=== PATIENT | male | born 1990 | race Two or more races ===

== ENCOUNTER 2022-08-02 17:35 | Inpatient (IN) | payer OTHER, SELFPAY ==
--- OUTSIDE RECORDS SUMMARY | 2022-08-02 17:41 | XMS_ITS | Continuity of Care Document ---
Author Name Unknown Organization [facility] Address [address] [place] [address]- Care Team Providers Care Commercial Lending Assistant Name Role Phone Delia ACOSTA, Lamine Covington Primary Care Physician Encounter [facility] Date(s): 06/21/21 - 07/21/21 [facility] [address] [place] [address]- Allergies, Adverse Reactions, Alerts Substance Reaction Severity Status lisinopril dry cough Active Dust Mild Active Milk Products Nausea and vomiting Persistent Moderate Active cloNIDine confusion Active Immunizations Given and Recorded Vaccine Date Status Refusal Reason influenza virus vaccine, inactivated 03/19/21 Give n influenza virus vaccine, inactivated 12/30/19 Give n influenza virus vaccine, inactivated 1 10/11/11 Gi annia influenza virus vaccine, inactivated 2 12/30/10 Gi annia SARS-CoV-2 (COVID-19) mRNA BNT-162b2 vac 09/10/20 Given SARS-CoV-2 (COVID-19) mRNA BNT-162b2 vac 08/20/20 Given tetanus-diphtheria toxoids (Td) 12/30/19 Given pneumococcal 23-valent vaccine 07/19/11 Given tetanus/diphtheria/pertussis, acel(Tdap) 08/11/09 Given 1Admin Note: VIS 08/31 2Admin Note: flulaval vis given vis date 09/14/2010 Medications amLODIPine 5 mg oral tablet 5 mg, 1, tablet, By Mouth, Daily, Hold if SBP<100mm Hg, # 30 tablet, Refills 1, Tot. Refills 1, Maintenance, 06/09/21 10:32:00 EDT, Route to Pharmacy Electronically, [facility] [place], [place] - [id number], Partial fill upon patient request if... Start Date: 06/09/21 Stop Date: 08/08/21 Status: Ordered benztropine 0.5 mg oral tablet 0.5 mg, 1, tablet, By Mouth, 2 times a day, # 60 tablet, Refills 1, Tot. Refills 1, Maintenance, 06/09/21 10:36:00 EDT, Route to Pharmacy Electronically, [facility] [id number], Partial fill upon patient request if the prescrip... Start Date: 06/09/21 Status: Ordered docusate-senna 50 mg-8.6 mg oral capsule 2 capsule, By Mouth, 2 times a day, # 120 capsule, 1 Refills, Maintenance, 06/09/21 10:36:00 EDT, Capsule, [facility] [id number], Partial fill upon patient request if the prescription is for a schedule II opioid drug., 2 capsu... Start Date: 06/09/21 Status: Ordered gabapentin 600 mg oral tablet 1 tablet = 600 mg, By Mouth, 3 times a day, # 90 tablet, 1 Refills, Maintenance, 06/09/21 10:33:00 EDT, Tablet, [facility] [id number], Partial fill upon patient request if the prescription is for a schedule II opioid drug., 17... Start Date: 06/09/21 Stop Date: 08/08/21 Status: Ordered hydrOXYzine pamoate 50 mg oral capsule = 50 mg, By Mouth, Every 6 hours, PRN Anxiety, # 60 capsule, 1 Refills, Maintenance, 06/09/21 10:36:00 EDT, Capsule, [facility] [id number], Partial fill upon patient request if the prescription is for a schedule II opioid drug... Start Date: 06/09/21 Status: Ordered lamotrigine 25 mg oral tablet 25 mg, 1, tablet, By Mouth, Daily, # 30 tablet, Refills 1, Tot. Refills 1, Maintenance, 06/09/21 10:36:00 EDT, Route to Pharmacy Electronically, [facility] [id number], Partial fill upon patient request if the prescription is f... Start Date: 06/09/21 Status: Ordered loratadine 10 mg oral tablet 10 mg, 1, tablet, By Mouth, Daily, # 30 tablet, Refills 1, Tot. Refills 1, Maintenance, 06/09/21 10:33:00 EDT, Route to Pharmacy Electronically, [facility] [id number], Partial fill upon patient request if the prescription is f... Start Date: 06/09/21 Stop Date: 08/08/21 Status: Ordered losartan 25 mg oral tablet 25 mg, 1, tablet, By Mouth, Daily, Hold if SBP<100mm Hg, # 30 tablet, Refills 1, Tot. Refills 1,Maintenance, 06/09/21 10:33:00 EDT, Route to Pharmacy Electronically, [facility] [id number], Partial fill upon patient request if... Start Date: 06/09/21 Stop Date: 08/08/21 Status: Ordered MetFORMIN (Eqv-Glucophage XR) 500 mg oral tablet, extended release 1 tablet, By Mouth, Daily, for 30 days, # 30 tablet, 1 Refills, Physician Stop 08/08/21 10:34:00 EDT, 06/09/21 10:34:00 EDT, [facility] [id number], 178, cm, 06/09/21 9:53:00 EDT, Height, 140, kg, 05/17/21 19:30:00 EDT, Dry Weight Start Date: 06/09/21 Stop Date: 08/08/21 Status: Ordered Nicotine 2 mg gum = 2 mg, Chew, Every 2 hours, PRN Other, cigarette craving, # 40 each, 0 Refills, Maintenance, 06/09/21 10:36:00 EDT, Gum, [facility], [place] - [id number], Partial fill upon patient request if the prescription is for a schedule II opioid... Start Date: 06/09/21 Status: Ordered OXcarbazepine 150 mg oral tablet 150 mg, 1, tablet, By Mouth, 2 times a day, # 60 tablet, Refills 1, Tot. Refills 1, Maintenance, 06/09/21 10:34:00 EDT, Route to Pharmacy Electronically, [facility] [id number], Partial fill upon patient request if the prescrip... Start Date: 06/09/21 Status: Ordered Protonix 40 mg oral delayed release tablet = 40 mg, By Mouth, Daily before breakfast, # 30 capsule, 1 Refills, Maintenance, 06/09/21 10:35:00 EDT, EC Tablet, 178, cm, 06/09/21 9:53:00 EDT, Height, 140, kg, 05/17/21 19:30:00 EDT, Dry Weight Start Date: 06/09/21 Status: Ordered risperiDONE 3 mg oral tablet 3 mg, 1, tablet, By Mouth, Daily at bedtime, # 30 tablet, Refills 1, Tot. Refills 1, Maintenance, 06/09/21 10:35:00 EDT, Route to Pharmacy Electronically, [facility] [id number], Partial fill upon patient request if the prescri... Start Date: 06/09/21 Stop Date: 08/08/21 Status: Ordered traZODone 50 mg oral tablet 50 mg, 1, tablet, By Mouth, Daily at bedtime, # 30 tablet, Refills 1, Tot. Refills 1, Maintenance, 06/09/21 10:36:00 EDT, Route to Pharmacy Electronically, [place], [place] - [id number], Partial fill upon patient request if the prescr... 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 Repeat EGD in 5 yrs. 2Impression: 1. Mildly enlarged and diffusely echogenic liver most likely represents hepatic steatosis with a small area of focal fatty sparing adjacent to the gallbladder. No definite focal hepatic mass. 2. No sonographic evidence of cholelithiasis or acute cholecystitis. 3. Suboptimal evaluation of the pancreas due to overlying bowel gas. By undersigning and finalizing the report, the attending radiologist has personally reviewed the images and the resident's interpretation and agrees with the description of the findings. Signature Line Dictated By: Catrachita Shah MD Dictated Date/Time: 02/25/11 11:07 a Social History Social History Type Response Smoking Status Never smoker entered on: 10/02/13 Sex
--- OUTSIDE RECORDS SUMMARY | 2022-08-02 17:41 | XMS_ITS | Continuity of Care Document ---
Author Name Unknown Organization [facility] Address [address] [place] [address]- Care Team Providers Care Building Materials Sales Attendant Name Role Phone Delia ACOSTA, Lamine Covington Primary Care Physician Encounter [facility] Date(s): 05/11/22 - 06/10/22 [facility] [address] [place] [address]- Allergies, Adverse Reactions, Alerts Substance Reaction Severity Status lisinopril dry cough Active Dust Mild Active Milk Products Nausea and vomiting Persistent Moderate Active cloNIDine confusion Active Immunizations Given and Recorded Vaccine Date Status Refusal Reason [id number] 12y+ bivalent booster vax 02/07/22 Given influenza virus vaccine, inactivated 02/07/22 Give n influenza virus vaccine, inactivated 03/19/21 Give n [...] flulaval vis given vis date 09/14/2010 Medications docusate sodium 100 mg oral capsule 1 capsule, By Mouth, Daily, # 30 each, 1 Refills, Maintenance, 06/06/22 16:49:00 EDT, [facility] [place], [place] - [id number], 178anu, 06/06/22 16:31:00 EDT, Height, 101.4, kg, 01/12/22 14:14:00 EST, Dry Weight Start Date: 06/06/22 Status: Ordered ferrous fumarate 324 mg oral tablet 1 tablet = 324 mg, By Mouth, Every 48 hours, # 15 tablet, 5 Refills, Maintenance, 06/06/22 16:37:00EDT, [facility] [id number], Partial fill upon patient request if the prescription is for a schedule II opioid drug., 178, cm,... Start Date: 06/06/22 Status: Ordered folic acid 1 mg oral tablet 1, tablet, By Mouth, Daily, # 30 tablet, Refills 5, Tot. Refills 5, Maintenance, 06/06/22 16:49:00 EDT, Route to Pharmacy Electronically, [facility] [id number], 178, cm, 06/06/22 16:31:00 EDT, Height, 101.4, kg, 01/12/22 14:14... Start Date: 06/06/22 Status: Ordered gabapentin 600 mg oral tablet 1 tablet = 600 mg, By Mouth, 3 times a day, # 90 tablet, 5 Refills, Maintenance, 06/06/22 16:41:00 EDT, Tablet, [facility] [id number], Partial fill upon patient request if the prescription is for a schedule II opioid drug., 17... Start Date: 06/06/22 Stop Date: 12/03/22 Status: Ordered loratadine 10 mg oral tablet 10 mg, 1, tablet, By Mouth, Daily, # 30 tablet, Refills 3, Tot. Refills 3, Maintenance, 06/06/22 16:41:00 EDT, Route to Pharmacy Electronically, [facility] [id number], Partial fill upon patient request if the prescription is f... Start Date: 06/06/22 Stop Date: 10/04/22 Status: Ordered MiraLax oral powder for reconstitution = 17 Gm, By Mouth, Daily, dissolve in water before taking, # 527 Gm, 1 Refills, Maintenance, 06/06/22 16:49:00 EDT, REC Powder, [facility] [id number], Partial fill upon patient request if the prescription is for a schedule II... Start Date: 06/06/22 Status: Ordered multivitamin Multiple Vitamins oral tablet 1 tablet, By Mouth, Daily, # 90 tablet, 3 Refills, Maintenance, 06/06/22 16:40:00 EDT, [place], [place] - [id number], Partial fill upon patient request if the prescription is for a schedule II opioid drug., 1 tablet By Mouth Daily, 17... Start Date: 06/06/22 Status: Ordered pantoprazole 40 mg oral delayed release tablet See Instructions, TAKE 1 TABLET BY MOUTH DAILY, # 30 tablet, 2 Refills, Maintenance, 04/26/22 9:32:00 EST, 178, cm, 02/07/22 9:55:00 EST, Height, 101.4, kg, 01/12/22 14:14:00 EST, Dry Weight Start Date: 04/26/22 Status: Ordered prazosin 1 mg oral capsule 1 mg, 1, capsule, By Mouth, Daily at bedtime, # 30 tablet, Refills 0, Maintenance, 06/06/22 16:32:00 EDT, Partial fill upon patient request if the prescription is for a schedule II opioid drug. Start Date: 06/06/22 Status: Ordered risperiDONE 2 mg oral tablet 2 mg, 1, tablet, Daily at bedtime Start Date: 02/07/22 Status: Ordered Sleep pillow for snoring Sleep pillow for snoring, See Instructions, # 1 each, Refills 0, Tot. Refills 0, Maintenance, Dx: Sleep apnea G47.33 duration: lifetime, 06/03/22 16:30:00 EDT, Supply Start Date: 06/03/22 Status: Ordered traZODone 100 mg oral tablet TAKE 1 TABLET BY MOUTH ONCE DAILY AT BEDTIME FOR 7 DAYS Start Date: 02/07/22 Status: Ordered venlafaxine 150 mg oral capsule, extended release 150 mg, 1, capsule, By Mouth, Daily, # 30 capsule, Refills 0, Maintenance, 06/06/22 16:31:00 EDT, Partial fill upon patient request if the prescription is for a schedule II opioid drug. Start Date: 06/06/22 Status: Ordered Problem List Condition Confirmation Course Effective Dates Status Health Status Informant Diabetes mellitus Confirmed Active Esophageal reflux (GERD) Confirmed Active Gastric polyp 1 Confirmed Active Gynecomastia Confirmed Active Hypercholesterolemia Confirmed Active Hypertension Confirmed Active Sleep related hypoxia Confirmed Active Wenckebach Confirmed 2013 Active Morbid obesity with BMI of 45.0-49.9, adult Confirmed Active NAFLD (nonalcoholic fatty liver disease) 2 Confirmed Active Obese class I Confirmed Active Obstructive sleep apnea, Complex sleep apnea Confirmed Active BHN/CCA/Fertilizer Mixer-Tia Jarrett [phone]/Health [facility], active care coordination Confirmed Active Treatment-emergent central sleep apnea Confirmed Active 1On EGD in 03/2020. Repeat EGD [...] Status Never smoker entered on: 10/02/13 Sex Patient Care team information Care Team Personnel Name: Ela Beltrán RN Position: [facility] Nurse Member Role: Primary Care Nurse Name: Alaina Gillette RN Position: [facility] RN Member Role: Primary Care Nurse Name: Kristyn Tapia RN Position: [facility] SN RN Member Role: Primary Care Nurse Name: Lorna Gentile NP Position: [facility] Associate Professional Member Role: Primary Care Nurse Address: Address: [address] [place] [address] Name: Venus Jaramillo RN Position: [facility] RN Member Role: Primary Care Nurse Name: Flor Donnelly RN Position: [facility] RN Member Role: Primary Care Nurse Name: Ruiz Matson RN Position: [facility] RN Member Role: Primary Care Nurse Name: Belle Ames RN Position: [facility] RN Member Role: Primary Care Nurse Name: Alex Rios RN Position: [facility] RN Member Role: Primary Care Nurse Name: Daniel Hernandez III, RN Position: [facility] RN Member Role: Primary Care Nurse Name: Jordi Carter MD Position: [facility] Renal MD Member Role: Lifetime Consulting Physician Address: Address: [address] [facility] [place] [address]- [place] Name: Loren Hamlin RN Position: [facility] RN Member Role: Primary Care Nurse Name: Kenzie Martínez RN, Malia Position: [facility] RN Member Role: Primary Care Nurse Name: Jessica Dia RN Position: [facility] RN Member Role: Primary Care Nurse Name: Lamine Lin MD Position: [facility] Primary Care Physician Member Role: PCP Address: Address: [address] [facility] [place] [address]- [place] Name: Rose Abraham RN Position: [facility] Hospital Signalling And Communications Engineer Member Role: Primary Care Nurse Name: Vinod Botello MD Position: [facility] Psychiatry MD Member Role: Lifetime Consulting Physician Address: Address: [address] [place] [address]- [place] Care Team Related Persons Name: MALIA HARRIS Name: KATHLEEN JACQUES Address: home [address] [place] [address] Name: VIRGIL PARKS Address: home [address] [place] [address] Name: MICHAELA MONTENEGRO Address: home UNKNOWN Name: MIGUEL PUENTES Address: home [address] [place] [address]
--- OUTSIDE RECORDS SUMMARY | 2022-08-02 17:41 | XMS_ITS | Continuity of Care Document ---
Author Name Unknown Organization [facility] ter Address [address] [place] [address]- Care Team Providers Care Driller Hand Name Role Phone Lamine Lin MD Primary Care Physician Encounter [facility] [place]s): 07/25/22 - 07/26/[address] [address]- Encounter Diagnosis Numbness(Final) - 07/26/22 Schizophrenia(Final) - 07/26/22 Abdominal pain(Final) - 07/26/22 Discharge Disposition: Transfer to [facility] Attending Physician: Laureano Aden DO Admitting Physician: Laureano Aden DO Referring Physician: Not on Staff, Referring MD Allergies, Adverse Reactions, Alerts Substance Reaction Severity Status lisinopril dry cough Active Dust Mild Active Milk Products Nausea and vomiting Persistent Moderate Active cloNIDine confusion Active Immunizations Given and Recorded Vaccine Date Status Refusal Reason [id number] 12y+ bivalent booster vax 02/07/22 Given influenza [...] flulaval vis given vis date 09/14/2010 Medications benztropine 1 mg oral tablet TAKE 1 TABLET BY MOUTH two (2) times a day Start Date: 07/26/22 Status: Ordered docusate sodium 100 mg oral capsule 1 capsule, By Mouth, Daily, # 30 each, 1 Refills, Maintenance, 06/06/22 16:49:00 EDT, [facility] [id number], 178, cm, 06/06/22 16:31:00 EDT, Height, 101.4, kg, 01/12/22 14:14:00 EST, Dry Weight Start Date: 06/06/22 Status: Ordered ferrous fumarate 324 mg oral tablet 1 tablet = 324 mg, By Mouth, Every 48 hours, # 15 tablet, 5 Refills, Maintenance, 06/06/22 16:37:00EDT, [facility] [id number], Partial fill upon patient request if the prescription is for a schedule II opioid drug., 178, cm,... Start Date: 06/06/22 Status: Ordered folic acid 1 mg oral tablet 1, tablet, By Mouth, Daily, # 30 tablet, Refills 5, Tot. Refills 5, Maintenance, 06/06/22 16:49:00 EDT, Route to Pharmacy Electronically, [facility], [place] - [id number], 178, cm, 06/06/22 16:31:00 EDT, Height, 101.4, kg, 01/12/22 14:14... Start Date: 06/06/22 Status: Ordered gabapentin 100 mg oral capsule TAKE 1 CAPSULE BY MOUTH 3 (THREE) TIMES A DAY Start Date: 07/26/22 Status: Ordered gabapentin 100 mg oral capsule 100 mg, Capsule, By Mouth, 07/26/22 9:00:00 EDT Start Date: 07/26/22 Stop Date: 07/26/22 Status: Completed gabapentin 600 mg oral tablet 1 tablet = 600 mg, By Mouth, 3 times a day, # 90 tablet, 5 Refills, Maintenance, 06/06/22 16:41:00 EDT, Tablet, [place], [place] - [id number], Partial fill upon patient request if the prescription is for a schedule II opioid drug., 17... Start Date: 06/06/22 Stop Date: 12/03/22 Status: Ordered hydrOXYzine pamoate 50 mg oral capsule TAKE 1 CAPSULE BY MOUTH EVERY 6 HOURS NEEDED FOR ANXIETY Start Date: 07/26/22 Status: Ordered loratadine 10 mg oral tablet 10 mg, 1, tablet, By Mouth, Daily, # 30 tablet, Refills 3, Tot. Refills 3, Maintenance, 06/06/22 16:41:00 EDT, Route to Pharmacy Electronically, [facility] [id number], Partial fill upon patient request if the prescription is f... Start Date: 06/06/22 Stop Date: 10/04/22 Status: Ordered MetFORMIN (Eqv-Glucophage XR) 500 mg oral tablet, extended release TAKE 1 TABLET BY MOUTH ONCE DAILY Start Date: 07/26/22 Status: Ordered MiraLax oral powder for reconstitution = 17 Gm, By Mouth, Daily, dissolve in water before taking, # 527 Gm, 1 Refills, Maintenance, 06/06/22 16:49:00 EDT, REC Powder, [facility] [id number], Partial fill upon patient request if the prescription is for a schedule II... Start Date: 06/06/22 Status: Ordered multivitamin Multiple Vitamins oral tablet 1 tablet, By Mouth, Daily, # 90 tablet, 3 Refills, Maintenance, 06/06/22 16:40:00 EDT, [facility] [id number], Partial fill upon patient request if the prescription is for a schedule II opioid drug., 1 tablet By Mouth Daily, 17... Start Date: 06/06/22 Status: Ordered pantoprazole 40 mg oral delayed release tablet TAKE 1 TABLET BY MOUTH ONCE DAILY Start Date: 07/26/22 Status: Ordered pantoprazole 40 mg oral delayed release tablet 1 tablet, By Mouth, Daily, # 30 tablet, 2 Refills, Maintenance, 07/24/22 21:32:00 EDT, 178, cm, 06/06/22 16:31:00 EDT, Height, 101.4, kg, 01/12/22 14:14:00 EST, Dry Weight Start Date: 07/24/22 Status: Ordered prazosin 1 mg oral capsule 1 mg, 1, capsule, By Mouth, Daily at bedtime, # 30 tablet, Refills 0, Maintenance, 06/06/22 16:32:00 EDT, Partial fill upon patient request if the prescription is for a schedule II opioid drug. Start Date: 06/06/22 Status: Ordered prazosin 2 mg oral capsule TAKE 1 CAPSULE BY MOUTH ONCE DAILY AT BEDTIME Start Date: 07/26/22 Status: Ordered risperiDONE 2 mg oral tablet TAKE 1 TABLET BY MOUTH ONCE DAILY Start Date: 07/26/22 Status: Ordered risperiDONE 2 mg oral tablet [...] 7 DAYS Start Date: 02/07/22 Status: Ordered traZODone 150 mg oral tablet TAKE 1 TABLET BY MOUTH ONCE DAILY AT BEDTIME Start Date: 07/26/22 Status: Ordered venlafaxine 150 mg oral capsule, extended release 150 mg, 1, capsule, By Mouth, Daily, # 30 capsule, Refills 0, Maintenance, 06/06/22 16:31:00 EDT, Partial fill upon patient request if the prescription is for a schedule II opioid drug. Start Date: 06/06/22 Status: Ordered venlafaxine 75 mg oral capsule, extended release TAKE 3 CAPSULES BY MOUTH ONCE DAILY Start Date: 07/26/22 Status: Ordered Problem List Condition Confirmation Course [...] sleep apnea, Complex sleep apnea Confirmed Active [facility]/CCA/Gas Leak Tester-Tia Jarrett [phone]/Health shelter, active care coordination Confirmed Active Treatment-emergent central [...] Shah MD Dictated Date/Time: 02/25/11 11:07 a Vital Signs Most recent to oldest [Reference Range]: 1 2 3 Height 179 cm (07/26/22 5:17 AM) 179 cm (07/26/22 1:10 AM) 179 cm (07/25/22 8:26 PM) Oxygen Saturation [94-100 %] 100 % (07/26/22 10:55 AM) 100 % (07/26/22 7:35 AM) 100 % (07/26/22 5:17 AM) Pulse Rate [55-90 bpm] 108 bpm *H* (07/26/22 10:55 AM) 77 bpm (07/26/22 7:35 AM) 78 bpm (07/26/22 5:17 AM) Blood Pressure [90-138/55-84 mm Hg] 147/92mm Hg *H* (07/26/22 10:55 AM) 126/99mm Hg (07/26/22 7:35 AM) 134/88mm Hg (07/26/22 5:17 AM) Respiratory Rate [16-30 br/min] 18 br/min (07/26/22 10:55 AM) 17 br/min (07/26/22 7:50 AM) 18 br/min (07/26/22 7:35 AM) Temperature [96.8-100.4 DegF] 98.1 DegF (07/26/22 7:35 AM) 98.3 DegF (07/26/22 1:10 AM) 98.4 DegF (07/25/22 8:26 PM) Mode of Delivery (Oxygen) Room air (07/26/22 10:55 AM) Room air (07/26/22 7:35 AM) Room air (07/26/22 5:17 AM) Blood pressure sites Arm, left (07/26/22 10:55 AM) Arm, left (07/26/22 7:35 AM) Arm, left (07/26/22 5:17 AM) Temperature Route Oral (07/26/22 7:35 AM) Oral (07/26/22 1:10 AM) Oral (07/25/22 8:26 PM) Dry Weight Obtained Via Bed scale (07/25/22 8:26 PM) Social History Social History Type Response Smoking Status Never smoker entered on: 10/02/13 Sex Patient Care team information Care Team Personnel Name: Ela Beltrán RN Position: [facility] AMB Nurse Member Role: Primary Care Nurse Name: Alaina Gillette RN Position: [facility] RN Member Role: Primary Care Nurse Name: Kristyn Tapia RN Position: [facility] SN RN Member Role: Primary Care Nurse Name: Lorna Gentile NP Position: [facility] Associate Professional Member Role: Primary Care Nurse Address: Address: [address] [place] [address]- [place] Name: Venus Jaramillo RN Position: [facility] RN Member Role: Primary Care Nurse Name: Flor Donnelly RN Position: [facility] RN Member Role: Primary Care Nurse Name: Ruiz Matson RN Position: [facility] RN Member Role: Primary Care Nurse Name: Belle Ames RN Position: [facility] RN Member Role: Primary Care Nurse Name: Alex Rios RN Position: [facility] RN Member Role: Primary Care Nurse Name: Daniel Hernandez III, RN Position: [facility] RN Member Role: Primary Care Nurse Name: Jordi Carter MD Position: [facility] Renal MD Member Role: Lifetime Consulting Physician Address: Address: [address] [place] [address] [address] [facility], [place] [address]- [place] Name: Loren Hamlin RN Position: [facility] RN Member Role: Primary Care Nurse Name: Malia Wise RN Position: [facility] RN Member Role: Primary Care Nurse Name: Jessica Dia RN Position: [facility] RN Member Role: Primary Care Nurse Name: Lamine Lin MD Position: [facility] Physician - Primary Care Member Role: PCP Address: Address: [address] [place] [address] [place] [address]- [place] Name: Rose Abraham RN Position: [facility] Hospital Floor Surfacer Member Role: Primary Care Nurse Name: Vinod Botello MD Position: [facility] Physician - Behavioral Health Member Role: Lifetime Consulting Physician Address: Address: [address] [place] [address]- Name: *[facility], ED Attending Position: [facility] ED Attendings Patient Name: Barry Lucero Position: [facility] ED TA [facility] Name: Olga Cade RN Position: [facility] ED RN W/OE and Tasks Member Role: Patient Care Provider Name: Ava Robbins DO Position: [facility] ED Medicine MD Member Role: ED Attending Physician Address: Address: [address] [place] [address] [place] [address]- Care Team Related Persons Name: MALIA HARRIS Name: KATHLEEN JACQUES Address: home [address] [place] [address] Name: VIRGIL PARKS Address: home [address] [place] [address] Name: MICHAELA MONTENEGRO Address: home UNKNOWN Name: MIGUEL PUENTES Address: home [address] [place] [address]
--- OUTSIDE RECORDS SUMMARY | 2022-08-02 17:41 | XMS_ITS | Continuity of Care Document ---
Author Name Unknown Organization [facility] Address [address] [place] [address]- Care Team Providers Care Frickertron Checker Name Role Phone Delia ACOSTA, Lamine Covington Primary Care Physician [phone] Encounter [facility] Date(s): 10/01/19 - 10/31/19 [facility] [address] [place] [address]- [facility] Allergies, Adverse Reactions, Alerts Substance Reaction Severity Status lisinopril dry cough Active cloNIDine confusion Active Immunizations Given and Recorded Vaccine Date Status Refusal Reason influenza virus vaccine, inactivated 1 10/11/11 Gi annia influenza virus vaccine, inactivated 2 12/30/10 Gi annia pneumococcal 23-valent vaccine 07/19/11 Given tetanus/diphtheria/pertussis, acel(Tdap) 08/11/09 Given 1Admin Note: VIS 08/31 2Admin Note: flulaval vis given vis date 09/14/2010 Medications acetaminophen 325 mg oral tablet 650 mg, By Mouth, Every 4 hours, PRN, Refills 0, Maintenance, Pain , Mild, 04/04/18 9:07:07 EST Start Date: 04/04/18 Status: Ordered albuterol CFC free 90 mcg/inh inhalation aerosol 2, puffs, Inhalation, Every 4 hours, PRN, # 1 each, Refills 0, Tot. Refills 0, Maintenance, 10/15/19 15:33:00 EDT, Aerosol, Route to Pharmacy Electronically, [id number], [facility] [place], [place] - [id number], 177, cm... Start Date: 10/15/19 Status: Ordered amLODIPine 5 mg oral tablet 5 mg, 1, tablet, By Mouth, Daily, # 30 tablet, Refills 11, Tot. Refills 11, Maintenance, 05/09/19 8:48:00 EDT, Route to Pharmacy Electronically, [place], [place] -, 177, cm, 04/02/2009:47:00 EST, Height, 135, kg, 03/30/18 19:13:00 ES... Start Date: 05/09/19 Status: Ordered Coricidin HBP Chest Congestion & Cough 10 mg-200 mg oral capsule 1 capsule, By Mouth, Every 4 hours, PRN for cough, not to exceed 6 doses/day. [place] label, # 60 capsule, 0 Refills, Maintenance, 10/15/19 15:34:00 EDT, Capsule, [place], [place] - [id number], 1 capsule By Mouth Every 4 hours,PRN:for... Start Date: 10/15/19 Status: Ordered Depakote 500 mg oral enteric coated tablet 2 tablet = 1,000 mg, By Mouth, 2 times a day, # 120 tablet, 3 Refills, Maintenance, 04/19/18 15:29:27 EST, EC Tablet Start Date: 04/19/18 Stop Date: 08/17/18 Status: Ordered Flonase 50 mcg/inh nasal spray 2 sprays, Nares, Both, Daily in AM, # 16 Gm, 3 Refills, Maintenance, 08/28/19 8:53:00 EDT, [place], [place], [place] -, 2 sprays Nares, Both Daily in AM, 177, cm, 07/29/19 13:56:00 EDT, Height, 135, kg, 03/30/18 19:13:00 EST, Dry Weight Start Date: 08/28/19 Status: Ordered Freestyle Lite Lancets See Instructions, # 100 each, Refills 1, Tot. Refills 1, Maintenance, use1 x dailiy to check glucose for Type 2 Diabetes Mellitus, E11.9, 10/02/19 17:50:00 EDT, Supply, 177, cm, 07/29/19 13:56:00 EDT, Height, 135, kg, 03/30/18 19:13:00 EST, Dry Weight Start Date: 10/02/19 Stop Date: 12/01/19 Status: Ordered Freestyle Lite Monitor See Instructions, # 1 each, Refills 0, Tot. Refills 0, Maintenance, use dailiy to check glucose forType 2 Diabetes Mellitus, E11.9, 10/02/19 17:50:00 EDT, Supply, 177, cm, 07/29/19 13:56:00 EDT, Height, 135, kg, 03/30/18 19:13:00 EST, Dry Weight Start Date: 10/02/19 Stop Date: 11/01/19 Status: Ordered Freestyle Lite Test Strips See Instructions, # 100 each, Refills 1, Tot. Refills 1, Maintenance, 1x per day to check glucose for Type 2 Diabetes Mellitus, E11.9, 10/02/19 17:50:00 EDT, Supply, 177, cm, 07/29/19 13:56:00 EDT, Height, 135, kg, 03/30/18 19:13:00 EST, Dry Weight Start Date: 10/02/19 Stop Date: 12/01/19 Status: Ordered metFORMIN 500 mg oral tablet, extended release See Instructions, TAKE ONE TABLET BY MOUTH DAILY, # 30 tablet, 5 Refills, Soft Stop, 05/09/19 8:49:00 EDT, [place], [place] -, 177, cm, 04/02/19 10:47:00 EST, Height, 135, kg, 03/30/18 19:13:00 EST, Dry Weight Start Date: 05/09/19 Status: Ordered Metoprolol Tartrate 25 mg oral tablet See Instructions, TAKE 1 & 1/2 TABLETS BY MOUTH 2 (two) times a day, # 90 tablet, 3 Refills, Soft Stop, 05/09/19 8:49:00 EDT, [place], [place] -, 177, cm, 04/02/19 10:47:00 EST, Height, 135, kg, 03/30/18 19:13:00 EST, Dry Weight Start Date: 05/09/19 Status: Ordered omeprazole 20 mg oral enteric coated capsule 1 capsule = 20 mg, By Mouth, 2 times a day, # 60 capsule, 3 Refills, Soft Stop, 07/09/19 10:02:00 EDT, [place], [place] -, Dose increased 05/09/19. Label in [place]., 177, cm, 04/02/19 10:47:00 EST, Height, 135, kg, 03/30/18 19:13:00... Start Date: 07/09/19 Status: Ordered simvastatin 10 mg oral tablet See Instructions, TAKE ONE TABLET BY MOUTH DAILY AT BEDTIME, # 30 tablet, Refills 11, Tot. Refills 11, Soft Stop, 05/09/19 8:49:00 EDT, Instructions Replace Required Details, Route to Pharmacy Electronically, [facility] - [place], [place] -, 177,... Start Date: 05/09/19 Status: Ordered Problem List Condition Effective Dates Status Health Status Inform ant Esophageal reflux (GERD)(Confirmed) Active Gynecomastia(Confirmed) Active Hypercholesterolemia(Confirmed) Active Hypertension(Confirmed) Active Impaired glucose tolerance(Confirmed) Active Morbid obesity with BMI of 4 5.0-49.9, adult(Confirmed) Active NAFLD (nonalcoholic fatty li evelia disease)(Confirmed) 1 Active Obstructive sleep apnea(Confirmed) Active 1Impression: 1. Mildly enlarged and diffusely echogenic liver [...]
--- OUTSIDE RECORDS SUMMARY | 2022-08-02 17:41 | XMS_ITS | Continuity of Care Document ---
Author Name Unknown Organization [facility] ter Address [address] [place] [address]- Care Team Providers Care Director Of Hotel Operations Name Role Phone Lamine Lin MD Primary Care Physician [phone] Encounter [facility] Date(s): 05/02/21 - 05/03/[address] [address]- Encounter Diagnosis Suicide attempt(Final) - 05/03/21 Discharge Disposition: Transferred to an intermediate care faci Attending Physician: Katerina Leblanc DO Admitting Physician: Katerina Leblanc DO Referring Physician: Not on Staff, Referring [...] if SBP<100mm Hg, # 30 tablet, Refills 0, Tot. Refills 0, Maintenance, 03/29/21 14:20:00 EST, Route to Pharmacy Electronically, [facility] [id number], Partial fill upon patient request if... Start Date: 03/29/21 Stop Date: 04/28/21 Status: Ordered amLODIPine 5 mg oral tablet 5 mg, Tablet, By Mouth, 05/03/21 9:00:00 EDT Start Date: 05/03/21 Stop Date: 05/03/21 Status: Completed chlorthalidone 25 mg oral tablet 12.5 mg, 0.5, tablet, By Mouth, Daily, # 15 tablet, Refills 0, Tot. Refills 0, Maintenance, 03/29/21 14:20:00 EST, Route to Pharmacy Electronically, [facility] [id number], Partial fill upon patient request if the prescription... Start Date: 03/29/21 Stop Date: 04/28/21 Status: Ordered diclofenac 1% topical gel 1 application, Topically, 4 times a day, # 100 Gm, 0 Refills, Maintenance, 03/29/21 14:20:00 EST, Gel, [facility] [id number], Partial fill upon patient request if the prescription is for a schedule II opioid drug., 178, cm, 02... Start Date: 03/29/21 Stop Date: 04/12/21 Status: Ordered docusate sodium 100 mg oral capsule 100 mg, 1, capsule, By Mouth, Daily, # 30 capsule, Refills 0, Tot. Refills 0, Maintenance, 03/29/2213:21:00 EST, Route to Pharmacy Electronically, [facility] [id number], Partial fill upon patient request if the prescription i... Start Date: 03/29/21 Stop Date: 04/28/21 Status: Ordered Flonase 50 mcg/inh nasal spray 2 sprays = 100 mcg, Nares, Both, Daily, # 16 Gm, 0 Refills, Maintenance, 03/29/21 14:21:00 EST, Nasal [place], [facility] [id number], Partial fill upon patient request if the prescription is for a schedule II opioid drug., 2 spr... Start Date: 03/29/21 Stop Date: 04/12/21 Status: Ordered folic acid 1 mg oral tablet 1 mg, 1, tablet, By Mouth, Daily, # 30 tablet, Refills 0, Tot. Refills 0, Maintenance, 03/29/21 14:21:00 EST, Route to Pharmacy Electronically, [facility] [id number], Partialfill upon patient request if the prescription is fo... Start Date: 03/29/21 Stop Date: 04/28/21 Status: Ordered gabapentin 300 mg oral capsule 600 mg, Capsule, By Mouth, 05/03/21 15:00:00 EDT Start Date: 05/03/21 Stop Date: 05/03/21 Status: Completed gabapentin 600 mg oral tablet 1 tablet = 600 mg, By Mouth, 3 times a day, # 90 tablet, 0 Refills, Maintenance, 03/29/21 14:25:00 EST, Tablet, [facility] [id number], Partial fill upon patient request if the prescription is for a schedule II opioid drug., 17... Start Date: 03/29/21 Stop Date: 04/28/21 Status: Ordered lidocaine 5% topical film 1 film, Topically, Daily, knee pain, # 30 film, 0 Refills, Maintenance, 03/29/21 14:22:00 EST, [place], [facility] [id number], Partial fill upon patient request if the prescription is for a schedule II opioid drug., 1 film Topic... Start Date: 03/29/21 Stop Date: 04/28/21 Status: Ordered loratadine 10 mg oral tablet 10 mg, 1, tablet, By Mouth, Daily, # 30 tablet, Refills 0, Tot. Refills 0, Maintenance, 03/29/21 14:21:00 EST, Route to Pharmacy Electronically, [facility] [id number], Partial fill upon patient request if the prescription is f... Start Date: 03/29/21 Stop Date: 04/28/21 Status: Ordered losartan 25 mg oral tablet 25 mg, 1, tablet, By Mouth, Daily, Hold if SBP<100mm Hg, # 30 tablet, Refills 0, Tot. Refills 0,Maintenance, 03/29/21 14:21:00 EST, Route to Pharmacy Electronically, [facility] [id number], Partial fill upon patient request if... Start Date: 03/29/21 Stop Date: 04/28/21 Status: Ordered MetFORMIN (Eqv-Glucophage XR) 500 mg oral tablet, extended release 1 tablet, By Mouth, Daily, for 30 days, # 30 tablet, 11 Refills, Physician Stop 03/24/22 14:21:00 EST, 03/29/21 14:21:00 EST, [facility] [id number], 178, cm, 03/29/21 9:32:00EST, Height, 152.6, kg, 03/18/21 22:03:00 EST, Dry... Start Date: 03/29/21 Stop Date: 03/24/22 Status: Ordered OXcarbazepine 300 mg oral tablet 300 mg, 1, tablet, By Mouth, 2 times a day, # 60 tablet, Refills 0, Tot. Refills 0, Maintenance, 03/29/21 14:21:00 EST, Route to Pharmacy Electronically, [facility] [id number], Partial fill upon patient request if the prescrip... Start Date: 03/29/21 Stop Date: 04/28/21 Status: Ordered pantoprazole 40 mg oral delayed release tablet See Instructions, TAKE ONE TABLET BY MOUTH EVERY DAY, # 30 tablet, 1 Refills, Maintenance, 03/29/2213:20:00 EST, 178, cm, 03/29/21 9:32:00 EST, Height, 152.6, kg, 03/18/21 22:03:00 EST, Dry Weight Start Date: 03/29/21 Status: Ordered risperiDONE 2 mg oral tablet 2 mg, 1, tablet, By Mouth, Daily, # 30 tablet, Refills 0, Tot. Refills 0, Maintenance, 03/29/21 14:25:00 EST, Route to Pharmacy Electronically, [facility] [id number], Partialfill upon patient request if the prescription is fo... Start Date: 03/29/21 Stop Date: 04/28/21 Status: Ordered risperiDONE 3 mg oral tablet 3 mg, 1, tablet, By Mouth, Daily at bedtime, # 30 tablet, Refills 0, Tot. Refills 0, Maintenance, 03/29/21 14:26:00 EST, Route to Pharmacy Electronically, [facility] [place], [place] - [id number], Partial fill upon patient request if the prescri... 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 Morbid obesity with BMI of 4 5.0-49.9, adult(Confirmed) Active NAFLD (nonalcoholic fatty li evelia disease)(Confirmed) 2 Active Obstructive sleep apnea, Com plex sleep apnea(Confirmed) Active BHN/CCA/Community Support Associate-Remedios MárquezEzojbmz-[phone]/Health jail, active care coordination(Confirmed) Active Severe obesity(Confirmed) Active [...] to oldest [Reference Range]: 1 2 3 Oxygen Saturation [94-100 %] 97 % (05/03/21 6:49 PM) 98 % (05/03/21 2:13 PM) 95 % (05/03/21 7:47 AM) Pulse Rate [55-90 bpm] 75 bpm (05/03/21 6:49 PM) 76 bpm (05/03/21 2:13 PM) 75 bpm (05/03/21 7:47 AM) Blood Pressure [90-138/55-84 mm Hg] 141/90mm Hg *H* (3/14/22 6:49 PM) 128/76mm Hg (05/03/21 2:13 PM) 127/79mm Hg (05/03/21 8:24 AM) Respiratory Rate [16-30 br/min] 16 br/min (05/03/21 6:49 PM) 16 br/min (05/03/21 4:10 PM) 16 br/min (05/03/21 3:10 PM) Temperature [96.8-100.4 DegF] 97.5 DegF (05/03/21 6:49 PM) 97.9 DegF (05/03/21 2:13 PM) 97.8 DegF (05/03/21 7:47 AM) Liters per Minute 1 L/min (05/02/21 12:46 PM) Mode of Delivery (Oxygen) Room air (05/03/21 6:49 PM) Room air (05/03/21 2:13 PM) Room air (05/03/21 7:47 AM) Temperature Route Oral (05/03/21 6:49 PM) Oral (05/03/21 2:13 PM) Oral (05/03/21 7:47 AM) Social History Social History Type Response Smoking Status Never smoker entered on: 10/02/13 Sex
--- OUTSIDE RECORDS SUMMARY | 2022-08-02 17:41 | XMS_ITS | Continuity of Care Document ---
Author Name Unknown Organization [facility] Address [address] [place] [address]- Care Team Providers Care Hemodialysis Charge Nurse Name Role Phone Delia ACOSTA, Lamine Covington Primary Care Physician [facility] Date[facility]s): 06/03/20 - 07/22/20 [facility] [address], [place] [address] Attending Physician: Lamine Lin MD Admitting Physician: Lamine Lin MD Allergies, Adverse Reactions, Alerts Substance Reaction Severity Status lisinopril dry cough Active cloNIDine confusion Active Immunizations Given and Recorded Vaccine Date Status Refusal Reason tetanus-diphtheria toxoids (Td) 12/30/19 Given influenza virus vaccine, inactivated 12/30/19 Give n [...] each, Refills 0, Tot. Refills 0, Maintenance, 01/02/20 18:13:00 EST, Aerosol, Route to Pharmacy Electronically, [id number], [place], [place] - [id number], 177, cm... Start Date: 01/02/20 Status: Ordered amLODIPine 5 mg oral tablet 5 mg, 1, tablet, By Mouth, Daily, # 30 tablet, Refills 11, Tot. Refills 11, Maintenance, 02/03/20 16:45:00 EST, Route to Pharmacy Electronically, [facility], [facility] [id number], 178, cm, 01/28/20 6:28:00 EST, Height, 158, kg, 01/07/20... Start Date: 02/03/20 Status: Ordered benztropine 1 mg oral tablet 1 mg, 1, tablet, Daily at bedtime, via psychiatry Dr Andres Ferro, Refills 0, Maintenance, 12/18/19 9:44:00 EDT Start Date: 12/18/19 Status: Ordered cetirizine 10 mg oral tablet 1 tablet = 10 mg, By Mouth, Daily, # 30 tablet, 5 Refills, Maintenance, 07/01/20 9:26:00 EDT, Tablet, [facility], [facility] [id number], Label in Burkinan., 177.9, cm, 04/16/20 13:38:00 EST, Height, 153.2, kg, 03/16/20 12:24:00 EST, Dry We... Start Date: 07/01/20 Status: Ordered chlorthalidone 25 mg oral tablet 12.5 mg, 0.5, tablet, By Mouth, Daily, # 15 tablet, Refills 5, Tot. Refills 5, Maintenance, 02/04/20 15:34:00 EST, Route to Pharmacy Electronically, [facility], [facility] [id number], Partial fill upon patient request if the prescription... Start Date: 02/04/20 Status: Ordered divalproex sodium 500 mg oral tablet, extended release 2 tablet = 1,000 mg, Daily at bedtime, via psychiatry Dr Andres Ferro, 0 Refills, Maintenance, 12/18/19 9:44:00 EDT Start Date: 12/18/19 Status: Ordered Flonase 50 mcg/inh nasal spray 1 sprays, Nares, Both, 2 times a day, # 9.9 mL, 0 Refills, Maintenance, 02/24/20 11:15:00 EST, [place], [facility], [place] - [id number], 1 sprays Nares, Both 2 times a day, 178, cm, 02/04/20 15:21:00 EST, Height, 158, kg, 01/07/20 14:48:0... Start Date: 02/24/20 Status: Ordered Flovent Diskus 100 mcg/inh inhalation powder 1 puffs, Inhalation, 2 times a day, # 60 each, 0 Refills, Maintenance, 03/03/20 10:49:00 EST, Powder, [facility], [place] - [id number], Partial fill upon patient request if the prescription is for a schedule II opioid drug., 1 puffs Inha... Start Date: 03/03/20 Status: Ordered gabapentin 600 mg oral tablet 1 tablet = 600 mg, By Mouth, 3 times a day, # 90 tablet, 0 Refills, Maintenance, 07/17/20 14:13:00 EDT, Tablet, [place], [place] - [id number], Partial fill upon patient request if the prescription is for a schedule II opioid drug., 17... Start Date: 07/17/20 Status: Ordered GuaiFENesin DM 20 mg-200 mg/10 mL oral liquid 10 mL, By Mouth, Every 4 hours, PRN as needed for cough, not to exceed 6 doses/day, # 120 mL, 0 Refills, Maintenance, 03/03/20 11:05:00 EST, Liquid, [facility], [place] - [id number], Partial fill upon patient request if the prescription... Start Date: 03/03/20 Status: Ordered metFORMIN 500 mg oral tablet, extended release 1 tablet = 500 mg, By Mouth, Daily, # 30 tablet, 11 Refills, Maintenance, 02/03/20 16:44:00 EST, ERTablet, [facility], [place] - [id number], Partial fill upon patient request if the prescription is for a schedule II opioid drug., 178, c... Start Date: 02/03/20 Status: Ordered olanzapine 15 mg oral tablet 1 tablet = 15 mg, By Mouth, Daily at bedtime, via psychiatry Dr Andres Ferro, 0 Refills, Maintenance, 12/18/19 9:44:00 EDT Start Date: 12/18/19 Status: Ordered olanzapine 5 mg oral tablet 5 mg, 1, tablet, By Mouth, Daily in AM, # 30 tablet, Refills 0, Tot. Refills 0, Maintenance, 01/28/20 9:40:00 EST, Route to Pharmacy Electronically, [facility], Partial fill upon patient request if the prescription is for a schedule II o... Start Date: 01/28/20 Status: Ordered omeprazole 20 mg oral enteric coated capsule 1 capsule = 20 mg, By Mouth, 2 times a day, # 60 capsule, 2 Refills, Soft Stop, 07/01/20 9:26:00 EDT, [facility] [place], [place] - [id number], Label in Burkinan, 177.9, cm, 04/16/20 13:38:00 EST, Height, 153.2, kg, 03/16/20 12:24:00 EST, Dry Weight Start Date: 07/01/20 Status: Ordered wedge pillows wedge pillows, See Instructions, # 2 each, Refills 0, Tot. Refills 0, Maintenance, use 1 pillow to elevate head and 1 pillow to elevate left leg duration: lifetime dx: ESHA, SOB, LEFT LEG PAIN LEFT LEG SWELLING G46.33,RO6.2.M79.605,R22.42, 06/0... 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 Mildly enlarged and diffusely [...]
--- OUTSIDE RECORDS SUMMARY | 2022-08-02 17:41 | XMS_ITS | Continuity of Care Document ---
Author Name Unknown Organization [facility] Address [address] [place] [address]- Care Team Providers Care Etl Programmer Name Role Phone Lamine Lin MD Primary Care Physician Encounter [facility] [place] Date(s): 04/28/21 - 06/02/21 [facility] [address] [place] [address]- Attending Physician: Not on Staff, Attending MD Referring Physician: Lamine Lin MD Allergies, Adverse Reactions, [...] tablet, Refills 0, Tot. Refills 0, Maintenance, 05/17/21 23:47:00 EDT, Route to Pharmacy Electronically, [facility] [place], [place] - [id number], Partial fill upon patient request if... Start Date: 05/17/21 Stop Date: 06/16/21 Status: Ordered chlorthalidone 25 mg oral tablet 12.5 mg, 0.5, tablet, By Mouth, Daily, # 15 tablet, Refills 0, Tot. Refills 0, Maintenance, 05/17/21 23:47:00 EDT, Route to Pharmacy Electronically, [facility] [id number], Partial fill upon patient request if the prescription... Start Date: 05/17/21 Stop Date: 06/16/21 Status: Ordered diclofenac 1% topical gel 1 application, Topically, 4 times a day, # 100 Gm, 0 Refills, Maintenance, 05/17/21 23:47:00 EDT, Gel, [facility] [id number], Partial fill upon patient request if the prescription is for a schedule II opioid drug., 179, cm, 03... Start Date: 05/17/21 Stop Date: 05/31/21 Status: Ordered docusate sodium 100 mg oral capsule 100 mg, 1, capsule, By Mouth, Daily, # 30 capsule, Refills 0, Tot. Refills 0, Maintenance, 05/17/2222:47:00 EDT, Route to Pharmacy Electronically, [facility] [id number], Partial fill upon patient request if the prescription i... Start Date: 05/17/21 Stop Date: 06/16/21 Status: Ordered Flonase 50 mcg/inh nasal spray 2 sprays = 100 mcg, Nares, Both, Daily, # 16 Gm, 0 Refills, Maintenance, 05/17/21 23:47:00 EDT, Nasal Soph[place], [facility] [id number], Partial fill upon patient request if the prescription is for a schedule II opioid drug., 2 spr... Start Date: 05/17/21 Stop Date: 05/31/21 Status: Ordered folic acid 1 mg oral tablet 1 mg, 1, tablet, By Mouth, Daily, # 30 tablet, Refills 0, Tot. Refills 0, Maintenance, 05/17/21 23:47:00 EDT, Route to Pharmacy Electronically, [facility] [id number], Partialfill upon patient request if the prescription is fo... Start Date: 05/17/21 Stop Date: 06/16/21 Status: Ordered gabapentin 600 mg oral tablet 1 tablet = 600 mg, By Mouth, 3 times a day, # 90 tablet, 0 Refills, Maintenance, 05/17/21 23:47:00 EDT, Tablet, [facility] [id number], Partial fill upon patient request if the prescription is for a schedule II opioid drug., 17... Start Date: 05/17/21 Stop Date: 06/16/21 Status: Ordered lidocaine 5% topical film 1 film, Topically, Daily, knee pain, # 30 film, 0 Refills, Maintenance, 05/17/21 23:46:00 EDT, [place], [facility] [id number], Partial fill upon patient request if the prescription is for a schedule II opioid drug., 1 film Topic... Start Date: 05/17/21 Stop Date: 06/16/21 Status: Ordered loratadine 10 mg oral tablet 10 mg, 1, tablet, By Mouth, Daily, # 30 tablet, Refills 0, Tot. Refills 0, Maintenance, 05/17/21 23:46:00 EDT, Route to Pharmacy Electronically, [facility] [id number], Partial fill upon patient request if the prescription is f... Start Date: 05/17/21 Stop Date: 06/16/21 Status: Ordered losartan 25 mg oral tablet 25 mg, 1, tablet, By Mouth, Daily, Hold if SBP<100mm Hg, # 30 tablet, Refills 0, Tot. Refills 0,Maintenance, 03/29/21 14:21:00 EST, Route to Pharmacy Electronically, [facility] [id number], Partial fill upon patient request if... Start Date: 03/29/21 Stop Date: 04/28/21 Status: Ordered MetFORMIN (Eqv-Glucophage XR) 500 mg oral tablet, extended release 1 tablet, By Mouth, Daily, for 30 days, # 30 tablet, 11 Refills, Physician Stop 05/12/22 23:46:00 EDT, 05/17/21 23:46:00 EDT, [facility] [id number], 179, cm, 05/17/21 19:30:00 EDT, Height, 140, kg, 05/17/21 19:30:00 EDT, Dry W... Start Date: 05/17/21 Stop Date: 05/12/22 Status: Ordered OXcarbazepine 300 mg oral tablet 300 mg, 1, tablet, By Mouth, 2 times a day, # 60 tablet, Refills 0, Tot. Refills 0, Maintenance, 05/17/21 23:45:00 EDT, Route to Pharmacy Electronically, [facility] [id number], Partial fill upon patient request if the prescrip... Start Date: 05/17/21 Stop Date: 06/16/21 Status: Ordered pantoprazole 40 mg oral delayed release tablet See Instructions, TAKE ONE TABLET BY MOUTH EVERY DAY, # 30 tablet, 1 Refills, Maintenance, 05/17/2222:45:00 EDT, 179, cm, 05/17/21 19:30:00 EDT, Height, 140, kg, 05/17/21 19:30:00 EDT, Dry Weight Start Date: 05/17/21 Status: Ordered risperiDONE 2 mg oral tablet 2 mg, 1, tablet, By Mouth, Daily, # 30 tablet, Refills 0, Tot. Refills 0, Maintenance, 05/17/21 23:46:00 EDT, Route to Pharmacy Electronically, [facility] [id number], Partialfill upon patient request if the prescription is fo... Start Date: 05/17/21 Stop Date: 06/16/21 Status: Ordered risperiDONE 3 mg oral tablet 3 mg, 1, tablet, By Mouth, Daily at bedtime, # 30 tablet, Refills 0, Tot. Refills 0, Maintenance, 05/17/21 23:46:00 EDT, Route to Pharmacy Electronically, [facility] [id number], Partial fill upon patient request if the prescri... 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
--- OUTSIDE RECORDS SUMMARY | 2022-08-02 17:41 | XMS_ITS | Continuity of Care Document ---
Author Name Unknown Organization [facility] Address [address] [place] [address]- Care Team Providers Care Flasher Adjuster Name Role Phone Delia ACOSTA, Lamine Covington Primary Care Physician [facility] Date[facility]s): 11/27/19 - 12/27/19 [facility] [address] [place], [place] [address] Allergies, Adverse Reactions, Alerts Substance Reaction Severity [...] 15:33:00 EDT, Aerosol, Route to Pharmacy Electronically, [id number], [facility] - [place], [place] - [id number], 177, cm... Start Date: 10/15/19 Status: Ordered amLODIPine 5 mg oral tablet 5 mg, 1, tablet, By Mouth, Daily, # 30 tablet, Refills 11, Tot. Refills 11, Maintenance, 05/09/19 8:48:00 EDT, Route to Pharmacy Electronically, [place], [place] -, 177, cm, 04/02/2009:47:00 EST, Height, 135, kg, 03/30/18 19:13:00 ES... Start Date: 05/09/19 Status: Ordered benztropine 1 mg oral tablet via psychiatry Dr Andres Ferro, Refills 0, Maintenance, 12/18/19 9:44:00 EDT Start Date: 12/18/19 Status: Ordered cetirizine 10 mg oral tablet 1 tablet = 10 mg, By Mouth, Daily, # 30 tablet, 1 Refills, Maintenance, 11/08/19 14:15:00 EDT, Tablet, [place], [place] - [id number], Label in [place]., 177, cm, 10/15/19 14:42:00 EDT, Height, 135, kg, 03/30/18 19:13:00 EST, Dry Weight Start Date: 11/08/19 Status: Ordered divalproex sodium 500 mg oral tablet, extended release via psychiatry Dr Andres Ferro, 0 Refills, Maintenance, 12/18/19 9:44:00 EDT Start Date: 12/18/19 Status: Ordered Flonase 50 mcg/inh nasal spray 2 sprays, Nares, Both, Daily in AM, # 16 Gm, 3 Refills, Maintenance, 08/28/19 8:53:00 EDT, [place], [place], [place] -, 2 sprays Nares, Both Daily in AM, 177, cm, 07/29/19 13:56:00 EDT, Height, 135, kg, 03/30/18 19:13:00 EST, Dry Weight Start Date: 08/28/19 Status: Ordered Flonase 50 mcg/inh nasal spray 1 sprays, Nares, Both, 2 times a day, # 9.9 mL, 0 Refills, Maintenance, 12/18/19 17:38:00 EDT, [place], [place], [place] - [id number], 1 sprays Nares, Both 2 times a day, 177, cm, 10/15/19 14:42:00 EDT, Height, 135, kg, 03/30/18 19:13:0... Start Date: 12/18/19 Status: Ordered metFORMIN 500 mg oral tablet, extended release See Instructions, TAKE ONE TABLET BY MOUTH DAILY, # 30 tablet, 5 Refills, Soft Stop, 05/09/19 8:49:00 EDT, [place], [place] -, 177, cm, 04/02/19 10:47:00 EST, Height, 135, kg, 03/30/18 19:13:00 EST, Dry Weight Start Date: 05/09/19 Status: Ordered Metoprolol Tartrate 25 mg oral tablet See Instructions, TAKE 1 & 1/2 TABLETS BY MOUTH 2 (two) times a day, # 90 tablet, 3 Refills, Soft Stop, 05/09/19 8:49:00 EDT, [place], [place] -, 177, cm, 04/02/19 10:47:00 EST, Height, 135, kg, 03/30/18 19:13:00 EST, Dry Weight Start Date: 05/09/19 Status: Ordered olanzapine 15 mg oral tablet via psychiatry Dr Andres Ferro, 0 Refills, Maintenance, 12/18/19 9:44:00 EDT Start Date: 12/18/19 Status: Ordered omeprazole 20 mg oral enteric coated capsule 1 capsule = 20 mg, By Mouth, 2 times a day, # 60 capsule, 3 Refills, Soft Stop, 07/09/19 10:02:00 EDT, [facility], Dose increased 05/09/19. Label in [place]., 177, cm, 04/02/19 10:47:00 EST, Height, 135, kg, 03/30/18 19:13:00... Start Date: 07/09/19 Status: Ordered simvastatin 10 mg oral tablet See Instructions, TAKE ONE TABLET BY MOUTH DAILY AT BEDTIME, # 30 tablet, Refills 11, Tot. Refills 11, Soft Stop, 05/09/19 8:49:00 EDT, Instructions Replace Required Details, Route to Pharmacy Electronically, [place], [place] -, 177,... 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 Mildly enlarged [...]
--- OUTSIDE RECORDS SUMMARY | 2022-08-02 17:41 | XMS_ITS | Continuity of Care Document ---
Author Name Unknown Organization [facility] Address [address] [place] [address]- Care Team Providers Care Line Cleaner Name Role Phone Lamine Lin MD Primary Care Physician [facility]): 07[facility]19 - 07/16/19 [facility] [address] [place] [address]- [place] Encounter Diagnosis Nausea(Discharge Diagnosis) - 07/09/19 Attending Physician: Lamine Lin MD Allergies, Adverse Reactions, [...] 9:07:07 EST Start Date: 04/04/18 Status: Ordered amLODIPine 5 mg oral tablet 5 mg, 1, tablet, By Mouth, Daily, # 30 tablet, Refills 11, Tot. Refills 11, Maintenance, 05/09/19 8:48:00 EDT, Route to Pharmacy Electronically, [facility] [place], [place] -, 177, cm, 04/02/2009:47:00 EST, Height, 135, kg, 03/30/18 19:13:00 ES... Start Date: 05/09/19 Status: Ordered Depakote 500 mg oral enteric coated tablet 2 tablet = 1,000 mg, By Mouth, 2 times a day, # 120 tablet, 3 Refills, Maintenance, 04/19/18 15:29:27 EST, EC Tablet Start Date: 04/19/18 Stop Date: 08/17/18 Status: Ordered Flonase 50 mcg/inh nasal spray 2 sprays, Nares, Both, Daily in AM, # 16 Gm, 3 Refills, Maintenance, 05/09/19 8:47:00 EDT, [place], [place], [place] -, 2 sprays Nares, Both Daily in AM, 177, cm, 04/02/19 10:47:00 EST, Height, 135, kg, 03/30/18 19:13:00 EST, Dry Weight Start Date: 05/09/19 Status: Ordered metFORMIN 500 mg oral tablet, extended release See Instructions, TAKE ONE TABLET BY MOUTH DAILY, # 30 tablet, 5 Refills, Soft Stop, 05/09/19 8:49:00 EDT, [place], [place] -, 177, cm, 04/02/19 10:47:00 EST, Height, 135, kg, 03/30/18 19:13:00 EST, Dry Weight Start Date: 05/09/19 Status: Ordered Metoprolol Tartrate 25 mg oral tablet See Instructions, TAKE 1 & 1/2 TABLETS BY MOUTH 2 (two) times a day, # 90 tablet, 3 Refills, Soft Stop, 05/09/19 8:49:00 EDT, [place], [place] -, 177, cm, 04/02/19 10:47:00 EST, Height, 135, kg, 03/30/18 19:13:00 EST, Dry Weight Start Date: 05/09/19 Status: Ordered omeprazole 20 mg oral enteric coated capsule 1 capsule = 20 mg, By Mouth, 2 times a day, # 60 capsule, 3 Refills, Soft Stop, 07/09/19 10:02:00 EDT, [place], [place] -, Dose increased 05/09/19. Label in [place]., 177, cm, 04/02/19 10:47:00 EST, Height, 135, kg, 03/30/18 19:13:00... Start Date: 07/09/19 Status: Ordered simvastatin 10 mg oral tablet See Instructions, TAKE ONE TABLET BY MOUTH DAILY AT BEDTIME, # 30 tablet, Refills 11, Tot. Refills 11, Soft Stop, 05/09/19 8:49:00 EDT, Instructions Replace Required Details, Route to Pharmacy Electronically, [facility] - [place], [place] -, 177,... Start Date: 05/09/19 Status: [...] Shah MD Dictated Date/Time: 02/25/11 11:07 a Diagnosis Diagnosis Type Effective Dates Health Status Clini sharita Service Informant Nausea Discharge Diagnosis 07/09/19 Social History Social History Type Response Smoking Status Never smoker entered on: 10/02/13 Sex
--- OUTSIDE RECORDS SUMMARY | 2022-08-02 17:41 | XMS_ITS | Continuity of Care Document ---
Author Name Unknown Organization [facility] Address [address] [place] [address]- Care Team Providers Care Antisqueak Chalker Name Role Phone Lamine Lin MD Primary Care Physician Encounter [facility] [facility] [id number] Date(s): 04/14/21 - 06/02/21 [facility] [address], [place] [address] Attending Physician: Lamine Lin MD Admitting [...] 05/17/21 23:47:00 EDT, Route to Pharmacy Electronically, [place], [place] - [id number], Partial fill upon patient request if... Start Date: 05/17/21 Stop Date: 06/16/21 Status: Ordered chlorthalidone 25 mg oral tablet 12.5 mg, 0.5, tablet, By Mouth, Daily, # 15 tablet, Refills 0, Tot. Refills 0, Maintenance, 05/17/21 23:47:00 EDT, Route to Pharmacy Electronically, [facility] [place] [id number], Partial fill upon patient request if the prescription... Start Date: 05/17/21 Stop Date: 06/16/21 Status: Ordered diclofenac 1% topical gel 1 application, Topically, 4 times a day, # 100 Gm, 0 Refills, Maintenance, 05/17/21 23:47:00 EDT, Gel, [facility] [place] [id number], Partial fill upon patient request if the prescription is for a schedule II opioid drug., 179, cm, 03... Start Date: 05/17/21 Stop Date: 05/31/21 Status: Ordered docusate sodium 100 mg oral capsule 100 mg, 1, capsule, By Mouth, Daily, # 30 capsule, Refills 0, Tot. Refills 0, Maintenance, 05/17/2222:47:00 EDT, Route to Pharmacy Electronically, [facility] [place] [id number], Partial fill upon patient request if the prescription i... Start Date: 05/17/21 Stop Date: 06/16/21 Status: Ordered Flonase 50 mcg/inh nasal spray 2 sprays = 100 mcg, Nares, Both, Daily, # 16 Gm, 0 Refills, Maintenance, 05/17/21 23:47:00 EDT, Nasal [place], [facility] [place] [id number], Partial fill upon patient request if the prescription is for a schedule II opioid drug., 2 spr... Start Date: 05/17/21 Stop Date: 05/31/21 Status: Ordered folic acid 1 mg oral tablet 1 mg, 1, tablet, By Mouth, Daily, # 30 tablet, Refills 0, Tot. Refills 0, Maintenance, 05/17/21 23:47:00 EDT, Route to Pharmacy Electronically, [facility] [place] [id number], Partialfill upon patient request if the prescription is fo... Start Date: 05/17/21 Stop Date: 06/16/21 Status: Ordered gabapentin 600 mg oral tablet 1 tablet = 600 mg, By Mouth, 3 times a day, # 90 tablet, 0 Refills, Maintenance, 05/17/21 23:47:00 EDT, Tablet, [facility] [id number], Partial fill upon patient request if the prescription is for a schedule II opioid drug., 17... Start Date: 05/17/21 Stop Date: 06/16/21 Status: Ordered lidocaine 5% topical film 1 film, Topically, Daily, knee pain, # 30 film, 0 Refills, Maintenance, 05/17/21 23:46:00 EDT, Patch, [facility] [id number], Partial fill upon patient request if the prescription is for a schedule II opioid drug., 1 film Topic... Start Date: 05/17/21 Stop Date: 06/16/21 Status: Ordered loratadine 10 mg oral tablet 10 mg, 1, tablet, By Mouth, Daily, # 30 tablet, Refills 0, Tot. Refills 0, Maintenance, 05/17/21 23:46:00 EDT, Route to Pharmacy Electronically, [facility] [id number], Partial fill upon patient request if the prescription is f... Start Date: 05/17/21 Stop Date: 06/16/21 Status: Ordered losartan 25 mg oral tablet 25 mg, 1, tablet, By Mouth, Daily, Hold if SBP<100mm Hg, # 30 tablet, Refills 0, Tot. Refills 0,Maintenance, 03/29/21 14:21:00 EST, Route to Pharmacy Electronically, [facility] [id number], Partial fill upon patient request if... Start Date: 03/29/21 Stop Date: 04/28/21 Status: Ordered MetFORMIN (Eqv-Glucophage XR) 500 mg oral tablet, extended release 1 tablet, By Mouth, Daily, for 30 days, # 30 tablet, 11 Refills, Physician Stop 05/12/22 23:46:00 EDT, 05/17/21 23:46:00 EDT, [facility] [id number], 179, cm, 05/17/21 19:30:00 EDT, Height, 140, kg, 05/17/21 19:30:00 EDT, Dry W... Start Date: 05/17/21 Stop Date: 05/12/22 Status: Ordered OXcarbazepine 300 mg oral tablet 300 mg, 1, tablet, By Mouth, 2 times a day, # 60 tablet, Refills 0, Tot. Refills 0, Maintenance, 05/17/21 23:45:00 EDT, Route to Pharmacy Electronically, [facility] [id number], Partial fill upon patient request if the [...] 05/17/21 23:46:00 EDT, Route to Pharmacy Electronically, [facility] [id number], Partialfill upon patient request if the prescription is fo... Start Date: 05/17/21 Stop Date: 06/16/21 Status: Ordered risperiDONE 3 mg oral tablet 3 mg, 1, tablet, By Mouth, Daily at bedtime, # 30 tablet, Refills 0, Tot. Refills 0, Maintenance, 05/17/21 23:46:00 EDT, Route to Pharmacy Electronically, [facility] [id number], Partial fill upon patient request if the [...] sleep apnea, Com plex sleep apnea(Confirmed) Active BHN/CCA/Certified Pedorthotist-Remedios MárquezYchhuhc-[phone]/Health usp, active care coordination(Confirmed) Active Severe obesity(Confirmed) Active [...]
--- OUTSIDE RECORDS SUMMARY | 2022-08-02 17:41 | XMS_ITS | Continuity of Care Document ---
Author Name Unknown Organization [facility] Address [address] [place] [address]- Care Team Providers Care Central Office Supervisor Name Role Phone Delia ACOSTA, Lamine Covington Primary Care Physician Encounter [facility] [place] Date(s): 12/14/20 - 01/13/21 [facility] [address], [place] [address] Allergies, Adverse Reactions, Alerts Substance Reaction Severity Status lisinopril dry cough Active cloNIDine confusion Active Immunizations Given and Recorded Vaccine Date Status Refusal Reason SARS-CoV-2 (COVID-19) mRNA BNT-162b2 vac 09/10/20 Given SARS-CoV-2 (COVID-19) mRNA BNT-162b2 vac 08/20/20 Given tetanus-diphtheria toxoids (Td) 12/30/19 Given influenza virus vaccine, inactivated 12/30/19 Give n influenza virus vaccine, inactivated 1 10/11/11 Gi annia influenza virus vaccine, inactivated 2 12/30/10 Gi annia pneumococcal 23-valent vaccine 07/19/11 Given tetanus/diphtheria/pertussis, acel(Tdap) 08/11/09 Given 1Admin Note: VIS 08/31 2Admin Note: flulaval vis given vis date 09/14/2010 Medications amLODIPine 5 mg oral tablet 10 mg, 2, tablet, By Mouth, Daily, # 60 tablet, Refills 1, Tot. Refills 1, Maintenance, 10/23/20 10:46:00 EDT, Route to Pharmacy Electronically, [facility]/pharmacy #[id number], Partial fill upon patient request if the prescription is for a schedule II opioid drug... Start Date: 10/23/20 Status: Ordered chlorthalidone 25 mg oral tablet 12.5 mg, 0.5, tablet, By Mouth, Daily, # 15 tablet, Refills 1, Tot. Refills 1, Maintenance, 10/23/20 10:48:00 EDT, Route to Pharmacy Electronically, [facility]/pharmacy #[id number], Partial fill upon patient request if the prescription is for a schedule II opioid... Start Date: 10/23/20 Status: Ordered Colace sodium 100 mg oral capsule 100 mg, 1, capsule, By Mouth, Daily in AM, # 30 capsule, Refills 1, Tot. Refills 1, Maintenance, 10/23/20 11:49:00 EDT, Route to Pharmacy Electronically, [facility]/pharmacy #[id number], Partial fill upon patientrequest if the prescription is for a schedule II op... Start Date: 10/23/20 Status: Ordered diclofenac 1% topical gel 1 application, Topically, 4 times a day, # 100 Gm, 0 Refills, Maintenance, 11/23/20 13:32:00 EDT, Gel, [facility] [place], [place] - [id number], Partial fill upon patient request if the prescription is for a schedule II opioid drug., 177, cm, 10... Start Date: 11/23/20 Status: Ordered diphenhydrAMINE 50 mg oral tablet = 50 mg, By Mouth, Every 6 hours, PRN Anxiety, # 60 tablet, 1 Refills, Maintenance, 10/23/20 10:48:00 EDT, Tablet, [facility]/pharmacy #[id number], Partial fill upon patient request if the prescription is for a schedule II opioid drug., 177, cm, 10/22/20 21:57:00... Start Date: 10/23/20 Status: Ordered folic acid 1 mg oral tablet 1, tablet, By Mouth, Daily, # 30 tablet, Refills 1, Route to Pharmacy Electronically, [facility], 177, cm, 12/17/20 10:34:00 EDT, Height, 148, kg, 10/16/20 15:12:00 EDT, Dry Weight Start Date: 01/01/21 Status: Ordered gabapentin 600 mg oral tablet 1 tablet, By Mouth, 3 times a day, # 90 tablet, 1 Refills, [facility], 177, cm, 12/17/20 10:34:00 EDT, Height, 148, kg, 10/16/20 15:12:00 EDT, Dry Weight Start Date: 01/01/21 Status: Ordered loratadine 10 mg oral tablet 1, tablet, By Mouth, Daily, # 30 tablet, Refills 1, Route to Pharmacy Electronically, [facility], 177, cm, 12/17/20 10:34:00 EDT, Height, 148, kg, 10/16/20 15:12:00 EDT, Dry Weight Start Date: 01/01/21 Status: Ordered losartan 25 mg oral tablet 25 mg, 1, tablet, By Mouth, Daily, # 30 tablet, Refills 1, Tot. Refills 1, Maintenance, 10/23/20 10:47:00 EDT, Route to Pharmacy Electronically, [facility]/pharmacy #[id number], Partial fill upon patient request if the prescription is for a schedule II opioid drug... Start Date: 10/23/20 Status: Ordered metFORMIN 500 mg oral tablet, extended release 1 tablet = 500 mg, By Mouth, Daily, # 30 tablet, 1 Refills, Maintenance, 10/23/20 10:47:00 EDT, ER Tablet, [facility]/pharmacy #[id number], Partial fill upon patient request if the prescription is for a schedule II opioid drug., 177, cm, 10/22/20 21:57:00 EDT, Hei... Start Date: 10/23/20 Status: Ordered MiraLax oral powder for reconstitution = 17 Gm, By Mouth, Daily, # 255 Gm, 1 Refills, Maintenance, 10/23/20 10:49:00 EDT, [facility]/pharmacy #[id number], Partial fill upon patient request if the prescription is for a schedule II opioid drug., 17 Gm By Mouth Daily, 177, cm, 10/22/20 21:57:00 EDT, Heigh... Start Date: 10/23/20 Status: Ordered OXcarbazepine 300 mg oral tablet 300 mg, 1, tablet, By Mouth, 2 times a day, # 60 tablet, Refills 1, Tot. Refills 1, Maintenance, 10/23/20 10:48:00 EDT, Route to Pharmacy Electronically, [facility]/pharmacy #[id number], Partial fill upon patientrequest if the prescription is for a schedule II op... Start Date: 10/23/20 Status: Ordered pantoprazole 40 mg oral delayed release tablet 1 tablet, By Mouth, Daily, # 30 tablet, 1 Refills, 177, cm, 12/17/20 10:34:00 EDT, Height, 148, kg,10/16/20 15:12:00 EDT, Dry Weight Start Date: 01/01/21 Status: Ordered RisperDAL 2 mg oral tablet 2 mg, 1, tablet, By Mouth, Daily, # 30 tablet, Refills 1, Tot. Refills 1, Maintenance, 10/23/20 10:51:00 EDT, Route to Pharmacy Electronically, [facility]/pharmacy #[id number], Partial fill upon patient request if the prescription is for a schedule II opioid drug.... Start Date: 10/23/20 Status: Ordered risperiDONE 3 mg oral tablet 3 mg, 1, tablet, By Mouth, Daily at bedtime, # 30 tablet, Refills 1, Tot. Refills 1, Maintenance, 10/23/20 10:52:00 EDT, Route to Pharmacy Electronically, [facility]/pharmacy #[id number], Partial fill upon patient request if the prescription is for a schedule II o... Start Date: 10/23/20 Status: Ordered Tylenol 8 HR Arthritis Pain 650 mg oral tablet, extended release 1 tablet = 650 mg, By Mouth, Every 8 hours, PRN as needed for pain, # 50 tablet, 0 Refills, Maintenance, 12/17/20 15:15:00 EDT, ER Tablet, [facility] [place], [place] - [id number], Partial fillupon patient request if the prescription is for a s... Start Date: 12/17/20 Status: Ordered Problem List Condition Effective Dates Status Health Status Inform ant Diabetes mellitus(Confirmed) Active Esophageal reflux (GERD)(Confirmed) Active Gastric polyp(Confirmed) 1 Active Gynecomastia(Confirmed) Active Hypercholesterolemia(Confirmed) Active Hypertension(Confirmed) Active Sleep related hypoxia(Confirmed) Active Weliukebach(Confirmed) 2012 Active Morbid obesity with BMI of 4 5.0-49.9, adult(Confirmed) Active NAFLD (nonalcoholic fatty li evelia disease)(Confirmed) 2 Active Obstructive sleep apnea, Com plex sleep apnea(Confirmed) Active BHN/CCA/Game Engineer-Remedios MárquezOuhvgnb-[phone]/Health snf, active care coordination(Confirmed) Active Treatment-emergent central s leep apnea(Confirmed) Active [...]
--- OUTSIDE RECORDS SUMMARY | 2022-08-02 17:41 | XMS_ITS | Continuity of Care Document ---
Author Name Unknown Organization [facility] Address [address] [place] [address]- Care Team Providers Care Mechanical Intern Name Role Phone Lamine Lin MD Primary Care Physician [phone] Encounter [facility] [place] Date(s[place] 09/01/21 - 10/21/21 [facility] [address] [place] [address]- Attending Physician: Lamine Lin MD Admitting Physician: [...] 09/14/2010 Medications benztropine 1 mg oral tablet 1 mg, 1, tablet, By Mouth, 2 times a day, # 60 tablet, Refills 1, Tot. Refills 1, Maintenance, 08/18/21 10:14:00 EDT, Route to Pharmacy Electronically, [facility] [place], [place] - [id number],Partial fill upon patient request if the prescripti... Start Date: 08/18/21 Status: Ordered buPROPion 150 mg/24 hours (XL) oral tablet, extended release 1 tablet, By Mouth, Daily, # 30 tablet, 0 Refills, [facility], 30, TAKE 1 TABLET BY MOUTH ONCEDAILY, 177.8, cm, 10/05/21 8:09:00 EDT, Height, 136.078, kg, 09/02/21 19:37:00 EDT, Dry Weight Start Date: 10/13/21 Status: Ordered chlorthalidone 25 mg oral tablet 12.5 mg, 0.5, tablet, By Mouth, Daily, # 15 tablet, Refills 1, Tot. Refills 1, Maintenance, 08/18/21 10:14:00 EDT, Route to Pharmacy Electronically, [facility] [place], [place] - [id number], Partial fill upon patient request if the prescription... Start Date: 08/18/21 Status: Ordered Freestyle Lite Lancets See Instructions, # 50 each, Refills 11, Tot. Refills 11, Maintenance, check daily fasting sugar for type 2 DM. E11.9, 10/20/21 9:50:00 EDT, Supply, 177.8, cm, 10/20/21 8:51:00 EDT, Height, 136.078, kg, 09/02/21 19:37:00 EDT, Dry Weight Start Date: 10/20/21 Status: Ordered Freestyle Lite Monitor See Instructions, # 1 each, Maintenance, check daily fasting sugar for type 2 DM. E11.9, 10/20/21 9:49:00 EDT, Supply, 177.8, cm, 10/20/21 8:51:00 EDT, Height, 136.078, kg, 09/02/21 19:37:00 EDT, DryWeight Start Date: 10/20/21 Status: Ordered Freestyle Lite Test Strips See Instructions, # 50 each, Refills 11, Tot. Refills 11, Maintenance, check daily fasting sugar for type 2 DM. E11.9, 10/20/21 9:50:00 EDT, Supply, 177.8, cm, 10/20/21 8:51:00 EDT, Height, 136.078, kg, 09/02/21 19:37:00 EDT, Dry Weight Start Date: 10/20/21 Status: Ordered gabapentin 600 mg oral tablet 1 tablet = 600 mg, By Mouth, 3 times a day, # 90 tablet, 1 Refills, Maintenance, 08/18/21 10:14:00 EDT, Tablet, [facility], [place] - [id number], Partial fill upon patient request if the prescription is for a schedule II opioid drug., 17... Start Date: 08/18/21 Stop Date: 10/17/21 Status: Ordered hydrOXYzine pamoate 50 mg oral capsule = 50 mg, By Mouth, Every 6 hours, PRN Anxiety, # 60 capsule, 1 Refills, Maintenance, 08/18/21 10:15:00 EDT, Capsule, [facility], [place] - [id number], Partial fill upon patient request if the prescription is for a schedule II opioid drug... Start Date: 08/18/21 Status: Ordered loratadine 10 mg oral tablet 10 mg, 1, tablet, By Mouth, Daily, # 30 tablet, Refills 1, Tot. Refills 1, Maintenance, 08/18/21 10:15:00 EDT, Route to Pharmacy Electronically, [facility] [id number], Partial fill upon patient request if the prescription is f... Start Date: 08/18/21 Stop Date: 10/17/21 Status: Ordered metFORMIN 500 mg oral tablet, extended release 1 tablet = 500 mg, By Mouth, Daily, with food Frisian label please., # 30 tablet, 5 Refills, Maintenance, 10/20/21 9:49:00 EDT, ER Tablet, [facility] [id number], Partial fillupon patient request if the prescription is for a... Start Date: 10/20/21 Status: Ordered mupirocin 2% topical cream See Instructions, apply thin layer to face twice a day., # 30 Gm, 0 Refills, Maintenance, 10/05/21 8:55:00 EDT, [facility] [id number], Partial fill upon patient request if the prescription is for a schedule II opioid drug., ap... Start Date: 10/05/21 Status: Ordered mupirocin 2% topical ointment See Instructions, Topically 2 times a day, # 22 Gm, 0 Refills, Maintenance, 10/05/21 17:24:00 EDT, [facility] [id number], Partial fill upon patient request if the prescription is for a schedule II opioid drug., Topically 2 kiya... Start Date: 10/05/21 Status: Ordered paliperidone 234 mg/1.5 mL intramuscular suspension, extended release = 234 mg, Intramuscular, Every 28 days, Due on 09/13/2021, # 1 each, 1 Refills, Maintenance, 08/18/21 10:16:00 EDT, [facility] [id number], Partial fill upon patient request ifthe prescription is for a schedule II opioid drug.... Start Date: 08/18/21 Status: Ordered pantoprazole 40 mg oral delayed release tablet = 40 mg, By Mouth, Daily, # 30 tablet, 1 Refills, Maintenance, 08/18/21 10:15:00 EDT, EC Tablet, 178, cm, 08/17/21 16:33:00 EDT, Height, 131, kg, 08/05/21 21:40:00 EDT, Dry Weight Start Date: 08/18/21 Status: Ordered traZODone 100 mg oral tablet 100 mg, 1, tablet, By Mouth, Daily at bedtime, # 30 tablet, Refills 1, Tot. Refills 1, Maintenance,08/18/21 10:19:00 EDT, Route to Pharmacy Electronically, [facility] [id number], Partial fill upon patient request if the presc... 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 Morbid obesity with BMI of 4 5.0-49.9, adult(Confirmed) Active NAFLD (nonalcoholic fatty li evelia disease)(Confirmed) 2 Active Obese class II(Confirmed) Active Obstructive sleep apnea, Com plex sleep apnea(Confirmed) Active BHN/CCA/Software Configuration Engineer-Remedios MárquezWxmuahd-[phone]/Health halfway, active care coordination(Confirmed) Active Treatment-emergent central s [...] Status Never smoker entered on: 10/02/13 Sex Care Team Personnel Name: Lamine Lin MD Address: [address] [place] [address]
--- OUTSIDE RECORDS SUMMARY | 2022-08-02 17:41 | XMS_ITS | Continuity of Care Document ---
Author Name Unknown Organization [facility] ter Address [address] [place] [address]- Care Team Providers Care Aviation Neuropsychologist Name Role Phone Delia ACOSTA, Lamine Covington Primary Care Physician Encounter [facility] Date(s): 04/01/20 - 05/09/[address] [address] Attending Physician: Lamine Lin MD Admitting Physician: Lamine Lin MD Referring Physician: Kalen Ribeiro MD Allergies, Adverse Reactions, Alerts Substance Reaction [...] 18:13:00 EST, Aerosol, Route to Pharmacy Electronically, [id number], [facility] [id number], 177, cm... Start Date: 01/02/20 Status: Ordered amLODIPine 5 mg oral tablet 5 mg, 1, tablet, By Mouth, Daily, # 30 tablet, Refills 11, Tot. Refills 11, Maintenance, 02/03/20 16:45:00 EST, Route to Pharmacy Electronically, [facility] [id number], 178, cm, 01/28/20 6:28:00 EST, Height, 158, kg, 01/07/20... Start Date: 02/03/20 Status: Ordered benztropine 1 mg oral tablet 1 mg, 1, tablet, Daily at bedtime, via psychiatry Dr Andres Ferro, Refills 0, Maintenance, 12/18/19 9:44:00 EDT Start Date: 12/18/19 Status: Ordered cetirizine 10 mg oral tablet 1 tablet = 10 mg, By Mouth, Daily, # 30 tablet, 3 Refills, Maintenance, 02/24/20 11:16:00 EST, Tablet, [facility] [id number], Label in Guamanian., 178, cm, 02/04/20 15:21:00 EST, Height, 158, kg, 01/07/20 14:48:00 EST, Dry Weight Start Date: 02/24/20 Status: Ordered chlorthalidone 25 mg oral tablet 12.5 mg, 0.5, tablet, By Mouth, Daily, # 15 tablet, Refills 5, Tot. Refills 5, Maintenance, 02/04/20 15:34:00 EST, Route to Pharmacy Electronically, [facility] [id number], Partial fill upon patient request if the [...] mL, 0 Refills, Maintenance, 02/24/20 11:15:00 EST, [place], [facility] [id number], 1 sprays Nares, Both 2 times a day, 178, cm, 02/04/20 15:21:00 EST, Height, 158, kg, 01/07/20 14:48:0... Start Date: 02/24/20 Status: Ordered Flovent Diskus 100 mcg/inh inhalation powder 1 puffs, Inhalation, 2 times a day, # 60 each, 0 Refills, Maintenance, 03/03/20 10:49:00 EST, Powder, [facility] [id number], Partial fill upon patient request if the prescription is for a schedule II opioid drug., 1 puffs Inha... Start Date: 03/03/20 Status: Ordered GuaiFENesin DM 20 mg-200 mg/10 mL oral liquid 10 mL, By Mouth, Every 4 hours, PRN as needed for cough, not to exceed 6 doses/day, # 120 mL, 0 Refills, Maintenance, 03/03/20 11:05:00 EST, Liquid, [facility] [id number], Partial fill upon patient request if the prescription... Start Date: 03/03/20 Status: Ordered metFORMIN 500 mg oral tablet, extended release 1 tablet = 500 mg, By Mouth, Daily, # 30 tablet, 11 Refills, Maintenance, 02/03/20 16:44:00 EST, ERTablet, [place], [place] - [id number], Partial fill upon patient request if the [...] 01/28/20 9:40:00 EST, Route to Pharmacy Electronically, [facility], Partial fill upon patient request if the prescription is for a schedule II o... Start Date: 01/28/20 Status: Ordered omeprazole 20 mg oral enteric coated capsule 1 capsule = 20 mg, By Mouth, 2 times a day, # 60 capsule, 2 Refills, Soft Stop, 04/01/20 14:52:00 EST, [facility] [place] - [id number], Dose increased 05/09/19. Label in Guamanian., 178, cm, 03/16/20 12:24:00 EST, Height, 153.2, kg, 03/16... Start Date: 04/01/20 Status: Ordered zolpidem 10 mg oral tablet 1 tablet = 10 mg, Daily at bedtime, via psychiatry Dr Andres Ferro, 0 Refills, Maintenance, 209:44:00 EDT Start Date: 12/18/19 Status: Ordered Problem List Condition Effective Dates Status Health Status Inform ant Diabetes mellitus(Confirmed) Active Esophageal reflux (GERD)(Confirmed) Active Gynecomastia(Confirmed) Active Hypercholesterolemia(Confirmed) Active Hypertension(Confirmed) Active Wenckebach(Confirmed) 2012 Active Morbid obesity with BMI of 4 5.0-49.9, adult(Confirmed) Active NAFLD (nonalcoholic fatty li evelia disease)(Confirmed) 1 Active Obstructive sleep apnea, Com plex sleep apnea(Confirmed) Active BHN/CCA/Printed Circuit Board Panels Plater-Remedios Ylyiaoe-[phone]/Health snf, active care coordination(Confirmed) Active 1Impression: 1. Mildly [...]
--- OUTSIDE RECORDS SUMMARY | 2022-08-02 17:41 | XMS_ITS | Continuity of Care Document ---
Author Name Unknown Organization [facility] Address [address] [place] [address]- Care Team Providers Care Laborer Pole Crew Name Role Phone Delia ACOSTA, Lamine Covington Primary Care Physician [facility] 07[facility]20 - 07/31/20 [facility] [address] [place] [address]- Allergies, Adverse Reactions, Alerts Substance Reaction Severity [...] 18:13:00 EST, Aerosol, Route to Pharmacy Electronically, [id number], [place], [place] - [id number], 177, cm... Start Date: 01/02/20 Status: Ordered amLODIPine 5 mg oral tablet 5 mg, 1, tablet, By Mouth, Daily, # 30 tablet, Refills 11, Tot. Refills 11, Maintenance, 02/03/20 16:45:00 EST, Route to Pharmacy Electronically, [facility], [place] - [id number], 178, cm, 01/28/20 6:28:00 EST, Height, 158, [...] 5 Refills, Maintenance, 07/01/20 9:26:00 EDT, Tablet, [facility], [place] - [id number], Label in Tongan., 177.9, cm, 04/16/20 13:38:00 EST, Height, 153.2, kg, 03/16/20 12:24:00 EST, Dry We... Start Date: 07/01/20 Status: Ordered chlorthalidone 25 mg oral tablet 12.5 mg, 0.5, tablet, By Mouth, Daily, # 15 tablet, Refills 5, Tot. Refills 5, Maintenance, 07/31/20 11:20:00 EDT, Route to Pharmacy Electronically, [facility], [place] - [id number], Partial fill upon patient request if the prescription... Start Date: 07/31/20 Status: Ordered divalproex sodium 500 mg oral tablet, extended release 2 tablet = 1,000 mg, Daily at bedtime, via psychiatry Dr Andres Ferro, 0 Refills, Maintenance, 12/18/19 9:44:00 EDT Start Date: 12/18/19 Status: Ordered Flonase 50 mcg/inh nasal spray 1 sprays, Nares, Both, 2 times a day, # 9.9 mL, 0 Refills, Maintenance, 02/24/20 11:15:00 EST, [place], [facility], [facility] [id number], 1 sprays Nares, Both 2 times a day, 178, cm, 02/04/20 15:21:00 EST, Height, 158, kg, 01/07/20 14:48:0... Start Date: 02/24/20 Status: Ordered Flovent Diskus 100 mcg/inh inhalation powder 1 puffs, Inhalation, 2 times a day, # 60 each, 0 Refills, Maintenance, 03/03/20 10:49:00 EST, Powder, [facility] [id number], Partial fill upon patient request if the prescription is for a schedule II opioid drug., 1 puffs Inha... Start Date: 03/03/20 Status: Ordered gabapentin 600 mg oral tablet 1 tablet = 600 mg, By Mouth, 3 times a day, # 90 tablet, 0 Refills, Maintenance, 07/17/20 14:13:00 EDT, Tablet, [facility] [id number], Partial fill upon patient request if the prescription is for a schedule II opioid drug., 17... Start Date: 07/17/20 Status: Ordered GuaiFENesin DM 20 mg-200 mg/10 mL oral liquid 10 mL, By Mouth, Every 4 hours, PRN as needed for cough, not to exceed 6 doses/day, # 120 mL, 0 Refills, Maintenance, 03/03/20 11:05:00 EST, Liquid, [facility] [id number], Partial fill upon patient request if the prescription... Start Date: 03/03/20 Status: Ordered metFORMIN 500 mg oral tablet, extended release 1 tablet = 500 mg, By Mouth, Daily, # 30 tablet, 11 Refills, Maintenance, 02/03/20 16:44:00 EST, ERTablet, [facility] [id number], Partial fill upon patient request if the prescription is for a schedule II opioid drug., 178, c... Start Date: 02/03/20 Status: Ordered non slip bath mat non slip bath mat, See Instructions, # 1 each, Refills 0, Tot. Refills 0, Maintenance, dx: ESHA, SOB, LEFT LEG PAIN LEFT LEG SWELLING RISK FOR SUAHEN58.81 G46.33,RO6.2.M79.605,R22.42, 07/23/20 13:54:00 EDT, Supply Start Date: 07/23/20 Status: Ordered olanzapine 15 mg oral tablet 1 tablet = 15 mg, By Mouth, Daily at bedtime, via psychiatry Dr Andres Ferro, 0 Refills, Maintenance, 12/18/19 9:44:00 EDT Start Date: 12/18/19 Status: Ordered olanzapine 5 mg oral tablet 5 mg, 1, tablet, By Mouth, Daily in AM, # 30 tablet, Refills 0, Tot. Refills 0, Maintenance, 01/28/20 9:40:00 EST, Route to Pharmacy Electronically, [facility], Partial fill upon patient request if the prescription is for a schedule II o... Start Date: 01/28/20 Status: Ordered omeprazole 20 mg oral enteric coated capsule 1 capsule = 20 mg, By Mouth, 2 times a day, # 60 capsule, 2 Refills, Soft Stop, 07/01/20 9:26:00 EDT, [facility] - [place], [place] - [id number], Label in Tongan, 177.9, cm, 04/16/20 13:38:00 EST, Height, 153.2, kg, 03/16/20 12:24:00 EST, Dry Weight Start Date: 07/01/20 Status: Ordered wedge pillows wedge pillows, See Instructions, # 2 each, Refills 0, Tot. Refills 0, Maintenance, use 1 pillow to elevate head and 1 pillow to elevate left leg duration: lifetime dx: ESHA, SOB, LEFT LEG PAIN LEFT LEG SWELLING G46.33,RO6.2.M79.605,R22.42, 0... Start Date: 07/22/20 Status: Ordered zolpidem 10 [...] sleep apnea, Com plex sleep apnea(Confirmed) Active [facility]/Recoater-Remedios MárquezToznbqh-[phone]/Health assisted, active care coordination(Confirmed) Active 1Impression: 1. Mildly [...]
--- OUTSIDE RECORDS SUMMARY | 2022-08-02 17:41 | XMS_ITS | Continuity of Care Document ---
Author Name Unknown Organization [facility] Address [address] [place] [address]- Care Team Providers Care Contract Graphic Designer Name Role Phone Delia ACOSTA, Lamine Covington Primary Care Physician [facility] 10/14/19 - 11/13/19 [facility] [address] [place] [address]- [facility] Allergies, Adverse Reactions, Alerts Substance Reaction Severity [...] 15:33:00 EDT, Aerosol, Route to Pharmacy Electronically, [id number], [facility] - [place], [place] - [id number], 177, cm... Start Date: 10/15/19 Status: Ordered amLODIPine 5 mg oral tablet 5 mg, 1, tablet, By Mouth, Daily, # 30 tablet, Refills 11, Tot. Refills 11, Maintenance, 05/09/19 8:48:00 EDT, Route to Pharmacy Electronically, [place], [place] -, 177, cm, 04/02/2009:47:00 EST, Height, 135, kg, 03/30/18 19:13:00 ES... Start Date: 05/09/19 Status: Ordered cetirizine 10 mg oral tablet 1 tablet = 10 mg, By Mouth, Daily, # 30 tablet, 1 Refills, Maintenance, 11/08/19 14:15:00 EDT, Tablet, [place], [place] - [id number], Label in [place]., 177, cm, 10/15/19 14:42:00 EDT, Height, 135, kg, 03/30/18 19:13:00 EST, Dry Weight Start Date: 11/08/19 Status: Ordered Coricidin HBP Chest Congestion & Cough 10 mg-200 mg oral capsule 1 capsule, By Mouth, Every 4 hours, PRN for cough, not to exceed 6 doses/day. [place] label, # 60 capsule, 0 Refills, Maintenance, 10/15/19 15:34:00 EDT, Capsule, [place], [place] - [id number], 1 capsule By Mouth Every 4 hours,PRN:for... [...] Gm, 3 Refills, Maintenance, 08/28/19 8:53:00 EDT, [place], [place], [place] -, 2 sprays Nares, Both Daily [...] 5 Refills, Soft Stop, 05/09/19 8:49:00 EDT, [place], [place] -, 177, cm, 04/02/19 10:47:00 EST, Height, 135, kg, 03/30/18 19:13:00 EST, Dry Weight Start Date: 05/09/19 Status: Ordered Metoprolol Tartrate 25 mg oral tablet See Instructions, TAKE 1 & 1/2 TABLETS BY MOUTH 2 (two) times a day, # 90 tablet, 3 Refills, Soft Stop, 05/09/19 8:49:00 EDT, [place], [place] -, 177, cm, 04/02/19 10:47:00 EST, Height, 135, kg, 03/30/18 19:13:00 EST, Dry Weight Start Date: 05/09/19 Status: Ordered omeprazole 20 mg oral enteric coated capsule 1 capsule = 20 mg, By Mouth, 2 times a day, # 60 capsule, 3 Refills, Soft Stop, 07/09/19 10:02:00 EDT, [place], [place] -, Dose increased 05/09/19. Label in [place]., 177, cm, 04/02/19 10:47:00 EST, Height, 135, kg, 03/30/18 19:13:00... Start Date: 07/09/19 Status: Ordered simvastatin 10 mg oral tablet See Instructions, TAKE ONE TABLET BY MOUTH DAILY AT BEDTIME, # 30 tablet, Refills 11, Tot. Refills 11, Soft Stop, 05/09/19 8:49:00 EDT, Instructions Replace Required Details, Route to Pharmacy Electronically, [place], [place] -, 177,... Start Date: 05/09/19 Status: [...]
--- OUTSIDE RECORDS SUMMARY | 2022-08-02 17:41 | XMS_ITS | Continuity of Care Document ---
Author Name Unknown Organization [facility] Address [address] [place] [address]- Care Team Providers Care Fashion Photographer Name Role Phone Delia ACOSTA, Lamine Covington Primary Care Physician Encounter [facility] Date(s): 03/07/21 - 04/06/21 [facility] [address] [place] [address]- Allergies, Adverse Reactions, Alerts Substance Reaction Severity [...] 03/29/21 14:20:00 EST, Route to Pharmacy Electronically, [facility] [place], [place] - [id number], Partial fill upon patient request if... Start Date: 03/29/21 Stop Date: 04/28/21 Status: Ordered chlorthalidone 25 mg oral tablet 12.5 mg, 0.5, tablet, By Mouth, Daily, # 15 tablet, Refills 0, Tot. Refills 0, Maintenance, 03/29/21 14:20:00 EST, Route to Pharmacy Electronically, [facility] [id number], Partial fill upon patient request if the prescription... Start Date: 03/29/21 Stop Date: 04/28/21 Status: Ordered diclofenac 1% topical gel 1 application, Topically, 4 times a day, # 100 Gm, 0 Refills, Maintenance, 03/29/21 14:20:00 EST, Gel, [facility] [id number], Partial fill upon patient request if the prescription is for a schedule II opioid drug., 178, cm, 02... Start Date: 03/29/21 Stop Date: 04/12/21 Status: Ordered diphenhydrAMINE 50 mg oral tablet 1 tablet = 50 mg, By Mouth, Daily at bedtime, PRN for insomnia, for 30 days, # 30 tablet, 0 Refills, Acute 04/28/21 14:24:00 EST, 03/29/21 14:24:00 EST, Tablet, [facility] [id number], Partial fill upon patient request if the p... Start Date: 03/29/21 Stop Date: 04/28/21 Status: Ordered docusate sodium 100 mg oral capsule 100 mg, 1, capsule, By Mouth, Daily, # 30 capsule, Refills 0, Tot. Refills 0, Maintenance, 03/29/2213:21:00 EST, Route to Pharmacy Electronically, [facility] [id number], Partial fill upon patient request if the prescription i... Start Date: 03/29/21 Stop Date: 04/28/21 Status: Ordered Flonase 50 mcg/inh nasal spray 2 sprays = 100 mcg, Nares, Both, Daily, # 16 Gm, 0 Refills, Maintenance, 03/29/21 14:21:00 EST, [place], [facility] [id number], Partial fill upon patient request if the prescription is for a schedule II opioid drug., 2 spr... Start Date: 03/29/21 Stop Date: 04/12/21 Status: Ordered folic acid 1 mg oral tablet 1 mg, 1, tablet, By Mouth, Daily, # 30 tablet, Refills 0, Tot. Refills 0, Maintenance, 03/29/21 14:21:00 EST, Route to Pharmacy Electronically, [facility] [id number], Partialfill upon patient request if the prescription is fo... Start Date: 03/29/21 Stop Date: 04/28/21 Status: Ordered gabapentin 600 mg oral tablet 1 tablet = 600 mg, By Mouth, 3 times a day, # 90 tablet, 0 Refills, Maintenance, 03/29/21 14:25:00 EST, Tablet, [facility] [id number], Partial fill upon patient request if the prescription is for a schedule II opioid drug., 17... Start Date: 03/29/21 Stop Date: 04/28/21 Status: Ordered lidocaine 5% topical film 1 film, Topically, Daily, knee pain, # 30 film, 0 Refills, Maintenance, 03/29/21 14:22:00 EST, [place], [facility] [id number], Partial fill upon patient request if the prescription is for a schedule II opioid drug., 1 film Topic... Start Date: 03/29/21 Stop Date: 04/28/21 Status: Ordered loratadine 10 mg oral tablet 10 mg, 1, tablet, By Mouth, Daily, # 30 tablet, Refills 0, Tot. Refills 0, Maintenance, 03/29/21 14:21:00 EST, Route to Pharmacy Electronically, [facility] [id number], Partial fill upon patient request if the prescription is f... Start Date: 03/29/21 Stop Date: 04/28/21 Status: Ordered losartan 25 mg oral tablet 25 mg, 1, tablet, By Mouth, Daily, Hold if SBP<100mm Hg, # 30 tablet, Refills 0, Tot. Refills 0,Maintenance, 03/29/21 14:21:00 EST, Route to Pharmacy Electronically, [facility] [id number], Partial fill upon patient request if... Start Date: 03/29/21 Stop Date: 04/28/21 Status: Ordered MetFORMIN (Eqv-Glucophage XR) 500 mg oral tablet, extended release 1 tablet, By Mouth, Daily, for 30 days, # 30 tablet, 11 Refills, Physician Stop 03/24/22 14:21:00 EST, 03/29/21 14:21:00 EST, [facility], [facility] [id number], 178, cm, 03/29/21 9:32:00EST, Height, 152.6, kg, 03/18/21 22:03:00 EST, Dry... Start Date: 03/29/21 Stop Date: 03/24/22 Status: Ordered OXcarbazepine 300 mg oral tablet 300 mg, 1, tablet, By Mouth, 2 times a day, # 60 tablet, Refills 0, Tot. Refills 0, Maintenance, 03/29/21 14:21:00 EST, Route to Pharmacy Electronically, [facility] [id number], Partial fill upon patient request if the [...] 03/29/21 14:25:00 EST, Route to Pharmacy Electronically, [facility] [id number], Partialfill upon patient request if the prescription is fo... Start Date: 03/29/21 Stop Date: 04/28/21 Status: Ordered risperiDONE 3 mg oral tablet 3 mg, 1, tablet, By Mouth, Daily at bedtime, # 30 tablet, Refills 0, Tot. Refills 0, Maintenance, 03/29/21 14:26:00 EST, Route to Pharmacy Electronically, [facility], [facility] [id number], Partial fill upon patient request if the [...] sleep apnea, Com plex sleep apnea(Confirmed) Active N/[facility]/Contact Lens Assistant-Remedios MárquezYtrzilt-[phone]/Health skilled nursing, active care coordination(Confirmed) Active Severe obesity(Confirmed) Active [...]
--- OUTSIDE RECORDS SUMMARY | 2022-08-02 17:41 | XMS_ITS | Continuity of Care Document ---
Author Name Unknown Organization [facility] Address [address] [place] [address]- Care Team Providers Care Medical Interpreter Name Role Phone Delia ACOSTA, Lamine Covington Primary Care Physician [phone] [facility]counter [facility] Date[facility]s): 03/05/20 - 04/04/20 [facility] [address] [place] [address]- Allergies, Adverse Reactions, Alerts No Known Medication Allergies Substance Reaction Severity Status lisinopril dry cough [...] 18:13:00 EST, Aerosol, Route to Pharmacy Electronically, [id number], [place], [place] - [id number], 177, cm... Start Date: 01/02/20 Status: Ordered amLODIPine 5 mg oral tablet 5 mg, 1, tablet, By Mouth, Daily, # 30 tablet, Refills 11, Tot. Refills 11, Maintenance, 02/03/20 16:45:00 EST, Route to Pharmacy Electronically, [facility] [place] - [id number], 178, cm, 01/28/20 6:28:00 EST, Height, 158, [...] 3 Refills, Maintenance, 02/24/20 11:16:00 EST, Tablet, [facility] [place] - [id number], Label in Stateless., 178, cm, 02/04/20 15:21:00 EST, Height, 158, kg, 01/07/20 14:48:00 EST, Dry Weight Start Date: 02/24/20 Status: Ordered chlorthalidone 25 mg oral tablet 12.5 mg, 0.5, tablet, By Mouth, Daily, # 15 tablet, Refills 5, Tot. Refills 5, Maintenance, 02/04/20 15:34:00 EST, Route to Pharmacy Electronically, [facility] [place] - [id number], Partial fill upon patient request if the [...] mL, 0 Refills, Maintenance, 02/24/20 11:15:00 EST, [place], [facility] [place] - [id number], 1 sprays Nares, Both 2 times a day, 178, cm, 02/04/20 15:21:00 EST, Height, 158, kg, 01/07/20 14:48:0... Start Date: 02/24/20 Status: Ordered Flovent Diskus 100 mcg/inh inhalation powder 1 puffs, Inhalation, 2 times a day, # 60 each, 0 Refills, Maintenance, 03/03/20 10:49:00 EST, Powder, [facility] [id number], Partial fill upon patient request if the prescription is for a schedule II opioid drug., 1 puffs Inha... Start Date: 03/03/20 Status: Ordered Gas-X with Maalox 250 mg-62.5 mg oral capsule 2 capsule, By Mouth, Every 2 hours, PRN for indigestion, # 48 capsule, 0 Refills, Acute 04/13/20 14:59:00 EST, 03/13/20 14:59:00 EST, Capsule, [facility] [id number], Partial fill upon patient request if the prescription is for... Start Date: 03/13/20 Stop Date: 04/13/20 Status: Ordered GuaiFENesin DM 20 mg-200 mg/10 mL oral liquid 10 mL, By Mouth, Every 4 hours, PRN as needed for cough, not to exceed 6 doses/day, # 120 mL, 0 Refills, Maintenance, 03/03/20 11:05:00 EST, Liquid, [place], [place] - [id number], Partial fill upon patient request if the prescription... Start Date: 03/03/20 Status: Ordered metFORMIN 500 mg oral tablet, extended release 1 tablet = 500 mg, By Mouth, Daily, # 30 tablet, 11 Refills, Maintenance, 02/03/20 16:44:00 EST, ERTablet, [place], [place] - [id number], Partial fill upon patient request if the [...] 01/28/20 9:40:00 EST, Route to Pharmacy Electronically, [facility], Partial fill upon patient request if the prescription is for a schedule II o... Start Date: 01/28/20 Status: Ordered omeprazole 20 mg oral enteric coated capsule 1 capsule = 20 mg, By Mouth, 2 times a day, # 60 capsule, 2 Refills, Soft Stop, 04/01/20 14:52:00 EST, [facility] - [place], [place] - [id number], Dose increased 05/09/19. Label in Stateless., 178, cm, 03/16/20 12:24:00 EST, Height, 153.2, [...] sleep apnea, Com plex sleep apnea(Confirmed) Active [facility]/Permanent Waver-Remedios Kiomjzd-[phone]/Health residential, active care coordination(Confirmed) Active 1Impression: 1. [...]
--- OUTSIDE RECORDS SUMMARY | 2022-08-02 17:41 | XMS_ITS | Continuity of Care Document ---
Author Name Unknown Organization [facility] Address [address] [place] [address]- Care Team Providers Care Acting Section Chief Name Role Phone Delia ACOSTA, Lamine Covington Primary Care Physician [facility]): [facility] - 03/13/20 [facility] [address] [place], [place] [address] Attending Physician: AdmMarsha bourne Admitting Physician: AdmtrMarsha Referring Physician: Admtr, Ar8 Allergies, Adverse Reactions, Alerts Substance Reaction Severity [...] 18:13:00 EST, Aerosol, Route to Pharmacy Electronically, [id number], [place], [place] - [id number], 177, cm... Start Date: 01/02/20 Status: Ordered amLODIPine 5 mg oral tablet 5 mg, 1, tablet, By Mouth, Daily, # 30 tablet, Refills 11, Tot. Refills 11, Maintenance, 02/03/20 16:45:00 EST, Route to Pharmacy Electronically, [facility], [facility] [id number], 178, cm, 01/28/20 6:28:00 EST, Height, 158, [...] 3 Refills, Maintenance, 02/24/20 11:16:00 EST, Tablet, [facility] [id number], Label in Malawian., 178, cm, 02/04/20 15:21:00 EST, Height, 158, kg, 01/07/20 14:48:00 EST, Dry Weight Start Date: 02/24/20 Status: Ordered chlorthalidone 25 mg oral tablet 12.5 mg, 0.5, tablet, By Mouth, Daily, # 15 tablet, Refills 5, Tot. Refills 5, Maintenance, 02/04/20 15:34:00 EST, Route to Pharmacy Electronically, [facility] [id number], Partial fill upon patient request if the [...] mL, 0 Refills, Maintenance, 02/24/20 11:15:00 EST, [place], [facility] [id number], 1 sprays Nares, Both 2 times a day, 178, cm, 02/04/20 15:21:00 EST, Height, 158, kg, 01/07/20 14:48:0... Start Date: 02/24/20 Status: Ordered Flovent Diskus 100 mcg/inh inhalation powder 1 puffs, Inhalation, 2 times a day, # 60 each, 0 Refills, Maintenance, 03/03/20 10:49:00 EST, Powder, [facility] [id number], Partial fill upon patient request if the prescription is for a schedule II opioid drug., 1 puffs Inha... Start Date: 03/03/20 Status: Ordered Gas-X with Maalox 250 mg-62.5 mg oral capsule 2 capsule, By Mouth, Every 2 hours, PRN for indigestion, # 48 capsule, 0 Refills, Acute 04/13/20 14:59:00 EST, 03/13/20 14:59:00 EST, Capsule, [facility] [id number], Partial fill upon patient request if the prescription is for... Start Date: 03/13/20 Stop Date: 04/13/20 Status: Ordered GuaiFENesin DM 20 mg-200 mg/10 mL oral liquid 10 mL, By Mouth, Every 4 hours, PRN as needed for cough, not to exceed 6 doses/day, # 120 mL, 0 Refills, Maintenance, 03/03/20 11:05:00 EST, Liquid, [facility] [id number], Partial fill upon patient request if the prescription... Start Date: 03/03/20 Status: Ordered metFORMIN 500 mg oral tablet, extended release 1 tablet = 500 mg, By Mouth, Daily, # 30 tablet, 11 Refills, Maintenance, 02/03/20 16:44:00 EST, ERTablet, [facility] [id number], Partial fill upon patient request if the [...] 01/28/20 9:40:00 EST, Route to Pharmacy Electronically, [facility], Partial fill upon patient request if the prescription is for a schedule II o... Start Date: 01/28/20 Status: Ordered omeprazole 20 mg oral enteric coated capsule 1 capsule = 20 mg, By Mouth, 2 times a day, # 60 capsule, 2 Refills, Soft Stop, 01/02/20 18:13:00 EST, [facility] [id number], Dose increased 05/09/19. Label in Malawian., 177, cm, 12/30/19 11:37:00 EST, Height, 135, kg, ... Start Date: 01/02/20 Status: Ordered Tessalon Perles 100 mg oral capsule 1 capsule = 100 mg, By Mouth, 3 times a day, for 10 days, # 30 capsule, 0 Refills, Acute 03/23/20 14:59:00 EST, 03/13/20 14:59:00 EST, Capsule, [place], [place] - [id number], Partialfill upon patient request if the prescription is fo... Start Date: 03/13/20 Stop Date: 03/23/20 Status: Ordered zolpidem 10 mg oral tablet [...] sleep apnea, Com plex sleep apnea(Confirmed) Active [facility]/Fastener Sewing Machine Operator-Remedios MárquezFvvgpaq-[phone]/Health detention, active care coordination(Confirmed) Active 1Impression: 1. Mildly [...]
--- OUTSIDE RECORDS SUMMARY | 2022-08-02 17:41 | XMS_ITS | Continuity of Care Document ---
Author Name Unknown Organization [facility] Address [address] [place] [address]- Care Team Providers Care Store Consultant Name Role Phone Delia ACOSTA, Lamine Covington Primary Care Physician [phone] Encounter [facility] Date(s): 01/07/20 - 01/28/[address] [address]- Encounter Diagnosis COVID-19(Final) - 01/06/20 Hypokalemia(Final) - 01/06/20 Hypoxia(Final) - 01/06/20 Nausea(Final) - 01/06/20 Vomiting(Final) - 01/06/20 Diarrhea(Final) - 01/06/20 Discharge Disposition: A-Transfer VNA/Home Health Attending Physician: Treasure ACOSTA, Crow Baker Admitting Physician: Lois ACOSTA, Farrah Gilbert Referring Physician: Not on Staff, Referring MD [...] 18:13:00 EST, Aerosol, Route to Pharmacy Electronically, [id number], [place], [place] - [id number], 177, cm... Start Date: 01/02/20 Status: Ordered amLODIPine 5 mg oral tablet 5 mg, 1, tablet, By Mouth, Daily, # 30 tablet, Refills 11, Tot. Refills 11, Maintenance, 05/09/19 8:48:00 EDT, Route to Pharmacy Electronically, [place], [place] -, 177, cm, 04/02/2009:47:00 EST, Height, [...] Daily, # 30 tablet, 1 Refills, Maintenance, 01/02/20 18:13:00 EST, Tablet, [place], [place] - [id number], Label in Thai., 177, cm, 12/30/19 11:37:00 EST, Height, 135, kg, 03/30/18 19:13:00 EST, Dry Weight Start Date: 01/02/20 Status: Ordered divalproex sodium 500 mg oral tablet, extended release 2 tablet = 1,000 mg, Daily at bedtime, via psychiatry Dr Andres Ferro, 0 Refills, Maintenance, 12/18/19 9:44:00 EDT Start Date: 12/18/19 Status: Ordered Flonase 50 mcg/inh nasal spray 2 sprays, Nares, Both, Daily in AM, # 16 Gm, 3 Refills, Maintenance, 08/28/19 8:53:00 EDT, [facility], [place], [place] -, 2 sprays Nares, Both Daily in AM, 177, cm, 07/29/19 13:56:00 EDT, Height, 135, kg, 03/30/18 19:13:00 EST, Dry Weight Start Date: 08/28/19 Status: Ordered Flonase 50 mcg/inh nasal spray 1 sprays, Nares, Both, 2 times a day, # 9.9 mL, 0 Refills, Maintenance, 12/18/19 17:38:00 EDT, [facility], [facility] [id number], 1 sprays Nares, Both 2 times a day, 177, cm, 10/15/19 14:42:00 EDT, Height, 135, kg, 03/30/18 19:13:0... Start Date: 12/18/19 Status: Ordered hydrocortisone 1% topical cream 1 application, Topically, 2 times a day, # 30 Gm, 0 Refills, Acute 01/30/20 11:37:00 EST, 12/30/19 11:36:00 EST, Cream, [facility] [id number], 1 application Topically 2 timesa day, 177, cm, 12/30/19 10:51:00 EST, Height, 135,... Start Date: 12/30/19 Stop Date: 01/30/20 Status: Ordered ketoconazole 2% topical cream 1 application, Topically, Daily, # 30 Gm, 0 Refills, Acute 01/29/20 11:37:00 EST, 12/30/19 11:36:00EST, Cream, [facility] [id number], 1 application Topically Daily, 177, cm,12/30/19 10:51:00 EST, Height, 135, kg, 03/30/18 19... Start Date: 12/30/19 Stop Date: 01/29/20 Status: Ordered metFORMIN 500 mg oral tablet, extended release See Instructions, TAKE ONE TABLET BY MOUTH DAILY, # 30 tablet, 5 Refills, Soft Stop, 05/09/19 8:49:00 EDT, [place], [place] -, 177, cm, 04/02/19 10:47:00 EST, [...] 01/28/20 9:40:00 EST, Route to Pharmacy Electronically, [facility], Partial fill upon patient request if the prescription is for a schedule II o... Start Date: 01/28/20 Status: Ordered omeprazole 20 mg oral enteric coated capsule 1 capsule = 20 mg, By Mouth, 2 times a day, # 60 capsule, 2 Refills, Soft Stop, 01/02/20 18:13:00 EST, [facility] [place], [place] - [id number], Dose increased 05/09/19. Label in Thai., 177, cm, 12/30/19 11:37:00 EST, Height, 135, kg, ... Start Date: 01/02/20 Status: Ordered zolpidem 10 mg oral tablet [...] sleep apnea, Com plex sleep apnea(Confirmed) Active BHN/CCA/Wet Mix Operator-Remedios MárquezDhcqkxs-[phone]/Health residential, active care coordination(Confirmed) Active 1Impression: 1. [...] Shah MD Dictated Date/Time: 02/25/11 11:07 a Results Radiology Reports * Exam Date Time Procedure Performing Provider Status 01/16/20 1:52 PM Chest Portable Dimitrios Cody (V erified) Notes: (Chest Portable) Reason For Exam: Shortness of Breath RESULT: Chest Portable Chest Portable Reason: Shortness of Breath COMPARISON: January 11, 2020 FINDINGS: LINES AND TUBES: None. LUNGS AND PLEURA: Lung volumes remain low. Diffuse interstitial and lower lobe airspace opacities have diminished somewhat. No pleural effusion. No pneumothorax. HEART, MEDIASTINUM AND ZAIRE: Heart size is mildly increased, but stable Normal mediastinal and hilar contour. BONES AND SOFT TISSUES: No acute abnormality. IMPRESSION: Slightly improved aeration. WSN: [id number] Ordering Physician: Rachael Brand Dictated By: Shmuel Caldera MD Dictated Date/Time: 01/16/20 1:59 pm Reviewed By: Shmuel Cadlera MD Signed By: Shmuel Caldera MD Signed Date/Time: 01/16/20 1:59 pm Transcribed By: TIP Transcribed Date/Time: 01/16/20 1:58 pm * Exam Date Time Procedure Performing Provider Status 01/11/20 1:43 PM Chest Portable Emelina Oglesby; Darrel (V erified) Notes: (Chest Portable) Reason For Exam: Fever RESULT: Chest Portable AP upright portable chest dated January 11, 2020 at 1329 hours. Comparison films are from 2019. HISTORY: Fever. FINDINGS: The cardiac silhouette is increased in size and has increased from the prior study. Thereare bilateral airspace and to a lesser extent interstitial infiltrates left greater than right. No pleural effusions are appreciated. Visualized osseous structures are unremarkable. IMPRESSION: Developing bilateral infiltrates certainly consistent with pneumonia. Examination 00475. Thank you for allowing me to participate in the care of this patient. WSN: [id number] Ordering Physician: Loki Oswald Dictated By: Cristian Wagoner MD Dictated Date/Time: 01/11/20 1:46 pm Reviewed By: Cristian Wagoner MD Signed By: Cristian Wagoner MD Signed Date/Time: 01/11/20 1:46 pm Transcribed By: TIP Transcribed Date/Time: 01/11/20 1:45 pm * Exam Date Time Procedure Performing Provider Status 01/06/20 7:35 PM Chest Portable Marcelina Myers; Auth (V erified) Notes: (Chest Portable) Reason For Exam: Cough RESULT: Chest Portable Chest Portable Hx of Present Illness: got flu shot on Monday, since Monday has been having non productive cough,abd pain, nausea and diarrhea; Reason: Cough; Clinical Question(s): Pneumonia; Special Instructions: This is a protocol film and radiologist should call any findings to the Charge Nurse or appropriate provider COMPARISON: 04/18/2019 FINDINGS: LINES AND TUBES: None. LUNGS AND PLEURA: There are patchy opacities at the periphery of both lungs. Overall lung volumes are low. No pleural effusion. No pneumothorax. HEART, MEDIASTINUM AND ZAIRE: Heart is normal in size. Normal mediastinal and hilar contour. BONES AND SOFT TISSUES: No acute abnormality. IMPRESSION: Findings suggest atypical pneumonia. This pattern would be compatible with COVID-19 infection in the appropriate clinical setting (fever, dry cough, lymphopenia), but other etiologies remain in the differential. WSN: [id number] Ordering Physician: Marilu Cummings Dictated By: Maisha Ramos MD Dictated Date/Time: 01/06/20 7:39 pm Reviewed By: Maisha Ramos MD Signed By: Maisha Ramos MD Signed Date/Time: 01/06/20 7:39 pm Transcribed By: TIP Transcribed Date/Time: 01/06/20 7:38 pm Vital Signs Most recent to oldest [Reference Range]: 1 2 3 Height 178 cm (01/28/20 5:30 AM) 178 cm (01/27/20 8:10 PM) 178 cm (01/27/20 4:13 PM) Weight 158 kg (01/07/20 2:48 PM) Oxygen Saturation [94-100 %] 98 % (01/28/20 5:30 AM) 95 % (01/28/20 12:01 AM) 95 % (01/27/20 8:10 PM) Pulse Rate [55-90 bpm] 90 bpm (01/28/20 9:23 AM) 87 bpm (01/28/20 5:30 AM) 85 bpm (01/27/20 8:10 PM) Body Mass Index [18.5-24.99] 49.87 *>HHI* (01/07/20 2:48 PM) Blood Pressure [90-138/55-84 mm Hg] 111/36mm Hg (01/28/20 9:23 AM) 140/84mm Hg *H* (01/28/20 5:30 AM) 131/66mm Hg (01/27/20 8:10 PM) Respiratory Rate [16-30 br/min] 18 br/min (01/28/20 5:30 AM) 18 br/min (01/27/20 8:10 PM) 20 br/min (01/27/20 4:13 PM) Temperature [96.8-100.4 DegF] 97.5 DegF (01/28/20 5:30 AM) 98.1 DegF (01/27/20 8:10 PM) 98.7 DegF (01/27/20 4:13 PM) Liters per Minute 2 L/min (01/23/20 9:14 PM) 2 L/min (01/23/20 2:00 PM) 2 L/min (01/23/20 10:54 AM) Mode of Delivery (Oxygen) Room air (01/28/20 5:30 AM) Room air (01/27/20 8:10 PM) Room air (01/27/20 4:13 PM) Blood pressure sites Arm, right (01/28/20 9:23 AM) Arm, right (01/28/20 5:30 AM) Arm, right (01/27/20 8:10 PM) Temperature Route Oral (01/28/20 5:30 AM) Oral (01/27/20 8:10 PM) Oral (01/27/20 4:13 PM) Dry Weight 158 kg (01/07/20 2:48 PM) Social History Social History Type Response Smoking Status Never smoker entered on: 10/02/13 Sex
--- OUTSIDE RECORDS SUMMARY | 2022-08-02 17:41 | XMS_ITS | Continuity of Care Document ---
Author Name Unknown Organization [facility] Address [address] [place] [address]- Care Team Providers Care Society Editor Name Role Phone Delia ACOSTA, Lamine Covington Primary Care Physician Encounter [facility] Date(s): 12/01/21 - 12/31/21 [facility] [address] [place] [address]- Allergies, Adverse Reactions, Alerts Substance Reaction Severity Status lisinopril dry cough Active Dust Mild Active Milk Products Nausea and vomiting Persistent Moderate Active cloNIDine confusion Active Immunizations Given and Recorded Vaccine Date Status Refusal Reason influenza virus vaccine, inactivated 03/19/21 Give n influenza virus vaccine, inactivated 12/30/19 Give n influenza virus vaccine, inactivated 1 10/11/11 Gi annai influenza virus vaccine, inactivated 2 12/30/10 Gi [...] tablet, Refills 0, Tot. Refills 0, Maintenance, 12/06/21 10:46:00 EDT, Route to Pharmacy Electronically, [facility] [place], [place] - [id number],Partial fill upon patient request if the prescripti... Start Date: 12/06/21 Status: Ordered buPROPion 150 mg/24 hours (XL) oral tablet, extended release 1 tablet, By Mouth, Daily, # 30 tablet, 0 Refills, Maintenance, 12/02/21 7:44:00 EDT, [facility] [id number], 30, 1 tablet By Mouth Daily, 177.8, cm, 10/20/21 8:51:00 EDT, Height, 136.078, kg, 09/02/21 19:37:00 EDT, Dry Weight Start Date: 12/02/21 Status: Ordered docusate sodium 100 mg oral capsule 1 capsule, By Mouth, Daily, # 30 each, 1 Refills, Maintenance, 12/06/21 10:45:00 EDT, [facility] [id number], 177.8, cm, 12/06/21 10:26:00 EDT, Height, 136.078, kg, 09/02/21 19:37:00 EDT, Dry Weight Start Date: 12/06/21 Status: Ordered gabapentin 600 mg oral tablet 1 tablet = 600 mg, By Mouth, 3 times a day, # 90 tablet, 5 Refills, Maintenance, 12/06/21 10:44:00 EDT, Tablet, [facility] [place] - [id number], Partial fill upon patient request if the prescription is for a schedule II opioid drug., 17... Start Date: 12/06/21 Stop Date: 06/04/22 Status: Ordered hydrOXYzine pamoate 50 mg oral capsule = 50 mg, By Mouth, Every 6 hours, PRN Anxiety, # 60 capsule, 0 Refills, Maintenance, 12/06/21 10:45:00 EDT, Capsule, [facility] [place] - [id number], Partial fill upon patient request if the prescription is for a schedule II opioid drug... Start Date: 12/06/21 Status: Ordered loratadine 10 mg oral tablet 10 mg, 1, tablet, By Mouth, Daily, # 30 tablet, Refills 3, Tot. Refills 3, Maintenance, 12/06/21 10:45:00 EDT, Route to Pharmacy Electronically, [facility] [place] [id number], Partial fill upon patient request if the prescription is f... Start Date: 12/06/21 Stop Date: 04/05/22 Status: Ordered paliperidone 234 mg/1.5 mL intramuscular suspension, extended release = 234 mg, Intramuscular, Every 28 days, Due on 09/13/2021, # 1 each, 1 Refills, Maintenance, 08/18/21 10:16:00 EDT, [place], [place] - [id number], Partial fill upon patient request ifthe prescription is for a schedule II opioid drug.... Start Date: 08/18/21 Status: Ordered pantoprazole 40 mg oral delayed release tablet = 40 mg, By Mouth, Daily, # 30 tablet, 1 Refills, Maintenance, 12/06/21 10:45:00 EDT, EC Tablet, 177.8, cm, 12/06/21 10:26:00 EDT, Height, 136.078, kg, 09/02/21 19:37:00 EDT, Dry Weight Start Date: 12/06/21 Status: Ordered traZODone 100 mg oral tablet 100 mg, 1, tablet, By Mouth, Daily at bedtime, # 30 tablet, Refills 0, Tot. Refills 0, Maintenance,12/06/21 10:45:00 EDT, Route to Pharmacy Electronically, [place], [place] - [id number], Partial fill upon patient request if the presc... Start Date: 12/06/21 Status: Ordered Problem List Condition Confirmation Course [...] sleep apnea, Complex sleep apnea Confirmed Active BHN/CCA/Assistant Superintendent-Tia Jarrett [phone]/Health longterm, active care coordination Confirmed Active Treatment-emergent central [...] Care team information Care Team Personnel Name: Suzy Yanes RN Position: [facility] RN Member Role: Primary Care Nurse Name: Ela Beltrán RN Position: [facility] AMB Nurse Member Role: Primary Care Nurse Name: Alaina Gillette RN Position: [facility] RN Member Role: Primary Care Nurse Name: Lorna Gentile NP Position: [facility] Associate Professional Member Role: Primary Care Nurse Address: Address: [address] [place] [address]- Name: Venus Jaramillo Position: [facility] RN Member Role: Primary Care Nurse Name: Flor Donnelly RN Position: [facility] RN Member Role: Primary Care Nurse Name: Ruiz Matson RN Position: [facility] RN Member Role: Primary Care Nurse Name: Belle Ames RN Position: [facility] RN Member Role: Primary Care Nurse Name: Alex Rios RN Position: [facility] RN Member Role: Primary Care Nurse Name: Daniel Hernandez III, RN Position: [facility] RN Member Role: Primary Care Nurse Name: Jordi Carter MD Position: [facility] Renal MD Member Role: Lifetime Consulting Physician Address: Address: [address] [facility], [place] [address]- [place] Name: Loren Hamlin RN Position: [facility] RN Member Role: Primary Care Nurse Name: Malia Wise RN Position: [facility] RN Member Role: Primary Care Nurse Name: Kristyn Salcido RN Position: [facility] RN Member Role: Primary Care Nurse Name: Amaya Ontiveros RN Position: [facility] RN Member Role: Primary Care Nurse Name: Lamine Lin MD Position: [facility] Primary Care Physician Member Role: PCP Address: Address: [address] [place] [address] [place] [address]- Name: Renzo Lyons RN Position: [facility] RN Member Role: Primary Care Nurse Name: Rose Abraham RN Position: [facility] Hospital Emanations Analysis Technician Member Role: Primary Care Nurse Name: Vinod Botello MD Position: [facility] Psychiatry MD Member Role: Lifetime Consulting Physician Address: Address: [address] [place] [address]- Care Team Related Persons Name: MALIA HARRIS Name: KATHLEEN JACQUES Address: home [address] [place] [address] Name: VIRGIL PARKS Address: home [address] [place] [address] Name: MICHAELA MONTENEGRO Address: home UNKNOWN Name: MIGUEL PUENTES Address: home [address] [place] [address]
--- OUTSIDE RECORDS SUMMARY | 2022-08-02 17:41 | XMS_ITS | Continuity of Care Document ---
Author Name Unknown Organization [facility] Address [address] [place] [address]- Care Team Providers Care Mexican Food Maker Hand Name Role Phone Delia ACOSTA, Lamine Covington Primary Care Physician [place] [facility] 02/11/21 - 03/13/21 [facility] [address] [address]- Attending Physician: Marsha Ron Admitting Physician: Admtr, Marsha Referring Physician: Admtr, Ar8 Allergies, Adverse Reactions, [...] 09/14/2010 Medications amLODIPine 5 mg oral tablet 1 tablet, By Mouth, Daily, # 30 tablet, 5 Refills, [facility], 177, cm, 02/04/21 10:29:00 EST,Height, 148, kg, 10/16/20 15:12:00 EDT, Dry Weight Start Date: 03/08/21 Status: Ordered chlorthalidone 25 mg oral tablet 12.5 mg, 0.5, tablet, By Mouth, Daily, # 15 tablet, Refills 1, Tot. Refills 1, Maintenance, 10/23/20 10:48:00 EDT, [id number] Partial fill upon patient request if the prescription is for a schedule II opioid... Start Date: 10/23/20 Status: Ordered Colace sodium 100 mg oral capsule 100 mg, 1, capsule, By Mouth, Daily in AM, # 30 capsule, Refills 1, Tot. Refills 1, Maintenance, 10/23/20 11:49:00 EDT, Route to Pharmacy Electronically, [facility][id number], Partial fill upon patientrequest if the prescription is for a schedule II op... Start Date: 10/23/20 Status: Ordered diclofenac 1% topical gel 1 application, Topically, 4 times a day, # 100 Gm, 0 Refills, Maintenance, 11/23/20 13:32:00 EDT, Gel, [place], [place] - [id number], Partial fill upon patient request if the prescription is for a schedule II opioid drug., 177, cm, 10... Start Date: 11/23/20 Status: Ordered diphenhydrAMINE 50 mg oral tablet = 50 mg, By Mouth, Every 6 hours, PRN Anxiety, # 60 tablet, 1 Refills, Maintenance, 10/23/20 10:48:00 EDT, [id number] Partial fill upon patient request if the prescription is for a schedule II opioid drug., 177, cm, 10/22/20 21:57:00... Start Date: 10/23/20 Status: Ordered folic acid 1 mg oral tablet See Instructions, TAKE ONE TABLET BY MOUTH EVERY DAY, # 30 tablet, Refills 5, Tot. Refills 5, Maintenance, 03/07/21 15:15:00 EST, Instructions Replace Required Details, Route to Pharmacy Electronically, [place], [place] - [id number],... Start Date: 03/07/21 Status: Ordered gabapentin 600 mg oral tablet 1 tablet, By Mouth, 3 times a day, # 90 tablet, 1 Refills, [facility], 177, cm, 02/04/21 10:29:00 EST, Height, 148, kg, 10/16/20 15:12:00 EDT, Dry Weight Start Date: 03/08/21 Status: Ordered loratadine 10 mg oral tablet 1, tablet, By Mouth, Daily, # 30 tablet, Refills 1, Route to Pharmacy Electronically, [facility], 177, cm, 12/17/20 10:34:00 EDT, Height, 148, kg, 10/16/20 15:12:00 EDT, Dry Weight Start Date: 01/01/21 Status: Ordered losartan 25 mg oral tablet 1 tablet, By Mouth, Daily, # 30 tablet, 5 Refills, [facility], 177, cm, 02/04/21 10:29:00 EST,Height, 148, kg, 10/16/20 15:12:00 EDT, Dry Weight Start Date: 03/08/21 Status: Ordered MetFORMIN (Eqv-Glucophage XR) 500 mg oral tablet, extended release 1 tablet, By Mouth, Daily, # 30 tablet, 11 Refills, [facility], 177, cm, 02/04/21 10:29:00 EST, Height, 148, kg, 10/16/20 15:12:00 EDT, Dry Weight Start Date: 02/10/21 Status: Ordered MiraLax oral powder for reconstitution = 17 Gm, By Mouth, Daily, # 255 Gm, 1 Refills, Maintenance, 10/23/20 10:49:00 EDT, [facility]/pharmacy #[id number], Partial fill upon patient request if the prescription is for a schedule II opioid drug., 17 Gm By Mouth Daily, 177, cm, 10/22/20 21:57:00 EDT, Lori... Start Date: 10/23/20 Status: Ordered OXcarbazepine 300 mg oral tablet 300 mg, 1, tablet, By Mouth, 2 times a day, # 60 tablet, Refills 1, Tot. Refills 1, Maintenance, 10/23/20 10:48:00 EDT, Route to Pharmacy Electronically, [facility]/pharmacy #[id number], Partial fill upon patientrequest if the prescription is for a schedule II op... Start Date: 10/23/20 Status: Ordered pantoprazole 40 mg oral delayed release tablet See Instructions, TAKE ONE TABLET BY MOUTH EVERY DAY, # 30 tablet, 2 Refills, Maintenance, 03/07/2214:17:00 EST, 177, cm, 02/04/21 10:29:00 EST, Height, 148, kg, 10/16/20 15:12:00 EDT, Dry Weight Start Date: 03/07/21 Status: Ordered RisperDAL 2 mg oral tablet 2 mg, 1, tablet, By Mouth, Daily, # 30 tablet, Refills 1, Tot. Refills 1, Maintenance, 10/23/20 10:51:00 EDT, Route to Pharmacy Electronically, [facility]/pharmacy #[id number], Partial fill upon patient request if the prescription is for a schedule II opioid drug.... Start Date: 10/23/20 Status: Ordered risperiDONE 3 mg oral tablet 3 mg, 1, tablet, By Mouth, Daily at bedtime, # 30 tablet, Refills 1, Tot. Refills 1, Maintenance, 10/23/20 10:52:00 EDT, Route to Pharmacy Electronically, [facility]/pharmacy #[id number], Partial fill upon patient request if the prescription is for a schedule II o... Start Date: 10/23/20 Status: Ordered Tylenol 8 HR Arthritis Pain 650 mg oral tablet, extended release 1 tablet = 650 mg, By Mouth, Every 8 hours, PRN as needed for pain, # 50 tablet, 0 Refills, Maintenance, 12/17/20 15:15:00 EDT, ER Tablet, [facility] [place], [place] - [id number], Partial fillupon patient request if the prescription is for a s... Start Date: 12/17/20 Status: Ordered Problem List Condition Effective Dates Status Health Status Inform ant Diabetes mellitus(Confirmed) Active Esophageal reflux (GERD)(Confirmed) Active Gastric polyp(Confirmed) 1 Active Gynecomastia(Confirmed) Active Hypercholesterolemia(Confirmed) Active Hypertension(Confirmed) Active Sleep related hypoxia(Confirmed) Active Eder(Confirmed) 2012 Active Morbid obesity with BMI of 4 5.0-49.9, adult(Confirmed) Active NAFLD (nonalcoholic fatty li evelia disease)(Confirmed) 2 Active Obstructive sleep apnea, Com plex sleep apnea(Confirmed) Active BHN/CCA/Cra Officer-Remedios Woaloaz-[phone]/Health halfway, active care coordination(Confirmed) Active Severe obesity(Confirmed) Active [...]
--- OUTSIDE RECORDS SUMMARY | 2022-08-02 17:42 | XMS_ITS | Continuity of Care Document ---
Author Name Unknown Organization [facility] Address [address] [place] [address]- Care Team Providers Care Bicycle Designer Name Role Phone Delia ACOSTA, Lamine Covington Primary Care Physician [facility]counter [facility] Date(s): 07/21/20 - 08/20/20 [facility] [address] [place] [address]- Allergies, Adverse Reactions, Alerts Substance Reaction Severity Status lisinopril dry cough Active cloNIDine confusion Active Immunizations Given and Recorded Vaccine Date Status Refusal Reason SARS-CoV-2 (COVID-19) mRNA BNT-162b2 vac 08/20/20 Given tetanus-diphtheria toxoids (Td) 12/30/19 Given influenza virus vaccine, inactivated 12/30/19 Give n influenza virus vaccine, inactivated 1 10/11/11 Gi annia influenza virus vaccine, inactivated 2 12/30/10 Gi annia pneumococcal 23-valent vaccine 07/19/11 Given tetanus/diphtheria/pertussis, acel(Tdap) 08/11/09 Given 1Admin Note: VIS 08/31 2Admin Note: flulaval vis given vis date 09/14/2010 Medications albuterol CFC free 90 mcg/inh inhalation aerosol 2, puffs, Inhalation, Every 4 hours, PRN, # 1 each, Refills 0, Tot. Refills 0, Maintenance, 01/02/20 18:13:00 EST, Aerosol, Route to Pharmacy Electronically, [id number], [facility] [place], [place] - [id number], 177, cm... Start Date: 01/02/20 Status: Ordered amLODIPine 5 mg oral tablet 5 mg, 1, tablet, By Mouth, Daily, # 30 tablet, Refills 11, Tot. Refills 11, Maintenance, 02/03/20 16:45:00 EST, Route to Pharmacy Electronically, [facility], [place] - [id number], 178, cm, 01/28/20 6:28:00 EST, Height, 158, kg, 01/07/20... Start Date: 02/03/20 Status: Ordered cetirizine 10 mg oral tablet 1 tablet = 10 mg, By Mouth, Daily, # 30 tablet, 5 Refills, Maintenance, 07/01/20 9:26:00 EDT, Tablet, [facility], [place] - [id number], Label in Danish., 177.9, cm, 04/16/20 13:38:00 EST, Height, 153.2, kg, 03/16/20 12:24:00 EST, Dry We... Start Date: 07/01/20 Status: Ordered chlorthalidone 25 mg oral tablet 12.5 mg, 0.5, tablet, By Mouth, Daily, # 15 tablet, Refills 5, Tot. Refills 5, Maintenance, 07/31/20 11:20:00 EDT, Route to Pharmacy Electronically, [facility], [place] - [id number], Partial fill upon patient request if the prescription... Start Date: 07/31/20 Status: Ordered Flonase 50 mcg/inh nasal spray 1 sprays, Nares, Both, 2 times a day, # 9.9 mL, 0 Refills, Maintenance, 02/24/20 11:15:00 EST, [place], [facility], [place] - [id number], 1 sprays Nares, Both 2 times a day, 178, cm, 02/04/20 15:21:00 EST, Height, 158, kg, 01/07/20 14:48:0... Start Date: 02/24/20 Status: Ordered gabapentin 600 mg oral tablet 1 tablet = 600 mg, By Mouth, 3 times a day, # 90 tablet, 0 Refills, Maintenance, 07/17/20 14:13:00 EDT, Tablet, [facility], [place] - [id number], Partial fill upon patient request if the prescription is for a schedule II opioid drug., 17... Start Date: 07/17/20 Status: Ordered hydrocortisone 1% topical cream 1 application, Topically, 2 times a day, to arms apply in a thin film to the affected skin and rub in gently and completely, # 15 Gm, 0 Refills, Acute 09/20/20 10:44:00 EDT, 08/20/20 10:44:00 EDT, Cream, [place], [place] - [id number]... Start Date: 08/20/20 Stop Date: 09/20/20 Status: Ordered metFORMIN 500 mg oral tablet, extended release 1 tablet = 500 mg, By Mouth, Daily, # 30 tablet, 11 Refills, Maintenance, 02/03/20 16:44:00 EST, ERTablet, [facility] [id number], Partial fill upon patient request if the prescription is for a schedule II opioid drug., 178, c... Start Date: 02/03/20 Status: Ordered non slip bath mat non slip bath mat, See Instructions, # 1 each, Refills 0, Tot. Refills 0, Maintenance, dx: ESHA, SOB, LEFT LEG PAIN LEFT LEG SWELLING RISK FOR CCGPLB55.81 G46.33,RO6.2.M79.605,R22.42, 07/23/20 13:54:00 EDT, Supply Start Date: 07/23/20 Status: Ordered olanzapine 5 mg oral tablet 5 mg, 1, tablet, By Mouth, Daily in AM, # 30 tablet, Refills 0, Tot. Refills 0, Maintenance, 01/28/20 9:40:00 EST, Route to Pharmacy Electronically, [facility], Partial fill upon patient request if the prescription is for a schedule II o... Start Date: 01/28/20 Status: Ordered omeprazole 20 mg oral enteric coated capsule 1 capsule = 20 mg, By Mouth, 2 times a day, # 60 capsule, 2 Refills, Soft Stop, 07/01/20 9:26:00 EDT, [facility] [id number], Label in Danish, 177.9, cm, 04/16/20 13:38:00 EST, Height, 153.2, kg, 03/16/20 12:24:00 EST, Dry Weight Start Date: 07/01/20 Status: Ordered OXcarbazepine 300 mg oral tablet TAKE ONE TABLET BY MOUTH IN THE MORNING AND TAKE ONE TABLET BY MOUTH AT BEDTIME Start Date: 08/20/20 Status: Ordered temazepam 15 mg oral capsule TAKE ONE CAPSULE BY MOUTH AT BEDTIME Start Date: 08/20/20 Status: Ordered Vraylar 1.5 mg oral capsule TAKE ONE CAPSULE BY MOUTH AT BEDTIME Start Date: 08/20/20 Status: Ordered wedge pillows wedge pillows, See Instructions, # 2 each, Refills 0, Tot. Refills 0, Maintenance, use 1 pillow to elevate head and 1 pillow to elevate left leg duration: lifetime dx: ESHA, SOB, LEFT LEG PAIN LEFT LEG SWELLING G46.33,RO6.2.M79.605,R22.42, 06/0... Start Date: 07/22/20 Status: Ordered Problem List Condition Effective Dates Status Health Status Inform ant Diabetes mellitus(Confirmed) Active Esophageal reflux (GERD)(Confirmed) Active Gastric polyp(Confirmed) 1 Active Gynecomastia(Confirmed) Active Hypercholesterolemia(Confirmed) Active Hypertension(Confirmed) Active Wenckebach(Confirmed) 2012 Active Morbid obesity with BMI of 4 5.0-49.9, adult(Confirmed) Active NAFLD (nonalcoholic fatty li evelia disease)(Confirmed) 2 Active Obstructive sleep apnea, Com plex sleep apnea(Confirmed) Active BHN/CCA/Medical Radiation Therapist-Remedios MárquezEaaoohr-[phone]/Health halfway, active care coordination(Confirmed) Active 1On EGD in 03/2020. Repeat EGD [...]
--- OUTSIDE RECORDS SUMMARY | 2022-08-02 17:42 | XMS_ITS | Continuity of Care Document ---
Author Name Unknown Organization [facility] ter Address [address] [place] [id number]- Care Team Providers Care News Commentator Name Role Phone Sylvia Escobar MD Primary Care Physician [place] [facility] [place] 06/25/[address] [address]- Discharge Disposition: Transfer to [facility] Facility Attending Physician: Leonel Flowers MD Admitting Physician: Leonel Flowers MD Referring Physician: Not on Staff, Referring MD [...] 06/09/21 10:32:00 EDT, Route to Pharmacy Electronically, [facility] [id number], Partial fill upon patient request if... Start Date: 06/09/21 Stop Date: 08/08/21 Status: Ordered benztropine 0.5 mg oral tablet 0.5 mg, 1, tablet, By Mouth, 2 times a day, # 60 tablet, Refills 1, Tot. Refills 1, Maintenance, 06/09/21 10:36:00 EDT, Route to Pharmacy Electronically, [facility] [id number], Partial fill upon patient request if the prescrip... Start Date: 06/09/21 Status: Ordered docusate-senna 50 mg-8.6 mg oral capsule 2 capsule, By Mouth, 2 times a day, # 120 capsule, 1 Refills, Maintenance, 06/09/21 10:36:00 EDT, Capsule, [facility] [id number], Partial fill upon patient request if the prescription is for a schedule II opioid drug., 2 capsu... Start Date: 06/09/21 Status: Ordered gabapentin 600 mg oral tablet 1 tablet = 600 mg, By Mouth, 3 times a day, # 90 tablet, 1 Refills, Maintenance, 06/09/21 10:33:00 EDT, Tablet, [facility] [id number], Partial fill upon patient request if the prescription is for a schedule II opioid drug., 17... Start Date: 06/09/21 Stop Date: 08/08/21 Status: Ordered hydrOXYzine pamoate 50 mg oral capsule = 50 mg, By Mouth, Every 6 hours, PRN Anxiety, # 60 capsule, 1 Refills, Maintenance, 06/09/21 10:36:00 EDT, Capsule, [facility] [id number], Partial fill upon patient request if the prescription is for a schedule II opioid drug... Start Date: 06/09/21 Status: Ordered lamotrigine 25 mg oral tablet 25 mg, 1, tablet, By Mouth, Daily, # 30 tablet, Refills 1, Tot. Refills 1, Maintenance, 06/09/21 10:36:00 EDT, Route to Pharmacy Electronically, [facility] [id number], Partial fill upon patient request if the prescription is f... Start Date: 06/09/21 Status: Ordered loratadine 10 mg oral tablet 10 mg, 1, tablet, By Mouth, Daily, # 30 tablet, Refills 1, Tot. Refills 1, Maintenance, 06/09/21 10:33:00 EDT, Route to Pharmacy Electronically, [facility] [id number], Partial fill upon patient request if the prescription is f... Start Date: 06/09/21 Stop Date: 08/08/21 Status: Ordered losartan 25 mg oral tablet 25 mg, 1, tablet, By Mouth, Daily, Hold if SBP<100mm Hg, # 30 tablet, Refills 1, Tot. Refills 1,Maintenance, 06/09/21 10:33:00 EDT, Route to Pharmacy Electronically, [facility] [id number], Partial fill upon patient request if... Start Date: 06/09/21 Stop Date: 08/08/21 Status: Ordered MetFORMIN (Eqv-Glucophage XR) 500 mg oral tablet, extended release 1 tablet, By Mouth, Daily, for 30 days, # 30 tablet, 1 Refills, Physician Stop 08/08/21 10:34:00 EDT, 06/09/21 10:34:00 EDT, [facility] [id number], 178, cm, 06/09/21 9:53:00 EDT, Height, 140, kg, 05/17/21 19:30:00 EDT, Dry Weight Start Date: 06/09/21 Stop Date: 08/08/21 Status: Ordered Nicotine 2 mg gum = 2 mg, Chew, Every 2 hours, PRN Other, cigarette craving, # 40 each, 0 Refills, Maintenance, 06/09/21 10:36:00 EDT, Gum, [facility] [id number], Partial fill upon patient request if the prescription is for a schedule II opioid... Start Date: 06/09/21 Status: Ordered OXcarbazepine 150 mg oral tablet 150 mg, 1, tablet, By Mouth, 2 times a day, # 60 tablet, Refills 1, Tot. Refills 1, Maintenance, 06/09/21 10:34:00 EDT, Route to Pharmacy Electronically, [facility] [id number], Partial fill upon patient request if the [...] 06/09/21 10:35:00 EDT, Route to Pharmacy Electronically, [facility] [id number], Partial fill upon patient request if the prescri... Start Date: 06/09/21 Stop Date: 08/08/21 Status: Ordered traZODone 50 mg oral tablet 50 mg, 1, tablet, By Mouth, Daily at bedtime, # 30 tablet, Refills 1, Tot. Refills 1, Maintenance, 06/09/21 10:36:00 EDT, Route to Pharmacy Electronically, [facility] [id number], Partial fill upon patient request if the [...] sleep apnea, Com plex sleep apnea(Confirmed) Active BHN/CCA/[employer] Marketing-Remedios Docrytx-[phone]/Health intermediate, active care coordination(Confirmed) Active Severe obesity(Confirmed) Active [...] Most recent to oldest [Reference Range]: 1 Oxygen Saturation [94-100 %] 97 % (06/25/21 8:38 PM) Pulse Rate [55-90 bpm] 97 bpm *H* (06/25/21 8:38 PM) Blood Pressure [90-138/55-84 mm Hg] 142/ 80mm Hg *H* (06/25/21 8:38 PM) Respiratory Rate [16-30 br/min] 18 br/mi n (06/25/21 8:38 PM) Temperature [96.8-100.4 DegF] 98.6 DegF (06/25/21 8:38 PM) Mode of Delivery (Oxygen) Room air (06/25/21 8:38 PM) Blood pressure sites Arm, right (06/25/21 8:38 PM) Temperature Route Oral (06/25/21 8:38 PM) Social History Social History Type Response Smoking Status Never smoker entered on: 10/02/13 Sex
--- OUTSIDE RECORDS SUMMARY | 2022-08-02 17:42 | XMS_ITS | Continuity of Care Document ---
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 Start Date: 08/18/21 Status: Ordered buPROPion 150 mg/24 hours (XL) oral tablet, extended release 1 tablet, By Mouth, Daily, # 30 tablet, 0 Refills, [facility], 30, TAKE 1 TABLET BY MOUTH ONCEDAILY, 177.8, cm, 10/05/21 8:09:00 EDT, Height, 136.078, kg, 09/02/21 19:37:00 EDT, Dry Weight Start Date: 10/13/21 Status: Ordered chlorthalidone 25 mg oral tablet 12.5 mg, 0.5, tablet, By Mouth, Daily, # 15 tablet, Refills 1, Tot. Refills 1, Maintenance, 08/18/21 10:14:00 EDT, Route to Pharmacy Electronically, [facility] [place], [place] - [id number], Partial fill upon patient request if the prescription... Start Date: 08/18/21 Status: Ordered Freestyle Lite Lancets See Instructions, # 50 each, Refills 11, Tot. Refills 11, Maintenance, check daily fasting sugar for type 2 DM. E11., 10/20/21 9:50:00 EDT, Supply, 177.8, cm, 10/20/21 [...] 1 Refills, Maintenance, 08/18/21 10:14:00 EDT, Tablet, [facility], [facility] [id number], Partial fill upon patient request if the prescription is for a schedule II opioid drug., 17... Start Date: 08/18/21 Stop Date: 10/17/21 Status: Ordered hydrOXYzine pamoate 50 mg oral capsule = 50 mg, By Mouth, Every 6 hours, PRN Anxiety, # 60 capsule, 1 Refills, Maintenance, 08/18/21 10:15:00 EDT, Capsule, [facility] [id number], Partial fill upon patient request if the prescription is for a schedule II opioid drug... Start Date: 08/18/21 Status: Ordered loratadine 10 mg oral tablet 10 mg, 1, tablet, By Mouth, Daily, # 30 tablet, Refills 1, Tot. Refills 1, Maintenance, 08/18/21 10:15:00 EDT, Route to Pharmacy Electronically, [facility] [id number], Partial fill upon patient request if the prescription is f... Start Date: 08/18/21 Stop Date: 10/17/21 Status: Ordered metFORMIN 500 mg oral tablet, extended release 1 tablet = 500 mg, By Mouth, Daily, with food Martiniquais label please., # 30 tablet, 5 Refills, Maintenance, 10/20/21 9:49:00 EDT, ER Tablet, [facility] [id number], Partial fillupon patient request if the prescription is for a... Start Date: 10/20/21 Status: Ordered mupirocin 2% topical cream See Instructions, apply thin layer to face twice a day., # 30 Gm, 0 Refills, Maintenance, 10/05/21 8:55:00 EDT, [facility] [id number], Partial fill upon patient request if the prescription is for a schedule II opioid drug., ap... Start Date: 10/05/21 Status: Ordered mupirocin 2% topical ointment See Instructions, Topically 2 times a day, # 22 Gm, 0 Refills, Maintenance, 10/05/21 17:24:00 EDT, [facility] [id number], Partial fill upon patient request if the prescription is for a schedule II opioid drug., Topically 2 kiya... Start Date: 10/05/21 Status: Ordered paliperidone 234 mg/1.5 mL intramuscular suspension, extended release = 234 mg, Intramuscular, Every 28 days, Due on 09/13/2021, # 1 each, 1 Refills, Maintenance, 08/18/21 10:16:00 EDT, [facility] [id number], Partial fill upon patient request ifthe prescription [...] Maintenance,08/18/21 10:19:00 EDT, Route to Pharmacy Electronically, [facility] [id number], Partial fill upon patient request if the [...] sleep apnea, Com plex sleep apnea(Confirmed) Active BHN/CCA/Director Industrial Relations-Remedios MárquezGrnwxlw-[phone]/Health fpc, active care coordination(Confirmed) Active Treatment-emergent central s [...] Team Personnel Name: Lamine Lin MD Address: [address] [place] [address]
--- OUTSIDE RECORDS SUMMARY | 2022-08-02 17:42 | XMS_ITS | Continuity of Care Document ---
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 Start Date: 12/06/21 Status: Ordered buPROPion 150 mg/24 hours (XL) oral tablet, extended release 1 tablet, By Mouth, Daily, # 30 tablet, 0 Refills, Maintenance, 01/08/22 8:10:00 EST, [facility], 30, TAKE 1 TABLET BY MOUTH ONCE DAILY, 177.8, cm, 12/06/21 13:10:00 EDT, Height, 136.078, kg, 09/02/21 19:37:00 EDT, Dry Weight Start Date: 01/08/22 Status: Ordered docusate sodium 100 mg oral capsule 1 capsule, By Mouth, Daily, # 30 each, 1 Refills, Maintenance, 12/06/21 10:45:00 EDT, [place], [place] - [phone], 177.8, cm, 12/06/21 10:26:00 EDT, Height, 136.078, kg, 09/02/21 19:37:00 EDT, Dry Weight Start Date: 12/06/21 Status: Ordered folic acid 1 mg oral tablet 1, tablet, By Mouth, Daily, # 30 tablet, Refills 5, Maintenance, 01/18/22 8:09:00 EST, Route to Pharmacy Electronically, [facility], 178, cm, 01/17/22 23:35:00 EST, Height, 101.4, kg, 01/12/22 14:14:00 EST, Dry Weight Start Date: 01/18/22 Status: Ordered gabapentin 600 mg oral tablet 1 tablet = 600 mg, By Mouth, 3 times a day, # 90 tablet, 5 Refills, Maintenance, 12/06/21 10:44:00 EDT, Tablet, [facility] [id number], Partial fill upon patient request if the prescription is for a schedule II opioid drug., 17... Start Date: 12/06/21 Stop Date: 06/04/22 Status: Ordered hydrOXYzine pamoate 50 mg oral capsule = 50 mg, By Mouth, Every 6 hours, PRN Anxiety, # 60 capsule, 0 Refills, Maintenance, 12/06/21 10:45:00 EDT, Capsule, [facility] [id number], Partial fill upon patient request if the prescription is for a schedule II opioid drug... Start Date: 12/06/21 Status: Ordered loratadine 10 mg oral tablet 10 mg, 1, tablet, By Mouth, Daily, # 30 tablet, Refills 3, Tot. Refills 3, Maintenance, 12/06/21 10:45:00 EDT, Route to Pharmacy Electronically, [facility] [id number], Partial fill upon patient request if the prescription is f... Start Date: 12/06/21 Stop Date: 04/05/22 Status: Ordered pantoprazole 40 mg oral delayed [...] Maintenance,12/06/21 10:45:00 EDT, Route to Pharmacy Electronically, [facility] [phone], Partial fill upon patient request if the [...] sleep apnea, Complex sleep apnea Confirmed Active [facility]N/[facility]/Internal Medicine Hospitalist-Tia Jarrett [phone]/Health halfway, active care coordination Confirmed Active Treatment-emergent central [...] Exam Date Time Procedure Performing Provider Status 01/18/22 8:[address] Abd/Pelvis W/ IV + Oral Contrast Puja Hairston; Darrel (Verified) Notes: (CT Abd/Pelvis W/ IV + Oral Contrast) Reason For Exam: Pain RESULT: CT Abd/Pelvis W/ IV + Oral Contrast CT Abd/Pelvis W/ IV + Oral Contrast Reason: Pain; Clinical Question(s): Other:; source of epigastric pain; Order Comment: TECHNIQUE: Spiral CT through the abdomen and pelvis with IV contrast formatted in 3 planes. 100 cc of Omnipaque 300 was administered intravenously. This study was performed without oral contrast. Weight-based protocol using automatic tube modulation was used to optimize exposure parameters. CTDIvol Body: 19.97 mGy, DLP Body: 1161 mGy*cm. COMPARISON: 05/07/2021 FINDINGS: Lime Boiler View Findings, Lines and Tubes: None. Visualized Chest: Lung bases are clear. No pleural effusion. The heart is normal in size. No pericardial effusion. Diaphragm: Normal. Liver: Normal. Gallbladder: No CT evidence of gallbladder pathology. Bile ducts: No biliary ductal dilation. Spleen: Normal. Pancreas: Normal. Adrenal glands: Normal. Kidneys and ureters: No hydronephrosis, stones, or suspicious masses. Bladder: Normal. Reproductive organs: Unremarkable. Stomach, small bowel, and large bowel: Large amount of stool seen within the colon. No evidence of obstruction. No wall thickening identified. No periintestinal inflammatory change. Appendix: Normal. Peritoneum and retroperitoneum: No ascites or pneumoperitoneum. No omental or mesenteric lesions. Lymph nodes: No enlarged lymph nodes. Blood vessels: Normal. No aneurysm. No evidence of venous thrombosis. Abdominal and pelvic wall: Unremarkable. Bones: No acute abnormality. IMPRESSION: Large amount of stool seen within the colon. Otherwise unremarkable CT scan of the abdomen and pelvis. WSN: [id number] Ordering Physician: Chela Mittal Dictated By: Eduardo Sam MD Dictated Date/Time: 01/18/22 9:02 pm Reviewed By: Eduardo Sam MD Signed By: Eduardo Sam MD Signed Date/Time: 01/18/22 9:02 pm Transcribed By: TIP Transcribed Date/Time: 01/18/22 8:57 pm * Exam Date Time Procedure Performing Provider Status 01/14/22 11:14 AM US Abdominal Doppler Comp Yokasta Pereyra; Auth (Verified) Notes: (US Abdominal Doppler Comp) Reason For Exam: Doppler ultrasound of the liver to assess vascular lesions;Other: RESULT: US Abdominal Doppler Comp US Abdominal Doppler Comp REASON: Doppler ultrasound of the liver to assess vascular lesions; Clinical Questions: assess portal vein and hepatic vein for thrombus lesions and the hepatic artery TECHNIQUE: Color flow and duplex Doppler analysis of abdominal vasculature. COMPARISON: Right upper quadrant ultrasound 01/11/[address] abdomen/pelvis 05/07/2021 FINDINGS: Vascular Findings: Arteries: Hepatic arteries: Arterial waveforms in the visualized hepatic arteries are normal. Hepatic artery angle-corrected velocity: 76.8 cm/sec. Hepatic artery resistive index: 0.7 (Normal range: 0.55-0.7). Veins: Portal veins: The main, right and left portal veins are patent with appropriate hepatopetal direction of flow. Portal vein angle-corrected velocity: 20.4 cm/sec (Normal range: 16-40 cm/sec). Hepatic veins: The right, middle and left hepatic veins are patent with appropriate hepatofugal flow and phasic form. Inferior vena cava: IVC is patent with appropriate direction of flow. Splenic vein: Not visualized at the pancreas. Splenic vein is visualized at the hilum is patent with appropriate hepatopetal direction of flow. Spleen length: 10.0 cm. IMPRESSION: 1. No evidence of portal venous thrombosis. I have personally reviewed the images and I agree with this report. WSN: [id number] Ordering Physician: Patrick Medina Dictated By: Eva Waldron DO Dictated Date/Time: 01/14/22 1:38 pm Reviewed By: Michael Stevenson MD Signed By: Michael Stevenson MD Signed Date/Time: 01/14/22 1:43 pm Transcribed By: TIP Transcribed Date/Time: 01/14/22 11:53 am * Exam Date Time Procedure Performing Provider Status 01/11/22 1:57 PM US RUQ Yokasta Pereyra; Auth (Verified) Notes: (US RUQ) Reason For Exam: Abdominal Pain;Other: RESULT: US RUQ US RUQ Hx of Present Illness: chest pain; Reason: Other:; Abdominal Pain; Clinical Question(s): Cholecystitis COMPARISON: CT abdomen and pelvis 04/29/2021, right upper quadrant ultrasound 02/25/2019 FINDINGS: Liver: Normal in size and echotexture. No focal lesion. Main portal vein patent with normal hepatopetal direction of flow. Gallbladder: Numerous scattered areas of comet tail reverberation artifact throughout the gallbladder wall consistent with diffuse adenomyomatosis. Few underlying small echogenic gallstones not excluded. Normal wall thickness. No pericholecystic fluid. Negative Frost sign. Biliary Tree: No intrahepatic or extrahepatic bile duct dilation is identified. Common duct measures: 0.2 cm. Pancreas: Partially obscured by overlying bowel gas. No abnormality in the visualized portions of the pancreas. Right kidney: Normal parenchymal echotexture and thickness. No hydronephrosis, stone or mass. IMPRESSION: No sonographic evidence of acute cholecystitis or biliary ductal dilatation. Diffuse adenomyomatosis involving gallbladder wall with few underlying small gallstones not excluded. WSN: [id number] Ordering Physician: Shmuel Klein MD Dictated By: Michael Dee MD Dictated Date/Time: 01/11/22 2:12 pm Reviewed By: Michael Dee MD Signed By: Michael Dee MD Signed Date/Time: 01/11/22 2:12 pm Transcribed By: TIP Transcribed Date/Time: 01/11/22 2:08 pm * Exam Date Time Procedure Performing Provider Status 01/11/22 3:51 AM US Doppler Ext Lower Venous Right Dee Dee Jasmine; Auth (Verified) Notes: (US Doppler Ext Lower Venous Right) Reason For Exam: Pain in limb;Other: RESULT: US Doppler Ext Lower Venous Right US Doppler Ext Lower Venous Right Hx of Present Illness: Right lower extremity pain. Reason: Pain in limb; Clinical Question(s): Thrombus COMPARISON: Right lower extremity venous Doppler ultrasound 12/13/2021 IMAGING TECHNIQUE: Ultrasound of the veins from the groin through the calf was performed using grayscale, color, and spectral Doppler ultrasound assessing for complete compressibility and normal flowcharacteristics. FINDINGS: Common femoral vein: Patent. No thrombosis. Femoral vein: Patent. No thrombosis. Popliteal vein: Patent. No thrombosis. Gastrocnemius veins: The visualized portions are patent without evidence of thrombosis. Peroneal veins: The visualized portions are patent without evidence of thrombosis. Posterior tibial veins: The visualized portions are patent without evidence of thrombosis. Contralateral common femoral vein: Patent. No thrombosis. IMPRESSION: No evidence of deep venous thrombosis. I have personally reviewed the images and I agree with this report. WSN: [id number] Ordering Physician: Cricket Bay Dictated By: Nikole Berg DO Dictated Date/Time: 01/11/22 7:10 am Reviewed By: Linsey Desai MD Signed By: Linsey Desai MD Signed Date/Time: 01/11/22 7:15 am Transcribed By: TIP Transcribed Date/Time: 01/11/22 4:06 am * Exam Date Time Procedure Performing Provider Status 01/11/22 3:[address] Angio Chest Stupak , Otilio; Auth (V erified) Notes: (CT Angio Chest) Reason For Exam: PE suspected, Intermediate prob, positive D-dimer,;Other: RESULT: CT Angio Chest EXAMINATION: CT Angio Chest INDICATION: Hx of Present Illness: Chest pain. Reason: PE suspected, Intermediate prob, positive D-dimer. Clinical Question(s): Pulmonary Embolism; TECHNIQUE: Spiral CTA of the chest was performed after rapid IV contrast administration without cardiac gating, triggered by an LIZZY on the main pulmonary artery. Images are formatted in multiple planes using 2-D multiplanar and 3-D maximum intensity projection. 100 cc of Omnipaque 300 was administered intravenously. Weight-based protocol using automatic tube modulation was used to optimize exposure parameters. CTDIvol Body: 11.77 mGy, DLP Body: 640 mGy*cm. COMPARISONS: Chest radiograph 01/10/2022 ANGIOGRAPHIC FINDINGS: No pulmonary embolism to the distal lobe to the proximal most segment level. Normal caliber pulmonary arteries. No acute aortic abnormality seen on this study performed without cardiac gating. NON-ANGIOGRAPHIC FINDINGS: Lime Boiler View Findings, Lines and Tubes: None. Trachea and Airways: Patent without evidence of tracheal or endobronchial lesion. Lungs and Pleura: Decreased inspiratory effort/low lung volumes. Clear lungs. No effusion or pneumothorax. Mediastinum and sugey: No mass or hematoma. No mediastinal or hilar lymphadenopathy. No esophageal abnormality. Heart: Heart is normal in size. No pericardial effusion. Chest Wall Soft Tissues: Moderate to marked bilateral gynecomastia. Diaphragm and upper abdomen: Hepatic steatosis. Bones: No acute abnormality. IMPRESSION: No evidence of pulmonary embolism. No acute cardiopulmonary abnormality. I have personally reviewed the images and I agree with this report. WSN: [id number] Ordering Physician: Cricket Bay Dictated By: Nikole Berg DO Dictated Date/Time: 01/11/22 7:17 am Reviewed By: Linsey Desai MD Signed By: Linsey Desai MD Signed Date/Time: 01/11/22 7:22 am Transcribed By: TIP Transcribed Date/Time: 01/11/22 3:49 am * Exam Date Time Procedure Performing Provider Status 01/10/22 8:46 PM Chest 2 Views Frontal and Lat Trevon Rios; Auth (Verified) Notes: (Chest 2 Views Frontal and Lat) Reason For Exam: Chest Pain;Other: RESULT: Chest 2 Views Frontal and Lat Chest 2 Views Frontal and Lat Hx of Present Illness: chest pain; Reason: Other:; Chest Pain; Clinical Question(s): Other: COMPARISON: None. FINDINGS: LINES AND TUBES: None. LUNGS AND PLEURA: Clear lungs. Normal pulmonary vascularity. No pleural effusion. No pneumothorax. HEART, MEDIASTINUM AND SUGEY: Heart is normal in size. Normal mediastinal and hilar contour. BONES AND SOFT TISSUES: No acute abnormality. IMPRESSION: No acute abnormality. WSN: [id number] Ordering Physician: Michael Staley Dictated By: Leonardo Galeana MD Dictated Date/Time: 01/10/22 8:50 pm Reviewed By: Leonardo Galeana MD Signed By: Leonardo Galeana MD Signed Date/Time: 01/10/22 8:50 pm Transcribed By: TIP Transcribed Date/Time: 01/10/22 8:49 pm Vital Signs Most recent to oldest [Reference Range]: 1 2 3 Height 178 cm (01/18/22 11:51 PM) 178 cm (01/18/22 7:34 PM) 178 cm (01/17/22 11:35 PM) Weight 101.4 kg (01/12/22 2:14 PM) Oxygen Saturation [94-100 %] 100 % (01/19/22 7:00 AM) 100 % (01/18/22 11:51 PM) 99 % (01/18/22:34 PM) Pulse Rate [55-90 bpm] 78 bpm (01/19/22 7:00 AM) 60 bpm (01/18/22 11:51 PM) 81 bpm (01/18/22 7:34 PM) Body Mass Index [18.5-24.99 kg/m2] 32 kg/m2 *>HHI* (01/12/22 2:14 PM) Blood Pressure [90-138/55-84 mm Hg] 108/71mm Hg (01/19/22 7:00 AM) 111/73mm Hg (01/18/22 11:51 PM) 114/68mm Hg (01/18/22 7:34 PM) Respiratory Rate [16-30 br/min] 19 br/min (01/19/22 7:00 AM) 19 br/min (01/18/22 11:51 PM) 19 br/min (01/18/22 7:34 PM) Temperature [96.8-100.4 DegF] 97.9 DegF (01/19/22 7:00 AM) 97.2 DegF (01/18/22 11:51 PM) 98.1 DegF (01/18/22 7:34 PM) Mode of Delivery (Oxygen) Room air (01/19/22 7:00 AM) Room air (01/18/22 11:51 PM) Room air (01/18/22 7:34 PM) Blood pressure sites Arm, right (01/19/22 7:00 AM) Arm, right (01/18/22 11:51 PM) Arm, left (01/18/22 7:34 PM) Temperature Route Oral (01/19/22 7:00 AM) Oral (01/18/22 11:51 PM) Oral (01/18/22 7:34 PM) Dry Weight 101.4 kg (01/12/22 2:14 PM) Weight Obtained Via Bed scale (01/12/22 2:14 PM) Social History Social History Type Response Smoking Status Never smoker entered on: 10/02/13 Sex History and physical note * Shila ACOSTA, Celestina: PERFORM Event Display: History and Physical Hospital Authored Date: [id number] Patient: ??HELLEN ORTIZ ? Age:??31 Years?Sex:??Male?:??1990?? Chief Complaint/Reason for Consultation Oax3 coming frrom home sudden onset cp/sob 08/29 sternal non reproducible. denies cardiac hx. History of Present Illness Date of exam: 01/11/2022 ?? 31-year-old woman with past medical history significant for hypertension, hyperlipidemia, GERD, hepatic steatosis, obstructive sleep apnea, schizoaffective disorder, history of medication noncompliance, multiple psychiatric hospitalizations, presented to ED with 1 day history of intermittent substernal chest pain, right upper quadrant pain, auditory hallucinations.?? No fevers or chills.?? Describes chest pain as substernal, lasting a few minutes, aching, nonradiating, not associated with shortness of breath, diaphoresis.?? Had nausea and 1 episode of vomiting.?? No dizziness, lightheadedness.?? No change in bowel habits ?? Upon arrival to ED, afebrile, slightly tachycardic with heart rate in the low 100s, blood pressure stable.?? Labs with no leukocytosis, electrolytes showing critical hypokalemia with potassium 2.9, BUN and creatinine normal.?? LFTs significantly elevated, AST and ALT 2376/3189, total bilirubin 1.5.?? Troponin negative.?? TSH normal.?? COVID-19 negative.?? Chest x-ray with no acute disease.?? CT angiogram of the chest with no evidence of PE.?? Doppler ultrasound of right leg with no evidence of DVT.?? Right upper quadrant ultrasound done and did not show any evidence of acute cholecystitis or biliary ductal dilation.?? EKG shows sinus tachycardia, inversions in anterolateral leads.?? Psychiatric consulted, recommended to stop Invega, and to resume benztropine, bupropion, hydroxyzine and trazodone.?? Admitted for further evaluation. ?? During my exam, feels dizzy.?? Chest pain-free.?? Rest of ROS negative. Review of Systems Constitutional: No fevers, chills HEENT: No headache, rhinorrhea, difficulty swallowing, blurry vision Cardiovascular: Chest pain Respiratory: No shortness of breath, no cough, no wheezing GI: Nausea, vomiting Neuro: No weakness, numbness, tingling in extremities Psych: Auditory hallucinations Muscular skeletal: No joint or muscle pain Endocrine: No recent weight loss or gain, no change in appetite : No dysuria or hematuria Objective Vital Signs?? Temperature: 98.4 DegF (01/11/22 23:10:00) Temperature Route: Oral (01/11/22:10:00) Pulse Rate:??94 bpm??High (01/11/22:10:) Respiratory Rate: 16 br/min (01/11/22 23:10:00) Vented: No (01/11/22 20:09:00) Systolic Blood Pressure: 114 mm Hg (01/11/22:10:00) Diastolic Blood Pressure: 74 mm Hg (01/11/22:10:00) Blood pressure sites: Arm, left (01/11/22 23:10:00) Mean Arterial Pressure: 87 mm Hg (01/11/22:10:00) Pulse Pressure: 40 mm Hg (01/11/22:10:00) Oxygen Saturation: 96 % (01/11/22:10:00) Mode of Delivery (Oxygen): Room air (01/11/22 23:10:00) Early Warning Score: 0 (01/11/22:11:) ? Physical Exam General: NAD HEENT: Atraumatic, normocephalic, EOMI, PERRLA, moist mucous membranes Neck: Supple Cardiac: S1, S2 heard, no murmurs Pulmonary: Clear to auscultation bilaterally, good bilateral air entry Abdomen: Soft, nontender, nondistended, bowel sounds heard Extremities: No cyanosis, clubbing or edema Skin: No rash Neuro: No focal deficits, awake and alert Psych: Mood and affect appropriate for encounter Assessment/Plan Assessment:??31-year-old woman with past medical history significant for hypertension, hyperlipidemia, GERD, hepatic steatosis, obstructive sleep apnea, schizoaffective disorder, history of medication noncompliance, multiple psychiatric hospitalizations, admitted for further evaluation and management of transaminitis??and??auditory hallucinations ?? Transaminitis (R74.01):??AST and ALT significantly elevated, above 2000.??Last levels from??a monthago normal. Has history of nonalcoholic??hepatic steatosis No history of recent alcohol use.??Ultrasound of the right upper quadrant does not show any??biliary dilatation??or cholecystitis. No h/o Tylenol use, no recent med changes Invega Sustenna 234 mg IM last received 12/14/21, has been tapering the dose. It is not known to cause tansaminitis Check Tylenol levels, check hepatitis panel GI consult placed, follow-up with medications Trend LFTs As needed Zofran for nausea vomiting ?? Hypokalemia (E87.6):??Potassium critically low at 2.9.??EKG with no??acute changes Received total of 70 mEq of potassium, subsequent levels still low at 3.1. I have ordered 40 mEq ofIV potassium as well as 40 mEq of p.o. potassium supplementation. Recheck levels in a.m. ?? Chest pain:??Atypical presentation.?? Troponins negative.?? EKG with no acute ischemic changes. ??Ruled out for ACS ?? Diabetes mellitus (E11.9):??SSI with POC glucose checks ?? Auditory hallucinations (R44.0):?? Schizoaffective Disorder, Unspecified (F25.9):??Seen by psychiatry??upon arrival.??Recommended to continue benztropine,??hydroxyzine, trazodone??and bupropion. ?? VTE Prophylaxis:??Lovenox ?VTE Prophylaxis Assessment:??VTE Prophylaxis Ordered ?? Code Status:??Full code ?? Histories Allergies Allergies ?(Active and Proposed Allergies Only) Dust? (Severity: Mild, Onset: Unknown) Milk Products? (Severity: Persistent Moderate, Onset: 10/01/2020) ?Reactions: Nausea and vomiting cloNIDine? (Severity: Unknown severity, Onset: Unknown) ?Reactions: confusion lisinopril? (Severity: Unknown severity, Onset: Unknown) ?Reactions: dry cough ? Past Medical History/Problem List Active Problems??(15) BHN/CCA/Internal Medicine Hospitalist-Tia Jarrett [phone]/Health halfway, active care coordination Diabetes mellitus Esophageal reflux (GERD) Gastric polyp Gynecomastia Hypercholesterolemia Hypertension Morbid obesity with BMI of 45.0-49.9, adult NAFLD (nonalcoholic fatty liver disease) Obese class I Obstructive sleep apnea, Complex sleep apnea Schizoaffective Disorder, Unspecified Sleep related hypoxia Treatment-emergent central sleep apnea Wenckebach ? Past Surgical History Esophagogastroduodenoscopy and polypectomy of stomach: 04/16/20 Extraction of wisdom tooth: 2013 ? Social History Alcohol Details:??Use: Never. Employment/School Details:??Status: Disabled. ??Other: mental health. ??Highest education level: High school or GED. Exercise Details:??Self assessment: Poor condition. ??Regular exercise: No. Home/Environment Details:??Living situation: Home/Independent. ??Lives with: Alone, Friend. ??Other: [facility] assists with transportation. He buys his own food and cooks it.. ??Feels unsafe at home: Yes. ??Safe place to go: Yes. ??Injuries/Abuse/Neglect in household: No. ??Alcohol in household: No. ??Firearms in household: No. ??Substance abuse in household: No. ??Smoker in household: No. ??Major illness in household:No. ??Financial concerns: No. Nutrition/Health Details:??Diet: Regular. Sexual Details:??Sexually involved in last 6 months: No. Substance Abuse Details:??Use: Never. Tobacco Details:??Use: Never smoker. Details:??Use: Never smoker. ? Family History Mother: CAD - Coronary artery disease; Hypertension; Myocardial infarction Father: Drug abuse Sister: Bipolar Sister: Obesity Sister: Arthritis; DVT; Hypercholesterolemia; Hypertension; Stroke ? Medications Home Medications Benztropine (benztropine 1 mg oral tablet)?1?Milligram?1?tablet?By Mouth?2 times a day BuPROpion (buPROPion 150 mg/24 hours (XL) oral tablet, extended release)?1?tab(s)?By Mouth?Daily Docusate (docusate sodium 100 mg oral capsule)?1?capsule?By Mouth?Daily Gabapentin (gabapentin 600 mg oral tablet)?1?tab(s)?600?Milligram?By Mouth?3 times a day?for 30?Days HydrOXYzine (hydrOXYzine pamoate 50 mg oral capsule)?50?Milligram?By Mouth?Every 6 hours?as needed?Anxiety Loratadine (loratadine 10 mg oral tablet)?10?Milligram?1?tablet?By Mouth?Daily?for 30?Days paliperidone (paliperidone 234 mg/1.5 mL intramuscular suspension, extended release)?234?Milligram?Intramuscular?Every 28 days?Due ??on 09/13/2021 Pantoprazole (pantoprazole 40 mg oral delayed release tablet)?40?Milligram?By Mouth?Daily Trazodone (traZODone 100 mg oral tablet)?100?Milligram?1?tablet?By Mouth?Daily atbedtime ? Results Recent Labs BLOOD COUNT & DIFF WBC 8.9 k/mm3 ()?? 01/10/2022 20:06 RBC 5.53 m/mm3 ()?? 01/10/2022 20:06 Hgb 14.0 Gm/dL ()?? 01/10/2022 20:06 Hct 44.8 % ()?? 01/10/2022 20:06 MCV 81.0 femtoliters ()?? 01/10/2022 20:06 MCH 25.3 pg (Low)?? 01/10/2022 20:06 MCHC 31.3 g/dL (Low)?? 01/10/2022 20:06 Platelet Count 282 k/mm3 ()?? 01/10/2022 20:06 RDW-SD 40.9 femtoliters ()?? 01/10/2022 20:06 MPV 10.6 femtoliters ()?? 01/10/2022 20:06 Nucleated RBC (Automated) 0.0 #/100 WBC'S ()?? 01/10/2022 20:06 Abs. NRBC 0.0 k/mm3 ()?? 01/10/2022 20:06 Abs. Neut 7.4 k/mm3 (High)?? 01/10/2022 20:06 Abs. Lymph 1.1 k/mm3 ()?? 01/10/2022 20:06 Abs. Norman 0.3 k/mm3 (Low)?? 01/10/2022 20:06 Abs. Eo 0.1 k/mm3 ()?? 01/10/2022 20:06 Abs. Baso 0.1 k/mm3 ()?? 01/10/2022 20:06 Neut % 82.7 % (High)?? 01/10/2022 20:06 Lymph % 11.9 % (Low)?? 01/10/2022 20:06 Norman % 3.1 % (Low)?? 01/10/2022 20:06 Eos % 1.0 % ()?? 01/10/2022 20:06 Baso % 0.6 % ()?? 01/10/2022 20:06 Imm Gran 0.7 % ()?? 01/10/2022 20:06 Abs. Imm Gran 0.1 k/mm3 ()?? 01/10/2022 20:06 ?? CARDIAC Nt-Probnp 48 pg/mL ()?? 01/10/2022 20:06 High Sensitivity Troponin (HSTnT) 13 ng/L ()?? 01/11/2022 16:13 ?? CHEM GENERAL Sodium 136 mmol/L ()?? 01/11/2022 11:37 Potassium 3.1 mmol/L (Low)?? 01/11/2022 11:37 Chloride 94 mmol/L (Low)?? 01/11/2022 11:37 Bicarbonate Level 32 mmol/L (High)?? 01/11/2022 11:37 Anion Gap 10 ()?? 01/11/2022 11:37 Glucose Level 87 mg/dL ()?? 01/11/2022 11:37 Glucose, POC 98 mg/dL ()?? 01/11/2022 21:13 BUN 9 mg/dL ()?? 01/11/2022 11:37 Creatinine-Blood 0.7 mg/dL ()?? 01/11/2022 11:37 Estimated GFR Creatinine 125 ML/MIN/1.73 M2 ()?? 01/11/2022 11:37 Calcium 9.3 mg/dL ()?? 01/11/2022 11:37 Magnesium 1.7 mg/dL ()?? 01/10/2022 20:06 Protein, Total 6.4 Gm/dL ()?? 01/11/2022 11:37 Albumin 4.2 Gm/dL ()?? 01/11/2022 11:37 Alkaline Phosphatase 67 units/L ()?? 01/11/2022 11:37 Lipase 38 units/L ()?? 01/11/2022 11:37 AST (SGOT) 2124 units/L (High)?? 01/11/2022 11:37 ALT (SGPT) 3128 units/L (High)?? 01/11/2022 11:37 Bilirubin, Total 1.5 mg/dL (High)?? 01/11/2022 11:37 Bilirubin, Direct 0.7 mg/dL (High)?? 01/11/2022 11:37 Bilirubin, Indirect 0.8 mg/dL (High)?? 01/11/2022 11:37 ?? COAG D-Dimer 1.01 mg/L FEU (High)?? 01/10/2022 20:06 ?? ENDOCRINE/TUMOR MARKER TSH 0.40 uIU/mL ()?? 01/11/2022 09:35 ?? HEME OTHER Hold Blue Top SPECIMEN DISCARDED AFTER 4 HOURS. ()?? 01/10/2022 20:06 ?? VIROLOGY COVID-19 POC Result NEGATIVE ()?? 01/10/2022 19:31 ? EKG study * Event Display: ECG 12-Lead Authored Date: Please click on pdf link to open report * Event Display: ECG 12-Lead Authored Date: Ventricular Rate: 101 BPM Atrial Rate: 101 BPM P-R Interval: 162 ms QRS Duration: 90 ms Q-T Interval: 366 ms QTC Calculation(Bazett): 474 ms P [place]: 59 degrees R [place]: 13 degrees T [place]: 225 degrees Sinus tachycardia Possible Inferior infarct , age undetermined T wave abnormality, consider anterolateral ischemia Abnormal ECG Confirmed by BAL ULRICH ([id number]) on 01/11/2022 11:59:09 AM [place]: BAL ULRICH Note * Event Display: Cardiac Rhythm Strips Authored Date: * Meghan Mora RN: PERFORM Event Display: Discharge/Transfer Note Hospital Authored Date: Nursing Discharge Note Entered On: 01/19/2022 15:30 EST Performed On: 01/19/2022 15:24 EST by Meghan Mora RN Nursing Discharge Note 2 Discharge Time : 01/19/2022 15:20 EST Discharge Level of Care at Discharge : Home/[facility] Patient Left Unit Via : Wheelchair Patient Accompanied Off Unit with : Responsible adult DC Instructions Provided & Signed by Pt : Yes Patient Understands D/C Instructions : Yes Patient Instructions Discharge Signed : Yes Did Pt have Specialty Bed or Wound Vac : No Meghan Mora RN - 01/19/2022 15:24 EST * Gaurav ACOSTA, Rox Gilbert: PERFORM, MODIFY Event Display: Discharge/Transfer Note Hospital Authored Date: Patient: ??HELLEN ORTIZ ? Age:??31 Years?Sex:??Male?:??1990?? Patient Information Discharge Location: W4 Primary Care Physician: Lamine Lin MD Admit Date/Time: 01/11/22 15:29 Discharge Disposition Discharge Disposition: ?? Discharge Diagnosis Diabetes mellitus (E11.9) Hypercholesterolemia (E78.00) Hypertension (I10) Schizoaffective Disorder, Unspecified (F25.9) Auditory hallucinations (R44.0) Hypokalemia (E87.6) Transaminitis (R74.01) ?? _ Discharge Medications Benztropine (benztropine 1 mg oral tablet)?1?Milligram?1?tablet?By Mouth?2 times a day BuPROpion (buPROPion 150 mg/24 hours (XL) oral tablet, extended release)?1?tab(s)?By Mouth?Daily Docusate (docusate sodium 100 mg oral capsule)?1?capsule?By Mouth?Daily Folic Acid (folic acid 1 mg oral tablet)?1?tablet?By Mouth?Daily Gabapentin (gabapentin 600 mg oral tablet)?1?tab(s)?600?Milligram?By Mouth?3 times a day?for 30?Days HydrOXYzine (hydrOXYzine pamoate 50 mg oral capsule)?50?Milligram?By Mouth?Every 6 hours?as needed?Anxiety Loratadine (loratadine 10 mg oral tablet)?10?Milligram?1?tablet?By Mouth?Daily?for 30?Days Pantoprazole (pantoprazole 40 mg oral delayed release tablet)?40?Milligram?By Mouth?Daily Trazodone (traZODone 100 mg oral tablet)?100?Milligram?1?tablet?By Mouth?Daily atbedtime ? Allergies Allergies ?(Active and Proposed Allergies Only) Dust? (Severity: Mild, Onset: Unknown) Milk Products? (Severity: Persistent Moderate, Onset: 10/01/2020) ?Reactions: Nausea and vomiting cloNIDine? (Severity: Unknown severity, Onset: Unknown) ?Reactions: confusion lisinopril? (Severity: Unknown severity, Onset: Unknown) ?Reactions: dry cough ? Future Appointments Monday 10:00 AM EST ?? With: Delia ACOSTA, Lamine Covington Where: [facility] [address] [place] [address]- Hospital Course ??31-year-old??male ??with??hypertension, hyperlipidemia, GERD, hepatic steatosis, obstructive sleep apnea, schizoaffective disorder, history of medication noncompliance, multiple psychiatric hospitalizations, admitted for further evaluation and management of transaminitis??and??auditory hallucinati ons. was admitted??to the medical floor for further management.??liver enzymes were trended down nicely??to about 200 range.?? Ultrasound of the right upper quadrant did not show evidence of??hepaticsteatosis??or biliary dilatation or cholecystitis.?? Hepatitis AB and C antibody were negative.?? Liver Doppler??was also obtained without evidence of portal vein thrombosis??that was discussed with??GI??without??any further??recommendations.?? Tylenol level and salicylic acid less than??were obtained and??were within normal limit.?? It was noted that last??Invega Sustenna??IM shot??was??on 12/14/2021??and this is??the assumed??trigger??for transaminitis??therefore,??this medication needs to be? ?stopped on outpatient basis??with his psychiatry??and will need an alternative treatment.?? His electrolytes were monitored??during the hospital stay and repleted as needed.?He was also seen??by psych crisis with??recommendation for respite housing placement. ??He remained hemodynamically stable throughout hospital stay. ??Therefore, the patient will be discharged??to ??[facility]. ??He was instructed to follow-up with his primary care physician??and psychiatrist for??alternative??maintenance??treatment for??schizophrenia??as Invega sustain a caused significant transaminitis. ?? Transaminitis (R74.01): likely??due to drug induced liver injury??- continues to improve anemia AST and ALT significantly elevated, above 2000.??Last levels from??a month ago normal. Has history of nonalcoholic??hepatic steatosis No history of recent alcohol use. Ultrasound of the right upper quadrant does not show any??biliary dilatation??or cholecystitis. admitted to Recent Tylenol use(he mentioned??he was using 2 tablets a day for last 7 days) Invega Sustenna 234 mg IM last received 12/14/21, has been tapering the dose, known to cause transaminitis, will need alternative treatment. Tylenol level, salicylic acid level normal INR 1.1 Hepatitis?? A, B, C antibody negative liver doppler - no portal vein thrombosis.??discussed with gi, no further recs. Appreciate GI evaluation ongoing epigastric tenderness, f/u CT abd/pelvis ?? 01/13 - Hb down to 11 from 14, no s/o bleeding. Hb stable in 11s. ? pt noted a fall prior to admission, bilateral knee pain. no swelling noted. ambulating w/o difficulties. ? Hypokalemia (E87.6):??resolved with supp Chest pain:??Atypical presentation.?? Troponins negative.?? EKG with no acute ischemic changes. ??Ruled out for ACS ?? Diabetes mellitus (E11.9):??SSI with POC glucose checks ?? Auditory hallucinations (R44.0):?? Schizoaffective Disorder, Unspecified (F25.9):??Seen by psychiatry??upon arrival.??Recommended to continue benztropine,??hydroxyzine, trazodone??and bupropion. per psych note, dispo deferred to crisis. 01/15 - have tried contacting crisis all day to evaluate pt per psych recs. unable to reach oncall. 01/16 - pt denies any hallucinations, no s/o responding to internal stimuli. 01/17 - crisis eval completed last night, recommend respite housing. awaiting placement. denies any hallucinations. ?? VTE Prophylaxis:??Lovenox ?VTE Prophylaxis Assessment:??VTE Prophylaxis Ordered ?? Code Status:??Full code Objective Assessment and Plan ? Measurements?? Height: 178 cm (01/18/22) Weight: 101.4 kg (01/12/22) Dry Weight: 101.4 kg (01/12/22) Body Mass Index:??32 kg/m2??Critical (01/12/22) ? Vital Signs?? Temperature: 97.9 DegF (01/19/22 07:00:00) Temperature Route: Oral (01/19/22 07:00:00) Pulse Rate: 78 bpm (01/19/22 07:00:00) Respiratory Rate: 19 br/min (01/19/22 07:00:00) Systolic Blood Pressure: 108 mm Hg (01/19/22 07:00:00) Diastolic Blood Pressure: 71 mm Hg (01/19/22 07:00:00) Blood pressure sites: Arm, right (01/19/22 07:00:00) Mean Arterial Pressure: 86 mm Hg (01/18/22 23:51:00) Pulse Pressure: 37 mm Hg (01/19/22 07:00:00) Oxygen Saturation: 100 % (01/19/22 07:00:00) Mode of Delivery (Oxygen): Room air (01/19/22 07:00:00) Early Warning Score: 2 (01/19/22 11:34:47) ? . Physical Exam General: awake alert answers appropriately, in no apparent distress HEENT:??EOMI, sclera anicteric, moist oral mucosa Neck: supple Pulmonary: CTAB, normal WOB Cardiovascular: s1s2 audible Gastrointestinal: soft, epigastric tenderness, no ruq tenderness Extremities: no peripheral edema Neurologic: moves all 4 extremities Psych: mood and affect normal Pending Results Add On Lab Order ordered on 01/10/2022 Add On Lab Order ordered on 01/10/2022 Add On Lab Order ordered on 01/11/2022 Add On Lab Order ordered on 01/15/2022 Add On Lab Order ordered on 01/18/2022 Post Discharge Care Discharge ?01/19/22 11:59:00 EST Home Health Face to Face ^HomeHealthFTF Results Discharge Labs BLOOD COUNT & DIFF WBC 6.3 k/mm3 ()?? 01/14/2022 04:45 RBC 4.27 m/mm3 (Low)?? 01/14/2022 04:45 Hgb 11.8 Gm/dL (Low)?? 01/17/2022 14:14 Hct 37.6 % (Low)?? 01/17/2022 14:14 MCV 82.0 femtoliters ()?? 01/14/2022 04:45 MCH 26.5 pg (Low)?? 01/14/2022 04:45 MCHC 32.3 g/dL (Low)?? 01/14/2022 04:45 Platelet Count 260 k/mm3 ()?? 01/14/2022 04:45 RDW-SD 43.9 femtoliters ()?? 01/14/2022 04:45 MPV 10.5 femtoliters ()?? 01/14/2022 04:45 Nucleated RBC (Automated) 0.0 #/100 WBC'S ()?? 01/14/2022 04:45 Abs. NRBC 0.0 k/mm3 ()?? 01/14/2022 04:45 Abs. Neut 7.4 k/mm3 (High)?? 01/10/2022 20:06 Abs. Lymph 1.1 k/mm3 ()?? 01/10/2022 20:06 Abs. Norman 0.3 k/mm3 (Low)?? 01/10/2022 20:06 Abs. Eo 0.1 k/mm3 ()?? 01/10/2022 20:06 Abs. Baso 0.1 k/mm3 ()?? 01/10/2022 20:06 Neut % 82.7 % (High)?? 01/10/2022 20:06 Lymph % 11.9 % (Low)?? 01/10/2022 20:06 Norman % 3.1 % (Low)?? 01/10/2022 20:06 Eos % 1.0 % ()?? 01/10/2022 20:06 Baso % 0.6 % ()?? 01/10/2022 20:06 Imm Gran 0.7 % ()?? 01/10/2022 20:06 Abs. Imm Gran 0.1 k/mm3 ()?? 01/10/2022 20:06 ?? CARDIAC Nt-Probnp 48 pg/mL ()?? 01/10/2022 20:06 High Sensitivity Troponin (HSTnT) 13 ng/L ()?? 01/11/2022 16:13 ?? CHEM GENERAL Sodium 138 mmol/L ()?? 01/15/2022 07:22 Potassium 4.0 mmol/L ()?? 01/15/2022 07:22 Chloride 98 mmol/L ()?? 01/15/2022 07:22 Bicarbonate Level 31 mmol/L (High)?? 01/15/2022 07:22 Anion Gap 9 ()?? 01/15/2022 07:22 Glucose Level 87 mg/dL ()?? 01/11/2022 11:37 Glucose, POC 76 mg/dL ()?? 01/19/2022 11:31 BUN 3 mg/dL (Low)?? 01/12/2022 06:14 Creatinine-Blood 0.6 mg/dL (Low)?? 01/12/2022 06:14 Estimated GFR Creatinine 128 ML/MIN/1.73 M2 ()?? 01/12/2022 06:14 Calcium 9.3 mg/dL ()?? 01/11/2022 11:37 Magnesium 1.7 mg/dL ()?? 01/10/2022 20:06 Protein, Total 6.2 Gm/dL ()?? 01/13/2022 06:01 Albumin 4.0 Gm/dL ()?? 01/13/2022 06:01 Alkaline Phosphatase 61 units/L ()?? 01/13/2022 06:01 Lipase 26 units/L ()?? 01/18/2022 01:05 AST (SGOT) 35 units/L ()?? 01/18/2022 01:05 ALT (SGPT) 274 units/L (High)?? 01/18/2022 01:05 Bilirubin, Total 1.0 mg/dL ()?? 01/13/2022 06:01 Bilirubin, Direct 0.5 mg/dL (High)?? 01/13/2022 06:01 Bilirubin, Indirect 0.5 mg/dL ()?? 01/13/2022 06:01 Iron Level 114 mcg/dL ()?? 01/15/2022 07:22 Iron Binding Capacity, Unsaturated 128 mcg/dL ()?? 01/15/2022 07:22 Iron Binding Capacity, Estimated Total 242 mcg/dL ()?? 01/15/2022 07:22 % Iron Saturation 47 % ()?? 01/15/2022 07:22 Ferritin Level 640 ng/mL (High)?? 01/15/2022 07:22 ?? COAG INR 1.0 ()?? 01/16/2022 02:17 Protime (PT) 10.9 seconds ()?? 01/16/2022 02:17 D-Dimer 1.01 mg/L FEU (High)?? 01/10/2022 20:06 ? ENDOCRINE/TUMOR MARKER TSH 0.40 uIU/mL ()?? 01/11/2022 09:35 ? HEME OTHER Hold Lavender Top SPECIMEN DISCARDED AFTER 24 HOURS. ()?? 01/15/2022 07:22 Hold Blue Top SPECIMEN DISCARDED AFTER 4 HOURS. ()?? 01/10/2022 20:06 ?? SEROLOGY INF DISEASE Anti Hepatitis A IgM NEGATIVE (N)?? 01/11/2022 23:37 Hepatitis B Surface Antigen NEGATIVE (N)?? 01/11/2022 11:37 Hepatitis B Core Ab, Total NEGATIVE (N)?? 01/11/2022 11:37 Hepatitis B Core Ab, IgM NEGATIVE ()?? 01/11/2022 23:37 Hepatitis C Ab NEGATIVE (N)?? 01/11/2022 23:37 Anti-HBS Quant 4.32 mIU/mL ()?? 01/11/2022 23:37 Anti-HAV IgG NEGATIVE ()?? 01/11/2022 11:37 ? TOXICOLOGY/TDM Salicylate Level <0.3 mg/dL (Low)?? 01/11/2022 23:37 Acetaminophen Level <5 mg/L (Low)?? 01/11/2022 23:37 ?? VIROLOGY COVID-19 PCR Specimen Source NASAL ()?? 01/17/2022 06:40 COVID-19 PCR Result NEGATIVE ()?? 01/17/2022 06:40 COVID-19 POC Result NEGATIVE ()?? 01/10/2022 19:31 ? 35??minutes spent on discharge * Emilee Crump RN: PERFORM Event Display: Patient Education/Instruction Authored Date: [id number] Inpatient Adult Discharge Instructions [address] [address] Name: HELLEN JARRETT : 1990 Visit: 01/11/2022 15:29:00 Current Date: 01/19/2022 12:10 Account: [id number] Inpatient Adult Discharge Instructions We would like to thank you for allowing us to assist you with your healthcare needs. The following includes patient education materials and information regarding your injury/illness. Our entire staffstrives to provide an excellent experience for our patients and their families. PLEASE ENSURE YOU FOLLOW-UP PER THE INSTRUCTIONS BELOW! ?? YOUR OPINION IS IMPORTANT TO US! Please complete the survey you may receive by mail or email. Your feedback will be used to make improvements to the healthcare experiences of our patients and their families. Surveys are administered by [employer] ?? If further treatment with your primary care physician or another doctor is recommended, it is important for you to keep the appointment. Call your primary care physician or return to the Emergency Department immediately if your condition worsens, fails to improve, or new symptoms develop. If you need to find a doctor, you can call [facility] [employer] for a referral at [phone] or toll free at [phone] ([phone]) or log in to [email or web address].. ?? You can view and manage your care through the patient portal or by using a health care blanche of your choosing. [employer] is a website that allows you to securely view your medical information including your hospital discharge summary, office visit summaries, medications and follow-up visits. You can also request appointments, renew medications, and request access to your medical information using a health care blanche of your choosing, or just ask a question. You can enroll at [email or web address] or register during your next office visit. You have been discharged from [facility], Patient Care Unit: W4. If you have any questions regarding these instructions after you leave, please call us and we will be happy to assist you. [facility] Your Care Team Attending Physician Rox Nolasco MD Discharging Providers Rox Nolasco MD Reason for Admission Oax3 coming frrom home sudden onset cp/sob 08/29 sternal non reproducible. denies cardiac hx. Your Diagnosis Transaminitis Diabetes mellitus Hypercholesterolemia Hypertension Schizoaffective Disorder, Unspecified Auditory hallucinations Hypokalemia Tests Performed Below is a partial list of the tests performed during your hospitalization. You may have had other tests and procedures not included in this list. Please discuss all test results with your provider. Acetaminophen Level Alk Phos ALT Anti-HAV IgG Anti-HBS Quant AST B Type Natriuretic Peptide Basic Metabolic Panel Bilirubin Total + Direct BUN CBC CBC w/ Differential COVID-19 (2019 Novel Coronavirus) PCR COVID-19 RNA POC Creatinine D-DIMER Electrolytes FERRITIN GLUCOSE POC H + H Hepatic Function Panel Hepatitis A Ab IgM Hepatitis B Core Ab Hepatitis B Core Ab IgM Hepatitis B Surface Antigen Hepatitis C Ab High??Sensitivity??Troponin T Hold Blue Top Tube HOLD LAVENDER TUBE INR IRON & TIBC LIPASE Liver Function Panel MAGNESIUM Potassium Level Salicylate Level Troponin T, High Sensitivity TSH with T4 Reflex (Adults Only) CT Abd/Pelvis W/ IV + Oral Contrast CT Angio Chest US Abdominal Doppler Comp US Doppler Ext Lower Venous Right US RUQ XR Chest 2 Views Frontal and Lat Primary Care Provider Lamine Lin MD Advance Directive Health Care Proxy on File No Patient refuses to discuss No qualifying data available. Discharge Vitals Temperature: 97.9 DegF Height: 178 cm Pulse Rate: 78 bpm Weight: 101.4 kg Respiratory Rate: 19 br/min Body Mass Index:??32 kg/m2??Critical Systolic Blood Pressure: 108 mm Hg Body surface area: 2.24 Diastolic Blood Pressure: 71 mm Hg ?? Oxygen Saturation: 100 % ?? Studies Pending All tests and labs ordered during this hospital stay have been completed unless listed below. Please discuss all pending results with your provider listed above in these instructions. ?? Add On Lab Order What to do next Instructions From Your Doctor Discharge Orders Scheduled Follow-Up Appointments Monday 10:00 AM EST ?? With: Delia ACOSTA, Lamine Covington Where: [place] [address] [place] [address]- Discharge Medications GAURANGCarlos HELLEN JARRETT :1990 Visit Date:01/11/2022 Medications: Please continue your medications until treatment is completed or stopped by your provider. Medications not listed below should be discontinued. Discuss any questions related to medications with your provider. What How Much When Instructions Next Dose Unchanged Benztropine (benztropine 1 mg oral tablet) 1 tab(s) Oral Twice a day 01/19 2100 Unchanged BuPROpion (buPROPion 150 mg/ 24 hours (XL) oral tablet, extended release) 1 tab(s) Oral Daily 01/21 800 Unchanged Docusate (docusate sodium 100 mg oral capsule) 1 capsule Oral Daily 01/21 800 Unchanged Folic Acid (folic acid 1 mg oral tablet) 1 tab(s) Oral Daily 01/21 800 Unchanged Gabapentin (gabapentin 600 mg oral tablet) 1 tab(s) Oral 3 times a day Duration: 30 Days continue as prescribed (not taken at [facility]) Unchanged HydrOXYzine (hydrOXYzine pamoate 50 mg oral capsule) 50 Milligram Oral Every 6 hours as needed for Anxiety continue as prescribed (not taken at [facility]) Unchanged Loratadine (loratadine 10 mg oral tablet) 1 tab(s) Oral Daily Duration: 30 Days 01/21 800 Unchanged Pantoprazole (pantoprazole 40 mg oral delayed release tablet) 40 Milligram Oral Daily 01/21 800 Unchanged Trazodone (traZODone 100 mg oral tablet) 1 tab(s) Oral Daily at Bedtime 01/19 bedtime ?? What How Much When Comments Stop Taking paliperidone (paliperidone 234 mg/ 1.5 mL intramuscular suspension, extended release) 234 Milligram Intramuscular Every 28 days Due ??on 2021 ?? Test Results Below is a partial list of the most recent Laboratory test results done prior to this discharge. You may have had other tests and procedures not included in this list. Please discuss all test resultswith your provider. Acetaminophen Level (01/11/2022) ? ?Acetaminophen Level - <5 mg/L Alk Phos (01/12/2022) ???Alkaline Phosphatase - 60 units/L ALT (01/18/2022) ???ALT (SGPT) - 274 units/L Anti-HAV IgG (01/11/2022) ???Anti-HAV IgG - NEGATIVE Anti-HBS Quant (01/11/2022) ???Anti-HBS Quant - 4.32 mIU/mL AST (01/18/2022) ???AST (SGOT) - 35 units/L B Type Natriuretic Peptide (01/10/2022) ???Nt-Probnp - 48 pg/mL Basic Metabolic Panel (01/11/2022) ???Sodium - 136 mmol/L???Potassium - 3.1 mmol/L???Chloride - 94 mmol/L???Bicarbonate Level - 32 mmol/L???Anion Gap - 10???Glucose Level - 87 mg/dL???BUN - 9 mg/dL???Creatinine-Blood - 0.7 mg/dL???Estimated GFR Creatinine - 125 ML/MIN/1.73 M2???Calcium - 9.3 mg/dL Bilirubin Total + Direct (01/12/2022) ???Bilirubin, Total - 1.2 mg/dL???Bilirubin, Direct - 0.7 mg/dL???Bilirubin, Indirect - 0.5 mg/dL BUN (01/12/2022) ???BUN - 3 mg/dL CBC (01/14/2022) ???WBC - 6.3 k/mm3???RBC - 4.27 m/mm3???Hgb - 11.3 Gm/dL???Hct - 35.0 %???MCV - 82.0 femtoliters???MCH - 26.5 pg???MCHC - 32.3 g/dL???Platelet Count - 260 k/mm3???RDW-SD - 43.9 femtoliters???MPV - 10.5 femtoliters???Nucleated RBC (Automated) - 0.0 #/100 WBC'S???Abs. NRBC - 0.0 k/mm3 CBC w/ Differential (01/10/2022) ???WBC - 8.9 k/mm3???RBC - 5.53 m/mm3???Hgb - 14.0 Gm/dL???Hct - 44.8 %???MCV - 81.0 femtoliters???MCH - 25.3 pg???MCHC - 31.3 g/dL???Platelet Count - 282 k/mm3???RDW-SD - 40.9 femtoliters???MPV - 10.6 femtoliters???Nucleated RBC (Automated) - 0.0 #/100 WBC'S???Abs. NRBC - 0.0 k/mm3???Abs. Neut - 7.4 k/mm3???Abs. Lymph - 1.1 k/mm3???Abs. Norman - 0.3 k/mm3???Abs. Eo - 0.1 k/mm3???Abs. Baso - 0.1 k/mm3???Neut % - 82.7 %???Lymph % - 11.9 %???Norman % - 3.1 %???Eos % - 1.0 %???Baso % - 0.6 %???Imm Gran - 0.7 %???Abs. Imm Gran - 0.1 k/mm3 COVID-19 (2019 Novel Coronavirus) PCR (01/17/2022) ???COVID-19 PCR Specimen Source - NASAL???COVID-19 PCR Result - NEGATIVE COVID-19 RNA POC (01/10/2022) ???COVID-19 POC Result - NEGATIVE Creatinine (01/12/2022) ???Creatinine-Blood - 0.6 mg/dL???Estimated GFR Creatinine - 128 ML/MIN/1.73 M2 D-DIMER (01/10/2022) ???D-Dimer - 1.01 mg/L FEU Electrolytes (01/15/2022) ???Sodium - 138 mmol/L???Potassium - 4.0 mmol/L???Chloride - 98 mmol/L???Bicarbonate Level - 31 mmol/L???Anion Gap - 9 FERRITIN (01/15/2022) ???Ferritin Level - 640 ng/mL GLUCOSE POC (01/19/2022) ???Glucose, POC - 76 mg/dL H + H (01/17/2022) ???Hgb - 11.8 Gm/dL???Hct - 37.6 % Hepatic Function Panel (01/11/2022) ???Protein, Total - 6.4 Gm/dL???Albumin - 4.2 Gm/dL???Alkaline Phosphatase - 67 units/L???AST (SGOT) - 2124 units/L???ALT (SGPT) - 3128 units/L???Bilirubin, Total - 1.5 mg/dL???Bilirubin, Direct - 0.7 mg/dL???Bilirubin, Indirect - 0.8 mg/dL Hepatitis A Ab IgM (01/11/2022) ???Anti Hepatitis A IgM - NEGATIVE Hepatitis B Core Ab (01/11/2022) ???Hepatitis B Core Ab, Total - NEGATIVE Hepatitis B Core Ab IgM (01/11/2022) ???Hepatitis B Core Ab, IgM - NEGATIVE Hepatitis B Surface Antigen (01/11/2022) ???Hepatitis B Surface Antigen - NEGATIVE Hepatitis C Ab (01/11/2022) ???Hepatitis C Ab - NEGATIVE High??Sensitivity??Troponin T (01/11/2022) ???High Sensitivity Troponin (HSTnT) - 13 ng/L Hold Blue Top Tube (01/10/2022) ???Hold Blue Top - SPECIMEN DISCARDED AFTER 4 HOURS. HOLD LAVENDER TUBE (01/15/2022) ???Hold Lavender Top - SPECIMEN DISCARDED AFTER 24 HOURS. INR (01/16/2022) ???INR - 1.0???Protime (PT) - 10.9 seconds IRON & TIBC (01/15/2022) ???Iron Level - 114 mcg/dL???Iron Binding Capacity, Unsaturated - 128 mcg/dL???Iron Binding Capacity, Estimated Total - 242 mcg/dL???% Iron Saturation - 47 % LIPASE (01/18/2022) ???Lipase - 26 units/L Liver Function Panel (01/13/2022) ???Protein, Total - 6.2 Gm/dL???Albumin - 4.0 Gm/dL???Alkaline Phosphatase - 61 units/L???AST (SGOT) - 429 units/L???ALT (SGPT) - 1475 units/L???Bilirubin, Total - 1.0 mg/dL???Bilirubin, Direct - 0.5mg/dL???Bilirubin, Indirect - 0.5 mg/dL MAGNESIUM (01/10/2022) ???Magnesium - 1.7 mg/dL Potassium Level (01/11/2022) ???Potassium - 3.3 mmol/L Salicylate Level (01/11/2022) ? ?Salicylate Level - <0.3 mg/dL Troponin T, High Sensitivity (01/10/2022) ???High Sensitivity Troponin (HSTnT) - 18 ng/L TSH with T4 Reflex (Adults Only) (01/11/2022) ???TSH - 0.40 uIU/mL Allergies (NKA means No Known Allergies) Dust Milk Products??(Nausea and vomiting) cloNIDine??(confusion) lisinopril??(dry cough) Problems Active Problems??(16) N/[facility]/Internal Medicine Hospitalist-Tia Jarrett [phone]/Health halfway, active care coordination?? Diabetes mellitus?? Esophageal reflux (GERD)?? Gastric polyp?? Gynecomastia?? Hypercholesterolemia?? Hypertension?? Morbid obesity with BMI of 45.0-49.9, adult?? NAFLD (nonalcoholic fatty liver disease)?? Obese class I?? Obstructive sleep apnea, Complex sleep apnea?? Schizoaffective Disorder, Unspecified?? Sleep related hypoxia?? Treatment-emergent central sleep apnea?? vomiting s/p meals?? Wenckebach?? Education Materials Below is the list of Educational Leaflet Providered with your Discharge Instructions. Valuables and Belongings I fully understand and agree that [facility] Hospital accepts no responsibility for all my personal property including clothing, toilet articles, radios, jewelry, dentures, hearing aids, rings, money, or any other property that is in my possession or is brought to me after admission. I understand certain valuables may be placed in a hospital safe for a short period of time. I understand that the hospital is not liable for loss or damage due to accident, fire, or other natural occurrence while said property is in the safe. I accept full responsibility for any personal property that I keep with me, and will not hold the hospital responsible in case of loss or disappearance. I acknowledge that i have been encouraged to send valuables and belongings home. ?? Safe envelope number: [id number] Date for Pt to Sign Valuables/Belongings: 01/12/22 14:28:00 ?? Other Discharge Information ? Pulmonary Rehab Status?? Pulmonary Rehab Discharge Status?? Respiratory Rate: 19 br/min ? Common Emergency Awareness Tips IS IT A STROKE? Act FAST and Check for these signs: FACE Does the face look uneven? ARM Does one arm drift down? SPEECH Does their speech sound strange? TIME Call at any sign of stroke ?? Heart Attack Signs Chest discomfort: Most heart attacks involve discomfort in the center of the chest and lasts more than a few minutes, or goes away and comes back. It can feel like uncomfortable pressure, squeezing, fullness or pain. Discomfort in upper body: Symptoms can include pain or discomfort in one or both arms, back, neck, jaw or stomach. Shortness of breath: With or without discomfort. Other signs: Breaking out in a cold sweat, nausea, or lightheaded. Remember, MINUTES DO MATTER. If you experience any of these heart attack warning signs, call to get immediate medical attention! ?? Smoking can increase your chances of developing chronic health problems and can cause harmful effects to other family members in your house. If you smoke, you are strongly encouraged to quit. Please call [facility] at [phone] or 9-099-985Appature ([phone]) or log in to [email or web address] for referrals to smoking cessation programs. ?? The National Suicide Prevention Hotline is available 12/09 if you or someone you know needs to find a reason to keep living. By calling 8-449-874-[place] (1264) you'll be connected to a skilled, trained counselor at a crisis center in your area. INPATIENT DISCHARGE INSTRUCTIONS SIGNATURE PAGE HELLEN ORTIZ Location:[facility] Registration Date and Time:01/11/2022 15:29 EST Primary Care Physician: Delia ACOSTA, Lamine Covington, I HELLEN ORTIZ, have received the above patient education materials/instructions and have verbalized understanding. If ambulance or transport services are being used I further acknowledge being given a choice of service. ?? If you need to contact me, please call me at this number: . Patient/Welt Treater Name: Patient/Welt Treater Signature: Relationship to Patient: Witness Name/Signature: Date: * BHSPowerscJOLANTA sequeira S: Michael Grimm MD: VERIFY Eva Waldron DO F: SIGN Event Display: Result: Authored Date: [id number] US Abdominal Doppler Comp REASON: Doppler ultrasound of the liver to assess vascular lesions; Clinical Questions: assess portal vein and hepatic vein for thrombus lesions and the hepatic artery TECHNIQUE: Color flow and duplex Doppler analysis of abdominal vasculature. COMPARISON: Right upper quadrant ultrasound 01/11/[address] abdomen/pelvis 05/07/2021 FINDINGS: Vascular Findings: Arteries: Hepatic arteries: Arterial waveforms in the visualized hepatic arteries are normal. Hepatic artery angle-corrected velocity: 76.8 cm/sec. Hepatic artery resistive index: 0.7 (Normal range: 0.55-0.7). Veins: Portal veins: The main, right and left portal veins are patent with appropriate hepatopetal direction of flow. Portal vein angle-corrected velocity: 20.4 cm/sec (Normal range: 16-40 cm/sec). Hepatic veins: The right, middle and left hepatic veins are patent with appropriate hepatofugal flow and phasic form. Inferior vena cava: IVC is patent with appropriate direction of flow. Splenic vein: Not visualized at the pancreas. Splenic vein is visualized at the hilum is patent with appropriate hepatopetal direction of flow. Spleen length: 10.0 cm. IMPRESSION: 1. No evidence of portal venous thrombosis. I have personally reviewed the images and I agree with this report. WSN: [id number] Ordering Physician: Patrick Medina Dictated By: Eva Waldron DO Dictated Date/Time: 01/14/22 1:38 pm Reviewed By: Michael Stevenson MD Signed By: Michael Stevenson MD Signed Date/Time: 01/14/22 1:43 pm Transcribed By: TIP Transcribed Date/Time: 01/14/22 11:53 am * BHSPowerscribe , CIS S: TRANSCRIBE Michael Dee MD J: VERIFY Event Display: Result: Authored Date: US RUQ Hx of Present Illness: chest pain; Reason: Other:; Abdominal Pain; Clinical Question(s): Cholecystitis COMPARISON: CT abdomen and pelvis 04/29/2021, right upper quadrant ultrasound 02/25/2019 FINDINGS: Liver: Normal in size and echotexture. No focal lesion. Main portal vein patent with normal hepatopetal direction of flow. Gallbladder: Numerous scattered areas of comet tail reverberation artifact throughout the gallbladder wall consistent with diffuse adenomyomatosis. Few underlying small echogenic gallstones not excluded. Normal wall thickness. No pericholecystic fluid. Negative Frost sign. Biliary Tree: No intrahepatic or extrahepatic bile duct dilation is identified. Common duct measures: 0.2 cm. Pancreas: Partially obscured by overlying bowel gas. No abnormality in the visualized portions of the pancreas. Right kidney: Normal parenchymal echotexture and thickness. No hydronephrosis, stone or mass. IMPRESSION: No sonographic evidence of acute cholecystitis or biliary ductal dilatation. Diffuse adenomyomatosis involving gallbladder wall with few underlying small gallstones not excluded. WSN: [id number] Ordering Physician: Shmuel Klein MD Dictated By: Michael Dee MD Dictated Date/Time: 01/11/22 2:12 pm Reviewed By: Michael Dee MD Signed By: Michael Dee MD Signed Date/Time: 01/11/22 2:12 pm Transcribed By: TIP Transcribed Date/Time: 01/11/22 2:08 pm * BHSPowerscribe , CIS S: TRANSCRIBE Nikole Berg DO: Linsey Rivera MD: VERIFY Event Display: Result: Authored Date: US Doppler Ext Lower Venous Right Hx of Present Illness: Right lower extremity pain. Reason: Pain in limb; Clinical Question(s): Thrombus COMPARISON: Right lower extremity venous Doppler ultrasound 12/13/2021 IMAGING TECHNIQUE: Ultrasound of the veins from the groin through the calf was performed using grayscale, color, and spectral Doppler ultrasound assessing for complete compressibility and normal flowcharacteristics. FINDINGS: Common femoral vein: Patent. No thrombosis. Femoral vein: Patent. No thrombosis. Popliteal vein: Patent. No thrombosis. Gastrocnemius veins: The visualized portions are patent without evidence of thrombosis. Peroneal veins: The visualized portions are patent without evidence of thrombosis. Posterior tibial veins: The visualized portions are patent without evidence of thrombosis. Contralateral common femoral vein: Patent. No thrombosis. IMPRESSION: No evidence of deep venous thrombosis. I have personally reviewed the images and I agree with this report. WSN: [id number] Ordering Physician: [place] Dictated By: Nikole Berg DO Dictated Date/Time: 01/11/22 7:10 am Reviewed By: Linsey Desai MD Signed By: Linsey Desai MD Signed Date/Time: 01/11/22 7:15 am Transcribed By: TIP Transcribed Date/Time: 01/11/22 4:06 am * DAPHNIESPowerschua , CIS S: TRANSCRIBE Leonardo Galeana MD: VERIFY Event Display: Result: Authored Date: Chest 2 Views Frontal and Lat Hx of Present Illness: chest pain; Reason: Other:; Chest Pain; Clinical Question(s): Other: COMPARISON: None. FINDINGS: LINES AND TUBES: None. LUNGS AND PLEURA: Clear lungs. Normal pulmonary vascularity. No pleural effusion. No pneumothorax. HEART, MEDIASTINUM AND SUGEY: Heart is normal in size. Normal mediastinal and hilar contour. BONES AND SOFT TISSUES: No acute abnormality. IMPRESSION: No acute abnormality. WSN: [id number] Ordering Physician: Michael Staley Dictated By: Leonardo Galeana MD Dictated Date/Time: 01/10/22 8:50 pm Reviewed By: Leonardo Galeana MD Signed By: Leonardo Galeana MD Signed Date/Time: 01/10/22 8:50 pm Transcribed By: TIP Transcribed Date/Time: 01/10/22 8:49 pm Hospital Progress note * Love Ribeiro RN: PERFORM, SIGN, VERIFY Event Display: Progress Note Hospital Authored Date: [id number] Patient: HELLEN ORTIZ Age: 31 years Sex: Male : 1990 Associated Diagnoses: None Author: Love Ribeiro RN Findings Problem Related to Alteration in Fluid Electrolyte : Alteration in Fluid Electrolyte Func/new 01/19/2022 4:00 EST Alteration Fluid Electrolytes Related to Electrolyte Imbalance Goals & Outcomes, Fluid/Electrolyte Blood glucose levels will stabilize during hospitalization,Vital signs, electrolytes & glucose levels will stabilize, Pt will resume/maintain adequate hemodynamic status Interventions, Fluid Electrolyte Monitor effects of dialysis/ultrafiltration, monitor cardiac status, monitor dietary intake, Monitor effects of diuretics, monitor effects of insulin, glucose values,monitor effects of intravenous fluid, monitor for onset of acute bleeding, monitor for s/s of anemia: weakness, fatigue,, monitor for s/s of hyper/hypokalemia, monitor for s/s of hypo or hyperglycemia, monitor GI/ status, monitor hydration status, monitor mucous membranes, monitor peripheral pulses, monitor skin turgor, temperature & capillary refill, Encourage & assist with increased activity as pt tolerates, Encourage oral intake of meals, snacks, supplements, Encourage oral intake/f luids as ordered, Maintain strict intake & output, Monitor & document daily weight Goals/Interventions,Fluid Electrolyte Yes Fluid Electrolyte, Problem Start 01/13/2022 2:41 Reviewed plan with, Fluid Electrolyte Patient Patient Progression, Fluid Electrolyte Pt progressing according to plan . Alteration in Gastrointestinal : Alteration in Gastrointestinal Func/new 01/19/2022 4:00 EST Alteration in GI status Related to Other: Transaminitis Goals & Outcomes, Gastrointestinal Establish a regular pattern of elimination for pt, Nutritional intake is adequate for metabolic needs, Pt will achieve normal/improved fluid balance, Pt will have a bowel movement prior to discharge, Pt will maintain adequate GI function appropriate for pt, Ptwill maintain normal elimination patterns, Pt will resume/maintain adequate hemodynamic status, Pt w ill tolerate age appropriate diet prior to discharge Interventions, Gastrointestinal Assess/monitor abdomen for distention, tenderness, Assess/monitor abdominal girth & bowel function, Assess/monitor bowel pattern, bowel sounds, flatus, Assess/monitor number of bowel movements, Assess/monitor color, quantity, quality, consistency of stoo, Assess/monitor pt for nausea, vomiting, Assess/monitor effects of re-hydration, Assess/monitor intake &output, Assess if pt tolerating diet, Collaborate/Consult with High Voltage Electrician; review recommendations, DVT prophylaxis as ordered, Elevate HOB to facilitate lung expansion, prevent aspiration, Establish toileting schedule for patient, Taking PO: Encourage/monitor intake & swallowing ability, Teach Pt /caregiver diet & give copy of dietary instructions, Teach Pt/caregiver on bowel elimination interventions, Teach Pt/caregiver re: importance of bowel regime Goals/Interventions, Gastrointestinal Yes Gastrointestinal, Problem Start 01/11/2022 20:00 Reviewed plan with, Gastrointestinal Patient Patient Progression, Gastrointestinal Pt progressing according to plan . Nursing Data Cardiac Data. : Cardiac Data. 01/18/2022 21:00 EST Nail Bed Color, Fingers [place] Nail Bed Color, Toes [place] Skin Temperature Upper Extremities Warm Skin Temperature Lower Extremities Warm Capillary Refill < 3 seconds Radial Pulse, Left Normal Radial Pulse, Right Normal Dorsalis Pedis Pulse, Left Normal Dorsalis Pedis Pulse, Right Normal monitoring manager No Cardiovascular WNL except . Gastrointestinal Data. : Gastrointestinal Data. 01/18/2022 21:00 EST Abdomen Soft, Non-tender, Round Bowel Sounds LUQ Present Bowel Sounds RUQ Present Bowel Sounds LLQ Present Bowel Sounds RLQ Present Last Bowel Movement 01/18/2022 GI WNL except Normal Bowel Pattern Every third day . Vital Signs : VITAL SIGNS SECTION 01/18/2022 19:34 EST Temperature 98.1 DegF Temperature Route Oral Pulse Rate 81 bpm Respiratory Rate 19 br/min Systolic Blood Pressure 114 mm Hg Diastolic Blood Pressure 68 mm Hg Blood pressure sites Arm, left Mean Arterial Pressure 83 mm Hg Pulse Pressure 46 mm Hg Oxygen Saturation 99 % Mode of Delivery (Oxygen) Room air . Evaluation Pt. is alert and orientated x 3. calm and cooperative with care. pt. denies any sob, chest pain, dizziness or nausea. Pt. c/o pain bilateral knees, applied topical analgesia with effect. Pt. had CT of abdo done. see full assessment in cis will continue to monitor and report any changes. . * Lorena Alvarez RN: PERFORM, SIGN, VERIFY Event Display: Progress Note Hospital Authored Date: Patient: HELLEN ORTIZ Age: 31 years Sex: Male : 1990 Associated Diagnoses: None Author: Lorena Alvarez RN Findings Problem Related to Alteration in Fluid Electrolyte : Alteration in Fluid Electrolyte Func/new 01/18/2022 3:00 EST Alteration Fluid Electrolytes Related to Electrolyte Imbalance Goals & Outcomes, Fluid/Electrolyte Blood glucose levels will stabilize during hospitalization,Vital signs, electrolytes & glucose levels will stabilize, Pt will resume/maintain adequate hemodynamic status Interventions, Fluid Electrolyte monitor dietary intake, monitor effects of insulin, glucose values, monitor for onset of acute bleeding, monitor for s/s of anemia: weakness, fatigue,, monitor for s/s of hyper/hypokalemia, monitor for s/s of hypo or hyperglycemia, monitor GI/ status, monitor hydration status, monitor peripheral pulses, monitor skin turgor, temperature & capillary refill, Encourage oral intake of meals, snacks, supplements, Encourage oral intake/fluids as ordered BH Goals/Interventions,Fluid Electrolyte Yes Fluid Electrolyte, Problem Start 01/13/2022 2:41 . Evaluation Patient alert and oriented X3, pleasant and cooperative. Lungs clear. Abdomen soft, non-tender, BS+. BM today. C/O pain to upper abdomen- given maalox with good effect. Voiding in the bathroom. Ambulates in the room independently with steady gait Patient c/o dizziness this afternoon- Vitals signs stabel, passed on its own- reported to Dr. Mittal. Patient educated to not get out of bed if feeling dizzy. Tolerating diet withotu difficulty. Rating pain to knees 08/29- lidocaine ointment applied as ordered. Will continue to montior. . * Daxa ACOSTA, Chela G: MODIFY, MODIFY, PERFORM Event Display: Progress Note Hospital Authored Date: Patient: ??HELLEN ORTIZ ? Age:??31 Years?Sex:??Male?:??1990?? Subjective Patient seen and examined at bedside. No fevers overnight, on room air. LFTs improved. Pt c/o ongoing epigastric pain. Ordered CT abd/pelvis. Patient was awaiting respite bed, escalated this as pt has been waiting for a few days now, per Missy PETER RN, pt no longer on bed search. Unclear if pt cleared for dc, cortexted psych, awaiting response. Review of Systems as above otherwise negative Objective Measurements?? Height: 178 cm (01/17/22) Weight: 101.4 kg (01/12/22) Dry Weight: 101.4 kg (01/12/22) Body Mass Index:??32 kg/m2??Critical (01/12/22) ? Vital Signs?? Temperature: 98.2 DegF (01/18/22 07:00:00) Temperature Route: Oral (01/18/22 07:00:00) Pulse Rate: 73 bpm (01/18/22 07:00:00) Respiratory Rate: 20 br/min (01/18/22 07:00:00) Systolic Blood Pressure: 109 mm Hg (01/18/22 07:00:00) Diastolic Blood Pressure: 63 mm Hg (01/18/22 07:00:00) Blood pressure sites: Arm, right (01/18/22 07:00:00) Mean Arterial Pressure: 85 mm Hg (01/17/22 23:35:00) Pulse Pressure: 46 mm Hg (01/18/22 07:00:00) Oxygen Saturation: 98 % (01/18/22 07:00:00) Mode of Delivery (Oxygen): Room air (01/18/22 07:00:00) Early Warning Score: 0 (01/18/22 11:41:16) ? Intake/Output? 01/11 15:29 01/18 07:00 01/17 07:00 01/16 07:00 01/15 07:00 ?? 01/18 13:31 01/18 13:31 01/18 06:59 01/17 06:59 01/16 06:59 Intake ? 4100 ?480 ?600 ?960 ?660 Output ?0 ?0 ?0 ?0 ?0 Net Total ? 4100 ?480 ?600 ?960 ?660 ? Physical Exam General: awake alert answers appropriately, in no apparent distress HEENT:??EOMI, sclera anicteric, moist oral mucosa Neck: supple Pulmonary: CTAB, normal WOB Cardiovascular: s1s2 audible Gastrointestinal: soft, epigastric tenderness, no ruq tenderness Extremities: no peripheral edema Neurologic: moves all 4 extremities Psych: mood and affect normal _ Inpatient Medications Medications (27) Active SCHEDULED: (10) Benztropine 1 mg Tablet (Cogentin Tablet) ??1 mg, By Mouth, 2 times a day BuPROPion XL 150 mg Tablet (Wellbutrin XL Tablet) ??150 mg, By Mouth, Daily Docusate Sodium 100 mg Capsule (docusate sodium 100 mg oral capsule) ??100 mg 1 capsule, By Mouth, Daily Enoxaparin 40 mg Inj (Enoxaparin Inj) ??40 mg 0.4 mL, Subcutaneous Injection, Daily Insulin Lispro 100 units/mL Inj (3mL) (Insulin LISPRO Sliding Scale) ??2-10 units, Subcutaneous Injection, 3 times a day before meals Lidocaine 5% Ointment (Lidocaine 5% Topical) ??1 application, Topically, 3 times a day Loratadine 10 mg Tablet (loratadine 10 mg oral tablet) ??10 mg, By Mouth, Daily NaCl 0.9% Flush 3ml (NaCL 0.9% Flush) ??3 mL, IV Push, Every 8 hours Pantoprazole 40 mg EC Tablet (pantoprazole 40 mg oral delayed release tablet) ??40 mg, By Mouth, Daily Trazodone 50 mg Tablet (traZODone 50 mg oral tablet) ??150 mg, By Mouth, Daily at bedtime CONTINUOUS: (0) PRN: (17) Al hydroxide/Mg hydroxide/simethicone 200 mg-200 mg-20 mg/5 mL Susp UD (Maalox Plus Liquid) ??30 mL, By Mouth, Every 8 hours Dextromethorphan-Guaifenesin 20 mg-200 mg/10 mL Liqu UD (Robitussin DM Liquid) ??10 mL, By Mouth, Every 4 hours Dextrose Inj Syringe (Dextrose 50% Inj Syringe (25Gm)) ??12.5 Gm, IV Push Slowly, Every 20 minutes Dextrose Inj Syringe (Dextrose 50% Inj Syringe (25Gm)) ??25 Gm, IV Push Slowly, Every 15 minutes diphenhydrAMINE 25 mg Tablet (Benadryl Tablet) ??50 mg, By Mouth, Every 6 hours Glucagon 1 mg Inj (Glucagon Inj) ??1 mg, Intramuscular, Once Glucose 40% Gel (15 Gm) (Glucose Gel) ??15 Gm, By Mouth, Every 20 minutes Glucose 40% Gel (15 Gm) (Glucose Gel) ??30 Gm, By Mouth, Every 20 minutes HydrOXYzine Pamoate 25mg Capsule (Vistaril Capsule) ??50 mg, By Mouth, Every 6 hours Ibuprofen 400 mg Tablet (Ibuprofen Tablet) ??400 mg, By Mouth, Every 8 hours Melatonin 3 mg Tablet (Melatonin Tablet) ??3 mg, By Mouth, Daily at bedtime NaCl 0.9% Flush 3ml (NaCL 0.9% Flush) ??3 mL, IV Push, Every 8 hours Olanzapine 5 mg Tablet (olanzapine 5 mg oral tablet) ??5 mg, By Mouth, Every 6 hours Ondansetron 2mg/mL Inj (2mL Vial) (Zofran Inj) ??4 mg, IV Push, Every 6 hours Polyethylene Glycol 17 Gm Powder (MiraLax Powder) ??17 Gm 1 pack/packet, By Mouth, Daily Senna 8.6 mg / Docusate 50 mg tablet (Docusate/Senna Tablet) ??1 tablet, By Mouth, 2 times a day Simethicone 80 mg Chewable Tablet (Simethicone Tablet) ??80 mg, Chew, 3 times a day ? Results Recent Labs BLOOD COUNT & DIFF Hgb 11.8 Gm/dL (Low)?? 01/17/2022 14:14 Hct 37.6 % (Low)?? 01/17/2022 14:14 ?? CHEM GENERAL Glucose, POC 85 mg/dL ()?? 01/18/2022 11:39 AST (SGOT) 35 units/L ()?? 01/18/2022 01:05 ALT (SGPT) 274 units/L (High)?? 01/18/2022 01:05 ?? VIROLOGY COVID-19 PCR Specimen Source NASAL ()?? 01/17/2022 06:40 COVID-19 PCR Result NEGATIVE ()?? 01/17/2022 06:40 ? Blood Glucose Trend Glucose, POC: 85 mg/dL (01/18/22 11:39:00) Glucose, POC: 84 mg/dL (01/18/22 07:56:00) Glucose, POC:??105 mg/dL??High (01/17/22 21:08:00) Glucose, POC: 92 mg/dL (01/17/22 16:40:00) ? Coagulation Profile?? No qualifying data available. ?? Microbiology ?? COVID-19 (2019 Novel Coronavirus) PCR?? Completed?? Source: Nasal Body Site: Nose Collected Dt/Tm: 01/13/2022 05:03 Last Updated Dt/Tm: 01/13/2022 14:14 COVID-19 (2019 Novel Coronavirus) PCR?? Completed?? Source: Nasal Body Site: Nose Collected Dt/Tm: 01/17/2022 06:11 Last Updated Dt/Tm: 01/17/2022 23:30 ? Assessment/Plan 31-year-old??male ??with??hypertension, hyperlipidemia, GERD, hepatic steatosis, obstructive sleep apnea, schizoaffective disorder, history of medication noncompliance, multiple psychiatric hospitalizations, admitted for further evaluation and management of transaminitis??and??auditory hallucinations ?? Transaminitis (R74.01): likely??due to drug induced liver injury??- continues to improve anemia AST and ALT significantly elevated, above 2000.??Last levels from??a month ago normal. Has history of nonalcoholic??hepatic steatosis No history of recent alcohol use. ??Ultrasound of the right upper quadrant does not show any??biliary dilatation??or cholecystitis. admitted to Recent Tylenol use(he mentioned??he was using 2 tablets a day for last 7 days) Invega Sustenna 234 mg IM last received 12/14/21, has been tapering the dose, known to cause transaminitis, will need alternative treatment. Tylenol level, salicylic acid level normal INR 1.1 Hepatitis?? A, B, C antibody negative liver doppler - no portal vein thrombosis.??discussed with gi, no further recs. Appreciate GI evaluation ongoing epigastric tenderness, f/u CT abd/pelvis ?? 01/13 - Hb down to 11 from 14, no s/o bleeding. Hb stable in 11s. ? pt noted a fall prior to admission, bilateral knee pain. no swelling noted. ambulating w/o difficulties. ? Hypokalemia (E87.6):??resolved with supp Chest pain:??Atypical presentation.?? Troponins negative.?? EKG with no acute ischemic changes. ??Ruled out for ACS ?? Diabetes mellitus (E11.9):??SSI with POC glucose checks ?? Auditory hallucinations (R44.0):?? Schizoaffective Disorder, Unspecified (F25.9):??Seen by psychiatry??upon arrival.??Recommended to continue benztropine,??hydroxyzine, trazodone??and bupropion. per psych note, dispo deferred to crisis. 01/15 - have tried contacting crisis all day to evaluate pt per psych recs. unable to reach oncall. 01/16 - pt denies any hallucinations, no s/o responding to internal stimuli. 01/17 - crisis eval completed last night, recommend respite housing. awaiting placement. denies any hallucinations. ?? VTE Prophylaxis:??Lovenox ?VTE Prophylaxis Assessment:??VTE Prophylaxis Ordered ?? Code Status:??Full code ?? Discharge planning: respite bed pending, f/u CT abd/pelvis ? CT Abdomen and Pelvis W contrast IV * BHSPowerscribe , CIS S: TRANSCRIBE Flaco ACOSTA, Eduardo S: VERIFY Event Display: Result: Authored Date: CT Abd/Pelvis W/ IV + Oral Contrast Reason: Pain; Clinical Question(s): Other:; source of epigastric pain; Order Comment: TECHNIQUE: Spiral CT through the abdomen and pelvis with IV contrast formatted in 3 planes. 100 cc of Omnipaque 300 was administered intravenously. This study was performed without oral contrast. Weight-based protocol using automatic tube modulation was used to optimize exposure parameters. CTDIvol Body: 19.97 mGy, DLP Body: 1161 mGy*cm. COMPARISON: 05/07/2021 FINDINGS: [place] Boiler View Findings, Lines and Tubes: None. Visualized Chest: Lung bases are clear. No pleural effusion. The heart is normal in size. No pericardial effusion. Diaphragm: Normal. Liver: Normal. Gallbladder: No CT evidence of gallbladder pathology. Bile ducts: No biliary ductal dilation. Spleen: Normal. Pancreas: Normal. Adrenal glands: Normal. Kidneys and ureters: No hydronephrosis, stones, or suspicious masses. Bladder: Normal. Reproductive organs: Unremarkable. Stomach, small bowel, and large bowel: Large amount of stool seen within the colon. No evidence of obstruction. No wall thickening identified. No periintestinal inflammatory change. Appendix: Normal. Peritoneum and retroperitoneum: No ascites or pneumoperitoneum. No omental or mesenteric lesions. Lymph nodes: No enlarged lymph nodes. Blood vessels: Normal. No aneurysm. No evidence of venous thrombosis. Abdominal and pelvic wall: Unremarkable. Bones: No acute abnormality. IMPRESSION: Large amount of stool seen within the colon. Otherwise unremarkable CT scan of the abdomen and pelvis. WSN: [id number] Ordering Physician: Chela Mittal Dictated By: Eduardo Sam MD Dictated Date/Time: 01/18/22 9:02 pm Reviewed By: Eduardo Sam MD Signed By: Eduardo Sam MD Signed Date/Time: 01/18/22 9:02 pm Transcribed By: TIP Transcribed Date/Time: 01/18/22 8:57 pm CTA Chest vessels W contrast IV * BHSPowerscribe , CIS S: TRANSCRIBE Nikole Berg DO: Linsey Rivera MD: VERIFY Event Display: Result: Authored Date: [id number] EXAMINATION: CT Angio Chest INDICATION: Hx of Present Illness: Chest pain. Reason: PE suspected, Intermediate prob, positive D-dimer. Clinical Question(s): Pulmonary Embolism; TECHNIQUE: Spiral CTA of the chest was performed after rapid IV contrast administration without cardiac gating, triggered by an LIZZY on the main pulmonary artery. Images are formatted in multiple planes using 2-D multiplanar and 3-D maximum intensity projection. 100 cc of Omnipaque 300 was administered intravenously. Weight-based protocol using automatic tube modulation was used to optimize exposure parameters. CTDIvol Body: 11.77 mGy, DLP Body: 640 mGy*cm. COMPARISONS: Chest radiograph 01/10/2022 ANGIOGRAPHIC FINDINGS: No pulmonary embolism to the distal lobe to the proximal most segment level. Normal caliber pulmonary arteries. No acute aortic abnormality seen on this study performed without cardiac gating. NON-ANGIOGRAPHIC FINDINGS: Lime Boiler View Findings, Lines and Tubes: None. Trachea and Airways: Patent without evidence of tracheal or endobronchial lesion. Lungs and Pleura: Decreased inspiratory effort/low lung volumes. Clear lungs. No effusion or pneumothorax. Mediastinum and sugey: No mass or hematoma. No mediastinal or hilar lymphadenopathy. No esophageal abnormality. Heart: Heart is normal in size. No pericardial effusion. Chest Wall Soft Tissues: Moderate to marked bilateral gynecomastia. Diaphragm and upper abdomen: Hepatic steatosis. Bones: No acute abnormality. IMPRESSION: No evidence of pulmonary embolism. No acute cardiopulmonary abnormality. I have personally reviewed the images and I agree with this report. WSN: [id number] Ordering Physician: [place] Dictated By: Nikole Berg DO Dictated Date/Time: 01/11/22 7:17 am Reviewed By: Linsey Desai MD Signed By: Linsey Desai MD Signed Date/Time: 01/11/22 7:22 am Transcribed By: TIP Transcribed Date/Time: 01/11/22 3:49 am Patient Care team information Care Team Personnel Name: Suzy Yanse RN Position: [facility] RN Member Role: Primary Care Nurse Name: Ela Beltrán RN Position: [facility] AMB Nurse Member Role: Primary Care Nurse Name: Alaina Gillette RN Position: [facility] RN Member Role: Primary Care Nurse Name: Lorna Gentile NP Position: [facility] Associate Professional Member Role: Primary Care Nurse Address: Address: [address] [place] [address]- Name: Venus Jaramillo Position: [facility] RN Member Role: Primary Care Nurse Name: Flor Donnelly RN Position: [facility] RN Member Role: Primary Care Nurse Name: Ruiz Matson RN Position: [facility] RN Member Role: Primary Care Nurse Name: Emilee Crump RN Position: [facility] RN Member Role: Primary Care Nurse Name: Belle Ames RN Position: [facility] RN Member Role: Primary Care Nurse Name: Alex Rios RN Position: [facility] RN Member Role: Primary Care Nurse Name: Daniel Hernandez III, RN Position: [facility] RN Member Role: Primary Care Nurse Name: Jordi Carter MD Position: [facility] Renal MD Member Role: Lifetime Consulting Physician Address: Address: [address] [facility] [place] [address]- [place] Name: Loren Hamlin RN Position: [facility] RN Member Role: Primary Care Nurse Name: Malia Wise RN Position: S RN Member Role: Primary Care Nurse Name: Jessica Dia RN Position: S RN Member Role: Primary Care Nurse Name: Kristyn Salcido RN Position: S RN Member Role: Primary Care Nurse Name: Amaya Ontiveros RN Position: [facility] RN Member Role: Primary Care Nurse Name: Lamine Lin MD Position: [facility] Primary Care Physician Member Role: PCP Address: Address: [address] [facility] [place] [address]- Name: Renzo Lyons RN Position: [facility] RN Member Role: Primary Care Nurse Name: Rose Abraham RN Position: [facility] Hospital Parimutuel Ticket Seller Member Role: Primary Care Nurse Name: Vinod Botello MD Position: [facility] Psychiatry MD Member Role: Lifetime Consulting Physician Address: Address: [address] [place] [address]- Name: *Stephie REYES Attending Position: [facility] ED Medicine MD Name: Mariya Anderson Position: [facility] ED OA Charge Member Role: ED Associate Name: Olga Cade RN Position: [facility] ED RN W/OE and Tasks Member Role: Patient Care Provider Name: Emelina Lemon Position: [facility] ED TA [facility] Member Role: Motel Maid Care Team Related Persons Name: MALIA HARRIS Name: KATHLEEN JACQUES Address: home [address] [place] [address] Name: VIRGIL PARKS Address: home [address] [place] [address] Name: MICHAELA MONTENEGRO Address: home UNKNOWN Name: MIGUEL PUENTES Address: home [address] [place] [address]
--- OUTSIDE RECORDS SUMMARY | 2022-08-02 17:42 | XMS_ITS | Continuity of Care Document ---
Author Name Unknown Organization [facility] Address [address] [place] [address]- Care Team Providers Care Mathematics Professor Name Role Phone Delia ACOSTA, Lamine Covintgon Primary Care Physician [phone] [facility]counter [facility] Date(s): 06/02/20 - 07/02/20 [facility] [address] [place], [place] [address] Allergies, Adverse Reactions, Alerts Substance Reaction [...] 18:13:00 EST, Aerosol, Route to Pharmacy Electronically, [id number], [facility] [place], [place] - [id number], 177, cm... Start Date: 01/02/20 Status: Ordered amLODIPine 5 mg oral tablet 5 mg, 1, tablet, By Mouth, Daily, # 30 tablet, Refills 11, Tot. Refills 11, Maintenance, 02/03/20 16:45:00 EST, Route to Pharmacy Electronically, [facility], [facility] [id number], 178, cm, 01/28/20 6:28:00 EST, Height, 158, [...] 5 Refills, Maintenance, 07/01/20 9:26:00 EDT, Tablet, [facility], [facility] [id number], Label in Belarusian., 177.9, cm, 04/16/20 13:38:00 EST, Height, 153.2, kg, 03/16/20 12:24:00 EST, Dry We... Start Date: 07/01/20 Status: Ordered chlorthalidone 25 mg oral tablet 12.5 mg, 0.5, tablet, By Mouth, Daily, # 15 tablet, Refills 5, Tot. Refills 5, Maintenance, 02/04/20 15:34:00 EST, Route to Pharmacy Electronically, [facility], [facility] [id number], Partial fill upon patient request if the [...] mL, 0 Refills, Maintenance, 02/24/20 11:15:00 EST, [place], [facility] [id number], 1 sprays Nares, Both 2 times a day, 178, cm, 02/04/20 15:21:00 EST, Height, 158, kg, 01/07/20 14:48:0... Start Date: 02/24/20 Status: Ordered Flovent Diskus 100 mcg/inh inhalation powder 1 puffs, Inhalation, 2 times a day, # 60 each, 0 Refills, Maintenance, 03/03/20 10:49:00 EST, Powder, [facility] [id number], Partial fill upon patient request if the prescription is for a schedule II opioid drug., 1 puffs Inha... Start Date: 03/03/20 Status: Ordered GuaiFENesin DM 20 mg-200 mg/10 mL oral liquid 10 mL, By Mouth, Every 4 hours, PRN as needed for cough, not to exceed 6 doses/day, # 120 mL, 0 Refills, Maintenance, 03/03/20 11:05:00 EST, Liquid, [facility] [id number], Partial fill upon patient request if the prescription... Start Date: 03/03/20 Status: Ordered metFORMIN 500 mg oral tablet, extended release 1 tablet = 500 mg, By Mouth, Daily, # 30 tablet, 11 Refills, Maintenance, 02/03/20 16:44:00 EST, ERTablet, [facility] [id number], Partial fill upon patient request if the [...] 01/28/20 9:40:00 EST, Route to Pharmacy Electronically, [facility] 3, Partial fill upon patient request if the prescription is for a schedule II o... Start Date: 01/28/20 Status: Ordered omeprazole 20 mg oral enteric coated capsule 1 capsule = 20 mg, By Mouth, 2 times a day, # 60 capsule, 2 Refills, Soft Stop, 07/01/20 9:26:00 EDT, [place], [place] - [id number], Label in Belarusian, 177.9, cm, 04/16/20 13:38:00 EST, Height, 153.2, kg, 03/16/20 12:24:00 EST, Dry Weight Start Date: 07/01/20 Status: Ordered zolpidem 10 mg oral tablet [...] sleep apnea, Com plex sleep apnea(Confirmed) Active BHN/CCA/Dog Walker-Remedios MárquezPqrciul-[phone]/Health custodial, active care coordination(Confirmed) Active 1Impression: 1. Mildly [...]
--- OUTSIDE RECORDS SUMMARY | 2022-08-02 17:42 | XMS_ITS | Continuity of Care Document ---
Author Name Unknown Organization [facility] Address [address] [place] [address]- Care Team Providers Care Order To Delivery Supervisor Name Role Phone Delia ACOSTA, Lamine Covington Primary Care Physician [phone] Encounter [facility] Date(s): 01/28/20 - 02/27/20 [facility] [address] [place] [address]- Allergies, Adverse Reactions, Alerts Substance Reaction Severity [...] 18:13:00 EST, Aerosol, Route to Pharmacy Electronically, [id number], [facility] [place], [place] - [id number], 177, cm... Start Date: 01/02/20 Status: Ordered amLODIPine 5 mg oral tablet 5 mg, 1, tablet, By Mouth, Daily, # 30 tablet, Refills 11, Tot. Refills 11, Maintenance, 02/03/20 16:45:00 EST, Route to Pharmacy Electronically, [facility], [place] - [id number], 178, cm, 01/28/20 6:28:00 EST, Height, 158, [...] 3 Refills, Maintenance, 02/24/20 11:16:00 EST, Tablet, [facility], [place] - [id number], Label in Somali., 178, cm, 02/04/20 15:21:00 EST, Height, 158, kg, 01/07/20 14:48:00 EST, Dry Weight Start Date: 02/24/20 Status: Ordered chlorthalidone 25 mg oral tablet 12.5 mg, 0.5, tablet, By Mouth, Daily, # 15 tablet, Refills 5, Tot. Refills 5, Maintenance, 02/04/20 15:34:00 EST, Route to Pharmacy Electronically, [facility], [place] - [id number], Partial fill upon patient request if the [...] mL, 0 Refills, Maintenance, 02/24/20 11:15:00 EST, [place], [facility], [place] - [id number], 1 sprays Nares, Both 2 times a day, 178, cm, 02/04/20 15:21:00 EST, Height, 158, kg, 01/07/20 14:48:0... Start Date: 02/24/20 Status: Ordered Flovent Diskus 100 mcg/inh inhalation powder 1 puffs, Inhalation, 2 times a day, # 60 each, 0 Refills, Maintenance, 02/24/20 11:16:00 EST, Powder, [facility] [id number], Partial fill upon patient request if the prescription is for a schedule II opioid drug., 1 puffs Inha... Start Date: 02/24/20 Status: Ordered GuaiFENesin DM 20 mg-200 mg/10 mL oral liquid 10 mL, By Mouth, Every 4 hours, PRN as needed for cough, not to exceed 6 doses/day, # 120 mL, 0 Refills, Maintenance, 02/24/20 11:17:00 EST, Liquid, [facility] [id number], Partial fill upon patient request if the prescription... Start Date: 02/24/20 Status: Ordered metFORMIN 500 mg oral tablet, extended release 1 tablet = 500 mg, By Mouth, Daily, # 30 tablet, 11 Refills, Maintenance, 02/03/20 16:44:00 EST, ERTablet, [facility] [id number], Partial fill upon patient request if the [...] 01/28/20 9:40:00 EST, Route to Pharmacy Electronically, [facility] 3, Partial fill upon patient request if the prescription is for a schedule II o... Start Date: 01/28/20 Status: Ordered omeprazole 20 mg oral enteric coated capsule 1 capsule = 20 mg, By Mouth, 2 times a day, # 60 capsule, 2 Refills, Soft Stop, 01/02/20 18:13:00 EST, [facility] [place], [place] - [id number], Dose increased 05/09/19. Label in Somali., 177, cm, 12/30/19 11:37:00 EST, Height, 135, [...] sleep apnea, Com plex sleep apnea(Confirmed) Active BHN/CCA/Rate Analyst-Remedios MárquezYuljcap-[phone]/Health mcfp, active care coordination(Confirmed) Active 1Impression: 1. Mildly [...]
--- OUTSIDE RECORDS SUMMARY | 2022-08-02 17:42 | XMS_ITS | Continuity of Care Document ---
Author Name Unknown Organization [facility] Address [address] [place] [address]- Care Team Providers Care Title I Instructional Assistant Name Role Phone Delia ACOSTA, Lamine Covington Primary Care Physician [phone] Encounter [facility] Date(s): 12/17/20 - 01/16/21 [facility] [address] [place], [place] [address] Allergies, Adverse Reactions, Alerts Substance Reaction [...] 10/23/20 10:46:00 EDT, Route to Pharmacy Electronically, [facility]/pharmacy #[id number], Partial fill upon patient request if the prescription is for a schedule II opioid drug... Start Date: 10/23/20 Status: Ordered chlorthalidone 25 mg oral tablet 12.5 mg, 0.5, tablet, By Mouth, Daily, # 15 tablet, Refills 1, Tot. Refills 1, Maintenance, 10/23/20 10:48:00 EDT, Route to Pharmacy Electronically, [facility]/pharmacy #[id number], Partial fill upon patient request if the prescription is for a schedule II opioid... Start Date: 10/23/20 Status: Ordered Colace sodium 100 mg oral capsule 100 mg, 1, capsule, By Mouth, Daily in AM, # 30 capsule, Refills 1, Tot. Refills 1, Maintenance, 10/23/20 11:49:00 EDT, Route to Pharmacy Electronically, [facility]/pharmacy #[id number], Partial fill upon patientrequest if the prescription is for a schedule II op... Start Date: 10/23/20 Status: Ordered diclofenac 1% topical gel 1 application, Topically, 4 times a day, # 100 Gm, 0 Refills, Maintenance, 11/23/20 13:32:00 EDT, Gel, [facility] [place], [place] - [id number], Partial fill upon patient request if the prescription is for a schedule II opioid drug., 177, cm, 10... Start Date: 11/23/20 Status: Ordered diphenhydrAMINE 50 mg oral tablet = 50 mg, By Mouth, Every 6 hours, PRN Anxiety, # 60 tablet, 1 Refills, Maintenance, 10/23/20 10:48:00 EDT, Tablet, [facility]/pharmacy #[id number], Partial fill upon patient request if the prescription is for a schedule II opioid drug., 177, cm, 10/22/20 21:57:00... Start Date: 10/23/20 Status: Ordered folic acid 1 mg oral tablet 1, tablet, By Mouth, Daily, # 30 tablet, Refills 1, Route to Pharmacy Electronically, [facility], 177, cm, 12/17/20 10:34:00 EDT, Height, 148, kg, 10/16/20 15:12:00 EDT, Dry Weight Start Date: 01/01/21 Status: Ordered gabapentin 600 mg oral tablet 1 tablet, By Mouth, 3 times a day, # 90 tablet, 1 Refills, [facility], 177, cm, 12/17/20 10:34:00 EDT, Height, 148, kg, 10/16/20 15:12:00 EDT, Dry Weight Start Date: 01/01/21 Status: Ordered loratadine 10 mg oral tablet 1, tablet, By Mouth, Daily, # 30 tablet, Refills 1, Route to Pharmacy Electronically, [facility], 177, cm, 12/17/20 10:34:00 EDT, Height, 148, kg, 10/16/20 15:12:00 EDT, Dry Weight Start Date: 01/01/21 Status: Ordered losartan 25 mg oral tablet 25 mg, 1, tablet, By Mouth, Daily, # 30 tablet, Refills 1, Tot. Refills 1, Maintenance, 10/23/20 10:47:00 EDT, Route to Pharmacy Electronically, [facility]/pharmacy #[id number], Partial fill upon patient request if the prescription is for a schedule II opioid drug... Start Date: 10/23/20 Status: Ordered metFORMIN 500 mg oral tablet, extended release 1 tablet = 500 mg, By Mouth, Daily, # 30 tablet, 1 Refills, Maintenance, 10/23/20 10:47:00 EDT, ER Tablet, [facility]/pharmacy #[id number], Partial fill upon patient request if the prescription is for a schedule II opioid drug., 177, cm, 10/22/20 21:57:00 EDT, Hei... Start Date: 10/23/20 Status: Ordered MiraLax oral powder for reconstitution = 17 Gm, By Mouth, Daily, # 255 Gm, 1 Refills, Maintenance, 10/23/20 10:49:00 EDT, [facility]/pharmacy #[id number], Partial fill upon patient request if the prescription is for a schedule II opioid drug., 17 Gm By Mouth Daily, 177, cm, 10/22/20 21:57:00 EDT, Heigh... Start Date: 10/23/20 Status: Ordered OXcarbazepine 300 mg oral tablet 300 mg, 1, tablet, By Mouth, 2 times a day, # 60 tablet, Refills 1, Tot. Refills 1, Maintenance, 10/23/20 10:48:00 EDT, Route to Pharmacy Electronically, [facility]/pharmacy #[id number], Partial fill upon patientrequest if the [...] 10/23/20 10:51:00 EDT, Route to Pharmacy Electronically, [facility]/pharmacy #[id number], Partial fill upon patient request if the prescription is for a schedule II opioid drug.... Start Date: 10/23/20 Status: Ordered risperiDONE 3 mg oral tablet 3 mg, 1, tablet, By Mouth, Daily at bedtime, # 30 tablet, Refills 1, Tot. Refills 1, Maintenance, 10/23/20 10:52:00 EDT, Route to Pharmacy Electronically, [facility]/pharmacy #[id number], Partial fill upon patient request if the prescription is for a schedule II o... Start Date: 10/23/20 Status: Ordered Tylenol 8 HR Arthritis Pain 650 mg oral tablet, extended release 1 tablet = 650 mg, By Mouth, Every 8 hours, PRN as needed for pain, # 50 tablet, 0 Refills, Maintenance, 12/17/20 15:15:00 EDT, ER Tablet, [facility] - [place], [place] - [id number], Partial fillupon patient request if the prescription [...] sleep apnea, Com plex sleep apnea(Confirmed) Active BHN/CCA/Air Sampling And Monitoring-Remedios MárquezMfxeizx-[phone]/Health long term, active care coordination(Confirmed) Active Treatment-emergent central s [...]
--- OUTSIDE RECORDS SUMMARY | 2022-08-02 17:42 | XMS_ITS | Continuity of Care Document ---
Author Name Unknown Organization [facility] Address [address] [place] [address]- Care Team Providers Care Emergency Medical Technician Name Role Phone Lamine Lin MD Primary Care Physician Encounter [facility] R [id number] Date(s): 04/07/22 - 07/06/22 [facility] [address] [place] [address]- Attending Physician: Lamine Lin MD Admitting Physician: Lamine Lin MD Referring Physician: Lamine Lin MD Allergies, Adverse Reactions, Alerts Substance Reaction Severity Status lisinopril dry cough Active Dust Mild Active Milk Products Nausea and vomiting Persistent Moderate Active cloNIDine confusion Active Immunizations Given and Recorded Vaccine Date Status Refusal Reason [id number] 12y+ bivalent booster vax 02/07/22 Given influenza virus vaccine, inactivated 02/07/22 Give n influenza virus vaccine, inactivated 03/19/21 Give n influenza virus vaccine, inactivated 12/30/19 Give n influenza virus vaccine, inactivated 1 10/11/11 Gi annia influenza virus vaccine, inactivated 2 12/30/10 Gi anina SARS-CoV-2 (COVID-19) mRNA BNT-162b2 vac 09/10/20 Given SARS-CoV-2 (COVID-19) mRNA BNT-162b2 vac 08/20/20 Given tetanus-diphtheria toxoids (Td) 12/30/19 Given pneumococcal 23-valent vaccine 07/19/11 Given tetanus/diphtheria/pertussis, acel(Tdap) 08/11/09 Given 1Admin Note: VIS 08/31 2Admin Note: flulaval vis given vis date 09/14/2010 Medications docusate sodium 100 mg oral capsule 1 capsule, By Mouth, Daily, # 30 each, 1 Refills, Maintenance, 06/06/22 16:49:00 EDT, [facility] [id number], 178, cm, 06/06/22 16:31:00 EDT, Height, 101.4, kg, 01/12/22 14:14:00 EST, Dry Weight Start Date: 06/06/22 Status: Ordered ferrous fumarate 324 mg oral tablet 1 tablet = 324 mg, By Mouth, Every 48 hours, # 15 tablet, 5 Refills, Maintenance, 06/06/22 16:37:00EDT, [facility] [id number], Partial fill upon patient request if the prescription is for a schedule II opioid drug., 178, cm,... Start Date: 06/06/22 Status: Ordered folic acid 1 mg oral tablet 1, tablet, By Mouth, Daily, # 30 tablet, Refills 5, Tot. Refills 5, Maintenance, 06/06/22 16:49:00 EDT, Route to Pharmacy Electronically, [facility] [id number], 178, cm, 06/06/22 16:31:00 EDT, Height, 101.4, kg, 01/12/22 14:14... Start Date: 06/06/22 Status: Ordered gabapentin 600 mg oral tablet 1 tablet = 600 mg, By Mouth, 3 times a day, # 90 tablet, 5 Refills, Maintenance, 06/06/22 16:41:00 EDT, Tablet, [facility] [id number], Partial fill upon patient request if the prescription is for a schedule II opioid drug., 17... Start Date: 06/06/22 Stop Date: 12/03/22 Status: Ordered loratadine 10 mg oral tablet 10 mg, 1, tablet, By Mouth, Daily, # 30 tablet, Refills 3, Tot. Refills 3, Maintenance, 06/06/22 16:41:00 EDT, Route to Pharmacy Electronically, [facility] [id number], Partial fill upon patient request if the prescription is f... Start Date: 06/06/22 Stop Date: 10/04/22 Status: Ordered MiraLax oral powder for reconstitution = 17 Gm, By Mouth, Daily, dissolve in water before taking, # 527 Gm, 1 Refills, Maintenance, 06/06/22 16:49:00 EDT, REC Powder, [place], [place] - [id number], Partial fill upon patient request if the prescription is for a schedule II... Start Date: 06/06/22 Status: Ordered multivitamin Multiple Vitamins oral tablet 1 tablet, By Mouth, Daily, # 90 tablet, 3 Refills, Maintenance, 06/06/22 16:40:00 EDT, [facility] [id number], Partial fill upon patient request if the [...] sleep apnea, Complex sleep apnea Confirmed Active BHN/CCA/Municipal Bond Trader-Tia Jarrett [phone]/Health correction, active care coordination Confirmed Active Treatment-emergent central [...] Team Personnel Name: Ela Beltrán RN [facility] AMB Nurse Member Role: Primary Care Nurse Name: Alaina Gillette RN [facility] RN Member Role: Primary Care Nurse Name: Kristyn Tapia RN Position: [facility] SN RN Member Role: Primary Care Nurse Name: Lorna Gentile NP Position: [facility] Associate Professional Member Role: Primary Care Nurse Address: Address: [address] [place] [address] Name: Venus Jaramillo RN [facility] RN Member Role: Primary Care Nurse Name: Flor Donnelly RN [facility] RN Member Role: Primary Care Nurse Name: Ruiz Matson RN Position[facility] RN Member Role: Primary Care Nurse Name: Belle Ames RN Position[facility] RN Member Role: Primary Care Nurse Name: Alex Rios RN Position[facility] RN Member Role: Primary Care Nurse Name: Mary TITUS RN, Daniel Position[facility] RN Member Role: Primary Care Nurse Name: Jordi Carter MD Position[facility] Renal MD Member Role: Lifetime Consulting Physician Address: Address: [address] [facility] [place] [address]- [place] Name: Loren Hamlin RN [facility] RN Member Role: Primary Care Nurse Name: Malia Wise RN Position[facility] RN Member Role: Primary Care Nurse Name: Jessica Dia RN Position[facility] RN Member Role: Primary Care Nurse Name: Lamine Lin MD Position[facility] Primary Care Physician Member Role: PCP Address: Address: [address] [facility] [place] [address]- [place] Name: Rose Abraham RN Position: [facility] Hospital Dental Hygienist Mobile Coordinator Member Role: Primary Care Nurse Name: Vinod Botello MD Position[facility] Psychiatry MD Member Role: Lifetime Consulting Physician Address: Address: [address] [place] [address]- [place] Care Team Related Persons Name: MALIA HARRIS Name: KATHLEEN JACQUES Address: home [address] [place] [address] Name: VIRGIL PARKS Address: home [address] [place] [address] Name: MICHAELA MONTENEGRO Address: home UNKNOWN Name: MIGUEL PUENTES Address: home [address] [place] [address]
--- OUTSIDE RECORDS SUMMARY | 2022-08-02 17:42 | XMS_ITS | Continuity of Care Document ---
Author Name Unknown Organization [facility] Address [address] [place] [address]- Care Team Providers Care Sales Representative Facility Services Name Role Phone Lamine Lin MD Primary Care Physician Encounter [facility] [place] Date(s): 02/08/22 - 05/11/22 [facility] [address] [place] [address]- Attending Physician: Lamine Lin MD Admitting Physician: Lamine Lin MD Allergies, Adverse Reactions, Alerts Substance Reaction Severity Status lisinopril dry cough Active Dust Mild Active Milk Products Nausea and vomiting Persistent Moderate Active cloNIDine confusion Active Immunizations Given and Recorded Vaccine Date Status Refusal Reason [id number] 12y+ bivalent booster vax 02/07/22 Given influenza [...] 09/14/2010 Medications benztropine 1 mg oral tablet Refills 0, Maintenance, 02/07/22 12:21:00 EST, Partial fill upon patient request if the prescription is for a schedule II opioid drug. Start Date: 02/07/22 Status: Ordered buPROPion 150 mg/24 hours (XL) oral tablet, extended release 0 Refills, Maintenance, 02/07/22 12:20:00 EST, Partial fill upon patient request if the prescription is for a schedule II opioid drug. Start Date: 02/07/22 Status: Ordered desvenlafaxine 25 mg oral tablet, extended release TAKE 2 TABLETS (50MG total ) BY MOUTH ONCE DAILY FOR 7 DAYS Start Date: 02/07/22 Status: Ordered docusate sodium 100 mg oral capsule 1 capsule, By Mouth, Daily, # 30 each, 1 Refills, Maintenance, 12/06/21 10:45:00 EDT, [facility] [id number], 177.8, cm, 12/06/21 10:26:00 EDT, Height, 136.078, kg, 09/02/21 19:37:00 EDT, Dry Weight Start Date: 12/06/21 Status: Ordered folic acid 1 mg oral tablet 1, tablet, By Mouth, Daily, # 30 tablet, Refills 5, Maintenance, 01/18/22 8:09:00 EST, Route to Pharmacy Electronically, [facility], 178, cm, 01/17/22 23:35:00 EST, Height, 101.4, kg, 01/12/22 14:14:00 EST, Dry Weight Start Date: 01/18/22 Status: Ordered gabapentin 600 mg oral tablet 1 tablet = 600 mg, By Mouth, 3 times a day, # 90 tablet, 5 Refills, Maintenance, 12/06/21 10:44:00 EDT, Tablet, [facility] [id number], Partial fill upon patient request if the prescription is for a schedule II opioid drug., 17... Start Date: 12/06/21 Stop Date: 06/04/22 Status: Ordered hydrOXYzine pamoate 50 mg oral capsule = 50 mg, By Mouth, Every 6 hours, PRN Anxiety, # 60 capsule, 0 Refills, Maintenance, 12/06/21 10:45:00 EDT, Capsule, [facility] [id number], Partial fill upon patient request if the prescription is for a schedule II opioid drug... Start Date: 12/06/21 Status: Ordered loratadine 10 mg oral tablet 10 mg, 1, tablet, By Mouth, Daily, # 30 tablet, Refills 3, Tot. Refills 3, Maintenance, 12/06/21 10:45:00 EDT, Route to Pharmacy Electronically, [facility] [id number], Partial fill upon patient request if the prescription is f... Start Date: 12/06/21 Stop Date: 04/05/22 Status: Ordered MiraLax oral powder for reconstitution = 17 Gm, By Mouth, Daily, dissolve in water before taking, # 527 Gm, 1 Refills, Maintenance, 02/07/22 10:30:00 EST, REC Powder, [place], [place] - [id number], Partial fill upon patient request if the prescription is for a schedule II... Start Date: 02/07/22 Status: Ordered paliperidone 6 mg oral tablet, extended release 1 tablet = 6 mg, By Mouth, Daily in AM, # 30 tablet, 0 Refills, Maintenance, 02/07/22 12:19:00 EST,ER Tablet, Partial fill upon patient request if the prescription is for a schedule II opioid drug. Start Date: 02/07/22 Status: Ordered pantoprazole 40 mg oral delayed release tablet See Instructions, TAKE 1 TABLET BY MOUTH DAILY, # 30 tablet, 2 Refills, Maintenance, 04/26/22 9:32:00 EST, 178, cm, 02/07/22 9:55:00 EST, Height, 101.4, kg, 01/12/22 14:14:00 EST, Dry Weight Start Date: 04/26/22 Status: Ordered risperiDONE 2 mg oral tablet TAKE 1 TABLET BY MOUTH two (2) times a day NEEDED FOR increased AGITATION / ANXIETY / paranoia Start Date: 02/07/22 Status: Ordered traZODone 100 mg oral tablet TAKE 1 TABLET BY MOUTH ONCE DAILY AT BEDTIME FOR 7 DAYS Start Date: 02/07/22 Status: Ordered Problem List Condition Confirmation Course [...] sleep apnea, Complex sleep apnea Confirmed Active BHN/CCA/Hat Finisher-Tia Jarrett [phone]/[facility], active care coordination Confirmed Active Treatment-emergent central [...] Team Personnel Name: Ela Beltrán RN Position: [facility] AMB Nurse Member Role: Primary Care Nurse Name: Alaina Gillette RN Position: [facility] RN Member Role: Primary Care Nurse Name: Lorna Gentile NP Position: [facility] Associate Professional Member Role: Primary Care Nurse Address: Address: [address] [place] [id number]- Name: Venus Jaramillo RN Position: [facility] RN Member Role: Primary Care Nurse Name: Flor Donnelly RN Position: [facility] RN Member Role: Primary Care Nurse Name: Ruiz Matson RN Position: [facility] RN Member Role: Primary Care Nurse Name: Belle Ames RN Position: [facility] RN Member Role: Primary Care Nurse Name: Alex Rios RN Position: [facility] RN Member Role: Primary Care Nurse Name: Daniel Hernandez III, RN Position: [facility] RN Member Role: Primary Care Nurse Name: Jordi Carter MD Position: [facility] Renal MD Member Role: Lifetime Consulting Physician Address: Address: [address] [facility] [place] [address]- [place] Name: Loren Hamlin RN Position: [facility] RN Member Role: Primary Care Nurse Name: Kenzie Martínez RN, Malia Position: [facility] RN Member Role: Primary Care Nurse Name: Jessica Dia RN Position: [facility] RN Member Role: Primary Care Nurse Name: Kristyn Salcido RN Position: [facility] RN Member Role: Primary Care Nurse Name: Delia ACOSTA, Lamine Covington Position: [facility] Primary Care Physician Member Role: PCP Address: Address: [address] [place] [address]- Name: Rose Abraham RN Position: [facility] Hospital Meat Carrier Member Role: Primary Care Nurse Name: Ayan ACOSTA, Vinod Position: [facility] Psychiatry MD Member Role: Lifetime Consulting Physician Address: Address: [address] [place] [address]- Care Team Related Persons Name: MALIA HARRIS Name: KATHLEEN JACQUES Address: [address] [place] [address] Name: VIRGIL PARKS Address: home [address] [place] [address] Name: MICHAELA MONTENEGRO Address: home UNKNOWN Name: MIGUEL PUENTES Address: home [address] [place] [address]
--- OUTSIDE RECORDS SUMMARY | 2022-08-02 17:42 | XMS_ITS | Continuity of Care Document ---
Author Name Unknown Organization [facility] Address [address] [place] [address]- Care Team Providers Care Grain Elevator Motor Starter Name Role Phone Delia ACOSTA, Lamine Covington Primary Care Physician [phone] Encounter [facility] Date(s): 10/17/19 - 12/05/19 [facility] [address] [place] [address]- [facility] Attending Physician: Lamine Lin MD Admitting Physician: [...] 15:33:00 EDT, Aerosol, Route to Pharmacy Electronically, [id number], [facility] [place], [place] - [id number], 177, cm... Start Date: 10/15/19 Status: Ordered amLODIPine 5 mg oral tablet 5 mg, 1, tablet, By Mouth, Daily, # 30 tablet, Refills 11, Tot. Refills 11, Maintenance, 05/09/19 8:48:00 EDT, Route to Pharmacy Electronically, [place], [place] -, 177, cm, 04/02/2009:47:00 EST, Height, 135, kg, 03/30/18 19:13:00 ES... Start Date: 05/09/19 Status: Ordered cetirizine 10 mg oral tablet 1 tablet = 10 mg, By Mouth, Daily, # 30 tablet, 1 Refills, Maintenance, 11/08/19 14:15:00 EDT, Tablet, [place], [place] - [id number], Label in Iranian., 177, cm, 10/15/19 14:42:00 EDT, Height, 135, kg, 03/30/18 19:13:00 EST, Dry Weight Start Date: 11/08/19 Status: Ordered Coricidin HBP Chest Congestion & Cough 10 mg-200 mg oral capsule 1 capsule, By Mouth, Every 4 hours, PRN for cough, not to exceed 6 doses/day. Iranian label, # 60 capsule, 0 Refills, Maintenance, 10/15/19 15:34:00 EDT, Capsule, [place], [place] - [id number], 1 capsule By Mouth Every 4 hours,PRN:for... [...] Gm, 3 Refills, Maintenance, 08/28/19 8:53:00 EDT, [place], [place], [place] -, 2 sprays Nares, Both Daily [...] 5 Refills, Soft Stop, 05/09/19 8:49:00 EDT, [place], [place] -, 177, cm, 04/02/19 10:47:00 EST, Height, 135, kg, 03/30/18 19:13:00 EST, Dry Weight Start Date: 05/09/19 Status: Ordered Metoprolol Tartrate 25 mg oral tablet See Instructions, TAKE 1 & 1/2 TABLETS BY MOUTH 2 (two) times a day, # 90 tablet, 3 Refills, Soft Stop, 05/09/19 8:49:00 EDT, [facility], 177, cm, 04/02/19 10:47:00 EST, Height, 135, kg, 03/30/18 19:13:00 EST, Dry Weight Start Date: 05/09/19 Status: Ordered omeprazole 20 mg oral enteric coated capsule 1 capsule = 20 mg, By Mouth, 2 times a day, # 60 capsule, 3 Refills, Soft Stop, 07/09/19 10:02:00 EDT, [place], [place] -, Dose increased 05/09/19. Label in Iranian., 177, cm, 04/02/19 10:47:00 EST, Height, 135, kg, 03/30/18 19:13:00... Start Date: 07/09/19 Status: Ordered simvastatin 10 mg oral tablet See Instructions, TAKE ONE TABLET BY MOUTH DAILY AT BEDTIME, # 30 tablet, Refills 11, Tot. Refills 11, Soft Stop, 05/09/19 8:49:00 EDT, Instructions Replace Required Details, Route to Pharmacy Electronically, [place], [place] -, 177,... Start Date: 05/09/19 Status: [...]
--- OUTSIDE RECORDS SUMMARY | 2022-08-02 17:42 | XMS_ITS | Continuity of Care Document ---
Author Name Unknown Organization [facility] Address [address] [place] [address]- Care Team Providers Care Professor Of Environmental Studies Name Role Phone Delia ACOSTA, Lamine Covington Primary Care Physician [place] [facility] [place] 07/08[place]21 - 08/07/21 [facility] [address] [place] [address]- Allergies, Adverse Reactions, Alerts Substance Reaction Severity [...] By Mouth, 2 times a day, # 180 tablet, Refills 5, Tot. Refills 5, Maintenance, 07/29/21 15:42:00 EDT, Route to Pharmacy Electronically, [facility] [place], [place] - [id number], Partial fill upon patient request if the prescript... Start Date: 07/29/21 Status: Ordered chlorthalidone 25 mg oral tablet 12.5 mg, 0.5, tablet, By Mouth, Daily, # 15 tablet, Refills 5, Tot. Refills 5, Maintenance, 07/29/21 15:48:00 EDT, Route to Pharmacy Electronically, [facility] [id number], Partial fill upon patient request if the prescription... Start Date: 07/29/21 Status: Ordered folic acid 1 mg oral tablet 1 mg, 1, tablet, By Mouth, Daily, # 30 tablet, Refills 5, Tot. Refills 5, Maintenance, 07/29/21 15:49:00 EDT, Route to Pharmacy Electronically, [facility] [id number], Partialfill upon patient request if the prescription is fo... Start Date: 07/29/21 Status: Ordered gabapentin 600 mg oral tablet 1 tablet = 600 mg, By Mouth, 3 times a day, # 90 tablet, 5 Refills, Maintenance, 07/29/21 15:45:00 EDT, Tablet, [facility] [id number], Partial fill upon patient request if the prescription is for a schedule II opioid drug., 17... Start Date: 07/29/21 Stop Date: 01/25/22 Status: Ordered haloperidol 5 mg oral tablet 5 mg, 1, tablet, By Mouth, Daily, # 90 tablet, Refills 3, Tot. Refills 3, Maintenance, 07/29/21 15:48:00 EDT, Route to Pharmacy Electronically, [facility] [id number], Partialfill upon patient request if the prescription is fo... Start Date: 07/29/21 Status: Ordered hydrOXYzine pamoate 50 mg oral capsule = 50 mg, By Mouth, Every 6 hours, PRN Anxiety, # 60 capsule, 5 Refills, Maintenance, 07/29/21 15:43:00 EDT, Capsule, [facility] [id number], Partial fill upon patient request if the prescription is for a schedule II opioid drug... Start Date: 07/29/21 Status: Ordered loratadine 10 mg oral tablet 10 mg, 1, tablet, By Mouth, Daily, # 30 tablet, Refills 1, Tot. Refills 1, Maintenance, 07/29/21 15:46:00 EDT, Route to Pharmacy Electronically, [facility] [id number], Partial fill upon patient request if the prescription is f... Start Date: 07/29/21 Stop Date: 09/27/21 Status: Ordered MetFORMIN (Eqv-Glucophage XR) 500 mg oral tablet, extended release 1 tablet, By Mouth, Daily, for 30 days, # 30 tablet, 5 Refills, Physician Stop 01/25/22 15:46:00 EST, 07/29/21 15:46:00 EDT, [facility] [id number], 178, cm, 07/29/21 8:49:00 EDT, Height, 140, kg, 05/17/21 19:30:00 EDT, Dry Weight Start Date: 07/29/21 Stop Date: 01/25/22 Status: Ordered Nicotine 2 mg gum = 2 mg, Chew, Every 2 hours, PRN Other, cigarette craving, # 40 each, 0 Refills, Maintenance, 07/29/21 15:44:00 EDT, Gum, [facility] [id number], Partial fill upon patient request if the prescription is for a schedule II opioid... Start Date: 07/29/21 Status: Ordered omeprazole 40 mg oral enteric coated capsule 1 capsule = 40 mg, By Mouth, Daily, # 90 capsule, 4 Refills, Maintenance, 07/29/21 15:47:00 EDT, ECCapsule, [facility] [id number], Partial fill upon patient request if the prescription is for a schedule II opioid drug., 178,... Start Date: 07/29/21 Status: Ordered OXcarbazepine 300 mg oral tablet 300 mg, 1, tablet, By Mouth, 2 times a day, # 60 tablet, Refills 5, Tot. Refills 5, Maintenance, 07/29/21 15:44:00 EDT, Route to Pharmacy Electronically, [facility] [id number], Partial fill upon patient request if the prescrip... Start Date: 07/29/21 Status: Ordered RisperDAL 2 mg oral tablet 2 mg, 1, tablet, By Mouth, Daily in AM, # 30 tablet, Refills 5, Tot. Refills 5, Maintenance, 07/29/21 15:50:00 EDT, Route to Pharmacy Electronically, [facility] [id number], Partial fill upon patient request if the prescription... Start Date: 07/29/21 Status: Ordered risperiDONE 3 mg oral tablet 3 mg, 1, tablet, By Mouth, Daily at bedtime, # 30 tablet, Refills 5, Tot. Refills 5, Maintenance, 07/29/21 15:45:00 EDT, Route to Pharmacy Electronically, [facility] [id number], Partial fill upon patient request if the prescri... Start Date: 07/29/21 Stop Date: 01/25/22 Status: Ordered traZODone 50 mg oral tablet 50 mg, 1, tablet, By Mouth, Daily at bedtime, # 30 tablet, Refills 5, Tot. Refills 5, Maintenance, 07/29/21 15:43:00 EDT, Route to Pharmacy Electronically, [facility] [id number], Partial fill upon patient request if the prescr... Start Date: 07/29/21 Status: Ordered Problem List Condition Effective Dates Status Health Status Inform ant Diabetes mellitus(Confirmed) Active Esophageal reflux (GERD)(Confirmed) Active Gastric polyp(Confirmed) 1 Active Gynecomastia(Confirmed) Active Hypercholesterolemia(Confirmed) Active Hypertension(Confirmed) Active Sleep related hypoxia(Confirmed) Active Eder(Confirmed) 2012 Active Morbid obesity with BMI of 4 5.0-49.9, adult(Confirmed) Active NAFLD (nonalcoholic fatty li evelia disease)(Confirmed) 2 Active Obstructive sleep apnea, Com plex sleep apnea(Confirmed) Active N/CCA/City Alderman-Remedios [phone]/Health intermediate, active care coordination(Confirmed) Active Severe obesity(Confirmed) [...]
--- OUTSIDE RECORDS SUMMARY | 2022-08-02 17:42 | XMS_ITS | Continuity of Care Document ---
Author Name Unknown Organization [facility] Address [address] [place] [address]- Care Team Providers Care Insurance Operations Rep Name Role Phone Delia ACOSTA, Lamine Covington Primary Care Physician Encounter [facility] Date(s): 10/21/20 - 01/08/21 [facility] [address] [place] [address]- Attending Physician: Holden Nunez MD Admitting Physician: Holden Nunez MD Allergies, Adverse Reactions, Alerts Substance Reaction [...] 10/23/20 10:46:00 EDT, Route to Pharmacy Electronically, [facility]/pharmacy #[id number], Partial fill upon patient request if the prescription is for a schedule II opioid drug... Start Date: 10/23/20 Status: Ordered chlorthalidone 25 mg oral tablet 12.5 mg, 0.5, tablet, By Mouth, Daily, # 15 tablet, Refills 1, Tot. Refills 1, Maintenance, 10/23/20 10:48:00 EDT, Route to Pharmacy Electronically, [facility]/pharmacy #[id number], Partial fill upon patient request if the prescription is for a schedule II opioid... Start Date: 10/23/20 Status: Ordered Colace sodium 100 mg oral capsule 100 mg, 1, capsule, By Mouth, Daily in AM, # 30 capsule, Refills 1, Tot. Refills 1, Maintenance, 10/23/20 11:49:00 EDT, Route to Pharmacy Electronically, [facility]/pharmacy #[id number], Partial fill upon patientrequest if the prescription is for a schedule II op... Start Date: 10/23/20 Status: Ordered diclofenac 1% topical gel 1 application, Topically, 4 times a day, # 100 Gm, 0 Refills, Maintenance, 11/23/20 13:32:00 EDT, Gel, [facility] [place], [place] - [id number], Partial fill upon patient request if the prescription is for a schedule II opioid drug., 177, cm, 10... Start Date: 11/23/20 Status: Ordered diphenhydrAMINE 50 mg oral tablet = 50 mg, By Mouth, Every 6 hours, PRN Anxiety, # 60 tablet, 1 Refills, Maintenance, 10/23/20 10:48:00 EDT, Tablet, [facility]/pharmacy #[id number], Partial fill upon patient request if the prescription is for a schedule II opioid drug., 177, cm, 10/22/20 21:57:00... Start Date: 10/23/20 Status: Ordered folic acid 1 mg oral tablet 1, tablet, By Mouth, Daily, # 30 tablet, Refills 1, Route to Pharmacy Electronically, [facility], 177, cm, 12/17/20 10:34:00 EDT, Height, 148, kg, 10/16/20 15:12:00 EDT, Dry Weight Start Date: 01/01/21 Status: Ordered gabapentin 600 mg oral tablet 1 tablet, By Mouth, 3 times a day, # 90 tablet, 1 Refills, [facility], 177, cm, 12/17/20 10:34:00 EDT, Height, 148, kg, 10/16/20 15:12:00 EDT, Dry Weight Start Date: 01/01/21 Status: Ordered loratadine 10 mg oral tablet 1, tablet, By Mouth, Daily, # 30 tablet, Refills 1, Route to Pharmacy Electronically, [facility], 177, cm, 12/17/20 10:34:00 EDT, Height, 148, kg, 10/16/20 15:12:00 EDT, Dry Weight Start Date: 01/01/21 Status: Ordered losartan 25 mg oral tablet 25 mg, 1, tablet, By Mouth, Daily, # 30 tablet, Refills 1, Tot. Refills 1, Maintenance, 10/23/20 10:47:00 EDT, Route to Pharmacy Electronically, [facility]/pharmacy #[id number], Partial fill upon patient request if the prescription is for a schedule II opioid drug... Start Date: 10/23/20 Status: Ordered metFORMIN 500 mg oral tablet, extended release 1 tablet = 500 mg, By Mouth, Daily, # 30 tablet, 1 Refills, Maintenance, 10/23/20 10:47:00 EDT, ER Tablet, [facility]/pharmacy #[id number], Partial fill upon patient request if the prescription is for a schedule II opioid drug., 177, cm, 10/22/20 21:57:00 EDT, Hei... Start Date: 10/23/20 Status: Ordered MiraLax oral powder for reconstitution = 17 Gm, By Mouth, Daily, # 255 Gm, 1 Refills, Maintenance, 10/23/20 10:49:00 EDT, [facility]/pharmacy #[id number], Partial fill upon patient request [...] 10/23/20 10:48:00 EDT, Route to Pharmacy Electronically, [facility]/pharmacy #[id number], Partial fill upon patientrequest if [...] 10/23/20 10:51:00 EDT, Route to Pharmacy Electronically, [facility]/pharmacy #[id number], Partial fill upon patient request if the prescription is for a schedule II opioid drug.... Start Date: 10/23/20 Status: Ordered risperiDONE 3 mg oral tablet 3 mg, 1, tablet, By Mouth, Daily at bedtime, # 30 tablet, Refills 1, Tot. Refills 1, Maintenance, 10/23/20 10:52:00 EDT, Route to Pharmacy Electronically, [facility]/pharmacy #[id number], Partial fill upon patient request if the prescription is for a schedule II o... Start Date: 10/23/20 Status: Ordered Tylenol 8 HR Arthritis Pain 650 mg oral tablet, extended release 1 tablet = 650 mg, By Mouth, Every 8 hours, PRN as needed for pain, # 50 tablet, 0 Refills, Maintenance, 12/17/20 15:15:00 EDT, ER Tablet, [place], [place] - [id number], Partial fillupon patient request if the prescription [...] sleep apnea, Com plex sleep apnea(Confirmed) Active BHN/CCA/Credit Card Control Clerk-Remedios [id number]-[phone]/Health shelter, active care coordination(Confirmed) Active Treatment-emergent central s [...]
--- OUTSIDE RECORDS SUMMARY | 2022-08-02 17:42 | XMS_ITS | Continuity of Care Document ---
Author Name Unknown Organization [facility] ter Address [address] [place] [address]- Care Team Providers Care Family Service Center Director Name Role Phone Delia ACOSTA, Lamine Covington Primary Care Physician [phone] Encounter [facility] Date(s): 04/13/20 - 05/23/[address] [address] Attending Physician: Lamine Lni MD Admitting Physician: Lamine Lin MD Referring [...] 18:13:00 EST, Aerosol, Route to Pharmacy Electronically, [id number], [place], [place] - [id number], 177, cm... Start Date: 01/02/20 Status: Ordered amLODIPine 5 mg oral tablet 5 mg, 1, tablet, By Mouth, Daily, # 30 tablet, Refills 11, Tot. Refills 11, Maintenance, 02/03/20 16:45:00 EST, Route to Pharmacy Electronically, [facility], [facility] [id number], 178, cm, 01/28/20 6:28:00 EST, Height, 158, [...] 3 Refills, Maintenance, 02/24/20 11:16:00 EST, Tablet, [facility], [facility] [id number], Label in Namibian., 178, cm, 02/04/20 15:21:00 EST, Height, 158, kg, 01/07/20 14:48:00 EST, Dry Weight Start Date: 02/24/20 Status: Ordered chlorthalidone 25 mg oral tablet 12.5 mg, 0.5, tablet, By Mouth, Daily, # 15 tablet, Refills 5, Tot. Refills 5, Maintenance, 02/04/20 15:34:00 EST, Route to Pharmacy Electronically, [facility], [facility] [id number], Partial fill upon patient request if the [...] mL, 0 Refills, Maintenance, 02/24/20 11:15:00 EST, [place], [facility], [facility] [id number], 1 sprays Nares, Both 2 times a day, 178, cm, 02/04/20 15:21:00 EST, Height, 158, kg, 01/07/20 14:48:0... Start Date: 02/24/20 Status: Ordered Flovent Diskus 100 mcg/inh inhalation powder 1 puffs, Inhalation, 2 times a day, # 60 each, 0 Refills, Maintenance, 03/03/20 10:49:00 EST, Powder, [facility], [facility] [id number], Partial fill upon patient request if the prescription is for a schedule II opioid drug., 1 puffs Inha... Start Date: 03/03/20 Status: Ordered GuaiFENesin DM 20 mg-200 mg/10 mL oral liquid 10 mL, By Mouth, Every 4 hours, PRN as needed for cough, not to exceed 6 doses/day, # 120 mL, 0 Refills, Maintenance, 03/03/20 11:05:00 EST, Liquid, [facility] [id number], Partial fill upon patient request if the prescription... Start Date: 03/03/20 Status: Ordered metFORMIN 500 mg oral tablet, extended release 1 tablet = 500 mg, By Mouth, Daily, # 30 tablet, 11 Refills, Maintenance, 02/03/20 16:44:00 EST, ERTablet, [place], [place] - [id number], Partial fill upon patient request if the [...] 01/28/20 9:40:00 EST, Route to Pharmacy Electronically, [facility], Partial fill upon patient request if the prescription is for a schedule II o... Start Date: 01/28/20 Status: Ordered omeprazole 20 mg oral enteric coated capsule 1 capsule = 20 mg, By Mouth, 2 times a day, # 60 capsule, 2 Refills, Soft Stop, 04/01/20 14:52:00 EST, [facility] [place] - [id number], Dose increased 05/09/19. Label in [place]ibian., 178, cm, 03/16/20 12:24:00 EST, Height, 153.2, [...] sleep apnea, Com plex sleep apnea(Confirmed) Active BHN/CCA/Litigation Legal Secretary-Remedios [phone]/Health half-way, active care coordination(Confirmed) Active 1Impression: 1. Mildly [...]
--- OUTSIDE RECORDS SUMMARY | 2022-08-02 17:42 | XMS_ITS | Continuity of Care Document ---
Author Name Unknown Organization [facility] Address [address] [place] [id number]- Care Team Providers Care Outdoor Pursuits Instructor Name Role Phone Delia ACOSTA, Lamine [place] Primary Care Physician Encounter [facility] [place] Date(s): 07/30/19 - 08/06/19 [facility] [address] [place] [address]- [facility] Attending Physician: Yogesh ACOSTA, Opal Maldonado Admitting Physician: Opal Zuñiga MD Allergies, Adverse Reactions, Alerts Substance Reaction [...] 05/09/19 8:48:00 EDT, Route to Pharmacy Electronically, [facility] - [place], [place] -, 177, cm, 04/02/2009:47:00 EST, Height, [...] Gm, 3 Refills, Maintenance, 05/09/19 8:47:00 EDT, [place], [place], [place] -, 2 sprays Nares, Both Daily in AM, 177, cm, 04/02/19 10:47:00 EST, Height, 135, kg, 03/30/18 19:13:00 EST, Dry Weight Start Date: 05/09/19 Status: Ordered metFORMIN 500 mg oral tablet, extended release See Instructions, TAKE ONE TABLET BY MOUTH DAILY, # 30 tablet, 5 Refills, Soft Stop, 05/09/19 8:49:00 EDT, [place], [place] -, 177, cm, 04/02/19 10:47:00 EST, Height, 135, kg, 03/30/18 19:13:00 EST, Dry Weight Start Date: 05/09/19 Status: Ordered Metoprolol Tartrate 25 mg oral tablet See Instructions, TAKE 1 & 1/2 TABLETS BY MOUTH 2 (two) times a day, # 90 tablet, 3 Refills, Soft Stop, 05/09/19 8:49:00 EDT, [place], [place] -, 177, cm, 04/02/19 10:47:00 EST, Height, 135, kg, 03/30/18 19:13:00 EST, Dry Weight Start Date: 05/09/19 Status: Ordered omeprazole 20 mg oral enteric coated capsule 1 capsule = 20 mg, By Mouth, 2 times a day, # 60 capsule, 3 Refills, Soft Stop, 07/09/19 10:02:00 EDT, [place], [place] -, Dose increased 05/09/19. Label in Azeri., 177, cm, 04/02/19 10:47:00 EST, Height, 135, kg, 03/30/18 19:13:00... Start Date: 07/09/19 Status: Ordered simvastatin 10 mg oral tablet See Instructions, TAKE ONE TABLET BY MOUTH DAILY AT BEDTIME, # 30 tablet, Refills 11, Tot. Refills 11, Soft Stop, 05/09/19 8:49:00 EDT, Instructions Replace Required Details, Route to Pharmacy Electronically, [facility] - [place], [place] -, 177,... Start Date: 05/09/19 Status: [...]
--- OUTSIDE RECORDS SUMMARY | 2022-08-02 17:42 | XMS_ITS | Continuity of Care Document ---
Author Name Unknown Organization [facility] Address [address] [place] [address]- Care Team Providers Care Radioisotope Technologist Name Role Phone Lamine Lin MD Primary Care Physician [place] [facility] [place]s): 04/19/21 - 05/28/21 [facility] [address], [place] [address] Attending Physician: Not on Staff, Attending MD [...] 05/17/21 23:47:00 EDT, Route to Pharmacy Electronically, [facility] - [place], [place] - [id number], Partial fill upon patient request if... Start Date: 05/17/21 Stop Date: 06/16/21 Status: Ordered chlorthalidone 25 mg oral tablet 12.5 mg, 0.5, tablet, By Mouth, Daily, # 15 tablet, Refills 0, Tot. Refills 0, Maintenance, 05/17/21 23:47:00 EDT, Route to Pharmacy Electronically, [facility] [place] [id number], Partial fill upon patient request if the prescription... Start Date: 05/17/21 Stop Date: 06/16/21 Status: Ordered diclofenac 1% topical gel 1 application, Topically, 4 times a day, # 100 Gm, 0 Refills, Maintenance, 05/17/21 23:47:00 EDT, Gel, [facility] [place] [id number], Partial fill upon patient request if the prescription is for a schedule II opioid drug., 179, cm, 03... Start Date: 05/17/21 Stop Date: 05/31/21 Status: Ordered docusate sodium 100 mg oral capsule 100 mg, 1, capsule, By Mouth, Daily, # 30 capsule, Refills 0, Tot. Refills 0, Maintenance, 05/17/2222:47:00 EDT, Route to Pharmacy Electronically, [facility] [place] [id number], Partial fill upon patient request if the prescription i... Start Date: 05/17/21 Stop Date: 06/16/21 Status: Ordered Flonase 50 mcg/inh nasal spray 2 sprays = 100 mcg, Nares, Both, Daily, # 16 Gm, 0 Refills, Maintenance, 05/17/21 23:47:00 EDT, Nasal [place], [facility] [place] [id number], Partial fill upon patient request if the prescription is for a schedule II opioid drug., 2 spr... Start Date: 05/17/21 Stop Date: 05/31/21 Status: Ordered folic acid 1 mg oral tablet 1 mg, 1, tablet, By Mouth, Daily, # 30 tablet, Refills 0, Tot. Refills 0, Maintenance, 05/17/21 23:47:00 EDT, Route to Pharmacy Electronically, [facility] [place] [id number], Partialfill upon patient request if the prescription is fo... Start Date: 05/17/21 Stop Date: 06/16/21 Status: Ordered gabapentin 600 mg oral tablet 1 tablet = 600 mg, By Mouth, 3 times a day, # 90 tablet, 0 Refills, Maintenance, 05/17/21 23:47:00 EDT, Tablet, [facility] - [id number], Partial fill upon patient request if the prescription is for a schedule II opioid drug., 17... Start Date: 05/17/21 Stop Date: 06/16/21 Status: Ordered lidocaine 5% topical film 1 film, Topically, Daily, knee pain, # 30 film, 0 Refills, Maintenance, 05/17/21 23:46:00 EDT, [place], [facility], [place] - [id number], Partial fill upon patient request if the prescription is for a schedule II opioid drug., 1 film Topic... Start Date: 05/17/21 Stop Date: 06/16/21 Status: Ordered loratadine 10 mg oral tablet 10 mg, 1, tablet, By Mouth, Daily, # 30 tablet, Refills 0, Tot. Refills 0, Maintenance, 05/17/21 23:46:00 EDT, Route to Pharmacy Electronically, [facility] [id number], Partial fill upon patient request if the prescription is f... Start Date: 05/17/21 Stop Date: 06/16/21 Status: Ordered losartan 25 mg oral tablet 25 mg, 1, tablet, By Mouth, Daily, Hold if SBP<100mm Hg, # 30 tablet, Refills 0, Tot. Refills 0,Maintenance, 03/29/21 14:21:00 EST, Route to Pharmacy Electronically, [facility], [facility] [id number], Partial fill upon patient request if... Start Date: 03/29/21 Stop Date: 04/28/21 Status: Ordered MetFORMIN (Eqv-Glucophage XR) 500 mg oral tablet, extended release 1 tablet, By Mouth, Daily, for 30 days, # 30 tablet, 11 Refills, Physician Stop 05/12/22 23:46:00 EDT, 05/17/21 23:46:00 EDT, [facility] [id number], 179, cm, 05/17/21 19:30:00 EDT, Height, 140, kg, 05/17/21 19:30:00 EDT, Dry W... Start Date: 05/17/21 Stop Date: 05/12/22 Status: Ordered OXcarbazepine 300 mg oral tablet 300 mg, 1, tablet, By Mouth, 2 times a day, # 60 tablet, Refills 0, Tot. Refills 0, Maintenance, 05/17/21 23:45:00 EDT, Route to Pharmacy Electronically, [facility] [id number], Partial fill upon patient request if the [...] 05/17/21 23:46:00 EDT, Route to Pharmacy Electronically, [facility] [id number], Partialfill upon patient request if the prescription is fo... Start Date: 05/17/21 Stop Date: 06/16/21 Status: Ordered risperiDONE 3 mg oral tablet 3 mg, 1, tablet, By Mouth, Daily at bedtime, # 30 tablet, Refills 0, Tot. Refills 0, Maintenance, 05/17/21 23:46:00 EDT, Route to Pharmacy Electronically, [facility] [id number], Partial fill upon patient request if the [...] sleep apnea, Com plex sleep apnea(Confirmed) Active BHN/CCA/Metallurgical Laboratory Assistant-Remedios MárquezVfyhjrt-[phone]/Health alf, active care coordination(Confirmed) Active Severe obesity(Confirmed) Active [...]
--- OUTSIDE RECORDS SUMMARY | 2022-08-02 17:42 | XMS_ITS | Continuity of Care Document ---
Author Name Unknown Organization [facility] Address [address] [place] [id number]- Care Team Providers Care Telephone Maintenance Mechanic Name Role Phone Delia ACOSTA, Lamine [place] Primary Care Physician [phone] [place] [facility] [place] 02/06/[address] [address]- Encounter Diagnosis Depressive state(Final) - 02/06/21 Discharge Disposition: A-D/C Home Attending Physician: Ava Robbins DO Admitting Physician: Ava Robbins DO Referring Physician: Not on Staff, Referring [...] oral tablet 5 mg, Tablet, By Mouth, 02/06/21 9:00:00 EST Start Date: 02/06/21 Stop Date: 02/06/21 Status: Completed amLODIPine 5 mg oral tablet 10 mg, 2, tablet, By Mouth, Daily, # 60 tablet, Refills 1, Tot. Refills 1, Maintenance, 10/23/20 10:46:00 EDT, Route to Pharmacy Electronically, [facility]/pharmacy #[id number], Partial fill upon patient request if the prescription is for a schedule II opioid drug... Start Date: 10/23/20 Status: Ordered chlorthalidone 25 mg oral tablet 12.5 mg, 0.5, tablet, By Mouth, Daily, # 15 tablet, Refills 1, Tot. Refills 1, Maintenance, 10/23/20 10:48:00 EDT, Route to Pharmacy Electronically, [facility]/pharmacy #[id number], Partial fill upon patient request if the prescription is for a schedule II opioid... Start Date: 10/23/20 Status: Ordered Colace sodium 100 mg oral capsule 100 mg, 1, capsule, By Mouth, Daily in AM, # 30 capsule, Refills 1, Tot. Refills 1, Maintenance, 10/23/20 11:49:00 EDT, Route to Pharmacy Electronically, [facility]/pharmacy #[id number], Partial fill upon patientrequest if the prescription is for a schedule II op... Start Date: 10/23/20 Status: Ordered diclofenac 1% topical gel 1 application, Topically, 4 times a day, # 100 Gm, 0 Refills, Maintenance, 11/23/20 13:32:00 EDT, Gel, [facility] - [place], [place] - [id number], Partial fill upon patient request if the prescription is for a schedule II opioid drug., 177, cm, 10... Start Date: 11/23/20 Status: Ordered diphenhydrAMINE 50 mg oral tablet = 50 mg, By Mouth, Every 6 hours, PRN Anxiety, # 60 tablet, 1 Refills, Maintenance, 10/23/20 10:48:00 EDT, Tablet, [facility]/pharmacy #[id number], Partial fill upon patient request if the prescription is for a schedule II opioid drug., 177, cm, 10/22/20 21:57:00... Start Date: 10/23/20 Status: Ordered folic acid 1 mg oral tablet 1, tablet, By Mouth, Daily, # 30 tablet, Refills 1, Route to Pharmacy Electronically, [facility], 177, cm, 12/17/20 10:34:00 EDT, Height, 148, kg, 10/16/20 15:12:00 EDT, Dry Weight Start Date: 01/01/21 Status: Ordered gabapentin 300 mg oral capsule 600 mg, Capsule, By Mouth, 02/06/21 9:00:00 EST Start Date: 02/06/21 Stop Date: 02/06/21 Status: Completed gabapentin 600 mg oral tablet 1 tablet, By Mouth, 3 times a day, # 90 tablet, 1 Refills, [facility], 177, cm, 12/17/20 10:34:00 EDT, Height, 148, kg, 10/16/20 15:12:00 EDT, Dry Weight Start Date: 01/01/21 Status: Ordered loratadine 10 mg oral tablet 1, tablet, By Mouth, Daily, # 30 tablet, Refills 1, Route to Pharmacy Electronically, [facility], 177, cm, 12/17/20 10:34:00 EDT, Height, 148, kg, 10/16/20 15:12:00 EDT, Dry Weight Start Date: 01/01/21 Status: Ordered losartan 25 mg oral tablet 25 mg, Tablet, By Mouth, 02/06/21 9:00:00 EST Start Date: 02/06/21 Stop Date: 02/06/21 Status: Completed losartan 25 mg oral tablet 25 mg, 1, tablet, By Mouth, Daily, # 30 tablet, Refills 1, Tot. Refills 1, Maintenance, 10/23/20 10:47:00 EDT, Route to Pharmacy Electronically, [facility]/pharmacy #[id number], Partial fill upon patient request if the prescription is for a schedule II opioid drug... Start Date: 10/23/20 Status: Ordered metFORMIN 500 mg oral tablet, extended release 1 tablet = 500 mg, By Mouth, Daily, # 30 tablet, 1 Refills, Maintenance, 10/23/20 10:47:00 EDT, ER Tablet, [facility]/pharmacy #[id number], Partial fill upon patient request if the prescription is for a schedule II opioid drug., 177, cm, 10/22/20 21:57:00 EDT, Hei... Start Date: 10/23/20 Status: Ordered MiraLax oral powder for reconstitution = 17 Gm, By Mouth, Daily, # 255 Gm, 1 Refills, Maintenance, 10/23/20 10:49:00 EDT, [facility]/pharmacy #[id number], Partial fill upon patient request if the prescription is for a schedule II opioid drug., 17 Gm By Mouth Daily, 177, cm, 10/22/20 21:57:00 EDT, Heigh... Start Date: 10/23/20 Status: Ordered OXcarbazepine 300 mg oral tablet 300 mg, 1, tablet, By Mouth, 2 times a day, # 60 tablet, Refills 1, Tot. Refills 1, Maintenance, 10/23/20 10:48:00 EDT, Route to Pharmacy Electronically, [facility]/pharmacy #[id number], Partial fill upon patientrequest if the [...] 10/23/20 10:51:00 EDT, Route to Pharmacy Electronically, [facility]/pharmacy #[id number], Partial fill upon patient request if the prescription is for a schedule II opioid drug.... Start Date: 10/23/20 Status: Ordered risperiDONE 3 mg oral tablet 3 mg, 1, tablet, By Mouth, Daily at bedtime, # 30 tablet, Refills 1, Tot. Refills 1, Maintenance, 10/23/20 10:52:00 EDT, Route to Pharmacy Electronically, [facility]/pharmacy #[id number], Partial fill upon patient request if the prescription is for a schedule II o... Start Date: 10/23/20 Status: Ordered Tylenol 8 HR Arthritis Pain 650 mg oral tablet, extended release 1 tablet = 650 mg, By Mouth, Every 8 hours, PRN as needed for pain, # 50 tablet, 0 Refills, Maintenance, 12/17/20 15:15:00 EDT, ER Tablet, [place], [place] - [id number], Partial fillupon patient request if the prescription [...] sleep apnea, Com plex sleep apnea(Confirmed) Active BHN/CCA/Algology Teacher-Remedios MárquezPmqzyzj-[phone]/Health m[facility]p, active care coordination(Confirmed) Active Severe obesity(Confirmed) Active [...] 1 2 3 Oxygen Saturation [94-100 %] 100 % (02/06/21 3:03 PM) 96 % (02/06/21 4:57 AM) 99 % (02/06/21 1:22 AM) Pulse Rate [55-90 bpm] 105 bpm *H* (02/06/21 3:03 PM) 87 bpm (02/06/21 7:50 AM) 96 bpm *H* (02/06/21 4:57 AM) Blood Pressure [90-138/55-84 mm Hg] 176/100mm Hg *H* (02/06/21 3:03 PM) 140/79mm Hg *H* (02/06/21 7:50 AM) 140/79mm Hg *H* (02/06/21 7:50 AM) Respiratory Rate [16-30 br/min] 20 br/min (02/06/21 3:03 PM) 18 br/min (02/06/21 8:50 AM) 18 br/min (02/06/21 7:50 AM) Temperature [96.8-100.4 DegF] 98.2 DegF (02/06/21 4:57 AM) 98.0 DegF (02/06/21 1:22 AM) Mode of Delivery (Oxygen) Room air (02/06/21 3:03 PM) Room air (02/06/21 4:57 AM) Room air (02/06/21 1:22 AM) Blood pressure sites Arm, right (02/06/21 3:03 PM) Arm, right (02/06/21 7:50 AM) Arm, right (02/06/21 4:57 AM) Temperature Route Oral (02/06/21 4:57 AM) Oral (02/06/21 1:22 AM) Social History Social History Type Response Smoking Status Never smoker entered on: 10/02/13 Sex
--- OUTSIDE RECORDS SUMMARY | 2022-08-02 17:42 | XMS_ITS | Continuity of Care Document ---
Author Name Unknown Organization [facility] Address [address] [place] [address]- Care Team Providers Care Certified Technician Specialist Name Role Phone Delia ACOSTA, Lamine [place] Primary Care Physician [phone] [facility] [place] [facility] [address] [place] [address]- Attending Physician: Not on Staff, Attending MD Allergies, Adverse Reactions, Alerts Substance Reaction [...] 08/18/21 10:14:00 EDT, Route to Pharmacy Electronically, [facility] - [place], [place] - [id number],Partial fill upon patient request if the prescripti... Start Date: 08/18/21 Status: Ordered buPROPion 150 mg/24 hours (XL) oral tablet, extended release 1 tablet, By Mouth, Daily, # 30 tablet, 0 Refills, [facility], 30, TAKE 1 TABLET BY MOUTH ONCEDAILY, 177.8, cm, 10/05/21 8:09:00 EDT, Height, 136.078, kg, 09/02/21 19:37:00 EDT, Dry Weight Start Date: 10/13/21 Status: Ordered chlorthalidone 25 mg oral tablet 12.5 mg, 0.5, tablet, By Mouth, Daily, # 15 tablet, Refills 1, Tot. Refills 1, Maintenance, 08/18/21 10:14:00 EDT, Route to Pharmacy Electronically, [facility] - [place], [place] - [id number], Partial fill upon patient request if the [...] sugar for type 2 DM. E11., 10/20/21 9:49:00 EDT, Supply, 177.8, cm, 10/20/21 [...] 1 Refills, Maintenance, 08/18/21 10:14:00 EDT, Tablet, [facility], [place] - [id number], Partial fill upon patient request if the prescription is for a schedule II opioid drug., 17... Start Date: 08/18/21 Stop Date: 10/17/21 Status: Ordered hydrOXYzine pamoate 50 mg oral capsule = 50 mg, By Mouth, Every 6 hours, PRN Anxiety, # 60 capsule, 1 Refills, Maintenance, 08/18/21 10:15:00 EDT, Capsule, [facility] [id number], Partial fill upon patient request if the prescription is for a schedule II opioid drug... Start Date: 08/18/21 Status: Ordered loratadine 10 mg oral tablet 10 mg, 1, tablet, By Mouth, Daily, # 30 tablet, Refills 1, Tot. Refills 1, Maintenance, 08/18/21 10:15:00 EDT, Route to Pharmacy Electronically, [facility], [facility] [id number], Partial fill upon patient request if the prescription is f... Start Date: 08/18/21 Stop Date: 10/17/21 Status: Ordered metFORMIN 500 mg oral tablet, extended release 1 tablet = 500 mg, By Mouth, Daily, with food Angolan label please., # 30 tablet, 5 Refills, Maintenance, 10/20/21 9:49:00 EDT, ER Tablet, [facility] [id number], Partial fillupon patient request if the prescription is for a... Start Date: 10/20/21 Status: Ordered mupirocin 2% topical cream See Instructions, apply thin layer to face twice a day., # 30 Gm, 0 Refills, Maintenance, 10/05/21 8:55:00 EDT, [facility] [id number], Partial fill upon patient request if the prescription is for a schedule II opioid drug., ap... Start Date: 10/05/21 Status: Ordered mupirocin 2% topical ointment See Instructions, Topically 2 times a day, # 22 Gm, 0 Refills, Maintenance, 10/05/21 17:24:00 EDT, [facility] [id number], Partial fill upon patient request if the prescription is for a schedule II opioid drug., Topically 2 kiya... Start Date: 10/05/21 Status: Ordered paliperidone 234 mg/1.5 mL intramuscular suspension, extended release = 234 mg, Intramuscular, Every 28 days, Due on 09/13/2021, # 1 each, 1 Refills, Maintenance, 08/18/21 10:16:00 EDT, [facility] [id number], Partial fill upon patient request ifthe prescription [...] Maintenance,08/18/21 10:19:00 EDT, Route to Pharmacy Electronically, [facility] [id number], Partial fill upon patient request if the [...] sleep apnea, Com plex sleep apnea(Confirmed) Active BHN/CCA/Infantry Indirect Fire Crewmember-Remdeios MárquezSgtplyn-[phone]/Health jail, active care coordination(Confirmed) Active Treatment-emergent central s [...] Personnel Name: Lamine Lin MD Address: [address] [place] [address]
--- OUTSIDE RECORDS SUMMARY | 2022-08-02 17:42 | XMS_ITS | Continuity of Care Document ---
Author Name Unknown Organization [facility] Address [address] [place] [address]- Care Team Providers Care Shellfish Weigher Name Role Phone Lamine Lin MD Primary Care Physician Encounter [facility] [place] [facility] [id number] Date(s): 04/07/22 - 06/29/22 [facility] [address] [place] [address]- Attending Physician: Lamine Lin MD Admitting Physician: Lamine Lin MD Referring Physician: Lamine Lin MD Allergies, Adverse Reactions, Alerts Substance Reaction Severity Status lisinopril dry cough Active Dust Mild Active Milk Products Nausea and vomiting Persistent Moderate Active cloNIDine confusion Active Immunizations Given and Recorded Vaccine Date Status Refusal Reason [id number] 12y+ bivalent booster vax 02/07/22 Given influenza [...] each, 1 Refills, Maintenance, 06/06/22 16:49:00 EDT, [facility] [id number], 178, cm, 06/06/22 16:31:00 EDT, Height, 101.4, kg, 01/12/22 14:14:00 EST, Dry Weight Start Date: 06/06/22 Status: Ordered ferrous fumarate 324 mg oral tablet 1 tablet = 324 mg, By Mouth, Every 48 hours, # 15 tablet, 5 Refills, Maintenance, 06/06/22 16:37:00EDT, [facility] [id number], Partial fill upon patient request if the prescription is for a schedule II opioid drug., 178, cm,... Start Date: 06/06/22 Status: Ordered folic acid 1 mg oral tablet 1, tablet, By Mouth, Daily, # 30 tablet, Refills 5, Tot. Refills 5, Maintenance, 06/06/22 16:49:00 EDT, Route to Pharmacy Electronically, [facility] [id number], 178, cm, 06/06/22 16:31:00 EDT, Height, 101.4, kg, 01/12/22 14:14... Start Date: 06/06/22 Status: Ordered gabapentin 600 mg oral tablet 1 tablet = 600 mg, By Mouth, 3 times a day, # 90 tablet, 5 Refills, Maintenance, 06/06/22 16:41:00 EDT, Tablet, [facility] [id number], Partial fill upon patient request if the prescription is for a schedule II opioid drug., 17... Start Date: 06/06/22 Stop Date: 12/03/22 Status: Ordered loratadine 10 mg oral tablet 10 mg, 1, tablet, By Mouth, Daily, # 30 tablet, Refills 3, Tot. Refills 3, Maintenance, 06/06/22 16:41:00 EDT, Route to Pharmacy Electronically, [facility] [id number], Partial fill upon patient request if the prescription is f... Start Date: 06/06/22 Stop Date: 10/04/22 Status: Ordered MiraLax oral powder for reconstitution = 17 Gm, By Mouth, Daily, dissolve in water before taking, # 527 Gm, 1 Refills, Maintenance, 06/06/22 16:49:00 EDT, [facility], [place], [place] - [id number], Partial fill upon patient request if the prescription is for a schedule II... Start Date: 06/06/22 Status: Ordered multivitamin Multiple Vitamins oral tablet 1 tablet, By Mouth, Daily, # 90 tablet, 3 Refills, Maintenance, 06/06/22 16:40:00 EDT, [facility] [id number], Partial fill upon patient request if the [...] sleep apnea, Complex sleep apnea Confirmed Active BHN/CCA/Judicial Assistant-Tia Jarrett [phone]/Health group home, active care coordination Confirmed Active Treatment-emergent central [...] Personnel Name: Ela Beltrán RN Position: [facility] AMB Nurse Member Role: Primary Care Nurse Name: Alaina Gillette RN Position: [facility] RN Member Role: Primary Care Nurse Name: Kristyn Tapia RN Position: [facility] SN RN Member Role: Primary Care Nurse Name: Lorna Gentile NP Position: [facility] Associate Professional Member Role: Primary Care Nurse Address: Address: [address] [place] [id number] Name: Venus Jaramillo RN Position: [facility] RN Member Role: Primary Care Nurse Name: Flor Donnelly RN Position: [facility] RN Member Role: Primary Care Nurse Name: Ruiz Matson RN Position: [facility] RN Member Role: Primary Care Nurse Name: Belle Ames RN Position: [facility] RN Member Role: Primary Care Nurse Name: Alex Rios RN Position: [facility] RN Member Role: Primary Care Nurse Name: Mary TITUS RN, Daniel Position: [facility] RN Member Role: Primary Care Nurse Name: Jordi Carter MD Position: [facility] Renal MD Member Role: Lifetime Consulting Physician Address: Address: [address] [facility], [place] [address]- [place] Name: Loren Hamlin RN Position: [facility] RN Member Role: Primary Care Nurse Name: Malia Wise RN Position: [facility] RN Member Role: Primary Care Nurse Name: Jessica Dia RN Position: [facility] RN Member Role: Primary Care Nurse Name: Lamine Lin MD Position: [facility] Primary Care Physician Member Role: PCP Address: Address: [address] [facility] [place] [place] [address]- [place] Name: Rose Abraham RN Position: [facility] Hospital Homicide Investigator Member Role: Primary Care Nurse Name: Vinod Botello MD Position: [facility] Psychiatry MD Member Role: Lifetime Consulting Physician Address: Address: [address] [place] [address]- [place] Care Team Related Persons Name: MALIA HARRIS Name: KATHLEEN JACQUES Address: home [address] [place] [address] Name: VIRGIL PARKS Address: home [address] [place] [address] Name: MICHAELA MONTENEGRO Address: home UNKNOWN Name: MIGUEL PUENTES Address: home [address] [place] [address]
--- OUTSIDE RECORDS SUMMARY | 2022-08-02 17:42 | XMS_ITS | Continuity of Care Document ---
Author Name Unknown Organization [facility] Address [address] [place] [address]- Care Team Providers Care Golf Player Assistant Name Role Phone Delia ACOSTA, Lamine Covington Primary Care Physician [phone] Encounter [facility] Date(s): 01/19/21 - 02/27/21 [facility] [address] [place] [address]- Attending Physician: Not on Staff, Attending MD [...] 10/23/20 10:46:00 EDT, Route to Pharmacy Electronically, [facility]/pharmacy #[id number], Partial fill upon patient request if the prescription is for a schedule II opioid drug... Start Date: 10/23/20 Status: Ordered chlorthalidone 25 mg oral tablet 12.5 mg, 0.5, tablet, By Mouth, Daily, # 15 tablet, Refills 1, Tot. Refills 1, Maintenance, 10/23/20 10:48:00 EDT, Route to Pharmacy Electronically, [facility]/pharmacy #[id number], Partial fill upon patient request if the prescription is for a schedule II opioid... Start Date: 10/23/20 Status: Ordered Colace sodium 100 mg oral capsule 100 mg, 1, capsule, By Mouth, Daily in AM, # 30 capsule, Refills 1, Tot. Refills 1, Maintenance, 10/23/20 11:49:00 EDT, Route to Pharmacy Electronically, [facility]/pharmacy #[id number], Partial fill upon patientrequest if the prescription is for a schedule II op... Start Date: 10/23/20 Status: Ordered diclofenac 1% topical gel 1 application, Topically, 4 times a day, # 100 Gm, 0 Refills, Maintenance, 11/23/20 13:32:00 EDT, Gel, [facility] [place], [place] - [id number], Partial fill upon patient request if the prescription is for a schedule II opioid drug., 177, cm, 10... Start Date: 11/23/20 Status: Ordered diphenhydrAMINE 50 mg oral tablet = 50 mg, By Mouth, Every 6 hours, PRN Anxiety, # 60 tablet, 1 Refills, Maintenance, 10/23/20 10:48:00 EDT, Tablet, [facility]/pharmacy #[id number], Partial fill upon patient request if the prescription is for a schedule II opioid drug., 177, cm, 10/22/20 21:57:00... Start Date: 10/23/20 Status: Ordered folic acid 1 mg oral tablet 1, tablet, By Mouth, Daily, # 30 tablet, Refills 1, Route to Pharmacy Electronically, [facility], 177, cm, 12/17/20 10:34:00 EDT, Height, 148, kg, 10/16/20 15:12:00 EDT, Dry Weight Start Date: 01/01/21 Status: Ordered gabapentin 600 mg oral tablet 1 tablet, By Mouth, 3 times a day, # 90 tablet, 1 Refills, [facility], 177, cm, 12/17/20 10:34:00 EDT, Height, 148, kg, 10/16/20 15:12:00 EDT, Dry Weight Start Date: 01/01/21 Status: Ordered loratadine 10 mg oral tablet 1, tablet, By Mouth, Daily, # 30 tablet, Refills 1, Route to Pharmacy Electronically, [facility], 177, cm, 12/17/20 10:34:00 EDT, Height, 148, kg, 10/16/20 15:12:00 EDT, Dry Weight Start Date: 01/01/21 Status: Ordered losartan 25 mg oral tablet 25 mg, 1, tablet, By Mouth, Daily, # 30 tablet, Refills 1, Tot. Refills 1, Maintenance, 10/23/20 10:47:00 EDT, Route to Pharmacy Electronically, [facility] #[id number], Partial fill upon patient request if the prescription is for a schedule II opioid drug... Start Date: 10/23/20 Status: Ordered MetFORMIN (Eqv-Glucophage XR) 500 mg oral tablet, extended release 1 tablet, By Mouth, Daily, # 30 tablet, 11 Refills, [facility], 177, cm, 02/04/21 10:29:00 EST, Height, 148, kg, 10/16/20 15:12:00 EDT, Dry Weight Start Date: 02/10/21 Status: Ordered MiraLax oral powder for reconstitution = 17 Gm, By Mouth, Daily, # 255 Gm, 1 Refills, Maintenance, 10/23/20 10:49:00 EDT, [facility]/pharmacy #[id number], Partial fill upon patient request if the prescription is for a schedule II opioid drug., 17 Gm By Mouth Daily, 177, cm, 10/22/20 21:57:00 EDT, Lori... Start Date: 10/23/20 Status: Ordered OXcarbazepine 300 mg oral tablet 300 mg, 1, tablet, By Mouth, 2 times a day, # 60 tablet, Refills 1, Tot. Refills 1, Maintenance, 10/23/20 10:48:00 EDT, Route to Pharmacy Electronically, [id number], Partial fill upon patientrequest if the [...] 10/23/20 10:51:00 EDT, Route to Pharmacy Electronically, [facility]/pharmacy #[id number], Partial fill upon patient request if the prescription is for a schedule II opioid drug.... Start Date: 10/23/20 Status: Ordered risperiDONE 3 mg oral tablet 3 mg, 1, tablet, By Mouth, Daily at bedtime, # 30 tablet, Refills 1, Tot. Refills 1, Maintenance, 10/23/20 10:52:00 EDT, Route to Pharmacy Electronically, [facility]/pharmacy #[id number], Partial fill upon patient request if the prescription is for a schedule II o... Start Date: 10/23/20 Status: Ordered Tylenol 8 HR Arthritis Pain 650 mg oral tablet, extended release 1 tablet = 650 mg, By Mouth, Every 8 hours, PRN as needed for pain, # 50 tablet, 0 Refills, Maintenance, 12/17/20 15:15:00 EDT, ER Tablet, [facility] [place], [place] - [id number], Partial fillupon patient request if the prescription [...] sleep apnea, Com plex sleep apnea(Confirmed) Active BHN/CCA/Youth Advocate-Remedios MárquezZcfbszg-[phone]/Health jail, active care coordination(Confirmed) Active Severe obesity(Confirmed) [...]
--- OUTSIDE RECORDS SUMMARY | 2022-08-02 17:42 | XMS_ITS | Continuity of Care Document ---
Author Name Unknown Organization [facility] Address [address] [place] [address]- Care Team Providers Care Assurance Senior Manager Name Role Phone Delia ACOSTA, Lamine Covington Primary Care Physician [phone] Encounter [facility] Date(s): 08/30/19 - 09/29/19 [facility] [address] [place] [address]- [facility] Allergies, Adverse Reactions, Alerts [...] 8:48:00 EDT, Route to Pharmacy Electronically, [facility] [place], [place] -, 177, cm, 04/02/2009:47:00 EST, Height, [...] Gm, 3 Refills, Maintenance, 08/28/19 8:53:00 EDT, [place], [place], [place] -, 2 sprays Nares, Both Daily in AM, 177, cm, 07/29/19 13:56:00 EDT, Height, 135, kg, 03/30/18 19:13:00 EST, Dry Weight Start Date: 08/28/19 Status: Ordered metFORMIN 500 mg oral tablet, extended release See Instructions, TAKE ONE TABLET BY MOUTH DAILY, # 30 tablet, 5 Refills, Soft Stop, 05/09/19 8:49:00 EDT, [place], [place] -, 177, cm, 04/02/19 10:47:00 EST, Height, 135, kg, 03/30/18 19:13:00 EST, Dry Weight Start Date: 05/09/19 Status: Ordered Metoprolol Tartrate 25 mg oral tablet See Instructions, TAKE 1 & 1/2 TABLETS BY MOUTH 2 (two) times a day, # 90 tablet, 3 Refills, Soft Stop, 05/09/19 8:49:00 EDT, [place], [place] -, 177, cm, 04/02/19 10:47:00 EST, Height, 135, kg, 03/30/18 19:13:00 EST, Dry Weight Start Date: 05/09/19 Status: Ordered omeprazole 20 mg oral enteric coated capsule 1 capsule = 20 mg, By Mouth, 2 times a day, # 60 capsule, 3 Refills, Soft Stop, 07/09/19 10:02:00 EDT, [place], [place] -, Dose increased 05/09/19. Label in [facility] 177, cm, 04/02/19 10:47:00 EST, Height, 135, kg, 03/30/18 19:13:00... Start Date: 07/09/19 Status: Ordered simvastatin 10 mg oral tablet See Instructions, TAKE ONE TABLET BY MOUTH DAILY AT BEDTIME, # 30 tablet, Refills 11, Tot. Refills 11, Soft Stop, 05/09/19 8:49:00 EDT, Instructions Replace Required Details, Route to Pharmacy Electronically, [facility] [place], [place] -, 177,... Start Date: 05/09/19 Status: [...]
--- OUTSIDE RECORDS SUMMARY | 2022-08-02 17:42 | XMS_ITS | Continuity of Care Document ---
Author Name Unknown Organization [facility] Address [address] [place] [address]- Care Team Providers Care Cigar Bander Name Role Phone Delia ACOSTA, Lamine Covington Primary Care Physician Encounter [facility] [place] [place] Date(s): 07/30/19 - 08/29/19 [facility] [address] [place] [address]- [facility] Attending Physician: Marsha Ron Admitting Physician: Marsha Ron Referring Physician: AdmtrMarsha Allergies, Adverse Reactions, Alerts Substance Reaction Severity [...] 05/09/19 8:48:00 EDT, Route to Pharmacy Electronically, [facility] [place], [place] -, 177, cm, 04/02/2009:47:00 EST, Height, 135, kg, 03/30/18 19:13:00 ES... Start Date: 05/09/19 Status: Ordered Delsym 12 Hour Cough Relief 30 mg/5 mL oral suspension, extended release 10 mL = 60 mg, By Mouth, Every 12 hours, for 5 days, with plenty of water. Sudanese label please., #120 mL, 0 Refills, Acute 09/01/19 13:59:00 EDT, 08/27/19 13:59:00 EDT, [place], [place] -, 177, cm, 07/29/19 13:56:00 EDT, Height, 135... Start Date: 08/27/19 Stop Date: 09/01/19 Status: Ordered Depakote 500 mg oral enteric coated tablet 2 tablet = 1,000 mg, By Mouth, 2 times a day, # 120 tablet, 3 Refills, Maintenance, 04/19/18 15:29:27 EST, EC Tablet Start Date: 04/19/18 Stop Date: 08/17/18 Status: Ordered Flonase 50 mcg/inh nasal spray 2 sprays, Nares, Both, Daily in AM, # 16 Gm, 3 Refills, Maintenance, 08/28/19 8:53:00 EDT, [place], [place], [place] -, 2 sprays Nares, Both Daily in AM, 177, cm, 07/29/19 13:56:00 EDT, Height, 135, kg, 03/30/18 19:13:00 EST, Dry Weight Start Date: 08/28/19 Status: Ordered metFORMIN 500 mg oral tablet, extended release See Instructions, TAKE ONE TABLET BY MOUTH DAILY, # 30 tablet, 5 Refills, Soft Stop, 05/09/19 8:49:00 EDT, [place], [place] -, 177, cm, 04/02/19 10:47:00 EST, Height, 135, kg, 03/30/18 19:13:00 EST, Dry Weight Start Date: 05/09/19 Status: Ordered Metoprolol Tartrate 25 mg oral tablet See Instructions, TAKE 1 & 1/2 TABLETS BY MOUTH 2 (two) times a day, # 90 tablet, 3 Refills, Soft Stop, 05/09/19 8:49:00 EDT, [place], [place] -, 177, cm, 04/02/19 10:47:00 EST, Height, 135, kg, 03/30/18 19:13:00 EST, Dry Weight Start Date: 05/09/19 Status: Ordered omeprazole 20 mg oral enteric coated capsule 1 capsule = 20 mg, By Mouth, 2 times a day, # 60 capsule, 3 Refills, Soft Stop, 07/09/19 10:02:00 EDT, [place], [place] -, Dose increased 05/09/19. Label in [place]ese., 177, cm, 04/02/19 10:47:00 EST, Height, 135, kg, 03/30/18 19:13:00... Start Date: 07/09/19 Status: Ordered simvastatin 10 mg oral tablet See Instructions, TAKE ONE TABLET BY MOUTH DAILY AT BEDTIME, # 30 tablet, Refills 11, Tot. Refills 11, Soft Stop, 05/09/19 8:49:00 EDT, Instructions Replace Required Details, Route to Pharmacy Electronically, [place], [place] -, 177,... Start Date: 05/09/19 Status: [...]
--- OUTSIDE RECORDS SUMMARY | 2022-08-02 17:42 | XMS_ITS | Continuity of Care Document ---
Author Name Unknown Organization [facility] Address [address] [place] [address]- Care Team Providers Care Floor Inspector Name Role Phone Delia ACOSTA, Lamine Covington Primary Care Physician Encounter [facility] [place] Date(s): 11/11/20 - 12/17/[address] [address]- Attending Physician: Jessica Trinh NP Admitting Physician: Ziggy ANGULO, Jessica Sheppard Referring Physician: Ziggy ANGULO, Jessica Sheppard Allergies, Adverse Reactions, Alerts Substance Reaction Severity [...] 10/23/20 10:46:00 EDT, Route to Pharmacy Electronically, [facility]/pharmacy #[id number], Partial fill upon patient request if the prescription is for a schedule II opioid drug... Start Date: 10/23/20 Status: Ordered chlorthalidone 25 mg oral tablet 12.5 mg, 0.5, tablet, By Mouth, Daily, # 15 tablet, Refills 1, Tot. Refills 1, Maintenance, 10/23/20 10:48:00 EDT, Route to Pharmacy Electronically, [facility]/pharmacy #[id number], Partial fill upon patient request if the prescription is for a schedule II opioid... Start Date: 10/23/20 Status: Ordered Colace sodium 100 mg oral capsule 100 mg, 1, capsule, By Mouth, Daily in AM, # 30 capsule, Refills 1, Tot. Refills 1, Maintenance, 10/23/20 11:49:00 EDT, Route to Pharmacy Electronically, [facility]/pharmacy #[id number], Partial fill upon patientrequest if the prescription is for a schedule II op... Start Date: 10/23/20 Status: Ordered diclofenac 1% topical gel 1 application, Topically, 4 times a day, # 100 Gm, 0 Refills, Maintenance, 11/23/20 13:32:00 EDT, Gel, [place], [place] - [id number], Partial fill upon patient request if the prescription is for a schedule II opioid drug., 177, cm, 10... Start Date: 11/23/20 Status: Ordered diphenhydrAMINE 50 mg oral tablet = 50 mg, By Mouth, Every 6 hours, PRN Anxiety, # 60 tablet, 1 Refills, Maintenance, 10/23/20 10:48:00 EDT, Tablet, [facility]/pharmacy #[id number], Partial fill upon patient request if the prescription is for a schedule II opioid drug., 177, cm, 10/22/20 21:57:00... Start Date: 10/23/20 Status: Ordered folic acid 1 mg oral tablet 1 mg, 1, tablet, By Mouth, Daily, # 30 tablet, Refills 1, Tot. Refills 1, Maintenance, 10/23/20 10:48:00 EDT, Route to Pharmacy Electronically, [facility]/pharmacy #[id number], Partial fill upon patient request if the prescription is for a schedule II opioid drug.... Start Date: 10/23/20 Status: Ordered gabapentin 600 mg oral tablet 1 tablet = 600 mg, By Mouth, 3 times a day, # 90 tablet, 1 Refills, Maintenance, 10/23/20 10:53:00 EDT, [facility]/pharmacy #[id number], Partial fill upon patient request if the prescription is for a schedule II opioid drug., 177, cm, 10/23/20 10:51:00 EDT, Height... Start Date: 10/23/20 Status: Ordered loratadine 10 mg oral tablet 10 mg, 1, tablet, By Mouth, Daily, # 30 tablet, Refills 1, Tot. Refills 1, Maintenance, 10/23/20 10:48:00 EDT, Route to Pharmacy Electronically, [facility]/pharmacy #[id number], Partial fill upon patient request if the prescription is for a schedule II opioid drug... Start Date: 10/23/20 Status: Ordered losartan 25 mg oral tablet 25 mg, 1, tablet, By Mouth, Daily, # 30 tablet, Refills 1, Tot. Refills 1, Maintenance, 10/23/20 10:47:00 EDT, Route to Pharmacy Electronically, [facility]/pharmacy #[id number], Partial fill upon patient request if the prescription is for a schedule II opioid drug... Start Date: 10/23/20 Status: Ordered metFORMIN 500 mg oral tablet, extended release 1 tablet = 500 mg, By Mouth, Daily, # 30 tablet, 1 Refills, Maintenance, 10/23/20 10:47:00 EDT, ER Tablet, [facility]/pharmacy #[id number], Partial fill upon patient request if the prescription is for a schedule II opioid drug., 177, cm, 10/22/20 21:57:00 EDT, [place]i... Start Date: 10/23/20 Status: Ordered MiraLax oral powder for reconstitution = 17 Gm, By Mouth, Daily, # 255 Gm, 1 Refills, Maintenance, 10/23/20 10:49:00 EDT, [facility]/pharmacy #[id number], Partial fill upon patient request [...] 10/23/20 10:48:00 EDT, [id number] fill upon patientrequest if the prescription is for a schedule II op... Start Date: 10/23/20 Status: Ordered Protonix 40 mg oral delayed release tablet = 40 mg, By Mouth, Daily, # 30 capsule, 1 Refills, Maintenance, 10/23/20 10:48:00 EDT, EC Tablet, 177, cm, 10/22/20 21:57:00 EDT, Height, 148, kg, 10/16/20 15:12:00 EDT, Dry Weight Start Date: 10/23/20 Status: Ordered RisperDAL 2 mg oral tablet 2 mg, 1, tablet, By Mouth, Daily, # 30 tablet, Refills 1, Tot. Refills 1, Maintenance, 10/23/20 10:51:00 EDT, [id number] Partial fill upon patient request if the prescription is for a schedule II opioid drug.... Start Date: 10/23/20 Status: Ordered risperiDONE 3 mg oral tablet 3 mg, 1, tablet, By Mouth, Daily at bedtime, # 30 tablet, Refills 1, Tot. Refills 1, Maintenance, 10/23/20 10:52:00 EDT, [id number] Partial fill upon patient request if the prescription is for a schedule II o... Start Date: 10/23/20 Status: Ordered Tylenol 8 HR Arthritis Pain 650 mg oral tablet, extended release 1 tablet = 650 mg, By Mouth, Every 8 hours, PRN as needed for pain, # 50 tablet, 0 Refills, Maintenance, 12/17/20 15:15:00 EDT, ER Tablet, [place], [place] - [id number], Partial fillupon patient request if the prescription [...] sleep apnea, Com plex sleep apnea(Confirmed) Active BHN/CCA/[employer] Furniture Saw Tender-Remedios MárquezSfiyzmb-[phone]/Health halfway, active care coordination(Confirmed) Active Treatment-emergent central [...]
--- OUTSIDE RECORDS SUMMARY | 2022-08-02 17:42 | XMS_ITS | Continuity of Care Document ---
Author Name Unknown Organization [facility] Address [address] [place] [address]- Care Team Providers Care International Marketing Executive Name Role Phone Delia ACOSTA, Lamine Covington Primary Care Physician [facility] Date[facility]): 03/13/20 - 04/12/20 [facility] [address] [place] [address]- Allergies, Adverse Reactions, Alerts No Known Medication [...] 18:13:00 EST, Aerosol, Route to Pharmacy Electronically, [id number], [facility] [place], [place] - [id number], 177, cm... Start Date: 01/02/20 Status: Ordered amLODIPine 5 mg oral tablet 5 mg, 1, tablet, By Mouth, Daily, # 30 tablet, Refills 11, Tot. Refills 11, Maintenance, 02/03/20 16:45:00 EST, Route to Pharmacy Electronically, [facility] [place] - [id number], 178, cm, 01/28/20 6:28:00 EST, Height, 158, [...] 3 Refills, Maintenance, 02/24/20 11:16:00 EST, Tablet, [facility], [place] - [id number], Label in Zambian., 178, cm, 02/04/20 15:21:00 EST, Height, 158, kg, 01/07/20 14:48:00 EST, Dry Weight Start Date: 02/24/20 Status: Ordered chlorthalidone 25 mg oral tablet 12.5 mg, 0.5, tablet, By Mouth, Daily, # 15 tablet, Refills 5, Tot. Refills 5, Maintenance, 02/04/20 15:34:00 EST, Route to Pharmacy Electronically, [facility], [place] - [id number], Partial fill upon patient request if the [...] mL, 0 Refills, Maintenance, 02/24/20 11:15:00 EST, [place], [facility], [place] - [id number], 1 sprays Nares, Both 2 times a day, 178, cm, 02/04/20 15:21:00 EST, Height, 158, kg, 01/07/20 14:48:0... Start Date: 02/24/20 Status: Ordered Flovent Diskus 100 mcg/inh inhalation powder 1 puffs, Inhalation, 2 times a day, # 60 each, 0 Refills, Maintenance, 03/03/20 10:49:00 EST, Powder, [facility] [id number], Partial fill upon patient request if the prescription is for a schedule II opioid drug., 1 puffs Inha... Start Date: 03/03/20 Status: Ordered Gas-X with Maalox 250 mg-62.5 mg oral capsule 2 capsule, By Mouth, Every 2 hours, PRN for indigestion, # 48 capsule, 0 Refills, Acute 04/13/20 14:59:00 EST, 03/13/20 14:59:00 EST, Capsule, [facility] [id number], Partial fill upon patient request if the prescription is for... Start Date: 03/13/20 Stop Date: 04/13/20 Status: Ordered GuaiFENesin DM 20 mg-200 mg/10 mL oral liquid 10 mL, By Mouth, Every 4 hours, PRN as needed for cough, not to exceed 6 doses/day, # 120 mL, 0 Refills, Maintenance, 03/03/20 11:05:00 EST, Liquid, [place], [place] - [id number], Partial fill upon patient request if the prescription... Start Date: 03/03/20 Status: Ordered metFORMIN 500 mg oral tablet, extended release 1 tablet = 500 mg, By Mouth, Daily, # 30 tablet, 11 Refills, Maintenance, 02/03/20 16:44:00 EST, [facility], [place], [place] - [id number], Partial fill upon patient request if the [...] 01/28/20 9:40:00 EST, Route to Pharmacy Electronically, [facility], Partial fill upon patient request if the prescription is for a schedule II o... Start Date: 01/28/20 Status: Ordered omeprazole 20 mg oral enteric coated capsule 1 capsule = 20 mg, By Mouth, 2 times a day, # 60 capsule, 2 Refills, Soft Stop, 04/01/20 14:52:00 EST, [facility] [place], [place] - [id number], Dose increased 05/09/19. Label in Zambian., 178, cm, 03/16/20 12:24:00 EST, Height, 153.2, [...] sleep apnea, Com plex sleep apnea(Confirmed) Active BHN/CCA/Forest Fire Specialist Supervisor-Remedios Oeulfal-[phone]/Health fdc, active care coordination(Confirmed) Active 1Impression: 1. Mildly [...]
--- OUTSIDE RECORDS SUMMARY | 2022-08-02 17:43 | XMS_ITS | Continuity of Care Document ---
Author Name Unknown Organization [facility] Address [address] [place] [address]- Care Team Providers Care Robotic Toy Inventor Name Role Phone Delia ACOSTA, Lamine Covington Primary Care Physician [facility] Date[facility]s): 08/27/19 - 09/26/19 [facility] [address] [place] [address]- [facility] Allergies, Adverse Reactions, Alerts Substance Reaction Severity [...] 05/09/19 8:48:00 EDT, Route to Pharmacy Electronically, [facility] [place], [place] -, 177, cm, 04/02/2009:47:00 EST, Height, [...] Gm, 3 Refills, Maintenance, 08/28/19 8:53:00 EDT, [facility], [place], [place] -, 2 sprays Nares, Both Daily in AM, 177, cm, 07/29/19 13:56:00 EDT, Height, 135, kg, 03/30/18 19:13:00 EST, Dry Weight Start Date: 08/28/19 Status: Ordered metFORMIN 500 mg oral tablet, extended release See Instructions, TAKE ONE TABLET BY MOUTH DAILY, # 30 tablet, 5 Refills, Soft Stop, 05/09/19 8:49:00 EDT, [place], [place] -, 177, cm, 04/02/19 10:47:00 EST, Height, 135, kg, 03/30/18 19:13:00 EST, Dry Weight Start Date: 05/09/19 Status: Ordered Metoprolol Tartrate 25 mg oral tablet See Instructions, TAKE 1 & 1/2 TABLETS BY MOUTH 2 (two) times a day, # 90 tablet, 3 Refills, Soft Stop, 05/09/19 8:49:00 EDT, [place], [place] -, 177, cm, 04/02/19 10:47:00 EST, Height, 135, kg, 03/30/18 19:13:00 EST, Dry Weight Start Date: 05/09/19 Status: Ordered omeprazole 20 mg oral enteric coated capsule 1 capsule = 20 mg, By Mouth, 2 times a day, # 60 capsule, 3 Refills, Soft Stop, 07/09/19 10:02:00 EDT, [place], [place] -, Dose increased 05/09/19. Label in Uzbek., 177, cm, 04/02/19 10:47:00 EST, Height, 135, kg, 03/30/18 19:13:00... Start Date: 07/09/19 Status: Ordered simvastatin 10 mg oral tablet See Instructions, TAKE ONE TABLET BY MOUTH DAILY AT BEDTIME, # 30 tablet, Refills 11, Tot. Refills 11, Soft Stop, 05/09/19 8:49:00 EDT, Instructions Replace Required Details, Route to Pharmacy Electronically, [facility] - [place], [place] -, 177,... Start Date: 05/09/19 Status: [...]
--- OUTSIDE RECORDS SUMMARY | 2022-08-02 17:43 | XMS_ITS | Continuity of Care Document ---
Author Name Unknown Organization [facility] Address [address] [place] [address]- Care Team Providers Care Steam Heating Installer Name Role Phone Delia ACOSTA, Lamine Covington Primary Care Physician [phone] Encounter [facility] Date(s): 09/08/21 - 10/08/21 [facility] [address] [place] [address]- Allergies, Adverse Reactions, Alerts Substance Reaction Severity [...] 08/18/21 10:14:00 EDT, Route to Pharmacy Electronically, [facility] - [place], [place] - [id number],Partial fill upon patient request if the prescripti... Start Date: 08/18/21 Status: Ordered buPROPion 150 mg/24 hours (XL) oral tablet, extended release 1 tablet = 150 mg, By Mouth, Daily, # 30 tablet, 0 Refills, Maintenance, 09/13/21 7:13:00 EDT, XL Tablet, [facility] [id number], Partial fill upon patient request if the prescription is for a schedule II opioid drug., 1 tablet... Start Date: 09/13/21 Status: Ordered chlorthalidone 25 mg oral tablet 12.5 mg, 0.5, tablet, By Mouth, Daily, # 15 tablet, Refills 1, Tot. Refills 1, Maintenance, 08/18/21 10:14:00 EDT, Route to Pharmacy Electronically, [facility] [id number], Partial fill upon patient request if the prescription... Start Date: 08/18/21 Status: Ordered gabapentin 600 mg oral tablet 1 tablet = 600 mg, By Mouth, 3 times a day, # 90 tablet, 1 Refills, Maintenance, 08/18/21 10:14:00 EDT, Tablet, [facility] [id number], Partial fill upon patient request if the prescription is for a schedule II opioid drug., 17... Start Date: 08/18/21 Stop Date: 10/17/21 Status: Ordered hydrOXYzine pamoate 50 mg oral capsule = 50 mg, By Mouth, Every 6 hours, PRN Anxiety, # 60 capsule, 1 Refills, Maintenance, 08/18/21 10:15:00 EDT, Capsule, [facility] [id number], Partial fill upon patient request if the prescription is for a schedule II opioid drug... Start Date: 08/18/21 Status: Ordered loratadine 10 mg oral tablet 10 mg, 1, tablet, By Mouth, Daily, # 30 tablet, Refills 1, Tot. Refills 1, Maintenance, 08/18/21 10:15:00 EDT, Route to Pharmacy Electronically, [facility] [id number], Partial fill upon patient request if the prescription is f... Start Date: 08/18/21 Stop Date: 10/17/21 Status: Ordered metFORMIN 500 mg oral tablet, extended release 1 tablet = 500 mg, By Mouth, Daily, # 30 tablet, 1 Refills, Maintenance, 08/18/21 10:15:00 EDT, ER Tablet, [facility] [id number], Partial fill upon patient request if the prescription is for a schedule II opioid drug., 178, cm... Start Date: 08/18/21 Status: Ordered mupirocin 2% topical cream See Instructions, apply thin layer to face twice a day., # 30 Gm, 0 Refills, Maintenance, 10/05/21 8:55:00 EDT, [facility] [id number], Partial fill upon patient request if the prescription is for a schedule II opioid drug., ap... Start Date: 10/05/21 Status: Ordered mupirocin 2% topical ointment See Instructions, Topically 2 times a day, # 22 Gm, 0 Refills, Maintenance, 10/05/21 17:24:00 EDT, [facility] [id number], Partial fill upon patient request if the prescription is for a schedule II opioid drug., Topically 2 kiya... Start Date: 10/05/21 Status: Ordered paliperidone 234 mg/1.5 mL intramuscular suspension, extended release = 234 mg, Intramuscular, Every 28 days, Due on 09/13/2021, # 1 each, 1 Refills, Maintenance, 08/18/21 10:16:00 EDT, [facility] [id number], Partial fill upon patient request ifthe prescription [...] Maintenance,08/18/21 10:19:00 EDT, Route to Pharmacy Electronically, [facility] [place], [place] - [id number], Partial fill upon patient request if the [facility]... Start Date: 08/18/21 Status: Ordered Problem List [...] sleep apnea, Com plex sleep apnea(Confirmed) Active BHN/CCA/Wastewater Plant Civil Engineer-Remedios MárquezHawgzne-[phone]/Health prison, active care coordination(Confirmed) Active Treatment-emergent central s [...]
--- OUTSIDE RECORDS SUMMARY | 2022-08-02 17:43 | XMS_ITS | Continuity of Care Document ---
Author Name Unknown Organization [facility] ter Address [address] [place] [address]- Care Team Providers Care Transport Rn Name Role Phone Lamine Lin MD Primary Care Physician [phone] Encounter [facility] Date(s): 03/20/22 - 03/21/[address] [address]- Encounter Diagnosis Visual hallucinations(Final) - 03/20/22 Discharge Disposition: Transfer to [facility] Facility Attending Physician: Minesh De Guzman MD Admitting Physician: Minesh De Guzman MD Referring Physician: Not on Staff, Referring MD Allergies, Adverse Reactions, Alerts Substance Reaction Severity Status lisinopril dry cough Active Dust Mild Active Milk Products Nausea and vomiting Persistent Moderate Active cloNIDine confusion Active Immunizations Given and Recorded Vaccine Date Status Refusal Reason [id number] 12y+ bivalent booster vax 02/07/22 Given influenza [...] each, 1 Refills, Maintenance, 12/06/21 10:45:00 EDT, [facility] [id number], 177.8, cm, 12/06/21 10:26:00 EDT, Height, 136.078, kg, 09/02/21 19:37:00 EDT, Dry Weight Start Date: 12/06/21 Status: Ordered folic acid 1 mg oral tablet 1, tablet, By Mouth, Daily, # 30 tablet, Refills 5, Maintenance, 01/18/22 8:09:00 EST, Route to Pharmacy Electronically, [facility], 178, cm, 01/17/22 23:35:00 EST, Height, 101.4, kg, 01/12/22 14:14:00 EST, Dry Weight Start Date: 01/18/22 Status: Ordered gabapentin 300 mg oral capsule 600 mg, Capsule, By Mouth, 03/21/22 9:00:00 EST Start Date: 03/21/22 Stop Date: 03/21/22 Status: Completed gabapentin 600 mg oral tablet 1 tablet = 600 mg, By Mouth, 3 times a day, # 90 tablet, 5 Refills, Maintenance, 12/06/21 10:44:00 EDT, Tablet, [facility] [id number], Partial fill upon patient request if the prescription is for a schedule II opioid drug., 17... Start Date: 12/06/21 Stop Date: 06/04/22 Status: Ordered hydrOXYzine pamoate 50 mg oral capsule = 50 mg, By Mouth, Every 6 hours, PRN Anxiety, # 60 capsule, 0 Refills, Maintenance, 12/06/21 10:45:00 EDT, Capsule, [facility] [id number], Partial fill upon patient request if the prescription is for a schedule II opioid drug... Start Date: 12/06/21 Status: Ordered loratadine 10 mg oral tablet 10 mg, 1, tablet, By Mouth, Daily, # 30 tablet, Refills 3, Tot. Refills 3, Maintenance, 12/06/21 10:45:00 EDT, Route to Pharmacy Electronically, [facility] [id number], Partial fill upon patient request if the prescription is f... Start Date: 12/06/21 Stop Date: 04/05/22 Status: Ordered MiraLax oral powder for reconstitution = 17 Gm, By Mouth, Daily, dissolve in water before taking, # 527 Gm, 1 Refills, Maintenance, 02/07/22 10:30:00 EST, REC Powder, [facility] [id number], Partial fill upon patient request if the [...] Dry Weight Start Date: 12/06/21 Status: Ordered risperiDONE 2 mg oral tablet [...] sleep apnea, Complex sleep apnea Confirmed Active BHN/CCA/Talcer-Tia Jarrett [phone]/Health [facility], active care coordination Confirmed Active Treatment-emergent central [...] of the findings. Signature Line Dictated By: Ctarachita Shah MD Dictated Date/Time: 02/25/11 11:07 a Vital Signs Most recent to oldest [Reference Range]: 1 2 3 Oxygen Saturation [94-100 %] 100 % (03/21/22 8:28 AM) 99 % (03/20/22 10:29 PM) 99 % (03/20/22 5:03 PM) Pulse Rate [55-90 bpm] 66 bpm (03/21/22 8:28 AM) 62 bpm (03/20/22 10:29 PM) 66 bpm (03/20/22 5:03 PM) Blood Pressure [90-138/55-84 mm Hg] 138/97mm Hg (03/21/22 8:28 AM) 134/75mm Hg (03/20/22 10:29 PM) 140/81mm Hg *H* (03/20/22 5:03 PM) Respiratory Rate [16-30 br/min] 16 br/min (03/21/22 8:31 AM) 16 br/min (03/21/22 8:28 AM) 16 br/min (03/20/22 10:29 PM) Temperature [96.8-100.4 DegF] 97.2 DegF (03/21/22 8:28 AM) 97.5 DegF (03/20/22 1:57 PM) Mode of Delivery (Oxygen) Room air (03/21/22 8:28 AM) Room air (03/20/22 10:29 PM) Room air (03/20/22 5:03 PM) Blood pressure sites Arm, right (03/21/22 8:28 AM) Temperature Route Oral (03/21/22 8:28 AM) Oral (03/20/22 1:57 PM) Social History Social History Type Response Smoking Status Never smoker entered on: 10/02/13 Sex Patient Care team information Care Team Personnel Name: Suzy Yanes RN Position: [facility] RN Member Role: Primary Care Nurse Name: Ela Beltrán RN Position: [facility] AMB Nurse Member Role: Primary Care Nurse Name: Alaina Gillette RN Position: [facility] RN Member Role: Primary Care Nurse Name: Lorna Gentile NP Position: [facility] Associate Professional Member Role: Primary Care Nurse Address: Address: [address] [place] [address]- [place] Name: Venus Jaramillo RN Position: [facility] RN Member Role: Primary Care Nurse Name: Flor Donnelly RN Position: [facility] RN Member Role: Primary Care Nurse Name: Ruiz Matson RN Position: [facility] RN Member Role: Primary Care Nurse Name: Emilee Crump RN Position: [facility] RN Member Role: Primary Care Nurse Name: Belle Ames RN Position: [facility] RN Member Role: Primary Care Nurse Name: Alex Rios RN Position: [facility] RN Member Role: Primary Care Nurse Name: Daniel Hernandez III, RN Position: [facility] RN Member Role: Primary Care Nurse Name: Jordi Carter MD Position: [facility] Renal MD Member Role: Lifetime Consulting Physician Address: Address: [address] [facility], [place] [address]- Name: Loren Hamlin RN Position: [facility] RN Member Role: Primary Care Nurse Name: Malia Wise RN Position: [facility] RN Member Role: Primary Care Nurse Name: Jessica Dia RN Position: [facility] RN Member Role: Primary Care Nurse Name: Kristyn Salcido RN Position: [facility] RN Member Role: Primary Care Nurse Name: Lamine Lin MD Position: [facility] Primary Care Physician Member Role: PCP Address: Address: [address] [facility] [place] [address]- [place] Name: Rose Abraham RN Position: [facility] Hospital Real Estate Office Manager Member Role: Primary Care Nurse Name: Vinod Botello MD Position: [facility] Psychiatry MD Member Role: Lifetime Consulting Physician Address: Address: [address] [place] [address]- [place] Name: *[facility], ED Attending Position: [facility] ED Attendings Patient Name: Jessica Chan RN Position: [facility] ED RN W/OE and Tasks Member Role: Patient Care Provider Name: Leonel Flowers MD Position: [facility] ED Medicine MD Member Role: ED Attending Physician Address: Address: [address] [place] [address]- [place] Name: Emelina Lemon Position: [facility] ED TA [facility] Care Team Related Persons Name: MALIA HARRIS Name: KATHLEEN JACQUES Address: home [address] [place] [address] Name: VIRGIL PARKS Address: home [address] [place] [address] Name: MICHAELA MONTENEGRO Address: home UNKNOWN Name: MIGUEL PUENTES Address: home [address] [place] [address]
--- OUTSIDE RECORDS SUMMARY | 2022-08-02 17:43 | XMS_ITS | Continuity of Care Document ---
Author Name Unknown Organization [facility] Address [address] [place] [address]- Care Team Providers Care Director Water And Waste Services Name Role Phone Lamine Lin MD Primary Care Physician [phone] [facility] Date[facility]s): 06/06/22 - 07/06/22 [facility] [address] [place] [address]- Attending Physician: Marsha Ron Admitting Physician: AdmMarsha bourne Referring Physician: AdmtrMarsha Allergies, Adverse Reactions, Alerts Substance Reaction Severity Status lisinopril dry cough Active Dust Mild Active Milk Products Nausea and vomiting Persistent Moderate Active cloNIDine confusion Active Immunizations Given and Recorded Vaccine Date Status Refusal Reason [id number] 12y+ bivalent booster vax 02/07/22 Given influenza [...] each, 1 Refills, Maintenance, 06/06/22 16:49:00 EDT, [facility] [id number], 178, cm, 06/06/22 16:31:00 EDT, Height, 101.4, kg, 01/12/22 14:14:00 EST, Dry Weight Start Date: 06/06/22 Status: Ordered ferrous fumarate 324 mg oral tablet 1 tablet = 324 mg, By Mouth, Every 48 hours, # 15 tablet, 5 Refills, Maintenance, 06/06/22 16:37:00EDT, [facility] [id number], Partial fill upon patient request if the prescription is for a schedule II opioid drug., 178, cm,... Start Date: 06/06/22 Status: Ordered folic acid 1 mg oral tablet 1, tablet, By Mouth, Daily, # 30 tablet, Refills 5, Tot. Refills 5, Maintenance, 06/06/22 16:49:00 EDT, Route to Pharmacy Electronically, [facility] [id number], 178, cm, 06/06/22 16:31:00 EDT, Height, 101.4, kg, 01/12/22 14:14... Start Date: 06/06/22 Status: Ordered gabapentin 600 mg oral tablet 1 tablet = 600 mg, By Mouth, 3 times a day, # 90 tablet, 5 Refills, Maintenance, 06/06/22 16:41:00 EDT, Tablet, [facility] [id number], Partial fill upon patient request if the prescription is for a schedule II opioid drug., 17... Start Date: 06/06/22 Stop Date: 12/03/22 Status: Ordered loratadine 10 mg oral tablet 10 mg, 1, tablet, By Mouth, Daily, # 30 tablet, Refills 3, Tot. Refills 3, Maintenance, 06/06/22 16:41:00 EDT, Route to Pharmacy Electronically, [facility] [id number], Partial fill upon patient request if the prescription is f... Start Date: 06/06/22 Stop Date: 10/04/22 Status: Ordered MiraLax oral powder for reconstitution = 17 Gm, By Mouth, Daily, dissolve in water before taking, # 527 Gm, 1 Refills, Maintenance, 06/06/22 16:49:00 EDT, REC Powder, [place], [place] - [id number], Partial fill upon patient request if the prescription is for a schedule II... Start Date: 06/06/22 Status: Ordered multivitamin Multiple Vitamins oral tablet 1 tablet, By Mouth, Daily, # 90 tablet, 3 Refills, Maintenance, 06/06/22 16:40:00 EDT, [facility] [id number], Partial fill upon patient request if the [...] sleep apnea, Complex sleep apnea Confirmed Active BHN/CCA/Automatic Machines Supervisor-Tia Jarrett [phone]/Health shelter, active care coordination Confirmed Active Treatment-emergent [...] Status Never smoker entered on: 10/02/13 Sex Radiology * Vivian Monaco: PERFORM Event Display: Radiology Results Scanned Authored Date: [id number] Note * Vivian Monaco: PERFORM Event Display: Nursing Discharge Status Report Authored Date: [id number] Patient Care team information Care Team Personnel Name: Ela Beltrán RN Position: [facility] AMB Nurse Member Role: Primary Care Nurse Name: Alaina Gillette RN Position: [facility] RN Member Role: Primary Care Nurse Name: Kristyn Tapia RN Position: [facility] RN Member Role: Primary Care Nurse Name: Lorna Gentile NP Position: [facility] Associate Professional Member Role: Primary Care Nurse Address: Address: [address] [place] [address] Name: Venus Jaramillo RN Position: [facility] RN Member Role: Primary Care Nurse Name: Flor Donnelly RN Position: [facility] RN Member Role: Primary Care Nurse Name: Ruiz Matson RN Position: [facility] RN Member Role: Primary Care Nurse Name: Belle Ames RN Position: [facility] RN Member Role: Primary Care Nurse Name: Alex Rios RN Position: [facility] RN Member Role: Primary Care Nurse Name: Daniel Hernandez III, RN Position: [facility] RN Member Role: Primary Care Nurse Name: Jordi Carter MD Position: [facility] Renal MD Member Role: Lifetime Consulting Physician Address: Address: [address] [facility], [place] [address]- [place] Name: Loren Hamlin RN Position: [facility] RN Member Role: Primary Care Nurse Name: Malia Wise RN Position: [facility] RN Member Role: Primary Care Nurse Name: Jessica Dia RN Position: [facility] RN Member Role: Primary Care Nurse Name: Lamine Lin MD Position: [facility] Primary Care Physician Member Role: PCP Address: Address: [address] [facility] [place] [address]- [place] Name: Rose Abraham RN Position: [facility] Hospital Equal Opportunity Director Member Role: Primary Care Nurse Name: Vinod Botello MD Position: [facility] Psychiatry MD Member Role: Lifetime Consulting Physician Address: Address: [address] [place] [address]- Care Team Related Persons Name: MALIA HARRIS Name: KATHLEEN JACQUES Address: home [address] [place] [address] Name: VIRGIL PARKS Address: home [address] [place] [address] Name: MICHAELA MONTENEGRO Address: home UNKNOWN Name: MIGUEL PUENTES Address: home [address] [place] [address]
--- OUTSIDE RECORDS SUMMARY | 2022-08-02 17:43 | XMS_ITS | Continuity of Care Document ---
Author Name Unknown Organization [facility] Address [address] [place] [address]- Care Team Providers Care Waterproof Material Folder Name Role Phone Delia ACOSTA, Lamine Covington Primary Care Physician [facility] Date[facility]): 01/17/22 - 02/16/22 [facility] [address] [place] [address]- Allergies, Adverse Reactions, Alerts Substance Reaction Severity Status lisinopril dry cough Active Dust Mild Active Milk Products Nausea and vomiting Persistent Moderate Active cloNIDine confusion Active Immunizations Given and Recorded Vaccine Date Status Refusal Reason [id number] 12y+ bivalent booster vax 02/07/22 Given influenza [...] each, 1 Refills, Maintenance, 12/06/21 10:45:00 EDT, [facility], [facility] [id number], 177.8, cm, 12/06/21 10:26:00 EDT, Height, 136.078, kg, 09/02/21 19:37:00 EDT, Dry Weight Start Date: 12/06/21 Status: Ordered folic acid 1 mg oral tablet 1, tablet, By Mouth, Daily, # 30 tablet, Refills 5, Maintenance, 01/18/22 8:09:00 EST, Route to Pharmacy Electronically, [facility], 178, cm, 01/17/22 23:35:00 EST, Height, 101.4, kg, 01/12/22 14:14:00 EST, Dry Weight Start Date: 01/18/22 Status: Ordered gabapentin 600 mg oral tablet 1 tablet = 600 mg, By Mouth, 3 times a day, # 90 tablet, 5 Refills, Maintenance, 12/06/21 10:44:00 EDT, Tablet, [facility] [id number], Partial fill upon patient request if the prescription is for a schedule II opioid drug., 17... Start Date: 12/06/21 Stop Date: 06/04/22 Status: Ordered hydrOXYzine pamoate 50 mg oral capsule = 50 mg, By Mouth, Every 6 hours, PRN Anxiety, # 60 capsule, 0 Refills, Maintenance, 12/06/21 10:45:00 EDT, Capsule, [facility], [place] - [id number], Partial fill upon patient request if the prescription is for a schedule II opioid drug... Start Date: 12/06/21 Status: Ordered loratadine 10 mg oral tablet 10 mg, 1, tablet, By Mouth, Daily, # 30 tablet, Refills 3, Tot. Refills 3, Maintenance, 12/06/21 10:45:00 EDT, Route to Pharmacy Electronically, [facility] [id number], Partial fill upon patient request if the prescription is f... Start Date: 12/06/21 Stop Date: 04/05/22 Status: Ordered MiraLax oral powder for reconstitution = 17 Gm, By Mouth, Daily, dissolve in water before taking, # 527 Gm, 1 Refills, Maintenance, 02/07/22 10:30:00 EST, [facility], [place], [place] - [id number], Partial fill upon patient request if the [...] sleep apnea, Complex sleep apnea Confirmed Active BHN/CCA/Maintenance Clerk-Tia Jarrett [phone]/Health fdc, active care coordination Confirmed Active Treatment-emergent central [...] Team Personnel Name: Suzy Yanes RN Position: [facility] RN Member Role: Primary Care Nurse Name: Ela Beltrán RN Position: [facility] AMB Nurse Member Role: Primary Care Nurse Name: Alaina Gillette RN Position: [facility] RN Member Role: Primary Care Nurse Name: Lorna Gentile NP Position: [facility] Associate Professional Member Role: Primary Care Nurse Address: Address: [address] [place] [id number] Name: Venus Jaramillo Position: [facility] RN Member Role: Primary Care Nurse Name: Flor Donnelly RN Position: [facility] RN Member Role: Primary Care Nurse Name: Ruiz Matson RN Position: [facility] RN Member Role: Primary Care Nurse Name: Emilee Crump RN Position: [facility] RN Member Role: Primary Care Nurse Name: Belle Ames RN Position: [facility] RN Member Role: Primary Care Nurse Name: Alex Rios RN Position: [facility] RN Member Role: Primary Care Nurse Name: Daniel Hernandez III, RN Position: [facility] RN Member Role: Primary Care Nurse Name: Jordi Carter MD Position: [facility] Renal MD Member Role: Lifetime Consulting Physician Address: Address: [address] [facility] [address] [facility] [place] [address]- [place] Name: Loren Hamlin RN Position: [facility] RN Member Role: Primary Care Nurse Name: Malia Wise RN Position: [facility] RN Member Role: Primary Care Nurse Name: Jessica Dia RN Position: S RN Member Role: Primary Care Nurse Name: Kristyn Salcido RN Position: [facility] RN Member Role: Primary Care Nurse Name: Amaya Ontiveros RN Position: [facility] RN Member Role: Primary Care Nurse Name: Lamine Lin MD Position: [facility] Primary Care Physician Member Role: PCP Address: Address: [address] [place] [address]- [place] Name: Renzo Lyons RN Position: [facility] RN Member Role: Primary Care Nurse Name: Rose Abraham RN Position: [facility] Hospital Centrifuge Separator Tender Member Role: Primary Care Nurse Name: Vinod Botello MD Position: [facility] Psychiatry MD Member Role: Lifetime Consulting Physician Address: Address: [address] [place] [address]- Care Team Related Persons Name: MALIA HARRIS Name: KATHLEEN JACQUES Address: home [address] [place] [address] Name: VIRGIL PARKS Address: home [address] [place] [address] Name: MICHAELA MONTENEGRO Address: home UNKNOWN Name: MIGUEL PUENTES Address: home [address] [place] [address]
--- OUTSIDE RECORDS SUMMARY | 2022-08-02 17:43 | XMS_ITS | Continuity of Care Document ---
Author Name Unknown Organization [facility] Address [address] [place] [address]- Care Team Providers Care Pbx Mechanic Name Role Phone Delia ACOSTA, Lamine Covington Primary Care Physician [phone] [facility]): 07[facility]/19 - 08/08/19 [facility] [address] [place] [address]- [facility] Attending Physician: AdmMarsha bourne Admitting Physician: AdmtrMarsha Referring Physician: Admtr, ArRadha Allergies, Adverse Reactions, Alerts Substance Reaction Severity [...] 05/09/19 8:48:00 EDT, Route to Pharmacy Electronically, [facility] - [place], [place] -, 177, cm, 04/02/2009:47:00 EST, Height, [...] Gm, 3 Refills, Maintenance, 05/09/19 8:47:00 EDT, [place], [place], [place] -, 2 sprays Nares, Both Daily in AM, 177, cm, 04/02/19 10:47:00 EST, Height, 135, kg, 03/30/18 19:13:00 EST, Dry Weight Start Date: 05/09/19 Status: Ordered metFORMIN 500 mg oral tablet, extended release See Instructions, TAKE ONE TABLET BY MOUTH DAILY, # 30 tablet, 5 Refills, Soft Stop, 05/09/19 8:49:00 EDT, [place], [place] -, 177, cm, 04/02/19 10:47:00 EST, Height, 135, kg, 03/30/18 19:13:00 EST, Dry Weight Start Date: 05/09/19 Status: Ordered Metoprolol Tartrate 25 mg oral tablet See Instructions, TAKE 1 & 1/2 TABLETS BY MOUTH 2 (two) times a day, # 90 tablet, 3 Refills, Soft Stop, 05/09/19 8:49:00 EDT, [place], [place] -, 177, cm, 04/02/19 10:47:00 EST, Height, 135, kg, 03/30/18 19:13:00 EST, Dry Weight Start Date: 05/09/19 Status: Ordered omeprazole 20 mg oral enteric coated capsule 1 capsule = 20 mg, By Mouth, 2 times a day, # 60 capsule, 3 Refills, Soft Stop, 07/09/19 10:02:00 EDT, [place], [place] -, Dose increased 05/09/19. Label in Iranian., 177, cm, 04/02/19 10:47:00 EST, Height, 135, kg, 03/30/18 19:13:00... Start Date: 07/09/19 Status: Ordered simvastatin 10 mg oral tablet See Instructions, TAKE ONE TABLET BY MOUTH DAILY AT BEDTIME, # 30 tablet, Refills 11, Tot. Refills 11, Soft Stop, 05/09/19 8:49:00 EDT, Instructions Replace Required Details, Route to Pharmacy Electronically, [facility] - [place], [place] -, 177,... Start Date: 05/09/19 Status: [...]
--- OUTSIDE RECORDS SUMMARY | 2022-08-02 17:43 | XMS_ITS | Continuity of Care Document ---
Author Name Unknown Organization [facility] Address [address] [place] [address]- Care Team Providers Care Winch Runner Name Role Phone Lamine Lin MD Primary Care Physician [phone] [place] [facility]): [place]16/21 - 01/23/21 [facility] [address] [place] [address]- Encounter Diagnosis Pain in the abdomen(Discharge Diagnosis) - 01/16/21 Attending Physician: Gabbie Cason MD Referring Physician: Lamine Lin MD Allergies, [...] 10/23/20 10:46:00 EDT, Route to Pharmacy Electronically, [facility]/pharmacy #[id number], Partial fill upon patient request if the prescription is for a schedule II opioid drug... Start Date: 10/23/20 Status: Ordered chlorthalidone 25 mg oral tablet 12.5 mg, 0.5, tablet, By Mouth, Daily, # 15 tablet, Refills 1, Tot. Refills 1, Maintenance, 10/23/20 10:48:00 EDT, [id number] Partial fill upon patient request if the prescription is for a schedule II opioid... Start Date: 10/23/20 Status: Ordered Colace sodium 100 mg oral capsule 100 mg, 1, capsule, By Mouth, Daily in AM, # 30 capsule, Refills 1, Tot. Refills 1, Maintenance, 10/23/20 11:49:00 EDT, Route to Pharmacy Electronically, [facility]/pharmacy #[id number], Partial fill upon patientrequest if the prescription is for a schedule II op... Start Date: 10/23/20 Status: Ordered diclofenac 1% topical gel 1 application, Topically, 4 times a day, # 100 Gm, 0 Refills, Maintenance, 11/23/20 13:32:00 EDT, Gel, [facility] [place], [place] - [id number], Partial fill upon patient request if the prescription is for a schedule II opioid drug., 177, cm, 10... Start Date: 11/23/20 Status: Ordered diphenhydrAMINE 50 mg oral tablet = 50 mg, By Mouth, Every 6 hours, PRN Anxiety, # 60 tablet, 1 Refills, Maintenance, 10/23/20 10:48:00 EDT, Tablet, [facility]/pharmacy #[id number], Partial fill upon patient [...] a day, # 90 tablet, 1 Refills, [facility], 177, cm, 12/17/20 10:34:00 EDT, Height, 148, kg, 10/16/20 15:12:00 EDT, Dry Weight Start Date: 01/01/21 Status: Ordered loratadine 10 mg oral tablet 1, tablet, By Mouth, Daily, # 30 tablet, Refills 1, Route to Pharmacy Electronically, [facility], 177, cm, 12/17/20 10:34:00 EDT, Height, 148, kg, 10/16/20 15:12:00 EDT, Dry Weight Start Date: 01/01/21 Status: Ordered losartan 25 mg oral tablet 25 mg, 1, tablet, By Mouth, Daily, # 30 tablet, Refills 1, Tot. Refills 1, Maintenance, 10/23/20 10:47:00 EDT, Route to Pharmacy Electronically, [facility]/pharmacy #[id number], Partial fill upon patient request if the prescription is for a schedule II opioid drug... Start Date: 10/23/20 Status: Ordered metFORMIN 500 mg oral tablet, extended release 1 tablet = 500 mg, By Mouth, Daily, # 30 tablet, 1 Refills, Maintenance, 10/23/20 10:47:00 EDT, ER Tablet, [facility]/pharmacy #[id number], Partial fill upon patient request if the prescription is for a schedule II opioid drug., 177, cm, 10/22/20 21:57:00 EDT, Hei... Start Date: 10/23/20 Status: Ordered MiraLax oral powder for reconstitution = 17 Gm, By Mouth, Daily, # 255 Gm, 1 Refills, Maintenance, 10/23/20 10:49:00 EDT, [facility]/pharmacy #[id number], Partial fill upon patient [...] 10/23/20 10:48:00 EDT, Route to Pharmacy Electronically, [facility]/pharmacy #[id number], Partial fill upon patientrequest if the prescription is for a schedule II op... Start Date: 10/23/20 Status: Ordered pantoprazole 40 mg oral delayed release tablet 1 tablet, By Mouth, Daily, # 30 tablet, 1 Refills, 177, cm, 12/17/20 10:34:00 EDT, Height, 148, kg,10/16/20 15:12:00 EDT, Dry Weight Start Date: 01/01/21 Status: Ordered Pyridium 100 mg oral tablet 1 tablet = 100 mg, By Mouth, 3 times a day, for 7 days, # 21 tablet, 0 Refills, Acute 01/25/21 13:45:00 EST, 01/18/21 13:45:00 EST, Tablet, [place], [place] - [id number], Partial fill upon patient request if the prescription is for a... Start Date: 01/18/21 Stop Date: 01/25/21 Status: Ordered RisperDAL 2 mg oral tablet 2 mg, 1, tablet, By Mouth, Daily, # 30 tablet, Refills 1, Tot. Refills 1, Maintenance, 10/23/20 10:51:00 EDT, [id number], Partial fill upon patient request if the prescription is for a schedule II opioid drug.... Start Date: 10/23/20 Status: Ordered risperiDONE 3 mg oral tablet 3 mg, 1, tablet, By Mouth, Daily at bedtime, # 30 tablet, Refills 1, Tot. Refills 1, Maintenance, 10/23/20 10:52:00 EDT, [id number], Partial fill upon patient request if the prescription is for a schedule II o... Start Date: 10/23/20 Status: Ordered Tylenol 8 HR Arthritis Pain 650 mg oral tablet, extended release 1 tablet = 650 mg, By Mouth, Every 8 hours, PRN as needed for pain, # 50 tablet, 0 Refills, Maintenance, 12/17/20 15:15:00 EDT, ER Tablet, [place], [place] - [id number], Partial fillupon patient request if the prescription [...] sleep apnea, Com plex sleep apnea(Confirmed) Active BHN/CCA/Music Promoter-Remedios MárquezGvlwrnz-[phone]/Health fdc, active care coordination(Confirmed) Active Severe obesity(Confirmed) Active [...] Diagnosis Diagnosis Type Effective Dates Health Status Cl inical Service Informant Pain in the abdomen Discharge Diagnosis 01/16/21 Vital Signs Most recent to oldest [Reference Range]: 1 Height 177 cm (01/16/21 12:24 PM) Oxygen Saturation [94-100 %] 96 % (01/16/21 12:24 PM) Pulse Rate [55-90 bpm] 91 bpm *H* (01/16/21 12:24 PM) Blood Pressure [90-138/55-84 mm Hg] 154/ 89mm Hg *H* (01/16/21 12:24 PM) Temperature [96.8-100.4 DegF] 99.1 DegF (01/16/21 12:24 PM) Mode of Delivery (Oxygen) Room air (01/16/21 12:24 PM) Blood pressure sites Arm, right (01/16/21 12:24 PM) Temperature Route Temporal (01/16/21 12:24 PM) Social History Social History Type Response Smoking Status Never smoker entered on: 10/02/13 Sex
--- OUTSIDE RECORDS SUMMARY | 2022-08-02 17:43 | XMS_ITS | Continuity of Care Document ---
Author Name Unknown Organization [facility] Address [address] [place] [address]- Care Team Providers Care Operations Technician Name Role Phone Delia ACOSTA, Lamine Covington Primary Care Physician [facility] Date[facility]s): 10/17/19 - 10/17/[address] [address]- [facility] Encounter Diagnosis Chest pain(Final) - 10/17/19 Discharge Disposition: A-D/C Home Attending Physician: Minesh De Guzman MD Admitting [...] 15:33:00 EDT, Aerosol, Route to Pharmacy Electronically, [id number], [facility] [place], [place] - [id number], 177, cm... Start Date: 10/15/19 Status: Ordered amLODIPine 5 mg oral tablet 5 mg, 1, tablet, By Mouth, Daily, # 30 tablet, Refills 11, Tot. Refills 11, Maintenance, 05/09/19 8:48:00 EDT, Route to Pharmacy Electronically, [place], [place] -, 177, cm, 04/02/2009:47:00 EST, Height, 135, kg, 03/30/18 19:13:00 ES... Start Date: 05/09/19 Status: Ordered benzonatate 100 mg oral capsule 1 capsule = 100 mg, By Mouth, 3 times a day, for 7 days, # 21 capsule, 0 Refills, Acute 10/24/19 20:09:00 EDT, 10/17/19 20:09:00 EDT, Capsule, [facility]/pharmacy #[id number], 177, cm, 10/15/19 14:42:00 EDT, Height, 135, kg, 03/30/18 19:13:00 EST, Dry Weight Start Date: 10/17/19 Stop Date: 10/24/19 Status: Ordered Coricidin HBP Chest Congestion & Cough 10 mg-200 mg oral capsule 1 capsule, By Mouth, Every 4 hours, PRN for cough, not to exceed 6 doses/day. Tajik label, # 60 capsule, 0 Refills, Maintenance, 10/15/19 15:34:00 EDT, Capsule, [place], [place] - [id number], 1 capsule By Mouth Every 4 hours,PRN:for... [...] Gm, 3 Refills, Maintenance, 08/28/19 8:53:00 EDT, [place], [place], [place] -, 2 sprays Nares, Both Daily [...] 5 Refills, Soft Stop, 05/09/19 8:49:00 EDT, [facility] [place], [place] -, 177, cm, 04/02/19 10:47:00 EST, Height, 135, kg, 03/30/18 19:13:00 EST, Dry Weight Start Date: 05/09/19 Status: Ordered Metoprolol Tartrate 25 mg oral tablet See Instructions, TAKE 1 & 1/2 TABLETS BY MOUTH 2 (two) times a day, # 90 tablet, 3 Refills, Soft Stop, 05/09/19 8:49:00 EDT, [place], [place] -, 177, cm, 04/02/19 10:47:00 EST, Height, 135, kg, 03/30/18 19:13:00 EST, Dry Weight Start Date: 05/09/19 Status: Ordered omeprazole 20 mg oral enteric coated capsule 1 capsule = 20 mg, By Mouth, 2 times a day, # 60 capsule, 3 Refills, Soft Stop, 07/09/19 10:02:00 EDT, [place], [place] -, Dose increased 05/09/19. Label in Tajik., 177, cm, 04/02/19 10:47:00 EST, Height, 135, kg, 03/30/18 19:13:00... Start Date: 07/09/19 Status: Ordered simvastatin 10 mg oral tablet See Instructions, TAKE ONE TABLET BY MOUTH DAILY AT BEDTIME, # 30 tablet, Refills 11, Tot. Refills 11, Soft Stop, 05/09/19 8:49:00 EDT, Instructions Replace Required Details, Route to Pharmacy Electronically, [place], [place] -, 177,... Start Date: 05/09/19 Status: [...] Exam Date Time Procedure Performing Provider Status 10/17/19 4:28 PM Chest 2 Views Frontal and Lat Erin Masters; Darrel (Verified) Notes: (Chest 2 Views Frontal and Lat) Reason For Exam: Fever;Cough RESULT: Chest 2 Views Frontal and Lat Chest 2 Views Frontal and Lat Hx of Present Illness: coughing, sob, Reason: Cough; Fever; COMPARISON: 08/08/2011, 12/09/2009 FINDINGS: LINES AND TUBES: None. LUNGS AND PLEURA: Clear lungs. Normal pulmonary vascularity. No pleural effusion. No pneumothorax. HEART, MEDIASTINUM AND ZAIRE: Heart is normal in size. Normal mediastinal and hilar contour. BONES AND SOFT TISSUES: No acute abnormality. IMPRESSION: No acute abnormality. I have personally reviewed the images and I agree with this report. WSN: [id number] Ordering Physician: Foster Carter Dictated By: Jason Aparicio DO Dictated Date/Time: 10/17/19 4:35 pm Reviewed By: Shmuel Caldera MD Signed By: Shmuel Caldera MD Signed Date/Time: 10/17/19 4:40 pm Transcribed By: TIP Transcribed Date/Time: 10/17/19 4:30 pm Vital Signs Most recent to oldest [Reference Range]: 1 2 Oxygen Saturation [94-100 %] 94 % (10/17/19 7:07 PM) 96 % (10/17/19 4:33 PM) Pulse Rate [55-90 bpm] 87 bpm (10/17/19 7:07 PM) 93 bpm *H* (10/17/19 4:33 PM) Blood Pressure [90-138/55-84 mm Hg] 133/ 66mm Hg (10/17/19 7:07 PM) 148/84mm Hg *H* (10/17/19 4:33 PM) Respiratory Rate [16-30 br/min] 19 br/mi n (10/17/19 7:07 PM) 20 br/min (10/17/19 4:33 PM) Temperature [96.8-100.4 DegF] 98.5 DegF (10/17/19 7:07 PM) 99.8 DegF (10/17/19 4:33 PM) Mode of Delivery (Oxygen) Room air (10/17/19 7:07 PM) Room air (10/17/19 4:33 PM) Blood pressure sites Arm, left (10/17/19 7:07 PM) Arm, left (10/17/19 4:33 PM) Temperature Route Oral (10/17/19 7:07 PM) Oral (10/17/19 4:33 PM) Social History Social History Type Response Smoking Status Never smoker entered on: 10/02/13 Sex
--- OUTSIDE RECORDS SUMMARY | 2022-08-02 17:43 | XMS_ITS | Continuity of Care Document ---
Author Name Unknown Organization [facility] Address [address] [place] [address]- Care Team Providers Care Edge Finisher Name Role Phone Lamine Lin MD Primary Care Physician [phone] Encounter [facility] Date(s): 12/17/20 - 12/17/[address] [address]- Discharge Disposition: A-D/C Walkout Attending Physician: Not on Staff, Attending MD Admitting Physician: Not on Staff, Admitting MD Referring Physician: Not on Staff, Referring [...] 10/23/20 10:46:00 EDT, Route to Pharmacy Electronically, [facility]/pharmacy #[id number], Partial fill upon patient request if the prescription is for a schedule II opioid drug... Start Date: 10/23/20 Status: Ordered chlorthalidone 25 mg oral tablet 12.5 mg, 0.5, tablet, By Mouth, Daily, # 15 tablet, Refills 1, Tot. Refills 1, Maintenance, 10/23/20 10:48:00 EDT, Route to Pharmacy Electronically, [facility]/pharmacy #[id number], Partial fill upon patient request if the prescription is for a schedule II opioid... Start Date: 10/23/20 Status: Ordered Colace sodium 100 mg oral capsule 100 mg, 1, capsule, By Mouth, Daily in AM, # 30 capsule, Refills 1, Tot. Refills 1, Maintenance, 10/23/20 11:49:00 EDT, Route to Pharmacy Electronically, [facility]/pharmacy #[id number], Partial fill upon patientrequest if the prescription is for a schedule II op... Start Date: 10/23/20 Status: Ordered diclofenac 1% topical gel 1 application, Topically, 4 times a day, # 100 Gm, 0 Refills, Maintenance, 11/23/20 13:32:00 EDT, Gel, [place], [place] - [id number], Partial fill upon patient request if the prescription is for a schedule II opioid drug., 177, cm, 10... Start Date: 11/23/20 Status: Ordered diphenhydrAMINE 50 mg oral tablet = 50 mg, By Mouth, Every 6 hours, PRN Anxiety, # 60 tablet, 1 Refills, Maintenance, 10/23/20 10:48:00 EDT, Tablet, [facility]/pharmacy #[id number], Partial fill upon patient request if the prescription is for a schedule II opioid drug., 177, cm, 10/22/20 21:57:00... Start Date: 10/23/20 Status: Ordered folic acid 1 mg oral tablet 1 mg, 1, tablet, By Mouth, Daily, # 30 tablet, Refills 1, Tot. Refills 1, Maintenance, 10/23/20 10:48:00 EDT, Route to Pharmacy Electronically, [facility]/pharmacy #[id number], Partial fill upon patient request if the prescription is for a schedule II opioid drug.... Start Date: 10/23/20 Status: Ordered gabapentin 600 mg oral tablet 1 tablet = 600 mg, By Mouth, 3 times a day, # 90 tablet, 1 Refills, Maintenance, 10/23/20 10:53:00 EDT, [facility]/pharmacy #[id number], Partial fill upon patient request [...] 10/23/20 10:47:00 EDT, Route to Pharmacy Electronically, [facility]/pharmacy #[id number], Partial fill upon patient request [...] Gm, 1 Refills, Maintenance, 10/23/20 10:49:00 EDT, [facility]/pharmacy #[id number], Partial fill upon patient request [...] 10/23/20 10:48:00 EDT, Route to Pharmacy Electronically, [facility]/pharmacy #[id number], Partial fill upon patientrequest if [...] 10/23/20 10:51:00 EDT, Route to Pharmacy Electronically, [facility]/pharmacy #[id number], Partial fill upon patient request if the prescription is for a schedule II opioid drug.... Start Date: 10/23/20 Status: Ordered risperiDONE 3 mg oral tablet 3 mg, 1, tablet, By Mouth, Daily at bedtime, # 30 tablet, Refills 1, Tot. Refills 1, Maintenance, 10/23/20 10:52:00 EDT, Route to Pharmacy Electronically, [facility]/pharmacy #[id number], Partial fill upon patient request if the prescription is for a schedule II o... Start Date: 10/23/20 Status: Ordered Tylenol 8 HR Arthritis Pain 650 mg oral tablet, extended release 1 tablet = 650 mg, By Mouth, Every 8 hours, PRN as needed for pain, # 50 tablet, 0 Refills, Maintenance, 12/17/20 15:15:00 EDT, ER Tablet, [place], [place] - [id number], Partial fillupon patient request if the prescription [...] sleep apnea, Com plex sleep apnea(Confirmed) Active BHN/CCA/Rn Cardiovascular-Remedios MárquezEvfsqkq-[phone]/Health longterm, active care coordination(Confirmed) Active Treatment-emergent central s [...] 1 Oxygen Saturation [94-100 %] 97 % (12/17/20 12:19 PM) Pulse Rate [55-90 bpm] 87 bpm (12/17/20 12:19 PM) Blood Pressure [90-138/55-84 mm Hg] 144/ 77mm Hg *H* (12/17/20 12:19 PM) Respiratory Rate [16-30 br/min] 20 br/mi n (12/17/20 12:19 PM) Temperature [96.8-100.4 DegF] 97.3 DegF (12/17/20 12:19 PM) Mode of Delivery (Oxygen) Room air (12/17/20 12:19 PM) Blood pressure sites Arm, right (12/17/20 12:19 PM) Temperature Route Oral (12/17/20 12:19 PM) Social History Social History Type Response Smoking Status Never smoker entered on: 10/02/13 Sex
--- OUTSIDE RECORDS SUMMARY | 2022-08-02 17:43 | XMS_ITS | Continuity of Care Document ---
Author Name Unknown Organization [facility] Address [address] [place] [address]- Care Team Providers Care Auricular Acupuncturist Name Role Phone Delia ACOSTA, Lamine Covington Primary Care Physician [phone] Encounter [facility] [place] Date(s): 05/01/19 - 08/29/19 [facility] [address] [place] [address]- [facility] Attending Physician: Yogesh ACOSTA, Opal Maldonado Admitting Physician: Yogesh ACOSTA, Opal Maldonado Allergies, Adverse Reactions, Alerts Substance Reaction Severity [...] Route to Pharmacy Electronically, [facility] [place], [place] -, 177, cm, 04/02/2009:47:00 EST, Height, 135, kg, 03/30/18 19:13:00 ES... Start Date: 05/09/19 Status: Ordered Delsym 12 Hour Cough Relief 30 mg/5 mL oral suspension, extended release 10 mL = 60 mg, By Mouth, Every 12 hours, for 5 days, with plenty of water. Moroccan label please., #120 mL, 0 Refills, Acute 09/01/19 13:59:00 EDT, 08/27/19 13:59:00 EDT, [place], [place] -, 177, cm, 07/29/19 13:56:00 EDT, [...] Gm, 3 Refills, Maintenance, 08/28/19 8:53:00 EDT, [place], [place], [place] -, 2 sprays Nares, Both Daily in AM, 177, cm, 07/29/19 13:56:00 EDT, Height, 135, kg, 03/30/18 19:13:00 EST, Dry Weight Start Date: 08/28/19 Status: Ordered metFORMIN 500 mg oral tablet, extended release See Instructions, TAKE ONE TABLET BY MOUTH DAILY, # 30 tablet, 5 Refills, Soft Stop, 05/09/19 8:49:00 EDT, [place], [place] -, 177, cm, 04/02/19 10:47:00 EST, Height, 135, kg, 03/30/18 19:13:00 EST, Dry Weight Start Date: 05/09/19 Status: Ordered Metoprolol Tartrate 25 mg oral tablet See Instructions, TAKE 1 & 1/2 TABLETS BY MOUTH 2 (two) times a day, # 90 tablet, 3 Refills, Soft Stop, 05/09/19 8:49:00 EDT, [place], [place] -, 177, cm, 04/02/19 10:47:00 EST, Height, 135, kg, 03/30/18 19:13:00 EST, Dry Weight Start Date: 05/09/19 Status: Ordered omeprazole 20 mg oral enteric coated capsule 1 capsule = 20 mg, By Mouth, 2 times a day, # 60 capsule, 3 Refills, Soft Stop, 07/09/19 10:02:00 EDT, [place], [place] -, Dose increased 05/09/19. Label in Moroccan., 177, cm, 04/02/19 10:47:00 EST, Height, 135, kg, 03/30/18 19:13:00... Start Date: 07/09/19 Status: Ordered simvastatin 10 mg oral tablet See Instructions, TAKE ONE TABLET BY MOUTH DAILY AT BEDTIME, # 30 tablet, Refills 11, Tot. Refills 11, Soft Stop, 05/09/19 8:49:00 EDT, Instructions Replace Required Details, Route to Pharmacy Electronically, [place], [place] -, 177,... Start Date: 05/09/19 Status: [...] oldest [Reference Range]: 1 Height 177 cm (07/29/19 1:56 PM) Weight 144 kg (07/29/19 1:56 PM) Body Mass Index [18.5-24.99] 45.96 *>HHI* (07/29/19 1:56 PM) Social History Social History Type Response Smoking Status Never smoker entered on: 10/02/13 Sex
--- OUTSIDE RECORDS SUMMARY | 2022-08-02 17:43 | XMS_ITS | Continuity of Care Document ---
Author Name Unknown Organization [facility] Address [address] [place] [address]- Care Team Providers Care Greens Keeper Name Role Phone Lamine Lin MD Primary Care Physician Encounter [facility] [place] Date(s): 01/16/21 - 01/17/[address] [address]- Encounter Diagnosis Dysuria(Final) - 01/17/21 Discharge Disposition: A-D/C Home Attending Physician: Hiram Saucedo DO Admitting Physician: Hiram Saucedo DO Referring Physician: Not on Staff, Referring [...] 10:46:00 EDT, Route to Pharmacy Electronically, [facility]/pharmacy #[id number], Partial fill upon patient request if the prescription is for a schedule II opioid drug... Start Date: 10/23/20 Status: Ordered chlorthalidone 25 mg oral tablet 12.5 mg, 0.5, tablet, By Mouth, Daily, # 15 tablet, Refills 1, Tot. Refills 1, Maintenance, 10/23/20 10:48:00 EDT, Route to Pharmacy Electronically, [facility]/pharmacy #[id number], Partial fill upon patient request if the prescription is for a schedule II opioid... Start Date: 10/23/20 Status: Ordered Colace sodium 100 mg oral capsule 100 mg, 1, capsule, By Mouth, Daily in AM, # 30 capsule, Refills 1, Tot. Refills 1, Maintenance, 10/23/20 11:49:00 EDT, Route to Pharmacy Electronically, [facility]/pharmacy #[id number], Partial fill upon patientrequest if the prescription is for a schedule II op... Start Date: 10/23/20 Status: Ordered diclofenac 1% topical gel 1 application, Topically, 4 times a day, # 100 Gm, 0 Refills, Maintenance, 11/23/20 13:32:00 EDT, Gel, [place], [place] - [phone], Partial fill upon patient request if the prescription is for a schedule II opioid drug., 177, cm, 10... Start Date: 11/23/20 Status: Ordered diphenhydrAMINE 50 mg oral tablet = 50 mg, By Mouth, Every 6 hours, PRN Anxiety, # 60 tablet, 1 Refills, Maintenance, 10/23/20 10:48:00 EDT, Tablet, [facility]/pharmacy #[id number], Partial fill upon patient request if the prescription is for a schedule II opioid drug., 177, cm, 10/22/20 21:57:00... Start Date: 10/23/20 Status: Ordered folic acid 1 mg oral tablet 1, tablet, By Mouth, Daily, # 30 tablet, Refills 1, Route to Pharmacy Electronically, [facility], 177, cm, 12/17/20 10:34:00 EDT, Height, 148, kg, 10/16/20 15:12:00 EDT, Dry Weight Start Date: 01/01/21 Status: Ordered gabapentin 600 mg oral tablet 1 tablet, By Mouth, 3 times a day, # 90 tablet, 1 Refills, [facility], 177, cm, 12/17/20 10:34:00 EDT, Height, 148, kg, 10/16/20 15:12:00 EDT, Dry Weight Start Date: 01/01/21 Status: Ordered loratadine 10 mg oral tablet 1, tablet, By Mouth, Daily, # 30 tablet, Refills 1, Route to Pharmacy Electronically, [facility], 177, cm, 12/17/20 10:34:00 EDT, Height, 148, kg, 10/16/20 15:12:00 EDT, Dry Weight Start Date: 01/01/21 Status: Ordered losartan 25 mg oral tablet 25 mg, 1, tablet, By Mouth, Daily, # 30 tablet, Refills 1, Tot. Refills 1, Maintenance, 10/23/20 10:47:00 EDT, Route to Pharmacy Electronically, [facility]/pharmacy #[id number], Partial fill upon patient request if [...] 10:51:00 EDT, Route to Pharmacy Electronically, [facility]/pharmacy #[id number], Partial fill upon patient request if the prescription is for a schedule II opioid drug.... Start Date: 10/23/20 Status: Ordered risperiDONE 3 mg oral tablet 3 mg, 1, tablet, By Mouth, Daily at bedtime, # 30 tablet, Refills 1, Tot. Refills 1, Maintenance, 10/23/20 10:52:00 EDT, Route to Pharmacy Electronically, [facility]/pharmacy #[id number], Partial fill upon patient request if the prescription is for a schedule II o... Start Date: 10/23/20 Status: Ordered Tylenol 8 HR Arthritis Pain 650 mg oral tablet, extended release 1 tablet = 650 mg, By Mouth, Every 8 hours, PRN as needed for pain, # 50 tablet, 0 Refills, Maintenance, 12/17/20 15:15:00 EDT, ER Tablet, [place], [place] - [id number], Partial fillupon patient request if the prescription [...] sleep apnea, Com plex sleep apnea(Confirmed) Active BHN/CCA/Pantograph Machine Operator-Remedios MárquezGuplstq-[phone]/Health [facility], active care coordination(Confirmed) Active Treatment-emergent central s [...] the findings. Signature Line Dictated By: Catrachita Sahh MD Dictated Date/Time: 02/25/11 11:07 a Vital Signs Most recent to oldest [Reference Range]: 1 2 3 Oxygen Saturation [94-100 %] 96 % (01/17/21 8:47 AM) 99 % (01/17/21 6:34 AM) 96 % (01/17/21 2:49 AM) Pulse Rate [55-90 bpm] 76 bpm (01/17/21 8:47 AM) 88 bpm (01/17/21 6:34 AM) 92 bpm *H* (01/17/21 2:49 AM) Blood Pressure [90-138/55-84 mm Hg] 129/82mm Hg (01/17/21 8:47 AM) 137/79mm Hg (01/17/21 6:34 AM) 131/82mm Hg (01/17/21 2:49 AM) Respiratory Rate [16-30 br/min] 16 br/min (01/17/21 8:47 AM) 16 br/min (01/17/21 6:34 AM) 16 br/min (01/17/21 2:49 AM) Temperature [96.8-100.4 DegF] 97.6 DegF (01/17/21 2:49 AM) 98.3 DegF (01/16/21 10:49 PM) Mode of Delivery (Oxygen) Room air (01/17/21 8:47 AM) Room air (01/17/21 6:34 AM) Room air (01/17/21 2:49 AM) Blood pressure sites Arm, left (01/17/21 8:47 AM) Arm, right (01/17/21 6:34 AM) Arm, right (01/17/21 2:49 AM) Temperature Route Oral (01/17/21 2:49 AM) Oral (01/16/21 10:49 PM) Social History Social History Type Response Smoking Status Never smoker entered on: 10/02/13 Sex
--- OUTSIDE RECORDS SUMMARY | 2022-08-02 17:43 | XMS_ITS | Continuity of Care Document ---
Author Name Unknown Organization [facility] Address [address] [place] [address]- Care Team Providers Care Ventilation Worker Name Role Phone Delia ACOSTA, Lamine Covington Primary Care Physician Encounter [facility] [place] Date(s): 01/15/21 - 02/14/21 [facility] [address], [place] [address] Allergies, Adverse Reactions, Alerts Substance Reaction [...] 10/23/20 10:46:00 EDT, Route to Pharmacy Electronically, [facility]/pharmacy #[id number], Partial fill upon patient request if the prescription is for a schedule II opioid drug... Start Date: 10/23/20 Status: Ordered chlorthalidone 25 mg oral tablet 12.5 mg, 0.5, tablet, By Mouth, Daily, # 15 tablet, Refills 1, Tot. Refills 1, Maintenance, 10/23/20 10:48:00 EDT, Route to Pharmacy Electronically, [facility]/pharmacy #[id number], Partial fill upon patient request if the prescription is for a schedule II opioid... Start Date: 10/23/20 Status: Ordered Colace sodium 100 mg oral capsule 100 mg, 1, capsule, By Mouth, Daily in AM, # 30 capsule, Refills 1, Tot. Refills 1, Maintenance, 10/23/20 11:49:00 EDT, Route to Pharmacy Electronically, [facility]/pharmacy #[id number], Partial fill upon patientrequest if the prescription is for a schedule II op... Start Date: 10/23/20 Status: Ordered diclofenac 1% topical gel 1 application, Topically, 4 times a day, # 100 Gm, 0 Refills, Maintenance, 11/23/20 13:32:00 EDT, Gel, [facility] [place], [place] - [phone], Partial fill upon patient request if the prescription is for a schedule II opioid drug., 177, cm, 10... Start Date: 11/23/20 Status: Ordered diphenhydrAMINE 50 mg oral tablet = 50 mg, By Mouth, Every 6 hours, PRN Anxiety, # 60 tablet, 1 Refills, Maintenance, 10/23/20 10:48:00 EDT, Tablet, [facility]/pharmacy #[id number], Partial fill upon patient request if the prescription is for a schedule II opioid drug., 177, cm, 10/22/20 21:57:00... Start Date: 10/23/20 Status: Ordered folic acid 1 mg oral tablet 1, tablet, By Mouth, Daily, # 30 tablet, Refills 1, Route to Pharmacy Electronically, [facility], 177, cm, 12/17/20 10:34:00 EDT, Height, 148, kg, 10/16/20 15:12:00 EDT, Dry Weight Start Date: 01/01/21 Status: Ordered gabapentin 600 mg oral tablet 1 tablet, By Mouth, 3 times a day, # 90 tablet, 1 Refills, [facility], 177, cm, 12/17/20 10:34:00 EDT, Height, 148, kg, 10/16/20 15:12:00 EDT, Dry Weight Start Date: 01/01/21 Status: Ordered loratadine 10 mg oral tablet 1, tablet, By Mouth, Daily, # 30 tablet, Refills 1, Route to Pharmacy Electronically, [facility], 177, cm, 12/17/20 10:34:00 EDT, Height, 148, kg, 10/16/20 15:12:00 EDT, Dry Weight Start Date: 01/01/21 Status: Ordered losartan 25 mg oral tablet 25 mg, 1, tablet, By Mouth, Daily, # 30 tablet, Refills 1, Tot. Refills 1, Maintenance, 10/23/20 10:47:00 EDT, Route to Pharmacy Electronically, [facility]/pharmacy #[id number], Partial fill upon patient request if the prescription is for a schedule II opioid drug... Start Date: 10/23/20 Status: Ordered MetFORMIN (Eqv-Glucophage XR) 500 mg oral tablet, extended release 1 tablet, By Mouth, Daily, # 30 tablet, 11 Refills, [facility], 177, cm, 02/04/21 10:29:00 EST, Height, 148, kg, 10/16/20 15:12:00 EDT, Dry Weight Start Date: 02/10/21 Status: Ordered MiraLax oral powder for reconstitution = 17 Gm, By Mouth, Daily, # 255 Gm, 1 Refills, Maintenance, 10/23/20 10:49:00 EDT, [facility]/pharmacy #[id number], Partial fill upon patient request [...] 10/23/20 10:51:00 EDT, Route to Pharmacy Electronically, [facility]/pharmacy #[id number], Partial fill upon patient request if the prescription is for a schedule II opioid drug.... Start Date: 10/23/20 Status: Ordered risperiDONE 3 mg oral tablet 3 mg, 1, tablet, By Mouth, Daily at bedtime, # 30 tablet, Refills 1, Tot. Refills 1, Maintenance, 10/23/20 10:52:00 EDT, Route to Pharmacy Electronically, [facility]/pharmacy #[id number], Partial fill upon patient request if the prescription is for a schedule II o... Start Date: 10/23/20 Status: Ordered Tylenol 8 HR Arthritis Pain 650 mg oral tablet, extended release 1 tablet = 650 mg, By Mouth, Every 8 hours, PRN as needed for pain, # 50 tablet, 0 Refills, Maintenance, 12/17/20 15:15:00 EDT, ER Tablet, [facility] [place], [place] - [phone], Partial fillupon patient request if the prescription [...] sleep apnea, Com plex sleep apnea(Confirmed) Active BHN/CCA/Fugitive Investigator-Remedios [id number]-[phone]/Health [facility], active care coordination(Confirmed) Active Severe obesity(Confirmed) Active [...]
--- OUTSIDE RECORDS SUMMARY | 2022-08-02 17:43 | XMS_ITS | Continuity of Care Document ---
Author Name Unknown Organization [facility] Address [address] [place] [id number]- Care Team Providers Care Ice Cream Dispenser Name Role Phone Delia ACOSTA, Lamine Covington Primary Care Physician Encounter [facility] R [id number] Date(s): 10/01/19 - 10/31/19 [facility] [address] [address]- [facility] Attending Physician: Admtr, [id number] Admitting Physician: Admtr, Ar8 Referring Physician: Admtr, Ar8 Allergies, Adverse Reactions, [...] 15:33:00 EDT, Aerosol, Route to Pharmacy Electronically, [id number], [place], [place] - [id number], 177, cm... Start Date: 10/15/19 Status: Ordered amLODIPine 5 mg oral tablet 5 mg, 1, tablet, By Mouth, Daily, # 30 tablet, Refills 11, Tot. Refills 11, Maintenance, 05/09/19 8:48:00 EDT, Route to Pharmacy Electronically, [place], [place] -, 177, cm, 04/02/2009:47:00 EST, Height, 135, kg, 03/30/18 19:13:00 ES... Start Date: 05/09/19 Status: Ordered Coricidin HBP Chest Congestion & Cough 10 mg-200 mg oral capsule 1 capsule, By Mouth, Every 4 hours, PRN for cough, not to exceed 6 doses/day. Palauan label, # 60 capsule, 0 Refills, Maintenance, 10/15/19 15:34:00 EDT, Capsule, [place], [place] - [id number], 1 capsule By Mouth Every 4 hours,PRN:for... [...] Gm, 3 Refills, Maintenance, 08/28/19 8:53:00 EDT, [place], [place], [place] -, 2 sprays Nares, Both Daily [...] 5 Refills, Soft Stop, 05/09/19 8:49:00 EDT, [place], [place] -, 177, cm, 04/02/19 10:47:00 EST, Height, 135, kg, 03/30/18 19:13:00 EST, Dry Weight Start Date: 05/09/19 Status: Ordered Metoprolol Tartrate 25 mg oral tablet See Instructions, TAKE 1 & 1/2 TABLETS BY MOUTH 2 (two) times a day, # 90 tablet, 3 Refills, Soft Stop, 05/09/19 8:49:00 EDT, [place], [place] -, 177, cm, 04/02/19 10:47:00 EST, Height, 135, kg, 03/30/18 19:13:00 EST, Dry Weight Start Date: 05/09/19 Status: Ordered omeprazole 20 mg oral enteric coated capsule 1 capsule = 20 mg, By Mouth, 2 times a day, # 60 capsule, 3 Refills, Soft Stop, 07/09/19 10:02:00 EDT, [place], [place] -, Dose increased 05/09/19. Label in Palauan., 177, cm, 04/02/19 10:47:00 EST, Height, 135, kg, 03/30/18 19:13:00... Start Date: 07/09/19 Status: Ordered simvastatin 10 mg oral tablet See Instructions, TAKE ONE TABLET BY MOUTH DAILY AT BEDTIME, # 30 tablet, Refills 11, Tot. Refills 11, Soft Stop, 05/09/19 8:49:00 EDT, Instructions Replace Required Details, Route to Pharmacy Electronically, [facility] [place], [place] -, 177,... Start Date: 05/09/19 Status: [...]
--- OUTSIDE RECORDS SUMMARY | 2022-08-02 17:43 | XMS_ITS | Continuity of Care Document ---
Author Name Unknown Organization [facility] Address [address] [place] [address]- Care Team Providers Care Manager Investment Name Role Phone Delia ACOSTA, Lamine Covington Primary Care Physician Encounter [facility] Date(s): 02/24/20 - 03/25/20 [facility] [address] [place] [address]- Allergies, Adverse Reactions, Alerts No Known Medication [...] 18:13:00 EST, Aerosol, Route to Pharmacy Electronically, [id number], [facility] [place], [place] - [id number], 177, cm... Start Date: 01/02/20 Status: Ordered amLODIPine 5 mg oral tablet 5 mg, 1, tablet, By Mouth, Daily, # 30 tablet, Refills 11, Tot. Refills 11, Maintenance, 02/03/20 16:45:00 EST, Route to Pharmacy Electronically, [facility] [place] - [id number], 178, cm, 01/28/20 6:28:00 EST, Height, 158, [...] 3 Refills, Maintenance, 02/24/20 11:16:00 EST, Tablet, [facility], [place] - [id number], Label in Italian., 178, cm, 02/04/20 15:21:00 EST, Height, 158, kg, 01/07/20 14:48:00 EST, Dry Weight Start Date: 02/24/20 Status: Ordered chlorthalidone 25 mg oral tablet 12.5 mg, 0.5, tablet, By Mouth, Daily, # 15 tablet, Refills 5, Tot. Refills 5, Maintenance, 02/04/20 15:34:00 EST, Route to Pharmacy Electronically, [facility], [place] - [id number], Partial fill upon patient request if the [...] mL, 0 Refills, Maintenance, 02/24/20 11:15:00 EST, [place], [facility], [place] - [id number], 1 sprays Nares, Both 2 times a day, 178, cm, 02/04/20 15:21:00 EST, Height, 158, kg, 01/07/20 14:48:0... Start Date: 02/24/20 Status: Ordered Flovent Diskus 100 mcg/inh inhalation powder 1 puffs, Inhalation, 2 times a day, # 60 each, 0 Refills, Maintenance, 03/03/20 10:49:00 EST, Powder, [facility] [id number], Partial fill upon patient request if the prescription is for a schedule II opioid drug., 1 puffs Inha... Start Date: 03/03/20 Status: Ordered Gas-X with Maalox 250 mg-62.5 mg oral capsule 2 capsule, By Mouth, Every 2 hours, PRN for indigestion, # 48 capsule, 0 Refills, Acute 04/13/20 14:59:00 EST, 03/13/20 14:59:00 EST, Capsule, [facility] [id number], Partial fill upon patient request if the prescription is for... Start Date: 03/13/20 Stop Date: 04/13/20 Status: Ordered GuaiFENesin DM 20 mg-200 mg/10 mL oral liquid 10 mL, By Mouth, Every 4 hours, PRN as needed for cough, not to exceed 6 doses/day, # 120 mL, 0 Refills, Maintenance, 03/03/20 11:05:00 EST, Liquid, [place], [place] - [id number], Partial fill upon patient request if the prescription... Start Date: 03/03/20 Status: Ordered metFORMIN 500 mg oral tablet, extended release 1 tablet = 500 mg, By Mouth, Daily, # 30 tablet, 11 Refills, Maintenance, 02/03/20 16:44:00 EST, ERTablet, [place], [place] - [id number], Partial fill upon patient request if the [...] 01/28/20 9:40:00 EST, Route to Pharmacy Electronically, [facility], Partial fill upon patient request if the prescription is for a schedule II o... Start Date: 01/28/20 Status: Ordered omeprazole 20 mg oral enteric coated capsule 1 capsule = 20 mg, By Mouth, 2 times a day, # 60 capsule, 2 Refills, Soft Stop, 01/02/20 18:13:00 EST, [facility] [place], [place] - [id number], Dose increased 05/09/19. Label in Italian., 177, cm, 12/30/19 11:37:00 EST, Height, 135, [...] sleep apnea, Com plex sleep apnea(Confirmed) Active BHN/CCA/Implementation Engineer-Remedios [id number]-[phone]/Health shelter, active care coordination(Confirmed) Active 1Impression: 1. Mildly [...]
--- OUTSIDE RECORDS SUMMARY | 2022-08-02 17:43 | XMS_ITS | Continuity of Care Document ---
Author Name Unknown Organization [facility] Address [address] [place] [address]- Care Team Providers Care Underwriter Name Role Phone Delia ACOSTA, Lamine Covington Primary Care Physician [place] [facility] [place] 12/21[place] 03/13/20 [facility] [address] [place], [place] [address] Attending Physician: Richardson Partida MD Admitting Physician: Richardson Partida MD Referring Physician: Rakan Albarado DO Allergies, Adverse Reactions, Alerts Substance Reaction Severity [...] 18:13:00 EST, Aerosol, Route to Pharmacy Electronically, [id number], [facility] [place], [place] - [id number], 177, cm... Start Date: 01/02/20 Status: Ordered amLODIPine 5 mg oral tablet 5 mg, 1, tablet, By Mouth, Daily, # 30 tablet, Refills 11, Tot. Refills 11, Maintenance, 02/03/20 16:45:00 EST, Route to Pharmacy Electronically, [facility] [id number], 178, cm, 01/28/20 6:28:00 EST, Height, 158, [...] 3 Refills, Maintenance, 02/24/20 11:16:00 EST, Tablet, [facility] [id number], Label in Peruvian., 178, cm, 02/04/20 15:21:00 EST, Height, 158, kg, 01/07/20 14:48:00 EST, Dry Weight Start Date: 02/24/20 Status: Ordered chlorthalidone 25 mg oral tablet 12.5 mg, 0.5, tablet, By Mouth, Daily, # 15 tablet, Refills 5, Tot. Refills 5, Maintenance, 02/04/20 15:34:00 EST, Route to Pharmacy Electronically, [facility] [id number], Partial fill upon patient request if the [...] mL, 0 Refills, Maintenance, 02/24/20 11:15:00 EST, [place], [place], [place] - [id number], 1 sprays Nares, Both 2 times a day, 178, cm, 02/04/20 15:21:00 EST, Height, 158, kg, 01/07/20 14:48:0... Start Date: 02/24/20 Status: Ordered Flovent Diskus 100 mcg/inh inhalation powder 1 puffs, Inhalation, 2 times a day, # 60 each, 0 Refills, Maintenance, 03/03/20 10:49:00 EST, Powder, [facility] [id number], Partial fill upon patient request if the prescription is for a schedule II opioid drug., 1 puffs Inha... Start Date: 03/03/20 Status: Ordered Gas-X with Maalox 250 mg-62.5 mg oral capsule 2 capsule, By Mouth, Every 2 hours, PRN for indigestion, # 48 capsule, 0 Refills, Acute 04/13/20 14:59:00 EST, 03/13/20 14:59:00 EST, Capsule, [facility] [id number], Partial fill upon patient request if the prescription is for... Start Date: 03/13/20 Stop Date: 04/13/20 Status: Ordered GuaiFENesin DM 20 mg-200 mg/10 mL oral liquid 10 mL, By Mouth, Every 4 hours, PRN as needed for cough, not to exceed 6 doses/day, # 120 mL, 0 Refills, Maintenance, 03/03/20 11:05:00 EST, Liquid, [facility] [id number], Partial fill upon patient request if the prescription... Start Date: 03/03/20 Status: Ordered metFORMIN 500 mg oral tablet, extended release 1 tablet = 500 mg, By Mouth, Daily, # 30 tablet, 11 Refills, Maintenance, 02/03/20 16:44:00 EST, ERTablet, [facility] [id number], Partial fill upon patient request if the [...] 01/28/20 9:40:00 EST, Route to Pharmacy Electronically, [facility], Partial fill upon patient request if the prescription is for a schedule II o... Start Date: 01/28/20 Status: Ordered omeprazole 20 mg oral enteric coated capsule 1 capsule = 20 mg, By Mouth, 2 times a day, # 60 capsule, 2 Refills, Soft Stop, 01/02/20 18:13:00 EST, [facility] [id number], Dose increased 05/09/19. Label in Peruvian., 177, cm, 12/30/19 11:37:00 EST, Height, 135, kg, ... Start Date: 01/02/20 Status: Ordered Tessalon Perles 100 mg oral capsule 1 capsule = 100 mg, By Mouth, 3 times a day, for 10 days, # 30 capsule, 0 Refills, Acute 03/23/20 14:59:00 EST, 03/13/20 14:59:00 EST, Capsule, [facility] [id number], Partialfill upon patient request if the prescription [...] Active Gynecomastia(Confirmed) Active Hypercholesterolemia(Confirmed) Active Hypertension(Confirmed) Active Jorgekebach(Confirmed) 2012 Active Morbid obesity with BMI of 4 5.0-49.9, adult(Confirmed) Active NAFLD (nonalcoholic fatty li evelia disease)(Confirmed) 1 Active Obstructive sleep apnea, Com plex sleep apnea(Confirmed) Active BHN/CCA/Apiculture Teacher-Remedios MárquezByqaziz-[phone]/Health [facility], active care coordination(Confirmed) Active 1Impression: 1. Mildly [...]
--- OUTSIDE RECORDS SUMMARY | 2022-08-02 17:43 | XMS_ITS | Continuity of Care Document ---
Author Name Unknown Organization [facility] Address [address] [place] [address]- Care Team Providers Care Labor Arbitrator Name Role Phone Lamine Lin MD Primary Care Physician Encounter [facility] Date(s): 11/26/20 - 01/20/[address] [address]- Attending Physician: Not on Staff, Attending MD [...] 10/23/20 10:46:00 EDT, Route to Pharmacy Electronically, [facility]/pharmacy #[id number], Partial fill upon patient request if the prescription is for a schedule II opioid drug... Start Date: 10/23/20 Status: Ordered chlorthalidone 25 mg oral tablet 12.5 mg, 0.5, tablet, By Mouth, Daily, # 15 tablet, Refills 1, Tot. Refills 1, Maintenance, 10/23/20 10:48:00 EDT, [id number] Partial fill upon patient request [...] 0 Refills, Maintenance, 11/23/20 13:32:00 EDT, Gel, [facility] [place], [place] - [id number], Partial fill upon patient request if the prescription is for a schedule II opioid drug., 177, cm, 10... Start Date: 11/23/20 Status: Ordered diphenhydrAMINE 50 mg oral tablet = 50 mg, By Mouth, Every 6 hours, PRN Anxiety, # 60 tablet, 1 Refills, Maintenance, 10/23/20 10:48:00 EDT, Tablet, [facility]/pharmacy #[id number], Partial fill upon patient request if the prescription is for a schedule II opioid drug., 177, cm, 10/22/20 21:57:00... Start Date: 10/23/20 Status: Ordered folic acid 1 mg oral tablet 1, tablet, By Mouth, Daily, # 30 tablet, Refills 1, Route to Pharmacy Electronically, [facility], 177, cm, 12/17/20 10:34:00 EDT, Height, 148, kg, 10/16/20 15:12:00 EDT, Dry Weight Start Date: 01/01/21 Status: Ordered gabapentin 600 mg oral tablet 1 tablet, By Mouth, 3 times a day, # 90 tablet, 1 Refills, [facility], 177, cm, 12/17/20 10:34:00 EDT, Height, 148, kg, 10/16/20 15:12:00 EDT, Dry Weight Start Date: 01/01/21 Status: Ordered loratadine 10 mg oral tablet 1, tablet, By Mouth, Daily, # 30 tablet, Refills 1, Route to Pharmacy Electronically, [facility], 177, cm, 12/17/20 10:34:00 EDT, Height, 148, kg, 10/16/20 15:12:00 EDT, Dry Weight Start Date: 01/01/21 Status: Ordered losartan 25 mg oral tablet 25 mg, 1, tablet, By Mouth, Daily, # 30 tablet, Refills 1, Tot. Refills 1, Maintenance, 10/23/20 10:47:00 EDT, Route to Pharmacy Electronically, [facility]/pharmacy #[id number], Partial fill upon patient request if the prescription is for a schedule II opioid drug... Start Date: 10/23/20 Status: Ordered metFORMIN 500 mg oral tablet, extended release 1 tablet = 500 mg, By Mouth, Daily, # 30 tablet, 1 Refills, Maintenance, 10/23/20 10:47:00 EDT, ER Tablet, [facility]/pharmacy #[id number], Partial fill upon [...] 01/25/21 13:45:00 EST, 01/18/21 13:45:00 EST, Tablet, [place], [place] - [id number], Partial fill upon patient request if the [...] Refills, Maintenance, 12/17/20 15:15:00 EDT, ER Tablet, [place], [place] - [id number], Partial fillupon patient request if the prescription [...] sleep apnea, Com plex sleep apnea(Confirmed) Active BHN/CCA/Supervisor Front-Remedios MárquezAtpmtsy-[phone]/Health nursing home, active care coordination(Confirmed) Active Severe obesity(Confirmed) Active [...]
--- OUTSIDE RECORDS SUMMARY | 2022-08-02 17:43 | XMS_ITS | Continuity of Care Document ---
Author Name Unknown Organization [facility] Address [address] [place] [id number]- Care Team Providers Care Business Reporting Developer Name Role Phone Delia ACOSTA, Lamine Covington Primary Care Physician Encounter [facility] Date(s): 10/15/20 - 10/16/[address] [address]- Encounter Diagnosis Auditory hallucination(Final) - 10/16/20 Discharge Disposition: Transferred to an intermediate care faci Attending Physician: Marbin Best MD Admitting Physician: Marbin Best MD Referring Physician: Not on Staff, Referring [...] 18:13:00 EST, Aerosol, Route to Pharmacy Electronically, [id number], [facility] [id number], 177, cm... Start Date: 01/02/20 Status: Ordered amLODIPine 5 mg oral tablet 5 mg, Tablet, By Mouth, 10/16/20 9:00:00 EDT Start Date: 10/16/20 Stop Date: 10/16/20 Status: Completed amLODIPine 5 mg oral tablet 5 mg, 1, tablet, By Mouth, Daily, # 30 tablet, Refills 11, Tot. Refills 11, Maintenance, 02/03/20 16:45:00 EST, Route to Pharmacy Electronically, [facility] [id number], 178, cm, 01/28/20 6:28:00 EST, Height, 158, kg, 01/07/20... Start Date: 02/03/20 Status: Ordered Flonase 50 mcg/inh nasal spray 1 sprays, Nares, Both, 2 times a day, # 9.9 mL, 0 Refills, Maintenance, 02/24/20 11:15:00 EST, [place], [facility] [id number], 1 sprays Nares, Both 2 times a day, 178, cm, 02/04/20 15:21:00 EST, Height, 158, kg, 01/07/20 14:48:0... Start Date: 02/24/20 Status: Ordered gabapentin 300 mg oral capsule 300 mg, Capsule, By Mouth, 10/16/20 9:00:00 EDT Start Date: 10/16/20 Stop Date: 10/16/20 Status: Completed gabapentin 300 mg oral capsule 300 mg, 1, capsule, By Mouth, 3 times a day, # 90 capsule, Refills 5, Tot. Refills 5, Maintenance, 08/21/20 11:48:00 EDT, Route to Pharmacy Electronically, [facility] [id number], Dose decreased 08/21/20, 177.9, cm, 08/20/20 10:0... Start Date: 08/21/20 Status: Ordered LORazepam 1 mg oral tablet 1 tablet = 1 mg, By Mouth, Daily at bedtime, 0 Refills, Maintenance, 10/11/20 22:55:00 EDT, Tablet,Partial fill upon patient request if the prescription is for a schedule II opioid drug. Start Date: 10/11/20 Status: Ordered losartan 25 mg oral tablet 25 mg, 1, tablet, By Mouth, Daily, # 90 tablet, Refills 3, Tot. Refills 3, Maintenance, 10/14/20 10:54:00 EDT, Route to Pharmacy Electronically, [facility] [id number], Partial fill upon patient request if the prescription is f... Start Date: 10/14/20 Status: Ordered metFORMIN 500 mg oral tablet, extended release 1 tablet = 500 mg, By Mouth, Daily, # 30 tablet, 11 Refills, Maintenance, 02/03/20 16:44:00 EST, ERTablet, [place], [place] - [id number], Partial fill upon patient request if the prescription is for a schedule II opioid drug., 178, c... Start Date: 02/03/20 Status: Ordered nicotine 21 mg/24 hr transdermal film, extended release Place 1 patch onto the skin daily. Start Date: 10/11/20 Status: Ordered non slip bath mat non slip bath mat, See Instructions, # 1 each, Refills 0, Tot. Refills 0, Maintenance, dx: ESHA, SOB, LEFT LEG PAIN LEFT LEG SWELLING RISK FOR CUWSQA22.81 G46.33,RO6.2.M79.605,R22.42, 07/23/20 13:54:00 EDT, Supply Start Date: 07/23/20 Status: Ordered OXcarbazepine 300 mg oral tablet TAKE ONE TABLET BY MOUTH IN THE MORNING AND TAKE ONE TABLET BY MOUTH AT BEDTIME Start Date: 08/20/20 Status: Ordered pantoprazole 40 mg oral delayed release tablet Take 1 tablet (40 mg total) by mouth every morning on an empty stomach. Start Date: 10/11/20 Status: Ordered traZODone 50 mg oral tablet Take 1 tablet (50 mg total) by mouth every night at bedtime. Start Date: 10/11/20 Status: Ordered Vitamin B1 100 mg oral tablet Take 1 tablet (100 mg total) by mouth daily. Start Date: 10/11/20 Status: Ordered Vraylar 4.5 mg oral capsule TAKE ONE CAPSULE BY MOUTH AT BEDTIME Start Date: 10/11/20 Status: Ordered wedge pillows wedge pillows, See Instructions, # 2 each, Refills 0, Tot. Refills 0, Maintenance, use 1 pillow to elevate head and 1 pillow to elevate left leg duration: lifetime dx: ESHA, SOB, LEFT LEG PAIN LEFT LEG SWELLING G46.33,RO6.2.M79.605,R22.42, 06/0... Start Date: 07/22/20 Status: Ordered ZyrTEC 10 mg oral tablet 1 tablet = 10 mg, By Mouth, Daily, # 30 tablet, 0 Refills, Maintenance, 09/07/20 17:58:00 EDT, Tablet, [facility] [place], [place] - [id number], Partial fill upon patient request if the prescription is for a schedule II opioid drug., 177.9, cm,... Start Date: 09/07/20 Status: Ordered Problem List Condition Effective Dates Status Health Status Inform ant Diabetes mellitus(Confirmed) Active Esophageal reflux (GERD)(Confirmed) Active Gastric polyp(Confirmed) 1 Active Gynecomastia(Confirmed) Active Hypercholesterolemia(Confirmed) Active Hypertension(Confirmed) Active Sleep related hypoxia(Confirmed) Active Wenckebach(Confirmed) 2012 Active Morbid obesity with BMI of 4 5.0-49.9, adult(Confirmed) Active NAFLD (nonalcoholic fatty li evelia disease)(Confirmed) 2 Active Obstructive sleep apnea, Com plex sleep apnea(Confirmed) Active BHN/CCA/Director Case-Remedios MárquezQeafxkn-[phone]/Health retirement, active care coordination(Confirmed) Active Treatment-emergent central s [...] 1 2 3 Oxygen Saturation [94-100 %] 98 % (10/16/20 10:57 AM) 98 % (10/16/20 6:39 AM) 99 % (10/16/20 6:00 AM) Pulse Rate [55-90 bpm] 88 bpm (10/16/20 10:57 AM) 63 bpm (10/16/20 6:39 AM) 83 bpm (10/16/20 4:31 AM) Blood Pressure [90-138/55-84 mm Hg] 141/81mm Hg *H* (10/16/20 10:57 AM) 141/81mm Hg *H* (10/16/20 10:55 AM) 156/102mm Hg *H* (10/16/20 4:31 AM) Respiratory Rate [16-30 br/min] 22 br/min (10/16/20 10:57 AM) 22 br/min (10/16/20 10:54 AM) 19 br/min (10/16/20 6:39 AM) Temperature [96.8-100.4 DegF] 98.9 DegF (10/15/20 8:31 PM) 99.5 DegF (10/15/20 5:26 PM) 99.6 DegF (10/15/20 3:23 PM) Mode of Delivery (Oxygen) Room air (10/16/20 10:57 AM) CPAP (10/16/20 6:39 AM) Room air (10/16/20 4:31 AM) Blood pressure sites Arm, right (10/16/20 4:31 AM) Arm, right (10/15/20 8:31 PM) Arm, right (10/15/20 3:23 PM) Temperature Route Oral (10/15/20 8:31 PM) Oral (10/15/20 5:26 PM) Oral (10/15/20 3:23 PM) Social History Social History Type Response Smoking Status Never smoker entered on: 10/02/13 Sex
--- OUTSIDE RECORDS SUMMARY | 2022-08-02 17:43 | XMS_ITS | Continuity of Care Document ---
Author Name Unknown Organization [facility] Address [address] [place] [address]- Care Team Providers Care Woodenware Assembler Name Role Phone Delia ACOSTA, Lamine Covington Primary Care Physician Encounter [facility] Date(s): 04/16/20 - 05/16/20 [facility] [address] [place], [place] [address] Allergies, Adverse Reactions, Alerts Substance Reaction [...] 18:13:00 EST, Aerosol, Route to Pharmacy Electronically, [id number], [facility] [place], [place] - [id number], 177, cm... Start Date: 01/02/20 Status: Ordered amLODIPine 5 mg oral tablet 5 mg, 1, tablet, By Mouth, Daily, # 30 tablet, Refills 11, Tot. Refills 11, Maintenance, 02/03/20 16:45:00 EST, Route to Pharmacy Electronically, [facility], [place] - [id number], 178, cm, 01/28/20 6:28:00 EST, Height, 158, [...] 3 Refills, Maintenance, 02/24/20 11:16:00 EST, Tablet, [facility], [place] - [id number], Label in [place]., 178, cm, 02/04/20 15:21:00 EST, Height, 158, kg, 01/07/20 14:48:00 EST, Dry Weight Start Date: 02/24/20 Status: Ordered chlorthalidone 25 mg oral tablet 12.5 mg, 0.5, tablet, By Mouth, Daily, # 15 tablet, Refills 5, Tot. Refills 5, Maintenance, 02/04/20 15:34:00 EST, Route to Pharmacy Electronically, [facility], [place] - [id number], Partial fill upon patient request if the [...] mL, 0 Refills, Maintenance, 02/24/20 11:15:00 EST, [place], [facility], [place] - [id number], 1 sprays Nares, Both 2 times a day, 178, cm, 02/04/20 15:21:00 EST, Height, 158, kg, 01/07/20 14:48:0... Start Date: 02/24/20 Status: Ordered Flovent Diskus 100 mcg/inh inhalation powder 1 puffs, Inhalation, 2 times a day, # 60 each, 0 Refills, Maintenance, 03/03/20 10:49:00 EST, Powder, [facility] [id number], Partial fill upon patient request if the prescription is for a schedule II opioid drug., 1 puffs Inha... Start Date: 03/03/20 Status: Ordered GuaiFENesin DM 20 mg-200 mg/10 mL oral liquid 10 mL, By Mouth, Every 4 hours, PRN as needed for cough, not to exceed 6 doses/day, # 120 mL, 0 Refills, Maintenance, 03/03/20 11:05:00 EST, Liquid, [facility] [id number], Partial fill upon patient request if the prescription... Start Date: 03/03/20 Status: Ordered metFORMIN 500 mg oral tablet, extended release 1 tablet = 500 mg, By Mouth, Daily, # 30 tablet, 11 Refills, Maintenance, 02/03/20 16:44:00 EST, ERTablet, [facility] [id number], Partial fill upon patient request if the [...] 01/28/20 9:40:00 EST, Route to Pharmacy Electronically, [facility] 3, Partial fill upon patient request if the prescription is for a schedule II o... Start Date: 01/28/20 Status: Ordered omeprazole 20 mg oral enteric coated capsule 1 capsule = 20 mg, By Mouth, 2 times a day, # 60 capsule, 2 Refills, Soft Stop, 04/01/20 14:52:00 EST, [facility] [place], [place] - [id number], Dose increased 05/09/19. Label in [place]., 178, cm, 03/16/20 12:24:00 EST, Height, 153.2, [...] apnea, Com plex sleep apnea(Confirmed) Active BHN/CCA/Supervisor Machine Workers-Remedios MárquezWegxzeq-[phone]/Health longterm, active care coordination(Confirmed) Active 1Impression: 1. Mildly [...]
--- OUTSIDE RECORDS SUMMARY | 2022-08-02 17:43 | XMS_ITS | Continuity of Care Document ---
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 Start Date: 10/15/19 Status: Ordered amLODIPine 5 mg oral tablet 5 mg, 1, tablet, By Mouth, Daily, # 30 tablet, Refills 11, Tot. Refills 11, Maintenance, 05/09/19 8:48:00 EDT, Route to Pharmacy Electronically, [place], [place] -, 177, cm, 04/02/2009:47:00 EST, Height, 135, kg, 03/30/18 19:13:00 ES... Start Date: 05/09/19 Status: Ordered cetirizine 10 mg oral tablet 1 tablet = 10 mg, By Mouth, Daily, # 30 tablet, 1 Refills, Maintenance, 11/08/19 14:15:00 EDT, Tablet, [place], [place] - [id number], Label in Indian., 177, cm, 10/15/19 14:42:00 EDT, Height, 135, kg, 03/30/18 19:13:00 EST, Dry Weight Start Date: 11/08/19 Status: Ordered Coricidin HBP Chest Congestion & Cough 10 mg-200 mg oral capsule 1 capsule, By Mouth, Every 4 hours, PRN for cough, not to exceed 6 doses/day. Indian label, # 60 capsule, 0 Refills, Maintenance, 10/15/19 15:34:00 EDT, Capsule, [place], [place] - [id number], 1 capsule By Mouth Every 4 hours,PRN:for... [...] Gm, 3 Refills, Maintenance, 08/28/19 8:53:00 EDT, [place], [place], [place] -, 2 sprays Nares, Both Daily [...] 5 Refills, Soft Stop, 05/09/19 8:49:00 EDT, [place], [place] -, 177, cm, 04/02/19 10:47:00 EST, Height, 135, kg, 03/30/18 19:13:00 EST, Dry Weight Start Date: 05/09/19 Status: Ordered Metoprolol Tartrate 25 mg oral tablet See Instructions, TAKE 1 & 1/2 TABLETS BY MOUTH 2 (two) times a day, # 90 tablet, 3 Refills, Soft Stop, 05/09/19 8:49:00 EDT, [facility] [place] -, 177, cm, 04/02/19 10:47:00 EST, Height, 135, kg, 03/30/18 19:13:00 EST, Dry Weight Start Date: 05/09/19 Status: Ordered omeprazole 20 mg oral enteric coated capsule 1 capsule = 20 mg, By Mouth, 2 times a day, # 60 capsule, 3 Refills, Soft Stop, 07/09/19 10:02:00 EDT, [place], [place] -, Dose increased 05/09/19. Label in Indian., 177, cm, 04/02/19 10:47:00 EST, Height, 135, kg, 03/30/18 19:13:00... Start Date: 07/09/19 Status: Ordered simvastatin 10 mg oral tablet See Instructions, TAKE ONE TABLET BY MOUTH DAILY AT BEDTIME, # 30 tablet, Refills 11, Tot. Refills 11, Soft Stop, 05/09/19 8:49:00 EDT, Instructions Replace Required Details, Route to Pharmacy Electronically, [place], [place] -, 177,... Start Date: 05/09/19 Status: [...]
--- OUTSIDE RECORDS SUMMARY | 2022-08-02 17:43 | XMS_ITS | Continuity of Care Document ---
Author Name Unknown Organization [facility] Address [address] [place] [address]- Care Team Providers Care Clinique Counter Manager Name Role Phone Lamine Lin MD Primary Care Physician Encounter [facility] [id number] Date(s): 03/30/21 - 05/09/21 [facility] [address] [place] [address]- Attending Physician: Not on Staff, Attending MD [...] 14:20:00 EST, Route to Pharmacy Electronically, [facility] [place], [place] - [id number], Partial fill upon patient request if... Start Date: 03/29/21 Stop Date: 04/28/21 Status: Ordered chlorthalidone 25 mg oral tablet 12.5 mg, 0.5, tablet, By Mouth, Daily, # 15 tablet, Refills 0, Tot. Refills 0, Maintenance, 03/29/21 14:20:00 EST, Route to Pharmacy Electronically, [facility] [id number], Partial fill upon patient request if the prescription... Start Date: 03/29/21 Stop Date: 04/28/21 Status: Ordered diclofenac 1% topical gel 1 application, Topically, 4 times a day, # 100 Gm, 0 Refills, Maintenance, 03/29/21 14:20:00 EST, Gel, [facility] [id number], Partial fill upon patient request if the prescription is for a schedule II opioid drug., 178, cm, 02... Start Date: 03/29/21 Stop Date: 04/12/21 Status: Ordered docusate sodium 100 mg oral capsule 100 mg, 1, capsule, By Mouth, Daily, # 30 capsule, Refills 0, Tot. Refills 0, Maintenance, 03/29/2213:21:00 EST, Route to Pharmacy Electronically, [facility] [id number], Partial fill upon patient request if the prescription i... Start Date: 03/29/21 Stop Date: 04/28/21 Status: Ordered Flonase 50 mcg/inh nasal spray 2 sprays = 100 mcg, Nares, Both, Daily, # 16 Gm, 0 Refills, Maintenance, 03/29/21 14:21:00 EST, Nasal [place], [facility] [id number], Partial fill upon patient request if the prescription is for a schedule II opioid drug., 2 spr... Start Date: 03/29/21 Stop Date: 04/12/21 Status: Ordered folic acid 1 mg oral tablet 1 mg, 1, tablet, By Mouth, Daily, # 30 tablet, Refills 0, Tot. Refills 0, Maintenance, 03/29/21 14:21:00 EST, Route to Pharmacy Electronically, [facility] [id number], Partialfill upon patient request if the prescription is fo... Start Date: 03/29/21 Stop Date: 04/28/21 Status: Ordered gabapentin 600 mg oral tablet 1 tablet = 600 mg, By Mouth, 3 times a day, # 90 tablet, 0 Refills, Maintenance, 03/29/21 14:25:00 EST, Tablet, [facility] [id number], Partial fill upon patient request if the prescription is for a schedule II opioid drug., 17... Start Date: 03/29/21 Stop Date: 04/28/21 Status: Ordered lidocaine 5% topical film 1 film, Topically, Daily, knee pain, # 30 film, 0 Refills, Maintenance, 03/29/21 14:22:00 EST, [place], [facility] [id number], Partial fill upon patient request if the prescription is for a schedule II opioid drug., 1 film Topic... Start Date: 03/29/21 Stop Date: 04/28/21 Status: Ordered loratadine 10 mg oral tablet 10 mg, 1, tablet, By Mouth, Daily, # 30 tablet, Refills 0, Tot. Refills 0, Maintenance, 03/29/21 14:21:00 EST, Route to Pharmacy Electronically, [facility] [id number], Partial fill upon patient request if the prescription is f... Start Date: 03/29/21 Stop Date: 04/28/21 Status: Ordered losartan 25 mg oral tablet 25 mg, 1, tablet, By Mouth, Daily, Hold if SBP<100mm Hg, # 30 tablet, Refills 0, Tot. Refills 0,Maintenance, 03/29/21 14:21:00 EST, Route to Pharmacy Electronically, [facility] [id number], Partial fill upon patient request if... Start Date: 03/29/21 Stop Date: 04/28/21 Status: Ordered MetFORMIN (Eqv-Glucophage XR) 500 mg oral tablet, extended release 1 tablet, By Mouth, Daily, for 30 days, # 30 tablet, 11 Refills, Physician Stop 03/24/22 14:21:00 EST, 03/29/21 14:21:00 EST, [facility] [id number], 178, cm, 03/29/21 9:32:00EST, Height, 152.6, kg, 03/18/21 22:03:00 EST, Dry... Start Date: 03/29/21 Stop Date: 03/24/22 Status: Ordered OXcarbazepine 300 mg oral tablet 300 mg, 1, tablet, By Mouth, 2 times a day, # 60 tablet, Refills 0, Tot. Refills 0, Maintenance, 03/29/21 14:21:00 EST, Route to Pharmacy Electronically, [facility] [id number], Partial fill upon patient request if the [...] 03/29/21 14:25:00 EST, Route to Pharmacy Electronically, [facility] [id number], Partialfill upon patient request if the prescription is fo... Start Date: 03/29/21 Stop Date: 04/28/21 Status: Ordered risperiDONE 3 mg oral tablet 3 mg, 1, tablet, By Mouth, Daily at bedtime, # 30 tablet, Refills 0, Tot. Refills 0, Maintenance, 03/29/21 14:26:00 EST, Route to Pharmacy Electronically, [facility] [id number], Partial fill upon patient request if the [...] sleep apnea, Com plex sleep apnea(Confirmed) Active BHN/CCA/Learning And Development Administrator-Remedios MárquezTguwkku-[phone]/Health fpc, active care coordination(Confirmed) Active Severe obesity(Confirmed) Active [...]
--- OUTSIDE RECORDS SUMMARY | 2022-08-02 17:43 | XMS_ITS | Continuity of Care Document ---
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 Start Date: 01/02/20 Status: Ordered amLODIPine 5 mg oral tablet 5 mg, 1, tablet, By Mouth, Daily, # 30 tablet, Refills 11, Tot. Refills 11, Maintenance, 02/03/20 16:45:00 EST, Route to Pharmacy Electronically, [facility], [place] - [id number], 178, cm, 01/28/20 6:28:00 EST, Height, 158, kg, 01/07/20... Start Date: 02/03/20 Status: Ordered cetirizine 10 mg oral tablet 1 tablet = 10 mg, By Mouth, Daily, # 30 tablet, 5 Refills, Maintenance, 07/01/20 9:26:00 EDT, Tablet, [facility], [facility] [id number], Label in Cymro., 177.9, cm, 04/16/20 13:38:00 EST, Height, 153.2, kg, 03/16/20 12:24:00 EST, Dry We... Start Date: 07/01/20 Status: Ordered chlorthalidone 25 mg oral tablet 12.5 mg, 0.5, tablet, By Mouth, Daily, # 15 tablet, Refills 5, Tot. Refills 5, Maintenance, 07/31/20 11:20:00 EDT, Route to Pharmacy Electronically, [facility], [facility] [id number], Partial fill upon patient request if the prescription... Start Date: 07/31/20 Status: Ordered Flonase 50 mcg/inh nasal spray 1 sprays, Nares, Both, 2 times a day, # 9.9 mL, 0 Refills, Maintenance, 02/24/20 11:15:00 EST, [place], [facility], [place] - [id number], 1 sprays Nares, Both 2 times a day, 178, cm, 02/04/20 15:21:00 EST, Height, 158, kg, 01/07/20 14:48:0... Start Date: 02/24/20 Status: Ordered gabapentin 300 mg oral capsule 300 mg, 1, capsule, By Mouth, 3 times a day, # 90 capsule, Refills 5, Tot. Refills 5, Maintenance, 08/21/20 11:48:00 EDT, Route to Pharmacy Electronically, [facility] [id number], Dose decreased 08/21/20, 177.9, cm, 08/20/20 10:0... Start Date: 08/21/20 Status: Ordered hydrocortisone 1% topical cream 1 application, Topically, 2 times a day, to arms apply in a thin film to the affected skin and rub in gently and completely, # 15 Gm, 0 Refills, Acute 09/20/20 10:44:00 EDT, 08/20/20 10:44:00 EDT, Cream, [facility] [id number]... Start Date: 08/20/20 Stop Date: 09/20/20 Status: Ordered metFORMIN 500 mg oral tablet, extended release 1 tablet = 500 mg, By Mouth, Daily, # 30 tablet, 11 Refills, Maintenance, 02/03/20 16:44:00 EST, ERTablet, [facility] [id number], Partial fill upon patient request if the prescription is for a schedule II opioid drug., 178, c... Start Date: 02/03/20 Status: Ordered non slip bath mat non slip bath mat, See Instructions, # 1 each, Refills 0, Tot. Refills 0, Maintenance, dx: ESHA, SOB, LEFT LEG PAIN LEFT LEG SWELLING RISK FOR TYWCKK67.81 G46.33,RO6.2.M79.605,R22.42, 07/23/20 13:54:00 EDT, Supply Start Date: 07/23/20 Status: Ordered olanzapine 5 mg oral tablet 5 mg, 1, tablet, By Mouth, Daily in AM, # 30 tablet, Refills 0, Tot. Refills 0, Maintenance, 01/28/20 9:40:00 EST, Route to Pharmacy Electronically, [facility] 3, Partial fill upon patient request if the prescription is for a schedule II o... Start Date: 01/28/20 Status: Ordered omeprazole 20 mg oral enteric coated capsule 1 capsule = 20 mg, By Mouth, 2 times a day, # 60 capsule, 2 Refills, Soft Stop, 07/01/20 9:26:00 EDT, [facility] [id number], Label in Cymro, 177.9, cm, 04/16/20 13:38:00 EST, Height, 153.2, kg, 01/25/21 12:24:00 EST, Dry Weight Start Date: 07/01/20 [...] sleep apnea, Com plex sleep apnea(Confirmed) Active N/[facility]/Commercial Loan Assistant-Remedios MárquezIwbolwg-[phone]/[facility], active care coordination(Confirmed) Active 1On EGD in [...] recent to oldest [Reference Range]: 1 Height 177.9 cm (08/28/20 2:51 PM) Oxygen Saturation [94-100 %] 98 % (08/28/20 2:51 PM) Pulse Rate [55-90 bpm] 91 bpm *H* (08/28/20 2:51 PM) Blood Pressure [90-138/55-84 mm Hg] 134/ 81mm Hg (08/28/20 2:51 PM) Respiratory Rate [16-30 br/min] 27 br/mi n (08/28/20 2:51 PM) Temperature [96.8-100.4 DegF] 97.9 DegF (08/28/20 2:51 PM) Mode of Delivery (Oxygen) Room air (08/28/20 2:51 PM) Blood pressure sites Arm, left (08/28/20 2:51 PM) Temperature Route Temporal (08/28/20 2:51 PM) Social History Social History Type Response Smoking Status Never smoker entered on: 10/02/13 Sex
--- OUTSIDE RECORDS SUMMARY | 2022-08-02 17:43 | XMS_ITS | Continuity of Care Document ---
Author Name Unknown Organization [facility] Address [address] [place] [address]- Care Team Providers Care Car Attendant Name Role Phone Delia ACOSTA, Lamine Covington Primary Care Physician [phone] Encounter [facility] Date(s): 05/09/19 - 05/19/19 [facility] [address] [place] [address]- [facility] Attending Physician: AdmMarsha bourne Admitting Physician: AdmtrMarsha [...] 05/09/19 8:48:00 EDT, Route to Pharmacy Electronically, [facility] - [place], [place] -, 177, cm, 04/02/2009:47:00 EST, Height, [...] Gm, 3 Refills, Maintenance, 05/09/19 8:47:00 EDT, [facility], [place], [place] -, 2 sprays Nares, Both Daily in AM, 177, cm, 04/02/19 10:47:00 EST, Height, 135, kg, 03/30/18 19:13:00 EST, Dry Weight Start Date: 05/09/19 Status: Ordered metFORMIN 500 mg oral tablet, extended release See Instructions, TAKE ONE TABLET BY MOUTH DAILY, # 30 tablet, 5 Refills, Soft Stop, 05/09/19 8:49:00 EDT, [place], [place] -, 177, cm, 04/02/19 10:47:00 EST, Height, 135, kg, 03/30/18 19:13:00 EST, Dry Weight Start Date: 05/09/19 Status: Ordered Metoprolol Tartrate 25 mg oral tablet See Instructions, TAKE 1 & 1/2 TABLETS BY MOUTH 2 (two) times a day, # 90 tablet, 3 Refills, Soft Stop, 05/09/19 8:49:00 EDT, [place], [place] -, 177, cm, 04/02/19 10:47:00 EST, Height, 135, kg, 03/30/18 19:13:00 EST, Dry Weight Start Date: 05/09/19 Status: Ordered omeprazole 20 mg oral enteric coated capsule 1 capsule = 20 mg, By Mouth, 2 times a day, # 60 capsule, 3 Refills, Soft Stop, 05/09/19 8:48:00 EDT, [place], [place] -, Dose increased 05/09/19. Label in Andorran., 177, cm, 04/02/2009:47:00 EST, Height, 135, kg, 03/30/18 19:13:00 E... Start Date: 05/09/19 Status: Ordered simvastatin 10 mg oral tablet See Instructions, TAKE ONE TABLET BY MOUTH DAILY AT BEDTIME, # 30 tablet, Refills 11, Tot. Refills 11, Soft Stop, 05/09/19 8:49:00 EDT, Instructions Replace Required Details, Route to Pharmacy Electronically, [facility] - [place], [place] -, 177,... Start Date: 05/09/19 Status: [...]
--- OUTSIDE RECORDS SUMMARY | 2022-08-02 17:43 | XMS_ITS | Continuity of Care Document ---
Author Name Unknown Organization [facility] Address [address] [place] [address]- Care Team Providers Care Industrial Court Magistrate Name Role Phone Delia ACOSTA, Lamine Covington Primary Care Physician Encounter [facility] Date(s): 07/07/22 - 07/08/[address] [address]- Discharge Disposition: A-D/C Home Attending Physician: Marilu Cummings MD Admitting Physician: Marilu Cummings MD Referring Physician: Not on Staff, Referring MD Allergies, Adverse Reactions, Alerts Substance Reaction Severity Status lisinopril dry cough Active Dust Mild Active Milk Products Nausea and vomiting Persistent Moderate Active cloNIDine confusion Active Immunizations Given and Recorded Vaccine Date Status Refusal Reason [id number] 12y+ bivalent booster vax 02/07/22 Given influenza [...] each, 1 Refills, Maintenance, 06/06/22 16:49:00 EDT, [facility] [id number], 178, cm, 06/06/22 16:31:00 EDT, Height, 101.4, kg, 01/12/22 14:14:00 EST, Dry Weight Start Date: 06/06/22 Status: Ordered ferrous fumarate 324 mg oral tablet 1 tablet = 324 mg, By Mouth, Every 48 hours, # 15 tablet, 5 Refills, Maintenance, 06/06/22 16:37:00EDT, [facility] [id number], Partial fill upon patient request if the prescription is for a schedule II opioid drug., 178, cm,... Start Date: 06/06/22 Status: Ordered folic acid 1 mg oral tablet 1, tablet, By Mouth, Daily, # 30 tablet, Refills 5, Tot. Refills 5, Maintenance, 06/06/22 16:49:00 EDT, Route to Pharmacy Electronically, [facility] [id number], 178, cm, 06/06/22 16:31:00 EDT, Height, 101.4, kg, 01/12/22 14:14... Start Date: 06/06/22 Status: Ordered gabapentin 300 mg oral capsule 600 mg, Capsule, By Mouth, 07/08/22 9:00:00 EDT Start Date: 07/08/22 Stop Date: 07/08/22 Status: Completed gabapentin 600 mg oral tablet 1 tablet = 600 mg, By Mouth, 3 times a day, # 90 tablet, 5 Refills, Maintenance, 06/06/22 16:41:00 EDT, Tablet, [facility] [id number], Partial fill upon patient request if the prescription is for a schedule II opioid drug., 17... Start Date: 06/06/22 Stop Date: 12/03/22 Status: Ordered loratadine 10 mg oral tablet 10 mg, 1, tablet, By Mouth, Daily, # 30 tablet, Refills 3, Tot. Refills 3, Maintenance, 06/06/22 16:41:00 EDT, Route to Pharmacy Electronically, [facility] [id number], Partial fill upon patient request if the prescription is f... Start Date: 06/06/22 Stop Date: 10/04/22 Status: Ordered MiraLax oral powder for reconstitution = 17 Gm, By Mouth, Daily, dissolve in water before taking, # 527 Gm, 1 Refills, Maintenance, 06/06/22 16:49:00 EDT, REC Powder, [facility] [id number], Partial fill upon patient request if the prescription is for a schedule II... Start Date: 06/06/22 Status: Ordered multivitamin Multiple Vitamins oral tablet 1 tablet, By Mouth, Daily, # 90 tablet, 3 Refills, Maintenance, 06/06/22 16:40:00 EDT, [facility] [id number], Partial fill upon patient request if the [...] Status: Ordered prazosin 1 mg oral capsule 2 mg, Capsule, By Mouth, Daily at bedtime, Routine, 07/07/22 23:37:00 EDT Start Date: 07/07/22 Stop Date: 07/08/22 Status: Discontinued prazosin 1 mg oral capsule 1 mg, [...] sleep apnea, Complex sleep apnea Confirmed Active [facility]/Primary Operator-Tia Kolby [phone]/Health half-way, active care coordination Confirmed Active Treatment-emergent central [...] 3 Oxygen Saturation [94-100 %] 100 % (07/08/22 11:25 AM) 100 % (07/08/22 6:23 AM) 100 % (07/07/22 8:30 PM) Pulse Rate [55-90 bpm] 62 bpm (07/08/22 11:25 AM) 67 bpm (07/08/22 6:23 AM) 91 bpm *H* (07/07/22 8:30 PM) Blood Pressure [90-138/55-84 mm Hg] 127/81mm Hg (07/08/22 11:25 AM) 125/45mm Hg (07/08/22 6:23 AM) 127/77mm Hg (07/08/22 3:16 AM) Respiratory Rate [16-30 br/min] 20 br/min (07/08/22 11:25 AM) 16 br/min (07/08/22 11:07 AM) 25 br/min (07/08/22 6:23 AM) Temperature [96.8-100.4 DegF] 98.7 DegF (07/08/22 11:25 AM) 97.9 DegF (07/08/22 6:23 AM) 98.3 DegF (07/07/22 8:30 PM) Mode of Delivery (Oxygen) Room air (07/08/22 11:25 AM) Room air (07/08/22 6:23 AM) Room air (07/07/22 8:30 PM) Blood pressure sites Arm, left (07/08/22 6:23 AM) Temperature Route Oral (07/08/22 11:25 AM) Oral (07/08/22 6:23 AM) Oral (07/07/22 8:30 PM) Social History Social History Type Response Smoking Status Never smoker entered on: 10/02/13 Sex Patient Care team information Care Team Personnel Name: Ela Beltrán RN Position: [facility] AMB Nurse Member Role: Primary Care Nurse Name: Alaina Gillette RN Position: [facility] RN Member Role: Primary Care Nurse Name: Kristyn Tapia RN Position: [facility] SN RN Member Role: Primary Care Nurse Name: Lorna Gentile NP Position: [facility] Associate Professional Member Role: Primary Care Nurse Address: Address: [address] [place] [address] Name: Venus Jaramillo RN Position: [facility] RN Member Role: Primary Care Nurse Name: Flor Donnelly RN Position: [facility] RN Member Role: Primary Care Nurse Name: Ruiz Matson RN Position: [facility] RN Member Role: Primary Care Nurse Name: Belle Ames RN Position: [facility] RN Member Role: Primary Care Nurse Name: Alex Rios RN Position: [facility] RN Member Role: Primary Care Nurse Name: Daniel Hernandez III, RN Position: [facility] RN Member Role: Primary Care Nurse Name: Jordi Carter MD Position: [facility] Renal MD Member Role: Lifetime Consulting Physician Address: Address: [address] [facility] [place] [address]- [place] Name: Loren Hamlin RN Position: [facility] RN Member Role: Primary Care Nurse Name: Malia Wise RN Position: [facility] RN Member Role: Primary Care Nurse Name: Jessica Dia RN Position: [facility] RN Member Role: Primary Care Nurse Name: Lamine Lin MD Position: [facility] Primary Care Physician Member Role: PCP Address: Address: [address] [facility] [place] [address]- Name: Rose Abraham RN Position: [facility] Hospital Loading Shovel Oiler Member Role: Primary Care Nurse Name: Vinod Botello MD Position: [facility] Psychiatry MD Member Role: Lifetime Consulting Physician Address: Address: [address] [place] [address]- [place] Name: *[facility], ED Attending Position: [facility] ED Attendings Patient Name: Sussy Campbell RN Position: [facility] ED RN W/OE and Tasks Member Role: Patient Care Provider Name: Marilu Cummings MD Position: [facility] Resident Member Role: Admitting Physician Address: Address: [address] [facility] [place] [address]- Care Team Related Persons Name: MALIA HARRIS Name: KATHLEEN JACQUES Address: home [address] [place] [address] Name: VIRGIL PARKS Address: home [address] [place] [address] Name: MICHAELA MONTENEGRO Address: home UNKNOWN Name: MIGUEL PUENTES Address: home [address] [place] [address]
--- OUTSIDE RECORDS SUMMARY | 2022-08-02 17:43 | XMS_ITS | Continuity of Care Document ---
Author Name Unknown Organization [facility] Address [address] [place] [address]- Care Team Providers Care Keg Washer Name Role Phone Delia ACOSTA, Lamine Covington Primary Care Physician Encounter [facility] Date(s): 04/13/21 - 05/21/21 [facility] [address] [place] [address]- Attending Physician: Not on Staff, Attending MD [...] 05/17/21 23:47:00 EDT, Route to Pharmacy Electronically, [facility] - [place], [place] - [id number], Partial fill upon patient request if... Start Date: 05/17/21 Stop Date: 06/16/21 Status: Ordered chlorthalidone 25 mg oral tablet 12.5 mg, 0.5, tablet, By Mouth, Daily, # 15 tablet, Refills 0, Tot. Refills 0, Maintenance, 05/17/21 23:47:00 EDT, Route to Pharmacy Electronically, [facility] [id number], Partial fill upon patient request if the prescription... Start Date: 05/17/21 Stop Date: 06/16/21 Status: Ordered diclofenac 1% topical gel 1 application, Topically, 4 times a day, # 100 Gm, 0 Refills, Maintenance, 05/17/21 23:47:00 EDT, Gel, [facility] [id number], Partial fill upon patient request if the prescription is for a schedule II opioid drug., 179, cm, 03... Start Date: 05/17/21 Stop Date: 05/31/21 Status: Ordered docusate sodium 100 mg oral capsule 100 mg, 1, capsule, By Mouth, Daily, # 30 capsule, Refills 0, Tot. Refills 0, Maintenance, 05/17/2222:47:00 EDT, Route to Pharmacy Electronically, [facility] [id number], Partial fill upon patient request if the prescription i... Start Date: 05/17/21 Stop Date: 06/16/21 Status: Ordered Flonase 50 mcg/inh nasal spray 2 sprays = 100 mcg, Nares, Both, Daily, # 16 Gm, 0 Refills, Maintenance, 05/17/21 23:47:00 EDT, Nasal [place], [facility] [id number], Partial fill upon patient request if the prescription is for a schedule II opioid drug., 2 spr... Start Date: 05/17/21 Stop Date: 05/31/21 Status: Ordered folic acid 1 mg oral tablet 1 mg, 1, tablet, By Mouth, Daily, # 30 tablet, Refills 0, Tot. Refills 0, Maintenance, 05/17/21 23:47:00 EDT, Route to Pharmacy Electronically, [facility] [id number], Partialfill upon patient request if the prescription is fo... Start Date: 05/17/21 Stop Date: 06/16/21 Status: Ordered gabapentin 600 mg oral tablet 1 tablet = 600 mg, By Mouth, 3 times a day, # 90 tablet, 0 Refills, Maintenance, 05/17/21 23:47:00 EDT, Tablet, [facility] [id number], Partial fill upon patient request if the prescription is for a schedule II opioid drug., 17... Start Date: 05/17/21 Stop Date: 06/16/21 Status: Ordered lidocaine 5% topical film 1 film, Topically, Daily, knee pain, # 30 film, 0 Refills, Maintenance, 05/17/21 23:46:00 EDT, Patch, [facility] [id number], Partial fill upon patient request if the prescription is for a schedule II opioid drug., 1 film Topic... Start Date: 05/17/21 Stop Date: 06/16/21 Status: Ordered loratadine 10 mg oral tablet 10 mg, 1, tablet, By Mouth, Daily, # 30 tablet, Refills 0, Tot. Refills 0, Maintenance, 05/17/21 23:46:00 EDT, Route to Pharmacy Electronically, [facility] [id number], Partial fill upon patient request if the prescription is f... Start Date: 05/17/21 Stop Date: 06/16/21 Status: Ordered losartan 25 mg oral tablet 25 mg, 1, tablet, By Mouth, Daily, Hold if SBP<100mm Hg, # 30 tablet, Refills 0, Tot. Refills 0,Maintenance, 03/29/21 14:21:00 EST, Route to Pharmacy Electronically, [facility] [id number], Partial fill upon patient request if... Start Date: 03/29/21 Stop Date: 04/28/21 Status: Ordered MetFORMIN (Eqv-Glucophage XR) 500 mg oral tablet, extended release 1 tablet, By Mouth, Daily, for 30 days, # 30 tablet, 11 Refills, Physician Stop 05/12/22 23:46:00 EDT, 05/17/21 23:46:00 EDT, [facility] [id number], 179, cm, 05/17/21 19:30:00 EDT, Height, 140, kg, 05/17/21 19:30:00 EDT, Dry W... Start Date: 05/17/21 Stop Date: 05/12/22 Status: Ordered OXcarbazepine 300 mg oral tablet 300 mg, 1, tablet, By Mouth, 2 times a day, # 60 tablet, Refills 0, Tot. Refills 0, Maintenance, 05/17/21 23:45:00 EDT, Route to Pharmacy Electronically, [facility] [id number], Partial fill upon patient request if the [...] 23:46:00 EDT, Route to Pharmacy Electronically, [facility] [id number], Partialfill upon patient request if the prescription is fo... Start Date: 05/17/21 Stop Date: 06/16/21 Status: Ordered risperiDONE 3 mg oral tablet 3 mg, 1, tablet, By Mouth, Daily at bedtime, # 30 tablet, Refills 0, Tot. Refills 0, Maintenance, 05/17/21 23:46:00 EDT, Route to Pharmacy Electronically, [facility] [id number], Partial fill upon patient request if the [...] sleep apnea, Com plex sleep apnea(Confirmed) Active [facility]/Woodwork Teacher-Remedios MárquezTmlpkza-[phone]/Health custodial, active care coordination(Confirmed) Active Severe obesity(Confirmed) Active [...]
--- OUTSIDE RECORDS SUMMARY | 2022-08-02 17:43 | XMS_ITS | Continuity of Care Document ---
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 [id number], 177, cm... Start Date: 01/02/20 Status: Ordered amLODIPine 5 mg oral tablet 5 mg, 1, tablet, By Mouth, Daily, # 30 tablet, Refills 11, Tot. Refills 11, Maintenance, 02/03/20 16:45:00 EST, Route to Pharmacy Electronically, [facility], [facility] [id number], 178, cm, 01/28/20 6:28:00 EST, Height, 158, [...] 3 Refills, Maintenance, 02/24/20 11:16:00 EST, Tablet, [facility] [id number], Label in Moroccan., 178, cm, 02/04/20 15:21:00 EST, Height, 158, kg, 01/07/20 14:48:00 EST, Dry Weight Start Date: 02/24/20 Status: Ordered chlorthalidone 25 mg oral tablet 12.5 mg, 0.5, tablet, By Mouth, Daily, # 15 tablet, Refills 5, Tot. Refills 5, Maintenance, 02/04/20 15:34:00 EST, Route to Pharmacy Electronically, [facility] [id number], Partial fill upon patient request if the [...] mL, 0 Refills, Maintenance, 02/24/20 11:15:00 EST, Home, [facility], [place] - [id number], 1 sprays Nares, Both 2 times a day, 178, cm, 02/04/20 15:21:00 EST, Height, 158, kg, 01/07/20 14:48:0... Start Date: 02/24/20 Status: Ordered Flovent Diskus 100 mcg/inh inhalation powder 1 puffs, Inhalation, 2 times a day, # 60 each, 0 Refills, Maintenance, 03/03/20 10:49:00 EST, Powder, [facility], [facility] [id number], Partial fill upon patient request if the prescription is for a schedule II opioid drug., 1 puffs Inha... Start Date: 03/03/20 Status: Ordered GuaiFENesin DM 20 mg-200 mg/10 mL oral liquid 10 mL, By Mouth, Every 4 hours, PRN as needed for cough, not to exceed 6 doses/day, # 120 mL, 0 Refills, Maintenance, 03/03/20 11:05:00 EST, Liquid, [facility] [id number], Partial fill upon patient request if the prescription... Start Date: 03/03/20 Status: Ordered metFORMIN 500 mg oral tablet, extended release 1 tablet = 500 mg, By Mouth, Daily, # 30 tablet, 11 Refills, Maintenance, 02/03/20 16:44:00 EST, ERTablet, [place], [place] - [id number], Partial fill upon patient request if the [...] 01/28/20 9:40:00 EST, Route to Pharmacy Electronically, [facility] 3, Partial fill upon patient request if the prescription is for a schedule II o... Start Date: 01/28/20 Status: Ordered omeprazole 20 mg oral enteric coated capsule 1 capsule = 20 mg, By Mouth, 2 times a day, # 60 capsule, 2 Refills, Soft Stop, 04/01/20 14:52:00 EST, [facility] [place], [place] - [id number], Dose increased 05/09/19. Label in Moroccan., 178, cm, 03/16/20 12:24:00 EST, Height, 153.2, [...] sleep apnea, Com plex sleep apnea(Confirmed) Active [facility]/School Library Media Specialist-Remedios MárquezIdlzfux-[phone]/[facility], active care coordination(Confirmed) Active 1Impression: 1. Mildly [...]
--- OUTSIDE RECORDS SUMMARY | 2022-08-02 17:43 | XMS_ITS | Continuity of Care Document ---
Author Name Unknown Organization [facility] Address [address] [place] [address]- Care Team Providers Care Assistant County Attorney Name Role Phone Delia ACOSTA, Lamine Covington Primary Care Physician [facility] Date[facility] 06[facility]/20 - 07/02/20 [facility] [address] [place], [place] [address] Allergies, Adverse Reactions, Alerts Substance [...] 18:13:00 EST, Aerosol, Route to Pharmacy Electronically, [id number], [facility] - [place], [place] - [id number], 177, cm... Start Date: 01/02/20 Status: Ordered amLODIPine 5 mg oral tablet 5 mg, 1, tablet, By Mouth, Daily, # 30 tablet, Refills 11, Tot. Refills 11, Maintenance, 02/03/20 16:45:00 EST, Route to Pharmacy Electronically, [facility] [id number], 178, cm, 01/28/20 6:28:00 EST, Height, 158, [...] 5 Refills, Maintenance, 07/01/20 9:26:00 EDT, Tablet, [facility], [facility] [id number], Label in Tajik., 177.9, cm, 04/16/20 13:38:00 EST, Height, 153.2, kg, 03/16/20 12:24:00 EST, Dry We... Start Date: 07/01/20 Status: Ordered chlorthalidone 25 mg oral tablet 12.5 mg, 0.5, tablet, By Mouth, Daily, # 15 tablet, Refills 5, Tot. Refills 5, Maintenance, 02/04/20 15:34:00 EST, Route to Pharmacy Electronically, [facility], [facility] [id number], Partial fill upon patient request if the [...] mL, 0 Refills, Maintenance, 02/24/20 11:15:00 EST, [place], [facility] [id number], 1 sprays Nares, Both 2 times a day, 178, cm, 02/04/20 15:21:00 EST, Height, 158, kg, 01/07/20 14:48:0... Start Date: 02/24/20 Status: Ordered Flovent Diskus 100 mcg/inh inhalation powder 1 puffs, Inhalation, 2 times a day, # 60 each, 0 Refills, Maintenance, 03/03/20 10:49:00 EST, Powder, [facility] [id number], Partial fill upon patient request if the prescription is for a schedule II opioid drug., 1 puffs Inha... Start Date: 03/03/20 Status: Ordered GuaiFENesin DM 20 mg-200 mg/10 mL oral liquid 10 mL, By Mouth, Every 4 hours, PRN as needed for cough, not to exceed 6 doses/day, # 120 mL, 0 Refills, Maintenance, 03/03/20 11:05:00 EST, Liquid, [facility] [id number], Partial fill upon patient request if the prescription... Start Date: 03/03/20 Status: Ordered metFORMIN 500 mg oral tablet, extended release 1 tablet = 500 mg, By Mouth, Daily, # 30 tablet, 11 Refills, Maintenance, 02/03/20 16:44:00 EST, ERTablet, [facility] [id number], Partial fill upon patient request if the [...] 01/28/20 9:40:00 EST, Route to Pharmacy Electronically, [facility], Partial fill upon patient request if the prescription is for a schedule II o... Start Date: 01/28/20 Status: Ordered omeprazole 20 mg oral enteric coated capsule 1 capsule = 20 mg, By Mouth, 2 times a day, # 60 capsule, 2 Refills, Soft Stop, 07/01/20 9:26:00 EDT, [place], [place] - [id number], Label in Tajik, 177.9, cm, 04/16/20 13:38:00 EST, Height, 153.2, [...] sleep apnea, Com plex sleep apnea(Confirmed) Active BHN/CCA/Tortilla Maker-Remedios MárquezNxvdiym-[phone]/Health halfway, active care coordination(Confirmed) Active 1Impression: 1. Mildly [...]
--- OUTSIDE RECORDS SUMMARY | 2022-08-02 17:43 | XMS_ITS | Continuity of Care Document ---
Author Name Unknown Organization [facility] Address [address] [place] [address]- Care Team Providers Care In School Suspension Aide Name Role Phone Lamine Lin MD Primary Care Physician [phone] [facility]counter [facility] Date[facility]s): 05/09/19 - 05/16/19 [facility] [address] [place] [address]- [facility] Attending Physician: Lamine Lin MD [...] 05/09/19 8:48:00 EDT, Route to Pharmacy Electronically, [facility] - [place], [place] -, 177, cm, 04/02/2009:47:00 EST, Height, [...] Gm, 3 Refills, Maintenance, 05/09/19 8:47:00 EDT, [facility], [place], [place] -, 2 sprays Nares, Both Daily in AM, 177, cm, 04/02/19 10:47:00 EST, Height, 135, kg, 03/30/18 19:13:00 EST, Dry Weight Start Date: 05/09/19 Status: Ordered metFORMIN 500 mg oral tablet, extended release See Instructions, TAKE ONE TABLET BY MOUTH DAILY, # 30 tablet, 5 Refills, Soft Stop, 05/09/19 8:49:00 EDT, [facility], 177, cm, 04/02/19 10:47:00 EST, Height, 135, kg, 03/30/18 19:13:00 EST, Dry Weight Start Date: 05/09/19 Status: Ordered Metoprolol Tartrate 25 mg oral tablet See Instructions, TAKE 1 & 1/2 TABLETS BY MOUTH 2 (two) times a day, # 90 tablet, 3 Refills, Soft Stop, 05/09/19 8:49:00 EDT, [facility], 177, cm, 04/02/19 10:47:00 EST, Height, 135, kg, 03/30/18 19:13:00 EST, Dry Weight Start Date: 05/09/19 Status: Ordered omeprazole 20 mg oral enteric coated capsule 1 capsule = 20 mg, By Mouth, 2 times a day, # 60 capsule, 3 Refills, Soft Stop, 05/09/19 8:48:00 EDT, [facility], Dose increased 05/09/19. Label in Cymro., 177, cm, 04/02/2009:47:00 EST, Height, 135, kg, 03/30/18 19:13:00 E... Start Date: 05/09/19 Status: Ordered simvastatin 10 mg oral tablet See Instructions, TAKE ONE TABLET BY MOUTH DAILY AT BEDTIME, # 30 tablet, Refills 11, Tot. Refills 11, Soft Stop, 05/09/19 8:49:00 EDT, Instructions Replace Required Details, Route to Pharmacy Electronically, [facility] - [place], [place] -, 177,... Start Date: 05/09/19 Status: [...]
--- OUTSIDE RECORDS SUMMARY | 2022-08-02 17:43 | XMS_ITS | Continuity of Care Document ---
Author Name Unknown Organization [facility] Address [address] [place] [address]- Care Team Providers Care Instrumentation Chemist Name Role Phone Delia ACOSTA, Lamine Covington Primary Care Physician [phone] Encounter [facility] Date(s): 09/07/20 - 10/07/20 [facility] [address], [place] [address] Attending Physician: Admtr, Ar8 Admitting Physician: Admtr, Ar8 Referring Physician: Admtr, [...] 18:13:00 EST, Aerosol, Route to Pharmacy Electronically, [id number], [facility], [facility] [id number], 177, cm... Start Date: 01/02/20 Status: Ordered amLODIPine 5 mg oral tablet 5 mg, 1, tablet, By Mouth, Daily, # 30 tablet, Refills 11, Tot. Refills 11, Maintenance, 02/03/20 16:45:00 EST, Route to Pharmacy Electronically, [facility], [facility] [id number], 178, cm, 01/28/20 6:28:00 EST, Height, 158, kg, 01/07/20... Start Date: 02/03/20 Status: Ordered cetirizine 10 mg oral tablet 1 tablet = 10 mg, By Mouth, Daily, # 30 tablet, 5 Refills, Maintenance, 07/01/20 9:26:00 EDT, Tablet, [facility], [facility] [id number], Label in Luxembourgish., 177.9, cm, 04/16/20 13:38:00 EST, Height, 153.2, kg, 03/16/20 12:24:00 EST, Dry We... Start Date: 07/01/20 Status: Ordered chlorthalidone 25 mg oral tablet 12.5 mg, 0.5, tablet, By Mouth, Daily, # 15 tablet, Refills 5, Tot. Refills 5, Maintenance, 07/31/20 11:20:00 EDT, Route to Pharmacy Electronically, [facility], [facility] [id number], Partial fill upon patient request if the prescription... Start Date: 07/31/20 Status: Ordered Flonase 50 mcg/inh nasal spray 1 sprays, Nares, Both, 2 times a day, # 9.9 mL, 0 Refills, Maintenance, 02/24/20 11:15:00 EST, [place], [facility], [place] - [id number], 1 sprays Nares, Both 2 times a day, 178, cm, 02/04/20 15:21:00 EST, Height, 158, kg, 01/07/20 14:48:0... Start Date: 02/24/20 Status: Ordered gabapentin 300 mg oral capsule 300 mg, 1, capsule, By Mouth, 3 times a day, # 90 capsule, Refills 5, Tot. Refills 5, Maintenance, 08/21/20 11:48:00 EDT, Route to Pharmacy Electronically, [facility] [place], [place] - [id number], Dose decreased 08/21/20, 177.9, cm, 08/20/20 10:0... Start Date: 08/21/20 Status: Ordered metFORMIN 500 mg oral tablet, extended release 1 tablet = 500 mg, By Mouth, Daily, # 30 tablet, 11 Refills, Maintenance, 02/03/20 16:44:00 EST, ERTablet, [facility], [place] - [id number], Partial fill upon patient request if the prescription is for a schedule II opioid drug., 178, c... Start Date: 02/03/20 Status: Ordered non slip bath mat non slip bath mat, See Instructions, # 1 each, Refills 0, Tot. Refills 0, Maintenance, dx: ESHA, SOB, LEFT LEG PAIN LEFT LEG SWELLING RISK FOR NTSAAW91.81 G46.33,RO6.2.M79.605,R22.42, 07/23/20 13:54:00 EDT, Supply Start Date: 07/23/20 Status: Ordered olanzapine 5 mg oral tablet 5 mg, 1, tablet, By Mouth, Daily in AM, # 30 tablet, Refills 0, Tot. Refills 0, Maintenance, 01/28/20 9:40:00 EST, Route to Pharmacy Electronically, [facility] 3, Partial fill upon patient request if the prescription is for a schedule II o... Start Date: 01/28/20 Status: Ordered omeprazole 20 mg oral enteric coated capsule 1 capsule, By Mouth, 2 times a day, # 60 capsule, 2 Refills, Maintenance, 09/30/20 8:09:00 EDT, [facility], 177.9, cm, 09/22/20 12:43:00 EDT, Height, 160.8, kg, 09/07/20 17:40:00 EDT, Dry Weight Start Date: 09/30/20 Status: Ordered OXcarbazepine 300 mg oral tablet [...] 0 Refills, Maintenance, 09/07/20 17:58:00 EDT, Tablet, [facility] [place], [place] - [id number], Partial fill upon patient request if the [...] sleep apnea, Com plex sleep apnea(Confirmed) Active N/CCA/Boardmarker-Remedios MárquezQgqztsf-[phone]/Health [facility], active care coordination(Confirmed) Active Treatment-emergent central s [...]
--- OUTSIDE RECORDS SUMMARY | 2022-08-02 17:44 | XMS_ITS | Continuity of Care Document ---
Author Name Unknown Organization [facility] Address [address] [place] [address]- Care Team Providers Care Cableman Name Role Phone Lamine Lin MD Primary Care Physician [phone] Encounter [facility] Date(s): 12/13/21 - 12/15/[address] [address]- Encounter Diagnosis Acute chest pain(Final) - 12/14/21 Discharge Disposition: A-D/C Home Attending Physician: Minesh [...] 12/06/21 10:46:00 EDT, Route to Pharmacy Electronically, [facility] [place] - [id number],Partial fill upon patient request if the prescripti... Start Date: 12/06/21 Status: Ordered buPROPion 150 mg/24 hours (XL) oral tablet, extended release 1 tablet, By Mouth, Daily, # 30 tablet, 0 Refills, Maintenance, 12/02/21 7:44:00 EDT, [facility], [facility] [id number], 30, 1 tablet By Mouth Daily, 177.8, cm, 10/20/21 8:51:00 EDT, Height, 136.078, kg, 09/02/21 19:37:00 EDT, Dry Weight Start Date: 12/02/21 Status: Ordered docusate sodium 100 mg oral capsule 1 capsule, By Mouth, Daily, # 30 each, 1 Refills, Maintenance, 12/06/21 10:45:00 EDT, [facility], [place] - [id number], 177.8, cm, 12/06/21 10:26:00 EDT, Height, 136.078, kg, 09/02/21 19:37:00 EDT, Dry Weight Start Date: 12/06/21 Status: Ordered gabapentin 300 mg oral capsule 600 mg, Capsule, By Mouth, 12/15/21 9:00:00 EDT Start Date: 12/15/21 Stop Date: 12/15/21 Status: Completed gabapentin 600 mg oral tablet 1 tablet = 600 mg, By Mouth, 3 times a day, # 90 tablet, 5 Refills, Maintenance, 12/06/21 10:44:00 EDT, Tablet, [facility], [place] - [id number], Partial fill upon patient request if the prescription is for a schedule II opioid drug., 17... Start Date: 12/06/21 Stop Date: 06/04/22 Status: Ordered hydrOXYzine pamoate 50 mg oral capsule = 50 mg, By Mouth, Every 6 hours, PRN Anxiety, # 60 capsule, 0 Refills, Maintenance, 12/06/21 10:45:00 EDT, Capsule, [facility] [place] - [id number], Partial fill upon patient request if the prescription is for a schedule II opioid drug... Start Date: 12/06/21 Status: Ordered loratadine 10 mg oral tablet 10 mg, 1, tablet, By Mouth, Daily, # 30 tablet, Refills 3, Tot. Refills 3, Maintenance, 12/06/21 10:45:00 EDT, Route to Pharmacy Electronically, [facility] [id number], Partial fill upon patient request if the prescription is f... Start Date: 12/06/21 Stop Date: 04/05/22 Status: Ordered paliperidone 234 mg/1.5 mL intramuscular suspension, extended release = 234 mg, Intramuscular, Every 28 days, Due on 09/13/2021, # 1 each, 1 Refills, Maintenance, 08/18/21 10:16:00 EDT, [facility] [id number], Partial fill upon patient request ifthe prescription [...] Maintenance,12/06/21 10:45:00 EDT, Route to Pharmacy Electronically, [facility] [id number], Partial fill upon patient request if the [...] sleep apnea, Complex sleep apnea Confirmed Active BHN/CCA/Court Assistant-Tia Jarrett [phone]/Health skilled nursing, active care coordination Confirmed Active Treatment-emergent central [...] Exam Date Time Procedure Performing Provider Status 12/15/21 11:17 AM Tibia/Fibula 2 Views Right Chelo Allen; Auth (Verified) Notes: (Tibia/Fibula 2 Views Right) Reason For Exam: with Pain;Trauma RESULT: Tibia/Fibula 2 Views Right Tibia/Fibula 2 Views Right Hx of Present Illness: Pt reports auditory hallucinations for 2 days, missed couple doses of his medications(pt ran out off) pcp will not refill it. Hx of schizophrenia. Denies SI HI. C o body aches since yesterday, vomited once. Denies fever, chills.; Reason: Trauma; with Pain; Clinical Question(s): Fracture COMPARISON: None. FINDINGS: No fractures or bone lesions. Visualized joints are normal. Normal soft tissues. IMPRESSION: No acute osseous abnormality is seen involving the right tibia and fibula. WSN: [id number] Ordering Physician: Minesh De Guzman Dictated By: Tariq Dos Santos MD, V Dictated Date/Time: 12/15/21 11:26 a Reviewed By: Tariq Dos Santos MD, V Signed By: Tariq Dos Santos MD, V Signed Date/Time: 12/15/21 11:26 am Transcribed By: TIP Transcribed Date/Time: 12/15/21 11:26 am * Exam Date Time Procedure Performing Provider Status 12/13/21 1:20 PM Chest Portable Mary Ann Shine; Auth ( Verified) Notes: (Chest Portable) Reason For Exam: Shortness of Breath RESULT: Chest Portable Chest Portable Hx of Present Illness: Pt reports auditory hallucinations for 2 days, missed couple doses of his medications(pt ran out off) pcp will not refill it. Hx of schizophrenia. Denies SI HI. C o body aches since yesterday, vomited once. Denies fever, chills.; Reason: Shortness of Breath; Clinical Question(s): CHF COMPARISON: Chest radiograph dated 05/17/2021. FINDINGS: LINES AND TUBES: None. LUNGS AND PLEURA: Clear lungs. Normal pulmonary vascularity. No pleural effusion. No pneumothorax. HEART, MEDIASTINUM AND ZAIRE: Heart is normal in size. Normal mediastinal and hilar contour. BONES AND SOFT TISSUES: No acute abnormality. IMPRESSION: No acute abnormality. I have personally reviewed the images and I agree with this report. WSN: [id number] Ordering Physician: Bibi Sidhu Dictated By: Chun Narvaez MD Dictated Date/Time: 12/13/21 1:28 pm Reviewed By: Tariq Dos Santos MD, V Signed By: Tariq Dos Santos MD, V Signed Date/Time: 12/13/21 1:33 pm Transcribed By: TIP Transcribed Date/Time: 12/13/21 1:23 pm Vital Signs Most recent to oldest [Reference Range]: 1 2 3 Oxygen Saturation [94-100 %] 98 % (12/15/21 11:39 AM) 96 % (12/15/21 5:53 AM) 98 % (12/14/21 7:48 PM) Pulse Rate [55-90 bpm] 86 bpm (12/15/21 11:39 AM) 78 bpm (12/15/21 5:53 AM) 70 bpm (12/14/21 7:48 PM) Blood Pressure [90-138/55-84 mm Hg] 123/81mm Hg (12/15/21 11:39 AM) 119/74mm Hg (12/15/21 5:53 AM) 121/70mm Hg (12/14/21 7:48 PM) Respiratory Rate [16-30 br/min] 18 br/min (12/15/21 11:39 AM) 16 br/min (12/15/21 11:25 AM) 18 br/min (12/15/21 10:19 AM) Temperature [96.8-100.4 DegF] 98.2 DegF (12/15/21 11:39 AM) 98.7 DegF (12/14/21 7:48 PM) 98.2 DegF (12/14/21 9:00 AM) Liters per Minute 0 L/min (12/14/21 9:00 AM) Mode of Delivery (Oxygen) Room air (12/15/21 11:39 AM) Room air (12/15/21 5:53 AM) Room air (12/14/21 7:48 PM) Blood pressure sites Arm, right (12/15/21 11:39 AM) Arm, right (12/14/21 9:00 AM) Arm, right (12/14/21 5:44 AM) Temperature Route Oral (12/15/21 11:39 AM) Oral (12/14/21 7:48 PM) Oral (12/14/21 9:00 AM) Social History Social History Type Response Smoking Status Never smoker entered on: 10/02/13 Sex Portable XR Chest Views * [facility] , CIS S: TRANSCRIBE Solange ACOSTA, Chun Gilbert: SIGN Levon ACOSTA, Tariq V: VERIFY Event Display: Result: Authored Date: [id number] Chest Portable Hx of Present Illness: Pt reports auditory hallucinations for 2 days, missed couple doses of his medications(pt ran out off) pcp will not refill it. Hx of schizophrenia. Denies SI HI. C o body aches since yesterday, vomited once. Denies fever, chills.; Reason: Shortness of Breath; Clinical Question(s): CHF COMPARISON: Chest radiograph dated 05/17/2021. FINDINGS: LINES AND TUBES: None. LUNGS AND PLEURA: Clear lungs. Normal pulmonary vascularity. No pleural effusion. No pneumothorax. HEART, MEDIASTINUM AND ZAIRE: Heart is normal in size. Normal mediastinal and hilar contour. BONES AND SOFT TISSUES: No acute abnormality. IMPRESSION: No acute abnormality. I have personally reviewed the images and I agree with this report. WSN: [id number] Ordering Physician: Bibi Sidhu Dictated By: KhubChun driscoll MD Dictated Date/Time: 12/13/21 1:28 pm Reviewed By: Tariq Dos Santos MD, V Signed By: Tariq Dos Santos MD, V Signed Date/Time: 12/13/21 1:33 pm Transcribed By: TIP Transcribed Date/Time: 12/13/21 1:23 pm XR Tibia and Fibula - right 2 Views * [facility] , CIS S: TRANSCRIBE Tariq Dos Santos MD, V: VERIFY Event Display: Result: Authored Date: [id number] Tibia/Fibula 2 Views Right Hx of Present Illness: Pt reports auditory hallucinations for 2 days, missed couple doses of his medications(pt ran out off) pcp will not refill it. Hx of schizophrenia. Denies SI HI. C o body aches since yesterday, vomited once. Denies fever, chills.; Reason: Trauma; with Pain; Clinical Question(s): Fracture COMPARISON: None. FINDINGS: No fractures or bone lesions. Visualized joints are normal. Normal soft tissues. IMPRESSION: No acute osseous abnormality is seen involving the right tibia and fibula. WSN: [id number] Ordering Physician: Minesh De Guzman Dictated By: Tariq Dos Santos MD, V Dictated Date/Time: 12/15/21 11:26 a Reviewed By: Tariq Dos Santos MD, V Signed By: Tariq Dos Santos MD, V Signed Date/Time: 12/15/21 11:26 am Transcribed By: TIP Transcribed Date/Time: 12/15/21 11:26 am Patient Care team information Personnel Name: Lamine Lin MD Address: Address: [address] [place] [address]
--- OUTSIDE RECORDS SUMMARY | 2022-08-02 17:44 | XMS_ITS | Continuity of Care Document ---
Author Name Unknown Organization [facility] Address [address] [place] [address]- Care Team Providers Care Aircraft Engine Mechanic Supervisor Name Role Phone Delia ACOSTA, Lamine Covington Primary Care Physician [facility] 08[facility]20 - 09/20/20 [facility] [address] [place] [address]- Allergies, Adverse Reactions, Alerts Substance Reaction Severity [...] 18:13:00 EST, Aerosol, Route to Pharmacy Electronically, [id number], [facility] [place], [place] - [id number], 177, cm... Start Date: 01/02/20 Status: Ordered amLODIPine 5 mg oral tablet 5 mg, 1, tablet, By Mouth, Daily, # 30 tablet, Refills 11, Tot. Refills 11, Maintenance, 02/03/20 16:45:00 EST, Route to Pharmacy Electronically, [facility], [place] - [id number], 178, cm, 01/28/20 6:28:00 EST, Height, 158, kg, 01/07/20... Start Date: 02/03/20 Status: Ordered cetirizine 10 mg oral tablet 1 tablet = 10 mg, By Mouth, Daily, # 30 tablet, 5 Refills, Maintenance, 07/01/20 9:26:00 EDT, Tablet, [facility], [place] - [id number], Label in Arabic., 177.9, cm, 04/16/20 13:38:00 EST, Height, 153.2, kg, 03/16/20 12:24:00 EST, Dry We... Start Date: 07/01/20 Status: Ordered chlorthalidone 25 mg oral tablet 12.5 mg, 0.5, tablet, By Mouth, Daily, # 15 tablet, Refills 5, Tot. Refills 5, Maintenance, 07/31/20 11:20:00 EDT, Route to Pharmacy Electronically, [facility], [place] - [id number], Partial fill upon patient request if the prescription... Start Date: 07/31/20 Status: Ordered Flonase 50 mcg/inh nasal spray 1 sprays, Nares, Both, 2 times a day, # 9.9 mL, 0 Refills, Maintenance, 02/24/20 11:15:00 EST, [place], [facility], [place] - [id number], 1 sprays Nares, Both 2 times a day, 178, cm, 02/04/20 15:21:00 EST, Height, 158, kg, 01/07/20 14:48:0... Start Date: 02/24/20 Status: Ordered gabapentin 300 mg oral capsule 300 mg, 1, capsule, By Mouth, 3 times a day, # 90 capsule, Refills 5, Tot. Refills 5, Maintenance, 08/21/20 11:48:00 EDT, Route to Pharmacy Electronically, [facility], [place] - [id number], Dose decreased 08/21/20, 177.9, cm, 08/20/20 10:0... Start Date: 08/21/20 Status: Ordered metFORMIN 500 mg oral tablet, extended release 1 tablet = 500 mg, By Mouth, Daily, # 30 tablet, 11 Refills, Maintenance, 02/03/20 16:44:00 EST, ERTablet, [facility], [place] - [id number], Partial fill upon patient request if the prescription is for a schedule II opioid drug., 178, c... Start Date: 02/03/20 Status: Ordered non slip bath mat non slip bath mat, See Instructions, # 1 each, Refills 0, Tot. Refills 0, Maintenance, dx: ESHA, SOB, LEFT LEG PAIN LEFT LEG SWELLING RISK FOR [id number] G46.33,RO6.2.M79.605,R22.42, 07/23/20 13:54:00 EDT, Supply Start Date: 07/23/20 Status: Ordered olanzapine 5 mg oral tablet 5 mg, 1, tablet, By Mouth, Daily in AM, # 30 tablet, Refills 0, Tot. Refills 0, Maintenance, 01/28/20 9:40:00 EST, Route to Pharmacy Electronically, [facility] 3, Partial fill upon patient request if the prescription is for a schedule II o... Start Date: 01/28/20 Status: Ordered omeprazole 20 mg oral enteric coated capsule 1 capsule = 20 mg, By Mouth, 2 times a day, # 60 capsule, 2 Refills, Soft Stop, 07/01/20 9:26:00 EDT, [facility], [place] - [id number], Label in Arabic, 177.9, cm, 04/16/20 13:38:00 EST, Height, 153.2, [...] to elevate left leg duration: lifetime dx: ESAH, SOB, LEFT LEG PAIN LEFT LEG SWELLING G46.33,RO6.2.M79.605,R22.42, 06/0... Start Date: 07/22/20 Status: Ordered ZyrTEC 10 mg oral tablet 1 tablet = 10 mg, By Mouth, Daily, # 30 tablet, 0 Refills, Maintenance, 09/07/20 17:58:00 EDT, Tablet, [facility] [place], [place] - [id number], Partial fill upon patient request if the [...] sleep apnea, Com plex sleep apnea(Confirmed) Active BHN/CCA/Welding Instructor-Remedios MárquezNxlyqyp-[phone]/Health [facility], active care coordination(Confirmed) Active 1On EGD in [...]
--- OUTSIDE RECORDS SUMMARY | 2022-08-02 17:44 | XMS_ITS | Continuity of Care Document ---
Author Name Unknown Organization [facility] Address [address] [place] [address]- Care Team Providers Care Advertising Teacher Name Role Phone Lamine Lin MD Primary Care Physician [phone] Encounter [facility] Date(s): 09/01/21 - 09/02/[address] [address]- Encounter Diagnosis Auditory hallucination(Final) - 09/01/21 Discharge Disposition: Transfer to [facility] Attending Physician: Juan Luis Zhao MD Admitting Physician: Juan Luis Zhao MD Referring Physician: Not on Staff, Referring [...] 08/18/21 10:14:00 EDT, Route to Pharmacy Electronically, [facility] [id number],Partial fill upon patient request if the prescripti... Start Date: 08/18/21 Status: Ordered chlorthalidone 25 mg oral tablet 12.5 mg, 0.5, tablet, By Mouth, Daily, # 15 tablet, Refills 1, Tot. Refills 1, Maintenance, 08/18/21 10:14:00 EDT, Route to Pharmacy Electronically, [facility] [id number], Partial fill upon patient request if the prescription... Start Date: 08/18/21 Status: Ordered gabapentin 300 mg oral capsule 600 mg, Capsule, By Mouth, 09/02/21 9:00:00 EDT Start Date: 09/02/21 Stop Date: 09/02/21 Status: Completed gabapentin 600 mg oral tablet 1 tablet = 600 mg, By Mouth, 3 times a day, # 90 tablet, 1 Refills, Maintenance, 08/18/21 10:14:00 EDT, Tablet, [facility] [id number], Partial fill upon patient request if the prescription is for a schedule II opioid drug., 17... Start Date: 08/18/21 Stop Date: 10/17/21 Status: Ordered hydrOXYzine pamoate 50 mg oral capsule = 50 mg, By Mouth, Every 6 hours, PRN Anxiety, # 60 capsule, 1 Refills, Maintenance, 08/18/21 10:15:00 EDT, Capsule, [place], [place] - [id number], Partial fill upon patient request if the prescription is for a schedule II opioid drug... Start Date: 08/18/21 Status: Ordered loratadine 10 mg oral tablet 10 mg, 1, tablet, By Mouth, Daily, # 30 tablet, Refills 1, Tot. Refills 1, Maintenance, 08/18/21 10:15:00 EDT, Route to Pharmacy Electronically, [facility] [id number], Partial fill upon patient request if the prescription is f... Start Date: 08/18/21 Stop Date: 10/17/21 Status: Ordered metFORMIN 500 mg oral tablet, extended release 1 tablet = 500 mg, By Mouth, Daily, # 30 tablet, 1 Refills, Maintenance, 08/18/21 10:15:00 EDT, ER Tablet, [facility] [id number], Partial fill upon patient request if the prescription is for a schedule II opioid drug., 178, cm... Start Date: 08/18/21 Status: Ordered paliperidone 234 mg/1.5 mL intramuscular suspension, extended release = 234 mg, Intramuscular, Every 28 days, Due on 09/13/2021, # 1 each, 1 Refills, Maintenance, 08/18/21 10:16:00 EDT, [facility] [id number], Partial fill upon patient request ifthe prescription [...] EDT, Route to Pharmacy Electronically, [facility] [id number], Partial fill upon patient request if the [...] sleep apnea, Com plex sleep apnea(Confirmed) Active BHN/CCA/Varnishing Unit Operator-Remedios MárquezAfclkjc-[phone]/Health alf, active care coordination(Confirmed) Active Severe obesity(Confirmed) [...] 3 Oxygen Saturation [94-100 %] 97 % (09/02/21 8:15 AM) 94 % (09/02/21 5:07 AM) 97 % (09/02/21 1:28 AM) Pulse Rate [55-90 bpm] 66 bpm (09/02/21 8:15 AM) 67 bpm (09/02/21 5:07 AM) 79 bpm (09/02/21 1:28 AM) Blood Pressure [90-138/55-84 mm Hg] 129/72mm Hg (09/02/21 8:15 AM) 134/72mm Hg (09/02/21 5:07 AM) 130/78mm Hg (09/02/21 1:28 AM) Respiratory Rate [16-30 br/min] 18 br/min (09/02/21 8:19 AM) 18 br/min (09/02/21 8:15 AM) 16 br/min (09/02/21 5:07 AM) Temperature [96.8-100.4 DegF] 98.1 DegF (09/02/21 8:15 AM) 98.2 DegF (09/02/21 5:07 AM) 98.0 DegF (09/01/21 5:58 PM) Mode of Delivery (Oxygen) Room air (09/02/21 8:15 AM) Room air (09/02/21 5:07 AM) Room air (09/02/21 1:28 AM) Blood pressure sites Arm, left (09/02/21 8:15 AM) Arm, left (09/02/21 5:07 AM) Arm, left (09/02/21 1:28 AM) Temperature Route Oral (09/02/21 8:15 AM) Oral (09/02/21 5:07 AM) Oral (09/01/21 5:58 PM) Social History Social History Type Response Smoking Status Never smoker entered on: 10/02/13 Sex
--- OUTSIDE RECORDS SUMMARY | 2022-08-02 17:44 | XMS_ITS | Continuity of Care Document ---
Author Name Unknown Organization [facility] Address [address] [place] [address]- Care Team Providers Care Wire Tester Name Role Phone Delia ACOSTA, Lamine Covington Primary Care Physician Encounter [facility] Date(s): 02/04/21 - 03/06/21 [facility] [address], [place] [address] Attending Physician: AdmMarsha bourne Admitting Physician: Admtr, Marsha Referring Physician: Admtr, [...] 10/23/20 10:46:00 EDT, Route to Pharmacy Electronically, [facility]/pharmacy #[id number], Partial fill upon patient request if the prescription is for a schedule II opioid drug... Start Date: 10/23/20 Status: Ordered chlorthalidone 25 mg oral tablet 12.5 mg, 0.5, tablet, By Mouth, Daily, # 15 tablet, Refills 1, Tot. Refills 1, Maintenance, 10/23/20 10:48:00 EDT, Route to Pharmacy Electronically, [facility]/pharmacy #[id number], Partial fill upon patient request if the prescription is for a schedule II opioid... Start Date: 10/23/20 Status: Ordered Colace sodium 100 mg oral capsule 100 mg, 1, capsule, By Mouth, Daily in AM, # 30 capsule, Refills 1, Tot. Refills 1, Maintenance, 10/23/20 11:49:00 EDT, Route to Pharmacy Electronically, [facility]/pharmacy #[id number], Partial fill upon patientrequest if the prescription is for a schedule II op... Start Date: 10/23/20 Status: Ordered diclofenac 1% topical gel 1 application, Topically, 4 times a day, # 100 Gm, 0 Refills, Maintenance, 11/23/20 13:32:00 EDT, Gel, [facility] [place], [place] - [id number], Partial fill upon patient request if the prescription is for a schedule II opioid drug., 177, cm, 10... Start Date: 11/23/20 Status: Ordered diphenhydrAMINE 50 mg oral tablet = 50 mg, By Mouth, Every 6 hours, PRN Anxiety, # 60 tablet, 1 Refills, Maintenance, 10/23/20 10:48:00 EDT, Tablet, [facility]/pharmacy #[id number], Partial fill upon patient request if the prescription is for a schedule II opioid drug., 177, cm, 10/22/20 21:57:00... Start Date: 10/23/20 Status: Ordered folic acid 1 mg oral tablet 1, tablet, By Mouth, Daily, # 30 tablet, Refills 1, Route to Pharmacy Electronically, [facility], 177, cm, 12/17/20 10:34:00 EDT, Height, 148, kg, 10/16/20 15:12:00 EDT, Dry Weight Start Date: 01/01/21 Status: Ordered gabapentin 600 mg oral tablet 1 tablet, By Mouth, 3 times a day, # 90 tablet, 1 Refills, [facility], 177, cm, 12/17/20 10:34:00 EDT, Height, 148, kg, 10/16/20 15:12:00 EDT, Dry Weight Start Date: 01/01/21 Status: Ordered loratadine 10 mg oral tablet 1, tablet, By Mouth, Daily, # 30 tablet, Refills 1, Route to Pharmacy Electronically, [facility], 177, cm, 12/17/20 10:34:00 EDT, [...] Mouth, Daily, # 30 tablet, 11 Refills, [facility], 177, cm, 02/04/21 10:29:00 EST, Height, 148, kg, 10/16/20 15:12:00 EDT, Dry Weight Start Date: 02/10/21 Status: Ordered MiraLax oral powder for reconstitution = 17 Gm, By Mouth, Daily, # 255 Gm, 1 Refills, Maintenance, 10/23/20 10:49:00 EDT, [facility]/pharmacy #[id number], Partial fill upon patient [...] # 30 tablet, 1 Refills, 177, cm, 10/28/21 10:34:00 EDT, Height, 148, kg,10/16/20 15:12:00 EDT, Dry Weight Start Date: 01/01/21 Status: Ordered RisperDAL 2 mg oral tablet 2 mg, 1, tablet, By Mouth, Daily, # 30 tablet, Refills 1, Tot. Refills 1, Maintenance, 10/23/20 10:51:00 EDT, Route to Pharmacy Electronically, [facility]/pharmacy #[id number], Partial fill upon patient request if the prescription is for a schedule II opioid drug.... Start Date: 10/23/20 Status: Ordered risperiDONE 3 mg oral tablet 3 mg, 1, tablet, By Mouth, Daily at bedtime, # 30 tablet, Refills 1, Tot. Refills 1, Maintenance, 10/23/20 10:52:00 EDT, Route to Pharmacy Electronically, [facility]/pharmacy #[id number], Partial fill upon patient request if the prescription is for a schedule II o... Start Date: 10/23/20 Status: Ordered Tylenol 8 HR Arthritis Pain 650 mg oral tablet, extended release 1 tablet = 650 mg, By Mouth, Every 8 hours, PRN as needed for pain, # 50 tablet, 0 Refills, Maintenance, 12/17/20 15:15:00 EDT, ER Tablet, [place], [place] - [id number], Partial fillupon patient request if the prescription [...] sleep apnea, Com plex sleep apnea(Confirmed) Active BHN/CCA/Cattle Brander-Remedios MárquezHhordzo-[phone]/Health [facility], active care coordination(Confirmed) Active Severe obesity(Confirmed) Active [...]
--- OUTSIDE RECORDS SUMMARY | 2022-08-02 17:44 | XMS_ITS | Continuity of Care Document ---
Author Name Unknown Organization [facility] Address [address] [place] [address]- Care Team Providers Care Nurse Tech Name Role Phone Delia ACOSTA, Lamine Covington Primary Care Physician [phone] Encounter [facility] Date(s): 08/27/20 - 09/26/20 [facility] [address] [place] [address]- Allergies, Adverse Reactions, Alerts Substance Reaction Severity [...] 18:13:00 EST, Aerosol, Route to Pharmacy Electronically, [id number], [facility] [place], [place] - [id number], 177, cm... Start Date: 01/02/20 Status: Ordered amLODIPine 5 mg oral tablet 5 mg, 1, tablet, By Mouth, Daily, # 30 tablet, Refills 11, Tot. Refills 11, Maintenance, 02/03/20 16:45:00 EST, Route to Pharmacy Electronically, [facility], [place] - [id number], 178, cm, 01/28/20 6:28:00 EST, Height, 158, kg, 01/07/20... Start Date: 02/03/20 Status: Ordered cetirizine 10 mg oral tablet 1 tablet = 10 mg, By Mouth, Daily, # 30 tablet, 5 Refills, Maintenance, 07/01/20 9:26:00 EDT, Tablet, [facility], [facility] [id number], Label in Slovenian., 177.9, cm, 04/16/20 13:38:00 EST, Height, 153.2, kg, 03/16/20 12:24:00 EST, Dry We... Start Date: 07/01/20 Status: Ordered chlorthalidone 25 mg oral tablet 12.5 mg, 0.5, tablet, By Mouth, Daily, # 15 tablet, Refills 5, Tot. Refills 5, Maintenance, 07/31/20 11:20:00 EDT, Route to Pharmacy Electronically, [facility], [place] - [id number], Partial fill upon patient request if the prescription... Start Date: 07/31/20 Status: Ordered Flonase 50 mcg/inh nasal spray 1 sprays, Nares, Both, 2 times a day, # 9.9 mL, 0 Refills, Maintenance, 02/24/20 11:15:00 EST, [place], [facility], [place] - [id number], 1 sprays Nares, Both 2 times a day, 178, cm, 02/04/20 15:21:00 EST, Height, 158, kg, 01/07/20 14:48:0... Start Date: 02/24/20 Status: Ordered gabapentin 300 mg oral capsule 300 mg, 1, capsule, By Mouth, 3 times a day, # 90 capsule, Refills 5, Tot. Refills 5, Maintenance, 08/21/20 11:48:00 EDT, Route to Pharmacy Electronically, [facility], [facility] [id number], Dose decreased 08/21/20, 177.9, cm, 08/20/20 10:0... Start Date: 08/21/20 Status: Ordered metFORMIN 500 mg oral tablet, extended release 1 tablet = 500 mg, By Mouth, Daily, # 30 tablet, 11 Refills, Maintenance, 02/03/20 16:44:00 EST, ERTablet, [facility], [place] - [id number], Partial fill upon patient request if the prescription is for a schedule II opioid drug., 178, c... Start Date: 02/03/20 Status: Ordered non slip bath mat non slip bath mat, See Instructions, # 1 each, Refills 0, Tot. Refills 0, Maintenance, dx: ESHA, SOB, LEFT LEG PAIN LEFT LEG SWELLING RISK FOR WTLIIF86.81 G46.33,RO6.2.M79.605,R22.42, 07/23/20 13:54:00 EDT, Supply Start Date: 07/23/20 Status: Ordered olanzapine 5 mg oral tablet 5 mg, 1, tablet, By Mouth, Daily in AM, # 30 tablet, Refills 0, Tot. Refills 0, Maintenance, 01/28/20 9:40:00 EST, Route to Pharmacy Electronically, [facility], Partial fill upon patient request if the prescription is for a schedule II o... Start Date: 01/28/20 Status: Ordered omeprazole 20 mg oral enteric coated capsule 1 capsule = 20 mg, By Mouth, 2 times a day, # 60 capsule, 2 Refills, Soft Stop, 07/01/20 9:26:00 EDT, [facility], [place] - [id number], Label in [place]ian, 177.9, cm, 04/16/20 13:38:00 EST, Height, 153.2, [...] 0 Refills, Maintenance, 09/07/20 17:58:00 EDT, Tablet, [place], [place] - [id number], Partial fill upon patient request if the [...] sleep apnea, Com plex sleep apnea(Confirmed) Active N/[facility]/Analytics Lead-Remedios MárquezPmrjlvq-[phone]/Health shelter, active care coordination(Confirmed) Active Treatment-emergent central [...]
--- OUTSIDE RECORDS SUMMARY | 2022-08-02 17:44 | XMS_ITS | Continuity of Care Document ---
Author Name Unknown Organization [facility] Address [address] [place] [address]- Care Team Providers Care Door Manager Name Role Phone Delia ACOSTA, Lamine Covington Primary Care Physician Encounter [facility] Date(s): 02/10/21 - 03/12/21 [facility] [address] [place] [address]- Allergies, Adverse Reactions, Alerts Substance Reaction Severity [...] Mouth, Daily, # 30 tablet, 5 Refills, [facility], 177, cm, 02/04/21 10:29:00 EST,Height, 148, kg, 10/16/20 15:12:00 EDT, Dry Weight Start Date: 03/08/21 Status: Ordered chlorthalidone 25 mg oral tablet 12.5 mg, 0.5, tablet, By Mouth, Daily, # 15 tablet, Refills 1, Tot. Refills 1, Maintenance, 10/23/20 10:48:00 EDT, [id number] Partial fill upon patient request if the prescription is for a schedule II opioid... Start Date: 10/23/20 Status: Ordered Colace sodium 100 mg oral capsule 100 mg, 1, capsule, By Mouth, Daily in AM, # 30 capsule, Refills 1, Tot. Refills 1, Maintenance, 10/23/20 11:49:00 EDT, [id number], Partial fill upon patientrequest if the prescription is for a schedule II op... Start Date: 10/23/20 Status: Ordered diclofenac 1% topical gel 1 application, Topically, 4 times a day, # 100 Gm, 0 Refills, Maintenance, 11/23/20 13:32:00 EDT, Gel, [place], [place] - [id number], Partial fill upon patient request if the prescription is for a schedule II opioid drug., 177, cm, 10... Start Date: 11/23/20 Status: Ordered diphenhydrAMINE 50 mg oral tablet = 50 mg, By Mouth, Every 6 hours, PRN Anxiety, # 60 tablet, 1 Refills, Maintenance, 10/23/20 10:48:00 EDT, [id number] Partial fill upon patient request if the prescription is for a schedule II opioid drug., 177, cm, 10/22/20 21:57:00... Start Date: 10/23/20 Status: Ordered folic acid 1 mg oral tablet See Instructions, TAKE ONE TABLET BY MOUTH EVERY DAY, # 30 tablet, Refills 5, Tot. Refills 5, Maintenance, 03/07/21 15:15:00 EST, Instructions Replace Required Details, Route to Pharmacy Electronically, [place], [place] - [id number],... Start Date: 03/07/21 Status: Ordered gabapentin 600 mg oral tablet 1 tablet, By Mouth, 3 times a day, # 90 tablet, 1 Refills, [facility], 177, cm, 02/04/21 10:29:00 EST, Height, 148, kg, 10/16/20 15:12:00 EDT, Dry Weight Start Date: 03/08/21 Status: Ordered loratadine 10 mg oral tablet 1, tablet, By Mouth, Daily, # 30 tablet, Refills 1, Route to Pharmacy Electronically, [facility], 177, cm, 12/17/20 10:34:00 EDT, Height, 148, kg, 10/16/20 15:12:00 EDT, Dry Weight Start Date: 01/01/21 Status: Ordered losartan 25 mg oral tablet 1 tablet, By Mouth, Daily, # 30 tablet, 5 Refills, [facility], 177, cm, 02/04/21 10:29:00 EST,Height, 148, kg, 10/16/20 15:12:00 EDT, Dry Weight Start Date: 03/08/21 Status: Ordered MetFORMIN (Eqv-Glucophage XR) 500 mg oral tablet, extended release 1 tablet, By Mouth, Daily, # 30 tablet, 11 Refills, [facility], 177, cm, 02/04/21 10:29:00 EST, Height, 148, kg, 10/16/20 15:12:00 EDT, Dry Weight Start Date: 02/10/21 Status: Ordered MiraLax oral powder for reconstitution = 17 Gm, By Mouth, Daily, # 255 Gm, 1 Refills, Maintenance, 10/23/20 10:49:00 EDT, [facility]/pharmacy #[id number], Partial fill upon patient request [...] 10/23/20 10:48:00 EDT, Route to Pharmacy Electronically, [facility]/pharmacy #[id number], Partial fill upon patientrequest if [...] 10/23/20 10:51:00 EDT, Route to Pharmacy Electronically, [facility]/pharmacy #[id number], Partial fill upon patient request if the prescription is for a schedule II opioid drug.... Start Date: 10/23/20 Status: Ordered risperiDONE 3 mg oral tablet 3 mg, 1, tablet, By Mouth, Daily at bedtime, # 30 tablet, Refills 1, Tot. Refills 1, Maintenance, 10/23/20 10:52:00 EDT, Route to Pharmacy Electronically, [facility]/pharmacy #[id number], Partial fill upon patient request if the prescription is for a schedule II o... Start Date: 10/23/20 Status: Ordered Tylenol 8 HR Arthritis Pain 650 mg oral tablet, extended release 1 tablet = 650 mg, By Mouth, Every 8 hours, PRN as needed for pain, # 50 tablet, 0 Refills, Maintenance, 12/17/20 15:15:00 EDT, ER Tablet, [facility] [place], [place] - [id number], Partial fillupon patient request if the prescription [...] sleep apnea, Com plex sleep apnea(Confirmed) Active N/CCA/[place] Cutting Machine Operator-Remedios MárquezMjukjlb-[phone]/Health retirement, active care coordination(Confirmed) Active Severe obesity(Confirmed) [...]
--- OUTSIDE RECORDS SUMMARY | 2022-08-02 17:44 | XMS_ITS | Continuity of Care Document ---
Author Name Unknown Organization [facility] Address [address] [place] [address]- Care Team Providers Care Outside Machinist Apprentice Name Role Phone Delia ACOSTA, Lamine Covington Primary Care Physician [phone] Encounter [facility] Date(s): 03/16/20 - 03/23/20 [facility] [address], [place] [address] Attending Physician: Salud Varner MD Referring Physician: Lamine Lin MD Allergies, Adverse Reactions, Alerts No Known [...] 18:13:00 EST, Aerosol, Route to Pharmacy Electronically, [id number], [place], [place] - [id number], 177, cm... Start Date: 01/02/20 Status: Ordered amLODIPine 5 mg oral tablet 5 mg, 1, tablet, By Mouth, Daily, # 30 tablet, Refills 11, Tot. Refills 11, Maintenance, 02/03/20 16:45:00 EST, Route to Pharmacy Electronically, [facility] [id number], 178, cm, 01/28/20 6:28:00 EST, Height, 158, [...] 3 Refills, Maintenance, 02/24/20 11:16:00 EST, Tablet, [facility] [id number], Label in Czech., 178, cm, 02/04/20 15:21:00 EST, Height, 158, kg, 01/07/20 14:48:00 EST, Dry Weight Start Date: 02/24/20 Status: Ordered chlorthalidone 25 mg oral tablet 12.5 mg, 0.5, tablet, By Mouth, Daily, # 15 tablet, Refills 5, Tot. Refills 5, Maintenance, 02/04/20 15:34:00 EST, Route to Pharmacy Electronically, [facility] [id number], Partial fill upon patient request if the [...] mL, 0 Refills, Maintenance, 02/24/20 11:15:00 EST, [place], [facility] [id number], 1 sprays Nares, Both 2 times a day, 178, cm, 02/04/20 15:21:00 EST, Height, 158, kg, 01/07/20 14:48:0... Start Date: 02/24/20 Status: Ordered Flovent Diskus 100 mcg/inh inhalation powder 1 puffs, Inhalation, 2 times a day, # 60 each, 0 Refills, Maintenance, 03/03/20 10:49:00 EST, Powder, [facility] [id number], Partial fill upon patient request if the prescription is for a schedule II opioid drug., 1 puffs Inha... Start Date: 03/03/20 Status: Ordered Gas-X with Maalox 250 mg-62.5 mg oral capsule 2 capsule, By Mouth, Every 2 hours, PRN for indigestion, # 48 capsule, 0 Refills, Acute 04/13/20 14:59:00 EST, 03/13/20 14:59:00 EST, Capsule, [facility] [id number], Partial fill upon patient request if the prescription is for... Start Date: 03/13/20 Stop Date: 04/13/20 Status: Ordered GuaiFENesin DM 20 mg-200 mg/10 mL oral liquid 10 mL, By Mouth, Every 4 hours, PRN as needed for cough, not to exceed 6 doses/day, # 120 mL, 0 Refills, Maintenance, 03/03/20 11:05:00 EST, Liquid, [facility] [id number], Partial fill upon patient request if the prescription... Start Date: 03/03/20 Status: Ordered metFORMIN 500 mg oral tablet, extended release 1 tablet = 500 mg, By Mouth, Daily, # 30 tablet, 11 Refills, Maintenance, 02/03/20 16:44:00 EST, ERTablet, [facility] [id number], Partial fill upon patient request if the [...] 01/28/20 9:40:00 EST, Route to Pharmacy Electronically, [facility], Partial fill upon patient request if the prescription is for a schedule II o... Start Date: 01/28/20 Status: Ordered omeprazole 20 mg oral enteric coated capsule 1 capsule = 20 mg, By Mouth, 2 times a day, # 60 capsule, 2 Refills, Soft Stop, 01/02/20 18:13:00 EST, [facility] [place], [place] - [id number], Dose increased 05/09/19. Label in Czech., 177, cm, 12/30/19 11:37:00 EST, Height, 135, [...] Active Gynecomastia(Confirmed) Active Hypercholesterolemia(Confirmed) Active Hypertension(Confirmed) Active Eder(Confirmed) 2012 Active Morbid obesity with BMI of 4 5.0-49.9, adult(Confirmed) Active NAFLD (nonalcoholic fatty li evelia disease)(Confirmed) 1 Active Obstructive sleep apnea, Com plex sleep apnea(Confirmed) Active BHN/CCA/Rehab Spec-Remedios MárquezLpnxcuu-[phone]/Health long-term, active care coordination(Confirmed) Active 1Impression: 1. Mildly [...] recent to oldest [Reference Range]: 1 Height 178 cm (03/16/20 12:23 PM) Weight 153.2 kg (03/16/20 12:23 PM) Oxygen Saturation [94-100 %] 98 % (03/16/20 12:23 PM) Pulse Rate [55-90 bpm] 100 bpm *H* (03/16/20 12:23 PM) Body Mass Index [18.5-24.99] 48.35 *>HHI* (03/16/20 12:23 PM) Blood Pressure [90-138/55-84 mm Hg] 148/ 95mm Hg *H* (03/16/20 12:23 PM) Respiratory Rate [16-30 br/min] 16 br/mi n (03/16/20 12:23 PM) Temperature [96.8-100.4 DegF] 97.5 DegF (03/16/20 12:23 PM) Mode of Delivery (Oxygen) Room air (03/16/20 12:23 PM) Blood pressure sites Arm, right (03/16/20 12:23 PM) Temperature Route Temporal (03/16/20 12:23 PM) Dry Weight 153.2 kg (03/16/20 12:23 PM) Weight Obtained Via Standing scale (03/16/20 12:23 PM) Dry Weight Obtained Via Standing scale (03/16/20 12:23 PM) Social History Social History Type Response Smoking Status Never smoker entered on: 10/02/13 Sex
--- OUTSIDE RECORDS SUMMARY | 2022-08-02 17:44 | XMS_ITS | Continuity of Care Document ---
Author Name Unknown Organization [facility] Address [address] [place] [address]- Care Team Providers Care Associate Civil Engineer Name Role Phone Delia ACOSTA, Lamine Covington Primary Care Physician [place] [facility] [place] - 02/06/21 [facility] [address] [place] [address]- Attending Physician: Lamine Lin MD Admitting Physician: [...] 10/23/20 10:46:00 EDT, Route to Pharmacy Electronically, [facility]/pharmacy #[id number], Partial fill upon patient request if the prescription is for a schedule II opioid drug... Start Date: 10/23/20 Status: Ordered chlorthalidone 25 mg oral tablet 12.5 mg, 0.5, tablet, By Mouth, Daily, # 15 tablet, Refills 1, Tot. Refills 1, Maintenance, 10/23/20 10:48:00 EDT, [id number] Partial fill upon patient request if the prescription is for a schedule II opioid... Start Date: 10/23/20 Status: Ordered Colace sodium 100 mg oral capsule 100 mg, 1, capsule, By Mouth, Daily in AM, # 30 capsule, Refills 1, Tot. Refills 1, Maintenance, 10/23/20 11:49:00 EDT, Route to Pharmacy Electronically, [facility]/pharmacy #[id number], Partial fill upon patientrequest if the prescription is for a schedule II op... Start Date: 10/23/20 Status: Ordered diclofenac 1% topical gel 1 application, Topically, 4 times a day, # 100 Gm, 0 Refills, Maintenance, 11/23/20 13:32:00 EDT, Gel, [facility] [place], [place] - [id number], Partial fill upon patient request if the prescription is for a schedule II opioid drug., 177, cm, 10... Start Date: 11/23/20 Status: Ordered diphenhydrAMINE 50 mg oral tablet = 50 mg, By Mouth, Every 6 hours, PRN Anxiety, # 60 tablet, 1 Refills, Maintenance, 10/23/20 10:48:00 EDT, Tablet, [facility]/pharmacy #[id number], Partial fill upon patient request if the prescription is for a schedule II opioid drug., 177, cm, 10/22/20 21:57:00... Start Date: 10/23/20 Status: Ordered folic acid 1 mg oral tablet 1, tablet, By Mouth, Daily, # 30 tablet, Refills 1, Route to Pharmacy Electronically, [facility], 177, cm, 12/17/20 10:34:00 EDT, Height, 148, kg, 10/16/20 15:12:00 EDT, Dry Weight Start Date: 01/01/21 Status: Ordered gabapentin 600 mg oral tablet 1 tablet, By Mouth, 3 times a day, # 90 tablet, 1 Refills, [facility], 177, cm, 12/17/20 10:34:00 EDT, Height, 148, kg, 10/16/20 15:12:00 EDT, Dry Weight Start Date: 01/01/21 Status: Ordered loratadine 10 mg oral tablet 1, tablet, By Mouth, Daily, # 30 tablet, Refills 1, Route to Pharmacy Electronically, [facility], 177, cm, 12/17/20 10:34:00 EDT, Height, 148, kg, 10/16/20 15:12:00 EDT, Dry Weight Start Date: 01/01/21 Status: Ordered losartan 25 mg oral tablet 25 mg, 1, tablet, By Mouth, Daily, # 30 tablet, Refills 1, Tot. Refills 1, Maintenance, 10/23/20 10:47:00 EDT, Route to Pharmacy Electronically, [facility]/pharmacy #[id number], Partial fill upon patient request if the prescription is for a schedule II opioid drug... Start Date: 10/23/20 Status: Ordered metFORMIN 500 mg oral tablet, extended release 1 tablet = 500 mg, By Mouth, Daily, # 30 tablet, 1 Refills, Maintenance, 10/23/20 10:47:00 EDT, ER Tablet, [facility]/pharmacy #[id number], Partial fill upon patient request if the prescription is for a schedule II opioid drug., 177, cm, 10/22/20 21:57:00 EDT, Hei... Start Date: 10/23/20 Status: Ordered MiraLax oral powder for reconstitution = 17 Gm, By Mouth, Daily, # 255 Gm, 1 Refills, Maintenance, 10/23/20 10:49:00 EDT, [facility]/pharmacy #[id number], Partial fill upon patient request [...] 10/23/20 10:48:00 EDT, Route to Pharmacy Electronically, [facility]/pharmacy #[id number], Partial fill upon patientrequest if [...] 10/23/20 10:51:00 EDT, Route to Pharmacy Electronically, [facility]/pharmacy #[id number], Partial fill upon patient request if the prescription is for a schedule II opioid drug.... Start Date: 10/23/20 Status: Ordered risperiDONE 3 mg oral tablet 3 mg, 1, tablet, By Mouth, Daily at bedtime, # 30 tablet, Refills 1, Tot. Refills 1, Maintenance, 10/23/20 10:52:00 EDT, Route to Pharmacy Electronically, [facility]/pharmacy #[id number], Partial fill upon patient request if the prescription is for a schedule II o... Start Date: 10/23/20 Status: Ordered Tylenol 8 HR Arthritis Pain 650 mg oral tablet, extended release 1 tablet = 650 mg, By Mouth, Every 8 hours, PRN as needed for pain, # 50 tablet, 0 Refills, Maintenance, 12/17/20 15:15:00 EDT, ER Tablet, [facility] [place], [place] - [id number], Partial fillupon patient request if the prescription [...] sleep apnea, Com plex sleep apnea(Confirmed) Active BHN/CCA/Billet Examiner-Remedios MárquezEtcfsob-[phone]/Health jail, active care coordination(Confirmed) Active Severe obesity(Confirmed) [...]
--- OUTSIDE RECORDS SUMMARY | 2022-08-02 17:44 | XMS_ITS | Continuity of Care Document ---
Author Name Unknown Organization [facility] Address [address] [place] [address]- Care Team Providers Care Mechanical Engineering Director Name Role Phone Delia ACOSTA, Lamine Covington Primary Care Physician Encounter [facility] Date(s): 05/04/20 - 06/03/20 [facility] [address] [place] [address]- Allergies, Adverse Reactions, Alerts Substance Reaction Severity [...] 18:13:00 EST, Aerosol, Route to Pharmacy Electronically, [id number], [facility] [place], [place] - [id number], 177, cm... Start Date: 01/02/20 Status: Ordered amLODIPine 5 mg oral tablet 5 mg, 1, tablet, By Mouth, Daily, # 30 tablet, Refills 11, Tot. Refills 11, Maintenance, 02/03/20 16:45:00 EST, Route to Pharmacy Electronically, [facility], [place] - [id number], 178, cm, 01/28/20 6:28:00 EST, Height, 158, [...] 3 Refills, Maintenance, 02/24/20 11:16:00 EST, Tablet, [facility], [place] - [id number], Label in [place]., 178, cm, 02/04/20 15:21:00 EST, Height, 158, kg, 01/07/20 14:48:00 EST, Dry Weight Start Date: 02/24/20 Status: Ordered chlorthalidone 25 mg oral tablet 12.5 mg, 0.5, tablet, By Mouth, Daily, # 15 tablet, Refills 5, Tot. Refills 5, Maintenance, 02/04/20 15:34:00 EST, Route to Pharmacy Electronically, [facility], [place] - [id number], Partial fill upon patient request if the [...] mL, 0 Refills, Maintenance, 02/24/20 11:15:00 EST, [place], [facility], [place] - [id number], 1 sprays Nares, Both 2 times a day, 178, cm, 12/15/20 15:21:00 EST, Height, 158, kg, 01/07/20 14:48:0... Start Date: 02/24/20 Status: Ordered Flovent Diskus 100 mcg/inh inhalation powder 1 puffs, Inhalation, 2 times a day, # 60 each, 0 Refills, Maintenance, 03/03/20 10:49:00 EST, Powder, [facility] [id number], Partial fill upon patient request if the prescription is for a schedule II opioid drug., 1 puffs Inha... Start Date: 03/03/20 Status: Ordered GuaiFENesin DM 20 mg-200 mg/10 mL oral liquid 10 mL, By Mouth, Every 4 hours, PRN as needed for cough, not to exceed 6 doses/day, # 120 mL, 0 Refills, Maintenance, 03/03/20 11:05:00 EST, Liquid, [facility] [id number], Partial fill upon patient request if the prescription... Start Date: 03/03/20 Status: Ordered metFORMIN 500 mg oral tablet, extended release 1 tablet = 500 mg, By Mouth, Daily, # 30 tablet, 11 Refills, Maintenance, 02/03/20 16:44:00 EST, ERTablet, [facility] [id number], Partial fill upon patient request if the [...] 01/28/20 9:40:00 EST, Route to Pharmacy Electronically, [facility] 3, Partial fill upon patient request if the prescription is for a schedule II o... Start Date: 01/28/20 Status: Ordered omeprazole 20 mg oral enteric coated capsule 1 capsule = 20 mg, By Mouth, 2 times a day, # 60 capsule, 2 Refills, Soft Stop, 04/01/20 14:52:00 EST, [facility] [place], [place] - [id number], Dose increased 05/09/19. Label in [place]., 178, cm, 03/16/20 12:24:00 EST, Height, 153.2, [...] sleep apnea, Com plex sleep apnea(Confirmed) Active BHN/CCA/Media Job Titles-Remedios MárquezVxuaelf-[phone]/Health fdc, active care coordination(Confirmed) Active 1Impression: 1. [...]
--- OUTSIDE RECORDS SUMMARY | 2022-08-02 17:44 | XMS_ITS | Continuity of Care Document ---
Author Name Unknown Organization [facility] ter Address [address] [place] [address]- Care Team Providers Care Locomotive Observer Name Role Phone Lamine Lin MD Primary Care Physician [phone] Encounter [facility] [place] Date(s): 11/14/21 - 11/14/[address] [address]- Discharge Disposition: A-D/C Walkout Attending Physician: Not [...] 08/18/21 10:14:00 EDT, Route to Pharmacy Electronically, [place], [place] - [id number],Partial fill upon patient request if the prescripti... Start Date: 08/18/21 Status: Ordered buPROPion 150 mg/24 hours (XL) oral tablet, extended release 1 tablet, By Mouth, Daily, # 30 tablet, 0 Refills, Maintenance, 11/08/21 8:24:00 EDT, [facility], 30, TAKE 1 TABLET BY MOUTH ONCE DAILY, 177.8, cm, 10/20/21 8:51:00 EDT, Height, 136.078, kg, 09/02/21 19:37:00 EDT, Dry Weight Start Date: 11/08/21 Status: Ordered chlorthalidone 25 mg oral tablet 12.5 mg, 0.5, tablet, By Mouth, Daily, # 15 tablet, Refills 1, Tot. Refills 1, Maintenance, 08/18/21 10:14:00 EDT, Route to Pharmacy Electronically, [place], [place] - [id number], Partial fill upon patient request if the prescription... Start Date: 08/18/21 Status: Ordered docusate sodium 100 mg oral capsule 1 capsule, By Mouth, Daily, # 30 each, 1 Refills, Maintenance, 11/08/21 8:25:00 EDT, [facility], 177.8, cm, 10/20/21 8:51:00 EDT, Height, 136.078, kg, 09/02/21 19:37:00 EDT, Dry Weight Start Date: 11/08/21 Status: Ordered Freestyle Lite Lancets See Instructions, [...] 1 Refills, Maintenance, 08/18/21 10:14:00 EDT, Tablet, [facility], [place] - [id number], Partial fill upon patient request if the prescription is for a schedule II opioid drug., 17... Start Date: 08/18/21 Stop Date: 10/17/21 Status: Ordered hydrOXYzine pamoate 50 mg oral capsule = 50 mg, By Mouth, Every 6 hours, PRN Anxiety, # 60 capsule, 1 Refills, Maintenance, 08/18/21 10:15:00 EDT, Capsule, [facility], [facility] [id number], Partial fill upon patient request if the prescription is for a schedule II opioid drug... Start Date: 08/18/21 Status: Ordered loratadine 10 mg oral tablet 10 mg, 1, tablet, By Mouth, Daily, # 30 tablet, Refills 1, Tot. Refills 1, Maintenance, 08/18/21 10:15:00 EDT, Route to Pharmacy Electronically, [place], [place] - [id number], Partial fill upon patient request if the prescription is f... Start Date: 08/18/21 Stop Date: 10/17/21 Status: Ordered metFORMIN 500 mg oral tablet, extended release 1 tablet = 500 mg, By Mouth, Daily, with food Nigerien label please., # 30 tablet, 5 Refills, Maintenance, 10/20/21 9:49:00 EDT, ER Tablet, [facility] [id number], Partial fillupon patient request if the prescription is for a... Start Date: 10/20/21 Status: Ordered mupirocin 2% topical cream See Instructions, apply thin layer to face twice a day., # 30 Gm, 0 Refills, Maintenance, 10/05/21 8:55:00 EDT, [facility] [id number], Partial fill upon patient request if the prescription is for a schedule II opioid drug., ap... Start Date: 10/05/21 Status: Ordered mupirocin 2% topical ointment See Instructions, Topically 2 times a day, # 22 Gm, 0 Refills, Maintenance, 10/05/21 17:24:00 EDT, [facility] [id number], Partial fill upon patient request if the prescription is for a schedule II opioid drug., Topically 2 kiya... Start Date: 10/05/21 Status: Ordered paliperidone 234 mg/1.5 mL intramuscular suspension, extended release = 234 mg, Intramuscular, Every 28 days, Due on 09/13/2021, # 1 each, 1 Refills, Maintenance, 08/18/21 10:16:00 EDT, [facility], [facility] [id number], Partial fill upon patient request ifthe prescription [...] Maintenance,08/18/21 10:19:00 EDT, Route to Pharmacy Electronically, [facility] [place] - [id number], Partial fill upon patient request if the [...] sleep apnea, Com plex sleep apnea(Confirmed) Active BHN/CCA/Slitter Operator-Remedios MárquezInzvumh-[phone]/Health shelter, active care coordination(Confirmed) Active Treatment-emergent central [...] [Reference Range]: 1 Oxygen Saturation [94-100 %] 98 % (11/14/21 4:27 PM) Pulse Rate [55-90 bpm] 100 bpm *H* (11/14/21 4:27 PM) Blood Pressure [90-138/55-84 mm Hg] 137/ 84mm Hg (11/14/21 4:27 PM) Respiratory Rate [16-30 br/min] 16 br/mi n (11/14/21 4:27 PM) Temperature [96.8-100.4 DegF] 97.9 DegF (11/14/21 4:27 PM) Mode of Delivery (Oxygen) Room air (11/14/21 4:27 PM) Temperature Route Oral (11/14/21 4:27 PM) Social History Social History Type Response Smoking Status Never smoker entered on: 10/02/13 Sex Care Team Personnel Name: Delia ACOSTA, Lamine Covington Address: [address] [place] [address] [facility] [place], [place] [address]
--- OUTSIDE RECORDS SUMMARY | 2022-08-02 17:44 | XMS_ITS | Continuity of Care Document ---
Author Name Unknown Organization [facility] Address [address] [place] [address]- Care Team Providers Care Actuarial Director Name Role Phone Delia ACOSTA, Lamine Covington Primary Care Physician Encounter [facility] Date(s): 04/27/22 - 05/27/22 [facility] [address] [place] [address]- Allergies, Adverse Reactions, Alerts Substance Reaction Severity Status lisinopril dry cough Active Dust Mild Active Milk Products Nausea and vomiting Persistent Moderate Active cloNIDine confusion Active Immunizations Given and Recorded Vaccine Date Status Refusal Reason [id number] 12y+ bivalent booster vax 02/07/22 Given influenza [...] each, 1 Refills, Maintenance, 12/06/21 10:45:00 EDT, [facility], [facility] [id number], 177.8, cm, 12/06/21 10:26:00 EDT, Height, 136.078, kg, 09/02/21 19:37:00 EDT, Dry Weight Start Date: 12/06/21 Status: Ordered folic acid 1 mg oral tablet 1, tablet, By Mouth, Daily, # 30 tablet, Refills 5, Maintenance, 01/18/22 8:09:00 EST, Route to Pharmacy Electronically, [facility], 178, cm, 01/17/22 23:35:00 EST, Height, 101.4, kg, 01/12/22 14:14:00 EST, Dry Weight Start Date: 01/18/22 Status: Ordered gabapentin 600 mg oral tablet 1 tablet = 600 mg, By Mouth, 3 times a day, # 90 tablet, 5 Refills, Maintenance, 12/06/21 10:44:00 EDT, Tablet, [facility] [id number], Partial fill upon patient request if the prescription is for a schedule II opioid drug., 17... Start Date: 12/06/21 Stop Date: 06/04/22 Status: Ordered hydrOXYzine pamoate 50 mg oral capsule = 50 mg, By Mouth, Every 6 hours, PRN Anxiety, # 60 capsule, 0 Refills, Maintenance, 12/06/21 10:45:00 EDT, Capsule, [facility], [place] - [id number], Partial fill upon patient request if the prescription is for a schedule II opioid drug... Start Date: 12/06/21 Status: Ordered loratadine 10 mg oral tablet 10 mg, 1, tablet, By Mouth, Daily, # 30 tablet, Refills 3, Tot. Refills 3, Maintenance, 12/06/21 10:45:00 EDT, Route to Pharmacy Electronically, [facility] [id number], Partial fill upon patient request if the prescription is f... Start Date: 12/06/21 Stop Date: 04/05/22 Status: Ordered MiraLax oral powder for reconstitution = 17 Gm, By Mouth, Daily, dissolve in water before taking, # 527 Gm, 1 Refills, Maintenance, 02/07/22 10:30:00 EST, REC Powder, [place], [place] - [id number], Partial fill upon patient request if the [...] sleep apnea, Complex sleep apnea Confirmed Active BHN/CCA/Pants Busheler-Tia Jarrett [phone]/Health custodial, active care coordination Confirmed Active Treatment-emergent central [...] Team Personnel Name: Ela Beltrán RN Position: [facility] AMB Nurse Member Role: Primary Care Nurse Name: Alaina Gillette RN Position: [facility] RN Member Role: Primary Care Nurse Name: Kristyn Tapia RN Position: [facility] SN RN Member Role: Primary Care Nurse Name: Lorna Gentile NP Position: [facility] Associate Professional Member Role: Primary Care Nurse Address: Address: [address] [place] [id number]- Name: Venus Jaramillo RN Position: [facility] RN Member Role: Primary Care Nurse Name: Flor Donnelly RN Position: [facility] RN Member Role: Primary Care Nurse Name: Ruiz Matson RN Position: [facility] RN Member Role: Primary Care Nurse Name: Belle Ames RN Position: [facility] RN Member Role: Primary Care Nurse Name: Alex Rios RN Position: [facility] RN Member Role: Primary Care Nurse Name: Daniel Hernandez III, RN Position: [facility] RN Member Role: Primary Care Nurse Name: Jordi Carter MD Position: [facility] Renal MD Member Role: Lifetime Consulting Physician Address: Address: [address] [facility] [place] [address]- [place] Name: Loren Hamlin RN Position: [facility] RN Member Role: Primary Care Nurse Name: Malia Wise RN Position: [facility] RN Member Role: Primary Care Nurse Name: Jessica Dia RN Position: [facility] RN Member Role: Primary Care Nurse Name: Lamine Lin MD Position: [facility] Primary Care Physician Member Role: PCP Address: Address: [address] [place] [address]- Name: Rose Abraham RN Position: [facility] Hospital Elastic Assembler Member Role: Primary Care Nurse Name: Vinod Botello MD Position: [facility] Psychiatry MD Member Role: Lifetime Consulting Physician Address: Address: [address] [place] [address]- Care Team Related Persons Name: MALIA HARRIS Name: KATHLEEN JACQUES Address: home [address] [place] [address] Name: VIRGIL PARKS Address: home [address] [place] [address] Name: MICHAELA MONTENEGRO Address: home UNKNOWN Name: MIGUEL PUENTES Address: home [address] [place] [address]
--- OUTSIDE RECORDS SUMMARY | 2022-08-02 17:44 | XMS_ITS | Continuity of Care Document ---
Author Name Unknown Organization [facility] ter Address [address] [place] [address]- Care Team Providers Care Pathology Transcriptionist Name Role Phone Delia ACOSTA, Lamine Covington Primary Care Physician [place] [facility] [place] Date(s): 10/11/20 - 10/13/[address] [address]- Discharge Disposition: A-D/C Home Attending Physician: Tom DUMONT, Rena Admitting Physician: Get Shaw MD Referring Physician: Not on Staff, Referring [...] 18:13:00 EST, Aerosol, Route to Pharmacy Electronically, [id number], [facility], [facility] [id number], 177, cm... Start Date: 01/02/20 Status: Ordered amLODIPine 5 mg oral tablet 5 mg, 1, tablet, By Mouth, Daily, # 30 tablet, Refills 11, Tot. Refills 11, Maintenance, 02/03/20 16:45:00 EST, Route to Pharmacy Electronically, [facility] [id number], 178, cm, 01/28/20 6:28:00 EST, Height, 158, kg, 01/07/20... Start Date: 02/03/20 Status: Ordered Flonase 50 mcg/inh nasal spray 1 sprays, Nares, Both, 2 times a day, # 9.9 mL, 0 Refills, Maintenance, 02/24/20 11:15:00 EST, [place], [facility], [place] - [id number], 1 sprays Nares, Both 2 times a day, 178, cm, 02/04/20 15:21:00 EST, Height, 158, kg, 01/07/20 14:48:0... Start Date: 02/24/20 Status: Ordered gabapentin 300 mg oral capsule 300 mg, Capsule, By Mouth, 10/13/20 15:00:00 EDT Start Date: 10/13/20 Stop Date: 10/13/20 Status: Completed gabapentin 300 mg oral capsule 300 mg, Capsule, By Mouth, 10/13/20 9:00:00 EDT Start Date: 10/13/20 Stop Date: 10/13/20 Status: Completed gabapentin 300 mg oral capsule 300 mg, 1, capsule, By Mouth, 3 times a day, # 90 capsule, Refills 5, Tot. Refills 5, Maintenance, 08/21/20 11:48:00 EDT, Route to Pharmacy Electronically, [facility] [id number], Dose decreased 08/21/20, 177.9, cm, 08/20/20 10:0... Start Date: 08/21/20 Status: Ordered LORazepam 1 mg oral tablet 1 tablet = 1 mg, By Mouth, Daily at bedtime, 0 Refills, Maintenance, 10/11/20 22:55:00 EDT, Tablet,Partial fill upon patient request if the prescription is for a schedule II opioid drug. Start Date: 10/11/20 Status: Ordered metFORMIN 500 mg oral tablet, extended release 1 tablet = 500 mg, By Mouth, Daily, # 30 tablet, 11 Refills, Maintenance, 02/03/20 16:44:[place] [id number] Partial fill upon patient request if the [...] LEG PAIN LEFT LEG SWELLING RISK FOR BADXMY63.81 G46.33,RO6.2.M79.605,R22.42, 07/23/20 13:54:00 EDT, Supply Start Date: [...] 0 Refills, Maintenance, 09/07/20 17:58:00 EDT, Tablet, [facility] [place], [place] - [id number], Partial fill upon patient request if the [...] sleep apnea, Com plex sleep apnea(Confirmed) Active N/[facility]/Counsellors-Remedios Drhsugp-[phone]/Health shelter, active care coordination(Confirmed) Active Treatment-emergent central [...] Exam Date Time Procedure Performing Provider Status 10/11/20 6:38 AM Chest Portable Rachel Og; Aut h (Verified) Notes: (Chest Portable) Reason For Exam: Cough RESULT: Chest Portable Chest Portable Hx of Present Illness: Calling police because he is hearing people knocking on his window but police state there is no window. PAtient also with nausea and diarrhea and [place]; Reason: Cough; Clinical Question(s): Pneumonia; Special Instructions: This is a protocol film and radiologist should call any findings to the Charge Nurse or appropriate provider COMPARISON: 01/16/2020. FINDINGS: LINES AND TUBES: None. LUNGS AND PLEURA: The lungs are hyperexpanded. There is no evidence of focal airspace disease. No pleural effusion. No pneumothorax. HEART, MEDIASTINUM AND ZAIRE: Again demonstrated is a prominent cardiomediastinal silhouette. BONES AND SOFT TISSUES: No acute abnormality. IMPRESSION: Prominence of the cardiomediastinal silhouette without evidence of pulmonary pathology. WSN: [id number] Ordering Physician: Katerina Leblanc Dictated By: Tanesha Barragan MD Dictated Date/Time: 10/11/20 6:54 am Reviewed By: Tanesha Barragan MD Signed By: Tanesha Barragan MD Signed Date/Time: 10/11/20 6:54 am Transcribed By: TIP Transcribed Date/Time: 10/11/20 6:40 am Vital Signs Most recent to oldest [Reference Range]: 1 2 3 Height 178 cm (10/13/20 10:51 AM) 178 cm (10/13/20 9:43 AM) 178 cm (10/13/20 5:48 AM) Weight 150.1 kg (10/11/20 8:12 PM) Oxygen Saturation [94-100 %] 94 % (10/13/20 10:51 AM) 99 % (10/13/20 9:43 AM) 100 % (10/13/20 5:48 AM) Pulse Rate [55-90 bpm] 98 bpm *H* (10/13/20 10:51 AM) 91 bpm *H* (10/13/20 9:43 AM) 90 bpm (10/13/20 5:48 AM) Body Mass Index [18.5-24.99] 47.37 *>HHI* (10/11/20 8:12 PM) Blood Pressure [90-138/55-84 mm Hg] 141/82mm Hg *H* (10/13/20 10:51 AM) 136/82mm Hg (10/13/20 9:43 AM) 133/80mm Hg (10/13/20 5:48 AM) Respiratory Rate [16-30 br/min] 17 br/min (10/13/20 2:55 PM) 18 br/min (10/13/20 10:51 AM) 17 br/min (10/13/20 10:51 AM) Temperature [96.8-100.4 DegF] 98.1 DegF (10/13/20 10:51 AM) 97.4 DegF (10/13/20 5:48 AM) 97.3 DegF (10/12/20 11:08 PM) Mode of Delivery (Oxygen) Room air (10/13/20 10:51 AM) Room air (10/13/20 9:43 AM) Room air (10/13/20 5:48 AM) Blood pressure sites Arm, right (10/13/20 10:51 AM) Arm, left (10/13/20 9:43 AM) Arm, right (10/13/20 5:48 AM) Temperature Route Oral (10/13/20 10:51 AM) Oral (10/13/20 5:48 AM) Oral (10/12/20 11:08 PM) Dry Weight 151.0 kg (10/13/20 5:48 AM) 150.1 kg (10/11/20 8:12 PM) Dry Weight Obtained Via Bed scale (10/13/20 5:48 AM) Social History Social History Type Response Smoking Status Never smoker entered on: 10/02/13 Sex
--- OUTSIDE RECORDS SUMMARY | 2022-08-02 17:44 | XMS_ITS | Continuity of Care Document ---
Author Name Unknown Organization [facility] Address [address] [place] [address]- Care Team Providers Care Creative Perfumer Name Role Phone Delia ACOSTA, Lamine Covington Primary Care Physician [phone] Encounter [facility] [place] Date(s): 09/24/20 - 03/13/21 [facility] [address] [address]- Attending Physician: Sole Ley MD Admitting Physician: Sole Ley MD Referring Physician: Lamine Lin MD Allergies, [...] Mouth, Daily, # 30 tablet, 5 Refills, [facility], 177, cm, 02/04/21 10:29:00 EST,Height, 148, kg, 10/16/20 15:12:00 EDT, Dry Weight Start Date: 03/08/21 Status: Ordered chlorthalidone 25 mg oral tablet 12.5 mg, 0.5, tablet, By Mouth, Daily, # 15 tablet, Refills 1, Tot. Refills 1, Maintenance, 10/23/20 10:48:00 EDT, [id number] Partial fill upon patient request if the prescription is for a schedule II opioid... Start Date: 10/23/20 Status: Ordered Colace sodium 100 mg oral capsule 100 mg, 1, capsule, By Mouth, Daily in AM, # 30 capsule, Refills 1, Tot. Refills 1, Maintenance, 10/23/20 11:49:00 EDT, Route to Pharmacy Electronically, [facility]/pharmacy #[id number], Partial fill upon patientrequest if the prescription is for a schedule II op... Start Date: 10/23/20 Status: Ordered diclofenac 1% topical gel 1 application, Topically, 4 times a day, # 100 Gm, 0 Refills, Maintenance, 11/23/20 13:32:00 EDT, Gel, [place], [place] - [id number], Partial fill upon patient request if the prescription is for a schedule II opioid drug., 177, cm, 10... Start Date: 11/23/20 Status: Ordered diphenhydrAMINE 50 mg oral tablet = 50 mg, By Mouth, Every 6 hours, PRN Anxiety, # 60 tablet, 1 Refills, Maintenance, 10/23/20 10:48:00 EDT, [facility]t, [id number], Partial fill upon patient request if the prescription is for a schedule II opioid drug., 177, cm, 10/22/20 21:57:00... Start Date: 10/23/20 Status: Ordered folic acid 1 mg oral tablet See Instructions, TAKE ONE TABLET BY MOUTH EVERY DAY, # 30 tablet, Refills 5, Tot. Refills 5, Maintenance, 03/07/21 15:15:00 EST, Instructions Replace Required Details, Route to Pharmacy Electronically, [place], [place] - [id number],... Start Date: 03/07/21 Status: Ordered gabapentin 600 mg oral tablet 1 tablet, By Mouth, 3 times a day, # 90 tablet, 1 Refills, [facility], 177, cm, 02/04/21 10:29:00 EST, Height, 148, kg, 10/16/20 15:12:00 EDT, Dry Weight Start Date: 03/08/21 Status: Ordered loratadine 10 mg oral tablet 1, tablet, By Mouth, Daily, # 30 tablet, Refills 1, Route to Pharmacy Electronically, [facility], 177, cm, 12/17/20 10:34:00 EDT, Height, 148, kg, 10/16/20 15:12:00 EDT, Dry Weight Start Date: 01/01/21 Status: Ordered losartan 25 mg oral tablet 1 tablet, By Mouth, Daily, # 30 tablet, 5 Refills, [facility], 177, cm, 02/04/21 10:29:00 EST,Height, 148, kg, 10/16/20 15:12:00 EDT, Dry Weight Start Date: 03/08/21 Status: Ordered MetFORMIN (Eqv-Glucophage XR) 500 mg oral tablet, extended release 1 tablet, By Mouth, Daily, # 30 tablet, 11 Refills, [facility], 177, cm, 02/04/21 10:29:00 EST, Height, 148, kg, 10/16/20 15:12:00 EDT, Dry Weight Start Date: 02/10/21 Status: Ordered MiraLax oral powder for reconstitution = 17 Gm, By Mouth, Daily, # 255 Gm, 1 Refills, Maintenance, 10/23/20 10:49:00 EDT, [facility]/pharmacy #[id number], Partial fill upon patient [...] 10/23/20 10:48:00 EDT, Route to Pharmacy Electronically, [facility]/pharmacy #[id number], Partial fill upon patientrequest [...] 10/23/20 10:51:00 EDT, Route to Pharmacy Electronically, [facility]/pharmacy #[id number], Partial fill upon patient request if the prescription is for a schedule II opioid drug.... Start Date: 10/23/20 Status: Ordered risperiDONE 3 mg oral tablet 3 mg, 1, tablet, By Mouth, Daily at bedtime, # 30 tablet, Refills 1, Tot. Refills 1, Maintenance, 10/23/20 10:52:00 EDT, Route to Pharmacy Electronically, [facility]/pharmacy #[id number], Partial fill upon patient request if the prescription is for a schedule II o... Start Date: 10/23/20 Status: Ordered Tylenol 8 HR Arthritis Pain 650 mg oral tablet, extended release 1 tablet = 650 mg, By Mouth, Every 8 hours, PRN as needed for pain, # 50 tablet, 0 Refills, Maintenance, 12/17/20 15:15:00 EDT, ER Tablet, [facility] [place], [place] - [id number], Partial fillupon patient request if the prescription [...] sleep apnea, Com plex sleep apnea(Confirmed) Active BHN/CCA/Wares Sorter-Remedios [phone]/Health usp, active care coordination(Confirmed) Active Severe obesity(Confirmed) [...]
--- OUTSIDE RECORDS SUMMARY | 2022-08-02 17:44 | XMS_ITS | Continuity of Care Document ---
Author Name Unknown Organization [facility] Address [address] [place] [address]- Care Team Providers Care Hops Farmworker Name Role Phone Delia ACOSTA, Lamine Covington Primary Care Physician Encounter [facility] [place] Date(s): 01/02/20 - 02/01/20 [facility] [address] [address] Attending Physician: AdmMarsha bourne Admitting Physician: Admtr, [id number] Referring Physician: Admtr, [...] 18:13:00 EST, Aerosol, Route to Pharmacy Electronically, [id number], [place], [place] - [id number], 177, cm... Start Date: 01/02/20 Status: Ordered amLODIPine 5 mg oral tablet 5 mg, 1, tablet, By Mouth, Daily, # 30 tablet, Refills 11, Tot. Refills 11, Maintenance, 05/09/19 8:48:00 EDT, Route to Pharmacy Electronically, [place], [place] -, 177, cm, 04/02/2009:47:00 EST, Height, [...] 1 Refills, Maintenance, 01/02/20 18:13:00 EST, Tablet, [place], [place] - [id number], Label in Thai., 177, cm, 12/30/19 11:37:00 [...] Gm, 3 Refills, Maintenance, 08/28/19 8:53:00 EDT, [place], [place], [place] -, 2 sprays Nares, Both Daily in AM, 177, cm, 07/29/19 13:56:00 EDT, Height, 135, kg, 03/30/18 19:13:00 EST, Dry Weight Start Date: 08/28/19 Status: Ordered Flonase 50 mcg/inh nasal spray 1 sprays, Nares, Both, 2 times a day, # 9.9 mL, 0 Refills, Maintenance, 12/18/19 17:38:00 EDT, [place], [place], [place] - [id number], 1 sprays Nares, Both 2 times a day, 177, cm, 10/15/19 14:42:00 EDT, Height, 135, kg, 03/30/18 19:13:0... Start Date: 12/18/19 Status: Ordered metFORMIN 500 mg oral tablet, extended release See Instructions, TAKE ONE TABLET BY MOUTH DAILY, # 30 tablet, 5 Refills, Soft Stop, 05/09/19 8:49:00 EDT, [place], [place] -, 177, cm, 04/02/19 10:47:00 EST, [...] 01/28/20 9:40:00 EST, Route to Pharmacy Electronically, [facility], Partial fill upon patient request if the prescription is for a schedule II o... Start Date: 01/28/20 Status: Ordered omeprazole 20 mg oral enteric coated capsule 1 capsule = 20 mg, By Mouth, 2 times a day, # 60 capsule, 2 Refills, Soft Stop, 01/02/20 18:13:00 EST, [place], [place] - [id number], Dose increased 05/09/19. Label in Thai., 177, [...] sleep apnea, Com plex sleep apnea(Confirmed) Active BHN/CCA/Tack Driller-Remedios [phone]/Health custodial, active care coordination(Confirmed) Active 1Impression: 1. [...]
--- OUTSIDE RECORDS SUMMARY | 2022-08-02 17:44 | XMS_ITS | Continuity of Care Document ---
Author Name Unknown Organization [facility] Address [address] [place] [address]- Care Team Providers Care Counter Stitcher Name Role Phone Delia ACOSTA, Lamine Covington Primary Care Physician [phone] Encounter [facility] Date(s): 03/02/20 - 04/01/20 [facility] [address] [place] [address]- Allergies, Adverse Reactions, Alerts No Known Medication [...] 18:13:00 EST, Aerosol, Route to Pharmacy Electronically, [id number], [facility] [place], [place] - [id number], 177, cm... Start Date: 01/02/20 Status: Ordered amLODIPine 5 mg oral tablet 5 mg, 1, tablet, By Mouth, Daily, # 30 tablet, Refills 11, Tot. Refills 11, Maintenance, 02/03/20 16:45:00 EST, Route to Pharmacy Electronically, [facility] [place] - [id number], 178, cm, 01/28/20 6:28:00 EST, Height, 158, [...] 3 Refills, Maintenance, 02/24/20 11:16:00 EST, Tablet, [facility], [place] - [id number], Label in Cape Verdean., 178, cm, 02/04/20 15:21:00 EST, Height, 158, kg, 01/07/20 14:48:00 EST, Dry Weight Start Date: 02/24/20 Status: Ordered chlorthalidone 25 mg oral tablet 12.5 mg, 0.5, tablet, By Mouth, Daily, # 15 tablet, Refills 5, Tot. Refills 5, Maintenance, 02/04/20 15:34:00 EST, Route to Pharmacy Electronically, [facility], [place] - [id number], Partial fill upon patient request if the [...] mL, 0 Refills, Maintenance, 02/24/20 11:15:00 EST, [place], [facility], [place] - [id number], 1 sprays Nares, Both 2 times a day, 178, cm, 02/04/20 15:21:00 EST, Height, 158, kg, 01/07/20 14:48:0... Start Date: 02/24/20 Status: Ordered Flovent Diskus 100 mcg/inh inhalation powder 1 puffs, Inhalation, 2 times a day, # 60 each, 0 Refills, Maintenance, 03/03/20 10:49:00 EST, Powder, [facility] [id number], Partial fill upon patient request if the prescription is for a schedule II opioid drug., 1 puffs Inha... Start Date: 03/03/20 Status: Ordered Gas-X with Maalox 250 mg-62.5 mg oral capsule 2 capsule, By Mouth, Every 2 hours, PRN for indigestion, # 48 capsule, 0 Refills, Acute 04/13/20 14:59:00 EST, 03/13/20 14:59:00 EST, Capsule, [facility] [id number], Partial fill upon patient request if the prescription is for... Start Date: 03/13/20 Stop Date: 04/13/20 Status: Ordered GuaiFENesin DM 20 mg-200 mg/10 mL oral liquid 10 mL, By Mouth, Every 4 hours, PRN as needed for cough, not to exceed 6 doses/day, # 120 mL, 0 Refills, Maintenance, 03/03/20 11:05:00 EST, Liquid, [place], [place] - [id number], Partial fill upon patient request if the prescription... Start Date: 03/03/20 Status: Ordered metFORMIN 500 mg oral tablet, extended release 1 tablet = 500 mg, By Mouth, Daily, # 30 tablet, 11 Refills, Maintenance, 02/03/20 16:44:00 EST, ERTablet, [place], [place] - [id number], Partial fill upon patient request if the [...] 2 Refills, Soft Stop, 04/01/20 14:52:00 EST, [facility] [place], [place] - [id number], Dose increased 05/09/19. Label in [place] Verdean., 178, cm, 03/16/20 12:24:00 EST, Height, 153.2, [...] apnea, Com plex sleep apnea(Confirmed) Active BHN/CCA/Supervisor Melt House-Remedios [phone]/Health half-way, active care coordination(Confirmed) Active 1Impression: 1. [...]
--- OUTSIDE RECORDS SUMMARY | 2022-08-02 17:44 | XMS_ITS | Continuity of Care Document ---
Author Name Unknown Organization [facility] Address [address] [place] [address]- Care Team Providers Care Plaque Maker Name Role Phone Delia ACOSTA, Lamine Covington Primary Care Physician [phone] Encounter [facility] Date(s): 07/17/20 - 08/16/20 [facility] [address] [place], [place] [address] Allergies, Adverse Reactions, Alerts Substance Reaction [...] 18:13:00 EST, Aerosol, Route to Pharmacy Electronically, [id number], [facility] [place], [place] - [id number], 177, cm... Start Date: 01/02/20 Status: Ordered amLODIPine 5 mg oral tablet 5 mg, 1, tablet, By Mouth, Daily, # 30 tablet, Refills 11, Tot. Refills 11, Maintenance, 02/03/20 16:45:00 EST, Route to Pharmacy Electronically, [facility], [facility] [id number], 178, cm, 01/28/20 6:28:00 EST, Height, 158, [...] Refills, Maintenance, 07/01/20 9:26:00 EDT, Tablet, [facility], [facility] [id number], Label in Turkmen., 177.9, cm, 04/16/20 13:38:00 EST, Height, 153.2, kg, 03/16/20 12:24:00 EST, Dry We... Start Date: 07/01/20 Status: Ordered chlorthalidone 25 mg oral tablet 12.5 mg, 0.5, tablet, By Mouth, Daily, # 15 tablet, Refills 5, Tot. Refills 5, Maintenance, 07/31/20 11:20:00 EDT, Route to Pharmacy Electronically, [facility], [facility] [id number], Partial fill upon patient request if the [...] mL, 0 Refills, Maintenance, 02/24/20 11:15:00 EST, [place], [facility] [id number], 1 sprays Nares, Both 2 times a day, 178, cm, 02/04/20 15:21:00 EST, Height, 158, kg, 01/07/20 14:48:0... Start Date: 02/24/20 Status: Ordered Flovent Diskus 100 mcg/inh inhalation powder 1 puffs, Inhalation, 2 times a day, # 60 each, 0 Refills, Maintenance, 03/03/20 10:49:00 EST, Powder, [facility] [id number], Partial fill upon patient request if the prescription is for a schedule II opioid drug., 1 puffs Inha... Start Date: 03/03/20 Status: Ordered gabapentin 600 mg oral tablet 1 tablet = 600 mg, By Mouth, 3 times a day, # 90 tablet, 0 Refills, Maintenance, 07/17/20 14:13:00 EDT, Tablet, [facility] [id number], Partial fill upon patient request if the prescription is for a schedule II opioid drug., 17... Start Date: 07/17/20 Status: Ordered GuaiFENesin DM 20 mg-200 mg/10 mL oral liquid 10 mL, By Mouth, Every 4 hours, PRN as needed for cough, not to exceed 6 doses/day, # 120 mL, 0 Refills, Maintenance, 03/03/20 11:05:00 EST, Liquid, [facility] [id number], Partial fill upon patient request if the prescription... Start Date: 03/03/20 Status: Ordered metFORMIN 500 mg oral tablet, extended release 1 tablet = 500 mg, By Mouth, Daily, # 30 tablet, 11 Refills, Maintenance, 02/03/20 16:44:00 EST, ERTablet, [facility] [id number], Partial fill upon patient request if the prescription is for a schedule II opioid drug., 178, c... Start Date: 02/03/20 Status: Ordered non slip bath mat non slip bath mat, See Instructions, # 1 each, Refills 0, Tot. Refills 0, Maintenance, dx: ESHA, SOB, LEFT LEG PAIN LEFT LEG SWELLING RISK FOR LWJZVY13.81 G46.33,RO6.2.M79.605,R22.42, 07/23/20 13:54:00 EDT, Supply Start Date: [...] 01/28/20 9:40:00 EST, Route to Pharmacy Electronically, [facility], Partial fill upon patient request if the prescription is for a schedule II o... Start Date: 01/28/20 Status: Ordered omeprazole 20 mg oral enteric coated capsule 1 capsule = 20 mg, By Mouth, 2 times a day, # 60 capsule, 2 Refills, Soft Stop, 07/01/20 9:26:00 EDT, [place], [place] - [id number], Label in Turkmen, 177.9, cm, 04/16/20 13:38:00 EST, Height, 153.2, [...] Gynecomastia(Confirmed) Active Hypercholesterolemia(Confirmed) Active Hypertension(Confirmed) Active Wenckebach(Confirmed) 2013 Active Morbid obesity with BMI of 4 5.0-49.9, adult(Confirmed) Active NAFLD (nonalcoholic fatty li evelia disease)(Confirmed) 2 Active Obstructive sleep apnea, Com plex sleep apnea(Confirmed) Active BHN/CCA/Intake Counselor-Remedios MárquezPkheefc-[phone]/Health group home, active care coordination(Confirmed) Active 1On EGD in [...] the findings. Signature Line Dictated By: Catrachita Shha MD Dictated Date/Time: 02/25/11 11:07 a Social History Social History Type Response Smoking Status Never smoker entered on: 10/02/13 Sex
--- OUTSIDE RECORDS SUMMARY | 2022-08-02 17:44 | XMS_ITS | Continuity of Care Document ---
Author Name Unknown Organization [facility] Address [address] [place] [address]- Care Team Providers Care Master Rigger Name Role Phone Delia ACOSTA, Lamine Covington Primary Care Physician Encounter [facility] Date(s): 09/07/20 - 10/07/20 [facility] [address] [place] [address]- Allergies, Adverse Reactions, Alerts Substance Reaction Severity [...] 18:13:00 EST, Aerosol, Route to Pharmacy Electronically, [id number], [facility] [place], [place] - [id number], 177, cm... Start Date: 01/02/20 Status: Ordered amLODIPine 5 mg oral tablet 5 mg, 1, tablet, By Mouth, Daily, # 30 tablet, Refills 11, Tot. Refills 11, Maintenance, 02/03/20 16:45:00 EST, Route to Pharmacy Electronically, [facility], [facility] [id number], 178, cm, 01/28/20 6:28:00 EST, Height, 158, kg, 01/07/20... Start Date: 02/03/20 Status: Ordered cetirizine 10 mg oral tablet 1 tablet = 10 mg, By Mouth, Daily, # 30 tablet, 5 Refills, Maintenance, 07/01/20 9:26:00 EDT, Tablet, [facility], [facility] [id number], Label in Turkmen., 177.9, cm, 04/16/20 13:38:00 EST, Height, 153.2, kg, 03/16/20 12:24:00 EST, Dry We... Start Date: 07/01/20 Status: Ordered chlorthalidone 25 mg oral tablet 12.5 mg, 0.5, tablet, By Mouth, Daily, # 15 tablet, Refills 5, Tot. Refills 5, Maintenance, 07/31/20 11:20:00 EDT, Route to Pharmacy Electronically, [facility], [facility] [id number], Partial fill upon patient request if the prescription... Start Date: 07/31/20 Status: Ordered Flonase 50 mcg/inh nasal spray 1 sprays, Nares, Both, 2 times a day, # 9.9 mL, 0 Refills, Maintenance, 02/24/20 11:15:00 EST, [place], [facility], [facility] [id number], 1 sprays Nares, Both 2 times a day, 178, cm, 02/04/20 15:21:00 EST, Height, 158, kg, 01/07/20 14:48:0... Start Date: 02/24/20 Status: Ordered gabapentin 300 mg oral capsule 300 mg, 1, capsule, By Mouth, 3 times a day, # 90 capsule, Refills 5, Tot. Refills 5, Maintenance, 08/21/20 11:48:00 EDT, Route to Pharmacy Electronically, [place], [place] - [id number], Dose decreased 08/21/20, 177.9, cm, 08/20/20 10:0... Start Date: 08/21/20 Status: Ordered metFORMIN 500 mg oral tablet, extended release 1 tablet = 500 mg, By Mouth, Daily, # 30 tablet, 11 Refills, Maintenance, 02/03/20 16:44:00 EST, ERTablet, [place], [place] - [id number], Partial fill upon patient request if the prescription is for a schedule II opioid drug., 178, c... Start Date: 02/03/20 Status: Ordered non slip bath mat non slip bath mat, See Instructions, # 1 each, Refills 0, Tot. Refills 0, Maintenance, dx: ESHA, SOB, LEFT LEG PAIN LEFT LEG SWELLING RISK FOR SEDSMZ13.81 G46.33,RO6.2.M79.605,R22.42, 07/23/20 13:54:00 EDT, Supply Start Date: 07/23/20 Status: Ordered olanzapine 5 mg oral tablet 5 mg, 1, tablet, By Mouth, Daily in AM, # 30 tablet, Refills 0, Tot. Refills 0, Maintenance, 01/28/20 9:40:00 EST, Route to Pharmacy Electronically, [facility], Partial fill upon patient request if the prescription is for a schedule II o... Start Date: 01/28/20 Status: Ordered omeprazole 20 mg oral enteric coated capsule 1 capsule, By Mouth, 2 times a day, # 60 capsule, 2 Refills, Maintenance, 09/30/20 8:09:00 EDT, [facility], 177.9, cm, 09/22/20 12:43:00 EDT, Height, 160.8, [...] 0 Refills, Maintenance, 09/07/20 17:58:00 EDT, Tablet, [place], [place] - [id number], Partial fill upon patient request if the [...] sleep apnea, Com plex sleep apnea(Confirmed) Active N/[facility]/Cable Worker Helper-Remedios [id number]-[phone]/Health custodial, active care coordination(Confirmed) Active Treatment-emergent central s [...]
--- OUTSIDE RECORDS SUMMARY | 2022-08-02 17:44 | XMS_ITS | Continuity of Care Document ---
Author Name Unknown Organization [facility] Address [address] [place] [address]- Care Team Providers Care Narrow Gauge Operator Name Role Phone Delia ACOSTA, Lamine Covington Primary Care Physician [place] [facility] [place] 12/05/21 [facility] [address] [place] [address]- Allergies, Adverse Reactions, Alerts Substance Reaction Severity Status lisinopril dry cough Active Dust Mild Active cloNIDine confusion Active Milk Products Nausea and vomiting Persistent Moderate Active Immunizations Given and Recorded Vaccine Date [...] 08/18/21 10:14:00 EDT, Route to Pharmacy Electronically, [facility] [place], [place] - [id number],Partial fill upon patient request if the prescripti... Start Date: 08/18/21 Status: Ordered buPROPion 150 mg/24 hours (XL) oral tablet, extended release 1 tablet, By Mouth, Daily, # 30 tablet, 0 Refills, Maintenance, 12/02/21 7:44:00 EDT, [facility] [id number], 30, 1 tablet By Mouth Daily, 177.8, cm, 10/20/21 8:51:00 EDT, Height, 136.078, kg, 09/02/21 19:37:00 EDT, Dry Weight Start Date: 12/02/21 Status: Ordered chlorthalidone 25 mg oral tablet 12.5 mg, 0.5, tablet, By Mouth, Daily, # 15 tablet, Refills 1, Tot. Refills 1, Maintenance, 08/18/21 10:14:00 EDT, Route to Pharmacy Electronically, [place], [place] - [id number], Partial fill upon patient request if the prescription... Start Date: 08/18/21 Status: Ordered docusate sodium 100 mg oral capsule 1 capsule, By Mouth, Daily, # 30 each, 1 Refills, Maintenance, 11/08/21 8:25:00 EDT, [facility], 177.8, cm, 10/20/21 8:51:00 EDT, Height, [...] 1 Refills, Maintenance, 08/18/21 10:14:00 EDT, Tablet, [facility] [id number], Partial fill upon patient request if the prescription is for a schedule II opioid drug., 17... Start Date: 08/18/21 Stop Date: 10/17/21 Status: Ordered hydrOXYzine pamoate 50 mg oral capsule = 50 mg, By Mouth, Every 6 hours, PRN Anxiety, # 60 capsule, 1 Refills, Maintenance, 08/18/21 10:15:00 EDT, Capsule, [place], [place] - [id number], Partial fill upon patient request if the prescription is for a schedule II opioid drug... Start Date: 08/18/21 Status: Ordered loratadine 10 mg oral tablet 10 mg, 1, tablet, By Mouth, Daily, # 30 tablet, Refills 1, Tot. Refills 1, Maintenance, 08/18/21 10:15:00 EDT, Route to Pharmacy Electronically, [place], [place] - [id number], Partial fill upon patient request if the prescription is f... Start Date: 08/18/21 Stop Date: 10/17/21 Status: Ordered metFORMIN 500 mg oral tablet, extended release 1 tablet = 500 mg, By Mouth, Daily, with food Moldovan label please., # 30 tablet, 5 Refills, Maintenance, 12/01/21 16:13:00 EDT, ER Tablet, [facility] [id number], Partial fill upon patient request if the prescription is for a... Start Date: 12/01/21 Status: Ordered mupirocin 2% topical cream See Instructions, apply thin layer to face twice a day., # 30 Gm, 0 Refills, Maintenance, 10/05/21 8:55:00 EDT, [facility] [id number], Partial fill upon patient request if the prescription is for a schedule II opioid drug., ap... Start Date: 10/05/21 Status: Ordered mupirocin 2% topical ointment See Instructions, Topically 2 times a day, # 22 Gm, 0 Refills, Maintenance, 10/05/21 17:24:00 EDT, [facility] [id number], Partial fill upon patient request if the prescription is for a schedule II opioid drug., Topically 2 kiya... Start Date: 10/05/21 Status: Ordered paliperidone 234 mg/1.5 mL intramuscular suspension, extended release = 234 mg, Intramuscular, Every 28 days, Due on 09/13/2021, # 1 each, 1 Refills, Maintenance, 08/18/21 10:16:00 EDT, [facility] [id number], Partial fill upon patient request ifthe prescription [...] Maintenance,08/18/21 10:19:00 EDT, Route to Pharmacy Electronically, [facility] [id number], Partial fill upon patient request if the presc... Start Date: 08/18/21 Status: Ordered Problem List Condition Confirmation Course [...] liver disease) 2 Confirmed Active Obese class II Confirmed Active Obstructive sleep apnea, Complex sleep apnea Confirmed Active BHN/CCA/Star[employer] Clerk-Remedios MárquezUxlniqi-[phone]/Heal th correction, active care coordination Confirmed Active Treatment-emergent [...] on: 10/02/13 Sex Patient Care team information Personnel Name: Lamine Lin MD Address: Address: [address] [place] [id number]
--- OUTSIDE RECORDS SUMMARY | 2022-08-02 17:44 | XMS_ITS | Continuity of Care Document ---
Author Name Unknown Organization [facility] Address [address] [place] [address]- Care Team Providers Care Lawn Service Worker Name Role Phone Delia ACOSTA, Lamine Covington Primary Care Physician [place] [facility] [place] 12[place]/21 [facility] [address] [place] [address]- Attending Physician: Not on Staff, Attending MD [...] 12/06/21 10:46:00 EDT, Route to Pharmacy Electronically, [facility] [place], [place] - [id number],Partial fill upon patient request if the prescripti... Start Date: 12/06/21 Status: Ordered buPROPion 150 mg/24 hours (XL) oral tablet, extended release 1 tablet, By Mouth, Daily, # 30 tablet, 0 Refills, Maintenance, 12/02/21 7:44:00 EDT, [facility] [id number], 30, 1 tablet By Mouth Daily, 177.8, cm, 10/20/21 8:51:00 EDT, Height, 136.078, kg, 09/02/21 19:37:00 EDT, Dry Weight Start Date: 12/02/21 Status: Ordered docusate sodium 100 mg oral capsule 1 capsule, By Mouth, Daily, # 30 each, 1 Refills, Maintenance, 12/06/21 10:45:00 EDT, [facility] [id number], 177.8, cm, 12/06/21 10:26:00 EDT, Height, 136.078, kg, 09/02/21 19:37:00 EDT, Dry Weight Start Date: 12/06/21 Status: Ordered gabapentin 600 mg oral tablet 1 tablet = 600 mg, By Mouth, 3 times a day, # 90 tablet, 5 Refills, Maintenance, 12/06/21 10:44:00 EDT, Tablet, [facility] [id number], Partial fill upon patient request if the prescription is for a schedule II opioid drug., 17... Start Date: 12/06/21 Stop Date: 06/04/22 Status: Ordered hydrOXYzine pamoate 50 mg oral capsule = 50 mg, By Mouth, Every 6 hours, PRN Anxiety, # 60 capsule, 0 Refills, Maintenance, 12/06/21 10:45:00 EDT, Capsule, [facility] [place] - [id number], Partial fill upon patient request if the prescription is for a schedule II opioid drug... Start Date: 12/06/21 Status: Ordered loratadine 10 mg oral tablet 10 mg, 1, tablet, By Mouth, Daily, # 30 tablet, Refills 3, Tot. Refills 3, Maintenance, 12/06/21 10:45:00 EDT, Route to Pharmacy Electronically, [facility] [place] Ilya [id number], Partial fill upon patient request if the prescription is f... Start Date: 12/06/21 Stop Date: 04/05/22 Status: Ordered paliperidone 234 mg/1.5 mL intramuscular suspension, extended release = 234 mg, Intramuscular, Every 28 days, Due on 09/13/2021, # 1 each, 1 Refills, Maintenance, 08/18/21 10:16:00 EDT, [place], [place] - [id number], Partial fill upon patient request ifthe prescription [...] Maintenance,12/06/21 10:45:00 EDT, Route to Pharmacy Electronically, [place], [place] - [id number], Partial fill upon patient request if the [...] sleep apnea, Complex sleep apnea Confirmed Active BHN/CCA/Spa Host-Tia Jarrett [phone]/[facility], active care coordination Confirmed Active Treatment-emergent [...] Team Personnel Name: Suzy Yanes RN Position: [facility] RN Member Role: Primary Care Nurse Name: Ela Beltrán RN Position: [facility] AMB Nurse Member Role: Primary Care Nurse Name: Alaina Gillette RN Position: [facility] RN Member Role: Primary Care Nurse Name: Lorna Gentile NP Position: [facility] Associate Professional Member Role: Primary Care Nurse Address: Address: [address] [place] [address]- Name: Venus Jaramillo Position: [facility] RN Member Role: Primary Care Nurse Name: Flor Donnelly RN Position: [facility] RN Member Role: Primary Care Nurse Name: Ruiz Matosn RN Position: [facility] RN Member Role: Primary Care Nurse Name: Belle Ames RN Position: [facility] RN Member Role: Primary Care Nurse Name: Alex Rios RN Position: [facility] RN Member Role: Primary Care Nurse Name: Daniel Hernandez III, RN Position: [facility] RN Member Role: Primary Care Nurse Name: Jordi Carter MD Position: [facility] Renal MD Member Role: Lifetime Consulting Physician Address: Address: [address] [place] [address] [address] [facility], [place] [address]- [place] Name: Loren Hamlin RN Position: [facility] RN Member Role: Primary Care Nurse Name: Malia Wise RN Position: [facility] RN Member Role: Primary Care Nurse Name: Kristyn Salcido RN Position: S RN Member Role: Primary Care Nurse Name: Amaya Ontiveros RN Position: S RN Member Role: Primary Care Nurse Name: Lamine Lin MD Position: [facility] Primary Care Physician Member Role: PCP Address: Address: [address] [facility] [place] [address]- Name: Renzo Lyons RN Position: [facility] RN Member Role: Primary Care Nurse Name: Rose Abraham RN Position: [facility] Hospital Pipeline Executive Member Role: Primary Care Nurse Name: Vinod Botello MD Position: [facility] Psychiatry MD Member Role: Lifetime Consulting Physician Address: Address: [address] [place] [address]- Care Team Related Persons Name: MALIA HARRIS Name: KATHLEEN JACQUES Address: home [address] [place] [address] Name: VIRGIL PARKS Address: home [address] [place] [address] Name: MICHAELA MONTENEGRO Address: home UNKNOWN Name: MIGUEL PUENTES Address: home [address] [place] [address]
--- OUTSIDE RECORDS SUMMARY | 2022-08-02 17:44 | XMS_ITS | Continuity of Care Document ---
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 Start Date: 10/23/20 Status: Ordered chlorthalidone 25 mg oral tablet 12.5 mg, 0.5, tablet, By Mouth, Daily, # 15 tablet, Refills 1, Tot. Refills 1, Maintenance, 10/23/20 10:48:00 EDT, [id number] Partial fill upon patient request if the prescription is for a schedule II opioid... Start Date: 10/23/20 Status: Ordered Colace sodium 100 mg oral capsule 100 mg, 1, capsule, By Mouth, Daily in AM, # 30 capsule, Refills 1, Tot. Refills 1, Maintenance, 10/23/20 11:49:00 EDT, Route to Pharmacy Electronically, [facility]/pharmacy #[id number], Partial fill upon patientrequest if the prescription is for a schedule II op... Start Date: 10/23/20 Status: Ordered diclofenac 1% topical gel 1 application, Topically, 4 times a day, # 100 Gm, 0 Refills, Maintenance, 11/23/20 13:32:00 EDT, Gel, [place], [place] - [id number], Partial fill upon patient request if the prescription is for a schedule II opioid drug., 177, cm, 10... Start Date: 11/23/20 Status: Ordered diphenhydrAMINE 50 mg oral tablet = 50 mg, By Mouth, Every 6 hours, PRN Anxiety, # 60 tablet, 1 Refills, Maintenance, 10/23/20 10:48:00 EDT, Tablet, [facility]/pharmacy #[id number], Partial fill upon patient request if the prescription is for a schedule II opioid drug., 177, cm, 10/22/20 21:57:00... Start Date: 10/23/20 Status: Ordered folic acid 1 mg oral tablet 1 mg, 1, tablet, By Mouth, Daily, # 30 tablet, Refills 1, Tot. Refills 1, Maintenance, 10/23/20 10:48:00 EDT, Route to Pharmacy Electronically, [facility]/pharmacy #[id number], Partial fill upon patient request if the prescription is for a schedule II opioid drug.... Start Date: 10/23/20 Status: Ordered gabapentin 600 mg oral tablet 1 tablet = 600 mg, By Mouth, 3 times a day, # 90 tablet, 1 Refills, Maintenance, 10/23/20 10:53:00 EDT, [facility]acy [id number], Partial fill upon patient [...] Gm, 1 Refills, Maintenance, 10/23/20 10:49:00 EDT, [facility]/pharmacy #[id number], Partial fill upon [...] 10/23/20 10:51:00 EDT, Route to Pharmacy Electronically, [facility]/pharmacy #[id number], Partial fill upon patient request if the prescription is for a schedule II opioid drug.... Start Date: 10/23/20 Status: Ordered risperiDONE 3 mg oral tablet 3 mg, 1, tablet, By Mouth, Daily at bedtime, # 30 tablet, Refills 1, Tot. Refills 1, Maintenance, 10/23/20 10:52:00 EDT, [id number] Partial fill upon patient request if the prescription is for a schedule II o... Start Date: 10/23/20 Status: Ordered Tylenol 8 HR Arthritis Pain 650 mg oral tablet, extended release 1 tablet = 650 mg, By Mouth, Every 8 hours, PRN as needed for pain, # 50 tablet, 0 Refills, Maintenance, 12/17/20 15:15:00 EDT, ER Tablet, [place], [place] - [id number], Partial fillupon patient request if the prescription [...] sleep apnea, Com plex sleep apnea(Confirmed) Active BHN/CCA/Cancer Program Consultant-Remedios MárquezXpscikh-[phone]/Health long-term, active care coordination(Confirmed) Active Treatment-emergent central s [...] oldest [Reference Range]: 1 Height 177 cm (12/17/20 10:34 AM) Oxygen Saturation [94-100 %] 97 % (12/17/20 10:34 AM) Pulse Rate [55-90 bpm] 97 bpm *H* (12/17/20 10:34 AM) Blood Pressure [90-138/55-84 mm Hg] 163/ 78mm Hg *H* (12/17/20 10:34 AM) Respiratory Rate [16-30 br/min] 24 br/mi n (12/17/20 10:34 AM) Temperature [96.8-100.4 DegF] 97.9 DegF (12/17/20 10:34 AM) Mode of Delivery (Oxygen) Room air (12/17/20 10:34 AM) Blood pressure sites Arm, left (12/17/20 10:34 AM) Temperature Route Temporal (12/17/20 10:34 AM) Social History Social History Type Response Smoking Status Never smoker entered on: 10/02/13 Sex
--- OUTSIDE RECORDS SUMMARY | 2022-08-02 17:44 | XMS_ITS | Continuity of Care Document ---
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 [place] Date(s): 12/17/20 - 01/16/21 [facility] [address] [place], [place] [address] Attending Physician: Not on Staff, Attending [...] 10/23/20 10:46:00 EDT, Route to Pharmacy Electronically, [facility]/pharmacy #[id number], Partial fill upon patient request if the prescription is for a schedule II opioid drug... Start Date: 10/23/20 Status: Ordered chlorthalidone 25 mg oral tablet 12.5 mg, 0.5, tablet, By Mouth, Daily, # 15 tablet, Refills 1, Tot. Refills 1, Maintenance, 10/23/20 10:48:00 EDT, Route to Pharmacy Electronically, [facility]/pharmacy #[id number], Partial fill upon patient request if the prescription is for a schedule II opioid... Start Date: 10/23/20 Status: Ordered Colace sodium 100 mg oral capsule 100 mg, 1, capsule, By Mouth, Daily in AM, # 30 capsule, Refills 1, Tot. Refills 1, Maintenance, 10/23/20 11:49:00 EDT, Route to Pharmacy Electronically, [facility]/pharmacy #[id number], Partial fill upon patientrequest if the prescription is for a schedule II op... Start Date: 10/23/20 Status: Ordered diclofenac 1% topical gel 1 application, Topically, 4 times a day, # 100 Gm, 0 Refills, Maintenance, 11/23/20 13:32:00 EDT, Gel, [facility] [place], [place] - [id number], Partial fill upon patient request if the prescription is for a schedule II opioid drug., 177, cm, 10... Start Date: 11/23/20 Status: Ordered diphenhydrAMINE 50 mg oral tablet = 50 mg, By Mouth, Every 6 hours, PRN Anxiety, # 60 tablet, 1 Refills, Maintenance, 10/23/20 10:48:00 EDT, Tablet, [facility]/pharmacy #[id number], Partial fill upon patient request if the prescription is for a schedule II opioid drug., 177, cm, 10/22/20 21:57:00... Start Date: 10/23/20 Status: Ordered folic acid 1 mg oral tablet 1, tablet, By Mouth, Daily, # 30 tablet, Refills 1, Route to Pharmacy Electronically, [facility], 177, cm, 12/17/20 10:34:00 EDT, Height, 148, kg, 10/16/20 15:12:00 EDT, Dry Weight Start Date: 01/01/21 Status: Ordered gabapentin 600 mg oral tablet 1 tablet, By Mouth, 3 times a day, # 90 tablet, 1 Refills, [facility], 177, cm, 12/17/20 10:34:00 EDT, Height, 148, kg, 10/16/20 15:12:00 EDT, Dry Weight Start Date: 01/01/21 Status: Ordered loratadine 10 mg oral tablet 1, tablet, By Mouth, Daily, # 30 tablet, Refills 1, Route to Pharmacy Electronically, [facility], 177, cm, 12/17/20 10:34:00 EDT, Height, 148, kg, 10/16/20 15:12:00 EDT, Dry Weight Start Date: 01/01/21 Status: Ordered losartan 25 mg oral tablet 25 mg, 1, tablet, By Mouth, Daily, # 30 tablet, Refills 1, Tot. Refills 1, Maintenance, 10/23/20 10:47:00 EDT, Route to Pharmacy Electronically, [facility]/pharmacy #[id number], Partial fill upon patient request if the prescription is for a schedule II opioid drug... Start Date: 10/23/20 Status: Ordered metFORMIN 500 mg oral tablet, extended release 1 tablet = 500 mg, By Mouth, Daily, # 30 tablet, 1 Refills, Maintenance, 10/23/20 10:47:00 EDT, ER Tablet, [facility]/pharmacy #[id number], Partial fill upon patient request if the prescription is for a schedule II opioid drug., 177, cm, 10/22/20 21:57:00 EDT, Hei... Start Date: 10/23/20 Status: Ordered MiraLax oral powder for reconstitution = 17 Gm, By Mouth, Daily, # 255 Gm, 1 Refills, Maintenance, 10/23/20 10:49:00 EDT, [facility]/pharmacy #[id number], Partial fill upon patient request if the prescription is for a schedule II opioid drug., 17 Gm By Mouth Daily, 177, cm, 10/22/20 21:57:00 EDT, Heigh... Start Date: 10/23/20 Status: Ordered OXcarbazepine 300 mg oral tablet 300 mg, 1, tablet, By Mouth, 2 times a day, # 60 tablet, Refills 1, Tot. Refills 1, Maintenance, 10/23/20 10:48:00 EDT, Route to Pharmacy Electronically, [facility]/pharmacy #[id number], Partial fill upon patientrequest if the [...] 10/23/20 10:51:00 EDT, Route to Pharmacy Electronically, [facility]/pharmacy #[id number], Partial fill upon patient request if the prescription is for a schedule II opioid drug.... Start Date: 10/23/20 Status: Ordered risperiDONE 3 mg oral tablet 3 mg, 1, tablet, By Mouth, Daily at bedtime, # 30 tablet, Refills 1, Tot. Refills 1, Maintenance, 10/23/20 10:52:00 EDT, Route to Pharmacy Electronically, [facility]/pharmacy #[id number], Partial fill upon patient request if the prescription is for a schedule II o... Start Date: 10/23/20 Status: Ordered Tylenol 8 HR Arthritis Pain 650 mg oral tablet, extended release 1 tablet = 650 mg, By Mouth, Every 8 hours, PRN as needed for pain, # 50 tablet, 0 Refills, Maintenance, 12/17/20 15:15:00 EDT, ER Tablet, [place], [place] - [id number], Partial fillupon patient request if the prescription [...] sleep apnea, Com plex sleep apnea(Confirmed) Active BHN/CCA/End Trimmer-Remedios MárquezKievvnt-[phone]/Health nursing home, active care coordination(Confirmed) Active Treatment-emergent central s [...]
--- OUTSIDE RECORDS SUMMARY | 2022-08-02 17:44 | XMS_ITS | Continuity of Care Document ---
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 Start Date: 06/09/21 Stop Date: 08/08/21 Status: Ordered benztropine 0.5 mg oral tablet 0.5 mg, 1, tablet, By Mouth, 2 times a day, # 60 tablet, Refills 1, Tot. Refills 1, Maintenance, 06/09/21 10:36:00 EDT, Route to Pharmacy Electronically, [facility] [id number], Partial fill upon patient request if the prescrip... Start Date: 06/09/21 Status: Ordered docusate-senna 50 mg-8.6 mg oral capsule 2 capsule, By Mouth, 2 times a day, # 120 capsule, 1 Refills, Maintenance, 06/09/21 10:36:00 EDT, Capsule, [facility] [id number], Partial fill upon patient request if the prescription is for a schedule II opioid drug., 2 capsu... Start Date: 06/09/21 Status: Ordered gabapentin 600 mg oral tablet 1 tablet = 600 mg, By Mouth, 3 times a day, # 90 tablet, 1 Refills, Maintenance, 06/09/21 10:33:00 EDT, Tablet, [place], [place] - [id number], Partial fill upon patient request if the prescription is for a schedule II opioid drug., 17... Start Date: 06/09/21 Stop Date: 08/08/21 Status: Ordered hydrOXYzine pamoate 50 mg oral capsule = 50 mg, By Mouth, Every 6 hours, PRN Anxiety, # 60 capsule, 1 Refills, Maintenance, 06/09/21 10:36:00 EDT, Capsule, [place], [place] - [id number], Partial fill upon patient request if the prescription is for a schedule II opioid drug... Start Date: 06/09/21 Status: Ordered lamotrigine 25 mg oral tablet 25 mg, 1, tablet, By Mouth, Daily, # 30 tablet, Refills 1, Tot. Refills 1, Maintenance, 06/09/21 10:36:00 EDT, Route to Pharmacy Electronically, [facility] [id number], Partial fill upon patient request if the prescription is f... Start Date: 06/09/21 Status: Ordered loratadine 10 mg oral tablet 10 mg, 1, tablet, By Mouth, Daily, # 30 tablet, Refills 1, Tot. Refills 1, Maintenance, 06/09/21 10:33:00 EDT[id number] Partial fill upon patient request if the prescription is f... Start Date: 06/09/21 Stop Date: 08/08/21 Status: Ordered losartan 25 mg oral tablet 25 mg, 1, tablet, By Mouth, Daily, Hold if SBP<100mm Hg, # 30 tablet, Refills 1, Tot. Refills 1,Maintenance, 06/09/21 10:33:00 EDT, [id number] Partial fill upon patient request if... Start Date: 06/09/21 Stop Date: 08/08/21 Status: Ordered losartan 25 mg oral tablet 25 mg, Tablet, By Mouth, 06/25/21 9:00:00 EDT Start Date: 06/25/21 Stop Date: 06/25/21 Status: Completed MetFORMIN (Eqv-Glucophage XR) 500 mg oral tablet, extended release 1 tablet, By Mouth, Daily, for 30 days, # 30 tablet, 1 Refills, Physician Stop 08/08/21 10:34:00 EDT, 06/09/21 10:34:00 EDT, [facility] [place] [id number], 178, cm, 06/09/21 9:53:00 EDT, Height, 140, kg, 05/17/21 19:30:00 EDT, Dry Weight Start Date: 06/09/21 Stop Date: 08/08/21 Status: Ordered Nicotine 2 mg gum = 2 mg, Chew, Every 2 hours, PRN Other, cigarette craving, # 40 each, 0 Refills, Maintenance, 06/09/21 10:36:00 EDT, Gum, [facility] [place] [id number], Partial fill upon patient request if the prescription is for a schedule II opioid... Start Date: 06/09/21 Status: Ordered OXcarbazepine 150 mg oral tablet 150 mg, 1, tablet, By Mouth, 2 times a day, # 60 tablet, Refills 1, Tot. Refills 1, Maintenance, 06/09/21 10:34:00 EDT, Route to Pharmacy Electronically, [facility] [id number], Partial fill upon patient request if the [...] 06/09/21 10:35:00 EDT, Route to Pharmacy Electronically, [facility] [id number], Partial fill upon patient request if the prescri... Start Date: 06/09/21 Stop Date: 08/08/21 Status: Ordered traZODone 50 mg oral tablet 50 mg, 1, tablet, By Mouth, Daily at bedtime, # 30 tablet, Refills 1, Tot. Refills 1, Maintenance, 06/09/21 10:36:00 EDT, Route to Pharmacy Electronically, [facility] [id number], Partial fill upon patient request if the [...] sleep apnea, Com plex sleep apnea(Confirmed) Active BHN/CCA/Electrical Linesworker-Remedios MárquezMozjxzf-[phone]/Health chcf, active care coordination(Confirmed) Active Severe obesity(Confirmed) [...] Exam Date Time Procedure Performing Provider Status 06/24/21 5:00 PM Shoulder Min 2 Views Left Bein , Marj; Auth (Verified) Notes: (Shoulder Min 2 Views Left) Reason For Exam: with Pain;Trauma RESULT: Shoulder Min 2 Views Left Humerus Min 2 Views Left, Shoulder Min 2 Views Left, views Reason: Trauma; with Pain; Clinical Question(s): Fracture COMPARISON: None. FINDINGS: No fractures or bone lesions. No arthritic change of the glenohumeral joint. Normal AC joint and portions of the clavicle included on the exam. The visualized portions of the elbow joint are normal. Normal soft tissues. IMPRESSION: No acute abnormality. WSN: [id number] Ordering Physician: Mark Jimenez Dictated By: Mark Mirza MD Dictated Date/Time: 06/24/21 5:18 pm Reviewed By: Mark Mirza MD Signed By: Mark Mirza MD Signed Date/Time: 06/24/21 5:18 pm Transcribed By: TIP Transcribed Date/Time: 06/24/21 5:16 pm * Exam Date Time Procedure Performing Provider Status 06/24/21 5:00 PM Humerus Min 2 Views Left Bein , Marj; A uth (Verified) Notes: (Humerus Min 2 Views Left) Reason For Exam: with Pain;Trauma RESULT: Humerus Min 2 Views Left Humerus Min 2 Views Left, Shoulder Min 2 Views Left, views Reason: Trauma; with Pain; Clinical Question(s): Fracture COMPARISON: None. FINDINGS: No fractures or bone lesions. No arthritic change of the glenohumeral joint. Normal AC joint and portions of the clavicle included on the exam. The visualized portions of the elbow joint are normal. Normal soft tissues. IMPRESSION: No acute abnormality. WSN: [id number] Ordering Physician: Mark Jimenez Dictated By: Mark Mirza MD Dictated Date/Time: 06/24/21 5:18 pm Reviewed By: Mark Mirza MD Signed By: Mark Mirza MD Signed Date/Time: 06/24/21 5:18 pm Transcribed By: TIP Transcribed Date/Time: 06/24/21 5:16 pm Vital Signs Most recent to oldest [Reference Range]: 1 2 3 Oxygen Saturation [94-100 %] 94 % (06/25/21 2:43 PM) 96 % (06/25/21 12:00 PM) 97 % (06/25/21 9:45 AM) Pulse Rate [55-90 bpm] 109 bpm *H* (06/25/21 2:43 PM) 96 bpm *H* (06/25/21 12:00 PM) 99 bpm *H* (06/25/21 9:45 AM) Blood Pressure [90-138/55-84 mm Hg] 135/79mm Hg (06/25/21 2:43 PM) 155/89mm Hg *H* (06/25/21 12:00 PM) 156/90mm Hg *H* (06/25/21 9:45 AM) Respiratory Rate [16-30 br/min] 18 br/min (06/25/21 2:43 PM) 17 br/min (06/25/21 12:00 PM) 18 br/min (06/25/21 9:45 AM) Temperature [96.8-100.4 DegF] 97.8 DegF (06/25/21 12:00 PM) 97.8 DegF (06/25/21 9:45 AM) 97.9 DegF (06/25/21 5:18 AM) Mode of Delivery (Oxygen) Room air (06/25/21 2:43 PM) Room air (06/25/21 12:00 PM) Room air (06/25/21 9:45 AM) Blood pressure sites Arm, left (06/25/21 2:43 PM) Arm, left (06/25/21 12:00 PM) Arm, left (06/25/21 9:45 AM) Temperature Route Oral (06/25/21 12:00 PM) Oral (06/25/21 9:45 AM) Oral (06/25/21 5:18 AM) Social History Social History Type Response Smoking Status Never smoker entered on: 10/02/13 Sex
--- OUTSIDE RECORDS SUMMARY | 2022-08-02 17:44 | XMS_ITS | Continuity of Care Document ---
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 Start Date: 01/02/20 Status: Ordered amLODIPine 5 mg oral tablet 5 mg, Tablet, By Mouth, 09/26/20 9:00:00 EDT Start Date: 09/26/20 Stop Date: 09/26/20 Status: Completed amLODIPine 5 mg oral tablet 5 mg, 1, tablet, By Mouth, Daily, # 30 tablet, Refills 11, Tot. Refills 11, Maintenance, 02/03/20 16:45:00 EST, Route to Pharmacy Electronically, [facility] [id number], 178, cm, 01/28/20 6:28:00 EST, Height, 158, kg, 01/07/20... Start Date: 02/03/20 Status: Ordered cetirizine 10 mg oral tablet 1 tablet = 10 mg, By Mouth, Daily, # 30 tablet, 5 Refills, Maintenance, 07/01/20 9:26:00 EDT, Tablet, [facility] [id number], Label in Romansh., 177.9, cm, 04/16/20 13:38:00 EST, Height, 153.2, kg, 03/16/20 12:24:00 EST, Dry We... Start Date: 07/01/20 Status: Ordered chlorthalidone 25 mg oral tablet 12.5 mg, 0.5, tablet, By Mouth, Daily, # 15 tablet, Refills 5, Tot. Refills 5, Maintenance, 07/31/20 11:20:00 EDT, Route to Pharmacy Electronically, [facility] [id number], Partial fill upon patient request if the prescription... Start Date: 07/31/20 Status: Ordered Flonase 50 mcg/inh nasal spray 1 sprays, Nares, Both, 2 times a day, # 9.9 mL, 0 Refills, Maintenance, 02/24/20 11:15:00 EST, [place], [facility] [id number], 1 sprays Nares, Both 2 times a day, 178, cm, 02/04/20 15:21:00 EST, Height, 158, kg, 01/07/20 14:48:0... Start Date: 02/24/20 Status: Ordered gabapentin 300 mg oral capsule 300 mg, Capsule, By Mouth, 09/26/20 9:00:00 EDT Start Date: 09/26/20 Stop Date: 09/26/20 Status: Completed gabapentin 300 mg oral capsule 300 mg, 1, capsule, By Mouth, 3 times a day, # 90 capsule, Refills 5, Tot. Refills 5, Maintenance, 08/21/20 11:48:00 EDT, Route to Pharmacy Electronically, [facility] [id number], Dose decreased 08/21/20, 177.9, cm, 08/20/20 10:0... Start Date: 08/21/20 Status: Ordered metFORMIN 500 mg oral tablet, extended release 1 tablet = 500 mg, By Mouth, Daily, # 30 tablet, 11 Refills, Maintenance, 02/03/20 16:44:00 EST, ERTablet, [facility] [id number], Partial fill upon patient request if the prescription is for a schedule II opioid drug., 178, c... Start Date: 02/03/20 Status: Ordered non slip bath mat non slip bath mat, See Instructions, # 1 each, Refills 0, Tot. Refills 0, Maintenance, dx: ESHA, SOB, LEFT LEG PAIN LEFT LEG SWELLING RISK FOR [id number] G46.33,RO6.2.M79.605,R22.42, 07/23/20 13:54:00 EDT, Supply Start Date: [...] 2 Refills, Soft Stop, 07/01/20 9:26:00 EDT, [place], [place] - [id number], Label in Romansh, 177.9, cm, 04/16/20 13:38:00 EST, Height, 153.2, [...] 0 Refills, Maintenance, 09/07/20 17:58:00 EDT, Tablet, [place], [place] - [id number], Partial fill upon patient request if the [...] sleep apnea, Com plex sleep apnea(Confirmed) Active BHN/CCA/Metal Framer-Remedios MárquezEkogayk-[phone]/Health correction, active care coordination(Confirmed) Active Treatment-emergent central s [...] 3 Oxygen Saturation [94-100 %] 97 % (09/26/20 10:06 AM) 96 % (09/26/20 5:25 AM) Pulse Rate [55-90 bpm] 93 bpm *H* (09/26/20 10:06 AM) 83 bpm (09/26/20 5:25 AM) Blood Pressure [90-138/55-84 mm Hg] 138/72mm Hg (09/26/20 10:06 AM) 155/80mm Hg *H* (09/26/20 9:28 AM) 172/85mm Hg *H* (09/26/20 5:25 AM) Respiratory Rate [16-30 br/min] 20 br/min (09/26/20 10:06 AM) 18 br/min (09/26/20 9:27 AM) 20 br/min (09/26/20 5:25 AM) Temperature [96.8-100.4 DegF] 98.7 DegF (09/26/20 10:06 AM) 99 DegF (09/26/20 5:25 AM) Mode of Delivery (Oxygen) Room air (09/26/20 10:06 AM) Room air (09/26/20 5:25 AM) Blood pressure sites Arm, right (09/26/20 10:06 AM) Arm, right (09/26/20 5:25 AM) Temperature Route Oral (09/26/20 10:06 AM) Oral (09/26/20 5:25 AM) Social History Social History Type Response Smoking Status Never smoker entered on: 10/02/13 Sex
--- OUTSIDE RECORDS SUMMARY | 2022-08-02 17:44 | XMS_ITS | Continuity of Care Document ---
Author Name Unknown Organization [facility] Address [address] [place] [address]- Care Team Providers Care Tube Rebuilder Name Role Phone Delia ACOSTA, Lamine Covington Primary Care Physician [phone] Encounter [facility] [place] Date(s): 09/15/21 - 09/16/[address] [address]- Encounter Diagnosis Suicidal ideation(Final) - 09/15/21 Auditory hallucination(Final) - 09/15/21 Discharge Disposition: A-D/C Home Attending Physician: Marbin Best MD Admitting Physician: [...] 08/18/21 10:14:00 EDT, Route to Pharmacy Electronically, [facility] [id number],Partial fill upon patient request if the prescripti... Start Date: 08/18/21 Status: Ordered buPROPion 150 mg/24 hours (XL) oral tablet, extended release 1 tablet = 150 mg, By Mouth, Daily, # 30 tablet, 0 Refills, Maintenance, 09/13/21 7:13:00 EDT, XL Tablet, [place], [place] - [id number], Partial fill upon patient request if the prescription is for a schedule II opioid drug., 1 tablet... Start Date: 09/13/21 Status: Ordered chlorthalidone 25 mg oral tablet 12.5 mg, 0.5, tablet, By Mouth, Daily, # 15 tablet, Refills 1, Tot. Refills 1, Maintenance, 08/18/21 10:14:00 EDT, Route to Pharmacy Electronically, [facility] [id number], Partial fill upon patient request if the prescription... Start Date: 08/18/21 Status: Ordered gabapentin 300 mg oral capsule 600 mg, Capsule, By Mouth, 09/16/21 9:00:00 EDT Start Date: 09/16/21 Stop Date: 09/16/21 Status: Completed gabapentin 600 mg oral tablet 1 tablet = 600 mg, By Mouth, 3 times a day, # 90 tablet, 1 Refills, Maintenance, 08/18/21 10:14:00 EDT, Tablet, [place], [place] - [id number], Partial fill upon patient request if the prescription is for a schedule II opioid drug., 17... Start Date: 08/18/21 Stop Date: 10/17/21 Status: Ordered hydrOXYzine pamoate 50 mg oral capsule = 50 mg, By Mouth, Every 6 hours, PRN Anxiety, # 60 capsule, 1 Refills, Maintenance, 08/18/21 10:15:00 EDT, Capsule, [place], [place] - [id number], Partial fill upon patient request if the prescription is for a schedule II opioid drug... Start Date: 08/18/21 Status: Ordered loratadine 10 mg oral tablet 10 mg, 1, tablet, By Mouth, Daily, # 30 tablet, Refills 1, Tot. Refills 1, Maintenance, 08/18/21 10:15:00 EDT, Route to Pharmacy Electronically, [facility] [id number], Partial fill upon patient request if the prescription is f... Start Date: 08/18/21 Stop Date: 10/17/21 Status: Ordered metFORMIN 500 mg oral tablet, extended release 1 tablet = 500 mg, By Mouth, Daily, # 30 tablet, 1 Refills, Maintenance, 08/18/21 10:15:00 EDT, ER Tablet, [facility] [id number], Partial fill upon patient request if the prescription is for a schedule II opioid drug., 178, cm... Start Date: 08/18/21 Status: Ordered paliperidone 234 mg/1.5 mL intramuscular suspension, extended release = 234 mg, Intramuscular, Every 28 days, Due on 09/13/2021, # 1 each, 1 Refills, Maintenance, 08/18/21 10:16:00 EDT, [facility] [id number], Partial fill upon patient request ifthe prescription [...] Maintenance,08/18/21 10:19:00 EDT, Route to Pharmacy Electronically, [facility] [id number], Partial fill upon patient request if the presc... 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 Morbid obesity with BMI of 4 5.0-49.9, adult(Confirmed) Active NAFLD (nonalcoholic fatty li eevlia disease)(Confirmed) 2 Active Obstructive sleep apnea, Com plex sleep apnea(Confirmed) Active BHN/CCA/Boilermaker Welder-Remedios MárquezAjepgfd-[phone]/Health long-term, active care coordination(Confirmed) Active Severe obesity(Confirmed) Active [...] 3 Oxygen Saturation [94-100 %] 96 % (09/16/21 3:26 PM) 100 % (09/16/21 6:24 AM) 100 % (09/15/21 10:19 PM) Pulse Rate [55-90 bpm] 82 bpm (09/16/21 3:26 PM) 74 bpm (09/16/21 6:24 AM) 86 bpm (09/15/21 10:19 PM) Blood Pressure [90-138/55-84 mm Hg] 113/79mm Hg (09/16/21 3:26 PM) 125/68mm Hg (09/16/21 6:24 AM) 115/75mm Hg (09/15/21 10:19 PM) Respiratory Rate [16-30 br/min] 18 br/min (09/16/21 3:26 PM) 18 br/min (09/16/21 9:25 AM) 16 br/min (09/16/21 6:24 AM) Temperature [96.8-100.4 DegF] 97.8 DegF (09/16/21 6:24 AM) 97.8 DegF (09/15/21 10:19 PM) 97.6 DegF (09/15/21 5:08 PM) Mode of Delivery (Oxygen) Room air (09/16/21 3:26 PM) Room air (09/16/21 6:24 AM) Room air (09/15/21 10:19 PM) Blood pressure sites Arm, right (09/16/21 3:26 PM) Arm, right (09/16/21 6:24 AM) Arm, right (09/15/21 10:19 PM) Temperature Route Oral (09/16/21 6:24 AM) Oral (09/15/21 10:19 PM) Oral (09/15/21 5:08 PM) Social History Social History Type Response Smoking Status Never smoker entered on: 10/02/13 Sex
--- OUTSIDE RECORDS SUMMARY | 2022-08-02 17:45 | XMS_ITS | Continuity of Care Document ---
Author Name Unknown Organization [facility] Address [address] [place] [address]- Care Team Providers Care Superintendent Greens Name Role Phone Lamine Lin MD Primary Care Physician [phone] [place] [facility] [place] [facility] [id number] Date(s): 11/16/21 - 12/16/[address] [address]- Attending Physician: Admtayla, Marsha Admitting Physician: Admtr, Marsha Referring Physician: Admtr, [...] 12/06/21 10:46:00 EDT, Route to Pharmacy Electronically, [facility] [id number],Partial fill upon patient request if the prescripti... Start Date: 12/06/21 Status: Ordered buPROPion 150 mg/24 hours (XL) oral tablet, extended release 1 tablet, By Mouth, Daily, # 30 tablet, 0 Refills, Maintenance, 12/02/21 7:44:00 EDT, [facility], [facility] [id number], 30, 1 tablet By Mouth Daily, 177.8, cm, 10/20/21 8:51:00 EDT, Height, 136.078, kg, 09/02/21 19:37:00 EDT, Dry Weight Start Date: 12/02/21 Status: Ordered docusate sodium 100 mg oral capsule 1 capsule, By Mouth, Daily, # 30 each, 1 Refills, Maintenance, 12/06/21 10:45:00 EDT, [facility] [id number], 177.8, cm, 12/06/21 10:26:00 EDT, Height, 136.078, kg, 09/02/21 19:37:00 EDT, Dry Weight Start Date: 12/06/21 Status: Ordered gabapentin 600 mg oral tablet 1 tablet = 600 mg, By Mouth, 3 times a day, # 90 tablet, 5 Refills, Maintenance, 12/06/21 10:44:00 EDT, Tablet, [facility], [place] - [id number], Partial fill upon patient request if the prescription is for a schedule II opioid drug., 17... Start Date: 12/06/21 Stop Date: 06/04/22 Status: Ordered hydrOXYzine pamoate 50 mg oral capsule = 50 mg, By Mouth, Every 6 hours, PRN Anxiety, # 60 capsule, 0 Refills, Maintenance, 12/06/21 10:45:00 EDT, Capsule, [place], [place] - [id number], Partial fill upon patient request if the prescription is for a schedule II opioid drug... Start Date: 12/06/21 Status: Ordered loratadine 10 mg oral tablet 10 mg, 1, tablet, By Mouth, Daily, # 30 tablet, Refills 3, Tot. Refills 3, Maintenance, 12/06/21 10:45:00 EDT, Route to Pharmacy Electronically, [facility] [id number], Partial fill upon patient request if the prescription is f... Start Date: 12/06/21 Stop Date: 04/05/22 Status: Ordered paliperidone 234 mg/1.5 mL intramuscular suspension, extended release = 234 mg, Intramuscular, Every 28 days, Due on 09/13/2021, # 1 each, 1 Refills, Maintenance, 08/18/21 10:16:00 EDT, [facility] [id number], Partial fill upon patient request ifthe prescription [...] Maintenance,12/06/21 10:45:00 EDT, Route to Pharmacy Electronically, [facility] [id number], Partial fill upon patient request if the [...] sleep apnea, Complex sleep apnea Confirmed Active BHN/CCA/Firepot Operator And Tender-Tia Jarrett [phone]/Health group home, active care coordination Confirmed Active [...] Personnel Name: Lamine Lin MD Address: Address: [address] [place] [id number]
--- OUTSIDE RECORDS SUMMARY | 2022-08-02 17:45 | XMS_ITS | Continuity of Care Document ---
Author Name Unknown Organization [facility] Address [address] [place] [address]- Care Team Providers Care Bank Note Designer Name Role Phone Delia ACOSTA, Lamine Covington Primary Care Physician En[place] [facility] [place] Date(s): 09/07/20 - 09/14/20 [facility] [address] [place], [place] [address] Attending Physician: Gabbie Cason MD Referring Physician: [...] 18:13:00 EST, Aerosol, Route to Pharmacy Electronically, [id number], [facility] [place], [place] - [id number], 177, cm... Start Date: 01/02/20 Status: Ordered amLODIPine 5 mg oral tablet 5 mg, 1, tablet, By Mouth, Daily, # 30 tablet, Refills 11, Tot. Refills 11, Maintenance, 02/03/20 16:45:00 EST, Route to Pharmacy Electronically, [facility], [facility] [id number], 178, cm, 01/28/20 6:28:00 EST, Height, 158, kg, 01/07/20... Start Date: 02/03/20 Status: Ordered cetirizine 10 mg oral tablet 1 tablet = 10 mg, By Mouth, Daily, # 30 tablet, 5 Refills, Maintenance, 07/01/20 9:26:00 EDT, Tablet, [facility], [facility] [id number], Label in Italian., 177.9, cm, 04/16/20 13:38:00 EST, Height, 153.2, kg, 03/16/20 12:24:00 EST, Dry We... Start Date: 07/01/20 Status: Ordered chlorthalidone 25 mg oral tablet 12.5 mg, 0.5, tablet, By Mouth, Daily, # 15 tablet, Refills 5, Tot. Refills 5, Maintenance, 07/31/20 11:20:00 EDT, Route to Pharmacy Electronically, [facility], [place] - [id number], Partial fill upon patient request if the prescription... Start Date: 07/31/20 Status: Ordered Flonase 50 mcg/inh nasal spray 1 sprays, Nares, Both, 2 times a day, # 9.9 mL, 0 Refills, Maintenance, 02/24/20 11:15:00 EST, [place], [facility], [place] - [id number], 1 sprays Nares, Both 2 times a day, 178, cm, 02/04/20 15:21:00 EST, Height, 158, kg, 01/07/20 14:48:0... Start Date: 02/24/20 Status: Ordered gabapentin 300 mg oral capsule 300 mg, 1, capsule, By Mouth, 3 times a day, # 90 capsule, Refills 5, Tot. Refills 5, Maintenance, 08/21/20 11:48:00 EDT, Route to Pharmacy Electronically, [facility] [id number], Dose decreased 08/21/20, 177.9, cm, 08/20/20 10:0... Start Date: 08/21/20 Status: Ordered hydrocortisone 1% topical cream 1 application, Topically, 2 times a day, to arms apply in a thin film to the affected skin and rub in gently and completely, # 15 Gm, 0 Refills, Acute 09/20/20 10:44:00 EDT, 08/20/20 10:44:00 EDT, Cream, [place], [place] - [id number]... Start Date: 08/20/20 Stop Date: 09/20/20 Status: Ordered metFORMIN 500 mg oral tablet, extended release 1 tablet = 500 mg, By Mouth, Daily, # 30 tablet, 11 Refills, Maintenance, 02/03/20 16:44:00 EST, ERTablet, [facility] [id number], Partial fill upon patient request if the prescription is for a schedule II opioid drug., 178, c... Start Date: 02/03/20 Status: Ordered non slip bath mat non slip bath mat, See Instructions, # 1 each, Refills 0, Tot. Refills 0, Maintenance, dx: ESHA, SOB, LEFT LEG PAIN LEFT LEG SWELLING RISK FOR [id number] G46.33,RO6.2.M79.605,R22.42, 07/23/20 13:54:00 EDT, Supply Start Date: 07/23/20 Status: Ordered olanzapine 5 mg oral tablet 5 mg, 1, tablet, By Mouth, Daily in AM, # 30 tablet, Refills 0, Tot. Refills 0, Maintenance, 01/28/20 9:40:00 EST, Route to Pharmacy Electronically, [facility] 3, Partial fill upon patient request if the prescription is for a schedule II o... Start Date: 01/28/20 Status: Ordered omeprazole 20 mg oral enteric coated capsule 1 capsule = 20 mg, By Mouth, 2 times a day, # 60 capsule, 2 Refills, Soft Stop, 07/01/20 9:26:00 EDT, [facility] [id number], Label in Italian, 177.9, cm, 04/16/20 13:38:00 EST, Height, 153.2, [...] 0 Refills, Maintenance, 09/07/20 17:58:00 EDT, Tablet, [facility], [place] - [id number], Partial fill upon patient request if the [...] sleep apnea, Com plex sleep apnea(Confirmed) Active BHN/CCA/Sponge Press Operator-Remedios Woqqjkq-[phone]/Health longterm, active care coordination(Confirmed) Active 1On EGD in [...] oldest [Reference Range]: 1 Height 177.9 cm (09/07/20 5:38 PM) Weight 160.8 kg (09/07/20 5:38 PM) Oxygen Saturation [94-100 %] 96 % (09/07/20 5:38 PM) Pulse Rate [55-90 bpm] 112 bpm *H* (09/07/20 5:38 PM) Body Mass Index [18.5-24.99] 50.81 *>HHI* (09/07/20 5:38 PM) Blood Pressure [90-138/55-84 mm Hg] 192/ 83mm Hg *H* (09/07/20 5:38 PM) Temperature [96.8-100.4 DegF] 98.8 DegF (09/07/20 5:38 PM) Mode of Delivery (Oxygen) Room air (09/07/20 5:38 PM) Blood pressure sites Arm, right (09/07/20 5:38 PM) Temperature Route Temporal (09/07/20 5:38 PM) Dry Weight 160.8 kg (09/07/20 5:38 PM) Weight Obtained Via Standing scale (09/07/20 5:38 PM) Dry Weight Obtained Via Standing scale (09/07/20 5:38 PM) Social History Social History Type Response Smoking Status Never smoker entered on: 10/02/13 Sex
--- OUTSIDE RECORDS SUMMARY | 2022-08-02 17:45 | XMS_ITS | Continuity of Care Document ---
Author Name Unknown Organization [facility] Address [address] [place] [address]- Care Team Providers Care Senior Accountant Analyst Name Role Phone Delia ACOSTA, Lamine Covington Primary Care Physician [phone] Encounter [facility] Date(s): 04/09/20 - 05/09/20 [facility] [address] [place], [place] [address] Attending Physician: AdmMarsha bourne Admitting Physician: Admtr, Marsha Referring Physician: Admtr, ArRadha Allergies, Adverse Reactions, [...] 18:13:00 EST, Aerosol, Route to Pharmacy Electronically, [id number], [place], [place] - [id number], 177, cm... Start Date: 01/02/20 Status: Ordered amLODIPine 5 mg oral tablet 5 mg, 1, tablet, By Mouth, Daily, # 30 tablet, Refills 11, Tot. Refills 11, Maintenance, 02/03/20 16:45:00 EST, Route to Pharmacy Electronically, [facility], [facility] [id number], 178, cm, 01/28/20 6:28:00 EST, Height, 158, [...] 3 Refills, Maintenance, 02/24/20 11:16:00 EST, Tablet, [facility], [facility] [id number], Label in Khmer., 178, cm, 02/04/20 15:21:00 EST, Height, 158, kg, 01/07/20 14:48:00 EST, Dry Weight Start Date: 02/24/20 Status: Ordered chlorthalidone 25 mg oral tablet 12.5 mg, 0.5, tablet, By Mouth, Daily, # 15 tablet, Refills 5, Tot. Refills 5, Maintenance, 02/04/20 15:34:00 EST, Route to Pharmacy Electronically, [facility], [facility] [id number], Partial fill upon patient request if the [...] mL, 0 Refills, Maintenance, 02/24/20 11:15:00 EST, [place], [facility] [id number], 1 sprays Nares, Both 2 times a day, 178, cm, 02/04/20 15:21:00 EST, Height, 158, kg, 01/07/20 14:48:0... Start Date: 02/24/20 Status: Ordered Flovent Diskus 100 mcg/inh inhalation powder 1 puffs, Inhalation, 2 times a day, # 60 each, 0 Refills, Maintenance, 03/03/20 10:49:00 EST, Powder, [facility] [id number], Partial fill upon patient request if the prescription is for a schedule II opioid drug., 1 puffs Inha... Start Date: 03/03/20 Status: Ordered GuaiFENesin DM 20 mg-200 mg/10 mL oral liquid 10 mL, By Mouth, Every 4 hours, PRN as needed for cough, not to exceed 6 doses/day, # 120 mL, 0 Refills, Maintenance, 03/03/20 11:05:00 EST, Liquid, [facility] [id number], Partial fill upon patient request if the prescription... Start Date: 03/03/20 Status: Ordered metFORMIN 500 mg oral tablet, extended release 1 tablet = 500 mg, By Mouth, Daily, # 30 tablet, 11 Refills, Maintenance, 02/03/20 16:44:00 EST, ERTablet, [facility] [id number], Partial fill upon patient request if the [...] 01/28/20 9:40:00 EST, Route to Pharmacy Electronically, [facility] 3, Partial fill upon patient request if the prescription is for a schedule II o... Start Date: 01/28/20 Status: Ordered omeprazole 20 mg oral enteric coated capsule 1 capsule = 20 mg, By Mouth, 2 times a day, # 60 capsule, 2 Refills, Soft Stop, 04/01/20 14:52:00 EST, [facility] [place] - [id number], Dose increased 05/09/19. Label in Khmer., 178, cm, 03/16/20 12:24:00 EST, Height, 153.2, [...] sleep apnea, Com plex sleep apnea(Confirmed) Active BHN/CCA/Silvering Applicator-Remedios Rppwnby-[phone]/Health long-term, active care coordination(Confirmed) Active 1Impression: 1. [...]
--- OUTSIDE RECORDS SUMMARY | 2022-08-02 17:45 | XMS_ITS | Continuity of Care Document ---
Author Name Unknown Organization [facility] Address [address] [place] [address]- Care Team Providers Care Anesthesiology Technologist Name Role Phone Delia ACOSTA, Lamine Covington Primary Care Physician [phone] [facility] Date(s): 08/18/21 - 10/07/21 [facility] [address] [place] [address]- Attending Physician: Not on Staff, Attending MD [...] 08/18/21 10:14:00 EDT, Route to Pharmacy Electronically, [facility] [place], [place] - [id number],Partial fill upon patient request if the prescripti... Start Date: 08/18/21 Status: Ordered buPROPion 150 mg/24 hours (XL) oral tablet, extended release 1 tablet = 150 mg, By Mouth, Daily, # 30 tablet, 0 Refills, Maintenance, 09/13/21 7:13:00 EDT, XL Tablet, [facility] [id number], Partial fill upon patient request if the prescription is for a schedule II opioid drug., 1 tablet... Start Date: 09/13/21 Status: Ordered chlorthalidone 25 mg oral tablet 12.5 mg, 0.5, tablet, By Mouth, Daily, # 15 tablet, Refills 1, Tot. Refills 1, Maintenance, 08/18/21 10:14:00 EDT, Route to Pharmacy Electronically, [facility] [id number], Partial fill upon patient request if the prescription... Start Date: 08/18/21 Status: Ordered gabapentin 600 mg oral tablet 1 tablet = 600 mg, By Mouth, 3 times a day, # 90 tablet, 1 Refills, Maintenance, 08/18/21 10:14:00 EDT, Tablet, [facility] [id number], Partial fill upon patient request if the prescription is for a schedule II opioid drug., 17... Start Date: 08/18/21 Stop Date: 10/17/21 Status: Ordered hydrOXYzine pamoate 50 mg oral capsule = 50 mg, By Mouth, Every 6 hours, PRN Anxiety, # 60 capsule, 1 Refills, Maintenance, 08/18/21 10:15:00 EDT, Capsule, [facility] [id number], Partial fill upon patient request if the prescription is for a schedule II opioid drug... Start Date: 08/18/21 Status: Ordered loratadine 10 mg oral tablet 10 mg, 1, tablet, By Mouth, Daily, # 30 tablet, Refills 1, Tot. Refills 1, Maintenance, 08/18/21 10:15:00 EDT, Route to Pharmacy Electronically, [facility] [id number], Partial fill upon patient request if the prescription is f... Start Date: 08/18/21 Stop Date: 10/17/21 Status: Ordered metFORMIN 500 mg oral tablet, extended release 1 tablet = 500 mg, By Mouth, Daily, # 30 tablet, 1 Refills, Maintenance, 08/18/21 10:15:00 EDT, ER Tablet, [facility] [id number], Partial fill upon patient request if the prescription is for a schedule II opioid drug., 178, cm... Start Date: 08/18/21 Status: Ordered mupirocin 2% topical cream See Instructions, apply thin layer to face twice a day., # 30 Gm, 0 Refills, Maintenance, 10/05/21 8:55:00 EDT, [facility] [id number], Partial fill upon patient request if the prescription is for a schedule II opioid drug., ap... Start Date: 10/05/21 Status: Ordered mupirocin 2% topical ointment See Instructions, Topically 2 times a day, # 22 Gm, 0 Refills, Maintenance, 10/05/21 17:24:00 EDT, [facility] [id number], Partial fill upon patient request if the prescription is for a schedule II opioid drug., Topically 2 kiya... Start Date: 10/05/21 Status: Ordered paliperidone 234 mg/1.5 mL intramuscular suspension, extended release = 234 mg, Intramuscular, Every 28 days, Due on 09/13/2021, # 1 each, 1 Refills, Maintenance, 08/18/21 10:16:00 EDT, [facility] [id number], Partial fill upon patient request ifthe prescription [...] Maintenance,08/18/21 10:19:00 EDT, Route to Pharmacy Electronically, [facility] [place], [place] - [id number], Partial fill upon patient request if the [...] sleep apnea, Com plex sleep apnea(Confirmed) Active BHN/CCA/Candy Packer-Remedios MárquezZvtbwej-[phone]/Health skilled nursing, active care coordination(Confirmed) Active Treatment-emergent central s [...]
--- OUTSIDE RECORDS SUMMARY | 2022-08-02 17:45 | XMS_ITS | Continuity of Care Document ---
Author Name Unknown Organization [facility] Address [address] [place] [address]- Care Team Providers Care Religious Activities Director Name Role Phone Lamine Lin MD Primary Care Physician Encounter [id number] Date(s): 12/21/20 - 01/20/[address] [address]- Attending Physician: AdmMarsha bourne Admitting Physician: AdmtrMarsha [...] 10/23/20 10:46:00 EDT, Route to Pharmacy Electronically, [facility]/pharmacy #[id number], Partial fill upon patient request if the prescription is for a schedule II opioid drug... Start Date: 10/23/20 Status: Ordered chlorthalidone 25 mg oral tablet 12.5 mg, 0.5, tablet, By Mouth, Daily, # 15 tablet, Refills 1, Tot. Refills 1, Maintenance, 10/23/20 10:48:00 EDT, Route to Pharmacy Electronically, [facility]/pharmacy #[id number], Partial fill upon patient request if the prescription is for a schedule II opioid... Start Date: 10/23/20 Status: Ordered Colace sodium 100 mg oral capsule 100 mg, 1, capsule, By Mouth, Daily in AM, # 30 capsule, Refills 1, Tot. Refills 1, Maintenance, 10/23/20 11:49:00 EDT, Route to Pharmacy Electronically, [facility]/pharmacy #[id number], Partial fill upon patientrequest if the prescription is for a schedule II op... Start Date: 10/23/20 Status: Ordered diclofenac 1% topical gel 1 application, Topically, 4 times a day, # 100 Gm, 0 Refills, Maintenance, 11/23/20 13:32:00 EDT, Gel, [place], [place] - [id number], Partial fill upon patient request if the prescription is for a schedule II opioid drug., 177, cm, 10... Start Date: 11/23/20 Status: Ordered diphenhydrAMINE 50 mg oral tablet = 50 mg, By Mouth, Every 6 hours, PRN Anxiety, # 60 tablet, 1 Refills, Maintenance, 10/23/20 10:48:00 EDT, Tablet, [facility]/pharmacy #[id number], Partial fill upon patient request if the prescription is for a schedule II opioid drug., 177, cm, 10/22/20 21:57:00... Start Date: 10/23/20 Status: Ordered folic acid 1 mg oral tablet 1, tablet, By Mouth, Daily, # 30 tablet, Refills 1, Route to Pharmacy Electronically, [facility], 177, cm, 12/17/20 10:34:00 EDT, Height, 148, kg, 10/16/20 15:12:00 EDT, Dry Weight Start Date: 01/01/21 Status: Ordered gabapentin 600 mg oral tablet 1 tablet, By Mouth, 3 times a day, # 90 tablet, 1 Refills, [facility], 177, cm, 12/17/20 10:34:00 EDT, Height, 148, kg, 10/16/20 15:12:00 EDT, Dry Weight Start Date: 01/01/21 Status: Ordered loratadine 10 mg oral tablet 1, tablet, By Mouth, Daily, # 30 tablet, Refills 1, Route to Pharmacy Electronically, [facility], 177, cm, 12/17/20 10:34:00 EDT, Height, 148, kg, 10/16/20 15:12:00 EDT, Dry Weight Start Date: 01/01/21 Status: Ordered losartan 25 mg oral tablet 25 mg, 1, tablet, By Mouth, Daily, # 30 tablet, Refills 1, Tot. Refills 1, Maintenance, 10/23/20 10:47:00 EDT, Route to Pharmacy Electronically, [facility]/pharmacy #[id number], Partial fill upon patient request if the prescription is for a schedule II opioid drug... Start Date: 10/23/20 Status: Ordered metFORMIN 500 mg oral tablet, extended release 1 tablet = 500 mg, By Mouth, Daily, # 30 tablet, 1 Refills, Maintenance, 10/23/20 10:47:00 EDT, ER Tablet, [facility]/pharmacy #[id number], Partial fill upon patient request if the prescription is for a schedule II opioid drug., 177, cm, 10/22/20 21:57:00 EDT, Hei... Start Date: 10/23/20 Status: Ordered MiraLax oral powder for reconstitution = 17 Gm, By Mouth, Daily, # 255 Gm, 1 Refills, Maintenance, 10/23/20 10:49:00 EDT, [facility]/pharmacy #[id number], Partial fill upon [...] 10/23/20 10:48:00 EDT, Route to Pharmacy Electronically, [facility]/pharmacy #[id number], Partial fill upon [...] 01/25/21 13:45:00 EST, 01/18/21 13:45:00 EST, Tablet, [place], [place] - [id number], Partial fill upon patient request if the prescription is for a... Start Date: 01/18/21 Stop Date: 01/25/21 Status: Ordered RisperDAL 2 mg oral tablet 2 mg, 1, tablet, By Mouth, Daily, # 30 tablet, Refills 1, Tot. Refills 1, Maintenance, 10/23/20 10:51:00 EDT, Route to Pharmacy Electronically, [facility]/pharmacy #[id number], Partial fill upon patient request if the prescription is for a schedule II opioid drug.... Start Date: 10/23/20 Status: Ordered risperiDONE 3 mg oral tablet 3 mg, 1, tablet, By Mouth, Daily at bedtime, # 30 tablet, Refills 1, Tot. Refills 1, Maintenance, 10/23/20 10:52:00 EDT, Route to Pharmacy Electronically, [facility]/pharmacy #[id number], Partial fill upon patient request if the prescription is for a schedule II o... Start Date: 10/23/20 Status: Ordered Tylenol 8 HR Arthritis Pain 650 mg oral tablet, extended release 1 tablet = 650 mg, By Mouth, Every 8 hours, PRN as needed for pain, # 50 tablet, 0 Refills, Maintenance, 12/17/20 15:15:00 EDT, ER Tablet, [place], [place] - [id number], Partial fillupon patient request if the prescription [...] sleep apnea, Com plex sleep apnea(Confirmed) Active BHN/CCA/Fine Arts Instructor-Remedios MárquezPrbreul-[phone]/Health half-way, active care coordination(Confirmed) Active Severe obesity(Confirmed) Active [...]
--- OUTSIDE RECORDS SUMMARY | 2022-08-02 17:45 | XMS_ITS | Continuity of Care Document ---
Author Name Unknown Organization [facility] ter Address [address] [place] [id number]- Care Team Providers Care Sculpture Conservator Name Role Phone Lamine Lin MD Primary Care Physician [phone] Encounter [facility] Date(s): 08/24/20 - 10/23/[address] [address]- Attending Physician: Lamine Lin MD Admitting Physician: [...] 10:46:00 EDT, Route to Pharmacy Electronically, [facility]/pharmacy #[id number], Partial fill upon patient request if the prescription is for a schedule II opioid drug... Start Date: 10/23/20 Status: Ordered chlorthalidone 25 mg oral tablet 12.5 mg, 0.5, tablet, By Mouth, Daily, # 15 tablet, Refills 1, Tot. Refills 1, Maintenance, 10/23/20 10:48:00 EDT, Route to Pharmacy Electronically, [facility]/pharmacy #[id number], Partial fill upon patient request if the prescription is for a schedule II opioid... Start Date: 10/23/20 Status: Ordered Colace sodium 100 mg oral capsule 100 mg, 1, capsule, By Mouth, Daily in AM, # 30 capsule, Refills 1, Tot. Refills 1, Maintenance, 10/23/20 11:49:00 EDT, Route to Pharmacy Electronically, [facility]/pharmacy #[id number], Partial fill upon patientrequest if the prescription is for a schedule II op... Start Date: 10/23/20 Status: Ordered diphenhydrAMINE 50 mg oral tablet = 50 mg, By Mouth, Every 6 hours, PRN Anxiety, # 60 tablet, 1 Refills, Maintenance, 10/23/20 10:48:00 EDT, Tablet, [facility]/pharmacy #[id number], Partial fill upon patient request if the prescription is for a schedule II opioid drug., 177, cm, 10/22/20 21:57:00... Start Date: 10/23/20 Status: Ordered folic acid 1 mg oral tablet 1 mg, 1, tablet, By Mouth, Daily, # 30 tablet, Refills 1, Tot. Refills 1, Maintenance, 10/23/20 10:48:00 EDT, Route to Pharmacy Electronically, [facility]/pharmacy #[id number], Partial fill upon patient [...] 1 Refills, Maintenance, 10/23/20 10:49:00 EDT, [facility]/pharmacy #[id number], Partial fill upon patient [...] 10:51:00 EDT, Route to Pharmacy Electronically, [facility]/pharmacy #[id number], Partial fill upon patient request if the prescription is for a schedule II opioid drug.... Start Date: 10/23/20 Status: Ordered risperiDONE 3 mg oral tablet 3 mg, 1, tablet, By Mouth, Daily at bedtime, # 30 tablet, Refills 1, Tot. Refills 1, Maintenance, 10/23/20 10:52:00 EDT, Route to Pharmacy Electronically, [facility]/pharmacy #[id number], Partial fill upon patient request if the prescription is for a schedule II o... 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
--- OUTSIDE RECORDS SUMMARY | 2022-08-02 17:45 | XMS_ITS | Continuity of Care Document ---
Author Name Unknown Organization [facility] ter Address [address] [place] [address]- Care Team Providers Care Rotor Assembler Name Role Phone Delia ACOSTA, Lamine Covington Primary Care Physician Encounter [facility] Date(s): 04/16/20 - 04/16/[address] [address] Discharge Disposition: A-D/C Home Attending Physician: Richardson Partida MD Admitting Physician: Richardson Partida MD Referring Physician: Richardson Partida MD Allergies, Adverse Reactions, Alerts Substance Reaction [...] 18:13:00 EST, Aerosol, Route to Pharmacy Electronically, [id number], [place], [place] - [id number], 177, cm... Start Date: 01/02/20 Status: Ordered amLODIPine 5 mg oral tablet 5 mg, 1, tablet, By Mouth, Daily, # 30 tablet, Refills 11, Tot. Refills 11, Maintenance, 02/03/20 16:45:00 EST, Route to Pharmacy Electronically, [facility], [facility] [id number], 178, cm, 01/28/20 6:28:00 EST, Height, 158, [...] 3 Refills, Maintenance, 02/24/20 11:16:00 EST, Tablet, [facility], [facility] [id number], Label in Colombian., 178, cm, 02/04/20 15:21:00 EST, Height, 158, kg, 01/07/20 14:48:00 EST, Dry Weight Start Date: 02/24/20 Status: Ordered chlorthalidone 25 mg oral tablet 12.5 mg, 0.5, tablet, By Mouth, Daily, # 15 tablet, Refills 5, Tot. Refills 5, Maintenance, 02/04/20 15:34:00 EST, Route to Pharmacy Electronically, [facility], [facility] [id number], Partial fill upon patient request if the [...] mL, 0 Refills, Maintenance, 02/24/20 11:15:00 EST, [place], [facility] [id number], 1 sprays Nares, Both 2 times a day, 178, cm, 02/04/20 15:21:00 EST, Height, 158, kg, 01/07/20 14:48:0... Start Date: 02/24/20 Status: Ordered Flovent Diskus 100 mcg/inh inhalation powder 1 puffs, Inhalation, 2 times a day, # 60 each, 0 Refills, Maintenance, 03/03/20 10:49:00 EST, Powder, [facility] [id number], Partial fill upon patient request if the prescription is for a schedule II opioid drug., 1 puffs Inha... Start Date: 03/03/20 Status: Ordered GuaiFENesin DM 20 mg-200 mg/10 mL oral liquid 10 mL, By Mouth, Every 4 hours, PRN as needed for cough, not to exceed 6 doses/day, # 120 mL, 0 Refills, Maintenance, 03/03/20 11:05:00 EST, Liquid, [facility] [id number], Partial fill upon patient request if the prescription... Start Date: 03/03/20 Status: Ordered metFORMIN 500 mg oral tablet, extended release 1 tablet = 500 mg, By Mouth, Daily, # 30 tablet, 11 Refills, Maintenance, 02/03/20 16:44:00 EST, ERTablet, [facility] [id number], Partial fill upon patient request if the [...] 01/28/20 9:40:00 EST, Route to Pharmacy Electronically, [facility], Partial fill upon patient request if the prescription is for a schedule II o... Start Date: 01/28/20 Status: Ordered omeprazole 20 mg oral enteric coated capsule 1 capsule = 20 mg, By Mouth, 2 times a day, # 60 capsule, 2 Refills, Soft Stop, 04/01/20 14:52:00 EST, [facility] [place], [place] - [id number], Dose increased 05/09/19. Label in Colombian., 178, cm, 03/16/20 12:24:00 EST, Height, 153.2, [...] sleep apnea, Com plex sleep apnea(Confirmed) Active N/CCA/Clark Driver-Remedios MárquezKbvnenw-[phone]/Health nursing home, active care coordination(Confirmed) Active 1Impression: 1. Mildly [...] Shah MD Dictated Date/Time: 02/25/11 11:07 a Procedures Procedure Date Related Diagnosis Body Site Status Esophagogastroduodenoscopy a nd polypectomy of stomach 04/16/20 Completed Vital Signs Most recent to oldest [Reference Range]: 1 2 3 Height 177.9 cm (04/16/20 1:38 PM) Weight 150 kg (04/16/20 1:38 PM) Oxygen Saturation [94-100 %] 99 % (04/16/20 3:18 PM) 96 % (04/16/20 3:05 PM) 96 % (04/16/20 1:38 PM) Pulse Rate [55-90 bpm] 102 bpm *H* (04/16/20 1:38 PM) Body Mass Index [18.5-24.99] 47.4 *>HHI* (04/16/20 1:38 PM) Blood Pressure [90-138/55-84 mm Hg] 134/88mm Hg (04/16/20 3:18 PM) 149/96mm Hg *H* (04/16/20 3:05 PM) 158/95mm Hg *H* (04/16/20 1:38 PM) Respiratory Rate [16-30 br/min] 18 br/min (04/16/20 3:18 PM) 20 br/min (04/16/20 3:05 PM) 20 br/min (04/16/20 1:38 PM) Temperature [96.8-100.4 DegF] 98 DegF (04/16/20 1:38 PM) Mode of Delivery (Oxygen) Room air (04/16/20 3:18 PM) Room air (04/16/20 3:05 PM) Room air (04/16/20 1:38 PM) Temperature Route Tympanic (04/16/20 1:38 PM) Social History Social History Type Response Smoking Status Never smoker entered on: 10/02/13 Sex
--- OUTSIDE RECORDS SUMMARY | 2022-08-02 17:45 | XMS_ITS | Continuity of Care Document ---
Author Name Unknown Organization [facility] Address [address] [place] [address]- Care Team Providers Care Microstrategy Bi Developer Name Role Phone Delia ACOSTA, Lamine Covington Primary Care Physician Encounter [facility] Date(s): 04/14/20 - 05/14/20 [facility] [address], [place] [address] Allergies, Adverse Reactions, Alerts Substance Reaction [...] 18:13:00 EST, Aerosol, Route to Pharmacy Electronically, [id number], [facility] [place], [place] - [id number], 177, cm... Start Date: 01/02/20 Status: Ordered amLODIPine 5 mg oral tablet 5 mg, 1, tablet, By Mouth, Daily, # 30 tablet, Refills 11, Tot. Refills 11, Maintenance, 02/03/20 16:45:00 EST, Route to Pharmacy Electronically, [facility], [place] - [id number], 178, cm, 01/28/20 6:28:00 EST, Height, 158, [...] 3 Refills, Maintenance, 02/24/20 11:16:00 EST, Tablet, [facility], [place] - [id number], Label in Sammarinese., 178, cm, 02/04/20 15:21:00 EST, Height, 158, kg, 01/07/20 14:48:00 EST, Dry Weight Start Date: 02/24/20 Status: Ordered chlorthalidone 25 mg oral tablet 12.5 mg, 0.5, tablet, By Mouth, Daily, # 15 tablet, Refills 5, Tot. Refills 5, Maintenance, 02/04/20 15:34:00 EST, Route to Pharmacy Electronically, [facility], [place] - [id number], Partial fill upon patient request if the [...] mL, 0 Refills, Maintenance, 02/24/20 11:15:00 EST, [place], [facility], [place] - [id number], 1 sprays Nares, Both 2 times a day, 178, cm, 02/04/20 15:21:00 EST, Height, 158, kg, 01/07/20 14:48:0... Start Date: 02/24/20 Status: Ordered Flovent Diskus 100 mcg/inh inhalation powder 1 puffs, Inhalation, 2 times a day, # 60 each, 0 Refills, Maintenance, 03/03/20 10:49:00 EST, Powder, [facility] [id number], Partial fill upon patient request if the prescription is for a schedule II opioid drug., 1 puffs Inha... Start Date: 03/03/20 Status: Ordered GuaiFENesin DM 20 mg-200 mg/10 mL oral liquid 10 mL, By Mouth, Every 4 hours, PRN as needed for cough, not to exceed 6 doses/day, # 120 mL, 0 Refills, Maintenance, 03/03/20 11:05:00 EST, Liquid, [facility] [id number], Partial fill upon patient request if the prescription... Start Date: 03/03/20 Status: Ordered metFORMIN 500 mg oral tablet, extended release 1 tablet = 500 mg, By Mouth, Daily, # 30 tablet, 11 Refills, Maintenance, 02/03/20 16:44:00 EST, ERTablet, [facility] [id number], Partial fill upon patient request if the [...] 01/28/20 9:40:00 EST, Route to Pharmacy Electronically, [facility] 3, Partial fill upon patient request if the prescription is for a schedule II o... Start Date: 01/28/20 Status: Ordered omeprazole 20 mg oral enteric coated capsule 1 capsule = 20 mg, By Mouth, 2 times a day, # 60 capsule, 2 Refills, Soft Stop, 04/01/20 14:52:00 EST, [facility] [place], [place] - [id number], Dose increased 05/09/19. Label in Sammarinese., 178, cm, 03/16/20 12:24:00 EST, Height, 153.2, [...] sleep apnea, Com plex sleep apnea(Confirmed) Active BHN/CCA/Measurement Supervisor-Remedios MárquezZncvudo-[phone]/Health intermediate, active care coordination(Confirmed) Active 1Impression: 1. Mildly [...]
--- OUTSIDE RECORDS SUMMARY | 2022-08-02 17:45 | XMS_ITS | Continuity of Care Document ---
Author Name Unknown Organization [facility] Address [address] [place] [address]- Care Team Providers Care Lab Associate Name Role Phone Delia ACOSTA, Lamine Covington Primary Care Physician [place] [facility] [place] 02/11/21 [facility] [address] [place] [address]- Attending Physician: Gabbie Cason MD Referring Physician: [...] 10/23/20 10:46:00 EDT, Route to Pharmacy Electronically, [facility]/pharmacy #[id number], Partial fill upon patient request if the prescription is for a schedule II opioid drug... Start Date: 10/23/20 Status: Ordered chlorthalidone 25 mg oral tablet 12.5 mg, 0.5, tablet, By Mouth, Daily, # 15 tablet, Refills 1, Tot. Refills 1, Maintenance, 10/23/20 10:48:00 EDT, Route to Pharmacy Electronically, [facility]/pharmacy #[id number], Partial fill upon patient request if the prescription is for a schedule II opioid... Start Date: 10/23/20 Status: Ordered Colace sodium 100 mg oral capsule 100 mg, 1, capsule, By Mouth, Daily in AM, # 30 capsule, Refills 1, Tot. Refills 1, Maintenance, 10/23/20 11:49:00 EDT, Route to Pharmacy Electronically, [facility]/pharmacy #[id number], Partial fill upon patientrequest if the prescription is for a schedule II op... Start Date: 10/23/20 Status: Ordered diclofenac 1% topical gel 1 application, Topically, 4 times a day, # 100 Gm, 0 Refills, Maintenance, 11/23/20 13:32:00 EDT, Gel, [facility] [place], [place] - [phone], Partial fill upon patient request if the prescription is for a schedule II opioid drug., 177, cm, 10... Start Date: 11/23/20 Status: Ordered diphenhydrAMINE 50 mg oral tablet = 50 mg, By Mouth, Every 6 hours, PRN Anxiety, # 60 tablet, 1 Refills, Maintenance, 10/23/20 10:48:00 EDT, Tablet, [facility]/pharmacy #[id number], Partial fill upon patient request if the prescription is for a schedule II opioid drug., 177, cm, 10/22/20 21:57:00... Start Date: 10/23/20 Status: Ordered folic acid 1 mg oral tablet 1, tablet, By Mouth, Daily, # 30 tablet, Refills 1, Route to Pharmacy Electronically, [facility], 177, cm, 12/17/20 10:34:00 EDT, Height, 148, kg, 10/16/20 15:12:00 EDT, Dry Weight Start Date: 01/01/21 Status: Ordered gabapentin 600 mg oral tablet 1 tablet, By Mouth, 3 times a day, # 90 tablet, 1 Refills, [facility], 177, cm, 12/17/20 10:34:00 EDT, Height, 148, kg, 10/16/20 15:12:00 EDT, Dry Weight Start Date: 01/01/21 Status: Ordered loratadine 10 mg oral tablet 1, tablet, By Mouth, Daily, # 30 tablet, Refills 1, Route to Pharmacy Electronically, [facility], 177, cm, 12/17/20 10:34:00 EDT, [...] Mouth, Daily, # 30 tablet, 11 Refills, [facility], 177, cm, 02/04/21 10:29:00 EST, Height, 148, kg, 10/16/20 15:12:00 EDT, Dry Weight Start Date: 02/10/21 Status: Ordered MiraLax oral powder for reconstitution = 17 Gm, By Mouth, Daily, # 255 Gm, 1 Refills, Maintenance, 10/23/20 10:49:00 EDT, [facility]/pharmacy #[id number], Partial fill upon patient [...] 10/23/20 10:51:00 EDT, Route to Pharmacy Electronically, [facility]/pharmacy #[id number], Partial fill upon patient request if the prescription is for a schedule II opioid drug.... Start Date: 10/23/20 Status: Ordered risperiDONE 3 mg oral tablet 3 mg, 1, tablet, By Mouth, Daily at bedtime, # 30 tablet, Refills 1, Tot. Refills 1, Maintenance, 10/23/20 10:52:00 EDT, Route to Pharmacy Electronically, [facility]/pharmacy #[id number], Partial fill upon patient request if the prescription is for a schedule II o... Start Date: 10/23/20 Status: Ordered Tylenol 8 HR Arthritis Pain 650 mg oral tablet, extended release 1 tablet = 650 mg, By Mouth, Every 8 hours, PRN as needed for pain, # 50 tablet, 0 Refills, Maintenance, 12/17/20 15:15:00 EDT, ER Tablet, [place], [place] - [id number], Partial fillupon patient request if the prescription [...] sleep apnea, Com plex sleep apnea(Confirmed) Active BHN/CCA/Manager Pediatric-Remedios MárquezEfnakme-[phone]/Health half-way, active care coordination(Confirmed) Active Severe obesity(Confirmed) [...] oldest [Reference Range]: 1 Height 177 cm (02/04/21 10:29 AM) Oxygen Saturation [94-100 %] 96 % (02/04/21 10:29 AM) Pulse Rate [55-90 bpm] 99 bpm *H* (02/04/21 10:29 AM) Blood Pressure [90-138/55-84 mm Hg] 135/ 81mm Hg (02/04/21 10:29 AM) Respiratory Rate [16-30 br/min] 24 br/mi n (02/04/21 10:29 AM) Temperature [96.8-100.4 DegF] 98.0 DegF (02/04/21 10:29 AM) Mode of Delivery (Oxygen) Room air (02/04/21 10:29 AM) Blood pressure sites Arm, left (02/04/21 10:29 AM) Temperature Route Temporal (02/04/21 10:29 AM) Social History Social History Type Response Smoking Status Never smoker entered on: 10/02/13 Sex
--- OUTSIDE RECORDS SUMMARY | 2022-08-02 17:45 | XMS_ITS | Continuity of Care Document ---
Author Name Unknown Organization [facility] Address [address] [place] [address]- Care Team Providers Care Typo Machine Operator Name Role Phone Delia ACOSTA, Lamine Covington Primary Care Physician [phone] Encounter [facility] Date(s): 11/08/19 - 12/08/19 [facility] [address] [place] [address]- [facility] Attending Physician: AdmMarsha bourne Admitting Physician: Admtr, [...] 15:33:00 EDT, Aerosol, Route to Pharmacy Electronically, [id number], [place], [place] - [id number], 177, cm... Start Date: 10/15/19 Status: Ordered amLODIPine 5 mg oral tablet 5 mg, 1, tablet, By Mouth, Daily, # 30 tablet, Refills 11, Tot. Refills 11, Maintenance, 05/09/19 8:48:00 EDT, Route to Pharmacy Electronically, [place], [place] -, 177, cm, 04/02/2009:47:00 EST, Height, 135, kg, 03/30/18 19:13:00 ES... Start Date: 05/09/19 Status: Ordered cetirizine 10 mg oral tablet 1 tablet = 10 mg, By Mouth, Daily, # 30 tablet, 1 Refills, Maintenance, 11/08/19 14:15:00 EDT, Tablet, [place], [place] - [id number], Label in French., 177, cm, 10/15/19 14:42:00 EDT, Height, 135, kg, 03/30/18 19:13:00 EST, Dry Weight Start Date: 11/08/19 Status: Ordered Coricidin HBP Chest Congestion & Cough 10 mg-200 mg oral capsule 1 capsule, By Mouth, Every 4 hours, PRN for cough, not to exceed 6 doses/day. French label, # 60 capsule, 0 Refills, Maintenance, 10/15/19 15:34:00 EDT, Capsule, [place], [place] - [id number], 1 capsule By Mouth Every 4 hours,PRN:for... [...] Gm, 3 Refills, Maintenance, 08/28/19 8:53:00 EDT, [place], [place], [place] -, 2 sprays Nares, Both Daily [...] 5 Refills, Soft Stop, 05/09/19 8:49:00 EDT, [place], [place] -, 177, cm, 04/02/19 10:47:00 EST, Height, 135, kg, 03/30/18 19:13:00 EST, Dry Weight Start Date: 05/09/19 Status: Ordered Metoprolol Tartrate 25 mg oral tablet See Instructions, TAKE 1 & 1/2 TABLETS BY MOUTH 2 (two) times a day, # 90 tablet, 3 Refills, Soft Stop, 05/09/19 8:49:00 EDT, [place], [place] -, 177, cm, 04/02/19 10:47:00 EST, Height, 135, kg, 03/30/18 19:13:00 EST, Dry Weight Start Date: 05/09/19 Status: Ordered omeprazole 20 mg oral enteric coated capsule 1 capsule = 20 mg, By Mouth, 2 times a day, # 60 capsule, 3 Refills, Soft Stop, 07/09/19 10:02:00 EDT, [place], [place] -, Dose increased 05/09/19. Label in French., 177, cm, 04/02/19 10:47:00 EST, Height, 135, kg, 03/30/18 19:13:00... Start Date: 07/09/19 Status: Ordered simvastatin 10 mg oral tablet See Instructions, TAKE ONE TABLET BY MOUTH DAILY AT BEDTIME, # 30 tablet, Refills 11, Tot. Refills 11, Soft Stop, 05/09/19 8:49:00 EDT, Instructions Replace Required Details, Route to Pharmacy Electronically, [place], [place] -, 177,... Start Date: 05/09/19 Status: [...]
--- OUTSIDE RECORDS SUMMARY | 2022-08-02 17:45 | XMS_ITS | Continuity of Care Document ---
Author Name Unknown Organization [facility] Address [address] [place] [address]- Care Team Providers Care Echocardiologist Name Role Phone Lamine Lin MD Primary Care Physician [phone] [place] [facility] [place] 09[place]/21 [facility] [address] [place] [address]- Attending Physician: Lamine Lin MD Admitting Physician: [...] 08/18/21 10:14:00 EDT, Route to Pharmacy Electronically, [place], [place] - [id number],Partial fill upon patient request if the prescripti... Start Date: 08/18/21 Status: Ordered buPROPion 150 mg/24 hours (XL) oral tablet, extended release 1 tablet = 150 mg, By Mouth, Daily, # 30 tablet, 0 Refills, Maintenance, 09/13/21 7:13:00 EDT, XL Tablet, [place], [place] - [id number], Partial fill upon patient request if the prescription is for a schedule II opioid drug., 1 tablet... Start Date: 09/13/21 Status: Ordered chlorthalidone 25 mg oral tablet 12.5 mg, 0.5, tablet, By Mouth, Daily, # 15 tablet, Refills 1, Tot. Refills 1, Maintenance, 08/18/21 10:14:00 EDT, Route to Pharmacy Electronically, [place], [place] - [id number], Partial fill upon patient request if the prescription... Start Date: 08/18/21 Status: Ordered gabapentin 600 mg oral tablet 1 tablet = 600 mg, By Mouth, 3 times a day, # 90 tablet, 1 Refills, Maintenance, 08/18/21 10:14:00 EDT, Tablet, [place], [place] - [id number], Partial fill upon patient request if the prescription is for a schedule II opioid drug., 17... Start Date: 08/18/21 Stop Date: 10/17/21 Status: Ordered hydrOXYzine pamoate 50 mg oral capsule = 50 mg, By Mouth, Every 6 hours, PRN Anxiety, # 60 capsule, 1 Refills, Maintenance, 08/18/21 10:15:00 EDT, Capsule, [place], [place] - [id number], Partial fill upon patient request if the prescription is for a schedule II opioid drug... Start Date: 08/18/21 Status: Ordered loratadine 10 mg oral tablet 10 mg, 1, tablet, By Mouth, Daily, # 30 tablet, Refills 1, Tot. Refills 1, Maintenance, 08/18/21 10:15:00 EDT, Route to Pharmacy Electronically, [facility] [id number], Partial fill upon patient request if the prescription is f... Start Date: 08/18/21 Stop Date: 10/17/21 Status: Ordered metFORMIN 500 mg oral tablet, extended release 1 tablet = 500 mg, By Mouth, Daily, # 30 tablet, 1 Refills, Maintenance, 08/18/21 10:15:00 EDT, ER Tablet, [facility] [id number], Partial fill upon patient request if the prescription is for a schedule II opioid drug., 178, cm... Start Date: 08/18/21 Status: Ordered paliperidone 234 mg/1.5 mL intramuscular suspension, extended release = 234 mg, Intramuscular, Every 28 days, Due on 09/13/2021, # 1 each, 1 Refills, Maintenance, 08/18/21 10:16:00 EDT, [facility] [id number], Partial fill upon patient request ifthe prescription [...] EDT, Route to Pharmacy Electronically, [facility] [id number], Partial fill upon patient request if the [...] sleep apnea, Com plex sleep apnea(Confirmed) Active BHN/CCA/Frozen Foods Manager-Remedios MárquezNhgahhg-[phone]/Health half-way, active care coordination(Confirmed) Active Severe obesity(Confirmed) [...]
--- OUTSIDE RECORDS SUMMARY | 2022-08-02 17:45 | XMS_ITS | Continuity of Care Document ---
Author Name Unknown Organization [facility] Address [address] [place] [address]- Care Team Providers Care Enforcement Officer Name Role Phone Delia ACOSTA, Lamine Covington Primary Care Physician [phone] Encounter [facility] [place] Date(s): 01/01/20 - 01/31/20 [facility] [address] [address] Attending Physician: Admtr, Ar8 Admitting Physician: Admtr, [...] 18:13:00 EST, Aerosol, Route to Pharmacy Electronically, [id number], [place], [place] - [id number], 177, cm... Start Date: 01/02/20 Status: Ordered amLODIPine 5 mg oral tablet 5 mg, 1, tablet, By Mouth, Daily, # 30 tablet, Refills 11, Tot. Refills 11, Maintenance, 05/09/19 8:48:00 EDT, Route to Pharmacy Electronically, [place], [place] -, 177, cm, 04/02/2009:47:00 EST, Height, [...] 1 Refills, Maintenance, 01/02/20 18:13:00 EST, Tablet, [place], [place] - [id number], Label in [place]., 177, cm, 12/30/19 11:37:00 EST, Height, 135, [...] Gm, 3 Refills, Maintenance, 08/28/19 8:53:00 EDT, [place], [place], [place] -, 2 sprays Nares, Both Daily in AM, 177, cm, 07/29/19 13:56:00 EDT, Height, 135, kg, 03/30/18 19:13:00 EST, Dry Weight Start Date: 08/28/19 Status: Ordered Flonase 50 mcg/inh nasal spray 1 sprays, Nares, Both, 2 times a day, # 9.9 mL, 0 Refills, Maintenance, 12/18/19 17:38:00 EDT, [place], [place], [place] - [id number], 1 sprays Nares, Both 2 times a day, 177, cm, 10/15/19 14:42:00 EDT, Height, 135, kg, 03/30/18 19:13:0... Start Date: 12/18/19 Status: Ordered metFORMIN 500 mg oral tablet, extended release See Instructions, TAKE ONE TABLET BY MOUTH DAILY, # 30 tablet, 5 Refills, Soft Stop, 05/09/19 8:49:00 EDT, [place], [place] -, 177, cm, 04/02/19 10:47:00 EST, [...] 9:40:00 EST, Route to Pharmacy Electronically, [facility], Partial fill upon patient request if the prescription is for a schedule II o... Start Date: 01/28/20 Status: Ordered omeprazole 20 mg oral enteric coated capsule 1 capsule = 20 mg, By Mouth, 2 times a day, # 60 capsule, 2 Refills, Soft Stop, 01/02/20 18:13:00 EST, [place], [place] - [id number], Dose increased 05/09/19. Label in [place]., 177, cm, 12/30/19 11:37:00 EST, Height, 135, kg, ... 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 Mildly [...]
--- OUTSIDE RECORDS SUMMARY | 2022-08-02 17:45 | XMS_ITS | Continuity of Care Document ---
Author Name Unknown Organization [facility] Address [address] [place] [address]- Care Team Providers Care Grain Combiner Name Role Phone Delia ACOSTA, Lamine Covington Primary Care Physician [phone] Encounter [facility] Date(s): 09/03/20 - 10/03/20 [facility] [address] [place] [address]- Allergies, Adverse Reactions, Alerts Substance Reaction Severity [...] 18:13:00 EST, Aerosol, Route to Pharmacy Electronically, [id number], [facility] [place], [place] - [id number], 177, cm... Start Date: 01/02/20 Status: Ordered amLODIPine 5 mg oral tablet 5 mg, 1, tablet, By Mouth, Daily, # 30 tablet, Refills 11, Tot. Refills 11, Maintenance, 02/03/20 16:45:00 EST, Route to Pharmacy Electronically, [facility], [facility] [id number], 178, cm, 01/28/20 6:28:00 EST, Height, 158, kg, 01/07/20... Start Date: 02/03/20 Status: Ordered cetirizine 10 mg oral tablet 1 tablet = 10 mg, By Mouth, Daily, # 30 tablet, 5 Refills, Maintenance, 07/01/20 9:26:00 EDT, Tablet, [facility], [facility] [id number], Label in Maori., 177.9, cm, 04/16/20 13:38:00 EST, Height, 153.2, kg, 03/16/20 12:24:00 EST, Dry We... Start Date: 07/01/20 Status: Ordered chlorthalidone 25 mg oral tablet 12.5 mg, 0.5, tablet, By Mouth, Daily, # 15 tablet, Refills 5, Tot. Refills 5, Maintenance, 07/31/20 11:20:00 EDT, Route to Pharmacy Electronically, [facility], [facility] [id number], Partial fill upon patient request if the prescription... Start Date: 07/31/20 Status: Ordered Flonase 50 mcg/inh nasal spray 1 sprays, Nares, Both, 2 times a day, # 9.9 mL, 0 Refills, Maintenance, 02/24/20 11:15:00 EST, [place], [facility], [facility] [id number], 1 sprays Nares, Both 2 times a day, 178, cm, 02/04/20 15:21:00 EST, Height, 158, kg, 01/07/20 14:48:0... Start Date: 02/24/20 Status: Ordered gabapentin 300 mg oral capsule 300 mg, 1, capsule, By Mouth, 3 times a day, # 90 capsule, Refills 5, Tot. Refills 5, Maintenance, 08/21/20 11:48:00 EDT, Route to Pharmacy Electronically, [place], [place] - [id number], Dose decreased 08/21/20, 177.9, cm, 08/20/20 10:0... Start Date: 08/21/20 Status: Ordered metFORMIN 500 mg oral tablet, extended release 1 tablet = 500 mg, By Mouth, Daily, # 30 tablet, 11 Refills, Maintenance, 02/03/20 16:44:00 EST, ERTablet, [place], [place] - [id number], Partial fill upon patient request if the prescription is for a schedule II opioid drug., 178, c... Start Date: 02/03/20 Status: Ordered non slip bath mat non slip bath mat, See Instructions, # 1 each, Refills 0, Tot. Refills 0, Maintenance, dx: ESHA, SOB, LEFT LEG PAIN LEFT LEG SWELLING RISK FOR TKOJXY16.81 G46.33,RO6.2.M79.605,R22.42, 07/23/20 13:54:00 EDT, Supply Start Date: 07/23/20 Status: Ordered olanzapine 5 mg oral tablet 5 mg, 1, tablet, By Mouth, Daily in AM, # 30 tablet, Refills 0, Tot. Refills 0, Maintenance, 01/28/20 9:40:00 EST, Route to Pharmacy Electronically, [facility], Partial fill upon patient request if the prescription is for a schedule II o... Start Date: 01/28/20 Status: Ordered omeprazole 20 mg oral enteric coated capsule 1 capsule, By Mouth, 2 times a day, # 60 capsule, 2 Refills, Maintenance, 09/30/20 8:09:00 EDT, [facility], 177.9, cm, 09/22/20 12:43:00 EDT, [...] 0 Refills, Maintenance, 09/07/20 17:58:00 EDT, Tablet, [place], [place] - [id number], Partial fill upon patient request if the [...] sleep apnea, Com plex sleep apnea(Confirmed) Active N/[facility]/Gatehouse Attendant-Remedios MárquezIkdhkyx-[phone]/Health chcf, active care coordination(Confirmed) Active Treatment-emergent central s [...]
--- OUTSIDE RECORDS SUMMARY | 2022-08-02 17:45 | XMS_ITS | Continuity of Care Document ---
Author Name Unknown Organization [facility] Address [address] [place] [address]- Care Team Providers Care Hydraulic Miner Name Role Phone Not on Staff, PCP Primary Care Physician Unavail able [facility] Date(s): 10/17/19 - 10/17/[address] [address]- [facility] Discharge Disposition: A-Error Chart/Home (ED Only) Attending Physician: Shmuel Klein MD Admitting Physician: Shmuel Klein MD Referring Physician: Not on Staff, Referring MD Allergies, Adverse Reactions, Alerts No Known Medication Allergies
--- OUTSIDE RECORDS SUMMARY | 2022-08-02 17:45 | XMS_ITS | Continuity of Care Document ---
Author Name Unknown Organization [facility] Address [address] [place] [address]- Care Team Providers Care Hvac Refrigeration Technician Name Role Phone Delia ACOSTA, Lamine Covington Primary Care Physician Encounter [facility] Date(s): 10/12/21 - 11/11/21 [facility] [address] [place] [address]- Allergies, Adverse Reactions, Alerts Substance Reaction Severity [...] 08/18/21 10:14:00 EDT, Route to Pharmacy Electronically, [facility] [place], [place] - [id number],Partial fill upon patient request if the prescripti... Start Date: 08/18/21 Status: Ordered buPROPion 150 mg/24 hours (XL) oral tablet, extended release 1 tablet, By Mouth, Daily, # 30 tablet, 0 Refills, Maintenance, 11/08/21 8:24:00 EDT, [facility], 30, TAKE 1 TABLET BY MOUTH ONCE DAILY, 177.8, cm, 10/20/21 8:51:00 EDT, Height, 136.078, kg, 09/02/21 19:37:00 EDT, Dry Weight Start Date: 11/08/21 Status: Ordered chlorthalidone 25 mg oral tablet 12.5 mg, 0.5, tablet, By Mouth, Daily, # 15 tablet, Refills 1, Tot. Refills 1, Maintenance, 08/18/21 10:14:00 EDT, Route to Pharmacy Electronically, [facility] [place], [place] - [id number], Partial fill upon patient request if the prescription... Start Date: 08/18/21 Status: Ordered docusate sodium 100 mg oral capsule 1 capsule, By Mouth, Daily, # 30 each, 1 Refills, Maintenance, 11/08/21 8:25:00 EDT, [facility], 177.8, cm, 10/20/21 8:51:00 EDT, Height, 136.078, [...] 1 Refills, Maintenance, 08/18/21 10:14:00 EDT, Tablet, [facility] [id number], Partial fill upon patient request if the prescription is for a schedule II opioid drug., 17... Start Date: 08/18/21 Stop Date: 10/17/21 Status: Ordered hydrOXYzine pamoate 50 mg oral capsule = 50 mg, By Mouth, Every 6 hours, PRN Anxiety, # 60 capsule, 1 Refills, Maintenance, 08/18/21 10:15:00 EDT, Capsule, [facility] [id number], Partial fill upon patient request if the prescription is for a schedule II opioid drug... Start Date: 08/18/21 Status: Ordered loratadine 10 mg oral tablet 10 mg, 1, tablet, By Mouth, Daily, # 30 tablet, Refills 1, Tot. Refills 1, Maintenance, 08/18/21 10:15:00 EDT, Route to Pharmacy Electronically, [facility] [id number], Partial fill upon patient request if the prescription is f... Start Date: 08/18/21 Stop Date: 10/17/21 Status: Ordered metFORMIN 500 mg oral tablet, extended release 1 tablet = 500 mg, By Mouth, Daily, with food German label please., # 30 tablet, 5 Refills, Maintenance, 10/20/21 9:49:00 EDT, ER Tablet, [facility] [id number], Partial fillupon patient request if the prescription is for a... Start Date: 10/20/21 Status: Ordered mupirocin 2% topical cream See Instructions, apply thin layer to face twice a day., # 30 Gm, 0 Refills, Maintenance, 10/05/21 8:55:00 EDT, [facility] [id number], Partial fill upon patient request if the prescription is for a schedule II opioid drug., ap... Start Date: 10/05/21 Status: Ordered mupirocin 2% topical ointment See Instructions, Topically 2 times a day, # 22 Gm, 0 Refills, Maintenance, 10/05/21 17:24:00 EDT, [facility] [id number], Partial fill upon patient request if the prescription is for a schedule II opioid drug., Topically 2 kiya... Start Date: 10/05/21 Status: Ordered paliperidone 234 mg/1.5 mL intramuscular suspension, extended release = 234 mg, Intramuscular, Every 28 days, Due on 09/13/2021, # 1 each, 1 Refills, Maintenance, 08/18/21 10:16:00 EDT, [facility] [id number], Partial fill upon patient request ifthe prescription [...] Maintenance,08/18/21 10:19:00 EDT, Route to Pharmacy Electronically, [facility] [id number], Partial fill upon patient request if the [...] sleep apnea, Com plex sleep apnea(Confirmed) Active BHN/CCA/Wealth Management Manager-Remedios MárquezOegerwr-[phone]/Health long-term, active care coordination(Confirmed) Active Treatment-emergent central [...] Team Personnel Name: Lamine Lin MD Address: [address] [place] [address]
--- OUTSIDE RECORDS SUMMARY | 2022-08-02 17:45 | XMS_ITS | Continuity of Care Document ---
Author Name Unknown Organization [facility] Address [address] [place] [address]- Care Team Providers Care Topographical Field Assistant Name Role Phone Delia ACOSTA, Lamine Covington Primary Care Physician [place] [facility] [place] 08/[place]/21 [facility] [address] [place] [address]- Allergies, Adverse Reactions, Alerts Substance Reaction Severity [...] 08/18/21 10:14:00 EDT, Route to Pharmacy Electronically, [facility] [place], [place] - [id number],Partial fill upon patient request if the prescripti... Start Date: 08/18/21 Status: Ordered chlorthalidone 25 mg oral tablet 12.5 mg, 0.5, tablet, By Mouth, Daily, # 15 tablet, Refills 1, Tot. Refills 1, Maintenance, 08/18/21 10:14:00 EDT, Route to Pharmacy Electronically, [facility] [phone], Partial fill upon patient request if the prescription... Start Date: 08/18/21 Status: Ordered gabapentin 600 mg oral tablet 1 tablet = 600 mg, By Mouth, 3 times a day, # 90 tablet, 1 Refills, Maintenance, 08/18/21 10:14:00 EDT, Tablet, [facility] [id number], Partial fill upon patient request if the prescription is for a schedule II opioid drug., 17... Start Date: 08/18/21 Stop Date: 10/17/21 Status: Ordered hydrOXYzine pamoate 50 mg oral capsule = 50 mg, By Mouth, Every 6 hours, PRN Anxiety, # 60 capsule, 1 Refills, Maintenance, 08/18/21 10:15:00 EDT, Capsule, [facility] [id number], Partial fill upon patient request if the prescription is for a schedule II opioid drug... Start Date: 08/18/21 Status: Ordered loratadine 10 mg oral tablet 10 mg, 1, tablet, By Mouth, Daily, # 30 tablet, Refills 1, Tot. Refills 1, Maintenance, 08/18/21 10:15:00 EDT, Route to Pharmacy Electronically, [facility] [id number], Partial fill upon patient request if the prescription is f... Start Date: 08/18/21 Stop Date: 10/17/21 Status: Ordered metFORMIN 500 mg oral tablet, extended release 1 tablet = 500 mg, By Mouth, Daily, # 30 tablet, 1 Refills, Maintenance, 08/18/21 10:15:00 EDT, ER Tablet, [facility] [id number], Partial fill upon patient request if the prescription is for a schedule II opioid drug., 178, cm... Start Date: 08/18/21 Status: Ordered paliperidone 234 mg/1.5 mL intramuscular suspension, extended release = 234 mg, Intramuscular, Every 28 days, Due on 09/13/2021, # 1 each, 1 Refills, Maintenance, 08/18/21 10:16:00 EDT, [place], [place] - [id number], Partial fill upon patient request ifthe prescription [...] Maintenance,08/18/21 10:19:00 EDT, Route to Pharmacy Electronically, [place], [place] - [id number], Partial fill upon patient request if the [...] sleep apnea, Com plex sleep apnea(Confirmed) Active BHN/CCA/Pacs Administrator-Remedios MárquezJzgxuya-[phone]/Health snf, active care coordination(Confirmed) Active Severe obesity(Confirmed) Active [...]
--- OUTSIDE RECORDS SUMMARY | 2022-08-02 17:45 | XMS_ITS | Continuity of Care Document ---
Author Name Unknown Organization [facility] Address [address] [place] [address]- Care Team Providers Care Supervisor Shuttle Veneering Name Role Phone Delia ACOSTA, Lamine Covington Primary Care Physician [phone] [facility]counter [facility] Date[facility]s): 01/02/20 - 02/01/20 [facility] [address] [place] [address]- Allergies, Adverse Reactions, Alerts Substance Reaction Severity [...] 18:13:00 EST, Aerosol, Route to Pharmacy Electronically, [id number], [facility] [place], [place] - [id number], 177, cm... Start Date: 01/02/20 Status: Ordered amLODIPine 5 mg oral tablet 5 mg, 1, tablet, By Mouth, Daily, # 30 tablet, Refills 11, Tot. Refills 11, Maintenance, 05/09/19 8:48:00 EDT, Route to Pharmacy Electronically, [place], [place] -, 177, cm, 04/02/2009:47:00 EST, Height, [...] 1 Refills, Maintenance, 01/02/20 18:13:00 EST, Tablet, [place], [place] - [id number], Label in Greenlandic., 177, cm, 12/30/19 11:37:00 EST, Height, 135, [...] Gm, 3 Refills, Maintenance, 08/28/19 8:53:00 EDT, [place], [place], [place] -, 2 sprays Nares, Both Daily in AM, 177, cm, 07/29/19 13:56:00 EDT, Height, 135, kg, 03/30/18 19:13:00 EST, Dry Weight Start Date: 08/28/19 Status: Ordered Flonase 50 mcg/inh nasal spray 1 sprays, Nares, Both, 2 times a day, # 9.9 mL, 0 Refills, Maintenance, 12/18/19 17:38:00 EDT, [place], [place], [place] - [id number], 1 sprays Nares, Both 2 times a day, 177, cm, 10/15/19 14:42:00 EDT, Height, 135, kg, 03/30/18 19:13:0... Start Date: 12/18/19 Status: Ordered metFORMIN 500 mg oral tablet, extended release See Instructions, TAKE ONE TABLET BY MOUTH DAILY, # 30 tablet, 5 Refills, Soft Stop, 05/09/19 8:49:00 EDT, [place], [place] -, 177, cm, 04/02/19 10:47:00 EST, [...] 01/28/20 9:40:00 EST, Route to Pharmacy Electronically, [facility] 3, Partial fill upon patient request if the prescription is for a schedule II o... Start Date: 01/28/20 Status: Ordered omeprazole 20 mg oral enteric coated capsule 1 capsule = 20 mg, By Mouth, 2 times a day, # 60 capsule, 2 Refills, Soft Stop, 01/02/20 18:13:00 EST, [place], [place] - [id number], Dose increased 05/09/19. Label in Green[place]ic., 177, cm, 12/30/19 11:37:00 EST, Height, 135, [...] apnea, Com plex sleep apnea(Confirmed) Active BHN/CCA/Supervisor [employer]-Remedios MárquezNkwbpps-[phone]/Health detention, active care coordination(Confirmed) Active 1Impression: 1. [...]
--- OUTSIDE RECORDS SUMMARY | 2022-08-02 17:45 | XMS_ITS | Continuity of Care Document ---
Author Name Unknown Organization [facility] Address [address] [place] [address]- Care Team Providers Care Print Developer Name Role Phone Delia ACOSTA, Lamine Covington Primary Care Physician [phone] Encounter [facility] Date(s): 04/13/20 - 05/13/20 [facility] [address] [place] [address]- Allergies, Adverse Reactions, Alerts Substance Reaction Severity [...] 18:13:00 EST, Aerosol, Route to Pharmacy Electronically, [id number], [facility] [place], [place] - [id number], 177, cm... Start Date: 01/02/20 Status: Ordered amLODIPine 5 mg oral tablet 5 mg, 1, tablet, By Mouth, Daily, # 30 tablet, Refills 11, Tot. Refills 11, Maintenance, 02/03/20 16:45:00 EST, Route to Pharmacy Electronically, [facility], [place] - [id number], 178, cm, 01/28/20 6:28:00 EST, Height, 158, [...] 3 Refills, Maintenance, 02/24/20 11:16:00 EST, Tablet, [facility], [place] - [id number], Label in Serbian., 178, cm, 02/04/20 15:21:00 EST, Height, 158, kg, 01/07/20 14:48:00 EST, Dry Weight Start Date: 02/24/20 Status: Ordered chlorthalidone 25 mg oral tablet 12.5 mg, 0.5, tablet, By Mouth, Daily, # 15 tablet, Refills 5, Tot. Refills 5, Maintenance, 02/04/20 15:34:00 EST, Route to Pharmacy Electronically, [facility], [place] - [id number], Partial fill upon patient request if the [...] mL, 0 Refills, Maintenance, 02/24/20 11:15:00 EST, [place], [facility], [place] - [id number], 1 sprays Nares, Both 2 times a day, 178, cm, 02/04/20 15:21:00 EST, Height, 158, kg, 01/07/20 14:48:0... Start Date: 02/24/20 Status: Ordered Flovent Diskus 100 mcg/inh inhalation powder 1 puffs, Inhalation, 2 times a day, # 60 each, 0 Refills, Maintenance, 03/03/20 10:49:00 EST, Powder, [facility] [id number], Partial fill upon patient request if the prescription is for a schedule II opioid drug., 1 puffs Inha... Start Date: 03/03/20 Status: Ordered GuaiFENesin DM 20 mg-200 mg/10 mL oral liquid 10 mL, By Mouth, Every 4 hours, PRN as needed for cough, not to exceed 6 doses/day, # 120 mL, 0 Refills, Maintenance, 03/03/20 11:05:00 EST, Liquid, [facility] [id number], Partial fill upon patient request if the prescription... Start Date: 03/03/20 Status: Ordered metFORMIN 500 mg oral tablet, extended release 1 tablet = 500 mg, By Mouth, Daily, # 30 tablet, 11 Refills, Maintenance, 02/03/20 16:44:00 EST, ERTablet, [facility] [id number], Partial fill upon patient request if the [...] 01/28/20 9:40:00 EST, Route to Pharmacy Electronically, [facility] 3, Partial fill upon patient request if the prescription is for a schedule II o... Start Date: 01/28/20 Status: Ordered omeprazole 20 mg oral enteric coated capsule 1 capsule = 20 mg, By Mouth, 2 times a day, # 60 capsule, 2 Refills, Soft Stop, 04/01/20 14:52:00 EST, [facility] [place], [place] - [id number], Dose increased 05/09/19. Label in Serbian., 178, cm, 03/16/20 12:24:00 EST, Height, 153.2, [...] sleep apnea, Com plex sleep apnea(Confirmed) Active BHN/CCA/Telegraph Mechanic-Remedios MárquezBklbhec-[phone]/Health fpc, active care coordination(Confirmed) Active 1Impression: 1. Mildly [...]
--- OUTSIDE RECORDS SUMMARY | 2022-08-02 17:45 | XMS_ITS | Continuity of Care Document ---
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 Refills 1, Maintenance, 10/23/20 10:48:00 EDT, [id number] Partial fill upon patient request if the prescription is for a schedule II opioid... Start Date: 10/23/20 Status: Ordered Colace sodium 100 mg oral capsule 100 mg, 1, capsule, By Mouth, Daily in AM, # 30 capsule, Refills 1, Tot. Refills 1, Maintenance, 10/23/20 11:49:00 EDT, Route to Pharmacy Electronically, [facility]/pharmacy #[id number], Partial fill upon patientrequest if the prescription is for a schedule II op... Start Date: 10/23/20 Status: Ordered diclofenac 1% topical gel 1 application, Topically, 4 times a day, # 100 Gm, 0 Refills, Maintenance, 11/23/20 13:32:00 EDT, Gel, [place], [place] - [id number], Partial fill upon patient request if the prescription is for a schedule II opioid drug., 177, cm, 10... Start Date: 11/23/20 Status: Ordered diphenhydrAMINE 50 mg oral tablet = 50 mg, By Mouth, Every 6 hours, PRN Anxiety, # 60 tablet, 1 Refills, Maintenance, 10/23/20 10:48:00 EDT, Tablet, [facility]/pharmacy #[id number], Partial fill upon patient request if the prescription is for a schedule II opioid drug., 177, cm, 10/22/20 21:57:00... Start Date: 10/23/20 Status: Ordered folic acid 1 mg oral tablet See Instructions, TAKE ONE TABLET BY MOUTH EVERY DAY, # 30 tablet, Refills 5, Tot. Refills 5, Maintenance, 03/07/21 15:15:00 EST, Instructions Replace Required Details, Route to Pharmacy Electronically, [place], [place] - [id number],... Start Date: 03/07/21 Status: Ordered gabapentin 600 mg oral tablet 1 tablet, By Mouth, 3 times a day, # 90 tablet, 1 Refills, [facility], anu Rich, 02/04/21 10:29:00 EST, Height, 148, kg, 10/16/20 15:12:00 EDT, Dry Weight Start Date: 03/08/21 Status: Ordered loratadine 10 mg oral tablet 1, tablet, By Mouth, Daily, # 30 tablet, Refills 1, Route to Pharmacy Electronically, [facility], 177, cm, 12/17/20 10:34:00 EDT, Height, 148, kg, 10/16/20 15:12:00 EDT, Dry Weight Start Date: 01/01/21 Status: Ordered losartan 25 mg oral tablet 1 tablet, By Mouth, Daily, # 30 tablet, 5 Refills, [facility], 177, cm, 02/04/21 10:29:00 EST,Height, 148, kg, 10/16/20 15:12:00 EDT, Dry Weight Start Date: 03/08/21 Status: Ordered MetFORMIN (Eqv-Glucophage XR) 500 mg oral tablet, extended release 1 tablet, By Mouth, Daily, # 30 tablet, 11 Refills, [facility], 177, cm, 02/04/21 10:29:00 EST, Height, 148, kg, 10/16/20 15:12:00 EDT, Dry Weight Start Date: 02/10/21 Status: Ordered MiraLax oral powder for reconstitution = 17 Gm, By Mouth, Daily, # 255 Gm, 1 Refills, Maintenance, 10/23/20 10:49:00 EDT, [facility]/pharmacy #[id number], Partial fill upon patient request if the prescription is for a schedule II opioid drug., 17 Gm By Mouth Daily, 177, cm, 10/22/20 21:57:00 EDT, oLri... Start Date: 10/23/20 Status: Ordered OXcarbazepine 300 mg oral tablet 300 mg, 1, tablet, By Mouth, 2 times a day, # 60 tablet, Refills 1, Tot. Refills 1, Maintenance, 10/23/20 10:48:00 EDT, Route to Pharmacy Electronically, [facility]/pharmacy #[id number], Partial fill upon patientrequest if [...] 10/23/20 10:51:00 EDT, Route to Pharmacy Electronically, [facility]/pharmacy #[id number], Partial fill upon patient request if the prescription is for a schedule II opioid drug.... Start Date: 10/23/20 Status: Ordered risperiDONE 3 mg oral tablet 3 mg, 1, tablet, By Mouth, Daily at bedtime, # 30 tablet, Refills 1, Tot. Refills 1, Maintenance, 10/23/20 10:52:00 EDT, Route to Pharmacy Electronically, [facility]/pharmacy #[id number], Partial fill upon patient request if the prescription is for a schedule II o... Start Date: 10/23/20 Status: Ordered Tylenol 8 HR Arthritis Pain 650 mg oral tablet, extended release 1 tablet = 650 mg, By Mouth, Every 8 hours, PRN as needed for pain, # 50 tablet, 0 Refills, Maintenance, 12/17/20 15:15:00 EDT, ER Tablet, [facility] - [place], [place] - [id number], Partial fillupon patient request if the prescription [...] sleep apnea, Com plex sleep apnea(Confirmed) Active BHN/CCA/Hourly Team Members-Remedios MárquezKhfpdqw-[phone]/Health shelter, active care coordination(Confirmed) Active Severe obesity(Confirmed) Active [...]
--- OUTSIDE RECORDS SUMMARY | 2022-08-02 17:45 | XMS_ITS | Continuity of Care Document ---
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 Role Phone Delia ACOSTA, Lamine Covington Primary Care Physician [facility] Date[facility]s): 06/03/22 - 07/03/22 [facility] [address] [place] [address]- Allergies, Adverse Reactions, Alerts Substance Reaction Severity Status lisinopril dry cough Active Dust Mild Active Milk Products Nausea and vomiting Persistent Moderate Active cloNIDine confusion Active Immunizations Given and Recorded Vaccine Date Status Refusal Reason [id number] 12y+ bivalent booster vax 02/07/22 Given influenza [...] each, 1 Refills, Maintenance, 06/06/22 16:49:00 EDT, [facility] [place], [place] - [id number], 178anu, 06/06/22 16:31:00 EDT, Height, 101.4, kg, 01/12/22 14:14:00 EST, Dry Weight Start Date: 06/06/22 Status: Ordered ferrous fumarate 324 mg oral tablet 1 tablet = 324 mg, By Mouth, Every 48 hours, # 15 tablet, 5 Refills, Maintenance, 06/06/22 16:37:00EDT, [facility] [id number], Partial fill upon patient request if the prescription is for a schedule II opioid drug., 178, cm,... Start Date: 06/06/22 Status: Ordered folic acid 1 mg oral tablet 1, tablet, By Mouth, Daily, # 30 tablet, Refills 5, Tot. Refills 5, Maintenance, 06/06/22 16:49:00 EDT, Route to Pharmacy Electronically, [facility] [id number], 178, cm, 06/06/22 16:31:00 EDT, Height, 101.4, kg, 01/12/22 14:14... Start Date: 06/06/22 Status: Ordered gabapentin 600 mg oral tablet 1 tablet = 600 mg, By Mouth, 3 times a day, # 90 tablet, 5 Refills, Maintenance, 06/06/22 16:41:00 EDT, Tablet, [facility] [id number], Partial fill upon patient request if the prescription is for a schedule II opioid drug., 17... Start Date: 06/06/22 Stop Date: 12/03/22 Status: Ordered loratadine 10 mg oral tablet 10 mg, 1, tablet, By Mouth, Daily, # 30 tablet, Refills 3, Tot. Refills 3, Maintenance, 06/06/22 16:41:00 EDT, Route to Pharmacy Electronically, [facility] [id number], Partial fill upon patient request if the prescription is f... Start Date: 06/06/22 Stop Date: 10/04/22 Status: Ordered MiraLax oral powder for reconstitution = 17 Gm, By Mouth, Daily, dissolve in water before taking, # 527 Gm, 1 Refills, Maintenance, 06/06/22 16:49:00 EDT, REC Powder, [facility] [id number], Partial fill upon patient request if the prescription is for a schedule II... Start Date: 06/06/22 Status: Ordered multivitamin Multiple Vitamins oral tablet 1 tablet, By Mouth, Daily, # 90 tablet, 3 Refills, Maintenance, 06/06/22 16:40:00 EDT, [place], [place] - [id number], Partial fill upon patient request if the [...] sleep apnea, Complex sleep apnea Confirmed Active BHN/CCA/Civil Engineering Intern-Tia Jarrett [phone]/Health alf, active care coordination Confirmed Active Treatment-emergent central [...] Team Personnel Name: Ela Beltrán RN Position: [facility] AMB Nurse Member Role: Primary Care Nurse Name: Alaina Gillette RN Position: [facility] RN Member Role: Primary Care Nurse Name: Kristyn Tapia RN Position: [facility] SN RN Member Role: Primary Care Nurse Name: Lorna Gentile NP Position: [facility] Associate Professional Member Role: Primary Care Nurse Address: Address: [address] [place] [address] Name: Venus Jaramillo RN Position: [facility] RN Member Role: Primary Care Nurse Name: Flor Donnelly RN Position: [facility] RN Member Role: Primary Care Nurse Name: Ruiz Matson RN Position: [facility] RN Member Role: Primary Care Nurse Name: Belle Ames RN Position: [facility] RN Member Role: Primary Care Nurse Name: Alex Rios RN Position: [facility] RN Member Role: Primary Care Nurse Name: Daniel Hernandez III, RN Position: [facility] RN Member Role: Primary Care Nurse Name: Jordi Carter MD Position: [facility] Renal MD Member Role: Lifetime Consulting Physician Address: Address: [address] [facility] [place] [address]- [place] Name: Loren Hamlin RN Position: [facility] RN Member Role: Primary Care Nurse Name: Kenzie Martínez RN, Malia Position: [facility] RN Member Role: Primary Care Nurse Name: Jessica Dia RN Position: [facility] RN Member Role: Primary Care Nurse Name: Lamine Lin MD Position: [facility] Primary Care Physician Member Role: PCP Address: Address: [address] [facility] [place] [address]- [place] Name: Rose Abraham RN Position: [facility] Hospital Sales Representatives Member Role: Primary Care Nurse Name: Vinod Botello MD Position: [facility] Psychiatry MD Member Role: Lifetime Consulting Physician Address: Address: [address] [place] [address]- [place] Care Team Related Persons Name: MALIA HARRIS Name: KATHLEEN JACQUES Address: home [address] [place] [address] Name: VIRGIL PARKS Address: home [address] [place] [address] Name: MICHAELA MONTENEGRO Address: home UNKNOWN Name: MIGUEL PUENTES Address: home [address] [place] [address]
--- OUTSIDE RECORDS SUMMARY | 2022-08-02 17:45 | XMS_ITS | Continuity of Care Document ---
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 Start Date: 08/18/21 Status: Ordered buPROPion 150 mg/24 hours (XL) oral tablet, extended release 1 tablet, By Mouth, Daily, # 30 tablet, 0 Refills, [facility], 30, TAKE 1 TABLET BY MOUTH ONCEDAILY, 177.8, cm, 10/05/21 8:09:00 EDT, Height, 136.078, kg, 09/02/21 19:37:00 EDT, Dry Weight Start Date: 10/13/21 Status: Ordered chlorthalidone 25 mg oral tablet 12.5 mg, 0.5, tablet, By Mouth, Daily, # 15 tablet, Refills 1, Tot. Refills 1, Maintenance, 08/18/21 10:14:00 EDT, Route to Pharmacy Electronically, [facility] [place], [place] - [id number], Partial fill upon patient request if the [...] 1 Refills, Maintenance, 08/18/21 10:14:00 EDT, Tablet, [facility] [id number], Partial fill upon patient request if the prescription is for a schedule II opioid drug., 17... Start Date: 08/18/21 Stop Date: 10/17/21 Status: Ordered hydrOXYzine pamoate 50 mg oral capsule = 50 mg, By Mouth, Every 6 hours, PRN Anxiety, # 60 capsule, 1 Refills, Maintenance, 08/18/21 10:15:00 EDT, Capsule, [facility] [id number], Partial fill upon patient request if the prescription is for a schedule II opioid drug... Start Date: 08/18/21 Status: Ordered loratadine 10 mg oral tablet 10 mg, 1, tablet, By Mouth, Daily, # 30 tablet, Refills 1, Tot. Refills 1, Maintenance, 08/18/21 10:15:00 EDT, Route to Pharmacy Electronically, [facility] [id number], Partial fill upon patient request if the prescription is f... Start Date: 08/18/21 Stop Date: 10/17/21 Status: Ordered metFORMIN 500 mg oral tablet, extended release 1 tablet = 500 mg, By Mouth, Daily, with food Yakut label please., # 30 tablet, 5 Refills, Maintenance, 10/20/21 9:49:00 EDT, ER Tablet, [facility] [id number], Partial fillupon patient request if the prescription is for a... Start Date: 10/20/21 Status: Ordered mupirocin 2% topical cream See Instructions, apply thin layer to face twice a day., # 30 Gm, 0 Refills, Maintenance, 10/05/21 8:55:00 EDT, [facility] [id number], Partial fill upon patient request if the prescription is for a schedule II opioid drug., ap... Start Date: 10/05/21 Status: Ordered mupirocin 2% topical ointment See Instructions, Topically 2 times a day, # 22 Gm, 0 Refills, Maintenance, 10/05/21 17:24:00 EDT, [facility] [id number], Partial fill upon patient request if the prescription is for a schedule II opioid drug., Topically 2 kiya... Start Date: 10/05/21 Status: Ordered paliperidone 234 mg/1.5 mL intramuscular suspension, extended release = 234 mg, Intramuscular, Every 28 days, Due on 09/13/2021, # 1 each, 1 Refills, Maintenance, 08/18/21 10:16:00 EDT, [facility] [id number], Partial fill upon patient request ifthe prescription [...] Maintenance,08/18/21 10:19:00 EDT, Route to Pharmacy Electronically, [facility] [id number], Partial fill upon patient request if the [...] sleep apnea, Com plex sleep apnea(Confirmed) Active BHN/CCA/Senior Landscape Architect-Remedios MárquezQpcyvns-[phone]/Health mcfp, active care coordination(Confirmed) Active Treatment-emergent central s [...] Team Personnel Name: Lamine Lin MD Address: [address] [place] [address]
--- OUTSIDE RECORDS SUMMARY | 2022-08-02 17:45 | XMS_ITS | Continuity of Care Document ---
Author Name Unknown Organization [facility] Address [address] [place] [address]- Care Team Providers Care Maintenance Director Name Role Phone Delia ACOSTA, Lamine Covington Primary Care Physician [phone] Encounter [facility] [place] Date(s): 03/16/20 - 04/15/20 [facility] [address] [place], [place] [address] Attending Physician: AdmMarsha bourne Admitting Physician: Admtr, [id number] Referring Physician: Admtr, [id number] Allergies, Adverse Reactions, Alerts No Known Medication [...] 18:13:00 EST, Aerosol, Route to Pharmacy Electronically, [id number], [facility], [facility] [id number], 177, cm... Start Date: 01/02/20 Status: Ordered amLODIPine 5 mg oral tablet 5 mg, 1, tablet, By Mouth, Daily, # 30 tablet, Refills 11, Tot. Refills 11, Maintenance, 02/03/20 16:45:00 EST, Route to Pharmacy Electronically, [facility], [facility] [id number], 178, cm, 01/28/20 6:28:00 EST, Height, 158, [...] 3 Refills, Maintenance, 02/24/20 11:16:00 EST, Tablet, [facility], [facility] [id number], Label in South Korean., 178, cm, 02/04/20 15:21:00 EST, Height, 158, kg, 01/07/20 14:48:00 EST, Dry Weight Start Date: 02/24/20 Status: Ordered chlorthalidone 25 mg oral tablet 12.5 mg, 0.5, tablet, By Mouth, Daily, # 15 tablet, Refills 5, Tot. Refills 5, Maintenance, 02/04/20 15:34:00 EST, Route to Pharmacy Electronically, [facility], [facility] [id number], Partial fill upon patient request if the [...] mL, 0 Refills, Maintenance, 02/24/20 11:15:00 EST, [place], [facility], [facility] [id number], 1 sprays Nares, Both 2 times a day, 178, cm, 02/04/20 15:21:00 EST, Height, 158, kg, 01/07/20 14:48:0... Start Date: 02/24/20 Status: Ordered Flovent Diskus 100 mcg/inh inhalation powder 1 puffs, Inhalation, 2 times a day, # 60 each, 0 Refills, Maintenance, 03/03/20 10:49:00 EST, Powder, [facility], [facility] [id number], Partial fill upon patient request if the prescription is for a schedule II opioid drug., 1 puffs Inha... Start Date: 03/03/20 Status: Ordered GuaiFENesin DM 20 mg-200 mg/10 mL oral liquid 10 mL, By Mouth, Every 4 hours, PRN as needed for cough, not to exceed 6 doses/day, # 120 mL, 0 Refills, Maintenance, 03/03/20 11:05:00 EST, Liquid, [facility] [id number], Partial fill upon patient request if the prescription... Start Date: 03/03/20 Status: Ordered metFORMIN 500 mg oral tablet, extended release 1 tablet = 500 mg, By Mouth, Daily, # 30 tablet, 11 Refills, Maintenance, 02/03/20 16:44:00 EST, [facility], [place], [place] - [id number], Partial fill upon patient request if the [...] 01/28/20 9:40:00 EST, Route to Pharmacy Electronically, [facility] 3, Partial fill upon patient request if the prescription is for a schedule II o... Start Date: 01/28/20 Status: Ordered omeprazole 20 mg oral enteric coated capsule 1 capsule = 20 mg, By Mouth, 2 times a day, # 60 capsule, 2 Refills, Soft Stop, 04/01/20 14:52:00 EST, [facility] [place] - [id number], Dose increased 05/09/19. Label in [place] Korean., [...] sleep apnea, Com plex sleep apnea(Confirmed) Active BHN/CCA/Recreation Clerk-Remedios Kufwbsu-[phone]/Health mcfp, active care coordination(Confirmed) Active 1Impression: 1. [...]
--- OUTSIDE RECORDS SUMMARY | 2022-08-02 17:45 | XMS_ITS | Continuity of Care Document ---
Author Name Unknown Organization [facility] Address [address] [place] [address]- Care Team Providers Care Test Puller Name Role Phone Delia ACOSTA, Lamine Covington Primary Care Physician Encounter [facility] [place] Date(s): 03/16/20 - 04/15/20 [facility] [address], [place] [address] Attending Physician: AdmMarsha bourne Admitting Physician: [...] 18:13:00 EST, Aerosol, Route to Pharmacy Electronically, [id number], [facility], [facility] [id number], 177, cm... Start Date: 01/02/20 Status: Ordered amLODIPine 5 mg oral tablet 5 mg, 1, tablet, By Mouth, Daily, # 30 tablet, Refills 11, Tot. Refills 11, Maintenance, 02/03/20 16:45:00 EST, Route to Pharmacy Electronically, [facility], [facility] [id number], 178, cm, 01/28/20 6:28:00 EST, Height, 158, [...] 3 Refills, Maintenance, 02/24/20 11:16:00 EST, Tablet, [facility], [facility] [id number], Label in Nigerien., 178, cm, 02/04/20 15:21:00 EST, Height, 158, kg, 01/07/20 14:48:00 EST, Dry Weight Start Date: 02/24/20 Status: Ordered chlorthalidone 25 mg oral tablet 12.5 mg, 0.5, tablet, By Mouth, Daily, # 15 tablet, Refills 5, Tot. Refills 5, Maintenance, 02/04/20 15:34:00 EST, Route to Pharmacy Electronically, [facility], [facility] [id number], Partial fill upon patient request if the [...] mL, 0 Refills, Maintenance, 02/24/20 11:15:00 EST, [place], [facility], [facility] [id number], 1 sprays Nares, Both 2 times a day, 178, cm, 02/04/20 15:21:00 EST, Height, 158, kg, 01/07/20 14:48:0... Start Date: 02/24/20 Status: Ordered Flovent Diskus 100 mcg/inh inhalation powder 1 puffs, Inhalation, 2 times a day, # 60 each, 0 Refills, Maintenance, 03/03/20 10:49:00 EST, Powder, [facility], [facility] [id number], Partial fill upon patient request if the prescription is for a schedule II opioid drug., 1 puffs Inha... Start Date: 03/03/20 Status: Ordered GuaiFENesin DM 20 mg-200 mg/10 mL oral liquid 10 mL, By Mouth, Every 4 hours, PRN as needed for cough, not to exceed 6 doses/day, # 120 mL, 0 Refills, Maintenance, 03/03/20 11:05:00 EST, Liquid, [facility] [id number], Partial fill upon patient request if the prescription... Start Date: 03/03/20 Status: Ordered metFORMIN 500 mg oral tablet, extended release 1 tablet = 500 mg, By Mouth, Daily, # 30 tablet, 11 Refills, Maintenance, 02/03/20 16:44:00 EST, [facility], [place], [place] - [id number], Partial fill upon patient request if the [...] 2 Refills, Soft Stop, 04/01/20 14:52:00 EST, [facility] [place] - [id number], Dose increased 05/09/19. Label in Nigerien., 178, cm, 03/16/20 12:24:00 EST, Height, 153.2, [...] sleep apnea, Com plex sleep apnea(Confirmed) Active BHN/CCA/Registered Nurse Maternity-Remedios [phone]/Health chcf, active care coordination(Confirmed) Active 1Impression: 1. [...]
--- OUTSIDE RECORDS SUMMARY | 2022-08-02 17:45 | XMS_ITS | Continuity of Care Document ---
Author Name Unknown Organization [facility] ter Address [address] [place] [address]- Care Team Providers Care Actuary Name Role Phone Delia ACOSTA, Lamine Covington Primary Care Physician [phone] Encounter [facility] [place] Date(s): 03/17/21 - 03/18/[address] [address]- Encounter Diagnosis Suicidal ideation(Final) - 03/17/21 Discharge Disposition: Transfer to [facility] Attending Physician: Fredi Meng MD Admitting Physician: Fredi Meng MD Referring Physician: Not on Staff, Referring MD Allergies, Adverse Reactions, Alerts Substance Reaction Severity Status lisinopril dry cough Active Milk Products Nausea and vomiting Persistent [...] Mouth, Daily, # 30 tablet, 5 Refills, [facility], 177, cm, 02/04/21 10:29:00 EST,Height, 148, kg, 10/16/20 15:12:00 EDT, Dry Weight Start Date: 03/08/21 Status: Ordered amLODIPine 5 mg oral tablet 5 mg, Tablet, By Mouth, 03/18/21 9:00:00 EST Start Date: 03/18/21 Stop Date: 03/18/21 Status: Completed chlorthalidone 25 mg oral tablet 12.5 mg, 0.5, tablet, By Mouth, Daily, # 15 tablet, Refills 1, Tot. Refills 1, Maintenance, 10/23/20 10:48:00 EDT, Route to Pharmacy Electronically, [facility]/pharmacy #[id number], Partial fill upon patient request if the prescription is for a schedule II opioid... Start Date: 10/23/20 Status: Ordered Colace sodium 100 mg oral capsule 100 mg, 1, capsule, By Mouth, Daily in AM, # 30 capsule, Refills 1, Tot. Refills 1, Maintenance, 10/23/20 11:49:00 EDT, Route to Pharmacy Electronically, [facility]/pharmacy #[id number], Partial fill upon patientrequest if the prescription is for a schedule II op... Start Date: 10/23/20 Status: Ordered diclofenac 1% topical gel 1 application, Topically, 4 times a day, # 100 Gm, 0 Refills, Maintenance, 11/23/20 13:32:00 EDT, Gel, [place], [place] - [id number], Partial fill upon patient request if the prescription is for a schedule II opioid drug., 177, cm, 10... Start Date: 11/23/20 Status: Ordered diphenhydrAMINE 50 mg oral tablet = 50 mg, By Mouth, Every 6 hours, PRN Anxiety, # 60 tablet, 1 Refills, Maintenance, 10/23/20 10:48:00 EDT, Tablet, [facility]/pharmacy #[id number], Partial fill upon patient request if the prescription is for a schedule II opioid drug., 177, cm, 10/22/20 21:57:00... Start Date: 10/23/20 Status: Ordered folic acid 1 mg oral tablet See Instructions, TAKE ONE TABLET BY MOUTH EVERY DAY, # 30 tablet, Refills 5, Tot. Refills 5, Maintenance, 03/07/21 15:15:00 EST, Instructions Replace Required Details, Route to Pharmacy Electronically, [facility] [id number],... Start Date: 03/07/21 Status: Ordered gabapentin 300 mg oral capsule 600 mg, Capsule, By Mouth, 03/18/21 9:00:00 EST Start Date: 03/18/21 Stop Date: 03/18/21 Status: Completed gabapentin 300 mg oral capsule 600 mg, Capsule, By Mouth, 03/18/21 15:00:00 EST Start Date: 03/18/21 Stop Date: 03/18/21 Status: Completed gabapentin 600 mg oral tablet 1 tablet, By Mouth, 3 times a day, # 90 tablet, 1 Refills, [facility], 177, cm, 02/04/21 10:29:00 EST, Height, 148, kg, 10/16/20 15:12:00 EDT, Dry Weight Start Date: 03/08/21 Status: Ordered loratadine 10 mg oral tablet 1, tablet, By Mouth, Daily, # 30 tablet, Refills 1, Route to Pharmacy Electronically, [facility], 177, cm, 12/17/20 10:34:00 EDT, Height, 148, kg, 10/16/20 15:12:00 EDT, Dry Weight Start Date: 01/01/21 Status: Ordered losartan 25 mg oral tablet 1 tablet, By Mouth, Daily, # 30 tablet, 5 Refills, [facility], 177, cm, 02/04/21 10:29:00 EST,Height, 148, kg, 10/16/20 15:12:00 EDT, Dry Weight Start Date: 03/08/21 Status: Ordered losartan 25 mg oral tablet 25 mg, Tablet, By Mouth, 03/18/21 9:00:00 EST Start Date: 03/18/21 Stop Date: 03/18/21 Status: Completed MetFORMIN (Eqv-Glucophage XR) 500 mg oral tablet, extended release 1 tablet, By Mouth, Daily, # 30 tablet, 11 Refills, [facility], 177, cm, 02/04/21 10:29:00 EST, Height, 148, kg, 10/16/20 15:12:00 EDT, Dry Weight Start Date: 02/10/21 Status: Ordered MiraLax oral powder for reconstitution = 17 Gm, By Mouth, Daily, # 255 Gm, 1 Refills, Maintenance, 10/23/20 10:49:00 EDT, [facility]/pharmacy #[id number], Partial fill upon patient request if the prescription is for a schedule II opioid drug., 17 Gm By Mouth Daily, 177, cm, 10/22/20 21:57:00 EDT, Heigh... Start Date: 10/23/20 Status: Ordered OXcarbazepine 300 mg oral tablet 300 mg, 1, tablet, By Mouth, 2 times a day, # 60 tablet, Refills 1, Tot. Refills 1, Maintenance, 10/23/20 10:48:00 EDT, Route to Pharmacy Electronically, [facility]/pharmacy #[id number], Partial fill upon patientrequest if [...] 10:51:00 EDT, Route to Pharmacy Electronically, [facility]/pharmacy #[id number], Partial fill upon patient request if the prescription is for a schedule II opioid drug.... Start Date: 10/23/20 Status: Ordered risperiDONE 3 mg oral tablet 3 mg, 1, tablet, By Mouth, Daily at bedtime, # 30 tablet, Refills 1, Tot. Refills 1, Maintenance, 10/23/20 10:52:00 EDT, Route to Pharmacy Electronically, [facility]/pharmacy #[id number], Partial fill upon patient request if the prescription is for a schedule II o... Start Date: 10/23/20 Status: Ordered Tylenol 8 HR Arthritis Pain 650 mg oral tablet, extended release 1 tablet = 650 mg, By Mouth, Every 8 hours, PRN as needed for pain, # 50 tablet, 0 Refills, Maintenance, 12/17/20 15:15:00 EDT, ER [facility], [place], [place] - [id number], Partial fillupon patient request if the prescription is for a s... Start Date: 12/17/20 Status: Ordered Problem List Condition Effective Dates Status Health Status Inform ant Diabetes mellitus(Confirmed) Active Esophageal reflux (GERD)(Confirmed) Active Gastric polyp(Confirmed) 1 Active Gynecomastia(Confirmed) Active Hypercholesterolemia(Confirmed) Active Hypertension(Confirmed) Active Sleep related hypoxia(Confirmed) Active [place](Confirmed) 2012 Active Morbid obesity with BMI of 4 5.0-49.9, adult(Confirmed) Active NAFLD (nonalcoholic fatty li evelia disease)(Confirmed) 2 Active Obstructive sleep apnea, Com plex sleep apnea(Confirmed) Active BHN/CCA/Human Services Supervisor-Remedios MárquezRxlrksi-[phone]/Health custodial, active care coordination(Confirmed) Active Severe obesity(Confirmed) [...] 3 Oxygen Saturation [94-100 %] 98 % (03/18/21 6:07 PM) 100 % (03/18/21 6:45 AM) 100 % (03/17/21 9:28 PM) Pulse Rate [55-90 bpm] 108 bpm *H* (03/18/21 6:07 PM) 60 bpm (03/18/21 6:45 AM) 63 bpm (03/17/21 9:28 PM) Blood Pressure [90-138/55-84 mm Hg] 150/87mm Hg *H* (03/18/21 6:07 PM) 115/54mm Hg (03/18/21 9:37 AM) 115/54mm Hg (03/18/21 9:37 AM) Respiratory Rate [16-30 br/min] 18 br/min (03/18/21 6:07 PM) 20 br/min (03/18/21 4:32 PM) 16 br/min (03/18/21 9:37 AM) Temperature [96.8-100.4 DegF] 98.3 DegF (03/18/21 6:07 PM) 98.7 DegF (03/18/21 6:45 AM) 98.9 DegF (03/17/21 9:28 PM) Mode of Delivery (Oxygen) Room air (03/18/21 6:07 PM) Room air (03/18/21 6:45 AM) Room air (03/17/21 9:28 PM) Blood pressure sites Arm, right (03/18/21 6:07 PM) Arm, right (03/18/21 6:45 AM) Arm, right (03/17/21 9:28 PM) Temperature Route Oral (03/18/21 6:07 PM) Oral (03/18/21 6:45 AM) Oral (03/17/21 9:28 PM) Social History Social History Type Response Smoking Status Never smoker entered on: 10/02/13 Sex
--- OUTSIDE RECORDS SUMMARY | 2022-08-02 17:45 | XMS_ITS | Continuity of Care Document ---
Author Name Unknown Organization [facility] Address [address] [place] [address]- Care Team Providers Care Check Writer Name Role Phone Delia ACOSTA, Lamine Covington Primary Care Physician [place] [facility] [place] Date(s): 12/25/19 - 01/31/20 [facility] [address] [address] Attending Physician: Yogesh ACOSTA, Opal Maldonado Admitting Physician: Yogesh ACOSTA, Opal Maldonado Referring Physician: Lamine Lin MD Allergies, Adverse [...] 18:13:00 EST, Aerosol, Route to Pharmacy Electronically, [id number], [place], [place] - [id number], 177, cm... Start Date: 01/02/20 Status: Ordered amLODIPine 5 mg oral tablet 5 mg, 1, tablet, By Mouth, Daily, # 30 tablet, Refills 11, Tot. Refills 11, Maintenance, 05/09/19 8:48:00 EDT, Route to Pharmacy Electronically, [place], [place] -, 177, cm, 04/02/2009:47:00 EST, Height, [...] 1 Refills, Maintenance, 01/02/20 18:13:00 EST, Tablet, [place], [place] - [id number], Label in [place]., 177, cm, 12/30/19 11:37:00 EST, Height, 135, [...] Gm, 3 Refills, Maintenance, 08/28/19 8:53:00 EDT, [facility], [place], [place] -, 2 sprays Nares, Both Daily in AM, 177, cm, 07/29/19 13:56:00 EDT, Height, 135, kg, 03/30/18 19:13:00 EST, Dry Weight Start Date: 08/28/19 Status: Ordered Flonase 50 mcg/inh nasal spray 1 sprays, Nares, Both, 2 times a day, # 9.9 mL, 0 Refills, Maintenance, 12/18/19 17:38:00 EDT, [facility], [place], [place] - [id number], 1 sprays Nares, Both 2 times a day, 177, cm, 10/15/19 14:42:00 EDT, Height, 135, kg, 03/30/18 19:13:0... Start Date: 12/18/19 Status: Ordered metFORMIN 500 mg oral tablet, extended release See Instructions, TAKE ONE TABLET BY MOUTH DAILY, # 30 tablet, 5 Refills, Soft Stop, 05/09/19 8:49:00 EDT, [place], [place] -, 177, cm, 04/02/19 10:47:00 EST, [...] Route to Pharmacy Electronically, [facility], Partial fill upon patient request if the prescription is for a schedule II o... Start Date: 01/28/20 Status: Ordered omeprazole 20 mg oral enteric coated capsule 1 capsule = 20 mg, By Mouth, 2 times a day, # 60 capsule, 2 Refills, Soft Stop, 01/02/20 18:13:00 EST, [place], [place] - [id number], Dose increased 05/09/19. Label in [place]., 177, cm, 12/30/19 11:37:00 EST, Height, 135, [...] sleep apnea, Com plex sleep apnea(Confirmed) Active BHN/CCA/Mechanical Development Engineer-Remedios MárquezCyfvjxd-[phone]/Health residential, active care coordination(Confirmed) Active 1Impression: 1. [...]
--- OUTSIDE RECORDS SUMMARY | 2022-08-02 17:45 | XMS_ITS | Continuity of Care Document ---
Author Name Unknown Organization [facility] ter Address [address] [place] [address]- Care Team Providers Care Kindergarten Instructional Assistant Name Role Phone Delia ACOSTA, Lamine Covington Primary Care Physician [phone] Encounter [facility] [place](s): 12/17/20 - 01/17/[address] [address]- Attending Physician: Riley Elder Admitting Physician: Riley Elder Referring Physician: Riley Elder Allergies, Adverse Reactions, Alerts Substance Reaction Severity [...] 10/23/20 10:46:00 EDT, Route to Pharmacy Electronically, [facility]/pharmacy #[id number], Partial fill upon patient request if the prescription is for a schedule II opioid drug... Start Date: 10/23/20 Status: Ordered chlorthalidone 25 mg oral tablet 12.5 mg, 0.5, tablet, By Mouth, Daily, # 15 tablet, Refills 1, Tot. Refills 1, Maintenance, 10/23/20 10:48:00 EDT, [id number], Partial fill upon patient request if the prescription is for a schedule II opioid... Start Date: 10/23/20 Status: Ordered Colace sodium 100 mg oral capsule 100 mg, 1, capsule, By Mouth, Daily in AM, # 30 capsule, Refills 1, Tot. Refills 1, Maintenance, 10/23/20 11:49:00 EDT, Route to Pharmacy Electronically, [facility]/pharmacy #[id number], Partial fill upon patientrequest if the prescription is for a schedule II op... Start Date: 10/23/20 Status: Ordered diclofenac 1% topical gel 1 application, Topically, 4 times a day, # 100 Gm, 0 Refills, Maintenance, 11/23/20 13:32:00 EDT, Gel, [facility] [place], [place] - [id number], Partial fill upon patient request if the prescription is for a schedule II opioid drug., 177, cm, 10... Start Date: 11/23/20 Status: Ordered diphenhydrAMINE 50 mg oral tablet = 50 mg, By Mouth, Every 6 hours, PRN Anxiety, # 60 tablet, 1 Refills, Maintenance, 10/23/20 10:48:00 EDT, Tablet, [facility]/pharmacy #[id number], Partial fill upon patient request if the prescription is for a schedule II opioid drug., 177, cm, 10/22/20 21:57:00... Start Date: 10/23/20 Status: Ordered folic acid 1 mg oral tablet 1, tablet, By Mouth, Daily, # 30 tablet, Refills 1, Route to Pharmacy Electronically, [facility], 177, cm, 12/17/20 10:34:00 EDT, Height, 148, kg, 10/16/20 15:12:00 EDT, Dry Weight Start Date: 01/01/21 Status: Ordered gabapentin 600 mg oral tablet 1 tablet, By Mouth, 3 times a day, # 90 tablet, 1 Refills, [facility], 177, cm, 12/17/20 10:34:00 EDT, Height, 148, kg, 10/16/20 15:12:00 EDT, Dry Weight Start Date: 01/01/21 Status: Ordered loratadine 10 mg oral tablet 1, tablet, By Mouth, Daily, # 30 tablet, Refills 1, Route to Pharmacy Electronically, [facility], 177, cm, 12/17/20 10:34:00 EDT, Height, 148, kg, 10/16/20 15:12:00 EDT, Dry Weight Start Date: 01/01/21 Status: Ordered losartan 25 mg oral tablet 25 mg, 1, tablet, By Mouth, Daily, # 30 tablet, Refills 1, Tot. Refills 1, Maintenance, 10/23/20 10:47:00 EDT, Route to Pharmacy Electronically, [facility]/pharmacy #[id number], Partial fill upon patient request if the prescription is for a schedule II opioid drug... Start Date: 10/23/20 Status: Ordered metFORMIN 500 mg oral tablet, extended release 1 tablet = 500 mg, By Mouth, Daily, # 30 tablet, 1 Refills, Maintenance, 10/23/20 10:47:00 EDT, ER Tablet, [facility]/pharmacy #[id number], Partial fill upon patient request if the prescription is for a schedule II opioid drug., 177, cm, 10/22/20 21:57:00 EDT, Hei... Start Date: 10/23/20 Status: Ordered MiraLax oral powder for reconstitution = 17 Gm, By Mouth, Daily, # 255 Gm, 1 Refills, Maintenance, 10/23/20 10:49:00 EDT, [facility]/pharmacy #[id number], Partial fill upon patient request if the prescription is for a schedule II opioid drug., 17 Gm By Mouth Daily, 177, cm, 10/22/20 21:57:00 EDT, Heigh... Start Date: 10/23/20 Status: Ordered OXcarbazepine 300 mg oral tablet 300 mg, 1, tablet, By Mouth, 2 times a day, # 60 tablet, Refills 1, Tot. Refills 1, Maintenance, 10/23/20 10:48:00 EDT, Route to Pharmacy Electronically, [facility]/pharmacy #[id number], Partial fill upon patientrequest if the [...] 10/23/20 10:51:00 EDT, Route to Pharmacy Electronically, [facility]/pharmacy #[id number], Partial fill upon patient request if the prescription is for a schedule II opioid drug.... Start Date: 10/23/20 Status: Ordered risperiDONE 3 mg oral tablet 3 mg, 1, tablet, By Mouth, Daily at bedtime, # 30 tablet, Refills 1, Tot. Refills 1, Maintenance, 10/23/20 10:52:00 EDT, Route to Pharmacy Electronically, [facility]/pharmacy #[id number], Partial fill upon patient request if the prescription is for a schedule II o... Start Date: 10/23/20 Status: Ordered Tylenol 8 HR Arthritis Pain 650 mg oral tablet, extended release 1 tablet = 650 mg, By Mouth, Every 8 hours, PRN as needed for pain, # 50 tablet, 0 Refills, Maintenance, 12/17/20 15:15:00 EDT, ER Tablet, [place], [place] - [id number], Partial fillupon patient request if the prescription [...] sleep apnea, Com plex sleep apnea(Confirmed) Active BHN/CCA/Business Analyst Ecommerce-Remedios MárquezEtfzcvu-[phone]/Health chcf, active care coordination(Confirmed) Active Treatment-emergent central [...]
--- OUTSIDE RECORDS SUMMARY | 2022-08-02 17:45 | XMS_ITS | Continuity of Care Document ---
Author Name Unknown Organization [facility] Adult Medicine Address [address] [place] [address]- Care Team Providers Care Blow Torch Burner Name Role Phone Delia ACOSTA, Lamine Covington Primary Care Physician [phone] [place] [facility] [place] 01[place]/21 [facility] [address] [place], [place] [address] Allergies, Adverse Reactions, Alerts Substance Reaction Severity [...] 10/23/20 10:46:00 EDT, Route to Pharmacy Electronically, [facility]/pharmacy #[id number], Partial fill upon patient request if the prescription is for a schedule II opioid drug... Start Date: 10/23/20 Status: Ordered chlorthalidone 25 mg oral tablet 12.5 mg, 0.5, tablet, By Mouth, Daily, # 15 tablet, Refills 1, Tot. Refills 1, Maintenance, 10/23/20 10:48:00 EDT, Route to Pharmacy Electronically, [facility]/pharmacy #[id number], Partial fill upon patient request if the prescription is for a schedule II opioid... Start Date: 10/23/20 Status: Ordered Colace sodium 100 mg oral capsule 100 mg, 1, capsule, By Mouth, Daily in AM, # 30 capsule, Refills 1, Tot. Refills 1, Maintenance, 10/23/20 11:49:00 EDT, Route to Pharmacy Electronically, [facility]/pharmacy #[id number], Partial fill upon patientrequest if the prescription is for a schedule II op... Start Date: 10/23/20 Status: Ordered diclofenac 1% topical gel 1 application, Topically, 4 times a day, # 100 Gm, 0 Refills, Maintenance, 11/23/20 13:32:00 EDT, Gel, [facility] [place], [place] - [phone], Partial fill upon patient request if the prescription is for a schedule II opioid drug., 177, cm, 10... Start Date: 11/23/20 Status: Ordered diphenhydrAMINE 50 mg oral tablet = 50 mg, By Mouth, Every 6 hours, PRN Anxiety, # 60 tablet, 1 Refills, Maintenance, 10/23/20 10:48:00 EDT, Tablet, [facility]/pharmacy #[id number], Partial fill upon patient request if the prescription is for a schedule II opioid drug., 177, cm, 10/22/20 21:57:00... Start Date: 10/23/20 Status: Ordered folic acid 1 mg oral tablet 1, tablet, By Mouth, Daily, # 30 tablet, Refills 1, Route to Pharmacy Electronically, [facility], 177, cm, 12/17/20 10:34:00 EDT, Height, 148, kg, 10/16/20 15:12:00 EDT, Dry Weight Start Date: 01/01/21 Status: Ordered gabapentin 600 mg oral tablet 1 tablet, By Mouth, 3 times a day, # 90 tablet, 1 Refills, [facility], 177, cm, 12/17/20 10:34:00 EDT, Height, 148, kg, 10/16/20 15:12:00 EDT, Dry Weight Start Date: 01/01/21 Status: Ordered loratadine 10 mg oral tablet 1, tablet, By Mouth, Daily, # 30 tablet, Refills 1, Route to Pharmacy Electronically, [facility], 177, cm, 12/17/20 10:34:00 EDT, Height, 148, kg, 10/16/20 15:12:00 EDT, Dry Weight Start Date: 01/01/21 Status: Ordered losartan 25 mg oral tablet 25 mg, 1, tablet, By Mouth, Daily, # 30 tablet, Refills 1, Tot. Refills 1, Maintenance, 10/23/20 10:47:00 EDT, Route to Pharmacy Electronically, [facility]/pharmacy #[id number], Partial fill upon patient request if the prescription is for a schedule II opioid drug... Start Date: 10/23/20 Status: Ordered metFORMIN 500 mg oral tablet, extended release 1 tablet = 500 mg, By Mouth, Daily, # 30 tablet, 1 Refills, Maintenance, 10/23/20 10:47:00 EDT, ER Tablet, [facility]/pharmacy #[id number], Partial fill upon patient request if the prescription is for a schedule II opioid drug., 177, cm, 10/22/20 21:57:00 EDT, Hei... Start Date: 10/23/20 Status: Ordered MiraLax oral powder for reconstitution = 17 Gm, By Mouth, Daily, # 255 Gm, 1 Refills, Maintenance, 10/23/20 10:49:00 EDT, [facility]/pharmacy #[id number], Partial fill upon patient request [...] 10/23/20 10:48:00 EDT, Route to Pharmacy Electronically, [facility]/pharmacy #[id number], Partial fill upon patientrequest if [...] 10/23/20 10:51:00 EDT, Route to Pharmacy Electronically, [facility]/pharmacy #[id number], Partial fill upon patient request if the prescription is for a schedule II opioid drug.... Start Date: 10/23/20 Status: Ordered risperiDONE 3 mg oral tablet 3 mg, 1, tablet, By Mouth, Daily at bedtime, # 30 tablet, Refills 1, Tot. Refills 1, Maintenance, 10/23/20 10:52:00 EDT, Route to Pharmacy Electronically, [facility]/pharmacy #[id number], Partial fill upon patient request if the prescription is for a schedule II o... Start Date: 10/23/20 Status: Ordered Tylenol 8 HR Arthritis Pain 650 mg oral tablet, extended release 1 tablet = 650 mg, By Mouth, Every 8 hours, PRN as needed for pain, # 50 tablet, 0 Refills, Maintenance, 12/17/20 15:15:00 EDT, ER Tablet, [facility] [place], [place] - [id number], Partial fillupon patient request if the prescription [...] sleep apnea, Com plex sleep apnea(Confirmed) Active [facility]/Thread Machine Operator-Remedios MárquezLxaztet-[phone]/Health alf, active care coordination(Confirmed) Active Treatment-emergent central s [...]
--- OUTSIDE RECORDS SUMMARY | 2022-08-02 17:46 | XMS_ITS | Continuity of Care Document ---
Author Name Unknown Organization [facility] Adult Medicine Address [address] [place] [address]- Care Team Providers Care Core Drier Name Role Phone Delia ACOSTA, Lamine Covington Primary Care Physician [phone] Encounter [facility] Date(s): 10/18/19 - 11/17/19 [facility] [address] [place] [address]- [facility] Allergies, Adverse Reactions, Alerts Substance Reaction Severity [...] 15:33:00 EDT, Aerosol, Route to Pharmacy Electronically, [id number], [facility] [place], [place] - [id number], 177, cm... Start Date: 10/15/19 Status: Ordered amLODIPine 5 mg oral tablet 5 mg, 1, tablet, By Mouth, Daily, # 30 tablet, Refills 11, Tot. Refills 11, Maintenance, 05/09/19 8:48:00 EDT, Route to Pharmacy Electronically, [place], [place] -, 177, cm, 04/02/2009:47:00 EST, Height, 135, kg, 03/30/18 19:13:00 ES... Start Date: 05/09/19 Status: Ordered cetirizine 10 mg oral tablet 1 tablet = 10 mg, By Mouth, Daily, # 30 tablet, 1 Refills, Maintenance, 11/08/19 14:15:00 EDT, Tablet, [place], [place] - [id number], Label in Prydeinig., 177, cm, 10/15/19 14:42:00 EDT, Height, 135, kg, 03/30/18 19:13:00 EST, Dry Weight Start Date: 11/08/19 Status: Ordered Coricidin HBP Chest Congestion & Cough 10 mg-200 mg oral capsule 1 capsule, By Mouth, Every 4 hours, PRN for cough, not to exceed 6 doses/day. Prydeinig label, # 60 capsule, 0 Refills, Maintenance, 10/15/19 15:34:00 EDT, Capsule, [place], [place] - [id number], 1 capsule By Mouth Every 4 hours,PRN:for... [...] Gm, 3 Refills, Maintenance, 08/28/19 8:53:00 EDT, [place], [place], [place] -, 2 sprays Nares, Both Daily [...] 5 Refills, Soft Stop, 05/09/19 8:49:00 EDT, [place], [place] -, 177, cm, 04/02/19 10:47:00 EST, Height, 135, kg, 03/30/18 19:13:00 EST, Dry Weight Start Date: 05/09/19 Status: Ordered Metoprolol Tartrate 25 mg oral tablet See Instructions, TAKE 1 & 1/2 TABLETS BY MOUTH 2 (two) times a day, # 90 tablet, 3 Refills, Soft Stop, 05/09/19 8:49:00 EDT, [facility] [place] -, 177, cm, 04/02/19 10:47:00 EST, Height, 135, kg, 03/30/18 19:13:00 EST, Dry Weight Start Date: 05/09/19 Status: Ordered omeprazole 20 mg oral enteric coated capsule 1 capsule = 20 mg, By Mouth, 2 times a day, # 60 capsule, 3 Refills, Soft Stop, 07/09/19 10:02:00 EDT, [place], [place] -, Dose increased 05/09/19. Label in Prydeinig., 177, cm, 04/02/19 10:47:00 EST, Height, 135, kg, 03/30/18 19:13:00... Start Date: 07/09/19 Status: Ordered simvastatin 10 mg oral tablet See Instructions, TAKE ONE TABLET BY MOUTH DAILY AT BEDTIME, # 30 tablet, Refills 11, Tot. Refills 11, Soft Stop, 05/09/19 8:49:00 EDT, Instructions Replace Required Details, Route to Pharmacy Electronically, [place], [place] -, 177,... Start Date: 05/09/19 Status: [...]
--- OUTSIDE RECORDS SUMMARY | 2022-08-02 17:46 | XMS_ITS | Continuity of Care Document ---
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 Start Date: 03/29/21 Stop Date: 04/28/21 Status: Ordered chlorthalidone 25 mg oral tablet 12.5 mg, 0.5, tablet, By Mouth, Daily, # 15 tablet, Refills 0, Tot. Refills 0, Maintenance, 03/29/21 14:20:00 EST, Route to Pharmacy Electronically, [facility] [id number], Partial fill upon patient request if the prescription... Start Date: 03/29/21 Stop Date: 04/28/21 Status: Ordered diclofenac 1% topical gel 1 application, Topically, 4 times a day, # 100 Gm, 0 Refills, Maintenance, 03/29/21 14:20:00 EST, Gel, [facility] [id number], Partial fill upon patient request if the prescription is for a schedule II opioid drug., 178, cm, 02... Start Date: 03/29/21 Stop Date: 04/12/21 Status: Ordered diphenhydrAMINE 50 mg oral tablet 1 tablet = 50 mg, By Mouth, Daily at bedtime, PRN for insomnia, for 30 days, # 30 tablet, 0 Refills, Acute 04/28/21 14:24:00 EST, 03/29/21 14:24:00 EST, Tablet, [facility] [id number], Partial fill upon patient request if the p... Start Date: 03/29/21 Stop Date: 04/28/21 Status: Ordered docusate sodium 100 mg oral capsule 100 mg, 1, capsule, By Mouth, Daily, # 30 capsule, Refills 0, Tot. Refills 0, Maintenance, 03/29/2213:21:00 EST, Route to Pharmacy Electronically, [facility] [id number], Partial fill upon patient request if the prescription i... Start Date: 03/29/21 Stop Date: 04/28/21 Status: Ordered Flonase 50 mcg/inh nasal spray 2 sprays = 100 mcg, Nares, Both, Daily, # 16 Gm, 0 Refills, Maintenance, 03/29/21 14:21:00 EST, Nasal [place], [facility] [id number], Partial fill upon patient request if the prescription is for a schedule II opioid drug., 2 spr... Start Date: 03/29/21 Stop Date: 04/12/21 Status: Ordered folic acid 1 mg oral tablet 1 mg, 1, tablet, By Mouth, Daily, # 30 tablet, Refills 0, Tot. Refills 0, Maintenance, 03/29/21 14:21:00 EST, Route to Pharmacy Electronically, [facility] [id number], Partialfill upon patient request if the prescription is fo... Start Date: 03/29/21 Stop Date: 04/28/21 Status: Ordered gabapentin 600 mg oral tablet 1 tablet = 600 mg, By Mouth, 3 times a day, # 90 tablet, 0 Refills, Maintenance, 03/29/21 14:25:00 EST, Tablet, [facility] [id number], Partial fill upon patient request if the prescription is for a schedule II opioid drug., 17... Start Date: 03/29/21 Stop Date: 04/28/21 Status: Ordered lidocaine 5% topical film 1 film, Topically, Daily, knee pain, # 30 film, 0 Refills, Maintenance, 03/29/21 14:22:00 EST, Patch, [facility] [id number], Partial fill upon patient request if the prescription is for a schedule II opioid drug., 1 film Topic... Start Date: 03/29/21 Stop Date: 04/28/21 Status: Ordered loratadine 10 mg oral tablet 10 mg, 1, tablet, By Mouth, Daily, # 30 tablet, Refills 0, Tot. Refills 0, Maintenance, 03/29/21 14:21:00 EST, Route to Pharmacy Electronically, [facility] [id number], Partial fill upon patient request if the prescription is f... Start Date: 03/29/21 Stop Date: 04/28/21 Status: Ordered losartan 25 mg oral tablet 25 mg, 1, tablet, By Mouth, Daily, Hold if SBP<100mm Hg, # 30 tablet, Refills 0, Tot. Refills 0,Maintenance, 03/29/21 14:21:00 EST, Route to Pharmacy Electronically, [facility] [id number], Partial fill upon patient request if... Start Date: 03/29/21 Stop Date: 04/28/21 Status: Ordered MetFORMIN (Eqv-Glucophage XR) 500 mg oral tablet, extended release 1 tablet, By Mouth, Daily, for 30 days, # 30 tablet, 11 Refills, Physician Stop 03/24/22 14:21:00 EST, 03/29/21 14:21:00 EST, [facility], [facility] [id number], 178, cm, 03/29/21 9:32:00EST, Height, 152.6, kg, 03/18/21 22:03:00 EST, Dry... Start Date: 03/29/21 Stop Date: 03/24/22 Status: Ordered OXcarbazepine 300 mg oral tablet 300 mg, 1, tablet, By Mouth, 2 times a day, # 60 tablet, Refills 0, Tot. Refills 0, Maintenance, 03/29/21 14:21:00 EST, Route to Pharmacy Electronically, [facility] [id number], Partial fill upon patient request if the [...] 03/29/21 14:25:00 EST, Route to Pharmacy Electronically, [facility] [id number], Partialfill upon patient request if the prescription is fo... Start Date: 03/29/21 Stop Date: 04/28/21 Status: Ordered risperiDONE 3 mg oral tablet 3 mg, 1, tablet, By Mouth, Daily at bedtime, # 30 tablet, Refills 0, Tot. Refills 0, Maintenance, 03/29/21 14:26:00 EST, Route to Pharmacy Electronically, [facility], [facility] [id number], Partial fill upon patient request if the [...] sleep apnea, Com plex sleep apnea(Confirmed) Active N/[facility]/Rail Car Repair Carman-Remedios MárquezNmisnev-[phone]/Health senior living, active care coordination(Confirmed) Active Severe obesity(Confirmed) Active [...]
--- OUTSIDE RECORDS SUMMARY | 2022-08-02 17:46 | XMS_ITS | Continuity of Care Document ---
Author Name Unknown Organization [facility] Adult Medicine Address [address] [place] [address]- Care Team Providers Care Category Analyst Name Role Phone Lamine Lin MD Primary Care Physician [phone] Encounter [facility] [place] [id number] Date(s): 05/12/21 - 07/28/21 [facility] [address] [place] [address]- Attending Physician: Lamine Lin MD Admitting Physician: [...] 06/09/21 10:32:00 EDT, Route to Pharmacy Electronically, [facility] [place], [place] - [id number], Partial fill upon patient request if... Start Date: 06/09/21 Stop Date: 08/08/21 Status: Ordered benztropine 0.5 mg oral tablet 0.5 mg, 1, tablet, By Mouth, 2 times a day, # 60 tablet, Refills 1, Tot. Refills 1, Maintenance, 06/09/21 10:36:00 EDT, Route to Pharmacy Electronically, [facility], [place] - [id number], Partial fill upon patient request if the prescrip... Start Date: 06/09/21 Status: Ordered docusate-senna 50 mg-8.6 mg oral capsule 2 capsule, By Mouth, 2 times a day, # 120 capsule, 1 Refills, Maintenance, 06/09/21 10:36:00 EDT, Capsule, [facility], [place] - [id number], Partial fill upon patient request if the prescription is for a schedule II opioid drug., 2 capsu... Start Date: 06/09/21 Status: Ordered gabapentin 600 mg oral tablet 1 tablet = 600 mg, By Mouth, 3 times a day, # 90 tablet, 1 Refills, Maintenance, 06/09/21 10:33:00 EDT, Tablet, [facility], [place] - [id number], Partial fill upon patient request if the prescription is for a schedule II opioid drug., 17... Start Date: 06/09/21 Stop Date: 08/08/21 Status: Ordered hydrOXYzine pamoate 50 mg oral capsule = 50 mg, By Mouth, Every 6 hours, PRN Anxiety, # 60 capsule, 1 Refills, Maintenance, 06/09/21 10:36:00 EDT, Capsule, [facility], [place] - [id number], Partial fill upon patient request if the prescription is for a schedule II opioid drug... Start Date: 06/09/21 Status: Ordered lamotrigine 25 mg oral tablet 25 mg, 1, tablet, By Mouth, Daily, # 30 tablet, Refills 1, Tot. Refills 1, Maintenance, 06/09/21 10:36:00 EDT, Route to Pharmacy Electronically, [facility] [place] - [id number], Partial fill upon patient request if the prescription is f... Start Date: 06/09/21 Status: Ordered loratadine 10 mg oral tablet 10 mg, 1, tablet, By Mouth, Daily, # 30 tablet, Refills 1, Tot. Refills 1, Maintenance, 06/09/21 10:33:00 EDT, Route to Pharmacy Electronically, [facility] [id number], Partial fill upon patient request if the prescription is f... Start Date: 06/09/21 Stop Date: 08/08/21 Status: Ordered losartan 25 mg oral tablet 25 mg, 1, tablet, By Mouth, Daily, Hold if SBP<100mm Hg, # 30 tablet, Refills 1, Tot. Refills 1,Maintenance, 06/09/21 10:33:00 EDT, Route to Pharmacy Electronically, [facility] [id number], Partial fill upon patient request if... Start Date: 06/09/21 Stop Date: 08/08/21 Status: Ordered MetFORMIN (Eqv-Glucophage XR) 500 mg oral tablet, extended release 1 tablet, By Mouth, Daily, for 30 days, # 30 tablet, 1 Refills, Physician Stop 08/08/21 10:34:00 EDT, 06/09/21 10:34:00 EDT, [facility] [id number], 178, cm, 06/09/21 9:53:00 EDT, Height, 140, kg, 05/17/21 19:30:00 EDT, Dry Weight Start Date: 06/09/21 Stop Date: 08/08/21 Status: Ordered Nicotine 2 mg gum = 2 mg, Chew, Every 2 hours, PRN Other, cigarette craving, # 40 each, 0 Refills, Maintenance, 06/09/21 10:36:00 EDT, Gum, [facility] [id number], Partial fill upon patient request if the prescription is for a schedule II opioid... Start Date: 06/09/21 Status: Ordered OXcarbazepine 150 mg oral tablet 150 mg, 1, tablet, By Mouth, 2 times a day, # 60 tablet, Refills 1, Tot. Refills 1, Maintenance, 06/09/21 10:34:00 EDT, Route to Pharmacy Electronically, [facility] [id number], Partial fill upon patient request if the [...] 06/09/21 10:35:00 EDT, Route to Pharmacy Electronically, [facility] [id number], Partial fill upon patient request if the prescri... Start Date: 06/09/21 Stop Date: 08/08/21 Status: Ordered traZODone 50 mg oral tablet 50 mg, 1, tablet, By Mouth, Daily at bedtime, # 30 tablet, Refills 1, Tot. Refills 1, Maintenance, 06/09/21 10:36:00 EDT, Route to Pharmacy Electronically, [facility] [id number], Partial fill upon patient request if the [...] sleep apnea, Com plex sleep apnea(Confirmed) Active [facility]/Cdl Program Coordinator-Remedios Anstlzl-[phone]/Health half-way, active care coordination(Confirmed) Active Severe obesity(Confirmed) [...]
[2022-08-02 18:00] VITALS: BP 157/80; PULSE 105; TEMP 36.4; O2SAT 100
--- NOTE | 2022-08-02 18:17 | PC.ADMIT ---
Stef is a 32-year-old male admitted from [facility] ED to M3 08/02/22 at 1747, CV signed. Pt aso signed a 3-day but he was informed it wouldn't go into effect until provider approves CV. Psych dx: schizoaffective disorder, unspecified schizophrenia and other psychotic disorder. Medical hx: HTN, Type 2 diabetes, and is on ABX for UTI. Pt presented to [facility] ED for increased depression and suicidal thoughts. Pt has been noncompliant with meds and refusing to attend to ADL's. Pt is pleasant but flat and guarded. RN performed skin check, pt has scabbed blisters on heels of his feet but denies discomfort. Pt denies SI/HI/AH/VH but will reach out to staff if thoughts occur. Pt requested to be discharged tonight but understood he will be staying at least until tomorrow.
[2022-08-02 19:55] VITALS: BP 143/78; PULSE 115; RESP 18; TEMP 36.7; O2SAT 96
[2022-08-02] MEDS: traZODone HCL 50 MG TABLET 150 MG PO (21:30)
[2022-08-02] MEDS: risperiDONE 2 MG TABLET PO (21:30)
[2022-08-02] MEDS: Prazosin HCL 1 MG CAPSULE 2 MG PO (21:31)
[2022-08-02] MEDS: Gabapentin 600 MG TABLET PO (21:31)
[2022-08-02] MEDS: Benztropine Mesylate 1 MG TABLET PO (21:31)
[2022-08-02] MEDS: Amoxicillin/Potassium Clav 875 MG TABLET PO (21:31)
[2022-08-03] MEDS: Omeprazole 20 MG CAPSULE.DR PO (06:54)
[2022-08-03 08:55] VITALS: BP 135/60; PULSE 113; RESP 20; TEMP 36.8; O2SAT 99
[2022-08-03] MEDS: Ferrous Sulfate 324 MG TABLET.DR PO (08:56)
[2022-08-03] MEDS: Venlafaxine HCl ER 75 MG CAP.ER.24H 225 MG PO (08:56)
[2022-08-03] MEDS: Folic Acid 1 MG TABLET PO (08:56)
[2022-08-03] MEDS: Multivitamin TABLET 1 TAB PO (08:56)
[2022-08-03] MEDS: Gabapentin 600 MG TABLET PO ×3 (08:57→22:42)
[2022-08-03] MEDS: Milk of Magnesia 30 ML ORAL.SUSP PO (08:57)
[2022-08-03] MEDS: Loratadine 10 MG TABLET PO (08:57)
[2022-08-03] MEDS: Benztropine Mesylate 1 MG TABLET PO ×2 (08:57→22:42)
[2022-08-03] MEDS: Docusate Sodium 100 MG CAPSULE PO (08:57)
[2022-08-03] MEDS: Amoxicillin/Potassium Clav 875 MG TABLET PO (08:57)
--- NOTE | 2022-08-03 09:30 | P.HPPS_ITS ---
HPI Date of Service: 08/04/22 Chief Complaint: Schizoeffective disorder Sources of Information: patient interviewed, chart reviewed and crisis/core team assessment reviewed HPI Subjective Notes: Pritchard Warning (given and shows understanding) and Conditional Voluntary Narrative: Mr. Jarrett is a 32 year-old male with hx of schizoaffective disorder. He self presented to [facility] ED reporting vague suicidal ideation. He had presented to [facility] ED days prior with similar presentation. In the ED, utox is negative. On the unit, pt presents as calm, pleasant. He reports he came to the hospital because my medications were not working. When asked about how he wants medications to help his mood, pt states I don't know. He denies suicidal or homicidal ideation. He denies visual or auditory hallucinations. He also reports he was not taking his medications. He reports sleeping and eating well. He appears internally preoccupied. No overt guarded or paranoid but some suspiciousness. Past Psychiatric History: Inpatient: several in the past OP: [facility]. He does have ACCS team Past medication trials: paliperidone, risperidone, effexor Hx of suicide attempts: pt denies. Medical Evaluation Reviewed: Yes Note A1C 4.7% PMF Social History: Pt lives alone in apartment in [place]. Not . No children. Not currently working. Substance History: None Trauma History: Denies Diagnostics Vital Signs (24Hr): Vital Signs - 24 hr 08/02/22 18:00 08/02/22 19:55 08/03/22 08:55 Temperature 97.6 F 98.0 F 98.3 F Pulse Rate 105 H 115 H 113 H Respiratory Rate 18 20 Blood Pressure 157/80 H 143/78 H 135/60 Pulse Oximetry 100 96 99 Oxygen Delivery Method Room Air Room Air Room Air Labs 08/03/22 09:10 Meds/Allergies Meds Home Medications Medication Instructions Recorded Confirmed Type amoxicillin-pot clavulanate 875 mg PO BID 08/02/22 08/02/22 History benztropine 1 mg tablet 1 mg PO BID 08/02/22 08/02/22 History docusate sodium 100 mg capsule 100 mg PO DAILY 08/02/22 08/02/22 History ferrous fumarate 324 mg (106 mg 324 mg PO Q OTHER DAY 08/02/22 08/02/22 History iron) tablet folic acid 1 mg tablet 1 mg PO DAILY 08/02/22 08/02/22 History gabapentin 100 mg capsule 100 mg PO TID 08/02/22 08/02/22 History gabapentin 600 mg tablet 600 mg PO TID 08/02/22 08/02/22 History loratadine 10 mg tablet 10 mg PO DAILY 08/02/22 08/02/22 History metformin 500 mg tablet,extended 500 mg PO DAILY 08/02/22 08/02/22 History release 24 hr multivitamin with folic acid 400 1 tab PO DAILY 08/02/22 08/02/22 History mcg tablet (Daily-Usha (with folic acid)) pantoprazole 40 mg tablet,delayed 40 mg PO DAILY 08/02/22 08/02/22 History release prazosin 2 mg capsule 2 mg PO BEDTIME 08/02/22 08/02/22 History risperidone 0.25 mg tablet 2 mg PO BEDTIME 08/02/22 08/02/22 History trazodone 150 mg tablet 150 mg PO BEDTIME 08/02/22 08/02/22 History venlafaxine 75 mg capsule,extended 225 mg PO DAILY 08/02/22 08/02/22 History release 24 hr Allergies Allergies Allergy/AdvReac Type Severity Reaction Status Date / Time lisinopril Allergy Unknown Cough Unverified 08/02/22 18:00 Mental Status Exam Mental Status Exam Narrative: Appearance: casually groomed, good hygiene, in NAD Behavior: cooperative PSychomotor: no agitation or retardation noted Speech: clear, slight delay in response rate, spontaneous TP: poverty of thought TC: help with meds but denies any symptoms. Mood: good Affect: constricted, but congruent SI: denies HI: denies VH/AH: denies, does appear internally preoccupied Delusions: no overt delusional content noted or reported Insight/judgment: poor x 2. Memory/cog: alert, oriented x 3. very concrete thinking Assessment & Plan Assessment & Plan (1) Schizoaffective disorder: Status: Acute Code(s): F25.9 - Schizoaffective disorder, unspecified Plan Mr. Jarrett is a 32 year-old male with hx of schizoaffective disorder. He self presented to [facility] ED reporting vague SI. On the unit,he denies SI/HI. He reports he wanted medication adjustment because medication were not working but also reports he was not taking them. Pt unable to explain in what way he wants medications to help him. He denies VH/AH but does appear internally preoccupied. We discussed risks, benefits and alternative treatment options. Pt was restarted on venlafaxine 225mg po daily- which he reports not taking, will lower this medication to avoid hypertensive crisis, also as it may worsen his psychosis. Otherwide he appears stable, pending collateral information from [facility] and [facility]. PLAN 1. Admit to M3, CV, 15 minutes checks for safety. 2. continue risperidone 2mg po qhs per pt request- he declined MENDOSA invega as he used to be 3. lowered effexor to 75mg po daily 4. Obtain collateral information 5. Aftercare planning. Patient educated on: diagnosis Reason for continued inpatient stay Substantial Risk for: inability to function Statement Statement: I have reviewed the history and physical and performed a pertinent examination on my patient. No changes have occurred unless specified. If the History and Physical was not performed prior to admission, the Hospitalist's service will be consulted for completing the admission physical. Time Spent With Patient Time: Total time managing care of this patient today ____ minutes.
[2022-08-03 09:39] LABS: Estimated Average Glucose 88 mg/dL; Hemoglobin A1c % 4.7 %
[2022-08-03 09:49] LABS: Alanine Aminotransferase 10 U/L (0-40); Albumin Level 4.2 g/dL (3.5-5.0); Alkaline Phosphatase 69 U/L (39-117); Anion Gap 13 (12-20); Aspartate Amino Transferase 17 U/L (5-37); Bilirubin Total 0.7 mg/dL (0.0-1.0); Blood Urea Nitrogen 8 mg/dL (9-16); Calcium 10.2 mg/dL (8.4-10.2); Carbon Dioxide 30 mmol/L (22-29); Chloride 104 mmol/L (96-108); Cholesterol 153 mg/dL; Estimated Glomerular Filt Rate > 60; Glucose Fasting 84 mg/dL (60-99); HDL Cholesterol 40 mg/dL; LDL Cholesterol Calculated 98 mg/dl; Potassium 3.6 mmol/L (3.3-5.1); Sodium 143 mmol/L (135-145); Total Protein 7.9 g/dL (6.5-8.0); Triglycerides 75 mg/dL
[2022-08-03 10:04] LABS: Thyroid Stimulating Hormone 0.72 uIU/mL (0.32-4.0)
--- NOTE | 2022-08-03 11:25 | HO.PM.IMCN ---
History of Present Illness Data of Consult Service Date: 08/03/22 Primary Care Provider: Unknown Physician HPI Reason for consult: Admission H&P Pt is a 32-year-old male with a PMH significant for?[id number]-olfblwdjl diabetes type 2 and schizophrenia who is admitted to psychiatry unit for worsening depression with SI without a specific plan. Medical consult for admission H&P. ?Patient has no acute medical complaints at this time. Denies headache, changes to vision. No fever, chills, nausea, vomiting, diarrhea, abdominal pain. No chest pain/pressure, palpitations. Denies shortness of breath. Labs reviewed, unremarkable. Review of Systems Review of Systems: Patient has no acute medical complaints at this time Yes all other systems are reviewed and are negative PMFSH Social History Household Members: None Housing: House Patient Tobacco Use Status: Never used Tobacco Use of substances other than those prescribed or required for medical reasons: No Currently Displaying Signs/Symptoms of Drug Intoxication Withdrawal: No Have you been hit, kicked, punched, or otherwise hurt by someone within the past year? If so, by whom?: No Do you feel safe in your current relationship?: No Current Relationship Is there a partner from a previous relationship who is making you feel unsafe now?: No Are you made to feel afraid or neglected: No Advance Directives: No Advance Directives Information Provided: No Do you have thoughts of harming others: None Do you have a plan to hurt others: No Plan Recently lost weight without trying: No Nutrition Risks: No Nutritional Risk Poor oral hygiene: No Meds Allergies Allergy/AdvReac Type Severity Reaction Status Date / Time lisinopril Allergy Unknown Cough Unverified 08/02/22 18:00 Active Medications: Current Medications Acetaminophen (Acetaminophen 325 Mg Tablet) 650 mg PO Q6H PRN PRN Reason: Headache/Pain Mild Scale (1-3) Al Hydroxide/Mg Hydroxide (Magnesium Hydrox/Alum Hydrox 30 Ml Oral.Susp) 30 ml PO Q6H PRN PRN Reason: Heartburn/Nausea Amoxicillin/Clavulanate Potassium (Amoxicillin/Potassium Clav 875 Mg Tablet) 875 mg PO BID [facility] Last Admin: 08/03/22 08:57 Dose: 875 mg Benztropine Mesylate (Benztropine Mesylate 1 Mg Tablet) 1 mg PO BID [facility] Last Admin: 06/14/23 08:57 Dose: 1 mg Docusate Sodium (Docusate Sodium 100 Mg Capsule) 100 mg PO DAILY [facility] Last Admin: 08/03/22 08:57 Dose: 100 mg Ferrous Sulfate (Ferrous Sulfate 324 Mg Tablet.) 324 mg PO Q2D@0900 [facility] Last Admin: 08/03/22 08:56 Dose: 324 mg Folic Acid (Folic Acid 1 Mg Tablet) 1 mg PO DAILY [facility] Last Admin: 08/03/22 08:56 Dose: 1 mg Gabapentin (Gabapentin 600 Mg Tablet) 600 mg PO TID [facility] Last Admin: 08/03/22 08:57 Dose: 600 mg Hydroxyzine HCl (Hydroxyzine Hcl 25 Mg Tablet) 25 mg PO Q6H PRN PRN Reason: Anxiety Loratadine (Loratadine 10 Mg Tablet) 10 mg PO DAILY [facility] Last Admin: 08/03/22 08:57 Dose: 10 mg Magnesium Hydroxide (Milk Of Magnesia 30 Ml Oral.Susp) 30 ml PO DAILY PRN PRN Reason: Constipation Last Admin: 08/03/22 08:57 Dose: 30 ml Multivitamins/Vitamin C (Multivitamin Tablet) 1 tab PO DAILY [facility] Last Admin: 08/03/22 08:56 Dose: 1 tab Omeprazole (Omeprazole 20 Mg Capsule.) 20 mg PO DAILY@0630 [facility] Last Admin: 08/03/22 06:54 Dose: 20 mg Prazosin HCl (Prazosin Hcl 1 Mg Capsule) 2 mg PO BEDTIME [facility]; Protocol Last Admin: 08/02/22 21:31 Dose: 2 mg Risperidone (Risperidone 2 Mg Tablet) 2 mg PO BEDTIME [facility] Last Admin: 08/02/22 21:30 Dose: 2 mg Trazodone HCl (Trazodone Hcl 50 Mg Tablet) 50 mg PO BEDTIME MRX1 PRN PRN Reason: Insomnia Trazodone HCl (Trazodone Hcl 50 Mg Tablet) 150 mg PO BEDTIME [facility] Last Admin: 08/02/22 21:30 Dose: 150 mg Venlafaxine HCl (Venlafaxine Hcl Er 75 Mg Cap.Er.24h) 225 mg PO DAILY [facility] Last Admin: 08/03/22 08:56 Dose: 225 mg Home Medications Medication Instructions Recorded Confirmed Last Taken Type amoxicillin-pot clavulanate 875 mg PO BID 08/02/22 08/02/22 08/02/22 07:01 History benztropine 1 mg tablet 1 mg PO BID 08/02/22 08/02/22 08/02/22 08:58 History docusate sodium 100 mg capsule 100 mg PO DAILY 08/02/22 08/02/22 08/02/22 08:58 History ferrous fumarate 324 mg (106 mg 324 mg PO Q OTHER DAY 08/02/22 08/02/22 07/31/22 18:08 History iron) tablet folic acid 1 mg tablet 1 mg PO DAILY 08/02/22 08/02/22 08/02/22 08:58 History gabapentin 100 mg capsule 100 mg PO TID 08/02/22 08/02/22 08/02/22 08:58 History gabapentin 600 mg tablet 600 mg PO TID 08/02/22 08/02/22 08/02/22 08:58 History loratadine 10 mg tablet 10 mg PO DAILY 08/02/22 08/02/22 08/02/22 08:58 History metformin 500 mg tablet,extended 500 mg PO DAILY 08/02/22 08/02/22 07/30/22 16:37 History release 24 hr multivitamin with folic acid 400 1 tab PO DAILY 08/02/22 08/02/22 08/02/22 08:58 History mcg tablet (Daily-Usha (with folic acid)) pantoprazole 40 mg tablet,delayed 40 mg PO DAILY 08/02/22 08/02/22 08/02/22 05:26 History release prazosin 2 mg capsule 2 mg PO BEDTIME 08/02/22 08/02/22 08/01/22 21:31 History risperidone 0.25 mg tablet 2 mg PO BEDTIME 08/02/22 08/02/22 08/02/22 08:58 History trazodone 150 mg tablet 150 mg PO BEDTIME 08/02/22 08/02/22 08/01/22 21:31 History venlafaxine 75 mg capsule,extended 225 mg PO DAILY 08/02/22 08/02/22 08/02/22 09:12 History release 24 hr Physical Exam Vital Signs and Narrative: Vital Signs: Last Vital Signs Temp 98.3 F 08/03/22 08:55 Pulse 113 H 08/03/22 08:55 Resp 20 08/03/22 08:55 BP 135/60 08/03/22 08:55 Pulse Ox 99 08/03/22 08:55 O2 Del Method Room Air 08/03/22 08:55 Constitutional: Alert, in no acute distress. Mental Status: Oriented to person, place and time. Eyes: Pupils are equal, round, and reactive to light. Ear, Nose, and Throat: Oropharynx clear, mucous membranes moist. Ears and nose without deformities. Trachea midline. Respiratory: Clear to auscultation bilaterally. No wheezing, rales, or rhonchi. Cardiovascular: S1, S2 regular. No murmurs, rubs, or gallops. Gastrointestinal: Abdomen soft, non-tender, non-distended. Normal bowel sounds. Neurologic: Cranial nerves II-XII are grossly intact bilaterally. No focal neurological deficits. Moves all extremities spontaneously. Skin: No rashes or lesions noted. Musculoskeletal: No cyanosis or clubbing. Extremities: No edema. Psychiatric: Normal mood and affect. Results Labs 08/03/22 09:10 Labs: Laboratory Results - last 24 hr 08/03/22 08/03/22 09:10 09:10 Anion Gap 13 Estim Creat Clear Calc TNP Estimated GFR > 60 Fasting Glucose 84 Estimat Average Glucose 88 Hemoglobin A1c % 4.7 Calcium 10.2 Total Bilirubin 0.7 AST 17 ALT 10 Alkaline Phosphatase 69 Total Protein 7.9 Albumin 4.2 Triglycerides 75 Cholesterol 153 LDL Cholesterol, Calc 98 HDL Cholesterol 40 TSH 0.72 Assessment and Plan (1) Routine history and physical examination of adult: Status: Acute Plan Pt is a 32-year-old male with a PMH significant for?dmm-ttirkfl-llsrwswit diabetes type 2 and schizophrenia who is admitted to M[facility] psychiatry unit for worsening depression with SI without a specific plan. Medical consult for admission H&P. ?Patient has no acute medical complaints at this time. Mood disorder Plan as per Psychiatry Htz-wnrvjww-zohcnvths diabetes Can continue metformin Diabetic diet, place on sliding scale insulin Thank you for allowing us to participate in the care of this patient. Signing off at this time. Please let us know if there are any acute complaints or questions. Time Spent With Patient Time: Total time managing care of this patient today ____ minutes.
[2022-08-03 13:16] LABS: Glucose, Whole Blood 69 mg/dL (60-115)
[2022-08-03 22:40] VITALS: BP 134/76; PULSE 80; RESP 18; TEMP 36.7; O2SAT 98
[2022-08-03] MEDS: traZODone HCL 50 MG TABLET 150 MG PO (22:41)
[2022-08-03] MEDS: risperiDONE 2 MG TABLET PO (22:41)
[2022-08-03] MEDS: Prazosin HCL 1 MG CAPSULE 2 MG PO (22:42)
[2022-08-04 03:53] LABS: Glucose, Whole Blood 100 mg/dL (60-115)
[2022-08-04] MEDS: Venlafaxine HCl ER 75 MG CAP.ER.24H PO (09:23)
[2022-08-04] MEDS: Docusate Sodium 100 MG CAPSULE PO (09:23)
[2022-08-04 09:24] LABS: Glucose, Whole Blood 85 mg/dL (60-115)
[2022-08-04] MEDS: Benztropine Mesylate 1 MG TABLET PO ×2 (09:24→22:28)
[2022-08-04] MEDS: Loratadine 10 MG TABLET PO (09:24)
[2022-08-04] MEDS: Omeprazole 20 MG CAPSULE.DR PO (09:24)
[2022-08-04] MEDS: Multivitamin TABLET 1 TAB PO (09:24)
[2022-08-04] MEDS: Gabapentin 600 MG TABLET PO ×3 (09:24→22:28)
[2022-08-04] MEDS: Folic Acid 1 MG TABLET PO (09:24)
[2022-08-04 09:25] VITALS: BP 134/82; PULSE 105; RESP 18; TEMP 36.6; O2SAT 98
--- NOTE | 2022-08-04 10:36 | HO.PSYCHPN ---
Subjective Subjective Date of Service: 08/04/22 Reason For Visit: Schizoeffective disorder Subjective Notes: Conditional Voluntary and 3 Day Interim History: Pt with slightly brighter, more talkative than yesterday. He reports he feels better physically. He reports feeling tired and with muscle aches which reports less today. He denies SI/HI. He denies VH/AH but does report in the past he has heard voices. He reports he was tossing and turning last night with excessive sweating which could have been related to high dose of venlafaxine 225mg which pt reports had not been taking for several weeks. Medication Compliance: Yes Side effects from medications: No Attending Groups: No Review of Systems Review of Systems Patient has no acute medical complaints at this time Yes all other systems are reviewed and are negative Mental Status Exam Mental Status Exam Narrative: Appearance: casually groomed, good hygiene, in NAD Behavior: cooperative PSychomotor: no agitation or retardation noted Speech: clear, slight delay in response rate, spontaneous TP: poverty of thought TC: help with meds but denies any symptoms. Mood: good Affect: constricted, but congruent SI: denies HI: denies VH/AH: denies, does appear internally preoccupied Delusions: no overt delusional content noted or reported Insight/judgment: poor x 2. Memory/cog: alert, oriented x 3. very concrete thinking Diagnostics Vital Signs (24Hr): Vital Signs - 24 hr 08/03/22 22:40 08/04/22 09:25 Temperature 98.0 F 97.8 F Pulse Rate 80 105 H Respiratory Rate 18 18 Blood Pressure 134/76 134/82 Pulse Oximetry 98 98 Oxygen Delivery Method Room Air Room Air Labs 08/03/22 09:10 Labs: Laboratory Results - last 48 hr 08/03/22 08/03/22 08/03/22 09:10 09:10 13:11 Sodium 143 Potassium 3.6 Chloride 104 Carbon Dioxide 30 H Anion Gap 13 BUN 8 L Creatinine 0.82 Estim Creat Clear Calc TNP Estimated GFR > 60 POC Glucose 69 Fasting Glucose 84 Estimat Average Glucose 88 Hemoglobin A1c % 4.7 Calcium 10.2 Total Bilirubin 0.7 AST 17 ALT 10 Alkaline Phosphatase 69 Total Protein 7.9 Albumin 4.2 Triglycerides 75 Cholesterol 153 LDL Cholesterol, Calc 98 HDL Cholesterol 40 TSH 0.72 08/04/22 08/04/22 03:49 09:04 Sodium Potassium Chloride Carbon Dioxide Anion Gap BUN Creatinine Estim Creat Clear Calc Estimated GFR POC Glucose 100 85 Fasting Glucose Estimat Average Glucose Hemoglobin A1c % Calcium Total Bilirubin AST ALT Alkaline Phosphatase Total Protein Albumin Triglycerides Cholesterol LDL Cholesterol, Calc HDL Cholesterol TSH Medications Medications Current Medications Acetaminophen (Acetaminophen 325 Mg Tablet) 650 mg PO Q6H PRN PRN Reason: Headache/Pain Mild Scale (1-3) Al Hydroxide/Mg Hydroxide (Magnesium Hydrox/Alum Hydrox 30 Ml Oral.Susp) 30 ml PO Q6H PRN PRN Reason: Heartburn/Nausea Benztropine Mesylate (Benztropine Mesylate 1 Mg Tablet) 1 mg PO BID [facility] Last Admin: 08/04/22 09:24 Dose: 1 mg Docusate Sodium (Docusate Sodium 100 Mg Capsule) 100 mg PO DAILY [facility] Last Admin: 08/04/22 09:23 Dose: 100 mg Ferrous Sulfate (Ferrous Sulfate 324 Mg Tablet.) 324 mg PO Q2D@0900 [facility] Last Admin: 08/03/22 08:56 Dose: 324 mg Folic Acid (Folic Acid 1 Mg Tablet) 1 mg PO DAILY [facility] Last Admin: 08/04/22 09:24 Dose: 1 mg Gabapentin (Gabapentin 600 Mg Tablet) 600 mg PO TID [facility] Last Admin: 08/04/22 09:24 Dose: 600 mg Hydroxyzine HCl (Hydroxyzine Hcl 25 Mg Tablet) 25 mg PO Q6H PRN PRN Reason: Anxiety Loratadine (Loratadine 10 Mg Tablet) 10 mg PO DAILY [facility] Last Admin: 08/04/22 09:24 Dose: 10 mg Magnesium Hydroxide (Milk Of Magnesia 30 Ml Oral.Susp) 30 ml PO DAILY PRN PRN Reason: Constipation Last Admin: 08/03/22 08:57 Dose: 30 ml Multivitamins/Vitamin C (Multivitamin Tablet) 1 tab PO DAILY [facility] Last Admin: 08/04/22 09:24 Dose: 1 tab Omeprazole (Omeprazole 20 Mg Capsule.) 20 mg PO DAILY@0630 [facility] Last Admin: 08/04/22 09:24 Dose: 20 mg Prazosin HCl (Prazosin Hcl 1 Mg Capsule) 2 mg PO BEDTIME [facility]; Protocol Last Admin: 08/03/22 22:42 Dose: 2 mg Risperidone (Risperidone 2 Mg Tablet) 2 mg PO BEDTIME [facility] Last Admin: 06/14/23 22:41 Dose: 2 mg Trazodone HCl (Trazodone Hcl 50 Mg Tablet) 50 mg PO BEDTIME PRN PRN Reason: Insomnia Trazodone HCl (Trazodone Hcl 100 Mg Tablet) 100 mg PO BEDTIME [facility] Venlafaxine HCl (Venlafaxine Hcl Er 75 Mg Cap.Er.24h) 75 mg PO DAILY [facility] Last Admin: 08/04/22 09:23 Dose: 75 mg Allergies Allergies Allergy/AdvReac Type Severity Reaction Status Date / Time lisinopril Allergy Unknown Cough Unverified 08/02/22 18:00 Assessment & Plan Assessment & Plan (1) Schizoaffective disorder: Status: Acute Code(s): F25.9 - Schizoaffective disorder, unspecified Plan Mr. Jarrett is a 32 year-old male with hx of schizoaffective disorder. He self presented to [facility] ED reporting vague SI. On the unit,he denies SI/HI. He reports he wanted medication adjustment because medication were not working but also reports he was not taking them. Pt unable to explain in what way he wants medications to help him. He denies VH/AH but does appear internally preoccupied. We discussed risks, benefits and alternative treatment options. Pt was restarted on venlafaxine 225mg po daily- which he reports not taking, will lower this medication to avoid hypertensive crisis, also as it may worsen his psychosis. Otherwise, he appears stable, pending collateral information from [facility] and [facility]. PLAN 1. Admit to M3, CV, 15 minutes checks for safety. 2. continue risperidone 2mg po qhs per pt request- he declined MENDOSA invega as he used to be 3. lowered effexor to 75mg po daily 4. Obtain collateral information 5. Aftercare planning. 08/04 continue current tx. Reason for continued inpatient stay Substantial Risk for: inability to function Time Spent With Patient Time: Total time managing care of this patient today ____ minutes.
[2022-08-04] MEDS: Acetaminophen 325 MG TABLET 650 MG PO (14:04)
[2022-08-04 22:25] VITALS: BP 144/91; PULSE 92; RESP 18; TEMP 36.6; O2SAT 97
[2022-08-04] MEDS: Prazosin HCL 1 MG CAPSULE 2 MG PO (22:28)
[2022-08-04] MEDS: risperiDONE 2 MG TABLET PO (22:29)
[2022-08-04] MEDS: traZODone HCL 100 MG TABLET PO (22:29)
[2022-08-05 08:45] VITALS: BP 126/74; PULSE 106; TEMP 36.6; O2SAT 97
[2022-08-05] MEDS: Docusate Sodium 100 MG CAPSULE PO (08:51)
[2022-08-05] MEDS: Gabapentin 600 MG TABLET PO ×3 (08:51→22:40)
[2022-08-05] MEDS: Multivitamin TABLET 1 TAB PO (08:51)
[2022-08-05] MEDS: Omeprazole 20 MG CAPSULE.DR PO (08:52)
[2022-08-05] MEDS: Folic Acid 1 MG TABLET PO (08:52)
[2022-08-05] MEDS: Venlafaxine HCl ER 75 MG CAP.ER.24H PO (08:52)
[2022-08-05] MEDS: Ferrous Sulfate 324 MG TABLET.DR PO (08:52)
[2022-08-05] MEDS: Benztropine Mesylate 1 MG TABLET PO ×2 (08:52→22:40)
[2022-08-05] MEDS: Loratadine 10 MG TABLET PO (08:53)
[2022-08-05 10:42] LABS: Appearance Urine Cloudy; Color Urine Dark Yellow; Glucose Urine UA Negative (Negative); Leukocyte Esterase Urine Moderate (2+) (Negative); Nitrite Urine Negative (Negative); PH 5.5 (5.0-9.0); Specific Gravity - Urine >= 1.030 (1.005-1.025); UMIC TRIGGER UACC YES; Urine Blood Negative (Negative); Urine Ketones 15 mg/dL (Negative); Urine Protein 100 (2+) mg/dL (Neg-Trace)
[2022-08-05 10:54] LABS: Bacteria Urine None Seen (None Seen); UACC Culture Trigger YES; WBC Urine >50 /HPF (0-5)
--- NOTE | 2022-08-05 12:42 | HO.PSYCHPN ---
Subjective Subjective Date of Service: 08/05/22 Reason For Visit: Schizoeffective disorder Interim History: calm, cooperative. meds reviewed, pt avers he is on his proper regimen. trazodone was decreased from 150 to 100 last night. denies any frequency, dysuria. denies there is anything else we can do for him at the moment. per staff, 3-day up monday. anxious, isolative, withdrawn. trazodone was decreased from 150 mg to 100 mg last night. attended one group yesterday. Mental Status Exam Mental Status Exam Narrative: Appearance: casually groomed, good hygiene, in NAD Behavior: cooperative Psychomotor: mild retardation noted Speech: clear, slight delay in response rate, spontaneous TP: poverty of thought TC: help with meds but denies any symptoms. Mood: so-so Affect: constricted, congruent SI: denies HI: denies VH/AH: denies, does appear internally preoccupied Delusions: no overt delusional content noted or reported Insight/judgment: poor x 2. Memory/cog: alert, oriented x 3. very concrete thinking Diagnostics Vital Signs (24Hr): Vital Signs - 24 hr 08/04/22 22:25 08/05/22 08:45 Temperature 97.9 F 97.8 F Pulse Rate 92 106 H Respiratory Rate 18 Blood Pressure 144/91 H 126/74 Pulse Oximetry 97 97 Oxygen Delivery Method Room Air Room Air Labs 08/03/22 09:10 Labs: Laboratory Results - last 48 hr 08/03/22 08/04/22 08/04/22 13:11 03:49 09:04 POC Glucose 69 100 85 Urine Color Urine Appearance Urine pH Ur Specific [place] Urine Protein Urine Glucose (UA) Urine Ketones Urine Blood Urine Nitrite Ur Leukocyte Esterase Urine RBC Urine WBC Ur Squamous Epith Cells Urine Bacteria Hyaline Casts 08/05/22 10:23 POC Glucose Urine Color Dark Yellow Urine Appearance Cloudy Urine pH 5.5 Ur Specific [place] >= 1.030 H Urine Protein 100 (2+) H Urine Glucose (UA) Negative Urine Ketones 15 Urine Blood Negative Urine Nitrite Negative Ur Leukocyte Esterase Moderate (2+) H Urine RBC 3-5 H Urine WBC >50 H Ur Squamous Epith Cells 6-10 Urine Bacteria None Seen Hyaline Casts 11-20 Medications Medications Current Medications Acetaminophen (Acetaminophen 325 Mg Tablet) 650 mg PO Q6H PRN PRN Reason: Headache/Pain Mild Scale (1-3) Last Admin: 08/04/22 14:04 Dose: 650 mg Al Hydroxide/Mg Hydroxide (Magnesium Hydrox/Alum Hydrox 30 Ml Oral.Susp) 30 ml PO Q6H PRN PRN Reason: Heartburn/Nausea Benztropine Mesylate (Benztropine Mesylate 1 Mg Tablet) 1 mg PO BID [facility] Last Admin: 08/05/22 08:52 Dose: 1 mg Docusate Sodium (Docusate Sodium 100 Mg Capsule) 100 mg PO DAILY [facility] Last Admin: 08/05/22 08:51 Dose: 100 mg Ferrous Sulfate (Ferrous Sulfate 324 Mg Tablet.) 324 mg PO Q2D@0900 [facility] Last Admin: 08/05/22 08:52 Dose: 324 mg Folic Acid (Folic Acid 1 Mg Tablet) 1 mg PO DAILY [facility] Last Admin: 08/05/22 08:52 Dose: 1 mg Gabapentin (Gabapentin 600 Mg Tablet) 600 mg PO TID [facility] Last Admin: 08/05/22 08:51 Dose: 600 mg Hydroxyzine HCl (Hydroxyzine Hcl 25 Mg Tablet) 25 mg PO Q6H PRN PRN Reason: Anxiety Loratadine (Loratadine 10 Mg Tablet) 10 mg PO DAILY [facility] Last Admin: 08/05/22 08:53 Dose: 10 mg Magnesium Hydroxide (Milk Of Magnesia 30 Ml Oral.Susp) 30 ml PO DAILY PRN PRN Reason: Constipation Last Admin: 08/03/22 08:57 Dose: 30 ml Multivitamins/Vitamin C (Multivitamin Tablet) 1 tab PO DAILY [facility] Last Admin: 08/05/22 08:51 Dose: 1 tab Omeprazole (Omeprazole 20 Mg Capsule.) 20 mg PO DAILY@0630 [facility] Last Admin: 08/05/22 08:52 Dose: 20 mg Prazosin HCl (Prazosin Hcl 1 Mg Capsule) 2 mg PO BEDTIME [facility]; Protocol Last Admin: 08/04/22 22:28 Dose: 2 mg Risperidone (Risperidone 2 Mg Tablet) 2 mg PO BEDTIME [facility] Last Admin: 08/04/22 22:29 Dose: 2 mg Trazodone HCl (Trazodone Hcl 50 Mg Tablet) 50 mg PO BEDTIME PRN PRN Reason: Insomnia Trazodone HCl (Trazodone Hcl 100 Mg Tablet) 100 mg PO BEDTIME [facility] Last Admin: 08/04/22 22:29 Dose: 100 mg Venlafaxine HCl (Venlafaxine Hcl Er 75 Mg Cap.Er.24h) 75 mg PO DAILY [facility] Last Admin: 08/05/22 08:52 Dose: 75 mg Allergies Allergies Allergy/AdvReac Type Severity Reaction Status Date / Time lisinopril Allergy Unknown Cough Unverified 08/02/22 18:00 Assessment & Plan Assessment & Plan (1) Schizoaffective disorder: Status: Acute Code(s): F25.9 - Schizoaffective disorder, unspecified Plan Mr. Jarrett is a 32 year-old male with hx of schizoaffective disorder. He self presented to [facility] ED reporting vague SI. On the unit,he denies SI/HI. He reports he wanted medication adjustment because medication were not working but also reports he was not taking them. Pt unable to explain in what way he wants medications to help him. He denies VH/AH but does appear internally preoccupied. We discussed risks, benefits and alternative treatment options. Pt was restarted on venlafaxine 225mg po daily- which he reports not taking, will lower this medication to avoid hypertensive crisis, also as it may worsen his psychosis. Otherwise, he appears stable, pending collateral information from Jarret and [facility]. PLAN 1. Admit to M3, CV, 15 minutes checks for safety. 2. continue risperidone 2mg po qhs per pt request- he declined MENDOSA invega as he used to be 3. lowered effexor to 75mg po daily 4. Obtain collateral information 5. Aftercare planning. 08/04 continue current tx. 08/05: repeat U/A contaminated. sending for another. slept well last night on reduced dose of trazodone. continue current mgmt otherwise. Reason for continued inpatient stay Substantial Risk for: inability to function and rapid decompensation Time Spent With Patient Time: Total time managing care of this patient today _25___ minutes.
[2022-08-05 22:35] VITALS: BP 134/72; PULSE 74; RESP 16; TEMP 36.6; O2SAT 98
[2022-08-05] MEDS: Prazosin HCL 1 MG CAPSULE 2 MG PO (22:40)
[2022-08-05] MEDS: risperiDONE 2 MG TABLET PO (22:40)
[2022-08-05] MEDS: traZODone HCL 100 MG TABLET PO (22:40)
[2022-08-06 08:27] LABS: Glucose, Whole Blood 77 mg/dL (60-115)
[2022-08-06 08:30] VITALS: BP 121/66; PULSE 78; RESP 18; TEMP 36.6; O2SAT 98
--- NOTE | 2022-08-06 08:49 | P.PNPSI_ITS ---
Subjective Subjective Date of Service: 08/06/22 Reason For Visit: Schizoeffective disorder Subjective Notes: Conditional Voluntary and 3 Day Healthcare Proxy: No Guardianship: No Medical Problems Affecting Mental Status: No Interim History: Patient was seen and discussed in rounds today. Records and plans were reviewed. He continues to be com, cooperative and mostly withdrawn. Eating and sleeping adequately. Very occasional group attendance. He is safe on the unit. No complaints or side effects. Continues to endorse anxiety and depression, 6 and 7 respectively. No complaints. No changes were made today Medication Compliance: Yes Side effects from medications: No Attending Groups: Intermittent Review of Systems Review of Systems Patient has no acute medical complaints at this time Yes all other systems are reviewed and are negative Mental Status Exam Mental Status Exam Narrative: In today's visit he is alert, oriented and pleasant. Soft-spoken speech. Moderate eye contact. Affect is appropriate and constricted. No acute signs of psychosis. No SI. Cognitively he has slow thought processes. Judgment is intact Diagnostics Vital Signs (24Hr): Vital Signs - 24 hr 08/05/22 22:35 Temperature 97.9 F Pulse Rate 74 Respiratory Rate 16 Blood Pressure 134/72 Pulse Oximetry 98 Oxygen Delivery Method Room Air Labs 08/03/22 09:10 Labs: Laboratory Results - last 48 hr 08/04/22 08/05/22 08/06/22 09:04 10:23 08:16 POC Glucose 85 77 Urine Color Dark Yellow Urine Appearance Cloudy Urine pH 5.5 Ur Specific [place] >= 1.030 H Urine Protein 100 (2+) H Urine Glucose (UA) Negative Urine Ketones 15 Urine Blood Negative Urine Nitrite Negative Ur Leukocyte Esterase Moderate (2+) H Urine RBC 3-5 H Urine WBC >50 H Ur Squamous Epith Cells 6-10 Urine Bacteria None Seen Hyaline Casts 11-20 Medications Medications Current Medications Acetaminophen (Acetaminophen 325 Mg Tablet) 650 mg PO Q6H PRN PRN Reason: Headache/Pain Mild Scale (1-3) Last Admin: 08/04/22 14:04 Dose: 650 mg Al Hydroxide/Mg Hydroxide (Magnesium Hydrox/Alum Hydrox 30 Ml Oral.Susp) 30 ml PO Q6H PRN PRN Reason: Heartburn/Nausea Benztropine Mesylate (Benztropine Mesylate 1 Mg Tablet) 1 mg PO BID [facility] Last Admin: 08/05/22 22:40 Dose: 1 mg Docusate Sodium (Docusate Sodium 100 Mg Capsule) 100 mg PO DAILY [facility] BEDS AT [facility] Last Admin: 08/05/22 08:51 Dose: 100 mg Ferrous Sulfate (Ferrous Sulfate 324 Mg Tablet.) 324 mg PO Q2D@0900 [facility]S [facility] 234 BEDS AT [facility] Last Admin: 08/05/22 08:52 Dose: 324 mg Folic Acid (Folic Acid 1 Mg Tablet) 1 mg PO DAILY [facility]CLUDE 234 BEDS AT [facility] Last Admin: 08/05/22 08:52 Dose: 1 mg Gabapentin (Gabapentin 600 Mg Tablet) 600 mg PO TID [facility]S [facility] 234 BEDS AT [facility] Last Admin: 08/05/22 22:40 Dose: 600 mg Hydroxyzine HCl (Hydroxyzine Hcl 25 Mg Tablet) 25 mg PO Q6H PRN PRN Reason: Anxiety Loratadine (Loratadine 10 Mg Tablet) 10 mg PO DAILY [facility] 234 BEDS AT [facility] Last Admin: 08/05/22 08:53 Dose: 10 mg Magnesium Hydroxide (Milk Of Magnesia 30 Ml Oral.Susp) 30 ml PO DAILY PRN PRN Reason: Constipation Last Admin: 08/03/22 08:57 Dose: 30 ml Multivitamins/Vitamin C (Multivitamin Tablet) 1 tab PO DAILY [facility] 234 BEDS AT [facility] Last Admin: 08/05/22 08:51 Dose: 1 tab Omeprazole (Omeprazole 20 Mg Capsule.) 20 mg PO DAILY@0630 [facility] 234 BEDS AT [facility] Last Admin: 08/05/22 08:52 Dose: 20 mg Prazosin HCl (Prazosin Hcl 1 Mg Capsule) 2 mg PO BEDTIME [facility]S [facility] 234 BEDS AT [facility]; Protocol Last Admin: 08/05/22 22:40 Dose: 2 mg Risperidone (Risperidone 2 Mg Tablet) 2 mg PO BEDTIME [facility]S [facility]CLUDE 234 BEDS AT [facility] Last Admin: 08/05/22 22:40 Dose: 2 mg Trazodone HCl (Trazodone Hcl 50 Mg Tablet) 50 mg PO BEDTIME PRN PRN Reason: Insomnia Trazodone HCl (Trazodone Hcl 100 Mg Tablet) 100 mg PO BEDTIME [facility]S [facility]CLUDE 234 BEDS AT [facility] Last Admin: 08/05/22 22:40 Dose: 100 mg Venlafaxine HCl (Venlafaxine Hcl Er 75 Mg Cap.Er.24h) 75 mg PO DAILY [facility] 234 BEDS AT [facility] Last Admin: 08/05/22 08:52 Dose: 75 mg Allergies Allergies Allergy/AdvReac Type Severity Reaction Status Date / Time lisinopril Allergy Unknown Cough Unverified 08/02/22 18:00 Assessment & Plan Assessment & Plan (1) Schizoaffective disorder: Status: Acute Code(s): F25.9 - Schizoaffective disorder, unspecified Plan Mr. Jarrett is a 32 year-old male with hx of schizoaffective disorder. He self pre sented to [facility] ED reporting vague SI. On the unit,he denies SI/HI. He reports he wanted medication adjustment because medication were not working but also reports he was not taking them. Pt unable to explain in what way he wants medications to help him. He denies VH/AH but does appear internally preoccupied. We discussed risks, benefits and alternative treatment options. Pt was restarted on venlafaxine 225mg po daily- which he reports not taking, will lower this medication to avoid hypertensive crisis, also as it may worsen his psychosis. Otherwise, he appears stable, pending collateral information from Jarret and [facility]. PLAN 1. Admit to M3, CV, 15 minutes checks for safety. 2. continue risperidone 2mg po qhs per pt request- he declined MENDOSA invega as he used to be 3. lowered effexor to 75mg po daily 4. Obtain collateral information 5. Aftercare planning. 08/04 continue current tx. 08/05: repeat U/A contaminated. sending for another. slept well last night on reduced dose of trazodone. continue current mgmt otherwise. 08/06: Continue current regimen and plans. Repeat U/A pending. Reason for continued inpatient stay Substantial Risk for: med/psych decompensation Time Spent With Patient Time: Total time managing care of this patient today ____ minutes.
[2022-08-06] MEDS: Docusate Sodium 100 MG CAPSULE PO (09:26)
[2022-08-06] MEDS: Multivitamin TABLET 1 TAB PO (09:26)
[2022-08-06] MEDS: Loratadine 10 MG TABLET PO (09:26)
[2022-08-06] MEDS: Omeprazole 20 MG CAPSULE.DR PO (09:27)
[2022-08-06] MEDS: Gabapentin 600 MG TABLET PO ×3 (09:27→21:37)
[2022-08-06] MEDS: Venlafaxine HCl ER 75 MG CAP.ER.24H PO (09:27)
[2022-08-06] MEDS: Folic Acid 1 MG TABLET PO (09:27)
[2022-08-06] MEDS: Benztropine Mesylate 1 MG TABLET PO ×2 (09:28→21:38)
[2022-08-06 12:00] LABS: Appearance Urine Clear; Color Urine Dark Yellow; Glucose Urine UA Negative (Negative); Leukocyte Esterase Urine Moderate (2+) (Negative); Nitrite Urine Negative (Negative); PH 8.5 (5.0-9.0); Specific Gravity - Urine >= 1.030 (1.005-1.025); UMIC TRIGGER UACC YES; Urine Blood Negative (Negative); Urine Ketones Trace mg/dL (Negative); Urine Protein 30 (1+) mg/dL (Neg-Trace)
[2022-08-06 12:06] LABS: Bacteria Urine None Seen (None Seen); Hyaline Casts Urine 0-2 /LPF (0-2); UACC Culture Trigger YES; WBC Urine >50 /HPF (0-5)
[2022-08-06 21:35] VITALS: BP 135/79; PULSE 75; TEMP 36.3; O2SAT 98
[2022-08-06] MEDS: traZODone HCL 100 MG TABLET PO (21:37)
[2022-08-06] MEDS: Prazosin HCL 1 MG CAPSULE 2 MG PO (21:37)
[2022-08-06] MEDS: risperiDONE 2 MG TABLET PO (21:37)
[2022-08-07 08:12] LABS: Glucose, Whole Blood 90 mg/dL (60-115)
[2022-08-07 08:50] VITALS: BP 136/78; PULSE 83; RESP 18; TEMP 36.7; O2SAT 98
[2022-08-07] MEDS: Loratadine 10 MG TABLET PO (08:50)
[2022-08-07] MEDS: Folic Acid 1 MG TABLET PO (08:51)
[2022-08-07] MEDS: Docusate Sodium 100 MG CAPSULE PO (08:51)
[2022-08-07] MEDS: Gabapentin 600 MG TABLET PO ×3 (08:51→22:04)
[2022-08-07] MEDS: Venlafaxine HCl ER 75 MG CAP.ER.24H PO (08:51)
[2022-08-07] MEDS: Benztropine Mesylate 1 MG TABLET PO ×2 (08:51→22:03)
[2022-08-07] MEDS: Ferrous Sulfate 324 MG TABLET.DR PO (08:51)
[2022-08-07] MEDS: Multivitamin TABLET 1 TAB PO (08:51)
[2022-08-07] MEDS: Omeprazole 20 MG CAPSULE.DR PO (08:51)
--- NOTE | 2022-08-07 09:09 | HO.PSYCHPN ---
Subjective Subjective Date of Service: 08/07/22 Reason For Visit: Schizoeffective disorder Subjective Notes: Conditional Voluntary and 3 Day Healthcare Proxy: No Guardianship: No Medical Problems Affecting Mental Status: No Interim History: Patient was seen and discussed in rounds today. Records and plans were reviewed. He continues to be mostly in his room. He denies any symptoms indicative of UTI and his UA from yesterday did not indicate that. He is as stated mostly isolative, safe and cooperative. Eating and sleeping adequately. No changes were made today Medication Compliance: Yes Side effects from medications: No Attending Groups: Intermittent Mental Status Exam Mental Status Exam Narrative: In today's visit he is alert, oriented and pleasant. Soft-spoken speech. Moderate eye contact. Affect is appropriate and constricted. No acute signs of psychosis. Denies any HI/ SI. Cognitively he has slow thought processes. Judgment is intact Diagnostics Vital Signs (24Hr): Vital Signs - 24 hr 08/06/22 21:35 08/07/22 08:50 Temperature 97.4 F 98.0 F Pulse Rate 75 83 Respiratory Rate 18 Blood Pressure 135/79 136/78 Pulse Oximetry 98 98 Oxygen Delivery Method Room Air Room Air Labs 08/03/22 09:10 Labs: Laboratory Results - last 48 hr 08/05/22 08/06/22 08/06/22 10:23 08:16 11:36 POC Glucose 77 Urine Color Dark Yellow Dark Yellow Urine Appearance Cloudy Clear Urine pH 5.5 8.5 Ur Specific [place] >= 1.030 H >= 1.030 H Urine Protein 100 (2+) H 30 (1+) H Urine Glucose (UA) Negative Negative Urine Ketones 15 Trace Urine Blood Negative Negative Urine Nitrite Negative Negative Ur Leukocyte Esterase Moderate (2+) H Moderate (2+) H Urine RBC 3-5 H 3-5 H Urine WBC >50 H >50 H Ur Squamous Epith Cells 6-10 11-20 Urine Bacteria None Seen None Seen Hyaline Casts 11-20 0-2 08/07/22 08:02 POC Glucose 90 Urine Color Urine Appearance Urine pH Ur Specific [place] Urine Protein Urine Glucose (UA) Urine Ketones Urine Blood Urine Nitrite Ur Leukocyte Esterase Urine RBC Urine WBC Ur Squamous Epith Cells Urine Bacteria Hyaline Casts Medications Medications Current Medications Acetaminophen (Acetaminophen 325 Mg Tablet) 650 mg PO Q6H PRN PRN Reason: Headache/Pain Mild Scale (1-3) Last Admin: 08/04/22 14:04 Dose: 650 mg Al Hydroxide/Mg Hydroxide (Magnesium Hydrox/Alum Hydrox 30 Ml Oral.Susp) 30 ml PO Q6H PRN PRN Reason: Heartburn/Nausea Benztropine Mesylate (Benztropine Mesylate 1 Mg Tablet) 1 mg PO BID [facility] Last Admin: 08/07/22 08:51 Dose: 1 mg Docusate Sodium (Docusate Sodium 100 Mg Capsule) 100 mg PO DAILY [facility] Last Admin: 08/07/22 08:51 Dose: 100 mg Ferrous Sulfate (Ferrous Sulfate 324 Mg Tablet.) 324 mg PO Q2D@0900 [facility] Last Admin: 08/07/22 08:51 Dose: 324 mg Folic Acid (Folic Acid 1 Mg Tablet) 1 mg PO DAILY [facility] Last Admin: 08/07/22 08:51 Dose: 1 mg Gabapentin (Gabapentin 600 Mg Tablet) 600 mg PO TID [facility] Last Admin: 08/07/22 08:51 Dose: 600 mg Hydroxyzine HCl (Hydroxyzine Hcl 25 Mg Tablet) 25 mg PO Q6H PRN PRN Reason: Anxiety Loratadine (Loratadine 10 Mg Tablet) 10 mg PO DAILY [facility] Last Admin: 08/07/22 08:50 Dose: 10 mg Magnesium Hydroxide (Milk Of Magnesia 30 Ml Oral.Susp) 30 ml PO DAILY PRN PRN Reason: Constipation Last Admin: 08/03/22 08:57 Dose: 30 ml Multivitamins/Vitamin C (Multivitamin Tablet) 1 tab PO DAILY [facility] Last Admin: 08/07/22 08:51 Dose: 1 tab Omeprazole (Omeprazole 20 Mg Capsule.) 20 mg PO DAILY@0630 [facility] Last Admin: 08/07/22 08:51 Dose: 20 mg Prazosin HCl (Prazosin Hcl 1 Mg Capsule) 2 mg PO BEDTIME [facility]; Protocol Last Admin: 08/06/22 21:37 Dose: 2 mg Risperidone (Risperidone 2 Mg Tablet) 2 mg PO BEDTIME [facility] Last Admin: 08/06/22 21:37 Dose: 2 mg Trazodone HCl (Trazodone Hcl 50 Mg Tablet) 50 mg PO BEDTIME PRN PRN Reason: Insomnia Trazodone HCl (Trazodone Hcl 100 Mg Tablet) 100 mg PO BEDTIME [facility] Last Admin: 08/06/22 21:37 Dose: 100 mg Venlafaxine HCl (Venlafaxine Hcl Er 75 Mg Cap.Er.24h) 75 mg PO DAILY [facility] Last Admin: 08/07/22 08:51 Dose: 75 mg Allergies Allergies Allergy/AdvReac Type Severity Reaction Status Date / Time lisinopril Allergy Unknown Cough Unverified 08/02/22 18:00 Assessment & Plan Assessment & Plan (1) Schizoaffective disorder: Status: Acute Code(s): F25.9 - Schizoaffective disorder, unspecified Plan Mr. Jarrett is a 32 year-old male with hx of schizoaffective disorder. He self presented to [facility] ED reporting vague SI. On the unit,he denies SI/HI. He reports he wanted medication adjustment because medication were not working but also reports he was not taking them. Pt unable to explain in what way he wants medications to help him. He denies VH/AH but does appear internally preoccupied. We discussed risks, benefits and alternative treatment options. Pt was restarted on venlafaxine 225mg po daily- which he reports not taking, will lower this medication to avoid hypertensive crisis, also as it may worsen his psychosis. Otherwise, he appears stable, pending collateral information from Jarret and [facility]. PLAN 1. Admit to M3, CV, 15 minutes checks for safety. 2. continue risperidone 2mg po qhs per pt request- he declined MENDOSA invega as he used to be 3. lowered effexor to 75mg po daily 4. Obtain collateral information 5. Aftercare planning. 08/04 continue current tx. 08/05: repeat U/A contaminated. sending for another. slept well last night on reduced dose of trazodone. continue current mgmt otherwise. 08/06: Continue current regimen and plans. Repeat U/A pending. 08/07: Continue current regimen and plans. He does have a [address] which expires 08/09 Reason for continued inpatient stay Substantial Risk for: med/psych decompensation Time Spent With Patient Time: Total time managing care of this patient today ____ minutes.
[2022-08-07] MEDS: Magnesium Hydrox/Alum Hydrox 30 ML ORAL.SUSP PO (18:24)
[2022-08-07 21:55] VITALS: BP 132/80; PULSE 75; RESP 16; TEMP 36.6; O2SAT 98
[2022-08-07] MEDS: Prazosin HCL 1 MG CAPSULE 2 MG PO (22:03)
[2022-08-07] MEDS: traZODone HCL 100 MG TABLET PO (22:04)
[2022-08-07] MEDS: risperiDONE 2 MG TABLET PO (22:04)
[2022-08-08 06:00] VITALS: BP 125/76; PULSE 74; RESP 18; TEMP 36.9; O2SAT 98
[2022-08-08] MEDS: Loratadine 10 MG TABLET PO (08:33)
[2022-08-08] MEDS: Multivitamin TABLET 1 TAB PO (08:33)
[2022-08-08] MEDS: Docusate Sodium 100 MG CAPSULE PO (08:33)
[2022-08-08] MEDS: Benztropine Mesylate 1 MG TABLET PO ×2 (08:33→21:31)
[2022-08-08] MEDS: Venlafaxine HCl ER 75 MG CAP.ER.24H PO (08:33)
[2022-08-08] MEDS: Gabapentin 600 MG TABLET PO ×3 (08:33→21:31)
[2022-08-08] MEDS: Omeprazole 20 MG CAPSULE.DR PO (08:33)
[2022-08-08] MEDS: Folic Acid 1 MG TABLET PO (08:33)
[2022-08-08] MEDS: Sulfamethox/Trimeth 800/160 TABLET 1 TAB PO ×2 (10:56→21:31)
--- NOTE | 2022-08-08 13:18 | HO.PSYCHPN ---
Subjective Subjective Date of Service: 08/08/22 Reason For Visit: Schizoeffective disorder Subjective Notes: Conditional Voluntary Healthcare Proxy: Yes Interim History: Pt reports feeling better, emotionally when asked to elaborate pt continues to report he feels better. He denies suicidal or homicidal ideation. He denies voices- he reports less than when he first went to the hospital. He denies buring when urination but does report increase urinary frequency. urine culture is positiv for ecoli. Pt started on bactrim DS 1 tab BID x 7 days. Per nursing, pt is sleeping well. No behavioral concerns. Mostly in his room, minimally interacting with peers. His [facility] team coming to pick him up tomorrow. Medication Compliance: Yes Side effects from medications: No Attending Groups: Intermittent Review of Systems Review of Systems Patient has no acute medical complaints at this time Yes all other systems are reviewed and are negative Diagnostics Vital Signs (24Hr): Vital Signs - 24 hr 08/07/22 21:55 08/08/22 06:00 Temperature 97.8 F 98.5 F Pulse Rate 75 74 Respiratory Rate 16 18 Blood Pressure 132/80 125/76 Pulse Oximetry 98 98 Oxygen Delivery Method Room Air Room Air Labs 08/03/22 09:10 Labs: Laboratory Results - last 48 hr 08/07/22 08:02 POC Glucose 90 Medications Medications Current Medications Acetaminophen (Acetaminophen 325 Mg Tablet) 650 mg PO Q6H PRN PRN Reason: Headache/Pain Mild Scale (1-3) Last Admin: 08/04/22 14:04 Dose: 650 mg Al Hydroxide/Mg Hydroxide (Magnesium Hydrox/Alum Hydrox 30 Ml Oral.Susp) 30 ml PO Q6H PRN PRN Reason: Heartburn/Nausea Last Admin: 08/07/22 18:24 Dose: 30 ml Benztropine Mesylate (Benztropine Mesylate 1 Mg Tablet) 1 mg PO BID [facility] Last Admin: 08/08/22 08:33 Dose: 1 mg Docusate Sodium (Docusate Sodium 100 Mg Capsule) 100 mg PO DAILY [facility] Last Admin: 08/08/22 08:33 Dose: 100 mg Ferrous Sulfate (Ferrous Sulfate 324 Mg Tablet.) 324 mg PO Q2D@0900 [facility] Last Admin: 08/07/22 08:51 Dose: 324 mg Folic Acid (Folic Acid 1 Mg Tablet) 1 mg PO DAILY [facility] Last Admin: 08/08/22 08:33 Dose: 1 mg Gabapentin (Gabapentin 600 Mg Tablet) 600 mg PO TID [facility] Last Admin: 08/08/22 08:33 Dose: 600 mg Hydroxyzine HCl (Hydroxyzine Hcl 25 Mg Tablet) 25 mg PO Q6H PRN PRN Reason: Anxiety Loratadine (Loratadine 10 Mg Tablet) 10 mg PO DAILY [facility] Last Admin: 08/08/22 08:33 Dose: 10 mg Magnesium Hydroxide (Milk Of Magnesia 30 Ml Oral.Susp) 30 ml PO DAILY PRN PRN Reason: Constipation Last Admin: 08/03/22 08:57 Dose: 30 ml Multivitamins/Vitamin C (Multivitamin Tablet) 1 tab PO DAILY [facility] Last Admin: 08/08/22 08:33 Dose: 1 tab Omeprazole (Omeprazole 20 Mg Capsule.Dr) 20 mg PO DAILY@0630 [facility] Last Admin: 08/08/22 08:33 Dose: 20 mg Prazosin HCl (Prazosin Hcl 1 Mg Capsule) 2 mg PO BEDTIME [facility]; Protocol Last Admin: 08/07/22 22:03 Dose: 2 mg Risperidone (Risperidone 2 Mg Tablet) 2 mg PO BEDTIME [facility] Last Admin: 08/07/22 22:04 Dose: 2 mg Trazodone HCl (Trazodone Hcl 50 Mg Tablet) 50 mg PO BEDTIME PRN PRN Reason: Insomnia Trazodone HCl (Trazodone Hcl 100 Mg Tablet) 100 mg PO BEDTIME [facility] Last Admin: 08/07/22 22:04 Dose: 100 mg Trimethoprim/Sulfamethoxazole (Sulfamethox/Trimeth 800/160 Tablet) 1 tab PO Q12H [facility] Stop: 08/14/22 23:01 Last Admin: 08/08/22 10:56 Dose: 1 tab Venlafaxine HCl (Venlafaxine Hcl Er 75 Mg Cap.Er.24h) 75 mg PO DAILY [facility] Last Admin: 08/08/22 08:33 Dose: 75 mg Allergies Allergies Allergy/AdvReac Type Severity Reaction Status Date / Time lisinopril Allergy Unknown Cough Unverified 08/02/22 18:00 Assessment & Plan Assessment & Plan (1) Schizoaffective disorder: Status: Acute Code(s): F25.9 - Schizoaffective disorder, unspecified Plan Mr. Jarrett is a 32 year-old male with hx of schizoaffective disorder. He self presented to [facility] ED reporting vague SI. On the unit,he denies SI/HI. He reports he wanted medication adjustment because medication were not working but also reports he was not taking them. Pt unable to explain in what way he wants medications to help him. He denies VH/AH but does appear internally preoccupied. We discussed risks, benefits and alternative treatment options. Pt was restarted on venlafaxine 225mg po daily- which he reports not taking, will lower this medication to avoid hypertensive crisis, also as it may worsen his psychosis. Otherwise, he appears stable, pending collateral information from Jarret and [facility]. PLAN 1. Admit to M3, CV, 15 minutes checks for safety. 2. continue risperidone 2mg po qhs per pt request- he declined MENDOSA invega as he used to be 3. lowered effexor to 75mg po daily 4. Obtain collateral information 5. Aftercare planning. 08/04 continue current tx. 08/05: repeat U/A contaminated. sending for another. slept well last night on reduced dose of trazodone. continue current mgmt otherwise. 08/06: Continue current regimen and plans. Repeat U/A pending. 08/07: Continue current regimen and plans. He does have a [address] which expires 08/09 08/08 continue tx. Started on bactrim DS 1 tab BID x 7days for ecoli UTI. Informed Consent: understands Reason for continued inpatient stay Substantial Risk for: stable for discharge Time Spent With Patient Time: Total time managing care of this patient today ____ minutes.
[2022-08-08 21:27] VITALS: BP 136/85; PULSE 77; TEMP 36.6; O2SAT 98
[2022-08-08] MEDS: traZODone HCL 100 MG TABLET PO (21:31)
[2022-08-08] MEDS: Prazosin HCL 1 MG CAPSULE 2 MG PO (21:31)
[2022-08-08] MEDS: risperiDONE 2 MG TABLET PO (21:31)
[2022-08-09 08:55] VITALS: BP 152/83; PULSE 82; TEMP 36.3; O2SAT 98
[2022-08-09] MEDS: Multivitamin TABLET 1 TAB PO (08:59)
[2022-08-09] MEDS: Benztropine Mesylate 1 MG TABLET PO (08:59)
[2022-08-09] MEDS: Docusate Sodium 100 MG CAPSULE PO (08:59)
[2022-08-09] MEDS: Venlafaxine HCl ER 75 MG CAP.ER.24H PO (08:59)
[2022-08-09] MEDS: Gabapentin 600 MG TABLET PO (08:59)
[2022-08-09] MEDS: Folic Acid 1 MG TABLET PO (08:59)
[2022-08-09] MEDS: Omeprazole 20 MG CAPSULE.DR PO (09:00)
[2022-08-09] MEDS: Loratadine 10 MG TABLET PO (09:00)
[2022-08-09] MEDS: Ferrous Sulfate 324 MG TABLET.DR PO (09:00)
[2022-08-09] MEDS: Acetaminophen 325 MG TABLET 650 MG PO (09:03)
--- NOTE | 2022-08-09 09:45 | P.DS_ITS ---
DS: Providers Provider Date of Service: 08/09/22 Date of admission: 08/02/22 17:35 Primary care physician: Unknown Physician Consults: 08/03/22 08:57 Consult to Hospitalist Routine Comment: Consulting Provider: Hospitalist Reason For Exam: adm physical diabetes DS: Diagnosis Discharge Diagnosis (1) Schizoaffective disorder: Status: Acute DS: Medications Discharge Medications Home Medications: Home Medications Medication Instructions Recorded Confirmed docusate sodium 100 mg capsule 100 mg PO DAILY 08/02/22 08/02/22 folic acid 1 mg tablet 1 mg PO DAILY 08/02/22 08/02/22 multivitamin with folic acid 400 1 tab PO DAILY 08/02/22 08/02/22 mcg tablet (Daily-Usha (with folic acid)) pantoprazole 40 mg tablet,delayed 40 mg PO DAILY 08/02/22 08/02/22 release Previous Rx's Medication Instructions Recorded benztropine 1 mg tablet 1 mg PO BEDTIME #30 tabs 08/09/22 ferrous sulfate 324 mg (65 mg 324 mg PO Q2D@0900 #30 tabs 08/09/22 iron) tablet,delayed release gabapentin 600 mg tablet 600 mg PO TID #90 tabs 08/09/22 loratadine 10 mg tablet 10 mg PO DAILY #30 tabs 08/09/22 prazosin 2 mg capsule 2 mg PO BEDTIME #30 caps 08/09/22 risperidone 2 mg tablet 2 mg PO BEDTIME #30 tabs 08/09/22 sulfamethoxazole 800 1 tab PO Q12H #11 tabs 08/09/22 mg-trimethoprim 160 mg tablet trazodone 100 mg tablet 100 mg PO BEDTIME #30 tabs 08/09/22 venlafaxine 75 mg capsule,extended 75 mg PO DAILY #30 caps 08/09/22 release 24 hr Mental Status Exam Mental Status Exam Narrative: Appearance: casually groomed, good hygiene, in NAD Behavior: cooperative PSychomotor: no agitation or retardation noted Speech: clear, slight delay in response rate, spontaneous TP: poverty of thought TC: help with meds but denies any symptoms. Mood: good Affect: constricted, but congruent SI: denies HI: denies VH/AH: denies Delusions: no overt delusional content noted or reported Insight/judgment: poor x 2. Memory/cog: alert, oriented x 3. very concrete thinking Data Data Completed and Pending Completed studies during hospitalization [Text1]: 08/03/22 08/03/22 08/03/22 09:10 09:10 13:11 Sodium 143 Potassium 3.6 Chloride 104 Carbon Dioxide 30 H Anion Gap 13 BUN 8 L Creatinine 0.82 Estim Creat Clear Calc TNP Estimated GFR > 60 POC Glucose 69 Fasting Glucose 84 Estimat Average Glucose 88 Hemoglobin A1c % 4.7 Calcium 10.2 Total Bilirubin 0.7 AST 17 ALT 10 Alkaline Phosphatase 69 Total Protein 7.9 Albumin 4.2 Triglycerides 75 Cholesterol 153 LDL Cholesterol, Calc 98 HDL Cholesterol 40 TSH 0.72 Urine Color Urine Appearance Urine pH Ur Specific [place] Urine Protein Urine Glucose (UA) Urine Ketones Urine Blood Urine Nitrite Ur Leukocyte Esterase Urine RBC Urine WBC Ur Squamous Epith Cells Urine Bacteria Hyaline Casts 08/04/22 08/04/22 08/05/22 03:49 09:04 10:23 Sodium Potassium Chloride Carbon Dioxide Anion Gap BUN Creatinine Estim Creat Clear Calc Estimated GFR POC Glucose 100 85 Fasting Glucose Estimat Average Glucose Hemoglobin A1c % Calcium Total Bilirubin AST ALT Alkaline Phosphatase Total Protein Albumin Triglycerides Cholesterol LDL Cholesterol, Calc HDL Cholesterol TSH Urine Color Dark Yellow Urine Appearance Cloudy Urine pH 5.5 Ur Specific [place] >= 1.030 H Urine Protein 100 (2+) H Urine Glucose (UA) Negative Urine Ketones 15 Urine Blood Negative Urine Nitrite Negative Ur Leukocyte Esterase Moderate (2+) H Urine RBC 3-5 H Urine WBC >50 H Ur Squamous Epith Cells 6-10 Urine Bacteria None Seen Hyaline Casts 11-20 08/06/22 08/06/22 08/07/22 08:16 11:36 08:02 Sodium Potassium Chloride Carbon Dioxide Anion Gap BUN Creatinine Estim Creat Clear Calc Estimated GFR POC Glucose 77 90 Fasting Glucose Estimat Average Glucose Hemoglobin A1c % Calcium Total Bilirubin AST ALT Alkaline Phosphatase Total Protein Albumin Triglycerides Cholesterol LDL Cholesterol, Calc HDL Cholesterol TSH Urine Color Dark Yellow Urine Appearance Clear Urine pH 8.5 Ur Specific [place] >= 1.030 H Urine Protein 30 (1+) H Urine Glucose (UA) Negative Urine Ketones Trace Urine Blood Negative Urine Nitrite Negative Ur Leukocyte Esterase Moderate (2+) H Urine RBC 3-5 H Urine WBC >50 H Ur Squamous Epith Cells 11-20 Urine Bacteria None Seen Hyaline Casts 0-2 08/05/22 14:37 Urine clean catch - Urine young top Urine Culture - Final Escherichia coli DS: Summary Hospital Course Hospital Course: HPI: Subjective Notes: Pritchard Warning (given and shows understanding) and Conditional Voluntary Narrative: Mr. Jarrett is a 32 year-old male with hx of schizoaffective disorder. He self presented to [facility] ED reporting vague suicidal ideation. He had presented to [facility] ED days prior with similar presentation. In the ED, utox is negative. On the unit, pt presents as calm, pleasant. He reports he came to the hospital because my medications were not working. When asked about how he wants medications to help his mood, pt states I don't know. He denies suicidal or homicidal ideation. He denies visual or auditory hallucinations. He also reports he was not taking his medications. He reports sleeping and eating well. He appears internally preoccupied. No overt guarded or paranoid but some suspiciousness. Past Psychiatric History: Inpatient: several in the past ? OP: Jarret. He does have ACCS team ? Past medication trials: paliperidone, risperidone, effexor Hx of suicide attempts: pt denies. Medical Evaluation Reviewed: Yes Note A1C 4.7% HOSPITAL COURSE On the unit, pt was admitted on a CV and placed on 15 minutes checks for safety. Pt denied suicidal or homicidal ideation throughout the hospital stay. He denies visual or auditory hallucinations. He did not report overt delusions. He was vague about concerns prior to going to ED twice. After discussing risks, benefits and alternative treatment options, he agreed to continue risperidone. He declined re-starting invega sustenna. Effexor, which was restarted on lower dose as pt reported he was not taking it. He was mostly in his room. He was social with select peers. He was sleeping and eating well. There were no incidences of disruptive behaviors nor need for restraints. A1c was 4.7%- metformin was discontinued and pt advised to follow up with PCP. On day of discharge, pt asked if he could stay longer, however, he did not identify any reason for it, more than stating he felt comfortable here. [facility] came to pick him up. He was advised to continue outpatient psychiatric treatment. His VNA services were resumed. Status at Discharge Cognitive/behavioral status at discharge: Pt with brighter, non labile affect. No SI/HI. No overt psychosis, suspect some underlying delusion. No aggression towards self or others. Pt sleeping and eating well. Functional status at discharge: independent ambulation Overall status at discharge: patient is progressing back to baseline Time Spent with Patient Time attestation: Total time managing care of this patient today ____ minutes. Time spent: Greater than 30 minutes Discharge Plan Discharge Anticipated Discharge Date/Time: 08/09/22 09:06 Patient Disposition: Home, Self-Care Discharge Diagnosis: Schizoaffective Disorder Referrals: Physician,Unknown J [Primary Care Provider] - 1 Week Discharge Medications: New sulfamethoxazole-trimethoprim 800-160 mg Tablet 1 tab PO Q12H Qty: 11 0RF loratadine 10 mg Tablet 10 mg PO DAILY Qty: 30 0RF ferrous sulfate 324 mg (65 mg iron) Tablet,Delayed Release (Dr/Ec) 324 mg PO Q2D@0900 Qty: 30 0RF prazosin 2 mg capsule 2 mg PO BEDTIME Qty: 30 0RF venlafaxine 75 mg Capsule,Extended Release 24hr 75 mg PO DAILY Qty: 30 0RF gabapentin 600 mg Tablet 600 mg PO TID Qty: 90 0RF risperidone 2 mg Tablet 2 mg PO BEDTIME Qty: 30 0RF trazodone 100 mg Tablet 100 mg PO BEDTIME Qty: 30 0RF benztropine 1 mg Tablet 1 mg PO BEDTIME Qty: 30 0RF Continued pantoprazole 40 mg tablet,delayed release (DR/EC) 40 mg PO DAILY docusate sodium 100 mg capsule 100 mg PO DAILY folic acid 1 mg tablet 1 mg PO DAILY multivitamin with folic acid [Daily-Usha (with folic acid)] 400 mcg tablet 1 tab PO DAILY Discontinued venlafaxine 75 mg capsule,extended release 24hr 225 mg PO DAILY gabapentin 600 mg tablet 600 mg PO TID risperidone 0.25 mg tablet 2 mg PO BEDTIME trazodone 150 mg tablet 150 mg PO BEDTIME benztropine 1 mg tablet 1 mg PO BID gabapentin 100 mg capsule 100 mg PO TID metformin 500 mg tablet extended release 24 hr 500 mg PO DAILY loratadine 10 mg tablet 10 mg PO DAILY prazosin 2 mg capsule 2 mg PO BEDTIME ferrous fumarate 324 mg (106 mg iron) tablet 324 mg PO Q OTHER DAY amoxicillin-pot clavulanate 875 mg PO BID Discharge Orders: Discharge Order (Routine); Ordered 08/09/22 Ordered By: Monica Ramos Diet: Regular diet Activity on Discharge: As tolerated Stand Alone Forms: Patient Portal Discharge page, Community Support Care Plan Goals: 1. Maintain mood 2. No SI/HI 3. No acute psychosis or delusions 4. No aggression towards self or others Health Concerns: Follow up with PCP- A1C 4% metformin was discontinued. Plan of Treatment: 1. Take medications as prescribed 2. Go to nearest ED or call 911 in event of emergency Assessment: Pt with calm, constricted but stable affect. No SI/HI. No overt psychosis or delusions. No signs of aggression towards self or others. Pt sleeping and eating. Pt to return to his own apartment with supports from [facility].
[2022-08-09] MEDS: Sulfamethox/Trimeth 800/160 TABLET 1 TAB PO (11:21)
--- NOTE | 2022-08-09 12:58 | PC.NURSE ---
Reviewed discharge information with pt. Pt received a copy of discharge instructions and verbalized understanding. Pt plans to take medications as prescribed. Pt denies SI/HI/AH/VH.
== END 2022-08-09 13:00 | disposition home or self-care (01) | DRG 885 ==
PROVIDERS: Psychiatry & Neurology Psychiatry; Admitting Provider Psychiatry & Neurology Psychiatry; Visit Provider Social Worker
DX: F25.9 Schizoaffective disorder, unspecified (principal); R45.851 Suicidal ideations; N39.0 Urinary tract infection, site not specified; E11.9 Type 2 diabetes mellitus without complications; B96.20 Unspecified Escherichia coli [E. coli] as the cause of diseases classified elsewhere; Z79.899 Other long term (current) drug therapy
CPT/HCPCS: 36415; 80053; 80061; 81001; 81003; 82947; 83036; 84443; 87086; 87088; 87186

== ENCOUNTER 2022-11-19 14:53 | Emergency (ER) | payer OTHER, SELFPAY ==
--- NOTE | ~2022-11-19 | CT_ITS ---
EXAMINATION: CT ABDOMEN AND PELVIS WITH CONTRAST CLINICAL INFORMATION: Left lower quadrant pain COMPARISON: None available. TECHNIQUE: Multidetector volumetric images were obtained from the superior aspect of the liver through the pubic symphysis following administration 85 mL of Omnipaque 350 intravenous contrast. Sagittal and coronal reformatted images were obtained on the technologist's workstation. Oral contrast: Yes This CT examination was performed using dose optimization techniques as appropriate, variously including the following: *Automated exposure control *Adjustment of mA and/or kV according to patient size (this includes techniques or standardized protocols for targeted exams where dose is matched to indication/reason for exam; i.e. extremities or head) *Use of iterative reconstruction technique DLP: 574 mGy-cm FINDINGS: LUNG BASES: The visualized lung bases are unremarkable. LIVER, GALLBLADDER, AND BILIARY TREE: The liver is normal in size, shape, and attenuation. No focal hepatic lesion or biliary ductal dilatation is present. The gallbladder is unremarkable with no evidence of radiopaque gallstones, gallbladder wall thickening, or obvious pericholecystic inflammatory changes. PANCREAS: Unremarkable. SPLEEN: Unremarkable. ADRENAL GLANDS: Unremarkable. KIDNEYS AND URETERS: The kidneys are normal in size, shape, and attenuation. No hydronephrosis, hydroureter, or calculi seen. No perinephric stranding. Small right renal cyst. No imaging follow-up recommended. BLADDER: Very full bladder. GASTROINTESTINAL TRACT: The small and large bowel are unremarkable. The appendix is unremarkable. ABDOMINAL WALL: No significant hernia is appreciated. LYMPH NODES: Normal. VASCULAR: Unremarkable. PELVIC VISCERA: Unremarkable. OSSEOUS STRUCTURES: Unremarkable. CT/CT abdomen pelvis w IV con IMPRESSION: Very full bladder. Otherwise unremarkable exam. Fleischner guidelines were followed.
[2022-11-19 15:14] VITALS: BP 129/93; BP 180/120; PULSE 102; PULSE 115; RESP 16; TEMP 36.8; O2SAT 97; O2SAT 98; BMI 27.9
--- NOTE | 2022-11-19 15:54 | ED.ABDPAIN ---
HPI - Abdominal Pain General Chief Complaint: Abdominal Pain Stated Complaint: ABD PAIN Time Seen by Provider: 11/19/22 15:53 Source: patient Mode of arrival: EMS Limitations: other (non verbal but points and seems to say yes or no quietly) History of Present Illness HPI narrative: 32 yo male with PMH of schizoaffective disorder, HTN, DM here with c/o LLQ pain x 2 days without BM x 4 to 5 days. He has no complaints or testicular pain. He has not had surgery. This has not happened before. He is at [facility] for recent decompensation and becoming non-verbal. Seen at [facility] for same without imaging. He has been at [facility] it sounds like for 10 days. MD elicited complaint: abdominal pain Pertinent past history: none Onset (ago): day(s) (2) Pain Consistency: constant Location: LLQ Severity: moderate Quality: aching and dull Radiation: none Migration to: no migration Exacerbating factors: movement Relieving factors: nothing Associated symptoms: nausea and constipation Related Data Home Medications Medication Instructions Recorded Confirmed docusate sodium 100 mg capsule 100 mg PO DAILY 08/02/22 08/02/22 folic acid 1 mg tablet 1 mg PO DAILY 08/02/22 08/02/22 multivitamin with folic acid 400 1 tab PO DAILY 08/02/22 08/02/22 mcg tablet (Daily-Usha (with folic acid)) pantoprazole 40 mg tablet,delayed 40 mg PO DAILY 08/02/22 08/02/22 release Previous Rx's Medication Instructions Recorded benztropine 1 mg tablet 1 mg PO BEDTIME #30 tabs 08/09/22 ferrous sulfate 324 mg (65 mg 324 mg PO Q2D@0900 #30 tabs 08/09/22 iron) tablet,delayed release gabapentin 600 mg tablet 600 mg PO TID #90 tabs 08/09/22 loratadine 10 mg tablet 10 mg PO DAILY #30 tabs 08/09/22 prazosin 2 mg capsule 2 mg PO BEDTIME #30 caps 08/09/22 risperidone 2 mg tablet 2 mg PO BEDTIME #30 tabs 08/09/22 sulfamethoxazole 800 1 tab PO Q12H #11 tabs 08/09/22 mg-trimethoprim 160 mg tablet trazodone 100 mg tablet 100 mg PO BEDTIME #30 tabs 08/09/22 venlafaxine 75 mg capsule,extended 75 mg PO DAILY #30 caps 08/09/22 release 24 hr Allergies Allergy/AdvReac Type Severity Reaction Status Date / Time lisinopril Allergy Unknown Cough Unverified 08/02/22 18:00 clonidine AdvReac Unknown Unknown Verified 11/19/22 16:28 Review of Systems Review of Systems Constitutional : No Weight loss, No Fever, No Chills ENT/Mouth : No sore throat, No Rhinorrhea Eyes: No Swelling, No Redness Cardiovascular : No Chest Pain, No SOB, NoEdema Respiratory : No Cough, No Sputum, No Wheezing Gastrointestinal : Positive Nausea, no Vomiting, no Diarrhea, positive abdominal Pain, No Hematochezia, No Melena, pos constipation Genitourinary : No Dysuria, No Urinary Frequency, No Hematuria, No Urgency Musculoskeletal : No joint pain, No Myalgias, No Joint Swelling Skin : No Skin Lesions, No rash Neuro : No Weakness, No Numbness, No Dizziness, No Headache Psych : No Anxiety/Panic, No Depression Heme/Lymph: No Bruising, No Lymphadenopathy Endocrine : No Polyuria, No Polydipsia All other systems reviewed and are negative. [facility] Past Medical History Attestation statement: The following information was validated with the patient. Medical History (Updated 11/19/22 @ 18:08 by Ofelia Grossman DO) Schizoaffective disorder Diabetes HTN (hypertension) Social History Social History Household Members: None Housing: House Unable to assess alcohol history related to: Refusing to respond Patient Tobacco Use Status: Never used Tobacco Smoked in Last 30 Days: No Use of substances other than those prescribed or required for medical reasons: No Advance Directives: No Advance Directives Information Provided: No service: No Sexual orientation: Decline to Answer Physical Exam ED Vital Signs: Vital Signs - 24 hr 11/19/22 15:14 11/19/22 17:07 Temperature 98.3 F 98.1 F Pulse Rate 102 H 89 Respiratory Rate 16 17 Blood Pressure 129/93 H 140/83 H Pulse Oximetry 98 98 Oxygen Delivery Method Room Air Room Air BMI result Body Mass Index 27.9 Appearance: Alert. Oriented X3. No acute distress. Eyes: Pupils equal, round and reactive to light. ENT: Pharynx normal. Neck: Normal inspection. Neck supple. CVS: Normal heart rate and rhythm. Pulses normal. Respiratory: No respiratory distress. Breath sounds normal. Abdomen: Soft and moderate LLQ ttp no rebound or guarding no mass Skin: Skin warm and dry. Normal skin color. Normal skin turgor. Extremities: No lower extremity edema. No calf ttp Neuro: Oriented X 3. No motor deficit. No sensory deficit. Course Course Course Narrative: refusing to urinate - at this time will straight cath. Reevaluation(s) Reevaluation #1: 700cc out of bladder pending UA will likely DC back with precautions to monitor in and out. Medical Decision Making Medical Decision Making [facility] Narrative: 32 yo male with PMH of schizoaffective disorder, HTN, DM here with c/o LLQ pain x 2 days without BM x 4 to 5 days here with c/o LLQ pain and constipation denies complaints at this time will need basic labs, IVF, IV morphine for pain, CT scan to evaluate for mass, constipation, diverticulitis, renal colic. His BS is 82 DKA seems unlikely. Differential Diagnosis Differential Diagnoses: The differential diagnosis associated with the presentation includes diverticulitis, constipation, UTI, renal colic Admission/Observation Consideration of admission/observation: Escalation of care including admission/observation considered negative work up going to facility can be monitored for I/O - Cr normal Lab Data [facility] Lab Attestation statement: I reviewed the patient's lab results. 11/19/22 15:52 11/19/22 15:52 Labs: Lab Results 11/19/22 11/19/22 11/19/22 Range/Units 15:52 16:11 17:57 WBC 7.8 (4.8-10.8) X10*3/uL RBC 5.75 (4.60-5.80) X10*6/uL Hgb 15.7 (14.0-18.0) g/dl Hct 47.9 (42.0-52.0) % MCV 83.3 (80.0-98.0) fL MCH 27.3 (27.0-33.0) pg MCHC 32.8 (31.0-36.0) g/dl RDW 11.8 (11.0-16.0) % Plt Count 271 (160-400) X10*3/uL MPV 10.3 (9.4-12.4) fL Immature Gran % (Auto) 0.3 (0.0-0.4) % Neut % (Auto) 62.3 (45-73) % Lymph % (Auto) 31.0 (20-40) % Cook % (Auto) 5.0 (2-11) % Eos % (Auto) 0.9 (0-4) % Baso % (Auto) 0.5 (0-2) % Lymph # (Auto) 2.4 (1.2-4.9) X10*3/uL Cook # (Auto) 0.4 (0.1-1.2) X10*3/uL Eos # (Auto) 0.1 (0.0-0.4) X10*3/uL Baso # (Auto) 0.0 (0.0-0.2) X10*3/uL Abs Immat Gran (auto) 0.02 (0.00-0.03) X10*3/uL Absolute Neuts (auto) 4.8 (2.0-8.3) x10*3/uL Absolute Nucleated RBC 0.000 (0.0-0.012) X10*3/uL Nucleated RBC % (auto) 0.0 (0.0-0.2) /100WBC Sodium 140 (135-145) mmol/L Potassium 4.3 (3.3-5.1) mmol/L Chloride 105 (96-108) mmol/L Carbon Dioxide 23 (22-29) mmol/L Anion Gap 16 (12-20) BUN 11 (9-16) mg/dL Creatinine 0.79 (0.5-1.4) mg/dL Estim Creat Clear Calc 151.8 Estimated GFR > 60 POC Glucose 82 (60-115) mg/dL Random Glucose 85 (60-115) mg/dL Calcium 9.6 (8.4-10.2) mg/dL Total Bilirubin 0.5 (0.0-1.0) mg/dL AST 26 (5-37) U/L ALT 15 (0-40) U/L Alkaline Phosphatase 49 (39-117) U/L Total Protein 7.6 (6.5-8.0) g/dL Albumin 4.3 (3.5-5.0) g/dL Lipase 14 (8-78) U/L Urine Color Dark Yellow Urine Appearance Clear Urine pH 7.5 (5.0-9.0) Ur Specific [place] 1.025 (1.005-1.025) Urine Protein Trace (Neg-Trace) mg/dL Urine Glucose (UA) Negative (Negative) mg/dL Urine Ketones 15 (Negative) mg/dL Urine Blood Negative (Negative) Urine Nitrite Negative (Negative) Ur Leukocyte Esterase Trace H (Negative) Urine RBC 0-2 (0-2) /HPF Urine WBC 0-5 (0-5) /HPF Ur Squamous Epith Cells 0-2 (0-2) /HPF Urine Bacteria None Seen (None Seen) Hyaline Casts 0-2 (0-2) /LPF Urine Opiates Screen Not Detected (Not Detect) Urine Fentanyl Screen Not Detected (Not Detect) Ur Barbiturates Screen Not Detected (Not Detect) Ur Phencyclidine Scrn Not Detected (Not Detect) Ur Amphetamines Screen Not Detected (Not Detect) U Benzodiazepines Scrn Not Detected (Not Detect) Urine Cocaine Screen Not Detected (Not Detect) U Marijuana (THC) Screen Not Detected (Not Detect) Independent Interpretation I performed an independent interpretation of an: CT Scan (normal other than retention) Radiology Impression Discussion of test interpretation with radiology: I have reviewed the radiologist's reading. Independent Historian Clinical information obtained from an independent historian. History obtained from or confirmed by: EMS External Record Review External record reviewed: Outpatient record Medications Administered Discontinued Medications Generic Name Dose Route Start Last Admin Trade Name Freq PRN Reason Stop Dose Admin Sodium Chloride 1,000 mls @ 999 mls/hr 11/19/22 16:15 11/19/22 16:25 Ns IV 11/19/22 17:15 999 mls/hr .Q1H1M [id number] Administration Iohexol 100 ml 11/19/22 16:37 11/19/22 16:38 Iohexol 350 Mg/Ml 100 Ml Infus..Btl IV 11/19/22 16:38 85 ml ONCE ONE Administration Morphine Sulfate 4 mg 11/19/22 16:04 11/19/22 16:45 Morphine Sulfate 4 Mg/Ml Cartridge IVPUSH 11/19/22 16:05 4 mg ONCE ONE Administration Protocol Ondansetron HCl 4 mg 11/19/22 16:04 11/19/22 16:45 Ondansetron Hcl 4 Mg/2 Ml Vial IVPUSH 11/19/22 16:05 4 mg ONCE ONE Administration Discharge Plan Discharge Clinical Impression: Acute urinary retention Abdominal pain Qualifiers: Abdominal location: left lower quadrant Qualified Code(s): R10.32 - Left lower quadrant pain Patient Disposition: Home, Self-Care Instructions: Urinary Retention in Men (ED), Abdominal Pain (ED) Additional Instructions: labs and urine normal CT scan showed retention he did not want to give urine so we had to straight cath him which was negative - he was retaining this could be an issue due to his medications please monitor for retention and bladder scan every 6 to 8 hours. his kidney function was normal. return for fevers, vomiting, worsening pain or any other concerns. Prescriptions: No Action pantoprazole 40 mg tablet,delayed release (DR/EC) 40 mg PO DAILY docusate sodium 100 mg capsule 100 mg PO DAILY folic acid 1 mg tablet 1 mg PO DAILY multivitamin with folic acid [Daily-Usha (with folic acid)] 400 mcg tablet 1 tab PO DAILY sulfamethoxazole-trimethoprim 800-160 mg Tablet 1 tab PO Q12H Qty: 11 0RF loratadine 10 mg Tablet 10 mg PO DAILY Qty: 30 0RF ferrous sulfate 324 mg (65 mg iron) Tablet,Delayed Release (Dr/Ec) 324 mg PO Q2D@0900 Qty: 30 0RF prazosin 2 mg capsule 2 mg PO BEDTIME Qty: 30 0RF venlafaxine 75 mg Capsule,Extended Release 24hr 75 mg PO DAILY Qty: 30 0RF gabapentin 600 mg Tablet 600 mg PO TID Qty: 90 0RF risperidone 2 mg Tablet 2 mg PO BEDTIME Qty: 30 0RF trazodone 100 mg Tablet 100 mg PO BEDTIME Qty: 30 0RF benztropine 1 mg Tablet 1 mg PO BEDTIME Qty: 30 0RF
[2022-11-19 15:57] LABS: MANUAL DIFF FLAG NO
[2022-11-19 15:58] LABS: Basophils Percent Auto 0.5 % (0-2); Eosinophils Absolute Auto 0.1 X10*3/uL (0.0-0.4); Eosinophils Percent Auto 0.9 % (0-4); Hematocrit 47.9 % (42.0-52.0); Hemoglobin 15.7 g/dl (14.0-18.0); Imm Gran Abs Auto 0.02 X10*3/uL (0.00-0.03); Imm Gran Pct Auto 0.3 % (0.0-0.4); Lymphocytes Absolute Auto 2.4 X10*3/uL (1.2-4.9); Mean Corpuscular HGB Conc 32.8 g/dl (31.0-36.0); Mean Corpuscular Hemoglobin 27.3 pg (27.0-33.0); Mean Corpuscular Volume 83.3 fL (80.0-98.0); Mean Platelet Volume 10.3 fL (9.4-12.4); Monocytes Absolute Auto 0.4 X10*3/uL (0.1-1.2); Neutrophils Absolute Auto 4.8 x10*3/uL (2.0-8.3); Neutrophils Percent Auto 62.3 % (45-73); Platelet Count 271 X10*3/uL (160-400); Red Blood Count 5.75 X10*6/uL (4.60-5.80); Red Cell Distribution Width 11.8 % (11.0-16.0); White Blood Count 7.8 X10*3/uL (4.8-10.8)
[2022-11-19 16:16] LABS: Glucose, Whole Blood 82 mg/dL (60-115)
[2022-11-19 16:17] LABS: Alanine Aminotransferase 15 U/L (0-40); Albumin Level 4.3 g/dL (3.5-5.0); Alkaline Phosphatase 49 U/L (39-117); Anion Gap 16 (12-20); Aspartate Amino Transferase 26 U/L (5-37); Bilirubin Total 0.5 mg/dL (0.0-1.0); Blood Urea Nitrogen 11 mg/dL (9-16); Calcium 9.6 mg/dL (8.4-10.2); Carbon Dioxide 23 mmol/L (22-29); Chloride 105 mmol/L (96-108); Creatinine Clr Calc Pharmacy 151.8; Estimated Glomerular Filt Rate > 60; Glucose Random 85 mg/dL (60-115); Lipase 14 U/L (8-78); Potassium 4.3 mmol/L (3.3-5.1); Sodium 140 mmol/L (135-145); Total Protein 7.6 g/dL (6.5-8.0)
[2022-11-19] MEDS: 0.9 % Sodium Chloride 1,000 ML 999 ML IV (16:25)
--- OUTSIDE RECORDS SUMMARY | 2022-11-19 16:31 | XMS_ITS | Continuity of Care Document ---
Author Name Unknown Organization [facility] Address [address] [place] [address]- Care Team Providers Care Artistic Associate Name Role Phone Delia ACOSTA, Lamine Covington Primary Care Physician [phone] Encounter [facility] Date(s): 07/28/22 - 08/27/22 [facility] [address] [place] [address]- Allergies, Adverse Reactions, Alerts Substance Reaction Severity Status lisinopril dry cough Active Dust Mild Active Milk Products Nausea and vomiting Persistent Moderate Active cloNIDine confusion Active Immunizations Given and Recorded Vaccine Date Status Refusal Reason [id number] 12y+ bivalent booster vax 02/07/22 Given influenza [...] each, 1 Refills, Maintenance, 06/06/22 16:49:00 EDT, [facility] [id number], 178, cm, 06/06/22 16:31:00 EDT, Height, 101.4, kg, 01/12/22 14:14:00 EST, Dry Weight Start Date: 06/06/22 Status: Ordered ferrous fumarate 324 mg oral tablet 1 tablet = 324 mg, By Mouth, Every 48 hours, # 15 tablet, 5 Refills, Maintenance, 06/06/22 16:37:00EDT, [facility] [id number], Partial fill upon patient request if the prescription is for a schedule II opioid drug., 178, cm,... Start Date: 06/06/22 Status: Ordered folic acid 1 mg oral tablet 1, tablet, By Mouth, Daily, # 30 tablet, Refills 5, Tot. Refills 5, Maintenance, 06/06/22 16:49:00 EDT, Route to Pharmacy Electronically, [facility] [id number], 178, cm, 06/06/22 16:31:00 EDT, Height, 101.4, kg, 01/12/22 14:14... Start Date: 06/06/22 Status: Ordered gabapentin 100 mg oral capsule TAKE 1 CAPSULE BY MOUTH 3 (THREE) TIMES A DAY Start Date: 07/26/22 Status: Ordered gabapentin 600 mg oral tablet 1 tablet = 600 mg, By Mouth, 3 times a day, # 90 tablet, 5 Refills, Maintenance, 06/06/22 16:41:00 EDT, Tablet, [facility] [id number], Partial fill upon patient request if the prescription is for a schedule II opioid drug., 17... Start Date: 06/06/22 Stop Date: 12/03/22 Status: Ordered loratadine 10 mg oral tablet 10 mg, 1, tablet, By Mouth, Daily, # 30 tablet, Refills 3, Tot. Refills 3, Maintenance, 06/06/22 16:41:00 EDT, Route to Pharmacy Electronically, [facility] [id number], Partial fill upon patient request if the [...] Refills, Maintenance, 06/06/22 16:49:00 EDT, REC Powder, [facility] [id number], Partial fill upon patient request if the prescription is for a schedule II... Start Date: 06/06/22 Status: Ordered multivitamin Multiple Vitamins oral tablet 1 tablet, By Mouth, Daily, # 90 tablet, 3 Refills, Maintenance, 06/06/22 16:40:00 EDT, [facility] [id number], Partial fill upon patient request if the [...] ONCE DAILY Start Date: 07/26/22 Status: Ordered Sleep pillow for snoring Sleep pillow for snoring, See Instructions, # 1 each, Refills 0, Tot. Refills 0, Maintenance, Dx: Sleep apnea G47.33 duration: lifetime, 06/03/22 16:30:00 EDT, Supply Start Date: 06/03/22 Status: Ordered traZODone 100 mg oral tablet TAKE 1 TABLET BY MOUTH ONCE DAILY AT BEDTIME FOR 7 DAYS Start Date: 02/07/22 Status: Ordered venlafaxine 75 mg oral capsule, extended release 1 capsule = 75 mg, By Mouth, TAKE 3 CAPSULES BY MOUTH ONCE DAILY [...] sleep apnea, Complex sleep apnea Confirmed Active BHN/CCA/Paraprofessional Education Assistant-Tia Kolby [phone]/Health longterm, active care coordination Confirmed Active Treatment-emergent [...] Team Personnel Name: Ela Beltrán RN Position: [facility] AMB Nurse Member Role: Primary Care Nurse Name: Alaina Gillette RN Position: [facility] RN Member Role: Primary Care Nurse Name: Kristyn Tapia RN Position: [facility] RN Member Role: Primary Care Nurse Name: Lorna Gentile NP Position: [facility] Associate Professional Member Role: Primary Care Nurse Address: Address: [address] [place] [address] Name: Venus Jaramillo RN Position: [facility] RN Member Role: Primary Care Nurse Name: Flor Donnelly RN Position: [facility] RN Member Role: Primary Care Nurse Name: Ruiz Matson RN Position: [facility] RN Member Role: Primary Care Nurse Name: Belle Ames RN Position: [facility] RN Member Role: Primary Care Nurse Name: Alex Rios RN Position: [facility] RN Member Role: Primary Care Nurse Name: Daniel Hernandez III, RN Position: [facility] RN Member Role: Primary Care Nurse Name: Jordi Carter MD Position: [facility] Renal MD Member Role: Lifetime Consulting Physician Address: Address: [address] [facility] [place] [address]- [place] Name: Loren Hamlin RN Position: [facility] RN Member Role: Primary Care Nurse Name: Malia Wise RN Position: [facility] RN Member Role: Primary Care Nurse Name: Jessica Dia RN Position: [facility] RN Member Role: Primary Care Nurse Name: Lamine Lin MD Position: [facility] Physician - Primary Care Member Role: PCP Address: Address: [address] [place] [address]- [place] Name: Rose Abraham RN Position: [facility] Hospital Inclusion Teacher Member Role: Primary Care Nurse Name: Vinod Botello MD Position: [facility] Physician - Behavioral Health Member Role: Lifetime Consulting Physician Address: Address: [address] [place] [address]- [place] Care Team Related Persons Name: MALIA HARRIS Name: KATHLEEN JACQUES Address: home [address] [place] [address] Name: VIRGIL PARKS Address: home [address] [place] [address] Name: MICHAELA MONTENEGRO Address: home UNKNOWN Name: MIGUEL PUENTES Address: home [address] [place] [address]
--- OUTSIDE RECORDS SUMMARY | 2022-11-19 16:31 | XMS_ITS | Continuity of Care Document ---
Author Name Unknown Organization [facility] Address [address] [place] [address]- Care Team Providers Care Custodial Services Manager Name Role Phone Delia ACOSTA, Lamine Covington Primary Care Physician [facility]): 09/15/22 - 10/15/22 [facility] [address] [place] [address]- Allergies, Adverse Reactions, Alerts Substance Reaction Severity Status lisinopril dry cough Active Dust Mild Active cloNIDine confusion Active Milk Products Nausea and vomiting Persistent Moderate Active Immunizations Given and Recorded Vaccine Date Status Refusal Reason [id number] 12y+ bivalent booster vax 02/07/22 Given influenza [...] each, 1 Refills, Maintenance, 06/06/22 16:49:00 EDT, [facility] [id number], 178, cm, 06/06/22 16:31:00 EDT, Height, 101.4, kg, 01/12/22 14:14:00 EST, Dry Weight Start Date: 06/06/22 Status: Ordered ferrous fumarate 324 mg oral tablet 1 tablet = 324 mg, By Mouth, Every 48 hours, # 15 tablet, 5 Refills, Maintenance, 06/06/22 16:37:00EDT, [facility] [id number], Partial fill upon patient request if the prescription is for a schedule II opioid drug., 178, cm,... Start Date: 06/06/22 Status: Ordered folic acid 1 mg oral tablet 1, tablet, By Mouth, Daily, # 30 tablet, Refills 5, Tot. Refills 5, Maintenance, 06/06/22 16:49:00 EDT, Route to Pharmacy Electronically, [facility] [id number], 178, cm, 06/06/22 16:31:00 EDT, Height, 101.4, kg, 01/12/22 14:14... Start Date: 06/06/22 Status: Ordered gabapentin 100 mg oral capsule TAKE 1 CAPSULE BY MOUTH 3 (THREE) TIMES A DAY Start Date: 07/26/22 Status: Ordered gabapentin 600 mg oral tablet 1 tablet = 600 mg, By Mouth, 3 times a day, # 90 tablet, 5 Refills, Maintenance, 06/06/22 16:41:00 EDT, Tablet, [facility] [id number], Partial fill upon patient request if the prescription is for a schedule II opioid drug., 17... Start Date: 06/06/22 Stop Date: 12/03/22 Status: Ordered loratadine 10 mg oral tablet See Instructions, TAKE 1 TABLET BY MOUTH ONCE DAILY, # 30 tablet, Refills 5, Tot. Refills 5, Maintenance, 09/06/22 22:51:00 EDT, Instructions Replace Required Details, Route to Pharmacy Electronically, [facility] [id number], 1... Start Date: 09/06/22 Status: Ordered MetFORMIN (Eqv-Glucophage XR) 500 mg oral tablet, extended release TAKE 1 TABLET BY MOUTH ONCE DAILY Start Date: 07/26/22 Status: Ordered MiraLax oral powder for reconstitution = 17 Gm, By Mouth, Daily, dissolve in water before taking, # 527 Gm, 1 Refills, Maintenance, 06/06/22 16:49:00 EDT, REC Powder, [facility] [id number], Partial fill upon patient request if the prescription is for a schedule II... Start Date: 06/06/22 Status: Ordered multivitamin Multiple Vitamins oral tablet 1 tablet, By Mouth, Daily, # 90 tablet, 3 Refills, Maintenance, 06/06/22 16:40:00 EDT, [facility] [id number], Partial fill upon patient request if the [...] sleep apnea, Complex sleep apnea Confirmed Active BHN/CCA/Furniture Crater-Tia Kolby [phone]/Health nursing home, active care coordination Confirmed Active Treatment-emergent [...] Team Personnel Name: Ela Beltrán RN Position: [facility] Nurse Member Role: Primary Care Nurse Name: Alaina Gillette RN Position: [facility] RN Member Role: Primary Care Nurse Name: Kristyn Tapia RN Position: [facility] RN Member Role: Primary Care Nurse Name: Lorna Gentile NP Position: [facility] Associate Professional Member Role: Primary Care Nurse Address: Address: [address] [place] [id number] Name: Venus Jaramillo RN Position: [facility] RN Member Role: Primary Care Nurse Name: Flor Donnelly RN Position: [facility] RN Member Role: Primary Care Nurse Name: Ruiz Matson RN Position: [facility] RN Member Role: Primary Care Nurse Name: Belle Ames RN Position: [facility] RN Member Role: Primary Care Nurse Name: Alex Rios RN Position: [facility] RN Member Role: Primary Care Nurse Name: Daniel Hernandez III, RN Position: [facility] RN Member Role: Primary Care Nurse Name: Jordi Carter MD Position: [facility] Renal MD Member Role: Lifetime Consulting Physician Address: Address: [address] [facility], [place] [address]- [place] Name: Loren Hamlin RN Position: [facility] RN Member Role: Primary Care Nurse Name: Malia Wise RN Position: [facility] RN Member Role: Primary Care Nurse Name: Lamine Lin MD Position: [facility] Physician - Primary Care Member Role: PCP Address: Address: [address] [place] [address]- [place] Name: Rose Abraham RN Position: [facility] Hospital Communications Manager Member Role: Primary Care Nurse Name: Vinod Botello MD Position: [facility] Physician - Behavioral Health Member Role: Lifetime Consulting Physician Address: Address: [address] [place] [address]- Care Team Related Persons Name: MALIA HARRIS Name: KATHLEEN JACQUES Address: home [address] [place] [address] Name: VIRGIL PARKS Address: home [address] [place] [address] Name: MICHAELA MONTENEGRO Address: home UNKNOWN Name: MIGUEL PUENTES Address: home [address] [place] [address]
--- OUTSIDE RECORDS SUMMARY | 2022-11-19 16:32 | XMS_ITS | Continuity of Care Document ---
Author Name Unknown Organization [facility] Address [address] [place] [address]- Care Team Providers Care Print Production Associate Name Role Phone Delia ACOSTA, Lamine Covington Primary Care Physician [facility]): 08/12/22 - 09/11/22 [facility] [address] [place] [address]- Allergies, Adverse Reactions, Alerts Substance Reaction Severity Status lisinopril dry cough Active Dust Mild Active Milk Products Nausea and vomiting Persistent Moderate Active cloNIDine confusion Active Immunizations Given and Recorded Vaccine Date Status Refusal Reason [id number] 12y+ bivalent booster vax 02/07/22 Given influenza [...] Refills, Maintenance, 06/06/22 16:49:00 EDT, [facility] [id number], 178, cm, 06/06/22 16:31:00 EDT, Height, 101.4, kg, 01/12/22 14:14:00 EST, Dry Weight Start Date: 06/06/22 Status: Ordered ferrous fumarate 324 mg oral tablet 1 tablet = 324 mg, By Mouth, Every 48 hours, # 15 tablet, 5 Refills, Maintenance, 06/06/22 16:37:00EDT, [facility] [id number], Partial fill upon patient request if the prescription is for a schedule II opioid drug., 178, cm,... Start Date: 06/06/22 Status: Ordered folic acid 1 mg oral tablet 1, tablet, By Mouth, Daily, # 30 tablet, Refills 5, Tot. Refills 5, Maintenance, 06/06/22 16:49:00 EDT, Route to Pharmacy Electronically, [facility] [id number], 178, cm, 06/06/22 16:31:00 EDT, Height, 101.4, kg, 01/12/22 14:14... Start Date: 06/06/22 Status: Ordered gabapentin 100 mg oral capsule TAKE 1 CAPSULE BY MOUTH 3 (THREE) TIMES A DAY Start Date: 07/26/22 Status: Ordered gabapentin 600 mg oral tablet 1 tablet = 600 mg, By Mouth, 3 times a day, # 90 tablet, 5 Refills, Maintenance, 06/06/22 16:41:00 EDT, Tablet, [facility] [id number], Partial fill upon patient request if the prescription is for a schedule II opioid drug., 17... Start Date: 06/06/22 Stop Date: 12/03/22 Status: Ordered loratadine 10 mg oral tablet See Instructions, TAKE 1 TABLET BY MOUTH ONCE DAILY, # 30 tablet, Refills 5, Tot. Refills 5, Maintenance, 09/06/22 22:51:00 EDT, Instructions Replace Required Details, Route to Pharmacy Electronically, [facility] [id number], 1... Start Date: 09/06/22 Status: Ordered MetFORMIN (Eqv-Glucophage XR) 500 mg oral tablet, extended release TAKE 1 TABLET BY MOUTH ONCE DAILY Start Date: 07/26/22 Status: Ordered MiraLax oral powder for reconstitution = 17 Gm, By Mouth, Daily, dissolve in water before taking, # 527 Gm, 1 Refills, Maintenance, 06/06/22 16:49:00 EDT, REC Powder, [facility] [id number], Partial fill upon patient request if the prescription is for a schedule II... Start Date: 06/06/22 Status: Ordered multivitamin Multiple Vitamins oral tablet 1 tablet, By Mouth, Daily, # 90 tablet, 3 Refills, Maintenance, 06/06/22 16:40:00 EDT, [facility] [id number], Partial fill upon patient request if the [...] sleep apnea, Complex sleep apnea Confirmed Active BHN/CCA/Powder Coater-Tia Kolby [phone]/Health group home, active care coordination Confirmed Active [...] Team Personnel Name: Ela Beltrán RN Position: [facility] AMB Nurse Member Role: Primary Care Nurse Name: Alaina Gillette RN Position: [facility] RN Member Role: Primary Care Nurse Name: Kristyn Tapia RN Position: [facility] RN Member Role: Primary Care Nurse Name: Lorna Gentile NP Position: [facility] Associate Professional Member Role: Primary Care Nurse Address: Address: [address] [place] [id number] Name: Venus Jaramillo RN Position: [facility] RN Member Role: Primary Care Nurse Name: Flor Donnelly RN Position: [facility] RN Member Role: Primary Care Nurse Name: Ruiz Matson RN Position: [facility] RN Member Role: Primary Care Nurse Name: Belle Ames RN Position: [facility] RN Member Role: Primary Care Nurse Name: Alex Rios RN Position: [facility] RN Member Role: Primary Care Nurse Name: Daniel Hernandez III, RN Position: [facility] RN Member Role: Primary Care Nurse Name: Jordi Carter MD Position: [facility] Renal MD Member Role: Lifetime Consulting Physician Address: Address: [address] [facility] [address] [facility] [place] [address]- [place] Name: Loren Hamlin RN Position: [facility] RN Member Role: Primary Care Nurse Name: Malia Wise RN Position: [facility] RN Member Role: Primary Care Nurse Name: Lamine Lin MD Position: [facility] Physician - Primary Care Member Role: PCP Address: Address: [address] [place] [address]- [place] Name: Rose Abraham RN Position: [facility] Hospital Security Guard Supervisor Member Role: Primary Care Nurse Name: Vinod Botello MD Position: [facility] Physician - Behavioral Health Member Role: Lifetime Consulting Physician Address: Address: [address] [place] [address]- Care Team Related Persons Name: MALIA HARRIS Name: KATHLEEN JACQUES Address: [address] [place] [address] Name: VIRGIL PARKS Address: home [address] [place] [address] Name: MICHAELA MONTENEGRO Address: home UNKNOWN Name: MIGUEL PUENTES Address: home [address] [place] [address]
--- OUTSIDE RECORDS SUMMARY | 2022-11-19 16:33 | XMS_ITS | Continuity of Care Document ---
Author Name Unknown Organization [facility] ter Address [address] [place] [address]- Care Team Providers Care Bookkeeping Clerk Name Role Phone Delia ACOSTA, Lamine Covington Primary Care Physician [phone] Encounter [facility] Date(s): 11/14/22 - 11/14/[address] [address]- Encounter Diagnosis Malingering(Final) - 11/14/22 Discharge Disposition: A-D/C Home Attending Physician: Shea Snowden MD Admitting Physician: Shea Snowden MD Referring Physician: Not on Staff, Referring MD Allergies, Adverse Reactions, Alerts Substance Reaction Severity Status lisinopril dry cough Active Dust Mild Active Milk Products Nausea and vomiting Persistent Moderate Active cloNIDine confusion Active Immunizations Given and Recorded Vaccine Date Status Refusal Reason [id number] 12y+ bivalent booster vax 02/07/22 Given influenza [...] each, 1 Refills, Maintenance, 06/06/22 16:49:00 EDT, [facility] [id number], 178, cm, 06/06/22 16:31:00 EDT, Height, 101.4, kg, 01/12/22 14:14:00 EST, Dry Weight Start Date: 06/06/22 Status: Ordered ferrous fumarate 324 mg oral tablet 1 tablet = 324 mg, By Mouth, Every 48 hours, # 15 tablet, 5 Refills, Maintenance, 06/06/22 16:37:00EDT, [facility] [id number], Partial fill upon patient request if the prescription is for a schedule II opioid drug., 178, cm,... Start Date: 06/06/22 Status: Ordered folic acid 1 mg oral tablet 1, tablet, By Mouth, Daily, # 30 tablet, Refills 5, Tot. Refills 5, Maintenance, 06/06/22 16:49:00 EDT, Route to Pharmacy Electronically, [facility] [id number], 178, cm, 06/06/22 16:31:00 EDT, Height, 101.4, kg, 01/12/22 14:14... Start Date: 06/06/22 Status: Ordered gabapentin 100 mg oral capsule TAKE 1 CAPSULE BY MOUTH 3 (THREE) TIMES A DAY Start Date: 07/26/22 Status: Ordered gabapentin 600 mg oral tablet 1 tablet = 600 mg, By Mouth, 3 times a day, # 90 tablet, 5 Refills, Maintenance, 06/06/22 16:41:00 EDT, Tablet, [facility] [id number], Partial fill upon patient request if the prescription is for a schedule II opioid drug., 17... Start Date: 06/06/22 Stop Date: 12/03/22 Status: Ordered loratadine 10 mg oral tablet See Instructions, TAKE 1 TABLET BY MOUTH ONCE DAILY, # 30 tablet, Refills 5, Tot. Refills 5, Maintenance, 09/06/22 22:51:00 EDT, Instructions Replace Required Details, Route to Pharmacy Electronically, [facility] [id number], 1... Start Date: 09/06/22 Status: Ordered MetFORMIN (Eqv-Glucophage XR) 500 mg oral tablet, extended release TAKE 1 TABLET BY MOUTH ONCE DAILY Start Date: 07/26/22 Status: Ordered MiraLax oral powder for reconstitution = 17 Gm, By Mouth, Daily, dissolve in water before taking, # 527 Gm, 1 Refills, Maintenance, 06/06/22 16:49:00 EDT, REC Powder, [facility] [id number], Partial fill upon patient request if the prescription is for a schedule II... Start Date: 06/06/22 Status: Ordered multivitamin Multiple Vitamins oral tablet 1 tablet, By Mouth, Daily, # 90 tablet, 3 Refills, Maintenance, 06/06/22 16:40:00 EDT, [facility] [id number], Partial fill upon patient request if the [...] sleep apnea, Complex sleep apnea Confirmed Active BHN/CCA/Glass Blower Helper-Tia Jarrett [phone]/Health fpc, active care coordination Confirmed Active Treatment-emergent central [...] 3 Oxygen Saturation [94-100 %] 98 % (11/14/22 9:00 PM) 100 % (11/14/22 7:36 PM) 98 % (11/14/22 1:27 PM) Pulse Rate [55-90 bpm] 78 bpm (11/14/22 9:00 PM) 80 bpm (11/14/22 7:36 PM) 73 bpm (11/14/22 1:27 PM) Blood Pressure [90-138/55-84 mm Hg] 121/75mm Hg (11/14/22 9:00 PM) 132/83mm Hg (11/14/22 7:36 PM) 152/109mm Hg *H* (11/14/22 1:27 PM) Respiratory Rate [16-30 br/min] 19 br/min (11/14/22 9:00 PM) 16 br/min (11/14/22 7:36 PM) 16 br/min (11/14/22 1:27 PM) Temperature [96.8-100.4 DegF] 97.5 DegF (11/14/22 9:00 PM) Mode of Delivery (Oxygen) Room air (11/14/22 9:00 PM) Room air (11/14/22 7:36 PM) Room air (11/14/22 1:27 PM) Blood pressure sites Arm, left (11/14/22 9:00 PM) Arm, right (11/14/22 1:27 PM) Temperature Route Oral (11/14/22 9:00 PM) Dry Weight 111.5 kg (11/14/22 9:00 PM) 111.5 kg (11/14/22 5:25 PM) 111.5 kg (11/14/22 1:54 PM) Dry Weight Obtained Via Patient/family s tated (11/14/22 1:27 PM) Social History Social History Type Response Smoking Status Never smoker entered on: 10/02/13 Sex Note * Obed ACOSTA, Anneliese: PERFORM Event Display: Patient Education Leaflets Authored Date: [id number] Schizophrenia, General ?? [id number] Esquizofrenia, tipo general La esquizofrenia es un trastorno mental cr??tu grave, generalmente incapacitante, que dificulta el desempe??o laboral y la bassam en sociedad. La distinci??n entre realidad y lo que usted piensa que es real se puede volver confusa en regan mente. La esquizofrenia no es blanc com??n stefania otros problemas de aden mental graves, seamus puede tener un efecto incapacitante grave sobre la persona. Generalmente, aparece por primera vez en la adolescencia y en las primeras etapas de la adultez. Antes de hacerun diagn??stico, se debe producir yareli o m??s brotes de s??ntomas axel al menos 6??meses. La causa de la esquizofrenia a??n se desconoce. Se christiana que es el resultado de factores gen??ticos y biol??gicos (qu??laron y estructura cerebral). La esquizofrenia es hereditaria y ocurre en aproximadamente 1??de cada 100??adultos. Es posible que determinados factores ambientales tambi??n influyan en la esquizofrenia. Entre estos factores, se pueden incluir el lugar en el que creci??, las toxinasa las que estuvo expuesto y las infecciones que tuvo. Entre los s??ntomas, se incluyen los siguientes: ??? Perder el contacto con la realidad (psicosis) ??? Rosa cosas u o??r voces que no est??n presentes (alucinaciones) ??? Creencias falsas (delirio) ??? Habla y pensamientos desorganizados ??? Ansiedad grave ??? Sensaci??n de irrealidad ??? Paranoia ??? Insomnio ??? Dificultades para pensar con claridad o concentrarse ??? Depresi??n o pensamientos suicidas ??? Alejamiento de las personas que lo rodean (aislamiento social) ??? Rango limitado de emociones (apat??a) ??? Dificultades para razonar y resolver problemas (d??ficit cognitivo) ??? Problemas en el trabajo debido a los s??ntomas anteriores Los medicamentos y la terapia pueden ayudar con muchos de los s??ntomas. Pueden permitir un mejor funcionamiento diario y caleb mejor calidad de bassam. Estos medicamentos pueden tardar 2??a 4??semanas en empezar a funcionar y 6??a 8??semanas en tener efecto completo. Debido a que la esquizofrenia es compleja y grave, el tratamiento tambi??n es complejo. Puede incluir psicoterapia continua, redes de recursos de la comunidad y programas de rehabilitaci??n tales stefania capacitaci??n ocupacional. Es com??n sentir que yareli no est?? enfermo y que no necesita tratamiento. Es importante aceptar el apoyo de amigos y familiares para seguir tomando geneva medicamentos, continuar con la psicoterapia y usar los recursos comunitarios sugeridos. Cuidados en el hogar ??? La atenci??n y el apoyo constantes ayudan a controlar esta enfermedad. Busque un proveedor de atenci??n m??dica y un terapeuta que atiendan geneva necesidades. Pida ayuda cuandosienta que los s??ntomas empeoran, o cuando los familiares y amigos le piden que busque ayuda. ??? Recuerde informarles a los proveedores de atenci??n m??dica todos los medicamentos recetados, de venta dom, y las vitaminas y los suplementos que ingiere. Existen determinados suplementos que interact??an con los medicamentos y pueden provocar efectos secundarios peligrosos. Consulte con el farmac??utico si tiene alguna ida acerca de las interacciones medicamentosas. En rosette de beber alcohol, informe a regan proveedor la frecuencia con la que dez y la cantidad. ??? Aseg??rese de ingerir todos los medicamentos seg??n las indicaciones del m??dico y de hacerse an??lisis de lior de manera cherelle??dica para controlar los niveles de medicamento y regan estado de aden general. Hartrandt geneva medicamentos y h??gase los an??lisis de laboratorio de control harrison stefania le indicaron, incluso si usted christiana que no los necesita. Nunca cambie la dosis de regan medicamento ni deje de eric los medicamentos sin antes hablar con regan proveedor. Nunca comparta los medicamentos ni use los medicamentos de otras personas. ??? Busque el apoyo de geneva familiares y amigos de confianza al hablarles sobre geneva sentimientos y geneva pensamientos. P??dales que lo ayuden a reconocer los cambios de comportamiento para que pueda solicitar ayuda cuanto antes. Si es necesario, regan proveedor de atenci??n m??dica puede realizar ajustes en la administraci??n de los medicamentos. ??? Si tiene dificultades para manejar las situaciones enel ??mbito de trabajo o para cuidarse debido a la esquizofrenia, comun??quese con la secretar??a local para Estadounidenses con Discapacidades (ADA, por regan sigla en ingl??s). El Departamento de Justicia de [place] tiene caleb l??wesley gratuita de informaci??n sobre la ADA: [phone] (voz) o [phone] (TTY). Tambi??n puede consultar el sitio web de la ADA: www.ada.gov. Los operadores pueden ayud karen a encontrar regan secretar??a local. ?? Atenci??n de seguimiento Madeline caleb consulta de seguimiento con el proveedor de atenci??n m??dica, o seg??n le hayan indicado. ?? Cu??ndo llamar al??988 Llame al?? 988 si sucede lo siguiente: ??? Tiene pensamientos suicidas, un plan suicida y los medios para llevar a cabo dicho plan ??? Tiene dificultad para respirar ??? Se siente muy confundido ??? Se siente adormecido o tiene dificultades para despertarse ??? Se desmaya o pierde el conocimiento ??? Presenta frecuencia card??ian acelerada, muy baja o irregular ??? Tiene convulsiones Cuando llame o env??e un mensaje de texto al?? 988, se lo pondr?? en contacto con consejeros de crisis capacitados. Tambi??n hay disponible caleb opci??n de chat en l??wesley. La l??wesley es gratuita y funciona las 24??horas, los 7??d??as de la semana. Los consejeros del?? 988 trabajan en conjunto con el?? 911 para que usted reciba la asistencia que necesita. ?? Cu??ndo debe buscar atenci??n m??dica Llame al proveedor de atenci??n m??dica de inmediato ante cualquiera de las siguientes situaciones:??? Los s??ntomas empeoran ??? Regan adrien o amigos manifiestan preocupaci??n por regan comportamiento y le solicitan que busque ayuda ??? Se siente fuera de control o que otros lo est??n controlando ???Sensaci??n de deseo de hacerse da??o o da??ar a otra persona ??? Incapacidad de cuidarse a usted mismo ??? Alucinaciones que empeoran ??? Delirios o paranoia que empeoran ??? Escucha voces que le indican que debe hacerse da??o o lastimar a otros ??? Ansiedad o depresi??n que empeora ??? S??ntomas nuevos ?? Last Reviewed Date: 2020 ?? [id number] [employer]. Todos los derechos reservados. Esta informaci??n no pretende sustituir la atenci??n m??dica profesional. S??lo regan m??dico puede diagnosticar y tratar un problema de aden. ?? Patient Care team information Care Team Personnel Name: Ela Beltrán RN Position: [facility] Nurse Member Role: Primary Care Nurse Name: Alaina Gillette RN Position: [facility] RN Member Role: Primary Care Nurse Name: Kristyn Tapia RN Position: [facility] SN RN Member Role: Primary Care Nurse Name: Lorna Gentile NP Position: [facility] Associate Professional Member Role: Primary Care Nurse Address: Address: [address] [place] [address]- Name: Flor Donnelly RN Position: [facility] RN Member Role: Primary Care Nurse Name: Ruiz Matson RN Position: [facility] RN Member Role: Primary Care Nurse Name: Belle Ames RN Position: [facility] RN Member Role: Primary Care Nurse Name: Alex Rios RN Position: [facility] RN Member Role: Primary Care Nurse Name: Daniel Hernandez III, RN Position: [facility] RN Member Role: Primary Care Nurse Name: Jordi Carter MD Position: [facility] Renal MD Member Role: Lifetime Consulting Physician Address: Address: [address] [place] [address] [address] [facility] [place] [place] [address]- [place] Name: Loren Hamlin RN Position: [facility] RN Member Role: Primary Care Nurse Name: Malia Wise RN Position: [facility] RN Member Role: Primary Care Nurse Name: Lamine Lin MD Position: [facility] Physician - Primary Care Member Role: PCP Address: Address: [address] [facility] [place] [address]- [place] Name: Rose Abraham RN Position: [facility] Hospital Head Animal Trainer Member Role: Primary Care Nurse Name: Vinod Botello MD Position: [facility] Physician - Behavioral Health Member Role: Lifetime Consulting Physician Address: Address: [address] [place] [address]- Name: Beto Stroud Position: [facility] ED TA [facility] Member Role: Therapy Administrative Assistant Name: Anneliese Clay MD Position: [facility] Resident Member Role: ED Resident Address: Address: [address] [place] [address]- Name: Papa Bojorquez RN Position: [facility] ED RN W/OE and Tasks Member Role: Patient Care Provider Name: Shea Snowden MD Position: [facility] ED Medicine MD Member Role: Admitting Physician Address: Address: [address] [place] [address]- Care Team Related Persons Name: MALIA HARRIS Name: KATHLEEN JACQUES Address: home [address] [place] [address] Name: VIRGIL PARKS Address: home [address] [place] [address] Name: MICHAELA MONTENEGRO Address: home UNKNOWN Name: MIGUEL PUENTES Address: home [address] [place] [address]
--- OUTSIDE RECORDS SUMMARY | 2022-11-19 16:33 | XMS_ITS | Continuity of Care Document ---
Author Name Unknown Organization [facility] Address [address] [place] [address]- Care Team Providers Care Materials Planning Analyst Name Role Phone Lamine Lin MD Primary Care Physician Encounter [facility] [place] Date(s): 09/19/22 - 11/02/22 [facility] [address] [place] [address]- Attending Physician: Not on Staff, Attending MD Allergies, Adverse Reactions, Alerts Substance Reaction Severity Status lisinopril dry cough Active Dust Mild Active Milk Products Nausea and vomiting Persistent Moderate Active cloNIDine confusion Active Immunizations Given and Recorded Vaccine Date Status Refusal Reason [id number] 12y+ bivalent booster vax 02/07/22 Given influenza [...] Refills, Maintenance, 06/06/22 16:49:00 EDT, [facility] [id number], 178, cm, 06/06/22 16:31:00 EDT, Height, 101.4, kg, 01/12/22 14:14:00 EST, Dry Weight Start Date: 06/06/22 Status: Ordered ferrous fumarate 324 mg oral tablet 1 tablet = 324 mg, By Mouth, Every 48 hours, # 15 tablet, 5 Refills, Maintenance, 06/06/22 16:37:00EDT, [facility] [id number], Partial fill upon patient request if the prescription is for a schedule II opioid drug., 178, cm,... Start Date: 06/06/22 Status: Ordered folic acid 1 mg oral tablet 1, tablet, By Mouth, Daily, # 30 tablet, Refills 5, Tot. Refills 5, Maintenance, 06/06/22 16:49:00 EDT, Route to Pharmacy Electronically, [facility] [id number], 178, cm, 06/06/22 16:31:00 EDT, Height, 101.4, kg, 01/12/22 14:14... Start Date: 06/06/22 Status: Ordered gabapentin 100 mg oral capsule TAKE 1 CAPSULE BY MOUTH 3 (THREE) TIMES A DAY Start Date: 07/26/22 Status: Ordered gabapentin 600 mg oral tablet 1 tablet = 600 mg, By Mouth, 3 times a day, # 90 tablet, 5 Refills, Maintenance, 06/06/22 16:41:00 EDT, Tablet, [facility] [id number], Partial fill upon patient request if the prescription is for a schedule II opioid drug., 17... Start Date: 06/06/22 Stop Date: 12/03/22 Status: Ordered loratadine 10 mg oral tablet See Instructions, TAKE 1 TABLET BY MOUTH ONCE DAILY, # 30 tablet, Refills 5, Tot. Refills 5, Maintenance, 09/06/22 22:51:00 EDT, Instructions Replace Required Details, Route to Pharmacy Electronically, [facility] [id number], 1... Start Date: 09/06/22 Status: Ordered MetFORMIN (Eqv-Glucophage XR) 500 mg oral tablet, extended release TAKE 1 TABLET BY MOUTH ONCE DAILY Start Date: 07/26/22 Status: Ordered MiraLax oral powder for reconstitution = 17 Gm, By Mouth, Daily, dissolve in water before taking, # 527 Gm, 1 Refills, Maintenance, 06/06/22 16:49:00 EDT, REC Powder, [facility] [id number], Partial fill upon patient request if the prescription is for a schedule II... Start Date: 06/06/22 Status: Ordered multivitamin Multiple Vitamins oral tablet 1 tablet, By Mouth, Daily, # 90 tablet, 3 Refills, Maintenance, 06/06/22 16:40:00 EDT, [facility] [id number], Partial fill upon patient request if the [...] sleep apnea, Complex sleep apnea Confirmed Active BHN/CCA/Supervisor Sawmill-Tia Kolby [phone]/Health fdc, active care coordination Confirmed Active Treatment-emergent [...] Team Personnel Name: Ela Beltrán RN Position: [facility] Nurse Member Role: Primary Care Nurse Name: Alaina Gillette RN Position: [facility] RN Member Role: Primary Care Nurse Name: Kristyn Tapia RN Position: [facility] RN Member Role: Primary Care Nurse Name: Lorna Gentile NP Position: [facility] Associate Professional Member Role: Primary Care Nurse Address: Address: [address] [place] [address] Name: Venus Jaramillo RN Position: [facility] RN Member Role: Primary Care Nurse Name: Flor Donnelly RN Position: [facility] RN Member Role: Primary Care Nurse Name: Ruiz Matson RN Position: [facility] RN Member Role: Primary Care Nurse Name: Belle Ames RN Position: [facility] RN Member Role: Primary Care Nurse Name: Alex Rios RN Position: [facility] ED RN W/OE and Tasks Member Role: Primary Care Nurse Name: Daniel Hernandez III, RN Position: [facility] RN Member Role: Primary Care Nurse Name: Jordi Carter MD Position: [facility] Renal MD Member Role: Lifetime Consulting Physician Address: Address: [address] [facility] [address] [facility] [place] [address]- [place] Name: Loren Hamlin RN Position: [facility] RN Member Role: Primary Care Nurse Name: Malia Wise RN Position: [facility] RN Member Role: Primary Care Nurse Name: Lamine Lin MD Position: [facility] Physician - Primary Care Member Role: PCP Address: Address: [address] [facility] [place] [address]- [place] Name: Rose Abraham RN Position: [facility] Hospital Energy Systems Laboratory Director Member Role: Primary Care Nurse Name: Vinod Botello MD Position: [facility] Physician - Behavioral Health Member Role: Lifetime Consulting Physician Address: Address: [address] [place] [address]- Care Team Related Persons Name: MALIA HARRIS Name: KATHLEEN JACQUES Address: home [address] [place] [address] Name: VIRGIL PARKS Address: home [address] [place] [address] Name: MICHAELA MONTENEGRO Address: home UNKNOWN Name: MIGUEL PUENTES Address: home [address] [place] [address]
--- OUTSIDE RECORDS SUMMARY | 2022-11-19 16:35 | XMS_ITS | Continuity of Care Document ---
Author Name Unknown Organization [facility] Address [address] [place] [address]- Care Team Providers Care Cafe Helper Name Role Phone Delia ACOSTA, Lamine Covington Primary Care Physician [place] [facility] [place] 09[place]14[place]22 [facility] [address] [place] [address]- Allergies, Adverse Reactions, Alerts Substance Reaction Severity Status lisinopril dry cough Active Dust Mild Active Milk Products Nausea and vomiting Persistent Moderate Active cloNIDine confusion Active Immunizations Given and Recorded Vaccine Date Status Refusal Reason [id number] 12y+ bivalent booster vax 02/07/22 Given influenza [...] each, 1 Refills, Maintenance, 06/06/22 16:49:00 EDT, [facility] [id number], 178, cm, 06/06/22 16:31:00 EDT, Height, 101.4, kg, 01/12/22 14:14:00 EST, Dry Weight Start Date: 06/06/22 Status: Ordered ferrous fumarate 324 mg oral tablet 1 tablet = 324 mg, By Mouth, Every 48 hours, # 15 tablet, 5 Refills, Maintenance, 06/06/22 16:37:00EDT, [facility] [id number], Partial fill upon patient request if the prescription is for a schedule II opioid drug., 178, cm,... Start Date: 06/06/22 Status: Ordered folic acid 1 mg oral tablet 1, tablet, By Mouth, Daily, # 30 tablet, Refills 5, Tot. Refills 5, Maintenance, 06/06/22 16:49:00 EDT, Route to Pharmacy Electronically, [facility] [id number], 178, cm, 06/06/22 16:31:00 EDT, Height, 101.4, kg, 01/12/22 14:14... Start Date: 06/06/22 Status: Ordered gabapentin 100 mg oral capsule TAKE 1 CAPSULE BY MOUTH 3 (THREE) TIMES A DAY Start Date: 07/26/22 Status: Ordered gabapentin 600 mg oral tablet 1 tablet = 600 mg, By Mouth, 3 times a day, # 90 tablet, 5 Refills, Maintenance, 06/06/22 16:41:00 EDT, Tablet, [facility] [id number], Partial fill upon patient request if the prescription is for a schedule II opioid drug., 17... Start Date: 06/06/22 Stop Date: 12/03/22 Status: Ordered loratadine 10 mg oral tablet See Instructions, TAKE 1 TABLET BY MOUTH ONCE DAILY, # 30 tablet, Refills 5, Tot. Refills 5, Maintenance, 09/06/22 22:51:00 EDT, Instructions Replace Required Details, Route to Pharmacy Electronically, [facility] [id number], 1... Start Date: 09/06/22 Status: Ordered MetFORMIN (Eqv-Glucophage XR) 500 mg oral tablet, extended release TAKE 1 TABLET BY MOUTH ONCE DAILY Start Date: 07/26/22 Status: Ordered MiraLax oral powder for reconstitution = 17 Gm, By Mouth, Daily, dissolve in water before taking, # 527 Gm, 1 Refills, Maintenance, 06/06/22 16:49:00 EDT, REC Powder, [facility] [id number], Partial fill upon patient request if the prescription is for a schedule II... Start Date: 06/06/22 Status: Ordered multivitamin Multiple Vitamins oral tablet 1 tablet, By Mouth, Daily, # 90 tablet, 3 Refills, Maintenance, 06/06/22 16:40:00 EDT, [facility] [id number], Partial fill upon patient request if the [...] sleep apnea, Complex sleep apnea Confirmed Active BHN/CCA/Gift Packer-Tia Kolby [phone]/Health skilled nursing, active care coordination Confirmed Active [...] Name: Ela Beltrán RN Position: [facility] Nurse Member Role: Primary Care Nurse Name: Alaina Gillette RN Position: [facility] RN Member Role: Primary Care Nurse Name: Kristyn Tapia RN Position: [facility] RN Member Role: Primary Care Nurse Name: Lorna Gentile NP Position: [facility] Associate Professional Member Role: Primary Care Nurse Address: Address: [address] [place] [id number] Name: Venus Jaramillo RN Position: [facility] RN Member Role: Primary Care Nurse Name: Flor Donenlly RN Position: [facility] RN Member Role: Primary Care Nurse Name: Ruiz Matson RN Position: [facility] RN Member Role: Primary Care Nurse Name: Belle Ames RN Position: [facility] RN Member Role: Primary Care Nurse Name: Alex Rios RN Position: [facility] RN Member Role: Primary Care Nurse Name: Daniel Hernandez III, RN Position: [facility] RN Member Role: Primary Care Nurse Name: Jordi Carter MD Position: [facility] Renal MD Member Role: Lifetime Consulting Physician Address: Address: [address] [facility] [address] [facility] [place] [address]- [place] Name: Loren Hamlin RN Position: [facility] RN Member Role: Primary Care Nurse Name: Malia Wise RN Position: [facility] RN Member Role: Primary Care Nurse Name: Lamine Lin MD Position: [facility] Physician - Primary Care Member Role: PCP Address: Address: [address] [place] [address]- [place] Name: Rose Abraham RN Position: [facility] Hospital Indoor Plant Technician Member Role: Primary Care Nurse Name: Vinod Botello MD Position: [facility] Physician - Behavioral Health Member Role: Lifetime Consulting Physician Address: Address: [address] [place] [address]- Care Team Related Persons Name: MALIA HARRIS Name: KATHLEEN JACQUES Address: home [address] [place] [address] Name: VIRGIL PARKS Address: home [address] [place] [address] Name: MICHAELA MONTENEGRO Address: home UNKNOWN Name: MIGUEL PUENTES Address: home [address] [place] [address]
--- OUTSIDE RECORDS SUMMARY | 2022-11-19 16:35 | XMS_ITS | Continuity of Care Document ---
Author Name Unknown Organization [facility] ter Address [address] [place] [address]- Care Team Providers Care Accounts Supervisor Name Role Phone Delia ACOSTA, Lamine Covington Primary Care Physician [place] [facility] [place] - 11/14/[address] [address]- Discharge Disposition: A-D/C Home Attending Physician: Debra Maldonado DO Admitting Physician: Debra Maldonado DO Referring Physician: Not on Staff, Referring MD Allergies, Adverse Reactions, Alerts Substance Reaction Severity Status lisinopril dry cough Active Dust Mild Active Milk Products Nausea and vomiting Persistent Moderate Active cloNIDine confusion Active Immunizations Given and Recorded Vaccine Date Status Refusal Reason [id number] 12y+ bivalent booster vax 02/07/22 Given influenza [...] each, 1 Refills, Maintenance, 06/06/22 16:49:00 EDT, [facility] [id number], 178, cm, 06/06/22 16:31:00 EDT, Height, 101.4, kg, 01/12/22 14:14:00 EST, Dry Weight Start Date: 06/06/22 Status: Ordered ferrous fumarate 324 mg oral tablet 1 tablet = 324 mg, By Mouth, Every 48 hours, # 15 tablet, 5 Refills, Maintenance, 06/06/22 16:37:00EDT, [facility] [id number], Partial fill upon patient request if the prescription is for a schedule II opioid drug., 178, cm,... Start Date: 06/06/22 Status: Ordered folic acid 1 mg oral tablet 1, tablet, By Mouth, Daily, # 30 tablet, Refills 5, Tot. Refills 5, Maintenance, 06/06/22 16:49:00 EDT, Route to Pharmacy Electronically, [facility] [id number], 178, cm, 06/06/22 16:31:00 EDT, Height, 101.4, kg, 01/12/22 14:14... Start Date: 06/06/22 Status: Ordered gabapentin 100 mg oral capsule TAKE 1 CAPSULE BY MOUTH 3 (THREE) TIMES A DAY Start Date: 07/26/22 Status: Ordered gabapentin 600 mg oral tablet 1 tablet = 600 mg, By Mouth, 3 times a day, # 90 tablet, 5 Refills, Maintenance, 06/06/22 16:41:00 EDT, Tablet, [facility] [id number], Partial fill upon patient request if the prescription is for a schedule II opioid drug., 17... Start Date: 06/06/22 Stop Date: 12/03/22 Status: Ordered loratadine 10 mg oral tablet See Instructions, TAKE 1 TABLET BY MOUTH ONCE DAILY, # 30 tablet, Refills 5, Tot. Refills 5, Maintenance, 09/06/22 22:51:00 EDT, Instructions Replace Required Details, Route to Pharmacy Electronically, [facility] [id number], 1... Start Date: 09/06/22 Status: Ordered MetFORMIN (Eqv-Glucophage XR) 500 mg oral tablet, extended release TAKE 1 TABLET BY MOUTH ONCE DAILY Start Date: 07/26/22 Status: Ordered MiraLax oral powder for reconstitution = 17 Gm, By Mouth, Daily, dissolve in water before taking, # 527 Gm, 1 Refills, Maintenance, 06/06/22 16:49:00 EDT, REC Powder, [facility] [id number], Partial fill upon patient request if the prescription is for a schedule II... Start Date: 06/06/22 Status: Ordered multivitamin Multiple Vitamins oral tablet 1 tablet, By Mouth, Daily, # 90 tablet, 3 Refills, Maintenance, 06/06/22 16:40:00 EDT, [facility] [id number], Partial fill upon patient request if the [...] sleep apnea, Complex sleep apnea Confirmed Active BHN/CCA/Knowledge Analyst-Tia Kolby [phone]/Health longterm, active care coordination Confirmed Active Treatment-emergent [...] Oxygen Saturation [94-100 %] 98 % (11/14/22 5:15 AM) 98 % (11/14/22 1:27 AM) 98 % (11/13/22 7:17 PM) Pulse Rate [55-90 bpm] 88 bpm (11/14/22 5:15 AM) 86 bpm (11/14/22 1:27 AM) 85 bpm (11/13/22 7:17 PM) Blood Pressure [90-138/55-84 mm Hg] 148/88mm Hg *H* (11/14/22 5:15 AM) 146/93mm Hg *H* (11/14/22 1:27 AM) 158/95mm Hg *H* (11/13/22 7:17 PM) Respiratory Rate [16-30 br/min] 18 br/min (11/14/22 5:15 AM) 18 br/min (11/14/22 1:27 AM) 16 br/min (11/13/22 7:17 PM) Temperature [96.8-100.4 DegF] 98.8 DegF (11/13/22 7:17 PM) 99.5 DegF (11/13/22 3:18 PM) Mode of Delivery (Oxygen) Room air (11/14/22 5:15 AM) Room air (11/14/22 1:27 AM) Room air (11/13/22 7:17 PM) Blood pressure sites Arm, left (11/14/22 5:15 AM) Arm, right (11/14/22 1:27 AM) Arm, right (11/13/22 7:17 PM) Temperature Route Oral (11/13/22 7:17 PM) Oral (11/13/22 3:18 PM) Social History Social History Type Response Smoking Status Never smoker entered on: 10/02/13 Sex Patient Care team information Care Team Personnel Name: Ela Beltrán RN Position: [facility] Nurse Member Role: Primary Care Nurse Name: Alaina Gillette RN Position: [facility] RN Member Role: Primary Care Nurse Name: Kristyn Tapia RN Position: [facility] SN RN Member Role: Primary Care Nurse Name: Lorna Gentile NP Position: [facility] Associate Professional Member Role: Primary Care Nurse Address: Address: [address] [place] [id number] Name: Flor Donnelly RN Position: S RN Member Role: Primary Care Nurse Name: Ruiz Matson RN Position: [facility] RN Member Role: Primary Care Nurse Name: Belle Ames RN Position: [facility] RN Member Role: Primary Care Nurse Name: Alex Rios RN Position: S RN Member Role: Primary Care Nurse Name: Daniel Hernandez III, RN Position: [facility] RN Member Role: Primary Care Nurse Name: Jordi Carter MD Position: [facility] Renal MD Member Role: Lifetime Consulting Physician Address: Address: [address] [facility] [place] [address]- [place] Name: Loren Hamlin RN Position: [facility] RN Member Role: Primary Care Nurse Name: Malia Wise RN Position: [facility] RN Member Role: Primary Care Nurse Name: Lamine Lin MD Position: [facility] Physician - Primary Care Member Role: PCP Address: Address: [address] [place] [address]- [place] Name: Rose Abraham RN Position: [facility] Hospital Paralegal Legal Secretary Member Role: Primary Care Nurse Name: Vinod Botello MD Position: [facility] Physician - Behavioral Health Member Role: Lifetime Consulting Physician Address: Address: [address] [place] [address]- [place] Name: Rena Saha RN Position: [facility] ED RN W/OE and Tasks Member Role: Patient Care Provider Name: Debra Maldonado DO Position: [facility] ED Medicine MD Member Role: ED Attending Physician Address: Address: [address] [place] [address]- [place] Name: Cricket Bay MD Position: [facility] Resident Member Role: ED Resident Address: Address: [address] [place] [address]- [place] Name: Lianne Hamm Position: [facility] ED TA [facility] Member Role: Patient Care Provider Care Team Related Persons Name: MALIA HARRIS Name: KATHLEEN JACQUES Address: home [address] [place] [address] Name: VIRGIL PARKS Address: home [address] [place] [address] Name: MICHAELA MONTENEGRO Address: home UNKNOWN Name: MIGUEL PUENTES Address: home [address] [place] [address]
--- OUTSIDE RECORDS SUMMARY | 2022-11-19 16:35 | XMS_ITS | Continuity of Care Document ---
Author Name Unknown Organization [facility] Address [address] [place] [address]- Care Team Providers Care Deodorizer Operator Name Role Phone Delia ACOSTA, Lamine Covington Primary Care Physician En[place] [facility] [place] Date(s): 10/03/22 - 11/02/22 [facility] [address] [place] [address]- Attending Physician: Marsha Ron Admitting Physician: AdmMarsha bourne Referring Physician: AdmtrMarsha Allergies, Adverse Reactions, Alerts Substance Reaction Severity Status lisinopril dry cough Active Dust Mild Active Milk Products Nausea and vomiting Persistent Moderate Active cloNIDine confusion Active Immunizations Given and Recorded Vaccine Date Status Refusal Reason [id number] 12y+ bivalent booster vax 02/07/22 Given influenza [...] Maintenance, 06/06/22 16:49:00 EDT, [facility] [id number], 178, cm, 06/06/22 16:31:00 EDT, Height, 101.4, kg, 01/12/22 14:14:00 EST, Dry Weight Start Date: 06/06/22 Status: Ordered ferrous fumarate 324 mg oral tablet 1 tablet = 324 mg, By Mouth, Every 48 hours, # 15 tablet, 5 Refills, Maintenance, 06/06/22 16:37:00EDT, [facility] [id number], Partial fill upon patient request if the prescription is for a schedule II opioid drug., 178, cm,... Start Date: 06/06/22 Status: Ordered folic acid 1 mg oral tablet 1, tablet, By Mouth, Daily, # 30 tablet, Refills 5, Tot. Refills 5, Maintenance, 06/06/22 16:49:00 EDT, Route to Pharmacy Electronically, [facility] [id number], 178, cm, 06/06/22 16:31:00 EDT, Height, 101.4, [...] 06/06/22 16:41:00 EDT, Tablet, [facility] [id number], Partial fill upon patient request if the prescription is for a schedule II opioid drug., 17... Start Date: 06/06/22 Stop Date: 12/03/22 Status: Ordered loratadine 10 mg oral tablet See Instructions, TAKE 1 TABLET BY MOUTH ONCE DAILY, # 30 tablet, Refills 5, Tot. Refills 5, Maintenance, 09/06/22 22:51:00 EDT, Instructions Replace Required Details, Route to Pharmacy Electronically, [facility] [id number], 1... Start Date: 09/06/22 Status: Ordered MetFORMIN (Eqv-Glucophage XR) 500 mg oral tablet, extended release TAKE 1 TABLET BY MOUTH ONCE DAILY Start Date: 07/26/22 Status: Ordered MiraLax oral powder for reconstitution = 17 Gm, By Mouth, Daily, dissolve in water before taking, # 527 Gm, 1 Refills, Maintenance, 06/06/22 16:49:00 EDT, REC Powder, [facility] [id number], Partial fill upon patient request if the prescription is for a schedule II... Start Date: 06/06/22 Status: Ordered multivitamin Multiple Vitamins oral tablet 1 tablet, By Mouth, Daily, # 90 tablet, 3 Refills, Maintenance, 06/06/22 16:40:00 EDT, [facility] [id number], Partial fill upon patient request if the [...] sleep apnea, Complex sleep apnea Confirmed Active BHN/CCA/Surgical Product Sales Consultant-Tia Kolby [phone]/Health group home, active care coordination Confirmed Active [...] Event Display: Radiology Results Scanned Authored Date: [id number] Note * Vivian Monaco: PERFORM Event Display: Nursing Discharge Status Report Authored Date: [id number] Patient Care team information Care Team Personnel Name: Ela Beltrán RN Position: [facility] AMB Nurse Member Role: Primary Care Nurse Name: Alaina Gillette RN Position: [facility] RN Member Role: Primary Care Nurse Name: Kristyn Tapia RN Position: [facility] SN RN Member Role: Primary Care Nurse Name: Lorna Gentile NP Position: [facility] Associate Professional Member Role: Primary Care Nurse Address: Address: [address] [place] [address]- [place] Name: Venus Jaramillo RN Position: [facility] RN Member Role: Primary Care Nurse Name: Flor Donnelly RN Position: [facility] RN Member Role: Primary Care Nurse Name: Ruiz Matson RN Position: [facility] RN Member Role: Primary Care Nurse Name: Belle Ames RN Position: [facility] RN Member Role: Primary Care Nurse Name: Blanca RNAlex Position: [facility] ED RN W/OE and Tasks Member Role: Primary Care Nurse Name: Daniel Hernandez III, RN Position: [facility] RN Member Role: Primary Care Nurse Name: Jordi Carter MD Position: [facility] Renal MD Member Role: Lifetime Consulting Physician Address: Address: [address] [facility] [facility] [address] [facility] [place] [address]- [place] Name: Loren Hamlin RN Position: [facility] RN Member Role: Primary Care Nurse Name: Malia Wise RN Position: [facility] RN Member Role: Primary Care Nurse Name: Lamine Lin MD Position: [facility] Physician - Primary Care Member Role: PCP Address: Address: [address] [place] [address]- [place] Name: Rose Abraham RN Position: [facility] Glove Wrapper Member Role: Primary Care Nurse Name: Vinod Botello MD Position: [facility] Physician - Behavioral Health Member Role: Lifetime Consulting Physician Address: Address: [address] [place] [address]- [place] Care Team Related Persons Name: MALIA HARRIS Name: KATHLEEN JACQUES Address: home [address] [place] [address] Name: VIRGIL PARKS Address: home [address] [place] [address] Name: MICHAELA MONTENEGRO Address: home UNKNOWN Name: MIGUEL PUENTES Address: home [address] [place] [address]
--- OUTSIDE RECORDS SUMMARY | 2022-11-19 16:36 | XMS_ITS | Continuity of Care Document ---
Author Name Unknown Organization [facility] Address [address] [place] [address]- Care Team Providers Care Planning Analyst Name Role Phone Lamine Lin MD Primary Care Physician [phone] Encounter [facility] [place] Date(s): 11/14/22 - 11/14/[address] [address]- Discharge Disposition: A-D/C Walkout Attending Physician: Not on Staff, Attending MD Admitting Physician: Not on Staff, Admitting MD Referring Physician: Not on Staff, Referring MD Allergies, Adverse Reactions, Alerts Substance Reaction Severity Status lisinopril dry cough Active Dust Mild Active Milk Products Nausea and vomiting Persistent Moderate Active cloNIDine confusion Active Immunizations Given and Recorded Vaccine Date Status Refusal Reason [id number] 12y+ bivalent booster vax 02/07/22 Given influenza [...] each, 1 Refills, Maintenance, 06/06/22 16:49:00 EDT, [facility] [place] [facility] [id number], 178, cm, 06/06/22 16:31:00 EDT, Height, 101.4, kg, 01/12/22 14:14:00 EST, Dry Weight Start Date: 06/06/22 Status: Ordered ferrous fumarate 324 mg oral tablet 1 tablet = 324 mg, By Mouth, Every 48 hours, # 15 tablet, 5 Refills, Maintenance, 06/06/22 16:37:00EDT, [facility] [place] [facility] [id number], Partial fill upon patient request if the prescription is for a schedule II opioid drug., 178, cm,... Start Date: 06/06/22 Status: Ordered folic acid 1 mg oral tablet 1, tablet, By Mouth, Daily, # 30 tablet, Refills 5, Tot. Refills 5, Maintenance, 06/06/22 16:49:00 EDT, Route to Pharmacy Electronically, [facility] [id number], 178, cm, 06/06/22 16:31:00 EDT, Height, 101.4, [...] EDT, Tablet, [facility] [place] [facility] [id number], Partial fill upon patient request if the prescription is for a schedule II opioid drug., 17... Start Date: 06/06/22 Stop Date: 12/03/22 Status: Ordered loratadine 10 mg oral tablet See Instructions, TAKE 1 TABLET BY MOUTH ONCE DAILY, # 30 tablet, Refills 5, Tot. Refills 5, Maintenance, 09/06/22 22:51:00 EDT, Instructions Replace Required Details, Route to Pharmacy Electronically, [facility] [id number], 1... Start Date: 09/06/22 Status: Ordered MetFORMIN (Eqv-Glucophage XR) 500 mg oral tablet, extended release TAKE 1 TABLET BY MOUTH ONCE DAILY Start Date: 07/26/22 Status: Ordered MiraLax oral powder for reconstitution = 17 Gm, By Mouth, Daily, dissolve in water before taking, # 527 Gm, 1 Refills, Maintenance, 06/06/22 16:49:00 EDT, REC Powder, [facility] [id number], Partial fill upon patient request if the prescription is for a schedule II... Start Date: 06/06/22 Status: Ordered multivitamin Multiple Vitamins oral tablet 1 tablet, By Mouth, Daily, # 90 tablet, 3 Refills, Maintenance, 06/06/22 16:40:00 EDT, [facility] [id number], Partial fill upon patient request if the [...] sleep apnea, Complex sleep apnea Confirmed Active BHN/CCA/City Maintenance Manager-Tia Kolby [phone]/Health retirement, active care coordination Confirmed Active Treatment-emergent central [...] [Reference Range]: 1 Oxygen Saturation [94-100 %] 100 % (11/14/22 6:01 AM) Pulse Rate [55-90 bpm] 89 bpm (11/14/22 6:01 AM) Blood Pressure [90-138/55-84 mm Hg] 145/ 85mm Hg *H* (11/14/22 6:01 AM) Respiratory Rate [16-30 br/min] 18 br/mi n (11/14/22 6:01 AM) Temperature [96.8-100.4 DegF] 99.3 DegF (11/14/22 6:01 AM) Mode of Delivery (Oxygen) Room air (11/14/22 6:01 AM) Blood pressure sites Arm, right (11/14/22 6:01 AM) Temperature Route Oral (11/14/22 6:01 AM) Social History Social History Type Response Smoking Status Never smoker entered on: 10/02/13 Sex Patient Care team information Care Team Personnel Name: Ela Beltrán RN Position: [facility] Nurse Member Role: Primary Care Nurse Name: Alaina Gillette RN Position: [facility] RN Member Role: Primary Care Nurse Name: Kristyn Tapia RN Position: [facility] SN RN Member Role: Primary Care Nurse Name: Seferino CUSTOMER ACCOUNT COORDINATORLorna Position: [facility] Associate Professional Member Role: Primary Care Nurse Address: Address: [address] [place] [address]- [place] Name: Flor Donnelly RN Position: [facility] RN Member Role: Primary Care Nurse Name: Ruiz Matson RN Position: [facility] RN Member Role: Primary Care Nurse Name: Belle Ames RN Position: [facility] RN Member Role: Primary Care Nurse Name: Alex Rios RN Position: [facility] RN Member Role: Primary Care Nurse Name: Daniel Hernandez III, RN Position: [facility] RN Member Role: Primary Care Nurse Name: Jordi Carter MD Position: [facility] Renal MD Member Role: Lifetime Consulting Physician Address: Address: [address] [facility] [address] [facility] [place] [address]- [place] Name: Loren Hamlin RN Position: [facility] RN Member Role: Primary Care Nurse Name: Malia Wise RN Position: [facility] RN Member Role: Primary Care Nurse Name: Lamine Lin MD Position: [facility] Physician - Primary Care Member Role: PCP Address: Address: [address] [facility] [place] [place] [address]- [place] Name: Rose Abraham RN Position: [facility] Battalion Fire Chief Member Role: Primary Care Nurse Name: Vinod Botello MD Position: [facility] Physician - Behavioral Health Member Role: Lifetime Consulting Physician Address: Address: [address] [place] [address]- [place] Care Team Related Persons Name: MALIA HARRIS Name: KATHLEEN JACQUES Address: home [address] [place] [address] Name: VIRGIL PARKS Address: home [address] [place] [address] Name: MICHAELA MONTENEGRO Address: home UNKNOWN Name: MIGUEL PUENTES Address: home [address] [place] [address]
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
--- OUTSIDE RECORDS SUMMARY | 2022-11-19 16:36 | XMS_ITS | Continuity of Care Document ---
Author Name Unknown Organization [facility] Address [address] [place] [address]- Care Team Providers Care Rug Cleaning Supervisor Name Role Phone Delia ACOSTA, Lamine Covington Primary Care Physician [phone] Encounter [facility] Date(s): 08/04/22 - 09/03/22 [facility] [address] [place] [address]- Allergies, Adverse Reactions, Alerts Substance Reaction Severity Status lisinopril dry cough Active Dust Mild Active Milk Products Nausea and vomiting Persistent Moderate Active cloNIDine confusion Active Immunizations Given and Recorded Vaccine Date Status Refusal Reason [id number] 12y+ bivalent booster vax 02/07/22 Given influenza [...] each, 1 Refills, Maintenance, 06/06/22 16:49:00 EDT, [facility] [id number], 178, cm, 06/06/22 16:31:00 EDT, Height, 101.4, kg, 01/12/22 14:14:00 EST, Dry Weight Start Date: 06/06/22 Status: Ordered ferrous fumarate 324 mg oral tablet 1 tablet = 324 mg, By Mouth, Every 48 hours, # 15 tablet, 5 Refills, Maintenance, 06/06/22 16:37:00EDT, [facility] [id number], Partial fill upon patient request if the prescription is for a schedule II opioid drug., 178, cm,... Start Date: 06/06/22 Status: Ordered folic acid 1 mg oral tablet 1, tablet, By Mouth, Daily, # 30 tablet, Refills 5, Tot. Refills 5, Maintenance, 06/06/22 16:49:00 EDT, Route to Pharmacy Electronically, [facility] [id number], 178, cm, 06/06/22 16:31:00 EDT, Height, 101.4, kg, 01/12/22 14:14... Start Date: 06/06/22 Status: Ordered gabapentin 100 mg oral capsule TAKE 1 CAPSULE BY MOUTH 3 (THREE) TIMES A DAY Start Date: 07/26/22 Status: Ordered gabapentin 600 mg oral tablet 1 tablet = 600 mg, By Mouth, 3 times a day, # 90 tablet, 5 Refills, Maintenance, 06/06/22 16:41:00 EDT, Tablet, [facility] [id number], Partial fill upon patient request if the prescription is for a schedule II opioid drug., 17... Start Date: 06/06/22 Stop Date: 12/03/22 Status: Ordered loratadine 10 mg oral tablet 10 mg, 1, tablet, By Mouth, Daily, # 30 tablet, Refills 3, Tot. Refills 3, Maintenance, 06/06/22 16:41:00 EDT, Route to Pharmacy Electronically, [facility] [id number], Partial fill upon patient request if the [...] Refills, Maintenance, 06/06/22 16:49:00 EDT, REC Powder, [facility] [id number], Partial fill upon patient request if the prescription is for a schedule II... Start Date: 06/06/22 Status: Ordered multivitamin Multiple Vitamins oral tablet 1 tablet, By Mouth, Daily, # 90 tablet, 3 Refills, Maintenance, 06/06/22 16:40:00 EDT, [facility] [id number], Partial fill upon patient request if the [...] sleep apnea, Complex sleep apnea Confirmed Active BHN/CCA/Nursery Laborer-Tia Kolby [phone]/[facility], active care coordination Confirmed Active Treatment-emergent central [...] Team Personnel Name: Ela Beltrán RN Position: [facility] AMB Nurse Member Role: Primary Care Nurse Name: Alaina Gillette RN Position: [facility] RN Member Role: Primary Care Nurse Name: Kristyn Tapia RN Position: [facility] RN Member Role: Primary Care Nurse Name: Lorna Gentile NP Position: [facility] Associate Professional Member Role: Primary Care Nurse Address: Address: [address] [place] [id number] Name: Venus Jaramillo RN Position: [facility] RN Member Role: Primary Care Nurse Name: Flor Donnelly RN Position: [facility] RN Member Role: Primary Care Nurse Name: Ruiz Matson RN Position: [facility] RN Member Role: Primary Care Nurse Name: Belle Ames RN Position: [facility] RN Member Role: Primary Care Nurse Name: Alex Rios RN Position: [facility] RN Member Role: Primary Care Nurse Name: Daniel Hernandez III, RN Position: [facility] RN Member Role: Primary Care Nurse Name: Jordi Carter MD Position: [facility] Renal MD Member Role: Lifetime Consulting Physician Address: Address: [address] [facility] [address] [facility] [place] [address]- [place] Name: Loren Hamlin RN Position: [facility] RN Member Role: Primary Care Nurse Name: Malia Wise RN Position: [facility] RN Member Role: Primary Care Nurse Name: Lamine Lin MD Position: [facility] Physician - Primary Care Member Role: PCP Address: Address: [address] [facility] [address]- [place] Name: Rose Abraham RN Position: [facility] Mental Health Worker Member Role: Primary Care Nurse Name: Vinod Botello MD Position: [facility] Physician - Behavioral Health Member Role: Lifetime Consulting Physician Address: Address: [address] [place] [address]- Care Team Related Persons Name: MALIA HARRIS Name: KATHLEEN JACQUES Address: home [address] [place] [address] Name: VIRGIL PARKS Address: home [address] [place] [address] Name: MICHAELA MONTENEGRO Address: home UNKNOWN Name: MIGUEL PUENTES Address: home [address] [place] [address]
[2022-11-19] MEDS: iohexoL 350 MG/ML 100 ML INFUS..BTL IV (16:38)
[2022-11-19] MEDS: ondansetron HCL 4 MG/2 ML VIAL IVPUSH (16:45)
[2022-11-19] MEDS: Morphine Sulfate 4 MG/ML CARTRIDGE IVPUSH (16:45)
[2022-11-19 17:07] VITALS: BP 140/83; PULSE 89; RESP 17; TEMP 36.7; O2SAT 98
--- NOTE | 2022-11-19 17:55 | PC.NURSE ---
pt unable/refusing to pee. states that he doesn't have to, I feel nothing . CT showed enlarged bladder. informed pt with MD that if he is unable to pee on his own, he will require a straight cath to empty his bladdder.
--- NOTE | 2022-11-19 18:07 | PC.NURSE ---
700 cc emptied out of bladder via straight cath - pt reports no relief to abdominal pain
[2022-11-19 18:12] LABS: Appearance Urine Clear; Color Urine Dark Yellow; Glucose Urine UA Negative (Negative); Leukocyte Esterase Urine Trace (Negative); Nitrite Urine Negative (Negative); PH 7.5 (5.0-9.0); Specific Gravity - Urine 1.025 (1.005-1.025); UMIC TRIGGER UACC YES; Urine Blood Negative (Negative); Urine Ketones 15 mg/dL (Negative); Urine Protein Trace mg/dL (Neg-Trace)
[2022-11-19 18:17] LABS: Bacteria Urine None Seen (None Seen); Hyaline Casts Urine 0-2 /LPF (0-2); RBC Urine 0-2 /HPF (0-2); Squamous Epithelial Cell Urine 0-2 /HPF (0-2); WBC Urine 0-5 /HPF (0-5)
[2022-11-19 18:18] LABS: Amphetamine Screen Urine Not Detected (Not Detect); Barbiturates, Urine Not Detected (Not Detect); Benzodiazepines Screen Urine Not Detected (Not Detect); Cannabinoid Screen Urine Not Detected (Not Detect); Cocaine Screen Urine Not Detected (Not Detect); Fentanyl, urine Not Detected (Not Detect); Opiate Screen Urine Not Detected (Not Detect); Phencyclidine Screen Urine Not Detected (Not Detect)
== END 2022-11-19 19:51 | disposition home or self-care (01) ==
PROVIDERS: Emergency Provider Emergency Medicine
DX: R10.32 Left lower quadrant pain (principal); R33.9 Retention of urine, unspecified; I10 Essential (primary) hypertension; E11.9 Type 2 diabetes mellitus without complications; Z79.899 Other long term (current) drug therapy
CPT/HCPCS: 36415; 51701; 74177; 80053; 80307; 81001; 82947; 83690; 85025; 96361; 96374; 96375; 99284; 99285; J2270; J2405; Q9967

== ENCOUNTER 2022-12-15 13:27 | Inpatient (IN) | payer OTHER, SELFPAY ==
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
--- OUTSIDE RECORDS SUMMARY | 2022-12-15 13:31 | XMS_ITS | Continuity of Care Document ---
Author Name Unknown Organization [facility] ter Address [address] [place] [address]- Care Team Providers Care Social Sciences Professor Name Role Phone Delia ACOSTA, Lamine Covington Primary Care Physician Encounter [facility] Date(s): 11/23/22 - 11/23/[address] [address]- Discharge Disposition: A-D/C Home Attending Physician: Praful Mae MD Admitting Physician: Praful Mae MD Referring Physician: Not on Staff, Referring MD Allergies, Adverse Reactions, Alerts Substance Reaction Severity Status lisinopril dry cough Active Dust Mild Active Milk Products Nausea and vomiting Persistent Moderate Active cloNIDine confusion Active Immunizations Given and Recorded Vaccine Date Status Refusal Reason [id number] 12y+ bivalent booster vax 02/07/22 Given influenza [...] 09/14/2010 Medications benztropine 1 mg oral tablet 0.5 mg, 0.5, tablet, By Mouth, 2 times a day Start Date: 07/26/22 Status: Ordered docusate sodium 100 mg oral capsule 1 capsule, By Mouth, Daily, # 30 each, 1 Refills, Maintenance, 06/06/22 16:49:00 EDT, [place], [place] - [id number], 178, cm, 06/06/22 16:31:00 EDT, Height, 101.4, kg, 01/12/22 14:14:00 EST, Dry Weight Start Date: 06/06/22 Status: Ordered ferrous fumarate 324 mg oral tablet 1 tablet = 324 mg, By Mouth, Every 48 hours, Maintenance, 11/20/22 10:54:00 EDT, Partial fill upon patient request if the prescription is for a schedule II opioid drug. Start Date: 11/20/22 Status: Ordered folic acid 1 mg oral tablet 1, tablet, By Mouth, Daily, # 30 tablet, Refills 5, Tot. Refills 5, Maintenance, 06/06/22 16:49:00 EDT, Route to Pharmacy Electronically, [place], [place] - [id number], 178, cm, 06/06/22 16:31:00 EDT, Height, 101.4, kg, 01/12/22 14:14... Start Date: 06/06/22 Status: Ordered FreeStyle Lite Strips FreeStyle Lite Strips, See Instructions, # 50 Unknown, 11 Refills, Maintenance, USE TO TEST FINGER STICK BLOOD SUGAR ONCE DAILY fasting, 11/16/22 17:06:00 EDT, 179, cm, 08/26/22 13:16:00 EDT, Height,111.5, kg, 11/14/22 21:00:00 EDT, Dry Weight Start Date: 11/16/22 Status: Ordered gabapentin 100 mg oral capsule 100 mg, 1, capsule, By Mouth, 3 times a day, TTD 700 MG Start Date: 07/26/22 Status: Ordered gabapentin 600 mg oral tablet 1 tablet = 600 mg, By Mouth, 3 times a day, TTD 700 MG, Maintenance, 11/20/22 10:52:00 EDT, Tablet,Partial fill upon patient request if the prescription is for a schedule II opioid drug. Start Date: 11/20/22 Status: Ordered Inject Ease Lancets 28 gauge Inject Ease Lancets 28 gauge, See Instructions, # 50 Unknown, 11 Refills, Maintenance, USE TO TEST FINGER STICK BLOOD SUGAR ONCE DAILY, 11/16/22 17:07:00 EDT, 179, cm, 08/26/22 13:16:00 EDT, Height, 111.5, kg, 11/14/22 21:00:00 EDT, Dry Weight Start Date: 11/16/22 Status: Ordered loratadine 10 mg oral tablet See Instructions, TAKE 1 TABLET BY MOUTH ONCE DAILY, # 30 tablet, Refills 5, Tot. Refills 5, Maintenance, 09/06/22 22:51:00 EDT, Instructions Replace Required Details, Route to Pharmacy Electronically, [place], [place] - [id number], 1... Start Date: 09/06/22 Status: Ordered MetFORMIN (Eqv-Glucophage XR) 500 mg oral tablet, extended release 1 tablet = 500 mg, By Mouth, Daily, LAST FILLED 10/11/22 FOR 14 TABS Start Date: 07/26/22 Status: Ordered multivitamin Multiple Vitamins oral tablet 1 tablet, By Mouth, Daily, # 90 tablet, 3 Refills, Maintenance, 06/06/22 16:40:00 EDT, [place], [place] - [id number], Partial fill upon patient request if the [...] Weight Start Date: 07/24/22 Status: Ordered prazosin 2 mg oral capsule 1 capsule = 2 mg, By Mouth, Daily at bedtime, Maintenance, 11/20/22 10:46:00 EDT, Partial fill uponpatient request if the prescription is for a schedule II opioid drug. Start Date: 11/20/22 Status: Ordered risperiDONE 2 mg oral tablet 2 mg, 1, tablet, By Mouth, Daily Start Date: 07/26/22 Status: Ordered sertraline 100 mg oral tablet 1 tablet = 100 mg, By Mouth, Daily, Maintenance, 11/20/22 10:49:00 EDT, Tablet, Partial fill upon patient request if the prescription is for a schedule II opioid drug. Start Date: 11/20/22 Status: Ordered Sleep pillow for snoring Sleep pillow for snoring, See Instructions, # 1 each, Refills 0, Tot. Refills 0, Maintenance, Dx: Sleep apnea G47.33 duration: lifetime, 06/03/22 16:30:00 EDT, Supply Start Date: 06/03/22 Status: Ordered traZODone 100 mg oral tablet 100 mg, 1, tablet, By Mouth, Daily at bedtime Start Date: 02/07/22 Status: Ordered venlafaxine 150 mg oral capsule, extended release 1 capsule = 150 mg, By Mouth, Daily in AM, Maintenance, 11/20/22 10:47:00 EDT, Partial fill upon patient request if the prescription is for a schedule II opioid drug. Start Date: 11/20/22 Status: Ordered Problem List Condition Confirmation Course [...] sleep apnea, Complex sleep apnea Confirmed Active BHN/CCA/Junior Sales Representative-Tia Kolby [phone]/[facility] senior care, active care coordination Confirmed Active Treatment-emergent central [...] Exam Date Time Procedure Performing Provider Status 11/23/22 11:[address] Abd/Pelvis W/ IV Contrast Only Rachel Og; Auth (Verified) Notes: (CT Abd/Pelvis W/ IV Contrast Only) Reason For Exam: diffuse abdominal pain;Other: RESULT: CT Abd/Pelvis W/ IV Contrast Only CT Abd/Pelvis W/ IV Contrast Only Hx of Present Illness: pt coming from [facility] o ABD pain and urinary retention, upon arrival reported it was genralized pain and since has not talked. hx xchizophrenia, no stated SI HI.; Reason: Other:; diffuse abdominal pain; Clinical Question(s): Diverticulitis; Order Comment: TECHNIQUE: Spiral CT through the abdomen and pelvis with IV contrast formatted in 3 planes. 100 cc of Omnipaque 300 was administered intravenously. This study was performed without oral contrast. Weight-based protocol using automatic tube modulation was used to optimize exposure parameters. COMPARISON: CT abdomen and pelvis from 01/18/2022 FINDINGS: Dredge Master View Findings, Lines and Tubes: None. Visualized Chest: Lung bases are clear. No pleural effusion. The heart is normal in size. No pericardial effusion. Diaphragm: Normal. Liver: Mild hepatic steatosis. No suspicious liver lesion. Gallbladder: No CT evidence of gallbladder pathology. Bile ducts: No biliary ductal dilation. Spleen: Normal. Pancreas: Normal. Adrenal glands: Normal. Kidneys and ureters: No hydronephrosis, stones, or suspicious masses. Subcentimeter hypodensity upper pole right kidney too small to characterize, probably a cyst. Bladder: Normal. Reproductive organs: Unremarkable. Stomach, small bowel, and large bowel: No abnormal bowel wall thickening or distention. Appendix: Normal. Peritoneum and retroperitoneum: No ascites or pneumoperitoneum. No omental or mesenteric lesions. Lymph nodes: No enlarged lymph nodes. Blood vessels: Normal. No aneurysm. No evidence of venous thrombosis. Abdominal and pelvic wall: Unremarkable. Bones: No acute abnormality. IMPRESSION: No acute abnormality within the abdomen or pelvis. Mild hepatic steatosis. WSN: [id number] Ordering Physician: Kim Lux Dictated By: Jose De Jesus Swann MD Dictated Date/Time: 11/23/22 11:42 a Reviewed By: Jose De Jesus Swann MD Signed By: Jose De Jesus Swann MD Signed Date/Time: 11/23/22 11:42 am Transcribed By: TIP Transcribed Date/Time: 11/23/22 11:35 am Vital Signs Most recent to oldest [Reference Range]: 1 2 3 Oxygen Saturation [94-100 %] 96 % (11/23/22 6:12 PM) 97 % (11/23/22 10:22 AM) 100 % (11/23/22 5:37 AM) Pulse Rate [55-90 bpm] 75 bpm (11/23/22 6:12 PM) 79 bpm (11/23/22 10:22 AM) 66 bpm (11/23/22 5:37 AM) Blood Pressure [90-138/55-84 mm Hg] 153/92mm Hg *H* (11/23/22 6:12 PM) 140/84mm Hg *H* (11/23/22 10:22 AM) 141/94mm Hg *H* (11/23/22 5:37 AM) Respiratory Rate [16-30 br/min] 17 br/min (11/23/22 6:12 PM) 17 br/min (11/23/22 10:22 AM) 18 br/min (11/23/22 5:37 AM) Temperature [96.8-100.4 DegF] 99.0 DegF (11/23/22 6:12 PM) 97.9 DegF (11/23/22 10:22 AM) 98.7 DegF (11/23/22 5:37 AM) Mode of Delivery (Oxygen) Room air (11/23/22 6:12 PM) Room air (11/23/22 10:22 AM) Room air (11/23/22 5:37 AM) Blood pressure sites Arm, left (11/23/22 6:12 PM) Arm, left (11/23/22 10:22 AM) Arm, right (11/23/22 5:37 AM) Temperature Route Oral (11/23/22 6:12 PM) Oral (11/23/22 10:22 AM) Oral (11/23/22 5:37 AM) Social History Social History Type Response Smoking Status Never smoker entered on: 10/02/13 Sex Patient Care team information Care Team Personnel Name: Ela Beltrán RN Position: S AMB Nurse Member Role: Primary Care Nurse Name: Alaina Gillette RN Position: [facility] RN Member Role: Primary Care Nurse Name: Kristyn Tapia RN Position: [facility] SN RN Member Role: Primary Care Nurse Name: Lorna Gentile NP Position: [facility] Associate Professional Member Role: Primary Care Nurse Address: Address: [address] [place] [address]- [place] Name: Flor Donnelly RN Position: [facility] RN Member Role: Primary Care Nurse Name: Ruiz Matson RN Position: [facility] RN Member Role: Primary Care Nurse Name: Belle Ames RN Position: [facility] RN Member Role: Primary Care Nurse Name: Alex Rios RN Position: [facility] RN Member Role: Primary Care Nurse Name: Daniel Hernandez III, RN Position: [facility] RN Member Role: Primary Care Nurse Name: Jordi Carter MD Position: [facility] Renal MD Member Role: Lifetime Consulting Physician Address: Address: [address] [facility] [address] [facility] [place] [address]- [place] Name: Loren Hamlin RN Position: [facility] RN Member Role: Primary Care Nurse Name: Malia Wise RN Position: [facility] RN Member Role: Primary Care Nurse Name: Lamine Lin MD Position: [facility] Physician - Primary Care Member Role: PCP Address: Address: [address] [facility] [place] [address]- [place] Name: Rose Abraham RN Position: [facility] Hospital Development Coordinator Member Role: Primary Care Nurse Name: Vinod Botello MD Position: [facility] Physician - Behavioral Health Member Role: Lifetime Consulting Physician Address: Address: [address] [place] [address]- [place] Name: Praful Mae MD Position: [facility] ED Medicine MD Member Role: Admitting Physician Address: Address: [address] [place] [address] Department [place] [address]- [place] Name: Lila Naqvi Position: [facility] ED [facility] Member Role: Patient Care Provider Name: Kelly Crane RN Position: [facility] ED RN W/OE and Tasks Member Role: Patient Care Provider Name: Alex Roberts Position: [facility] Resident Member Role: ED Resident Address: Address: [address] [place] [address] [place] [address]- [place] Name: Radha Strickland Position: S ED [facility] Member Role: Search Consultant Care Team Related Persons Name: KIMBERLY MALIA Name: KATHLEEN JACQUES Address: home [address] [place] [address] Name: VIRGIL PARKS Address: home [address] [place] [address] Name: MICHAELA MONTENEGRO Address: home UNKNOWN Name: MIGUEL PUENTES Address: home [address] [place] [address]
--- OUTSIDE RECORDS SUMMARY | 2022-12-15 13:32 | XMS_ITS | Continuity of Care Document ---
Author Name Unknown Organization [facility] Address [address] [place] [address]- Care Team Providers Care Generator Assembler Name Role Phone Not on Staff, PCP Primary Care Physician Unavail able [place] [facility] Date(s): 12/11/22 - 12/12/[address] [address]- Discharge Disposition: A-D/C Home Attending Physician: Mago Prater MD Admitting Physician: Mago Prater MD Referring Physician: Not on Staff, Referring MD Allergies, Adverse Reactions, Alerts No Known Medication Allergies Medications amLODIPine 5 mg oral tablet 5 mg, Tablet, By Mouth, 12/12/22 9:00:00 EDT Start Date: 12/12/22 Stop Date: 12/12/22 Status: Completed gabapentin 300 mg oral capsule 600 mg, Capsule, By Mouth, 12/12/22 9:00:00 EDT Start Date: 12/12/22 Stop Date: 12/12/22 Status: Completed Vital Signs Most recent to oldest [Reference Range]: 1 2 3 Oxygen Saturation [94-100 %] 97 % (12/12/22 9:56 AM) 97 % (12/12/22 8:37 AM) 95 % (12/12/22 5:19 AM) Pulse Rate [55-90 bpm] 99 bpm *H* (12/12/22 9:56 AM) 85 bpm (12/12/22 8:37 AM) 98 bpm *H* (12/12/22 5:19 AM) Blood Pressure [90-138/55-84 mm Hg] 163/80mm Hg *H* (12/12/22 9:56 AM) 149/89mm Hg *H* (12/12/22 8:37 AM) 149/89mm Hg *H* (12/12/22 8:32 AM) Respiratory Rate [16-30 br/min] 18 br/min (12/12/22 9:56 AM) 14 br/min *L* (12/12/22 8:37 AM) 14 br/min *L* (12/12/22 8:31 AM) Temperature [96.8-100.4 DegF] 98.3 DegF (12/12/22 8:37 AM) 98.3 DegF (12/12/22 2:15 AM) 98.6 DegF (12/11/22 8:39 PM) Mode of Delivery (Oxygen) Room air (12/12/22 9:56 AM) Room air (12/12/22 8:37 AM) Room air (12/12/22 5:19 AM) Blood pressure sites Arm, left (12/11/22 8:39 PM) Arm, right (12/11/22 2:51 PM) Temperature Route Oral (12/12/22 8:37 AM) Oral (12/12/22 2:15 AM) Oral (12/11/22 8:39 PM) Social History Social History Type Response Sex Male Note * Mago Prater MD: PERFORM, SIGN, VERIFY Event Display: Patient Education Handout Authored Date: [id number] Patient Care team information Care Team Personnel Name: Not on Staff, PCP Position: [facility] Physician (General Medicine) Member Role: PCP Name: *[facility], ED Attending Position: [facility] ED Attendings Patient Name: Mago Prater MD Position: [facility] ED Medicine MD Member Role: Admitting Physician Address: Address: [address] [place] [address] Name: Tara Mon RN Position: [facility] ED RN W/OE and Tasks Member Role: Patient Care Provider Name: Cheryl Linares RN Position: [facility] ED RN W/OE and Tasks Member Role: Patient Care Provider Name: Janey Roberts Position: [facility] ED [facility] Member Role: Yeast Cake Cutter Name: Brandy Rievr Position: [facility] ED [facility]
--- OUTSIDE RECORDS SUMMARY | 2022-12-15 13:33 | XMS_ITS | Continuity of Care Document ---
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 limit what you do. You may need more rest if you feel weak or tired. What problems could happen? Stomach ulcer or bleeding ??? Stomach cancer ?? When do I need to call the doctor? You start throwing up blood or pass a lot of blood in your stool. ??? Your belly pain becomes much worse all of a sudden or over a few?? hours. ??? Your belly becomes hard or tender. ??? You havechest pain or trouble breathing . ??? Your stools are bright red, black, or tar colored. ??? You are throwing up often. ??? Your belly pain does not get better even after taking medicine,?? changing your diet, and following treatment instructions. ??? You lose a lot of weight without trying. ?? Teach Back: Helping You Understand The Teach Back Method helps you understand the information we are giving you. After you talk with the staff, tell them in your own words what you learned. This helps to make sure the staff has described each thing clearly. It also helps to explain things that may have been confusing. Before going home, make sure you can do these: ? I can tell you about my condition. ??? I can tell you if I need to make changes with my diet ordrugs. ??? I can tell you what I will do if I throw up blood or have bloody or black?? tarry stools. ?? Where can I learn more? [facility] [place] https://www.nhs.uk/conditions/gastritis/ Last Reviewed Date 2020-07-28 Consumer Information Use and Disclaimer: This generalized information is a limited summary of diagnosis, treatment, and/or medication information. It is not meant to be comprehensive and should be used as a tool to help the user understand and/or assess potential diagnostic and treatment options. It does NOT include all information about conditions, treatments, medications, side effects, or risks that may apply to a specific patient. Itis not intended to be medical advice or a substitute for the medical advice, diagnosis, or treatment of a health care provider based on the health care provider's examination and assessment of a patient???s specific and unique circumstances. Patients must speak with a health care provider for complete information about their health, medical questions, and treatment options, including any risks orbenefits regarding use of medications. This information does not endorse any treatments or medications as safe, effective, or approved for treating a specific patient. [employer]. and its affiliates disclaim any warranty or liability relating to this information or the use thereof. The use of this information is governed by the Terms of Use, available at??https://www.EnglishUp.The FeedRoom/en/know/ceojyqng-ndryhinwyqtas-rchyl Last Updated 04/14/21 ?? * Ene Louis MD: PERFORM Event Display: Patient Education Leaflets Authored Date: [id number] Depression ?? [id number] Depresi??n La depresi??n es un problema muy com??n de aden mental. No es solo un estado de infelicidad o tristeza. Es caleb enfermedad verdadera. Al parecer, la causa est?? relacionada con cambios en las sustancias qu??micas que transmiten se??ales en el cerebro. Lo siguiente aumenta el riesgo de depresi??n en caleb persona: ??? Antecedentes familiares de depresi??n, alcoholismo o suicidio ??? Enfermedad cr??jeremy ??? Dolorcr??tu ??? Migra??a (cristobal de radha intensos) ??? Estr??s emocional alto Es probable que sea m??s f??cil detectar la depresi??n en otras personas. Si usted padece de depresi??n, quiz?? le cueste identificarla. Se puede manifestar de varias maneras f??sicas y emocionales. Entre ellos, se encuentran los siguientes: ??? P??rdida del apetito ??? [place] en exceso ??? No poder dormir ??? Dormir demasiado ??? Mucho cansancio no asociado con actividad f??bertha ??? Agitaci??n o irritabilidad ??? Lentitud en el movimiento o en el habla ??? Sentimientos de tristeza o desesperanza ??? P??rdida de inter??s por las cosas que antes disfrutaba ??? Problemas para concentrarse, recordar cosas o eric decisiones ??? Pensamientos de hacerse da??o o suicidarse, o pensar que no benoit la andrews vivir ??? [place]aja autoestima El tratamiento para la depresi??n puede incluir tanto medicamentos stefania psicoterapia. Los antidepresivos pueden aliviar los s??ntomas. Tambi??n pueden hacer que le resulte m??s f??cil hacer geneva tareas diarias. La terapia puede laura apoyo emocional. Adem??s, puede ayudarlo a entender aquello que le causa depresi??n. Cuidados en el hogar ??? La atenci??n y el apoyo constantes ayudan a las personas a controlar esta enfermedad. Busque un proveedor de atenci??n m??dica y un terapeuta que atiendan geneva necesidades. Busque ayuda cuando considere que puede estar enfermo. ??? Sea meri consigo mismo. Prop??ngase hacercosas que disfrute. Puede ser cuidar el jard??n, laura un paseo en un parque o ir al cine. Recompensesus vito??os logros. ??? Cuide regan cuerpo. Mantenga caleb alimentaci??n saludable. Elija alimentos con poca cantidad de grasas saturadas. Coma muchas frutas y verduras. Madeline krystal ejercicio axel 30??minutos al menos 3??veces por semana. Incluso el ejercicio leve a moderado, stefania las caminatas r??pidas, pueden hacer que se sienta mejor. ??? Nordic los medicamentos harrison stefania se lo hayan indicado. No deje de eric los medicamentos ni cambie la dosis, a menos que hable thor con el proveedor de atenci??n m??dica. ??? Cuando comience a eric los medicamentos, los s??ntomas mejorar??n de a poco. Conel tiempo, la depresi??n desaparecer??. No mejora de inmediato. Consulte con el proveedor de atenci??n m??dica cu??nto tardar??n los medicamentos en hacer efecto. ??? No comparta los medicamentos. Tampoco use los medicamentos de otra persona. ??? Informe a los proveedores de atenci??n m??dica todoslos medicamentos que edna. [place] incluye los medicamentos con receta y los de venta dom. Tambi??n incluye las vitaminas y los suplementos herbarios. Algunos suplementos pueden interactuar con los medicamentos. Si esto ocurre, podr??an tener efectos secundarios peligrosos. Consulte con el farmac??utico cuando tenga alguna ida acerca de las interacciones entre los medicamentos. ??? No tome decisiones importantes hasta que se sienta mejor. [place] incluye cuestiones stefania cambiar de trabajo, divorciarse o casarse. ??? No consuma alcohol. Podr??a hacer que empeore la depresi??n. ??? Hable con regan adrien y amigos de confianza sobre geneva sentimientos y geneva pensamientos.??P??dales que lo ayuden a reconocer los cambios de comportamiento a tiempo. Entonces podr?? buscar ayuda y cambiar los medicamentos, si es necesario. ??? Hable con el proveedor de atenci??n m??dica si no se siente mejor. Es posible que le cambie los medicamentos o le indique otro tratamiento. ?? Atenci??n de seguimiento Programe caleb joslyn de seguimiento con el proveedor de atenci??n m??dica stefania se le indique. ?? Cuidados en rosette de crisis Si tiene pensamientos de hacerse da??o a usted mismo o a otras personas, llame al?? 988. Cuando llame o env??e un mensaje de texto al?? 988, se lo pondr?? en contacto con consejeros de crisis capacitados. Tambi??n hay disponible caleb opci??n de chat en l??wesley. La l??wesley es gratuita y funciona las 24??horas, los 7??d??as de la semana. Los consejeros del?? 988 trabajan en conjunto con el?? 911 para que usted reciba la asistencia que necesita. Llame al?? 988 si sucede lo siguiente: ??? Tiene pensamientos suicidas, un plan suicida y conoce lamanera para llevar a cabo dicho plan ??? Tiene pensamientos serios acerca de atacar a otra persona ??? Tiene dificultad para respirar ??? Siente marline confusi??n ??? Se siente adormecido o tiene dificultades para despertarse ??? Se desmaya ??? Presenta un dolor de pecho nuevo que se vuelve intenso,dura m??s tiempo o comienza a extenderse hacia el hombro, el brazo, el lawrence, la krishna??bula o la espalda ?? Cu??ndo buscar atenci??n m??dica Llame al proveedor de atenci??n m??dica de inmediato ante cualquiera de las siguientes situaciones:??? Los s??ntomas empeoran ??? Siente depresi??n extrema, miedo, ansiedad o yadira contra usted mismo o contra otras personas ??? Se siente fuera de control ??? Siente que podr??a intentar hacerse da??oa usted mismo o a otra persona ??? Oye voces que otras personas no ??? Ve cosas que otras personas no ??? No duerme ni come axel mily d??as seguidos ??? Regan adrien o geneva amigos manifiestan preocupaci??n por regan comportamiento y le piden que busque ayuda ?? Last Reviewed Date: 2021 ?? 2620-6853 [employer]. Todos los derechos reservados. Esta informaci??n no pretende sustituir la atenci??n m??dica profesional. S??lo regan m??dico puede diagnosticar y tratar un problema de aden. ?? Patient Care team information Care Team Personnel Name: Ela Beltrán RN Position: [facility] Nurse Member Role: Primary Care Nurse Name: Alaina Gillette RN Position: [facility] RN Member Role: Primary Care Nurse Name: Kristyn Tapia RN Position: [facility] SN RN Member Role: Primary Care Nurse Name: Lorna Gentile NP Position: [facility] Associate Professional Member Role: Primary Care Nurse Address: Address: [address] [place] [address]- Name: Venus Jaramillo RN Position: [facility] RN Member Role: Primary Care Nurse Name: Flor Donnelly RN Position: [facility] RN Member Role: Primary Care Nurse Name: Ruiz Matson RN Position: [facility] RN Member Role: Primary Care Nurse Name: Belle Ames RN Position: [facility] RN Member Role: Primary Care Nurse Name: lAex Rios RN Position: [facility] RN Member Role: Primary Care Nurse Name: Daniel Hernandez III, RN Position: [facility] RN Member Role: Primary Care Nurse Name: Jordi Carter MD Position: [facility] Renal MD Member Role: Lifetime Consulting Physician Address: Address: [address] [place] [address] [address] [facility], [place] [address]- [place] Name: Loren Hamlin RN Position: [facility] RN Member Role: Primary Care Nurse Name: Kenzie Martínez RN, Malia Position: [facility] RN Member Role: Primary Care Nurse Name: Lamine Lin MD Position: [facility] Physician - Primary Care Member Role: PCP Address: Address: [address] [facility] [place] [address]- Name: Rose Abraham RN Position: [facility] Hospital Motion Picture Actor Member Role: Primary Care Nurse Name: Vinod Botello MD Position: [facility] Physician - Behavioral Health Member Role: Lifetime Consulting Physician Address: Address: [address] [place] [address]- Name: *[facility], ED Attending Position: [facility] ED Attendings Patient Name: Beto Stroud Position: [facility] ED TA [facility] Name: Ene Louis MD Position: [facility] ED Medicine MD Member Role: Admitting Physician Address: Address: [address] Emergency [place] [address]- [place] Name: Bruna Grover RN Position: [facility] ED RN W/OE and Tasks Member Role: Patient Care Provider Care Team Related Persons Name: MALIA HARRIS Name: KATHLEEN JACQUES Address: home [address] [place] [address] Name: VIRGIL PARKS Address: home [address] [place] [address] Name: MICHAELA MONTENEGRO Address: home UNKNOWN Name: MIGUEL PUENTES Address: home [address] [place] [address]
--- OUTSIDE RECORDS SUMMARY | 2022-12-15 13:36 | XMS_ITS | Continuity of Care Document ---
Author Name Unknown Organization [facility] ter Address [address] [place] [address]- Care Team Providers Care Hob Machine Operator Name Role Phone Delia ACOSTA, Lamine Covington Primary Care Physician Encounter [facility] [place] Date(s): 11/19/22 - 11/20/[address] [address]- Discharge Disposition: A-D/C Home Attending Physician: Praful Mae MD Admitting Physician: Praful Mae MD Referring Physician: Not on Staff, Referring MD Allergies, Adverse Reactions, Alerts Substance Reaction Severity Status lisinopril dry cough Active Dust Mild Active Milk Products Nausea and vomiting Persistent Moderate Active cloNIDine confusion Active Immunizations Given and Recorded Vaccine Date Status Refusal Reason [id number] 12y+ bivalent booster vax 02/07/22 Given influenza [...] 1, tablet, By Mouth, 2 times a day Start Date: 07/26/22 Status: Ordered docusate sodium 100 mg oral capsule 1 capsule, By Mouth, Daily, # 30 each, 1 Refills, Maintenance, 06/06/22 16:49:00 EDT, [place], [place] - [id number], 178, cm, 06/06/22 16:31:00 EDT, Height, 101.4, [...] 06/06/22 16:49:00 EDT, Route to Pharmacy Electronically, [place], [place] - [id number], 178, cm, 06/06/22 16:31:00 EDT, Height, 101.4, [...] MG Start Date: 07/26/22 Status: Ordered gabapentin 300 mg oral capsule 600 mg, Capsule, By Mouth, 11/20/22 9:00:00 EDT Start Date: 11/20/22 Stop Date: 11/20/22 Status: Completed gabapentin 600 mg oral tablet 1 tablet = 600 mg, By Mouth, 3 times a day, TTD 700 MG, Maintenance, 11/20/22 10:52:00 EDT, Tablet,Partial fill upon patient request if the prescription is for a schedule II opioid drug. Start Date: 11/20/22 Status: Ordered hydrOXYzine pamoate 50 mg oral capsule 1 capsule = 50 mg, By Mouth, Daily, PRN as needed, Maintenance, 11/20/22 10:53:00 EDT, Partial fillupon patient request if the prescription [...] Replace Required Details, Route to Pharmacy Electronically, [facility] [id number], 1... Start Date: 09/06/22 Status: Ordered melatonin 3 mg oral tablet 2 tablet = 6 mg, By Mouth, Daily at bedtime, Maintenance, 11/20/22 10:50:00 EDT, Partial fill upon patient request if the prescription is for a schedule II opioid drug. Start Date: 11/20/22 Status: Ordered MetFORMIN (Eqv-Glucophage XR) 500 mg oral tablet, extended release 1 tablet = 500 mg, By Mouth, Daily, LAST FILLED 10/11/22 FOR 14 TABS Start Date: 07/26/22 Status: Ordered multivitamin Multiple Vitamins oral tablet 1 tablet, By Mouth, Daily, # 90 tablet, 3 Refills, Maintenance, 06/06/22 16:40:00 EDT, [facility] [id number], Partial fill upon patient request if the [...] drug. Start Date: 11/20/22 Status: Ordered risperiDONE 0.5 mg oral tablet 0.5 mg, 1, tablet, By Mouth, 2 times a day, PRN, Maintenance, Bipolar, 11/20/22 10:46:00 EDT, Partial fill upon patient request if [...] sleep apnea, Complex sleep apnea Confirmed Active BHN/CCA/Electronics Assembler And Tester-Tia Jarrett [phone]/Health retirement, active care coordination Confirmed Active Treatment-emergent [...] 3 Oxygen Saturation [94-100 %] 98 % (11/20/22 1:06 PM) 94 % (11/20/22 10:48 AM) 96 % (11/20/22 7:30 AM) Pulse Rate [55-90 bpm] 92 bpm *H* (11/20/22 1:06 PM) 129 bpm *H* (11/20/22 10:48 AM) 88 bpm (11/20/22 7:30 AM) Blood Pressure [90-138/55-84 mm Hg] 116/95mm Hg (11/20/22 1:06 PM) 122/73mm Hg (11/20/22 10:48 AM) 137/84mm Hg (11/20/22 7:30 AM) Respiratory Rate [16-30 br/min] 16 br/min (11/20/22 1:06 PM) 18 br/min (11/20/22 10:48 AM) 18 br/min (11/20/22 8:48 AM) Temperature [96.8-100.4 DegF] 99.5 DegF (11/19/22 11:07 PM) Mode of Delivery (Oxygen) Room air (11/20/22 1:06 PM) Room air (11/20/22 10:48 AM) Room air (11/20/22 7:30 AM) Social History Social History Type Response Smoking Status Never smoker entered on: 10/02/13 Sex Note * Luis Velarde MD R: PERFORM, SIGN, VERIFY Event Display: Patient Education Handout Authored Date: [id number] Patient Care team information Care Team Personnel Name: Ela Beltrán RN Position: [facility] AMB Nurse Member Role: Primary Care Nurse Name: Alaina Gillette RN Position: [facility] RN Member Role: Primary Care Nurse Name: Kristyn Tapia RN Position: [facility] SN RN Member Role: Primary Care Nurse Name: Seferino MANAGER BEHAVIORALLorna Position: [facility] Associate Professional Member Role: Primary Care Nurse Address: Address: [address] [place] [address]- Name: Flor Donnelly RN Position: [facility] RN Member Role: Primary Care Nurse Name: Ruiz Matson RN Position: [facility] RN Member Role: Primary Care Nurse Name: Belle Ames RN Position: [facility] RN Member Role: Primary Care Nurse Name: Alex Rios RN Position: [facility] RN Member Role: Primary Care Nurse Name: Daniel Hernandez III, RN Position: [facility] RN Member Role: Primary Care Nurse Name: Jordi Carter MD Position: [facility] Renal MD Member Role: Lifetime Consulting Physician Address: Address: [address] [place] [address] [address] [facility], [place] [address]- [place] Name: Loren Hamlin RN Position: [facility] RN Member Role: Primary Care Nurse Name: Malia Wise RN Position: [facility] RN Member Role: Primary Care Nurse Name: Lamine Lin MD Position: [facility] Physician - Primary Care Member Role: PCP Address: Address: [address] [facility] [place] [address]- [place] Name: Rose Abraham RN Position: [facility] Fabrication Specialist Member Role: Primary Care Nurse Name: Vinod Botello MD Position: [facility] Physician - Behavioral Health Member Role: Lifetime Consulting Physician Address: Address: [address] [place] [address]- [place] Name: *[facility], ED Attending Position: [facility] ED Attendings Patient Name: Emelina Pleitez RN Position: [facility] ED RN W/OE and Tasks Member Role: Patient Care Provider Name: Beto Stroud Position: [facility] ED TA NEISHA Name: Praful Mae MD Position: [facility] ED Medicine MD Member Role: Admitting Physician Address: Address: [address] [place] [address] Department [place] [address]- Name: Sierra Anderson RN Position: [facility] ED RN W/OE and Tasks Member Role: Patient Care Provider Care Team Related Persons Name: MALIA HARRIS Name: KATHLEEN JACQUES Address: home [address] [place] [address] Name: VIRGIL PARKS Address: home [address] [place] [address] Name: MICHAELA MONTENEGRO Address: home UNKNOWN Name: MIGUEL PUENTES Address: home [address] [place] [address]
--- OUTSIDE RECORDS SUMMARY | 2022-12-15 13:37 | XMS_ITS | Continuity of Care Document ---
Author Name Unknown Organization [facility] Address [address] [place] [address]- Care Team Providers Care Harbor Boat Pilot Name Role Phone Delia ACOSTA, Lamine Covington Primary Care Physician [phone] Encounter [facility] Date(s): 11/14/22 - 12/14/22 [facility] [address] [place] [address]- Allergies, Adverse Reactions, Alerts No Known Medication Allergies Substance Reaction Severity Status lisinopril dry cough Active Dust Mild Active Milk Products Nausea and vomiting Persistent Moderate Active cloNIDine confusion Active Immunizations Given and Recorded Vaccine Date Status Refusal Reason [id number] 12y+ bivalent booster vax 02/07/22 Given influenza [...] each, 1 Refills, Maintenance, 06/06/22 16:49:00 EDT, [place], [place] - [id number], 178, cm, 06/06/22 16:31:00 EDT, Height, 101.4, [...] 06/06/22 16:49:00 EDT, Route to Pharmacy Electronically, [place], [place] - [id number], 178, cm, 06/06/22 16:31:00 EDT, Height, 101.4, [...] Replace Required Details, Route to Pharmacy Electronically, [place], [place] - [id number], 1... Start Date: 09/06/22 Status: Ordered MetFORMIN (Eqv-Glucophage XR) 500 mg oral tablet, extended release 1 tablet = 500 mg, By Mouth, Daily, LAST FILLED 10/11/22 FOR 14 TABS Start Date: 07/26/22 Status: Ordered multivitamin Multiple Vitamins oral tablet 1 tablet, By Mouth, Daily, # 90 tablet, 3 Refills, Maintenance, 06/06/22 16:40:00 EDT, [place], [place] - [id number], Partial fill upon patient request if the [...] sleep apnea, Complex sleep apnea Confirmed Active BHN/CCA/Steam Service Inspector-Tia Jarrett [phone]/Health nursing home, active care coordination Confirmed Active [...] Status Never smoker entered on: 10/02/13 Sex Male Patient Care team information Care Team Personnel Name: Ela Beltrán RN Position: [facility] AMB Nurse Member Role: Primary Care Nurse Name: Alaina Gillette RN Position: [facility] RN Member Role: Primary Care Nurse Name: Kristyn Tapia RN Position: [facility] SN RN Member Role: Primary Care Nurse Name: Lorna Gentile NP Position: [facility] Associate Professional Member Role: Primary Care Nurse Address: Address: [address] [place] [address]- [place] Name: Venus Jaramillo RN Position: [facility] RN Member Role: Primary Care Nurse Name: Flor Donnelly RN Position: [facility] RN Member Role: Primary Care Nurse Name: Ruiz Matson RN Position: [facility] RN Member Role: Primary Care Nurse Name: Belle Ames RN Position: [facility] RN Member Role: Primary Care Nurse Name: Alex Rios RN Position: [facility] RN Member Role: Primary Care Nurse Name: Daniel Hernandez III, RN Position: [facility] RN Member Role: Primary Care Nurse Name: Jordi Carter MD Position: [facility] Renal MD Member Role: Lifetime Consulting Physician Address: Address: [address] [facility] [place] [address]- [place] Name: Loren Hamlin RN Position: [facility] RN Member Role: Primary Care Nurse Name: Malia Wise RN Position: [facility] RN Member Role: Primary Care Nurse Name: Lamine Lin MD Position: [facility] Physician - Primary Care Member Role: PCP Address: Address: [address] [facility] [place] [address]- [place] Name: Rose Abraham RN Position: [facility] Fresh Foods Clerk Member Role: Primary Care Nurse Name: Vinod Botello MD Position: [facility] Physician - Behavioral Health Member Role: Lifetime Consulting Physician Address: Address: [address] [place] [address]- [place] Care Team Related Persons Name: MALIA HARRIS Name: KATHLEEN JACQUES Address: home [address] [place] [address] Name: VIRGIL PARKS Address: home [address] [place] [address] Name: MICHAELA MONTENEGRO Address: home UNKNOWN Name: MIGUEL PUENTES Address: home [address] [place] [address]
[2022-12-15 16:34] VITALS: BP 143/89; PULSE 78; TEMP 36.2; O2SAT 100
--- NOTE | 2022-12-15 17:04 | PC.ADMIT ---
Patient is 32 y/o bilingual speaking male admitted on a CV from [facility] with Unspecified Schizophrenia and increased SI. Pt recently discharged from [facility] on 12/06, pt hasn't taken medications as ordered since discharge. Pt was found by the [facility] health care coach slumped over a chair in his apartment and barely responsive. Pt was missing 3 days of medications which he took together in attempted suicide. Upon admission pt was guarded with poor eye contact. Pt was A&O X2, not place or situation. Mood was depressed with a blunted affect. Pt reports he always hears voices, denies VH. He appears to be preoccupied with thought blocking. He denies SI/HI currently and says he will seek staff if he feels unsafe. Tox screen was negative and pt denies hx of substance use. Stef reports poor sleep often awaken with voices . No acute concerns reported, has a hx of HTN and NIDDM. Medications verified with pharmacy and the [facility] RN. Pt refused the flu vaccine at this time.
--- NOTE | 2022-12-15 18:37 | HO.PM.IMCN ---
History of Present Illness Data of Consult Service Date: 12/15/22 Primary Care Provider: Unknown Physician HPI Reason for consult: Admission H&P Pt is a 32-year-old male with a PMH significant for HTN, GERD, gjy-[id number] diabetes type 2, and schizophrenia?who is admitted to [facility] psychiatry unit for increasing depression and SI with attempt at overdosing on his home medications. The patient's OFFICE MACHINES TEACHER apparently found him slumped over in a chair at his house, minimally responsive. Also noted that patient was missing at 3 days of medication from his pillbox. Patient lacks clear memory of the incident, but does endorse SI. Medical consult for admission H&P. Patient denies any acute medical complaints at this time. No chest pain/pressure, palpitations. Denies shortness of breath, dyspnea on exertion. No fever, chills, nausea, vomiting, abdominal pain. Denies headache, acute vision changes. ?Labs reviewed, grossly unremarkable. Review of Systems Review of Systems: Patient denies any acute medical complaints at this time [facility] Medical History Schizoaffective disorder Diabetes HTN (hypertension) Social History Household Members: None Housing: Apartment Do you presently have visiting nurse or other home services: Yes (Elizabeth [phone]) Unable to assess alcohol history related to: Refusing to respond Patient Tobacco Use Status: Never used Tobacco Use of substances other than those prescribed or required for medical reasons: No Have you been hit, kicked, punched, or otherwise hurt by someone within the past year? If so, by whom?: No Do you feel safe in your current relationship?: No Current Relationship Is there a partner from a previous relationship who is making you feel unsafe now?: No Are you made to feel afraid or neglected: No Advance Directives: No Advance Directives Information Provided: No (Declined) Do you have thoughts of harming others: None Do you have a plan to hurt others: No Plan Recently lost weight without trying: No How much weight loss: Not applicable Eating poorly because of decreased appetite: No Nutrition screen score: 0 Nutrition Risks: No Nutritional Risk Poor oral hygiene: No service: No Sexual orientation: Decline to Answer Meds Allergies Allergy/AdvReac Type Severity Reaction Status Date / Time lisinopril Allergy Unknown Cough Verified 12/15/22 18:44 clonidine AdvReac Unknown Unknown Verified 11/19/22 16:28 Active Medications: Current Medications Acetaminophen (Acetaminophen 325 Mg Tablet) 650 mg PO Q6H PRN PRN Reason: Headache/Pain Mild Scale (1-3) Al Hydroxide/Mg Hydroxide (Magnesium Hydrox/Alum Hydrox 30 Ml Oral.Susp) 30 ml PO Q6H PRN PRN Reason: Heartburn/Nausea Amlodipine Besylate (Amlodipine Besylate 5 Mg Tablet) 5 mg PO DAILY [facility] Benztropine Mesylate (Benztropine Mesylate 1 Mg Tablet) 1 mg PO BID [facility] Docusate Sodium (Docusate Sodium 100 Mg Capsule) 100 mg PO DAILY [facility] Ferrous Sulfate (Ferrous Sulfate 324 Mg Tablet.) 324 mg PO Q2D@0900 [facility] Folic Acid (Folic Acid 1 Mg Tablet) 1 mg PO DAILY [facility] Hydroxyzine HCl (Hydroxyzine Hcl 25 Mg Tablet) 25 mg PO Q6H PRN PRN Reason: Anxiety Loratadine (Loratadine 10 Mg Tablet) 10 mg PO DAILY [facility] Magnesium Hydroxide (Milk Of Magnesia 30 Ml Oral.Susp) 30 ml PO DAILY PRN PRN Reason: Constipation Multivitamins/Vitamin C (Multivitamin Tablet) 1 tab PO DAILY [facility] Nicotine Polacrilex (Nicotine Polacrilex 2 Mg Gum) 4 mg BUCCAL Q2H PRN PRN Reason: Nicotine Cravings Omeprazole (Omeprazole 20 Mg Capsule.) 20 mg PO DAILY@0630 [facility] Prazosin HCl (Prazosin Hcl 1 Mg Capsule) 2 mg PO BEDTIME [facility]; Protocol Risperidone (Risperidone 2 Mg Tablet) 4 mg PO BEDTIME [facility] Sertraline HCl (Sertraline Hcl 100 Mg Tablet) 100 mg PO DAILY [facility] Trazodone HCl (Trazodone Hcl 50 Mg Tablet) 50 mg PO BEDTIME MRX1 PRN PRN Reason: Insomnia Trazodone HCl (Trazodone Hcl 50 Mg Tablet) 150 mg PO BEDTIME [facility] Venlafaxine HCl (Venlafaxine Hcl Er 75 Mg Cap.Er.24h) 75 mg PO DAILY [facility] Home Medications Medication Instructions Recorded Confirmed Last Taken Type docusate sodium 100 mg capsule 100 mg PO DAILY 08/02/22 12/15/22 08/02/22 08:58 History folic acid 1 mg tablet 1 mg PO DAILY 08/02/22 12/15/22 08/02/22 08:58 History multivitamin with folic acid 400 1 tab PO DAILY 08/02/22 12/15/22 08/02/22 08:58 History mcg tablet (Daily-Usha (with folic acid)) pantoprazole 40 mg tablet,delayed 40 mg PO DAILY 08/02/22 12/15/22 08/02/22 05:26 History release Norvasc 5 mg PO DAILY 12/15/22 12/15/22 Unknown History benztropine 1 mg tablet 1 mg PO BID 12/15/22 12/15/22 Unknown History risperidone 2 mg tablet 4 mg PO BEDTIME 12/15/22 12/15/22 Unknown History sertraline 100 mg PO DAILY 12/15/22 12/15/22 Unknown History trazodone 100 mg tablet 150 mg PO BEDTIME 12/15/22 12/15/22 Unknown History Physical Exam Vital Signs and Narrative: Vital Signs: Last Vital Signs Temp 97.2 F 12/15/22 16:34 Pulse 78 12/15/22 16:34 BP 143/89 H 12/15/22 16:34 Pulse Ox 100 12/15/22 16:34 O2 Del Method Room Air 12/15/22 16:34 Constitutional: Alert, in no acute distress. Mental Status: Oriented to person, place and time. Eyes: Pupils are equal, round, and reactive to light. Ear, Nose, and Throat: Oropharynx clear, mucous membranes moist. Ears and nose without deformities. Trachea midline. Respiratory: Clear to auscultation bilaterally. No wheezing, rales, or rhonchi. Cardiovascular: S1, S2 regular. No murmurs, rubs, or gallops. Gastrointestinal: Abdomen soft, non-tender, non-distended. Normal bowel sounds. Neurologic: Cranial nerves II-XII are grossly intact bilaterally. No focal neurological deficits. Moves all extremities spontaneously. Skin: No rashes or lesions noted. Musculoskeletal: No cyanosis or clubbing. Extremities: No edema. Psychiatric: Subdued, flat affect. Assessment and Plan (1) Medical clearance for psychiatric admission: Status: Acute Plan Pt is a 32-year-old male with a PMH significant for HTN, GERD, fyo-ezlawga-chdtweeqy diabetes type 2, and schizophrenia?who is admitted to [facility] psychiat[facility] unit for increasing depression and SI with attempt at overdosing on his home medications. The patient's OFFICE MACHIN[employer] TEACHER apparently found him slumped over in a chair at his house, minimally responsive. Also noted that patient was missing at 3 days of medication from his pillbox. Patient lacks clear memory of the incident, but does endorse SI. Medical consult for admission H&P. Patient denies any acute medical complaints at this time. Mood disorder Plan as per Psychiatry HTN Continue amlodipine GERD Continue PPI Djy-cbdkupq-lazreqcfw diabetes type 2 Patient carries a diagnosis of DM 2 Patient currently not on any home meds, sugars well controlled last admission No need to place on sliding scale insulin at this time Thank you for allowing us to participate in the care of this patient. Signing off at this time. Please let us know if there are any acute complaints or questions. Time Spent With Patient Time: Total time managing care of this patient today ____ minutes.
[2022-12-15 21:30] VITALS: BP 126/73; RESP 18
[2022-12-16 08:00] VITALS: BP 124/79; PULSE 72; RESP 20; TEMP 36.4; O2SAT 98
[2022-12-16 09:00] LABS: MANUAL DIFF FLAG NO
[2022-12-16 09:06] LABS: Basophils Percent Auto 0.7 % (0-2); Eosinophils Absolute Auto 0.2 X10*3/uL (0.0-0.4); Eosinophils Percent Auto 3.4 % (0-4); Hematocrit 40.7 % (42.0-52.0); Hemoglobin 13.2 g/dl (14.0-18.0); Imm Gran Abs Auto 0.01 X10*3/uL (0.00-0.03); Imm Gran Pct Auto 0.2 % (0.0-0.4); Lymphocytes Absolute Auto 1.9 X10*3/uL (1.2-4.9); Lymphocytes Percent Auto 34.1 % (20-40); Mean Corpuscular HGB Conc 32.4 g/dl (31.0-36.0); Mean Corpuscular Hemoglobin 27.4 pg (27.0-33.0); Mean Corpuscular Volume 84.4 fL (80.0-98.0); Mean Platelet Volume 10.4 fL (9.4-12.4); Monocytes Absolute Auto 0.4 X10*3/uL (0.1-1.2); Monocytes Percent Auto 7.8 % (2-11); Neutrophils Percent Auto 53.8 % (45-73); Platelet Count 243 X10*3/uL (160-400); Red Blood Count 4.82 X10*6/uL (4.60-5.80); Red Cell Distribution Width 12.4 % (11.0-16.0); White Blood Count 5.5 X10*3/uL (4.8-10.8)
[2022-12-16 09:19] LABS: Estimated Average Glucose 100 mg/dL; Hemoglobin A1c % 5.1 % (<6.0)
[2022-12-16 09:33] LABS: Alanine Aminotransferase 10 U/L (0-40); Alkaline Phosphatase 41 U/L (39-117); Anion Gap 12 (12-20); Aspartate Amino Transferase 25 U/L (5-37); Bilirubin Direct 0.2 mg/dL (0.0-0.5); Bilirubin Total 0.5 mg/dL (0.0-1.0); Blood Urea Nitrogen 8 mg/dL (9-16); Calcium 9.2 mg/dL (8.4-10.2); Carbon Dioxide 27 mmol/L (22-29); Chloride 108 mmol/L (96-108); Cholesterol 176 mg/dL (<200); Estimated Glomerular Filt Rate > 60; Glucose Fasting 96 mg/dL (60-99); HDL Cholesterol 28 mg/dL (>40); LDL Cholesterol Calculated 137 mg/dL (<100); Potassium 3.3 mmol/L (3.3-5.1); Sodium 144 mmol/L (135-145); Total Protein 6.7 g/dL (6.5-8.0); Triglycerides 57 mg/dL (<150)
[2022-12-16 09:50] LABS: Free T4 (Free Thyroxine) 1.13 ng/dL (0.71-1.85); Thyroid Stimulating Hormone 0.27 uIU/mL (0.32-4.0)
[2022-12-16 10:04] LABS: Folate 15.3 ng/mL (> or = 4.0); Vitamin B12 586 pg/mL (200-900)
[2022-12-16] MEDS: HaloperidoL 5 MG TABLET PO ×3 (13:07→21:19)
[2022-12-16] MEDS: Benztropine Mesylate 1 MG TABLET PO ×2 (13:07→21:19)
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
[2022-12-16] MEDS: hydrOXYzine HCL 25 MG TABLET PO (15:18)
[2022-12-16 15:34] VITALS: BP 146/97; PULSE 78
[2022-12-16] MEDS: amLODIPine Besylate 5 MG TABLET PO (15:35)
[2022-12-16] MEDS: Omeprazole 20 MG CAPSULE.DR PO (15:36)
[2022-12-16 21:02] VITALS: BP 159/90; PULSE 72; RESP 20; TEMP 36.7; O2SAT 100
[2022-12-16] MEDS: Prazosin HCL 1 MG CAPSULE 2 MG PO (21:19)
[2022-12-17 03:25] LABS: Glucose, Whole Blood 92 mg/dL (60-115)
[2022-12-17 07:59] LABS: Glucose, Whole Blood 100 mg/dL (60-115)
[2022-12-17 08:15] VITALS: BP 136/88; PULSE 66; RESP 20; TEMP 36.1; O2SAT 98
[2022-12-17] MEDS: Ferrous Sulfate 324 MG TABLET.DR PO (08:38)
[2022-12-17] MEDS: Omeprazole 20 MG CAPSULE.DR PO (08:38)
[2022-12-17] MEDS: Benztropine Mesylate 1 MG TABLET PO ×2 (08:38→21:34)
[2022-12-17] MEDS: HaloperidoL 5 MG TABLET PO ×2 (08:39→21:34)
[2022-12-17] MEDS: amLODIPine Besylate 5 MG TABLET PO (08:39)
--- NOTE | 2022-12-17 09:39 | P.PNPSI_ITS ---
Subjective Subjective Date of Service: 12/17/22 Reason For Visit: Unspec Schizophrenia Spectrum Etc Subjective Notes: Conditional Voluntary Healthcare Proxy: Yes Interim History: Patient was seen and discussed in rounds today. Records and plans were reviewed. He has been more visible with minimal response when approached. He is disorganized and preoccupied. He states that he feels better. He slept only a few hours but does not 1 a take additional medications. He refused his a.m. medications but took the evening ones. No changes were made today Medication Compliance: Yes Side effects from medications: No Attending Groups: Intermittent Review of Systems Review of Systems Yes all other systems are reviewed and are negative Mental Status Exam Mental Status Exam Narrative: In today's visit he is alert, pleasant and minimally interactive. He appears disorganized and preoccupied. Normal speech. Little eye contact. Affect is constricted. No SI. Could not be assessed cognitively or for judgment. Diagnostics Vital Signs (24Hr): Vital Signs - 24 hr 12/16/22 15:34 12/16/22 21:02 Temperature 98.0 F Pulse Rate 78 72 Respiratory Rate 20 Blood Pressure 146/97 H 159/90 H Pulse Oximetry 100 Oxygen Delivery Method Room Air Labs 12/16/22 08:40 12/16/22 08:40 Labs: Laboratory Results - last 48 hr 12/16/22 12/17/22 12/17/22 08:40 03:21 07:46 WBC 5.5 RBC 4.82 Hgb 13.2 L Hct 40.7 L MCV 84.4 MCH 27.4 MCHC 32.4 RDW 12.4 Plt Count 243 MPV 10.4 Immature Gran % (Auto) 0.2 Neut % (Auto) 53.8 Lymph % (Auto) 34.1 [place] % (Auto) 7.8 Eos % (Auto) 3.4 Baso % (Auto) 0.7 Lymph # (Auto) 1.9 [place] # (Auto) 0.4 Eos # (Auto) 0.2 Baso # (Auto) 0.0 Abs Immat Gran (auto) 0.01 Absolute Neuts (auto) 3.0 Absolute Nucleated RBC 0.000 Nucleated RBC % (auto) 0.0 Sodium 144 Potassium 3.3 D Chloride 108 Carbon Dioxide 27 Anion Gap 12 BUN 8 L Creatinine 0.78 Estim Creat Clear Calc TNP Estimated GFR > 60 POC Glucose 92 100 Fasting Glucose 96 Estimat Average Glucose 100 Hemoglobin A1c % 5.1 Calcium 9.2 Total Bilirubin 0.5 Direct Bilirubin 0.2 AST 25 ALT 10 Alkaline Phosphatase 41 Total Protein 6.7 Albumin 4.0 Triglycerides 57 Cholesterol 176 LDL Cholesterol, Calc 137 H HDL Cholesterol 28 L Vitamin B12 586 Folate 15.3 TSH 0.27 L Free T4 1.13 Medications Medications Current Medications Acetaminophen (Acetaminophen 325 Mg Tablet) 650 mg PO Q6H PRN PRN Reason: Headache/Pain Mild Scale (1-3) Al Hydroxide/Mg Hydroxide (Magnesium Hydrox/Alum Hydrox 30 Ml Oral.Susp) 30 ml PO Q6H PRN PRN Reason: Heartburn/Nausea Amlodipine Besylate (Amlodipine Besylate 5 Mg Tablet) 5 mg PO DAILY [facility] Last Admin: 12/17/22 08:39 Dose: 5 mg Benztropine Mesylate (Benztropine Mesylate 1 Mg Tablet) 1 mg PO BID [facility] Last Admin: 12/17/22 08:38 Dose: 1 mg Docusate Sodium (Docusate Sodium 100 Mg Capsule) 100 mg PO DAILY [facility] Last Admin: 12/16/22 09:02 Dose: Not Given Ferrous Sulfate (Ferrous Sulfate 324 Mg Tablet.) 324 mg PO Q2D@0900 [facility] Last Admin: 12/17/22 08:38 Dose: 324 mg Folic Acid (Folic Acid 1 Mg Tablet) 1 mg PO DAILY [facility] Last Admin: 12/16/22 09:02 Dose: Not Given Haloperidol (Haloperidol 5 Mg Tablet) 5 mg PO Q4H PRN PRN Reason: agitation/anxiety Last Admin: 12/16/22 19:04 Dose: 5 mg Haloperidol (Haloperidol 5 Mg Tablet) 5 mg PO BID [facility] Last Admin: 12/17/22 08:39 Dose: 5 mg Hydroxyzine HCl (Hydroxyzine Hcl 25 Mg Tablet) 25 mg PO Q6H PRN PRN Reason: Anxiety Last Admin: 12/16/22 15:18 Dose: 25 mg Loratadine (Loratadine 10 Mg Tablet) 10 mg PO DAILY [facility] Last Admin: 12/16/22 09:02 Dose: Not Given Magnesium Hydroxide (Milk Of Magnesia 30 Ml Oral.Susp) 30 ml PO DAILY PRN PRN Reason: Constipation Multivitamins/Vitamin C (Multivitamin Tablet) 1 tab PO DAILY [facility] Last Admin: 12/16/22 09:02 Dose: Not Given Nicotine Polacrilex (Nicotine Polacrilex 2 Mg Gum) 4 mg BUCCAL Q2H PRN PRN Reason: Nicotine Cravings Omeprazole (Omeprazole 20 Mg Capsule.Dr) 20 mg PO DAILY@0630 [facility] Last Admin: 12/17/22 08:38 Dose: 20 mg Prazosin HCl (Prazosin Hcl 1 Mg Capsule) 2 mg PO BEDTIME [facility]; Protocol Last Admin: 12/16/22 21:19 Dose: 2 mg Risperidone (Risperidone 2 Mg Tablet) 4 mg PO BEDTIME [facility] Last Admin: 12/15/22 22:55 Dose: Not Given Sertraline HCl (Sertraline Hcl 100 Mg Tablet) 100 mg PO DAILY [facility] Last Admin: 12/16/22 09:03 Dose: Not Given Trazodone HCl (Trazodone Hcl 50 Mg Tablet) 50 mg PO BEDTIME MRX1 PRN PRN Reason: Insomnia Trazodone HCl (Trazodone Hcl 50 Mg Tablet) 150 mg PO BEDTIME [facility] Last Admin: 12/15/22 22:55 Dose: Not Given Venlafaxine HCl (Venlafaxine Hcl Er 75 Mg Cap.Er.24h) 75 mg PO DAILY [facility] Last Admin: 12/16/22 09:03 Dose: Not Given Allergies Allergies Allergy/AdvReac Type Severity Reaction Status Date / Time lisinopril Allergy Unknown Cough Verified 12/15/22 18:44 clonidine AdvReac Unknown Unknown Verified 11/19/22 16:28 Assessment & Plan Assessment & Plan (1) Schizoaffective disorder: Status: Acute Code(s): F25.9 - Schizoaffective disorder, unspecified Plan refusing home meds. trial of haldol 5 BID. hold other meds as pt appears to be suspicious of them. 12/17: Continue current regimen and plans Reason for continued inpatient stay Substantial Risk for: med/psych decompensation Time Spent With Patient Time: Total time managing care of this patient today ____ minutes.
--- NOTE | 2022-12-17 09:44 | P.PNPSI_ITS ---
Subjective Subjective Date of Service: 12/17/22 Reason For Visit: Unspec Schizophrenia Spectrum Etc Subjective Notes: Conditional Voluntary Healthcare Proxy: Yes Interim History: Patient was seen and discussed in rounds today. Records and plans were reviewed. He has been more visible with minimal response when approached. He is disorganized and preoccupied. He states that he feels better. He slept only a few hours but does not 1 a take additional medications. He refused his a.m. medications but took the evening ones. No changes were made today Medication Compliance: Yes Side effects from medications: No Attending Groups: Intermittent Review of Systems Review of Systems Yes all other systems are reviewed and are negative Mental Status Exam Mental Status Exam Narrative: In today's visit he is alert, pleasant and minimally interactive. He appears disorganized and preoccupied. Normal speech. Little eye contact. Affect is constricted. No SI. Could not be assessed cognitively or for judgment. Diagnostics Vital Signs (24Hr): Vital Signs - 24 hr 12/16/22 15:34 12/16/22 21:02 Temperature 98.0 F Pulse Rate 78 72 Respiratory Rate 20 Blood Pressure 146/97 H 159/90 H Pulse Oximetry 100 Oxygen Delivery Method Room Air Labs 12/16/22 08:40 12/16/22 08:40 Labs: Laboratory Results - last 48 hr 12/16/22 12/17/22 12/17/22 08:40 03:21 07:46 WBC 5.5 RBC 4.82 Hgb 13.2 L Hct 40.7 L MCV 84.4 MCH 27.4 MCHC 32.4 RDW 12.4 Plt Count 243 MPV 10.4 Immature Gran % (Auto) 0.2 Neut % (Auto) 53.8 Lymph % (Auto) 34.1 [place] % (Auto) 7.8 Eos % (Auto) 3.4 Baso % (Auto) 0.7 Lymph # (Auto) 1.9 [place] # (Auto) 0.4 Eos # (Auto) 0.2 Baso # (Auto) 0.0 Abs Immat Gran (auto) 0.01 Absolute Neuts (auto) 3.0 Absolute Nucleated RBC 0.000 Nucleated RBC % (auto) 0.0 Sodium 144 Potassium 3.3 D Chloride 108 Carbon Dioxide 27 Anion Gap 12 BUN 8 L Creatinine 0.78 Estim Creat Clear Calc TNP Estimated GFR > 60 POC Glucose 92 100 Fasting Glucose 96 Estimat Average Glucose 100 Hemoglobin A1c % 5.1 Calcium 9.2 Total Bilirubin 0.5 Direct Bilirubin 0.2 AST 25 ALT 10 Alkaline Phosphatase 41 Total Protein 6.7 Albumin 4.0 Triglycerides 57 Cholesterol 176 LDL Cholesterol, Calc 137 H HDL Cholesterol 28 L Vitamin B12 586 Folate 15.3 TSH 0.27 L Free T4 1.13 Medications Medications Current Medications Acetaminophen (Acetaminophen 325 Mg Tablet) 650 mg PO Q6H PRN PRN Reason: Headache/Pain Mild Scale (1-3) Al Hydroxide/Mg Hydroxide (Magnesium Hydrox/Alum Hydrox 30 Ml Oral.Susp) 30 ml PO Q6H PRN PRN Reason: Heartburn/Nausea Amlodipine Besylate (Amlodipine Besylate 5 Mg Tablet) 5 mg PO DAILY [facility] Last Admin: 12/17/22 08:39 Dose: 5 mg Benztropine Mesylate (Benztropine Mesylate 1 Mg Tablet) 1 mg PO BID [facility] Last Admin: 12/17/22 08:38 Dose: 1 mg Docusate Sodium (Docusate Sodium 100 Mg Capsule) 100 mg PO DAILY [facility] Last Admin: 12/16/22 09:02 Dose: Not Given Ferrous Sulfate (Ferrous Sulfate 324 Mg Tablet.) 324 mg PO Q2D@0900 [facility] Last Admin: 12/17/22 08:38 Dose: 324 mg Folic Acid (Folic Acid 1 Mg Tablet) 1 mg PO DAILY [facility] Last Admin: 12/16/22 09:02 Dose: Not Given Haloperidol (Haloperidol 5 Mg Tablet) 5 mg PO Q4H PRN PRN Reason: agitation/anxiety Last Admin: 12/16/22 19:04 Dose: 5 mg Haloperidol (Haloperidol 5 Mg Tablet) 5 mg PO BID [facility] Last Admin: 12/17/22 08:39 Dose: 5 mg Hydroxyzine HCl (Hydroxyzine Hcl 25 Mg Tablet) 25 mg PO Q6H PRN PRN Reason: Anxiety Last Admin: 12/16/22 15:18 Dose: 25 mg Loratadine (Loratadine 10 Mg Tablet) 10 mg PO DAILY [facility] Last Admin: 12/16/22 09:02 Dose: Not Given Magnesium Hydroxide (Milk Of Magnesia 30 Ml Oral.Susp) 30 ml PO DAILY PRN PRN Reason: Constipation Multivitamins/Vitamin C (Multivitamin Tablet) 1 tab PO DAILY [facility] Last Admin: 12/16/22 09:02 Dose: Not Given Nicotine Polacrilex (Nicotine Polacrilex 2 Mg Gum) 4 mg BUCCAL Q2H PRN PRN Reason: Nicotine Cravings Omeprazole (Omeprazole 20 Mg Capsule.Dr) 20 mg PO DAILY@0630 [facility] Last Admin: 12/17/22 08:38 Dose: 20 mg Prazosin HCl (Prazosin Hcl 1 Mg Capsule) 2 mg PO BEDTIME [facility]; Protocol Last Admin: 12/16/22 21:19 Dose: 2 mg Risperidone (Risperidone 2 Mg Tablet) 4 mg PO BEDTIME [facility] Last Admin: 12/15/22 22:55 Dose: Not Given Sertraline HCl (Sertraline Hcl 100 Mg Tablet) 100 mg PO DAILY [facility] Last Admin: 12/16/22 09:03 Dose: Not Given Trazodone HCl (Trazodone Hcl 50 Mg Tablet) 50 mg PO BEDTIME MRX1 PRN PRN Reason: Insomnia Trazodone HCl (Trazodone Hcl 50 Mg Tablet) 150 mg PO BEDTIME [facility] Last Admin: 12/15/22 22:55 Dose: Not Given Venlafaxine HCl (Venlafaxine Hcl Er 75 Mg Cap.Er.24h) 75 mg PO DAILY [facility] Last Admin: 12/16/22 09:03 Dose: Not Given Allergies Allergies Allergy/AdvReac Type Severity Reaction Status Date / Time lisinopril Allergy Unknown Cough Verified 12/15/22 18:44 clonidine AdvReac Unknown Unknown Verified 11/19/22 16:28 Assessment & Plan Assessment & Plan (1) Schizoaffective disorder: Status: Acute Code(s): F25.9 - Schizoaffective disorder, unspecified Plan refusing home meds. trial of haldol 5 BID. hold other meds as pt appears to be suspicious of them. 12/17: Continue current regimen and plans Reason for continued inpatient stay Substantial Risk for: med/psych decompensation Time Spent With Patient Time: Total time managing care of this patient today ____ minutes.
[2022-12-17] MEDS: Acetaminophen 325 MG TABLET 650 MG PO (19:52)
[2022-12-17 20:22] VITALS: BMI 32.9
[2022-12-17 21:20] VITALS: BP 161/88; PULSE 60; RESP 18; TEMP 36.3; O2SAT 99
[2022-12-17] MEDS: Prazosin HCL 1 MG CAPSULE 2 MG PO (21:34)
[2022-12-17] MEDS: hydrOXYzine HCL 25 MG TABLET PO (21:36)
[2022-12-17] MEDS: traZODone HCL 50 MG TABLET PO (21:37)
[2022-12-18] MEDS: Omeprazole 20 MG CAPSULE.DR PO (06:38)
--- NOTE | 2022-12-18 07:48 | P.PNPSI_ITS ---
Subjective Subjective Date of Service: 12/18/22 Reason For Visit: Unspec Schizophrenia Spectrum Etc Subjective Notes: Conditional Voluntary Healthcare Proxy: Yes Interim History: Patient was seen and discussed in rounds today. Records and plans were reviewed. He he continues to show some signs of improvement but still having some trouble with boundaries. He appears preoccupied and sometimes anxious around past events that brought him to the hospital. Sleeping adequately. Medication compliant. No complaints or side effects. No changes were made today Medication Compliance: Yes Side effects from medications: No Attending Groups: Intermittent Review of Systems Review of Systems Yes all other systems are reviewed and are negative Mental Status Exam Mental Status Exam Narrative: In today's visit he is alert, pleasant and minimally interactive. He appears disorganized and preoccupied. Normal speech. Better eye contact. Affect is constricted. No SI. Could not be assessed cognitively or for judgment. Diagnostics Vital Signs (24Hr): Vital Signs - 24 hr 12/17/22 08:15 12/17/22 21:20 Temperature 97.0 F 97.3 F Pulse Rate 66 60 Respiratory Rate 20 18 Blood Pressure 136/88 161/88 H Pulse Oximetry 98 99 Oxygen Delivery Method Room Air Room Air BMI result Body Mass Index 32.9 Labs 12/16/22 08:40 12/16/22 08:40 Labs: Laboratory Results - last 48 hr 12/16/22 12/17/22 12/17/22 08:40 03:21 07:46 WBC 5.5 RBC 4.82 Hgb 13.2 L Hct 40.7 L MCV 84.4 MCH 27.4 MCHC 32.4 RDW 12.4 Plt Count 243 MPV 10.4 Immature Gran % (Auto) 0.2 Neut % (Auto) 53.8 Lymph % (Auto) 34.1 [place] % (Auto) 7.8 Eos % (Auto) 3.4 Baso % (Auto) 0.7 Lymph # (Auto) 1.9 [place] # (Auto) 0.4 Eos # (Auto) 0.2 Baso # (Auto) 0.0 Abs Immat Gran (auto) 0.01 Absolute Neuts (auto) 3.0 Absolute Nucleated RBC 0.000 Nucleated RBC % (auto) 0.0 Sodium 144 Potassium 3.3 D Chloride 108 Carbon Dioxide 27 Anion Gap 12 BUN 8 L Creatinine 0.78 Estim Creat Clear Calc TNP Estimated GFR > 60 POC Glucose 92 100 Fasting Glucose 96 Estimat Average Glucose 100 Hemoglobin A1c % 5.1 Calcium 9.2 Total Bilirubin 0.5 Direct Bilirubin 0.2 AST 25 ALT 10 Alkaline Phosphatase 41 Total Protein 6.7 Albumin 4.0 Triglycerides 57 Cholesterol 176 LDL Cholesterol, Calc 137 H HDL Cholesterol 28 L Vitamin B12 586 Folate 15.3 TSH 0.27 L Free T4 1.13 Medications Medications Current Medications Acetaminophen (Acetaminophen 325 Mg Tablet) 650 mg PO Q6H PRN PRN Reason: Headache/Pain Mild Scale (1-3) Last Admin: 12/17/22 19:52 Dose: 650 mg Al Hydroxide/Mg Hydroxide (Magnesium Hydrox/Alum Hydrox 30 Ml Oral.Susp) 30 ml PO Q6H PRN PRN Reason: Heartburn/Nausea Amlodipine Besylate (Amlodipine Besylate 5 Mg Tablet) 5 mg PO DAILY [facility] Last Admin: 12/17/22 08:39 Dose: 5 mg Benztropine Mesylate (Benztropine Mesylate 1 Mg Tablet) 1 mg PO BID [facility] Last Admin: 12/17/22 21:34 Dose: 1 mg Docusate Sodium (Docusate Sodium 100 Mg Capsule) 100 mg PO DAILY [facility] Last Admin: 12/16/22 09:02 Dose: Not Given Ferrous Sulfate (Ferrous Sulfate 324 Mg Tablet.Dr) 324 mg PO Q2D@0900 [facility] Last Admin: 12/17/22 08:38 Dose: 324 mg Folic Acid (Folic Acid 1 Mg Tablet) 1 mg PO DAILY [facility] Last Admin: 12/16/22 09:02 Dose: Not Given Haloperidol (Haloperidol 5 Mg Tablet) 5 mg PO Q4H PRN PRN Reason: agitation/anxiety Last Admin: 12/16/22 19:04 Dose: 5 mg Haloperidol (Haloperidol 5 Mg Tablet) 5 mg PO BID [facility] Last Admin: 12/17/22 21:34 Dose: 5 mg Hydroxyzine HCl (Hydroxyzine Hcl 25 Mg Tablet) 25 mg PO Q6H PRN PRN Reason: Anxiety Last Admin: 12/17/22 21:36 Dose: 25 mg Loratadine (Loratadine 10 Mg Tablet) 10 mg PO DAILY [facility] Last Admin: 12/16/22 09:02 Dose: Not Given Magnesium Hydroxide (Milk Of Magnesia 30 Ml Oral.Susp) 30 ml PO DAILY PRN PRN Reason: Constipation Multivitamins/Vitamin C (Multivitamin Tablet) 1 tab PO DAILY [facility] Last Admin: 12/16/22 09:02 Dose: Not Given Nicotine Polacrilex (Nicotine Polacrilex 2 Mg Gum) 4 mg BUCCAL Q2H PRN PRN Reason: Nicotine Cravings Omeprazole (Omeprazole 20 Mg Capsule.Dr) 20 mg PO DAILY@0630 [facility] Last Admin: 12/18/22 06:38 Dose: 20 mg Prazosin HCl (Prazosin Hcl 1 Mg Capsule) 2 mg PO BEDTIME [facility]; Protocol Last Admin: 12/17/22 21:34 Dose: 2 mg Risperidone (Risperidone 2 Mg Tablet) 4 mg PO BEDTIME [facility] Last Admin: 12/15/22 22:55 Dose: Not Given Sertraline HCl (Sertraline Hcl 100 Mg Tablet) 100 mg PO DAILY [facility] Last Admin: 12/16/22 09:03 Dose: Not Given Trazodone HCl (Trazodone Hcl 50 Mg Tablet) 50 mg PO BEDTIME MRX1 PRN PRN Reason: Insomnia Last Admin: 12/17/22 21:37 Dose: 50 mg Trazodone HCl (Trazodone Hcl 50 Mg Tablet) 150 mg PO BEDTIME [facility] Last Admin: 12/15/22 22:55 Dose: Not Given Venlafaxine HCl (Venlafaxine Hcl Er 75 Mg Cap.Er.24h) 75 mg PO DAILY [facility] Last Admin: 12/16/22 09:03 Dose: Not Given Allergies Allergies Allergy/AdvReac Type Severity Reaction Status Date / Time lisinopril Allergy Unknown Cough Verified 12/15/22 18:44 clonidine AdvReac Unknown Unknown Verified 11/19/22 16:28 Assessment & Plan Assessment & Plan (1) Schizoaffective disorder: Status: Acute Code(s): F25.9 - Schizoaffective disorder, unspecified Plan refusing home meds. trial of haldol 5 BID. hold other meds as pt appears to be suspicious of them. 12/17: Continue current regimen and plans 12/18: Continue current regimen and plans Reason for continued inpatient stay Substantial Risk for: med/psych decompensation Time Spent With Patient Time: Total time managing care of this patient today ____ minutes.
[2022-12-18 08:10] LABS: Glucose, Whole Blood 95 mg/dL (60-115)
[2022-12-18] MEDS: HaloperidoL 5 MG TABLET PO ×3 (08:36→22:21)
[2022-12-18] MEDS: amLODIPine Besylate 5 MG TABLET PO (08:36)
[2022-12-18] MEDS: Benztropine Mesylate 1 MG TABLET PO ×2 (08:37→22:21)
[2022-12-18 08:58] VITALS: BP 147/91; PULSE 67; RESP 16; TEMP 36.1; O2SAT 99
[2022-12-18] MEDS: Gabapentin 600 MG TABLET PO (10:50)
[2022-12-18] MEDS: Magnesium Hydrox/Alum Hydrox 30 ML ORAL.SUSP PO (14:07)
[2022-12-18] MEDS: hydrOXYzine HCL 25 MG TABLET PO (19:16)
[2022-12-18] MEDS: Acetaminophen 325 MG TABLET 650 MG PO (21:21)
[2022-12-18 22:15] VITALS: BP 144/70; PULSE 64; RESP 18; TEMP 36.6; O2SAT 97
[2022-12-18] MEDS: Prazosin HCL 1 MG CAPSULE 2 MG PO (22:21)
[2022-12-19] MEDS: traZODone HCL 50 MG TABLET PO (00:02)
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
--- NOTE | 2022-12-19 03:50 | PC.NURSE ---
verbalizing wanting to leave and requested to speak with the nursing casework supervisor. casework supervisor spoke with the patient. reinforced to patient that he is unable to be discharged but will convey his request to the psychiatrist. patient has submitted a 3 day notice.
[2022-12-19 06:00] VITALS: BP 150/94; PULSE 75; RESP 18; TEMP 36.4; O2SAT 98
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
[2022-12-19 07:42] LABS: Glucose, Whole Blood 75 mg/dL (60-115)
[2022-12-19] MEDS: HaloperidoL 5 MG TABLET PO ×2 (08:18→22:17)
[2022-12-19] MEDS: Benztropine Mesylate 1 MG TABLET PO ×2 (08:18→22:16)
[2022-12-19] MEDS: amLODIPine Besylate 5 MG TABLET PO (08:18)
[2022-12-19] MEDS: Omeprazole 20 MG CAPSULE.DR PO (08:18)
[2022-12-19] MEDS: Gabapentin 600 MG TABLET PO (08:18)
[2022-12-19] MEDS: Acetaminophen 325 MG TABLET 650 MG PO ×2 (10:34→22:18)
--- NOTE | 2022-12-19 13:00 | HO.PSYCHPN ---
Subjective Subjective Date of Service: 12/19/22 Reason For Visit: Unspec Schizophrenia Spectrum Etc Interim History: pt essentially non-verbal again today, some gesturing and perhaps very soft vocalizations. indicates he is doing so-so. c/o somatic pain throughout his body. very somnolent, falling sleep on the edge of his bed and then again while standing. MD encouraged pt to take a nap, which he ultimately appeared to do. per staff, guarded, increased latency of response. appears preoccupied. slept after getting trazodone. wanted to leave monday. staring at others. c/o body aches and feeling cold. slept 12:15 to 0500. 3-day notice up 12/22. Mental Status Exam Mental Status Exam Narrative: In today's visit he is very somnolent, pleasant and very minimally interactive. He appears disorganized and preoccupied. mute. fair eye contact. Affect is constricted. No SI/HI/AVH expressed. Could not be assessed cognitively or for judgment. Diagnostics Vital Signs (24Hr): Vital Signs - 24 hr 12/18/22 22:15 12/19/22 06:00 Temperature 98 F 97.6 F Pulse Rate 64 75 Respiratory Rate 18 18 Blood Pressure 144/70 H 150/94 H Pulse Oximetry 97 98 Oxygen Delivery Method Room Air BMI result Body Mass Index 32.9 Labs 12/16/22 08:40 12/16/22 08:40 Labs: Laboratory Results - last 48 hr 12/18/22 12/19/22 07:52 07:36 POC Glucose 95 75 Medications Medications Current Medications Acetaminophen (Acetaminophen 325 Mg Tablet) 650 mg PO Q6H PRN PRN Reason: Headache/Pain Mild Scale (1-3) Last Admin: 12/19/22 10:34 Dose: 650 mg Al Hydroxide/Mg Hydroxide (Magnesium Hydrox/Alum Hydrox 30 Ml Oral.Susp) 30 ml PO Q6H PRN PRN Reason: Heartburn/Nausea Last Admin: 12/18/22 14:07 Dose: 30 ml Amlodipine Besylate (Amlodipine Besylate 5 Mg Tablet) 5 mg PO DAILY [facility] Last Admin: 12/19/22 08:18 Dose: 5 mg Benztropine Mesylate (Benztropine Mesylate 1 Mg Tablet) 1 mg PO BID [facility] Last Admin: 12/19/22 08:18 Dose: 1 mg Docusate Sodium (Docusate Sodium 100 Mg Capsule) 100 mg PO DAILY [facility] Last Admin: 12/16/22 09:02 Dose: Not Given Ferrous Sulfate (Ferrous Sulfate 324 Mg Tablet.) 324 mg PO Q2D@0900 [facility] Last Admin: 12/17/22 08:38 Dose: 324 mg Folic Acid (Folic Acid 1 Mg Tablet) 1 mg PO DAILY [facility] Last Admin: 12/16/22 09:02 Dose: Not Given Gabapentin (Gabapentin 600 Mg Tablet) 600 mg PO DAILY [facility] Last Admin: 12/19/22 08:18 Dose: 600 mg Haloperidol (Haloperidol 5 Mg Tablet) 5 mg PO Q4H PRN PRN Reason: agitation/anxiety Last Admin: 12/18/22 19:15 Dose: 5 mg Haloperidol (Haloperidol 5 Mg Tablet) 5 mg PO BID [facility] Last Admin: 12/19/22 08:18 Dose: 5 mg Hydroxyzine HCl (Hydroxyzine Hcl 25 Mg Tablet) 25 mg PO Q6H PRN PRN Reason: Anxiety Last Admin: 12/18/22 19:16 Dose: 25 mg Loratadine (Loratadine 10 Mg Tablet) 10 mg PO DAILY [facility] Last Admin: 12/16/22 09:02 Dose: Not Given Magnesium Hydroxide (Milk Of Magnesia 30 Ml Oral.Susp) 30 ml PO DAILY PRN PRN Reason: Constipation Multivitamins/Vitamin C (Multivitamin Tablet) 1 tab PO DAILY [facility] Last Admin: 12/16/22 09:02 Dose: Not Given Nicotine Polacrilex (Nicotine Polacrilex 2 Mg Gum) 4 mg BUCCAL Q2H PRN PRN Reason: Nicotine Cravings Omeprazole (Omeprazole 20 Mg Capsule.) 20 mg PO DAILY@0630 [facility] Last Admin: 12/19/22 08:18 Dose: 20 mg Prazosin HCl (Prazosin Hcl 1 Mg Capsule) 2 mg PO BEDTIME [facility]; Protocol Last Admin: 12/18/22 22:21 Dose: 2 mg Risperidone (Risperidone 2 Mg Tablet) 4 mg PO BEDTIME [facility] Last Admin: 12/15/22 22:55 Dose: Not Given Sertraline HCl (Sertraline Hcl 100 Mg Tablet) 100 mg PO DAILY [facility] Last Admin: 12/16/22 09:03 Dose: Not Given Trazodone HCl (Trazodone Hcl 50 Mg Tablet) 50 mg PO BEDTIME MRX1 PRN PRN Reason: Insomnia Last Admin: 12/19/22 00:02 Dose: 50 mg Trazodone HCl (Trazodone Hcl 50 Mg Tablet) 150 mg PO BEDTIME [facility] Last Admin: 12/15/22 22:55 Dose: Not Given Venlafaxine HCl (Venlafaxine Hcl Er 75 Mg Cap.Er.24h) 75 mg PO DAILY [facility] Last Admin: 12/16/22 09:03 Dose: Not Given Allergies Allergies Allergy/AdvReac Type Severity Reaction Status Date / Time lisinopril Allergy Unknown Cough Verified 12/15/22 18:44 clonidine AdvReac Unknown Unknown Verified 11/19/22 16:28 Assessment & Plan Assessment & Plan (1) Schizoaffective disorder: Status: Acute Code(s): F25.9 - Schizoaffective disorder, unspecified Plan 12/16: refusing home meds. trial of haldol 5 BID. hold other meds as pt appears to be suspicious of them. 12/17: Continue current regimen and plans 12/18: Continue current regimen and plans 12/19: gabapentin 600 mg daily was started this morning, may be connected to substantial sedation. change order to 200 mg TID for now. otherwise continue current mgmt and observe for level of consciousness. assess indication for gabapentin moving forward, as no known indication for it exists at present. Reason for continued inpatient stay Substantial Risk for: harm to self and inability to function Time Spent With Patient Time: Total time managing care of this patient today __35__ minutes.
[2022-12-19] MEDS: Gabapentin 100 MG CAPSULE 200 MG PO ×2 (15:15→22:17)
[2022-12-19 20:10] VITALS: BP 159/93; PULSE 83; RESP 16; TEMP 36.3; O2SAT 100
[2022-12-19 22:10] VITALS: BP 142/65; PULSE 103; RESP 18; O2SAT 96
[2022-12-19] MEDS: Prazosin HCL 1 MG CAPSULE 2 MG PO (22:18)
[2022-12-19] MEDS: Magnesium Hydrox/Alum Hydrox 30 ML ORAL.SUSP PO (23:02)
[2022-12-19] MEDS: hydrOXYzine HCL 25 MG TABLET PO (23:04)
[2022-12-20] MEDS: Omeprazole 20 MG CAPSULE.DR PO (05:45)
[2022-12-20] MEDS: Acetaminophen 325 MG TABLET 650 MG PO (05:45)
[2022-12-20 08:17] LABS: Glucose, Whole Blood 104 mg/dL (60-115)
[2022-12-20] MEDS: Multivitamin TABLET 1 TAB PO (08:28)
[2022-12-20] MEDS: Gabapentin 100 MG CAPSULE 200 MG PO ×3 (08:28→21:26)
[2022-12-20] MEDS: HaloperidoL 5 MG TABLET PO ×2 (08:28→21:27)
[2022-12-20] MEDS: Folic Acid 1 MG TABLET PO (08:28)
[2022-12-20] MEDS: Docusate Sodium 100 MG CAPSULE PO (08:28)
[2022-12-20] MEDS: Benztropine Mesylate 1 MG TABLET PO ×2 (08:29→21:27)
[2022-12-20] MEDS: amLODIPine Besylate 5 MG TABLET PO (08:29)
[2022-12-20 09:08] VITALS: BP 129/72; PULSE 82; TEMP 36.3; O2SAT 95
--- NOTE | 2022-12-20 09:20 | HO.PSYCHPN ---
Subjective Subjective Date of Service: 12/20/22 Reason For Visit: Unspec Schizophrenia Spectrum Etc Interim History: pt essentially non-verbal again today, some gesturing and perhaps very soft vocalizations. indicates he is doing so-so. c/o somatic pain throughout his body. very somnolent, falling sleep on the edge of his bed and then again while standing. MD encouraged pt to take a nap, which he ultimately appeared to do. per staff, guarded, increased latency of response. appears preoccupied. slept after getting trazodone. wanted to leave monday. staring at others. c/o body aches and feeling cold. slept 12:15 to 0500. 3-day notice up 12/22. Review of Systems Review of Systems Patient denies any acute medical complaints at this time Yes all other systems are reviewed and are negative Mental Status Exam Mental Status Exam Narrative: Appearance: casually groomed, fair hygiene, in NAD behavior: cooperative Psychomotor: no agitation or retardation noted Speech: clear, some mild delay in response, spontaneous TP: mostly linear TC: feeling better, hoping to go home soon Mood: good Affect: constricted but congruent SI: denies HI: denies VH/AH: appears internally preoccupied but less so than before Delusions: paranoid delusions, less than before Insight/judgment: poor x 2. memory/cog: alert, oriented x 3 attention mildly impaired due to psychosis. Diagnostics Vital Signs (24Hr): Vital Signs - 24 hr 12/19/22 20:10 12/19/22 22:10 12/20/22 09:08 Temperature 97.4 F 97.3 F Pulse Rate 83 103 H 82 Respiratory Rate 16 18 Blood Pressure 159/93 H 142/65 H 129/72 Pulse Oximetry 100 96 95 Oxygen Delivery Method Room Air Room Air Room Air BMI result Body Mass Index 32.9 Labs 12/16/22 08:40 12/16/22 08:40 Labs: Laboratory Results - last 48 hr 12/19/22 12/20/22 07:36 08:05 POC Glucose 75 104 Medications Medications Current Medications Acetaminophen (Acetaminophen 325 Mg Tablet) 650 mg PO Q6H PRN PRN Reason: Headache/Pain Mild Scale (1-3) Last Admin: 12/20/22 05:45 Dose: 650 mg Al Hydroxide/Mg Hydroxide (Magnesium Hydrox/Alum Hydrox 30 Ml Oral.Susp) 30 ml PO Q6H PRN PRN Reason: Heartburn/Nausea Last Admin: 12/19/22 23:02 Dose: 30 ml Amlodipine Besylate (Amlodipine Besylate 5 Mg Tablet) 5 mg PO DAILY [facility] Last Admin: 12/20/22 08:29 Dose: 5 mg Benztropine Mesylate (Benztropine Mesylate 1 Mg Tablet) 1 mg PO BID [facility] Last Admin: 12/20/22 08:29 Dose: 1 mg Docusate Sodium (Docusate Sodium 100 Mg Capsule) 100 mg PO DAILY [facility] Last Admin: 12/20/22 08:28 Dose: 100 mg Ferrous Sulfate (Ferrous Sulfate 324 Mg Tablet.) 324 mg PO Q2D@0900 [facility] Last Admin: 12/17/22 08:38 Dose: 324 mg Folic Acid (Folic Acid 1 Mg Tablet) 1 mg PO DAILY [facility] Last Admin: 12/20/22 08:28 Dose: 1 mg Gabapentin (Gabapentin 100 Mg Capsule) 200 mg PO TID [facility] Last Admin: 12/20/22 08:28 Dose: 200 mg Haloperidol (Haloperidol 5 Mg Tablet) 5 mg PO Q4H PRN PRN Reason: agitation/anxiety Last Admin: 12/18/22 19:15 Dose: 5 mg Haloperidol (Haloperidol 5 Mg Tablet) 5 mg PO BID [facility] Last Admin: 12/20/22 08:28 Dose: 5 mg Hydroxyzine HCl (Hydroxyzine Hcl 25 Mg Tablet) 25 mg PO Q6H PRN PRN Reason: Anxiety Last Admin: 12/19/22 23:04 Dose: 25 mg Loratadine (Loratadine 10 Mg Tablet) 10 mg PO DAILY [facility] Last Admin: 12/16/22 09:02 Dose: Not Given Magnesium Hydroxide (Milk Of Magnesia 30 Ml Oral.Susp) 30 ml PO DAILY PRN PRN Reason: Constipation Multivitamins/Vitamin C (Multivitamin Tablet) 1 tab PO DAILY [facility] Last Admin: 12/20/22 08:28 Dose: 1 tab Nicotine Polacrilex (Nicotine Polacrilex 2 Mg Gum) 4 mg BUCCAL Q2H PRN PRN Reason: Nicotine Cravings Omeprazole (Omeprazole 20 Mg Capsule.) 20 mg PO DAILY@0630 [facility] Last Admin: 12/20/22 05:45 Dose: 20 mg Prazosin HCl (Prazosin Hcl 1 Mg Capsule) 2 mg PO BEDTIME [facility]; Protocol Last Admin: 12/19/22 22:18 Dose: 2 mg Risperidone (Risperidone 2 Mg Tablet) 4 mg PO BEDTIME [facility] Last Admin: 12/15/22 22:55 Dose: Not Given Sertraline HCl (Sertraline Hcl 100 Mg Tablet) 100 mg PO DAILY [facility] Last Admin: 12/16/22 09:03 Dose: Not Given Trazodone HCl (Trazodone Hcl 50 Mg Tablet) 50 mg PO BEDTIME MRX1 PRN PRN Reason: Insomnia Last Admin: 12/19/22 00:02 Dose: 50 mg Trazodone HCl (Trazodone Hcl 50 Mg Tablet) 150 mg PO BEDTIME [facility] Last Admin: 12/15/22 22:55 Dose: Not Given Venlafaxine HCl (Venlafaxine Hcl Er 75 Mg Cap.Er.24h) 75 mg PO DAILY [facility] Last Admin: 12/16/22 09:03 Dose: Not Given Allergies Allergies Allergy/AdvReac Type Severity Reaction Status Date / Time lisinopril Allergy Unknown Cough Verified 12/15/22 18:44 clonidine AdvReac Unknown Unknown Verified 11/19/22 16:28 Assessment & Plan Assessment & Plan (1) Schizoaffective disorder: Status: Acute Code(s): F25.9 - Schizoaffective disorder, unspecified Plan 12/16: refusing home meds. trial of haldol 5 BID. hold other meds as pt appears to be suspicious of them. 12/17: Continue current regimen and plans 12/18: Continue current regimen and plans 12/19: gabapentin 600 mg daily was started this morning, may be connected to substantial sedation. change order to 200 mg TID for now. otherwise continue current mgmt and observe for level of consciousness. assess indication for gabapentin moving forward, as no known indication for it exists at present. 12/20 continue tx. Reason for continued inpatient stay Substantial Risk for: inability to function Time Spent With Patient Time: Total time managing care of this patient today ____ minutes.
[2022-12-20] MEDS: Prazosin HCL 1 MG CAPSULE 2 MG PO (21:27)
[2022-12-21 06:00] VITALS: BP 129/73; PULSE 85; TEMP 26; O2SAT 98
[2022-12-21] MEDS: Omeprazole 20 MG CAPSULE.DR PO (07:02)
[2022-12-21 08:35] LABS: Glucose, Whole Blood 104 mg/dL (60-115)
[2022-12-21] MEDS: Gabapentin 100 MG CAPSULE 200 MG PO ×2 (09:15→14:32)
[2022-12-21] MEDS: Docusate Sodium 100 MG CAPSULE PO (09:15)
[2022-12-21] MEDS: HaloperidoL 5 MG TABLET PO ×2 (09:16→16:55)
[2022-12-21] MEDS: Multivitamin TABLET 1 TAB PO (09:16)
[2022-12-21] MEDS: amLODIPine Besylate 5 MG TABLET PO (09:16)
[2022-12-21] MEDS: Folic Acid 1 MG TABLET PO (09:16)
[2022-12-21] MEDS: Benztropine Mesylate 1 MG TABLET PO (09:16)
[2022-12-21] MEDS: Ferrous Sulfate 324 MG TABLET.DR PO (09:16)
[2022-12-21] MEDS: hydrOXYzine HCL 25 MG TABLET PO (16:55)
[2022-12-21 19:15] VITALS: BP 170/81; PULSE 114; RESP 18; O2SAT 96
[2022-12-21] MEDS: diphenhydrAMINE HCL 50 MG/ML VIAL IM (19:17)
[2022-12-21] MEDS: Haloperidol Lactate 5 MG/ML VIAL 10 MG IM (19:17)
[2022-12-21] MEDS: LORazepam 2 MG/ML VIAL IM (19:17)
--- NOTE | 2022-12-21 19:23 | PM.EVENT ---
Event Note Date of Service: 12/21/22 Event Note: seen after restraint, patient appears alert, no acute distress, respiration wnl Time Spent With Patient Time: Total time managing care of this patient today ____ minutes.
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
[2022-12-21 19:30] VITALS: BP 141/71; PULSE 102; RESP 18; TEMP 36.9; O2SAT 98
[2022-12-21 19:45] VITALS: BP 133/79; PULSE 115; RESP 18; TEMP 36.8; O2SAT 98
[2022-12-21 20:00] VITALS: BP 133/73; PULSE 110; RESP 16; TEMP 36.5; O2SAT 98
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
[2022-12-22 00:45] VITALS: BP 127/72; PULSE 102; RESP 18; O2SAT 98
[2022-12-22] MEDS: Benztropine Mesylate 1 MG TABLET PO ×3 (00:53→20:13)
[2022-12-22] MEDS: Prazosin HCL 1 MG CAPSULE 2 MG PO ×2 (00:53→20:13)
[2022-12-22] MEDS: HaloperidoL 5 MG TABLET PO ×3 (00:54→16:36)
[2022-12-22] MEDS: Gabapentin 100 MG CAPSULE 200 MG PO ×4 (00:54→20:13)
[2022-12-22 07:00] VITALS: BMI 33.1
[2022-12-22 07:52] VITALS: BP 145/83; PULSE 87; RESP 16; TEMP 36.6; O2SAT 100
[2022-12-22 08:20] LABS: Glucose, Whole Blood 101 mg/dL (60-115)
[2022-12-22] MEDS: Omeprazole 20 MG CAPSULE.DR PO (08:48)
[2022-12-22] MEDS: amLODIPine Besylate 5 MG TABLET PO (08:48)
[2022-12-22] MEDS: Multivitamin TABLET 1 TAB PO (08:49)
[2022-12-22] MEDS: Folic Acid 1 MG TABLET PO (08:49)
[2022-12-22] MEDS: Docusate Sodium 100 MG CAPSULE PO (08:50)
[2022-12-22] MEDS: clonazePAM 0.5 MG TABLET PO ×2 (09:54→20:13)
[2022-12-22] MEDS: hydrOXYzine HCL 25 MG TABLET PO (16:36)
[2022-12-22] MEDS: diphenhydrAMINE HCL 25 MG CAPSULE 50 MG PO (18:26)
--- NOTE | 2022-12-22 18:29 | PC.NURSE ---
Approached staff at 1800 and stated he just ate fish and now had itchy nose and face. Stated he has never been allergic to fish. No sob, no difficulty with swallowing, redness or swelling noted. Requested allergy med. Monica Ramos, inpt prescriber, notified. Order for Benadryl 50mg po now obtained and given at 1826 with effects pending. Fish was Cod; fish not placed on allergy list at present time-reviewed with Monica Ramos. No prior allergy to fish, no outward signs of allergy. Possible c/o itch due to non food allergy or paranoia. Will continue to monitor.
--- NOTE | 2022-12-22 19:24 | PC.NURSE ---
Patient increasingly paranoid. Requesting to sleep in restraint room stating he does not like his roommate and does not want him in his room. Unable to further state what he did not like about the room mate. Offered PRN medication however patient declined. Agreed to watch tv in conference room at this time.
[2022-12-22 20:08] VITALS: BP 143/81; PULSE 92; RESP 18; TEMP 36.2; O2SAT 96
[2022-12-22] MEDS: HaloperidoL 5 MG TABLET 10 MG PO (20:13)
[2022-12-22] MEDS: traZODone HCL 50 MG TABLET PO (20:13)
[2022-12-22] MEDS: Magnesium Hydrox/Alum Hydrox 30 ML ORAL.SUSP PO (20:53)
[2022-12-23 06:00] VITALS: BP 115/67; PULSE 90; TEMP 36.2; O2SAT 98
[2022-12-23 07:40] LABS: Glucose, Whole Blood 106 mg/dL (60-115)
[2022-12-23] MEDS: Omeprazole 20 MG CAPSULE.DR PO (08:42)
[2022-12-23] MEDS: Docusate Sodium 100 MG CAPSULE PO (08:42)
[2022-12-23] MEDS: HaloperidoL 5 MG TABLET PO (08:42)
[2022-12-23] MEDS: Folic Acid 1 MG TABLET PO (08:42)
[2022-12-23] MEDS: Gabapentin 100 MG CAPSULE 200 MG PO ×3 (08:42→21:50)
[2022-12-23] MEDS: clonazePAM 0.5 MG TABLET PO ×2 (08:42→21:50)
[2022-12-23] MEDS: Ferrous Sulfate 324 MG TABLET.DR PO (08:42)
[2022-12-23] MEDS: Multivitamin TABLET 1 TAB PO (08:42)
[2022-12-23] MEDS: amLODIPine Besylate 5 MG TABLET PO (08:42)
[2022-12-23] MEDS: Benztropine Mesylate 1 MG TABLET PO ×2 (08:43→21:49)
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
[2022-12-23] MEDS: Magnesium Hydrox/Alum Hydrox 30 ML ORAL.SUSP PO (18:46)
[2022-12-23 20:15] VITALS: BP 156/86; PULSE 96; RESP 18; TEMP 36.8; O2SAT 97
[2022-12-23] MEDS: Prazosin HCL 1 MG CAPSULE 2 MG PO (21:49)
[2022-12-23] MEDS: HaloperidoL 5 MG TABLET 10 MG PO (21:50)
[2022-12-23] MEDS: traZODone HCL 50 MG TABLET PO ×2 (21:50→23:38)
[2022-12-23] MEDS: hydrOXYzine HCL 25 MG TABLET PO (23:38)
[2022-12-24] MEDS: Omeprazole 20 MG CAPSULE.DR PO (07:58)
[2022-12-24] MEDS: clonazePAM 0.5 MG TABLET PO ×2 (07:59→22:56)
[2022-12-24] MEDS: Gabapentin 100 MG CAPSULE 200 MG PO ×3 (07:59→22:55)
[2022-12-24] MEDS: Benztropine Mesylate 1 MG TABLET PO ×2 (07:59→22:55)
[2022-12-24] MEDS: Multivitamin TABLET 1 TAB PO (07:59)
[2022-12-24] MEDS: Docusate Sodium 100 MG CAPSULE PO (07:59)
[2022-12-24] MEDS: amLODIPine Besylate 5 MG TABLET PO (07:59)
[2022-12-24 08:00] VITALS: BP 136/75; PULSE 89; RESP 16; TEMP 36.2; O2SAT 93
[2022-12-24] MEDS: Folic Acid 1 MG TABLET PO (08:00)
[2022-12-24] MEDS: HaloperidoL 5 MG TABLET PO (08:00)
[2022-12-24 08:02] LABS: Glucose, Whole Blood 101 mg/dL (60-115)
[2022-12-24] MEDS: Acetaminophen 325 MG TABLET 650 MG PO (12:55)
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
[2022-12-24 22:50] VITALS: BP 153/86; PULSE 91; RESP 18; TEMP 36.7; O2SAT 97
[2022-12-24] MEDS: Prazosin HCL 1 MG CAPSULE 2 MG PO (22:55)
[2022-12-24] MEDS: HaloperidoL 5 MG TABLET 10 MG PO (22:56)
[2022-12-25 08:00] VITALS: BP 135/75; PULSE 89; RESP 16; TEMP 36.2; O2SAT 97
[2022-12-25 08:15] LABS: Glucose, Whole Blood 97 mg/dL (60-115)
[2022-12-25] MEDS: Folic Acid 1 MG TABLET PO (08:34)
[2022-12-25] MEDS: Gabapentin 100 MG CAPSULE 200 MG PO ×3 (08:34→21:16)
[2022-12-25] MEDS: Docusate Sodium 100 MG CAPSULE PO (08:35)
[2022-12-25] MEDS: Multivitamin TABLET 1 TAB PO (08:35)
[2022-12-25] MEDS: Ferrous Sulfate 324 MG TABLET.DR PO (08:35)
[2022-12-25] MEDS: clonazePAM 0.5 MG TABLET PO ×2 (08:35→21:17)
[2022-12-25] MEDS: HaloperidoL 5 MG TABLET PO (08:35)
[2022-12-25] MEDS: Benztropine Mesylate 1 MG TABLET PO ×2 (08:35→21:17)
[2022-12-25] MEDS: amLODIPine Besylate 5 MG TABLET PO (08:36)
[2022-12-25] MEDS: Omeprazole 20 MG CAPSULE.DR PO (08:36)
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
[2022-12-25 21:10] VITALS: BP 155/96; PULSE 95; RESP 18; TEMP 36.6; O2SAT 99
[2022-12-25] MEDS: Prazosin HCL 1 MG CAPSULE 2 MG PO (21:16)
[2022-12-25] MEDS: HaloperidoL 5 MG TABLET 10 MG PO (21:17)
[2022-12-25] MEDS: hydrOXYzine HCL 25 MG TABLET PO (21:17)
[2022-12-25] MEDS: traZODone HCL 50 MG TABLET PO (22:21)
[2022-12-26] MEDS: Acetaminophen 325 MG TABLET 650 MG PO ×3 (06:35→22:18)
[2022-12-26] MEDS: Omeprazole 20 MG CAPSULE.DR PO (06:35)
[2022-12-26 08:15] VITALS: BP 139/73; PULSE 94; RESP 16; TEMP 36.2; O2SAT 97
[2022-12-26] MEDS: HaloperidoL 5 MG TABLET PO ×2 (08:20→11:30)
[2022-12-26] MEDS: clonazePAM 0.5 MG TABLET PO (08:20)
[2022-12-26] MEDS: amLODIPine Besylate 5 MG TABLET PO (08:20)
[2022-12-26] MEDS: Folic Acid 1 MG TABLET PO (08:20)
[2022-12-26] MEDS: Docusate Sodium 100 MG CAPSULE PO (08:20)
[2022-12-26] MEDS: Multivitamin TABLET 1 TAB PO (08:21)
[2022-12-26] MEDS: Gabapentin 100 MG CAPSULE 200 MG PO ×3 (08:21→22:17)
[2022-12-26] MEDS: Benztropine Mesylate 1 MG TABLET PO ×2 (08:21→22:18)
[2022-12-26 08:46] LABS: Glucose, Whole Blood 118 mg/dL (60-115)
[2022-12-26] MEDS: Lithium Carbonate ER 300 MG TABLET.ER 600 MG PO ×2 (11:42→22:16)
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
[2022-12-26 19:47] VITALS: BP 140/75; PULSE 90; RESP 18; TEMP 36.3; O2SAT 95
[2022-12-26 22:10] VITALS: BP 173/95; PULSE 85
[2022-12-26] MEDS: Prazosin HCL 1 MG CAPSULE 2 MG PO (22:16)
[2022-12-26] MEDS: traZODone HCL 50 MG TABLET PO (22:17)
[2022-12-26] MEDS: hydrOXYzine HCL 25 MG TABLET PO (22:18)
[2022-12-26] MEDS: HaloperidoL 5 MG TABLET 10 MG PO (22:18)
[2022-12-27 06:00] VITALS: BP 143/73; PULSE 89; TEMP 36.1; O2SAT 98
[2022-12-27] MEDS: Omeprazole 20 MG CAPSULE.DR PO (06:08)
[2022-12-27 07:34] LABS: Glucose, Whole Blood 110 mg/dL (60-115)
[2022-12-27] MEDS: Acetaminophen 325 MG TABLET 650 MG PO ×3 (07:50→21:00)
[2022-12-27] MEDS: Gabapentin 100 MG CAPSULE 200 MG PO ×3 (08:24→21:51)
[2022-12-27] MEDS: Benztropine Mesylate 1 MG TABLET PO ×2 (08:24→21:50)
[2022-12-27] MEDS: amLODIPine Besylate 5 MG TABLET PO (08:24)
[2022-12-27] MEDS: Multivitamin TABLET 1 TAB PO (08:24)
[2022-12-27] MEDS: HaloperidoL 5 MG TABLET 10 MG PO ×2 (08:24→21:50)
[2022-12-27] MEDS: Lithium Carbonate ER 300 MG TABLET.ER 600 MG PO ×2 (08:24→21:50)
[2022-12-27] MEDS: Docusate Sodium 100 MG CAPSULE PO (08:25)
[2022-12-27] MEDS: Folic Acid 1 MG TABLET PO (08:25)
[2022-12-27] MEDS: Ferrous Sulfate 324 MG TABLET.DR PO (08:25)
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
[2022-12-27] MEDS: Capsaicin 0.025% Cream 60 GM TUBE 1 APPL TOPICAL ×2 (17:29→21:59)
[2022-12-27] MEDS: Prazosin HCL 1 MG CAPSULE 2 MG PO (21:52)
[2022-12-27 21:55] VITALS: BP 143/70; PULSE 90; RESP 16; TEMP 36.4; O2SAT 96
[2022-12-27] MEDS: traZODone HCL 50 MG TABLET PO (21:59)
[2022-12-28] MEDS: Omeprazole 20 MG CAPSULE.DR PO (06:23)
[2022-12-28] MEDS: Capsaicin 0.025% Cream 60 GM TUBE 1 APPL TOPICAL ×2 (06:24→14:44)
[2022-12-28 07:35] VITALS: BP 132/81; PULSE 106; RESP 18; TEMP 36.3; O2SAT 95
[2022-12-28 07:39] LABS: Glucose, Whole Blood 97 mg/dL (60-115)
[2022-12-28] MEDS: Docusate Sodium 100 MG CAPSULE PO (08:23)
[2022-12-28] MEDS: Lithium Carbonate ER 300 MG TABLET.ER 600 MG PO ×2 (08:23→20:05)
[2022-12-28] MEDS: Benztropine Mesylate 1 MG TABLET PO ×2 (08:23→20:06)
[2022-12-28] MEDS: Gabapentin 100 MG CAPSULE 200 MG PO ×3 (08:23→20:05)
[2022-12-28] MEDS: Multivitamin TABLET 1 TAB PO (08:23)
[2022-12-28] MEDS: Folic Acid 1 MG TABLET PO (08:23)
[2022-12-28] MEDS: HaloperidoL 5 MG TABLET 10 MG PO ×2 (08:24→20:06)
[2022-12-28] MEDS: amLODIPine Besylate 5 MG TABLET PO (08:24)
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
[2022-12-28] MEDS: Acetaminophen 325 MG TABLET 650 MG PO (15:19)
[2022-12-28 20:00] VITALS: BP 139/81; PULSE 108; TEMP 36.6; O2SAT 96
[2022-12-28] MEDS: traZODone HCL 50 MG TABLET PO ×2 (20:05→22:46)
[2022-12-28] MEDS: Prazosin HCL 1 MG CAPSULE 2 MG PO (20:06)
[2022-12-29] MEDS: hydrOXYzine HCL 25 MG TABLET PO ×2 (01:06→17:41)
[2022-12-29] MEDS: Capsaicin 0.025% Cream 60 GM TUBE 1 APPL TOPICAL ×2 (04:58→18:26)
[2022-12-29] MEDS: Acetaminophen 325 MG TABLET 650 MG PO ×2 (04:59→11:12)
[2022-12-29] MEDS: Omeprazole 20 MG CAPSULE.DR PO (04:59)
[2022-12-29 07:00] VITALS: BMI 35.9
[2022-12-29 08:33] LABS: Glucose, Whole Blood 100 mg/dL (60-115)
[2022-12-29] MEDS: HaloperidoL 5 MG TABLET 10 MG PO ×2 (08:45→20:19)
[2022-12-29] MEDS: Folic Acid 1 MG TABLET PO (08:45)
[2022-12-29] MEDS: Benztropine Mesylate 1 MG TABLET PO (08:45)
[2022-12-29] MEDS: Gabapentin 100 MG CAPSULE 200 MG PO ×3 (08:45→20:20)
[2022-12-29] MEDS: amLODIPine Besylate 5 MG TABLET PO (08:45)
[2022-12-29] MEDS: Lithium Carbonate ER 300 MG TABLET.ER 600 MG PO ×2 (08:45→20:20)
[2022-12-29] MEDS: Multivitamin TABLET 1 TAB PO (08:45)
[2022-12-29] MEDS: Ferrous Sulfate 324 MG TABLET.DR PO (08:45)
[2022-12-29] MEDS: Docusate Sodium 100 MG CAPSULE PO (08:46)
[2022-12-29 09:30] VITALS: BP 125/76; PULSE 97; RESP 18; TEMP 36.5; O2SAT 97
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
[2022-12-29 20:05] VITALS: BP 160/94; PULSE 100; TEMP 36.5; O2SAT 99
[2022-12-29] MEDS: Benztropine Mesylate 0.5 MG TABLET PO (20:20)
[2022-12-29] MEDS: Prazosin HCL 1 MG CAPSULE 2 MG PO (20:21)
[2022-12-29] MEDS: traZODone HCL 50 MG TABLET PO (21:50)
[2022-12-30 06:00] VITALS: BP 135/79; PULSE 96; RESP 18; TEMP 36.2; O2SAT 96
[2022-12-30] MEDS: Omeprazole 20 MG CAPSULE.DR PO (06:38)
[2022-12-30 08:06] LABS: Glucose, Whole Blood 100 mg/dL (60-115)
[2022-12-30] MEDS: Lithium Carbonate ER 300 MG TABLET.ER 600 MG PO (08:10)
[2022-12-30] MEDS: Gabapentin 100 MG CAPSULE 200 MG PO (08:10)
[2022-12-30] MEDS: amLODIPine Besylate 5 MG TABLET PO (08:10)
[2022-12-30] MEDS: Docusate Sodium 100 MG CAPSULE PO (08:10)
[2022-12-30] MEDS: Benztropine Mesylate 0.5 MG TABLET PO (08:11)
[2022-12-30] MEDS: HaloperidoL 5 MG TABLET 10 MG PO (08:11)
[2022-12-30] MEDS: Folic Acid 1 MG TABLET PO (08:11)
[2022-12-30] MEDS: Multivitamin TABLET 1 TAB PO (08:11)
[2022-12-30 09:12] LABS: Lithium 0.37 mmol/L (0.60-1.20)
[2022-12-30 09:24] LABS: Anion Gap 10 (12-20); Blood Urea Nitrogen 19 mg/dL (9-16); Calcium 9.7 mg/dL (8.4-10.2); Carbon Dioxide 30 mmol/L (22-29); Chloride 103 mmol/L (96-108); Creatinine Clr Calc Pharmacy 166.1; Estimated Glomerular Filt Rate > 60; Glucose Random 92 mg/dL (60-115); Potassium 4.1 mmol/L (3.3-5.1); Sodium 139 mmol/L (135-145)
== END 2022-12-30 10:48 | disposition home or self-care (01) | DRG 885 ==
PROVIDERS: Admitting Provider Psychiatry & Neurology Psychiatry; Visit Provider Psychiatry & Neurology Psychiatry
DX: F25.9 Schizoaffective disorder, unspecified (principal); I10 Essential (primary) hypertension; E11.9 Type 2 diabetes mellitus without complications; K21.9 Gastro-esophageal reflux disease without esophagitis; Z78.1 Physical restraint status; Z79.899 Other long term (current) drug therapy
CPT/HCPCS: 36415; 73030; 73090; 73110; 73130; 80048; 80053; 80061; 80076; 80178; 82607; 82746; 82947; 83036; 84439; 84443; 85025; J1200; J2060

== ENCOUNTER → 2022-12-15 13:27 | Outpatient (BNV) | payer OTHER, SELFPAY | PROVIDERS: Admitting Provider Psychiatry & Neurology Psychiatry; Visit Provider Student in an Organized Health Care Education/Training Program | DX: E11.9 Type 2 diabetes mellitus without complications (principal); K21.9 Gastro-esophageal reflux disease without esophagitis; I10 Essential (primary) hypertension | CPT/HCPCS: 99221; 99499 ==

== ENCOUNTER → 2022-12-15 13:27 | Outpatient (BNV) | payer OTHER, SELFPAY | PROVIDERS: Admitting Provider Psychiatry & Neurology Psychiatry; Visit Provider Psychiatry & Neurology Psychiatry | DX: F25.1 Schizoaffective disorder, depressive type (principal) | CPT/HCPCS: 90792; 99231; 99232; 99239 ==

== ENCOUNTER 2023-02-03 19:38 | Inpatient (IN) | payer OTHER, SELFPAY ==
--- OUTSIDE RECORDS SUMMARY | 2023-02-03 19:42 | XMS_ITS | Continuity of Care Document ---
Author Name Unknown Address [address] [place] [address] Phone [facility] Address [address] [place] [address] Phone Care Team Providers Care Radiology Technician Name Role Phone PCP, UNKNOWN Primary Care Provider MD Vitaly Smith Emergency Provider Chief Complaint and Reason for Visit Chief Complaint HYPOTENSION, BODY AC HES, BLLEDING WITH BM, VOMITIN Allergies, Adverse Reactions, Alerts Allergen Type Severity Reaction Last Updated Verified Status acetaminophen Adverse Reaction Diarrhea June 202021 10:29pm Yes Active lisinopril Adverse Reaction Cough June 10:29pm Yes Active oxycodone Adverse Reaction Diarrhea June 10:29pm Yes Active Social History Smoking Status Status Start Date End Date Date of Observa tion Smokes tobacco daily (finding) July 03, 2021 10:29pm Additional Data Assigned Sex Male Problems Active Problems Medical Problem Onset Date Status Gastroenteritis Active Hyponatremia Active Dehydration Active Hypochloremia Active Medications Medication Status Dose Units Route Directions Qty Days St art Date End Date Instructions Ondansetron Active 4 MG PO EVERY 6 HOURS 12 July 04, 2021 12:06am Procedures Procedure Date Performed Status Coronavirus COVID-19 ([facility]) July 03, 2021 activ e Relevant Diagnostic Tests and/or Laboratory Data Laboratory Results Test Date/Time Result Interpretation Reference Range Result Comment Performing Site White Blood Count July 03, 2021 11:10pm 7.8 X10 3/uL 4.5-11.[address] [address] Red Blood Count July 03, 2021 11:10pm 5.42 X10 6/uL 4.00-5.50 [facility] [address] [facility] [address] Hemoglobin July 03, 2021 11:10pm 14.4 g/dl 13.0-17.0 [facility] [address] [place] [address] Hematocrit July 03, 2021 11:10pm 43.3 % 37.5-50.0 [facility] [address] [place] [address] Mean Corpuscular Volume July 03, 2021 11:10pm 79.9 fl 80.0-100.0 [facility] [address] [place] [address] Mean Corpuscular Hemoglobin July 03, 2021 11:10pm 26.6 pg 27.0-34.0 [facility] [address] [facility] [address] Mean Corpuscular Hemoglobin Concent July 03, 2021 11:10pm 33.3 g/dl 31.0-36.0 [facility] [address] [place] [address] Red Cell Distribution Width July 03, 2021 11:10pm 12.4 % 11.5-15.0 [facility] [address] [facility] [address] Platelet Count July 03, 2021 11:10pm 268 X10 3/uL 150-400 [facility] [address] [place] [address] Immature Granulocyte % (Auto) July 03, 2021 11:10pm 0.3 % [facility] [address] [place] [address] Neutrophils (%) (Auto) July 03, 2021 11:10pm 49.1 % [facility] [address] [place] [address] Lymphocytes (%) (Auto) July 03, 2021 11:10pm 39.8 % [facility] [address] [place] [address] Monocytes (%) (Auto) July 03, 2021 11:10pm 7.7 % [facility] [address] [place] [address] Eosinophils (%) (Auto) July 03, 2021 11:10pm 2.7 % [facility] [address] [place] [address] Basophils (%) (Auto) July 03, 2021 11:10pm 0.4 % [facility] [address] [facility] [address] Immature Granulocyte # (Auto) July 03, 2021 11:10pm 0.02 X10 3/uL 0.00-0.09 [facility] [address] [facility] [address] Neutrophils # (Auto) July 03, 2021 11:10pm 3.8 X10 3/uL 1.5-7.8 [facility] [address] [facility] [address] Lymphocytes # (Auto) July 03, 2021 11:10pm 3.1 X10 3/uL 1.0-4.8 [facility] [address] [facility] [address] Monocytes # (Auto) July 03, 2021 11:10pm 0.6 X10 3/uL 0.0-0.8 [facility] [address] [facility] [address] Eosinophils # (Auto) July 03, 2021 11:10pm 0.2 X10 3/uL 0.0-0.5 [facility] [address] [facility] [address] Basophils # (Auto) July 03, 2021 11:10pm 0.0 X10 3/uL 0.0-0.2 [facility] [address] [facility] [address] Nucleated Red Blood Cells % July 03, 2021 11:10pm 0.0 /100 WBC 0.0-0.0 [facility] [address] [facility] [address] Sodium Level July 03, 2021 11:10pm 135 mmol/L 137-146 [facility] [address] [facility] [address] Potassium Level July 03, 2021 11:10pm 3.6 mmol/L 3.5-5.3 Specimen hemolyzed, results affected [facility] [address] [facility] [address] Chloride Level July 03, 2021 11:10pm 95 mmol/L 98-107 [facility] [address] [facility] [address] Carbon Dioxide Level July 03, 2021 11:10pm 32 mmol/L 23-32 [facility] [address] [facility] [address] Anion Gap July 03, 2021 11:10pm 8 mmol/L 5-15 [facility] [address] [facility] [address] Blood Urea Nitrogen July 03, 2021 11:10pm 15 mg/dl 5-25 [facility] [address] [facility] [address] Creatinine July 03, 2021 11:10pm 0.9 mg/dL 0.6-1.[address] [address] Estimated Creatinine Clearance July 03, 2021 11:10pm 161.6 ml/min This value is calculated by Cockcroft Gault Equation using ideal body weight. This result is dependent on an accurate patient height and weight which is obtained from patients medical record. Victorinaofgrisel, D.W. and M.H. Gamima. Prediction of creatinine clearance from serum creatinine. Nephron. 1976. 16(1):31-41 . [facility] [address] [facility] [address] Estimated GFR () July 03, 2021 11:10pm 130 >[address] [address] Estimated GFR (Non- July 03, 2021 11:10pm 112 >[address] [address] BUN/Creatinine Ratio July 03, 2021 11:10pm 16.7 10.0-20.[address] [address] Glucose Level July 03, 2021 11:10pm 108 mg/dL 70-[address] [address] Calcium Level July 03, 2021 11:10pm 9.6 mg/dl 8.6-10.[address] [address] Total Bilirubin July 03, 2021 11:10pm 0.3 mg/dl <1.[address] [address] Aspartate Amino Transf (AST/SGOT) July 03, 2021 11:10pm 26 U/L 15-41 Specimen hemolyzed, results affected, evaluate with caution. [address] [address] Alanine Aminotransferase (ALT/SGPT) July 03, 2021 11:10pm 25 U/L 14-[address] [address] Total Protein July 03, 2021 11:10pm 7.6 g/dL 6.4-8.[address] [place] [address] Albumin July 03, 2021 11:10pm 4.7 g/dl 4.0-5.0 [facility] [address] [facility] [address] Albumin/Globulin Ratio July 03, 2021 11:10pm 1.6 1.0-2.6 [facility] [address] [facility] [address] Alkaline Phosphatase July 03, 2021 11:10pm 72 U/L 40-129 [facility] [address] [facility] [address] Lipase July 03, 2021 11:10pm 37 U/L 13-60 [facility] [address] [facility] [address] Vital Signs Vital Reading Result Reference Range Collection Date/Time Height 177.8 cm July 03, 2021 10:29pm Weight 135.17 kg July 03, 2021 10:29pm Body Temperature 98.7 [degF] 97.6-99.6 July 03, 2 022 10:29pm Heart Rate 80 /min 60-90 July 04, 2021 12:43am Respiratory rate 16 /min 12-24 July 04, 2 022 12:43am Oxygen saturation by Pulse oximetry 96 % 95-100 July 04, 2021 12:43 am BP Systolic 134 mm[Hg] 90-140 July 04, 2021 12:43am BP Diastolic 70 mm[Hg] 60-90 July 04, 2021 12:43am BMI (Body Mass Index) 42.8 kg/m2 July 032021 10:29pm Advance Directives Advance Directive Response Recorded Date/ Time Advance Directives No July 03 10:40pm Health Care Proxy No July 03, 2021 10:40pm Insurance Providers Guarantor HELLEN NAYAK Address [address] [address] Contact Info. Home Phone: Payer Policy Id Coverage Id Subscriber's Name Subscriber Id Effective Date Expiration Date [facility] [id number] HELLEN NAYAK [id number] Self Pay Self N/A Encounters Encounter Location(s) Arrival/Admit Date Discharge/Depart Date Provider(s) Departed Emergency [facility]-Emergency Department July 03, 2021 10:25pm July 04, 2021 12:46am null Plan of Treatment Future Tests Future scheduled test information is unavailable Pending Tests Test Name Date ordered Coronavirus COVID-19 [facility] ([facility]) July 03, 2021 11:10pm Future Visits Future appointment information is unavailable Referrals to Other Providers Reason for Referral Referral Start Date Provider Provider Contact Information Provider Address UNKNOWN PCP Future Procedures Future procedure information is unavailable Future Medications Future medication information is unavailable Patient Instructions ED Dehydration (Adult) ED Gastroenteritis, Viral (Adult) Goals Acute Goals Please give Zofran as needed if he has any nausea or vomiting.
--- OUTSIDE RECORDS SUMMARY | 2023-02-03 19:46 | XMS_ITS | Continuity of Care Document ---
Author Name Unknown Organization [facility] Address [address] [place] [address]- Care Team Providers Care Telecommunications Administrator Name Role Phone Delia ACOSTA, Lamine Covington Primary Care Physician Encounter [facility] Date(s): 11/17/22 - 12/17/22 [facility] [address] [place] [address]- Allergies, Adverse Reactions, Alerts No Known Medication Allergies Substance Reaction Severity Status lisinopril dry cough Active Dust Mild Active Milk Products Nausea and vomiting Persistent Moderate Active cloNIDine confusion Active Immunizations Given and Recorded Vaccine Date Status Refusal Reason [id number] 12y+ bivalent booster vax 02/07/22 Given influenza [...] each, 1 Refills, Maintenance, 06/06/22 16:49:00 EDT, [place], [place] - [id number], 178, cm, 06/06/22 16:31:00 EDT, Height, 101.4, [...] 06/06/22 16:49:00 EDT, Route to Pharmacy Electronically, [place], [place] - [id number], 178, cm, 06/06/22 16:31:00 EDT, Height, 101.4, [...] Replace Required Details, Route to Pharmacy Electronically, [place], [place] - [id number], 1... Start Date: 09/06/22 Status: Ordered MetFORMIN (Eqv-Glucophage XR) 500 mg oral tablet, extended release 1 tablet = 500 mg, By Mouth, Daily, LAST FILLED 10/11/22 FOR 14 TABS Start Date: 07/26/22 Status: Ordered multivitamin Multiple Vitamins oral tablet 1 tablet, By Mouth, Daily, # 90 tablet, 3 Refills, Maintenance, 06/06/22 16:40:00 EDT, [place], [place] - [phone], Partial fill upon patient request if the [...] sleep apnea, Complex sleep apnea Confirmed Active BHN/CCA/Dimmer Board Operator-Tia Jarrett [phone]/Health retirement, active care coordination Confirmed Active Treatment-emergent [...] Team Personnel Name: Ela Beltrán RN Position: [facility] AMB Nurse Member Role: Primary Care Nurse Name: Alaina Gillette RN Position: [facility] RN Member Role: Primary Care Nurse Name: Kristyn Tapia RN Position: [facility] SN RN Member Role: Primary Care Nurse Name: Lorna Gentile NP Position: [facility] Associate Professional Member Role: Primary Care Nurse Address: Address: [address] [place] [address]- [place] Name: Venus Jaramillo RN Position: [facility] RN Member Role: Primary Care Nurse Name: Flor Donnelly RN Position: [facility] RN Member Role: Primary Care Nurse Name: Ruiz Matson RN Position: [facility] RN Member Role: Primary Care Nurse Name: Belle Ames RN Position: [facility] RN Member Role: Primary Care Nurse Name: Alex Rios RN Position: [facility] RN Member Role: Primary Care Nurse Name: Daniel Hernandez III, RN Position: [facility] RN Member Role: Primary Care Nurse Name: Jordi Carter MD Position: [facility] Renal MD Member Role: Lifetime Consulting Physician Address: Address: [address] [facility] [address] [facility] [place] [address]- [place] Name: Loren Hamlin RN Position: [facility] RN Member Role: Primary Care Nurse Name: Malia Wise RN Position: [facility] RN Member Role: Primary Care Nurse Name: Lamine Lin MD Position: [facility] Physician - Primary Care Member Role: PCP Address: Address: [address] [facility] [place] [address]- [place] Name: Rose Abraham RN Position: [facility] Informatica Member Role: Primary Care Nurse Name: Vinod Botello MD Position: [facility] Physician - Behavioral Health Member Role: Lifetime Consulting Physician Address: Address: [address] [place] [address]- [place] Care Team Related Persons Name: MALIA HARRIS Name: KATHLEEN JACQUES Address: home [address] [place] [address] Name: VIRGIL PARKS Address: home [address] [place] [address] Name: MICHAELA MONTENEGRO Address: home UNKNOWN Name: MIGUEL PUENTES Address: home [address] [place] [address]
--- OUTSIDE RECORDS SUMMARY | 2023-02-03 19:47 | XMS_ITS | Continuity of Care Document ---
Author Name Unknown Organization [facility] ter Address [address] [place] [address]- Care Team Providers Care Jackhammer Splitter Operator Name Role Phone Lamine Lin MD Primary Care Physician [phone] Encounter [facility] Date(s): 01/05/23 - 01/05/[address] [address]- Discharge Disposition: A-D/C Walkout Attending Physician: Not on Staff, Attending MD Admitting Physician: Not on Staff, Admitting MD Referring Physician: Not on Staff, Referring MD Allergies, Adverse Reactions, Alerts Substance Reaction Severity Status lisinopril dry cough Active Dust Mild Active cloNIDine confusion Active Milk Products Nausea and vomiting Persistent Moderate Active Immunizations Given and Recorded Vaccine Date Status Refusal Reason [id number] 12y+ bivalent booster vax 02/07/22 Given influenza [...] each, 1 Refills, Maintenance, 06/06/22 16:49:00 EDT, [place], [place] - [id number], 178, cm, 06/06/22 16:31:00 EDT, Height, 101.4, [...] 06/06/22 16:49:00 EDT, Route to Pharmacy Electronically, [place], [place] - [id number], 178, cm, 06/06/22 16:31:00 EDT, Height, 101.4, [...] Replace Required Details, Route to Pharmacy Electronically, [place], [place] - [id number], 1... Start Date: 09/06/22 Status: Ordered MetFORMIN (Eqv-Glucophage XR) 500 mg oral tablet, extended release 1 tablet = 500 mg, By Mouth, Daily, LAST FILLED 10/11/22 FOR 14 TABS Start Date: 07/26/22 Status: Ordered multivitamin Multiple Vitamins oral tablet 1 tablet, By Mouth, Daily, # 90 tablet, 3 Refills, Maintenance, 06/06/22 16:40:00 EDT, [place], [place] - [id number], Partial fill upon patient request if the [...] sleep apnea, Complex sleep apnea Confirmed Active BHN/CCA/Urban Anthropologist-Tia Kolby [phone]/Health half-way, active care coordination Confirmed Active Treatment-emergent [...] 1 Oxygen Saturation [94-100 %] 98 % (01/05/23 7:07 PM) Pulse Rate [55-90 bpm] 95 bpm *H* (01/05/23 7:07 PM) Blood Pressure [90-138/55-84 mm Hg] 165/ 89mm Hg *H* (01/05/23 7:07 PM) Respiratory Rate [16-30 br/min] 20 br/mi n (01/05/23 7:07 PM) Temperature [96.8-100.4 DegF] 98.8 DegF (01/05/23 7:07 PM) Mode of Delivery (Oxygen) Room air (01/05/23 7:07 PM) Blood pressure sites Arm, right (01/05/23 7:07 PM) Temperature Route Oral (01/05/23 7:07 PM) Social History Social History Type Response Smoking Status Never smoker entered on: 10/02/13 Sex Male Patient Care team information Care Team Personnel Name: Ela Beltrán RN Position: [facility] AMB Nurse Member Role: Primary Care Nurse Name: Alaina Gillette RN Position: [facility] RN Member Role: Primary Care Nurse Name: Kristyn Tapia RN Position: [facility] SN RN Member Role: Primary Care Nurse Name: Lorna Gentile NP Position: [facility] Associate Professional Member Role: Primary Care Nurse Address: Address: [address] [place] [address]- Name: Venus Jaramillo RN Position: [facility] RN Member Role: Primary Care Nurse Name: Flor Donnelly RN Position: [facility] RN Member Role: Primary Care Nurse Name: Ruiz Matson RN Position: [facility] RN Member Role: Primary Care Nurse Name: Belle Ames RN Position: [facility] RN Member Role: Primary Care Nurse Name: Alex Rios RN Position: [facility] RN Member Role: Primary Care Nurse Name: Daniel Hernandez III, RN Position: [facility] RN Member Role: Primary Care Nurse Name: Jordi Carter MD Position: [facility] Renal MD Member Role: Lifetime Consulting Physician Address: Address: [address] [place] [address] [address] [facility] [place] [address]- [place] Name: Loren Hamlin RN Position: [facility] RN Member Role: Primary Care Nurse Name: Malia Wise RN Position: [facility] RN Member Role: Primary Care Nurse Name: Lamine Lin MD Position: [facility] Physician - Primary Care Member Role: PCP Address: Address: [address] [place] [address]- Name: Rose Abraham RN Position: [facility] Drawer In Stitch Bonding Machine Member Role: Primary Care Nurse Name: Vinod Botello MD Position: [facility] Physician - Behavioral Health Member Role: Lifetime Consulting Physician Address: Address: [address] [place] [address]- Care Team Related Persons Name: MALIA HARRIS Name: KATHLEEN JACQUES Address: home [address] [place] [address] Name: VIRGIL PARKS Address: home [address] [place] [address] Name: MICHAELA MONTENEGRO Address: home UNKNOWN Name: MIGUEL PUENTES Address: home [address] [place] [address]
--- OUTSIDE RECORDS SUMMARY | 2023-02-03 19:47 | XMS_ITS | Continuity of Care Document ---
Author Name Unknown Organization [facility] ter Address [address] [place] [id number]- Care Team Providers Care Housekeeping Aid Name Role Phone Delia ACOSTA, Lamine Covington Primary Care Physician [phone] Encounter [facility] Date(s): 01/08/23 - 01/09/[address] [address]- Encounter Diagnosis Suicidal ideation(Final) - 01/08/23 GERD (gastroesophageal reflux disease)(Final) - 01/08/23 Discharge Disposition: Transfer to [facility] Facility Attending Physician: Leonel Flowers MD Admitting Physician: Leonel Flowers MD Referring Physician: Not on Staff, Referring MD Allergies, Adverse Reactions, Alerts Substance Reaction Severity Status lisinopril dry cough Active Dust Mild Active Milk Products Nausea and vomiting Persistent Moderate Active cloNIDine confusion Active Immunizations Given and Recorded Vaccine Date Status Refusal Reason [id number] 12y+ bivalent booster vax 02/07/22 Given influenza [...] oral tablet 5 mg, Tablet, By Mouth, 01/09/23 9:00:00 EST Start Date: 01/09/23 Stop Date: 01/09/23 Status: Completed benztropine 1 mg oral tablet 0.5 mg, 0.5, tablet, By Mouth, 2 times a day Start Date: 07/26/22 Status: Ordered docusate sodium 100 mg oral capsule 1 capsule, By Mouth, Daily, # 30 each, 1 Refills, Maintenance, 06/06/22 16:49:00 EDT, [place], [place] - [phone], 178, cm, 06/06/22 16:31:00 EDT, Height, 101.4, [...] 06/06/22 16:49:00 EDT, Route to Pharmacy Electronically, [place], [place] - [id number], 178, cm, 06/06/22 16:31:00 EDT, Height, 101.4, [...] MG Start Date: 07/26/22 Status: Ordered gabapentin 100 mg oral capsule 100 mg, Capsule, By Mouth, 01/09/23 9:00:00 EST Start Date: 01/09/23 Stop Date: 01/09/23 Status: Completed gabapentin 300 mg oral capsule 600 mg, Capsule, By Mouth, 01/09/23 9:00:00 EST Start Date: 01/09/23 Stop Date: 01/09/23 Status: Completed gabapentin 600 mg oral tablet [...] Replace Required Details, Route to Pharmacy Electronically, [place], [place] - [id number], 1... Start Date: 09/06/22 Status: Ordered MetFORMIN (Eqv-Glucophage XR) 500 mg oral tablet, extended release 1 tablet = 500 mg, By Mouth, Daily, LAST FILLED 10/11/22 FOR 14 TABS Start Date: 07/26/22 Status: Ordered multivitamin Multiple Vitamins oral tablet 1 tablet, By Mouth, Daily, # 90 tablet, 3 Refills, Maintenance, 06/06/22 16:40:00 EDT, [place], [place] - [id number], Partial fill upon patient request if the [...] (nonalcoholic fatty liver disease) 2 Confirmed Active Obstructive sleep apnea, Complex sleep apnea Confirmed Active BHN/CCA/Medical Records Receptionist-Tia Jarrett [phone]/[facility], active care coordination Confirmed Active Severe obesity (BMI 35.0-39.9) with comorbidity Confirmed Active Treatment-emergent central sleep apnea Confirmed [...] Range]: 1 2 3 Height 178 cm (01/08/23 11:07 PM) 178 cm (01/08/23 8:16 PM) Weight 114 kg (01/08/23 11:07 PM) 114 kg (01/08/23 8:16 PM) Oxygen Saturation [94-100 %] 98 % (01/09/23 10:38 AM) 100 % (01/09/23 8:36 AM) 100 % (01/09/23 5:05 AM) Pulse Rate [55-90 bpm] 75 bpm (01/09/23 10:38 AM) 69 bpm (01/09/23 8:36 AM) 77 bpm (01/09/23 5:05 AM) Body Mass Index [18.5-24.99 kg/m2] 35.98 kg/m2 *>HHI* (01/08/23 11:07 PM) Blood Pressure [90-138/55-84 mm Hg] 139/72mm Hg *H* (01/09/23 10:38 AM) 136/76mm Hg (01/09/23 8:36 AM) 133/79mm Hg (01/09/23 5:05 AM) Respiratory Rate [16-30 br/min] 18 br/min (01/09/23 10:38 AM) 18 br/min (01/09/23 10:37 AM) 18 br/min (01/09/23 10:37 AM) Temperature [96.8-100.4 DegF] 97.5 DegF (01/09/23 8:36 AM) 97.5 DegF (01/08/23 11:07 PM) 98.2 DegF (01/08/23 8:16 PM) Mode of Delivery (Oxygen) Room air (01/09/23 10:38 AM) Room air (01/09/23 8:36 AM) Room air (01/09/23 5:05 AM) Blood pressure sites Arm, right (01/09/23 8:36 AM) Arm, left (01/09/23 5:05 AM) Arm, left (01/08/23 11:07 PM) Temperature Route Oral (01/08/23 11:07 PM) Oral (01/08/23 8:16 PM) Dry Weight 114 kg (01/08/23 11:07 PM) 114 kg (01/08/23 8:16 PM) Weight Obtained Via Patient/family state d (01/08/23 8:16 PM) Dry Weight Obtained Via Patient/family s tated (01/08/23 8:16 PM) Social History Social History Type Response Smoking Status Never smoker entered on: 10/02/13 Sex Male EKG study * Event Display: EKG Authored Date: [id number] Patient Care team information Care Team Personnel Name: Ela Beltrán RN Position: [facility] AMB Nurse Member Role: Primary Care Nurse Name: Alaina Gillette RN Position: [facility] RN Member Role: Primary Care Nurse Name: Kristyn Tapia RN Position: [facility] RN Member Role: Primary Care Nurse Name: Lorna Gentile NP Position: [facility] Associate Professional Member Role: Primary Care Nurse Address: Address: [address] [place] [id number] Name: Venus Jaramillo RN Position: [facility] RN Member Role: Primary Care Nurse Name: Flor Donnelly RN Position: [facility] RN Member Role: Primary Care Nurse Name: Ruiz Matson RN Position: [facility] RN Member Role: Primary Care Nurse Name: Belle Ames RN Position: [facility] RN Member Role: Primary Care Nurse Name: Alex Rios RN Position: [facility] RN Member Role: Primary Care Nurse Name: Daniel Hernandez III, RN Position: [facility] RN Member Role: Primary Care Nurse Name: Jordi Carter MD Position: [facility] Renal MD Member Role: Lifetime Consulting Physician Address: Address: [address] [facility] [place] [address]- [place] Name: Loren Hamlin RN Position: [facility] RN Member Role: Primary Care Nurse Name: Malia Wise RN Position: [facility] RN Member Role: Primary Care Nurse Name: Lamine Lin MD Position: [facility] Physician - Primary Care Member Role: PCP Address: Address: [address] [facility] [place] [address]- [place] Name: Rose Abraham RN Position: [facility] Hospital Job Recruiter Member Role: Primary Care Nurse Name: Vinod Botello MD Position: [facility] Physician - Behavioral Health Member Role: Lifetime Consulting Physician Address: Address: [address] [place] [address]- Name: *[facility], ED Attending Position: [facility] ED Attendings Patient Name: Brooklyn Beatty RN Position: [facility] ED RN W/OE and Tasks Member Role: Patient Care Provider Name: Corrine Feldman Position: [facility] ED TA [facility] Member Role: Staff Development Coordinator Name: Leonel Flowers MD Position: [facility] ED Medicine MD Member Role: Admitting Physician Address: Address: [address] [place] [address]- [place] Care Team Related Persons Name: MALIA HARRIS Name: KATHLEEN JACQUES Address: home [address] [place] [address] Name: VIRGIL PARKS Address: home [address] [place] [address] Name: MICHAELA MONTENEGRO Address: home UNKNOWN Name: MIGUEL PUENTES Address: home [address] [place] [address]
[2023-02-03 20:15] VITALS: BP 160/88; PULSE 71; RESP 18; TEMP 36.8; O2SAT 97
[2023-02-03] MEDS: traZODone HCL 50 MG TABLET PO ×2 (22:04→23:29)
[2023-02-03] MEDS: OLANZapine 5 MG TABLET PO (22:04)
[2023-02-03] MEDS: hydrOXYzine HCL 25 MG TABLET PO (22:05)
--- NOTE | 2023-02-04 03:50 | PC.ADMIT ---
Stef is a 32yo Wallisian speaking male, admitted to the unit from [facility] on [facility] for treatment of Unspecified Schizophrenia and SI. Pt reports that recent changes in his meds cause his suicidal thoughts and sadness to increase. He does not feel safe going back home due to his increase SI and history of cutting himself. Pt was calm and pleasant, Mood is flat and affect is depressed, needed the services of an circuit breaker assembler during the admission process. He endorses AH/VH, states I have been hearing voices and seeing images since I was a child and it is a positive thing to me . He denies HI and reported that he has no SI thought presently. He have medical conditions of HTN, Asthma and DM-2, presently taking Medication. Hospitalist contacted, promised to come and see Pt tomorrow. Skin assessment done, treatment plans and safety tools initiated but yet to be signed. Meds compliant and reports being safe on the unit.
[2023-02-04] MEDS: hydrOXYzine HCL 25 MG TABLET PO (05:29)
[2023-02-04] MEDS: OLANZapine 5 MG TABLET PO (05:29)
[2023-02-04] MEDS: Acetaminophen 325 MG TABLET 650 MG PO (06:12)
[2023-02-04 06:45] VITALS: BMI 39.2
[2023-02-04 09:12] VITALS: BP 160/88; PULSE 77; RESP 20; TEMP 36.7; O2SAT 97
[2023-02-04 10:11] LABS: Glucose, Whole Blood 176 mg/dL (60-115)
[2023-02-04 11:00] LABS: Estimated Average Glucose 94 mg/dL; Hemoglobin A1c % 4.9 % (<6.0)
[2023-02-04 11:08] LABS: Cholesterol 173 mg/dL (<200); HDL Cholesterol 60 mg/dL (>40); LDL Cholesterol Calculated 94 mg/dL (<100); Triglycerides 96 mg/dL (<150)
[2023-02-04] MEDS: Benztropine Mesylate 0.5 MG TABLET PO ×2 (11:27→22:22)
[2023-02-04] MEDS: Gabapentin 400 MG CAPSULE PO ×3 (11:27→22:23)
[2023-02-04] MEDS: HaloperidoL 5 MG TABLET 10 MG PO ×2 (11:27→22:22)
[2023-02-04] MEDS: Lithium Carbonate ER 300 MG TABLET.ER 600 MG PO (11:27)
[2023-02-04] MEDS: amLODIPine Besylate 2.5 MG TABLET 7.5 MG PO (11:32)
[2023-02-04] MEDS: Venlafaxine HCl ER 150 MG CAP.ER.24H PO (11:33)
[2023-02-04] MEDS: metFORMIN HCl ER 500 MG TAB.ER.24H PO (12:06)
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
[2023-02-04 19:55] VITALS: BP 168/90; PULSE 90; RESP 20; TEMP 36.4; O2SAT 97
[2023-02-04 22:10] LABS: Glucose, Whole Blood 94 mg/dL (60-115)
[2023-02-04] MEDS: Loratadine 10 MG TABLET PO (22:21)
[2023-02-04] MEDS: traZODone HCL 50 MG TABLET 150 MG PO (22:21)
[2023-02-04 22:22] VITALS: BP 151/87; PULSE 78; RESP 18; TEMP 36.3; O2SAT 97
[2023-02-04] MEDS: Prazosin HCL 1 MG CAPSULE 2 MG PO (22:22)
[2023-02-04] MEDS: Docusate Sodium 100 MG CAPSULE PO (22:23)
[2023-02-05 07:40] VITALS: BP 155/87; PULSE 71; RESP 16; TEMP 36.2; O2SAT 99
[2023-02-05 07:59] LABS: Glucose, Whole Blood 83 mg/dL (60-115)
[2023-02-05] MEDS: Benztropine Mesylate 0.5 MG TABLET PO ×2 (08:25→21:06)
[2023-02-05] MEDS: Gabapentin 400 MG CAPSULE PO ×3 (08:25→21:06)
[2023-02-05] MEDS: HaloperidoL 5 MG TABLET 10 MG PO ×2 (08:25→21:06)
[2023-02-05] MEDS: Venlafaxine HCl ER 150 MG CAP.ER.24H PO (08:25)
[2023-02-05] MEDS: Ferrous Sulfate 324 MG TABLET.DR PO (08:25)
[2023-02-05] MEDS: metFORMIN HCl ER 500 MG TAB.ER.24H PO (08:26)
[2023-02-05] MEDS: amLODIPine Besylate 2.5 MG TABLET 7.5 MG PO (08:26)
[2023-02-05] MEDS: Lithium Carbonate ER 300 MG TABLET.ER 600 MG PO (08:26)
[2023-02-05 08:56] LABS: Creatinine Clr Calc Pharmacy 171.8; Estimated Glomerular Filt Rate > 60
[2023-02-05] MEDS: Acetaminophen 325 MG TABLET 650 MG PO (10:29)
[2023-02-05] MEDS: Multivitamin TABLET 1 TAB PO (13:38)
--- NOTE | 2023-02-05 19:33 | P.PNPSI_ITS ---
Subjective Subjective Date of Service: 02/05/23 Reason For Visit: depressed/ si Interim History: Patient seen. Reports he is feeling better since coming in. He denies any tremors. Says his hallucinations have subsided and he has no SI. He says he just feels tired. Wants vitamins. Review of Systems Review of Systems Foul-smelling feet Vague, nonspecific complaints of mouth and voice Mental Status Exam Mental Status Exam Narrative: General appearance: hospital gown. Fair hygiene.? Eye contact: WNL. Musculoskeletal: Normal muscle strength/tone, Normal gait and station, No abnormal involuntary movements like tremors, EPS or dyskinesia. No psychomotor agitation or retardation. Normal posture.??? Manner/behavior: cooperative and guarded, irritable and dysphoric Speech:? Fluent, with normal rate, tone and volume. Language: No receptive or expressive language impairment? Mood: deoressed. Affect: Dysphoric and irritable ? Thought process/associations: Linear with no flight of ideas or loose associations.?? Thought content:?Paranoia Hallucinations: AH? Suicidality/self-destructive behavior: none today. Yes on admission Homicidally/violence: none.? Reliability: fair.? ? Judgment: fair.? ? Insight: partial Cognition: Alert and oriented to time, place and person. Attention, concentration and fund of knowledge are normal. Diagnostics Vital Signs (24Hr): Vital Signs - 24 hr 02/04/23 19:55 02/04/23 22:22 02/05/23 07:40 Temperature 97.6 F 97.4 F 97.2 F Pulse Rate 90 78 71 Respiratory Rate 20 18 16 Blood Pressure 168/90 H 151/87 H 155/87 H Pulse Oximetry 97 97 99 Oxygen Delivery Method Room Air Room Air Room Air BMI result Body Mass Index 39.2 Labs 02/05/23 08:05 Labs: Laboratory Results - last 48 hr 02/04/23 02/04/23 02/04/23 10:05 10:40 22:05 Creatinine Estim Creat Clear Calc Estimated GFR POC Glucose 176 H 94 Estimat Average Glucose 94 Hemoglobin A1c % 4.9 Triglycerides 96 Cholesterol 173 LDL Cholesterol, Calc 94 HDL Cholesterol 60 02/05/23 02/05/23 07:37 08:05 Creatinine 0.80 Estim Creat Clear Calc 171.8 Estimated GFR > 60 POC Glucose 83 Estimat Average Glucose Hemoglobin A1c % Triglycerides Cholesterol LDL Cholesterol, Calc HDL Cholesterol Medications Medications Current Medications Acetaminophen (Acetaminophen 325 Mg Tablet) 650 mg PO Q6H PRN PRN Reason: Headache/Pain Mild Scale (1-3) Last Admin: 02/05/23 10:29 Dose: 650 mg Al Hydroxide/Mg Hydroxide (Magnesium Hydrox/Alum Hydrox 30 Ml Oral.Susp) 30 ml PO Q6H PRN PRN Reason: Heartburn/Nausea Amlodipine Besylate (Amlodipine Besylate 2.5 Mg Tablet) 7.5 mg PO DAILY [facility]; Protocol Last Admin: 02/05/23 08:26 Dose: 7.5 mg Benztropine Mesylate (Benztropine Mesylate 0.5 Mg Tablet) 0.5 mg PO BID [facility] Last Admin: 02/05/23 08:25 Dose: 0.5 mg Docusate Sodium (Docusate Sodium 100 Mg Capsule) 100 mg PO BEDTIME [facility] Last Admin: 02/04/23 22:23 Dose: 100 mg Ferrous Sulfate (Ferrous Sulfate 324 Mg Tablet.Dr) 324 mg PO Q48H [facility] Last Admin: 02/05/23 08:25 Dose: 324 mg Gabapentin (Gabapentin 400 Mg Capsule) 400 mg PO TID [facility] Last Admin: 02/05/23 14:10 Dose: 400 mg Haloperidol (Haloperidol 5 Mg Tablet) 10 mg PO BID [facility] Last Admin: 02/05/23 08:25 Dose: 10 mg Hydroxyzine HCl (Hydroxyzine Hcl 25 Mg Tablet) 25 mg PO Q6H PRN PRN Reason: Anxiety Last Admin: 02/04/23 05:29 Dose: 25 mg [place] Carbonate ([place] Carbonate Er 300 Mg Tablet.Er) 600 mg PO DAILY [facility] Last Admin: 02/05/23 08:26 Dose: 600 mg Loratadine (Loratadine 10 Mg Tablet) 10 mg PO BEDTIME [facility] Last Admin: 02/04/23 22:21 Dose: 10 mg Magnesium Hydroxide (Milk Of Magnesia 30 Ml Oral.Susp) 30 ml PO DAILY PRN PRN Reason: Constipation Metformin HCl (Metformin Hcl Er 500 Mg Tab.Er.24h) 500 mg PO DAILY [facility] Last Admin: 02/05/23 08:26 Dose: 500 mg Multivitamins/Vitamin C (Multivitamin Tablet) 1 tab PO DAILY [facility] Last Admin: 02/05/23 13:38 Dose: 1 tab Nicotine (Nicotine 21 Mg Patch.Td24) 21 mg TRANSDERMA DAILY PRN PRN Reason: smoking cessation Nicotine Polacrilex (Nicotine Polacrilex 2 Mg Gum) 4 mg BUCCAL Q2H PRN PRN Reason: Nicotine Cravings Olanzapine (Olanzapine 5 Mg Tablet) 5 mg PO TID PRN PRN Reason: agitation Last Admin: 02/04/23 05:29 Dose: 5 mg Prazosin HCl (Prazosin Hcl 1 Mg Capsule) 2 mg PO BEDTIME [facility]; Protocol Last Admin: 02/04/23 22:22 Dose: 2 mg Trazodone HCl (Trazodone Hcl 50 Mg Tablet) 50 mg PO BEDTIME MRX1 PRN PRN Reason: Insomnia Last Admin: 02/03/23 23:29 Dose: 50 mg Trazodone HCl (Trazodone Hcl 50 Mg Tablet) 150 mg PO BEDTIME [facility] Last Admin: 02/04/23 22:21 Dose: 150 mg Venlafaxine HCl (Venlafaxine Hcl Er 150 Mg Cap.Er.24h) 150 mg PO DAILY [facility] Last Admin: 02/05/23 08:25 Dose: 150 mg Allergies Allergies Allergy/AdvReac Type Severity Reaction Status Date / Time lisinopril Allergy Unknown Cough Verified 12/15/22 18:44 clonidine AdvReac Unknown Unknown Verified 11/19/22 16:28 Assessment & Plan Assessment & Plan (1) Schizophrenia, chronic condition: Status: Acute Code(s): F20.9 - Schizophrenia, unspecified Plan 32 yo male with history of schizophrenia. He was transferred from [facility]. Patient presented to the hospital due to having tremors and having SI. He reported he had a change in his medications at [facility] where he gets treatment. He had thoughts of cutting himself. He reported he has been having increase AH. Plan: Admit to M3 Restart medications Collateral information Group and milieu therapy Disposition planning. 02/05: Continue current management and treatment plan. Reason for continued inpatient stay Substantial Risk for: inability to function and rapid decompensation Time Spent With Patient Time: Total time managing care of this patient today ____ minutes.
[2023-02-05 19:45] VITALS: BP 146/76; PULSE 100; RESP 18; TEMP 36.3; O2SAT 97
[2023-02-05] MEDS: Prazosin HCL 1 MG CAPSULE 2 MG PO (21:05)
[2023-02-05] MEDS: traZODone HCL 50 MG TABLET 150 MG PO (21:06)
[2023-02-05] MEDS: Docusate Sodium 100 MG CAPSULE PO (21:06)
[2023-02-05] MEDS: Loratadine 10 MG TABLET PO (21:06)
[2023-02-05 21:17] LABS: Glucose, Whole Blood 113 mg/dL (60-115)
[2023-02-05] MEDS: OLANZapine 5 MG TABLET PO (23:34)
[2023-02-05] MEDS: traZODone HCL 50 MG TABLET PO (23:34)
[2023-02-05] MEDS: hydrOXYzine HCL 25 MG TABLET PO (23:34)
[2023-02-06] MEDS: Acetaminophen 325 MG TABLET 650 MG PO ×2 (06:29→12:24)
[2023-02-06 08:09] LABS: Glucose, Whole Blood 95 mg/dL (60-115)
[2023-02-06] MEDS: Lithium Carbonate ER 300 MG TABLET.ER 600 MG PO (08:28)
[2023-02-06] MEDS: amLODIPine Besylate 2.5 MG TABLET 7.5 MG PO (08:28)
[2023-02-06] MEDS: Gabapentin 400 MG CAPSULE PO ×3 (08:28→22:16)
[2023-02-06] MEDS: Multivitamin TABLET 1 TAB PO (08:29)
[2023-02-06] MEDS: Venlafaxine HCl ER 150 MG CAP.ER.24H PO (08:29)
[2023-02-06] MEDS: metFORMIN HCl ER 500 MG TAB.ER.24H PO (08:29)
[2023-02-06] MEDS: Benztropine Mesylate 0.5 MG TABLET PO ×2 (08:29→22:17)
[2023-02-06] MEDS: HaloperidoL 5 MG TABLET 10 MG PO ×2 (08:29→22:17)
[2023-02-06 08:49] VITALS: BP 128/67; PULSE 86; RESP 18; TEMP 36.2; O2SAT 96
[2023-02-06] MEDS: hydrOXYzine HCL 25 MG TABLET PO (11:17)
[2023-02-06 11:19] LABS: Glucose, Whole Blood 116 mg/dL (60-115)
--- NOTE | 2023-02-06 15:04 | HO.PSYCHPN ---
Subjective Subjective Date of Service: 02/06/23 Reason For Visit: depressed/ si Interim History: calm, cooperative. concerned about ESHA, B/L knee pain, glucose and BP. interested in sleep study, PT sanaz, medical historian consult for DM diet food choices. c/o fatigue, informed this may be related to DM, although sugars appear to be in good control recently. slept about 7 hours overnight. concerned about a recent medication change that exacerbated SI? Mental Status Exam Mental Status Exam Narrative: Appearance: wearing casual clothing, fair hygiene, in NAD Psychomotor: no PMA/PMR Speech: clear, nml rate. nml loudness, amount. TP: linear, logical TC: no paranoid delusions expressed Mood: not assessed Affect: flexible, normo-intense, non-labile SI: none expressed HI: none expressed VH/AH: none expressed Insight/judgment: impaired x 2 Diagnostics Vital Signs (24Hr): Vital Signs - 24 hr 02/05/23 19:45 02/06/23 08:49 Temperature 97.3 F 97.1 F Pulse Rate 100 86 Respiratory Rate 18 18 Blood Pressure 146/76 H 128/67 Pulse Oximetry 97 96 Oxygen Delivery Method Room Air Room Air BMI result Body Mass Index 39.2 Labs 02/05/23 08:05 Labs: Laboratory Results - last 48 hr 02/04/23 02/05/23 02/05/23 22:05 07:37 08:05 Creatinine 0.80 Estim Creat Clear Calc 171.8 Estimated GFR > 60 POC Glucose 94 83 02/05/23 02/06/23 02/06/23 21:10 08:04 11:15 Creatinine Estim Creat Clear Calc Estimated GFR POC Glucose 113 95 116 H Medications Medications Current Medications Acetaminophen (Acetaminophen 325 Mg Tablet) 650 mg PO Q6H PRN PRN Reason: Headache/Pain Mild Scale (1-3) Last Admin: 02/06/23 12:24 Dose: 650 mg Al Hydroxide/Mg Hydroxide (Magnesium Hydrox/Alum Hydrox 30 Ml Oral.Susp) 30 ml PO Q6H PRN PRN Reason: Heartburn/Nausea Amlodipine Besylate (Amlodipine Besylate 2.5 Mg Tablet) 7.5 mg PO DAILY [facility]; Protocol Last Admin: 02/06/23 08:28 Dose: 7.5 mg Benztropine Mesylate (Benztropine Mesylate 0.5 Mg Tablet) 0.5 mg PO BID [facility] Last Admin: 02/06/23 08:29 Dose: 0.5 mg Docusate Sodium (Docusate Sodium 100 Mg Capsule) 100 mg PO BEDTIME [facility] Last Admin: 02/05/23 21:06 Dose: 100 mg Ferrous Sulfate (Ferrous Sulfate 324 Mg Tablet.Dr) 324 mg PO Q48H [facility] Last Admin: 02/05/23 08:25 Dose: 324 mg Gabapentin (Gabapentin 400 Mg Capsule) 400 mg PO TID [facility] Last Admin: 02/06/23 14:22 Dose: 400 mg Haloperidol (Haloperidol 5 Mg Tablet) 10 mg PO BID [facility] Last Admin: 02/06/23 08:29 Dose: 10 mg Hydroxyzine HCl (Hydroxyzine Hcl 25 Mg Tablet) 25 mg PO Q6H PRN PRN Reason: Anxiety Last Admin: 02/06/23 11:17 Dose: 25 mg [place] Carbonate ([place] Carbonate Er 300 Mg Tablet.Er) 600 mg PO DAILY [facility] Last Admin: 02/06/23 08:28 Dose: 600 mg Loratadine (Loratadine 10 Mg Tablet) 10 mg PO BEDTIME [facility] Last Admin: 02/05/23 21:06 Dose: 10 mg Magnesium Hydroxide (Milk Of Magnesia 30 Ml Oral.Susp) 30 ml PO DAILY PRN PRN Reason: Constipation Metformin HCl (Metformin Hcl Er 500 Mg Tab.Er.24h) 500 mg PO DAILY [facility] Last Admin: 02/06/23 08:29 Dose: 500 mg Multivitamins/Vitamin C (Multivitamin Tablet) 1 tab PO DAILY [facility] Last Admin: 02/06/23 08:29 Dose: 1 tab Nicotine (Nicotine 21 Mg Patch.Td24) 21 mg TRANSDERMA DAILY PRN PRN Reason: smoking cessation Nicotine Polacrilex (Nicotine Polacrilex 2 Mg Gum) 4 mg BUCCAL Q2H PRN PRN Reason: Nicotine Cravings Olanzapine (Olanzapine 5 Mg Tablet) 5 mg PO TID PRN PRN Reason: agitation Last Admin: 02/05/23 23:34 Dose: 5 mg Prazosin HCl (Prazosin Hcl 1 Mg Capsule) 2 mg PO BEDTIME [facility]; Protocol Last Admin: 02/05/23 21:05 Dose: 2 mg Trazodone HCl (Trazodone Hcl 50 Mg Tablet) 50 mg PO BEDTIME MRX1 PRN PRN Reason: Insomnia Last Admin: 12/17/23 23:34 Dose: 50 mg Trazodone HCl (Trazodone Hcl 50 Mg Tablet) 150 mg PO BEDTIME [facility] Last Admin: 02/05/23 21:06 Dose: 150 mg Venlafaxine HCl (Venlafaxine Hcl Er 150 Mg Cap.Er.24h) 150 mg PO DAILY [facility] Last Admin: 02/06/23 08:29 Dose: 150 mg Allergies Allergies Allergy/AdvReac Type Severity Reaction Status Date / Time lisinopril Allergy Unknown Cough Verified 12/15/22 18:44 clonidine AdvReac Unknown Unknown Verified 11/19/22 16:28 Assessment & Plan Assessment & Plan (1) Schizophrenia, chronic condition: Status: Acute Code(s): F20.9 - Schizophrenia, unspecified Plan 32 yo male with history of schizophrenia. He was transferred from [facility]. Patient presented to the hospital due to having tremors and having SI. He reported he had a change in his medications at [facility] where he gets treatment. He had thoughts of cutting himself. He reported he has been having increase AH. Plan: Admit to M3 Restart medications Collateral information Group and milieu therapy Disposition planning. 02/05: Continue current management and treatment plan. 02/06: order sleep study (morbid obesity, daytime tiredness, morning METCALF), PT for B/L knee pain, dietary consult for food choice education for DM. Reason for continued inpatient stay Substantial Risk for: harm to self, inability to function and rapid decompensation Time Spent With Patient Time: Total time managing care of this patient today __35__ minutes.
--- NOTE | 2023-02-06 15:14 | MHC.CLN ---
RE: CONSULT FOR DIABETIC EDUCATION HT 70 WT 273# IBW 166#+/-10% BMI 39.2 OBESE PT IS 164% IBW INDICATES OBESE FOR HT LABS 02/04/23 A1C 4.9% INDICATES EXCELLENT BLOOD SUGAR CONTROL DIET RX: REGULAR-APPROPRIATE PT ADMITTED FOR SI AND DX SCHIZOPHRENIA THOUGHT CONTENT PER MD:PARANOID PA NOTED BLOOD SUGARS IN THE PAST HAVE BEEN WELL CONTROLLED WITH DIET DM DIET EDUCATION NOT APPROPRIATE AT THIS TIME CAN GIVE REFERRAL TO OUT PATIENT RD UPON DISCHARGE CONTINUE CURRENT CARE PLAN
[2023-02-06 20:15] VITALS: BP 154/84; PULSE 96; RESP 18; TEMP 36.1; O2SAT 97
[2023-02-06 20:19] LABS: Glucose, Whole Blood 121 mg/dL (60-115)
[2023-02-06] MEDS: Prazosin HCL 1 MG CAPSULE 2 MG PO (22:16)
[2023-02-06] MEDS: Docusate Sodium 100 MG CAPSULE PO (22:16)
[2023-02-06] MEDS: traZODone HCL 50 MG TABLET 150 MG PO (22:16)
[2023-02-06] MEDS: Loratadine 10 MG TABLET PO (22:17)
--- NOTE | 2023-02-06 23:23 | PC.RT ---
Pt started on Overnight sleep study on RA with sitter at bedside
--- NOTE | 2023-02-07 05:17 | PC.RT ---
RN called RT to remove overnight sleep study from pt. upon arrival pt still asleep, pt woken and overnight removed from pt.
[2023-02-07] MEDS: Magnesium Hydrox/Alum Hydrox 30 ML ORAL.SUSP PO (05:41)
[2023-02-07 07:25] VITALS: BP 148/66; PULSE 97; RESP 16; TEMP 36.3; O2SAT 96
[2023-02-07 08:34] LABS: Glucose, Whole Blood 94 mg/dL (60-115)
[2023-02-07] MEDS: metFORMIN HCl ER 500 MG TAB.ER.24H PO (08:56)
[2023-02-07] MEDS: Gabapentin 400 MG CAPSULE PO ×3 (08:56→20:16)
[2023-02-07] MEDS: Multivitamin TABLET 1 TAB PO (08:56)
[2023-02-07] MEDS: HaloperidoL 5 MG TABLET 10 MG PO ×2 (08:56→20:18)
[2023-02-07] MEDS: Lithium Carbonate ER 300 MG TABLET.ER 600 MG PO (08:56)
[2023-02-07] MEDS: Venlafaxine HCl ER 150 MG CAP.ER.24H PO (08:56)
[2023-02-07] MEDS: amLODIPine Besylate 2.5 MG TABLET 7.5 MG PO (08:56)
[2023-02-07] MEDS: Ferrous Sulfate 324 MG TABLET.DR PO (08:56)
[2023-02-07] MEDS: Benztropine Mesylate 0.5 MG TABLET PO ×2 (08:56→20:17)
[2023-02-07] MEDS: Acetaminophen 325 MG TABLET 650 MG PO ×2 (09:18→18:58)
--- NOTE | 2023-02-07 14:45 | HO.PSYCHPN ---
Subjective Subjective Date of Service: 02/07/23 Reason For Visit: depressed/ si Interim History: calm, cooperative. asking for intranasal medication for allergies. c/o feeling sedated, agreeable to move haldol dosing largely to bedtime, from 10 BID to 5/15. will also switch lithium dosing to HS. had sleep study last night, which he reports went fine. per staff, RIS but denies AVH. +ADLs. heavy PRN use. no loud self-dialoguing. had sleep study, slept 6 hours. Mental Status Exam Mental Status Exam Narrative: Appearance: wearing casual clothing, fair hygiene, in NAD Psychomotor: no PMA/PMR Speech: clear, nml rate. nml loudness, amount. TP: linear, logical TC: no paranoid delusions expressed Mood: not assessed Affect: flexible, normo-intense, non-labile SI: none expressed HI: none expressed VH/AH: none expressed Insight/judgment: impaired x 2 Diagnostics Vital Signs (24Hr): Vital Signs - 24 hr 02/06/23 20:15 02/07/23 07:25 Temperature 97.0 F 97.4 F Pulse Rate 96 97 Respiratory Rate 18 16 Blood Pressure 154/84 H 148/66 H Pulse Oximetry 97 96 Oxygen Delivery Method Room Air Room Air BMI result Body Mass Index 39.2 Labs 02/05/23 08:05 Labs: Laboratory Results - last 48 hr 02/05/23 02/06/23 02/06/23 21:10 08:04 11:15 POC Glucose 113 95 116 H 02/06/23 02/07/23 20:13 08:28 POC Glucose 121 H 94 Medications Medications Current Medications Acetaminophen (Acetaminophen 325 Mg Tablet) 650 mg PO Q6H PRN PRN Reason: Headache/Pain Mild Scale (1-3) Last Admin: 02/07/23 09:18 Dose: 650 mg Al Hydroxide/Mg Hydroxide (Magnesium Hydrox/Alum Hydrox 30 Ml Oral.Susp) 30 ml PO Q6H PRN PRN Reason: Heartburn/Nausea Last Admin: 02/07/23 05:41 Dose: 30 ml Amlodipine Besylate (Amlodipine Besylate 2.5 Mg Tablet) 7.5 mg PO DAILY [facility]; Protocol Last Admin: 02/07/23 08:56 Dose: 7.5 mg Benztropine Mesylate (Benztropine Mesylate 0.5 Mg Tablet) 0.5 mg PO BID [facility] Last Admin: 02/07/23 08:56 Dose: 0.5 mg Docusate Sodium (Docusate Sodium 100 Mg Capsule) 100 mg PO BEDTIME [facility] Last Admin: 02/06/23 22:16 Dose: 100 mg Ferrous Sulfate (Ferrous Sulfate 324 Mg Tablet.Dr) 324 mg PO Q48H [facility] Last Admin: 02/07/23 08:56 Dose: 324 mg Fluticasone Propionate (Fluticasone Propionate Nasal 16 [address] [place]) 1 spray NOSTRIL-B DAILY [facility] Gabapentin (Gabapentin 400 Mg Capsule) 400 mg PO TID [facility] Last Admin: 02/07/23 08:56 Dose: 400 mg Haloperidol (Haloperidol 5 Mg Tablet) 15 mg PO BEDTIME [facility] Haloperidol (Haloperidol 5 Mg Tablet) 10 mg PO ONCE ONE Stop: 02/07/23 21:01 Haloperidol (Haloperidol 5 Mg Tablet) 5 mg PO DAILY [facility] Hydroxyzine HCl (Hydroxyzine Hcl 25 Mg Tablet) 25 mg PO Q6H PRN PRN Reason: Anxiety Last Admin: 02/06/23 11:17 Dose: 25 mg [place] Carbonate ([place] Carbonate Er 300 Mg Tablet.Er) 600 mg PO BEDTIME [facility] Loratadine (Loratadine 10 Mg Tablet) 10 mg PO BEDTIME [facility] Last Admin: 02/06/23 22:17 Dose: 10 mg Magnesium Hydroxide (Milk Of Magnesia 30 Ml Oral.Susp) 30 ml PO DAILY PRN PRN Reason: Constipation Metformin HCl (Metformin Hcl Er 500 Mg Tab.Er.24h) 500 mg PO DAILY [facility] Last Admin: 02/07/23 08:56 Dose: 500 mg Multivitamins/Vitamin C (Multivitamin Tablet) 1 tab PO DAILY [facility] Last Admin: 02/07/23 08:56 Dose: 1 tab Nicotine (Nicotine 21 Mg Patch.Td24) 21 mg TRANSDERMA DAILY PRN PRN Reason: smoking cessation Nicotine Polacrilex (Nicotine Polacrilex 2 Mg Gum) 4 mg BUCCAL Q2H PRN PRN Reason: Nicotine Cravings Olanzapine (Olanzapine 5 Mg Tablet) 5 mg PO TID PRN PRN Reason: agitation Last Admin: 02/05/23 23:34 Dose: 5 mg Prazosin HCl (Prazosin Hcl 1 Mg Capsule) 2 mg PO BEDTIME [facility]; Protocol Last Admin: 02/06/23 22:16 Dose: 2 mg Trazodone HCl (Trazodone Hcl 50 Mg Tablet) 50 mg PO BEDTIME MRX1 PRN PRN Reason: Insomnia Last Admin: 02/05/23 23:34 Dose: 50 mg Trazodone HCl (Trazodone Hcl 50 Mg Tablet) 150 mg PO BEDTIME [facility] Last Admin: 02/06/23 22:16 Dose: 150 mg Venlafaxine HCl (Venlafaxine Hcl Er 150 Mg Cap.Er.24h) 150 mg PO DAILY [facility] Last Admin: 02/07/23 08:56 Dose: 150 mg Allergies Allergies Allergy/AdvReac Type Severity Reaction Status Date / Time lisinopril Allergy Unknown Cough Verified 12/15/22 18:44 clonidine AdvReac Unknown Unknown Verified 11/19/22 16:28 Assessment & Plan Assessment & Plan (1) Schizophrenia, chronic condition: Status: Acute Code(s): F20.9 - Schizophrenia, unspecified Plan 32 yo male with history of schizophrenia. He was transferred from [facility]. Patient presented to the hospital due to having tremors and having SI. He reported he had a change in his medications at [facility] where he gets treatment. He had thoughts of cutting himself. He reported he has been having increase AH. Plan: Admit to Restart medications Collateral information Group and milieu therapy Disposition planning. 02/05: Continue current management and treatment plan. 02/06: order sleep study (morbid obesity, daytime tiredness, morning METCALF), PT for B/L knee pain, dietary consult for food choice education for DM. 02/07: sleep study completed. remains c/o sedation. lithium moved to . haldol redistributed from 10 BID to 07/04. travel counselor [employer] did not see pt. new consult for DM educator placed for same purpose. awaiting PT consult. Reason for continued inpatient stay Substantial Risk for: inability to function and rapid decompensation Time Spent With Patient Time: Total time managing care of this patient today _35___ minutes.
[2023-02-07] MEDS: Fluticasone Propionate Nasal 16 GM SPRAY 1 SPRAY NOSTRIL-B (15:54)
[2023-02-07 20:00] VITALS: BP 140/72; PULSE 96; RESP 16; TEMP 36.4; O2SAT 96
[2023-02-07] MEDS: traZODone HCL 50 MG TABLET 150 MG PO (20:13)
[2023-02-07] MEDS: HaloperidoL 5 MG TABLET 15 MG PO (20:14)
[2023-02-07] MEDS: Prazosin HCL 1 MG CAPSULE 2 MG PO (20:15)
[2023-02-07] MEDS: Loratadine 10 MG TABLET PO (20:17)
[2023-02-07 20:18] LABS: COVID-19 Test Negative (Negative); IDNOW Serial# 08D9AD1C
[2023-02-07] MEDS: Docusate Sodium 100 MG CAPSULE PO (20:19)
--- NOTE | 2023-02-07 23:45 | PC.RT ---
RT unable to start overnight sleep study due to equipment issues. RN made aware. Pt sleeping at this time
[2023-02-08 07:53] LABS: Glucose, Whole Blood 91 mg/dL (60-115)
[2023-02-08 08:14] VITALS: BP 131/72; PULSE 84; RESP 16; TEMP 36.6; O2SAT 99
[2023-02-08] MEDS: Benztropine Mesylate 0.5 MG TABLET PO ×2 (08:41→23:01)
[2023-02-08] MEDS: Multivitamin TABLET 1 TAB PO (08:41)
[2023-02-08] MEDS: amLODIPine Besylate 2.5 MG TABLET 7.5 MG PO (08:41)
[2023-02-08] MEDS: Venlafaxine HCl ER 150 MG CAP.ER.24H PO (08:42)
[2023-02-08] MEDS: metFORMIN HCl ER 500 MG TAB.ER.24H PO (08:42)
[2023-02-08] MEDS: HaloperidoL 5 MG TABLET PO (08:42)
[2023-02-08] MEDS: Gabapentin 400 MG CAPSULE PO ×3 (08:42→23:02)
[2023-02-08 08:59] LABS: Lithium 0.16 mmol/L (0.60-1.20)
[2023-02-08] MEDS: Acetaminophen 325 MG TABLET 650 MG PO (09:54)
[2023-02-08] MEDS: Sertraline HCL 50 MG TABLET PO (10:36)
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
[2023-02-08] MEDS: traZODone HCL 50 MG TABLET 150 MG PO (23:00)
[2023-02-08] MEDS: HaloperidoL 5 MG TABLET 15 MG PO (23:01)
[2023-02-08] MEDS: Loratadine 10 MG TABLET PO (23:01)
[2023-02-08] MEDS: Docusate Sodium 100 MG CAPSULE PO (23:01)
[2023-02-08] MEDS: Lithium Carbonate ER 300 MG TABLET.ER 600 MG PO (23:02)
[2023-02-08] MEDS: Prazosin HCL 1 MG CAPSULE 2 MG PO (23:02)
[2023-02-08 23:07] VITALS: BP 147/83; PULSE 87; RESP 16; TEMP 36.4; O2SAT 97
[2023-02-08 23:33] LABS: Glucose, Whole Blood 97 mg/dL (60-115)
[2023-02-09] MEDS: Acetaminophen 325 MG TABLET 650 MG PO (06:19)
[2023-02-09 07:00] VITALS: BMI 39.0
[2023-02-09 07:45] LABS: Glucose, Whole Blood 87 mg/dL (60-115)
[2023-02-09 07:54] VITALS: BP 113/60; PULSE 82; RESP 16; TEMP 36.4; O2SAT 98
[2023-02-09] MEDS: Ferrous Sulfate 324 MG TABLET.DR PO (08:07)
[2023-02-09] MEDS: metFORMIN HCl ER 500 MG TAB.ER.24H PO (08:07)
[2023-02-09] MEDS: HaloperidoL 5 MG TABLET PO (08:07)
[2023-02-09] MEDS: Benztropine Mesylate 0.5 MG TABLET PO (08:08)
[2023-02-09] MEDS: Multivitamin TABLET 1 TAB PO (08:08)
[2023-02-09] MEDS: Venlafaxine HCl ER 150 MG CAP.ER.24H PO (08:08)
[2023-02-09] MEDS: Gabapentin 400 MG CAPSULE PO (08:08)
[2023-02-09] MEDS: Sertraline HCL 50 MG TABLET PO (08:08)
[2023-02-09] MEDS: amLODIPine Besylate 2.5 MG TABLET 7.5 MG PO (08:09)
== END 2023-02-09 11:21 | disposition home or self-care (01) | DRG 885 ==
PROVIDERS: Internal Medicine; Psychiatry & Neurology Psychiatry; Social Worker; Student in an Organized Health Care Education/Training Program; Admitting Provider Psychiatry & Neurology Psychiatry; Visit Provider Psychiatry & Neurology Psychiatry
DX: F20.0 Paranoid schizophrenia (principal); E11.9 Type 2 diabetes mellitus without complications; Z20.822 Contact with and (suspected) exposure to COVID-19; Z79.51 Long term (current) use of inhaled steroids; Z79.84 Long term (current) use of oral hypoglycemic drugs; Z79.899 Other long term (current) drug therapy
CPT/HCPCS: 36415; 80061; 80178; 82565; 82947; 83036; 87635; 97161

== ENCOUNTER → 2023-02-03 19:38 | Outpatient (BNV) | payer OTHER, SELFPAY | PROVIDERS: Admitting Provider Psychiatry & Neurology Psychiatry; Visit Provider Psychiatry & Neurology Psychiatry | DX: F20.89 Other schizophrenia (principal) | CPT/HCPCS: 90792; 99231; 99232; 99239 ==

== ENCOUNTER → 2023-02-03 19:38 | Outpatient (BNV) | payer OTHER, SELFPAY | PROVIDERS: Admitting Provider Psychiatry & Neurology Psychiatry; Visit Provider Student in an Organized Health Care Education/Training Program | DX: Z02.2 Encounter for examination for admission to residential institution (principal) | CPT/HCPCS: 99429 ==

== ENCOUNTER 2023-02-27 19:05 | Inpatient (IN) | payer OTHER, SELFPAY ==
--- OUTSIDE RECORDS SUMMARY | 2023-02-27 19:12 | XMS_ITS | Continuity of Care Document ---
Author Name Unknown Organization [facility] ter Address [address] [place] [address]- Care Team Providers Care Supervisor [employer] Name Role Phone Delia ACOSTA, Lamine [place] Primary Care Physician [facility] Date[facility] 02/24/23 - 02/25/[address] [address]- Encounter Diagnosis Suicidal ideation(Final) - 02/24/23 Discharge Disposition: A-D/C Home Attending Physician: Juan Luis Zhao MD Admitting Physician: Juan Luis hZao MD Referring Physician: Not on Staff, Referring MD Allergies, Adverse Reactions, Alerts Substance Reaction Severity Status lisinopril dry cough Active Dust Mild Active Milk Products Nausea and vomiting Persistent Moderate Active cloNIDine confusion Active Immunizations Given and Recorded Vaccine Date Status Refusal Reason pneumococcal 20-valent conjugate vaccine 02/23/23 Given influenza virus vaccine, inactivated 02/23/23 Give n influenza virus vaccine, inactivated 02/07/22 Give n influenza virus vaccine, inactivated 03/19/21 Give n influenza virus vaccine, inactivated 12/30/19 Give n influenza virus vaccine, inactivated 1 10/11/11 Gi annia influenza virus vaccine, inactivated 2 12/30/10 Gi annia [id number] 12y+ bivalent booster vax 02/07/22 Given SARS-CoV-2 (COVID-19) mRNA BNT-162b2 vac 09/10/20 Given SARS-CoV-2 (COVID-19) mRNA BNT-162b2 vac 08/20/20 Given tetanus-diphtheria toxoids (Td) 12/30/19 Given pneumococcal 23-valent vaccine 07/19/11 Given tetanus/diphtheria/pertussis, acel(Tdap) 08/11/09 Given 1Admin Note: VIS 08/31 2Admin Note: flulaval vis given vis date 09/14/2010 Medications amLODIPine 5 mg oral tablet 5 mg, Tablet, By Mouth, 02/25/23 9:00:00 EST Start Date: 02/25/23 Stop Date: 02/25/23 Status: Completed amlodipine-olmesartan 5 mg-20 mg oral tablet 1 tablet, By Mouth, Daily, # 30 tablet, 4 Refills, Maintenance, 02/23/23 13:37:00 EST, Tablet, [facility] [id number], discontinue amlodipine 2.5 mg daily. replace with this combo tab, 1 tablet By Mouth Daily, 178, cm, 02/23/23... Start Date: 02/23/23 Status: Ordered benztropine 1 mg oral tablet 0.5 mg, 0.5, tablet, By Mouth, 2 times a day Start Date: 07/26/22 Status: Ordered BP machine BP machine, See Instructions, # 1 each, Refills 0, Tot. Refills 0, Maintenance, Dx: HTN I10 duration: lifetime, 01/31/23 14:37:00 EST, Supply Start Date: 01/31/23 Status: Ordered diclofenac 1% topical gel 1 application, Topically, 4 times a day, 2g per application on elbow, wrist or hand; 4g per application on knee ankle or foot., # 100 Gm, 4 Refills, Maintenance, 02/23/23 13:53:00 EST, Gel, [facility] [id number], Partial fill... Start Date: 02/23/23 Status: Ordered docusate sodium 100 mg oral capsule 1 capsule, By Mouth, Daily, # 30 each, 1 Refills, Maintenance, 06/06/22 16:49:00 EDT, [facility] [id number], 178, cm, 06/06/22 16:31:00 EDT, Height, 101.4, kg, 01/12/22 14:14:00 EST, Dry Weight Start Date: 06/06/22 Status: Ordered Flonase 50 mcg/inh nasal spray 2 sprays = 100 mcg, Nares, Both, Daily in AM, # 3 each, 3 Refills, Maintenance, 02/23/23 13:39:00 EST, [place], [facility] [id number], Partial fill upon patient request if the prescription is for a schedule II opioid drug., 2 sp... Start Date: 02/23/23 Status: Ordered folic acid 1 mg oral tablet 1, tablet, By Mouth, Daily, # 30 tablet, Refills 5, Tot. Refills 5, Maintenance, 06/06/22 16:49:00 EDT, Route to Pharmacy Electronically, [facility], [place] - [id number], 178, cm, 06/06/22 16:31:00 EDT, Height, 101.4, kg, 01/12/22 14:14... Start Date: 06/06/22 Status: Ordered Freestyle Lite Lancets See Instructions, # 200 each, Refills 11, Tot. Refills 11, Maintenance, TID AC and qHS, E11.65, 02/23/23 13:52:00 EST, Compound, 178, cm, 02/23/23 13:19:00 EST, Height, 114, kg, 01/08/23 23:07:00 EST, Dry Weight Start Date: 02/23/23 Status: Ordered Freestyle Lite Monitor See Instructions, # 1 each, Refills 0, Tot. Refills 0, Maintenance, use as directed to check glucose daily for Type 2 Diabetes Mellitus, E11.9, 01/31/23 13:43:00 EST, Supply, 178, cm, 01/08/23 23:07:00 EST, Height, 114, kg, 01/08/23 23:07:00 EST, Dry... Start Date: 01/31/23 Stop Date: 03/02/23 Status: Ordered FreeStyle Lite Strips FreeStyle Lite Strips, See Instructions, # 50 Unknown, 11 Refills, Maintenance, USE TO TEST FINGER STICK BLOOD SUGAR ONCE DAILY fasting, 11/16/22 17:06:00 EDT, 179, cm, 08/26/22 13:16:00 EDT, Height,111.5, kg, 11/14/22 21:00:00 EDT, Dry Weight Start Date: 11/16/22 Status: Ordered Freestyle Lite Test Strips See Instructions, # 200 each, Refills 11, Tot. Refills 11, Maintenance, Check POC daily and if symptoms of sweats, dizziness, confusion, DX E11.9, 02/23/23 13:52:00 EST, Compound, 178, cm, 02/23/23 13:19:00 EST, Height, 114, kg, 01/08/23 23:07:00 EST,... Start Date: 02/23/23 Status: Ordered gabapentin 100 mg oral capsule [...] Dry Weight Start Date: 11/16/22 Status: Ordered LARGE Blood pressure monitor LARGE Blood pressure monitor, See Instructions, # 1 each, Refills 0, Tot. Refills 0, Maintenance, Use as directed to check blood pressure 2x/wk about 2 hours after taking BP meds. Dx: HTN I10; Duration: Lifetime, 02/24/23 11:10:00 EST, Supply Start Date: 02/24/23 Status: Ordered loratadine 10 mg oral tablet 10 mg, 1, tablet, By Mouth, Daily, # 90 tablet, Refills 3, Tot. Refills 3, Maintenance, 02/23/23 13:39:00 EST, Route to Pharmacy Electronically, [facility] [place], [place] - [id number], 178, cm, 02/23/23 13:19:00 EST, Height, 114, kg, 01/08/23... Start Date: 02/23/23 Status: Ordered metFORMIN 500 mg oral tablet, extended release 2 tablet = 1,000 mg, By Mouth, 2 times a day, 1 tab daily x 1 week then 1 tab BID x 1 week then 2 tabs BID, # 120 tablet, 4 Refills, Maintenance, 02/23/23 13:34:00 EST, ER Tablet, [place], [place] - [id number], Partial fill upon patie... Start Date: 02/23/23 Status: Ordered pantoprazole 40 mg oral delayed release tablet 1 tablet, By Mouth, Daily, # 90 tablet, 3 Refills, Maintenance, 02/23/23 13:40:00 EST, 178, cm, 02/23/23 13:19:00 EST, Height, 114, kg, 01/08/23 23:07:00 EST, Dry Weight Start Date: 02/23/23 Status: Ordered prazosin 2 mg oral capsule [...] sleep apnea, Complex sleep apnea Confirmed Active Knee pain, bilateral Confirmed Active BHN/CCA/Keypuncher-Tia Jarrett [phone]/[facility], active care coordination Confirmed Active Severe obesity Confirmed Active Treatment-emergent central sleep apnea Confirmed [...] Exam Date Time Procedure Performing Provider Status 02/24/23 9:38 PM Chest 2 Views Frontal and Lat James Velasquez; Auth (Verified) Notes: (Chest 2 Views Frontal and Lat) Reason For Exam: Shortness of Breath, Fever;Other: RESULT: Chest 2 Views Frontal and Lat Chest 2 Views Frontal and Lat Hx of Present Illness: SI; Reason: Other:; Shortness of Breath, Fever; Clinical Question(s): Pneumonia COMPARISON: 01/10/2022 FINDINGS: LINES AND TUBES: None. LUNGS AND PLEURA: Clear lungs. Normal pulmonary vascularity. No pleural effusion. No pneumothorax. HEART, MEDIASTINUM AND ZAIRE: Heart is normal in size. Normal mediastinal and hilar contour. BONES AND SOFT TISSUES: No acute abnormality. IMPRESSION: No acute abnormality. WSN: [id number] Ordering Physician: Carolina Manuel Dictated By: Eduardo Sam MD Dictated Date/Time: 02/24/23 9:57 pm Reviewed By: Eduardo Sam MD Signed By: Eduardo Sam MD Signed Date/Time: 02/24/23 9:57 pm Transcribed By: TIP Transcribed Date/Time: 02/24/23 9:57 pm Vital Signs Most recent to oldest [Reference Range]: 1 2 3 Oxygen Saturation [94-100 %] 97 % (02/25/23 11:00 AM) 96 % (02/25/23 9:06 AM) 99 % (02/25/23 1:48 AM) Pulse Rate [55-90 bpm] 66 bpm (02/25/23 11:00 AM) 65 bpm (02/25/23 9:06 AM) 73 bpm (02/25/23 1:48 AM) Blood Pressure [90-138/55-84 mm Hg] 127/77mm Hg (02/25/23 11:00 AM) 126/75mm Hg (02/25/23 9:48 AM) 126/75mm Hg (02/25/23 9:06 AM) Respiratory Rate [16-30 br/min] 18 br/min (02/25/23 11:00 AM) 18 br/min (02/25/23 9:06 AM) 18 br/min (02/25/23 1:48 AM) Temperature [96.8-100.4 DegF] 98 DegF (02/25/23 9:06 AM) 98.1 DegF (02/25/23 1:48 AM) 98.7 DegF (02/24/23 8:55 PM) Mode of Delivery (Oxygen) Room air (02/25/23 11:00 AM) Room air (02/25/23 9:06 AM) Room air (02/25/23 1:48 AM) Blood pressure sites Arm, right (02/25/23 11:00 AM) Arm, right (02/25/23 9:06 AM) Arm, right (02/25/23 1:48 AM) Temperature Route Oral (02/25/23 9:06 AM) Oral (02/25/23 1:48 AM) Oral (02/24/23 8:55 PM) Social History Social History Type Response Smoking Status Never smoker entered on: 10/02/13 Sex Male EKG study * Event Display: ECG 12-Lead Authored Date: Please click on pdf link to open report * Event Display: ECG 12-Lead Authored Date: Ventricular Rate: 58 BPM Atrial Rate: 58 BPM P-R Interval: 180 ms QRS Duration: 86 ms Q-T Interval: 408 ms QTC Calculation(Bazett): 400 ms P [place]: 55 degrees R [place]: 25 degrees T [place]: 22 degrees Sinus bradycardia with sinus arrhythmia Otherwise normal ECG Confirmed by BAL ULRICH ([id number]) on 02/25/2023 11:56:00 PM [place]: BAL ULRICH * Event Display: ECG 12-Lead Authored Date: [id number] Please click on pdf link to open report * Event Display: ECG 12-Lead Authored Date: [id number] Ventricular Rate: 77 BPM Atrial Rate: 77 BPM P-R Interval: 180 ms QRS Duration: 88 ms Q-T Interval: 374 ms QTC Calculation(Bazett): 423 ms P [place]: 42 degrees R [place]: 12 degrees T [place]: 20 degrees Normal sinus rhythm Normal ECG When compared with ECG of 10-JAN-2022 19:24, Non-specific change in ST segment in Anterolateral leads T wave inversion no longer evident in Inferior leads T wave inversion no longer evident in Anterolateral leads Confirmed by BAL ULRICH ([id number]) on 02/25/2023 11:55:44 PM [place]: BAL ULRICH Note * Juan Luis Zhao MD: PERFORM Event Display: Patient Education Leaflets Authored Date: [id number] Suicidal, 72-Hour Hold ?? [id number] Pensamientos de suicidio (retenci??n por 72??horas) El m??dico determin?? que sarai pensamientos o acciones son suicidas. Tambi??n determin?? que existe el peligro de que intente hacerse da??o a s?? mismo si abandona el lugar. [place] suele ser un signo dedepresi??n o enojo intenso consigo mismo o con otra persona. A fin de protegerlo y asegurar flores bienestar, lo declararon en condici??n legal de retenci??n por 72??horas . [place] es para que pueda evaluarlo un psiquiatra. ??Qu?? es caleb retenci??n por 72??horas ? La annalise establece que debe quedar retenido por hasta 72??horas para que le elidia caleb evaluaci??n psiqui??trica si caleb persona certificada (p.??ej., un proveedor de atenci??n m??dica, un oficial de polic??a o un ayudante de alguacil) determina que usted se encuentra en alguna de estas circunstancias: ??? Es un peligro para s?? mismo o para otras personas ??? Es incapaz de cuidar de s?? mismo ??? Est?? gravemente incapacitado La retenci??n se aplica incluso si usted no est?? de acuerdo. ?? Atenci??n de seguimiento Cuando le permitan irse, jose caleb consulta de seguimiento con el m??dico o el proveedor de aden mental. [place] es muy importante para flores bienestar continuo. ?? Cu??ndo llamar o enviar un mensaje de texto al?? 988 [place] o env??e un mensaje de texto al?? 988 si tiene pensamientos suicidas, un plan suicida y los medios para llevar a cabo dicho plan o si tiene pensamientos graves acerca de atacar a otra persona. Cuando llame o env??e un mensaje de texto al?? 988, se lo pondr?? en contacto con un consejero de crisis capacitado de la L??wesley de Prevenci??n del Suicidio. Tambi??n hay disponible caleb opci??n de chat en l??wesley. La l??wesley es gratuita y funciona las 24??horas, los 7??d??as de la semana. ?? Cu??ndo debe buscar atenci??n m??dica Llame al proveedor de atenci??n m??dica o a los servicios de emergencia de inmediato si sucede algode lo siguiente: ??? Los s??ntomas vuelven a aparecer de manera gradual o repentina ??? Experimentaefectos secundarios de los medicamentos ??? Se siente muy deprimido, ansioso o enojado consigo mismo o con los dem??s ??? Siente que perdi?? el control ??? Siente que puede da??ar a otra persona o da??arse a usted mismo ??? Oye voces que los dem??s no escuchan ??? Ve cosas que los dem??s no annia ???Experimenta cambios intensos de humor ??? No puede dormir ni de comer axel 3??d??as seguidos ???Sarai familiares o amigos manifiestan preocupaci??n por flores bienestar y comportamiento, y le piden que busque ayuda ?? M??s informaci??n ??? L??w[place] Nacional de Prevenci??n del Suicidio, en www.suicidepreventionlifeline.org o al??326-487-MYNO (181-315-2855). Si tiene caleb crisis, llame o env??e un mensaje de texto al?? 988 ??? [place] Nacional sobre Enfermedades Mentales (National [place] on Mental Illness), en www.mart.org o al??327.701.1165 ??? Mental Health [place], en www.nmha.org o al??862.174.6500 ??? Instit[facility] Nacional de laSalud Mental (National [place] of Mental Health), en www.nimh.nih.gov o al??831.693.6043 ?? Last Reviewed Date: 2021 ?? 1057-9275 [employer]. Todos los derechos reservados. Esta informaci??n no pretende sustituir la atenci??n m??dica profesional. S??lo flores m??dico puede diagnosticar y tratar un problema de aden. ?? Patient Care team information Care Team Personnel Name: Ela Beltrán RN Position: [facility] AMB Nurse Member Role: Primary Care Nurse Name: Alaina Gillette RN Position: [facility] RN Member Role: Primary Care Nurse Name: Kristyn Tapia RN Position: [facility] SN RN Member Role: Primary Care Nurse Name: Lorna Gentile NP Position: [facility] Associate Professional Member Role: Primary Care Nurse Address: Address: [address] [place] [address]- [place] Name: Venus Jaramillo RN Position: [facility] RN Member Role: Primary Care Nurse Name: Flor Donnelly RN Position: [facility] RN Member Role: Primary Care Nurse Name: Ruiz Matson RN Position: [facility] RN Member Role: Primary Care Nurse Name: Belle Ames RN Position: [facility] RN Member Role: Primary Care Nurse Name: Alex Rios RN Position: [facility] RN Member Role: Primary Care Nurse Name: Daniel Hernandez III, RN Position: [facility] RN Member Role: Primary Care Nurse Name: Jordi Carter MD Position: [facility] Renal MD Member Role: Lifetime Consulting Physician Address: Address: [address] [facility], [place] [address]- [place] Name: Loren Hamlin RN Position: [facility] RN Member Role: Primary Care Nurse Name: Malia Wise RN Position: [facility] RN Member Role: Primary Care Nurse Name: Lamine Lin MD Position: [facility] Physician - Primary Care Member Role: PCP Address: Address: [address] [place] [address]- [place] Name: Rose Abraham RN Position: [facility] Hospital Keypunch Operator Member Role: Primary Care Nurse Name: Vinod Botello MD Position: [facility] Physician - Behavioral Health Member Role: Lifetime Consulting Physician Address: Address: [address] [place] [address]- [place] [facility] Attending Position: [facility] ED Attendings Patient Name: Juan Luis Zhao MD Position: [facility] ED Medicine MD Member Role: Admitting Physician Address: Address: [address] [place] [address] [place] Name: Maria E Srivastava RN Position: [facility] ED RN W/OE and Tasks Member Role: Patient Care Provider Care Team Related Persons Name: GELACIOTAMMYMALIA Name: KATHLEEN JACQUES Address: home [address] [place] [address] Name: VIRGIL PARKS Address: home [address] [place] [address] Name: MICHAELA MONTENEGRO Address: home UNKNOWN Name: MIGUEL PUENTES Address: home [address] [place] [address]
--- OUTSIDE RECORDS SUMMARY | 2023-02-27 19:15 | XMS_ITS | Continuity of Care Document ---
Author Name Unknown Organization [facility] Address [address] [place] [address]- Care Team Providers Care Armed Security Guard Name Role Phone Delia ACOSTA, Lamine [place] Primary Care Physician [facility] - 02/25/23 [facility] [address] [place] [address]- Allergies, Adverse Reactions, Alerts Substance Reaction Severity [...] virus vaccine, inactivated 2 12/30/10 Gi annia [id number] 12y+ bivalent booster vax 02/07/22 Given SARS-CoV-2 (COVID-19) mRNA BNT-162b2 vac 09/10/20 Given SARS-CoV-2 (COVID-19) mRNA BNT-162b2 vac 08/20/20 Given tetanus-diphtheria toxoids (Td) 12/30/19 Given pneumococcal 23-valent vaccine 07/19/11 Given tetanus/diphtheria/pertussis, acel(Tdap) 08/11/09 Given 1Admin Note: VIS 08/31 2Admin Note: flulaval vis given vis date 09/14/2010 Medications amlodipine-olmesartan 5 mg-20 mg oral tablet 1 tablet, By Mouth, Daily, # 30 tablet, 4 Refills, Maintenance, 02/23/23 13:37:00 EST, Tablet, [facility] [id number], discontinue amlodipine 2.5 mg daily. replace with [...] 4 Refills, Maintenance, 02/23/23 13:53:00 EST, Gel, [facility] [id number], Partial fill... Start Date: 02/23/23 Status: Ordered docusate sodium 100 mg oral capsule 1 capsule, By Mouth, Daily, # 30 each, 1 Refills, Maintenance, 06/06/22 16:49:00 EDT, [facility] [id number], 178, cm, 06/06/22 16:31:00 EDT, Height, 101.4, kg, 01/12/22 14:14:00 EST, Dry Weight Start Date: 06/06/22 Status: Ordered Flonase 50 mcg/inh nasal spray 2 sprays = 100 mcg, Nares, Both, Daily in AM, # 3 each, 3 Refills, Maintenance, 02/23/23 13:39:00 EST, [place], [facility] [id number], Partial fill upon patient request if the prescription is for a schedule II opioid drug., 2 sp... Start Date: 02/23/23 Status: Ordered folic acid 1 mg oral tablet 1, tablet, By Mouth, Daily, # 30 tablet, Refills 5, Tot. Refills 5, Maintenance, 06/06/22 16:49:00 EDT, Route to Pharmacy Electronically, [place], [place] - [id number], 178, cm, 06/06/22 16:31:00 EDT, Height, 101.4, [...] 02/23/23 13:39:00 EST, Route to Pharmacy Electronically, [facility], [place] - [id number], 178, cm, 02/23/23 13:19:00 EST, Height, 114, kg, 01/08/23... Start Date: 02/23/23 Status: Ordered metFORMIN 500 mg oral tablet, extended release 2 tablet = 1,000 mg, By Mouth, 2 times a day, 1 tab daily x 1 week then 1 tab BID x 1 week then 2 tabs BID, # 120 tablet, 4 Refills, Maintenance, 02/23/23 13:34:00 EST, ER Tablet, [facility], [place] - [id number], Partial fill upon patie... Start Date: 02/23/23 [...] Confirmed Active Knee pain, bilateral Confirmed Active BHN/CCA/Record Pressman-Tia Jarrett [phone]/Health halfway, active care coordination Confirmed Active Severe obesity [...] Member Role: Primary Care Nurse Address: Address: [address] [place] [address]- [place] Name: Venus Jaramillo RN Position: [facility] [...] Member Role: Lifetime Consulting Physician Address: Address: [address] [place] [address] [address] [facility], [place] [address]- [place] Name: Loren Hamlin RN Position: S RN Member Role: Primary Care Nurse Name: Malia Wise RN Position: [facility] RN Member Role: Primary Care Nurse Name: Lamine Lin MD Position: [facility] Physician - Primary Care Member Role: PCP Address: Address: [address] [facility] [place] [address]- Name: Rose Abraham RN Position: [facility] Hospital Hydrochloric Area Supervisor Member Role: Primary Care Nurse Name: Vinod Botello MD Position: [facility] Physician - Behavioral Health Member Role: Lifetime Consulting Physician Address: Address: [address] [place] [address]- Care Team Related Persons Name: MALIA HARRIS Name: KATHLEEN JACQUES Address: home [address] [place] [address] Name: VIRGIL PARKS Address: home [address] [place] [address] Name: MICHAELA MONTENEGRO Address: home UNKNOWN Name: MIGUEL PUENTES Address: home [address] [place] [address]
--- OUTSIDE RECORDS SUMMARY | 2023-02-27 19:16 | XMS_ITS | Patient Health Record ---
Author Name Unknown Organization [facility] Address [address] [place] [address] Care Team Providers Care Branch Sales Manager Name Role Phone Lamine Lin Primary Care Provider Unavailabl e Clinical, Operations Unavailable Unavailable ALLERGIES Allergen (clinical drug ingredient) Drug/Non Drug Allergy documented on EMR Reaction Allergy Type Onset Date Status lisinopril Lisinopril Unknown Drug Allergy Activ e clonidine Clonidine Unknown Drug Allergy Active Milk-related Compounds Unknown Drug Allergy Active REASON FOR REFERRAL Reason Referral for Chores Services (Heavy Chores approved for 3 hours one time only) Authorization [id number] valid: 08/29/22 - 11/19/22 Diagnosis 1 Schizoaffective diso rder, bipolar type (F25.0) Diagnosis 2 Anxiety (F41.1) Diagnosis 3 Alteration in self-c are ability (R53.81) Diagnosis 4 Assistance needed at home (Z74.2) Referring Provider First Name Operations Referring Provider Last Name Clinical Referring Provider Speciality Unknown Referred Provider [place]. Referred Provider Specialty Certified [facility] Agency Procedure 1 (Use Modifier UB) Ch ore Services: Heavy per 15 min (S5121) General Notes Tia Jarrett 023 12:13:49 PM >This is a referral for Heavy chore services for 3 hours one time only. Referral with recent office note, demographic information, and approval letter are all attached to this referral. Approval Authorization #[id number] valid 08/29/22 - 11/19/22. If you anticipate that you are not able to accept the referral and accommodate our member, please contact Training Developer-Tia Jarrett at [phone] or via email: [email or web address]., Tia Jarrett 08/25/2022 12:22:41 PM >Stef [place] Roman lives alone, he needs this one time Heavy Chores for 3 hours. He needs all floors sweeped and mopped, kitchen cleaning, bathroom cleaned and bed room dirty clothes washed. Laundry room in building. He lives at [address] [place] [address]. [id number], he will buzz you in to his building. Stef can be reached at [phone], or you can reach his ACCS worker Rosangela Rogers at [phone]. Referral Priority Routine Reason Referral for PC/ s ervices - Authorization [id number] valid 09/04/22 - 03/22/23 (Greenlandic speaking member) Diagnosis 1 Schizoaffective diso rder, bipolar type (F25.0) Diagnosis 2 Diabetes mellitus (E 11.9) Diagnosis 3 Hypertension (I10) Diagnosis 4 Anxiety (F41.1) Diagnosis 5 Chronic malaise (R53 .81) Referring Provider First Name Operations Referring Provider Last Name Clinical Referring Provider Speciality Unknown Referred Provider Homewatch Caregivers Referred Provider Specialty Personal Car e Management Procedure 1 Personal Care (Agenc y, not HYDRAULIC ELEVATOR CONSTRUCTOR) (S5131) Procedure 2 Homemaker Service pe r 15m (S5130) General Notes Tia Jarrett 023 01:57:28 PM >This Referral is being sent to supply the member's demographic information for Authorization #[id number] Valid: 09/04/22 - 03/22/23 for Personal Care and Homemaking services. This is in addition to the Approval Letter that was sent from [facility] which is attached to this referral. Member is a maltese speaking, please accommodate with a maltese speaking personal lines account executive. If you anticipate that you are not able to accept the referral and accommodate our member, please contact Training Developer-Tia Jarrett at [phone] or via email: [email or web address]. Thank you for your continued support. Referral Priority Routine MEDICATIONS Medication SIG (Take, Route, Frequency, Duration) Notes Start Date End Date Status Haloperidol 5 MG 1 tablet Orally Once a day Active traZODone HCl 150 MG 1 tablet at bedtime Orally Once a day Active Benztropine Mesylate 0.5 MG 1 tablet Orally BID Active Fluticasone Propionate 50 MCG/ACT 1 spray in each nostril Nasally Once a day Active Pantoprazole Sodium 40 MG 1 tablet Orall y Once a day Active Haloperidol 5 MG 3 tablets Orally at bedtime Active metFORMIN HCl ER 500 MG 1 tablet with ev ening meal Orally Once a day Active Gabapentin 400 MG 1 tablet Orally Thre e times a day Active hydrOXYzine HCl 25 MG 1 tablet Orally tw ice a day as needed for anxiety Active Prazosin HCl 2 MG 1 capsule at bedtime Orally Once a day Active Venlafaxine HCl ER 150 MG 1 capsule with food Orally Once a day Active amLODIPine Besylate 5 MG 1.5 tablet Oral ly Once a day Active Multivitamin - 1 tablet Orally Once a day Active [place] Carbonate 300 MG 2 capsules at b edtime Orally Once a day Active Colace 100 MG 1 capsule Orally Onc e a day Active Chlorthalidone 25 MG 0.5 tablet in the morning with food Orally Once a day Active Loratadine 10 MG 1 tablet Orally Once a day as needed Active Zoloft 100 MG 1 tablet Orally Once a day Active Ferrous Sulfate 325 (65 Fe) MG 1 tablet Orally every 48 hours Active IMMUNIZATIONS Vaccine Route Administration Date Status Comme nts COVID-19, mRNA, LNP-S, bival ent booster, PF, 30 mcg/0.3 mL Unknown 02/07/2022 Administered Flu Vac (Fluzone /Alfuria) QIV PFS Unknown 03/19/2021 A dministered Flu Vac NOC (vac given elsewhere/pt. refuse/ CI) Unknown 02/07/2022 Administered Pf[employer] COVID-19 Vaccine IM Unknown 08/20/2020 Administered Pfizer-BioNTech COVID-19 Vaccine IM Unknown 09/10/2020 Administered SOCIAL HISTORY Sex Assigned At : Social History Observation Description Sex Assigned At Unknown PROBLEMS Problem Type ICD Code Onset Dates Problem Status W/U Status Risk SNOMED Code Notes Problem Hypertension (I10) Active confirmed Hyp ertension (31031465) Problem Anxiety (F41.1) Active confirmed Anxiet y (08837892) Problem GERD (gastroesophageal reflux disease) (K21.9) Active confirmed Gastroesophagea l reflux disease (721461637) Problem Schizoaffective disorder, bipolar type (F25.0) Active confirmed Schizoaffective disorder, bipolar type (74340330) Problem Diabetes mellitus (E11.9) Active confirmed Diabetes mellit us (86139426) Problem Hypercholesteremia (E78.00) Active confirmed Pure hypercholesterolemia (977816654) Encounters Encounter Location Date Provider Diagnosis [facility]) [address] [place] [phone] 03/30/2022 Operations Clinical [facility] ([facility]) [address] [place] [phone] 08/11/2022 [facility] Clinical [facility] ([facility]) [address] [place] [phone] 09/28/2022 Operations Clinical [facility] ([facility]) [address] [place] [phone] 01/27/2023 Operations Clinical [facility] ([facility]) [address] [place] [phone] 02/10/2023 Operations Clinical [facility] ([facility]) [address] [place] [phone] 02/22/2023 Operations Clinical Schizoaffective disorder, bipolar type F25.0 ; Diabetes mellitus E11.9 ; Hypertension I10 ; GERD (gastroesophageal reflux disease) K21.9 ; Hypercholesteremia E78.00 and Anxiety F41.1 ASSESSMENTS Encounter Date Diagnosis Assessment Notes Treatment Notes Treatment Clinical Notes 02/22/2023 Schizoaffective disorder, bipolar type (ICD-10 - F25.0) 02/22/2023 Diabetes mellitus (ICD-10 - E11.9) 02/22/2023 Hypertension (ICD-10 - I10) 02/22/2023 GERD (gastroesophage al reflux disease) (ICD-10 - K21.9) 02/22/2023 Hypercholesteremia (ICD-10 - E78.00) 02/22/2023 Anxiety (ICD-10 - F41.1) PLAN OF TREATMENT No Information Insurance Providers Payer Name Payer Address Payer Phone Subscriber Number Group Number Insured Name Patient Relationship to Insured Coverage Start Date Coverage End Date [facility] [address] [facility] [facility] [address] [place] [address] [id number] STEF ORTIZ Self - patient is the insured 9 [phone]
[2023-02-27 19:30] VITALS: BP 153/74; PULSE 84; RESP 20; TEMP 2.7; TEMP 36.8; O2SAT 97
--- NOTE | 2023-02-27 19:31 | PC.NURSE ---
Patient arrived to unit approx 1914. Signed conditional voluntary for admission. Skin check completed with RN YANDEL. Nursing admission to be completed.
[2023-02-27] MEDS: traZODone HCL 50 MG TABLET PO (20:45)
[2023-02-27] MEDS: hydrOXYzine HCL 25 MG TABLET PO (20:45)
[2023-02-27] MEDS: traZODone HCL 50 MG TABLET 150 MG PO (23:05)
[2023-02-27] MEDS: Gabapentin 400 MG CAPSULE PO (23:06)
[2023-02-27] MEDS: Benztropine Mesylate 0.5 MG TABLET PO (23:06)
[2023-02-27] MEDS: Prazosin HCL 1 MG CAPSULE 2 MG PO (23:06)
[2023-02-27] MEDS: HaloperidoL 5 MG TABLET 15 MG PO (23:06)
[2023-02-27] MEDS: Ferrous Sulfate 324 MG TABLET.DR PO (23:06)
[2023-02-27] MEDS: Lithium Carbonate ER 300 MG TABLET.ER 600 MG PO (23:06)
[2023-02-27] MEDS: metFORMIN HCl ER 500 MG TAB.ER.24H PO (23:07)
--- NOTE | 2023-02-28 01:07 | PC.ADMIT ---
patient arrived on unit at 1915 on 02/27/23. was a referral from the crisis team at [facility]. nurse to nurse and collateral information obtained prior to admission. this one of several M3 admissions for this 32 year old male. legal:CV. dx: unspecified schizophrenia. on arrival was cooperative to skin assessment. was aware of environment. presented as euphoric, exhibiting grand humor and had rapid speech. stated ''I haven't been taking my medications, I do not like my visiting nurse and I'm tired of my providers'' refused to sign release of information for his out patient providers. did report ''I haven't been taking my medications, I've been partying a lot and smoking a lot'' denies smoking cigarettes and when labs evaluated HARTMAN was negative for cannabis. ''I got suicidal and decided I needed help'' ''I want to start taking my medications'' volume loud, some paranoid thinking. reports after discharge from M3 he was at respite, at home and maybe another hospital'' home medication reconciliation reviewed with MD. has hx of HTN, diabetes. oriented to unit. safety tool completed. tx initiated.
[2023-02-28 01:28] VITALS: BMI 40.2
[2023-02-28] MEDS: Omeprazole 20 MG CAPSULE.DR PO (05:58)
--- NOTE | 2023-02-28 05:58 | PC.NURSE ---
prilosec given at this time per patient request
[2023-02-28 06:00] VITALS: BP 140/72; PULSE 80; RESP 16; TEMP 36.2; O2SAT 98
[2023-02-28 07:49] LABS: Glucose, Whole Blood 112 mg/dL (60-115)
[2023-02-28 08:23] VITALS: BP 138/78; PULSE 95; RESP 18; TEMP 36.3; O2SAT 98
[2023-02-28] MEDS: Fluticasone Propionate Nasal 16 GM SPRAY 1 SPRAY NOSTRIL-B (08:48)
[2023-02-28] MEDS: Sertraline HCL 100 MG TABLET PO (08:49)
[2023-02-28] MEDS: Venlafaxine HCl ER 150 MG CAP.ER.24H PO (08:49)
[2023-02-28] MEDS: amLODIPine Besylate 2.5 MG TABLET 7.5 MG PO (08:49)
[2023-02-28] MEDS: HaloperidoL 5 MG TABLET PO (08:49)
[2023-02-28] MEDS: Loratadine 10 MG TABLET PO (08:49)
[2023-02-28] MEDS: Gabapentin 400 MG CAPSULE PO ×3 (08:50→22:39)
[2023-02-28] MEDS: Multivitamin TABLET 1 TAB PO (08:50)
[2023-02-28] MEDS: Benztropine Mesylate 0.5 MG TABLET PO ×2 (08:51→22:39)
[2023-02-28] MEDS: Docusate Sodium 100 MG CAPSULE PO (08:51)
[2023-02-28 09:07] LABS: Alanine Aminotransferase 22 U/L (0-40); Albumin Level 4.3 g/dL (3.5-5.0); Alkaline Phosphatase 50 U/L (39-117); Anion Gap 9 (12-20); Aspartate Amino Transferase 36 U/L (5-37); Bilirubin Total 0.3 mg/dL (0.0-1.0); Blood Urea Nitrogen 20 mg/dL (9-16); Calcium 9.7 mg/dL (8.4-10.2); Carbon Dioxide 30 mmol/L (22-29); Chloride 104 mmol/L (96-108); Cholesterol 155 mg/dL (<200); Creatinine Clr Calc Pharmacy 128.5; Estimated Glomerular Filt Rate > 60; Glucose Fasting 99 mg/dL (60-99); HDL Cholesterol 43 mg/dL (>40); LDL Cholesterol Calculated 89 mg/dL (<100); Potassium 4.3 mmol/L (3.3-5.1); Sodium 139 mmol/L (135-145); Total Protein 7.3 g/dL (6.5-8.0); Triglycerides 118 mg/dL (<150)
[2023-02-28] MEDS: Acetaminophen 325 MG TABLET 650 MG PO (09:18)
[2023-02-28] MEDS: Capsaicin 0.025% Cream 60 GM TUBE 1 APPL TOPICAL (09:19)
[2023-02-28] MEDS: hydrOXYzine HCL 25 MG TABLET PO ×2 (09:20→13:24)
--- NOTE | 2023-02-28 10:58 | P.CONHOSP_ITS ---
History of Present Illness Data of Consult Service Date: 02/28/23 Primary Care Provider: Unknown Physician HPI Pt is a 32-year-old male with a PMH significant for HTN, GERD, jrr-rujswdu-hyydeqhku diabetes type 2, and schizophrenia?who is admitted to M3 psychiatry unit from [facility] for decompendsated Schizophrenia, SI d/t reportedly not been taking his meds. He has no acute medical complaints Denies shortness of breath, dyspnea on exertion. No fever, chills, nausea, vomiting, abdominal pain. Denies headache, acute vision changes. ?Labs reviewed, grossly unremarkable. No chest pain/pressure, palpitations. Review of Systems 2 Review of Systems: Gen: no fever Resp: no sob, no cough CV: no chest, no HOYT, no leg edema GI: No n/v, no abd pain Neuro: No confusion Psych: depressed/SI [facility] Medical History (Updated 02/28/23 @ 10:58 by Roberto Peña MD) Medical clearance for psychiatric admission Schizoaffective disorder Diabetes HTN (hypertension) Social History Household Members: Other Housing: Apartment Do you presently have visiting nurse or other home services: Yes Unable to assess alcohol history related to: Refusing to respond Patient Tobacco Use Status: Never used Tobacco e-Cigarette/Vaping Use: Never Used Second Hand Smoke Exposure: No Use of substances other than those prescribed or required for medical reasons: No Currently Displaying Signs/Symptoms of Drug Intoxication Withdrawal: No Have you been hit, kicked, punched, or otherwise hurt by someone within the past year? If so, by whom?: No Do you feel safe in your current relationship?: No Current Relationship Is there a partner from a previous relationship who is making you feel unsafe now?: No Are you made to feel afraid or neglected: No Spiritual Healthcare Practices: none identified Rastafarian Healthcare Practices: none identified Cultural Healthcare Practices: none identified Advance Directives: No Advance Directives Information Provided: No Do you have thoughts of harming others: None Do you have a plan to hurt others: No Plan Recently lost weight without trying: No How much weight loss: Not applicable Eating poorly because of decreased appetite: No Nutrition screen score: 0 Nutrition Risks: No Nutritional Risk Poor oral hygiene: No service: No Sexual orientation: Straight/Heterosexual Meds Allergies Allergy/AdvReac Type Severity Reaction Status Date / Time lisinopril Allergy Unknown Cough Verified 12/15/22 18:44 clonidine AdvReac Unknown Unknown Verified 11/19/22 16:28 Active Medications: Current Medications Acetaminophen (Acetaminophen 325 Mg Tablet) 650 mg PO Q6H PRN PRN Reason: Headache/Pain Mild Scale (1-3) Last Admin: 02/28/23 09:18 Dose: 650 mg Al Hydroxide/Mg Hydroxide (Magnesium Hydrox/Alum Hydrox 30 Ml Oral.Susp) 30 ml PO Q6H PRN PRN Reason: Heartburn/Nausea Amlodipine Besylate (Amlodipine Besylate 2.5 Mg Tablet) 7.5 mg PO DAILY [facility]; Protocol Last Admin: 02/28/23 08:49 Dose: 7.5 mg Benztropine Mesylate (Benztropine Mesylate 0.5 Mg Tablet) 0.5 mg PO BID [facility] Last Admin: 02/28/23 08:51 Dose: 0.5 mg Capsaicin (Capsaicin 0.025% Cream 60 Gm Tube) 1 appl TOPICAL TID PRN; Protocol PRN Reason: Pain, Moderate(Pain Scale 4-6) Last Admin: 02/28/23 09:19 Dose: 1 appl Docusate Sodium (Docusate Sodium 100 Mg Capsule) 100 mg PO DAILY [facility] Last Admin: 02/28/23 08:51 Dose: 100 mg Ferrous Sulfate (Ferrous Sulfate 324 Mg Tablet.Dr) 324 mg PO Q48H [facility] Last Admin: 02/27/23 23:06 Dose: 324 mg Fluticasone Propionate (Fluticasone Propionate Nasal 16 Gm [place]) 1 spray NOSTRIL-B DAILY [facility] Last Admin: 02/28/23 08:48 Dose: 1 spray Gabapentin (Gabapentin 400 Mg Capsule) 400 mg PO TID [facility] Last Admin: 02/28/23 08:50 Dose: 400 mg Haloperidol (Haloperidol 5 Mg Tablet) 5 mg PO DAILY [facility] Last Admin: 02/28/23 08:49 Dose: 5 mg Haloperidol (Haloperidol 5 Mg Tablet) 15 mg PO BEDTIME [facility] Last Admin: 02/27/23 23:06 Dose: 15 mg Hydroxyzine HCl (Hydroxyzine Hcl 25 Mg Tablet) 25 mg PO Q6H PRN PRN Reason: Anxiety Last Admin: 02/27/23 20:45 Dose: 25 mg Hydroxyzine HCl (Hydroxyzine Hcl 25 Mg Tablet) 25 mg PO BID PRN PRN Reason: Anxiety Last Admin: 02/28/23 09:20 Dose: 25 mg [place] Carbonate ([place] Carbonate Er 300 Mg Tablet.Er) 600 mg PO BID [facility] Loratadine (Loratadine 10 Mg Tablet) 10 mg PO DAILY [facility] Last Admin: 02/28/23 08:49 Dose: 10 mg Magnesium Hydroxide (Milk Of Magnesia 30 Ml Oral.Susp) 30 ml PO DAILY PRN PRN Reason: Constipation Metformin HCl (Metformin Hcl Er 500 Mg Tab.Er.24h) 500 mg PO BEDTIME [facility] Last Admin: 02/27/23 23:07 Dose: 500 mg Multivitamins/Vitamin C (Multivitamin Tablet) 1 tab PO DAILY [facility] Last Admin: 02/28/23 08:50 Dose: 1 tab Omeprazole (Omeprazole 20 Mg Capsule.Dr) 20 mg PO DAILY [facility] Last Admin: 02/28/23 05:58 Dose: 20 mg Prazosin HCl (Prazosin Hcl 1 Mg Capsule) 2 mg PO BEDTIME [facility]; Protocol Last Admin: 02/27/23 23:06 Dose: 2 mg Sertraline HCl (Sertraline Hcl 100 Mg Tablet) 100 mg PO DAILY [facility] Last Admin: 02/28/23 08:49 Dose: 100 mg Trazodone HCl (Trazodone Hcl 50 Mg Tablet) 50 mg PO BEDTIME MRX1 PRN PRN Reason: Insomnia Last Admin: 02/27/23 20:45 Dose: 50 mg Trazodone HCl (Trazodone Hcl 50 Mg Tablet) 150 mg PO BEDTIME [facility] Last Admin: 02/27/23 23:05 Dose: 150 mg Venlafaxine HCl (Venlafaxine Hcl Er 150 Mg Cap.Er.24h) 150 mg PO DAILY [facility] Last Admin: 02/28/23 08:49 Dose: 150 mg Home Medications Medication Instructions Recorded Confirmed Last Taken Type docusate sodium 100 mg capsule 100 mg PO DAILY 08/02/22 02/27/23 08/02/22 08:58 History pantoprazole 40 mg tablet,delayed 40 mg PO DAILY 08/02/22 02/27/23 08/02/22 05:26 History release amlodipine 2.5 mg tablet 7.5 mg PO DAILY 02/04/23 02/27/23 Unknown History benztropine 0.5 mg tablet 0.5 mg PO BID Reaction 02/04/23 02/27/23 Unknown History gabapentin 100 mg capsule 400 mg PO TID 02/04/23 02/27/23 Unknown History (Neurontin) metformin 500 mg tablet,extended 500 mg PO QPM 02/04/23 02/27/23 Unknown History release 24 hr sertraline 100 mg tablet (Zoloft) 100 mg PO DAILY 02/04/23 02/27/23 Unknown History trazodone 50 mg tablet 150 mg PO BEDTIME Insomnia 02/04/23 02/27/23 Unknown History venlafaxine 150 mg 150 mg PO DAILY 02/04/23 02/27/23 Unknown History capsule,extended release 24 hr (Effexor XR) Physical Exam 2 Vital Signs and Narrative: Vital Signs: Last Vital Signs Temp 97.3 F 02/28/23 08:23 Pulse 95 02/28/23 08:23 Resp 18 02/28/23 08:23 BP 138/78 02/28/23 08:23 Pulse Ox 98 02/28/23 08:23 O2 Del Method Room Air 02/28/23 08:23 BMI result Body Mass Index 40.2 Const: Other: General: AO X 3, no acute distress Heent: WNL Resp: CTA bilateral CVS: S1,S2,RRR GI: +BS, NT, no distention Skin: No rash Neuro: motor grossly intact Psych: appropriate affect, but desorganized through Results Labs 02/28/23 08:44 Labs: Laboratory Results - last 24 hr 02/28/23 02/28/23 07:39 08:44 Anion Gap 9 L Estim Creat Clear Calc 128.5 Estimated GFR > 60 POC Glucose 112 Fasting Glucose 99 Calcium 9.7 Total Bilirubin 0.3 AST 36 ALT 22 Alkaline Phosphatase 50 Total Protein 7.3 Albumin 4.3 Triglycerides 118 Cholesterol 155 LDL Cholesterol, Calc 89 HDL Cholesterol 43 Assessment and Plan (1) Schizophrenia, chronic condition: Status: Acute (2) HTN (hypertension): Status: Acute (3) Diabetes: Status: Acute Plan 32-year-old male with a PMH significant for HTN, GERD, odn-skxcjxv-tdrtgxhzh diabetes type 2, and schizophrenia?who is admitted to inpatient psych for decompensated schizophrenia DM--continue Metformin, SSI, diabetic diet HTN-continue Amlodipine GERD PPI Schizophrenia/mood desorder, managment per Psych Neuropathy, gabapentin Thanks for the consult, will follow PRN
[2023-02-28] MEDS: Lithium Carbonate ER 300 MG TABLET.ER 600 MG PO ×2 (11:07→22:39)
[2023-02-28 13:00] LABS: Glucose, Whole Blood 87 mg/dL (60-115)
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
[2023-02-28 17:23] LABS: Glucose, Whole Blood 105 mg/dL (60-115)
[2023-02-28] MEDS: Magnesium Hydrox/Alum Hydrox 30 ML ORAL.SUSP PO (20:35)
[2023-02-28 20:41] LABS: Glucose, Whole Blood 118 mg/dL (60-115)
[2023-02-28 22:00] VITALS: BP 149/77; PULSE 100; RESP 16; TEMP 36.4; O2SAT 97
[2023-02-28] MEDS: traZODone HCL 50 MG TABLET 150 MG PO (22:39)
[2023-02-28] MEDS: Prazosin HCL 1 MG CAPSULE 2 MG PO (22:39)
[2023-02-28] MEDS: metFORMIN HCl ER 500 MG TAB.ER.24H PO (22:39)
[2023-02-28] MEDS: HaloperidoL 5 MG TABLET 15 MG PO (22:40)
[2023-03-01 07:25] VITALS: BP 128/80; PULSE 96; RESP 16; TEMP 36.2; O2SAT 99
[2023-03-01 07:52] LABS: Glucose, Whole Blood 113 mg/dL (60-115)
[2023-03-01] MEDS: Venlafaxine HCl ER 150 MG CAP.ER.24H PO (08:18)
[2023-03-01] MEDS: Multivitamin TABLET 1 TAB PO (08:18)
[2023-03-01] MEDS: Sertraline HCL 100 MG TABLET PO (08:19)
[2023-03-01] MEDS: amLODIPine Besylate 2.5 MG TABLET 7.5 MG PO (08:19)
[2023-03-01] MEDS: Fluticasone Propionate Nasal 16 GM SPRAY 1 SPRAY NOSTRIL-B (08:19)
[2023-03-01] MEDS: Loratadine 10 MG TABLET PO (08:19)
[2023-03-01] MEDS: Lithium Carbonate ER 300 MG TABLET.ER 600 MG PO ×2 (08:19→23:02)
[2023-03-01] MEDS: Gabapentin 400 MG CAPSULE PO ×3 (08:19→23:02)
[2023-03-01] MEDS: Omeprazole 20 MG CAPSULE.DR PO (08:19)
[2023-03-01] MEDS: Docusate Sodium 100 MG CAPSULE PO (08:19)
[2023-03-01] MEDS: HaloperidoL 5 MG TABLET PO (08:19)
[2023-03-01] MEDS: Benztropine Mesylate 0.5 MG TABLET PO ×2 (08:19→23:02)
[2023-03-01 12:09] LABS: Glucose, Whole Blood 104 mg/dL (60-115)
--- NOTE | 2023-03-01 13:30 | P.PNPSI_ITS ---
Subjective Subjective Date of Service: 03/01/23 Reason For Visit: Psych Interim History: calm, cooperative. 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 no complaints or requests. per staff, visible, eating. attending groups. POC QID, 112, 87, 105, 118. very bright, social, hyperverbal. Mental Status Exam Mental Status Exam Narrative: Appearance: wearing casual clothing, good hygiene, in NAD Psychomotor: no PMA/PMR Speech: clear, nml rate. nml loudness, incr amount. TP: linear, logical TC: delusional about having been in , [employer], engaged Mood: not assessed Affect: flexible, normo-intense, non-labile SI: none expressed HI: none expressed VH/AH: none expressed Insight/judgment: impaired x 2 Diagnostics Vital Signs (24Hr): Vital Signs - 24 hr 02/28/23 22:00 03/01/23 07:25 Temperature 97.5 F 97.2 F Pulse Rate 100 96 Respiratory Rate 16 16 Blood Pressure 149/77 H 128/80 Pulse Oximetry 97 99 Oxygen Delivery Method Room Air Room Air BMI result Body Mass Index 40.2 Labs 02/28/23 08:44 Labs: Laboratory Results - last 48 hr 02/28/23 02/28/23 02/28/23 07:39 08:44 12:54 Sodium 139 Potassium 4.3 Chloride 104 Carbon Dioxide 30 H Anion Gap 9 L BUN 20 H Creatinine 1.02 Estim Creat Clear Calc 128.5 Estimated GFR > 60 POC Glucose 112 87 Fasting Glucose 99 Calcium 9.7 Total Bilirubin 0.3 AST 36 ALT 22 Alkaline Phosphatase 50 Total Protein 7.3 Albumin 4.3 Triglycerides 118 Cholesterol 155 LDL Cholesterol, Calc 89 HDL Cholesterol 43 02/28/23 02/28/23 03/01/23 17:19 20:36 07:41 Sodium Potassium Chloride Carbon Dioxide Anion Gap BUN Creatinine Estim Creat Clear Calc Estimated GFR POC Glucose 105 118 H 113 Fasting Glucose Calcium Total Bilirubin AST ALT Alkaline Phosphatase Total Protein Albumin Triglycerides Cholesterol LDL Cholesterol, Calc HDL Cholesterol 03/01/23 12:04 Sodium Potassium Chloride Carbon Dioxide Anion Gap BUN Creatinine Estim Creat Clear Calc Estimated GFR POC Glucose 104 Fasting Glucose Calcium Total Bilirubin AST ALT Alkaline Phosphatase Total Protein Albumin Triglycerides Cholesterol LDL Cholesterol, Calc HDL Cholesterol Medications Medications Current Medications Acetaminophen (Acetaminophen 325 Mg Tablet) 650 mg PO Q6H PRN PRN Reason: Headache/Pain Mild Scale (1-3) Last Admin: 02/28/23 09:18 Dose: 650 mg Al Hydroxide/Mg Hydroxide (Magnesium Hydrox/Alum Hydrox 30 Ml Oral.Susp) 30 ml PO Q6H PRN PRN Reason: Heartburn/Nausea Last Admin: 02/28/23 20:35 Dose: 30 ml Amlodipine Besylate (Amlodipine Besylate 2.5 Mg Tablet) 7.5 mg PO DAILY [facility]; Protocol Last Admin: 03/01/23 08:19 Dose: 7.5 mg Benztropine Mesylate (Benztropine Mesylate 0.5 Mg Tablet) 0.5 mg PO BID [facility] Last Admin: 03/01/23 08:19 Dose: 0.5 mg Capsaicin (Capsaicin 0.025% Cream 60 Gm Tube) 1 appl TOPICAL TID PRN; Protocol PRN Reason: Pain, Moderate(Pain Scale 4-6) Last Admin: 02/28/23 09:19 Dose: 1 appl Dextrose (Dextrose 50 % 25 Gm/50 Ml Syringe) 25 gm IVPUSH Q15M PRN; Protocol PRN Reason: per Hypoglycemia Standing Ord. Docusate Sodium (Docusate Sodium 100 Mg Capsule) 100 mg PO DAILY [facility] Last Admin: 03/01/23 08:19 Dose: 100 mg Ferrous Sulfate (Ferrous Sulfate 324 Mg Tablet.Dr) 324 mg PO Q48H [facility] Last Admin: 02/27/23 23:06 Dose: 324 mg Fluticasone Propionate (Fluticasone Propionate Nasal 16 Gm [place]) 1 spray NOSTRIL-B DAILY [facility] Last Admin: 03/01/23 08:19 Dose: 1 spray Gabapentin (Gabapentin 400 Mg Capsule) 400 mg PO TID [facility] Last Admin: 03/01/23 08:19 Dose: 400 mg Glucose (Glucose Gel 15 Gm Gel..Gram.) 15 gm PO Q15M PRN; Protocol PRN Reason: per Hypoglycemia Standing Ord. Haloperidol (Haloperidol 5 Mg Tablet) 5 mg PO DAILY [facility] Last Admin: 03/01/23 08:19 Dose: 5 mg Haloperidol (Haloperidol 5 Mg Tablet) 15 mg PO BEDTIME [facility] Last Admin: 02/28/23 22:40 Dose: 15 mg Hydroxyzine HCl (Hydroxyzine Hcl 25 Mg Tablet) 25 mg PO Q6H PRN PRN Reason: Anxiety Last Admin: 02/28/23 13:24 Dose: 25 mg Hydroxyzine HCl (Hydroxyzine Hcl 25 Mg Tablet) 25 mg PO BID PRN PRN Reason: Anxiety Last Admin: 02/28/23 09:20 Dose: 25 mg Insulin Human Lispro (Insulin Lispro 100 Unit/Ml 3 Ml Vial) 0 unit SUBCUT QIDACHS [facility]; Protocol Last Admin: 03/01/23 12:06 Dose: Not Given [place] Carbonate ([place] Carbonate Er 300 Mg Tablet.Er) 600 mg PO BID [facility] Last Admin: 03/01/23 08:19 Dose: 600 mg Loratadine (Loratadine 10 Mg Tablet) 10 mg PO DAILY [facility] Last Admin: 03/01/23 08:19 Dose: 10 mg Magnesium Hydroxide (Milk Of Magnesia 30 Ml Oral.Susp) 30 ml PO DAILY PRN PRN Reason: Constipation Metformin HCl (Metformin Hcl Er 500 Mg Tab.Er.24h) 500 mg PO BEDTIME [facility] Last Admin: 02/28/23 22:39 Dose: 500 mg Multivitamins/Vitamin C (Multivitamin Tablet) 1 tab PO DAILY [facility] Last Admin: 03/01/23 08:18 Dose: 1 tab Omeprazole (Omeprazole 20 Mg Capsule.Dr) 20 mg PO DAILY [facility] Last Admin: 03/01/23 08:19 Dose: 20 mg Prazosin HCl (Prazosin Hcl 1 Mg Capsule) 2 mg PO BEDTIME [facility]; Protocol Last Admin: 02/28/23 22:39 Dose: 2 mg Sertraline HCl (Sertraline Hcl 100 Mg Tablet) 100 mg PO DAILY [facility] Last Admin: 03/01/23 08:19 Dose: 100 mg Trazodone HCl (Trazodone Hcl 50 Mg Tablet) 50 mg PO BEDTIME MRX1 PRN PRN Reason: Insomnia Last Admin: 02/27/23 20:45 Dose: 50 mg Trazodone HCl (Trazodone Hcl 50 Mg Tablet) 150 mg PO BEDTIME [facility] Last Admin: 02/28/23 22:39 Dose: 150 mg Venlafaxine HCl (Venlafaxine Hcl Er 150 Mg Cap.Er.24h) 150 mg PO DAILY [facility] Last Admin: 03/01/23 08:18 Dose: 150 mg Allergies Allergies Allergy/AdvReac Type Severity Reaction Status Date / Time lisinopril Allergy Unknown Cough Verified 12/15/22 18:44 clonidine AdvReac Unknown Unknown Verified 11/19/22 16:28 Assessment & Plan Assessment & Plan (1) Schizoaffective disorder: Status: Acute Code(s): F25.9 - Schizoaffective disorder, unspecified Plan 02/28: restart home medications regimen. 03/01: appears manic. check lithium level in 5 days. continue current mgmt. Reason for continued inpatient stay Substantial Risk for: inability to function and rapid decompensation Time Spent With Patient Time: Total time managing care of this patient today __25__ minutes.
[2023-03-01] MEDS: Acetaminophen 325 MG TABLET 650 MG PO (14:38)
[2023-03-01 16:52] LABS: Glucose, Whole Blood 145 mg/dL (60-115)
[2023-03-01] MEDS: Ondansetron ODT 4 MG TAB.RAPDIS TRANSLINGU (17:31)
--- NOTE | 2023-03-01 18:32 | PC.NURSE ---
Addendum entered by Kandi Mcnulty RN 03/01/23 18:33: Pt retracted 3-day notice. Pt a CV. Original Note: Pt signed 3-day. Up on 03/07.
[2023-03-01 20:48] LABS: Glucose, Whole Blood 96 mg/dL (60-115)
[2023-03-01 20:55] VITALS: BP 156/72; PULSE 100; RESP 20; TEMP 36.6; O2SAT 97
[2023-03-01 22:59] LABS: Influenza A PCR NEGATIVE (Negative); Influenza B PCR NEGATIVE (Negative); Resp Syncy Virus RNA Qual PCR NEGATIVE (Negative); SARS COV2 PCR INHOUSE NEGATIVE (Negative)
[2023-03-01] MEDS: metFORMIN HCl ER 500 MG TAB.ER.24H PO (23:02)
[2023-03-01] MEDS: Prazosin HCL 1 MG CAPSULE 2 MG PO (23:02)
[2023-03-01] MEDS: Ferrous Sulfate 324 MG TABLET.DR PO (23:02)
[2023-03-01] MEDS: HaloperidoL 5 MG TABLET 15 MG PO (23:02)
[2023-03-01] MEDS: traZODone HCL 50 MG TABLET 150 MG PO (23:03)
[2023-03-02] MEDS: Throat Lozenge, Medicated LOZENGE 1 LOZENGE MUCOUS MEM ×2 (05:14→20:40)
[2023-03-02 06:00] VITALS: BP 158/65; PULSE 94; RESP 16; TEMP 36.8; O2SAT 93
[2023-03-02 07:00] VITALS: BMI 43.4
[2023-03-02 08:56] LABS: Glucose, Whole Blood 95 mg/dL (60-115)
[2023-03-02] MEDS: Lithium Carbonate ER 300 MG TABLET.ER 600 MG PO ×2 (11:08→20:40)
[2023-03-02] MEDS: Docusate Sodium 100 MG CAPSULE PO (11:08)
[2023-03-02] MEDS: Gabapentin 400 MG CAPSULE PO ×3 (11:08→20:40)
[2023-03-02] MEDS: HaloperidoL 5 MG TABLET PO (11:09)
[2023-03-02] MEDS: Multivitamin TABLET 1 TAB PO (11:09)
[2023-03-02] MEDS: Sertraline HCL 100 MG TABLET PO (11:09)
[2023-03-02] MEDS: Omeprazole 20 MG CAPSULE.DR PO (11:09)
[2023-03-02] MEDS: Benztropine Mesylate 0.5 MG TABLET PO ×2 (11:09→20:40)
[2023-03-02] MEDS: amLODIPine Besylate 2.5 MG TABLET 7.5 MG PO (11:09)
[2023-03-02] MEDS: Loratadine 10 MG TABLET PO (11:09)
[2023-03-02] MEDS: Venlafaxine HCl ER 150 MG CAP.ER.24H PO (11:09)
[2023-03-02] MEDS: Fluticasone Propionate Nasal 16 GM SPRAY 1 SPRAY NOSTRIL-B (11:18)
[2023-03-02 12:38] LABS: Glucose, Whole Blood 102 mg/dL (60-115)
--- NOTE | 2023-03-02 14:15 | HO.PSYCHPN ---
Subjective Subjective Date of Service: 03/02/23 Reason For Visit: Psych Interim History: delusional, exuberant. c/o diarrhea and vomiting for past 5 days, now blood in sputum, feeling unwell. c/o bad dreams, agrees to increase prazosin to 4 mg QHS. per staff, euphoric, talkative, social. unwitnessed vomiting x 2. c/o feling sick, appears well. URI viral testing NEG. Mental Status Exam Mental Status Exam Narrative: Appearance: wearing casual clothing, good hygiene, in NAD Psychomotor: no PMA/PMR Speech: clear, nml rate. nml loudness, incr amount. TP: linear TC: delusional about having been in . paranoia re physical health. Mood: not assessed Affect: flexible, normo-intense, non-labile SI: none expressed HI: none expressed VH/AH: none expressed Insight/judgment: impaired x 2 Diagnostics Vital Signs (24Hr): Vital Signs - 24 hr 03/01/23 20:55 03/02/23 06:00 Temperature 97.9 F 98.2 F Pulse Rate 100 94 Respiratory Rate 20 16 Blood Pressure 156/72 H 158/65 H Pulse Oximetry 97 93 Oxygen Delivery Method Room Air Room Air BMI result Body Mass Index 40.2 Labs 02/28/23 08:44 Labs: Laboratory Results - last 48 hr 02/28/23 02/28/23 03/01/23 17:19 20:36 07:41 POC Glucose 105 118 H 113 Influenza Type A (PCR) Influenza Type B (PCR) RSV RNA Qual (PCR) SARS-CoV-2 RNA (RT-PCR) 03/01/23 03/01/23 03/01/23 12:04 16:47 20:43 POC Glucose 104 145 H 96 Influenza Type A (PCR) Influenza Type B (PCR) RSV RNA Qual (PCR) SARS-CoV-2 RNA (RT-PCR) 03/01/23 03/02/23 03/02/23 22:14 08:12 12:33 POC Glucose 95 102 Influenza Type A (PCR) NEGATIVE Influenza Type B (PCR) NEGATIVE RSV RNA Qual (PCR) NEGATIVE SARS-CoV-2 RNA (RT-PCR) NEGATIVE Medications Medications Current Medications Acetaminophen (Acetaminophen 325 Mg Tablet) 650 mg PO Q6H PRN PRN Reason: Headache/Pain Mild Scale (1-3) Last Admin: 03/01/23 14:38 Dose: 650 mg Al Hydroxide/Mg Hydroxide (Magnesium Hydrox/Alum Hydrox 30 Ml Oral.Susp) 30 ml PO Q6H PRN PRN Reason: Heartburn/Nausea Last Admin: 02/28/23 20:35 Dose: 30 ml Amlodipine Besylate (Amlodipine Besylate 2.5 Mg Tablet) 7.5 mg PO DAILY [facility]; Protocol Last Admin: 03/02/23 11:09 Dose: 7.5 mg Benzocaine (Throat Lozenge, Medicated Lozenge) 1 lozenge MUCOUS MEM Q2H PRN PRN Reason: Sore Throat Last Admin: 03/02/23 05:14 Dose: 1 lozenge Benztropine Mesylate (Benztropine Mesylate 0.5 Mg Tablet) 0.5 mg PO BID [facility] Last Admin: 03/02/23 11:09 Dose: 0.5 mg Capsaicin (Capsaicin 0.025% Cream 60 Gm Tube) 1 appl TOPICAL TID PRN; Protocol PRN Reason: Pain, Moderate(Pain Scale 4-6) Last Admin: 02/28/23 09:19 Dose: 1 appl Dextrose (Dextrose 50 % 25 Gm/50 Ml Syringe) 25 gm IVPUSH Q15M PRN; Protocol PRN Reason: per Hypoglycemia Standing Ord. Docusate Sodium (Docusate Sodium 100 Mg Capsule) 100 mg PO DAILY [facility] Last Admin: 03/02/23 11:08 Dose: 100 mg Ferrous Sulfate (Ferrous Sulfate 324 Mg Tablet.Dr) 324 mg PO Q48H [facility] Last Admin: 03/01/23 23:02 Dose: 324 mg Fluticasone Propionate (Fluticasone Propionate Nasal 16 Gm [place]) 1 spray NOSTRIL-B DAILY [facility] Last Admin: 03/02/23 11:18 Dose: 1 spray Gabapentin (Gabapentin 400 Mg Capsule) 400 mg PO TID [facility] Last Admin: 03/02/23 14:11 Dose: 400 mg Glucose (Glucose Gel 15 Gm Gel..Gram.) 15 gm PO Q15M PRN; Protocol PRN Reason: per Hypoglycemia Standing Ord. Haloperidol (Haloperidol 5 Mg Tablet) 5 mg PO DAILY [facility] Last Admin: 03/02/23 11:09 Dose: 5 mg Haloperidol (Haloperidol 5 Mg Tablet) 15 mg PO BEDTIME [facility] Last Admin: 03/01/23 23:02 Dose: 15 mg Hydroxyzine HCl (Hydroxyzine Hcl 50 Mg Tablet) 50 mg PO Q6H PRN PRN Reason: Anxiety Insulin Human Lispro (Insulin Lispro 100 Unit/Ml 3 Ml Vial) 0 unit SUBCUT QIDACHS [facility]; Protocol Last Admin: 03/02/23 12:39 Dose: Not Given [place] Carbonate (Iron Post Carbonate Er 300 Mg Tablet.Er) 600 mg PO BID [facility] Last Admin: 03/02/23 11:08 Dose: 600 mg Loratadine (Loratadine 10 Mg Tablet) 10 mg PO DAILY [facility] Last Admin: 03/02/23 11:09 Dose: 10 mg Magnesium Hydroxide (Milk Of Magnesia 30 Ml Oral.Susp) 30 ml PO DAILY PRN PRN Reason: Constipation Metformin HCl (Metformin Hcl Er 500 Mg Tab.Er.24h) 500 mg PO BEDTIME [facility] Last Admin: 03/01/23 23:02 Dose: 500 mg Multivitamins/Vitamin C (Multivitamin Tablet) 1 tab PO DAILY [facility] Last Admin: 03/02/23 11:09 Dose: 1 tab Omeprazole (Omeprazole 20 Mg Capsule.Dr) 20 mg PO DAILY [facility] Last Admin: 03/02/23 11:09 Dose: 20 mg Ondansetron HCl (Ondansetron Odt 4 Mg Tab.Rapdis) 4 mg TRANSLINGU Q6H PRN PRN Reason: Nausea Last Admin: 03/01/23 17:31 Dose: 4 mg Ondansetron HCl (Ondansetron Odt 4 Mg Tab.Rapdis) 4 mg TRANSLINGU Q8H PRN PRN Reason: Nausea and Vomiting Prazosin HCl (Prazosin Hcl 1 Mg Capsule) 4 mg PO BEDTIME [facility]; Protocol Sertraline HCl (Sertraline Hcl 100 Mg Tablet) 100 mg PO DAILY [facility] Last Admin: 03/02/23 11:09 Dose: 100 mg Trazodone HCl (Trazodone Hcl 50 Mg Tablet) 50 mg PO BEDTIME MRX1 PRN PRN Reason: Insomnia Last Admin: 02/27/23 20:45 Dose: 50 mg Trazodone HCl (Trazodone Hcl 50 Mg Tablet) 150 mg PO BEDTIME [facility] Last Admin: 03/01/23 23:03 Dose: 150 mg Venlafaxine HCl (Venlafaxine Hcl Er 150 Mg Cap.Er.24h) 150 mg PO DAILY [facility] Last Admin: 03/02/23 11:09 Dose: 150 mg Allergies Allergies Allergy/AdvReac Type Severity Reaction Status Date / Time lisinopril Allergy Unknown Cough Verified 12/15/22 18:44 clonidine AdvReac Unknown Unknown Verified 11/19/22 16:28 Assessment & Plan Assessment & Plan (1) Schizoaffective disorder: Status: Acute Code(s): F25.9 - Schizoaffective disorder, unspecified Plan 02/28: restart home medications regimen. 03/01: appears manic. check lithium level in 5 days. continue current mgmt. 03/02: c/o URI Sx, also vomiting and diarrhea for 5 days. now says blood in vomit for past 2 days. c/o nightmares, prazosin increased to 4 mg QHS. checking labs tonight. Reason for continued inpatient stay Substantial Risk for: inability to function and rapid decompensation Time Spent With Patient Time: Total time managing care of this patient today _35___ minutes.
[2023-03-02] MEDS: Pseudoephedrine HCL 30 MG TABLET PO (15:45)
[2023-03-02 17:18] LABS: Glucose, Whole Blood 97 mg/dL (60-115)
[2023-03-02 19:59] LABS: Hematocrit 43.1 % (42.0-52.0); Hemoglobin 13.7 g/dl (14.0-18.0); Mean Corpuscular HGB Conc 31.8 g/dl (31.0-36.0); Mean Corpuscular Hemoglobin 27.8 pg (27.0-33.0); Mean Corpuscular Volume 87.4 fL (80.0-98.0); Mean Platelet Volume 10.2 fL (9.4-12.4); Platelet Count 267 X10*3/uL (160-400); Red Blood Count 4.93 X10*6/uL (4.60-5.80); Red Cell Distribution Width 12.8 % (11.0-16.0); White Blood Count 8.7 X10*3/uL (4.8-10.8)
[2023-03-02 20:05] LABS: Lithium 0.37 mmol/L (0.60-1.20)
[2023-03-02 20:10] LABS: Anion Gap 12 (12-20); Blood Urea Nitrogen 17 mg/dL (9-16); Calcium 9.8 mg/dL (8.4-10.2); Carbon Dioxide 27 mmol/L (22-29); Chloride 104 mmol/L (96-108); Creatinine Clr Calc Pharmacy 161.8; Estimated Glomerular Filt Rate > 60; Glucose Random 84 mg/dL (60-115); Potassium 4.3 mmol/L (3.3-5.1); Sodium 139 mmol/L (135-145)
[2023-03-02 20:24] LABS: SLIDE REVIEW MANUAL DIFF
[2023-03-02 20:31] LABS: Glucose, Whole Blood 120 mg/dL (60-115)
[2023-03-02] MEDS: traZODone HCL 50 MG TABLET PO (20:31)
[2023-03-02] MEDS: Acetaminophen 325 MG TABLET 650 MG PO (20:31)
[2023-03-02] MEDS: traZODone HCL 50 MG TABLET 150 MG PO (20:31)
[2023-03-02] MEDS: HaloperidoL 5 MG TABLET 15 MG PO (20:31)
[2023-03-02] MEDS: Prazosin HCL 1 MG CAPSULE 4 MG PO (20:39)
[2023-03-02] MEDS: Ondansetron ODT 4 MG TAB.RAPDIS TRANSLINGU (20:40)
[2023-03-02] MEDS: metFORMIN HCl ER 500 MG TAB.ER.24H PO (20:40)
[2023-03-02 20:47] VITALS: BP 155/91; PULSE 89; RESP 18; TEMP 36.7; O2SAT 96
[2023-03-02 20:47] LABS: Atypical Lymph Absolute Manual 0.4 x10*3/uL; Atypical Lymphs Percent Manual 5 % (0-6); Band Neutrophils Percent 1 % (3-5); Basophils Abs Manual 0.1 X10*3/uL (0.0-0.2); Basophils Percent Manual 1 % (0-2); Eosinophils Absolute Manual 0.3 X10*3/uL (0.0-0.4); Eosinophils Percent Manual 3 % (0-4); Lymphocytes Absolute Manual 1.8 X10*3/uL (1.2-4.9); Lymphocytes Percent Manual 21 % (20-40); Monocytes Absolute Manual 0.8 X10*3/uL (0.1-1.2); Monocytes Percent Manual 9 % (2-11); Neutrophils Absolute Manual 5.3 X10*3/uL (2.0-8.3); Neutrophils Percent Manual 60 % (45-73)
[2023-03-02 20:49] LABS: Platelet Estimate NORMAL (NORMAL); Platelet Morphology Comment NORMAL; RBC Morphology NORMAL
[2023-03-02] MEDS: Milk of Magnesia 30 ML ORAL.SUSP PO (21:04)
[2023-03-03] MEDS: Throat Lozenge, Medicated LOZENGE 1 LOZENGE MUCOUS MEM ×2 (03:43→07:28)
[2023-03-03] MEDS: Ondansetron ODT 4 MG TAB.RAPDIS TRANSLINGU (03:43)
[2023-03-03] MEDS: Acetaminophen 325 MG TABLET 650 MG PO ×2 (03:57→14:14)
[2023-03-03] MEDS: Omeprazole 20 MG CAPSULE.DR PO (07:28)
[2023-03-03 07:30] VITALS: BP 141/84; PULSE 86; RESP 18; TEMP 36.3; O2SAT 97
[2023-03-03 08:17] LABS: Glucose, Whole Blood 91 mg/dL (60-115)
--- NOTE | 2023-03-03 09:06 | HO.PM.IMCN ---
History of Present Illness Data of Consult Service Date: 03/03/23 Primary Care Provider: Unknown Physician HPI 32-year-old male with a PMH significant for HTN, GERD, [id number] diabetes type 2, and schizophrenia?who is admitted to M3 psychiatry unit from [facility] for decompendsated Schizophrenia, SI . Today, 03/03/2023 pt is reporting nausea, vomiting, loose stools x24 hours. States he has been unable to keep most solids down however can keep cookies and soup down. Last emesis 0300 this morning, states he was given medication which did alleviate his nausea/vomiting. On exam patient is denying active nausea, reports it comes in waves. Patient smokes THC daily, last use apprixmately 3 days ago. Denies fever, chills, diaphoresis, abdominal pain, hematemesis, hematochezia, melena, recnet new medications . Review of Systems Review of Systems: Yes all other systems are reviewed and are negative [facility] Medical History (Updated 02/28/23 @ 10:58 by Roberto Peña MD) Medical clearance for psychiatric admission Schizoaffective disorder Diabetes HTN (hypertension) Social History Household Members: Other Housing: Apartment Do you presently have visiting nurse or other home services: Yes Unable to assess alcohol history related to: Refusing to respond Patient Tobacco Use Status: Never used Tobacco e-Cigarette/Vaping Use: Never Used Second Hand Smoke Exposure: No Use of substances other than those prescribed or required for medical reasons: No Currently Displaying Signs/Symptoms of Drug Intoxication Withdrawal: No Have you been hit, kicked, punched, or otherwise hurt by someone within the past year? If so, by whom?: No Do you feel safe in your current relationship?: No Current Relationship Is there a partner from a previous relationship who is making you feel unsafe now?: No Are you made to feel afraid or neglected: No Spiritual Healthcare Practices: none identified Amish Healthcare Practices: none identified Cultural Healthcare Practices: none identified Advance Directives: No Advance Directives Information Provided: No Do you have thoughts of harming others: None Do you have a plan to hurt others: No Plan Recently lost weight without trying: No How much weight loss: Not applicable Eating poorly because of decreased appetite: No Nutrition screen score: 0 Nutrition Risks: No Nutritional Risk Poor oral hygiene: No service: No Sexual orientation: Straight/Heterosexual Meds Allergies Allergy/AdvReac Type Severity Reaction Status Date / Time lisinopril Allergy Unknown Cough Verified 12/15/22 18:44 clonidine AdvReac Unknown Unknown Verified 11/19/22 16:28 Active Medications: Current Medications Acetaminophen (Acetaminophen 325 Mg Tablet) 650 mg PO Q6H PRN PRN Reason: Headache/Pain Mild Scale (1-3) Last Admin: 03/03/23 03:57 Dose: 650 mg Al Hydroxide/Mg Hydroxide (Magnesium Hydrox/Alum Hydrox 30 Ml Oral.Susp) 30 ml PO Q6H PRN PRN Reason: Heartburn/Nausea Last Admin: 02/28/23 20:35 Dose: 30 ml Amlodipine Besylate (Amlodipine Besylate 2.5 Mg Tablet) 7.5 mg PO DAILY [facility]; Protocol Last Admin: 03/02/23 11:09 Dose: 7.5 mg Benzocaine (Throat Lozenge, Medicated Lozenge) 1 lozenge MUCOUS MEM Q2H PRN PRN Reason: Sore Throat Last Admin: 03/03/23 07:28 Dose: 1 lozenge Benztropine Mesylate (Benztropine Mesylate 0.5 Mg Tablet) 0.5 mg PO BID [facility] Last Admin: 03/02/23 20:40 Dose: 0.5 mg Capsaicin (Capsaicin 0.025% Cream 60 Gm Tube) 1 appl TOPICAL TID PRN; Protocol PRN Reason: Pain, Moderate(Pain Scale 4-6) Last Admin: 02/28/23 09:19 Dose: 1 appl Dextrose (Dextrose 50 % 25 Gm/50 Ml Syringe) 25 gm IVPUSH Q15M PRN; Protocol PRN Reason: per Hypoglycemia Standing Ord. Docusate Sodium (Docusate Sodium 100 Mg Capsule) 100 mg PO DAILY [facility] Last Admin: 03/02/23 11:08 Dose: 100 mg Ferrous Sulfate (Ferrous Sulfate 324 Mg Tablet.Dr) 324 mg PO Q48H [facility] Last Admin: 03/01/23 23:02 Dose: 324 mg Fluticasone Propionate (Fluticasone Propionate Nasal 16 Gm [place]) 1 spray NOSTRIL-B DAILY [facility] Last Admin: 03/02/23 11:18 Dose: 1 spray Gabapentin (Gabapentin 400 Mg Capsule) 400 mg PO TID [facility] Last Admin: 03/02/23 20:40 Dose: 400 mg Glucose (Glucose Gel 15 Gm Gel..Gram.) 15 gm PO Q15M PRN; Protocol PRN Reason: per Hypoglycemia Standing Ord. Haloperidol (Haloperidol 5 Mg Tablet) 5 mg PO DAILY [facility] Last Admin: 03/02/23 11:09 Dose: 5 mg Haloperidol (Haloperidol 5 Mg Tablet) 15 mg PO BEDTIME [facility] Last Admin: 03/02/23 20:31 Dose: 15 mg Hydroxyzine HCl (Hydroxyzine Hcl 50 Mg Tablet) 50 mg PO Q6H PRN PRN Reason: Anxiety Insulin Human Lispro (Insulin Lispro 100 Unit/Ml 3 Ml Vial) 0 unit SUBCUT QIDACHS [facility]; Protocol Last Admin: 03/02/23 20:40 Dose: Not Given [place] Carbonate ([place] Carbonate Er 300 Mg Tablet.Er) 600 mg PO BID [facility] Last Admin: 03/02/23 20:40 Dose: 600 mg Loratadine (Loratadine 10 Mg Tablet) 10 mg PO DAILY [facility] Last Admin: 03/02/23 11:09 Dose: 10 mg Magnesium Hydroxide (Milk Of Magnesia 30 Ml Oral.Susp) 30 ml PO DAILY PRN PRN Reason: Constipation Last Admin: 03/02/23 21:04 Dose: 30 ml Metformin HCl (Metformin Hcl Er 500 Mg Tab.Er.24h) 500 mg PO BEDTIME [facility] Last Admin: 03/02/23 20:40 Dose: 500 mg Multivitamins/Vitamin C (Multivitamin Tablet) 1 tab PO DAILY [facility] Last Admin: 03/02/23 11:09 Dose: 1 tab Omeprazole (Omeprazole 20 Mg Capsule.Dr) 20 mg PO DAILY@0630 [facility] Last Admin: 03/03/23 07:28 Dose: 20 mg Ondansetron HCl (Ondansetron Odt 4 Mg Tab.Rapdis) 4 mg TRANSLINGU Q6H PRN PRN Reason: Nausea Last Admin: 03/03/23 03:43 Dose: 4 mg Ondansetron HCl (Ondansetron Odt 4 Mg Tab.Rapdis) 4 mg TRANSLINGU Q8H PRN PRN Reason: Nausea and Vomiting Prazosin HCl (Prazosin Hcl 1 Mg Capsule) 4 mg PO BEDTIME [facility]; Protocol Last Admin: 03/02/23 20:39 Dose: 4 mg Pseudoephedrine HCl (Pseudoephedrine Hcl 30 Mg Tablet) 30 mg PO Q6H PRN PRN Reason: nasal congestion Last Admin: 03/02/23 15:45 Dose: 30 mg Sertraline HCl (Sertraline Hcl 100 Mg Tablet) 100 mg PO DAILY [facility] Last Admin: 03/02/23 11:09 Dose: 100 mg Trazodone HCl (Trazodone Hcl 50 Mg Tablet) 50 mg PO BEDTIME MRX1 PRN PRN Reason: Insomnia Last Admin: 03/02/23 20:31 Dose: 50 mg Trazodone HCl (Trazodone Hcl 50 Mg Tablet) 150 mg PO BEDTIME [facility] Last Admin: 03/02/23 20:31 Dose: 150 mg Venlafaxine HCl (Venlafaxine Hcl Er 150 Mg Cap.Er.24h) 150 mg PO DAILY [facility] Last Admin: 03/02/23 11:09 Dose: 150 mg Home Medications Medication Instructions Recorded Confirmed Last Taken Type docusate sodium 100 mg capsule 100 mg PO DAILY 08/02/22 02/27/23 08/02/22 08:58 History pantoprazole 40 mg tablet,delayed 40 mg PO DAILY 08/02/22 02/27/23 08/02/22 05:26 History release amlodipine 2.5 mg tablet 7.5 mg PO DAILY 02/04/23 02/27/23 Unknown History benztropine 0.5 mg tablet 0.5 mg PO BID Reaction 02/04/23 02/27/23 Unknown History gabapentin 100 mg capsule 400 mg PO TID 02/04/23 02/27/23 Unknown History (Neurontin) metformin 500 mg tablet,extended 500 mg PO QPM 02/04/23 02/27/23 Unknown History release 24 hr sertraline 100 mg tablet (Zoloft) 100 mg PO DAILY 02/04/23 02/27/23 Unknown History trazodone 50 mg tablet 150 mg PO BEDTIME Insomnia 02/04/23 02/27/23 Unknown History venlafaxine 150 mg 150 mg PO DAILY 02/04/23 02/27/23 Unknown History capsule,extended release 24 hr (Effexor XR) Physical Exam Vital Signs and Narrative: Vital Signs: Last Vital Signs Temp 97.4 F 03/03/23 07:30 Pulse 86 03/03/23 07:30 Resp 18 03/03/23 07:30 BP 141/84 H 03/03/23 07:30 Pulse Ox 97 03/03/23 07:30 O2 Del Method Room Air 03/03/23 07:30 BMI result Body Mass Index 43.4 Const: Other: Constitutional: Well appearing, 32 year old male, NAD HEENT: No lymphadenopathy, no scleral icterae, no JVD Cardiovascular: S1/S2 heard, No MRG Respiratory: Lung sounds CTA bilaterally Gastrointestinal: Normal BS throughout, neg murphys. : Deferred Neuro: No FND, moving all 4 extremities spontaneously Psych: Calm/cooperative Results Labs 03/02/23 19:51 03/02/23 19:51 Labs: Laboratory Results - last 24 hr 03/02/23 03/02/23 03/02/23 12:33 17:14 19:51 MCV 87.4 MCH 27.8 MCHC 31.8 RDW 12.8 Plt Count 267 MPV 10.2 Immature Gran % (Auto) Cancelled Neut % (Auto) Cancelled Lymph % (Auto) Cancelled [place] % (Auto) Cancelled Eos % (Auto) Cancelled Baso % (Auto) Cancelled Lymph # (Auto) Cancelled [place] # (Auto) Cancelled Eos # (Auto) Cancelled Baso # (Auto) Cancelled Abs Immat Gran (auto) Cancelled Absolute Neuts (auto) Cancelled Absolute Nucleated RBC 0.000 Nucleated RBC % (auto) 0.0 Neutrophils % (Manual) 60 Band Neutrophils % 1 L Lymphocytes % (Manual) 21 Atypical Lymphs % (Man) 5 Monocytes % (Manual) 9 Eosinophils % (Manual) 3 Basophils % (Manual) 1 Abs Neuts (Manual) 5.3 Lymphocytes # (Manual) 1.8 Atyp Lymphs # (Manual) 0.4 Monocytes # (Manual) 0.8 Eosinophils # (Manual) 0.3 Basophils # (Manual) 0.1 Platelet Estimate NORMAL Plt Morphology Comment NORMAL RBC Morphology NORMAL Smear Tech's Comments MANUAL DIFF Anion Gap 12 Estim Creat Clear Calc 161.8 Estimated GFR > 60 POC Glucose 102 97 Random Glucose 84 Calcium 9.8 [place] 0.37 L 03/02/23 03/03/23 20:27 08:06 MCV MCH MCHC RDW Plt Count MPV Immature Gran % (Auto) Neut % (Auto) Lymph % (Auto) [place] % (Auto) Eos % (Auto) Baso % (Auto) Lymph # (Auto) [place] # (Auto) Eos # (Auto) Baso # (Auto) Abs Immat Gran (auto) Absolute Neuts (auto) Absolute Nucleated RBC Nucleated RBC % (auto) Neutrophils % (Manual) Band Neutrophils % Lymphocytes % (Manual) Atypical Lymphs % (Man) Monocytes % (Manual) Eosinophils % (Manual) Basophils % (Manual) Abs Neuts (Manual) Lymphocytes # (Manual) Atyp Lymphs # (Manual) Monocytes # (Manual) Eosinophils # (Manual) Basophils # (Manual) Platelet Estimate Plt Morphology Comment RBC Morphology Smear Tech's Comments Anion Gap Estim Creat Clear Calc Estimated GFR POC Glucose 120 H 91 Random Glucose Calcium [place] Assessment and Plan Plan Nausea/Vomiting: N/V, NBNB emesis x 24 hours w/ intermittent loose stools, no hx of fever, chills, hematemesis, melena, hematochezia. VS wnl on exam, tolerating liquids and some solids this morning. No recent new medications since admission or as outpatient. DDx: Acute gastroenteritis/CHES/Gastroparesis Plan: -will change diet to liquids- may resume reg diet if symptom improves over the next 24-48 hours -encourage PO hydration if tolerating -prn zofran, will consider transition to reglan -cbc/bmp in am 01/03/2024 -GI panel ordered DM--continue home Metformin, SSI, HTN-well controlled, continue home Amlodipine GERD- continue PPI Schizophrenia/mood desorder, managment per Psych Neuropathy: continue home gabapentin
[2023-03-03] MEDS: Docusate Sodium 100 MG CAPSULE PO (09:24)
[2023-03-03] MEDS: Multivitamin TABLET 1 TAB PO (09:25)
[2023-03-03] MEDS: amLODIPine Besylate 2.5 MG TABLET 7.5 MG PO (09:25)
[2023-03-03] MEDS: Sertraline HCL 100 MG TABLET PO (09:26)
[2023-03-03] MEDS: Lithium Carbonate ER 300 MG TABLET.ER 600 MG PO ×2 (09:26→21:39)
[2023-03-03] MEDS: Venlafaxine HCl ER 150 MG CAP.ER.24H PO (09:26)
[2023-03-03] MEDS: Loratadine 10 MG TABLET PO (09:26)
[2023-03-03] MEDS: Gabapentin 400 MG CAPSULE PO ×3 (09:26→21:40)
[2023-03-03] MEDS: Benztropine Mesylate 0.5 MG TABLET PO ×2 (09:26→21:39)
[2023-03-03] MEDS: HaloperidoL 5 MG TABLET PO (09:26)
--- NOTE | 2023-03-03 11:42 | P.EN_ITS ---
Event Note Date of Service: 03/03/23 Event Note: Patient is a 32 year old male with a PMH significant for ?HTN, [id number] diabetes type 2, GERD, bipolar disorder, and schizoaffective disorder who was seen for evaluation of nausea, vomiting, diarrhea x5 days with reported bright red blood in vomitus for the past 2 days. Patient states that he currently no longer has nausea, with last episode of vomiting last night. Patient also experiencing central and right-sided abdominal pain. Patient would not allow physical examination or palpation of area because he said it was ?way too painful?. Spoke to nursing who has yet to verify any blood in either vomitus or diarrhea. Patient says he was unable to produce any samples because the toilet would automatically flash. Patient has now been provided supplies to collect samples of both vomitus and diarrhea, but patient states that since then he has not had any repeat episodes. CBC collected with stable H&H of 13.7/43.1. Patient has been placed on a clear liquid diet and would recommend continuing until nausea/vomiting/diarrhea subs jessi. Advance diet as tolerated. Continue ondansetron p.r.n. for nausea. Will defer any imaging pending laboratory results. Of note, patient has a history being somatically oriented. Patient also complains of painful calluses on his feet, worse with walking. Also complains of painful toenails that are in need of clipping. Upon physical examination patient has mild callusing on heels bilaterally than no evidence of bunions. No evidence of lesions or diabetic foot ulcers. No cracking or maceration between toes. Toenails look well trimmed with no evidence of ingrown toenails, paronychia, or fungal infection. Patient can apply lotion to feet b.i.d. p.r.n. and recommend outpatient podiatry follow-up for any continued symptoms. Time Spent With Patient Time: Total time managing care of this patient today ____ minutes.
[2023-03-03 12:51] LABS: Glucose, Whole Blood 96 mg/dL (60-115)
[2023-03-03] MEDS: Milk of Magnesia 30 ML ORAL.SUSP PO (13:05)
--- NOTE | 2023-03-03 14:47 | P.PNPSI_ITS ---
Subjective Subjective Date of Service: 03/03/23 Reason For Visit: Psych Interim History: calm, cooperative. no n/v since yesterday. some coughing. reporting blood in stool. c/o poor sleep 2/2 nightmares, agrees to increase prazosin to 5 mg. also add colace for constipation. per staff, somatic, pleasant. will be on liquid diet until n/v resolve, per hospitalist consult. Mental Status Exam Mental Status Exam Narrative: Appearance: wearing casual clothing, good hygiene, in NAD Psychomotor: no PMA/PMR Speech: clear, nml rate. nml loudness, incr amount. TP: linear TC: paranoia re physical health. Mood: not assessed Affect: flexible, normo-intense, non-labile SI: none expressed HI: none expressed VH/AH: none expressed Insight/judgment: impaired x 2 Diagnostics Vital Signs (24Hr): Vital Signs - 24 hr 03/02/23 20:47 03/03/23 07:30 Temperature 98.1 F 97.4 F Pulse Rate 89 86 Respiratory Rate 18 18 Blood Pressure 155/91 H 141/84 H Pulse Oximetry 96 97 Oxygen Delivery Method Room Air Room Air BMI result Body Mass Index 43.4 Labs 03/02/23 19:51 03/02/23 19:51 Labs: Laboratory Results - last 48 hr 03/01/23 03/01/23 03/01/23 16:47 20:43 22:14 WBC RBC Hgb Hct MCV MCH MCHC RDW Plt Count MPV Immature Gran % (Auto) Neut % (Auto) Lymph % (Auto) [place] % (Auto) Eos % (Auto) Baso % (Auto) Lymph # (Auto) [place] # (Auto) Eos # (Auto) Baso # (Auto) Abs Immat Gran (auto) Absolute Neuts (auto) Absolute Nucleated RBC Nucleated RBC % (auto) Neutrophils % (Manual) Band Neutrophils % Lymphocytes % (Manual) Atypical Lymphs % (Man) Monocytes % (Manual) Eosinophils % (Manual) Basophils % (Manual) Abs Neuts (Manual) Lymphocytes # (Manual) Atyp Lymphs # (Manual) Monocytes # (Manual) Eosinophils # (Manual) Basophils # (Manual) Platelet Estimate Plt Morphology Comment RBC Morphology Smear Tech's Comments Sodium Potassium Chloride Carbon Dioxide Anion Gap BUN Creatinine Estim Creat Clear Calc Estimated GFR POC Glucose 145 H 96 Random Glucose Calcium [place] Influenza Type A (PCR) NEGATIVE Influenza Type B (PCR) NEGATIVE RSV RNA Qual (PCR) NEGATIVE SARS-CoV-2 RNA (RT-PCR) NEGATIVE 03/02/23 03/02/23 03/02/23 08:12 12:33 17:14 WBC RBC Hgb Hct MCV MCH MCHC RDW Plt Count MPV Immature Gran % (Auto) Neut % (Auto) Lymph % (Auto) [place] % (Auto) Eos % (Auto) Baso % (Auto) Lymph # (Auto) [place] # (Auto) Eos # (Auto) Baso # (Auto) Abs Immat Gran (auto) Absolute Neuts (auto) Absolute Nucleated RBC Nucleated RBC % (auto) Neutrophils % (Manual) Band Neutrophils % Lymphocytes % (Manual) Atypical Lymphs % (Man) Monocytes % (Manual) Eosinophils % (Manual) Basophils % (Manual) Abs Neuts (Manual) Lymphocytes # (Manual) Atyp Lymphs # (Manual) Monocytes # (Manual) Eosinophils # (Manual) Basophils # (Manual) Platelet Estimate Plt Morphology Comment RBC Morphology Smear Tech's Comments Sodium Potassium Chloride Carbon Dioxide Anion Gap BUN Creatinine Estim Creat Clear Calc Estimated GFR POC Glucose 95 102 97 Random Glucose Calcium [place] Influenza Type A (PCR) Influenza Type B (PCR) RSV RNA Qual (PCR) SARS-CoV-2 RNA (RT-PCR) 03/02/23 03/02/23 03/03/23 19:51 20:27 08:06 WBC 8.7 RBC 4.93 Hgb 13.7 L Hct 43.1 MCV 87.4 MCH 27.8 MCHC 31.8 RDW 12.8 Plt Count 267 MPV 10.2 Immature Gran % (Auto) Cancelled Neut % (Auto) Cancelled Lymph % (Auto) Cancelled [place] % (Auto) Cancelled Eos % (Auto) Cancelled Baso % (Auto) Cancelled Lymph # (Auto) Cancelled [place] # (Auto) Cancelled Eos # (Auto) Cancelled Baso # (Auto) Cancelled Abs Immat Gran (auto) Cancelled Absolute Neuts (auto) Cancelled Absolute Nucleated RBC 0.000 Nucleated RBC % (auto) 0.0 Neutrophils % (Manual) 60 Band Neutrophils % 1 L Lymphocytes % (Manual) 21 Atypical Lymphs % (Man) 5 Monocytes % (Manual) 9 Eosinophils % (Manual) 3 Basophils % (Manual) 1 Abs Neuts (Manual) 5.3 Lymphocytes # (Manual) 1.8 Atyp Lymphs # (Manual) 0.4 Monocytes # (Manual) 0.8 Eosinophils # (Manual) 0.3 Basophils # (Manual) 0.1 Platelet Estimate NORMAL Plt Morphology Comment NORMAL RBC Morphology NORMAL Smear Tech's Comments MANUAL DIFF Sodium 139 Potassium 4.3 Chloride 104 Carbon Dioxide 27 Anion Gap 12 BUN 17 H Creatinine 0.81 Estim Creat Clear Calc 161.8 Estimated GFR > 60 POC Glucose 120 H 91 Random Glucose 84 Calcium 9.8 [place] 0.37 L Influenza Type A (PCR) Influenza Type B (PCR) RSV RNA Qual (PCR) SARS-CoV-2 RNA (RT-PCR) 03/03/23 12:47 WBC RBC Hgb Hct MCV MCH MCHC RDW Plt Count MPV Immature Gran % (Auto) Neut % (Auto) Lymph % (Auto) [place] % (Auto) Eos % (Auto) Baso % (Auto) Lymph # (Auto) [place] # (Auto) Eos # (Auto) Baso # (Auto) Abs Immat Gran (auto) Absolute Neuts (auto) Absolute Nucleated RBC Nucleated RBC % (auto) Neutrophils % (Manual) Band Neutrophils % Lymphocytes % (Manual) Atypical Lymphs % (Man) Monocytes % (Manual) Eosinophils % (Manual) Basophils % (Manual) Abs Neuts (Manual) Lymphocytes # (Manual) Atyp Lymphs # (Manual) Monocytes # (Manual) Eosinophils # (Manual) Basophils # (Manual) Platelet Estimate Plt Morphology Comment RBC Morphology Smear Tech's Comments Sodium Potassium Chloride Carbon Dioxide Anion Gap BUN Creatinine Estim Creat Clear Calc Estimated GFR POC Glucose 96 Random Glucose Calcium [place] Influenza Type A (PCR) Influenza Type B (PCR) RSV RNA Qual (PCR) SARS-CoV-2 RNA (RT-PCR) Medications Medications Current Medications Acetaminophen (Acetaminophen 325 Mg Tablet) 650 mg PO Q6H PRN PRN Reason: Headache/Pain Mild Scale (1-3) Last Admin: 03/03/23 14:14 Dose: 650 mg Al Hydroxide/Mg Hydroxide (Magnesium Hydrox/Alum Hydrox 30 Ml Oral.Susp) 30 ml PO Q6H PRN PRN Reason: Heartburn/Nausea Last Admin: 02/28/23 20:35 Dose: 30 ml Amlodipine Besylate (Amlodipine Besylate 2.5 Mg Tablet) 7.5 mg PO DAILY EDWIGE; Protocol Last Admin: 03/03/23 09:25 Dose: 7.5 mg Benzocaine (Throat Lozenge, Medicated Lozenge) 1 lozenge MUCOUS MEM Q2H PRN PRN Reason: Sore Throat Last Admin: 03/03/23 07:28 Dose: 1 lozenge Benztropine Mesylate (Benztropine Mesylate 0.5 Mg Tablet) 0.5 mg PO BID [facility] Last Admin: 03/03/23 09:26 Dose: 0.5 mg Capsaicin (Capsaicin 0.025% Cream 60 Gm Tube) 1 appl TOPICAL TID PRN; Protocol PRN Reason: Pain, Moderate(Pain Scale 4-6) Last Admin: 02/28/23 09:19 Dose: 1 appl Dextrose (Dextrose 50 % 25 Gm/50 Ml Syringe) 25 gm IVPUSH Q15M PRN; Protocol PRN Reason: per Hypoglycemia Standing Ord. Docusate Sodium (Docusate Sodium 100 Mg Capsule) 200 mg PO BID [facility] Ferrous Sulfate (Ferrous Sulfate 324 Mg Tablet.Dr) 324 mg PO Q48H [facility] Last Admin: 03/01/23 23:02 Dose: 324 mg Fluticasone Propionate (Fluticasone Propionate Nasal 16 Gm [place]) 1 spray NOSTRIL-B DAILY [facility] Last Admin: 03/03/23 09:27 Dose: Not Given Gabapentin (Gabapentin 400 Mg Capsule) 400 mg PO TID [facility] Last Admin: 03/03/23 14:14 Dose: 400 mg Glucose (Glucose Gel 15 Gm Gel..Gram.) 15 gm PO Q15M PRN; Protocol PRN Reason: per Hypoglycemia Standing Ord. Haloperidol (Haloperidol 5 Mg Tablet) 5 mg PO DAILY [facility] Last Admin: 03/03/23 09:26 Dose: 5 mg Haloperidol (Haloperidol 5 Mg Tablet) 15 mg PO BEDTIME [facility] Last Admin: 03/02/23 20:31 Dose: 15 mg Hydroxyzine HCl (Hydroxyzine Hcl 50 Mg Tablet) 50 mg PO Q6H PRN PRN Reason: Anxiety Insulin Human Lispro (Insulin Lispro 100 Unit/Ml 3 Ml Vial) 0 unit SUBCUT QIDACHS [facility]; Protocol Last Admin: 03/03/23 14:26 Dose: Not Given [place] Carbonate ([place] Carbonate Er 300 Mg Tablet.Er) 600 mg PO BID [facility] Last Admin: 03/03/23 09:26 Dose: 600 mg Loratadine (Loratadine 10 Mg Tablet) 10 mg PO DAILY [facility] Last Admin: 03/03/23 09:26 Dose: 10 mg Magnesium Hydroxide (Milk Of Magnesia 30 Ml Oral.Susp) 30 ml PO DAILY PRN PRN Reason: Constipation Last Admin: 03/03/23 13:05 Dose: 30 ml Metformin HCl (Metformin Hcl Er 500 Mg Tab.Er.24h) 500 mg PO BEDTIME [facility] Last Admin: 03/02/23 20:40 Dose: 500 mg Multi-Ingred Cream/Lotion/Oil/Oint (Mineral Oil/Petrolatum,White 106 Gm Tube) 1 appl TOPICAL BID PRN; Protocol PRN Reason: Dry skin Multivitamins/Vitamin C (Multivitamin Tablet) 1 tab PO DAILY [facility] Last Admin: 03/03/23 09:25 Dose: 1 tab Omeprazole (Omeprazole 20 Mg Capsule.Dr) 20 mg PO DAILY@0630 [facility] Last Admin: 03/03/23 07:28 Dose: 20 mg Ondansetron HCl (Ondansetron Odt 4 Mg Tab.Rapdis) 4 mg TRANSLINGU Q6H PRN PRN Reason: Nausea Last Admin: 03/03/23 03:43 Dose: 4 mg Ondansetron HCl (Ondansetron Odt 4 Mg Tab.Rapdis) 4 mg TRANSLINGU Q8H PRN PRN Reason: Nausea and Vomiting Prazosin HCl (Prazosin Hcl 5 Mg Capsule) 5 mg PO BEDTIME [facility]; Protocol Pseudoephedrine HCl (Pseudoephedrine Hcl 30 Mg Tablet) 30 mg PO Q6H PRN PRN Reason: nasal congestion Last Admin: 03/02/23 15:45 Dose: 30 mg Sertraline HCl (Sertraline Hcl 100 Mg Tablet) 100 mg PO DAILY [facility] Last Admin: 03/03/23 09:26 Dose: 100 mg Trazodone HCl (Trazodone Hcl 50 Mg Tablet) 50 mg PO BEDTIME MRX1 PRN PRN Reason: Insomnia Last Admin: 03/02/23 20:31 Dose: 50 mg Trazodone HCl (Trazodone Hcl 50 Mg Tablet) 150 mg PO BEDTIME [facility] Last Admin: 03/02/23 20:31 Dose: 150 mg Venlafaxine HCl (Venlafaxine Hcl Er 150 Mg Cap.Er.24h) 150 mg PO DAILY [facility] Last Admin: 03/03/23 09:26 Dose: 150 mg Allergies Allergies Allergy/AdvReac Type Severity Reaction Status Date / Time lisinopril Allergy Unknown Cough Verified 12/15/22 18:44 clonidine AdvReac Unknown Unknown Verified 11/19/22 16:28 Assessment & Plan Assessment & Plan (1) Schizoaffective disorder: Status: Acute Code(s): F25.9 - Schizoaffective disorder, unspecified (2) Gastrointestinal complaint: Status: Acute Code(s): R19.8 - Other specified symptoms and signs involving the digestive system and abdomen Assessment and Plan: Nausea/Vomiting: N/V, NBNB emesis x 24 hours w/ intermittent loose stools, no hx of fever, chills, hematemesis, melena, hematochezia. VS wnl on exam, tolerating liquids and some solids this morning. No recent new medications since admission or as outpatient. DDx: Acute gastroenteritis/CHES/Gastroparesis Plan: -will change diet to liquids- may resume reg diet if symptom improves over the next 24-48 hours -encourage PO hydration if tolerating -prn zofran, will consider transition to reglan -cbc/bmp in am 01/03/2024 -GI panel ordered DM--continue home Metformin, SSI, HTN-well controlled, continue home Amlodipine GERD- continue PPI Schizophrenia/mood desorder, managment per Psych Neuropathy: continue home gabapentin Plan 02/28: restart home medications regimen. 03/01: appears manic. check lithium level in 5 days. continue current mgmt. 03/02: c/o URI Sx, also vomiting and diarrhea for 5 days. now says blood in vomit for past 2 days. c/o nightmares, prazosin increased to 4 mg QHS. checking labs tonight. 03/03: liquid diet for recent n/v, advance as tolerated. increase prazosin to 5 mg QHS for nightmares and insomnia. recheck lithium monday morning and adjust accordingly. Reason for continued inpatient stay Substantial Risk for: inability to function and rapid decompensation Time Spent With Patient Time: Total time managing care of this patient today __25__ minutes.
[2023-03-03 17:30] LABS: Glucose, Whole Blood 90 mg/dL (60-115)
[2023-03-03 20:10] VITALS: BP 139/90; PULSE 90; RESP 16; TEMP 36.6; O2SAT 97
[2023-03-03] MEDS: HaloperidoL 5 MG TABLET 15 MG PO (21:38)
[2023-03-03] MEDS: traZODone HCL 50 MG TABLET 150 MG PO (21:39)
[2023-03-03] MEDS: Ferrous Sulfate 324 MG TABLET.DR PO (21:40)
[2023-03-03] MEDS: Prazosin HCL 5 MG CAPSULE PO (21:41)
[2023-03-03] MEDS: Docusate Sodium 100 MG CAPSULE 200 MG PO (21:42)
[2023-03-03] MEDS: Pseudoephedrine HCL 30 MG TABLET PO (21:46)
[2023-03-03 21:47] LABS: Glucose, Whole Blood 96 mg/dL (60-115)
[2023-03-04] MEDS: Omeprazole 20 MG CAPSULE.DR PO (06:36)
[2023-03-04 07:16] VITALS: BP 124/64; PULSE 74; RESP 14; TEMP 36.3; O2SAT 97
[2023-03-04 07:47] LABS: MANUAL DIFF FLAG NO
[2023-03-04 07:51] LABS: Basophils Absolute Auto 0.1 X10*3/uL (0.0-0.2); Basophils Percent Auto 0.8 % (0-2); Eosinophils Absolute Auto 0.3 X10*3/uL (0.0-0.4); Eosinophils Percent Auto 3.7 % (0-4); Hematocrit 41.4 % (42.0-52.0); Hemoglobin 13.5 g/dl (14.0-18.0); Imm Gran Abs Auto 0.02 X10*3/uL (0.00-0.03); Imm Gran Pct Auto 0.3 % (0.0-0.4); Lymphocytes Percent Auto 26.7 % (20-40); Mean Corpuscular HGB Conc 32.6 g/dl (31.0-36.0); Mean Corpuscular Hemoglobin 28.2 pg (27.0-33.0); Mean Corpuscular Volume 86.6 fL (80.0-98.0); Mean Platelet Volume 10.1 fL (9.4-12.4); Monocytes Absolute Auto 1.1 X10*3/uL (0.1-1.2); Monocytes Percent Auto 14.8 % (2-11); Neutrophils Absolute Auto 4.1 x10*3/uL (2.0-8.3); Neutrophils Percent Auto 53.7 % (45-73); Platelet Count 256 X10*3/uL (160-400); Red Blood Count 4.78 X10*6/uL (4.60-5.80); Red Cell Distribution Width 12.6 % (11.0-16.0); White Blood Count 7.7 X10*3/uL (4.8-10.8)
[2023-03-04 08:05] LABS: Glucose, Whole Blood 101 mg/dL (60-115)
[2023-03-04 08:11] LABS: Anion Gap 10 (12-20); Blood Urea Nitrogen 15 mg/dL (9-16); Calcium 9.8 mg/dL (8.4-10.2); Carbon Dioxide 31 mmol/L (22-29); Chloride 102 mmol/L (96-108); Creatinine Clr Calc Pharmacy 164.6; Estimated Glomerular Filt Rate > 60; Glucose Random 87 mg/dL (60-115); Potassium 4.4 mmol/L (3.3-5.1); Sodium 139 mmol/L (135-145)
[2023-03-04 08:30] LABS: Adenovirus F 40/41 Not Detected (Not Detect.); Astrovirus Not Detected (Not Detect.); Campylobacter Not Detected (Not Detect.); Cryptosporidium Not Detected (Not Detect.); Cyclospora cayetanensis Not Detected (Not Detect.); E. coli EAEC Not Detected (Not Detect.); E. coli EPEC Not Detected (Not Detect.); E. coli ETEC Not Detected (Not Detect.); E. coli STEC Not Detected (Not Detect.); Entamoeba histolytica Not Detected (Not Detect.); Giardia lamblia Not Detected (Not Detect.); Plesiomonas shigelloides Not Detected (Not Detect.); Rotavirus A Not Detected (Not Detect.); Salmonella Not Detected (Not Detect.); Sapovirus Not Detected (Not Detect.); Shigella sp./EIEC Not Detected (Not Detect.); Vibrio Not Detected (Not Detect.); Vibrio Cholerae Not Detected (Not Detect.); Yersinia enterocolitica Not Detected (Not Detect.)
[2023-03-04 08:31] LABS: Norovirus GI/GII Detected (Not Detect.)
[2023-03-04] MEDS: Benztropine Mesylate 0.5 MG TABLET PO ×2 (09:22→21:30)
[2023-03-04] MEDS: Gabapentin 400 MG CAPSULE PO ×3 (09:22→21:29)
[2023-03-04] MEDS: Loratadine 10 MG TABLET PO (09:22)
[2023-03-04] MEDS: Venlafaxine HCl ER 150 MG CAP.ER.24H PO (09:22)
[2023-03-04] MEDS: Sertraline HCL 100 MG TABLET PO (09:22)
[2023-03-04] MEDS: amLODIPine Besylate 2.5 MG TABLET 7.5 MG PO (09:22)
[2023-03-04] MEDS: HaloperidoL 5 MG TABLET PO (09:22)
[2023-03-04] MEDS: Multivitamin TABLET 1 TAB PO (09:22)
[2023-03-04] MEDS: Docusate Sodium 100 MG CAPSULE 200 MG PO ×2 (09:22→21:30)
[2023-03-04] MEDS: Lithium Carbonate ER 300 MG TABLET.ER 600 MG PO ×2 (09:22→21:29)
[2023-03-04] MEDS: Fluticasone Propionate Nasal 16 GM SPRAY 1 SPRAY NOSTRIL-B (10:01)
[2023-03-04 12:48] LABS: Glucose, Whole Blood 96 mg/dL (60-115)
--- NOTE | 2023-03-04 12:49 | HO.PSYCHPN ---
Subjective Subjective Date of Service: 03/04/23 Reason For Visit: Psych Subjective Notes: Conditional Voluntary Interim History: Patient was seen and discussed in rounds today. Records and plans were reviewed. He continues to be in isolation because of norovirus. He is requesting use of his I pad which is ordered. He denies any depression or anxiety. Affect is brighter. He is on a liquid diet. No SI. No changes were made today Review of Systems Review of Systems Yes all other systems are reviewed and are negative Mental Status Exam Mental Status Exam Narrative: In today's visit he is alert, oriented and pleasant. Normal speech. Moderate eye contact. Affect is appropriate and stable. No signs of psychosis. Cognitively is intact. Judgment is intact Diagnostics Vital Signs (24Hr): Vital Signs - 24 hr 03/03/23 20:10 03/04/23 07:16 Temperature 98 F 97.4 F Pulse Rate 90 74 Respiratory Rate 16 14 Blood Pressure 139/90 H 124/64 Pulse Oximetry 97 97 Oxygen Delivery Method Room Air Room Air BMI result Body Mass Index 43.4 Labs 03/04/23 07:39 03/04/23 07:39 Labs: Laboratory Results - last 48 hr 03/02/23 03/02/23 03/02/23 17:14 19:51 20:27 WBC 8.7 RBC 4.93 Hgb 13.7 L Hct 43.1 MCV 87.4 MCH 27.8 MCHC 31.8 RDW 12.8 Plt Count 267 MPV 10.2 Immature Gran % (Auto) Cancelled Neut % (Auto) Cancelled Lymph % (Auto) Cancelled Cameron % (Auto) Cancelled Eos % (Auto) Cancelled Baso % (Auto) Cancelled Lymph # (Auto) Cancelled Cameron # (Auto) Cancelled Eos # (Auto) Cancelled Baso # (Auto) Cancelled Abs Immat Gran (auto) Cancelled Absolute Neuts (auto) Cancelled Absolute Nucleated RBC 0.000 Nucleated RBC % (auto) 0.0 Neutrophils % (Manual) 60 Band Neutrophils % 1 L Lymphocytes % (Manual) 21 Atypical Lymphs % (Man) 5 Monocytes % (Manual) 9 Eosinophils % (Manual) 3 Basophils % (Manual) 1 Abs Neuts (Manual) 5.3 Lymphocytes # (Manual) 1.8 Atyp Lymphs # (Manual) 0.4 Monocytes # (Manual) 0.8 Eosinophils # (Manual) 0.3 Basophils # (Manual) 0.1 Platelet Estimate NORMAL Plt Morphology Comment NORMAL RBC Morphology NORMAL Smear Tech's Comments MANUAL DIFF Sodium 139 Potassium 4.3 Chloride 104 Carbon Dioxide 27 Anion Gap 12 BUN 17 H Creatinine 0.81 Estim Creat Clear Calc 161.8 Estimated GFR > 60 POC Glucose 97 120 H Random Glucose 84 Calcium 9.8 Stl C. cayetanensis PCR Stool Rotavirus A PCR Stl Adenov F 40/41 PCR Stool Astrovirus (PCR) Stool Campylobacter PCR Stool Cryptosporidium PCR Stl Sh Tox Pr E STEC PCR Stool E coli O157 PCR Stl Enterotoxigenic E PCR Stool EPEC (PCR) Stool EAEC (PCR) Stl E. histolytica PCR Stool Giardia Lamblia PCR Stl P. shigelloides PCR Stool Salmonella PCR Stool Sapovirus (PCR) Stl Shigella/EIEC PCR St Y.enterocolitica PCR Stool Vibrio (PCR) Stl Vibrio cholerae PCR Stl Norovirus GI/GII PCR [place] 0.37 L 03/03/23 03/03/23 03/03/23 08:06 12:47 13:40 WBC RBC Hgb Hct MCV MCH MCHC RDW Plt Count MPV Immature Gran % (Auto) Neut % (Auto) Lymph % (Auto) Cameron % (Auto) Eos % (Auto) Baso % (Auto) Lymph # (Auto) Cameron # (Auto) Eos # (Auto) Baso # (Auto) Abs Immat Gran (auto) Absolute Neuts (auto) Absolute Nucleated RBC Nucleated RBC % (auto) Neutrophils % (Manual) Band Neutrophils % Lymphocytes % (Manual) Atypical Lymphs % (Man) Monocytes % (Manual) Eosinophils % (Manual) Basophils % (Manual) Abs Neuts (Manual) Lymphocytes # (Manual) Atyp Lymphs # (Manual) Monocytes # (Manual) Eosinophils # (Manual) Basophils # (Manual) Platelet Estimate Plt Morphology Comment RBC Morphology Smear Tech's Comments Sodium Potassium Chloride Carbon Dioxide Anion Gap BUN Creatinine Estim Creat Clear Calc Estimated GFR POC Glucose 91 96 Random Glucose Calcium Stl C. cayetanensis PCR Not Detected Stool Rotavirus A PCR Not Detected Stl Adenov F 40/41 PCR Not Detected Stool Astrovirus (PCR) Not Detected Stool Campylobacter PCR Not Detected Stool Cryptosporidium PCR Not Detected Stl Sh Tox Pr E STEC PCR Not Detected Stool E coli O157 PCR Not applicable Stl Enterotoxigenic E PCR Not Detected Stool EPEC (PCR) Not Detected Stool EAEC (PCR) Not Detected Stl E. histolytica PCR Not Detected Stool Giardia Lamblia PCR Not Detected Stl P. shigelloides PCR Not Detected Stool Salmonella PCR Not Detected Stool Sapovirus (PCR) Not Detected Stl Shigella/EIEC PCR Not Detected St Y.enterocolitica PCR Not Detected Stool Vibrio (PCR) Not Detected Stl Vibrio cholerae PCR Not Detected Stl Norovirus GI/GII PCR Detected A [place] 03/03/23 03/03/23 03/04/23 17:25 21:33 07:39 WBC 7.7 RBC 4.78 Hgb 13.5 L Hct 41.4 L MCV 86.6 MCH 28.2 MCHC 32.6 RDW 12.6 Plt Count 256 MPV 10.1 Immature Gran % (Auto) 0.3 Neut % (Auto) 53.7 Lymph % (Auto) 26.7 Cameron % (Auto) 14.8 H Eos % (Auto) 3.7 Baso % (Auto) 0.8 Lymph # (Auto) 2.0 Cameron # (Auto) 1.1 Eos # (Auto) 0.3 Baso # (Auto) 0.1 Abs Immat Gran (auto) 0.02 Absolute Neuts (auto) 4.1 Absolute Nucleated RBC 0.000 Nucleated RBC % (auto) 0.0 Neutrophils % (Manual) Band Neutrophils % Lymphocytes % (Manual) Atypical Lymphs % (Man) Monocytes % (Manual) Eosinophils % (Manual) Basophils % (Manual) Abs Neuts (Manual) Lymphocytes # (Manual) Atyp Lymphs # (Manual) Monocytes # (Manual) Eosinophils # (Manual) Basophils # (Manual) Platelet Estimate Plt Morphology Comment RBC Morphology Smear Tech's Comments Sodium 139 Potassium 4.4 Chloride 102 Carbon Dioxide 31 H Anion Gap 10 L BUN 15 Creatinine 0.83 Estim Creat Clear Calc 164.6 Estimated GFR > 60 POC Glucose 90 96 Random Glucose 87 Calcium 9.8 Stl C. cayetanensis PCR Stool Rotavirus A PCR Stl Adenov F 40/41 PCR Stool Astrovirus (PCR) Stool Campylobacter PCR Stool Cryptosporidium PCR Stl Sh Tox Pr E STEC PCR Stool E coli O157 PCR Stl Enterotoxigenic E PCR Stool EPEC (PCR) Stool EAEC (PCR) Stl E. histolytica PCR Stool Giardia Lamblia PCR Stl P. shigelloides PCR Stool Salmonella PCR Stool Sapovirus (PCR) Stl Shigella/EIEC PCR St Y.enterocolitica PCR Stool Vibrio (PCR) Stl Vibrio cholerae PCR Stl Norovirus GI/GII PCR [place] 03/04/23 03/04/23 08:00 12:38 WBC RBC Hgb Hct MCV MCH MCHC RDW Plt Count MPV Immature Gran % (Auto) Neut % (Auto) Lymph % (Auto) [place] % (Auto) Eos % (Auto) Baso % (Auto) Lymph # (Auto) [place] # (Auto) Eos # (Auto) Baso # (Auto) Abs Immat Gran (auto) Absolute Neuts (auto) Absolute Nucleated RBC Nucleated RBC % (auto) Neutrophils % (Manual) Band Neutrophils % Lymphocytes % (Manual) Atypical Lymphs % (Man) Monocytes % (Manual) Eosinophils % (Manual) Basophils % (Manual) Abs Neuts (Manual) Lymphocytes # (Manual) Atyp Lymphs # (Manual) Monocytes # (Manual) Eosinophils # (Manual) Basophils # (Manual) Platelet Estimate Plt Morphology Comment RBC Morphology Smear Tech's Comments Sodium Potassium Chloride Carbon Dioxide Anion Gap BUN Creatinine Estim Creat Clear Calc Estimated GFR POC Glucose 101 96 Random Glucose Calcium Stl C. cayetanensis PCR Stool Rotavirus A PCR Stl Adenov F 40/41 PCR Stool Astrovirus (PCR) Stool Campylobacter PCR Stool Cryptosporidium PCR Stl Sh Tox Pr E STEC PCR Stool E coli O157 PCR Stl Enterotoxigenic E PCR Stool EPEC (PCR) Stool EAEC (PCR) Stl E. histolytica PCR Stool Giardia Lamblia PCR Stl P. shigelloides PCR Stool Salmonella PCR Stool Sapovirus (PCR) Stl Shigella/EIEC PCR St Y.enterocolitica PCR Stool Vibrio (PCR) Stl Vibrio cholerae PCR Stl Norovirus GI/GII PCR [place] Medications Medications Current Medications Acetaminophen (Acetaminophen 325 Mg Tablet) 650 mg PO Q6H PRN PRN Reason: Headache/Pain Mild Scale (1-3) Last Admin: 03/03/23 14:14 Dose: 650 mg Al Hydroxide/Mg Hydroxide (Magnesium Hydrox/Alum Hydrox 30 Ml Oral.Susp) 30 ml PO Q6H PRN PRN Reason: Heartburn/Nausea Last Admin: 02/28/23 20:35 Dose: 30 ml Amlodipine Besylate (Amlodipine Besylate 2.5 Mg Tablet) 7.5 mg PO DAILY EDWIGE; Protocol Last Admin: 03/04/23 09:22 Dose: 7.5 mg Benzocaine (Throat Lozenge, Medicated Lozenge) 1 lozenge MUCOUS MEM Q2H PRN PRN Reason: Sore Throat Last Admin: 03/03/23 07:28 Dose: 1 lozenge Benztropine Mesylate (Benztropine Mesylate 0.5 Mg Tablet) 0.5 mg PO BID [facility] Last Admin: 03/04/23 09:22 Dose: 0.5 mg Capsaicin (Capsaicin 0.025% Cream 60 Gm Tube) 1 appl TOPICAL TID PRN; Protocol PRN Reason: Pain, Moderate(Pain Scale 4-6) Last Admin: 02/28/23 09:19 Dose: 1 appl Dextrose (Dextrose 50 % 25 Gm/50 Ml Syringe) 25 gm IVPUSH Q15M PRN; Protocol PRN Reason: per Hypoglycemia Standing Ord. Docusate Sodium (Docusate Sodium 100 Mg Capsule) 200 mg PO BID [facility] Last Admin: 03/04/23 09:22 Dose: 200 mg Ferrous Sulfate (Ferrous Sulfate 324 Mg Tablet.Dr) 324 mg PO Q48H [facility] Last Admin: 03/03/23 21:40 Dose: 324 mg Fluticasone Propionate (Fluticasone Propionate Nasal 16 Gm [place]) 1 spray NOSTRIL-B DAILY [facility] Last Admin: 03/04/23 10:01 Dose: 1 spray Gabapentin (Gabapentin 400 Mg Capsule) 400 mg PO TID [facility] Last Admin: 03/04/23 09:22 Dose: 400 mg Glucose (Glucose Gel 15 Gm Gel..Gram.) 15 gm PO Q15M PRN; Protocol PRN Reason: per Hypoglycemia Standing Ord. Haloperidol (Haloperidol 5 Mg Tablet) 5 mg PO DAILY [facility] Last Admin: 03/04/23 09:22 Dose: 5 mg Haloperidol (Haloperidol 5 Mg Tablet) 15 mg PO BEDTIME [facility] Last Admin: 03/03/23 21:38 Dose: 15 mg Hydroxyzine HCl (Hydroxyzine Hcl 50 Mg Tablet) 50 mg PO Q6H PRN PRN Reason: Anxiety Insulin Human Lispro (Insulin Lispro 100 Unit/Ml 3 Ml Vial) 0 unit SUBCUT QIDACHS [facility]; Protocol Last Admin: 03/04/23 12:46 Dose: Not Given [place] Carbonate ([place] Carbonate Er 300 Mg Tablet.Er) 600 mg PO BID [facility] Last Admin: 03/04/23 09:22 Dose: 600 mg Loratadine (Loratadine 10 Mg Tablet) 10 mg PO DAILY [facility] Last Admin: 03/04/23 09:22 Dose: 10 mg Magnesium Hydroxide (Milk Of Magnesia 30 Ml Oral.Susp) 30 ml PO DAILY PRN PRN Reason: Constipation Last Admin: 03/03/23 13:05 Dose: 30 ml Metformin HCl (Metformin Hcl Er 500 Mg Tab.Er.24h) 500 mg PO BEDTIME [facility] Last Admin: 03/03/23 23:32 Dose: Not Given Multi-Ingred Cream/Lotion/Oil/Oint (Mineral Oil/Petrolatum,White 106 Gm Tube) 1 appl TOPICAL BID PRN; Protocol PRN Reason: Dry skin Multivitamins/Vitamin C (Multivitamin Tablet) 1 tab PO DAILY [facility] Last Admin: 03/04/23 09:22 Dose: 1 tab Omeprazole (Omeprazole 20 Mg Capsule.Dr) 20 mg PO DAILY@0630 [facility] Last Admin: 03/04/23 06:36 Dose: 20 mg Ondansetron HCl (Ondansetron Odt 4 Mg Tab.Rapdis) 4 mg TRANSLINGU Q6H PRN PRN Reason: Nausea Last Admin: 03/03/23 03:43 Dose: 4 mg Ondansetron HCl (Ondansetron Odt 4 Mg Tab.Rapdis) 4 mg TRANSLINGU Q8H PRN PRN Reason: Nausea and Vomiting Prazosin HCl (Prazosin Hcl 5 Mg Capsule) 5 mg PO BEDTIME [facility]; Protocol Last Admin: 03/03/23 21:41 Dose: 5 mg Pseudoephedrine HCl (Pseudoephedrine Hcl 30 Mg Tablet) 30 mg PO Q6H PRN PRN Reason: nasal congestion Last Admin: 03/03/23 21:46 Dose: 30 mg Sertraline HCl (Sertraline Hcl 100 Mg Tablet) 100 mg PO DAILY [facility] Last Admin: 03/04/23 09:22 Dose: 100 mg Trazodone HCl (Trazodone Hcl 50 Mg Tablet) 50 mg PO BEDTIME MRX1 PRN PRN Reason: Insomnia Last Admin: 03/02/23 20:31 Dose: 50 mg Trazodone HCl (Trazodone Hcl 50 Mg Tablet) 150 mg PO BEDTIME [facility] Last Admin: 03/03/23 21:39 Dose: 150 mg Venlafaxine HCl (Venlafaxine Hcl Er 150 Mg Cap.Er.24h) 150 mg PO DAILY EDWIGE Last Admin: 03/04/23 09:22 Dose: 150 mg Allergies Allergies Allergy/AdvReac Type Severity Reaction Status Date / Time lisinopril Allergy Unknown Cough Verified 12/15/22 18:44 clonidine AdvReac Unknown Unknown Verified 11/19/22 16:28 Assessment & Plan Assessment & Plan (1) Schizoaffective disorder: Status: Acute Code(s): F25.9 - Schizoaffective disorder, unspecified (2) Gastrointestinal complaint: Status: Acute Code(s): R19.8 - Other specified symptoms and signs involving the digestive system and abdomen Assessment and Plan: Nausea/Vomiting: N/V, NBNB emesis x 24 hours w/ intermittent loose stools, no hx of fever, chills, hematemesis, melena, hematochezia. VS wnl on exam, tolerating liquids and some solids this morning. No recent new medications since admission or as outpatient. DDx: Acute gastroenteritis/CHES/Gastroparesis Plan: -will change diet to liquids- may resume reg diet if symptom improves over the next 24-48 hours -encourage PO hydration if tolerating -prn zofran, will consider transition to reglan -cbc/bmp in am 01/03/2024 -GI panel ordered DM--continue home Metformin, SSI, HTN-well controlled, continue home Amlodipine GERD- continue PPI Schizophrenia/mood desorder, managment per Psych Neuropathy: continue home gabapentin Plan 02/28: restart home medications regimen. 03/01: appears manic. check lithium level in 5 days. continue current mgmt. 03/02: c/o URI Sx, also vomiting and diarrhea for 5 days. now says blood in vomit for past 2 days. c/o nightmares, prazosin increased to 4 mg QHS. checking labs tonight. 03/03: liquid diet for recent n/v, advance as tolerated. increase prazosin to 5 mg QHS for nightmares and insomnia. recheck lithium monday morning and adjust accordingly. 03/04/23: Continue current regimen and plans Reason for continued inpatient stay Substantial Risk for: med/psych decompensation Time Spent With Patient Time: Total time managing care of this patient today ____ minutes.
[2023-03-04] MEDS: Acetaminophen 325 MG TABLET 650 MG PO ×2 (14:58→23:49)
[2023-03-04 17:43] LABS: Glucose, Whole Blood 95 mg/dL (60-115)
[2023-03-04 18:00] VITALS: BP 136/82; PULSE 94; RESP 16; TEMP 36.4; O2SAT 97
[2023-03-04] MEDS: traZODone HCL 50 MG TABLET 150 MG PO (21:27)
[2023-03-04] MEDS: HaloperidoL 5 MG TABLET 15 MG PO (21:28)
[2023-03-04] MEDS: Prazosin HCL 5 MG CAPSULE PO (21:30)
[2023-03-04] MEDS: metFORMIN HCl ER 500 MG TAB.ER.24H PO (21:30)
[2023-03-04 21:45] LABS: Glucose, Whole Blood 91 mg/dL (60-115)
[2023-03-04] MEDS: traZODone HCL 50 MG TABLET PO (23:50)
[2023-03-05] MEDS: Throat Lozenge, Medicated LOZENGE 1 LOZENGE MUCOUS MEM (06:30)
[2023-03-05] MEDS: Omeprazole 20 MG CAPSULE.DR PO (06:30)
[2023-03-05 07:47] LABS: Glucose, Whole Blood 90 mg/dL (60-115)
[2023-03-05 08:14] VITALS: BP 133/72; PULSE 95; RESP 20; TEMP 36.7; O2SAT 96
[2023-03-05] MEDS: Loratadine 10 MG TABLET PO (08:22)
[2023-03-05] MEDS: Lithium Carbonate ER 300 MG TABLET.ER 600 MG PO ×2 (08:22→21:27)
[2023-03-05] MEDS: amLODIPine Besylate 2.5 MG TABLET 7.5 MG PO (08:22)
[2023-03-05] MEDS: Venlafaxine HCl ER 150 MG CAP.ER.24H PO (08:22)
[2023-03-05] MEDS: HaloperidoL 5 MG TABLET PO (08:22)
[2023-03-05] MEDS: Sertraline HCL 100 MG TABLET PO (08:22)
[2023-03-05] MEDS: Gabapentin 400 MG CAPSULE PO ×3 (08:22→21:29)
[2023-03-05] MEDS: Benztropine Mesylate 0.5 MG TABLET PO ×2 (08:22→21:30)
[2023-03-05] MEDS: Multivitamin TABLET 1 TAB PO (08:22)
[2023-03-05] MEDS: Docusate Sodium 100 MG CAPSULE 200 MG PO ×2 (08:23→21:31)
[2023-03-05 08:29] LABS: Lithium 0.53 mmol/L (0.60-1.20)
[2023-03-05 08:34] LABS: Anion Gap 13 (12-20); Blood Urea Nitrogen 11 mg/dL (9-16); Calcium 9.4 mg/dL (8.4-10.2); Carbon Dioxide 27 mmol/L (22-29); Chloride 103 mmol/L (96-108); Creatinine Clr Calc Pharmacy 130.1; Estimated Glomerular Filt Rate > 60; Glucose Random 93 mg/dL (60-115); Potassium 3.9 mmol/L (3.3-5.1); Sodium 139 mmol/L (135-145)
[2023-03-05] MEDS: Fluticasone Propionate Nasal 16 GM SPRAY 1 SPRAY NOSTRIL-B (08:45)
[2023-03-05] MEDS: hydrOXYzine HCL 50 MG TABLET PO (10:47)
--- NOTE | 2023-03-05 11:27 | HO.PSYCHPN ---
Subjective Subjective Date of Service: 03/05/23 Reason For Visit: Psych Subjective Notes: Conditional Voluntary Interim History: Patient was seen and discussed in rounds today. Records and plans were reviewed. He is still asymptomatic but in isolation. He had questions about how long and I am not quite sure but probably till tomorrow Monday. He is tolerating it specially with being able to use his iPad. No symptoms. No complaints or side effects. His blood sugars are within normal range. No changes were made today Review of Systems Review of Systems Yes all other systems are reviewed and are negative Mental Status Exam Mental Status Exam Narrative: In today's visit he is alert, oriented and pleasant. Normal speech. Moderate eye contact. Affect is appropriate and stable. No signs of psychosis. Cognitively is intact. Judgment is intact Diagnostics Vital Signs (24Hr): Vital Signs - 24 hr 03/04/23 18:00 03/05/23 08:14 Temperature 97.6 F 98.0 F Pulse Rate 94 95 Respiratory Rate 16 20 Blood Pressure 136/82 133/72 Pulse Oximetry 97 96 Oxygen Delivery Method Room Air Room Air BMI result Body Mass Index 43.4 Labs 03/04/23 07:39 03/05/23 08:04 Labs: Laboratory Results - last 48 hr 03/03/23 03/03/23 03/03/23 12:47 13:40 17:25 WBC RBC Hgb Hct MCV MCH MCHC RDW Plt Count MPV Immature Gran % (Auto) Neut % (Auto) Lymph % (Auto) [place] % (Auto) Eos % (Auto) Baso % (Auto) Lymph # (Auto) [place] # (Auto) Eos # (Auto) Baso # (Auto) Abs Immat Gran (auto) Absolute Neuts (auto) Absolute Nucleated RBC Nucleated RBC % (auto) Sodium Potassium Chloride Carbon Dioxide Anion Gap BUN Creatinine Estim Creat Clear Calc Estimated GFR POC Glucose 96 90 Random Glucose Calcium Stl C. cayetanensis PCR Not Detected Stool Rotavirus A PCR Not Detected Stl Adenov F 40/41 PCR Not Detected Stool Astrovirus (PCR) Not Detected Stool Campylobacter PCR Not Detected Stool Cryptosporidium PCR Not Detected Stl Sh Tox Pr E STEC PCR Not Detected Stool E coli O157 PCR Not applicable Stl Enterotoxigenic E PCR Not Detected Stool EPEC (PCR) Not Detected Stool EAEC (PCR) Not Detected Stl E. histolytica PCR Not Detected Stool Giardia Lamblia PCR Not Detected Stl P. shigelloides PCR Not Detected Stool Salmonella PCR Not Detected Stool Sapovirus (PCR) Not Detected Stl Shigella/EIEC PCR Not Detected St Y.enterocolitica PCR Not Detected Stool Vibrio (PCR) Not Detected Stl Vibrio cholerae PCR Not Detected Stl Norovirus GI/GII PCR Detected A [place] 03/03/23 03/04/23 03/04/23 21:33 07:39 08:00 WBC 7.7 RBC 4.78 Hgb 13.5 L Hct 41.4 L MCV 86.6 MCH 28.2 MCHC 32.6 RDW 12.6 Plt Count 256 MPV 10.1 Immature Gran % (Auto) 0.3 Neut % (Auto) 53.7 Lymph % (Auto) 26.7 [place] % (Auto) 14.8 H Eos % (Auto) 3.7 Baso % (Auto) 0.8 Lymph # (Auto) 2.0 [place] # (Auto) 1.1 Eos # (Auto) 0.3 Baso # (Auto) 0.1 Abs Immat Gran (auto) 0.02 Absolute Neuts (auto) 4.1 Absolute Nucleated RBC 0.000 Nucleated RBC % (auto) 0.0 Sodium 139 Potassium 4.4 Chloride 102 Carbon Dioxide 31 H Anion Gap 10 L BUN 15 Creatinine 0.83 Estim Creat Clear Calc 164.6 Estimated GFR > 60 POC Glucose 96 101 Random Glucose 87 Calcium 9.8 Stl C. cayetanensis PCR Stool Rotavirus A PCR Stl Adenov F 40/41 PCR Stool Astrovirus (PCR) Stool Campylobacter PCR Stool Cryptosporidium PCR Stl Sh Tox Pr E STEC PCR Stool E coli O157 PCR Stl Enterotoxigenic E PCR Stool EPEC (PCR) Stool EAEC (PCR) Stl E. histolytica PCR Stool Giardia Lamblia PCR Stl P. shigelloides PCR Stool Salmonella PCR Stool Sapovirus (PCR) Stl Shigella/EIEC PCR St Y.enterocolitica PCR Stool Vibrio (PCR) Stl Vibrio cholerae PCR Stl Norovirus GI/GII PCR [place] 03/04/23 03/04/23 03/04/23 12:38 17:37 21:25 WBC RBC Hgb Hct MCV MCH MCHC RDW Plt Count MPV Immature Gran % (Auto) Neut % (Auto) Lymph % (Auto) [place] % (Auto) Eos % (Auto) Baso % (Auto) Lymph # (Auto) [place] # (Auto) Eos # (Auto) Baso # (Auto) Abs Immat Gran (auto) Absolute Neuts (auto) Absolute Nucleated RBC Nucleated RBC % (auto) Sodium Potassium Chloride Carbon Dioxide Anion Gap BUN Creatinine Estim Creat Clear Calc Estimated GFR POC Glucose 96 95 91 Random Glucose Calcium Stl C. cayetanensis PCR Stool Rotavirus A PCR Stl Adenov F 40/41 PCR Stool Astrovirus (PCR) Stool Campylobacter PCR Stool Cryptosporidium PCR Stl Sh Tox Pr E STEC PCR Stool E coli O157 PCR Stl Enterotoxigenic E PCR Stool EPEC (PCR) Stool EAEC (PCR) Stl E. histolytica PCR Stool Giardia Lamblia PCR Stl P. shigelloides PCR Stool Salmonella PCR Stool Sapovirus (PCR) Stl Shigella/EIEC PCR St Y.enterocolitica PCR Stool Vibrio (PCR) Stl Vibrio cholerae PCR Stl Norovirus GI/GII PCR [place] 03/05/23 03/05/23 07:38 08:04 WBC RBC Hgb Hct MCV MCH MCHC RDW Plt Count MPV Immature Gran % (Auto) Neut % (Auto) Lymph % (Auto) [place] % (Auto) Eos % (Auto) Baso % (Auto) Lymph # (Auto) [place] # (Auto) Eos # (Auto) Baso # (Auto) Abs Immat Gran (auto) Absolute Neuts (auto) Absolute Nucleated RBC Nucleated RBC % (auto) Sodium 139 Potassium 3.9 Chloride 103 Carbon Dioxide 27 Anion Gap 13 BUN 11 Creatinine 1.05 Estim Creat Clear Calc 130.1 Estimated GFR > 60 POC Glucose 90 Random Glucose 93 Calcium 9.4 Stl C. cayetanensis PCR Stool Rotavirus A PCR Stl Adenov F 40/41 PCR Stool Astrovirus (PCR) Stool Campylobacter PCR Stool Cryptosporidium PCR Stl Sh Tox Pr E STEC PCR Stool E coli O157 PCR Stl Enterotoxigenic E PCR Stool EPEC (PCR) Stool EAEC (PCR) Stl E. histolytica PCR Stool Giardia Lamblia PCR Stl P. shigelloides PCR Stool Salmonella PCR Stool Sapovirus (PCR) Stl Shigella/EIEC PCR St Y.enterocolitica PCR Stool Vibrio (PCR) Stl Vibrio cholerae PCR Stl Norovirus GI/GII PCR [place] 0.53 L Medications Medications Current Medications Acetaminophen (Acetaminophen 325 Mg Tablet) 650 mg PO Q6H PRN PRN Reason: Headache/Pain Mild Scale (1-3) Last Admin: 03/04/23 23:49 Dose: 650 mg Al Hydroxide/Mg Hydroxide (Magnesium Hydrox/Alum Hydrox 30 Ml Oral.Susp) 30 ml PO Q6H PRN PRN Reason: Heartburn/Nausea Last Admin: 02/28/23 20:35 Dose: 30 ml Amlodipine Besylate (Amlodipine Besylate 2.5 Mg Tablet) 7.5 mg PO DAILY [facility]; Protocol Last Admin: 03/05/23 08:22 Dose: 7.5 mg Benzocaine (Throat Lozenge, Medicated Lozenge) 1 lozenge MUCOUS MEM Q2H PRN PRN Reason: Sore Throat Last Admin: 03/05/23 06:30 Dose: 1 lozenge Benztropine Mesylate (Benztropine Mesylate 0.5 Mg Tablet) 0.5 mg PO BID [facility] Last Admin: 03/05/23 08:22 Dose: 0.5 mg Capsaicin (Capsaicin 0.025% Cream 60 Gm Tube) 1 appl TOPICAL TID PRN; Protocol PRN Reason: Pain, Moderate(Pain Scale 4-6) Last Admin: 02/28/23 09:19 Dose: 1 appl Dextrose (Dextrose 50 % 25 Gm/50 Ml Syringe) 25 gm IVPUSH Q15M PRN; Protocol PRN Reason: per Hypoglycemia Standing Ord. Docusate Sodium (Docusate Sodium 100 Mg Capsule) 200 mg PO BID [facility] Last Admin: 03/05/23 08:23 Dose: 200 mg Ferrous Sulfate (Ferrous Sulfate 324 Mg Tablet.Dr) 324 mg PO Q48H [facility] Last Admin: 03/03/23 21:40 Dose: 324 mg Fluticasone Propionate (Fluticasone Propionate Nasal 16 Gm [place]) 1 spray NOSTRIL-B DAILY [facility] Last Admin: 03/05/23 08:45 Dose: 1 spray Gabapentin (Gabapentin 400 Mg Capsule) 400 mg PO TID [facility] Last Admin: 03/05/23 08:22 Dose: 400 mg Glucose (Glucose Gel 15 Gm Gel..Gram.) 15 gm PO Q15M PRN; Protocol PRN Reason: per Hypoglycemia Standing Ord. Haloperidol (Haloperidol 5 Mg Tablet) 5 mg PO DAILY [facility] Last Admin: 03/05/23 08:22 Dose: 5 mg Haloperidol (Haloperidol 5 Mg Tablet) 15 mg PO BEDTIME [facility] Last Admin: 03/04/23 21:28 Dose: 15 mg Hydroxyzine HCl (Hydroxyzine Hcl 50 Mg Tablet) 50 mg PO Q6H PRN PRN Reason: Anxiety Last Admin: 03/05/23 10:47 Dose: 50 mg Insulin Human Lispro (Insulin Lispro 100 Unit/Ml 3 Ml Vial) 0 unit SUBCUT QIDACHS [facility]; Protocol Last Admin: 03/05/23 08:25 Dose: Not Given [place] Carbonate ([place] Carbonate Er 300 Mg Tablet.Er) 600 mg PO BID [facility] Last Admin: 03/05/23 08:22 Dose: 600 mg Loratadine (Loratadine 10 Mg Tablet) 10 mg PO DAILY [facility] Last Admin: 03/05/23 08:22 Dose: 10 mg Magnesium Hydroxide (Milk Of Magnesia 30 Ml Oral.Susp) 30 ml PO DAILY PRN PRN Reason: Constipation Last Admin: 03/03/23 13:05 Dose: 30 ml Metformin HCl (Metformin Hcl Er 500 Mg Tab.Er.24h) 500 mg PO BEDTIME [facility] Last Admin: 03/04/23 21:30 Dose: 500 mg Multi-Ingred Cream/Lotion/Oil/Oint (Mineral Oil/Petrolatum,White 106 Gm Tube) 1 appl TOPICAL BID PRN; Protocol PRN Reason: Dry skin Multivitamins/Vitamin C (Multivitamin Tablet) 1 tab PO DAILY [facility] Last Admin: 03/05/23 08:22 Dose: 1 tab Omeprazole (Omeprazole 20 Mg Capsule.Dr) 20 mg PO DAILY@0630 [facility] Last Admin: 03/05/23 06:30 Dose: 20 mg Ondansetron HCl (Ondansetron Odt 4 Mg Tab.Rapdis) 4 mg TRANSLINGU Q6H PRN PRN Reason: Nausea Last Admin: 03/03/23 03:43 Dose: 4 mg Ondansetron HCl (Ondansetron Odt 4 Mg Tab.Rapdis) 4 mg TRANSLINGU Q8H PRN PRN Reason: Nausea and Vomiting Prazosin HCl (Prazosin Hcl 5 Mg Capsule) 5 mg PO BEDTIME [facility]; Protocol Last Admin: 03/04/23 21:30 Dose: 5 mg Pseudoephedrine HCl (Pseudoephedrine Hcl 30 Mg Tablet) 30 mg PO Q6H PRN PRN Reason: nasal congestion Last Admin: 03/03/23 21:46 Dose: 30 mg Sertraline HCl (Sertraline Hcl 100 Mg Tablet) 100 mg PO DAILY [facility] Last Admin: 03/05/23 08:22 Dose: 100 mg Trazodone HCl (Trazodone Hcl 50 Mg Tablet) 50 mg PO BEDTIME MRX1 PRN PRN Reason: Insomnia Last Admin: 03/04/23 23:50 Dose: 50 mg Trazodone HCl (Trazodone Hcl 50 Mg Tablet) 150 mg PO BEDTIME [facility]WIGE Last Admin: 03/04/23 21:27 Dose: 150 mg Venlafaxine HCl (Venlafaxine Hcl Er 150 Mg Cap.Er.24h) 150 mg PO DAILY [facility] Last Admin: 03/05/23 08:22 Dose: 150 mg Allergies Allergies Allergy/AdvReac Type Severity Reaction Status Date / Time lisinopril Allergy Unknown Cough Verified 12/15/22 18:44 clonidine AdvReac Unknown Unknown Verified 11/19/22 16:28 Assessment & Plan Assessment & Plan (1) Schizoaffective disorder: Status: Acute Code(s): F25.9 - Schizoaffective disorder, unspecified (2) Gastrointestinal complaint: Status: Acute Code(s): R19.8 - Other specified symptoms and signs involving the digestive system and abdomen Assessment and Plan: Nausea/Vomiting: N/V, NBNB emesis x 24 hours w/ intermittent loose stools, no hx of fever, chills, hematemesis, melena, hematochezia. VS wnl on exam, tolerating liquids and some solids this morning. No recent new medications since admission or as outpatient. DDx: Acute gastroenteritis/CHES/Gastroparesis Plan: -will change diet to liquids- may resume reg diet if symptom improves over the next 24-48 hours -encourage PO hydration if tolerating -prn zofran, will consider transition to reglan -cbc/bmp in am 01/03/2024 -GI panel ordered DM--continue home Metformin, SSI, HTN-well controlled, continue home Amlodipine GERD- continue PPI Schizophrenia/mood desorder, managment per Psych Neuropathy: continue home gabapentin Plan 02/28: restart home medications regimen. 03/01: appears manic. check lithium level in 5 days. continue current mgmt. 03/02: c/o URI Sx, also vomiting and diarrhea for 5 days. now says blood in vomit for past 2 days. c/o nightmares, prazosin increased to 4 mg QHS. checking labs tonight. 03/03: liquid diet for recent n/v, advance as tolerated. increase prazosin to 5 mg QHS for nightmares and insomnia. recheck lithium monday morning and adjust accordingly. 03/04/23: Continue current regimen and plans 03/05/2023: Continue current regimen and plans Reason for continued inpatient stay Substantial Risk for: med/psych decompensation Time Spent With Patient Time: Total time managing care of this patient today ____ minutes.
[2023-03-05 12:25] LABS: Glucose, Whole Blood 80 mg/dL (60-115)
--- NOTE | 2023-03-05 14:50 | PC.NURSE ---
Pt remains on contact precautions for Norovirus. Pts last loose stool, nausea, or vomiting was 03/02/23. Pt reports feeling better, VSS. Infection control notified. Pt to remain on precautions and be seen by IC Monday 03/06. Pt using Ipad and portable phone. Pts mood is bright with a congruent affect. Pt able to shower, eating 100% of liquid diet.
[2023-03-05] MEDS: Acetaminophen 325 MG TABLET 650 MG PO (16:19)
[2023-03-05 17:26] LABS: Glucose, Whole Blood 104 mg/dL (60-115)
[2023-03-05 20:50] VITALS: BP 137/81; PULSE 84; RESP 16; TEMP 36.6; O2SAT 99
[2023-03-05] MEDS: HaloperidoL 5 MG TABLET 15 MG PO (21:28)
[2023-03-05] MEDS: traZODone HCL 50 MG TABLET 150 MG PO (21:29)
[2023-03-05] MEDS: Ferrous Sulfate 324 MG TABLET.DR PO (21:30)
[2023-03-05] MEDS: metFORMIN HCl ER 500 MG TAB.ER.24H PO (21:30)
[2023-03-05] MEDS: Prazosin HCL 5 MG CAPSULE PO (21:30)
[2023-03-05 21:40] LABS: Glucose, Whole Blood 102 mg/dL (60-115)
[2023-03-06] MEDS: Omeprazole 20 MG CAPSULE.DR PO (06:41)
[2023-03-06 08:12] LABS: Glucose, Whole Blood 84 mg/dL (60-115)
[2023-03-06 08:20] VITALS: BP 156/90; PULSE 70; RESP 16; TEMP 36.3; O2SAT 99
[2023-03-06] MEDS: Lithium Carbonate ER 300 MG TABLET.ER 600 MG PO ×2 (08:31→21:16)
[2023-03-06] MEDS: Loratadine 10 MG TABLET PO (08:31)
[2023-03-06] MEDS: amLODIPine Besylate 2.5 MG TABLET 7.5 MG PO (08:31)
[2023-03-06] MEDS: Sertraline HCL 100 MG TABLET PO (08:32)
[2023-03-06] MEDS: Gabapentin 400 MG CAPSULE PO ×3 (08:32→21:17)
[2023-03-06] MEDS: HaloperidoL 5 MG TABLET PO (08:32)
[2023-03-06] MEDS: Benztropine Mesylate 0.5 MG TABLET PO ×2 (08:32→21:17)
[2023-03-06] MEDS: Venlafaxine HCl ER 150 MG CAP.ER.24H PO (08:32)
[2023-03-06] MEDS: Multivitamin TABLET 1 TAB PO (08:33)
[2023-03-06] MEDS: Docusate Sodium 100 MG CAPSULE 200 MG PO ×2 (08:33→21:16)
[2023-03-06] MEDS: Fluticasone Propionate Nasal 16 GM SPRAY 1 SPRAY NOSTRIL-B (08:38)
[2023-03-06] MEDS: Throat Lozenge, Medicated LOZENGE 1 LOZENGE MUCOUS MEM (08:40)
[2023-03-06 12:32] LABS: Glucose, Whole Blood 104 mg/dL (60-115)
[2023-03-06] MEDS: Acetaminophen 325 MG TABLET 650 MG PO (14:48)
--- NOTE | 2023-03-06 17:02 | P.PNPSI_ITS ---
Subjective Subjective Date of Service: 03/06/23 Reason For Visit: Psych Subjective Notes: Conditional Voluntary Interim History: Patient was seen and discussed in rounds today. The patient has been in isolation generally cooperative. Mood somewhat expansive when seen not psychotic or agitated no GI symptoms x3 days No c/o side effects Medication Compliance: Yes Mental Status Exam Mental Status Exam Narrative: Appearance: wearing casual clothing, good hygiene, in NAD Psychomotor: no PMA/PMR Speech: clear, nml rate. nml loudness, incr amount. TP: linear TC: concerns re health . Mood: not assessed Affect: flexible, normo-intense, non-labile SI: none expressed HI: none expressed VH/AH: none expressed Insight/judgment: impaired x 2 Diagnostics Vital Signs (24Hr): Vital Signs - 24 hr 03/05/23 20:50 03/06/23 08:20 Temperature 98 F 97.3 F Pulse Rate 84 70 Respiratory Rate 16 16 Blood Pressure 137/81 156/90 H Pulse Oximetry 99 99 Oxygen Delivery Method Room Air Room Air BMI result Body Mass Index 43.4 Labs 03/04/23 07:39 03/05/23 08:04 Labs: Laboratory Results - last 48 hr 03/04/23 03/04/23 03/05/23 17:37 21:25 07:38 Sodium Potassium Chloride Carbon Dioxide Anion Gap BUN Creatinine Estim Creat Clear Calc Estimated GFR POC Glucose 95 91 90 Random Glucose Calcium [place] 03/05/23 03/05/23 03/05/23 08:04 12:20 17:21 Sodium 139 Potassium 3.9 Chloride 103 Carbon Dioxide 27 Anion Gap 13 BUN 11 Creatinine 1.05 Estim Creat Clear Calc 130.1 Estimated GFR > 60 POC Glucose 80 104 Random Glucose 93 Calcium 9.4 [place] 0.53 L 03/05/23 03/06/23 03/06/23 21:26 08:05 12:27 Sodium Potassium Chloride Carbon Dioxide Anion Gap BUN Creatinine Estim Creat Clear Calc Estimated GFR POC Glucose 102 84 104 Random Glucose Calcium [place] Medications Medications Current Medications Acetaminophen (Acetaminophen 325 Mg Tablet) 650 mg PO Q6H PRN PRN Reason: Headache/Pain Mild Scale (1-3) Last Admin: 03/06/23 14:48 Dose: 650 mg Al Hydroxide/Mg Hydroxide (Magnesium Hydrox/Alum Hydrox 30 Ml Oral.Susp) 30 ml PO Q6H PRN PRN Reason: Heartburn/Nausea Last Admin: 02/28/23 20:35 Dose: 30 ml Amlodipine Besylate (Amlodipine Besylate 2.5 Mg Tablet) 7.5 mg PO DAILY [facility]; Protocol Last Admin: 03/06/23 08:31 Dose: 7.5 mg Benzocaine (Throat Lozenge, Medicated Lozenge) 1 lozenge MUCOUS MEM Q2H PRN PRN Reason: Sore Throat Last Admin: 03/06/23 08:40 Dose: 1 lozenge Benztropine Mesylate (Benztropine Mesylate 0.5 Mg Tablet) 0.5 mg PO BID [facility] Last Admin: 03/06/23 08:32 Dose: 0.5 mg Capsaicin (Capsaicin 0.025% Cream 60 Gm Tube) 1 appl TOPICAL TID PRN; Protocol PRN Reason: Pain, Moderate(Pain Scale 4-6) Last Admin: 02/28/23 09:19 Dose: 1 appl Dextrose (Dextrose 50 % 25 Gm/50 Ml Syringe) 25 gm IVPUSH Q15M PRN; Protocol PRN Reason: per Hypoglycemia Standing Ord. Docusate Sodium (Docusate Sodium 100 Mg Capsule) 200 mg PO BID [facility] Last Admin: 03/06/23 08:33 Dose: 200 mg Ferrous Sulfate (Ferrous Sulfate 324 Mg Tablet.Dr) 324 mg PO Q48H [facility] Last Admin: 03/05/23 21:30 Dose: 324 mg Fluticasone Propionate (Fluticasone Propionate Nasal 16 Gm [place]) 1 spray NOSTRIL-B DAILY [facility] Last Admin: 03/06/23 08:38 Dose: 1 spray Gabapentin (Gabapentin 400 Mg Capsule) 400 mg PO TID [facility] Last Admin: 03/06/23 14:42 Dose: 400 mg Glucose (Glucose Gel 15 Gm Gel..Gram.) 15 gm PO Q15M PRN; Protocol PRN Reason: per Hypoglycemia Standing Ord. Haloperidol (Haloperidol 5 Mg Tablet) 5 mg PO DAILY [facility] Last Admin: 03/06/23 08:32 Dose: 5 mg Haloperidol (Haloperidol 5 Mg Tablet) 15 mg PO BEDTIME [facility] Last Admin: 03/05/23 21:28 Dose: 15 mg Hydroxyzine HCl (Hydroxyzine Hcl 50 Mg Tablet) 50 mg PO Q6H PRN PRN Reason: Anxiety Last Admin: 03/05/23 10:47 Dose: 50 mg Insulin Human Lispro (Insulin Lispro 100 Unit/Ml 3 Ml Vial) 0 unit SUBCUT QIDACHS [facility]; Protocol Last Admin: 03/06/23 12:31 Dose: Not Given [place] Carbonate ([place] Carbonate Er 300 Mg Tablet.Er) 600 mg PO BID [facility] Last Admin: 03/06/23 08:31 Dose: 600 mg Loratadine (Loratadine 10 Mg Tablet) 10 mg PO DAILY [facility] Last Admin: 03/06/23 08:31 Dose: 10 mg Magnesium Hydroxide (Milk Of Magnesia 30 Ml Oral.Susp) 30 ml PO DAILY PRN PRN Reason: Constipation Last Admin: 03/03/23 13:05 Dose: 30 ml Metformin HCl (Metformin Hcl Er 500 Mg Tab.Er.24h) 500 mg PO BEDTIME [facility] Last Admin: 03/05/23 21:30 Dose: 500 mg Multi-Ingred Cream/Lotion/Oil/Oint (Mineral Oil/Petrolatum,White 106 Gm Tube) 1 appl TOPICAL BID PRN; Protocol PRN Reason: Dry skin Multivitamins/Vitamin C (Multivitamin Tablet) 1 tab PO DAILY [facility] Last Admin: 03/06/23 08:33 Dose: 1 tab Omeprazole (Omeprazole 20 Mg Capsule.Dr) 20 mg PO DAILY@0630 [facility] Last Admin: 03/06/23 06:41 Dose: 20 mg Ondansetron HCl (Ondansetron Odt 4 Mg Tab.Rapdis) 4 mg TRANSLINGU Q6H PRN PRN Reason: Nausea Last Admin: 03/03/23 03:43 Dose: 4 mg Ondansetron HCl (Ondansetron Odt 4 Mg Tab.Rapdis) 4 mg TRANSLINGU Q8H PRN PRN Reason: Nausea and Vomiting Prazosin HCl (Prazosin Hcl 5 Mg Capsule) 5 mg PO BEDTIME [facility]; Protocol Last Admin: 03/05/23 21:30 Dose: 5 mg Pseudoephedrine HCl (Pseudoephedrine Hcl 30 Mg Tablet) 30 mg PO Q6H PRN PRN Reason: nasal congestion Last Admin: 03/03/23 21:46 Dose: 30 mg Sertraline HCl (Sertraline Hcl 100 Mg Tablet) 100 mg PO DAILY [facility] Last Admin: 03/06/23 08:32 Dose: 100 mg Trazodone HCl (Trazodone Hcl 50 Mg Tablet) 50 mg PO BEDTIME MRX1 PRN PRN Reason: Insomnia Last Admin: 03/04/23 23:50 Dose: 50 mg Trazodone HCl (Trazodone Hcl 50 Mg Tablet) 150 mg PO BEDTIME [facility] Last Admin: 03/05/23 21:29 Dose: 150 mg Venlafaxine HCl (Venlafaxine Hcl Er 150 Mg Cap.Er.24h) 150 mg PO DAILY [facility] Last Admin: 03/06/23 08:32 Dose: 150 mg Allergies Allergies Allergy/AdvReac Type Severity Reaction Status Date / Time lisinopril Allergy Unknown Cough Verified 12/15/22 18:44 clonidine AdvReac Unknown Unknown Verified 11/19/22 16:28 Assessment & Plan Assessment & Plan (1) Schizoaffective disorder: Status: Acute Code(s): F25.9 - Schizoaffective disorder, unspecified Assessment and Plan: pt stabilizing cont haldol lithium ? d/c stability LL.56 no GI sx x 3 days (2) Gastrointestinal complaint: Status: Acute Code(s): R19.8 - Other specified symptoms and signs involving the digestive system and abdomen Assessment and Plan: Nausea/Vomiting: N/V, NBNB emesis x 24 hours w/ intermittent loose stools, no hx of fever, chills, hematemesis, melena, hematochezia. VS wnl on exam, tolerating liquids and some solids this morning. No recent new medications since admission or as outpatient. DDx: Acute gastroenteritis/CHES/Gastroparesis Plan: -will change diet to liquids- may resume reg diet if symptom improves over the next 24-48 hours -encourage PO hydration if tolerating -prn zofran, will consider transition to reglan -cbc/bmp in am 01/03/2024 -GI panel ordered DM--continue home Metformin, SSI, HTN-well controlled, continue home Amlodipine GERD- continue PPI Schizophrenia/mood desorder, managment per Psych Neuropathy: continue home gabapentin Plan 02/28: restart home medications regimen. 03/01: appears manic. check lithium level in 5 days. continue current mgmt. 03/02: c/o URI Sx, also vomiting and diarrhea for 5 days. now says blood in vomit for past 2 days. c/o nightmares, prazosin increased to 4 mg QHS. checking labs tonight. 03/03: liquid diet for recent n/v, advance as tolerated. increase prazosin to 5 mg QHS for nightmares and insomnia. recheck lithium monday morning and adjust accordingly. 03/04/23: Continue current regimen and plans 03/05/2023: Continue current regimen and plans Reason for continued inpatient stay Substantial Risk for: inability to function and rapid decompensation Time Spent With Patient Time: Total time managing care of this patient today ____ minutes.
[2023-03-06 17:58] LABS: Glucose, Whole Blood 110 mg/dL (60-115)
[2023-03-06 21:00] VITALS: BP 136/75; PULSE 90; RESP 16; TEMP 36.6; O2SAT 97
[2023-03-06 21:12] LABS: Glucose, Whole Blood 116 mg/dL (60-115)
[2023-03-06] MEDS: HaloperidoL 5 MG TABLET 15 MG PO (21:17)
[2023-03-06] MEDS: traZODone HCL 50 MG TABLET 150 MG PO (21:17)
[2023-03-06] MEDS: Prazosin HCL 5 MG CAPSULE PO (21:17)
[2023-03-06] MEDS: metFORMIN HCl ER 500 MG TAB.ER.24H PO (21:17)
[2023-03-07 07:55] VITALS: BP 143/86; PULSE 74; RESP 16; TEMP 36.2; O2SAT 98
[2023-03-07] MEDS: Lithium Carbonate ER 300 MG TABLET.ER 600 MG PO (08:31)
[2023-03-07] MEDS: Loratadine 10 MG TABLET PO (08:31)
[2023-03-07] MEDS: Sertraline HCL 100 MG TABLET PO (08:31)
[2023-03-07] MEDS: Docusate Sodium 100 MG CAPSULE 200 MG PO (08:31)
[2023-03-07] MEDS: Venlafaxine HCl ER 150 MG CAP.ER.24H PO (08:31)
[2023-03-07] MEDS: Benztropine Mesylate 0.5 MG TABLET PO (08:32)
[2023-03-07] MEDS: Gabapentin 400 MG CAPSULE PO (08:32)
[2023-03-07] MEDS: HaloperidoL 5 MG TABLET PO (08:32)
[2023-03-07] MEDS: Omeprazole 20 MG CAPSULE.DR PO (08:32)
[2023-03-07] MEDS: Multivitamin TABLET 1 TAB PO (08:33)
[2023-03-07] MEDS: amLODIPine Besylate 2.5 MG TABLET 7.5 MG PO (08:33)
[2023-03-07] MEDS: Fluticasone Propionate Nasal 16 GM SPRAY 1 SPRAY NOSTRIL-B (08:34)
[2023-03-07] MEDS: Throat Lozenge, Medicated LOZENGE 1 LOZENGE MUCOUS MEM (08:39)
[2023-03-07 08:42] LABS: Glucose, Whole Blood 97 mg/dL (60-115)
--- NOTE | 2023-03-07 22:17 | PM.PSYDC ---
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 Discharge Date/Time: 03/07/23 11:55
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
== END 2023-03-07 11:55 | disposition home or self-care (01) | DRG 885 ==
PROVIDERS: Physician Assistant Medical; Psychiatry & Neurology Psychiatry; Admitting Provider Psychiatry & Neurology Psychiatry; Visit Provider Psychiatry & Neurology Psychiatry
DX: F25.9 Schizoaffective disorder, unspecified (principal); R45.851 Suicidal ideations; I10 Essential (primary) hypertension; R11.2 Nausea with vomiting, unspecified; E11.40 Type 2 diabetes mellitus with diabetic neuropathy, unspecified; K21.9 Gastro-esophageal reflux disease without esophagitis; L84 Corns and callosities; Z20.822 Contact with and (suspected) exposure to COVID-19; Z91.148 Patient's other noncompliance with medication regimen for other reason; Z79.51 Long term (current) use of inhaled steroids; Z79.84 Long term (current) use of oral hypoglycemic drugs; Z79.899 Other long term (current) drug therapy
CPT/HCPCS: 0241U; 36415; 80048; 80053; 80061; 80178; 82947; 85007; 85025; 85027; 87507

== ENCOUNTER → 2023-02-27 19:05 | Outpatient (BNV) | payer OTHER, SELFPAY | PROVIDERS: Admitting Provider Psychiatry & Neurology Psychiatry; Visit Provider Psychiatry & Neurology Psychiatry | DX: F25.1 Schizoaffective disorder, depressive type (principal); R19.8 Other specified symptoms and signs involving the digestive system and abdomen | CPT/HCPCS: 90792; 99231; 99232; 99238 ==

== ENCOUNTER → 2023-02-27 19:05 | Outpatient (BNV) | payer OTHER, SELFPAY | PROVIDERS: Admitting Provider Psychiatry & Neurology Psychiatry; Visit Provider Psychiatry & Neurology Psychiatry | DX: F25.1 Schizoaffective disorder, depressive type (principal); R19.8 Other specified symptoms and signs involving the digestive system and abdomen | CPT/HCPCS: 99231; 99238 ==

== ENCOUNTER → 2023-02-27 19:05 | Outpatient (BNV) | payer OTHER, SELFPAY | PROVIDERS: Admitting Provider Psychiatry & Neurology Psychiatry; Visit Provider Internal Medicine | DX: I10 Essential (primary) hypertension (principal); E11.9 Type 2 diabetes mellitus without complications | CPT/HCPCS: 99222; 99499 ==

== ENCOUNTER 2023-03-22 17:13 | Inpatient (IN) | payer OTHER, SELFPAY ==
--- OUTSIDE RECORDS SUMMARY | 2023-03-22 17:18 | XMS_ITS | Continuity of Care Document ---
Author Name Unknown Organization [facility] ter Address [address] [place] [id number]- Care Team Providers Care Three Knife Trimmer Name Role Phone Lamine Lin MD Primary Care Physician [phone] Encounter [facility] Date(s): 03/09/23 - 03/11/[address] [address]- Encounter Diagnosis Suicide ideation(Final) - 03/10/23 Hypertension(Final) - 03/10/23 Depression(Final) - 03/10/23 Obesity(Final) - 03/10/23 Discharge Disposition: Transfer to Psych Facility Attending Physician: Sharon Ro MD Admitting Physician: Sharon Ro MD Referring Physician: Not on Staff, Referring [...] virus vaccine, inactivated 2 12/30/10 Gi annia [id number] 12y+ bivalent booster vax 02/07/22 Given SARS-CoV-2 [...] 4 Refills, Maintenance, 02/23/23 13:37:00 EST, Tablet, [facility], [facility] [id number], discontinue amlodipine 2.5 mg daily. replace with [...] 4 Refills, Maintenance, 02/23/23 13:53:00 EST, Gel, [facility] [id number], Partial fill... Start Date: 02/23/23 Status: Ordered docusate sodium 100 mg oral capsule 1 capsule, By Mouth, Daily, # 30 each, 1 Refills, Maintenance, 06/06/22 16:49:00 EDT, [facility] [id number], 178, cm, 06/06/22 16:31:00 EDT, Height, 101.4, kg, 01/12/22 14:14:00 EST, Dry Weight Start Date: 06/06/22 Status: Ordered Flonase 50 mcg/inh nasal spray 2 sprays = 100 mcg, Nares, Both, Daily in AM, # 3 each, 3 Refills, Maintenance, 02/23/23 13:39:00 EST, [place], [facility] [id number], Partial fill upon patient request if the prescription is for a schedule II opioid drug., 2 sp... Start Date: 02/23/23 Status: Ordered folic acid 1 mg oral tablet 1, tablet, By Mouth, Daily, # 30 tablet, Refills 5, Tot. Refills 5, Maintenance, 06/06/22 16:49:00 EDT, Route to Pharmacy Electronically, [place], [place] - [id number], 178, cm, 06/06/22 16:31:00 EDT, Height, 101.4, [...] 02/23/23 13:39:00 EST, Route to Pharmacy Electronically, [place], [place] - [id number], 178, cm, 02/23/23 13:19:00 EST, Height, 114, kg, 01/08/23... Start Date: 02/23/23 Status: Ordered metFORMIN 500 mg oral tablet, extended release 2 tablet = 1,000 mg, By Mouth, 2 times a day, 1 tab daily x 1 week then 1 tab BID x 1 week then 2 tabs BID, # 120 tablet, 4 Refills, Maintenance, 02/23/23 13:34:00 EST, ER Tablet, [place], [place] - [id number], Partial fill upon patie... Start Date: 02/23/23 [...] opioid drug. Start Date: 11/20/22 Status: Ordered prazosin 5 mg oral capsule 5 mg, Capsule, By Mouth, 03/10/23 21:00:00 EST Start Date: 03/10/23 Stop Date: 03/10/23 Status: Completed risperiDONE 2 mg oral tablet 2 mg, [...] Confirmed Active Knee pain, bilateral Confirmed Active [facility]/CCA/Proof Machine Operator-Tia [facility] [phone]/Health alf, active care coordination Confirmed Active Severe obesity [...] 3 Oxygen Saturation [94-100 %] 100 % (03/10/23 9:31 PM) 100 % (03/10/23 3:57 PM) 100 % (03/10/23 8:24 AM) Pulse Rate [55-90 bpm] 108 bpm *H* (03/10/23 9:31 PM) 68 bpm (03/10/23 3:57 PM) 91 bpm *H* (03/10/23 8:24 AM) Blood Pressure [90-138/55-84 mm Hg] 147/92mm Hg *H* (03/10/23 9:31 PM) 152/98mm Hg *H* (03/10/23 8:20 PM) 148/98mm Hg *H* (03/10/23 3:57 PM) Respiratory Rate [16-30 br/min] 16 br/min (03/10/23 3:57 PM) 16 br/min (03/10/23 8:24 AM) 18 br/min (03/09/23 10:54 PM) Temperature [96.8-100.4 DegF] 99.1 DegF (03/10/23 9:31 PM) 97.9 DegF (03/10/23 3:57 PM) 98.4 DegF (03/10/23 8:24 AM) Mode of Delivery (Oxygen) Room air (03/10/23 3:57 PM) Room air (03/10/23 8:24 AM) Room air (03/09/23 10:54 PM) Blood pressure sites Arm, left (03/10/23 9:31 PM) Arm, right (03/10/23 3:57 PM) Arm, right (03/10/23 8:24 AM) Temperature Route Oral (03/10/23 3:57 PM) Oral (03/10/23 8:24 AM) Oral (03/09/23 10:54 PM) Social History Social History Type Response Smoking Status Never smoker entered on: 10/02/13 Sex Male [facility], MODIFY, MODIFY Event Display: Laboratory Results Scanned Authored Date: [id number] Patient: ??FIDELPEDRO PABLOCarlos JARRETTSTEF ? Age:??32 Years?Sex:??Male?:??1990?? Date/Time when patient??is able to participate in evaluation: 03/10/2023 2:15am Date/Time of Start of Evaluation: 03/10/2023 10:00am Date/Time of End of Evaluation: 03/10/2023 1:00pm ? Demographics: ?? Preferred Name: Stef ?? Gender:?Male?? Preferred Pronouns (he/him, she/her, they/them, etc): He/ Him ?? Preferred Language(s): Sri Lankan ?Needs an asl interpreter?:No?? Communication barriers???None ? Name and contact information for Legal Guardian, Rep Payee or Conservatorship (if applicable):?N/A ?? Rushing Order start/expiration date (if applicable):???N/A ? [address] [address] [place] [address] [place] [id number] ? Primary Insurance: CCA ?Policy #: [id number] Secondary??Insurance: ?Policy #: ? Presenting Concerns (in Person's/Family's Own Words): ?? Referral source(s) (Emergency Department, self, friends/family, police, court, alf/facility,outpatient provider, outside agency/program,??DCF, etc.):??Self ?? Patient's Legal Status:??Voluntary ? Reason for referral:??SI with plan ? What occurred to cause the person to seek services now (Note precipitating events, symptoms, behavioral and functioning needs): Stef presented to??[facility] Emergency Department via EMS secondary to suicidal ideation with plan to commit suicide with a knife. He called EMS as he did not feel safe and continued to present with SI throughout today's assessment. Stef??is very familiar to [facility] and was last seen on February 25 for a similar presentation but he did not have active SI with a plan so he was discharged back to the community??to continue with his outpatient services. He states that he has had increaseddepression over the past few days??and??decided to seek help as he felt it was continuing to get worse.??After being cleared by medical, Stef was referred to??crisis for further evaluation. ? Living Situation: ?? What is the person's living situation:??Rent ?? Residential Care/Treatment Facility:??_??N/A ?? At risk of losing current housing???No ?? Satisfied with current living situation? ??Yes ?? Primary caregiver(s) (self, family, friends, supportive staff)? Self ?? Comments (include environmental surroundings and neighborhood description):? Stef reports that he lives in an apartment by himself. He identifies??housing as safe, stable and??states that he will return home upon discharge.? Individual/Family History: ?? Individual/Family history and relationship, parental/familial bank manager obligations:? Per prior evaluation, Stef stated he was raised with his parents in [place] and they both diedwhen he was young. He stated he was raised by his aunt??with his cousin who was supportive. Stef stated he has a half sister.??Stef stated he is single and has no children. He stated he graduated high school in [place], [place]??and has no current family support.? Pertinent??medical/developmental history and status (include medical needs, mobility/vision/hearingimpairments,??etc.): Per [facility] Records, Stef has a history of??Asthma, type 2 - diabetes (NIDDM),?? hypertension (HTN), sleep apnea. Stef often times disengages and mutes himself' when engaging with providers. ?? Does the individual utilize DME (CPAP,??O2, walker, wheelchair, cane, etc): Denies ?? Pertinent family medical,??mental health??and??substance use??history:? Stef reported that he has a??history of schizophrenia and mental health issues on both sides of his family.? Social Support: ?? Identified [place]/Social/Peer Support Relationships, Pets, other: Stef reports that his main supports are his outpatient providers through [facility].? Latter-Day/Spirituality and Cultural/Ethnic information:??Unknown? Collateral Contacts: (name, relationship, number, and collateral info if contacted): ?? Guardian: N/A ?? Family: No family was contacted during today's assessment as Stef reports that he does not have anyone we can contact. He has an emergency contact listed but requests we do not contact her unless it is a medical emergency. ?? Social Supports/Outpatient Providers (therapist, psychiatrist, case management, DCF, DMH, DDS, Community Supports/Self Help Groups, refinery operator light ends recovery, MAT, NA, SMART, MEGHNA, Peer Support, etc.): [facility] relationship advisor Lainey Parks -??[phone] Espinal - [phone] glueline worker Michaela Montaño -??work # [phone] Outreach supervisor wood crew Andreas??Khoa -??[phone] [facility] - [phone] ?? [facility] Provider: Dr. Shmuel Klein ?? Other:?[facility] ? Legal History: ?? Does the person have a history of, or current involvement with the legal system (i.e., legal charges)???None Reported ? if yes, explain (include if recent vs remote hx): Denies any current or historical legal issues. ? Education: ?? Highest level of education achieved:??High School Graduate ? Comments:?Received high school diploma. ? Employment and Meaningful Activities: ?? Employment Status:??Unemployed ?Comments/Interests:? Income/Financial Support: ?? How does the person describe current financial situation:??Occasional struggle with finances ?Comments:? Do you receive any source of financial assistance?[X] SSI?[_] SSDI?[X] Food Lejunior?[_] Child Support?[_] Contributions from family/friends ?[_] Disability?[_] Veterans Benefits?[_] TAFDC?[_] EAEDC?Other: _ ?? If yes, type and amount:? Service:?None Reported?(if none reported, skip to the substance use/addictive behavior history section) ?? Status:??_??N/A ? Date/Circumstances of Discharge (Honorable, general, bad conduct, dishonorable, other): N/A ? Is the person connected with [facility] (include details if applicable)???_??N/A ? Addictive Behavior and Substance Abuse History: ?? Does person report a history of or current substance use or other addictive behavior concerns (i.e.alcohol, tobacco, gambling, food)???Yes?If yes, list??recent/historical use, frequency of use, method of administration, amount, age of first use,??and date of last use:?Stef??reports that he smokes Cannabis more often recently and denies any other current or historical substance use. UTOX was positive for??Cannabis.? In what scenarios is the individual typically using substances (socially, symptom management, focus, sleep, forget problems, dependence, etc.)? Stef reports that he uses Cannabis to relax. ?? Does the person have a history??of or are they currently misusing prescribed medications (if yes, explain)???None Reported ? Does the??person see their substance use as a problem (include pertinent??details)???No ? Substance use readiness to change???Pre-contemplative Stef states that he is not looking to cease his Cannabis use. ? Mental Health and Addiction Treatment History: ?? Name of facility/program, type of service/level of care, date of service, reason,??and if??the service was completed (IPLOC, PHP, CCS, ATS, etc.): Stef has a long history of inpatient psychiatric admissions with his most recent being in [facility] in November of 2022. ?? If the individual does not have outpatient services, are they interested in connecting with services???Other, explain Stef has wrap around services through [facility]. ?? Efficacy of past and current treatment (patient perspective, patterns, follow up with aftercare):? Stef has a history of being treatment compliant but often utilizing the emergency department as a first resort instead of outpatient resources.? Psychiatric History (including past diagnoses, history of suicide attempts/ideations, hx of head banging, disordered eating, sexualized behaviors, etc):? Records indicate??Stef has a diagnosis of schizoaffective disorder and major depressive disorder ?? Does the individual have a history of??suicide attempt(s) in the past year???Yes ? If yes, include details: Stef stated I have had a lot since the last time I saw you . Of note, this was February??. Stef would not disclose what means he took to end his life and states that he??did not receive any medical attention. ? Prescriptions/Home Medications Amlodipine-Olmesartan (amlodipine-olmesartan 5 mg-20 mg oral tablet) ?1 tablet , By Mouth , Daily ?? Benztropine (benztropine 1 mg oral tablet) ?0.5 tablet , By Mouth , 2 times a day ?? Diclofenac Topical (diclofenac 1% topical gel) ?1 application , Topically , 4 times a day , 2g per application on elbow, wrist or hand; 4g per application on knee ankle or foot. ?? Docusate (docusate sodium 100 mg oral capsule) ?1 capsule , By Mouth , Daily ?? Durable Medical Equipment (BP machine) ?See Instructions , Dx: HTN [id number]: lifetime ?? Durable Medical Equipment (Freestyle Lite Lancets) ?See Instructions , TID AC and qHS, E11.65 ?? Durable Medical Equipment (Freestyle Lite Monitor) ?See Instructions for 30 days , use as directed to check glucose daily for Type 2 DiabetesMellitus, E11.9 ?? Durable Medical Equipment (Freestyle Lite Test Strips) ?See Instructions , Check POC daily and if symptoms of sweats, dizziness, confusion, DX E11.9 ?? Durable Medical Equipment (LARGE Blood pressure monitor) ?See Instructions , Use as directed to check blood pressure 2x/wk about 2 hours after taking BP meds. Dx: HTN I10; Duration: Lifetime ?? Durable Medical Equipment (Sleep pillow for snoring) ?See Instructions , Dx: Sleep apnea G47.33duration: lifetime ?? Fluticasone Nasal (Flonase 50 mcg/inh nasal spray) ?2 sprays , Nares, Both , Daily in AM ?? Folic Acid (folic acid 1 mg oral tablet) ?1 tablet , By Mouth , Daily ?? Gabapentin (gabapentin 100 mg oral capsule) ?1 capsule , By Mouth , 3 times a day , TTD 700 MG ?? Gabapentin (gabapentin 600 mg oral tablet) ?1 tablet , By Mouth , 3 times a day , TTD 700 MG ?? Loratadine (loratadine 10 mg oral tablet) ?1 tablet , By Mouth , Daily ?? Metformin (metFORMIN 500 mg oral tablet, extended release) ?2 tablet , By Mouth , 2 times a day , 1 tab daily x 1 week then 1 tab BID x 1 week then 2tabs BID ?? Miscellaneous Rx (FreeStyle Lite Strips) ?See Instructions , USE TO TEST FINGER STICK BLOOD SUGAR ONCE DAILY fasting ?? Miscellaneous Rx (Inject Ease Lancets 28 gauge) ?See Instructions , USE TO TEST FINGER STICK BLOOD SUGAR ONCE DAILY ?? Pantoprazole (pantoprazole 40 mg oral delayed release tablet) ?1 tablet , By Mouth , Daily ?? Prazosin (prazosin 2 mg oral capsule) ?1 capsule , By Mouth , Daily at bedtime ?? Risperidone (risperiDONE 2 mg oral tablet) ?1 tablet , By Mouth , Daily ?? Sertraline (sertraline 100 mg oral tablet) ?1 tablet , By Mouth , Daily ?? Trazodone (traZODone 100 mg oral tablet) ?1 tablet , By Mouth , Daily at bedtime ?? Venlafaxine (venlafaxine 150 mg oral capsule, extended release) ?1 capsule , By Mouth , Daily in AM ? Trauma History: ?? Does person report a history of trauma?Yes? if yes, explain: Stef states that his sister's passing has been traumatic for him. ? Patient Safety and Abuse: ?? Concerns for??environmental violence, abuse,??neglect, or exploitation (physical, emotional, sexual, financial, etc) ???None reported ? if yes, explain: ?? Has the person expressed fear to return to their home environment and/or fear of partner, family, caregivers, other individuals?None reported? if yes, explain: ?? Is there a need to report to Adult Protective Services, Child Protective Services, Law Enforcement???Not currently indicated ?if yes, explain: ?? Does the person have access to means of harming self or others (substances, firearms, medications, etc)???None reported ? if yes, explain: ?? Was a safety plan discussed???Yes ? if yes, explain: Stef will remain in the emergency department pending inpatient placement. ?? Was the patient provided numbers for crisis call centers???No??[facility] ? Mental Status Exam:? Level of Consciousness/Orientation: Alert and Oriented x4 Appearance:??Appropriate Sleep: Good Appetite: Good Psychomotor Behavior: WNL Mood:??Euthymic Affect (range, quality, congruence):??Congruent Speech (rate, rhythm, volume, amount, articulation):??WNL Eye Contact:??Fair Thought Process: Mostly clear and organized?? Thought Content:??Help-Seeking, Future Oriented Concentration: Good Memory: Fair Insight:??Fair Judgment:??Fair Impulsivity:??No current concerns Suicidal Ideation: ??endorses ? Intent:??endorses ? Plan:??endorses?? Self-Harm Thoughts/Behaviors:??denies ? Intent:??denies ? Plan:??denies Homicidal Ideation:?denies ? Intent:??denies ?Plan:??denies Assault Ideations:??denies ? Intent:??denies ? Plan:??denies Visual Hallucinations:?denies Auditory Hallucinations:?denies Internal Stimuli:??None reported or observed during assessment. Delusions/Paranoia: None reported or observed during assessment. ?? Other comments: ? Risk Factors (select all that apply): ?? Suicidal behavior:?_?History of prior suicide attempts or self-injurious behaviors ??_?? Homicidal ideations/plan/intent ??X?? Suicidal ideations/plan/intent ? Precipitating Events/Stressors:?_?Recent losses??or other significant events ??_?Prolonged stress (harassment, bullying, relationship struggles, financial stress, difficultyaccessing means for basic needs, etc.) ??_?? Pending incarceration ??_?? Pending/possible loss of housing ??X?? Current or pending isolation or feeling alone ?? Treatment??History ??X?History of??psychiatric diagnosis and treatments ??_?? Hopeless or dissatisfied with treatment ??_?? Non-compliant with treatment (including difficulties with aftercare follow up??and/or medication compliance) ??_?Not receiving/unable to access treatment ?? Clinical Status/History?_?Hopelessness ?_?? Increased/decreased appetite ?_?? Increased/decreased sleep ?_?Major depressive episode ?X?? Mixed affect episode (ex. bipolar) ?_?? Command hallucinations to hurt self/others ?_?? Chronic pain and/or other??serious illnesses ?_?? Impulsive behavior ?X?? Substance abuse or dependence ?_?? Agitation or severe anxiety ?_?? Perceived burden on family or others ?_?? Aggressive behavior toward others ?_?? Refuses or feels unable to agree to safety plan ?_?? Current or prior history of adverse childhood experiences ?_?? Family history of suicide ?_?? Current and/or history of violence victimization and/or perpetration ?? _??Access to lethal means ?? Other ??_?_? Protective Factors (select all that apply): ?? Internal _??Fear of or dying due to pain and suffering X??Identifies reasons for living?? _??Ability to cope with stress/frustration tolerance X??Future oriented _??Feeling connected to others ? External _??Belief that suicide is immoral; high spirituality/catholic/cultural beliefs _??Responsibility to family/pets/others _??Lives with others X??Supportive social network of services/family/friends _??Engaged in work or school X??Connected with outpatient services X??Willing to engage with treatment _??Reduced access to lethal means of suicide or means to harm self/others ?? Other _?? _? Clinical Formulation - Interpretive Summary What in your clinical judgement are the need areas, thefactors that led to the needs, and your plan to address them?(Include history, current presentation, pertinent collateral information, risk/protective factors, low/moderate/high risk, if they meet criteria for inpatient level of care, if voluntary or involuntary treatment, and??justification for recommended level of care): ?? Stef is a 32 year old male presented to??[facility] Emergency Department via EMS secondary to suicidal ideation with plan to commit suicide with a knife. He called EMS as he did not feel safe and continued to present with SI throughout today's assessment. Stef??is very familiar to [facility] and was last seen on February 25 for a similar presentation but he did not have active SI with a planso he was discharged back to the community??to continue with his outpatient services. He states that he has had increased depression over the past few days??and??decided to seek help as he felt it was continuing to get worse.??After being cleared by medical, Stef was referred to??crisis for further evaluation.??Stef has wrap around services through [facility] and states that he attends all of his appointments and finds them very helpful in the community. He has a long history of inpatientpsychiatric admissions with his last being in November of 2022 at [facility]. He has a history of??using Cannabis and states that he has been using more regularly lately but continues to deny any othercurrent or historical substance use ; UTOX was positive for Cannabis. Stef was a poor historian regarding recent self-harming / suicide??attempts stating I have had a lot since the last time I sawyou . Of note, this was February??. Stef would not disclose what means he took to end his life and states that he??did not receive any medical attention. Stef??is able to advocate his needs well and has showed an understanding of how to seek services if he is in immediate need. Stef has risk factors that include a history of diagnoses and treatment as well as his substance use but has protective??factors that include significant outpatient providers, being future??oriented as well as beingwilling to engage in treatment. He currently present as moderate risk for unintentional??harm to himself or others and is requesting requesting an inpatient admission as he states he does not feel safe in the community. He will be an inpatient bedsearch for IPLOC for a medication evaluation and stab ilization as well as group and milieu therapy. ? This individuals??care plan and diagnosis(es) were discussed with Crisis Clinical Informatica Mdm Developer/Independently Licensed Designee??Loren Jay [facility] ??and [facility] provider Dr. Shmuel Klein??who are in agreement with this evaluation and disposition recommendations. ? Diagnoses:? Check Primary/Billing Diagnosis DSM Code?? Schizoaffective Disorder ??F25.0? Person's Service Preferences, Level of Care/Indicated Services Recommendation:? Stef is requesting an inpatient admission as he states he does not feel safe in the community. He will be an inpatient bedsearch for IPLOC.? Person Served/Guardian/Family response to recommendations:? Stef is agreeable to this disposition. ? Patient Care team information Care Team Personnel Name: Ela Beltrán RN Position: [facility] Nurse Member Role: Primary Care Nurse Name: Alaina Gillette RN Position: [facility] RN Member Role: Primary Care Nurse Name: Kristyn Tapia RN Position: [facility] RN Member Role: Primary Care Nurse Name: Lorna Gentile NP Position: [facility] Associate Professional Member Role: Primary Care Nurse Address: Address: [address] [place] [address]- Name: Venus Jaramillo RN Position: [facility] RN Member Role: Primary Care Nurse Name: Flor Donnelly RN Position: [facility] RN Member Role: Primary Care Nurse Name: Ruiz Matson RN Position: [facility] RN Member Role: Primary Care Nurse Name: Belle Ames RN Position: [facility] RN Member Role: Primary Care Nurse Name: Alex Rios RN Position: [facility] RN Member Role: Primary Care Nurse Name: Mray TITUS RN, Daniel Position: [facility] RN Member Role: Primary Care Nurse Name: Jordi Carter MD Position: [facility] Renal MD Member Role: Lifetime Consulting Physician Address: Address: [address] [facility] [place] [address]- [place] Name: Loren Hamlin RN Position: [facility] RN Member Role: Primary Care Nurse Name: Malia Wise RN Position: [facility] RN Member Role: Primary Care Nurse Name: Lamine Lin MD Position: [facility] Physician - Primary Care Member Role: PCP Address: Address: [address] [facility] [place] [address]- Name: Rose Abraham RN Position: [facility] Executive Manager Member Role: Primary Care Nurse Name: Vinod Botello MD Position: [facility] Physician - Behavioral Health Member Role: Lifetime Consulting Physician Address: Address: [address] [place] [address]- Care Team Related Persons Name: MALIA HARRIS Name: KATHLEEN JACQUES Address: home [address] [place] [address] Name: VIRGIL PARKS Address: home [address] [place] [address] Name: MICHAELA MONTENEGRO Address: home UNKNOWN Name: MIGUEL PUENTES Address: home [address] [place] [address]
--- OUTSIDE RECORDS SUMMARY | 2023-03-22 17:19 | XMS_ITS | Continuity of Care Document ---
Author Name Unknown Organization [facility] Address [address] [place] [address]- Care Team Providers Care Production Control Planner Name Role Phone Lamine Lin MD Primary Care Physician [place] [facility] [place] - 03/10/23 [facility] [address] [place] [address]- Attending Physician: Not on Staff, Attending MD [...] virus vaccine, inactivated 2 12/30/10 Gi annia [id number] 12y+ bivalent booster vax 02/07/22 Given SARS-CoV-2 [...] 4 Refills, Maintenance, 02/23/23 13:37:00 EST, Tablet, [facility] [id number], discontinue amlodipine 2.5 mg daily. replace with [...] 4 Refills, Maintenance, 02/23/23 13:53:00 EST, Gel, [facility] [id number], Partial fill... Start Date: 02/23/23 Status: Ordered docusate sodium 100 mg oral capsule 1 capsule, By Mouth, Daily, # 30 each, 1 Refills, Maintenance, 06/06/22 16:49:00 EDT, [facility] [id number], 178, cm, 06/06/22 16:31:00 EDT, Height, 101.4, kg, 01/12/22 14:14:00 EST, Dry Weight Start Date: 06/06/22 Status: Ordered Flonase 50 mcg/inh nasal spray 2 sprays = 100 mcg, Nares, Both, Daily in AM, # 3 each, 3 Refills, Maintenance, 02/23/23 13:39:00 EST, [place], [facility] [id number], Partial fill upon patient request if the prescription is for a schedule II opioid drug., 2 sp... Start Date: 02/23/23 Status: Ordered folic acid 1 mg oral tablet 1, tablet, By Mouth, Daily, # 30 tablet, Refills 5, Tot. Refills 5, Maintenance, 06/06/22 16:49:00 EDT, Route to Pharmacy Electronically, [place], [place] - [id number], 178, cm, 06/06/22 16:31:00 EDT, Height, 101.4, [...] 02/23/23 13:39:00 EST, Route to Pharmacy Electronically, [facility] [id number], 178, cm, 02/23/23 13:19:00 EST, Height, 114, kg, 01/08/23... Start Date: 02/23/23 Status: Ordered metFORMIN 500 mg oral tablet, extended release 2 tablet = 1,000 mg, By Mouth, 2 times a day, 1 tab daily x 1 week then 1 tab BID x 1 week then 2 tabs BID, # 120 tablet, 4 Refills, Maintenance, 02/23/23 13:34:00 EST, ER Tablet, [place], [place] - [id number], Partial fill upon patie... Start Date: 02/23/23 [...] Confirmed Active Knee pain, bilateral Confirmed Active BHN/CCA/Construction Supervisor/Carpenter-Tia Jarrett [phone]/Health fci, active care coordination Confirmed Active Severe obesity [...] Team Personnel Name: Ela Beltrán RN Position: [facility] AMB Nurse Member Role: Primary Care Nurse Name: Alaina Gillette RN Position: [facility] RN Member Role: Primary Care Nurse Name: Kristyn Tapia RN Position: [facility] SN RN Member Role: Primary Care Nurse Name: Lorna Gentile NP Position: [facility] Associate Professional Member Role: Primary Care Nurse Address: Address: [address] [place] [address]- [place] Name: Venus Jaramillo RN Position: [facility] RN Member Role: Primary Care Nurse Name: Flor Donnelly RN Position: [facility] RN Member Role: Primary Care Nurse Name: Ruiz Matson RN Position: [facility] RN Member Role: Primary Care Nurse Name: Belle Ames RN Position: [facility] RN Member Role: Primary Care Nurse Name: Alex Rios RN Position: [facility] RN Member Role: Primary Care Nurse Name: Daniel Hernandez III, RN Position: [facility] RN Member Role: Primary Care Nurse Name: Jordi Carter MD Position: [facility] Renal MD Member Role: Lifetime Consulting Physician Address: Address: [address] [place] [address] [address] [facility], [place] [address]- [place] Name: Loren Hamlin RN Position: [facility] RN Member Role: Primary Care Nurse Name: Malia Wise RN Position: [facility] RN Member Role: Primary Care Nurse Name: Delia ACOSTA, Lamine Covington Position: [facility] Physician - Primary Care Member Role: PCP Address: Address: [address] [facility] [place] [address]- Name: Rose Abraham RN Position: [facility] Hospital Vice President For Instruction Member Role: Primary Care Nurse Name: Vinod Botello MD Position: [facility] Physician - Behavioral Health Member Role: Lifetime Consulting Physician Address: Address: [address] [place] [address]- Care Team Related Persons Name: MALIA HARRIS Name: KATHLEEN JACQUES Address: home [address] [place] [address] Name: VIRGIL PARKS Address: home [address] [place] [address] Name: MICHAELA MONTENEGRO Address: home UNKNOWN Name: MIGUEL PUENTES Address: home [address] [place] [address]
[2023-03-22 17:20] VITALS: BP 151/86; PULSE 77; TEMP 36.6; O2SAT 97
--- OUTSIDE RECORDS SUMMARY | 2023-03-22 17:21 | XMS_ITS | Continuity of Care Document ---
Author Name Unknown Organization [facility] Address [address] [place] [address]- Care Team Providers Care Fabrication Engineer Name Role Phone Delia ACOSTA, Lamine Covington Primary Care Physician Encounter [facility] Date(s): 01/30/23 - 03/01/23 [facility] [address] [place] [address]- Allergies, Adverse Reactions, Alerts Substance Reaction Severity [...] virus vaccine, inactivated 2 12/30/10 Gi annia [id number] 12y+ bivalent booster vax 02/07/22 Given SARS-CoV-2 [...] 4 Refills, Maintenance, 02/23/23 13:37:00 EST, Tablet, [facility] [id number], discontinue amlodipine 2.5 mg daily. replace with [...] 4 Refills, Maintenance, 02/23/23 13:53:00 EST, Gel, [facility] [id number], Partial fill... Start Date: 02/23/23 Status: Ordered docusate sodium 100 mg oral capsule 1 capsule, By Mouth, Daily, # 30 each, 1 Refills, Maintenance, 06/06/22 16:49:00 EDT, [facility] [id number], 178, cm, 06/06/22 16:31:00 EDT, Height, 101.4, kg, 01/12/22 14:14:00 EST, Dry Weight Start Date: 06/06/22 Status: Ordered Flonase 50 mcg/inh nasal spray 2 sprays = 100 mcg, Nares, Both, Daily in AM, # 3 each, 3 Refills, Maintenance, 02/23/23 13:39:00 EST, [place], [facility] [id number], Partial fill upon patient request if the prescription is for a schedule II opioid drug., 2 sp... Start Date: 02/23/23 Status: Ordered folic acid 1 mg oral tablet 1, tablet, By Mouth, Daily, # 30 tablet, Refills 5, Tot. Refills 5, Maintenance, 06/06/22 16:49:00 EDT, Route to Pharmacy Electronically, [place], [place] - [id number], 178, cm, 06/06/22 16:31:00 EDT, Height, 101.4, [...] 02/23/23 13:39:00 EST, Route to Pharmacy Electronically, [facility], [place] - [id number], 178, cm, 02/23/23 13:19:00 EST, Height, 114, kg, 01/08/23... Start Date: 02/23/23 Status: Ordered metFORMIN 500 mg oral tablet, extended release 2 tablet = 1,000 mg, By Mouth, 2 times a day, 1 tab daily x 1 week then 1 tab BID x 1 week then 2 tabs BID, # 120 tablet, 4 Refills, Maintenance, 02/23/23 13:34:00 EST, ER Tablet, [facility], [place] - [id number], Partial fill upon patie... Start Date: 02/23/23 [...] Confirmed Active Knee pain, bilateral Confirmed Active BHN/CCA/Brush Cleaner-Tia Jarrett [phone]/Health long-term, active care coordination Confirmed Active Severe obesity [...] Team Personnel Name: Ela Beltrán RN Position: [facility] AMB Nurse Member Role: Primary Care Nurse Name: Alaina Gillette RN Position: [facility] RN Member Role: Primary Care Nurse Name: Kristyn Tapia RN Position: [facility] SN RN Member Role: Primary Care Nurse Name: Lorna Gentile NP Position: [facility] Associate Professional Member Role: Primary Care Nurse Address: Address: [address] [place] [address]- [place] Name: Venus Jaramillo RN Position: [facility] RN Member Role: Primary Care Nurse Name: Flor Donnelly RN Position: [facility] RN Member Role: Primary Care Nurse Name: Ruiz Matson RN Position: [facility] RN Member Role: Primary Care Nurse Name: Belle Ames RN Position: [facility] RN Member Role: Primary Care Nurse Name: Alex Rios RN Position: [facility] RN Member Role: Primary Care Nurse Name: Daniel Hernandez III, RN Position: [facility] RN Member Role: Primary Care Nurse Name: Jordi Carter MD Position: [facility] Renal MD Member Role: Lifetime Consulting Physician Address: Address: [address] [place] [address] [address] [facility] [place] [address]- [place] Name: Loren Hamlin RN Position: S RN Member Role: Primary Care Nurse Name: Malia Wise RN Position: [facility] RN Member Role: Primary Care Nurse Name: Lamine Lin MD Position: [facility] Physician - Primary Care Member Role: PCP Address: Address: [address] [facility] [place] [address]- Name: Rose Abraham RN Position: [facility] Hospital Enrollment Processor Member Role: Primary Care Nurse Name: Vinod Botello MD Position: [facility] Physician - Behavioral Health Member Role: Lifetime Consulting Physician Address: Address: [address] [place] [address]- Care Team Related Persons Name: MALIA HARRIS Name: KATHLEEN JACQUES Address: home [address] [place] [address] Name: VIRGIL PAKRS Address: home [address] [place] [address] Name: MICHAELA MONTENEGRO Address: home UNKNOWN Name: MIGUEL PUENTES Address: home [address] [place] [address]
--- OUTSIDE RECORDS SUMMARY | 2023-03-22 17:23 | XMS_ITS | Continuity of Care Document ---
Author Name Unknown Organization [facility] Adult Medicine Address [address] [place] [address]- Care Team Providers Care Hospice Art Therapist Name Role Phone Delia ACOSTA, Lamine Covington Primary Care Physician [phone] Encounter [facility] Date(s): 02/10/23 - 03/12/23 [facility] Adult Medicine [address] [place] [address]- Allergies, Adverse Reactions, Alerts Substance Reaction Severity [...] virus vaccine, inactivated 2 12/30/10 Gi annia [id number] 12y+ bivalent booster vax 02/07/22 Given SARS-CoV-2 [...] 4 Refills, Maintenance, 02/23/23 13:37:00 EST, Tablet, [facility] [id number], discontinue amlodipine 2.5 mg daily. replace with [...] 4 Refills, Maintenance, 02/23/23 13:53:00 EST, Gel, [facility] [id number], Partial fill... Start Date: 02/23/23 Status: Ordered docusate sodium 100 mg oral capsule 1 capsule, By Mouth, Daily, # 30 each, 1 Refills, Maintenance, 06/06/22 16:49:00 EDT, [facility] [id number], 178, cm, 06/06/22 16:31:00 EDT, Height, 101.4, kg, 01/12/22 14:14:00 EST, Dry Weight Start Date: 06/06/22 Status: Ordered Flonase 50 mcg/inh nasal spray 2 sprays = 100 mcg, Nares, Both, Daily in AM, # 3 each, 3 Refills, Maintenance, 02/23/23 13:39:00 EST, [place], [facility] [id number], Partial fill upon patient request if the prescription is for a schedule II opioid drug., 2 sp... Start Date: 02/23/23 Status: Ordered folic acid 1 mg oral tablet 1, tablet, By Mouth, Daily, # 30 tablet, Refills 5, Tot. Refills 5, Maintenance, 06/06/22 16:49:00 EDT, Route to Pharmacy Electronically, [place], [place] - [id number], 178, cm, 06/06/22 16:31:00 EDT, Height, 101.4, [...] 02/23/23 13:39:00 EST, Route to Pharmacy Electronically, [facility], [place] - [id number], 178, cm, 02/23/23 13:19:00 EST, Height, 114, kg, 01/08/23... Start Date: 02/23/23 Status: Ordered metFORMIN 500 mg oral tablet, extended release 2 tablet = 1,000 mg, By Mouth, 2 times a day, 1 tab daily x 1 week then 1 tab BID x 1 week then 2 tabs BID, # 120 tablet, 4 Refills, Maintenance, 02/23/23 13:34:00 EST, ER Tablet, [facility], [facility] [id number], Partial fill upon patie... Start Date: 02/23/23 [...] Confirmed Active Knee pain, bilateral Confirmed Active BHN/CCA/Sound Recordist-Tia Jarrett [phone]/Health shelter, active care coordination Confirmed Active Severe obesity [...] Personnel Name: Ela Beltrán RN Position: [facility] AMB Nurse Member Role: Primary Care Nurse Name: Alaina Gillette RN Position: [facility] RN Member Role: Primary Care Nurse Name: Kristyn Tapia RN Position: [facility] SN RN Member Role: Primary Care Nurse Name: Lorna Gentile NP Position: [facility] Associate Professional Member Role: Primary Care Nurse Address: Address: [address] [place] [address]- [place] Name: Venus Jaramillo RN Position: [facility] RN Member Role: Primary Care Nurse Name: Flor Donnelly RN Position: [facility] RN Member Role: Primary Care Nurse Name: Ruiz Matson RN Position: [facility] RN Member Role: Primary Care Nurse Name: Belle Ames RN Position: [facility] RN Member Role: Primary Care Nurse Name: Alex Rios RN Position: [facility] RN Member Role: Primary Care Nurse Name: Daniel Hernandez III, RN Position: [facility] RN Member Role: Primary Care Nurse Name: Jordi Carter MD Position: [facility] Renal MD Member Role: Lifetime Consulting Physician Address: Address: [address] [place] [address] [address] [facility], [place] [address]- [place] Name: Loren Hamlin RN Position: S RN Member Role: Primary Care Nurse Name: Malia Wise RN Position: [facility] RN Member Role: Primary Care Nurse Name: Lamine Lin MD Position: [facility] Physician - Primary Care Member Role: PCP Address: Address: [address] [facility]3] [place] [address]- Name: Rose Abraham RN Position: [facility] Hospital Pluck Trimmer Member Role: Primary Care Nurse Name: Vinod Botello MD Position: [facility] Physician - Behavioral Health Member Role: Lifetime Consulting Physician Address: Address: [address] [place] [address]- Care Team Related Persons Name: MALIA HARRIS Name: KATHLEEN JACQUES Address: home [address] [place] [address] Name: VIRGIL PARKS Address: home [address] [place] [address] Name: MICHAELA MONTENEGRO Address: home UNKNOWN Name: MIGUEL PUENTES Address: [address] [place] [address]
--- OUTSIDE RECORDS SUMMARY | 2023-03-22 17:24 | XMS_ITS | Patient Health Record ---
Author Name Unknown Organization [facility] Address [address] [place] [address] Care Team Providers Care Arabic Professor Name Role Phone Lamine Lin Primary Care [...] for 3 hours one time only) Authorization [id number] valid: 08/29/22 - 11/19/22 Diagnosis 1 Schizoaffective diso rder, bipolar type (F25.0) Diagnosis 2 Anxiety (F41.1) Diagnosis 3 Alteration in self-c are ability (R53.81) Diagnosis 4 Assistance needed at home (Z74.2) Referring Provider First Name Operations Referring Provider Last Name Clinical Referring Provider Speciality Unknown Referred Provider [email or web address]. Referred Provider Specialty Certified [facility] Procedure 1 (Use Modifier UB) Ch ore Services: Heavy per 15 min (S5121) General Notes Tia Jarrett 023 12:13:49 PM >This is a referral for Heavy chore services for 3 hours one time only. Referral with recent office note, demographic information, and approval letter are all attached to this referral. Approval Authorization #[id number] valid 08/29/22 - 11/19/22. If you anticipate that you are not able to accept the referral and accommodate our member, please contact Marine Equipment Preservation Inspector-Tia Jarrett at [phone] or via email: [email or web address]., Tia Jarrett 08/25/2022 12:22:41 PM >Stef Jericho Roman lives alone, he needs this one time Heavy Chores for 3 hours. He needs all floors sweeped and mopped, kitchen cleaning, bathroom cleaned and bed room dirty clothes washed. Laundry room in building. He lives at [address] [place] [address]. [address], he will buzz you in to his building. Stef can be reached at [phone], or you can reach his ACCS worker Rosangela Rogers at [phone]. Referral Priority Routine Reason Referral for PC/HM s ervices - Authorization [id number] valid 09/04/22 - 03/22/23 (Guamanian speaking member) Diagnosis 1 Schizoaffective diso rder, bipolar type (F25.0) Diagnosis 2 Diabetes mellitus (E 11.9) Diagnosis 3 Hypertension (I10) Diagnosis 4 Anxiety (F41.1) Diagnosis 5 Chronic malaise (R53 .81) Referring Provider First Name Operations Referring Provider Last Name Clinical Referring Provider Speciality Unknown Referred Provider [employer] Caregivers Referred Provider Specialty Personal Car e Management Procedure 1 Personal Care (Agenc y, not TRAINING SPECIALIST) (S5131) Procedure 2 Homemaker Service pe r 15m (S5130) General Notes Tia Jarrett 023 01:57:28 PM >This Referral is being sent to supply the member's demographic information for Authorization #[id number] Valid: 09/04/22 - 03/22/23 for Personal Care and Homemaking services. This is in addition to the Approval Letter that was sent from [facility] which is attached to this referral. Member is a palauan speaking, please accommodate with a palauan speaking personal caregiver. If you anticipate that you are not able to accept the referral and accommodate our member, please contact Marine Equipment Preservation Inspector-Tia Jarrett at [phone] or via email: [email or web address]. Thank you for your continued support. Referral Priority Routine Reason Large Blood Pressure Monitor Referral Organization [facility] Referring Provider First Name Operations Referring Provider Last Name Clinical Referring Provider Speciality Unknown Referred Provider Shon albert Supply General Notes Анна Stevens 02/28/2023 10:40:34 AM >, Demographics-, Address: [address] [place] [address] [address], [place], [address], Contact # [phone], Language: Guamanian Clinical Notes Анна Stevens 02/28/2023 10:40:20 AM >, Service/item requested: Blood Pressure Monitor , Frequency: 1, Quantity: 1, Size: Large, Height: 178cm, Weight: 132.25kg, Doctors Name: Ava Lira, NPI # [id number], Office number: [phone], Fax number: [phone] Referral Priority Routine MEDICATIONS Medication SIG (Take, Route, Frequency, Duration) Notes Start Date End Date Status Loratadine 10 MG 1 tablet Orally Once a day as needed Active Chlorthalidone 25 MG 0.5 tablet in the morning with food Orally Once a day Unknown Gabapentin 400 MG 1 tablet Orally Thre e times a day Active Venlafaxine HCl ER 150 MG 1 capsule with food Orally Once a day Active Prazosin HCl 5 MG 1 capsule at bedtime Orally Once a day Active Colace 100 MG 2 capsules Orally Tw ice a day Active amLODIPine Besylate 5 MG 1.5 tablet Oral ly Once a day Active Multivitamin - 1 tablet Orally Once a day Active Zoloft 100 MG 1 tablet Orally Once a day Active Ferrous Sulfate 325 (65 Fe) MG 1 tablet Orally every 48 hours Active Ballard Carbonate 300 MG 2 capsules at b edtime Orally Once a day Active hydrOXYzine HCl 25 MG 1 tablet Orally tw ice a day as needed for anxiety Active Benztropine Mesylate 0.5 MG 1 tablet Orally BID Active Haloperidol 5 MG 1 tablet Orally Once a day Active traZODone HCl 150 MG 1 tablet at bedtime Orally Once a day Active Haloperidol 5 MG 3 tablets Orally at bedtime Active metFORMIN HCl ER 500 MG 1 tablet with ev ening meal Orally Once a day Active Fluticasone Propionate 50 MCG/ACT 1 spray in each nostril Nasally Once a day Active Pantoprazole Sodium 40 MG 1 tablet Orall y Once a day Active IMMUNIZATIONS Vaccine Route Administration Date Status Comme nts COVID-19, mRNA, LNP-S, bival ent booster, PF, 30 mcg/0.3 mL Unknown 02/07/2022 Administered Flu Vac (Fluzone /Alfuria) QIV PFS Unknown 03/19/2021 A dministered Flu Vac NOC (vac given elsewhere/pt. refuse/ CI) Unknown 02/07/2022 Administered Serious Energy COVID-19 Vaccine IM Unknown 08/20/2020 Administered Serious Energy COVID-19 Vaccine IM Unknown 09/10/2020 Administered SOCIAL HISTORY Sex Assigned At : Social History Observation Description Sex Assigned At Unknown PROBLEMS Problem Type ICD Code Onset Dates Problem Status W/U Status Risk SNOMED Code Notes Problem Hypertension (I10) Active confirmed Hyp ertension (08806157) Problem Anxiety (F41.1) Active confirmed Anxiet y (85514186) Problem GERD (gastroesophageal reflux disease) (K21.9) Active confirmed Gastroesophagea l reflux disease (898000339) Problem Schizoaffective disorder, bipolar type (F25.0) Active confirmed Schizoaffective disorder, bipolar type (92599473) Problem Diabetes mellitus (E11.9) Active confirmed Diabetes mellit (60640491) Problem Hypercholesteremia (E78.00) Active confirmed Pure hypercholesterolemia (102258847) Encounters Encounter Location Date Provider Diagnosis [facility] [address] [place] [phone] 03/30/2022 Operations Clinical [facility] [address] [place] [phone] 08/11/2022 Operations Clinical [facility] ([facility] [address] [place] [phone] 09/28/2022 Operations Clinical [facility] [address] [place] [phone] 01/27/2023 Operations Clinical [facility] [address] [place] [phone] 02/10/2023 Operations Clinical [facility] [address] [place] [phone] 03/09/2023 Operations Clinical [facility] ([facility] [address] [place] [phone] 02/22/2023 Operations Clinical Schizoaffective disorder, bipolar type [...] Coverage Start Date Coverage End Date [facility] [address] [facility] [address] [place] [address] [id number] STEF ORTIZ Self - patient is the insured 9 9
--- OUTSIDE RECORDS SUMMARY | 2023-03-22 17:24 | XMS_ITS | Continuity of Care Document ---
Author Name Unknown Organization [facility] Address [address] [place] [address]- Care Team Providers Care Conveyor Maintenance Mechanic Name Role Phone Delia ACOSTA, Lamine Covington Primary Care Physician Encounter [facility] Date(s): 02/16/23 - 03/18/23 [facility] [address] [place] [id number]- Allergies, Adverse Reactions, Alerts Substance Reaction Severity [...] virus vaccine, inactivated 2 12/30/10 Gi annia [id number] 12y+ bivalent booster vax 02/07/22 Given SARS-CoV-2 [...] Maintenance, 02/23/23 13:37:00 EST, Tablet, [facility] [id number], discontinue amlodipine 2.5 mg daily. replace with [...] Maintenance, 02/23/23 13:53:00 EST, Gel, [facility] [id number], Partial fill... Start Date: 02/23/23 Status: Ordered docusate sodium 100 mg oral capsule 1 capsule, By Mouth, Daily, # 30 each, 1 Refills, Maintenance, 06/06/22 16:49:00 EDT, [facility] [id number], 178, cm, 06/06/22 16:31:00 EDT, Height, 101.4, kg, 01/12/22 14:14:00 EST, Dry Weight Start Date: 06/06/22 Status: Ordered Flonase 50 mcg/inh nasal spray 2 sprays = 100 mcg, Nares, Both, Daily in AM, # 3 each, 3 Refills, Maintenance, 02/23/23 13:39:00 EST, [place], [facility] [phone], Partial fill upon patient request if the prescription is for a schedule II opioid drug., 2 sp... Start Date: 02/23/23 Status: Ordered folic acid 1 mg oral tablet 1, tablet, By Mouth, Daily, # 30 tablet, Refills 5, Tot. Refills 5, Maintenance, 06/06/22 16:49:00 EDT, Route to Pharmacy Electronically, [place], [place] - [id number], 178, cm, 06/06/22 16:31:00 EDT, Height, 101.4, [...] 02/23/23 13:39:00 EST, Route to Pharmacy Electronically, [facility], [place] - [id number], 178, cm, 02/23/23 13:19:00 EST, Height, 114, kg, 01/08/23... Start Date: 02/23/23 Status: Ordered metFORMIN 500 mg oral tablet, extended release 2 tablet = 1,000 mg, By Mouth, 2 times a day, 1 tab daily x 1 week then 1 tab BID x 1 week then 2 tabs BID, # 120 tablet, 4 Refills, Maintenance, 02/23/23 13:34:00 EST, ER Tablet, [facility], [place] - [id number], Partial fill upon patie... Start Date: 02/23/23 [...] Confirmed Active Knee pain, bilateral Confirmed Active BHN/CCA/Education Specialist-Tia Jarrett [phone]/Health prison, active care coordination Confirmed Active Severe obesity [...] Kristyn Tapia RN Position: [facility] SN RN Member Role: Primary Care Nurse Name: Lorna Gentile NP Position: [facility] Associate Professional Member Role: Primary Care Nurse Address: Address: [address] [place] [address]- [place] Name: Venus Jaramillo RN [facility] Alex Rios RN Position: [facility] ED RN W/OE and Tasks Member Role: Primary Care Nurse Name: Daniel Hernandez III, RN Position: [facility] RN Member Role: Primary Care Nurse Name: Jordi Carter MD Position: [facility] Renal MD Member Role: Lifetime Consulting Physician Address: Address: [address] [place] [address] [address] [facility] [place], [place] [address]- [place] Name: Loren Hamlin RN Position: [facility] RN Member Role: Primary Care Nurse Name: Malia Wise RN Position: [facility] RN Member Role: Primary Care Nurse Name: Delia ACOSTA, Lamine Covington Position: [facility] Physician - Primary Care Member Role: PCP Address: Address: [address] [place] [address]- Name: Rose Abraham RN Position: [facility] Hospital Store Sales Leader Member Role: Primary Care Nurse Name: Vinod Botello MD Position: [facility] Physician - Behavioral Health Member Role: Lifetime Consulting Physician Address: Address: [address] [place] [address]- Care Team Related Persons Name: MALIA HARRIS Name: KATHLEEN JACQUES Address: home [address] [place] [address] Name: VIRGIL PARKS Address: home [address] [place] [address] Name: MICHAELA MONTENEGRO Address: home UNKNOWN Name: MIGUEL PUENTES Address: home [address] [place] [address]
[2023-03-22 17:50] VITALS: BMI 44.7
--- NOTE | 2023-03-22 18:24 | PC.ADMIT ---
Stef is a 32-year-old male admitted from [facility] ED to M3 on a CV for treatment of unspecified schizophrenia and other psychotic disorder. Tox screen positive for THC. Medical hx HTN and diabetes. Per crisis eval, pt presented to [facility] for increased suicidal thoughts and depression. Pt reported struggling due to the time of year due to anniversaries of family members' deaths. Pt expressed feeling hopeless, loneliness and continues to endorse SI. Upon arrival to the unit, pt was alert, oriented, pleasant, cooperative, and cheerful. Thought process is linear and organized. Pt denies HI/AH/VH.
--- NOTE | 2023-03-22 18:40 | HO.PM.IMCN ---
History of Present Illness Data of Consult Service Date: 03/22/23 Requesting physician: Shmuel Ro Primary Care Provider: Unknown Physician HPI Reason for consult: medical H&P 32-year-old male with history of hypertension, [id number] type 2 diabetes, GERD, bipolar disorder, schizoaffective disorder admitted to Psychiatry from [facility] ED with consult placed to hospitalist service for medical H and P. The patient was recently discharged from our facility and had had norovirus. He states that he has had full resolution of nausea, vomiting, bloody diarrhea. Denies any fevers or chills. Has had a productive cough with green sputum for the last 2 days but no other upper respiratory symptoms. No known sick contacts. While in the ED, vitals stable. Hematology studies and chemistries unremarkable. Urine tox screen positive for THC but otherwise negative. Negative for COVID-19. He reports his blood pressure has been elevated at home but has not been compliant with his antihypertensives. He is concerned about calluses on his feet which have been present for some time. He states he sweats a lot on his feet and he does occasionally get an itch. No rash. Review of Systems Review of Systems: General: No fevers, malaise, unintentional weight loss HEENT: No blurred vision, diplopia. No sore throat, nasal congestion, rhinorrhea, sinus pain, ear pain Cardiovascular: No chest pain, palpitations, or leg edema Respiratory: No shortness of breath, wheezing, cough GI: No abdominal pain, nausea, vomiting, diarrhea, constipation, melena, hematochezia : No dysuria, hematuria, increased urinary frequency, decreased urinary output MSK: No myalgia, back pain Neuro: No headaches, weakness, paresthesias Skin: No rashes or lesions. +foot callous [facility] Medical History (Updated 03/22/23 @ 19:02 by PATY Quintero) Morbid obesity Medical clearance for psychiatric admission Schizoaffective disorder Diabetes HTN (hypertension) Social History Household Members: Other Housing: Apartment Do you presently have visiting nurse or other home services: Yes Unable to assess alcohol history related to: Refusing to respond Patient Tobacco Use Status: Never used Tobacco e-Cigarette/Vaping Use: Never Used Second Hand Smoke Exposure: No Advance Directives: No Advance Directives Information Provided: No service: No Sexual orientation: Straight/Heterosexual Meds Allergies Allergy/AdvReac Type Severity Reaction Status Date / Time lisinopril Allergy Unknown Cough Verified 12/15/22 18:44 clonidine AdvReac Unknown Unknown Verified 11/19/22 16:28 Home Medications Medication Instructions Recorded Confirmed Last Taken Type pantoprazole 40 mg tablet,delayed 40 mg PO DAILY 08/02/22 02/27/23 08/02/22 05:26 History release trazodone 50 mg tablet 150 mg PO BEDTIME Insomnia 02/04/23 02/27/23 Unknown History venlafaxine 150 mg 150 mg PO DAILY 02/04/23 02/27/23 Unknown History capsule,extended release 24 hr (Effexor XR) Physical Exam Vital Signs and Narrative: Vital Signs: BMI result Body Mass Index 44.7 Constitutional - Awake and Alert, No apparent distress Eyes - PERRLA, EOMI Cardiovascular - S1S2, RRR, No edema Respiratory - Normal lung expansion, Normal respiratory effort, No respiratory distress, CTA bilaterally Gastrointestinal - NT / ND; +BS; No rebound or guarding - No CVA tenderness Extremities - no calf tenderness bilaterally, no swelling Musculoskeletal - Normal inspection, normal ROM Skin - Warm/Dry . skin hypertrophy bilateral heels Neurological - Alert & oriented x3, CN II-XII in tact, 5/5 strength BUE and BLE Psychological - Appropriate affect Assessment and Plan (1) Medical clearance for psychiatric admission: Status: Acute Plan 32-year-old male with history of hypertension, [id number] type 2 diabetes, GERD, bipolar disorder, schizoaffective disorder admitted to Psychiatry from [facility] ED with consult placed to hospitalist service for medical H and P. #Schizoaffective disorder/bipolar -plan per psychiatry #HTN -continue amlodipine 7.5mg daily -add losartan 25mg nightly # gjp-nyfqjxl-jiicazady type 2 diabetes -poc glucose, diabetic diet -continue metformin 500mg XR -last hgb a1c 4.9%? 01/2023 Consider dc metformin outpt #GERD -ppi #Bilateral foot callous -outpt follow up Thank you for allowing me to participate in this consult. Signing off at this time. Please do not hesitate to call for further questions.
--- NOTE | 2023-03-22 19:17 | PC.NURSE ---
Pt refused flu vaccine, pt reports already being immunized this season.
[2023-03-22 20:28] LABS: Glucose, Whole Blood 109 mg/dL (60-115)
[2023-03-22] MEDS: hydrOXYzine HCL 25 MG TABLET PO (21:17)
[2023-03-22] MEDS: Losartan Potassium 25 MG TABLET PO (21:17)
[2023-03-22] MEDS: traZODone HCL 50 MG TABLET PO ×2 (21:18→23:17)
[2023-03-22] MEDS: OLANZapine 5 MG TABLET PO (21:18)
[2023-03-22] MEDS: Acetaminophen 325 MG TABLET 650 MG PO (21:18)
[2023-03-22] MEDS: Gabapentin 400 MG CAPSULE PO (23:17)
[2023-03-22] MEDS: Lithium Carbonate ER 300 MG TABLET.ER 600 MG PO (23:19)
[2023-03-23 08:06] LABS: Glucose, Whole Blood 113 mg/dL (60-115)
[2023-03-23 09:01] LABS: Alanine Aminotransferase 22 U/L (0-40); Albumin Level 4.1 g/dL (3.5-5.0); Alkaline Phosphatase 44 U/L (39-117); Anion Gap 10 (12-20); Aspartate Amino Transferase 30 U/L (5-37); Bilirubin Total 0.2 mg/dL (0.0-1.0); Blood Urea Nitrogen 18 mg/dL (9-16); Calcium 9.6 mg/dL (8.4-10.2); Carbon Dioxide 31 mmol/L (22-29); Chloride 104 mmol/L (96-108); Creatinine Clr Calc Pharmacy 169.5; Estimated Glomerular Filt Rate > 60; Glucose Fasting 94 mg/dL (60-99); Potassium 4.4 mmol/L (3.3-5.1); Sodium 141 mmol/L (135-145); Total Protein 7.3 g/dL (6.5-8.0)
[2023-03-23] MEDS: Sertraline HCL 100 MG TABLET PO (09:08)
[2023-03-23] MEDS: Docusate Sodium 100 MG CAPSULE 200 MG PO (09:09)
[2023-03-23] MEDS: Omeprazole 20 MG CAPSULE.DR PO (09:09)
[2023-03-23] MEDS: Lithium Carbonate ER 300 MG TABLET.ER 600 MG PO ×2 (09:09→22:32)
[2023-03-23] MEDS: HaloperidoL 5 MG TABLET PO (09:10)
[2023-03-23] MEDS: Ferrous Sulfate 324 MG TABLET.DR PO (09:10)
[2023-03-23] MEDS: Benztropine Mesylate 0.5 MG TABLET PO ×2 (09:10→22:33)
[2023-03-23] MEDS: amLODIPine Besylate 2.5 MG TABLET 7.5 MG PO (09:11)
[2023-03-23] MEDS: Gabapentin 400 MG CAPSULE PO ×3 (09:11→22:31)
[2023-03-23] MEDS: Multivitamin TABLET 1 TAB PO (09:11)
[2023-03-23] MEDS: Loratadine 10 MG TABLET PO (09:12)
[2023-03-23 09:14] VITALS: BP 138/69; PULSE 89; RESP 18; TEMP 36.3; O2SAT 98
[2023-03-23] MEDS: Fluticasone Propionate Nasal 16 GM SPRAY 1 SPRAY NOSTRIL-B (09:39)
[2023-03-23] MEDS: Acetaminophen 325 MG TABLET 650 MG PO (09:40)
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
[2023-03-23] MEDS: Magnesium Hydrox/Alum Hydrox 30 ML ORAL.SUSP PO (11:37)
[2023-03-23 11:44] LABS: Glucose, Whole Blood 106 mg/dL (60-115)
[2023-03-23 17:20] VITALS: BMI 45.7
[2023-03-23 17:35] LABS: Glucose, Whole Blood 106 mg/dL (60-115)
[2023-03-23] MEDS: metFORMIN HCl ER 500 MG TAB.ER.24H PO (17:51)
[2023-03-23 20:35] VITALS: BP 114/80; PULSE 90; RESP 16; TEMP 36.5; O2SAT 95
[2023-03-23 22:18] LABS: Glucose, Whole Blood 111 mg/dL (60-115)
[2023-03-23] MEDS: HaloperidoL 5 MG TABLET 15 MG PO (22:31)
[2023-03-23] MEDS: Prazosin HCL 5 MG CAPSULE PO (22:31)
[2023-03-23] MEDS: Losartan Potassium 25 MG TABLET PO (22:32)
[2023-03-23] MEDS: OLANZapine 5 MG TABLET PO (22:33)
[2023-03-23] MEDS: traZODone HCL 50 MG TABLET PO (22:33)
[2023-03-24] MEDS: traZODone HCL 50 MG TABLET PO ×3 (00:01→23:30)
[2023-03-24 07:50] VITALS: BP 127/82; PULSE 91; RESP 14; TEMP 36.3; O2SAT 96
[2023-03-24 07:59] LABS: Glucose, Whole Blood 91 mg/dL (60-115)
--- NOTE | 2023-03-24 08:58 | HO.PSYCHPN ---
Subjective Subjective Date of Service: 03/24/23 Reason For Visit: Unspecified schizophrenia spectrum Subjective Notes: Conditional Voluntary Interim History: Reviewed with . Social with peers and staff. Pt reports feeling depressed ; pt stated, yesterday I found out that my sisters boyfriend threw her ashes away .Pt reports suicidal ideation with plan to cut myself . denies HI/VH/AH. Pt reports he refused his lithium this morning d/t not feeling well. [facility] decreased to 450mg PO BID. labs to be drawn today to determine lithium level. Medication Compliance: Yes Attending Groups: Intermittent Review of Systems Constitutional: Reports as per HPI Eyes: Reports as per HPI Reports as per HPI Cardiovascular: Reports as per HPI Respiratory: Reports as per HPI Gastrointestinal: Reports as per HPI Genitourinary: Reports as per HPI Musculoskeletal: Reports as per HPI Skin/Breast: Reports as per HPI Reports as per HPI Psychiatric: Reports as per HPI Endocrine: Reports as per HPI Hematologic/Lymphatic: Reports as per HPI Allergic/Immunologic: Reports as per HPI Mental Status Exam Mental Status Exam Narrative: Pt is alert and oriented; behavior is cooperative, friendly and calm; dressed in casual attire; mood is described as depressed ; eye contact appropriate; Speech is normal rate, volume and prosody and not pressured; thought process is organized; Thought content is on tx; otherwise pertinent to relevant topics and without any delusional content, paranoid ideations or grandiosity; denies HI/VH/AH. Pt reports suicidal ideation with plan to cut myself . Diagnostics Vital Signs (24Hr): Vital Signs - 24 hr 03/23/23 09:14 03/23/23 20:35 03/24/23 07:50 Temperature 97.3 F 97.7 F 97.3 F Pulse Rate 89 90 91 Respiratory Rate 18 16 14 Blood Pressure 138/69 114/80 127/82 Pulse Oximetry 98 95 96 Oxygen Delivery Method Room Air Room Air Room Air BMI result Body Mass Index 45.7 Labs 03/23/23 08:33 Labs: Laboratory Results - last 48 hr 03/22/23 03/23/23 03/23/23 20:24 07:56 08:33 Sodium 141 Potassium 4.4 Chloride 104 Carbon Dioxide 31 H Anion Gap 10 L BUN 18 H Creatinine 0.82 Estim Creat Clear Calc 169.5 Estimated GFR > 60 POC Glucose 109 113 Fasting Glucose 94 Calcium 9.6 Total Bilirubin 0.2 AST 30 ALT 22 Alkaline Phosphatase 44 Total Protein 7.3 Albumin 4.1 03/23/23 03/23/23 03/23/23 11:41 17:27 22:13 Sodium Potassium Chloride Carbon Dioxide Anion Gap BUN Creatinine Estim Creat Clear Calc Estimated GFR POC Glucose 106 106 111 Fasting Glucose Calcium Total Bilirubin AST ALT Alkaline Phosphatase Total Protein Albumin 03/24/23 07:50 Sodium Potassium Chloride Carbon Dioxide Anion Gap BUN Creatinine Estim Creat Clear Calc Estimated GFR POC Glucose 91 Fasting Glucose Calcium Total Bilirubin AST ALT Alkaline Phosphatase Total Protein Albumin Medications Medications Current Medications Acetaminophen (Acetaminophen 325 Mg Tablet) 650 mg PO Q6H PRN PRN Reason: Headache/Pain Mild Scale (1-3) Last Admin: 03/23/23 09:40 Dose: 650 mg Al Hydroxide/Mg Hydroxide (Magnesium Hydrox/Alum Hydrox 30 Ml Oral.Susp) 30 ml PO Q6H PRN PRN Reason: Heartburn/Nausea Last Admin: 03/23/23 11:37 Dose: 30 ml Amlodipine Besylate (Amlodipine Besylate 2.5 Mg Tablet) 7.5 mg PO DAILY [facility]; Protocol Last Admin: 03/23/23 09:11 Dose: 7.5 mg Benzocaine (Throat Lozenge, Medicated Lozenge) 1 lozenge MUCOUS MEM Q2H PRN PRN Reason: Sore Throat Benztropine Mesylate (Benztropine Mesylate 0.5 Mg Tablet) 0.5 mg PO BID [facility] Last Admin: 03/23/23 22:33 Dose: 0.5 mg Capsaicin (Capsaicin 0.025% Cream 60 Gm Tube) 1 appl TOPICAL TID PRN; Protocol PRN Reason: Pain, Moderate(Pain Scale 4-6) Dextrose (Dextrose 50 % 25 Gm/50 Ml Syringe) 25 gm IVPUSH Q15M PRN; Protocol PRN Reason: per Hypoglycemia Standing Ord. Docusate Sodium (Docusate Sodium 100 Mg Capsule) 200 mg PO BID [facility] Last Admin: 03/23/23 22:41 Dose: Not Given Ferrous Sulfate (Ferrous Sulfate 324 Mg Tablet.Dr) 324 mg PO Q48H [facility] Last Admin: 03/23/23 09:10 Dose: 324 mg Fluticasone Propionate (Fluticasone Propionate Nasal 16 Gm [place]) 1 spray NOSTRIL-B DAILY [facility] Last Admin: 03/23/23 09:39 Dose: 1 spray Gabapentin (Gabapentin 400 Mg Capsule) 400 mg PO TID [facility] Last Admin: 03/23/23 22:31 Dose: 400 mg Glucose (Glucose Gel 15 Gm Gel..Gram.) 15 gm PO Q15M PRN; Protocol PRN Reason: per Hypoglycemia Standing Ord. Haloperidol (Haloperidol 5 Mg Tablet) 5 mg PO DAILY [facility] Last Admin: 03/23/23 09:10 Dose: 5 mg Haloperidol (Haloperidol 5 Mg Tablet) 15 mg PO BEDTIME [facility] Last Admin: 03/23/23 22:31 Dose: 15 mg Hydroxyzine HCl (Hydroxyzine Hcl 25 Mg Tablet) 25 mg PO Q6H PRN PRN Reason: Anxiety Last Admin: 03/22/23 21:17 Dose: 25 mg Insulin Human Lispro (Insulin Lispro 100 Unit/Ml 3 Ml Vial) 0 unit SUBCUT QIDACHS [facility]; Protocol Last Admin: 03/23/23 22:44 Dose: Not Given [facility] Carbonate ([facility] Carbonate Er 300 Mg Tablet.Er) 600 mg PO BID [facility] Last Admin: 03/23/23 22:32 Dose: 600 mg Loratadine (Loratadine 10 Mg Tablet) 10 mg PO DAILY [facility] Last Admin: 03/23/23 09:12 Dose: 10 mg Losartan Potassium (Losartan Potassium 25 Mg Tablet) 25 mg PO BEDTIME [facility]; Protocol Last Admin: 03/23/23 22:32 Dose: 25 mg Magnesium Hydroxide (Milk Of Magnesia 30 Ml Oral.Susp) 30 ml PO DAILY PRN PRN Reason: Constipation Metformin HCl (Metformin Hcl Er 500 Mg Tab.Er.24h) 500 mg PO DAILY@1800 [facility] Last Admin: 03/23/23 17:51 Dose: 500 mg Multivitamins/Vitamin C (Multivitamin Tablet) 1 tab PO DAILY [facility] Last Admin: 03/23/23 09:11 Dose: 1 tab Nicotine Polacrilex (Nicotine Polacrilex 2 Mg Gum) 4 mg BUCCAL Q2H PRN PRN Reason: Nicotine Cravings Olanzapine (Olanzapine 5 Mg Tablet) 5 mg PO TID PRN PRN Reason: agitation Last Admin: 03/23/23 22:33 Dose: 5 mg Omeprazole (Omeprazole 20 Mg Capsule.Dr) 20 mg PO DAILY [facility] Last Admin: 03/23/23 09:09 Dose: 20 mg Prazosin HCl (Prazosin Hcl 5 Mg Capsule) 5 mg PO BEDTIME [facility]; Protocol Last Admin: 03/23/23 22:31 Dose: 5 mg Sertraline HCl (Sertraline Hcl 100 Mg Tablet) 100 mg PO DAILY [facility] Last Admin: 03/23/23 09:08 Dose: 100 mg Trazodone HCl (Trazodone Hcl 50 Mg Tablet) 50 mg PO BEDTIME MRX1 PRN PRN Reason: Insomnia Last Admin: 03/24/23 00:01 Dose: 50 mg Allergies Allergies Allergy/AdvReac Type Severity Reaction Status Date / Time lisinopril Allergy Unknown Cough Verified 12/15/22 18:44 clonidine AdvReac Unknown Unknown Verified 11/19/22 16:28 Assessment & Plan Assessment & Plan (1) Schizoaffective disorder: Status: Acute Code(s): F25.9 - Schizoaffective disorder, unspecified Plan Patient is a 32 year old male with hx of Schizoaffective who was recently on M3 (02/2023)who was assessed by crisis d/t reporting suicidal ideation secondary to increased depressive symptoms. Plan: CV 15 minute safety checks continues home meds possible referral to php? discharge planning 03/24: Social with peers and staff. Pt reports feeling depressed ; pt stated, yesterday I found out that my sisters boyfriend threw her ashes away .Pt reports suicidal ideation with plan to cut myself . denies HI/VH/AH. Pt reports he refused his lithium this morning d/t not feeling well. [facility] decreased to 450mg PO BID. labs to be drawn today to determine lithium level. Patient educated on: diagnosis and medication risk/benefits Informed Consent: understands Reason for continued inpatient stay Substantial Risk for: harm to self and med/psych decompensation Time Spent With Patient Time: Total time managing care of this patient today _20___ minutes.
[2023-03-24] MEDS: Multivitamin TABLET 1 TAB PO (10:44)
[2023-03-24] MEDS: Omeprazole 20 MG CAPSULE.DR PO (10:44)
[2023-03-24] MEDS: Benztropine Mesylate 0.5 MG TABLET PO ×2 (10:44→22:25)
[2023-03-24] MEDS: Gabapentin 400 MG CAPSULE PO ×3 (10:44→21:16)
[2023-03-24] MEDS: amLODIPine Besylate 2.5 MG TABLET 7.5 MG PO (10:45)
[2023-03-24] MEDS: Loratadine 10 MG TABLET PO (10:45)
[2023-03-24] MEDS: HaloperidoL 5 MG TABLET PO (10:45)
[2023-03-24] MEDS: Sertraline HCL 100 MG TABLET PO (10:46)
[2023-03-24] MEDS: Fluticasone Propionate Nasal 16 GM SPRAY 1 SPRAY NOSTRIL-B (10:49)
[2023-03-24] MEDS: Acetaminophen 325 MG TABLET 650 MG PO ×2 (10:55→17:06)
[2023-03-24] MEDS: Lithium Carbonate ER 450 MG TABLET.ER PO ×2 (11:39→22:25)
[2023-03-24 12:33] LABS: Glucose, Whole Blood 105 mg/dL (60-115)
[2023-03-24] MEDS: Throat Lozenge, Medicated LOZENGE 1 LOZENGE MUCOUS MEM (12:42)
[2023-03-24 15:14] LABS: Lithium 0.35 mmol/L (0.60-1.20)
[2023-03-24 15:20] LABS: Anion Gap 13 (12-20); Blood Urea Nitrogen 20 mg/dL (9-16); Carbon Dioxide 25 mmol/L (22-29); Chloride 106 mmol/L (96-108); Creatinine Clr Calc Pharmacy 165.5; Estimated Glomerular Filt Rate > 60; Potassium 4.3 mmol/L (3.3-5.1); Sodium 140 mmol/L (135-145)
[2023-03-24 17:40] LABS: Glucose, Whole Blood 126 mg/dL (60-115)
[2023-03-24] MEDS: metFORMIN HCl ER 500 MG TAB.ER.24H PO (17:40)
[2023-03-24 21:22] VITALS: BP 146/80; PULSE 104; RESP 18; TEMP 36.8; O2SAT 97
[2023-03-24] MEDS: HaloperidoL 5 MG TABLET 15 MG PO (22:24)
[2023-03-24] MEDS: Losartan Potassium 25 MG TABLET PO (22:25)
[2023-03-24] MEDS: Prazosin HCL 5 MG CAPSULE PO (22:25)
[2023-03-24] MEDS: OLANZapine 5 MG TABLET PO (22:26)
[2023-03-24 22:38] LABS: Glucose, Whole Blood 123 mg/dL (60-115)
[2023-03-25] MEDS: Magnesium Hydrox/Alum Hydrox 30 ML ORAL.SUSP PO (00:42)
[2023-03-25 08:05] VITALS: BP 125/73; PULSE 99; RESP 18; TEMP 36.7; O2SAT 96
[2023-03-25] MEDS: Ferrous Sulfate 324 MG TABLET.DR PO (08:38)
[2023-03-25] MEDS: Sertraline HCL 100 MG TABLET PO (08:38)
[2023-03-25] MEDS: Loratadine 10 MG TABLET PO (08:38)
[2023-03-25] MEDS: HaloperidoL 5 MG TABLET PO (08:38)
[2023-03-25] MEDS: Omeprazole 20 MG CAPSULE.DR PO (08:38)
[2023-03-25] MEDS: Gabapentin 400 MG CAPSULE PO ×3 (08:38→22:41)
[2023-03-25] MEDS: Benztropine Mesylate 0.5 MG TABLET PO ×2 (08:38→22:36)
[2023-03-25] MEDS: Lithium Carbonate ER 450 MG TABLET.ER PO ×2 (08:38→22:41)
[2023-03-25] MEDS: Multivitamin TABLET 1 TAB PO (08:39)
[2023-03-25] MEDS: amLODIPine Besylate 2.5 MG TABLET 7.5 MG PO (08:39)
[2023-03-25] MEDS: Fluticasone Propionate Nasal 16 GM SPRAY 1 SPRAY NOSTRIL-B (08:41)
[2023-03-25 08:50] LABS: Glucose, Whole Blood 105 mg/dL (60-115)
[2023-03-25] MEDS: Acetaminophen 325 MG TABLET 650 MG PO ×2 (10:01→18:41)
[2023-03-25] MEDS: Capsaicin 0.025% Cream 60 GM TUBE 1 APPL TOPICAL (11:49)
[2023-03-25 13:02] LABS: Glucose, Whole Blood 143 mg/dL (60-115)
[2023-03-25] MEDS: OLANZapine 5 MG TABLET PO ×2 (13:34→22:36)
--- NOTE | 2023-03-25 16:35 | P.PNPSI_ITS ---
Subjective Subjective Date of Service: 03/25/23 Reason For Visit: Unspecified schizophrenia spectrum Interim History: pt reports he's feeling good, but real tired. appears well, smiling and active on the unit. agrees to try reduced dose of a.m. haldol, down to 2.5 mg from 5, to see how it affects how he is feeling. per staff, laughing, joking. c/o depressed mood. lithium 0.35. eating very well. Mental Status Exam Mental Status Exam Narrative: Pt is alert and oriented; behavior is cooperative, friendly and calm; dressed in casual attire; mood is described as feeling good ; eye contact appropriate; Speech is normal rate, volume and prosody and not pressured; thought process is organized; Thought content is on tx; otherwise pertinent to relevant topics and without any delusional content, paranoid ideations or grandiosity; no SI/HI/AVH expressed. Diagnostics Vital Signs (24Hr): Vital Signs - 24 hr 03/24/23 21:22 03/25/23 08:05 Temperature 98.2 F 98.0 F Pulse Rate 104 H 99 Respiratory Rate 18 18 Blood Pressure 146/80 H 125/73 Pulse Oximetry 97 96 Oxygen Delivery Method Room Air Room Air BMI result Body Mass Index 45.7 Labs 03/24/23 14:55 Labs: Laboratory Results - last 48 hr 03/23/23 03/23/23 03/24/23 17:27 22:13 07:50 Sodium Potassium Chloride Carbon Dioxide Anion Gap BUN Creatinine Estim Creat Clear Calc Estimated GFR POC Glucose 106 111 91 [place] 03/24/23 03/24/23 03/24/23 12:28 14:55 17:37 Sodium 140 Potassium 4.3 Chloride 106 Carbon Dioxide 25 Anion Gap 13 BUN 20 H Creatinine 0.85 Estim Creat Clear Calc 165.5 Estimated GFR > 60 POC Glucose 105 126 H [place] 0.35 L 03/24/23 03/25/23 03/25/23 22:32 08:36 12:58 Sodium Potassium Chloride Carbon Dioxide Anion Gap BUN Creatinine Estim Creat Clear Calc Estimated GFR POC Glucose 123 H 105 143 H [place] Medications Medications Current Medications Acetaminophen (Acetaminophen 325 Mg Tablet) 650 mg PO Q6H PRN PRN Reason: Headache/Pain Mild Scale (1-3) Last Admin: 03/25/23 10:01 Dose: 650 mg Al Hydroxide/Mg Hydroxide (Magnesium Hydrox/Alum Hydrox 30 Ml Oral.Susp) 30 ml PO Q6H PRN PRN Reason: Heartburn/Nausea Last Admin: 03/25/23 00:42 Dose: 30 ml Amlodipine Besylate (Amlodipine Besylate 2.5 Mg Tablet) 7.5 mg PO DAILY [facility]; Protocol Last Admin: 03/25/23 08:39 Dose: 7.5 mg Benzocaine (Throat Lozenge, Medicated Lozenge) 1 lozenge MUCOUS MEM Q2H PRN PRN Reason: Sore Throat Last Admin: 03/24/23 12:42 Dose: 1 lozenge Benztropine Mesylate (Benztropine Mesylate 0.5 Mg Tablet) 0.5 mg PO BID [facility] Last Admin: 03/25/23 08:38 Dose: 0.5 mg Capsaicin (Capsaicin 0.025% Cream 60 Gm Tube) 1 appl TOPICAL TID PRN; Protocol PRN Reason: Pain, Moderate(Pain Scale 4-6) Last Admin: 03/25/23 11:49 Dose: 1 appl Dextrose (Dextrose 50 % 25 Gm/50 Ml Syringe) 25 gm IVPUSH Q15M PRN; Protocol PRN Reason: per Hypoglycemia Standing Ord. Docusate Sodium (Docusate Sodium 100 Mg Capsule) 200 mg PO BID [facility] Last Admin: 03/25/23 08:41 Dose: Not Given Ferrous Sulfate (Ferrous Sulfate 324 Mg Tablet.Dr) 324 mg PO Q48H [facility] Last Admin: 03/25/23 08:38 Dose: 324 mg Fluticasone Propionate (Fluticasone Propionate Nasal 16 Gm [place]) 1 spray NOSTRIL-B DAILY [facility] Last Admin: 03/25/23 08:41 Dose: 1 spray Gabapentin (Gabapentin 400 Mg Capsule) 400 mg PO TID [facility] Last Admin: 03/25/23 15:03 Dose: 400 mg Glucose (Glucose Gel 15 Gm Gel..Gram.) 15 gm PO Q15M PRN; Protocol PRN Reason: per Hypoglycemia Standing Ord. Haloperidol (Haloperidol 5 Mg Tablet) 15 mg PO BEDTIME [facility] Last Admin: 03/24/23 22:24 Dose: 15 mg Haloperidol (Haloperidol 0.5 Mg Tablet) 2.5 mg PO DAILY [facility] Hydroxyzine HCl (Hydroxyzine Hcl 25 Mg Tablet) 25 mg PO Q6H PRN PRN Reason: Anxiety Last Admin: 03/22/23 21:17 Dose: 25 mg Insulin Human Lispro (Insulin Lispro 100 Unit/Ml 3 Ml Vial) 0 unit SUBCUT QIDACHS [facility]; Protocol Last Admin: 03/25/23 15:56 Dose: Not Given [place] Carbonate ([place] Carbonate Er 450 Mg Tablet.Er) 450 mg PO BID [facility] Last Admin: 03/25/23 08:38 Dose: 450 mg Loratadine (Loratadine 10 Mg Tablet) 10 mg PO DAILY [facility] Last Admin: 03/25/23 08:38 Dose: 10 mg Losartan Potassium (Losartan Potassium 25 Mg Tablet) 25 mg PO BEDTIME [facility]; Protocol Last Admin: 03/24/23 22:25 Dose: 25 mg Magnesium Hydroxide (Milk Of Magnesia 30 Ml Oral.Susp) 30 ml PO DAILY PRN PRN Reason: Constipation Metformin HCl (Metformin Hcl Er 500 Mg Tab.Er.24h) 500 mg PO DAILY@1800 [facility] Last Admin: 03/24/23 17:40 Dose: 500 mg Multivitamins/Vitamin C (Multivitamin Tablet) 1 tab PO DAILY [facility] Last Admin: 03/25/23 08:39 Dose: 1 tab Nicotine Polacrilex (Nicotine Polacrilex 2 Mg Gum) 4 mg BUCCAL Q2H PRN PRN Reason: Nicotine Cravings Olanzapine (Olanzapine 5 Mg Tablet) 5 mg PO TID PRN PRN Reason: agitation Last Admin: 03/25/23 13:34 Dose: 5 mg Omeprazole (Omeprazole 20 Mg Capsule.Dr) 20 mg PO DAILY [facility] Last Admin: 03/25/23 08:38 Dose: 20 mg Prazosin HCl (Prazosin Hcl 5 Mg Capsule) 5 mg PO BEDTIME [facility]; Protocol Last Admin: 03/24/23 22:25 Dose: 5 mg Sertraline HCl (Sertraline Hcl 100 Mg Tablet) 100 mg PO DAILY [facility] Last Admin: 03/25/23 08:38 Dose: 100 mg Trazodone HCl (Trazodone Hcl 50 Mg Tablet) 50 mg PO BEDTIME MRX1 PRN PRN Reason: Insomnia Last Admin: 03/24/23 23:30 Dose: 50 mg Allergies Allergies Allergy/AdvReac Type Severity Reaction Status Date / Time lisinopril Allergy Unknown Cough Verified 12/15/22 18:44 clonidine AdvReac Unknown Unknown Verified 11/19/22 16:28 Assessment & Plan Assessment & Plan (1) Schizoaffective disorder: Status: Acute Code(s): F25.9 - Schizoaffective disorder, unspecified Plan Patient is a 32 year old male with hx of Schizoaffective who was recently on M3 (02/2023)who was assessed by crisis d/t reporting suicidal ideation secondary to increased depressive symptoms. Plan: CV 15 minute safety checks continues home meds possible referral to php? discharge planning 03/24: Social with peers and staff. Pt reports feeling depressed ; pt stated, yesterday I found out that my sisters boyfriend threw her ashes away .Pt reports suicidal ideation with plan to cut myself . denies HI/VH/AH. Pt reports he refused his lithium this morning d/t not feeling well. [place] decreased to 450mg PO BID. labs to be drawn today to determine lithium level. 2/3: feeling good. decrease morning haldol from 5 mg to 2.5 mg due to c/o feeling tired. otherwise continue current mgmt. Reason for continued inpatient stay Substantial Risk for: inability to function and rapid decompensation Time Spent With Patient Time: Total time managing care of this patient today ____ minutes.
[2023-03-25] MEDS: metFORMIN HCl ER 500 MG TAB.ER.24H PO (17:33)
[2023-03-25] MEDS: Losartan Potassium 25 MG TABLET PO (22:36)
[2023-03-25 22:37] LABS: Glucose, Whole Blood 119 mg/dL (60-115)
[2023-03-25] MEDS: Prazosin HCL 5 MG CAPSULE PO (22:39)
[2023-03-25 22:40] VITALS: BP 140/84; PULSE 106; RESP 18; TEMP 36.6; O2SAT 96
[2023-03-25] MEDS: traZODone HCL 50 MG TABLET PO (22:41)
[2023-03-25] MEDS: HaloperidoL 5 MG TABLET 15 MG PO (22:41)
[2023-03-25] MEDS: Docusate Sodium 100 MG CAPSULE 200 MG PO (22:42)
[2023-03-26] MEDS: traZODone HCL 50 MG TABLET PO ×2 (00:49→22:40)
[2023-03-26 06:00] VITALS: BP 143/74; PULSE 107; RESP 16; TEMP 36.6; O2SAT 98
[2023-03-26] MEDS: Omeprazole 20 MG CAPSULE.DR PO (06:26)
[2023-03-26 08:30] LABS: Glucose, Whole Blood 130 mg/dL (60-115)
[2023-03-26 08:31] LABS: Lithium 0.23 mmol/L (0.60-1.20)
[2023-03-26] MEDS: Loratadine 10 MG TABLET PO (08:32)
[2023-03-26] MEDS: Docusate Sodium 100 MG CAPSULE 200 MG PO (08:32)
[2023-03-26] MEDS: amLODIPine Besylate 2.5 MG TABLET 7.5 MG PO (08:32)
[2023-03-26] MEDS: Sertraline HCL 100 MG TABLET PO (08:33)
[2023-03-26] MEDS: Lithium Carbonate ER 450 MG TABLET.ER PO ×2 (08:33→21:42)
[2023-03-26] MEDS: Benztropine Mesylate 0.5 MG TABLET PO ×2 (08:34→21:40)
[2023-03-26] MEDS: HaloperidoL 0.5 MG TABLET 2.5 MG PO (08:34)
[2023-03-26] MEDS: Gabapentin 400 MG CAPSULE PO ×3 (08:35→21:41)
[2023-03-26] MEDS: Multivitamin TABLET 1 TAB PO (08:35)
[2023-03-26] MEDS: Fluticasone Propionate Nasal 16 GM SPRAY 1 SPRAY NOSTRIL-B (08:35)
[2023-03-26] MEDS: Artificial Tears 15 ML DROPS 1 DROP EYE-BOTH ×4 (08:40→21:39)
--- NOTE | 2023-03-26 16:50 | PC.NURSE ---
Paulo Ro MD made aware of low [place] level
[2023-03-26] MEDS: Acetaminophen 325 MG TABLET 650 MG PO (16:58)
[2023-03-26] MEDS: metFORMIN HCl ER 500 MG TAB.ER.24H PO (16:58)
--- NOTE | 2023-03-26 18:46 | P.PNPSI_ITS ---
Subjective Subjective Date of Service: 03/26/23 Reason For Visit: Unspecified schizophrenia spectrum Interim History: asking to discharge due to peer yelling in his face and making him uncomfortable. concerned peer is trying to start a fight, pt is concerned he will have to hurt peer to defend himself. informed he will need to wait until tomorrow to begin discharge arrangements, as that is when SW will return. per staff, c/o dry eyes, helped with artificial tears. not attending groups that particular peer is attending. Mental Status Exam Mental Status Exam Narrative: Pt is alert and oriented; behavior is cooperative, friendly and calm; dressed in casual attire; mood is described as good ; eye contact appropriate; Speech is normal rate, volume and prosody and not pressured; thought process is organized; Thought content is on tx; otherwise pertinent to relevant topics and without any delusional content, paranoid ideations or grandiosity; no SI/HI/AVH expressed. Diagnostics Vital Signs (24Hr): Vital Signs - 24 hr 03/25/23 22:40 03/26/23 06:00 Temperature 97.8 F 97.8 F Pulse Rate 106 H 107 H Respiratory Rate 18 16 Blood Pressure 140/84 H 143/74 H Pulse Oximetry 96 98 Oxygen Delivery Method Room Air Room Air BMI result Body Mass Index 45.7 Labs 03/24/23 14:55 Labs: Laboratory Results - last 48 hr 03/24/23 03/25/23 03/25/23 22:32 08:36 12:58 POC Glucose 123 H 105 143 H [place] 03/25/23 03/26/23 03/26/23 22:32 07:48 08:24 POC Glucose 119 H 130 H [place] 0.23 L Medications Medications Current Medications Acetaminophen (Acetaminophen 325 Mg Tablet) 650 mg PO Q6H PRN PRN Reason: Headache/Pain Mild Scale (1-3) Last Admin: 03/26/23 16:58 Dose: 650 mg Al Hydroxide/Mg Hydroxide (Magnesium Hydrox/Alum Hydrox 30 Ml Oral.Susp) 30 ml PO Q6H PRN PRN Reason: Heartburn/Nausea Last Admin: 03/25/23 00:42 Dose: 30 ml Amlodipine Besylate (Amlodipine Besylate 2.5 Mg Tablet) 7.5 mg PO DAILY [facility]; Protocol Last Admin: 03/26/23 08:32 Dose: 7.5 mg Artificial Tears (Artificial Tears 15 Ml Drops) 1 drop EYE-BOTH Q1H PRN PRN Reason: Dry Eyes Last Admin: 03/26/23 16:05 Dose: 1 drop Benzocaine (Throat Lozenge, Medicated Lozenge) 1 lozenge MUCOUS MEM Q2H PRN PRN Reason: Sore Throat Last Admin: 03/24/23 12:42 Dose: 1 lozenge Benztropine Mesylate (Benztropine Mesylate 0.5 Mg Tablet) 0.5 mg PO BID [facility] Last Admin: 03/26/23 08:34 Dose: 0.5 mg Capsaicin (Capsaicin 0.025% Cream 60 Gm Tube) 1 appl TOPICAL TID PRN; Protocol PRN Reason: Pain, Moderate(Pain Scale 4-6) Last Admin: 03/25/23 11:49 Dose: 1 appl Dextrose (Dextrose 50 % 25 Gm/50 Ml Syringe) 25 gm IVPUSH Q15M PRN; Protocol PRN Reason: per Hypoglycemia Standing Ord. Docusate Sodium (Docusate Sodium 100 Mg Capsule) 200 mg PO BID [facility] Last Admin: 03/26/23 08:32 Dose: 200 mg Ferrous Sulfate (Ferrous Sulfate 324 Mg Tablet.Dr) 324 mg PO Q48H [facility] Last Admin: 03/25/23 08:38 Dose: 324 mg Fluticasone Propionate (Fluticasone Propionate Nasal 16 Gm [place]) 1 spray NOSTRIL-B DAILY [facility] Last Admin: 03/26/23 08:35 Dose: 1 spray Gabapentin (Gabapentin 400 Mg Capsule) 400 mg PO TID [facility] Last Admin: 03/26/23 15:35 Dose: 400 mg Glucose (Glucose Gel 15 Gm Gel..Gram.) 15 gm PO Q15M PRN; Protocol PRN Reason: per Hypoglycemia Standing Ord. Haloperidol (Haloperidol 5 Mg Tablet) 15 mg PO BEDTIME [facility] Last Admin: 03/25/23 22:41 Dose: 15 mg Haloperidol (Haloperidol 0.5 Mg Tablet) 2.5 mg PO DAILY [facility] Last Admin: 03/26/23 08:34 Dose: 2.5 mg Hydroxyzine HCl (Hydroxyzine Hcl 25 Mg Tablet) 25 mg PO Q6H PRN PRN Reason: Anxiety Last Admin: 03/22/23 21:17 Dose: 25 mg Insulin Human Lispro (Insulin Lispro 100 Unit/Ml 3 Ml Vial) 0 unit SUBCUT QIDACHS [facility]; Protocol Last Admin: 03/26/23 16:43 Dose: Not Given [place] Carbonate ([place] Carbonate Er 450 Mg Tablet.Er) 450 mg PO BID [facility] Last Admin: 03/26/23 08:33 Dose: 450 mg Loratadine (Loratadine 10 Mg Tablet) 10 mg PO DAILY [facility] Last Admin: 03/26/23 08:32 Dose: 10 mg Losartan Potassium (Losartan Potassium 25 Mg Tablet) 25 mg PO BEDTIME [facility]; Protocol Last Admin: 03/25/23 22:36 Dose: 25 mg Magnesium Hydroxide (Milk Of Magnesia 30 Ml Oral.Susp) 30 ml PO DAILY PRN PRN Reason: Constipation Metformin HCl (Metformin Hcl Er 500 Mg Tab.Er.24h) 500 mg PO DAILY@1800 [facility] Last Admin: 03/26/23 16:58 Dose: 500 mg Multivitamins/Vitamin C (Multivitamin Tablet) 1 tab PO DAILY [facility] Last Admin: 03/26/23 08:35 Dose: 1 tab Nicotine Polacrilex (Nicotine Polacrilex 2 Mg Gum) 4 mg BUCCAL Q2H PRN PRN Reason: Nicotine Cravings Olanzapine (Olanzapine 5 Mg Tablet) 5 mg PO TID PRN PRN Reason: agitation Last Admin: 03/25/23 22:36 Dose: 5 mg Omeprazole (Omeprazole 20 Mg Capsule.Dr) 20 mg PO DAILY [facility] Last Admin: 03/26/23 06:26 Dose: 20 mg Prazosin HCl (Prazosin Hcl 5 Mg Capsule) 5 mg PO BEDTIME [facility]; Protocol Last Admin: 03/25/23 22:39 Dose: 5 mg Sertraline HCl (Sertraline Hcl 100 Mg Tablet) 100 mg PO DAILY [facility] Last Admin: 03/26/23 08:33 Dose: 100 mg Trazodone HCl (Trazodone Hcl 50 Mg Tablet) 50 mg PO BEDTIME MRX1 PRN PRN Reason: Insomnia Last Admin: 03/26/23 00:49 Dose: 50 mg Allergies Allergies Allergy/AdvReac Type Severity Reaction Status Date / Time lisinopril Allergy Unknown Cough Verified 12/15/22 18:44 clonidine AdvReac Unknown Unknown Verified 11/19/22 16:28 Assessment & Plan Assessment & Plan (1) Schizoaffective disorder: Status: Acute Code(s): F25.9 - Schizoaffective disorder, unspecified Plan Patient is a 32 year old male with hx of Schizoaffective who was recently on M3 (02/2023)who was assessed by crisis d/t reporting suicidal ideation secondary to increased depressive symptoms. Plan: CV 15 minute safety checks continues home meds possible referral to php? discharge planning 03/24: Social with peers and staff. Pt reports feeling depressed ; pt stated, yesterday I found out that my sisters boyfriend threw her ashes away .Pt reports suicidal ideation with plan to cut myself . denies HI/VH/AH. Pt reports he refused his lithium this morning d/t not feeling well. [place] decreased to 450mg PO BID. labs to be drawn today to determine lithium level. 2/3: feeling good. decrease morning haldol from 5 mg to 2.5 mg due to c/o feeling tired. otherwise continue current mgmt. 2/4: asking to discharge due to aggressive and volatile peer. will begin discharge planning tomorrow. continue current mgmt. Reason for continued inpatient stay Substantial Risk for: stable for discharge Time Spent With Patient Time: Total time managing care of this patient today ____ minutes.
[2023-03-26 19:35] VITALS: BP 155/86; PULSE 107; RESP 18; TEMP 37.1; O2SAT 96
[2023-03-26 21:37] LABS: Glucose, Whole Blood 147 mg/dL (60-115)
[2023-03-26] MEDS: HaloperidoL 5 MG TABLET 15 MG PO (21:40)
[2023-03-26] MEDS: Losartan Potassium 25 MG TABLET PO (21:41)
[2023-03-26] MEDS: Prazosin HCL 5 MG CAPSULE PO (21:42)
[2023-03-26] MEDS: OLANZapine 5 MG TABLET PO (23:16)
[2023-03-26] MEDS: hydrOXYzine HCL 25 MG TABLET PO (23:16)
[2023-03-27 07:45] VITALS: BP 148/94; PULSE 93; RESP 16; TEMP 36.1; O2SAT 99
[2023-03-27 08:01] LABS: Glucose, Whole Blood 99 mg/dL (60-115)
[2023-03-27] MEDS: Loratadine 10 MG TABLET PO (08:21)
[2023-03-27] MEDS: Benztropine Mesylate 0.5 MG TABLET PO ×2 (08:21→22:03)
[2023-03-27] MEDS: Sertraline HCL 100 MG TABLET PO (08:21)
[2023-03-27] MEDS: Ferrous Sulfate 324 MG TABLET.DR PO (08:21)
[2023-03-27] MEDS: Omeprazole 20 MG CAPSULE.DR PO (08:21)
[2023-03-27] MEDS: Lithium Carbonate ER 450 MG TABLET.ER PO ×2 (08:21→22:03)
[2023-03-27] MEDS: amLODIPine Besylate 2.5 MG TABLET 7.5 MG PO (08:21)
[2023-03-27] MEDS: Multivitamin TABLET 1 TAB PO (08:22)
[2023-03-27] MEDS: HaloperidoL 0.5 MG TABLET 2.5 MG PO (08:22)
[2023-03-27] MEDS: Docusate Sodium 100 MG CAPSULE 200 MG PO ×2 (08:22→22:04)
[2023-03-27] MEDS: Gabapentin 400 MG CAPSULE PO ×3 (08:22→22:05)
[2023-03-27] MEDS: Fluticasone Propionate Nasal 16 GM SPRAY 1 SPRAY NOSTRIL-B (08:29)
[2023-03-27] MEDS: Artificial Tears 15 ML DROPS 1 DROP EYE-BOTH (08:29)
[2023-03-27] MEDS: Throat Lozenge, Medicated LOZENGE 1 LOZENGE MUCOUS MEM ×2 (12:07→14:19)
[2023-03-27] MEDS: Acetaminophen 325 MG TABLET 650 MG PO ×2 (12:07→19:35)
--- NOTE | 2023-03-27 15:24 | P.PNPSI_ITS ---
Subjective Subjective Date of Service: 03/27/23 Reason For Visit: Unspecified schizophrenia spectrum Interim History: upset not to be getting discharged today. informed that there will be a treaters' mtg tomorrow and he may be discharged after. states he will not attend meeting and he will be calling his work and family life consultant. exits interview room to do so. later finds MD and apologizes for his rudeness. per staff, 3-day up weds. c/o 11/29 anx/dep but laughing and joking. + grps. difficult to redirect. slept well. Mental Status Exam Mental Status Exam Narrative: Pt is alert and oriented; behavior is variable; dressed in casual attire; mood is described as good ; eye contact appropriate; Speech is normal rate, volume and prosody and not pressured; thought process is organized; Thought content is on D/C; otherwise pertinent to relevant topics and without any delusional content, paranoid ideations or grandiosity; no SI/HI/AVH expressed. Diagnostics Vital Signs (24Hr): Vital Signs - 24 hr 03/26/23 19:35 03/27/23 07:45 Temperature 98.8 F 97.0 F Pulse Rate 107 H 93 Respiratory Rate 18 16 Blood Pressure 155/86 H 148/94 H Pulse Oximetry 96 99 Oxygen Delivery Method Room Air Room Air BMI result Body Mass Index 45.7 Labs 03/24/23 14:55 Labs: Laboratory Results - last 48 hr 03/25/23 03/26/23 03/26/23 22:32 07:48 08:24 POC Glucose 119 H 130 H [place] 0.23 L 03/26/23 03/27/23 21:32 07:50 POC Glucose 147 H 99 [place] Medications Medications Current Medications Acetaminophen (Acetaminophen 325 Mg Tablet) 650 mg PO Q6H PRN PRN Reason: Headache/Pain Mild Scale (1-3) Last Admin: 03/27/23 12:07 Dose: 650 mg Al Hydroxide/Mg Hydroxide (Magnesium Hydrox/Alum Hydrox 30 Ml Oral.Susp) 30 ml PO Q6H PRN PRN Reason: Heartburn/Nausea Last Admin: 03/25/23 00:42 Dose: 30 ml Amlodipine Besylate (Amlodipine Besylate 2.5 Mg Tablet) 7.5 mg PO DAILY [facility]; Protocol Last Admin: 03/27/23 08:21 Dose: 7.5 mg Artificial Tears (Artificial Tears 15 Ml Drops) 1 drop EYE-BOTH Q1H PRN PRN Reason: Dry Eyes Last Admin: 03/27/23 08:29 Dose: 1 drop Benzocaine (Throat Lozenge, Medicated Lozenge) 1 lozenge MUCOUS MEM Q2H PRN PRN Reason: Sore Throat Last Admin: 03/27/23 14:19 Dose: 1 lozenge Benztropine Mesylate (Benztropine Mesylate 0.5 Mg Tablet) 0.5 mg PO BID [facility] Last Admin: 03/27/23 08:21 Dose: 0.5 mg Capsaicin (Capsaicin 0.025% Cream 60 Gm Tube) 1 appl TOPICAL TID PRN; Protocol PRN Reason: Pain, Moderate(Pain Scale 4-6) Last Admin: 03/25/23 11:49 Dose: 1 appl Dextrose (Dextrose 50 % 25 Gm/50 Ml Syringe) 25 gm IVPUSH Q15M PRN; Protocol PRN Reason: per Hypoglycemia Standing Ord. Docusate Sodium (Docusate Sodium 100 Mg Capsule) 200 mg PO BID [facility] Last Admin: 03/27/23 08:22 Dose: 200 mg Ferrous Sulfate (Ferrous Sulfate 324 Mg Tablet.Dr) 324 mg PO Q48H [facility] Last Admin: 03/27/23 08:21 Dose: 324 mg Fluticasone Propionate (Fluticasone Propionate Nasal 16 Gm [place]) 1 spray NOSTRIL-B DAILY [facility] Last Admin: 03/27/23 08:29 Dose: 1 spray Gabapentin (Gabapentin 400 Mg Capsule) 400 mg PO TID [facility] Last Admin: 03/27/23 14:19 Dose: 400 mg Glucose (Glucose Gel 15 Gm Gel..Gram.) 15 gm PO Q15M PRN; Protocol PRN Reason: per Hypoglycemia Standing Ord. Haloperidol (Haloperidol 5 Mg Tablet) 15 mg PO BEDTIME [facility] Last Admin: 03/26/23 21:40 Dose: 15 mg Haloperidol (Haloperidol 0.5 Mg Tablet) 2.5 mg PO DAILY [facility] Last Admin: 03/27/23 08:22 Dose: 2.5 mg Hydroxyzine HCl (Hydroxyzine Hcl 25 Mg Tablet) 25 mg PO Q6H PRN PRN Reason: Anxiety Last Admin: 03/26/23 23:16 Dose: 25 mg [place] Carbonate ([place] Carbonate Er 450 Mg Tablet.Er) 450 mg PO BID [facility] Last Admin: 03/27/23 08:21 Dose: 450 mg Loratadine (Loratadine 10 Mg Tablet) 10 mg PO DAILY [facility] Last Admin: 03/27/23 08:21 Dose: 10 mg Losartan Potassium (Losartan Potassium 25 Mg Tablet) 25 mg PO BEDTIME [facility]; Protocol Last Admin: 03/26/23 21:41 Dose: 25 mg Magnesium Hydroxide (Milk Of Magnesia 30 Ml Oral.Susp) 30 ml PO DAILY PRN PRN Reason: Constipation Metformin HCl (Metformin Hcl Er 500 Mg Tab.Er.24h) 500 mg PO DAILY@1800 [facility] Last Admin: 03/26/23 16:58 Dose: 500 mg Multivitamins/Vitamin C (Multivitamin Tablet) 1 tab PO DAILY [facility] Last Admin: 03/27/23 08:22 Dose: 1 tab Nicotine Polacrilex (Nicotine Polacrilex 2 Mg Gum) 4 mg BUCCAL Q2H PRN PRN Reason: Nicotine Cravings Olanzapine (Olanzapine 5 Mg Tablet) 5 mg PO TID PRN PRN Reason: agitation Last Admin: 03/26/23 23:16 Dose: 5 mg Omeprazole (Omeprazole 20 Mg Capsule.Dr) 20 mg PO DAILY [facility] Last Admin: 03/27/23 08:21 Dose: 20 mg Prazosin HCl (Prazosin Hcl 5 Mg Capsule) 5 mg PO BEDTIME [facility]; Protocol Last Admin: 03/26/23 21:42 Dose: 5 mg Sertraline HCl (Sertraline Hcl 100 Mg Tablet) 100 mg PO DAILY [facility] Last Admin: 03/27/23 08:21 Dose: 100 mg Trazodone HCl (Trazodone Hcl 50 Mg Tablet) 50 mg PO BEDTIME MRX1 PRN PRN Reason: Insomnia Last Admin: 03/26/23 22:40 Dose: 50 mg Allergies Allergies Allergy/AdvReac Type Severity Reaction Status Date / Time lisinopril Allergy Unknown Cough Verified 12/15/22 18:44 clonidine AdvReac Unknown Unknown Verified 11/19/22 16:28 Assessment & Plan Assessment & Plan (1) Schizoaffective disorder: Status: Acute Code(s): F25.9 - Schizoaffective disorder, unspecified Plan Patient is a 32 year old male with hx of Schizoaffective who was recently on M3 (02/2023)who was assessed by crisis d/t reporting suicidal ideation secondary to increased depressive symptoms. Plan: CV 15 minute safety checks continues home meds possible referral to php? discharge planning 03/24: Social with peers and staff. Pt reports feeling depressed ; pt stated, yesterday I found out that my sisters boyfriend threw her ashes away .Pt reports suicidal ideation with plan to cut myself . denies HI/VH/AH. Pt reports he refused his lithium this morning d/t not feeling well. [place] decreased to 450mg PO BID. labs to be drawn today to determine lithium level. 2: feeling good. decrease morning haldol from 5 mg to 2.5 mg due to c/o feeling tired. otherwise continue current mgmt. 03/26: asking to discharge due to aggressive and volatile peer. will begin discharge planning tomorrow. continue current mgmt. 03/27: per [facility] treatmarg[facility]' mtg tomorrow, pt may discharge after. check labs in a.m. pt appears at baseline. Reason for continued inpatient stay Substantial Risk for: inability to function and rapid decompensation Time Spent With Patient Time: Total time managing care of this patient today _35___ minutes.
[2023-03-27] MEDS: metFORMIN HCl ER 500 MG TAB.ER.24H PO (17:52)
[2023-03-27 21:30] LABS: Glucose, Whole Blood 111 mg/dL (60-115)
[2023-03-27 21:55] VITALS: BP 143/82; PULSE 97; RESP 18; TEMP 36.9; O2SAT 97
[2023-03-27] MEDS: Losartan Potassium 25 MG TABLET PO (22:03)
[2023-03-27] MEDS: HaloperidoL 5 MG TABLET 15 MG PO (22:03)
[2023-03-27] MEDS: Prazosin HCL 5 MG CAPSULE PO (22:03)
[2023-03-27] MEDS: traZODone HCL 50 MG TABLET PO (22:55)
[2023-03-28] MEDS: hydrOXYzine HCL 25 MG TABLET PO (01:42)
[2023-03-28] MEDS: Acetaminophen 325 MG TABLET 650 MG PO (01:42)
[2023-03-28] MEDS: OLANZapine 5 MG TABLET PO (01:42)
[2023-03-28] MEDS: Throat Lozenge, Medicated LOZENGE 1 LOZENGE MUCOUS MEM (02:52)
[2023-03-28 07:15] VITALS: BP 138/63; PULSE 85; RESP 20; TEMP 36.3; O2SAT 95
[2023-03-28 08:26] LABS: Glucose, Whole Blood 88 mg/dL (60-115)
[2023-03-28] MEDS: Gabapentin 400 MG CAPSULE PO (08:32)
[2023-03-28] MEDS: Docusate Sodium 100 MG CAPSULE 200 MG PO (08:32)
[2023-03-28] MEDS: HaloperidoL 0.5 MG TABLET 2.5 MG PO (08:33)
[2023-03-28] MEDS: Multivitamin TABLET 1 TAB PO (08:33)
[2023-03-28] MEDS: Benztropine Mesylate 0.5 MG TABLET PO (08:34)
[2023-03-28] MEDS: amLODIPine Besylate 2.5 MG TABLET 7.5 MG PO (08:34)
[2023-03-28] MEDS: Lithium Carbonate ER 450 MG TABLET.ER PO (08:34)
[2023-03-28] MEDS: Omeprazole 20 MG CAPSULE.DR PO (08:34)
[2023-03-28] MEDS: Sertraline HCL 100 MG TABLET PO (08:34)
[2023-03-28] MEDS: Loratadine 10 MG TABLET PO (08:35)
[2023-03-28] MEDS: Fluticasone Propionate Nasal 16 GM SPRAY 1 SPRAY NOSTRIL-B (08:35)
[2023-03-28 08:37] LABS: Lithium 0.23 mmol/L (0.60-1.20)
[2023-03-28 08:44] LABS: Anion Gap 12 (12-20); Blood Urea Nitrogen 14 mg/dL (9-16); Calcium 9.5 mg/dL (8.4-10.2); Carbon Dioxide 31 mmol/L (22-29); Chloride 102 mmol/L (96-108); Estimated Glomerular Filt Rate > 60; Glucose Random 91 mg/dL (60-115); Potassium 4.2 mmol/L (3.3-5.1); Sodium 141 mmol/L (135-145)
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
== END 2023-03-28 11:59 | disposition home or self-care (01) | DRG 885 ==
PROVIDERS: Psychiatry & Neurology Psychiatry; Registered Nurse; Admitting Provider Psychiatry & Neurology Psychiatry; Visit Provider Psychiatry & Neurology Psychiatry
DX: F25.0 Schizoaffective disorder, bipolar type (principal); R45.851 Suicidal ideations; Z68.42 Body mass index [BMI] 45.0-49.9, adult; E11.9 Type 2 diabetes mellitus without complications; K21.9 Gastro-esophageal reflux disease without esophagitis; I10 Essential (primary) hypertension; L84 Corns and callosities; E66.01 Morbid (severe) obesity due to excess calories; Z79.51 Long term (current) use of inhaled steroids; Z79.84 Long term (current) use of oral hypoglycemic drugs; Z79.899 Other long term (current) drug therapy
CPT/HCPCS: 36415; 80048; 80051; 80053; 80178; 82565; 82947; 84520

== ENCOUNTER → 2023-03-22 17:13 | Outpatient (BNV) | payer OTHER, SELFPAY | PROVIDERS: Admitting Provider Psychiatry & Neurology Psychiatry; Visit Provider Physician Assistant | DX: I10 Essential (primary) hypertension (principal); E11.8 Type 2 diabetes mellitus with unspecified complications; Z79.84 Long term (current) use of oral hypoglycemic drugs; K21.9 Gastro-esophageal reflux disease without esophagitis | CPT/HCPCS: 99222 ==

== ENCOUNTER → 2023-03-22 17:13 | Outpatient (BNV) | payer OTHER, SELFPAY | PROVIDERS: Admitting Provider Psychiatry & Neurology Psychiatry; Responsible Provider Registered Nurse; Visit Provider Registered Nurse | DX: F25.0 Schizoaffective disorder, bipolar type (principal) | CPT/HCPCS: 90792; 99231; 99232; 99239 ==

== ENCOUNTER 2023-09-06 22:39 | Emergency (ER) | payer OTHER, SELFPAY ==
--- NOTE | 2023-09-06 | ECG_ITS ---
Test Reason : CHEST PAIN Blood Pressure : / mmHG Vent. Rate : 084 BPM Atrial Rate : 084 BPM P-R Int : 176 ms QRS Dur : 084 ms QT Int : 346 ms P-R-T Axes : 042 018 029 degrees QTc Int : 408 ms Normal sinus rhythm Inferior infarct , age undetermined Abnormal ECG No previous ECGs available Referred By: Generic ED Physician Electronically Signed By:LEDY WEINBERG MD
--- NOTE | ~2023-09-06 | XR_ITS ---
EXAMINATION: XR CHEST CLINICAL INFORMATION: Chest pain. COMPARISON: None available. TECHNIQUE: Frontal view of the chest was obtained. FINDINGS: No significant abnormality is noted involving the heart, lungs, mediastinum, bony thorax or soft tissues. XR/XR chest 1V IMPRESSION: Unremarkable examination.
[2023-09-06 22:42] VITALS: BP 114/75; PULSE 91; O2SAT 95
[2023-09-06 22:53] VITALS: BMI 50.2
[2023-09-06 22:59] VITALS: BP 143/74; PULSE 86; RESP 16; TEMP 36.7; O2SAT 94
[2023-09-06 23:12] LABS: Basophils Absolute Auto 0.1 X10*3/uL (0.0-0.2); Basophils Percent Auto 0.5 % (0-2); Eosinophils Absolute Auto 0.3 X10*3/uL (0.0-0.4); Eosinophils Percent Auto 3.2 % (0-4); Hematocrit 42.1 % (42.0-52.0); Hemoglobin 13.8 g/dl (14.0-18.0); Imm Gran Abs Auto 0.05 X10*3/uL (0.00-0.03); Imm Gran Pct Auto 0.5 % (0.0-0.4); Lymphocytes Absolute Auto 2.6 X10*3/uL (1.2-4.9); Lymphocytes Percent Auto 24.7 % (20-40); MANUAL DIFF FLAG NO; Mean Corpuscular HGB Conc 32.8 g/dl (31.0-36.0); Mean Corpuscular Hemoglobin 27.8 pg (27.0-33.0); Mean Corpuscular Volume 84.9 fL (80.0-98.0); Mean Platelet Volume 9.8 fL (9.4-12.4); Monocytes Absolute Auto 0.9 X10*3/uL (0.1-1.2); Monocytes Percent Auto 8.8 % (2-11); Neutrophils Absolute Auto 6.6 x10*3/uL (2.0-8.3); Neutrophils Percent Auto 62.3 % (45-73); Platelet Count 256 X10*3/uL (160-400); Red Blood Count 4.96 X10*6/uL (4.60-5.80); Red Cell Distribution Width 12.6 % (11.0-16.0); White Blood Count 10.5 X10*3/uL (4.8-10.8)
[2023-09-06 23:28] LABS: Alanine Aminotransferase 17 U/L (0-40); Albumin Level 4.1 g/dL (3.5-5.0); Alkaline Phosphatase 57 U/L (39-117); Anion Gap 14 (12-20); Aspartate Amino Transferase 19 U/L (5-37); Bilirubin Total 0.2 mg/dL (0.0-1.0); Blood Urea Nitrogen 13 mg/dL (9-16); Calcium 9.5 mg/dL (8.4-10.2); Carbon Dioxide 29 mmol/L (22-29); Chloride 102 mmol/L (96-108); Creatinine Clr Calc Pharmacy 164.7; Estimated Glomerular Filt Rate > 60; Glucose Random 95 mg/dL (60-115); Potassium 4.4 mmol/L (3.3-5.1); Sodium 141 mmol/L (135-145); Total Protein 6.8 g/dL (6.5-8.0)
[2023-09-06 23:33] LABS: Troponin-I High Sensitivity 4.9 ng/L (<3.5-35.0)
--- OUTSIDE RECORDS SUMMARY | 2023-09-06 23:39 | XMS_ITS | Continuity of Care Document ---
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 COUNT & DIFF WBC 8.6 k/mm3 ()?? 04/08/2023 00:58 RBC 4.90 m/mm3 ()?? 04/08/2023 00:58 Hgb 13.2 Gm/dL (Low)?? 04/08/2023 00:58 Hct 41.1 % ()?? 04/08/2023 00:58 MCV 83.9 femtoliters ()?? 04/08/2023 00:58 MCH 26.9 pg (Low)?? 04/08/2023 00:58 MCHC 32.1 g/dL (Low)?? 04/08/2023 00:58 Platelet Count 294 k/mm3 ()?? 04/08/2023 00:58 RDW-SD 38.1 femtoliters ()?? 04/08/2023 00:58 MPV 10.0 femtoliters ()?? 04/08/2023 00:58 Nucleated RBC (Automated) 0.0 #/100 WBC'S ()?? 04/08/2023 00:58 Abs. NRBC 0.0 k/mm3 ()?? 04/08/2023 00:58 Abs. Neut 4.6 k/mm3 ()?? 04/08/2023 00:58 Abs. Lymph 2.8 k/mm3 ()?? 04/08/2023 00:58 Abs. Yolo 0.9 k/mm3 ()?? 04/08/2023 00:58 Abs. Eo 0.3 k/mm3 ()?? 04/08/2023 00:58 Abs. Baso 0.1 k/mm3 ()?? 04/08/2023 00:58 Neut % 53.1 % ()?? 04/08/2023 00:58 Lymph % 32.0 % ()?? 04/08/2023 00:58 Yolo % 10.7 % (High)?? 04/08/2023 00:58 Eos % 2.9 % ()?? 04/08/2023 00:58 Baso % 0.7 % ()?? 04/08/2023 00:58 Imm Gran 0.6 % ()?? 04/08/2023 00:58 Abs. Imm Gran 0.1 k/mm3 ()?? 04/08/2023 00:58 ?? BLOOD GAS CO % (Carboxyhemoglobin) 2 % ()?? 04/08/2023 00:58 ?? CHEM GENERAL Sodium 137 mmol/L ()?? 04/08/2023 00:58 Potassium 4.1 mmol/L ()?? 04/08/2023 00:58 Chloride 103 mmol/L ()?? 04/08/2023 00:58 Bicarbonate Level 23 mmol/L ()?? 04/08/2023 00:58 Anion Gap 11 ()?? 04/08/2023 00:58 Glucose Level 104 mg/dL (High)?? 04/08/2023 00:58 Glucose, POC 97 mg/dL ()?? 04/08/2023 00:56 BUN 13 mg/dL ()?? 04/08/2023 00:58 Creatinine-Blood 0.9 mg/dL ()?? 04/08/2023 00:58 Estimated GFR Creatinine 115 ML/MIN/1.73 M2 ()?? 04/08/2023 00:58 Calcium 8.7 mg/dL ()?? 04/08/2023 00:58 Magnesium 2.0 mg/dL ()?? 04/08/2023 00:58 Protein, Total 6.7 Gm/dL ()?? 04/08/2023 00:58 Albumin 4.5 Gm/dL ()?? 04/08/2023 00:58 AG Ratio 2.0 ()?? 04/08/2023 00:58 Alkaline Phosphatase 52 units/L ()?? 04/08/2023 00:58 AST (SGOT) 49 units/L (High)?? 04/08/2023 00:58 ALT (SGPT) 29 units/L ()?? 04/08/2023 00:58 Bilirubin, Total 0.2 mg/dL ()?? 04/08/2023 00:58 ?? ENDOCRINE/TUMOR MARKER TSH 1.16 uIU/mL ()?? 04/08/2023 00:58 ?? TOXICOLOGY/TDM Ethanol, Serum or Plasma NONE DETECTED mg/dL ()?? 04/08/2023 00:58 Ak Chin Level 0.1 mmol/L (Low)?? 04/08/2023 00:58 ?? VIROLOGY Influenza A PCR NEGATIVE ()?? 04/08/2023 03:50 Influenza B PCR NEGATIVE ()?? 04/08/2023 03:50 RSV PCR NEGATIVE ()?? 04/08/2023 03:50 COVID-19 PCR Specimen Source NASAL ()?? 04/08/2023 03:50 COVID-19 PCR Result NEGATIVE ()?? 04/08/2023 03:50 ? Abnormal Labs ?? BLOOD COUNT & DIFF ??Abs. Imm Gran ??0.1 k/mm3 () ??04/08/2023 00:58 ??Abs. NRBC ??0.0 k/mm3 () ??04/08/2023 00:58 ??Hgb ??13.2 Gm/dL (Low) ??04/08/2023 00:58 ??Imm Gran ??0.6 % () ??04/08/2023 00:58 ??MCH ??26.9 pg (Low) ??04/08/2023 00:58 ??MCHC ??32.1 g/dL (Low) ??04/08/2023 00:58 ??Yolo % ??10.7 % (High) ??04/08/2023 00:58 ??Nucleated RBC (Automated) ??0.0 #/100 WBC'S () ??04/08/2023 00:58 ??RDW-SD ??38.1 femtoliters () ??04/08/2023 00:58 ? CHEM GENERAL ??AG Ratio ??2.0 () ??04/08/2023 00:58 ??AST (SGOT) ??49 units/L (High) ??04/08/2023 00:58 ??Estimated GFR Creatinine ??115 ML/MIN/1.73 M2 () ??04/08/2023 00:58 ??Glucose Level ??104 mg/dL (High) ??04/08/2023 00:58 ? TOXICOLOGY/TDM ??Ethanol, Serum or Plasma ??NONE DETECTED mg/dL () ??04/08/2023 00:58 ??Ak Chin Level ??0.1 mmol/L (Low) ??04/08/2023 00:58 ? VIROLOGY ??COVID-19 PCR Result ??NEGATIVE () ??04/08/2023 03:50 ??COVID-19 PCR Specimen Source ??NASAL () ??04/08/2023 03:50 ??Influenza A PCR ??NEGATIVE () ??04/08/2023 03:50 ??Influenza B PCR ??NEGATIVE () ??04/08/2023 03:50 ??RSV PCR ??NEGATIVE () ??04/08/2023 03:50 ? Note: Critical results are displayed in red. ? Blood Glucose Trend Glucose Level:??104 mg/dL??High (04/08/23 00:58:00) Glucose, POC: 97 mg/dL (04/08/23 00:56:00) ? CBC, CBC w/Diff?? CBC?? Differential?? WBC: 8.6 k/mm3 (00:58) Abs. Neut: 4.6 k/mm3 (00:58) RBC: 4.9 m/mm3 (00:58) Abs. Lymph: 2.8 k/mm3 (00:58) Hct: 41.1 % (00:58) Abs. Yolo: 0.9 k/mm3 (00:58) RDW-SD: 38.1 femtoliters (00:58) Abs. Eo: 0.3 k/mm3 (00:58) Nucleated RBC (Automated): 0 #/100 WBC'S (00:58) Abs. Baso: 0.1 k/mm3 (00:58) Abs. NRBC: 0 k/mm3 (00:58) Neut %: 53.1 % (00:58) ?? Lymph %: 32 % (00:58) ?? Yolo %:??10.7 %??High (00:58) ?? Eos %: 2.9 % (00:58) ?? Baso %: 0.7 % (00:58) ?? Imm Gran: 0.6 % (00:58) ?? Abs. Imm Gran: 0.1 k/mm3 (00:58) ? BMP, Mg, and Phos Anion Gap: 11 (00:58) Bicarbonate Level: 23 mmol/L (00:58) BUN: 13 mg/dL (00:58) Calcium: 8.7 mg/dL (00:58) Chloride: 103 mmol/L (00:58) Creatinine-Blood: 0.9 mg/dL (00:58) Estimated GFR Creatinine: 115 ML/MIN/1.73 M2 (00:58) Glucose Level:??104 mg/dL??High (00:58) Magnesium: 2 mg/dL (00:58) Potassium: 4.1 mmol/L (00:58) Sodium: 137 mmol/L (00:58) ?? LFT Albumin: 4.5 Gm/dL (00:58) Alkaline Phosphatase: 52 units/L (00:58) ALT (SGPT): 29 units/L (00:58) AST (SGOT):??49 units/L??High (00:58) Bilirubin, Total: 0.2 mg/dL (00:58) ?? Urinalysis?? No qualifying data available. ? Patient Care team information Care Team Personnel Name: Ela Beltrán RN Position: [facility] AMB Nurse Member Role: Primary Care Nurse Name: Alaina Gillette RN Position: [facility] RN Member Role: Primary Care Nurse Name: Kristyn Tapia RN Position: [facility] SN RN Member Role: Primary Care Nurse Name: Lorna Gentile NP Position: [facility] Associate Professional Member Role: Primary Care Nurse Address: Address: [address] [place] [id number]- Name: Venus Jaramillo RN Position: [facility] RN Member Role: Primary Care Nurse Name: Flor Donnelly RN Position: [facility] RN Member Role: Primary Care Nurse Name: Ruiz Matson RN Position: [facility] RN Member Role: Primary Care Nurse Name: Belle Ames RN Position: [facility] RN Member Role: Primary Care Nurse Name: Alex Rios RN Position: [facility] RN Member Role: Primary Care Nurse Name: Daniel Hernandez III, RN Position: [facility] RN Member Role: Primary Care Nurse Name: Jordi Carter MD Position: [facility] Renal MD Member Role: Lifetime Consulting Physician Address: Address: [address] [place] [address] [address] [facility], [place] [address]- [place] Name: Loren Hamlin RN Position: [facility] RN Member Role: Primary Care Nurse Name: Malia Wise RN Position: [facility] RN Member Role: Primary Care Nurse Name: Delia ACOSTA, Lamine Covington Position: [facility] Physician - Primary Care Member Role: PCP Address: Address: [address] [facility] [place] [address]- Name: Rose Abraham RN Position: [facility] Hospital Blanket Inspector Member Role: Primary Care Nurse Name: Vinod Botello MD Position: [facility] Physician - Behavioral Health Member Role: Lifetime Consulting Physician Address: Address: [address] [place] [address]- Care Team Related Persons Name: MALIA HARRIS Name: KATHLEEN JACQUES Address: home [address] [place] [address] Name: VIRGIL PARKS Address: home [address] [place] [address] Name: MICHAELA MONTENEGRO Address: home UNKNOWN Name: MIGUEL PUENTES Address: home [address] [place] [address]
--- OUTSIDE RECORDS SUMMARY | 2023-09-06 23:40 | XMS_ITS | Continuity of Care Document ---
Author Organization [facility] Address [address] [place] [address]- Care Team Providers Care Near Eastern Archaeology Lecturer Name Role Phone Delia ACOSTA, Lamine Covington Primary Care Physician [facility] 02[facility]23 - 03/25/23 [facility] [address] [place] [address]- Allergies, Adverse Reactions, Alerts Substance Reaction Severity [...] virus vaccine, inactivated 2 12/30/10 Gi annia [id number] 12y+ bivalent booster vax 02/07/22 Given SARS-CoV-2 [...] 4 Refills, Maintenance, 02/23/23 13:37:00 EST, Tablet, [facility] [id number], discontinue amlodipine 2.5 mg daily. replace with [...] 4 Refills, Maintenance, 02/23/23 13:53:00 EST, Gel, [facility] [id number], Partial fill... Start Date: 02/23/23 Status: Ordered docusate sodium 100 mg oral capsule 1 capsule, By Mouth, Daily, # 30 each, 1 Refills, Maintenance, 06/06/22 16:49:00 EDT, [facility] [id number], 178, cm, 06/06/22 16:31:00 EDT, Height, 101.4, kg, 01/12/22 14:14:00 EST, Dry Weight Start Date: 06/06/22 Status: Ordered Flonase 50 mcg/inh nasal spray 2 sprays = 100 mcg, Nares, Both, Daily in AM, # 3 each, 3 Refills, Maintenance, 02/23/23 13:39:00 EST, [place], [facility] [id number], Partial fill upon patient request if the prescription is for a schedule II opioid drug., 2 sp... Start Date: 02/23/23 Status: Ordered folic acid 1 mg oral tablet 1, tablet, By Mouth, Daily, # 30 tablet, Refills 5, Tot. Refills 5, Maintenance, 06/06/22 16:49:00 EDT, Route to Pharmacy Electronically, [facility] [id number], 178, cm, 06/06/22 16:31:00 EDT, Height, 101.4, [...] 02/23/23 13:39:00 EST, Route to Pharmacy Electronically, [place], [place] - [id number], 178, cm, 02/23/23 13:19:00 EST, Height, 114, kg, 01/08/23... Start Date: 02/23/23 Status: Ordered metFORMIN 500 mg oral tablet, extended release 2 tablet = 1,000 mg, By Mouth, 2 times a day, 1 tab daily x 1 week then 1 tab BID x 1 week then 2 tabs BID, # 120 tablet, 4 Refills, Maintenance, 02/23/23 13:34:00 EST, ER Tablet, [facility] [id number], Partial fill upon patie... Start Date: 02/23/23 [...] Confirmed Active Knee pain, bilateral Confirmed Active BHN/CCA/Director Manufacturing Engineering-Tia Jarrett [phone]/Health senior living, active care coordination Confirmed Active Severe obesity [...] Team Personnel Name: Ela Beltrán RN Position: [facility] AMB Nurse Member Role: Primary Care Nurse Name: Alaina Gillette RN Position: [facility] RN Member Role: Primary Care Nurse Name: Kristyn Tapia RN Position: [facility] SN RN Member Role: Primary Care Nurse Name: Lorna Gentile NP Position: [facility] Associate Professional Member Role: Primary Care Nurse Address: Address: [address] [place] [address]- [place] Name: Venus Jaramillo RN Position: [facility] RN Member Role: Primary Care Nurse Name: Flor Donnelly RN Position: [facility] RN Member Role: Primary Care Nurse Name: Ruiz Matson RN Position: [facility] RN Member Role: Primary Care Nurse Name: Belle Ames RN Position: [facility] RN Member Role: Primary Care Nurse Name: Alex Rios RN Position: [facility] RN Member Role: Primary Care Nurse Name: Daniel Hernandez III, RN Position: [facility] RN Member Role: Primary Care Nurse Name: Jordi Carter MD Position: [facility] Renal MD Member Role: Lifetime Consulting Physician Address: Address: [address] [facility] [place] [address]- [place] Name: Loren Hamlin RN Position: S RN Member Role: Primary Care Nurse Name: Malia Wise RN Position: [facility] RN Member Role: Primary Care Nurse Name: Lamine Lin MD Position: [facility] Physician - Primary Care Member Role: PCP Address: Address: [address] [facility] [place] [address]- Name: Rose Abraham RN Position: [facility] Hospital Sales Development Executive Member Role: Primary Care Nurse Name: Vinod Botello MD Position: [facility] Physician - Behavioral Health Member Role: Lifetime Consulting Physician Address: Address: [address] [place] [address]- Care Team Related Persons Name: MALAI HARRIS Name: KATHLEEN JACQUES Address: home [address] [place] [address] Name: VIRGIL PARKS Address: home [address] [place] [address] Name: MICHAELA MONTENEGRO Address: home UNKNOWN Name: MIGUEL PUENTES Address: home [address] [place] [address]
--- OUTSIDE RECORDS SUMMARY | 2023-09-06 23:40 | XMS_ITS | Continuity of Care Document ---
Author Organization [facility] Address [address] [place] [address]- Care Team Providers Care Casing Crew Name Role Phone Delia ACOSTA, Lamine Covington Primary Care Physician [facility] 06[facility]27/23 - 07/27/23 [facility] [address] [place], [place] [phone] Allergies, Adverse Reactions, Alerts Substance Reaction Severity [...] virus vaccine, inactivated 2 12/30/10 Gi annia [id number] 12y+ bivalent booster vax 02/07/22 Given SARS-CoV-2 (COVID-19) mRNA BNT-162b2 vac 09/10/20 Given SARS-CoV-2 (COVID-19) mRNA BNT-162b2 vac 08/20/20 Given tetanus-diphtheria toxoids (Td) 12/30/19 Given pneumococcal 23-valent vaccine 07/19/11 Given tetanus/diphtheria/pertussis, acel(Tdap) 08/11/09 Given 1Admin Note: VIS 08/31 2Admin Note: flulaval vis given vis date 09/14/2010 Medications Alcohol Pads Alcohol Pads, See Instructions, # 1 each, Refills 11, Tot. Refills 11, Maintenance, Please dispense1 box of alcohol pads, 05/26/23 16:12:00 EDT, Supply, 178, cm, 03/29/23 14:45:00 EST, Height, 114, kg, 01/08/23 23:07:00 EST, Dry Weight Start Date: 05/26/23 Status: Ordered amLODIPine 10 mg oral tablet 10 mg, 1, tablet, By Mouth, Daily, # 90 tablet, Refills 0, Tot. Refills 0, Maintenance, 07/14/23 8:21:00 EDT, Route to Pharmacy Electronically, [facility] [place] - [id number], 178, cm, 07/14/23 8:09:00 EDT, Height, 150, kg, 06/05/23 0:... Start Date: 07/14/23 Stop Date: 10/12/23 Status: Ordered benztropine 1 mg oral tablet TAKE 1 TABLET BY MOUTH two (2) times a day Start Date: 04/21/23 Status: Ordered diclofenac 1% topical gel 1 application, Topically, 4 times a day, 2g per application on elbow, wrist or hand; 4g per application on knee ankle or foot., # 100 Gm, 4 Refills, Maintenance, 02/23/23 13:53:00 EST, Gel, [facility] [place] - [id number], Partial fill... Start Date: 02/23/23 Status: Ordered docusate sodium 100 mg oral capsule 1 capsule, By Mouth, Daily, # 30 each, 1 Refills, Maintenance, 06/06/22 16:49:00 EDT, [facility] [place] - [id number], 178, cm, 06/06/22 16:31:00 EDT, Height, 101.4, kg, 01/12/22 14:14:00 EST, Dry Weight Start Date: 06/06/22 Status: Ordered ferrous gluconate 324 mg oral tablet 1 tablet = 324 mg, By Mouth, Daily, # 100 tablet, 0 Refills, Maintenance, 05/06/23 10:33:00 EDT, Tablet, [facility] [place] - [id number], Partial fill upon patient request if the prescription is for a schedule II opioid drug., 178, cm,... Start Date: 05/06/23 Status: Ordered Flonase 50 mcg/inh nasal spray 2 sprays = 100 mcg, Nares, Both, Daily in AM, # 3 each, 3 Refills, Maintenance, 02/23/23 13:39:00 EST, [place], [facility] [place] - [id number], Partial fill upon patient request if the prescription is for a schedule II opioid drug., 2 sp... Start Date: 02/23/23 Status: Ordered folic acid 1 mg oral tablet 1, tablet, By Mouth, Daily, # 30 tablet, Refills 5, Tot. Refills 5, Maintenance, 06/06/22 16:49:00 EDT, Route to Pharmacy Electronically, [facility], [place] - [id number], 178, cm, 06/06/22 16:31:00 EDT, Height, 101.4, kg, 01/12/22 14:14... Start Date: 06/06/22 Status: Ordered Freestyle Lite Lancets See Instructions, # 200 each, Refills 11, Tot. Refills 11, Maintenance, TID AC and qHS, E11.65, 02/23/23 13:52:00 EST, Compound, 178, cm, 02/23/23 13:19:00 EST, Height, 114, kg, 01/08/23 23:07:00 EST, Dry Weight Start Date: 02/23/23 Status: Ordered FreeStyle Lite Strips FreeStyle Lite [...] DAY Start Date: 03/31/23 Status: Ordered haloperidol 5 mg oral tablet TAKE 3 TABLETS BY MOUTH AT BEDTIME AND MAY TAKE 1/2 TAB ONCE DAILY NEEDED FOR AGITATION Start Date: 04/21/23 Status: Ordered Inject Ease Lancets 28 gauge Inject Ease Lancets 28 gauge, See Instructions, # 50 Unknown, 11 Refills, Maintenance, USE TO TEST FINGER STICK BLOOD SUGAR ONCE DAILY, 11/16/22 17:07:00 EDT, 179, cm, 08/26/22 13:16:00 EDT, Height, 111.5, kg, 11/14/22 21:00:00 EDT, Dry Weight Start Date: 11/16/22 Status: Ordered lithium 600 mg oral capsule TAKE 1 CAPSULE BY MOUTH two (2) times a day Start Date: 04/21/23 Status: Ordered loratadine 10 mg oral tablet 10 mg, 1, tablet, By Mouth, Daily, # 90 tablet, Refills 3, Tot. Refills 3, Maintenance, 02/23/23 13:39:00 EST, Route to Pharmacy Electronically, [facility] [id number], 178, cm, 02/23/23 13:19:00 EST, Height, 114, kg, 01/08/23... Start Date: 02/23/23 Status: Ordered metFORMIN 500 mg oral tablet, extended release 2 tablet = 1,000 mg, By Mouth, 2 times a day, 1 tab daily x 1 week then 1 tab BID x 1 week then 2 tabs BID, # 120 tablet, 4 Refills, Maintenance, 02/23/23 13:34:00 EST, ER Tablet, [place], [place] - [id number], Partial fill upon patie... Start Date: 02/23/23 Status: Ordered multivitamin Multiple Vitamins oral tablet 1 tablet, By Mouth, Daily, # 90 tablet, 3 Refills, Maintenance, 05/06/23 10:33:00 EDT, Tablet, [facility] [id number], Partial fill upon patient request if the prescription isfor a schedule II opioid drug., 1 tablet By Mouth D... Start Date: 05/06/23 Status: Ordered pantoprazole 40 mg oral delayed release tablet 1 tablet, By Mouth, Daily, take 30 mintues before foro or dirink, first thing in the morning if unable, the jsut take at any time, # 90 tablet, 0 Refills, Maintenance, 07/14/23 8:59:00 EDT, 178, cm, 07/14/23 8:09:00 EDT, Height, 150, kg, 06/05/23 0:... Start Date: 07/14/23 Stop Date: 10/12/23 Status: Ordered prazosin 5 mg oral capsule TAKE 1 CAPSULE BY MOUTH ONCE DAILY AT BEDTIME Start Date: 03/31/23 Status: Ordered sertraline 100 mg oral tablet TAKE 1 TABLET BY MOUTH ONCE DAILY Start Date: 03/31/23 Status: Ordered traZODone 150 mg oral tablet TAKE 1 TABLET BY MOUTH ONCE DAILY AT BEDTIME Start Date: 03/31/23 Status: Ordered Problem List Condition Confirmation Course Effective Dates Status Health Status Informant Diabetes mellitus Confirmed Active Esophageal reflux (GERD) Confirmed Active Gastric polypremoved 2020, EGD next due 2025 1 Confirmed Active Gynecomastia Confirmed Active Hypercholesterolemia Confirmed Active Hypertension Confirmed Active Sleep related hypoxia Confirmed Active 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 Repeat EGD in 5 yrs. [id number] [facility] eye note 3Impression: 1. Mildly enlarged and diffusely echogenic liver [...] a Social History Social History Type Response Tobacco Use: 4 or less cigar ettes(less than 1/4 pack)/day in last 30 days. Sex Male Patient Care team information Care Team Personnel Name: Ela Beltrán RN Position: [facility] AMB Nurse Member Role: Primary Care Nurse Name: Michelle Hernandez RN Position: [facility] RN Member Role: Primary Care Nurse Name: Alaina Gillette RN Position: [facility] RN Member Role: Primary Care Nurse Name: Kristyn Tapia RN Position: [facility] SN RN Member Role: Primary Care Nurse Name: Seferino DROP WIRE BUILDERLorna Position: [facility] Associate Professional Member Role: Primary Care Nurse Name: Venus Jaramillo RN Position: [facility] RN Member Role: Primary Care Nurse Name: Flor Donnelly RN Position: [facility] RN Member Role: Primary Care Nurse Name: Ruiz Matson RN Position: [facility] RN Member Role: Primary Care Nurse Name: Belle Ames RN Position: [facility] RN Member Role: Primary Care Nurse Name: Alex Rios RN Position: [facility] RN Member Role: Primary Care Nurse Name: Daniel Hernandez III, RN Position: [facility] RN Member Role: Primary Care Nurse Name: Crow Lee RN Position: [facility] RN Member Role: Primary Care Nurse Name: Jordi Carter MD Position: [facility] Renal MD Member Role: Lifetime Consulting Physician Address: Address: [address] [facility] [address] [facility] [place] [address]- Name: Loren Hamlin RN Position: [facility] RN Member Role: Primary Care Nurse Name: Enid Wise RN Position: [facility] RN Member Role: Primary Care Nurse Name: Lamine Lin MD Position: [facility] Physician - Primary Care Member Role: PCP Address: Address: [address] [facility] [place] [address]- [place] Name: Rose Abraham RN Position: [facility] Hospital Australian Rules Footballer Member Role: Primary Care Nurse Name: Vinod Botello MD Position: [facility] Physician - Behavioral Health Member Role: Lifetime Consulting Physician Address: Address: [address] [place] [address]- Care Team Related Persons Name: DONAVON ALCALA Name: GAURANGCarlosKATHLEEN Address: home [address] [place] [address] Name: VIRGIL PARKS Address: home [address] [place] [address] Name: MICHAELA MONTENEGRO Address: home UNKNOWN Name: MIGUEL PUENTES Address: [address] [place] [address] Name: CRISTINA TABARES Address: home UNKNOWN
--- OUTSIDE RECORDS SUMMARY | 2023-09-06 23:41 | XMS_ITS | Continuity of Care Document ---
Author Organization [facility] Address [address] [place] [address]- Care Team Providers Care Chemical Preparer Name Role Phone Delia ACOSTA, Lamine Covington Primary Care Physician Encounter [facility] [place](s): 06/29/23 - 06/30/[address] [address]- Discharge Disposition: Transfer to Psych Facility Attending Physician: Lily Trejo MD Admitting Physician: Lily Trejo MD Referring Physician: Not on Staff, Referring [...] virus vaccine, inactivated 2 12/30/10 Gi annia [id number] 12y+ bivalent booster vax 02/07/22 Given SARS-CoV-2 [...] amLODIPine 10 mg oral tablet 10 mg, Tablet, By Mouth, 06/30/23 9:00:00 EDT Start Date: 06/30/23 Stop Date: 06/30/23 Status: Completed amLODIPine 10 mg oral tablet 10 mg, 1, tablet, By Mouth, Daily, # 30 tablet, Refills 1, Tot. Refills 1, Maintenance, 05/05/23 16:43:00 EDT, Route to Pharmacy Electronically, [facility] [id number], Partial fill upon patient request if the prescription is f... Start Date: 05/05/23 Status: Ordered benztropine 1 mg oral tablet TAKE 1 TABLET BY MOUTH two (2) times a day Start Date: 04/21/23 Status: Ordered BP machine BP machine, See Instructions, # 1 each, Refills 0, Tot. Refills 0, Maintenance, Dx: HTN I10 duration: lifetime, 01/31/23 14:37:00 EST, Supply Start Date: 01/31/23 Status: Ordered Cane Cane, See Instructions, # 1 each, Refills 0, Tot. Refills 0, Maintenance, Dx: Impaired mobility Z74.09 duration: lifetime, 05/25/23 8:47:00 EDT, Supply Start Date: 05/25/23 Status: Ordered diclofenac 1% topical gel 1 application, Topically, 4 times a day, 2g per application on elbow, wrist or hand; 4g per application on knee ankle or foot., # 100 Gm, 4 Refills, Maintenance, 02/23/23 13:53:00 EST, Gel, [facility] [id number], Partial fill... Start Date: 02/23/23 Status: Ordered docusate sodium 100 mg oral capsule 1 capsule, By Mouth, Daily, # 30 each, 1 Refills, Maintenance, 06/06/22 16:49:00 EDT, [facility] [id number], 178, cm, 06/06/22 16:31:00 EDT, Height, 101.4, kg, 01/12/22 14:14:00 EST, Dry Weight Start Date: 06/06/22 Status: Ordered ferrous gluconate 324 mg oral tablet 1 tablet = 324 mg, By Mouth, Daily, # 100 tablet, 0 Refills, Maintenance, 05/06/23 10:33:00 EDT, Tablet, [facility] [id number], Partial fill upon patient request if the prescription is for a schedule II opioid drug., 178, cm,... Start Date: 05/06/23 Status: Ordered Flonase 50 mcg/inh nasal spray 2 sprays = 100 mcg, Nares, Both, Daily in AM, # 3 each, 3 Refills, Maintenance, 02/23/23 13:39:00 EST, [place], [facility] [id number], Partial fill upon patient request if the prescription is for a schedule II opioid drug., 2 sp... Start Date: 02/23/23 Status: Ordered folic acid 1 mg oral tablet 1, tablet, By Mouth, Daily, # 30 tablet, Refills 5, Tot. Refills 5, Maintenance, 06/06/22 16:49:00 EDT, Route to Pharmacy Electronically, [facility], [facility] [id number], 178, cm, 06/06/22 16:31:00 EDT, Height, 101.4, [...] Status: Ordered gabapentin 400 mg oral capsule 400 mg, Capsule, By Mouth, 06/29/23 22:28:00 EDT Start Date: 06/29/23 Stop Date: 06/29/23 Status: Completed gabapentin 400 mg oral capsule 400 mg, Capsule, By Mouth, 06/30/23 9:00:00 EDT Start Date: 06/30/23 Stop Date: 06/30/23 Status: Completed gabapentin 400 mg oral capsule TAKE 1 CAPSULE BY MOUTH 3 (THREE) TIMES A DAY Start Date: 03/31/23 Status: Ordered haloperidol 5 mg oral tablet TAKE 3 TABLETS BY MOUTH AT BEDTIME AND MAY TAKE 1/2 TAB ONCE DAILY NEEDED FOR AGITATION Start Date: 04/21/23 Status: Ordered haloperidol 5 mg oral tablet TAKE 1 TABLET BY MOUTH ONCE DAILY Start Date: 04/21/23 Status: Ordered Inject Ease [...] Supply Start Date: 02/24/23 Status: Ordered lithium 600 mg oral capsule TAKE 1 CAPSULE BY MOUTH two (2) times a day Start Date: 04/21/23 Status: Ordered loratadine 10 mg oral tablet 10 mg, 1, tablet, By Mouth, Daily, # 90 tablet, Refills 3, Tot. Refills 3, Maintenance, 02/23/23 13:39:00 EST, Route to Pharmacy Electronically, [facility] [id number], 178, cm, 02/23/23 13:19:00 EST, Height, 114, kg, 01/08/23... Start Date: 02/23/23 Status: Ordered metFORMIN 500 mg oral tablet, extended release 2 tablet = 1,000 mg, By Mouth, 2 times a day, 1 tab daily x 1 week then 1 tab BID x 1 week then 2 tabs BID, # 120 tablet, 4 Refills, Maintenance, 02/23/23 13:34:00 EST, ER Tablet, [facility] [id number], Partial fill upon patie... Start Date: 02/23/23 Status: Ordered multivitamin Multiple Vitamins oral tablet 1 tablet, By Mouth, Daily, # 90 tablet, 3 Refills, Maintenance, 05/06/23 10:33:00 EDT, Tablet, [facility] [id number], Partial fill upon patient request if the [...] oral capsule 5 mg, Capsule, By Mouth, 06/29/23 22:52:00 EDT Start Date: 06/29/23 Stop Date: 06/29/23 Status: Completed prazosin 5 mg oral capsule TAKE 1 [...] Active Knee pain, bilateral Confirmed Active BHN/CCA/[facility]/Fishing Tool Supervisor-Tia Jarrett [phone]/Health prison, active care coordination Confirmed Active Severe [...] 3 Oxygen Saturation [94-100 %] 100 % (06/29/23 9:56 PM) 100 % (06/29/23 6:18 PM) Pulse Rate [55-90 bpm] 70 bpm (06/29/23 9:56 PM) 64 bpm (06/29/23 6:18 PM) Blood Pressure [90-138/55-84 mm Hg] 117/86mm Hg (06/30/23 8:04 AM) 158/67mm Hg *H* (06/29/23 10:36 PM) 148/86mm Hg *H* (06/29/23 9:56 PM) Respiratory Rate [16-30 br/min] 18 br/min (06/30/23 8:05 AM) 20 br/min (06/29/23 10:36 PM) 22 br/min (06/29/23 9:56 PM) Temperature [96.8-100.4 DegF] 97.9 DegF (06/29/23 9:56 PM) 97 DegF (06/29/23 6:18 PM) Mode of Delivery (Oxygen) Room air (06/29/23 9:56 PM) Temperature Route Oral (06/29/23 9:56 PM) Oral (06/29/23 6:18 PM) Social History Social History Type Response Smoking Status Never smoker entered on: 10/02/13 Sex Male Patient Care team information Care Team Personnel Name: Ela Beltrán RN Position: [facility] AMB Nurse Member Role: Primary Care Nurse Name: Alaina Gillette RN Position: [facility] RN Member Role: Primary Care Nurse Name: Kristyn Tapia RN Position: [facility] SN RN Member Role: Primary Care Nurse Name: Lorna Gentile NP Position: [facility] Associate Professional Member Role: Primary Care Nurse Name: Venus Jaramillo RN Position: [facility] RN Member Role: Primary Care Nurse Name: Flor Donnelly RN Position: [facility] RN Member Role: Primary Care Nurse Name: Ruiz Matson RN Position: [facility] RN Member Role: Primary Care Nurse Name: Belle Ames RN Position: [facility] RN Member Role: Primary Care Nurse Name: Blanca HOOKER, Alex Gonzalez Position: [facility] RN Member Role: Primary Care Nurse Name: Mary TITUS RN, Daniel Position: [facility] RN Member Role: Primary Care Nurse Name: Jordi Carter MD Position: [facility] Renal MD Member Role: Lifetime Consulting Physician Address: Address: [address] [facility] [place] [address]- [place] Name: Loren Hamlin RN Position: [facility] RN Member Role: Primary Care Nurse Name: Kenzie Martínez RN, [place] Position: [facility] RN Member Role: Primary Care Nurse Name: Delia ACOSTA, Lamine Covington Position: [facility] Physician - Primary Care Member Role: PCP Address: Address: [address] [facility] [place] [address]- [place] Name: Rose Abraham RN Position: [facility] Home Theater Installer Member Role: Primary Care Nurse Name: Vinod Botello MD Position: [facility] Physician - Behavioral Health Member Role: Lifetime Consulting Physician Address: Address: [address] [place] [address]- Care Team Related Persons Name: DONAVON ALCALA Name: KATHLEEN JACQUES Address: home [address] [place] [address] Name: VIRGIL PARKS Address: home [address] [place] [address] Name: MICHAELA MONTENEGRO Address: home UNKNOWN Name: MIGUEL PUENTES Address: home [address] [place] [address]
--- OUTSIDE RECORDS SUMMARY | 2023-09-06 23:41 | XMS_ITS | Continuity of Care Document ---
Author Organization [facility] Address [address] [place] [address]- Care Team Providers Care Etl Informatica Developer Name Role Phone Delia ACOSTA, Lamine Covington Primary Care Physician Encounter [facility] Date(s): 07/06/23 - 08/05/23 [facility] [address] [place], [place] [phone] Allergies, Adverse Reactions, Alerts Substance Reaction Severity [...] virus vaccine, inactivated 2 12/30/10 Gi annia [id number] 12y+ bivalent booster vax 02/07/22 Given SARS-CoV-2 [...] 07/14/23 8:21:00 EDT, Route to Pharmacy Electronically, [facility] [place] - [id number], 178, cm, 07/14/23 8:09:00 EDT, Height, 150, [...] 4 Refills, Maintenance, 02/23/23 13:53:00 EST, Gel, [facility] [place] - [id number], Partial fill... Start Date: 02/23/23 Status: Ordered docusate sodium 100 mg oral capsule 1 capsule, By Mouth, Daily, # 30 each, 1 Refills, Maintenance, 06/06/22 16:49:00 EDT, [facility] [place] - [id number], 178, cm, 06/06/22 16:31:00 EDT, Height, 101.4, kg, 01/12/22 14:14:00 EST, Dry Weight Start Date: 06/06/22 Status: Ordered ferrous gluconate 324 mg oral tablet 1 tablet = 324 mg, By Mouth, Daily, # 100 tablet, 0 Refills, Maintenance, 05/06/23 10:33:00 EDT, Tablet, [facility] [place] - [id number], Partial fill upon patient request if the prescription is for a schedule II opioid drug., 178, cm,... Start Date: 05/06/23 Status: Ordered Flonase 50 mcg/inh nasal spray 2 sprays = 100 mcg, Nares, Both, Daily in AM, # 3 each, 3 Refills, Maintenance, 02/23/23 13:39:00 EST, [place], [facility] [place] - [id number], Partial fill upon patient request if the prescription is for a schedule II opioid drug., 2 sp... Start Date: 02/23/23 Status: Ordered folic acid 1 mg oral tablet 1, tablet, By Mouth, Daily, # 30 tablet, Refills 5, Tot. Refills 5, Maintenance, 06/06/22 16:49:00 EDT, Route to Pharmacy Electronically, [facility], [place] - [id number], 178, cm, 06/06/22 16:31:00 EDT, Height, 101.4, [...] 02/23/23 13:39:00 EST, Route to Pharmacy Electronically, [facility] [id number], 178, cm, 02/23/23 13:19:00 EST, Height, 114, kg, 01/08/23... Start Date: 02/23/23 Status: Ordered metFORMIN 500 mg oral tablet, extended release 2 tablet = 1,000 mg, By Mouth, 2 times a day, 1 tab daily x 1 week then 1 tab BID x 1 week then 2 tabs BID, # 120 tablet, 4 Refills, Maintenance, 02/23/23 13:34:00 EST, ER Tablet, [place], [place] - [id number], Partial fill upon patie... Start Date: 02/23/23 Status: Ordered multivitamin Multiple Vitamins oral tablet 1 tablet, By Mouth, Daily, # 90 tablet, 3 Refills, Maintenance, 05/06/23 10:33:00 EDT, Tablet, [facility] [id number], Partial fill upon patient request if the [...] Active Knee pain, bilateral Confirmed Active BHN/CCA/[facility]/Labor Contractor-Tia Jarrett [phone]/Health nursing home, active care coordination Confirmed Active Prediabetes (vs normal: had labs showing Both ) Confirmed Active Severe obesity Confirmed Active Treatment-emergent central sleep apnea Confirmed Active 1On EGD in 03/2020. Repeat EGD in 5 yrs. [address] [facility] eye note 3Impression: 1. Mildly enlarged and [...] Team Personnel Name: Ela Beltrán RN Position: [facility] AMB Nurse Member Role: Primary Care Nurse Name: Michelle Hernandez RN Position: [facility] RN Member Role: Primary Care Nurse Name: Alaina Gillette RN Position: [facility] RN Member Role: Primary Care Nurse Name: Kristyn Tapia RN Position: [facility] SN RN Member Role: Primary Care Nurse Name: Seferino COMBAT SYSTEMS ENGINEERLorna Position: [facility] Associate Professional Member Role: Primary Care Nurse Name: Venus Jaramillo RN Position: [facility] RN Member Role: Primary Care Nurse Name: Flor Donnelly RN Position: [facility] RN Member Role: Primary Care Nurse Name: Ruiz Matson RN Position: [facility] RN Member Role: Primary Care Nurse Name: Belle Ames RN Position: [facility] RN Member Role: Primary Care Nurse Name: Alex Rios RN Position: [facility] RN Member Role: Primary Care Nurse Name: Daniel Hernandez III, RN Position: [facility] RN Member Role: Primary Care Nurse Name: Crow Lee RN Position: [facility] RN Member Role: Primary Care Nurse Name: Jordi Carter MD Position: [facility] Renal MD Member Role: Lifetime Consulting Physician Address: Address: [address] [facility] [address] [facility] [place] [address]- Name: Loren Hamlin RN Position: [facility] RN Member Role: Primary Care Nurse Name: Enid Wise RN Position: [facility] RN Member Role: Primary Care Nurse Name: Lamine Lin MD Position: [facility] Physician - Primary Care Member Role: PCP Address: Address: [address] [facility] [place] [address]- [place] Name: Rose Abraham RN Position: [facility] Hospital Motor Vehicle Escort Driver Member Role: Primary Care Nurse Name: Vinod Botello MD Position: [facility] Physician - Behavioral Health Member Role: Lifetime Consulting Physician Address: Address: [address] [place] [address]- Care Team Related Persons Name: DONAVON ALCALA Name: GAURANGCarlosKATHLEEN Address: home [address] [place] [address] Name: VIRGIL PARKS Address: home [address] [place] [address] Name: MICHAELA MONTENEGRO Address: home UNKNOWN Name: MIGUEL PUENTES Address: home [address] [place] [address] Name: CRISTINA TABARES Address: home UNKNOWN
--- OUTSIDE RECORDS SUMMARY | 2023-09-06 23:41 | XMS_ITS | Continuity of Care Document ---
Author Organization [facility] Address [address] [place] [address]- Care Team Providers Care Laborer Pie Bakery Name Role Phone Delia ACOSTA, Lamine Covington Primary Care Physician [phone] Encounter [facility] Date(s): 03/13/23 - 04/12/23 [facility] [address] [place] [address]- Allergies, Adverse Reactions, Alerts Substance Reaction Severity [...] virus vaccine, inactivated 2 12/30/10 Gi annia [id number] 12y+ bivalent booster vax 02/07/22 Given SARS-CoV-2 [...] 4 Refills, Maintenance, 03/29/23 15:12:00 EST, Tablet, [facility] [place], [place] - [id number], discontinue amlodipine 2.5 mg daily. replace with [...] Maintenance, 02/23/23 13:53:00 EST, Gel, [facility], [place] - [id number], Partial fill... Start Date: 02/23/23 Status: Ordered docusate sodium 100 mg oral capsule 1 capsule, By Mouth, Daily, # 30 each, 1 Refills, Maintenance, 06/06/22 16:49:00 EDT, [facility] [place] - [id number], 178, cm, 06/06/22 16:31:00 EDT, Height, 101.4, kg, 01/12/22 14:14:00 EST, Dry Weight Start Date: 06/06/22 Status: Ordered Flonase 50 mcg/inh nasal spray 2 sprays = 100 mcg, Nares, Both, Daily in AM, # 3 each, 3 Refills, Maintenance, 02/23/23 13:39:00 EST, [place], [facility], [place] - [id number], Partial fill upon patient request if the prescription is for a schedule II opioid drug., 2 sp... Start Date: 02/23/23 Status: Ordered folic acid 1 mg oral tablet 1, tablet, By Mouth, Daily, # 30 tablet, Refills 5, Tot. Refills 5, Maintenance, 06/06/22 16:49:00 EDT, Route to Pharmacy Electronically, [facility] [place] Ilya [id number], 178, cm, 06/06/22 16:31:00 EDT, Height, 101.4, [...] 02/23/23 13:39:00 EST, Route to Pharmacy Electronically, [place], [place] - [id number], 178, cm, 02/23/23 13:19:00 EST, Height, 114, kg, 01/08/23... Start Date: 02/23/23 Status: Ordered metFORMIN 500 mg oral tablet, extended release 2 tablet = 1,000 mg, By Mouth, 2 times a day, 1 tab daily x 1 week then 1 tab BID x 1 week then 2 tabs BID, # 120 tablet, 4 Refills, Maintenance, 02/23/23 13:34:00 EST, ER Tablet, [place], [place] - [id number], Partial fill upon patie... Start Date: 02/23/23 [...] Active Knee pain, bilateral Confirmed Active BHN/CCA/Director Immunology-Tia Kolby [phone]/Health [facility], active care coordination Confirmed Active Severe [...] Team Personnel Name: Ela Beltrán RN Position: [facility] AMB Nurse Member Role: Primary Care Nurse Name: Alaina Gillette RN Position: [facility] RN Member Role: Primary Care Nurse Name: Kristyn Tapia RN Position: [facility] SN RN Member Role: Primary Care Nurse Name: Lorna Gentile NP Position: [facility] Associate Professional Member Role: Primary Care Nurse Address: Address: [address] [facility] [place] [address]- [place] Name: Venus Jaramillo RN Position: [facility] RN Member Role: Primary Care Nurse Name: Flor Donnelly RN Position: [facility] RN Member Role: Primary Care Nurse Name: Ruiz Matson RN Position: [facility] RN Member Role: Primary Care Nurse Name: Belle Ames RN Position: [facility] RN Member Role: Primary Care Nurse Name: Alex Rios RN Position: [facility] RN Member Role: Primary Care Nurse Name: Daniel Hernandez III, RN Position: [facility] RN Member Role: Primary Care Nurse Name: Jordi Carter MD Position: [facility] Renal MD Member Role: Lifetime Consulting Physician Address: Address: [address] [facility] [address] [facility] [place] [address]- [place] Name: Loren Hamlin RN Position: [facility] RN Member Role: Primary Care Nurse Name: Malia Wise RN Position: [facility] RN Member Role: Primary Care Nurse Name: Lamine Lin MD Position: [facility] Physician - Primary Care Member Role: PCP Address: Address: [address] [facility] [place] [address]- [place] Name: Rose Abraham RN Position: [facility] Journeyman Level Acoustic Analyst Member Role: Primary Care Nurse Name: Vinod Botello MD Position: [facility] Physician - Behavioral Health Member Role: Lifetime Consulting Physician Address: Address: [address] [place] [address]- [place] Care Team Related Persons Name: MALIA HARRIS Name: KATHLEEN JACQUES Address: home [address] [place] [address] Name: VIRGIL PARKS Address: home [address] [place] [address] Name: MICHAELA MONTENEGRO Address: home UNKNOWN Name: MIGUEL PUENTES Address: home [address] [place] [address]
--- OUTSIDE RECORDS SUMMARY | 2023-09-06 23:42 | XMS_ITS | Continuity of Care Document ---
Author Organization [facility] Address [address] [place] [address]- Care Team Providers Care Eligibility Supervisor Name Role Phone Delia ACOSTA, Lamine Covington Primary Care Physician [phone] Encounter [facility] Date(s): 05/05/23 - 06/04/23 [facility] [address] [place] [address]- Allergies, Adverse Reactions, Alerts Substance Reaction Severity [...] virus vaccine, inactivated 2 12/30/10 Gi annia [id number] 12y+ bivalent booster vax 02/07/22 Given SARS-CoV-2 [...] 05/05/23 16:43:00 EDT, Route to Pharmacy Electronically, [facility] [id number], Partial fill upon patient request if the [...] 4 Refills, Maintenance, 02/23/23 13:53:00 EST, Gel, [place], [place] - [id number], Partial fill... Start Date: 02/23/23 Status: Ordered docusate sodium 100 mg oral capsule 1 capsule, By Mouth, Daily, # 30 each, 1 Refills, Maintenance, 06/06/22 16:49:00 EDT, [facility] [id number], 178, cm, 06/06/22 16:31:00 EDT, Height, 101.4, kg, 01/12/22 14:14:00 EST, Dry Weight Start Date: 06/06/22 Status: Ordered ferrous gluconate 324 mg oral tablet 1 tablet = 324 mg, By Mouth, Daily, # 100 tablet, 0 Refills, Maintenance, 05/06/23 10:33:00 EDT, Tablet, [place], [place] - [id number], Partial fill upon patient request if the prescription is for a schedule II opioid drug., 178, cm,... Start Date: 05/06/23 Status: Ordered Flonase 50 mcg/inh nasal spray 2 sprays = 100 mcg, Nares, Both, Daily in AM, # 3 each, 3 Refills, Maintenance, 02/23/23 13:39:00 EST, [place], [place], [place] - [id number], Partial fill upon patient request if the prescription is for a schedule II opioid drug., 2 sp... Start Date: 02/23/23 Status: Ordered folic acid 1 mg oral tablet 1, tablet, By Mouth, Daily, # 30 tablet, Refills 5, Tot. Refills 5, Maintenance, 06/06/22 16:49:00 EDT, Route to Pharmacy Electronically, [place], [place] - [id number], 178, cm, 06/06/22 16:31:00 EDT, Height, 101.4, [...] 02/23/23 13:39:00 EST, Route to Pharmacy Electronically, [facility], [place] - [id number], 178, cm, 02/23/23 13:19:00 EST, Height, 114, kg, 01/08/23... Start Date: 02/23/23 Status: Ordered metFORMIN 500 mg oral tablet, extended release 2 tablet = 1,000 mg, By Mouth, 2 times a day, 1 tab daily x 1 week then 1 tab BID x 1 week then 2 tabs BID, # 120 tablet, 4 Refills, Maintenance, 02/23/23 13:34:00 EST, ER Tablet, [facility], [place] - [id number], Partial fill upon patie... Start Date: 02/23/23 Status: Ordered multivitamin Multiple Vitamins oral tablet 1 tablet, By Mouth, Daily, # 90 tablet, 3 Refills, Maintenance, 05/06/23 10:33:00 EDT, Tablet, [facility], [place] - [id number], Partial fill upon patient request if the [...] Active Knee pain, bilateral Confirmed Active BHN/CCA/One Care/End Lathe Operator-Tia Jarrett [phone]/Health longterm, active care coordination Confirmed Active Severe obesity [...] Team Personnel Name: Ela Beltrán RN Position: [facility] [place] Nurse Member Role: Primary Care Nurse Name: Alaina Gillette RN Position: [facility] RN Member Role: Primary Care Nurse Name: Kristyn Tapia RN Position: [facility] RN Member Role: Primary Care Nurse Name: Lorna Gentile NP Position: [facility] Associate Professional Member Role: Primary Care Nurse Address: Address: [address] [place] [id number] Name: Venus Jaramillo RN Position: [facility] RN Member Role: Primary Care Nurse Name: Flor Donnelly RN Position: [facility] RN Member Role: Primary Care Nurse Name: Ruiz Matson RN Position: [facility] RN Member Role: Primary Care Nurse Name: Belle Ames RN Position: [facility] RN Member Role: Primary Care Nurse Name: Alex Rios RN Position: [facility] RN Member Role: Primary Care Nurse Name: Daniel Hernandez III, RN Position: [facility] RN Member Role: Primary Care Nurse Name: Jordi Carter MD Position: [facility] Renal MD Member Role: Lifetime Consulting Physician Address: Address: [address] [facility] [place] [address]- [place] Name: Loren Hamlin RN Position: [facility] RN Member Role: Primary Care Nurse Name: Malia Wise RN Position: [facility] RN Member Role: Primary Care Nurse Name: Lamine Lin MD Position: [facility] Physician - Primary Care Member Role: PCP Address: Address: [address] [facility] [place] [place] [address]- [place] Name: Rose Abraham RN Position: [facility] Hospital Filling Operator Member Role: Primary Care Nurse Name: Vinod Botello MD Position: [facility] Physician - Behavioral Health Member Role: Lifetime Consulting Physician Address: Address: [address] [place] [address]- [place] Care Team Related Persons Name: MALIA HARRIS Name: KATHLEEN JACQUES Address: [address] [place] [address] Name: VIRGIL PARKS Address: home [address] [place] [address] Name: MICHAELA MONTENEGRO Address: home UNKNOWN Name: MIGUEL PUENTES Address: home [address] [place] [address]
--- OUTSIDE RECORDS SUMMARY | 2023-09-06 23:42 | XMS_ITS | Continuity of Care Document ---
Author Organization [facility] Address [address] [place] [address]- Care Team Providers Care Instructional Technology Coordinator Name Role Phone Delia ACOSTA, Lamine Covington Primary Care Physician [facility]counter [facility] Date(s): 04/10/23 - 05/10/23 [facility] [address] [place] [address]- Allergies, Adverse Reactions, Alerts Substance Reaction Severity [...] virus vaccine, inactivated 2 12/30/10 Gi annia [id number] 12y+ bivalent booster vax 02/07/22 Given SARS-CoV-2 (COVID-19) mRNA BNT-162b2 vac 09/10/20 Given SARS-CoV-2 (COVID-19) mRNA BNT-162b2 vac 08/20/20 Given tetanus-diphtheria toxoids (Td) 12/30/19 Given pneumococcal 23-valent vaccine 07/19/11 Given tetanus/diphtheria/pertussis, acel(Tdap) 08/11/09 Given 1Admin Note: VIS 08/31 2Admin Note: flulaval vis given vis date 09/14/2010 Medications amLODIPine 10 mg oral tablet 10 mg, 1, tablet, By Mouth, Daily, # 30 tablet, Refills 1, Tot. Refills 1, Maintenance, 05/05/23 16:43:00 EDT, Route to Pharmacy Electronically, [facility], [facility] [id number], Partial fill upon patient request if the [...] 4 Refills, Maintenance, 02/23/23 13:53:00 EST, Gel, [facility], [place] - [id number], Partial fill... Start Date: 02/23/23 Status: Ordered docusate sodium 100 mg oral capsule 1 capsule, By Mouth, Daily, # 30 each, 1 Refills, Maintenance, 06/06/22 16:49:00 EDT, [facility], [facility] [id number], 178, cm, 06/06/22 16:31:00 EDT, Height, 101.4, kg, 01/12/22 14:14:00 EST, Dry Weight Start Date: 06/06/22 Status: Ordered ferrous gluconate 324 mg oral tablet 1 tablet = 324 mg, By Mouth, Daily, # 100 tablet, 0 Refills, Maintenance, 05/06/23 10:33:00 EDT, Tablet, [facility], [facility] [id number], Partial fill upon patient request if the prescription is for a schedule II opioid drug., 178, cm,... Start Date: 05/06/23 Status: Ordered Flonase 50 mcg/inh nasal spray 2 sprays = 100 mcg, Nares, Both, Daily in AM, # 3 each, 3 Refills, Maintenance, 02/23/23 13:39:00 EST, [place], [facility], [place] - [id number], Partial fill upon patient request if the prescription is for a schedule II opioid drug., 2 sp... Start Date: 02/23/23 Status: Ordered folic acid 1 mg oral tablet 1, tablet, By Mouth, Daily, # 30 tablet, Refills 5, Tot. Refills 5, Maintenance, 06/06/22 16:49:00 EDT, Route to Pharmacy Electronically, [place], [place] - [id number], 178, cm, 06/06/22 16:31:00 EDT, Height, 101.4, [...] 02/23/23 13:39:00 EST, Route to Pharmacy Electronically, [facility] [place], [place] - [id number], 178, cm, 02/23/23 13:19:00 EST, Height, 114, kg, 01/08/23... Start Date: 02/23/23 Status: Ordered metFORMIN 500 mg oral tablet, extended release 2 tablet = 1,000 mg, By Mouth, 2 times a day, 1 tab daily x 1 week then 1 tab BID x 1 week then 2 tabs BID, # 120 tablet, 4 Refills, Maintenance, 02/23/23 13:34:00 EST, ER Tablet, [place], [place] - [id number], Partial fill upon patie... Start Date: 02/23/23 Status: Ordered multivitamin Multiple Vitamins oral tablet 1 tablet, By Mouth, Daily, # 90 tablet, 3 Refills, Maintenance, 05/06/23 10:33:00 EDT, Tablet, [place], [place] - [id number], Partial fill upon patient request if the [...] Active Knee pain, bilateral Confirmed Active BHN/CCA/One Care/Quality Tester-Tia Jarrett [phone]/Health snf, active care coordination Confirmed Active Severe obesity [...] Team Personnel Name: Ela Beltrán RN Position: [facility] Nurse Member Role: Primary Care Nurse Name: Alaina Gillette RN Position: [facility] RN Member Role: Primary Care Nurse Name: Kristyn Tapia RN Position: [facility] SN RN Member Role: Primary Care Nurse Name: Lorna Gentile NP Position: [facility] Associate Professional Member Role: Primary Care Nurse Address: Address: [address] [place] [address]- Name: Venus Jaramillo RN Position: [facility] RN Member Role: Primary Care Nurse Name: Flor Donnelly RN Position: [facility] RN Member Role: Primary Care Nurse Name: Ruiz Matson RN Position: [facility] RN Member Role: Primary Care Nurse Name: Belle Ames RN Position: [facility] RN Member Role: Primary Care Nurse Name: Alex Rios RN Position: [facility] RN Member Role: Primary Care Nurse Name: Daniel Hernandez III, RN Position: [facility] RN Member Role: Primary Care Nurse Name: Jordi Carter MD Position: [facility] Renal MD Member Role: Lifetime Consulting Physician Address: Address: [address] [place] [address] [address] [facility] [place] [address]- [place] Name: Loren Hamlin RN Position: [facility] RN Member Role: Primary Care Nurse Name: Malia Wise RN Position: [facility] RN Member Role: Primary Care Nurse Name: Lamine Lin MD Position: [facility] Physician - Primary Care Member Role: PCP Address: Address: [address] [facility] [place] [address]- Name: Rose Abraham RN Position: [facility] Hospital Electrical Development Engineer Member Role: Primary Care Nurse Name: Vinod Botello MD Position: [facility] Physician - Behavioral Health Member Role: Lifetime Consulting Physician Address: Address: [address] [place] [address]- Care Team Related Persons Name: MALIA HARRIS Name: KATHLEEN JACQUES Address: home [address] [place] [address] Name: VIRGIL PARKS Address: home [address] [place] [address] Name: MICHAELA MONTENEGRO Address: home UNKNOWN Name: MIGUEL PUENTES Address: [address] [place] [address]
--- OUTSIDE RECORDS SUMMARY | 2023-09-06 23:42 | XMS_ITS | Continuity of Care Document ---
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 Tapia RN Position: [facility] SN RN Member Role: Primary Care Nurse Name: Lorna Gentile NP Position: [facility] Associate Professional Member Role: Primary Care Nurse Name: Venus Jaramillo RN [facility] Care Nurse Name: Crow Lee RN Position: [facility] RN Member Role: Primary Care Nurse Name: Jordi Carter MD Position: [facility] Renal MD Member Role: Lifetime Consulting Physician Address: Address: [address] [facility] [address] [facility] [place] [address]- Name: Loren Hamlin RN Position: [facility] RN Member Role: Primary Care Nurse Name: Enid Wise RN Position: [facility] RN Member Role: Primary Care Nurse Name: Lamine Lin MD Position: [facility] Physician - Primary Care Member Role: PCP Address: Address: [address] [place] [address] [place] [address]- [place] Name: Jarad HOOKER, Rose Position: [facility] Hospital Senior Talent Management Consultant Member Role: Primary Care Nurse Name: Vinod Botello MD Position: [facility] Physician - Behavioral Health Member Role: Lifetime Consulting Physician Address: Address: [address] [place] [address]- Care Team Related Persons Name: DONAVON ALCALA Name: KATHLEEN JACQUES Address: home [address] [place] [address] Name: VIRGIL PARKS Address: home [address] [place] [address] Name: MICHAELA MONTENEGRO Address: home UNKNOWN Name: MIGUEL PUENTES Address: home [address] [place] [address] Name: CRISTINA TABARES Address: home UNKNOWN
--- OUTSIDE RECORDS SUMMARY | 2023-09-06 23:42 | XMS_ITS | Continuity of Care Document ---
Author Organization [facility] Address [address] [place] [address]- Care Team Providers Care Kinder Teacher Name Role Phone Delia ACOSTA, Lamine Covington Primary Care Physician [phone] [facility]counter [facility] Date(s): 04/10/23 - 05/10/23 [facility] [address] [place] [address]- Allergies, Adverse Reactions, Alerts Substance Reaction Severity [...] virus vaccine, inactivated 2 12/30/10 Gi annia [id number] 12y+ bivalent booster vax 02/07/22 Given SARS-CoV-2 [...] 05/05/23 16:43:00 EDT, Route to Pharmacy Electronically, [facility] [id number], Partial fill upon patient request if the [...] 4 Refills, Maintenance, 02/23/23 13:53:00 EST, Gel, [facility], [facility] [id number], Partial fill... Start Date: 02/23/23 Status: Ordered docusate sodium 100 mg oral capsule 1 capsule, By Mouth, Daily, # 30 each, 1 Refills, Maintenance, 06/06/22 16:49:00 EDT, [facility], [facility] [id number], 178, cm, 06/06/22 16:31:00 EDT, Height, 101.4, kg, 01/12/22 14:14:00 EST, Dry Weight Start Date: 06/06/22 Status: Ordered ferrous gluconate 324 mg oral tablet 1 tablet = 324 mg, By Mouth, Daily, # 100 tablet, 0 Refills, Maintenance, 05/06/23 10:33:00 EDT, Tablet, [facility], [facility] [id number], Partial fill upon patient request if the prescription is for a schedule II opioid drug., 178, cm,... Start Date: 05/06/23 Status: Ordered Flonase 50 mcg/inh nasal spray 2 sprays = 100 mcg, Nares, Both, Daily in AM, # 3 each, 3 Refills, Maintenance, 02/23/23 13:39:00 EST, [place], [facility], [place] - [id number], Partial fill upon patient request if the prescription is for a schedule II opioid drug., 2 sp... Start Date: 02/23/23 Status: Ordered folic acid 1 mg oral tablet 1, tablet, By Mouth, Daily, # 30 tablet, Refills 5, Tot. Refills 5, Maintenance, 06/06/22 16:49:00 EDT, Route to Pharmacy Electronically, [place], [place] - [id number], 178, cm, 06/06/22 16:31:00 EDT, Height, 101.4, [...] 02/23/23 13:39:00 EST, Route to Pharmacy Electronically, [facility] [place], [place] - [id number], 178, cm, 02/23/23 13:19:00 EST, Height, 114, kg, 01/08/23... Start Date: 02/23/23 Status: Ordered metFORMIN 500 mg oral tablet, extended release 2 tablet = 1,000 mg, By Mouth, 2 times a day, 1 tab daily x 1 week then 1 tab BID x 1 week then 2 tabs BID, # 120 tablet, 4 Refills, Maintenance, 02/23/23 13:34:00 EST, ER Tablet, [place], [place] - [id number], Partial fill upon patie... Start Date: 02/23/23 Status: Ordered multivitamin Multiple Vitamins oral tablet 1 tablet, By Mouth, Daily, # 90 tablet, 3 Refills, Maintenance, 05/06/23 10:33:00 EDT, Tablet, [place], [place] - [id number], Partial fill upon patient request if the [...] Active Knee pain, bilateral Confirmed Active BHN/CCA/One Care/Crozer-Tia Jarrett [phone]/Health assisted, active care coordination Confirmed Active Severe obesity [...] Team Personnel Name: Ela Beltrán RN Position: [facility] AMB Nurse Member Role: Primary Care Nurse Name: Alaina Gillette RN Position: [facility] RN Member Role: Primary Care Nurse Name: Kristyn Tapia RN Position: [facility] SN RN Member Role: Primary Care Nurse Name: Lorna Gentile NP Position: [facility] Associate Professional Member Role: Primary Care Nurse Address: Address: [address] [place] [address]- Name: Venus Jaramillo RN Position: [facility] RN Member Role: Primary Care Nurse Name: Flor Donnelly RN Position: [facility] RN Member Role: Primary Care Nurse Name: Ruiz Matson RN Position: [facility] RN Member Role: Primary Care Nurse Name: Belle Ames RN Position: [facility] RN Member Role: Primary Care Nurse Name: Alex Rios RN Position: [facility] RN Member Role: Primary Care Nurse Name: Daniel Hernandez III, RN Position: [facility] RN Member Role: Primary Care Nurse Name: Jordi Carter MD Position: [facility] Renal MD Member Role: Lifetime Consulting Physician Address: Address: [address] [place] [address] [address] [facility] [place] [place] [address]- [place] Name: Loren Hamlin RN Position: [facility] RN Member Role: Primary Care Nurse Name: Malia Wise RN Position: [facility] RN Member Role: Primary Care Nurse Name: Delia ACOSTA, Lamine Covington Position: [facility] Physician - Primary Care Member Role: PCP Address: Address: [address] [facility] [place] [address]- Name: Rose Abraham RN Position: [facility] Hospital Director Of Cardiology Member Role: Primary Care Nurse Name: Vinod Botello MD Position: [facility] Physician - Behavioral Health Member Role: Lifetime Consulting Physician Address: Address: [address] [place] [address]- Care Team Related Persons Name: MALIA HARRIS Name: KATHLEEN JACQUES Address: home [address] [place] [address] Name: VIRGIL PARKS Address: home [address] [place] [address] Name: MICHAELA MONTENEGRO Address: home UNKNOWN Name: MIGUEL PUENTES Address: home [address] [place] [address]
--- OUTSIDE RECORDS SUMMARY | 2023-09-06 23:42 | XMS_ITS | Continuity of Care Document ---
Author Organization [facility] Address [address] [place] [address]- Care Team Providers Care Collections Assistant Name Role Phone Delia ACOSTA, Lamine Covington Primary Care Physician [facility] Date[facility]s): 05/05/23 - 06/04/23 [facility] [address] [place] [address]- Allergies, Adverse Reactions, Alerts Substance Reaction Severity [...] virus vaccine, inactivated 2 12/30/10 Gi annia [id number] 12y+ bivalent booster vax 02/07/22 Given SARS-CoV-2 [...] 05/05/23 16:43:00 EDT, Route to Pharmacy Electronically, [facility] [id number], Partial fill upon patient request if the [...] 4 Refills, Maintenance, 02/23/23 13:53:00 EST, Gel, [facility] [id number], Partial fill... Start Date: 02/23/23 Status: Ordered docusate sodium 100 mg oral capsule 1 capsule, By Mouth, Daily, # 30 each, 1 Refills, Maintenance, 06/06/22 16:49:00 EDT, [facility] [id number], 178, cm, 06/06/22 16:31:00 EDT, Height, 101.4, kg, 01/12/22 14:14:00 EST, Dry Weight Start Date: 06/06/22 Status: Ordered ferrous gluconate 324 mg oral tablet 1 tablet = 324 mg, By Mouth, Daily, # 100 tablet, 0 Refills, Maintenance, 05/06/23 10:33:00 EDT, Tablet, [place], [place] - [id number], Partial fill upon patient request if the prescription is for a schedule II opioid drug., 178, cm,... Start Date: 05/06/23 Status: Ordered Flonase 50 mcg/inh nasal spray 2 sprays = 100 mcg, Nares, Both, Daily in AM, # 3 each, 3 Refills, Maintenance, 02/23/23 13:39:00 EST, [place], [place], [place] - [id number], Partial fill upon patient request if the prescription is for a schedule II opioid drug., 2 sp... Start Date: 02/23/23 Status: Ordered folic acid 1 mg oral tablet 1, tablet, By Mouth, Daily, # 30 tablet, Refills 5, Tot. Refills 5, Maintenance, 06/06/22 16:49:00 EDT, Route to Pharmacy Electronically, [place], [place] - [id number], 178, cm, 06/06/22 16:31:00 EDT, Height, 101.4, [...] 02/23/23 13:39:00 EST, Route to Pharmacy Electronically, [facility], [place] - [id number], 178, cm, 02/23/23 13:19:00 EST, Height, 114, kg, 01/08/23... Start Date: 02/23/23 Status: Ordered metFORMIN 500 mg oral tablet, extended release 2 tablet = 1,000 mg, By Mouth, 2 times a day, 1 tab daily x 1 week then 1 tab BID x 1 week then 2 tabs BID, # 120 tablet, 4 Refills, Maintenance, 02/23/23 13:34:00 EST, ER Tablet, [facility], [place] - [id number], Partial fill upon patie... Start Date: 02/23/23 Status: Ordered multivitamin Multiple Vitamins oral tablet 1 tablet, By Mouth, Daily, # 90 tablet, 3 Refills, Maintenance, 05/06/23 10:33:00 EDT, Tablet, [facility], [place] - [id number], Partial fill upon patient request if the [...] Active Knee pain, bilateral Confirmed Active BHN/CCA/One Care/Fermenter Wine-Tia Jarrett [phone]/Health group home, active care coordination Confirmed Active Severe obesity [...] Role: Primary Care Nurse Address: Address: [address] [place] [id number] Name: Venus Jaramillo RN [facility] Physician Address: Address: [address] [facility] [address] [facility] [place] [address]- [place] Name: Loren Hamlin RN Position: [facility] RN Member Role: Primary Care Nurse Name: Malia Wise RN Position: [facility] RN Member Role: Primary Care Nurse Name: Lamine Lin MD Position: [facility] Physician - Primary Care Member Role: PCP Address: Address: [address] [place] [address]- [place] Name: Rose Abraham RN Position: [facility] Hospital Library Media Assistant Member Role: Primary Care Nurse Name: Vinod Botello MD Position: [facility] Physician - Behavioral Health Member Role: Lifetime Consulting Physician Address: Address: [address] [place] [address]- [place] Care Team Related Persons Name: MALIA HARRIS Name: KATHLEEN JACQUES Address: home [address] [place] [address] Name: VIRGIL PARKS Address: home [address] [place] [address] Name: MICHAELA MONTENEGRO Address: home UNKNOWN Name: MIGUEL PUENTES Address: home [address] [place] [address]
--- OUTSIDE RECORDS SUMMARY | 2023-09-06 23:43 | XMS_ITS | Continuity of Care Document ---
Author Organization [facility] Address [address] [place] [address]- Care Team Providers Care Call Center Rn Name Role Phone Delia ACOSTA, Lamine Covington Primary Care Physician Encounter [facility] [place] [place] Date(s): 04/20/23 - 04/21/[address] [address]- Encounter Diagnosis Agitation(Final) - 04/20/23 Schizoaffective disorder(Final) - 04/20/23 Discharge Disposition: A-D/C Home Attending Physician: Fredi Meng MD Admitting Physician: [...] virus vaccine, inactivated 2 12/30/10 Gi annia [id number] 12y+ bivalent booster vax 02/07/22 Given SARS-CoV-2 (COVID-19) mRNA BNT-162b2 vac 09/10/20 Given SARS-CoV-2 (COVID-19) mRNA BNT-162b2 vac 08/20/20 Given tetanus-diphtheria toxoids (Td) 12/30/19 Given pneumococcal 23-valent vaccine 07/19/11 Given tetanus/diphtheria/pertussis, acel(Tdap) 08/11/09 Given 1Admin Note: VIS 7/12 2Admin Note: flulaval vis given vis date 09/14/2010 Medications amlodipine-olmesartan 5 mg-20 mg oral tablet 1 tablet, By Mouth, Daily, # 30 tablet, 4 Refills, Maintenance, 03/29/23 15:12:00 EST, Tablet, [facility] [id number], discontinue amlodipine 2.5 mg daily. replace with this combo tab; cancel losartan order as well, 1 tablet By... Start Date: 03/29/23 Status: Ordered benztropine 1 mg oral tablet [...] Maintenance, 02/23/23 13:53:00 EST, Gel, [facility] [id number], Partial fill... Start Date: 02/23/23 Status: Ordered docusate sodium 100 mg oral capsule 1 capsule, By Mouth, Daily, # 30 each, 1 Refills, Maintenance, 06/06/22 16:49:00 EDT, [facility] [id number], 178, cm, 06/06/22 16:31:00 EDT, Height, 101.4, kg, 01/12/22 14:14:00 EST, Dry Weight Start Date: 06/06/22 Status: Ordered Flonase 50 mcg/inh nasal spray 2 sprays = 100 mcg, Nares, Both, Daily in AM, # 3 each, 3 Refills, Maintenance, 02/23/23 13:39:00 EST, [place], [facility] [id number], Partial fill upon patient request if the prescription is for a schedule II opioid drug., 2 sp... Start Date: 02/23/23 Status: Ordered folic acid 1 mg oral tablet 1, tablet, By Mouth, Daily, # 30 tablet, Refills 5, Tot. Refills 5, Maintenance, 06/06/22 16:49:00 EDT, Route to Pharmacy Electronically, [facility] [place], [place] - [id number], 178, cm, 06/06/22 16:31:00 EDT, Height, 101.4, [...] 02/23/23 13:39:00 EST, Route to Pharmacy Electronically, [place], [place] - [id number], 178, cm, 02/23/23 13:19:00 EST, Height, 114, kg, 01/08/23... Start Date: 02/23/23 Status: Ordered metFORMIN 500 mg oral tablet, extended release 2 tablet = 1,000 mg, By Mouth, 2 times a day, 1 tab daily x 1 week then 1 tab BID x 1 week then 2 tabs BID, # 120 tablet, 4 Refills, Maintenance, 02/23/23 13:34:00 EST, ER Tablet, [place], [place] - [id number], Partial fill upon patie... Start Date: 02/23/23 [...] Active Knee pain, bilateral Confirmed Active BHN/CCA/One Care/Ammunition Supervisor-Tia Jarrett [phone]/Health halfway, active care coordination Confirmed Active Severe [...] Team Personnel Name: Ela Beltrán RN Position: [facility] AMB Nurse Member Role: Primary Care Nurse Name: Alaina Gillette RN Position: [facility] RN Member Role: Primary Care Nurse Name: Kristyn Tapia RN Position: [facility] SN RN Member Role: Primary Care Nurse Name: Seferino IMAGING SPECIALISTLorna Position: [facility] Associate Professional Member Role: Primary Care Nurse Address: Address: [address] [place] [address]- Name: Venus Jaramillo RN Position: [facility] RN Member Role: Primary Care Nurse Name: Flor Donnelly RN Position: [facility] RN Member Role: Primary Care Nurse Name: Ruiz Matson RN Position: [facility] RN Member Role: Primary Care Nurse Name: Belle Ames RN Position: [facility] RN Member Role: Primary Care Nurse Name: Alex Rios RN Position: [facility] RN Member Role: Primary Care Nurse Name: Daniel Hernandez III, RN Position: [facility] RN Member Role: Primary Care Nurse Name: Jordi Carter MD Position: [facility] Renal MD Member Role: Lifetime Consulting Physician Address: Address: [address] [place] [address] [address] [facility], [place] [address]- [place] Name: Loren Hamlin RN Position: [facility] RN Member Role: Primary Care Nurse Name: Malia Wise RN Position: [facility] RN Member Role: Primary Care Nurse Name: Lamine Lin MD Position: [facility] Physician - Primary Care Member Role: PCP Address: Address: [address] [place] [address]- [place] Name: Rose Abraham RN Position: [facility] Hospital Cloth Bleaching Supervisor Member Role: Primary Care Nurse Name: Vinod Botello MD Position: [facility] Physician - Behavioral Health Member Role: Lifetime Consulting Physician Address: Address: [address] [place] [address]- [place] Care Team Related Persons Name: GELACIOMALIA MUNOZ Name: KATHLEEN JACQUES Address: home [address] [place] [address] Name: VIRGIL PARKS Address: home [address] [place] [address] Name: MICHAELA MONTENEGRO Address: home UNKNOWN Name: MIGUEL PUENTES Address: [address] [place] [address]
--- OUTSIDE RECORDS SUMMARY | 2023-09-06 23:43 | XMS_ITS | Continuity of Care Document ---
Author Organization [facility] Address [address] [place] [address]- Care Team Providers Care Workforce Specialist Name Role Phone Delia ACOSTA, Lamine Covington Primary Care Physician [phone] [facility]counter [facility]): 07/24/23 - 09/03/23 [facility] [address] [place], [place] [phone] Attending Physician: Not on Staff, Attending MD [...] virus vaccine, inactivated 2 12/30/10 Gi annia [id number] 12y+ bivalent booster vax 02/07/22 Given SARS-CoV-2 [...] 07/14/23 8:21:00 EDT, Route to Pharmacy Electronically, [facility] [place] - [id number], 178, cm, 07/14/23 8:09:00 EDT, Height, 150, [...] 4 Refills, Maintenance, 02/23/23 13:53:00 EST, [place], [facility] [place] - [id number], Partial fill... Start Date: 02/23/23 Status: Ordered docusate sodium 100 mg oral capsule 1 capsule, By Mouth, Daily, # 30 each, 1 Refills, Maintenance, 06/06/22 16:49:00 EDT, [facility] [place] - [id number], 178, cm, 06/06/22 16:31:00 EDT, Height, 101.4, kg, 01/12/22 14:14:00 EST, Dry Weight Start Date: 06/06/22 Status: Ordered ferrous gluconate 324 mg oral tablet 1 tablet = 324 mg, By Mouth, Daily, # 100 tablet, 0 Refills, Maintenance, 05/06/23 10:33:00 EDT, Tablet, [facility] [place] - [id number], Partial fill upon patient request if the prescription is for a schedule II opioid drug., 178, cm,... Start Date: 05/06/23 Status: Ordered Flonase 50 mcg/inh nasal spray 2 sprays = 100 mcg, Nares, Both, Daily in AM, # 3 each, 3 Refills, Maintenance, 02/23/23 13:39:00 EST, [place], [place], [place] - [id number], Partial fill upon patient request if the prescription is for a schedule II opioid drug., 2 sp... Start Date: 02/23/23 Status: Ordered folic acid 1 mg oral tablet 1, tablet, By Mouth, Daily, # 30 tablet, Refills 5, Tot. Refills 5, Maintenance, 06/06/22 16:49:00 EDT, Route to Pharmacy Electronically, [place], [place] - [id number], 178, cm, 06/06/22 16:31:00 EDT, Height, 101.4, [...] 02/23/23 13:39:00 EST, Route to Pharmacy Electronically, [facility] [id number], 178, cm, 02/23/23 13:19:00 EST, Height, 114, kg, 01/08/23... Start Date: 02/23/23 Status: Ordered metFORMIN 500 mg oral tablet, extended release 2 tablet = 1,000 mg, By Mouth, 2 times a day, 1 tab daily x 1 week then 1 tab BID x 1 week then 2 tabs BID, # 120 tablet, 4 Refills, Maintenance, 02/23/23 13:34:00 EST, ER Tablet, [facility] [id number], Partial fill upon patie... Start Date: 02/23/23 Status: Ordered multivitamin Multiple Vitamins oral tablet 1 tablet, By Mouth, Daily, # 90 tablet, 3 Refills, Maintenance, 05/06/23 10:33:00 EDT, Tablet, [facility] [id number], Partial fill upon patient request if the [...] Active [place]at[place]us 2 Confirmed Active Wenckebach Confirmed 2012 Active Morbid obesity with BMI of 45.0-49.9, adult Confirmed Active NAFLD (nonalcoholic fatty liver disease) 3 Confirmed Active Obstructive sleep apnea, Complex sleep apnea Confirmed Active Knee pain, bilateral Confirmed Active BHN/CCA/One Care/Hand Quilter-Tia Jarrett [phone]/Health longterm, active care coordination Confirmed Active Prediabetes (vs normal: had labs showing Both ) Confirmed Active Severe obesity Confirmed Active Treatment-emergent central sleep apnea Confirmed Active 1On EGD in 03/2020. Repeat EGD in 5 yrs. [address] [facility] eye note 3Impression: 1. Mildly enlarged [...] Team Personnel Name: Ela Beltrán RN Position: [facility] AMB Nurse Member Role: Primary Care Nurse Name: Michelle Hernandez RN Position: [facility] RN Member Role: Primary Care Nurse Name: Alaina Gillette RN Position: [facility] RN Member Role: Primary Care Nurse Name: Kristyn Tapia RN Position: [facility] SN RN Member Role: Primary Care Nurse Name: Lorna Gentile NP Position: [facility] Associate Professional Member Role: Primary Care Nurse Name: Venus Jaramillo RN Position: [facility] RN Member Role: Primary Care Nurse Name: Flor Donnelly RN Position: [facility] RN Member Role: Primary Care Nurse Name: Ruiz Matson RN Position: [facility] RN Member Role: Primary Care Nurse Name: Belle Ames RN Position: [facility] RN Member Role: Primary Care Nurse Name: Alex Rios RN Position: [facility] RN Member Role: Primary Care Nurse Name: Daniel Hernandez III, RN Position: [facility] RN Member Role: Primary Care Nurse Name: Crow Lee RN Position: [facility] RN Member Role: Primary Care Nurse Name: Jordi Carter MD Position: [facility] Renal MD Member Role: Lifetime Consulting Physician Address: Address: [address] [facility] [place] [address]- [place] Name: Loren Hamlin RN Position: [facility] RN Member Role: Primary Care Nurse Name: Enid Wise RN Position: [facility] RN Member Role: Primary Care Nurse Name: Lamine Lin MD Position: [facility] Physician - Primary Care Member Role: PCP Address: Address: [address] [facility] [place] [address]- [place] Name: Rose Abraham RN Position: [facility] Hospital Three Dimensional Map Modeler Member Role: Primary Care Nurse Name: Vinod Botello MD Position: [facility] Physician - Behavioral Health Member Role: Lifetime Consulting Physician Address: Address: [address] [place] [address]- [place] Care Team Related Persons Name: DONAVON ALCALA Name: KATHLEEN JACQUES Address: home [address] [place] [address] Name: VIRGIL PARKS Address: home [address] [place] [address] Name: MICHAELA MONTENEGRO Address: home UNKNOWN Name: MIGUEL PUENTES Address: home [address] [place] [address] Name: CRISTINA TABARES Address: [place] [address] Name: VIRGIL TABARES
--- OUTSIDE RECORDS SUMMARY | 2023-09-06 23:43 | XMS_ITS | Continuity of Care Document ---
Author Organization [facility] ter Address [address] [place] [address]- Care Team Providers Care Artistic Director Name Role Phone Delia ACOSTA, Lamine Covington Primary Care Physician [facility] 06/[facility]/23 - 06/02/[address] [address]- Encounter Diagnosis Medication management(Final) - 06/02/23 Discharge Disposition: A-D/C Home Attending Physician: Jay ACOSTA, Bruna Joseph Admitting Physician: Bruna Thompson MD Referring Physician: Not on Staff, Referring [...] virus vaccine, inactivated 2 12/30/10 Gi annia [id number] 12y+ bivalent booster vax 02/07/22 Given SARS-CoV-2 [...] 05/05/23 16:43:00 EDT, Route to Pharmacy Electronically, [place], [place] - [id number], Partial fill upon patient request if the [...] 4 Refills, Maintenance, 02/23/23 13:53:00 EST, Gel, [place], [place] - [id number], Partial fill... Start Date: 02/23/23 Status: Ordered docusate sodium 100 mg oral capsule 1 capsule, By Mouth, Daily, # 30 each, 1 Refills, Maintenance, 06/06/22 16:49:00 EDT, [facility] [id number], 178, cm, 06/06/22 16:31:00 EDT, Height, 101.4, kg, 01/12/22 14:14:00 EST, Dry Weight Start Date: 06/06/22 Status: Ordered ferrous gluconate 324 mg oral tablet 1 tablet = 324 mg, By Mouth, Daily, # 100 tablet, 0 Refills, Maintenance, 05/06/23 10:33:00 EDT, Tablet, [facility], [place] - [id number], Partial fill upon patient request if the prescription is for a schedule II opioid drug., 178, cm,... Start Date: 05/06/23 Status: Ordered Flonase 50 mcg/inh nasal spray 2 sprays = 100 mcg, Nares, Both, Daily in AM, # 3 each, 3 Refills, Maintenance, 02/23/23 13:39:00 EST, [place], [facility], [place] - [id number], Partial fill upon patient request if the prescription is for a schedule II opioid drug., 2 sp... Start Date: 02/23/23 Status: Ordered folic acid 1 mg oral tablet 1, tablet, By Mouth, Daily, # 30 tablet, Refills 5, Tot. Refills 5, Maintenance, 06/06/22 16:49:00 EDT, Route to Pharmacy Electronically, [facility], [place] - [id number], 178, cm, 06/06/22 16:31:00 EDT, Height, 101.4, [...] 02/23/23 13:39:00 EST, Route to Pharmacy Electronically, [facility], [facility] [id number], 178, cm, 02/23/23 13:19:00 EST, Height, 114, kg, 01/08/23... Start Date: 02/23/23 Status: Ordered metFORMIN 500 mg oral tablet, extended release 2 tablet = 1,000 mg, By Mouth, 2 times a day, 1 tab daily x 1 week then 1 tab BID x 1 week then 2 tabs BID, # 120 tablet, 4 Refills, Maintenance, 02/23/23 13:34:00 EST, ER Tablet, [facility], [place] - [id number], Partial fill upon patie... Start Date: 02/23/23 Status: Ordered multivitamin Multiple Vitamins oral tablet 1 tablet, By Mouth, Daily, # 90 tablet, 3 Refills, Maintenance, 05/06/23 10:33:00 EDT, Tablet, [facility], [place] - [id number], Partial fill upon patient request if the [...] Active Knee pain, bilateral Confirmed Active BHN/CCA/One Care/Carbon Sequestration Plant Operator-Tia Jarrett [phone]/Health chcf, active care coordination Confirmed Active Severe obesity [...] 1 Oxygen Saturation [94-100 %] 98 % (06/02/23 1:25 AM) Pulse Rate [55-90 bpm] 89 bpm (06/02/23 1:25 AM) Blood Pressure [90-138/55-84 mm Hg] 145/ 96mm Hg *H* (06/02/23 1:25 AM) Respiratory Rate [16-30 br/min] 16 br/mi n (06/02/23 1:25 AM) Temperature [96.8-100.4 DegF] 98.6 DegF (06/02/23 1:25 AM) Mode of Delivery (Oxygen) Room air (06/02/23 1:25 AM) Blood pressure sites Arm, left (06/02/23 1:25 AM) Temperature Route Oral (06/02/23 1:25 AM) Social History Social History Type Response Smoking Status Never smoker entered on: 10/02/13 Sex Male Patient Care team information Care Team Personnel Name: Ela Beltrán RN Position: [facility] AMB Nurse Member Role: Primary Care Nurse Name: Alaina Gillette RN Position: [facility] RN Member Role: Primary Care Nurse Name: Kristyn Tapia RN Position: [facility] SN RN Member Role: Primary Care Nurse Name: Lorna Gentile NP Position: [facility] Associate Professional Member Role: Primary Care Nurse Address: Address: [address] [place] [address]- [place] Name: Venus Jaramillo RN Position: [facility] RN Member Role: Primary Care Nurse Name: Flor Donnelly RN Position: [facility] RN Member Role: Primary Care Nurse Name: Ruiz Matson RN Position: [facility] RN Member Role: Primary Care Nurse Name: Belle Ames RN Position: [facility] RN Member Role: Primary Care Nurse Name: Alex Rios RN Position: [facility] RN Member Role: Primary Care Nurse Name: Daniel Hernandez III, RN Position: [facility] RN Member Role: Primary Care Nurse Name: Jordi Carter MD Position: [facility] Renal MD Member Role: Lifetime Consulting Physician Address: Address: [address] [facility] [place] [address]- [place] Name: Loren Hamlin RN Position: [facility] RN Member Role: Primary Care Nurse Name: Malia Wise RN Position: [facility] RN Member Role: Primary Care Nurse Name: Lamine Lin MD Position: [facility] Physician - Primary Care Member Role: PCP Address: Address: [address] [facility] [place] [address]- [place] Name: Rose Abraham RN Position[facility] Tender Member Role: Primary Care Nurse Name: Vinod Botello MD Position: [facility] Physician - Behavioral Health Member Role: Lifetime Consulting Physician Address: Address: [address] [place] [address]- [place] Care Team Related Persons Name: CHELYLESTERMALIA MUNOZ Name: KATHLEEN JACQUES Address: home [address] [place] [address] Name: VIRGIL PARKS Address: home [address] [place] [address] Name: MICHAELA MONTENEGRO Address: home UNKNOWN Name: MIGUEL PUENTES Address: home [address] [place] [address]
--- OUTSIDE RECORDS SUMMARY | 2023-09-06 23:43 | XMS_ITS | Continuity of Care Document ---
Author Organization [facility] Address [address] [place] [address]- Care Team Providers Care Radiation / Chemistry Technician Name Role Phone Delia ACOSTA, Lamine Covington Primary Care Physician [phone] [facility] 05[facility]24[facility]23 - 06/23/23 [facility] [address] [place], [place] [phone] Allergies, Adverse Reactions, Alerts Substance Reaction Severity [...] virus vaccine, inactivated 2 12/30/10 Gi annia [id number] 12y+ bivalent booster vax 02/07/22 Given SARS-CoV-2 [...] 05/05/23 16:43:00 EDT, Route to Pharmacy Electronically, [facility] [id number], Partial fill upon patient request if the [...] 4 Refills, Maintenance, 02/23/23 13:53:00 EST, Gel, [place], [place] - [id number], Partial fill... Start Date: 02/23/23 Status: Ordered docusate sodium 100 mg oral capsule 1 capsule, By Mouth, Daily, # 30 each, 1 Refills, Maintenance, 06/06/22 16:49:00 EDT, [facility] [id number], 178, cm, 06/06/22 16:31:00 EDT, Height, 101.4, kg, 01/12/22 14:14:00 EST, Dry Weight Start Date: 06/06/22 Status: Ordered ferrous gluconate 324 mg oral tablet 1 tablet = 324 mg, By Mouth, Daily, # 100 tablet, 0 Refills, Maintenance, 05/06/23 10:33:00 EDT, Tablet, [place], [place] - [id number], Partial fill upon patient request if the prescription is for a schedule II opioid drug., 178, cm,... Start Date: 05/06/23 Status: Ordered Flonase 50 mcg/inh nasal spray 2 sprays = 100 mcg, Nares, Both, Daily in AM, # 3 each, 3 Refills, Maintenance, 02/23/23 13:39:00 EST, [place], [place], [place] - [id number], Partial fill upon patient request if the prescription is for a schedule II opioid drug., 2 sp... Start Date: 02/23/23 Status: Ordered folic acid 1 mg oral tablet 1, tablet, By Mouth, Daily, # 30 tablet, Refills 5, Tot. Refills 5, Maintenance, 06/06/22 16:49:00 EDT, Route to Pharmacy Electronically, [facility], [place] - [id number], 178, cm, 06/06/22 16:31:00 EDT, Height, 101.4, [...] 02/23/23 13:39:00 EST, Route to Pharmacy Electronically, [facility], [place] - [id number], 178, cm, 02/23/23 13:19:00 EST, Height, 114, kg, 01/08/23... Start Date: 02/23/23 Status: Ordered metFORMIN 500 mg oral tablet, extended release 2 tablet = 1,000 mg, By Mouth, 2 times a day, 1 tab daily x 1 week then 1 tab BID x 1 week then 2 tabs BID, # 120 tablet, 4 Refills, Maintenance, 02/23/23 13:34:00 EST, ER Tablet, [place], [place] - [id number], Partial fill upon patie... Start Date: 02/23/23 Status: Ordered multivitamin Multiple Vitamins oral tablet 1 tablet, By Mouth, Daily, # 90 tablet, 3 Refills, Maintenance, 05/06/23 10:33:00 EDT, Tablet, [facility], [place] - [id number], Partial fill upon patient request if the [...] Active Knee pain, bilateral Confirmed Active BHN/CCA/One Care/Radial Arm Saw Operator-Tia Jarrett [phone]/Health skilled nursing, active care coordination Confirmed Active Severe obesity [...] Team Personnel Name: Ela Beltrán RN Position: [facility] AMB Nurse Member Role: Primary Care Nurse Name: Alaina Gillette RN Position: [facility] RN Member Role: Primary Care Nurse Name: Kristyn Tapia RN Position: [facility] RN Member Role: Primary Care Nurse Name: Lorna Gentile NP Position: [facility] Associate Professional Member Role: Primary Care Nurse Address: Address: [address] [place] [address] Name: Venus Jaramillo RN Position: [facility] RN Member Role: Primary Care Nurse Name: Flor Donnelly RN Position: [facility] RN Member Role: Primary Care Nurse Name: Ruiz Matson RN Position: [facility] RN Member Role: Primary Care Nurse Name: Belle Ames RN Position: [facility] RN Member Role: Primary Care Nurse Name: Alex Rios RN Position: [facility] RN Member Role: Primary Care Nurse Name: Daniel Hernandez III, RN Position: [facility] RN Member Role: Primary Care Nurse Name: Jordi Carter MD Position: [facility] Renal MD Member Role: Lifetime Consulting Physician Address: Address: [address] [facility] [address] [facility] [place] [address]- [place] Name: Loren Hamlin RN Position: [facility] RN Member Role: Primary Care Nurse Name: Malia Wise RN Position: [facility] RN Member Role: Primary Care Nurse Name: Lamine Lin MD Position: [facility] Physician - Primary Care Member Role: PCP Address: Address: [address] [place] [address]- [place] Name: Rose Abraham RN Position: [facility] Hospital Balling Machine Operator Member Role: Primary Care Nurse Name: Vinod Botello MD Position: [facility] Physician - Behavioral Health Member Role: Lifetime Consulting Physician Address: Address: [address] [place] [address]- [place] Care Team Related Persons Name: MALIA HARRIS Name: KATHLEEN JACQUES Address: home [address] [place] [address] Name: VIRGIL PARKS Address: home [address] [place] [address] Name: MICHAELA MONTENEGRO Address: home UNKNOWN Name: MIGUEL PUENTES Address: home [address] [place] [address]
--- OUTSIDE RECORDS SUMMARY | 2023-09-06 23:43 | XMS_ITS | Continuity of Care Document ---
Author Organization [facility] Address [address] [place] [address]- Care Team Providers Care Clinical Editor Name Role Phone Delia ACOSTA, Lamine Covington Primary Care Physician [phone] [facility] 03[facility]23[facility]23 - 04/22/23 [facility] [address] [place] [address]- Allergies, Adverse Reactions, Alerts Substance Reaction Severity [...] virus vaccine, inactivated 2 12/30/10 Gi annia [id number] 12y+ bivalent booster vax 02/07/22 Given SARS-CoV-2 [...] 03/29/23 15:12:00 EST, Tablet, [facility] [place], [place] - [id number], discontinue amlodipine 2.5 mg daily. replace with [...] 4 Refills, Maintenance, 02/23/23 13:53:00 EST, Gel, [facility], [place] - [id number], Partial fill... Start Date: 02/23/23 Status: Ordered docusate sodium 100 mg oral capsule 1 capsule, By Mouth, Daily, # 30 each, 1 Refills, Maintenance, 06/06/22 16:49:00 EDT, [facility] [place] - [id number], 178, cm, 06/06/22 16:31:00 EDT, Height, 101.4, kg, 01/12/22 14:14:00 EST, Dry Weight Start Date: 06/06/22 Status: Ordered Flonase 50 mcg/inh nasal spray 2 sprays = 100 mcg, Nares, Both, Daily in AM, # 3 each, 3 Refills, Maintenance, 02/23/23 13:39:00 EST, [place], [facility], [place] - [id number], Partial fill upon patient request if the prescription is for a schedule II opioid drug., 2 sp... Start Date: 02/23/23 Status: Ordered folic acid 1 mg oral tablet 1, tablet, By Mouth, Daily, # 30 tablet, Refills 5, Tot. Refills 5, Maintenance, 06/06/22 16:49:00 EDT, Route to Pharmacy Electronically, [facility] [place] [id number], 178, cm, 06/06/22 16:31:00 EDT, Height, 101.4, [...] 02/23/23 13:39:00 EST, Route to Pharmacy Electronically, [facility], [place] - [id number], 178, cm, 02/23/23 13:19:00 EST, Height, 114, kg, 01/08/23... Start Date: 02/23/23 Status: Ordered metFORMIN 500 mg oral tablet, extended release 2 tablet = 1,000 mg, By Mouth, 2 times a day, 1 tab daily x 1 week then 1 tab BID x 1 week then 2 tabs BID, # 120 tablet, 4 Refills, Maintenance, 02/23/23 13:34:00 EST, ER Tablet, [facility], [facility] [id number], Partial fill upon patie... Start Date: 02/23/23 [...] Active Knee pain, bilateral Confirmed Active BHN/CCA/One Care/Recycling Manager-Tia Jarrett [phone]/Health senior living, active care coordination Confirmed Active [...] Role: Primary Care Nurse Address: Address: [address] [place] [address]- [place] Name: Venus Jaramillo RN Position: [facility] [...] Role: Lifetime Consulting Physician Address: Address: [address] [facility] [address] [facility] [place] [address]- [place] Name: Loren Hamlin RN Position: [facility] RN Member Role: Primary Care Nurse Name: Malia Wise RN Position: [facility] RN Member Role: Primary Care Nurse Name: Lamine Lin MD Position: [facility] Physician - Primary Care Member Role: PCP Address: Address: [address] [facility] [place] [address]- [place] Name: Rose Abraham RN Position: [facility] Button Sawyer Member Role: Primary Care Nurse Name: Vinod Botello MD Position: [facility] Physician - Behavioral Health Member Role: Lifetime Consulting Physician Address: Address: [address] [place] [address]- [place] Care Team Related Persons Name: MALIA HARRIS Name: KATHLEEN JACQUES Address: home [address] [place] [address] Name: VIRGIL PARKS Address: home [address] [place] [address] Name: MICHAELA MONTENEGRO Address: home UNKNOWN Name: MIGUEL PUENTES Address: home [address] [address]
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
--- OUTSIDE RECORDS SUMMARY | 2023-09-06 23:44 | XMS_ITS | Continuity of Care Document ---
Author Organization [facility] Address [address] [place] [address]- Care Team Providers Care Family Preservation Officer Name Role Phone Delia ACOSTA, Lamine Covington Primary Care Physician [facility] 03[facility]10/23 - 04/09/23 [facility] [address] [place] [address]- Allergies, Adverse Reactions, Alerts Substance Reaction Severity [...] virus vaccine, inactivated 2 12/30/10 Gi annia [id number] 12y+ bivalent booster vax 02/07/22 Given SARS-CoV-2 [...] 03/29/23 15:12:00 EST, Tablet, [facility] [place], [place] - [id number], discontinue amlodipine 2.5 mg daily. replace with [...] 4 Refills, Maintenance, 02/23/23 13:53:00 EST, Gel, [facility], [place] - [id number], Partial fill... Start Date: 02/23/23 Status: Ordered docusate sodium 100 mg oral capsule 1 capsule, By Mouth, Daily, # 30 each, 1 Refills, Maintenance, 06/06/22 16:49:00 EDT, [facility] [place] - [id number], 178, cm, 06/06/22 16:31:00 EDT, Height, 101.4, kg, 01/12/22 14:14:00 EST, Dry Weight Start Date: 06/06/22 Status: Ordered Flonase 50 mcg/inh nasal spray 2 sprays = 100 mcg, Nares, Both, Daily in AM, # 3 each, 3 Refills, Maintenance, 02/23/23 13:39:00 EST, [place], [facility], [place] - [id number], Partial fill upon patient request if the prescription is for a schedule II opioid drug., 2 sp... Start Date: 02/23/23 Status: Ordered folic acid 1 mg oral tablet 1, tablet, By Mouth, Daily, # 30 tablet, Refills 5, Tot. Refills 5, Maintenance, 06/06/22 16:49:00 EDT, Route to Pharmacy Electronically, [facility] [place] [id number], 178, cm, 06/06/22 16:31:00 EDT, Height, 101.4, [...] 02/23/23 13:39:00 EST, Route to Pharmacy Electronically, [place], [place] - [id number], 178, cm, 02/23/23 13:19:00 EST, Height, 114, kg, 01/08/23... Start Date: 02/23/23 Status: Ordered metFORMIN 500 mg oral tablet, extended release 2 tablet = 1,000 mg, By Mouth, 2 times a day, 1 tab daily x 1 week then 1 tab BID x 1 week then 2 tabs BID, # 120 tablet, 4 Refills, Maintenance, 02/23/23 13:34:00 EST, ER Tablet, [place], [place] - [id number], Partial fill upon patie... Start Date: 02/23/23 [...] Confirmed Active Knee pain, bilateral Confirmed Active BHN/CCA/Roof Tiler-Tia Kolby [phone]/Health custodial, active care coordination Confirmed Active Severe obesity [...] Role: Primary Care Nurse Address: Address: [address] [facility] [address]- [place] Name: Venus Jaramillo RN [facility] Care Nurse Name: Alex Rios RN Position: [facility] RN Member Role: Primary Care Nurse Name: Daniel Hernandez III, RN Position: [facility] RN Member Role: Primary Care Nurse Name: Jordi Carter MD Position: [facility] Renal MD Member Role: Lifetime Consulting Physician Address: Address: [address] [facility] [facility] [address] [facility] [place] [address]- [place] Name: Loren Hamlin RN Position: [facility] RN Member Role: Primary Care Nurse Name: Malia Wise RN Position: [facility] RN Member Role: Primary Care Nurse Name: Lamine Lin MD Position: [facility] Physician - Primary Care Member Role: PCP Address: Address: [address] [facility] [place] [address]- [place] Name: Rose Abraham RN Position: [facility] Abattoir Manager Member Role: Primary Care Nurse Name: Vinod Botello MD Position: [facility] Physician - Behavioral Health Member Role: Lifetime Consulting Physician Address: Address: [address] [place] [address]- [place] Care Team Related Persons Name: MALIA HARRIS Name: KATHLEEN JACQUES Address: home [address] [place] [address] Name: VIRGIL PARKS Address: home [address] [place] [address] Name: MICHAELA MONTENEGRO Address: home UNKNOWN Name: MIGUEL PUENTES Address: home [address] [place] [address]
--- OUTSIDE RECORDS SUMMARY | 2023-09-06 23:44 | XMS_ITS | Continuity of Care Document ---
Author Organization [facility] Address [address] [place] [address]- Care Team Providers Care Fruit Bar Maker Name Role Phone Delia ACOSTA, Lamine Covington Primary Care Physician [facility]23 - 06/24/23 [facility] [address] [place], [place] [phone] Allergies, Adverse Reactions, Alerts Substance Reaction Severity [...] virus vaccine, inactivated 2 12/30/10 Gi annia [id number] 12y+ bivalent booster vax 02/07/22 Given SARS-CoV-2 [...] 05/05/23 16:43:00 EDT, Route to Pharmacy Electronically, [facility] [id number], Partial fill upon patient request if the [...] 4 Refills, Maintenance, 02/23/23 13:53:00 EST, Gel, [place], [place] - [id number], Partial fill... Start Date: 02/23/23 Status: Ordered docusate sodium 100 mg oral capsule 1 capsule, By Mouth, Daily, # 30 each, 1 Refills, Maintenance, 06/06/22 16:49:00 EDT, [facility] [id number], 178, cm, 06/06/22 16:31:00 EDT, Height, 101.4, kg, 01/12/22 14:14:00 EST, Dry Weight Start Date: 06/06/22 Status: Ordered ferrous gluconate 324 mg oral tablet 1 tablet = 324 mg, By Mouth, Daily, # 100 tablet, 0 Refills, Maintenance, 05/06/23 10:33:00 EDT, Tablet, [place], [place] - [id number], Partial fill upon patient request if the prescription is for a schedule II opioid drug., 178, cm,... Start Date: 05/06/23 Status: Ordered Flonase 50 mcg/inh nasal spray 2 sprays = 100 mcg, Nares, Both, Daily in AM, # 3 each, 3 Refills, Maintenance, 02/23/23 13:39:00 EST, [place], [place], [place] - [id number], Partial fill upon patient request if the prescription is for a schedule II opioid drug., 2 sp... Start Date: 02/23/23 Status: Ordered folic acid 1 mg oral tablet 1, tablet, By Mouth, Daily, # 30 tablet, Refills 5, Tot. Refills 5, Maintenance, 06/06/22 16:49:00 EDT, Route to Pharmacy Electronically, [facility], [place] - [id number], 178, cm, 06/06/22 16:31:00 EDT, Height, 101.4, [...] 02/23/23 13:39:00 EST, Route to Pharmacy Electronically, [facility], [place] - [id number], 178, cm, 02/23/23 13:19:00 EST, Height, 114, kg, 01/08/23... Start Date: 02/23/23 Status: Ordered metFORMIN 500 mg oral tablet, extended release 2 tablet = 1,000 mg, By Mouth, 2 times a day, 1 tab daily x 1 week then 1 tab BID x 1 week then 2 tabs BID, # 120 tablet, 4 Refills, Maintenance, 02/23/23 13:34:00 EST, ER Tablet, [place], [place] - [id number], Partial fill upon patie... Start Date: 02/23/23 Status: Ordered multivitamin Multiple Vitamins oral tablet 1 tablet, By Mouth, Daily, # 90 tablet, 3 Refills, Maintenance, 05/06/23 10:33:00 EDT, Tablet, [facility], [place] - [id number], Partial fill upon patient request if the [...] Active Knee pain, bilateral Confirmed Active BHN/CCA/One Care/Loss Mitigation Specialist-Tia Jarrett [phone]/Health residential, active care coordination Confirmed Active Severe obesity [...] Team Personnel Name: Ela Beltrán RN Position: [facility] Nurse Member Role: Primary Care Nurse Name: Alaina Gillette RN Position: [facility] RN Member Role: Primary Care Nurse Name: Kristyn Tapia RN Position: [facility] RN Member Role: Primary Care Nurse Name: Lorna Gentile NP Position: [facility] Associate Professional Member Role: Primary Care Nurse Address: Address: [address] [place] [address] Name: Venus Jaramillo RN Position: [facility] RN Member Role: Primary Care Nurse Name: Flor Donnelly RN Position: [facility] RN Member Role: Primary Care Nurse Name: Ruiz Matson RN Position: [facility] RN Member Role: Primary Care Nurse Name: Belle Ames RN Position: [facility] RN Member Role: Primary Care Nurse Name: Alex Rios RN Position: [facility] RN Member Role: Primary Care Nurse Name: Daniel Hernandez III, RN Position: [facility] RN Member Role: Primary Care Nurse Name: Jordi Carter MD Position: [facility] Renal MD Member Role: Lifetime Consulting Physician Address: Address: [address] [facility] [address] [facility] [place] [address]- [place] Name: Loren Hamlin RN Position: [facility] RN Member Role: Primary Care Nurse Name: Malia Wise RN Position: [facility] RN Member Role: Primary Care Nurse Name: Lamine Lin MD Position: [facility] Physician - Primary Care Member Role: PCP Address: Address: [address] [place] [address]- [place] Name: Rose Abraham RN Position: [facility] Hospital Starch Treating Assistant Member Role: Primary Care Nurse Name: Vinod Botello MD Position: [facility] Physician - Behavioral Health Member Role: Lifetime Consulting Physician Address: Address: [address] [place] [address]- [place] Care Team Related Persons Name: MALIA HARRIS Name: KATHLEEN JACQUES Address: home [address] [place] [address] Name: VIRGIL PARKS Address: home [address] [place] [address] Name: MICHAELA MONTENEGRO Address: home UNKNOWN Name: MIGUEL PUENTES Address: home [address] [place] [address]
--- OUTSIDE RECORDS SUMMARY | 2023-09-06 23:45 | XMS_ITS | Continuity of Care Document ---
Author Organization [facility] Address [address] [place] [address]- Care Team Providers Care Organizational Research Consultant Name Role Phone Delia ACOSTA, Lamine Covington Primary Care Physician [facility]23 - 05/31/23 [facility] [address] [place] [address]- Attending Physician: Not on Staff, Attending MD [...] virus vaccine, inactivated 2 12/30/10 Gi annia [id number] 12y+ bivalent booster vax 02/07/22 Given SARS-CoV-2 [...] 16:43:00 EDT, Route to Pharmacy Electronically, [facility] [id number], Partial fill upon patient request if the [...] 4 Refills, Maintenance, 02/23/23 13:53:00 EST, Gel, [place], [place] - [id number], Partial fill... Start Date: 02/23/23 Status: Ordered docusate sodium 100 mg oral capsule 1 capsule, By Mouth, Daily, # 30 each, 1 Refills, Maintenance, 06/06/22 16:49:00 EDT, [facility] [id number], 178, cm, 06/06/22 16:31:00 EDT, Height, 101.4, kg, 01/12/22 14:14:00 EST, Dry Weight Start Date: 06/06/22 Status: Ordered ferrous gluconate 324 mg oral tablet 1 tablet = 324 mg, By Mouth, Daily, # 100 tablet, 0 Refills, Maintenance, 05/06/23 10:33:00 EDT, Tablet, [place], [place] - [id number], Partial fill upon patient request if the prescription is for a schedule II opioid drug., 178, cm,... Start Date: 05/06/23 Status: Ordered Flonase 50 mcg/inh nasal spray 2 sprays = 100 mcg, Nares, Both, Daily in AM, # 3 each, 3 Refills, Maintenance, 02/23/23 13:39:00 EST, [place], [place], [place] - [id number], Partial fill upon patient request if the prescription is for a schedule II opioid drug., 2 sp... Start Date: 02/23/23 Status: Ordered folic acid 1 mg oral tablet 1, tablet, By Mouth, Daily, # 30 tablet, Refills 5, Tot. Refills 5, Maintenance, 06/06/22 16:49:00 EDT, Route to Pharmacy Electronically, [facility], [place] - [id number], 178, cm, 06/06/22 16:31:00 EDT, Height, 101.4, [...] 02/23/23 13:39:00 EST, Route to Pharmacy Electronically, [facility], [place] - [id number], 178, cm, 02/23/23 13:19:00 EST, Height, 114, kg, 01/08/23... Start Date: 02/23/23 Status: Ordered metFORMIN 500 mg oral tablet, extended release 2 tablet = 1,000 mg, By Mouth, 2 times a day, 1 tab daily x 1 week then 1 tab BID x 1 week then 2 tabs BID, # 120 tablet, 4 Refills, Maintenance, 02/23/23 13:34:00 EST, ER Tablet, [facility], [place] - [id number], Partial fill upon patie... Start Date: 02/23/23 Status: Ordered multivitamin Multiple Vitamins oral tablet 1 tablet, By Mouth, Daily, # 90 tablet, 3 Refills, Maintenance, 05/06/23 10:33:00 EDT, Tablet, [facility], [place] - [id number], Partial fill upon patient request if the [...] Active Knee pain, bilateral Confirmed Active BHN/CCA/One Care/Applied Biology Professor-Tia Jarrett [phone]/Health chcf, active care coordination Confirmed Active Severe [...] Personnel Name: Ela Beltrán RN Position: [facility] AMB Nurse Member Role: Primary Care Nurse Name: Alaina Gillette RN Position: [facility] RN Member Role: Primary Care Nurse Name: Kristyn Tapia RN Position: [facility] RN Member Role: Primary Care Nurse Name: Lorna Gentile NP Position: [facility] Associate Professional Member Role: Primary Care Nurse Address: Address: [address] [place] [address] Name: Venus Jaramillo RN Position: [facility] RN Member Role: Primary Care Nurse Name: Flor Donnelly RN Position: [facility] RN Member Role: Primary Care Nurse Name: Ruiz Matson RN Position: [facility] RN Member Role: Primary Care Nurse Name: Belle Ames RN Position: [facility] RN Member Role: Primary Care Nurse Name: Alex Rios RN Position: [facility] RN Member Role: Primary Care Nurse Name: Daniel Hernandez III, RN Position: [facility] RN Member Role: Primary Care Nurse Name: Jordi Carter MD Position: [facility] Renal MD Member Role: Lifetime Consulting Physician Address: Address: [address] [facility] [place] [address]- [place] Name: Loren Hamlin RN Position: [facility] RN Member Role: Primary Care Nurse Name: Malia Wise RN Position: [facility] RN Member Role: Primary Care Nurse Name: Lamine Lin MD Position: [facility] Physician - Primary Care Member Role: PCP Address: Address: [address] [place] [address]- [place] Name: Rose Abraham RN Position: [facility] Hospital Molecular Biologist Member Role: Primary Care Nurse Name: Vinod Botello MD Position: [facility] Physician - Behavioral Health Member Role: Lifetime Consulting Physician Address: Address: [address] [place] [address]- [place] Care Team Related Persons Name: MALIA HARRIS Name: KATHLEEN JACQUES Address: home [address] [place] [address] Name: VIRGIL PARKS Address: home [address] [place] [address] Name: MICHAELA MONTENEGRO Address: home UNKNOWN Name: MIGUEL PUENTES Address: home [address] [place] [address]
--- OUTSIDE RECORDS SUMMARY | 2023-09-06 23:45 | XMS_ITS | Continuity of Care Document ---
Author Organization [facility] Address [address] [place] [id number]- Care Team Providers Care Diabetes Territory Manager Name Role Phone Delia ACOSTA, Lamine Covington Primary Care Physician [place] [facility] [place]): [place]23 - 05/29/[address] [address]- Encounter Diagnosis Schizoaffective disorder(Final) - 05/29/23 Suicidal ideations(Final) - 05/29/23 Discharge Disposition: Transfer to [facility] Facility Attending Physician: Renan Powell MD Admitting Physician: Renan Powell MD Referring Physician: Not on Staff, Referring [...] influenza virus vaccine, inactivated 2 12/30/10 Gi nania [id number] 12y+ bivalent booster vax 02/07/22 Given SARS-CoV-2 [...] 05/05/23 16:43:00 EDT, Route to Pharmacy Electronically, [facility] [id number], Partial fill upon patient request if the prescription is f... Start Date: 05/05/23 Status: Ordered amLODIPine 10 mg oral tablet 10 mg, Tablet, By Mouth, 05/29/23 9:00:00 EDT Start Date: 05/29/23 Stop Date: 05/29/23 Status: Completed benztropine 1 mg oral tablet [...] 4 Refills, Maintenance, 02/23/23 13:53:00 EST, Gel, [place], [place] - [id number], Partial fill... Start Date: 02/23/23 Status: Ordered docusate sodium 100 mg oral capsule 1 capsule, By Mouth, Daily, # 30 each, 1 Refills, Maintenance, 06/06/22 16:49:00 EDT, [facility], [facility] [id number], 178, cm, 06/06/22 16:31:00 EDT, Height, 101.4, kg, 01/12/22 14:14:00 EST, Dry Weight Start Date: 06/06/22 Status: Ordered ferrous gluconate 324 mg oral tablet 1 tablet = 324 mg, By Mouth, Daily, # 100 tablet, 0 Refills, Maintenance, 05/06/23 10:33:00 EDT, Tablet, [facility] [id number], Partial fill upon patient request if the prescription is for a schedule II opioid drug., 178, cm,... Start Date: 05/06/23 Status: Ordered Flonase 50 mcg/inh nasal spray 2 sprays = 100 mcg, Nares, Both, Daily in AM, # 3 each, 3 Refills, Maintenance, 02/23/23 13:39:00 EST, [place], [facility] [id number], Partial fill upon patient request if the prescription is for a schedule II opioid drug., 2 sp... Start Date: 02/23/23 Status: Ordered folic acid 1 mg oral tablet 1, tablet, By Mouth, Daily, # 30 tablet, Refills 5, Tot. Refills 5, Maintenance, 06/06/22 16:49:00 EDT, Route to Pharmacy Electronically, [facility], [place] - [id number], 178, cm, 06/06/22 16:31:00 EDT, Height, 101.4, [...] A DAY Start Date: 03/31/23 Status: Ordered gabapentin 400 mg oral capsule 400 mg, Capsule, By Mouth, 05/29/23 9:00:00 EDT Start Date: 05/29/23 Stop Date: 05/29/23 Status: Completed haloperidol 5 mg oral tablet TAKE 3 [...] 02/23/23 13:39:00 EST, Route to Pharmacy Electronically, [facility], [place] - [id number], 178, cm, 02/23/23 13:19:00 EST, Height, 114, kg, 01/08/23... Start Date: 02/23/23 Status: Ordered metFORMIN 500 mg oral tablet, extended release 2 tablet = 1,000 mg, By Mouth, 2 times a day, 1 tab daily x 1 week then 1 tab BID x 1 week then 2 tabs BID, # 120 tablet, 4 Refills, Maintenance, 02/23/23 13:34:00 EST, ER Tablet, [place], [place] - [id number], Partial fill upon patie... 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 Kolby [phone]/[facility], active care coordination [...] 3 Oxygen Saturation [94-100 %] 99 % (05/29/23 8:23 AM) 99 % (05/29/23 3:01 AM) Pulse Rate [55-90 bpm] 78 bpm (05/29/23 2:44 PM) 90 bpm (05/29/23 8:23 AM) 95 bpm *H* (05/29/23 3:01 AM) Blood Pressure [90-138/55-84 mm Hg] 132/74mm Hg (05/29/23 2:44 PM) 133/88mm Hg (05/29/23 8:23 AM) 141/74mm Hg *H* (05/29/23 3:01 AM) Respiratory Rate [16-30 br/min] 18 br/min (05/29/23 2:44 PM) 16 br/min (05/29/23 9:24 AM) 16 br/min (05/29/23 8:23 AM) Temperature [96.8-100.4 DegF] 97.7 DegF (05/29/23 2:44 PM) 98.9 DegF (05/29/23 3:01 AM) Mode of Delivery (Oxygen) Room air (05/29/23 8:23 AM) Room air (05/29/23 3:01 AM) Blood pressure sites Arm, right (05/29/23 8:23 AM) Arm, right (05/29/23 3:01 AM) Temperature Route Oral (05/29/23 2:44 PM) Oral (05/29/23 3:01 AM) Social History Social History Type Response Smoking Status Never smoker entered on: 10/02/13 Sex Male Note * Renan Powell MD: PERFORM Event Display: Patient Education Leaflets Authored Date: [id number] Schizoaffective Disorder ?? [id number] Trastorno esquizoafectivo El trastorno esquizoafectivo es caleb afecci??n de aden mental cr??jeremy grave que tiene s??ntomas deesquizofrenia (alucinaciones o delirios) y s??ntomas de trastorno del estado de ??azar (man??a y depresi??n). El trastorno esquizoafectivo es caleb afecci??n poco frecuente. Frecuentemente se lo diagnostica de manera incorrecta stefania trastorno bipolar. Puede demorar determinar la diferencia entre el trastorno esquizoafectivo y la esquizofrenia y los trastornos del estado de ??azar. La esquizofrenia es de larga duraci??n (cr??jeremy). Dificulta el trabajo y la bassam en sociedad. Es un tipo de psicosis por el que se percibe la realidad de manera diferente con respecto a las personasque lo rodean. La distinci??n entre realidad y lo que usted piensa se puede volver confusa en regan mente.??La causa de la esquizofrenia a??n se desconoce. Se christiana que es el resultado de factores gen??ticos y biol??gicos, stefania qu??laron y estructura cerebral. Los s??ntomas de esquizofrenia??son los siguientes: ??? Rosa cosas u o??r voces que no est??n presentes (alucinaciones) ??? Creencias falsas (delirio) ??? Habla y pensamientos desorganizados ??? Ansiedad grave ??? Sensaci??n de irrealidad ??? Paranoia ??? Insomnio ??? Dificultades para pensar con claridad o concentrarse ??? Depresi??n, pensamientos suicidas ??? Alejamiento de las personas que lo rodean (aislamiento social) La depresi??n es un tipo de trastorno del estado de ??azar relacionado con la qu??laron cerebral. Noes solo un estado de infelicidad o tristeza sino caleb verdadera enfermedad. Puede ser que sienta unafalta de inter??s en geneva actividades normales. A veces puede sentir tristeza o sentimientos de culpa bilidad sin motivo aparente. Regan pensamiento puede volverse m??s lento y puede tener caleb falta de energ??a o sentimientos de desesperanza. Algunas personas tienen pensamientos de lastimarse axel esta etapa. Los pensamientos hasta pueden incluir el suicidio. El trastorno bipolar es el otro trastorno principal del estado de ??azar. Es caleb enfermedad que causa cambios darian en el estado de ??azar entre depresi??n y man??a. En la fase man??ian puede pensar r??pidamente y hacer las cosas r??pidamente. Puede parecer stefania que est?? logrando hacer mucho. Alprincipio, esto puede sentirse muy merchant; jp en el extremo esto puede conducir a un estilo de bassam desorganizado, ca??carlos y que incluye comportamiento arriesgado (gastar demasiado dinero, comportamiento sexual inapropiado o consumo de drogas). En etapas posteriores, puede afectar la alimentaci??n (anabell??n inter??s en la comida) y el dormir (no poder dormir por d??as a la vez). El habla puede acelerarse y volverse dif??cil de entender. Puede que otras personas piensen que est?? en regan propio franklyn. Se desconoce la causa exacta del trastorno esquizoafectivo. Pj existe un factor gen??carlos que aumenta las probabilidades de contraer esta enfermedad si un miembro de la adrien la padece. El consumo de drogas tales stefania anfetaminas ( speed ) y coca??na aumenta el riesgo de contraer krystal trastorno. Las personas que tienen esta enfermedad por lo general necesitar??n tratamiento a jhonny plazo. La medicina y la psicoterapia pueden ayudar. Cuidados en el hogar ??? La atenci??n y el apoyo constantes ayudan a controlar la enfermedad. Busque un proveedor de atenci??n m??dica y un terapeuta que atiendan geneva necesidades. No se sienta desanimado si debe consultar con muchos terapeutas antes de encontrar al que trabaje dillan con usted. ??? Aseg??rese de eric regan medicamento seg??n lo que le hayan indicado, a??n si piensa que no lo necesita. No cambie la dosis ni deje de administrarse los medicamentos, a menos que hable con regan proveedor. No comparta geneva medicamentos ni tome los medicamentos de otra persona. ??? Hable con el proveedor sitiene problemas para pagar por geneva medicamentos. P??maycol que lo ayuden a encontrar recursos para ayu darlo con esto. ??? H??gase las pruebas de laboratorio solicitadas de manera oportuna para controlar regan estado de aden general y asegurarse de que recibe la cantidad adecuada de medicamento. ??? Busque apoyo de geneva amigos y familiares hablando de geneva sentimientos y pensamientos. P??dales que lo ayuden a reconocer los cambios de comportamiento para que pueda solicitar ayuda cuanto antes. Si es necesario, regan proveedor de atenci??n m??dica puede realizar ajustes en la administraci??n de los medicamentos y prevenir que se desarrollen problemas graves. ??? Recuerde informarles a los proveedores de atenci??n m??dica todos los medicamentos recetados, de venta dom y suplementos que ingiere. Entre ellos, se incluye regna dentista.??Existen determinados suplementos que interact??an con los medicamentos y pueden provocar efectos secundarios peligrosos.?? Consulte con el farmac??utico si tiene alguna ida acerca de las interacciones medicamentosas. ??? Si tiene dificultades para manejar las situac iones en el ??mbito de trabajo o para cuidarse debido a la enfermedad, comun??quese con la secretar??a local para Estadounidenses con Discapacidades (ADA, por regan sigla en ingl??s). ??El Departamento de Justicia de [place] tiene caleb l??wesley gratuita de informaci??n sobre la ADA: [phone] (voz) o [phone] (TTY). ??Los operadores pueden ayudarlo a encontrar regan secretar??a local. ??? Evite elconsumo de alcohol, anfetaminas, coca??na o drogas relacionadas para tratar geneva s??ntomas. Estos interactuar??n con geneva medicamentos y empeorar??n regan afecci??n. Si los s??ntomas no se controlan, vuelv a con regan proveedor. Es posible que necesite modificar la dosis de regan medicamento actual o un medicamento diferente. ?? Atenci??n de seguimiento Asista a las citas de seguimiento con el proveedor de atenci??n m??dica, o seg??n le hayan indicado. ?? Cu??ndo llamar al?? [address] o env??e un mensaje de texto al?? 988 si tiene algo de lo siguiente: ??? Pensamientos de hacerse da??o a usted mismo o a otros. Se lo pondr?? en contacto con consejerosde crisis capacitados. ??? Tiene dificultad para respirar ??? Se siente muy confundido ??? Se siente adormecido o tiene dificultades para despertarse ??? Se desmaya o pierde el conocimiento ??? Presenta frecuencia card??ian acelerada, muy baja o irregular ??? Tiene convulsiones Los consejeros del?? 988 trabajan en conjunto con el?? 911 para que usted reciba la asistencia que necesita. ?? Cu??ndo debe buscar atenci??n m??dica Llame al proveedor de atenci??n m??dica de inmediato ante cualquiera de las siguientes situaciones:??? Considera que los s??ntomas empeoran ??? Regan adrien o amigos manifiestan preocupaci??n por regan comportamiento y le solicitan que busque ayuda ??? Se siente fuera de control o que otros lo est??n controlando ??? Efectos secundarios imposibles de controlar causados por los medicamentos recetados. No deje de eric los medicamentos debido a los efectos secundarios a menos que hable con regan proveedor. ??? Sensaci??n de deseo de hacerse da??o o da??ar a otra persona ??? Incapacidad de cuidarse a usted mismo ??? Alucinaciones que empeoran ??? Delirio o paranoia que empeora ??? Depresi??n o ansiedad que empeora ?? Last Reviewed Date: 2020 ?? [id number] [employer] Todos los derechos reservados. Esta informaci??n no [...] Tapia RN Position: [facility] SN RN Member Role: Primary Care Nurse Name: Seferino FOIL SPINNERLorna Position: [facility] Associate Professional Member Role: Primary Care Nurse Address: Address: [address] [place] [address]- [place] Name: Venus Jaramillo RN [facility] Member Role: Lifetime Consulting Physician Address: Address: [address] [place] [address] [address] [facility] [place], [place] [address]- [place] Name: Loren Hamlin RN Position: [facility] RN Member Role: Primary Care Nurse Name: Malia Wise RN Position: [facility] RN Member Role: Primary Care Nurse Name: Lamine Lin MD Position: [facility] Physician - Primary Care Member Role: PCP Address: Address: [address] [place] [address]- [place] Name: Rose Abraham RN Position: [facility] Mosquito Sprayer Member Role: Primary Care Nurse Name: Vinod Botello MD Position: [facility] Physician - Behavioral Health Member Role: Lifetime Consulting Physician Address: Address: [address] [place] [address]- [place] Care Team Related Persons Name: GELACIOMALIA MUNOZ Name: KATHLEEN JACQUES Address: home [address] [place] [address] Name: VIRGIL PARKS Address: home [address] [place] [address] Name: MICHAELA MONTENEGRO Address: home UNKNOWN Name: MIGUEL PUENTES Address: home [address] [place] [address]
--- OUTSIDE RECORDS SUMMARY | 2023-09-06 23:45 | XMS_ITS | Continuity of Care Document ---
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 [facility] helpful but the main stressor was still present when he returned home. ? Per chart review, patient has history of multiple inpatient psychiatric hospitalizations with multiple medication trials. He has history of suicidal gestures but unclear if he has history of suicide attempts. Patient notes smoking marijuana daily which he utilizes to help calm self and buys from dispensary. He also smokes cigarettes a lot . Denies other substance use. Review of Systems Pertinent positives as listed above in HPI. ??Otherwise, remainder of review of systems negative. Mental Status Vitals & Measurements T:??98.2?F?? TMIN:??98.2?F?? TMAX:??98.8?F?? HR:??74??(Peripheral)?? RR:??19?? BP:??146/82?? SpO2:??98%?? Mental Status Exam ?Appearance: This is a male dressed in hospital gown. Eye contact is??appropriate ?Attitude: fairly cooperative with pleasant demeanor?Motor activity: calm; devoid of tics, tremors, psychomotor agitation, psychomotor slowing ?Mood: euthymic?Affect:??full range ?Speech: normal rate, low tone and normal prosody?Perception: no impairment and does not appear preoccupied or responding to internal stimuli?Orientation: intact ?Memory: intact. ?Thought process: Linear, logical, and coherent ?Thought content: Regarding events?Compliance: fair?Reliability: uncertain. ?Suicidality/self-destructive behavior: Currently denies having SI ?Homicidality/violence: none. ?Insight:??fair ?Judgment: fair MSK Exam:??Patient is not seen ambulating, but able to move all four extremities spontaneously. No rigidity noted.?? [place] Suicide Score [place] Suicide Assessment Ca (07/27/23) [place] Suicide Score Last Asked Ca (06/30/23) Suicidal Intent No Plan Past Month-CSSRS: No (07/27/23) Suicidal Thoughts Method Past Mon-CSSRS: No (07/27/23) Suicidal Thoughts Past Month - CSSRS: Yes (07/27/23) Suicidal Thoughts Since Last Asked-CSSRS: No (06/30/23) Suicide Behavior Lifetime - CSSRS: No (07/27/23) Suicide Behavior Past 3 Months - CSSRS: No (07/26/23) Suicide Behavior Since Last Asked-CSSRS: No (06/30/23) Suicide Intent w/Plan Past Month - CSSRS: No (07/27/23) Wish to be Past Month - CSSRS: Yes (07/27/23) Assessment/Plan This is a 33yo male with medical history of HTN, HLD, ESHA and psychiatric history of schizoaffective disorder with prior inpatient psychiatric hospitalizations (most recently to [facility] in June 2023) who initially presented reporting SI/HI but later medically admitted for further evaluation due to concern for GI bleeding. Psychiatry consulted for safety assessment due to patient's initial statements in the ED. ?? Patient??denying SI/HI at the time of evaluation. He is future-oriented and showed??help-seeking behavior by self-presenting for help. He??remains at chronically elevated risk due to history however currently there are no acute safety concerns to indicate higher level of psychiatric care. Patient was able to participate in safety planning and discussed presenting to ED or calling crisis if needed. ?? DSM-5 Diagnoses Hx of schizoaffective d/o ?? Recommendations - No indication for involuntary??inpatient psychiatric hospitalization at this time. Patient offered voluntary placement however he deferred at the time of timer - Ok to d/c suicide precautions - No new med changes ?? 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 Kolby [phone]/Health detention, active care coordination Diabetes mellitus Esophageal reflux (GERD) Gastric polypremoved 2020, EGD next due 2025 Gynecomastia Hypercholesterolemia Hypertension Keratoconus Knee pain, bilateral Morbid obesity with BMI of 45.0-49.9, adult NAFLD (nonalcoholic fatty liver disease) Obstructive sleep apnea, Complex sleep apnea Prediabetes (vs normal: had labs showing Both -2023) Schizoaffective Disorder, Unspecified Severe obesity Sleep related hypoxia Treatment-emergent central sleep apnea [place] Procedure/Surgical History ???EGD: Esophagogastroduodenoscopy and polypectomy of stomach (04/16/2020)???Extraction of wisdom tooth (2013) Medications Inpatient amLODIPine 10 mg oral tablet, 10 mg, By Mouth, Daily Ativan Tablet, 1 mg, By Mouth, Every 2 hours, PRN Ativan Tablet, 2 mg, By Mouth, Every 2 hours, PRN Folic Acid Tablet, 1 mg, By Mouth, Daily gabapentin 400 mg oral capsule, 400 mg, By Mouth, 3 times a day LITHium Tablet, 600 mg, By Mouth, 2 times a day LORazepam Tablet, 2 mg, By Mouth, Every hour, PRN metFORMIN 500 mg oral tablet, extended release, 1000 mg, By Mouth, 2 times a day Multivit Therapeutic/Minerals Tablet, 1 tablet, By Mouth, Daily Nicotine Gum, 2 mg, Chew, Every 2 hours, PRN pantoprazole 40 mg oral delayed release tablet, 40 mg, By Mouth, Daily Pyridoxine Tablet, 50 mg, By Mouth, Daily Thiamine Tablet, 100 mg, By Mouth, 2 times a day Tylenol 325 mg oral tablet, 650 mg, By Mouth, Every 4 hours, PRN Home Alcohol Pads, See Instructions, 11 refills amLODIPine 10 mg oral tablet, 10 mg= 1 tablet, By Mouth, Daily benztropine 1 mg oral tablet diclofenac 1% topical gel, 1 application, Topically, 4 times a day, 4 refills docusate sodium 100 mg oral capsule, 1 capsule, By Mouth, Daily, 1 refills ferrous gluconate 324 mg oral tablet, 324 mg= 1 tablet, By Mouth, Daily Flonase 50 mcg/inh nasal spray, 100 mcg= 2 sprays, Nares, Both, Daily in AM, 3 refills folic acid 1 mg oral tablet, 1 tablet, By Mouth, Daily, 5 refills Freestyle Lite Lancets, See Instructions, 11 refills FreeStyle Lite Strips, See Instructions Freestyle Lite Test Strips, See Instructions, 11 refills gabapentin 400 mg oral capsule haloperidol 5 mg oral tablet Inject Ease Lancets 28 gauge, See Instructions lithium 600 mg oral capsule loratadine 10 mg oral tablet, 10 mg= 1 tablet, By Mouth, Daily, 3 refills metFORMIN 500 mg oral tablet, extended release, 1000 mg= 2 tablet, By Mouth, 2 times a day, 4 refills multivitamin Multiple Vitamins oral tablet, 1 tablet, By Mouth, Daily, 3 refills pantoprazole 40 mg oral delayed release tablet, 1 tablet, By Mouth, Daily prazosin 5 mg oral capsule sertraline 100 mg oral tablet traZODone 150 mg oral tablet Allergies Dust Milk Products??(Nausea and vomiting) cloNIDine??(confusion) lisinopril??(dry cough) Social History Alcohol Use: Never. Employment/School Status: Disabled. Other: mental health. Highest education level: High school or GED. Exercise Self assessment: Poor condition. Regular exercise: No. Home/Environment Living situation: Home/Independent. Lives with: Alone, Friend. Other: [facility] assists with transportation. He buys his [...] No. Substance Abuse Use: Never. Tobacco Use: 4 or less cigarettes(less than 1/4 pack)/day in last 30 days. Family History Arthritis: Sister. Bipolar: Sister. CAD - Coronary artery disease: Mother. DVT: Sister. Hypercholesterolemia: Sister. Hypertension: Mother and Sister. Myocardial infarction: Mother. Obesity: Sister. Stroke: Sister. Immunizations Vaccine Date Status pneumococcal 20-valent conjugate vaccine 02/23/2023 Given influenza virus vaccine, inactivated 02/23/2023 Given [id number] 12y+ bivalent booster vax 02/07/2022 Given influenza [...] vis date 09/14/2010 tetanus/diphtheria/pertussis, acel(Tdap) 08/11/2009 Given Lab Results Event Name?? Event Result?? Normal Range?? Date/Time?? Hgb 14.6 Gm/dL 13.7 Gm/dL - 17.1 Gm/dL 07/27/23 06:48:00 Hct 47.2 % 40.5 % - 50 % 07/27/23 06:48:00 Protein, Total 7.2 Gm/dL 6.2 Gm/dL - 8.2 Gm/dL 07/27/23 14:26:00 Albumin 4.5 Gm/dL 3.4 Gm/dL - 4.8 Gm/dL 07/27/23 14:26:00 Alkaline Phosphatase 59 units/L 40 units/L - 129 units/L 07/27/23 14:26:00 AST (SGOT) 26 units/L 0 units/L - 40 units/L 07/27/23 14:26:00 ALT (SGPT) 20 units/L 0 units/L - 41 units/L 07/27/23 14:26:00 Bilirubin, Total 0.3 mg/dL 0 mg/dL - 1.2 mg/dL 07/27/23 14:26:00 Bilirubin, Direct <0.2 0 mg/dL - 0.3 mg/dL 07/27/23 14:26:00 Bilirubin, Indirect Direct bilirubin is less than the measureable limit. Therefore, indirect 0 mg/dL - 0.7 mg/dL 07/27/23 14:26:00 Appear/Color, Urine LIGHT YELLOW ?? 07/27/23 13:00:00 Clarity CLEAR ?? 07/27/23 13:00:00 Specific Campbell, Urine 1.017 1.002 ??- 1.03 07/27/23 13:00:00 pH, Urine 6.5 5 ??- 8 07/27/23 13:00:00 Albumin, Urine NEGATIVE ?? 07/27/23 13:00:00 Glucose, Urine NEGATIVE ?? 07/27/23 13:00:00 Ketones, Urine NEGATIVE ?? 07/27/23 13:00:00 Bilirubin, Urine NEGATIVE ?? 07/27/23 13:00:00 Hemoglobin, Urine NEGATIVE ?? 07/27/23 13:00:00 Nitrite, Urine NEGATIVE ?? 07/27/23 13:00:00 Leukocyte, Urine NEGATIVE ?? 07/27/23 13:00:00 Urobilinogen NORMAL ?? 07/27/23 13:00:00 WBC's, Urine 1 /HPF 0 /HPF - 5 /HPF 07/27/23 13:00:00 RBC's, Urine NONE SEEN 0 /HPF - 3 /HPF 07/27/23 13:00:00 Squamous Epith <1 0 /HPF - 8 /HPF 07/27/23 13:00:00 Mucus SLIGHT ?? 07/27/23 13:00:00 Culture Indication CULTURE NOT INDICATED ?? 07/27/23 13:00:00 Malb/Creat Ratio 14.6 mg/Gm 0 mg/Gm - 20 mg/Gm 07/27/23 13:00:00 Urine Creat For Micro Alb 116.8 mg/dL ?? 07/27/23 13:00:00 Micro-Albumin 17 mg/L ?? 07/27/23 13:00:00 ? Note * Magy Knox LPN: PERFORM Event Display: Discharge/Transfer Note Hospital Authored Date: Nursing Discharge Note Entered On: 07/28/2023 15:16 EDT Performed On: 07/28/2023 15:16 EDT by Magy Knox LPN Nursing Discharge Note 2 Discharge Time : 07/28/2023 14:45 EDT Discharge Level of Care at Discharge : Home/Prison/Foster Care Patient Left Unit Via : Wheelchair Patient Accompanied Off Unit with : Responsible adult DC Instructions Provided & Signed by Pt : Yes Patient Understands D/C Instructions : Yes Patient Instructions Discharge Signed : Yes Did Pt have Specialty Bed or Wound Vac : No Magy Knox LPN - 07/28/2023 15:16 EDT * Janel Elam MD, Brian Gilbert: PERFORM Event Display: Discharge/Transfer Note Hospital Authored Date: [id number] Patient: ??STEF ORTIZ ? Age:??33 Years?Sex:??Male?:??1990?? Patient Information Discharge Location: S1 Primary Care Physician: Lamine Lin MD Admit Date/Time: 07/26/23 10:01 Discharge Disposition Discharge Disposition: ?? Discharge Diagnosis ?? Homicidal ideation Hematemesis : resolved upper abdominal pain etoh use smoker _ Discharge Medications Amlodipine (amLODIPine 10 mg oral tablet)?10?Milligram?1?tablet?By Mouth?Daily?for 90?Days Benztropine (benztropine 1 mg oral tablet)?TAKE 1 TABLET BY MOUTH two (2) times a day Diclofenac Topical (diclofenac 1% topical gel)?1?blanche?Topically?4 times a day?2g per application on elbow, wrist or hand; 4g per application on knee ankle or foot. Docusate (docusate sodium 100 mg oral capsule)?1?capsule?By Mouth?Daily Durable Medical Equipment (Freestyle Lite Test Strips)?See Instructions?Check POC daily and if symptoms of sweats, dizziness, confusion, DX E11.9 Durable Medical Equipment (Freestyle Lite Lancets)?See Instructions?TID AC and qHS, E11.65 Durable Medical Equipment (Alcohol Pads)?See Instructions?Please dispense 1 box of alcohol pads Ferrous Gluconate (ferrous gluconate 324 mg oral tablet)?1?tab(s)?324?Milligram?By Mouth?Daily Fluticasone Nasal (Flonase 50 mcg/inh nasal spray)?2?spray(s)?100?Microgram?Nares, Both?Daily in AM Folic Acid (folic acid 1 mg oral tablet)?1?tablet?By Mouth?Daily Gabapentin (gabapentin 400 mg oral capsule)?TAKE 1 CAPSULE BY MOUTH 3 (THREE) TIMES A DAY Haloperidol (haloperidol 5 mg oral tablet)?TAKE 3 TABLETS BY MOUTH AT BEDTIME AND MAY TAKE 1/2 TAB ONCE DAILY NEEDED FOR AGITATION [place]usk (lithium 600 mg oral capsule)?TAKE 1 CAPSULE BY MOUTH two (2) times [...] TEST FINGER STICK BLOOD SUGAR ONCE DAILY Multivitamin (multivitamin Multiple Vitamins oral tablet)?1?tab(s)?By Mouth?Daily Pantoprazole (pantoprazole 40 mg oral delayed release tablet)?1?tab(s)?By Mouth?Daily?for 90?Days?take 30 mintues before foro or dirink, first thing in the morning if unable, the jsut take at any time Prazosin (prazosin 5 mg oral capsule)?TAKE 1 CAPSULE BY MOUTH ONCE DAILY AT BEDTIME Sertraline (sertraline 100 mg oral tablet)?TAKE 1 TABLET BY MOUTH ONCE DAILY Trazodone (traZODone 150 mg oral tablet)?TAKE 1 TABLET BY MOUTH ONCE DAILY AT BEDTIME ? Quality Measures Tobacco Use Treatment:? Allergies Allergies ?(Active and Proposed Allergies Only) Dust? (Severity: Mild, Onset: Unknown) Milk Products? (Severity: Persistent Moderate, Onset: 10/01/2020) ?Reactions: Nausea and vomiting cloNIDine? (Severity: Unknown severity, Onset: Unknown) ?Reactions: confusion lisinopril? (Severity: Unknown severity, Onset: Unknown) ?Reactions: dry cough ? Future Appointments Monday 8:15 AM EDT ?? With: Delia ACOSTA, Lamine Covington Where: [facility] [address] [place] [address]- Status: Pending Objective 33-year-old male with schizoaffective disorder, multiple inpatient psychiatric admissions most recently to [facility] in June, hypertension, hyperlipidemia, GERD,Gastric polyp on EGD in 2020, presenting with homicidal ideation. admitted under medicine for concern of GIB which has been ruled out w/ stable H/H and no further bleed. likely from retching since pt reported vomiting at home w/ heavy etohuse. ?? Homicidal ideation Has a history of HI, no current SI. States he has not been taking meds for at least the last week. - f/u lithium level > low cont lithium , gabapentin holding sertraline, trazodone??; follow official psych note for recs psych saw and recs appreciated, ok to dc constant tuck pointer helper, voluntary admission which pt is undecided, but he has resources if he wants to get admit. ?? Hematemesis : resolved Reports two quarter-sized blood tinged sputum. Had gastric polypectomy in 2020. Had no melena on rectal exam in the ED. Reports heavy alcohol, but no signs of portal hypertension, normal INR, normal platelets. Normal HGB. - cont po Pantoprazole - concern of GIB which has been ruled out w/ stable H/H on repeat and no further bleed. likely fromretching since pt reported vomiting at home w/ heavy etoh use. ?? upper abdominal pain ?alcoholic gastris vs biliary colic initial plan was to dc after psych clearance. however he developed acute RUQ pain which is episodic and tender to palpation and worsen w/ deep breath.?? LFTs WNLs RUQ US---No sonographic evidence of cholelithiasis or acute cholecystitis.?? cont PPI ? etoh use mostly beer 3-5 per day but it varies mtx, b1, FA ciwa monitor for withdrawal counselled to quit ?? smoker 1 ppd requested nicotine gum which has been ordered ?? # Diabetes - cont metformin ?? # HTN - resume amlodipine ?? # Pain - cont Gabapentin (gabapentin 400 mg oral capsule)?TAKE 1 CAPSULE BY MOUTH 3 (THREE) TIMES A DAY ? Vital Signs?? Temperature: 97.7 DegF (07/28/23 12:00:00) Temperature Route: Oral (07/28/23 12:00:00) Pulse Rate: 89 bpm (07/28/23 12:00:00) Respiratory Rate: 19 br/min (07/28/23 12:00:00) Systolic Blood Pressure:??155 mm Hg??High (07/28/23 12:00:00) Diastolic Blood Pressure:??96 mm Hg??High (07/28/23 12:00:00) Blood pressure sites: Arm, right (07/28/23 12:00:00) Mean Arterial Pressure: 109 mm Hg (07/28/23 00:33:00) Pulse Pressure: 59 mm Hg (07/28/23 12:00:00) Oxygen Saturation: 99 % (07/28/23 12:00:00) Mode of Delivery (Oxygen): Room air (07/28/23 12:00:00) Early Warning Score: 2 (07/28/23 12:53:03) ? Intake/Output? 07/25 10:01 07 07:00 0606 07:00 0605 07:00 06/04 07:00 ?? 07/27 13:56 07/27 13:56 07 06:59 0606 06:59 06 06:59 Intake ? 2180 ?0 ? 2180 ?0 ?0 Output ?0 ?0 ?0 ?0 ?0 Net Total ? 2180 ?0 ? 2180 ?0 ?0 ? Urine Count ?6 ?0 ?6 ?0 ?0 ? . Physical Exam General: Awake, not in??distress Head and neck: Atraumatic, no neck swelling Eye: no injection or jaundice, EOMI. Cardiac: RRR, no murmurs, gallops or rubs, no S3 or S4. Pulmonary: Normal breathing sounds bilaterally with good air entry with??no wheezing or??rhonchi Abdominal: No tenderness or rebound tenderness, normal BS, no HSM Skin: No rashes, jaundice or schritching johnson Extremities: No edema, no swelling or varicose veins Neuro: awake, alert oriented X3, no focal weakness. Psych: ??anxious, no active??SI?? Pending Results No Pending Results Follow-Up Appointments Added Follow Up ?Time Frame ?Comments Delia ACOSTA, Lamine Covington?1 week Post Discharge Care Discharge ?07/28/23 13:56:00 EDT Home Health Face to Face ^HomeHealthFTF Results Discharge Labs BLOOD BANK Blood Type A Positive ()?? 07/26/2023 10:36 Antibody Screen Negative ()?? 07/26/2023 10:36 ?? BLOOD COUNT & DIFF WBC 8.4 k/mm3 ()?? 07/26/2023 10:50 RBC 5.19 m/mm3 ()?? 07/26/2023 10:50 Hgb 14.6 Gm/dL ()?? 07/27/2023 06:48 Hct 47.2 % ()?? 07/27/2023 06:48 MCV 85.5 femtoliters ()?? 07/26/2023 10:50 MCH 27.6 pg ()?? 07/26/2023 10:50 MCHC 32.2 g/dL (Low)?? 07/26/2023 10:50 Platelet Count 265 k/mm3 ()?? 07/26/2023 10:50 RDW-SD 40.6 femtoliters ()?? 07/26/2023 10:50 MPV 10.0 femtoliters ()?? 07/26/2023 10:50 Nucleated RBC (Automated) 0.0 #/100 WBC'S ()?? 07/26/2023 10:50 Abs. NRBC 0.0 k/mm3 ()?? 07/26/2023 10:50 Abs. Neut 6.2 k/mm3 ()?? 07/26/2023 10:50 Abs. Lymph 1.4 k/mm3 ()?? 07/26/2023 10:50 Abs. [place] 0.6 k/mm3 ()?? 07/26/2023 10:50 Abs. Eo 0.1 k/mm3 ()?? 07/26/2023 10:50 Abs. Baso 0.0 k/mm3 ()?? 07/26/2023 10:50 Neut % 72.8 % ()?? 07/26/2023 10:50 Lymph % 16.9 % ()?? 07/26/2023 10:50 [place] % 7.6 % ()?? 07/26/2023 10:50 Eos % 1.7 % ()?? 07/26/2023 10:50 Baso % 0.5 % ()?? 07/26/2023 10:50 Imm Gran 0.5 % ()?? 07/26/2023 10:50 Abs. Imm Gran 0.0 k/mm3 ()?? 07/26/2023 10:50 ?? CHEM GENERAL Sodium 144 mmol/L ()?? 07/26/2023 10:50 Potassium 4.2 mmol/L ()?? 07/26/2023 10:50 Chloride 106 mmol/L ()?? 07/26/2023 10:50 Bicarbonate Level 26 mmol/L ()?? 07/26/2023 10:50 Anion Gap 12 ()?? 07/26/2023 10:50 Glucose Level 106 mg/dL (High)?? 07/26/2023 10:50 Glucose, POC 165 mg/dL (High)?? 07/26/2023 16:00 BUN 14 mg/dL ()?? 07/26/2023 10:50 Creatinine-Blood 0.98 mg/dL ()?? 07/26/2023 10:50 Estimated GFR Creatinine 103 ML/MIN/1.73 M2 ()?? 07/26/2023 10:50 Protein, Total 7.2 Gm/dL ()?? 07/27/2023 14:26 Albumin 4.5 Gm/dL ()?? 07/27/2023 14:26 Alkaline Phosphatase 59 units/L ()?? 07/27/2023 14:26 AST (SGOT) 26 units/L ()?? 07/27/2023 14:26 ALT (SGPT) 20 units/L ()?? 07/27/2023 14:26 Bilirubin, Total 0.3 mg/dL ()?? 07/27/2023 14:26 Bilirubin, Direct <0.2 mg/dL ()?? 07/27/2023 14:26 Bilirubin, Indirect Direct bilirubin is less than the measureable limit. Therefore, indirect mg/dL ()?? 07/27/2023 14:26 ?? COAG INR 1.0 ()?? 07/26/2023 10:50 Protime (PT) 10.6 seconds ()?? 07/26/2023 10:50 ?? TOXICOLOGY/TDM Ethanol, Serum or Plasma NONE DETECTED mg/dL ()?? 07/26/2023 10:50 Lusk Level 0.5 mmol/L (Low)?? 07/26/2023 17:15 Barbiturate Screen, Urine NONE DETECTED ()?? 07/26/2023 10:48 Cannabinoid Screen, Urine POSITIVE (Abnormal)?? 07/26/2023 10:48 Cocaine Metabolite Screen, Urine NONE DETECTED ()?? 07/26/2023 10:48 Benzodiazepine Screen, Urine NONE DETECTED ()?? 07/26/2023 10:48 Amphetamine Screen, Urine NONE DETECTED ()?? 07/26/2023 10:48 Opiate Screen, Urine NONE DETECTED ()?? 07/26/2023 10:48 ?? UA/URINALYSIS Appear/Color, Urine LIGHT YELLOW ()?? 07/27/2023 13:00 Clarity CLEAR ()?? 07/27/2023 13:00 Specific Campbell, Urine 1.017 ()?? 07/27/2023 13:00 pH, Urine 6.5 ()?? 07/27/2023 13:00 Albumin, Urine NEGATIVE ()?? 07/27/2023 13:00 Glucose, Urine NEGATIVE ()?? 07/27/2023 13:00 Ketones, Urine NEGATIVE ()?? 07/27/2023 13:00 Bilirubin, Urine NEGATIVE ()?? 07/27/2023 13:00 Hemoglobin, Urine NEGATIVE ()?? 07/27/2023 13:00 Nitrite, Urine NEGATIVE ()?? 07/27/2023 13:00 Leukocyte, Urine NEGATIVE ()?? 07/27/2023 13:00 Urobilinogen NORMAL mg/dL ()?? 07/27/2023 13:00 WBC's, Urine 1 /HPF ()?? 07/27/2023 13:00 RBC's, Urine NONE SEEN /HPF ()?? 07/27/2023 13:00 Squamous Epith <1 /HPF ()?? 07/27/2023 13:00 Mucus SLIGHT /LPF ()?? 07/27/2023 13:00 Culture Indication CULTURE NOT INDICATED ()?? 07/27/2023 13:00 ? URINE OTHER Malb/Creat Ratio 14.6 mg/Gm ()?? 07/27/2023 13:00 Urine Creat For Micro Alb 116.8 mg/dL ()?? 07/27/2023 13:00 Micro-Albumin 17.0 mg/L ()?? 07/27/2023 13:00 ? >40_ minutes spent on discharge * Magy Knox LPN: PERFORM Event Display: Patient Education/Instruction Authored Date: Inpatient Adult Discharge Instructions. [address] [address] Name: STEF JARRETT : 1990?? Visit: 07/26/2023 10:01?? Current Date: 07/28/2023 14:16 ?? Account: [id number]?? Inpatient Adult Discharge Instructions We would like [...] and their families. Surveys are administered by [email or web address] ?? If further treatment with your primary care physician or another doctor is recommended, it is important for you to keep the appointment. Call your primary care physician or return to the Emergency Department immediately if your condition worsens, fails to improve, or new symptoms develop. If you need to find a doctor, you can call [facility] [id number] Link for a referral at [phone] or toll free at [phone] or log in to [email or web address].. ?? [facility], in keeping with [facility] guidance, no longer requires face masks for staff, patientsor visitors in most situations. Similiar to time spent indoors at other locations, there is the chance that you were exposed to repiratory viruses during your time with us (such as flu or COVID-19). If you develop symptoms concerning for a viral respiratory infection, please seek testing (and treatment if indicated) from your medical provider or home test kit. ?? You can view and manage your care through the patient portal or by using a health care blanche of your choosing. [employer] is a website that allows you to securely view your medical information including your hospital discharge summary, office visit summaries, medications and follow-up visits. You can also request appointments, renew medications, and request access to your medical information using a health care blanche of your choosing, or just ask a question. You can enroll at [email or web address] or register during your next office visit. You have been discharged from [facility], Patient Care Unit: S1??. If you have any questions regarding these instructions, including results of studies pending, afteryou leave, please call us and we will be happy to assist you 12/09. [facility] Your Care Team Attending Physician Brian Islas Sr, MD?? Consulting Providers Brian Islas Sr, MD?? Discharging Providers Brian Islas Sr, MD Reason for Your Visit pt LENCHO from home Hx schizoeffective. Pt claimed neighbord angered him, pt endorsing desire to stabthem then himself?? Your Diagnosis General medical Tests Performed Below is a partial list of the tests performed during your hospitalization. You may have had other tests and procedures not included in this list. Please discuss all test results with your provider. Alcohol Level Amphetamine Urine Screen Barbiturate Urine Screen Benzodiazepine Urine Screen BUN Cannabinoid Urine Screen CBC w/ Differential Cocaine Urine Screen Creatinine Electrolytes Glucose Level GLUCOSE POC Hgb + Hct INR LFT's Lusk Level Opiate Screen Urine Type and Screen UA W/Reflex Culture & Renal URINARY MICROALBUMIN RUQ (US) No tests performed during this visit.?? Primary Care Provider Lamine Lin MD? Advance Directive Health Care Proxy on File No Patient refuses to discuss Discharge Vitals Temperature: 97.7 DegF Pulse Rate: 89 bpm Respiratory Rate: 19 br/min Systolic Blood Pressure:??155 mm Hg??High Diastolic Blood Pressure:??96 mm Hg??High Oxygen Saturation: 99 % Studies Pending All studies ordered during this hospital stay have been completed unless listed below. Please discuss all pending results with your provider listed above in these instructions. ?? No incomplete studies found?? What to do next Instructions From Your Doctor ?? Orders? 07/28/23 13:56:00 EDT?? Scheduled Follow-Up Appointments Monday 8:15 AM EDT ?? With: Lamine Lin MD Where: [facility] [address] [place] [address]- Status: Pending You Need to Schedule the Following Appointments Follow Up with??Lamine Lin MD When:??Within 1 week Where: ?? Discharge Medications LLUVERAS KOLBY, STEF :1990 Visit Date:07/26/2023 Medications: Please continue your medications until treatment is completed or stopped by your provider. Medications not listed below should be discontinued. Discuss any questions related to medications with your provider. What How Much When Instructions Next Dose Unchanged Amlodipine (amLODIPine 10 mg oral tablet) 1 tab(s) Oral Daily Duration: 90 Days 07/28 9AM Unchanged Benztropine (benztropine 1 mg oral tablet) TAKE 1 TABLET BY MOUTH two (2) times a day ?? 07/27 9PM Unchanged Diclofenac Topical (diclofenac 1% topical gel) 1 blanche Topically 4 times a day 2g per application on elbow, wrist or hand; 4g per application on knee ankle or foot. ?? 07/27 3PM Unchanged Docusate (docusate sodium 100 mg oral capsule) 1 capsule Oral Daily 07/28 9AM Unchanged Durable Medical Equipment (Alcohol Pads) See instructions Please dispense 1 box of alcohol pads ?? Unchanged Durable Medical Equipment (Freestyle Lite Lancets) See instructions TID AC and qHS, E11.65 ?? Unchanged Durable Medical Equipment (Freestyle Lite Test Strips) See instructions Check POC daily and if symptoms of sweats, dizziness, confusion, DX E11.9 ?? Unchanged Ferrous Gluconate (ferrous gluconate 324 mg oral tablet) 1 tab(s) Oral Daily 07/28 9AM Unchanged Fluticasone Nasal (Flonase 50 mcg/ inh nasal spray) 2 spray(s) Nares, Both Daily in the morning 07/28 9AM Unchanged Folic Acid (folic acid 1 mg oral tablet) 1 tab(s) Oral Daily 07/28 9AM Unchanged Gabapentin (gabapentin 400 mg oral capsule) TAKE 1 CAPSULE BY MOUTH 3 (THREE) TIMES A DAY ?? 07/27 9PM Unchanged Haloperidol (haloperidol 5 mg oral tablet) TAKE 3 TABLETS BY MOUTH AT BEDTIME AND MAY TAKE 1/ 2 TAB ONCE DAILY NEEDED FOR AGITATION ?? 07/27 9PM Unchanged Lusk (lithium 600 mg oral capsule) TAKE 1 CAPSULE BY MOUTH two (2) times a day ?? 07/27 9PM Unchanged Loratadine (loratadine 10 mg oral tablet) 1 tab(s) Oral Daily 07/28 9AM Unchanged Metformin (metFORMIN 500 mg oral tablet, extended release) 2 tab(s) Oral Twice a day 1 tab daily x 1 week then 1 tab BID x 1 week then 2 tabs BID ?? 07/27 9PM Unchanged Miscellaneous Rx (FreeStyle Lite Strips) See instructions USE TO TEST FINGER STICK BLOOD SUGAR ONCE DAILY fasting ?? Unchanged Miscellaneous Rx (Inject Ease Lancets 28 gauge) See instructions USE TO TEST FINGER STICK BLOOD SUGAR ONCE DAILY ?? Unchanged Multivitamin (multivitamin Multiple Vitamins oral tablet) 1 tab(s) Oral Daily 07/28 9AM Unchanged Pantoprazole (pantoprazole 40 mg oral delayed release tablet) 1 tab(s) Oral Daily Duration: 90 Days take 30 mintues before foro or dirink, first thing in the morning if unable, the jsut take at anytime ?? 07/27 7AM Unchanged Prazosin (prazosin 5 mg oral capsule) TAKE 1 CAPSULE BY MOUTH ONCE DAILY AT BEDTIME ?? 07/27 9PM Unchanged Sertraline (sertraline 100 mg oral tablet) TAKE 1 TABLET BY MOUTH ONCE DAILY ?? 07/28 9AM Unchanged Trazodone (traZODone 150 mg oral tablet) TAKE 1 TABLET BY MOUTH ONCE DAILY AT BEDTIME ?? 07/27 9PM Prescription Given During Visit No new medications prescribed at time of discharge.?? Laboratory Results Below is a partial list of the most recent Laboratory test results done prior to this discharge. You may have had other tests and procedures not included in this list. Please discuss all test resultswith your provider. Alcohol Level (07/26/2023) ???Ethanol, Serum or Plasma - NONE DETECTED Amphetamine Urine Screen (07/26/2023) ???Amphetamine Screen, Urine - NONE DETECTED Barbiturate Urine Screen (07/26/2023) ???Barbiturate Screen, Urine - NONE DETECTED Benzodiazepine Urine Screen (07/26/2023) ???Benzodiazepine Screen, Urine - NONE DETECTED BUN (07/26/2023) ???BUN - 14 mg/dL Cannabinoid Urine Screen (07/26/2023) ???Cannabinoid Screen, Urine - POSITIVE CBC w/ Differential (07/26/2023) ???WBC - 8.4 k/mm3???RBC - 5.19 m/mm3???Hgb - 14.3 Gm/dL???Hct - 44.4 %???MCV - 85.5 femtoliters???MCH - 27.6 pg???MCHC - 32.2 g/dL???Platelet Count - 265 k/mm3???RDW-SD - 40.6 femtoliters???MPV - 10.0 femtoliters???Nucleated RBC (Automated) - 0.0 #/100 WBC'S???Abs. NRBC - 0.0 k/mm3???Abs. Neut - 6.2 k/mm3???Abs. Lymph - 1.4 k/mm3???Abs. [place] - 0.6 k/mm3???Abs. Eo - 0.1 k/mm3???Abs. Baso - 0.0 k/mm3???Neut % - 72.8 %???Lymph % - 16.9 %???[place] % - 7.6 %???Eos % - 1.7 %???Baso % - 0.5 %???Imm Gran - 0.5 %???Abs. Imm Gran - 0.0 k/mm3 Cocaine Urine Screen (07/26/2023) ???Cocaine Metabolite Screen, Urine - NONE DETECTED Creatinine (07/26/2023) ???Creatinine-Blood - 0.98 mg/dL???Estimated GFR Creatinine - 103 ML/MIN/1.73 M2 Electrolytes (07/26/2023) ???Sodium - 144 mmol/L???Potassium - 4.2 mmol/L???Chloride - 106 mmol/L???Bicarbonate Level - 26 mmol/L???Anion Gap - 12 Glucose Level (07/26/2023) ???Glucose Level - 106 mg/dL GLUCOSE POC (07/26/2023) ???Glucose, POC - 165 mg/dL Hgb + Hct (07/27/2023) ???Hgb - 14.6 Gm/dL???Hct - 47.2 % INR (07/26/2023) ???INR - 1.0???Protime (PT) - 10.6 seconds LFT's (07/27/2023) ???Protein, Total - 7.2 Gm/dL???Albumin - 4.5 Gm/dL???Alkaline Phosphatase - 59 units/L???AST (SGOT) - 26 units/L? ?ALT (SGPT) - 20 units/L? ?Bilirubin, Total - 0.3 mg/dL? ?Bilirubin, Direct - <0.2 mg/dL???Bilirubin, Indirect - Direct bilirubin is less than the measureable limit. Therefore, indirect Lusk Level (07/26/2023) ???Lusk Level - 0.5 mmol/L Opiate Screen Urine (07/26/2023) ???Opiate Screen, Urine - NONE DETECTED Type and Screen (07/26/2023) ???Blood Type - A Positive???Antibody Screen - Negative UA W/Reflex Culture & Renal (07/27/2023) ???Appear/Color, Urine - LIGHT YELLOW???Clarity - CLEAR???Specific Campbell, Urine - 1.017???pH, Urine - 6.5???Albumin, Urine - NEGATIVE???Glucose, Urine - NEGATIVE???Ketones, Urine - NEGATIVE???Bilirubin, Urine - NEGATIVE???Hemoglobin, Urine - NEGATIVE???Nitrite, Urine - NEGATIVE???Leukocyte, Urine- NEGATIVE???Urobilinogen - NORMAL???WBC's, Urine - 1 /HPF???RBC's, Urine - NONE SEEN???Squamous Epith - <1 /HPF? ?Mucus - SLIGHT? ?Culture Indication - CULTURE NOT INDICATED URINARY MICROALBUMIN (07/27/2023) ???Malb/Creat Ratio - 14.6 mg/Gm???Urine Creat For Micro Alb - 116.8 mg/dL???Micro-Albumin - 17.0 mg/L Allergies (NKA means No Known Allergies) Dust Milk Products??(Nausea and vomiting) cloNIDine??(confusion) lisinopril??(dry cough) Problems Active Problems??(19) BHN/CCA/One Care/Director Software Development-Tia Jarrett [phone]/Health detention, active care coordination?? Diabetes mellitus?? Esophageal reflux (GERD)?? Gastric polypremoved 2020, EGD next due 2025?? Gynecomastia?? Hypercholesterolemia?? Hypertension?? Keratoconus?? Knee pain, bilateral?? Morbid obesity with BMI of 45.0-49.9, adult?? NAFLD (nonalcoholic fatty liver disease)?? Obstructive sleep apnea, Complex sleep apnea?? Prediabetes (vs normal: had labs showing Both -2023)?? Schizoaffective Disorder, Unspecified?? Severe obesity?? Sleep related hypoxia?? Treatment-emergent central sleep apnea?? vomiting s/p meals?? Wenckebach?? Education Materials Below is the list of Educational Leaflet Providered with your Discharge Instructions. Valuables and Belongings I fully understand and agree that [facility] accepts no responsibility for all my personal [...] and belongings home. ?? Safe envelope number: [id number] Review of Valuable and Belonging List: With patient Disposition of Belongings: Valuables Locked Possessions released to: Belongings in locker #6 Date for Pt to Sign Valuables/Belongings: 07/27/23 16:24:00 ?? Other Discharge Information ? Case Management Discharge Plan?? Discharge Plan?? Discharge Rx Program: Discharge Prescription Program ?? Pulmonary Rehab Status?? Pulmonary Rehab Discharge Status?? [...] are strongly encouraged to quit. Please call [facility] N3TWORK Link at [phone] or [phone] ([phone]) or log in to [email or web address] for referrals to smoking cessation programs. ?? 460 Suicide & Crisis Lifeline is available 12/09 if you or someone you know needs to find a reason to keep living. By calling 354 you'll be connected to a skilled, trained counselor at a crisis center in your area. INPATIENT DISCHARGE INSTRUCTIONS SIGNATURE PAGE STEF ORTIZ Location:[facility] Registration Date and Time:07/26/2023 10:01 EDT Primary Care Physician: Delia ACOSTA, Lamine Covington, Attending Physician: Janel Elam MD, Brian Gilbert, I STEF ORTIZ, have received the above patient education materials/instructions and have verbalized understanding. If ambulance or transport services are being used I further acknowledge being given a choice of service. ?? If you need to contact me, please call me at this number: . Patient/Head Of Digital Advertising & Integration Name: Patient/Head Of Digital Advertising & Integration Signature: Relationship to Patient: Witness Name/Signature: Date: * Brian Islas Sr, MD A: PERFORM, SIGN, VERIFY Event Display: Patient Education Handout Authored Date: Patient Care team information Care Team Personnel Name: Ela Beltrán RN Position: [facility] AMB Nurse Member Role: Primary Care Nurse Name: Michelle Hernandez RN Position: [facility] RN Member Role: Primary Care Nurse Name: Alaina Gillette RN Position: [facility] RN Member Role: Primary Care Nurse Name: Kristyn Tapia RN Position: [facility] SN RN Member Role: Primary Care Nurse Name: Seferino STOCK TRADERLorna Position: [facility] Associate Professional Member Role: Primary Care Nurse Name: Venus Jaramillo RN Position: [facility] RN Member Role: Primary Care Nurse Name: Flor Donnelly RN Position: [facility] RN Member Role: Primary Care Nurse Name: Ruiz Matson RN Position: [facility] RN Member Role: Primary Care Nurse Name: Belle Ames RN Position: [facility] RN Member Role: Primary Care Nurse Name: Alex Rios RN Position: [facility] RN Member Role: Primary Care Nurse Name: Daniel Hernandez III, RN Position: [facility] RN Member Role: Primary Care Nurse Name: Crow Lee RN Position: [facility] RN Member Role: Primary Care Nurse Name: Jordi Carter MD Position: [facility] Renal MD Member Role: Lifetime Consulting Physician Address: Address: [address] [place] [address] [address] [facility], [place] [address]- Name: Loren Hamlin RN Position: [facility] RN Member Role: Primary Care Nurse Name: Kenzie Martínez RN, [place] Position: [facility] RN Member Role: Primary Care Nurse Name: Lamine Lin MD Position: [facility] Physician - Primary Care Member Role: PCP Address: Address: [address] [facility] [place] [address]- Name: Rose Abraham RN Position: [facility] Hospital It Application Administrator Member Role: Primary Care Nurse Name: Vinod Botello MD Position: [facility] Physician - Behavioral Health Member Role: Lifetime Consulting Physician Address: Address: [address] [place] [address]- Care Team Related Persons Name: DONAVON ALCALA Name: KATHLEEN JACQUES Address: home [address] [place] [address] Name: VIRGIL PARKS Address: home [address] [place] [address] Name: MICHAELA MONTENEGRO Address: home UNKNOWN Name: MIGUEL PUENTES Address: home [address] [place] [address] Name: CRISTINA TABARES Address: home UNKNOWN
--- OUTSIDE RECORDS SUMMARY | 2023-09-06 23:45 | XMS_ITS | Continuity of Care Document ---
Author Organization [facility] Address [address] [place] [address]- Care Team Providers Care Cellophane Worker Name Role Phone Delia ACOSTA, Lamine Covington Primary Care Physician Encounter [facility] Date(s): 05/01/23 - 06/10/23 [facility] [address] [place], [place] [phone] Attending Physician: Not on Staff, Attending MD [...] virus vaccine, inactivated 2 12/30/10 Gi annia [id number] 12y+ bivalent booster vax 02/07/22 Given SARS-CoV-2 [...] 05/05/23 16:43:00 EDT, Route to Pharmacy Electronically, [place], [place] - [id number], Partial fill upon patient request if the [...] 4 Refills, Maintenance, 02/23/23 13:53:00 EST, Gel, [place], [place] - [id number], Partial fill... Start Date: 02/23/23 Status: Ordered docusate sodium 100 mg oral capsule 1 capsule, By Mouth, Daily, # 30 each, 1 Refills, Maintenance, 06/06/22 16:49:00 EDT, [facility] [id number], 178, cm, 06/06/22 16:31:00 EDT, Height, 101.4, kg, 01/12/22 14:14:00 EST, Dry Weight Start Date: 06/06/22 Status: Ordered ferrous gluconate 324 mg oral tablet 1 tablet = 324 mg, By Mouth, Daily, # 100 tablet, 0 Refills, Maintenance, 05/06/23 10:33:00 EDT, Tablet, [place], [place] - [id number], Partial fill upon patient request if the prescription is for a schedule II opioid drug., 178, cm,... Start Date: 05/06/23 Status: Ordered Flonase 50 mcg/inh nasal spray 2 sprays = 100 mcg, Nares, Both, Daily in AM, # 3 each, 3 Refills, Maintenance, 02/23/23 13:39:00 EST, [place], [place], [place] - [id number], Partial fill upon patient request if the prescription is for a schedule II opioid drug., 2 sp... Start Date: 02/23/23 Status: Ordered folic acid 1 mg oral tablet 1, tablet, By Mouth, Daily, # 30 tablet, Refills 5, Tot. Refills 5, Maintenance, 06/06/22 16:49:00 EDT, Route to Pharmacy Electronically, [place], [place] - [id number], 178, cm, 06/06/22 16:31:00 EDT, Height, 101.4, [...] 02/23/23 13:39:00 EST, Route to Pharmacy Electronically, [facility], [place] - [id number], 178, cm, 02/23/23 13:19:00 EST, Height, 114, kg, 01/08/23... Start Date: 02/23/23 Status: Ordered metFORMIN 500 mg oral tablet, extended release 2 tablet = 1,000 mg, By Mouth, 2 times a day, 1 tab daily x 1 week then 1 tab BID x 1 week then 2 tabs BID, # 120 tablet, 4 Refills, Maintenance, 02/23/23 13:34:00 EST, ER Tablet, [facility], [place] - [id number], Partial fill upon patie... Start Date: 02/23/23 Status: Ordered multivitamin Multiple Vitamins oral tablet 1 tablet, By Mouth, Daily, # 90 tablet, 3 Refills, Maintenance, 05/06/23 10:33:00 EDT, Tablet, [facility], [place] - [id number], Partial fill upon patient request if the [...] Active Knee pain, bilateral Confirmed Active BHN/CCA/One Care/Rag Washer-Tia Jarrett [phone]/Health nursing home, active care coordination Confirmed Active Severe [...] Team Personnel Name: Ela Beltrán RN Position: [facility] Nurse Member Role: Primary Care Nurse Name: Alaina Gillette RN Position: [facility] RN Member Role: Primary Care Nurse Name: Kristyn Tapia RN Position: [facility] RN Member Role: Primary Care Nurse Name: Lorna Gentile NP Position: [facility] Associate Professional Member Role: Primary Care Nurse Address: Address: [address] [place] [address] Name: Venus Jaramillo RN Position: [facility] RN Member Role: Primary Care Nurse Name: Flor Donnelly RN Position: [facility] RN Member Role: Primary Care Nurse Name: Ruiz Matson RN Position: [facility] RN Member Role: Primary Care Nurse Name: Belle Ames RN Position: [facility] RN Member Role: Primary Care Nurse Name: Alex Rios RN Position: [facility] RN Member Role: Primary Care Nurse Name: Daniel Hernandez III, RN Position: [facility] RN Member Role: Primary Care Nurse Name: Jordi Carter MD Position: [facility] Renal MD Member Role: Lifetime Consulting Physician Address: Address: [address] [facility] [address] [facility] [place] [address]- [place] Name: Loren Hamlin RN Position: [facility] RN Member Role: Primary Care Nurse Name: Malia Wise RN Position: [facility] RN Member Role: Primary Care Nurse Name: Lamine Lin MD Position: [facility] Physician - Primary Care Member Role: PCP Address: Address: [address] [facility] [place] [address]- [place] Name: Rose Abraham RN Position: [facility] Hospital Coupon And Bond Collection Clerk Member Role: Primary Care Nurse Name: Vinod Botello MD Position: [facility] Physician - Behavioral Health Member Role: Lifetime Consulting Physician Address: Address: [address] [place] [address]- [place] Care Team Related Persons Name: MALIA HARRIS Name: KATHLEEN JACQUES Address: home [address] [place] [address] Name: VIRGIL PARKS Address: home [address] [place] [address] Name: MICHAELA MONTENEGRO Address: home UNKNOWN Name: MIGUEL PUENTES Address: home [address] [place] [address]
--- OUTSIDE RECORDS SUMMARY | 2023-09-06 23:45 | XMS_ITS | Continuity of Care Document ---
Author Organization [facility] Address [address] [place] [address]- Care Team Providers Care Potato Chip Processing Supervisor Name Role Phone Delia ACOSTA, Lamine Covington Primary Care Physician Encounter [facility] Date(s): 02/25/23 - 03/27/23 [facility] [address] [place] [address]- Allergies, Adverse Reactions, Alerts Substance Reaction Severity [...] virus vaccine, inactivated 2 12/30/10 Gi annia [id number] 12y+ bivalent booster vax 02/07/22 Given SARS-CoV-2 [...] 4 Refills, Maintenance, 02/23/23 13:37:00 EST, Tablet, [facility] [id number], discontinue amlodipine 2.5 mg daily. replace with [...] 4 Refills, Maintenance, 02/23/23 13:53:00 EST, Gel, [facility] [id number], Partial fill... Start Date: 02/23/23 Status: Ordered docusate sodium 100 mg oral capsule 1 capsule, By Mouth, Daily, # 30 each, 1 Refills, Maintenance, 06/06/22 16:49:00 EDT, [facility] [id number], 178, cm, 06/06/22 16:31:00 EDT, Height, 101.4, kg, 01/12/22 14:14:00 EST, Dry Weight Start Date: 06/06/22 Status: Ordered Flonase 50 mcg/inh nasal spray 2 sprays = 100 mcg, Nares, Both, Daily in AM, # 3 each, 3 Refills, Maintenance, 02/23/23 13:39:00 EST, [place], [facility] [id number], Partial fill upon patient request if the prescription is for a schedule II opioid drug., 2 sp... Start Date: 02/23/23 Status: Ordered folic acid 1 mg oral tablet 1, tablet, By Mouth, Daily, # 30 tablet, Refills 5, Tot. Refills 5, Maintenance, 06/06/22 16:49:00 EDT, Route to Pharmacy Electronically, [facility] [place] - [id number], 178, cm, 06/06/22 16:31:00 EDT, Height, 101.4, [...] 02/23/23 13:39:00 EST, Route to Pharmacy Electronically, [facility], [place] - [id number], 178, cm, 02/23/23 13:19:00 EST, Height, 114, kg, 01/08/23... Start Date: 02/23/23 Status: Ordered metFORMIN 500 mg oral tablet, extended release 2 tablet = 1,000 mg, By Mouth, 2 times a day, 1 tab daily x 1 week then 1 tab BID x 1 week then 2 tabs BID, # 120 tablet, 4 Refills, Maintenance, 02/23/23 13:34:00 EST, ER Tablet, [facility], [facility] [id number], Partial fill upon patie... Start Date: 02/23/23 [...] Confirmed Active Knee pain, bilateral Confirmed Active BHN/CCA/Precipitator Operator-Tia Jarrett [phone]/Health prison, active care coordination Confirmed Active Severe [...] Team Personnel Name: Ela Beltrán RN Position: [facility] AMB Nurse Member Role: Primary Care Nurse Name: Alaina Gillette RN Position: [facility] RN Member Role: Primary Care Nurse Name: Kristyn Tapia RN Position: [facility] SN RN Member Role: Primary Care Nurse Name: Lorna Gentile NP Position: [facility] Associate Professional Member Role: Primary Care Nurse Address: Address: [address] [place] [address]- Name: Venus Jaramillo RN Position: [facility] RN Member Role: Primary Care Nurse Name: Flor Donnelly RN Position: [facility] RN Member Role: Primary Care Nurse Name: Ruiz Matson RN Position: [facility] RN Member Role: Primary Care Nurse Name: Belle Ames RN Position: [facility] RN Member Role: Primary Care Nurse Name: Alex Rios RN Position: S RN Member Role: Primary Care Nurse Name: Daniel Hernandez III, RN Position: [facility] RN Member Role: Primary Care Nurse Name: Jordi Carter MD Position: [facility] Renal MD Member Role: Lifetime Consulting Physician Address: Address: [address] [place] [address] [address] [facility] [place] [address]- [place] Name: Loren Hamlin RN Position: S RN Member Role: Primary Care Nurse Name: Malia Wise RN Position: [facility] RN Member Role: Primary Care Nurse Name: Lamine Lin MD Position: [facility] Physician - Primary Care Member Role: PCP Address: Address: [address] [facility] [place] [address]- Name: Rose Abraham RN Position: [facility] Hospital Hydrometer Tester Member Role: Primary Care Nurse Name: Vinod Botello MD Position: [facility] Physician - Behavioral Health Member Role: Lifetime Consulting Physician Address: Address: [address] [place] [address]- Care Team Related Persons Name: MALIA HARRIS Name: KATHLEEN JACQUES Address: home [address] [place] [address] Name: VIRGIL PARKS Address: home [address] [place] [address] Name: MICHAELA MONTENEGRO Address: home UNKNOWN Name: MIGUEL PUENTES Address: home [address] [place] [address]
--- OUTSIDE RECORDS SUMMARY | 2023-09-06 23:46 | XMS_ITS | Continuity of Care Document ---
Author Organization [facility] Address [address] [place] [address]- Care Team Providers Care Motorized Squad Captain Name Role Phone Delia ACOSTA, Lamine Covington Primary Care Physician [phone] Encounter [facility] Date(s): 07/10/23 - 08/09/23 [facility] [address] [place], [place] [phone] Allergies, Adverse Reactions, Alerts Substance Reaction Severity [...] virus vaccine, inactivated 2 12/30/10 Gi annia [id number] 12y+ bivalent booster vax 02/07/22 Given SARS-CoV-2 [...] 07/14/23 8:21:00 EDT, Route to Pharmacy Electronically, [facility] [place] - [id number], 178, cm, 07/14/23 8:09:00 EDT, Height, 150, [...] 4 Refills, Maintenance, 02/23/23 13:53:00 EST, Gel, [facility] [place] - [id number], Partial fill... Start Date: 02/23/23 Status: Ordered docusate sodium 100 mg oral capsule 1 capsule, By Mouth, Daily, # 30 each, 1 Refills, Maintenance, 06/06/22 16:49:00 EDT, [facility] [place] - [id number], 178, cm, 06/06/22 16:31:00 EDT, Height, 101.4, kg, 01/12/22 14:14:00 EST, Dry Weight Start Date: 06/06/22 Status: Ordered ferrous gluconate 324 mg oral tablet 1 tablet = 324 mg, By Mouth, Daily, # 100 tablet, 0 Refills, Maintenance, 05/06/23 10:33:00 EDT, Tablet, [facility] [place] - [id number], Partial fill upon patient request if the prescription is for a schedule II opioid drug., 178, cm,... Start Date: 05/06/23 Status: Ordered Flonase 50 mcg/inh nasal spray 2 sprays = 100 mcg, Nares, Both, Daily in AM, # 3 each, 3 Refills, Maintenance, 02/23/23 13:39:00 EST, [place], [facility] [place] - [id number], Partial fill upon patient request if the prescription is for a schedule II opioid drug., 2 sp... Start Date: 02/23/23 Status: Ordered folic acid 1 mg oral tablet 1, tablet, By Mouth, Daily, # 30 tablet, Refills 5, Tot. Refills 5, Maintenance, 06/06/22 16:49:00 EDT, Route to Pharmacy Electronically, [facility], [place] - [id number], 178, cm, 06/06/22 16:31:00 EDT, Height, 101.4, [...] 02/23/23 13:39:00 EST, Route to Pharmacy Electronically, [facility] [id number], 178, cm, 02/23/23 13:19:00 EST, Height, 114, kg, 01/08/23... Start Date: 02/23/23 Status: Ordered metFORMIN 500 mg oral tablet, extended release 2 tablet = 1,000 mg, By Mouth, 2 times a day, 1 tab daily x 1 week then 1 tab BID x 1 week then 2 tabs BID, # 120 tablet, 4 Refills, Maintenance, 02/23/23 13:34:00 EST, ER Tablet, [place], [place] - [id number], Partial fill upon patie... Start Date: 02/23/23 Status: Ordered multivitamin Multiple Vitamins oral tablet 1 tablet, By Mouth, Daily, # 90 tablet, 3 Refills, Maintenance, 05/06/23 10:33:00 EDT, Tablet, [facility] [id number], Partial fill upon patient request if the [...] Active Knee pain, bilateral Confirmed Active BHN/CCA/One Care/Integrated Logistics Operations Manager-Tia Jarrett [phone]/[facility], active care coordination Confirmed Active Prediabetes (vs normal: had labs showing Both ) Confirmed Active Severe obesity Confirmed Active Treatment-emergent central sleep apnea Confirmed Active 1On EGD in 03/2020. Repeat EGD in 5 yrs. [address] [facility] eye note 3Impression: 1. Mildly enlarged [...] Care Nurse Name: Michelle Hernandez RN Position: [facility] RN Member Role: Primary Care Nurse Name: Alaina Gillette RN Position: [facility] RN Member Role: Primary Care Nurse Name: Kristyn Tapia RN Position: [facility] SN RN Member Role: Primary Care Nurse Name: Seferino CHANGE MANAGEMENT MANAGERLorna Position: [facility] Associate Professional Member Role: [...] Care Nurse Name: Alex Rios RN Position: [facility] RN Member Role: Primary Care Nurse Name: Daniel Hernandez III, RN Position: [facility] RN Member Role: Primary Care Nurse Name: Crow Lee RN Position: [facility] RN Member Role: Primary Care Nurse Name: Jordi Carter MD Position: [facility] Renal MD Member Role: Lifetime Consulting Physician Address: Address: [address] [facility] [place] [address]- Name: Loren Hamlin RN Position: [facility] RN Member Role: Primary Care Nurse Name: Enid Wise RN Position: [facility] RN Member Role: Primary Care Nurse Name: Lamine Lin MD Position: [facility] Physician - Primary Care Member Role: PCP Address: Address: [address] [place] [address]- [place] Name: Rose Abraham RN Position: [facility] Hospital Top Frame Fitter Member Role: Primary Care Nurse Name: Vinod Botello MD Position: [facility] Physician - Behavioral Health Member Role: Lifetime Consulting Physician Address: Address: [address] [place] [address]- Care Team Related Persons Name: DONAVON ALCALA Name: GAURANGCarlosKATHLEEN Address: home [address] [place] [address] Name: VIRGIL PARKS Address: home [address] [place] [address] Name: MICHAELA MONTENEGRO Address: home UNKNOWN Name: MIGUEL PUENTES Address: home [address] [place] [address] Name: CRISTINA TABARES Address: home UNKNOWN
--- OUTSIDE RECORDS SUMMARY | 2023-09-06 23:46 | XMS_ITS | Continuity of Care Document ---
Author Organization [facility] Address [address] [place] [address]- Care Team Providers Care Master Black Belt Name Role Phone Delia ACOSTA, Lamine Covington Primary Care Physician Encounter [facility] Date(s): 04/08/23 - 07/05/23 [facility] [address] [place], [place] [phone] Attending Physician: Lamine Lin MD Admitting Physician: [...] virus vaccine, inactivated 2 12/30/10 Gi annia [id number] 12y+ bivalent booster vax 02/07/22 Given SARS-CoV-2 [...] 05/05/23 16:43:00 EDT, Route to Pharmacy Electronically, [facility] [id number], Partial fill upon patient request if the [...] 4 Refills, Maintenance, 02/23/23 13:53:00 EST, Gel, [place], [place] - [id number], Partial fill... Start Date: 02/23/23 Status: Ordered docusate sodium 100 mg oral capsule 1 capsule, By Mouth, Daily, # 30 each, 1 Refills, Maintenance, 06/06/22 16:49:00 EDT, [facility] [id number], 178, cm, 06/06/22 16:31:00 EDT, Height, 101.4, kg, 01/12/22 14:14:00 EST, Dry Weight Start Date: 06/06/22 Status: Ordered ferrous gluconate 324 mg oral tablet 1 tablet = 324 mg, By Mouth, Daily, # 100 tablet, 0 Refills, Maintenance, 05/06/23 10:33:00 EDT, Tablet, [place], [place] - [id number], Partial fill upon patient request if the prescription is for a schedule II opioid drug., 178, cm,... Start Date: 05/06/23 Status: Ordered Flonase 50 mcg/inh nasal spray 2 sprays = 100 mcg, Nares, Both, Daily in AM, # 3 each, 3 Refills, Maintenance, 02/23/23 13:39:00 EST, [place], [place], [place] - [id number], Partial fill upon patient request if the prescription is for a schedule II opioid drug., 2 sp... Start Date: 02/23/23 Status: Ordered folic acid 1 mg oral tablet 1, tablet, By Mouth, Daily, # 30 tablet, Refills 5, Tot. Refills 5, Maintenance, 06/06/22 16:49:00 EDT, Route to Pharmacy Electronically, [place], [place] - [id number], 178, cm, 06/06/22 16:31:00 EDT, Height, 101.4, [...] 02/23/23 13:39:00 EST, Route to Pharmacy Electronically, [facility], [place] - [id number], 178, cm, 02/23/23 13:19:00 EST, Height, 114, kg, 01/08/23... Start Date: 02/23/23 Status: Ordered metFORMIN 500 mg oral tablet, extended release 2 tablet = 1,000 mg, By Mouth, 2 times a day, 1 tab daily x 1 week then 1 tab BID x 1 week then 2 tabs BID, # 120 tablet, 4 Refills, Maintenance, 02/23/23 13:34:00 EST, ER Tablet, [facility], [place] - [id number], Partial fill upon patie... Start Date: 02/23/23 Status: Ordered multivitamin Multiple Vitamins oral tablet 1 tablet, By Mouth, Daily, # 90 tablet, 3 Refills, Maintenance, 05/06/23 10:33:00 EDT, Tablet, [facility], [place] - [id number], Partial fill upon patient request if the [...] Maintenance, Dx: Sleep apnea G47.33 duration: lifetime, 04/14/23 16:30:00 EDT, Supply Start Date: 06/03/22 Status: [...] Active Knee pain, bilateral Confirmed Active BHN/CCA/One Care/Cashier Checker-Tia Kolby [phone]/Health long-term, active care coordination Confirmed Active Severe [...] Tapia RN Position: [facility] RN Member Role: Primary Care Nurse Name: Lorna Gentile NP Position: [facility] Associate Professional Member Role: Primary Care Nurse Name: Venus Jaramillo RN [facility] [place] [address]- [place] Name: Loren Hamlin RN Position: [facility] RN Member Role: Primary Care Nurse Name: Kenzie Martínez RN, [place] Position: [facility] RN Member Role: Primary Care Nurse Name: Lamine Lin MD Position: [facility] Physician - Primary Care Member Role: PCP Address: Address: [address] [place] [address]- [place] Name: Rose Abraham RN Position: [facility] Hospital Senior It Architect Member Role: Primary Care Nurse Name: Vinod Botello MD Position: [facility] Physician - Behavioral Health Member Role: Lifetime Consulting Physician Address: Address: [address] [place] [address]- [place] Care Team Related Persons Name: DONAVON ALCALA Name: KATHLEEN JACQUES Address: home [address] [place] [address] Name: VIRGIL PARKS Address: home [address] [place] [address] Name: MICHAELA MONTENEGRO Address: home UNKNOWN Name: MIGUEL PUENTES Address: home [address] [place] [address]
--- OUTSIDE RECORDS SUMMARY | 2023-09-06 23:47 | XMS_ITS ---
Author Organization [facility] Address [address] [place] [address] Care Team Providers Care Deputy Sheriff Generalist/Bailiff Name Role Phone Lamine Lin Primary Care Provider Unavailabl e Clinical, Operations Unavailable Unavailable ALLERGIES Allergen (clinical drug ingredient) Drug/Non Drug Allergy documented on EMR Reaction Allergy Type Onset Date Status lisinopril Lisinopril Unknown Drug Allergy Activ e clonidine Clonidine Unknown Drug Allergy Active Milk-related Compounds Unknown Drug Allergy Active REASON FOR VISIT Hospital discharge Med Rec MEDICATIONS Medication SIG (Take, Route, Frequency, Duration) Notes Start Date End Date Status Multivitamin - 1 tablet Orally Once a day Active Colace 100 MG 2 capsules Orally Tw ice a day Unknown Pantoprazole Sodium 40 MG 1 tablet Orall y Once a day Active metFORMIN HCl ER 500 MG 1 tablet with ev ening meal Orally Once a day Active Loratadine 10 MG 1 tablet Orally Once a day as needed Active Benztropine Mesylate 1 MG 1 tablet Orall y twice a day Active traZODone HCl 50 MG 1 tablet at bedtime as needed Orally Once a day Unknown Prazosin HCl 2 MG 1 capsule at bedtime Orally Once a day Active Gabapentin 400 MG 1 tablet Orally Thre e times a day Active amLODIPine Besylate 5 MG 2 tablets Orall y Once a day Active Fluticasone Propionate 50 MCG/ACT 1 spray in each nostril Nasally Once a day Active Zoloft 100 MG 1 tablet Orally Once a day Active Haloperidol 5 MG 3 tablets Orally at bedtime Unknown Haloperidol 0.5 MG take 2.5mg Orally On ce a day Unknown Losartan Potassium 25 MG 1 tablet Orally Once a day Unknown Capsaicin 0.025 % as directed Externally Unknown [place] Carbonate 300 MG as directed Ora lly as directed Active hydrOXYzine HCl 25 MG 1 tablet Orally tw ice a day as needed for anxiety Unknow n Artificial Tear Solution - as directed Ophthalmic Unknown Ferrous Gluconate 324 (38 Fe) MG 1 tablet Orally daily Active Haldol Decanoate 100 MG/ML 1 mL Intramuscular Active Chlorthalidone 25 MG 0.5 tablet in the m orning with food Orally Once a day Unknown Encounters Encounter Location Date Provider Diagnosis [facility] ([facility]) [address] [place] [id number] 05/05/2023 Operations Clinical PLAN OF TREATMENT No Information
--- OUTSIDE RECORDS SUMMARY | 2023-09-06 23:47 | XMS_ITS | Continuity of Care Document ---
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 Address: [address] [facility] [place] [address]- [place] Name: Rose Abraham RN Position: [facility] Hospital Airframe And Power Plant Mechanic Member Role: Primary Care Nurse Name: Vinod Botello MD Position: [facility] Physician - Behavioral Health Member Role: Lifetime Consulting Physician Address: Address: [address] [place] [address]- [place] Care Team Related Persons Name: MALIA HARRIS Name: KATHLEEN JACQUES Address: home [address] [place] [address] Name: VIRGIL PARKS Address: home [address] [place] [address] Name: MICHAELA MONTENEGRO Address: home UNKNOWN Name: MIGUEL PUENTES Address: home [address] [place] [address]
--- OUTSIDE RECORDS SUMMARY | 2023-09-06 23:47 | XMS_ITS | Continuity of Care Document ---
Author Organization [facility] Address [address] [place] [address]- Care Team Providers Care Bulk Picker Name Role Phone Delia ACOSTA, Lamine Covington Primary Care Physician [phone] Encounter [facility] Date(s): 06/03/23 - 06/04/[address] [address]- Discharge Disposition: A-D/C Home Attending Physician: Kaycee Mondragon MD Admitting Physician: Kaycee Mondragon MD Referring Physician: Not on Staff, Referring [...] virus vaccine, inactivated 2 12/30/10 Gi annia [id number] 12y+ bivalent booster vax 02/07/22 Given SARS-CoV-2 [...] 05/05/23 16:43:00 EDT, Route to Pharmacy Electronically, [facility] [id number], Partial fill upon patient request if the [...] 4 Refills, Maintenance, 02/23/23 13:53:00 EST, [place], [place], [place] - [id number], Partial fill... Start Date: 02/23/23 Status: Ordered docusate sodium 100 mg oral capsule 1 capsule, By Mouth, Daily, # 30 each, 1 Refills, Maintenance, 06/06/22 16:49:00 EDT, [facility] [id number], 178, cm, 06/06/22 16:31:00 EDT, Height, 101.4, kg, 01/12/22 14:14:00 EST, Dry Weight Start Date: 06/06/22 Status: Ordered ferrous gluconate 324 mg oral tablet 1 tablet = 324 mg, By Mouth, Daily, # 100 tablet, 0 Refills, Maintenance, 05/06/23 10:33:00 EDT, Tablet, [place], [place] - [id number], Partial fill upon patient request if the prescription is for a schedule II opioid drug., 178, cm,... Start Date: 05/06/23 Status: Ordered Flonase 50 mcg/inh nasal spray 2 sprays = 100 mcg, Nares, Both, Daily in AM, # 3 each, 3 Refills, Maintenance, 02/23/23 13:39:00 EST, [facility], [place], [place] - [id number], Partial fill upon patient request if the prescription is for a schedule II opioid drug., 2 sp... Start Date: 02/23/23 Status: Ordered folic acid 1 mg oral tablet 1, tablet, By Mouth, Daily, # 30 tablet, Refills 5, Tot. Refills 5, Maintenance, 06/06/22 16:49:00 EDT, Route to Pharmacy Electronically, [place], [place] - [id number], 178, cm, 06/06/22 16:31:00 EDT, Height, 101.4, [...] 02/23/23 13:39:00 EST, Route to Pharmacy Electronically, [facility], [place] - [id number], 178, cm, 02/23/23 13:19:00 EST, Height, 114, kg, 01/08/23... Start Date: 02/23/23 Status: Ordered metFORMIN 500 mg oral tablet, extended release 2 tablet = 1,000 mg, By Mouth, 2 times a day, 1 tab daily x 1 week then 1 tab BID x 1 week then 2 tabs BID, # 120 tablet, 4 Refills, Maintenance, 02/23/23 13:34:00 EST, ER Tablet, [facility], [place] - [id number], Partial fill upon patie... Start Date: 02/23/23 Status: Ordered multivitamin Multiple Vitamins oral tablet 1 tablet, By Mouth, Daily, # 90 tablet, 3 Refills, Maintenance, 05/06/23 10:33:00 EDT, Tablet, [facility], [place] - [id number], Partial fill upon patient request if the [...] Active Knee pain, bilateral Confirmed Active BHN/CCA/One Care/Planning Rn-Tia Kolby [phone]/Health [facility], active care coordination Confirmed Active Severe obesity [...] 3 Oxygen Saturation [94-100 %] 100 % (06/04/23 2:41 AM) 96 % (06/04/23 12:17 AM) 98 % (06/03/23 10:26 PM) Pulse Rate [55-90 bpm] 81 bpm (06/04/23 2:41 AM) 93 bpm *H* (06/04/23 12:17 AM) 97 bpm *H* (06/03/23 10:26 PM) Blood Pressure [90-138/55-84 mm Hg] 133/49mm Hg (06/04/23 2:41 AM) 156/83mm Hg *H* (06/04/23 12:17 AM) 177/108mm Hg *H* (06/03/23 10:26 PM) Respiratory Rate [16-30 br/min] 18 br/min (06/04/23 12:17 AM) 18 br/min (06/03/23 10:26 PM) Temperature [96.8-100.4 DegF] 97.5 DegF (06/04/23 2:41 AM) 97.9 DegF (06/04/23 12:17 AM) 98.2 DegF (06/03/23 10:26 PM) Mode of Delivery (Oxygen) Room air (06/04/23 2:41 AM) Room air (06/04/23 12:17 AM) Room air (06/03/23 10:26 PM) Blood pressure sites Arm, left (06/04/23 12:17 AM) Arm, left (06/03/23 10:26 PM) Temperature Route Oral (06/04/23 2:41 AM) Oral (06/04/23 12:17 AM) Oral (06/03/23 10:26 PM) Social History Social History Type Response Smoking Status Never smoker entered on: 10/02/13 Sex Male Patient Care team information Care Team Personnel Name: Ela Beltrán RN Position: [facility] AMB Nurse Member Role: Primary Care Nurse Name: Alaina Gillette RN Position: [facility] RN Member Role: Primary Care Nurse Name: Kristyn Tapia RN Position: [facility] SN RN Member Role: Primary Care Nurse Name: Lorna Gentile NP Position: [facility] Associate Professional Member Role: Primary Care Nurse Address: Address: [address] [place] [id number] Name: Venus Jaramillo RN Position: [facility] RN Member Role: Primary Care Nurse Name: Flor Donnelly RN Position: [facility] RN Member Role: Primary Care Nurse Name: Ruiz Matson RN Position: [facility] RN Member Role: Primary Care Nurse Name: Belle Ames RN Position: [facility] RN Member Role: Primary Care Nurse Name: Alex Rios RN Position: [facility] RN Member Role: Primary Care Nurse Name: Daniel Hernandez III, RN Position: [facility] RN Member Role: Primary Care Nurse Name: Jordi Carter MD Position: [facility] Renal MD Member Role: Lifetime Consulting Physician Address: Address: [address] [facility] [place] [address]- [place] Name: Loren Hamlin RN Position: [facility] RN Member Role: Primary Care Nurse Name: Malia Wise RN Position: [facility] RN Member Role: Primary Care Nurse Name: Lamine Lin MD Position: [facility] Physician - Primary Care Member Role: PCP Address: Address: [address] [facility] [place] [address]- Name: Rose Abraham RN Position: [facility] Hospital Title Agent Member Role: Primary Care Nurse Name: Vinod Botello MD Position: [facility] Physician - Behavioral Health Member Role: Lifetime Consulting Physician Address: Address: [address] [place] [address]- Care Team Related Persons Name: MALIA HARRIS Name: KATHLEEN JACQUES Address: home [address] [place] [address] Name: VIRGIL PARKS Address: home [address] [place] [address] Name: MICHAELA MONTENEGRO Address: home UNKNOWN Name: MIGUEL PUENTES Address: home [address] [place] [address]
--- OUTSIDE RECORDS SUMMARY | 2023-09-06 23:47 | XMS_ITS | Patient Health Record ---
Author Organization [facility] Address [address] [place] [address] Care Team Providers Care Clearing Inspector Name Role Phone Lamine Lin Primary Care Provider Unavailabl e Clinical, Operations Unavailable Unavailable ALLERGIES Allergen (clinical drug ingredient) Drug/Non Drug Allergy documented on EMR Reaction Allergy Type Onset Date Status lisinopril Lisinopril Unknown Drug Allergy Activ e clonidine Clonidine Unknown Drug Allergy Active Milk-related Compounds Unknown Drug Allergy Active REASON FOR REFERRAL Reason Referral for PC/HM s ervices - Authorization [id number] valid 09/04/22 - 03/22/23 (Bulgarian speaking member) Diagnosis 1 Schizoaffective diso rder, bipolar type (F25.0) Diagnosis 2 Diabetes mellitus (E 11.9) Diagnosis 3 Hypertension (I10) Diagnosis 4 Anxiety (F41.1) Diagnosis 5 Chronic malaise (R53 .81) Referring Provider First Name Operations Referring Provider Last Name Clinical Referring Provider Speciality Unknown Referred Provider Homewatch Caregivers Referred Provider Specialty Personal Car e Management Procedure 1 Personal Care (Agenc y, not LIQUOR TESTER) (S5131) Procedure 2 Homemaker Service pe r 15m (S5130) General Notes Tia Jarrett 023 01:57:28 PM >This Referral is being sent to supply the member's demographic information for Authorization #[id number] Valid: 09/04/22 - 03/22/23 for Personal Care and Homemaking services. This is in addition to the Approval Letter that was sent from [facility] which is attached to this referral. Member is a egyptian speaking, please accommodate with a egyptian speaking program director/air personality. If you anticipate that you are not able to accept the referral and accommodate our member, please contact Bacteriologist Soil-Tia Jarrett at [phone] or via email: [email or web address]. Thank you for your continued support. Referral Priority Routine Reason Large Blood Pressure Monitor Referral Organization [facility] (N) Referring Provider First Name Operations Referring Provider Last Name Clinical Referring Provider Speciality Unknown Referred Provider Shon Mabry General Notes Анна Stevens 02/28/2023 10:40:34 AM >, Demographics-, Address: [address] [place] [address], [place], [address], Contact # [phone], Language: Bulgarian Clinical Notes Анна Stevens 02/28/2023 10:40:20 AM >, Service/item requested: Blood Pressure Monitor , Frequency: 1, Quantity: 1, Size: Large, Height: 178cm, Weight: 132.25kg, Doctors Name: Ava Lira, KEVI # [id number], Office number: [phone], Fax number: [phone] Referral Priority Routine MEDICATIONS Medication SIG (Take, Route, Frequency, Duration) Notes Start Date End Date Status Metoprolol Succinate 25 MG 1 capsule Ora lly Once a day Active traZODone HCl 50 MG 1 tablet at bedtime as needed Orally Once a day Active Ferrous Sulfate 325 (65 Fe) MG 1 tablet Orally Three times a Week Active Colace 100 MG 2 capsules Orally Tw ice a day Unknown Folic Acid 1 MG 1 tablet Orally Once a day Active Haldol Decanoate 100 MG/ML 1 mL Intramuscular Unknown Artificial Tear Solution - as directed Ophthalmic Unknown hydrOXYzine HCl 25 MG 1 tablet Orally th ree times a day as needed for anxiety Active Haloperidol 0.5 MG take 2.5mg Orally On ce a day Unknown Albuterol Sulfate 108 (90 Base) MCG/ACT 1 puff as needed Inhalation every 4 hrs Active Haloperidol 5 MG 3 tablets Orally at bedtime Active Pantoprazole Sodium 40 MG 1 tablet Orall y Once a day Unknown Multivitamin - 1 tablet Orally Once a day Unknown Capsaicin 0.025 % as directed Externally Unknown Losartan Potassium 25 MG 1 tablet Orally Once a day Active Prazosin HCl 5 MG 1 capsule at bedtime Orally Once a day Active Benztropine Mesylate 1 MG 1 tablet Orall y twice a day Active metFORMIN HCl ER 500 MG 1 tablet Orally twice a day Active amLODIPine Besylate 10 MG 1 tablet Orall y Once a day Active Zoloft 100 MG 1 tablet Orally Once a day Active Loratadine 10 MG 1 tablet Orally Once a day as needed Unknown Gabapentin 400 MG 1 tablet Orally Thre e times a day Unknown Ferrous Gluconate 324 (38 Fe) MG 1 tablet Orally daily Unknow n [place] Carbonate 300 MG as directed Ora lly as directed Active Fluticasone Propionate 50 MCG/ACT 1 spray in each nostril Nasally Once a day Active Chlorthalidone 25 MG 0.5 tablet in the m orning with food Orally Once a day Unknown IMMUNIZATIONS Vaccine Route Administration Date Status Comme nts COVID-19, mRNA, LNP-S, bival ent booster, PF, 30 mcg/0.3 mL Unknown 02/07/2022 Administered Flu Vac (Fluzone /Alfuria) QIV PFS Unknown 03/19/2021 A dministered Flu Vac NOC (vac given elsewhere/pt. refuse/ CI) Unknown 02/07/2022 Administered Flu Vac NOC (vac given elsewhere/pt. refuse/ CI) Unknown 02/23/2023 Administered Pfizer-BioDermApproved COVID-19 Vaccine IM Unknown 08/20/2020 Administered Pfizer-BioNTFireLayers COVID-19 Vaccine IM Unknown 09/10/2020 Administered PROBLEMS Problem Type ICD Code Onset Dates Problem Status W/U Status Risk SNOMED Code Notes Problem Hypertension (I10) Active confirmed Hyp ertension (03374051) Problem Anxiety (F41.1) Active confirmed Anxiet y (21926060) Problem GERD (gastroesophageal reflux disease) (K21.9) Active confirmed Gastroesophagea l reflux disease (433036857) Problem Schizoaffective disorder, bipolar type (F25.0) Active confirmed Schizoaffective disorder, bipolar type (58741777) Problem Diabetes mellitus (E11.9) Active confirmed Diabetes mellit (97149740) Problem Hypercholesteremia (E78.00) Active confirmed Pure hypercholesterolemia (511108225) Encounters Encounter Location Date Provider Diagnosis [facility] ([facility]) [address] [place] [phone] 02/22/2023 Operations Clinical Schizoaffective disorder, bipolar type F25.0 ; Diabetes mellitus E11.9 ; Hypertension I10 ; GERD (gastroesophageal reflux disease) K21.9 ; Hypercholesteremia E78.00 and Anxiety F41.1 [facility] ([facility]) [address] [place] [phone] 09/28/2022 Operations [facility] ([facility]) [address] [address] 01/27/2023 Operations Clinical [facility] ([facility]) [address] [place] [phone] 02/10/2023 Operations Clinical [facility] ([facility]) [address] [place] [phone] 03/09/2023 Operations Clinical [facility] ([facility]) [address] [place] [phone] 03/30/2023 Operations Clinical [facility] ([facility]) [address] [place] [phone] 05/05/2023 Operations Clinical [facility] ([facility]) [address] [place] [phone] 07/12/2023 Operations Clinical ASSESSMENTS Encounter Date Diagnosis Assessment Notes Treatment [...] Insured Coverage Start Date Coverage End Date [address] [phone] [id number] HELLEN ORTIZ Self - patient is the insured 9 9
--- OUTSIDE RECORDS SUMMARY | 2023-09-06 23:47 | XMS_ITS ---
Author Organization [facility] Address [address] [place] [address] Care Team Providers Care Strategy Lead Name Role Phone Lamine Lin Primary Care Provider Unavailabl e Clinical, Operations Unavailable Unavailable ALLERGIES Allergen (clinical drug ingredient) Drug/Non Drug Allergy documented on EMR Reaction Allergy Type Onset Date Status lisinopril Lisinopril Unknown Drug Allergy Activ e clonidine Clonidine Unknown Drug Allergy Active Milk-related Compounds Unknown Drug Allergy Active REASON FOR VISIT Psych hospital discharge med rec MEDICATIONS Medication SIG (Take, Route, Frequency, Duration) Notes Start Date End Date Status Haloperidol 0.5 MG take 2.5mg Orally On ce a day Unknown Haloperidol 5 MG 3 tablets Orally at bedtime Active Chlorthalidone 25 MG 0.5 tablet in the m orning with food Orally Once a day Unknown traZODone HCl 50 MG 1 tablet at bedtime as needed Orally Once a day Active Colace 100 MG 2 capsules Orally Tw ice a day Unknown Artificial Tear Solution - as directed Ophthalmic Unknown hydrOXYzine HCl 25 MG 1 tablet Orally th ree times a day as needed for anxiety Active Multivitamin - 1 tablet Orally Once a day Unknown Capsaicin 0.025 % as directed Externally Unknown Losartan Potassium 25 MG 1 tablet Orally Once a day Active Gabapentin 400 MG 1 tablet Orally Thre e times a day Unknown Pantoprazole Sodium 40 MG 1 tablet Orall y Once a day Unknown Prazosin HCl 5 MG 1 capsule at [...] Orally Once a day as needed Unknown [place] Carbonate 300 MG as directed Ora lly as directed Active Fluticasone Propionate 50 MCG/ACT 1 spray in each nostril Nasally Once a day Active Ferrous Gluconate 324 (38 Fe) MG 1 tablet Orally daily Unknow n Metoprolol Succinate 25 MG 1 capsule Ora lly Once a day Active Ferrous Sulfate 325 (65 Fe) MG 1 tablet Orally Three times a Week Active Folic Acid 1 MG 1 tablet Orally Once a day Active Haldol Decanoate 100 MG/ML 1 mL Intramuscular Unknown Albuterol Sulfate 108 (90 Base) MCG/ACT 1 puff as needed Inhalation every 4 hrs Active Encounters Encounter Location Date Provider Diagnosis [facility] ([facility]) [address] [place] [phone] 07/12/2023 Operations Clinical PLAN OF TREATMENT No Information
--- OUTSIDE RECORDS SUMMARY | 2023-09-06 23:47 | XMS_ITS ---
Author Organization [facility] Address [address] [place] [address] Care Team Providers Care Applied Computer Science Professor Name Role Phone Lamine Lin Primary Care Provider Unavailabl e Clinical, Operations Unavailable Unavailable ALLERGIES Allergen (clinical drug ingredient) Drug/Non Drug Allergy documented on EMR Reaction Allergy Type Onset Date Status lisinopril Lisinopril Unknown Drug Allergy Activ e clonidine Clonidine Unknown Drug Allergy Active Milk-related Compounds Unknown Drug Allergy Active REASON FOR VISIT hospital discharge med rec MEDICATIONS Medication SIG (Take, Route, Frequency, Duration) Notes Start Date End Date Status Fluticasone Propionate 50 MCG/ACT 1 spray in each nostril Nasally Once a day Active Zoloft 100 MG 1 tablet Orally Once a day Active Loratadine 10 MG 1 tablet Orally Once a day as needed Active amLODIPine Besylate 5 MG 1.5 tablet Oral ly Once a day Active Haloperidol 0.5 MG take 2.5mg Orally On ce a day Active Haloperidol 5 MG 3 tablets Orally at bedtime Active Artificial Tear Solution - as directed Ophthalmic Active hydrOXYzine HCl 25 MG 1 tablet Orally tw ice a day as needed for anxiety Active [place] Carbonate 150 MG take 450mg Oral ly Twice a day Active Losartan Potassium 25 MG 1 tablet Orally Once a day Active Ferrous Sulfate 325 (65 Fe) MG 1 tablet Orally every 48 hours Active Capsaicin 0.025 % as directed Externally Active Chlorthalidone 25 MG 0.5 tablet in the morning with food Orally Once a day Unknown Multivitamin - 1 tablet Orally Once a day Active Pantoprazole Sodium 40 MG 1 tablet Orall y Once a day Active Colace 100 MG 2 capsules Orally Tw ice a day Active traZODone HCl 150 MG 1 tablet at bedtime Orally Once a day Active metFORMIN HCl ER 500 MG 1 tablet with ev ening meal Orally Once a day Active Benztropine Mesylate 0.5 MG 1 tablet Orally BID Active Prazosin HCl 5 MG 1 capsule at bedtime Orally Once a day Active Gabapentin 400 MG 1 tablet Orally Thre e times a day Active Encounters Encounter Location Date Provider Diagnosis [facility] ([facility]) [address] [place] [phone] 03/30/2023 Operations Clinical PLAN OF TREATMENT No Information
--- NOTE | 2023-09-07 00:20 | ED.SOB ---
HPI - SOB/Dyspnea General Chief Complaint: Dyspnea Stated Complaint: SLEEP APNEA,NAUSEA,DIZZY Time Seen by Provider: 09/07/23 00:18 Source: patient Mode of arrival: EMS Limitations: no limitations History of Present Illness ED Provider: jossy WOOTEN Narrative: Patient is 33 years old came here from [facility] with history of sleep apnea, schizoaffective disorder, anxiety been using CPAP machine for a while today patient after using CPAP machine felt very anxious in showed a breath with chest pain no SI HI after arrival in the ER patient feeling much better Related Data Home Medications ?Medication ?Instructions ?Recorded ?Confirmed pantoprazole 40 mg tablet,delayed 40 mg PO DAILY 08/02/22 03/22/23 release trazodone 50 mg tablet 150 mg PO BEDTIME Insomnia 02/04/23 03/22/23 Previous Rx's ?Medication ?Instructions ?Recorded capsaicin 0.025 % topical cream 1 appl topical TID PRN Pain, 12/29/22 Moderate(Pain Scale 4-6) 15 days #25 grams fluticasone propionate 50 1 spray intranasal DAILY 30 days 02/08/23 mcg/actuation nasal #1 inhaler spray,suspension amlodipine 2.5 mg tablet 7.5 mg (3 x 2.5 mg) PO DAILY 30 03/07/23 days #90 tabs benztropine 0.5 mg tablet 0.5 mg PO BID Reaction 30 days #60 03/07/23 tabs docusate sodium 100 mg capsule 200 mg (2 x 100 mg) PO BID 30 days 03/07/23 #120 caps ferrous sulfate 324 mg (65 mg 324 mg PO Q OTHER DAY 30 days #15 03/07/23 iron) tablet,delayed release tabs gabapentin 100 mg capsule 400 mg (4 x 100 mg) PO TID #90 caps 03/07/23 (Neurontin) haloperidol 5 mg tablet 15 mg (3 x 5 mg) PO BEDTIME 30 03/07/23 days #90 tabs hydroxyzine HCl 25 mg tablet 25 mg PO BID PRN Anxiety 30 days 03/07/23 #60 tabs loratadine 10 mg tablet 10 mg PO DAILY 30 days #30 tabs 03/07/23 metformin 500 mg tablet,extended 500 mg PO QPM #30 tabs 03/07/23 release 24 hr multivitamin (Daily-Usha tablet) 1 tab PO DAILY 30 days #30 tabs 03/07/23 prazosin 5 mg capsule 5 mg PO BEDTIME 30 days #30 caps 03/07/23 sertraline 100 mg tablet (Zoloft) 100 mg PO DAILY #30 tabs 03/07/23 haloperidol 0.5 mg tablet 2.5 mg (5 x 0.5 mg) PO DAILY 30 03/28/23 days #150 tabs lithium carbonate 450 mg 450 mg PO BID 30 days #60 tabs 03/28/23 tablet,extended release losartan 25 mg tablet 25 mg PO BEDTIME 30 days #30 tabs 03/28/23 peg [id number] 1 1 drp ophthalmic (eye) Q1H PRN Dry 03/28/23 %-0.2 %-0.2 % eye drops Eyes 30 days #15 mL (Artificial Tears ([id number])) Allergies Allergy/AdvReac Type Severity Reaction Status Date / Time lisinopril Allergy Unknown Cough Verified 09/06/23 22:58 clonidine AdvReac Unknown Unknown Verified 09/06/23 22:58 Review of Systems Review of Systems: Yes all other systems are reviewed and are negative [facility] Past Medical History Medical History Morbid obesity Medical clearance for psychiatric admission Schizoaffective disorder Diabetes HTN (hypertension) Social History Social History Household Members: Family Housing: Apartment Do you presently have visiting nurse or other home services: Yes Unable to assess alcohol history related to: Refusing to respond Patient Tobacco Use Status: Never used Tobacco e-Cigarette/Vaping Use: Never Used Second Hand Smoke Exposure: No Substance Use Type: Marijuana Advance Directives: No Advance Directives Information Provided: Yes Do you have a plan to hurt others: No Plan service: No Sexual orientation: Straight/Heterosexual Physical Exam Vital Signs: Vital Signs: Last Vital Signs Temp 98.1 F 09/06/23 22:59 Pulse 101 H 09/07/23 01:15 Resp 18 09/07/23 01:15 BP 143/74 H 09/06/23 22:59 Pulse Ox 94 09/06/23 22:59 O2 Del Method Room Air 09/06/23 22:59 BMI result Body Mass Index 50.2 Appearance: Alert. Oriented X3. No acute distress. Eyes: PERRLA, No Nystagmus ENT: Pharynx normal. Oral Mucosa moist Neck: Normal inspection. Neck supple. CVS: Normal heart rate and rhythm. Pulses normal. Respiratory: No respiratory distress. Equal air entry bilateral, occasional wheezing Abdomen: Soft and nontender. Bowel sounds are present, no mass palpable, no CVA tenderness Skin: Skin warm and dry. Normal skin color. Normal skin turgor. Extremities: No lower extremity edema. No calf tenderness Neuro: Oriented X 3. Medications Administered Discontinued Medications Generic Name Dose Route Start Last Admin Trade Name Freq PRN Reason Stop Dose Admin Albuterol Sulfate 2.5 mg/ 0 mg 09/07/23 00:42 09/07/23 01:12 Albuterol/Ipratropium 3 ml INHALE 09/07/23 00:43 5 dose ONCE ONE Administration Medical Decision Making Medical Decision Making [facility] Narrative: Patient has schizoaffective disorder/anxiety with history of ESHA felt very anxious with shortness of breath after using CPAP machine tonight with left-sided chest pain feeling much better after arrival in the ER patient has been sleeping since seen DuoNeb treatment was given patient felt much better Differential Diagnosis Differential Diagnoses: The differential diagnosis associated with the presentation includes Anxiety/ACS/pleuritic pain Admission/Observation Consideration of admission/observation: Escalation of care including admission/observation considered Lab Data [facility] Lab Attestation statement: I reviewed the patient's lab results. 09/06/23 23:08 09/06/23 23:08 Labs: Lab Results 09/06/23 Range/Units 23:08 WBC 10.5 (4.8-10.8) X10*3/uL RBC 4.96 (4.60-5.80) X10*6/uL Hgb 13.8 L (14.0-18.0) g/dl Hct 42.1 (42.0-52.0) % MCV 84.9 (80.0-98.0) fL MCH 27.8 (27.0-33.0) pg MCHC 32.8 (31.0-36.0) g/dl RDW 12.6 (11.0-16.0) % Plt Count 256 (160-400) X10*3/uL MPV 9.8 (9.4-12.4) fL Immature Gran % (Auto) 0.5 H (0.0-0.4) % Neut % (Auto) 62.3 (45-73) % Lymph % (Auto) 24.7 (20-40) % [place] % (Auto) 8.8 (2-11) % Eos % (Auto) 3.2 (0-4) % Baso % (Auto) 0.5 (0-2) % Lymph # (Auto) 2.6 (1.2-4.9) X10*3/uL [place] # (Auto) 0.9 (0.1-1.2) X10*3/uL Eos # (Auto) 0.3 (0.0-0.4) X10*3/uL Baso # (Auto) 0.1 (0.0-0.2) X10*3/uL Abs Immat Gran (auto) 0.05 H (0.00-0.03) X10*3/uL Absolute Neuts (auto) 6.6 (2.0-8.3) x10*3/uL Absolute Nucleated RBC 0.000 (0.0-0.012) X10*3/uL Nucleated RBC % (auto) 0.0 (0.0-0.2) /100WBC Sodium 141 (135-145) mmol/L Potassium 4.4 (3.3-5.1) mmol/L Chloride 102 (96-108) mmol/L Carbon Dioxide 29 (22-29) mmol/L Anion Gap 14 (12-20) BUN 13 (9-16) mg/dL Creatinine 0.95 (0.5-1.4) mg/dL Estim Creat Clear Calc 164.7 Estimated GFR > 60 Random Glucose 95 (60-115) mg/dL Calcium 9.5 (8.4-10.2) mg/dL Total Bilirubin 0.2 (0.0-1.0) mg/dL AST 19 (5-37) U/L ALT 17 (0-40) U/L Alkaline Phosphatase 57 (39-117) U/L Troponin I High Sens 4.9 (<3.5-35.0) ng/L Total Protein 6.8 (6.5-8.0) g/dL Albumin 4.1 (3.5-5.0) g/dL Independent Interpretation I performed an independent interpretation of an: EKG Interpretation: Normal sinus rhythm heart rate 84 beats per minute normal interval normal axis no acute ST-T changes no acute ischemia Discharge Plan Discharge Clinical Impression: Obstructive sleep apnea Patient Disposition: er Psychiatric Hosp Transfer Details: Patient has asthma along with sleep apnea with anxiety use inhaler 2 puffs every 4-6 hours as needed chest x-ray is normal Instructions: Sleep Apnea (DC) Additional Instructions: Continue medications and inhaler as advised Follow up with your PCP Prescriptions: No Action pantoprazole 40 mg tablet,delayed release (DR/EC) 40 mg PO DAILY capsaicin 0.025 % Cream 1 appl topical TID PRN (Reason: Pain, Moderate(Pain Scale 4-6)) 15 Days Qty: 25 0RF Protocol: Apply to: Apply to: right elbow trazodone 50 mg tablet 150 mg PO BEDTIME fluticasone propionate 50 mcg/actuation [place],Suspension 1 spray intranasal DAILY 30 Days Qty: 1 0RF prazosin 5 mg Capsule 5 mg PO BEDTIME 30 Days Qty: 30 0RF Protocol: Hold for SBP< HOLD for SBP < : 90 docusate sodium 100 mg Capsule 200 mg PO BID 30 Days Qty: 120 0RF multivitamin [Daily-Usha] Tablet 1 tab PO DAILY 30 Days Qty: 30 0RF benztropine 0.5 mg tablet 0.5 mg PO BID MDD 1mg 30 Days Qty: 60 0RF haloperidol 5 mg Tablet 15 mg PO BEDTIME 30 Days Qty: 90 0RF sertraline [Zoloft] 100 mg tablet 100 mg PO DAILY Qty: 30 0RF amlodipine 2.5 mg tablet 7.5 mg PO DAILY 30 Days Qty: 90 0RF hydroxyzine HCl 25 mg Tablet 25 mg PO BID PRN (Reason: Anxiety) 30 Days Qty: 60 0RF gabapentin [Neurontin] 100 mg capsule 400 mg PO TID Qty: 90 0RF metformin 500 mg tablet extended release 24 hr 500 mg PO QPM Qty: 30 0RF loratadine 10 mg tablet 10 mg PO DAILY 30 Days Qty: 30 0RF ferrous sulfate 324 mg (65 mg iron) tablet,delayed release (DR/EC) 324 mg PO Q OTHER DAY 30 Days Qty: 15 0RF haloperidol 0.5 mg Tablet 2.5 mg PO DAILY 30 Days Qty: 150 0RF losartan 25 mg Tablet 25 mg PO BEDTIME 30 Days Qty: 30 0RF Protocol: Hold for SBP< HOLD for SBP < : 90 lithium carbonate 450 mg Tablet Extended Release 450 mg PO BID 30 Days Qty: 60 0RF Artificial Tears([id number]) 1-0.2-0.2 % Drops 1 drp ophthalmic (eye) Q1H PRN (Reason: Dry Eyes) 30 Days Qty: 15 0RF Print Language: Prydeinig
[2023-09-07] MEDS: Albuterol Sulfate 2.5 MG, Albuterol/Iprat 2.5/0.5MG 3 ML 3 ML INHALE (01:12)
[2023-09-07 01:15] VITALS: PULSE 101; RESP 18; O2SAT 97
--- NOTE | 2023-09-07 02:52 | PC.NURSE ---
Nursing report given to the nursing supervisor modern languages at [facility]. Pt is returning via ambulance and aware of plan of care.
[2023-09-07 02:54] VITALS: BP 143/74; PULSE 101; RESP 18; TEMP 36.7; O2SAT 94
== END 2023-09-07 02:55 ==
PROVIDERS: Emergency Provider Internal Medicine
DX: G47.33 Obstructive sleep apnea (adult) (pediatric) (principal); F41.9 Anxiety disorder, unspecified; R06.02 Shortness of breath; R07.9 Chest pain, unspecified; F25.9 Schizoaffective disorder, unspecified; E11.9 Type 2 diabetes mellitus without complications; I10 Essential (primary) hypertension; E66.01 Morbid (severe) obesity due to excess calories; Z68.43 Body mass index [BMI] 50.0-59.9, adult; Z99.89 Dependence on other enabling machines and devices; Z79.84 Long term (current) use of oral hypoglycemic drugs; Z79.899 Other long term (current) drug therapy
CPT/HCPCS: 36415; 71045; 80053; 84484; 85025; 93005; 94640; 99284

== ENCOUNTER → 2023-09-06 22:50 | Outpatient (BNV) | payer OTHER, SELFPAY | PROVIDERS: Emergency Provider Internal Medicine; Visit Provider Internal Medicine Cardiovascular Disease | DX: R07.9 Chest pain, unspecified (principal) | CPT/HCPCS: 93010 ==

== ENCOUNTER 2024-09-12 19:34 | Inpatient (IN) | payer OTHER, SELFPAY ==
--- NOTE | ~2024-09-12 | XR_ITS ---
Examination: 5 view x-ray lumbar spine. INDICATION: Back pain Prior: None TECHNIQUE: AP, lateral, lateral spot, bilateral oblique x-rays of the lumbar spine FINDINGS: Soft tissues are unremarkable. There are 5 non-rib bearing lumbar segments. Vertebral body height and alignment is preserved. Disc spaces are preserved. There are no pars interarticularis defects. XR/XR lumbar spine 4V min IMPRESSION: Unremarkable lumbar spine. Electronically signed by: Bryan Pepe MD 09/17/2024 04:03 PM EDT
[2024-09-12 22:32] VITALS: BMI 53.5
--- NOTE | 2024-09-13 06:34 | PC.ADMIT ---
Patient is a 34 year old bilingual male admitted as a CV admission to , 09/12/24 at 1955 as a transfer from [facility]. Patient apparently called 911 to report he was having SI to overdose on his home medications. Although he has never been on before, he has a history of schizophrenia and depression. Patient also has sleep apnea, copd, HTN, depression, anxiety, DM2. He has providers: Therapist at [facility], Psychiatrist: Jarret, PCP at [facility]. Chelo at [facility] has only been working with patient for a short time. Patient cooperative but tired on admission. He denied any SI, HI, AVH, did not report any current depression or anxiety. He needs to do safety tool, LIZZY, treatment plan. His skin check is unremarkable. Patient took a shower, took Trazadone and went to bed. Home medications being verified. Provider human relations manager aware.
--- NOTE | 2024-09-13 07:57 | PHA.MEDREC ---
Pharmacy Consult ? Medication Reconciliation Pharmacy has reviewed/completed the medication reconciliation. RN had attempted med rec. RN called pharmacy this morning to request help with patients med list. [facility] was faxed several pages of medication orders/ administrations. Source is unknown as no establishment name is on any of the pages however encounter date shoes 09/09/2024. There are several conflicting doses and administration directions seen. [facility] reviewed what was done by RN and included/ edited the med list to match patient claims and what was administered to the patient/ sent a discharge. It is noted that the patient is not taking haloperidol decanonate, however on another page it shows patient was given 200 mg IM on 09/11/24. Left unconfirmed.
[2024-09-13 08:00] VITALS: BP 113/60; PULSE 85; RESP 18; TEMP 35.8; O2SAT 92
[2024-09-13 08:20] LABS: Glucose, Whole Blood 96 mg/dL (60-115)
[2024-09-13 08:29] LABS: Hemoglobin A1C 140.4651 umol/L; Total Hemoglobin (HGBA1C) 3553.2334 umol/L
[2024-09-13 08:40] LABS: Alanine Aminotransferase 36 U/L (0-40); Albumin Level 4.5 g/dL (3.5-5.0); Alkaline Phosphatase 74 U/L (39-117); Anion Gap 10 (12-20); Aspartate Amino Transferase 28 U/L (5-37); Blood Urea Nitrogen 11 mg/dL (9-16); Calcium 9.0 mg/dL (8.4-10.2); Carbon Dioxide 29 mmol/L (22-29); Chloride 107 mmol/L (96-108); Cholesterol 159 mg/dL (<200); Creatinine Clr Calc Pharmacy 165.8; Estimated Glomerular Filt Rate > 60; HDL Cholesterol 30 mg/dL (>40); Potassium 4.4 mmol/L (3.3-5.1); Sodium 142 mmol/L (135-145); Total Protein 7.2 g/dL (6.5-8.0); Triglycerides 123 mg/dL (<150)
[2024-09-13 08:58] LABS: Free T4 (Free Thyroxine) 1.11 ng/dL (0.71-1.85); Thyroid Stimulating Hormone 0.98 uIU/mL (0.32-4.0)
[2024-09-13] MEDS: Nicotine 21 MG PATCH.TD24 TRANSDERMA (09:09)
--- NOTE | 2024-09-13 09:12 | HO.PM.IMCN ---
History of Present Illness Data of Consult Service Date: 09/13/24 Primary Care Provider: Unknown Physician HPI Reason for consult: Medical Management 34 old male with a past medical history [id number] diabetes, depression, anxiety, hypertension, schizoaffective disorder, bipolar disorder, obesity, ESHA, and GERD presented to [facility] ED with depression/suicidal ideation with plans to overdose. Notably patient was discharged from [facility] earlier in the day, and then subsequently presented to [facility] for evaluation of SI. Patient was hospitalized earlier in the month at [facility], diagnosed with COVID 19 on 08/26. Patient had two chest x-rays done 09/05/24 at [facility] and 09/09/24 at [facility] both demonstrated no active disease. On exam patient is reporting epigastric and right upper quadrant abdominal pain, appears this is chronic in nature, patient had a negative CT done 09/10/19 for similar complaints at [facility], he has no elevation in his liver functions, no fever, no tachycardia no temperature. Reports that he has a history of GERD. Patient has history of ESHA, Patient reports that he does not wear his CPAP. Also history of vaping and smoking, and a documented chart history of COPD. He is not in acute exacerbation at this time. His diabetes is well controlled with a A1c of 5.8. Rest of his labs reviewed are unremarkable, TSH within normal limits. On exam he denies any shortness of breath, dizziness, lightheadedness, or any other concerning symptoms. Review of Systems Review of Systems: Denies any shortness of breath, chest pain, dizziness, lightheadedness, abdominal pain or discomfort, nausea vomiting or diarrhea PMFSH Medical History Morbid obesity Medical clearance for psychiatric admission Schizoaffective disorder Diabetes HTN (hypertension) Social History Household Members: None Housing: Apartment Do you presently have visiting nurse or other home services: No Unable to assess alcohol history related to: Refusing to respond Patient Tobacco Use Status: Current everyday Tobacco user Tobacco use type: Cigarette Cigarette Packs Per Day: 1 Cigarettes Per Day: 20.0 Years Smoked: 15 Smoked in Last 30 Days: Yes e-Cigarette/Vaping Use: Never Used Patient Interested in Nicotine Replacement: Yes Patient Given Instructions on How to Stop Smoking: Yes Date Education Initiated: 09/12/24 Second Hand Smoke Exposure: No Substance Use Type: Marijuana Have you been hit, kicked, punched, or otherwise hurt by someone within the past year? If so, by whom?: No Do you feel safe in your current relationship?: No Current Relationship Is there a partner from a previous relationship who is making you feel unsafe now?: No Are you made to feel afraid or neglected: No Spiritual Healthcare Practices: unknown Jewish Healthcare Practices: unknown Cultural Healthcare Practices: unknown Advance Directives: No Advance Directives Information Provided: No Do you have a plan to hurt others: No Plan Recently lost weight without trying: No Nutrition Risks: No Nutritional Risk Poor oral hygiene: No service: No Sexual orientation: Straight/Heterosexual Meds Allergies Allergy/AdvReac Type Severity Reaction Status Date / Time lisinopril Allergy Unknown Cough Verified 09/06/23 22:58 clonidine AdvReac Unknown Unknown Verified 09/06/23 22:58 Active Medications: Current Medications Acetaminophen (Acetaminophen 325 Mg Tablet) 650 mg PO Q6H PRN PRN Reason: Headache/Pain, Scale 1-10 Al Hydroxide/Mg Hydroxide (Magnesium Hydrox/Alum Hydrox 30 Ml Oral.Susp) 30 ml PO Q6H PRN PRN Reason: Heartburn/Nausea Amlodipine Besylate (Amlodipine Besylate 10 Mg Tablet) 10 mg PO DAILY [facility]; Protocol Last Admin: 09/13/24 09:06 Dose: 10 mg Benztropine Mesylate (Benztropine Mesylate 1 Mg Tablet) 1 mg PO BID [facility] Last Admin: 09/13/24 09:07 Dose: 1 mg Dextrose (Dextrose 50 % 25 Gm/50 Ml Syringe) 25 gm IVPUSH Q15M PRN; Protocol PRN Reason: per Hypoglycemia Standing Ord. Duloxetine HCl (Duloxetine Hcl 60 Mg Capsule.Dr) 60 mg PO DAILY [facility] Last Admin: 09/13/24 09:07 Dose: 60 mg Gabapentin (Gabapentin 300 Mg Capsule) 600 mg PO TID [facility] Last Admin: 09/13/24 09:07 Dose: 600 mg Glucose (Glucose Gel 15 Gm Gel..Gram.) 15 gm PO Q15M PRN; Protocol PRN Reason: per Hypoglycemia Standing Ord. Haloperidol (Haloperidol 5 Mg Tablet) 5 mg PO Q4H PRN PRN Reason: Agitation Haloperidol Decanoate (Haloperidol Decanoate 50 Mg/Ml Vial) 200 mg IM Q28D EDWIGE Hydroxyzine HCl (Hydroxyzine Hcl 25 Mg Tablet) 25 mg PO Q6H PRN PRN Reason: mild anxiety Insulin Human Lispro (Insulin Lispro 100 Unit/Ml 3 Ml Vial) 0 unit SUBCUT QIDACHS [facility]; Protocol Last Admin: 09/13/24 09:06 Dose: Not Given Magnesium Hydroxide (Milk Of Magnesia 30 Ml Oral.Susp) 30 ml PO DAILY PRN PRN Reason: Constipation Metformin HCl (Metformin Hcl Er 500 Mg Tab.Er.24h) 500 mg PO BIDWM [facility] Last Admin: 09/13/24 09:07 Dose: 500 mg Multivitamins/Vitamin C (Multivitamin Tablet) 1 tab PO DAILY [facility] Last Admin: 09/13/24 09:06 Dose: 1 tab Naltrexone HCl (Naltrexone Hcl 50 Mg Tablet) 50 mg PO DAILY [facility] Last Admin: 09/13/24 09:06 Dose: 50 mg Nicotine (Nicotine 21 Mg Patch.Td24) 21 mg TRANSDERMA DAILY [facility] Last Admin: 09/13/24 09:09 Dose: 21 mg Nicotine Polacrilex (Nicotine Polacrilex 2 Mg Gum) 2 mg BUCCAL Q2H PRN PRN Reason: Nicotine Cravings Non-Formulary Medication (Revefenacin) 175 mcg INHALE DAILY [facility] Ondansetron HCl (Ondansetron Odt 4 Mg Tab.Rapdis) 4 mg TRANSLINGU Q8H PRN PRN Reason: Nausea and Vomiting Prazosin HCl (Prazosin Hcl 1 Mg Capsule) 2 mg PO BEDTIME [facility]; Protocol Trazodone HCl (Trazodone Hcl 50 Mg Tablet) 50 mg PO BEDTIME MRX1 PRN PRN Reason: Insomnia Last Admin: 09/13/24 02:03 Dose: 50 mg Home Medications ?Medication ?Instructions ?Recorded ?Confirmed ?Last Taken ?Type benztropine 0.5 mg tablet 1 mg PO BID 09/12/24 09/12/24 Unknown History duloxetine 60 mg capsule,delayed 60 mg PO DAILY 09/12/24 09/12/24 Unknown History release sprinkle gabapentin 100 mg capsule 600 mg PO TID 09/12/24 09/12/24 Unknown History (Neurontin) hydroxyzine HCl 25 mg tablet 50 mg PO QID PRN anxiety 09/12/24 09/13/24 Unknown History nicotine (polacrilex) 2 mg gum 2 mg buccal Q2H PRN Nicotine 09/12/24 09/12/24 Unknown History Cravings nicotine 21 mg/24 hr daily 1 patch transdermal DAILY 09/12/24 09/12/24 Unknown History transdermal patch ondansetron 4 mg disintegrating 4 mg PO Q8H PRN Nausea And Vomiting 09/12/24 09/12/24 Unknown History tablet prazosin 2 mg capsule 2 mg PO BEDTIME 09/12/24 09/12/24 Unknown History revefenacin 175 mcg/3 mL solution 175 mcg inhalation DAILY 09/12/24 09/12/24 Unknown History for nebulization albuterol sulfate 90 mcg/actuation 1 inh inhalation QID PRN Wheezing 09/13/24 09/13/24 Unknown History aerosol inhaler amlodipine 10 mg tablet 10 mg PO DAILY 09/13/24 09/13/24 Unknown History ammonium lactate 12 % lotion 1 appl topical DAILY 09/13/24 09/13/24 Unknown History fluticasone furoate 100 1 inh inhalation DAILY 09/13/24 09/13/24 Unknown History mcg-vilanterol 25 mcg/dose inhalation powder (Breo Ellipta) haloperidol 20 mg tablet 20 mg PO BEDTIME 09/13/24 09/13/24 Unknown History haloperidol decanoate 100 mg/mL 200 mg IM Q4W 09/13/24 09/11/24 History intramuscular solution lamotrigine 25 mg tablet 25 mg PO DAILY 09/13/24 09/13/24 Unknown History loratadine 10 mg tablet 10 mg PO DAILY 09/13/24 09/13/24 Unknown History losartan 25 mg tablet 50 mg PO DAILY 09/13/24 09/13/24 Unknown History melatonin 3 mg tablet 3 mg PO BEDTIME PRN Sleep 09/13/24 09/13/24 Unknown History metformin 500 mg tablet,extended 500 mg PO BID 09/13/24 09/13/24 Unknown History release 24 hr multivitamin 1 tab PO DAILY 09/13/24 09/13/24 Unknown History omeprazole 40 mg capsule,delayed 40 mg PO DAILY 09/13/24 09/13/24 Unknown History release prazosin 5 mg capsule 10 mg PO BEDTIME 09/13/24 09/13/24 Unknown History trazodone 100 mg tablet 100 mg PO BEDTIME 09/13/24 09/13/24 Unknown History umeclidinium 62.5 mcg/actuation 1 inh inhalation DAILY 09/13/24 09/13/24 Unknown History blister powder for inhalation (Incruse Ellipta) vit C,W-Fe-itymag-lutein-zeaxan 60 1 cap PO DAILY 09/13/24 09/13/24 Unknown History mg-13.5 mg-15 mg-2 mg-6 mg capsule (Healthy Eyes Lutein-Zeaxanthin) Physical Exam Vital Signs and Narrative: Vital Signs: Last Vital Signs Temp 96.5 F L 09/13/24 08:00 Pulse 85 09/13/24 08:00 Resp 18 09/13/24 08:00 BP 113/60 09/13/24 08:00 Pulse Ox 92 09/13/24 08:00 O2 Del Method Room Air 09/13/24 08:00 BMI result Body Mass Index 53.5 CONST: Alert and oriented, in NAD. Well nourished HEENT: Normocephalic, atraumatic, MMM, Eyes clear, Neck supple RESP: Lungs clear, RRR even and regular HEART:,RRR, S1, S2. No murmur, no edema GI:Abdomen Soft NT, ND. + BS times four :Deferred SKIN: Warm dry and intact, no visible lesions or rashes NEURO:CN II-XII Intact bilaterally, Sensation intact. 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 Thank you for allowing me to participate in the care of this patient. Signing off at this time. Please reconsult of any acute concerns or issues arise
[2024-09-13 11:54] LABS: Glucose, Whole Blood 124 mg/dL (60-115)
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
[2024-09-13 17:19] LABS: Glucose, Whole Blood 123 mg/dL (60-115)
[2024-09-13 17:22] LABS: Folate 12.7 ng/mL (> or = 4.0); Vitamin B12 672 pg/mL (200-900)
[2024-09-13 19:56] LABS: Glucose, Whole Blood 111 mg/dL (60-115)
[2024-09-13 20:00] VITALS: BP 146/89; PULSE 92; RESP 18; TEMP 37; O2SAT 96
[2024-09-13 21:47] VITALS: PULSE 88; RESP 29; O2SAT 97
[2024-09-14 08:00] VITALS: BP 164/81; PULSE 88; TEMP 36.5; O2SAT 97
[2024-09-14 08:06] LABS: Glucose, Whole Blood 98 mg/dL (60-115)
[2024-09-14] MEDS: Nicotine 21 MG PATCH.TD24 TRANSDERMA (09:04)
[2024-09-14 12:19] LABS: Glucose, Whole Blood 119 mg/dL (60-115)
[2024-09-14] MEDS: Throat Lozenge, Medicated LOZENGE 1 LOZENGE MUCOUS MEM ×2 (16:32→19:38)
[2024-09-14 17:04] LABS: Glucose, Whole Blood 120 mg/dL (60-115)
--- NOTE | 2024-09-14 19:16 | HO.PSYCHPN ---
Subjective Subjective Date of Service: 09/14/24 Reason For Visit: SI Subjective Notes: Conditional Voluntary Interim History: Active on unit. showered. pt reports high anxiety but does not know the cause. he reports sleeping well. denies SI/HI/VH/AH. Continue current tx plan. Medication Compliance: Yes Side effects from medications: No Mental Status Exam Mental Status Exam Patient Appearance: Well Grooomed Patient Orientation: Person, Place, Time and Situation Level of Consciousness: Awake and Alert Patient Behavior: Appropriate and Cooperative Mood Description: Anxious Affect Description: Anxious Ability to Follow Directions: Good Speech Pattern: Clear Memory Description: Intact Hallucinations: None Delusions: Not Present Thought Process: Intact Thought Content: positive for Intact Diagnostics Vital Signs (24Hr): Vital Signs - 24 hr 09/13/24 20:00 09/13/24 21:47 09/14/24 08:00 Temperature 98.6 F 97.7 F Pulse Rate 92 88 Respiratory Rate 18 29 H Blood Pressure 146/89 H 164/81 H Pulse Oximetry 96 97 Oxygen Delivery Method Room Air Room Air BMI result Body Mass Index 53.5 Labs 09/13/24 08:11 Labs: Laboratory Results - last 48 hr 09/13/24 09/13/24 09/13/24 08:11 08:14 11:50 Sodium 142 Potassium 4.4 Chloride 107 Carbon Dioxide 29 Anion Gap 10 L BUN 11 Creatinine 0.97 Estim Creat Clear Calc 165.8 Estimated GFR > 60 POC Glucose 96 124 H Random Glucose 92 Estimat Average Glucose 120 Hemoglobin A1c % 5.8 Calcium 9.0 Total Bilirubin 0.4 AST 28 ALT 36 Alkaline Phosphatase 74 Total Protein 7.2 Albumin 4.5 Triglycerides 123 Cholesterol 159 LDL Cholesterol, Calc 105 H HDL Cholesterol 30 L Vitamin B12 Folate TSH 0.98 Free T4 1.11 09/13/24 09/13/24 09/13/24 16:29 17:11 19:47 Sodium Potassium Chloride Carbon Dioxide Anion Gap BUN Creatinine Estim Creat Clear Calc Estimated GFR POC Glucose 123 H 111 Random Glucose Estimat Average Glucose Hemoglobin A1c % Calcium Total Bilirubin AST ALT Alkaline Phosphatase Total Protein Albumin Triglycerides Cholesterol LDL Cholesterol, Calc HDL Cholesterol Vitamin B12 672 Folate 12.7 TSH Free T4 09/14/24 09/14/24 09/14/24 08:01 12:15 16:58 Sodium Potassium Chloride Carbon Dioxide Anion Gap BUN Creatinine Estim Creat Clear Calc Estimated GFR POC Glucose 98 119 H 120 H Random Glucose Estimat Average Glucose Hemoglobin A1c % Calcium Total Bilirubin AST ALT Alkaline Phosphatase Total Protein Albumin Triglycerides Cholesterol LDL Cholesterol, Calc HDL Cholesterol Vitamin B12 Folate TSH Free T4 Medications Medications Current Medications Acetaminophen (Acetaminophen 325 Mg Tablet) 650 mg PO Q6H PRN PRN Reason: Headache/Pain, Scale 1-10 Al Hydroxide/Mg Hydroxide (Magnesium Hydrox/Alum Hydrox 30 Ml Oral.Susp) 30 ml PO Q6H PRN PRN Reason: Heartburn/Nausea Amlodipine Besylate (Amlodipine Besylate 10 Mg Tablet) 10 mg PO DAILY [facility]; Protocol Last Admin: 09/14/24 09:06 Dose: 10 mg Benzocaine (Throat Lozenge, Medicated Lozenge) 1 lozenge MUCOUS MEM Q2H PRN PRN Reason: Sore Throat Last Admin: 09/14/24 16:32 Dose: 1 lozenge Benztropine Mesylate (Benztropine Mesylate 1 Mg Tablet) 2 mg PO BID [facility] Last Admin: 09/14/24 09:05 Dose: 2 mg Dextrose (Dextrose 50 % 25 Gm/50 Ml Syringe) 25 gm IVPUSH Q15M PRN; Protocol PRN Reason: per Hypoglycemia Standing Ord. Duloxetine HCl (Duloxetine Hcl 60 Mg Capsule.Dr) 60 mg PO DAILY [facility] Last Admin: 09/14/24 09:06 Dose: 60 mg Gabapentin (Gabapentin 300 Mg Capsule) 600 mg PO TID [facility] Last Admin: 09/14/24 14:49 Dose: 600 mg Glucose (Glucose Gel 15 Gm Gel..Gram.) 15 gm PO Q15M PRN; Protocol PRN Reason: per Hypoglycemia Standing Ord. Haloperidol (Haloperidol 5 Mg Tablet) 5 mg PO Q4H PRN PRN Reason: Agitation Last Admin: 09/14/24 13:07 Dose: 5 mg Haloperidol Decanoate (Haloperidol Decanoate 50 Mg/Ml Vial) 200 mg IM Q28D [facility] Hydroxyzine HCl (Hydroxyzine Hcl 25 Mg Tablet) 25 mg PO Q6H PRN PRN Reason: mild anxiety Last Admin: 09/14/24 13:07 Dose: 25 mg Insulin Human Lispro (Insulin Lispro 100 Unit/Ml 3 Ml Vial) 0 unit SUBCUT QIDACHS [facility]; Protocol Last Admin: 09/14/24 17:50 Dose: Not Given Magnesium Hydroxide (Milk Of Magnesia 30 Ml Oral.Susp) 30 ml PO DAILY PRN PRN Reason: Constipation Metformin HCl (Metformin Hcl Er 500 Mg Tab.Er.24h) 500 mg PO BIDWM [facility] Last Admin: 09/14/24 17:26 Dose: 500 mg Multivitamins/Vitamin C (Multivitamin Tablet) 1 tab PO DAILY [facility] Last Admin: 09/14/24 09:05 Dose: 1 tab Naltrexone HCl (Naltrexone Hcl 50 Mg Tablet) 50 mg PO DAILY [facility] Last Admin: 09/14/24 09:05 Dose: 50 mg Nicotine (Nicotine 21 Mg Patch.Td24) 21 mg TRANSDERMA DAILY [facility] Last Admin: 09/14/24 09:04 Dose: 21 mg Nicotine Polacrilex (Nicotine Polacrilex 2 Mg Gum) 2 mg BUCCAL Q2H PRN PRN Reason: Nicotine Cravings Last Admin: 09/13/24 16:58 Dose: 2 mg Non-Formulary Medication (Revefenacin) 175 mcg INHALE DAILY [facility] Omeprazole (Omeprazole 20 Mg Capsule.Dr) 20 mg PO DAILY@0630 [facility] Last Admin: 09/14/24 06:39 Dose: 20 mg Ondansetron HCl (Ondansetron Odt 4 Mg Tab.Rapdis) 4 mg TRANSLINGU Q8H PRN PRN Reason: Nausea and Vomiting Prazosin HCl (Prazosin Hcl 1 Mg Capsule) 2 mg PO BEDTIME [facility]; Protocol Last Admin: 09/13/24 21:18 Dose: 2 mg Thiamine HCl (Thiamine Hcl 100 Mg Tablet) 100 mg PO DAILY [facility] Last Admin: 09/14/24 09:06 Dose: 100 mg Trazodone HCl (Trazodone Hcl 50 Mg Tablet) 50 mg PO BEDTIME MRX1 PRN PRN Reason: Insomnia Last Admin: 09/13/24 23:34 Dose: 50 mg Allergies Allergies Allergy/AdvReac Type Severity Reaction Status Date / Time lisinopril Allergy Unknown Cough Verified 09/06/23 22:58 clonidine AdvReac Unknown Unknown Verified 09/06/23 22:58 Assessment & Plan Assessment & Plan (1) Schizoaffective disorder: Status: Acute Code(s): F25.9 - Schizoaffective disorder, unspecified Plan Admit, CV, 15 minute checks Encourage full milieu Diagnostics as needed Collateral contact Continue current regime, however, increase Benztropine to 2 mg bid as pt is reporting EPS-like sx. Discharge planning. 09/14:Active on unit. showered. pt reports high anxiety but does not know the cause. he reports sleeping well. denies SI/HI/VH/AH. Continue current tx plan. Patient educated on: diagnosis, medication risk/benefits and therapeutic strategies Reason for continued inpatient stay Substantial Risk for: med/psych decompensation Time Spent With Patient Time: Total time managing care of this patient today _20___ minutes.
[2024-09-14 20:00] VITALS: BP 152/84; PULSE 91; RESP 16; TEMP 36.7; O2SAT 99
[2024-09-14 20:10] LABS: Glucose, Whole Blood 120 mg/dL (60-115)
[2024-09-15 08:00] VITALS: BP 164/90; PULSE 88; TEMP 36.6; O2SAT 94
[2024-09-15 08:02] LABS: Glucose, Whole Blood 95 mg/dL (60-115)
[2024-09-15] MEDS: Nicotine 21 MG PATCH.TD24 TRANSDERMA (08:42)
[2024-09-15 10:06] LABS: Folate 12.3 ng/mL (> or = 4.0); Vitamin B12 664 pg/mL (200-900)
[2024-09-15 12:03] LABS: Glucose, Whole Blood 100 mg/dL (60-115)
[2024-09-15] MEDS: Lidocaine 4 % Patch ADH..PATCH 2 PATCH TRANSDERMA (14:10)
[2024-09-15 17:05] LABS: Glucose, Whole Blood 111 mg/dL (60-115)
[2024-09-15 19:52] VITALS: BP 126/79; PULSE 95; TEMP 36.6; O2SAT 97
--- NOTE | 2024-09-15 20:29 | P.PNPSI_ITS ---
Subjective Subjective Date of Service: 09/15/24 Reason For Visit: SI Interim History: Active on unit. Patient reports feeling better today; pt stated, I woke up feeling a little better but I'm still a little anxious . denies SI/HI/VH/AH. Continue current tx plan. Medication Compliance: Yes Side effects from medications: No Attending Groups: No Mental Status Exam Mental Status Exam Patient Appearance: Well Grooomed Patient Orientation: Person, Place, Time and Situation Level of Consciousness: Awake and Alert Patient Behavior: Appropriate and Cooperative Mood Description: Anxious Affect Description: Anxious Patient Cognition Impaired: No Ability to Follow Directions: Good Speech Pattern: Clear Memory Description: Intact Hallucinations: None Delusions: Not Present Thought Process: Intact Thought Content: positive for Intact Diagnostics Vital Signs (24Hr): Vital Signs - 24 hr 09/15/24 08:00 09/15/24 19:52 Temperature 97.8 F 97.8 F Pulse Rate 88 95 Blood Pressure 164/90 H 126/79 Pulse Oximetry 94 97 Oxygen Delivery Method Room Air Room Air BMI result Body Mass Index 53.5 Labs 09/13/24 08:11 Labs: Laboratory Results - last 48 hr 09/14/24 09/14/24 09/14/24 08:01 12:15 16:58 POC Glucose 98 119 H 120 H Vitamin B12 Folate 09/14/24 09/15/24 09/15/24 19:56 07:56 08:28 POC Glucose 120 H 95 Vitamin B12 664 Folate 12.3 09/15/24 09/15/24 11:59 17:01 POC Glucose 100 111 Vitamin B12 Folate Medications Medications Current Medications Acetaminophen (Acetaminophen 325 Mg Tablet) 650 mg PO Q6H PRN PRN Reason: Headache/Pain, Scale 1-10 Last Admin: 09/15/24 08:55 Dose: 650 mg Al Hydroxide/Mg Hydroxide (Magnesium Hydrox/Alum Hydrox 30 Ml Oral.Susp) 30 ml PO Q6H PRN PRN Reason: Heartburn/Nausea Amlodipine Besylate (Amlodipine Besylate 10 Mg Tablet) 10 mg PO DAILY [facility]; Protocol Last Admin: 09/15/24 08:43 Dose: 10 mg Benzocaine (Throat Lozenge, Medicated Lozenge) 1 lozenge MUCOUS MEM Q2H PRN PRN Reason: Sore Throat Last Admin: 09/14/24 19:38 Dose: 1 lozenge Benztropine Mesylate (Benztropine Mesylate 1 Mg Tablet) 2 mg PO BID [facility] Last Admin: 09/15/24 08:43 Dose: 2 mg Dextrose (Dextrose 50 % 25 Gm/50 Ml Syringe) 25 gm IVPUSH Q15M PRN; Protocol PRN Reason: per Hypoglycemia Standing Ord. Duloxetine HCl (Duloxetine Hcl 60 Mg Capsule.Dr) 60 mg PO DAILY [facility] Last Admin: 09/15/24 08:44 Dose: 60 mg Gabapentin (Gabapentin 300 Mg Capsule) 600 mg PO TID [facility] Last Admin: 09/15/24 14:11 Dose: 600 mg Glucose (Glucose Gel 15 Gm Gel..Gram.) 15 gm PO Q15M PRN; Protocol PRN Reason: per Hypoglycemia Standing Ord. Haloperidol (Haloperidol 5 Mg Tablet) 5 mg PO Q4H PRN PRN Reason: Agitation Last Admin: 09/15/24 16:02 Dose: 5 mg Haloperidol Decanoate (Haloperidol Decanoate 50 Mg/Ml Vial) 200 mg IM Q28D [facility] Hydroxyzine HCl (Hydroxyzine Hcl 25 Mg Tablet) 25 mg PO Q6H PRN PRN Reason: mild anxiety Last Admin: 09/14/24 13:07 Dose: 25 mg Insulin Human Lispro (Insulin Lispro 100 Unit/Ml 3 Ml Vial) 0 unit SUBCUT QIDACHS [facility]; Protocol Last Admin: 09/15/24 17:07 Dose: Not Given Lidocaine (Lidocaine 4 % Patch Adh..Patch) 2 patch TRANSDERMA DAILY [facility]; Protocol Last Admin: 09/15/24 14:10 Dose: 2 patch Magnesium Hydroxide (Milk Of Magnesia 30 Ml Oral.Susp) 30 ml PO DAILY PRN PRN Reason: Constipation Metformin HCl (Metformin Hcl Er 500 Mg Tab.Er.24h) 500 mg PO BIDWM [facility] Last Admin: 09/15/24 17:17 Dose: 500 mg Multivitamins/Vitamin C (Multivitamin Tablet) 1 tab PO DAILY [facility] Last Admin: 09/15/24 08:44 Dose: 1 tab Naltrexone HCl (Naltrexone Hcl 50 Mg Tablet) 50 mg PO DAILY [facility] Last Admin: 09/15/24 08:43 Dose: 50 mg Nicotine (Nicotine 21 Mg Patch.Td24) 21 mg TRANSDERMA DAILY [facility] Last Admin: 09/15/24 08:42 Dose: 21 mg Nicotine Polacrilex (Nicotine Polacrilex 2 Mg Gum) 2 mg BUCCAL Q2H PRN PRN Reason: Nicotine Cravings Last Admin: 09/15/24 12:42 Dose: 2 mg Non-Formulary Medication (Revefenacin) 175 mcg INHALE DAILY [facility] Omeprazole (Omeprazole 20 Mg Capsule.Dr) 20 mg PO DAILY@0630 [facility] Last Admin: 09/15/24 06:53 Dose: 20 mg Ondansetron HCl (Ondansetron Odt 4 Mg Tab.Rapdis) 4 mg TRANSLINGU Q8H PRN PRN Reason: Nausea and Vomiting Prazosin HCl (Prazosin Hcl 1 Mg Capsule) 2 mg PO BEDTIME [facility]; Protocol Last Admin: 09/14/24 20:17 Dose: 2 mg Thiamine HCl (Thiamine Hcl 100 Mg Tablet) 100 mg PO DAILY [facility] Last Admin: 09/15/24 08:43 Dose: 100 mg Trazodone HCl (Trazodone Hcl 50 Mg Tablet) 50 mg PO BEDTIME MRX1 PRN PRN Reason: Insomnia Last Admin: 09/14/24 20:16 Dose: 50 mg Allergies Allergies Allergy/AdvReac Type Severity Reaction Status Date / Time lisinopril Allergy Unknown Cough Verified 09/06/23 22:58 clonidine AdvReac Unknown Unknown Verified 09/06/23 22:58 Assessment & Plan Assessment & Plan (1) Schizoaffective disorder: Status: Acute Code(s): F25.9 - Schizoaffective disorder, unspecified Plan Admit, CV, 15 minute checks Encourage full milieu Diagnostics as needed Collateral contact Continue current regime, however, increase Benztropine to 2 mg bid as pt is reporting EPS-like sx. Discharge planning. 09/14:Active on unit. showered. pt reports high anxiety but does not know the cause. he reports sleeping well. denies SI/HI/VH/AH. Continue current tx plan. 09/15: Patient reports feeling better today; pt stated, I woke up feeling a little better but I'm still a little anxious . denies SI/HI/VH/AH. Continue current tx plan. Patient educated on: diagnosis, medication risk/benefits and therapeutic strategies Reason for continued inpatient stay Substantial Risk for: med/psych decompensation Time Spent With Patient Time: Total time managing care of this patient today _20___ minutes.
[2024-09-15 20:34] LABS: Glucose, Whole Blood 108 mg/dL (60-115)
[2024-09-16 07:58] LABS: Glucose, Whole Blood 99 mg/dL (60-115)
[2024-09-16 08:00] VITALS: BP 141/87; PULSE 103; RESP 16; TEMP 36.6; O2SAT 99
[2024-09-16] MEDS: Nicotine 21 MG PATCH.TD24 TRANSDERMA (08:55)
--- NOTE | 2024-09-16 10:13 | HO.PSYCHPN ---
Subjective Subjective Date of Service: 09/16/24 Reason For Visit: SI Subjective Notes: Conditional Voluntary Healthcare Proxy: No Guardianship: No Medical Problems Affecting Mental Status: No Interim History: Reports some improvement. Haldol helps, voices are low. Depression- a little Pt discussed interest in a senior living as he likes being able to be with and interact with others. Reports flank pain- will get urine culture and trial Ibuprofen for pain. Medication Compliance: Yes Side effects from medications: No Attending Groups: Intermittent Review of Systems Acute medical concerns: No Review of Systems Review of Systems Flank pain Mental Status Exam Mental Status Exam Patient Appearance: Fatigued Patient Orientation: Person, Place, Time and Situation Level of Consciousness: Alert Patient Behavior: Talkative and Good Eye Contact Mood Description: Constricted Affect Description: Constricted Patient Cognition Impaired: No Ability to Follow Directions: Good Speech Pattern: Spontaneous Speech Memory Description: Episodic Impaired Hallucinations: Auditory Delusions: Not Present Thought Process: Distracted Thought Content: positive for Circumstantial and positive for Perseveration Depressive Symptoms: Increased Fatigue Judgement: Fair Diagnostics Vital Signs (24Hr): Vital Signs - 24 hr 09/15/24 19:52 09/16/24 08:00 Temperature 97.8 F 97.9 F Pulse Rate 95 103 H Respiratory Rate 16 Blood Pressure 126/79 141/87 H Pulse Oximetry 97 99 Oxygen Delivery Method Room Air BMI result Body Mass Index 53.5 Labs 09/13/24 08:11 Labs: Laboratory Results - last 48 hr 09/14/24 09/14/24 09/14/24 12:15 16:58 19:56 POC Glucose 119 H 120 H 120 H Vitamin B12 Folate 09/15/24 09/15/24 09/15/24 07:56 08:28 11:59 POC Glucose 95 100 Vitamin B12 664 Folate 12.3 09/15/24 09/15/24 09/16/24 17:01 20:24 07:50 POC Glucose 111 108 99 Vitamin B12 Folate Medications Medications Current Medications Acetaminophen (Acetaminophen 325 Mg Tablet) 650 mg PO Q6H PRN PRN Reason: Headache/Pain, Scale 1-10 Last Admin: 09/16/24 08:54 Dose: 650 mg Al Hydroxide/Mg Hydroxide (Magnesium Hydrox/Alum Hydrox 30 Ml Oral.Susp) 30 ml PO Q6H PRN PRN Reason: Heartburn/Nausea Amlodipine Besylate (Amlodipine Besylate 10 Mg Tablet) 10 mg PO DAILY [facility]; Protocol Last Admin: 09/16/24 08:55 Dose: 10 mg Benzocaine (Throat Lozenge, Medicated Lozenge) 1 lozenge MUCOUS MEM Q2H PRN PRN Reason: Sore Throat Last Admin: 09/14/24 19:38 Dose: 1 lozenge Benztropine Mesylate (Benztropine Mesylate 1 Mg Tablet) 2 mg PO BID [facility] Last Admin: 09/16/24 08:55 Dose: 2 mg Duloxetine HCl (Duloxetine Hcl 60 Mg Capsule.Dr) 60 mg PO DAILY [facility] Last Admin: 09/16/24 08:55 Dose: 60 mg Gabapentin (Gabapentin 300 Mg Capsule) 600 mg PO TID [facility] Last Admin: 09/16/24 08:54 Dose: 600 mg Haloperidol (Haloperidol 5 Mg Tablet) 5 mg PO Q4H PRN PRN Reason: Agitation Last Admin: 09/16/24 08:55 Dose: 5 mg Haloperidol Decanoate (Haloperidol Decanoate 50 Mg/Ml Vial) 200 mg IM Q28D [facility] Hydroxyzine HCl (Hydroxyzine Hcl 25 Mg Tablet) 25 mg PO Q6H PRN PRN Reason: mild anxiety Last Admin: 09/14/24 13:07 Dose: 25 mg Lidocaine (Lidocaine 4 % Patch Adh..Patch) 2 patch TRANSDERMA DAILY [facility]; Protocol Last Admin: 09/15/24 14:10 Dose: 2 patch Magnesium Hydroxide (Milk Of Magnesia 30 Ml Oral.Susp) 30 ml PO DAILY PRN PRN Reason: Constipation Metformin HCl (Metformin Hcl Er 500 Mg Tab.Er.24h) 500 mg PO BIDWM [facility] Last Admin: 09/16/24 08:54 Dose: 500 mg Multivitamins/Vitamin C (Multivitamin Tablet) 1 tab PO DAILY [facility] Last Admin: 09/16/24 08:54 Dose: 1 tab Naltrexone HCl (Naltrexone Hcl 50 Mg Tablet) 50 mg PO DAILY [facility] Last Admin: 09/16/24 08:54 Dose: 50 mg Nicotine (Nicotine 21 Mg Patch.Td24) 21 mg TRANSDERMA DAILY [facility] Last Admin: 09/16/24 08:55 Dose: 21 mg Nicotine Polacrilex (Nicotine Polacrilex 2 Mg Gum) 2 mg BUCCAL Q2H PRN PRN Reason: Nicotine Cravings Last Admin: 09/15/24 12:42 Dose: 2 mg Non-Formulary Medication (Revefenacin) 175 mcg INHALE DAILY [facility] Omeprazole (Omeprazole 20 Mg Capsule.Dr) 20 mg PO DAILY@0630 [facility] Last Admin: 09/16/24 06:56 Dose: 20 mg Ondansetron HCl (Ondansetron Odt 4 Mg Tab.Rapdis) 4 mg TRANSLINGU Q8H PRN PRN Reason: Nausea and Vomiting Prazosin HCl (Prazosin Hcl 1 Mg Capsule) 2 mg PO BEDTIME [facility]; Protocol Last Admin: 09/15/24 20:45 Dose: 2 mg Thiamine HCl (Thiamine Hcl 100 Mg Tablet) 100 mg PO DAILY [facility] Last Admin: 09/16/24 08:55 Dose: 100 mg Trazodone HCl (Trazodone Hcl 50 Mg Tablet) 50 mg PO BEDTIME MRX1 PRN PRN Reason: Insomnia Last Admin: 09/15/24 20:47 Dose: 50 mg Allergies Allergies Allergy/AdvReac Type Severity Reaction Status Date / Time lisinopril Allergy Unknown Cough Verified 09/06/23 22:58 clonidine AdvReac Unknown Unknown Verified 09/06/23 22:58 Assessment & Plan Assessment & Plan (1) Schizoaffective disorder: Status: Acute Code(s): F25.9 - Schizoaffective disorder, unspecified Plan Admit, CV, 15 minute checks Encourage full milieu Diagnostics as needed Collateral contact Continue current regime, however, increase Benztropine to 2 mg bid as pt is reporting EPS-like sx. Discharge planning. 09/14:Active on unit. showered. pt reports high anxiety but does not know the cause. he reports sleeping well. denies SI/HI/VH/AH. Continue current tx plan. 09/15: Patient reports feeling better today; pt stated, I woke up feeling a little better but I'm still a little anxious . denies SI/HI/VH/AH. Continue current tx plan. 09/16: Improving. Continue tx Reason for continued inpatient stay Substantial Risk for: rapid decompensation Time Spent With Patient Time: Total time managing care of this patient today ____ minutes.
[2024-09-16] MEDS: Lidocaine 4 % Patch ADH..PATCH 2 PATCH TRANSDERMA (10:37)
[2024-09-16] MEDS: Magnesium Hydrox/Alum Hydrox 30 ML ORAL.SUSP PO (14:31)
[2024-09-16 20:00] VITALS: BP 132/75; PULSE 95; TEMP 37; O2SAT 93
[2024-09-16 20:41] LABS: Glucose, Whole Blood 99 mg/dL (60-115)
[2024-09-17 08:00] VITALS: BP 128/76; PULSE 106; RESP 18; TEMP 36.6; O2SAT 92
[2024-09-17 08:42] LABS: Glucose, Whole Blood 113 mg/dL (60-115)
[2024-09-17 09:09] VITALS: BP 128/77
[2024-09-17] MEDS: Lidocaine 4 % Patch ADH..PATCH 2 PATCH TRANSDERMA (09:15)
[2024-09-17] MEDS: Nicotine 21 MG PATCH.TD24 TRANSDERMA (09:15)
[2024-09-17] MEDS: Throat Lozenge, Medicated LOZENGE 1 LOZENGE MUCOUS MEM (09:57)
--- NOTE | 2024-09-17 17:34 | P.PNPSI_ITS ---
Subjective Subjective Date of Service: 09/17/24 Reason For Visit: SI Subjective Notes: Conditional Voluntary Healthcare Proxy: No Guardianship: No Medical Problems Affecting Mental Status: No Interim History: Pt reporting flank pain. Thus far, urine culture is negative. Lumbar spine xray is negative. Pt reports psychiatric sx are well managed. We reviewed medicine and adjusted gabapentin to 800 mg tid to address back discomfort. Discussed discharge planning. Denies SI,HI, AH, VH. No sx of acute parul, psychosis Pt is visable in milieu and with his peers. I am slowly trying groups . Medication Compliance: Yes Side effects from medications: No (EPS addressed with Benztropine effectively he reports.) Attending Groups: Intermittent Review of Systems as noted in HPI Review of Systems Review of Systems flank, abdominal pain Mental Status Exam Mental Status Exam Patient Appearance: Appropriate Patient Orientation: Person, Place, Time and Situation Level of Consciousness: Alert Patient Behavior: Talkative and Good Eye Contact Mood Description: Constricted Affect Description: Constricted Patient Cognition Impaired: No Ability to Follow Directions: Good Speech Pattern: Spontaneous Speech Memory Description: Episodic Impaired Hallucinations: Auditory (decreasing he reports) Delusions: Not Present Thought Process: Distracted Thought Content: positive for Circumstantial Depressive Symptoms: Increased Fatigue Judgement: Good Diagnostics Vital Signs (24Hr): Vital Signs - 24 hr 09/16/24 20:00 09/17/24 08:00 09/17/24 09:09 Temperature 98.6 F 97.8 F Pulse Rate 95 106 H Respiratory Rate 18 Blood Pressure 132/75 128/76 128/77 Pulse Oximetry 93 92 Oxygen Delivery Method Room Air Room Air BMI result Body Mass Index 53.5 Labs 09/13/24 08:11 Labs: Laboratory Results - last 48 hr 09/15/24 09/16/24 09/16/24 20:24 07:50 20:37 POC Glucose 108 99 99 09/17/24 08:19 POC Glucose 113 Imaging Radiology Impressions: ITS Impressions Lumbar Spine X-Ray 09/17/24 15:45 IMPRESSION: Unremarkable lumbar spine. Electronically signed by: Bryan Pepe MD 09/17/2024 04:03 PM EDT Medications Medications Current Medications Acetaminophen (Acetaminophen 325 Mg Tablet) 650 mg PO Q6H PRN PRN Reason: Headache/Pain, Scale 1-10 Last Admin: 09/16/24 21:19 Dose: 650 mg Al Hydroxide/Mg Hydroxide (Magnesium Hydrox/Alum Hydrox 30 Ml Oral.Susp) 30 ml PO Q6H PRN PRN Reason: Heartburn/Nausea Last Admin: 09/16/24 14:31 Dose: 30 ml Amlodipine Besylate (Amlodipine Besylate 10 Mg Tablet) 10 mg PO DAILY [facility]; Protocol Last Admin: 09/17/24 09:09 Dose: 10 mg Benzocaine (Throat Lozenge, Medicated Lozenge) 1 lozenge MUCOUS MEM Q2H PRN PRN Reason: Sore Throat Last Admin: 09/17/24 09:57 Dose: 1 lozenge Benztropine Mesylate (Benztropine Mesylate 1 Mg Tablet) 2 mg PO BID [facility] Last Admin: 09/17/24 09:10 Dose: 2 mg Cyanocobalamin (Cyanocobalamin (Vitamin B-12) 500 Mcg Tablet) 500 mcg PO DAILY [facility] Duloxetine HCl (Duloxetine Hcl 60 Mg Capsule.Dr) 60 mg PO DAILY [facility] Last Admin: 09/17/24 09:11 Dose: 60 mg Gabapentin (Gabapentin 400 Mg Capsule) 800 mg PO TID [facility] Last Admin: 09/17/24 15:42 Dose: Not Given Haloperidol (Haloperidol 5 Mg Tablet) 5 mg PO Q4H PRN PRN Reason: Agitation Last Admin: 09/16/24 17:42 Dose: 5 mg Haloperidol Decanoate (Haloperidol Decanoate 50 Mg/Ml Vial) 200 mg IM Q28D [facility] Hydroxyzine HCl (Hydroxyzine Hcl 25 Mg Tablet) 25 mg PO Q6H PRN PRN Reason: mild anxiety Last Admin: 09/14/24 13:07 Dose: 25 mg Ibuprofen (Ibuprofen 800 Mg Tablet) 800 mg PO TIDWM [facility] Last Admin: 09/17/24 16:36 Dose: 800 mg Lamotrigine (Lamotrigine 25 Mg Tablet) 25 mg PO DAILY [facility] Last Admin: 09/17/24 09:13 Dose: 25 mg Lidocaine (Lidocaine 4 % Patch Adh..Patch) 2 patch TRANSDERMA DAILY [facility]; Protocol Last Admin: 09/17/24 09:15 Dose: 2 patch Magnesium Hydroxide (Milk Of Magnesia 30 Ml Oral.Susp) 30 ml PO DAILY PRN PRN Reason: Constipation Metformin HCl (Metformin Hcl Er 500 Mg Tab.Er.24h) 500 mg PO BIDWM [facility] Last Admin: 09/17/24 16:36 Dose: 500 mg Multivitamins/Vitamin C (Multivitamin Tablet) 1 tab PO DAILY [facility] Last Admin: 09/17/24 09:13 Dose: 1 tab Naltrexone HCl (Naltrexone Hcl 50 Mg Tablet) 50 mg PO DAILY [facility] Last Admin: 09/17/24 09:13 Dose: 50 mg Nicotine (Nicotine 21 Mg Patch.Td24) 21 mg TRANSDERMA DAILY [facility] Last Admin: 09/17/24 09:15 Dose: 21 mg Nicotine Polacrilex (Nicotine Polacrilex 2 Mg Gum) 2 mg BUCCAL Q2H PRN PRN Reason: Nicotine Cravings Last Admin: 09/15/24 12:42 Dose: 2 mg Non-Formulary Medication (Revefenacin) 175 mcg INHALE DAILY [facility] Omeprazole (Omeprazole 20 Mg Capsule.Dr) 20 mg PO DAILY@0630 [facility] Last Admin: 09/17/24 07:13 Dose: 20 mg Ondansetron HCl (Ondansetron Odt 4 Mg Tab.Rapdis) 4 mg TRANSLINGU Q8H PRN PRN Reason: Nausea and Vomiting Prazosin HCl (Prazosin Hcl 1 Mg Capsule) 2 mg PO BEDTIME [facility]; Protocol Last Admin: 09/16/24 21:21 Dose: 2 mg Thiamine HCl (Thiamine Hcl 100 Mg Tablet) 100 mg PO DAILY [facility] Last Admin: 09/17/24 09:09 Dose: 100 mg Trazodone HCl (Trazodone Hcl 50 Mg Tablet) 50 mg PO BEDTIME MRX1 PRN PRN Reason: Insomnia Last Admin: 09/16/24 21:23 Dose: 50 mg Allergies Allergies Allergy/AdvReac Type Severity Reaction Status Date / Time lisinopril Allergy Unknown Cough Verified 09/06/23 22:58 clonidine AdvReac Unknown Unknown Verified 09/06/23 22:58 Assessment & Plan Assessment & Plan (1) Schizoaffective disorder: Status: Acute Code(s): F25.9 - Schizoaffective disorder, unspecified Plan Admit, CV, 15 minute checks Encourage full milieu Diagnostics as needed Collateral contact Continue current regime, however, increase Benztropine to 2 mg bid as pt is reporting EPS-like sx. Discharge planning. 09/14:Active on unit. showered. pt reports high anxiety but does not know the cause. he reports sleeping well. denies SI/HI/VH/AH. Continue current tx plan. 09/15: Patient reports feeling better today; pt stated, I woke up feeling a little better but I'm still a little anxious . denies SI/HI/VH/AH. Continue current tx plan. 09/16: Improving. Continue tx 09/17: Increase Gabapentin to 800 mg tid Melatonin 3 mg HS prn for insomnia Reason for continued inpatient stay Substantial Risk for: rapid decompensation Time Spent With Patient Time: Total time managing care of this patient today ____ minutes.
[2024-09-17 20:00] VITALS: BP 144/85; PULSE 94; TEMP 36.8; O2SAT 95
[2024-09-17 21:00] VITALS: BP 144/85
[2024-09-17 21:09] LABS: Glucose, Whole Blood 113 mg/dL (60-115)
[2024-09-17 23:13] VITALS: PULSE 80; RESP 22; O2SAT 96
[2024-09-18 08:00] VITALS: BP 136/80; PULSE 90; TEMP 36.2; O2SAT 94
[2024-09-18 08:03] LABS: Glucose, Whole Blood 107 mg/dL (60-115)
[2024-09-18] MEDS: Nicotine 21 MG PATCH.TD24 TRANSDERMA (09:19)
[2024-09-18] MEDS: Lidocaine 4 % Patch ADH..PATCH 2 PATCH TRANSDERMA (09:20)
--- NOTE | 2024-09-18 09:45 | P.PNPSI_ITS ---
Subjective Subjective Date of Service: 09/18/24 Reason For Visit: SI Diagnostics Vital Signs (24Hr): Vital Signs - 24 hr 09/17/24 20:00 09/17/24 21:00 09/17/24 23:13 Temperature 98.2 F Pulse Rate 94 Respiratory Rate 22 H Blood Pressure 144/85 H 144/85 H Pulse Oximetry 95 Oxygen Delivery Method Room Air 09/18/24 08:00 Temperature 97.2 F Pulse Rate 90 Respiratory Rate Blood Pressure 136/80 Pulse Oximetry 94 Oxygen Delivery Method Room Air BMI result Body Mass Index 53.5 Labs 09/13/24 08:11 Labs: Laboratory Results - last 48 hr 09/16/24 09/17/24 09/17/24 20:37 08:19 21:05 POC Glucose 99 113 113 09/18/24 07:52 POC Glucose 107 Imaging Radiology Impressions: ITS Impressions Lumbar Spine X-Ray 09/17/24 15:45 IMPRESSION: Unremarkable lumbar spine. Electronically signed by: Bryan Pepe MD 09/17/2024 04:03 PM EDT Medications Medications Current Medications Acetaminophen (Acetaminophen 325 Mg Tablet) 650 mg PO Q6H PRN PRN Reason: Headache/Pain, Scale 1-10 Last Admin: 09/17/24 20:00 Dose: 650 mg Al Hydroxide/Mg Hydroxide (Magnesium Hydrox/Alum Hydrox 30 Ml Oral.Susp) 30 ml PO Q6H PRN PRN Reason: Heartburn/Nausea Last Admin: 09/16/24 14:31 Dose: 30 ml Amlodipine Besylate (Amlodipine Besylate 10 Mg Tablet) 10 mg PO DAILY [facility]; Protocol Last Admin: 09/18/24 09:24 Dose: 10 mg Benzocaine (Throat Lozenge, Medicated Lozenge) 1 lozenge MUCOUS MEM Q2H PRN PRN Reason: Sore Throat Last Admin: 09/17/24 09:57 Dose: 1 lozenge Benztropine Mesylate (Benztropine Mesylate 1 Mg Tablet) 2 mg PO BID [facility] Last Admin: 09/18/24 09:23 Dose: 2 mg Cyanocobalamin (Cyanocobalamin (Vitamin B-12) 500 Mcg Tablet) 500 mcg PO DAILY [facility] Last Admin: 09/18/24 09:23 Dose: 500 mcg Duloxetine HCl (Duloxetine Hcl 60 Mg Capsule.) 60 mg PO DAILY [facility] Last Admin: 09/18/24 09:24 Dose: 60 mg Gabapentin (Gabapentin 400 Mg Capsule) 800 mg PO TID [facility] Last Admin: 09/18/24 09:24 Dose: 800 mg Haloperidol (Haloperidol 5 Mg Tablet) 5 mg PO Q4H PRN PRN Reason: Agitation Last Admin: 09/16/24 17:42 Dose: 5 mg Haloperidol Decanoate (Haloperidol Decanoate 50 Mg/Ml Vial) 200 mg IM Q28D [facility] Hydroxyzine HCl (Hydroxyzine Hcl 25 Mg Tablet) 25 mg PO Q6H PRN PRN Reason: mild anxiety Last Admin: 09/17/24 20:00 Dose: 25 mg Ibuprofen (Ibuprofen 800 Mg Tablet) 800 mg PO TIDWM [facility] Last Admin: 09/18/24 09:23 Dose: 800 mg Lamotrigine (Lamotrigine 25 Mg Tablet) 25 mg PO DAILY [facility] Last Admin: 09/18/24 09:24 Dose: 25 mg Lidocaine (Lidocaine 4 % Patch Adh..Patch) 2 patch TRANSDERMA DAILY [facility]; Protocol Last Admin: 09/18/24 09:20 Dose: 2 patch Magnesium Hydroxide (Milk Of Magnesia 30 Ml Oral.Susp) 30 ml PO DAILY PRN PRN Reason: Constipation Melatonin (Melatonin 3 Mg Tablet) 3 mg PO BEDTIME PRN PRN Reason: Insomnia Metformin HCl (Metformin Hcl Er 500 Mg Tab.Er.24h) 500 mg PO BIDWM [facility] Last Admin: 09/18/24 09:24 Dose: 500 mg Multivitamins/Vitamin C (Multivitamin Tablet) 1 tab PO DAILY [facility] Last Admin: 09/18/24 09:24 Dose: 1 tab Naltrexone HCl (Naltrexone Hcl 50 Mg Tablet) 50 mg PO DAILY [facility] Last Admin: 09/18/24 09:24 Dose: 50 mg Nicotine (Nicotine 21 Mg Patch.Td24) 21 mg TRANSDERMA DAILY [facility] Last Admin: 09/18/24 09:19 Dose: 21 mg Nicotine Polacrilex (Nicotine Polacrilex 2 Mg Gum) 2 mg BUCCAL Q2H PRN PRN Reason: Nicotine Cravings Last Admin: 09/17/24 20:03 Dose: 2 mg Non-Formulary Medication (Revefenacin) 175 mcg INHALE DAILY [facility] Omeprazole (Omeprazole 20 Mg Capsule.) 20 mg PO DAILY@629 [facility] Last Admin: 09/18/24 06:33 Dose: 20 mg Ondansetron HCl (Ondansetron Odt 4 Mg Tab.Rapdis) 4 mg TRANSLINGU Q8H PRN PRN Reason: Nausea and Vomiting Prazosin HCl (Prazosin Hcl 1 Mg Capsule) 2 mg PO BEDTIME [facility]; Protocol Last Admin: 09/17/24 21:00 Dose: 2 mg Thiamine HCl (Thiamine Hcl 100 Mg Tablet) 100 mg PO DAILY [facility] Last Admin: 09/18/24 09:24 Dose: 100 mg Trazodone HCl (Trazodone Hcl 50 Mg Tablet) 50 mg PO BEDTIME MRX1 PRN PRN Reason: Insomnia Last Admin: 09/16/24 21:23 Dose: 50 mg Allergies Allergies Allergy/AdvReac Type Severity Reaction Status Date / Time lisinopril Allergy Unknown Cough Verified 09/06/23 22:58 clonidine AdvReac Unknown Unknown Verified 09/06/23 22:58 Assessment & Plan Assessment & Plan (1) Schizoaffective disorder: Status: Acute Code(s): F25.9 - Schizoaffective disorder, unspecified Plan Admit, CV, 15 minute checks Encourage full milieu Diagnostics as needed Collateral contact Continue current regime, however, increase Benztropine to 2 mg bid as pt is reporting EPS-like sx. Discharge planning. 09/14:Active on unit. showered. pt reports high anxiety but does not know the cause. he reports sleeping well. denies SI/HI/VH/AH. Continue current tx plan. 09/15: Patient reports feeling better today; pt stated, I woke up feeling a little better but I'm still a little anxious . denies SI/HI/VH/AH. Continue current tx plan. 09/16: Improving. Continue tx 09/17: Increase Gabapentin to 800 mg tid Melatonin 3 mg HS prn for insomnia Time Spent With Patient Time: Total time managing care of this patient today ____ minutes.
[2024-09-18 19:59] LABS: Glucose, Whole Blood 110 mg/dL (60-115)
[2024-09-18 20:00] VITALS: BP 143/76; PULSE 94; RESP 18; TEMP 36.4; O2SAT 95
[2024-09-18 20:49] VITALS: BP 143/76
[2024-09-18 22:35] VITALS: PULSE 77; RESP 18; O2SAT 95
[2024-09-19 08:00] VITALS: BP 169/90; PULSE 104; TEMP 36.6; O2SAT 94
[2024-09-19 08:21] LABS: Glucose, Whole Blood 103 mg/dL (60-115)
[2024-09-19] MEDS: Lidocaine 4 % Patch ADH..PATCH 2 PATCH TRANSDERMA (08:31)
--- NOTE | 2024-09-19 09:19 | P.DS_ITS ---
DS: Providers Provider Date of Service: 09/19/24 Date of admission: 09/12/24 19:34 Date of discharge: 09/19/24 Primary care physician: Unknown Physician Admitting clinician: Manasa Hutchison Attending physician on admission: Dayron Moreau Consults: 09/12/24 20:30 Consult to Hospitalist Routine Comment: Consulting Provider: [facility] [place] [facility] [place] Reason For Exam: New admit H&P Attending physician on discharge: Dayron Moreau Discharging clinician: Manasa Hutchison DS: Diagnosis Discharge Diagnosis (1) Schizoaffective disorder: Status: Acute DS: Medications Discharge Medications Home Medications: Home Medications ?Medication ?Instructions ?Recorded ?Confirmed ondansetron 4 mg disintegrating 4 mg PO Q8H PRN Nausea And Vomiting 09/12/24 09/12/24 tablet revefenacin 175 mcg/3 mL solution 175 mcg inhalation D AILY 09/12/24 09/12/24 for nebulization ammonium lactate 12 % lotion 1 appl topical DAILY 08/2109/13/24 haloperidol decanoate 100 mg/mL 200 mg IM Q4W 09/13/24 intramuscular solution umeclidinium 62.5 mcg/actuation 1 inh inhalation DAILY 09/13/24 09/13/24 blister powder for inhalation (Incruse Ellipta) vit C,U-Gs-wvjkda-lutein-zeaxan 60 1 cap PO DAILY 08/2109/13/24 mg-13.5 mg-15 mg-2 mg-6 mg capsule (Healthy Eyes Lutein-Zeaxanthin) Previous Rx's ?Medication ?Instructions ?Recorded acetaminophen 325 mg tablet 650 mg (2 x 325 mg) PO Q6H PRN 09/18/24 Headache/Pain, Scale 1-10 #0 tabs albuterol sulfate 90 mcg/actuation 1 inh inhalation QI D PRN Wheezing 09/18/24 aerosol inhaler #1 inhaler amlodipine 10 mg tablet 10 mg PO DAILY #30 tabs 08/22 benztropine 2 mg tablet 2 mg PO BID #60 tabs 5 duloxetine 60 mg capsule,delayed 60 mg PO DAILY #30 ca ps 09/18/24 release sprinkle fluticasone furoate 100 1 inh inhalation DAILY #1 in haler 09/18/24 mcg-vilanterol 25 mcg/dose inhalation powder (Breo Ellipta) gabapentin 800 mg tablet 800 mg PO TID #90 tabs 09/18 haloperidol 5 mg tablet 5 mg PO Q4H PRN Agitation #3 0 tabs 09/18/24 hydroxyzine HCl 25 mg tablet 25 mg PO Q6H PRN mild anx iety #30 09/18/24 tabs ibuprofen 800 mg tablet 800 mg PO TIDWM #0 tabs 08/22 lamotrigine 25 mg tablet 25 mg PO DAILY #30 tabs 08/22 lidocaine 4 % topical patch 2 patch transdermal DAILY #60 ea 09/18/24 (Lidocaine Pain Relief) loratadine 10 mg tablet 10 mg PO DAILY #30 tabs 08/22 losartan 25 mg tablet 50 mg (2 x 25 mg) PO DAILY # 60 tabs 09/18/24 melatonin 3 mg tablet 3 mg PO BEDTIME PRN Sleep #3 0 tabs 09/18/24 metformin 500 mg tablet,extended 500 mg PO BID #60 tab s 09/18/24 release 24 hr multivitamin 1 tab PO DAILY #30 tabs 08/22 naltrexone 50 mg tablet 50 mg PO DAILY #30 tabs 08/22 nicotine (polacrilex) 2 mg gum 2 mg buccal Q2H PRN Chavo otine 09/18/24 Cravings #100 ea nicotine 21 mg/24 hr daily 1 patch transdermal DAILY # 30 ea 09/18/24 transdermal patch omeprazole 20 mg capsule,delayed 20 mg PO DAILY@0630 # 30 caps 09/18/24 release prazosin 2 mg capsule 2 mg PO BEDTIME #30 caps thiamine mononitrate (vit B1) 100 100 mg PO DAILY #30 tabs 09/18/24 mg tablet trazodone 50 mg tablet 50 mg PO BEDTIME MRX1 PRN In somnia 09/18/24 #30 tabs Mental Status Exam Mental Status Exam Patient Appearance: Appropriate Patient Orientation: Person, Place, Time and Situation Level of Consciousness: Alert Patient Behavior: Talkative and Good Eye Contact Mood Description: Constricted Affect Description: Constricted Patient Cognition Impaired: No Ability to Follow Directions: Good Speech Pattern: Spontaneous Speech Memory Description: Episodic Impaired Delusions: Not Present Thought Process: Intact Thought Content: positive for Intact and positive for Circumstantial Judgement: Good Data Data Completed and Pending Completed studies during hospitalization [Text1]: 09/13/24 09/13/24 09/13/24 08:11 08:14 11:50 Sodium 142 Potassium 4.4 Chloride 107 Carbon Dioxide 29 Anion Gap 10 L BUN 11 Creatinine 0.97 Estim Creat Clear Calc 165.8 Estimated GFR > 60 POC Glucose 96 124 H Random Glucose 92 Estimat Average Glucose 120 Hemoglobin A1c % 5.8 Calcium 9.0 Total Bilirubin 0.4 AST 28 ALT 36 Alkaline Phosphatase 74 Total Protein 7.2 Albumin 4.5 Triglycerides 123 Cholesterol 159 LDL Cholesterol, Calc 105 H HDL Cholesterol 30 L Vitamin B12 Folate TSH 0.98 Free T4 1.11 09/13/24 09/13/24 09/13/24 16:29 17:11 19:47 Sodium Potassium Chloride Carbon Dioxide Anion Gap BUN Creatinine Estim Creat Clear Calc Estimated GFR POC Glucose 123 H 111 Random Glucose Estimat Average Glucose Hemoglobin A1c % Calcium Total Bilirubin AST ALT Alkaline Phosphatase Total Protein Albumin Triglycerides Cholesterol LDL Cholesterol, Calc HDL Cholesterol Vitamin B12 672 Folate 12.7 TSH Free T4 09/14/24 09/14/24 09/14/24 08:01 12:15 16:58 Sodium Potassium Chloride Carbon Dioxide Anion Gap BUN Creatinine Estim Creat Clear Calc Estimated GFR POC Glucose 98 119 H 120 H Random Glucose Estimat Average Glucose Hemoglobin A1c % Calcium Total Bilirubin AST ALT Alkaline Phosphatase Total Protein Albumin Triglycerides Cholesterol LDL Cholesterol, Calc HDL Cholesterol Vitamin B12 Folate TSH Free T4 09/14/24 09/15/24 09/15/24 19:56 07:56 08:28 Sodium Potassium Chloride Carbon Dioxide Anion Gap BUN Creatinine Estim Creat Clear Calc Estimated GFR POC Glucose 120 H 95 Random Glucose Estimat Average Glucose Hemoglobin A1c % Calcium Total Bilirubin AST ALT Alkaline Phosphatase Total Protein Albumin Triglycerides Cholesterol LDL Cholesterol, Calc HDL Cholesterol Vitamin B12 664 Folate 12.3 TSH Free T4 09/15/24 09/15/24 09/15/24 11:59 17:01 20:24 Sodium Potassium Chloride Carbon Dioxide Anion Gap BUN Creatinine Estim Creat Clear Calc Estimated GFR POC Glucose 100 111 108 Random Glucose Estimat Average Glucose Hemoglobin A1c % Calcium Total Bilirubin AST ALT Alkaline Phosphatase Total Protein Albumin Triglycerides Cholesterol LDL Cholesterol, Calc HDL Cholesterol Vitamin B12 Folate TSH Free T4 09/16/24 09/16/24 09/17/24 07:50 20:37 08:19 Sodium Potassium Chloride Carbon Dioxide Anion Gap BUN Creatinine Estim Creat Clear Calc Estimated GFR POC Glucose 99 99 113 Random Glucose Estimat Average Glucose Hemoglobin A1c % Calcium Total Bilirubin AST ALT Alkaline Phosphatase Total Protein Albumin Triglycerides Cholesterol LDL Cholesterol, Calc HDL Cholesterol Vitamin B12 Folate TSH Free T4 09/17/24 09/18/24 09/18/24 21:05 07:52 19:53 Sodium Potassium Chloride Carbon Dioxide Anion Gap BUN Creatinine Estim Creat Clear Calc Estimated GFR POC Glucose 113 107 110 Random Glucose Estimat Average Glucose Hemoglobin A1c % Calcium Total Bilirubin AST ALT Alkaline Phosphatase Total Protein Albumin Triglycerides Cholesterol LDL Cholesterol, Calc HDL Cholesterol Vitamin B12 Folate TSH Free T4 09/19/24 08:16 Sodium Potassium Chloride Carbon Dioxide Anion Gap BUN Creatinine Estim Creat Clear Calc Estimated GFR POC Glucose 103 Random Glucose Estimat Average Glucose Hemoglobin A1c % Calcium Total Bilirubin AST ALT Alkaline Phosphatase Total Protein Albumin Triglycerides Cholesterol LDL Cholesterol, Calc HDL Cholesterol Vitamin B12 Folate TSH Free T4 09/16/24 15:26 Urine clean catch - Clean Catch Midstream Urine Culture - Fi nal No growth. Imaging Diagnostic Imaging Impressions Lumbar Spine X-Ray 09/17/24 15:45 IMPRESSION: Unremarkable lumbar spine. Electronically signed by: Bryan Pepe MD 09/17/2024 04:03 PM EDT RP DS: Summary Hospital Course Hospital Course: Admission to adult psychiatry for exacerbation of schizoaffective disorder. Medications were evaluated and adjusted. Hospitalist team worked with pt on diabetes and hypertension. Full milieu was offered to support pt in strengthening of coping skills. Upon discharge, pt will require usp (VNA) to assist with medication management and chronic disease management. Status at Discharge Functional status at discharge: independent ambulation Overall status at discharge: patient is progressing back to baseline Time Spent with Patient Time attestation: Total time managing care of this patient today ____ minutes. Time spent: Less than 30 minutes Discharge Plan Discharge Anticipated Discharge Date/Time: 09/19/24 12:00 Patient Disposition: Home, Self-Care Discharge Diagnosis: Schizoaffective Disorder DM HTN COPD GERD Referrals: Ariana Kee [Other] - 09/23/24 Referral Note: A referral has been sent on your behalf. Please follow up within the next few days to set up a tour. The [employer] offers job placement and support as well as can help with things like continuing education and job skill building and offer a social component. [facility] [Other] - 1 Week Referral Note: [facility] Visiting RN will be taking over from [facility]. The RN from [facility] will be calling to set up a time to see you. Physician,Homero Baker [Primary Care Provider, Medical] - 09/25/24 8:30 am Referral Note: [address] [phone] Appointment 09/25/2024 at 0830 Discharge Medications: New acetaminophen 325 mg Tablet 650 mg PO Q6H PRN (Reason: Headache/Pain, Scale 1-10) Qty: 0 0RF haloperidol 5 mg Tablet 5 mg PO Q4H PRN (Reason: Agitation) Qty: 30 0RF trazodone 50 mg Tablet 50 mg PO BEDTIME MRX1 PRN (Reason: Insomnia) Qty: 30 0RF ibuprofen 800 mg Tablet 800 mg PO TIDWM Qty: 0 0RF naltrexone 50 mg Tablet 50 mg PO DAILY Qty: 30 0RF hydroxyzine HCl 25 mg Tablet 25 mg PO Q6H PRN (Reason: mild anxiety) Qty: 30 0RF lidocaine [Lidocaine Pain Relief] 4 % Adhesive Patch,Medicated 2 patch transdermal DAILY Qty: 60 0RF Protocol: Apply to: Apply to: back omeprazole 20 mg Capsule,Delayed Release(Dr/Ec) 20 mg PO DAILY@0630 Qty: 30 0RF thiamine mononitrate (vit B1) 100 mg Tablet 100 mg PO DAILY Qty: 30 0RF benztropine 2 mg tablet 2 mg PO BID Qty: 60 0RF gabapentin 800 mg tablet 800 mg PO TID Qty: 90 0RF Continued ondansetron 4 mg Tablet,Disintegrating 4 mg PO Q8H PRN (Reason: Nausea And Vomiting) revefenacin 175 mcg/3 mL Solution For Nebulization 175 mcg INHALATION DAILY ammonium lactate 12 % Lotion 1 appl TOPICAL DAILY Incruse Ellipta 62.5 mcg/actuation Blister With Device 1 inh INHALATION DAILY Healthy Eyes Lutein-Zeaxanthin 60 mg-13.5 mg- 15 mg-2 mg-6 mg capsule 1 cap PO DAILY haloperidol decanoate 100 mg/mL Solution 200 mg IM Q4W multivitamin Tablet 1 tab PO DAILY Qty: 30 0RF nicotine (polacrilex) 2 mg Gum 2 mg buccal Q2H PRN (Reason: Nicotine Cravings) Qty: 100 0RF melatonin 3 mg Tablet 3 mg PO BEDTIME PRN (Reason: Sleep) Qty: 30 0RF lamotrigine 25 mg Tablet 25 mg PO DAILY Qty: 30 0RF amlodipine 10 mg tablet 10 mg PO DAILY Qty: 30 0RF losartan 25 mg Tablet 50 mg PO DAILY Qty: 60 0RF nicotine 21 mg/24 hr Patch 24 Hour 1 patch TRANSDERMAL DAILY Qty: 30 0RF albuterol sulfate 90 mcg/actuation Hfa Aerosol Inhaler 1 inh INHALATION QID PRN (Reason: Wheezing) Qty: 1 0RF metformin 500 mg tablet extended release 24 hr 500 mg PO BID Qty: 60 0RF loratadine 10 mg Tablet 10 mg PO DAILY Qty: 30 0RF prazosin 2 mg Capsule 2 mg PO BEDTIME Qty: 30 0RF fluticasone furoate-vilanterol [Breo Ellipta] 100-25 mcg/dose Blister With Device 1 inh INHALATION DAILY Qty: 1 0RF duloxetine 60 mg Capsule, Delayed Rel Sprinkle 60 mg PO DAILY Qty: 30 0RF Discontinued benztropine 0.5 mg tablet 1 mg PO BID gabapentin [Neurontin] 100 mg capsule 600 mg PO TID hydroxyzine HCl 25 mg tablet 50 mg PO QID PRN (Reason: anxiety) omeprazole 40 mg Capsule,Delayed Release(Dr/Ec) 40 mg PO DAILY prazosin 5 mg Capsule 10 mg PO BEDTIME trazodone 100 mg tablet 100 mg PO BEDTIME haloperidol 20 mg tablet 20 mg PO BEDTIME Discharge Orders: Discharge Order (Routine); Ordered 09/19/24 Ordered By: Manasa Hutchison Diet: Advance to usual diet Activity on Discharge: As tolerated Stand Alone Forms: Patient Portal Discharge page, Community Support Print Language: Kinyarwanda Care Plan Goals: Mood and Behavioral Stabilization Health Concerns: Mood and Behavioral Stabilization Plan of Treatment: Take medications as directed Attend scheduled appointments VNA for medication management and chronic disease management Assessment: Denies SI,HI,AH,VH No sx of acute psychosis or parul Agrees with the plan of care
== END 2024-09-19 09:55 | disposition home or self-care (01) | DRG 885 ==
PROVIDERS: Nurse Practitioner Psychiatric/Mental Health; Admitting Provider Psychiatry & Neurology Psychiatry; Visit Provider Clinical Nurse Specialist Psychiatric/Mental Health, Adult
DX: F25.9 Schizoaffective disorder, unspecified (principal); R45.851 Suicidal ideations; E11.9 Type 2 diabetes mellitus without complications; F17.210 Nicotine dependence, cigarettes, uncomplicated; I10 Essential (primary) hypertension; K21.9 Gastro-esophageal reflux disease without esophagitis; G47.33 Obstructive sleep apnea (adult) (pediatric); Z71.6 Tobacco abuse counseling; Z79.84 Long term (current) use of oral hypoglycemic drugs; Z79.51 Long term (current) use of inhaled steroids; Z79.899 Other long term (current) drug therapy
CPT/HCPCS: 36415; 72110; 80053; 80061; 82607; 82746; 82947; 83036; 84439; 84443; 87086; 94660

== ENCOUNTER 2024-09-12 19:34 | Outpatient (BNV) | payer OTHER, SELFPAY | END 2024-09-17 15:45 | PROVIDERS: Admitting Provider Psychiatry & Neurology Psychiatry; Visit Provider Radiology Diagnostic Radiology | DX: M54.9 Dorsalgia, unspecified (principal) | CPT/HCPCS: 72110 ==

== ENCOUNTER → 2024-09-12 19:34 | Outpatient (BNV) | payer OTHER, SELFPAY | PROVIDERS: Admitting Provider Psychiatry & Neurology Psychiatry; Visit Provider Clinical Nurse Specialist Psychiatric/Mental Health, Adult | DX: F25.1 Schizoaffective disorder, depressive type (principal) | CPT/HCPCS: 90792; 99231; 99232 ==

== ENCOUNTER → 2024-09-12 19:34 | Outpatient (BNV) | payer OTHER, SELFPAY | PROVIDERS: Admitting Provider Psychiatry & Neurology Psychiatry; Visit Provider Nurse Practitioner Family | DX: E11.9 Type 2 diabetes mellitus without complications (principal) | CPT/HCPCS: 99221 ==

== ENCOUNTER 2025-01-06 14:44 | Inpatient (IN) | payer OTHER, SELFPAY ==
--- NOTE | ~2025-01-06 | XR_ITS ---
EXAMINATION: XR ABDOMEN KUB CLINICAL INDICATION: constipation COMPARISON: None available. TECHNIQUE: AP view of the abdomen. FINDINGS: Four images are submitted showing portions of the abdomen/pelvis, due to patient's body habitus. Underpenetrated technique and mild motion limit evaluation for small opacities and lucencies. Suggestion of moderate amount of stool content at the expected location of the ascending, transverse and descending colons. Probable small amount of stool mixed with gas overlying the sacrum in one of the images represents intrarectal content. No obvious evidence of bowel distention. XR/XR KUB IMPRESSION: Limited examination. No obvious findings to suggest bowel obstruction. Moderate stool load at the expected location of the colonic loops. Electronically signed by: Carmen Chowdhury MD 01/22/2025 02:17 PM [facility]
--- NOTE | ~2025-01-06 | XR_ITS ---
CLINICAL HISTORY: congestion 4 view sinuses Comparison: None provided Findings: No acute fractures. Paranasal sinuses and mastoids are clear. No radiopaque foreign body. IMPRESSION: 1. No acute findings This document has been electronically signed by: Carie Rivers MD on 01/09/2025 18:34:40
--- NOTE | ~2025-01-06 | XR_ITS ---
EXAMINATION: XR CHEST CLINICAL INFORMATION: Hypoxia COMPARISON: 09/03/2023. TECHNIQUE: 2 views of the chest were obtained. FINDINGS: The cardiac, hilar, and mediastinal contours are normal. There are low lung volumes bilaterally with bronchovascular crowding present. Within these confines the lungs are otherwise clear. There is no pneumothorax or pleural effusion. There is no focal osseous or soft tissue abnormality. XR/XR chest 2V IMPRESSION: Low lung volumes without definite active disease. Electronically signed by: Foster Mckinnon MD 01/08/2025 02:37 PM EST
--- NOTE | 2025-01-06 14:53 | ED_ITS ---
HPI - Psych General Chief Complaint: Psychiatric Symptoms Stated Complaint: SEC 12,AUD HALLUCINATIONS TO HURT SELF,CALM/COOP Time Seen by Provider: 01/06/25 14:53 History of Present Illness ED Provider: Fidelina Dinero HPI Narrative: 34-year-old male with a medical history significant for diabetes type 2, hypertension, schizoaffective disorder, alcohol abuse, substance use presents to the ED via EMS for evaluation of suicidal statements. He was sent in on a section 12 from [facility]. The patient was discharged from [facility] on Monday. He reportedly got back to his home and noted that there were homeless people residing in it. He endorses hearing voices in his head that are telling him to kill himself. Denies any plan. Denies any homicidal ideation. Does endorse feeling very depressed and anxious. Reports that he drank alcohol yesterday, but did not have any today. Also reports daily marijuana use, denies other substance use. Denies chest pain or pressure, shortness of breath, abdominal pain, nausea or vomiting, fever or chills. Related Data Home Medications ?Medication ?Instructions ?Recorded ?Confirmed ondansetron 4 mg disintegrating 4 mg PO Q8H PRN Nausea And Vomiting 09/12/24 01/06/25 tablet ammonium lactate 12 % lotion 1 appl topical DAILY 08/2101/06/25 umeclidinium 62.5 mcg/actuation 1 inh inhalation DAILY 09/13/24 01/07/25 blister powder for inhalation (Incruse Ellipta) duloxetine 30 mg capsule,delayed 90 mg PO DAILY 01/07/25 release haloperidol 10 mg tablet 10 mg PO BEDTIME 01/07/25 hydroxyzine pamoate 50 mg capsule 50 mg PO Q6-8H PRN A nxiety 01/07/25 01/07/25 metoprolol succinate 50 mg 50 mg PO DAILY 01/07/25 tablet,extended release 24 hr prazosin 2 mg capsule 2 mg PO BID 01/07/25 5 trazodone 100 mg tablet 100 mg PO BEDTIME 01/07/25 1 03/09/24 Previous Rx's ?Medication ?Instructions ?Recorded acetaminophen 325 mg tablet 650 mg (2 x 325 mg) PO Q6H PRN 09/18/24 Headache/Pain, Scale 1-10 #0 tabs albuterol sulfate 90 mcg/actuation 1 inh inhalation QI D PRN Wheezing 09/18/24 aerosol inhaler #1 inhaler amlodipine 10 mg tablet 10 mg PO DAILY #30 tabs 08/22 gabapentin 800 mg tablet 800 mg PO TID #90 tabs 09/18 lamotrigine 25 mg tablet 25 mg PO DAILY #30 tabs 08/22 loratadine 10 mg tablet 10 mg PO DAILY #30 tabs 08/22 losartan 25 mg tablet 50 mg (2 x 25 mg) PO DAILY # 60 tabs 09/18/24 melatonin 3 mg tablet 3 mg PO BEDTIME PRN Sleep #3 0 tabs 09/18/24 metformin 500 mg tablet,extended 500 mg PO BID #60 tab s 09/18/24 release 24 hr multivitamin 1 tab PO DAILY #30 tabs 08/22 nicotine (polacrilex) 2 mg gum 2 mg buccal Q2H PRN Chavo otine 09/18/24 Cravings #100 ea nicotine 21 mg/24 hr daily 1 patch transdermal DAILY # 30 ea 09/18/24 transdermal patch omeprazole 20 mg capsule,delayed 20 mg PO DAILY@0630 # 30 caps 09/18/24 release thiamine mononitrate (vit B1) 100 100 mg PO DAILY #30 tabs 09/18/24 mg tablet cyclobenzaprine 10 mg tablet 10 mg PO TID PRN back mus koko spasm 09/19/24 30 days #60 tabs tirzepatide 2.5 mg/0.5 mL 2.5 mg (0.5 mL) subcut QWEEK #5 mL 01/07/25 subcutaneous pen injector (Onesimounmyah) Allergies Allergy/AdvReac Type Severity Reaction Status Date / Time lisinopril Allergy Unknown Cough Verified 01/06/25 15:02 clonidine AdvReac Unknown Unknown Verified 01/06/25 15:02 Review of Systems 2 Review of Systems: Yes all other systems are reviewed and are negative PMFSH Past Medical History Medical History (Updated 01/08/25 @ 13:54 by Marcella Crowder DNP) Cannabis use disorder Alcohol use disorder Morbid obesity Medical clearance for psychiatric admission Schizoaffective disorder Diabetes HTN (hypertension) Social History Social History Household Members: None Housing: Apartment Do you presently have visiting nurse or other home services: Yes ([facility] for medication management and BP monitoring) Alcohol intake: current Alcohol intake frequency: 3 or more drinks per day Alcohol type: hard liquor Patient Tobacco Use Status: Current everyday Tobacco user Tobacco use type: Cigarette Cigarette Packs Per Day: 1 Cigarettes Per Day: 20.0 Years Smoked: 15 Smoked in Last 30 Days: Yes e-Cigarette/Vaping Use: Never Used Patient Interested in Nicotine Replacement: Yes Patient Given Instructions on How to Stop Smoking: No Second Hand Smoke Exposure: No Substance Use Type: Marijuana Currently Displaying Signs/Symptoms of Drug Intoxication Withdrawal: No Have you been hit, kicked, punched, or otherwise hurt by someone within the past year? If so, by whom?: No Do you feel safe in your current relationship?: No Current Relationship Is there a partner from a previous relationship who is making you feel unsafe now?: No Are you made to feel afraid or neglected: No Spiritual Healthcare Practices: None Christianity Healthcare Practices: None Cultural Healthcare Practices: None Advance Directives: No Advance Directives Information Provided: No Do you have thoughts of harming others: None Do you have a plan to hurt others: No Plan Recently lost weight without trying: No How much weight loss: Not applicable Eating poorly because of decreased appetite: No Nutrition screen score: 0 Nutrition Risks: No Nutritional Risk Poor oral hygiene: No service: No Sexual orientation: Straight/Heterosexual Physical Exam 2 Vital Signs: Vital Signs: Last Vital Signs Temp 98.4 F 01/13/25 08:00 Pulse 97 01/13/25 09:10 Resp 20 01/13/25 08:00 BP 125/80 01/13/25 09:14 Pulse Ox 94 01/13/25 08:00 O2 Del Method Room Air 01/13/25 08:00 BMI result Body Mass Index 45.3 Const: General: cooperative, healthy appearing, comfortable, no acute distress, well developed, alert, awake and Physically active Nutritional Appearance: well nourished Orientation/consciousness: patient oriented x3 HEENT: Head: Yes normocephalic and Yes atraumatic Ears: hearing grossly normal bilaterally General nose exam: No nasal discharge present Face and sinus: Yes normal facial exam Mouth: lip normal Eyes: General: appearance normal, both eyes and all related structures E yelids: Yes eyelids normal Conjunctivae: conjunctivae normal Sclerae: s clerae normal Neck: Neck: Yes full ROM and Yes no lymphadenopathy Lymphatic: no lymphadenopathy noted Chest: Chest palpation & inspection: normal inspection of the chest and normal palpation of entire chest wall Resp: Effort & Inspection: normal respiratory effort and able to speak in complete sentences Auscultation: clear to auscultation bilaterally Cardio: Rate: regular rate Rhythm: regular rhythm Heart sounds: S1 normal heart sound present, S2 normal heart sound present and no murmurs P eripheral pulses: Peripheral pulses 2+ throughout Back/Spine/Pelvis: Cervical Spine: cervical ROM normal Skin: General skin exam: no rashes or lesions noted Wounds: no wounds H air: normal Nails: normal Neuro: General: patient oriented x3, gait normal and moves all extremities Cognition (Neuro): normal cognition Gait exam (Neuro): Normal gait present Extrem: General: Yes full ROM Psych: Appearance: well kempt Mental Status: mental status grossly normal Speech and movement: Clear speech present Affect: Anxious affect present Attitude: cooperative Thought process: Normal thought process present T hought content: Suicidality present, delusions and Depressive thoughts present Course Reevaluation(s) Reevaluation #1: Time: 05:30 Date: 01/07/25 Provider: Bart Alvarado MD Patient in physician observation for psychiatric evaluation.? No acute events reported overnight. No current complaints. VS stable.? Patient is in bed search status with CARE team re-evaluation in the [facility]. patient's STI screen was positive for gonorrhea, negative for chlamydia. Gonorrhea he will be treated with ceftriaxone 500 mg IM. I also given Flagyl 2 g orally to treat for Trichomonas empirically. I will add syphilis and HIV testing. Reevaluation #2: Time: 12:01 Date: 01/07/25 Provider: Ofelia Grossman DO Physician observation ended at 12:01 Patient to be admitted as inpatient to psychiatry. Medications Administered Generic Name Dose Route Start Last Admin Trade Name Freq PRN Reason Stop Dose Admin Acetaminophen 650 mg 01/07/25 07:49 01/10/25 11:23 Acetaminophen 325 Mg Tablet PO 650 mg Q6H PRN Administration Headache/Pain, Scale 1-10 Amlodipine Besylate 10 mg 01/07/25 09:00 01/13/25 09:11 Amlodipine Besylate 10 Mg Tablet PO 10 mg DAILY EDWIGE Administration Protocol Benztropine Mesylate 1 mg 01/10/25 21:00 01/13/25 09:07 Benztropine Mesylate 1 Mg Tablet PO 1 mg BID EDWIGE Administration Cyclobenzaprine HCl 10 mg 01/11/25 15:00 01/13/25 09:08 Cyclobenzaprine Hcl 10 Mg Tablet PO 10 mg TID EDWIGE Administration Docusate Sodium 100 mg 01/08/25 11:10 01/13/25 09:29 Docusate Sodium 100 Mg Capsule PO 100 mg BID PRN Administration Constipation Duloxetine HCl 30 mg 01/09/25 09:00 01/13/25 09:06 Duloxetine Hcl 30 Mg Capsule.Dr PO 30 mg DAILY EDWIGE Administration Folic Acid 1 mg 01/08/25 09:00 01/13/25 09:07 Folic Acid 1 Mg Tablet PO 1 mg DAILY EDWIGE Administration Gabapentin 600 mg 01/09/25 21:00 01/13/25 09:09 Gabapentin 300 Mg Capsule PO 600 mg TID EDWIGE Administration Haloperidol 10 mg 01/10/25 21:00 01/13/25 09:10 Haloperidol 5 Mg Tablet PO 10 mg BID EDWIGE Administration Haloperidol 5 mg 01/10/25 17:59 01/13/25 10:18 Haloperidol 5 Mg Tablet PO 5 mg Q6H PRN Administration Psychosis Hydroxyzine HCl 50 mg 01/07/25 07:49 01/13/25 10:18 Hydroxyzine Hcl 25 Mg Tablet PO 50 mg Q6H PRN Administration mild anxiety Ibuprofen 600 mg 01/11/25 11:56 01/12/25 06:37 Ibuprofen 600 Mg Tablet PO 600 mg Q8H PRN Administration back pain Lactic Acid 1 appl 01/07/25 09:00 01/13/25 09:20 Ammonium Lactate 12 % Lotion 226 Gm Bottle TOPICAL 1 appl DAILY EDWIGE Administration Protocol Lamotrigine 25 mg 01/07/25 09:00 01/13/25 09:07 Lamotrigine 25 Mg Tablet PO 25 mg DAILY EDWIGE Administration Loratadine 10 mg 01/07/25 09:00 01/13/25 09:08 Loratadine 10 Mg Tablet PO 10 mg DAILY EDWIGE Administration Losartan Potassium 50 mg 01/07/25 09:00 01/13/25 09:14 Losartan Potassium 50 Mg Tablet PO 50 mg DAILY EDWIGE Administration Protocol Metformin HCl 500 mg 01/07/25 09:00 01/13/25 09:10 Metformin Hcl Er 500 Mg Tab.Er.24h PO 500 mg BID EDWIGE Administration Metoprolol Succinate 50 mg 01/08/25 09:00 01/13/25 09:10 Metoprolol Succinate Er 50 Mg Tab.Er.24h PO 50 mg DAILY EDWIGE Administration Protocol Moxifloxacin HCl 1 drop 01/10/25 10:30 01/13/25 09:08 Moxifloxacin Hcl 0.5 % Oph Francia 3 Ml Drpbtl EYE-BOTH 01/17/25 10:30 1 drop TID EDWIGE Administration Multivitamins/Vitamin C 1 tab 01/08/25 09:00 01/13/25 09:08 Multivitamin Tablet PO 1 tab DAILY EDWIGE Administration Naltrexone HCl 50 mg 01/09/25 09:15 01/13/25 09:09 Naltrexone Hcl 50 Mg Tablet PO 50 mg DAILY EDWIGE Administration Nicotine 21 mg 01/07/25 09:00 01/13/25 09:12 Nicotine 21 Mg Patch.Td24 TRANSDERMA 21 mg DAILY EDWIGE Administration Nicotine Polacrilex 4 mg 01/07/25 11:45 01/13/25 09:29 Nicotine Polacrilex 2 Mg Gum BUCCAL 4 mg Q2H PRN Administration Nicotine Cravings Pt Own (Tirzepatide 2.5 mg 01/07/25 17:00 01/07/25 15:59 [Mounjaro] 2.5 Mg/0. SUBCUT 2.5 mg 5 Ml Pen Injector) Q7D EDWIGE Administration Omeprazole 20 mg 01/07/25 08:00 01/13/25 06:02 Omeprazole 20 Mg Capsule.Dr PO 20 mg DAILY@0630 EDWIGE Administration Ondansetron HCl 4 mg 01/07/25 07:49 01/11/25 12:34 Ondansetron Odt 4 Mg Tab.Rapdis TRANSLINGU 4 mg Q8H PRN Administration Nausea and Vomiting Polyethylene Glycol 17 gm 01/09/25 09:00 01/13/25 09:20 Polyethylene Glycol 3350 17 Gm Powd.Pack PO 17 gm DAILY EDWIGE Administration Prazosin HCl 4 mg 01/08/25 21:00 01/12/25 21:43 Prazosin Hcl 1 Mg Capsule PO 4 mg BEDTIME EDWIGE Administration Protocol Thiamine HCl 100 mg 01/08/25 09:00 01/13/25 09:22 Thiamine Hcl 100 Mg Tablet PO 100 mg DAILY EDWIGE Administration Tiotropium Flanagan 2 puff 01/07/25 10:00 01/13/25 09:11 Tiotropium Flanagan 2.5 Mcg 1 Puff/2.5 Mcg Mist.Inhal INHALE 2 puff RDAILY EDWIGE Administration Trazodone HCl 100 mg 01/07/25 21:00 01/12/25 21:44 Trazodone Hcl 50 Mg Tablet PO 100 mg BEDTIME EDWIGE Administration Discontinued Medications Generic Name Dose Route Start Last Admin Trade Name Freq PRN Reason Stop Dose Admin Ceftriaxone Sodium 500 mg/ 0 mg 01/07/25 05:33 01/07/25 06:06 Lidocaine HCl 1 ml IM 01/07/25 05:34 350 kit ONCE ONE Administration Cyclobenzaprine HCl 10 mg 01/07/25 07:49 01/11/25 09:07 Cyclobenzaprine Hcl 10 Mg Tablet PO 10 mg TID PRN Administration back muscle spasm Erythromycin 1 cm 01/09/25 21:00 01/10/25 08:52 Erythromycin Base 0.5% Oph Oin 1 Gm Tube EYE-BOTH 1 cm TID EDWIGE Administration Gabapentin 800 mg 01/07/25 09:00 01/09/25 15:17 Gabapentin 400 Mg Capsule PO 800 mg TID EDWIGE Administration Haloperidol 10 mg 01/07/25 21:00 01/09/25 21:14 Haloperidol 5 Mg Tablet PO 10 mg BEDTIME EDWIGE Administration Haloperidol 0.25 mg 01/08/25 14:39 01/08/25 17:54 Haloperidol 0.5 Mg Tablet PO 0.25 mg Q6H PRN Administration Psychosis Influenza Virus Vaccine 0.5 ml 01/07/25 13:47 01/07/25 16:01 Flu Vacc [id number](6mo Up)/Pf 0.5 Ml Syringe IM 01/07/25 13:48 0.5 ml .ONCE ONE Administration Lorazepam 1 mg 01/07/25 14:53 01/08/25 13:07 Lorazepam 1 Mg Tablet PO 1 mg Q2H PRN Administration ciwa 6-10 Lorazepam 2 mg 01/07/25 14:53 01/07/25 18:30 Lorazepam 1 Mg Tablet PO 2 mg Q2H PRN Administration ciwa 11+ Lorazepam 0.5 mg 01/08/25 14:41 01/10/25 00:12 Lorazepam 0.5 Mg Tablet PO 0.5 mg Q4H PRN Administration Anxiety Metronidazole 2,000 mg 01/07/25 05:34 01/07/25 06:04 Metronidazole 500 Mg Tablet PO 01/07/25 05:35 2,000 mg ONCE ONE Administration Multivitamins/Vitamin C 1 tab 01/07/25 09:00 01/07/25 09:11 Multivitamin Tablet PO 1 tab DAILY EDWIGE Administration Nicotine Polacrilex 2 mg 01/07/25 07:49 01/07/25 09:17 Nicotine Polacrilex 2 Mg Gum BUCCAL 2 mg Q2H PRN Administration Nicotine Cravings Prazosin HCl 2 mg 01/07/25 09:00 01/08/25 08:34 Prazosin Hcl 1 Mg Capsule PO 2 mg BID EDWIGE Administration Protocol Thiamine HCl 100 mg 01/07/25 09:00 01/07/25 09:13 Thiamine Hcl 100 Mg Tablet PO 100 mg DAILY EDWIGE Administration Trazodone HCl 50 mg 01/06/25 23:54 01/07/25 00:00 Trazodone Hcl 50 Mg Tablet PO 01/06/25 23:55 50 mg ONCE ONE Administration Medical Decision Making Medical Decision Making MDM Narrative: On exam he is well kept, answers questions appropriately. Reports that he hears voices inside of his head that are telling him to kill himself, endorsing suicidality. Denies HI. Physical exam is reassuring overall. He was recently discharged from inpatient psychiatry at [facility] on Monday, he reportedly left and found homeless individuals residing inside of his home. He now reports being fearful to go back home, but now the voices are louder. We will obtain EKG, labs, as well as care team evaluation. 0--his lab work was overall reassuring. LFTs are elevated, likely in the setting of excess alcohol consumption. Urinalysis does not show signs of infection. The patient did request an STI testing, which has been ordered. Urine drug test is positive for cocaine. The patient reports he uses marijuana daily, but this is negative. Given the cocaine use and alcohol use, EKG was obtained which reveals sinus rhythm with a rate of 99 beats per minute, with no ischemic changes. He was seen by the care team, who would like to keep him observation overnight for reassessment in the morning. Differential Diagnosis Differential Diagnoses: The differential diagnosis associated with the presentation includes SI, HI, depression, anxiety Admission/Observation Consideration of admission/observation: Escalation of care including admission/observation considered Consult Healthcare Provider Management of the patient was discussed with: Behavioral Health Provider Lab Data MDM Lab Attestation statement: I reviewed the patient's lab results. 01/06/25 15:22 01/06/25 15:22 Labs: Lab Results 01/06/25 01/06/25 01/07/25 Range/Units 15:22 23:09 06:23 WBC 8.9 (4.8-10.8) X10*3/uL RBC 5.11 (4.60-5.80) X10*6/uL Hgb 13.1 L (14.0-18.0) g/dl Hct 42.8 (42.0-52.0) % MCV 83.8 (80.0-98.0) fL MCH 25.6 L (27.0-33.0) pg MCHC 30.6 L (31.0-36.0) g/dl RDW 13.9 (11.0-16.0) % Plt Count 279 (160-400) X10*3/uL MPV 9.8 (9.4-12.4) fL Immature Gran % (Auto) 0.3 (0.0-0.4) % Neut % (Auto) 62.5 (45-73) % Lymph % (Auto) 25.8 (20-40) % [place] % (Auto) 9.4 (2-11) % Eos % (Auto) 1.5 (0-4) % Baso % (Auto) 0.5 (0-2) % Lymph # (Auto) 2.3 (1.2-4.9) X10*3/uL [place] # (Auto) 0.8 (0.1-1.2) X10*3/uL Eos # (Auto) 0.1 (0.0-0.4) X10*3/uL Baso # (Auto) 0.0 (0.0-0.2) X10*3/uL Abs Immat Gran (auto) 0.03 (0.00-0.03) X10*3/uL Absolute Neuts (auto) 5.6 (2.0-8.3) x10*3/uL Absolute Nucleated RBC 0.020 H (0.0-0.012) X10*3/uL Nucleated RBC % (auto) 0.2 (0.0-0.2) /100WBC Sodium 140 (135-145) mmol/L Potassium 4.1 (3.3-5.1) mmol/L Chloride 104 (96-108) mmol/L Carbon Dioxide 30 H (22-29) mmol/L Anion Gap 10 L (12-20) BUN 14 (9-16) mg/dL Creatinine 0.94 (0.5-1.4) mg/dL Estim Creat Clear Calc 155.4 Estimated GFR > 60 Random Glucose 112 (60-115) mg/dL Calcium 9.4 (8.4-10.2) mg/dL Total Bilirubin 0.3 (0.0-1.0) mg/dL AST 76 H (5-37) U/L ALT 53 H (0-40) U/L Alkaline Phosphatase 88 (39-117) U/L Total Protein 7.6 (6.5-8.0) g/dL Albumin 4.7 (3.5-5.0) g/dL Urine Color Dark Yellow Urine Appearance Clear Urine pH 5.5 (5.0-9.0) Ur Specific [place] >= 1.030 H (1.005-1.025) Urine Protein 30 (1+) H (Neg-Trace) mg/dL Urine Glucose (UA) Negative (Negative) mg/dL Urine Ketones Trace (Negative) mg/dL Urine Blood Negative (Negative) Urine Nitrite Negative (Negative) Ur Leukocyte Esterase Trace H (Negative) Urine RBC 0-2 (0-2) /HPF Urine WBC 21-50 H (0-5) /HPF Ur Squamous Epith Cells 3-5 (0-2) /HPF Urine Bacteria None Seen (None Seen) Hyaline Casts 0-2 (0-2) /LPF Ur N gonorrhoeae DNA (PCR) DETECTED A (Not Detect.) Salicylates < 5.0 L (15-30) mg/dL Urine Opiates Screen Not Detected (Not Detect) Ur Buprenorphine Scrn Not Detected (Not Detect) ng/mL Ur Oxycodone Screen Not Detected (Not Detect) ng/mL Urine Methadone Screen Not Detected (Not Detect) ng/mL Urine Fentanyl Screen Not Detected (Not Detect) Acetaminophen < 3 (<30) mcg/mL Ur Barbiturates Screen Not Detected (Not Detect) Ur Phencyclidine Scrn Not Detected (Not Detect) Ur Amphetamines Screen Not Detected (Not Detect) U Benzodiazepines Scrn Not Detected (Not Detect) Urine Cocaine Screen POSITIVE H (Not Detect) U Marijuana (THC) Screen Not Detected (Not Detect) Ethyl Alcohol < 10 mg/dL T.pallidum Ab (EIA) Nonreactive (Nonreactive) Ur Chlamydia DNA (PCR) NOT DETECTED (Not Detect.) HIV 1&2 Ab/P24 Ag 4thGn Nonreactive (Nonreactive) Independent Interpretation I performed an independent interpretation of an: EKG Interpretation: My interpretation of the patient's EKG: Sinus rhythm with rate of 99 beats per minute, no ST depressions or elevations. Vent. Rate : 99 BPM Atrial Rate : 99 BPM P-R Int : 166 ms QRS Dur : 90 ms QT Int : 326 ms P-R-T Axes : 62 25 45 degrees QTcB Int : 418 ms Normal sinus rhythm Normal ECG When compared with ECG of 06-Sep-2023 22:50, No significant change was found Independent Historian Clinical information obtained from an independent historian. History obtained from or confirmed by: EMS External Record Review External record reviewed: Outpatient record Chronic Conditions Patient?s care impacted by: Diabetes and Hypertension Social Determinants Patient?s care significantly limited by Social Determinants of Health including: Inadequate housing, Alcoholism and drug addiction in family and Problems related to primary support group Discharge Plan Discharge Clinical Impression: Depression with suicidal ideation, Acute gonococcal urethritis Patient Disposition: Admitted As Inpatient Interventions: Admission Worksheet (ED) Last Done: 01/07/25 12:13 Discharge Date/Time: 01/07/25 12:57
[2025-01-06 14:56] VITALS: BMI 45.3
--- NOTE | 2025-01-06 15:04 | ECG_ITS ---
Test Reason : R/O PROLONGED QT Blood Pressure : */* mmHG Vent. Rate : 99 BPM Atrial Rate : 99 BPM P-R Int : 166 ms QRS Dur : 90 ms QT Int : 326 ms P-R-T Axes : 62 25 45 degrees QTcB Int : 418 ms Normal sinus rhythm Normal ECG When compared with ECG of 06-Sep-2023 22:50, No significant change was found Referred By: Fidelina Dinero Electronically Signed By: EMILY ESTRADA
[2025-01-06 15:05] VITALS: BP 170/80; PULSE 104; RESP 17; TEMP 36.4; O2SAT 97
[2025-01-06 15:29] LABS: MANUAL DIFF FLAG NO
[2025-01-06 15:32] LABS: Appearance Urine Clear; Glucose Urine UA Negative (Negative); PH 5.5 (5.0-9.0); Specific Gravity - Urine >= 1.030 (1.005-1.025); UMIC TRIGGER UACC YES
[2025-01-06 15:41] LABS: Hematocrit 42.8 % (42.0-52.0); Hemoglobin 13.1 g/dl (14.0-18.0); Imm Gran Abs Auto 0.03 X10*3/uL (0.00-0.03); Imm Gran Pct Auto 0.3 % (0.0-0.4); Lymphocytes Absolute Auto 2.3 X10*3/uL (1.2-4.9); Mean Corpuscular HGB Conc 30.6 g/dl (31.0-36.0); Mean Corpuscular Hemoglobin 25.6 pg (27.0-33.0); Mean Corpuscular Volume 83.8 fL (80.0-98.0); NRBC Abs Auto 0.020 X10*3/uL (0.0-0.012); NRBC Pct Auto 0.2 /100WBC (0.0-0.2); Platelet Count 279 X10*3/uL (160-400); Red Blood Count 5.11 X10*6/uL (4.60-5.80); White Blood Count 8.9 X10*3/uL (4.8-10.8)
[2025-01-06 15:42] LABS: UACC Culture Trigger YES
[2025-01-06 15:48] LABS: Cannabinoid Screen Urine Not Detected (Not Detect)
[2025-01-06 16:05] LABS: Alanine Aminotransferase 53 U/L (0-40); Albumin Level 4.7 g/dL (3.5-5.0); Alkaline Phosphatase 88 U/L (39-117); Anion Gap 10 (12-20); Aspartate Amino Transferase 76 U/L (5-37); Blood Urea Nitrogen 14 mg/dL (9-16); Calcium 9.4 mg/dL (8.4-10.2); Carbon Dioxide 30 mmol/L (22-29); Chloride 104 mmol/L (96-108); Creatinine Clr Calc Pharmacy 155.4; Estimated Glomerular Filt Rate > 60; Potassium 4.1 mmol/L (3.3-5.1); Sodium 140 mmol/L (135-145); Total Protein 7.6 g/dL (6.5-8.0)
[2025-01-06 16:53] LABS: Acetaminophen LAB < 3 mcg/mL (<30); Salicylate < 5.0 mg/dL (15-30)
[2025-01-07 01:24] LABS: CT PCR Urine NOT DETECTED (Not Detect.); NG PCR Urine DETECTED (Not Detect.)
[2025-01-07 06:00] VITALS: BP 104/56; PULSE 90; RESP 18; TEMP 36.4; O2SAT 97
[2025-01-07] MEDS: cefTRIAXone sodium 500 MG, Lidocaine HCl 1 % MPF 1 ML IM (06:06)
--- OUTSIDE RECORDS SUMMARY | 2025-01-07 06:28 | XMS_ITS | Clinical Summary ---
Author Organization [facility] Address [address] [place] [phone] Phone Care Team Providers Care Lime Kiln Worker Helper Name Role Phone Pcp, Unknown Primary Care Provider Unavailabl e Allergies Active Allergy Reactions Criticality Noted Date Comments Milk Nausea And Vomiting Medium 10/02/2020 Medications amLODIPine (NORVASC) 5 MG tablet TAKE 1 TABLET BY MOUTH ONCE DAILY. hold IF sbp <100mmHg 2 Active benztropine (COGENTIN) 0.5 MG tablet TAKE 1 TABLET BY MOUTH two (2) times a day 2 Active cariprazine (VRAYLAR) 4.5 mg capsule Take 4.5 mg by mouth. 1 Active cetirizine (ZYRTEC) 10 MG tablet Take 10 mg by mouth daily. 1 Active chlorthalidone (HYGROTON) 25 MG tablet TAKE 0.5/HALF TABLETS BY MOUTH DAILY 2 Active clonazePAM (KLONOPIN) 1 MG tablet 2 Active diclofenac sodium (VOLTAREN) 1 % Gel APPLY TO THE AFFECTED AREA TOPICALLY 4 (FOUR) TIMES DAILY 2 Active gabapentin (NEURONTIN) 600 MG tablet Take 600 mg by mouth 3 (three) times a day. 2 Active haloperidoL (HALDOL) 5 MG tablet Take 5 mg by mouth daily. 2 Active hydrOXYzine (VISTARIL) 50 MG capsule TAKE 1 CAPSULE BY MOUTH EVERY 4 HOURS NEEDED FOR MODERATE TO SEVERE ANXIETY 2 Active lamoTRIgine (LAMICTAL) 25 MG IMMEDIATE release tablet Take 25 mg by mouth daily. 2 Active metFORMIN (GLUCOPHAGE-XR) 500 MG 24 hr tablet Take 500 mg by mouth daily. 2 Active losartan (COZAAR) 25 MG tablet 2 Active OXcarbazepine (TRILEPTAL) 300 MG tablet Take 300 mg by mouth 2 (two) times a day. 2 Active pantoprazole (PROTONIX) 40 MG tablet TAKE 1 TABLET BY MOUTH ONCE DAILY BEFORE BREAKFAST 2 Active prazosin (MINIPRESS) 1 MG capsule Take 1 mg by mouth nightly at bedtime. 2 Active risperiDONE (RISPERDAL) 3 MG tablet TAKE 1 TABLET BY MOUTH EVERYDAY AT BEDTIME 2 Active traZODone (DESYREL) 50 MG tablet TAKE 1 TABLET BY MOUTH EVERYDAY AT BEDTIME 2 Active fluticasone propionate (FLONASE) 50 mcg/actuation nasal spray 2 sprays by Nasal route daily. 9.9 mL 2 Active phenylephrine-d extromethorphan -acetaminophen (DAYQUIL COLD & FLU) 5-10-325 mg Cap Take 2 capsules by mouth every 4 (four) hours as needed. 70 capsule 2 Active ibuprofen (ADVIL,MOTRIN) 400 MG tablet Take 0.5 tablets (200 mg total) by mouth every 6 (six) hours as needed for pain (specific location in comments). 30 tablet 2 Active polyethylene glycol (MIRALAX) 17 gram packet Take 17 g by mouth daily. 14 packet 2 Active Social History Tobacco Use Types Packs/Day Years Used Date Smoking Tobacco: Some Days Smokeless Tobacco: Never Alcohol Use Standard Drinks/Week Comments Never 0 (1 standard drink = 0.6 oz pur e alcohol) Education Answer Date Recorded Are you interested in more education? Not on elmer e 06/17/2022 Are you concerned about learning? Not on file 06/17/2022 No 06/17/2022 No 06/17/2022 Digital Access Answer Date Recorded No 07/15/2022 No 07/15/2022 No 07/15/2022 Reliable internet access at home? Not on file 07/15/2022 Device with a working camera? Not on file Sex and Gender Information Value Date Recorded Sex Assigned at Male 07/20/2021 12:36 PM EDT Legal Sex Male 9:07 PM EDT Gender Identity Male 07/20/2021 12:36 PM EDT Sexual Orientation Not on file Last Filed Vital Signs Vital Sign Reading Time Taken Comments Blood Pressure 141/82 07/20/2021 5:00 PM EDT Pulse 81 07/20/2021 5:00 PM EDT Temperature 36.1 C (97 F) 07/20/2021 12:33 PM EDT Respiratory Rate 18 07/20/2021 5:00 PM EDT Oxygen Saturation 96% 07/20/2021 5:00 PM EDT Inhaled Oxygen Concentration - - Weight 136.1 kg (300 lb) 07/20/2021 12:33 PM EDT Height 177.8 cm (5' 10 ) 07/20/2021 12:33 PM EDT Body Mass Index 43.05 07/20/2021 12:33 PM EDT Plan of Treatment Health Maintenance Due Date Last Done Comments LIPID PANEL 1988 DEPRESSION SCREENING 2000 SMOKING Hx and SMOKELESS TOBACCO SCREENING 2001 HEPATITIS C SCREENING 2006 HIV ONE-TIME SCREENING (18-65 YEARS) 2006 PNEUMOCOCCAL VACCINES (0-49 years) (2 of 2 - PCV) 07/18/2012 07/19/2011 CREATININE LEVEL 07/20/2022 07/20/2021 POTASSIUM LEVEL 07/20/2022 07/20/2021 INFLUENZA VACCINE (#1) 2024 2, 12/30/2019, 10/11/2011, Additional history exists COVID-19 VACCINE ( season) 2024 09/10/2020, 08/20/2020 Adult Td,Tdap Booster 12/29/2029 12/30/2019, 010 HEPATITIS A VACCINES Aged Out No long er eligible based on patient's age to complete this topic HIB VACCINES Aged Out No longer eligi ble based on patient's age to complete this topic IPV VACCINES Aged Out No longer eligi ble based on patient's age to complete this topic MENINGOCOCCAL VACCINES (ACWY) Aged Out No longer eligible based on patient's age to complete this topic MENINGOCOCCAL VACCINES (B) Aged Out N o longer eligible based on patient's age to complete this topic Medical Devices Not on file Procedures Procedure Name Priority Date/Time Associated Diagnosis Comments BASIC METABOLIC PANEL (BMP) STAT 07/20/2021 1:43 PM EDT from Last 3 Months or Most Recently Relevant to Health Maintenance Results * Basic metabolic panel (07/20/2021 1:43 PM EDT) SODIUM 138 133 - 146 mmol/L [facility] CHLORIDE 99 96 - 108 mmol/L [facility] POTASSIUM 3.5 3.3 - 5.1 mmol/L [facility] CO2 30 21 - 35 mmol/L [facility] BUN 12 6 - 19 mg/dL [facility] CREATININE 0.90 0.5 - 1.5 mg/dL [facility] GLUCOSE 91 70 - 99 mg/dL [facility] CALCIUM 9.8 8.4 - 10.3 mg/dL [facility] EGFR 116 >59 mL/min/1.7 3m2 [facility] Comment:Estimated glomerular filtration rate calculated using the CKD-EPI refit equation. ANION GAP 13 10 - 20 mmol/L [facility] Blood 07/20/2021 1:43 PM EDT 07/20/2021 2:13 PM EDT us Alex Wolf MD LAB BLOOD BKR ORD ERABLES Final Result [facility] [address] [place] [address] from Last 3 Months or Most Recently Relevant to Health Maintenance Insurance [facility] MEDICARE PART A & B [facility] MEDICARE [facility]PLACEMENT [facility] MEDICARE PART A & B [facility] ONE CARE MEDICARE [facility]PLACEMENT [facility] MEDICARE PART A & B [facility] ONE CARE MEDICARE [facility]PLACEMENT [place] MEDICARE PART A & B [facility] ONE [facility]ARE MEDICARE REPLACEMENT [place] MEDICARE PART A & B [facility] MED[facility]PLACEMENT [facility] MEDICARE PART A & B [facility] ONE CARE MEDICARE [facility]PLACEMENT [facility] MEDICARE PART A & B [facility] C[facility] MEDICARE REPLACEMENT [facility] MEDICARE PART A & B [facility] ONE CARE MEDICARE REPLACEMENT [facility] MEDICARE PART A & B [facility] ONE CARE MEDICARE REPLACEMENT Care Teams Lime Kiln Worker Helper Relationship Specialty Start Date End Date Pcp, Unknown PCP - General 07/16/21 Additional Source Comments The information contained in this document represents components of the legal health record. It is not the complete legal health record.[facility]
--- OUTSIDE RECORDS SUMMARY | 2025-01-07 06:29 | XMS_ITS | Clinical Summary ---
Author Organization [facility] Address [address] [place] [address] Phone Care Team Providers Care Ell Tutor Name Role Phone Physician, Pcp Unknown Primary Care Provider Maria Del Rosario vailable Allergies Active Allergy Reactions Criticality Noted Date Comments Clonidine Disorientated 04/02/2024 Lisinopril Cough 04/02/2024 Milk Nausea And Vomiting Medium 10/02/2020 Sulfa (Sulfonamide Antibiotics) 03/23 Medications amLODIPine (NORVASC) 10 mg tablet 1 tablet (10 mg total) 1 (one) time each day at the same time. 02/21/19 25 Active Spiriva Respimat 1.25 mcg/actuation inhalation spray Inhale 2 puffs by mouth 1 (one) time each day at the same time. Active losartan (COZAAR) 25 mg tablet Take 2 tablets (50 mg total) by mouth 1 (one) time each day. 02/21/19 25 Active Daily-Usha, with folic acid, 400 mcg tablet Take 1 tablet by mouth 1 (one) time each day. 03/21/19 25 Active gabapentin (NEURONTIN) 300 mg capsule Take 2 capsules (600 mg total) by mouth 3 (three) times a day. Active metFORMIN XR (GLUCOPHAGE-XR) 500 mg 24 hr tablet Take 1 tablet (500 mg total) by mouth 2 (two) times a day. Active benztropine (COGENTIN) 1 mg tabletIndications: drug-induced extrapyramidal reaction Take 1 tablet (1 mg total) by mouth 2 (two) times a day. 60 each 04/09/19 25 Active haloperidoL (HALDOL) 10 mg tabletIndications: schizophrenia Take 1 tablet (10 mg total) by mouth at bedtime. 30 each 04/09/19 Active Additional Information Patient not taking.Reported on 09/10/2024 lithium 600 mg capsuleIndications :bipolar disorder Take 1 capsule (600 mg total) by mouth at bedtime. 30 each 04/09/19 Active Additional Information Patient not taking.Reported on 09/10/2024 nicotine polacrilex (NICORETTE) 2 mg gumIndications:smo venice cessation Place 1 each (2 mg total) into mouth between cheek and gum every 2 (two) hours if needed for smoking cessation. 100 each 04/09/19 Active prazosin (MINIPRESS) 5 mg capsuleIndications :post traumatic stress disorder Take 2 capsules (10 mg total) by mouth at bedtime. 60 each 04/09/19 Active traZODone (DESYREL) 100 mg tabletIndications: insomnia associated with depression Take 1 tablet (100 mg total) by mouth at bedtime as needed for sleep. 30 each 04/09/19 Active Additional Information Patient not taking.Reported on 09/10/2024 hydrOXYzine pamoate (VISTARIL) 50 mg capsuleIndications :anxiety Take 1 capsule (50 mg total) by mouth 3 (three) times a day if needed for anxiety. 30 capsule 04/09/19 Active Additional Information Patient taking differently:50 mg oral4 times daily PRN, anxiety, Indications: anxiety, Reported on 09/10/2024 lamoTRIgine (LaMICtal) 25 mg tabletIndications: depression associated with bipolar disorder Take 1 tablet (25 mg total) by mouth at bedtime. 30 each 04/09/19 Active Additional Information Patient taking differently: 50 mgoralDaily, Indications: depression associated with bipolar disorder, Reported on 09/10/2024 fluticasone furoate-vilanteroL (Breo Ellipta) 100-25 mcg/dose inhaler Inhale 1 puff by mouth 1 (one) time each day. Active melatonin 3 mg tablet Take 5 mg by mouth at bedtime. Active albuterol HFA (PROAIR HFA ; PROVENTIL HFA ; VENTOLIN HFA) 90 mcg/actuation inhaler Inhale 2 puffs by mouth every 4 (four) hours if needed for wheezing. Active DULoxetine (CYMBALTA) [address] capsule Take 1 capsule (60 mg total) by mouth 1 (one) time each day. Do not crush or chew. Active naltrexone (DEPADE) 50 mg tablet Take 1 tablet (50 mg total) by mouth 1 (one) time each day. Active nicotine (NICODERM CQ) 21 mg/[address] 1 patch on the skin 1 (one) time each day at the same time. Active prazosin (MINIPRESS) 2 mg capsule Take 1 capsule (2 mg total) by mouth at bedtime. Active umeclidinium (INCRUSE ELLIPTA) 62.5 mcg/actuation inhalation Inhale 1 puff by mouth 1 (one) time each day. Active loratadine (CLARITIN) 10 mg tablet Take 1 tablet (10 mg total) by mouth 1 (one) time each day. Active haloperidol decanoate (HALDOL DECANOATE) 100 mg/mL injection Inject 2 mL (200 mg total) into the shoulder, thigh, or buttocks every 28 (twenty-eight) days. Per sheets from PCP due 09/10/24 Active omeprazole (PriLOSEC) [address] capsule Take 1 capsule (40 mg total) by mouth 1 (one) time each day. Do not crush or chew. Active ammonium lactate (AMLACTIN) 12 % cream Apply 2 Applications topically if needed for dry skin. Active Active Problems Problem Noted Date Diagnosed Date Schizoaffective disorder, bi polar type [place] [place] [facility] [place] 04/03/2024 MORRIS (generalized anxiety disorder) 04/03/2024 PTSD (post-traumatic stress disorder) 04/03/2024 Alcohol use disorder, modera te, dependence ([facility] [place] [facility] [place]) 04/03/2024 Cannabis use disorder, mild, abuse 04/03/2024 Type 2 diabetes mellitus wit hout complication, without long-term current use of insulin ([facility] [place] [facility] [place]) 04/03/2024 Heart failure ([facility] [place] [facility]) 025 COPD (chronic obstructive pu lmonary disease) ([facility] [place] [facility] [place]) 04/03/2024 GERD (gastroesophageal reflux disease) HTN (hypertension) 04/03/2024 HLD (hyperlipidemia) 04/03/2024 ESHA (obstructive sleep apnea) 04/03/2024 Morbid obesity ([facility] [place] [facility] [place]) 2024 Iron deficiency anemia 04/03/2024 Medical History Medical History Date Comments Diabetes mellitus ([facility] [place], [facility] [place] DX:Diabetes mellitus ([facility]) Hypertension DX:Hypertension GERD (gastroesophageal reflux disease) DX:GERD (gastroesophageal reflux disease) Sleep apnea DX:Sleep apnea COPD (chronic obstructive pu lmonary disease) [place] [place] [facility] [place] Depression Anxiety Social History Tobacco Use Types Packs/Day Years Used Date Smoking Tobacco: Every Day Cigarettes 1 2 Smokeless Tobacco: Never Tobacco Cessation:Ready to Q uit: Not Asked; Counseling Given: Not Answered Alcohol Use Standard Drinks/Week Comments Not Currently 0 (1 standard drink = 0.6 oz pur e alcohol) Sex and Gender Information Value Date Recorded Sex Assigned at Not on file Legal Sex Male 10:39 PM EST Gender Identity Not on file Sexual Orientation Not on file Obstetrics History Last Filed Vital Signs Vital Sign Reading Time Taken Comments Blood Pressure 137/85 09/12/2024 2:00 PM EDT Pulse 69 09/12/2024 2:00 PM EDT Temperature 36.8 C (98.2 F) 09/12/2024 2:00 PM EDT Respiratory Rate 16 09/12/2024 2:00 PM EDT Oxygen Saturation 95% 09/12/2024 2:00 PM EDT Inhaled Oxygen Concentration - - Weight 131 kg (288 lb) 09/09/2024 11:33 PM EDT Height 175.3 cm (5' 9 ) 09/09/2024 11:33 PM EDT Body Mass Index 42.53 09/09/2024 11:33 PM EDT Plan of Treatment Health Maintenance Due Date Last Done Comments Diabetes: Annual Foot Exam 1998 Diabetes: Annual Retina Eye Exam 1998 Hepatitis A Vaccines (1 of 2 - Risk 2-dose series) 04/21/2007 Hepatitis B Vaccines (1 of 3 - 19+ 3-dose series) 04/21/2007 HPV Vaccines (1 - 3-dose SCDM series) 04/21/2015 Cholesterol Screening (Lipid Panel) 01/23/2022 HIV Screening 01/23/2022 Hepatitis C Screening 01/23/2022 Medicare Annual Wellness Visit 01/23/2022 Social Influencers of Health Screening 01/23/2022 Diabetes: Annual Urine Albumin-Creatinine Ratio (uACR) 02/06/2022 Depression Screening 02/21/2024 Diabetes: Blood Sugar Control Test (HGBA1C) 10/05/2024 04/07/2024 COVID-19 Vaccine ( season) 2024 02/07/2022, 09/10/2020, 08/20/2020 Influenza Vaccine (#1) 2024 , 02/23/2023, 02/07/2022, Additional history exists Diabetes: Annual GFR (Glomerular Filtration Rate) 09/10/2025 09/10/2024, 05/23/2024, 04/03/2024, Additional history exists Hypertension/CHF/CAD Annual BMP Blood Test 09/10/2025 09/10/2024, 05/23/2024, 04/03/2024, Additional history exists DTaP,Tdap,and Td Vaccines (3 - Td or Tdap) 12/29/2029 12/30/2019, 08/11/2009 RSV Immunization Adult Patients (1 - 1-dose 75+ series) 04/21/2063 Pneumococcal Vaccine: Pediatrics (0 to 5 Years) and At-Risk Patients (6 to 49 Years) Completed 02/23/2023, 07/19/2011 HIB Vaccines Aged Out No longer eligi ble based on patient's age to complete this topic IPV Vaccines Aged Out No longer eligi ble based on patient's age to complete this topic MMR Vaccines Aged Out No longer eligi ble based on patient's age to complete this topic Meningococcal ACWY Vaccine Aged Out N o longer eligible based on patient's age to complete this topic Meningococcal B Vaccine Aged Out No l onger eligible based on patient's age to complete this topic RSV Immunization Patients Under 20 months Aged Out No longer eligible based on patient's age to complete this topic Varicella Vaccines Aged Out No longer eligible based on patient's age to complete this topic Procedures Procedure Name Priority Date/Time Associated Diagnosis Comments COMPREHENSIVE METABOLIC PANEL STAT 09/10/2024 12:17 AM EDT HEMOGLOBIN A1C Timed 04/07/2024 7:57 AM EST from Last 3 Months or Most Recently Relevant to Health Maintenance Results * Comprehensive metabolic panel (09/10/2024 12:17 AM EDT) Sodium 139 133 - 145 mmol/L LAB CHEMISTRY METHOD 09/10/2024 1:26 AM [facility] Potassium 4.5 3.5 - 5.5 mmol/L LAB CHEMISTRY METHOD 09/10/2024 1:26 AM [facility] Chloride 106 96 - 110 mmol/L LAB CHEMISTRY METHOD 09/10/2024 1:26 AM [facility] CO2 30 21 - 32 mmol/L LAB CHEMISTRY METHOD 09/10/2024 1:26 AM [facility] Anion Gap 3 3 - 11 LAB CHEMISTRY METHOD 09/10/2024 1:26 AM [facility] Glucose 96 70 - 100 mg/dL LAB CHEMISTRY METHOD 09/10/2024 1:26 AM [facility] BUN 12 5 - 25 mg/dL LAB CHEMISTRY METHOD 09/10/2024 1:26 AM [facility] Creatinine 0.98 0.70 - 1.30 mg/dL LAB CHEMISTRY METHOD 09/10/2024 1:26 AM [facility] eGFR 102 >=60 mL/min/1. 73m2 LAB CHEMISTRY METHOD 09/10/2024 1:26 AM [facility] Comment:Calculation based on the Chronic Kidney Disease Epidemiology Collaboration (CKD-EPI) equation refit without adjustment for race. BUN/Creatinine Ratio 12.2 LAB CHEMISTRY METHOD 09/10/2024 1:26 AM [facility] Calcium 9.1 8.5 - 10.5 mg/dL LAB CHEMISTRY METHOD 09/10/2024 1:26 AM [facility] AST (SGOT) 37 10 - 42 unit/L LAB CHEMISTRY METHOD 09/10/2024 1:26 AM EDT [facility] ALT (SGPT) 41 10 - 60 unit/L LAB CHEMISTRY METHOD 09/10/2024 1:26 AM EDT [facility] Alkaline Phosphatase 78 42 - 121 unit/L LAB CHEMISTRY METHOD 09/10/2024 1:26 AM EDT [facility] Total Protein 7.1 6.0 - 8.0 g/dL LAB CHEMISTRY METHOD 09/10/2024 1:26 AM EDT [facility] Albumin 4.0 3.2 - 5.0 g/dL LAB CHEMISTRY METHOD 09/10/2024 1:26 AM EDT [facility] Total Bilirubin 0.3 0.0 - 1.4 mg/dL LAB CHEMISTRY METHOD 09/10/2024 1:26 AM EDT [facility] Blood Venous blood specimen / Unknown Venipuncture / Unknown 09/10/2024 12:17 AM EDT 09/10/2024 12:54 AM EDT us Clark Fischer MD LAB BLOOD ORDERABLES Final Resu lt [facility] [address] [place] [address], * (ABNORMAL) Hemoglobin A1c (04/07/2024 7:57 AM EST) Hemoglobin A1C 5.8(H) <5.7 % LAB CHEMISTRY METHOD 04/07/2024 2:26 PM EST [facility] Mean Bld Glu Estim. 120 mg/dL LAB CHEMISTRY METHOD 04/07/2024 2:26 PM EST [facility] Blood Venous blood specimen / Unknown Venipuncture / Unknown 04/07/2024 7:57 AM EST 04/07/2024 8:01 AM EST Narrative [facility] - 04/07/2024 2:26 PM EST ADA Guidelines: Increased risk Diabetes Mellitus A1C 5.7 - 6.4% and Fasting Blood Glucose 100 - 125 mg/dl Diabetes Mellitus: A1C >6.5% and Fasting Blood Glucose >125 mg/dl Alcides Dwight Garner MD LAB BLOOD ORDERABL ES Final Result [facility] [address] [place] [address], [place] [phone] from Last 3 Months or Most Recently Relevant to Health Maintenance Insurance [facility] MEDICARE Member Subscriber Plan / Payer (Ef fective 2019-Present) Name:STEF MUSTAFA Relation to Subscriber:Self Name:Stef Lugo Payer ID:[id number] Group ID:[id number] Type:Not on file Address: [place] [address] [place] [phone] Advance Directives * Full Code - Default (Latest Code Status on File) Date Activated Date Inactivated Comments 04/03/2024 1:25 AM 04/09/2024 5:15 PM This is orde r is used when code status has not been discussed with the patient, or code status is otherwise unknown/unconfirmed To update the patient's code status, place a code status order. Do not modify or discontinue any currently active code status orders. Care Teams Ell Tutor Relationship Specialty Start Date End Date Physician, Pcp Unknown PCP - General 09/09/24
--- OUTSIDE RECORDS SUMMARY | 2025-01-07 06:29 | XMS_ITS | Encounter Summary ---
Author Organization [facility] Address [address] [facility] [address] [place] [phone] Phone Care Team Providers Care Machining Engineer Name Role Phone Pcp, Unknown Primary Care Provider Unavailabl e Encounter Details Date Type Department Care Team (Late st Contact Info) Description 07/20/2021 Procedure Pass [facility], Ct Scan - [address] [address] Social History Tobacco Use Types Packs/Day Years [...] PM EDT Sexual Orientation Not on file documented as of this encounter Functional Status * Calculated C-SSRS Risk Score (Lifetime/Recent) Answer Date of Assessment Author No Risk Indicated 07/20/2021 12:36 PM EDT Suzi Lee RN * [place] Suicide Severity Rating Scale (Screener/Recent Self-Report) Question Answer Date of Assessment Author 1. Wish to be (Past 1 Month) No 022 12:36 PM EDT Suzi Linda RN 2. Non-Specific Active Suici alfa Thoughts (Past 1 Month) No 07/20/2021 12:36 PM EDT Tova Linda RN 6. Suicidal Behavior (Lifetime) No 12:36 PM EDT Suzi Linda RN documented as of this encounter Plan of Treatment Not on file documented as of this encounter Visit Diagnoses Not on filedocumented in this encounter Care Teams Machining Engineer Relationship Specialty Start Date End Date Pcp, Unknown PCP - General 07/16/21 documented as of this encounter Additional Source Comments The information contained in this document represents components of the legal health record. It is not the complete legal health record.[facility]
--- OUTSIDE RECORDS SUMMARY | 2025-01-07 06:29 | XMS_ITS | Continuity of Care Document ---
Author Name Taqueria Schwartz Address [address] [place] [id number] Organization Unknown Address [address] [place] [address] Medications No known medications Problems No known problems
--- OUTSIDE RECORDS SUMMARY | 2025-01-07 06:30 | XMS_ITS | Clinical Summary ---
Author Organization [facility] Address [address] [place] [address] Care Team Providers Care Environmental Engineering Assistant Name Role Phone Unavailable Primary Care Provider Unavailabl e Allergies Active Allergy Reactions Criticality Noted Date Comments Milk Nausea And Vomiting Medium 10/02/2020 Medications Medication Sig Dispensed Refills Start Date End Date Status nicotine (NICODERM CQ) 21 MG/24HRIndications:N icotine Dependence Place 1 patch onto the skin daily. 28 patch 0 10/05/2020 Active nicotine polacrilex (NICORETTE) 2 MG gumIndications:Nicot ine Dependence Use as directed 1 each (2 mg total) in the mouth or throat every hour as needed for smoking cessation (Nicotine craving). 100 each 0 10/05/2020 Active polyethylene glycol (MIRALAX) 17 g packetIndications:Co nstipation Take 17 g by mouth daily. 14 each 0 10/05/2020 Active thiamine mononitrate (THIAMINE) 100 MG tabletIndications:flores pplement Take 1 tablet (100 mg total) by mouth daily. 30 tablet 0 10/06/2020 Active traZODone (DESYREL) 50 MG tabletIndications:In somnia Take 1 tablet (50 mg total) by mouth every night at bedtime. 30 tablet 0 10/05/2020 Active Lactase (LACTAID ULTRA) 9000 units TABS tabletIndications:La ctose Intolerance Take 1 tablet (9,000 Units total) by mouth 3 (three) times a day with meals. 30 tablet 2 10/05/2020 Active docusate sodium 100 MG CAPSIndications:Cons tipation Take 100 mg by mouth daily. 10 capsule 0 10/06/2020 Active folic acid (FOLVITE) tablet 1 mgIndications:supple ment Take 1 tablet (1 mg total) by mouth daily. 30 tablet 0 10/06/2020 Active Cariprazine HCl 4.5 MG CAPSIndications:Schi zophrenia Take 4.5 mg by mouth daily. 30 capsule 0 10/06/2020 Active metFORMIN (GLUCOPHAGE) tablet 500 mgIndications:Type 2 Diabetes Mellitus Take 1 tablet (500 mg total) by mouth every morning with breakfast. 30 tablet 0 10/06/2020 Active pantoprazole (PROTONIX) 40 MG tabletIndications:Ga stroesophageal Reflux Disease Take 1 tablet (40 mg total) by mouth every morning on an empty stomach. 30 tablet 0 10/06/2020 Active LORazepam (ATIVAN) 1 MG tabletIndications:An xiety Take 1 tablet (1 mg total) by mouth every night at bedtime. 14 tablet 0 10/05/2020 Active amLODIPine (NORVASC) tablet 5 mgIndications:Hypert ension Take 1 tablet (5 mg total) by mouth daily. 30 tablet 0 10/05/2020 Active cetirizine (ZyrTEC) 10 MG tabletIndications:Se asonal Allergic Rhinitis Take 1 tablet (10 mg total) by mouth daily. 30 tablet 0 10/05/2020 Active chlorthalidone (HYGROTON) 25 MG tabletIndications:Ed imtiaz Take 0.5 tablets (12.5 mg total) by mouth daily. 30 tablet 0 10/05/2020 Active gabapentin (NEURONTIN) 300 MG capsuleIndications:N europathic Pain Take 1 capsule (300 mg total) by mouth 3 (three) times a day. 90 capsule 0 10/05/2020 Active OXcarbazepine (TRILEPTAL) 300 MG tabletIndications:mo od stability Take 1 tablet (300 mg total) by mouth 2 (two) times a day. 60 tablet 0 10/05/2020 Active Active Problems Problem Noted Date Diagnosed Date Schizoaffective disorder 09/30/2020 Diabetes mellitus GERD (gastroesophageal reflux disease) Hypertension Sleep apnea Obesity Social History Tobacco Use Types Packs/Day Years Used Date Smoking Tobacco: Never Smokeless Tobacco: Never Alcohol Use Standard Drinks/Week Comments Not Currently 0 (1 standard drink = 0.6 oz pur e alcohol) Sex and Gender Information Value Date Recorded Sex Assigned at Male 09/30/2020 12:41 AM EDT Gender Identity Male 09/30/2020 2:00 AM EDT Sexual Orientation Straight 09/30/2020 2: 00 AM EDT Job Start Date Occupation Industry Not on file Not on file Not on file Last Filed Vital Signs Vital Sign Reading Time Taken Comments Blood Pressure 148/86 10/05/2020 8:07 AM EDT Pulse 102 10/05/2020 8:07 AM EDT Temperature 36.2 C (97.1 F) 10/05/2020 8:05 AM EDT Respiratory Rate 16 10/05/2020 8:05 AM EDT Oxygen Saturation 94% 10/05/2020 8:05 AM EDT Inhaled Oxygen Concentration - - Weight 140.6 kg (310 lb) 09/30/2020 2:07 AM EDT Height 177.8 cm (5' 10 ) 09/30/2020 2:07 AM EDT Body Mass Index 44.48 09/30/2020 2:07 AM EDT Plan of Treatment Not on file Advance Directives For more information, please contact: [phone] Latest Code Status on File Code Status Date Activated Date Inactivated Comments Full Code 09/30/2020 1:54 AM 10/05/2020 9:45 PM This code status was ascertained in the following way: per unit protocol.
--- OUTSIDE RECORDS SUMMARY | 2025-01-07 06:30 | XMS_ITS | Encounter Summary ---
Author Organization [facility] Address [address] [place] [address] Encounters * CPT with Taqueria Schwartz at [facility] on 2024-08-18 { reasonForRequest : BP 150/89, Body aches - headache. , patientReports&qu ot;: Cough , denies :[ Increased work of breathing/labored with or without fever , Unable to speak in full sentences without distress , Discoloration of skin -cyanosis , Needs to sleep sitting up, can t catch breath , Shortness of breath in setting of confusion ], chiefComplaints : Fever, Nausea / Vomiting", pmh : Severe Persistent Mental Illness (SPMI), Hypertension , allergies : Lisinopril, Clonidine, Sulfa (Sulfonamide Antibiotics) , otherAllergies&quo t;:null, painAssessment : , visitOutcome : , additionalComments : VNA calling for member to report fever, chills, body aches, and vomiting. Symptoms started a few days ago. Complaining of cough as well at night. Denies SOB. Denies chest pain.Has not taken any over the counter medication. Denies abd pain. Requesting visit for assessment.\n\n34 y.o male complains of Fever, Nausea / Vomiting\nI provided information on the mobile health provider response time and advised the patient and/or caregiver to monitor reported signs and symptoms. I discussed the warning signs of when to seek emergency care. J Tommy RN } Pt answered the door, A/O x3. Pt is ambulating w/o limp or assistance. Pt is pink/warm/dry and not in any immediate respiratory distress. Pt states that he was in the hospital for 2 weeks during a mental health crisis and was released onTday (5 days ago). While in the hospital, pt did not receive his ozempic. On Monday (3 days ago)pt began taking his ozempic once again. Yesterday began to suffer from nausea/vomiting and diarrhea. Today pt states he vomited once but denies diarrhea. When asked if pt had these same symptoms when he first started his ozempic medication 4 months ago,pt replied he did. Pt denies any CP, SOB, dizziness and/or diarrhea. Pt does currently c/o nausea but states he is eating and drinking w/o any issues. Vitals as noted. First BP acquired was due to small BP cuff. Second BP was larger cuff with a reading of 143 systolic. Bgl 110. Bilateral breath sounds clear. Pt was negative for Covid and flu. No extremity edema or fever was noted. Pt denies any abdominal pain. [facility] contacted and ordered an EKG. Results were uploaded. Pt was then ordered 4mg sublingual zofran. Pt was advised that if he experiences increased vomiting and/or diarrhea to contact his PCP. If pt experiences any CP, SOB, dizziness or fever to call 911. Call was then cleared. ORAL_MEDICATION, EKG, POC_BLOODWORK, POC_FLU_STREP, URINE_DIPSTICK, COVID_TEST Written by Taqueria Schwartz on 2024-08-18
[2025-01-07 07:14] LABS: HIV Num 1 0.07 S/CO (0.00-0.99); Syphilis Screen Nonreactive (Nonreactive)
--- NOTE | 2025-01-07 08:32 | PC.NURSE ---
Assumed care, report received. Pt is awake, calm and cooperative. He eats breakfast and is awaiting AM meds. Pt denies SI/HI, he continues to endorse mild AH to kill himself.
--- NOTE | 2025-01-07 09:03 | PHA.MEDREC ---
Pharmacy Consult ? Medication Reconciliation Pharmacy has REVIEWED the medication reconciliation COMPLETED BY NURSING.
[2025-01-07] MEDS: Nicotine 21 MG PATCH.TD24 TRANSDERMA (09:11)
[2025-01-07 13:19] VITALS: BMI 54.7
[2025-01-07 14:13] VITALS: BP 178/94; PULSE 96; RESP 21; TEMP 35.7; O2SAT 93
[2025-01-07] MEDS: Flu Vacc TS2025-26(6mo up)/PF 0.5 ML SYRINGE IM (16:01)
[2025-01-07 16:06] VITALS: BP 141/83; PULSE 113; RESP 20; O2SAT 93
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
[2025-01-07 20:00] VITALS: BP 128/71; PULSE 109; RESP 18; TEMP 36.1; O2SAT 92
[2025-01-07 21:08] VITALS: BP 128/71
[2025-01-08 06:42] LABS: Syphilis Screen Nonreactive (Nonreactive)
[2025-01-08 07:02] LABS: HIV Num 1 0.07 S/CO (0.00-0.99)
[2025-01-08 08:00] VITALS: BP 125/68; PULSE 120; RESP 18; TEMP 36.1; O2SAT 91
[2025-01-08] MEDS: Metoprolol Succinate ER 50 MG TAB.ER.24H PO (08:34)
[2025-01-08] MEDS: Tiotropium Bromide 2.5 mcg 1 PUFF/2.5 MCG MIST.INHAL 2 PUFF INHALE (08:34)
[2025-01-08] MEDS: Ammonium Lactate 12 % Lotion 226 GM BOTTLE 1 APPL TOPICAL (08:35)
--- NOTE | 2025-01-08 09:22 | HO.PM.IMCN ---
History of Present Illness Data of Consult Service Date: 01/08/25 Primary Care Provider: Lamine Lin MD HPI Reason for consult: Medical consult 34-year-old male with past medical history of depression with suicide ideation, type 2 diabetes, hypertension, alcohol use disorder, schizoaffective disorder, ESHA on CPAP, substance use, cannabis disorder, presented to the emergency room after section 12 from [facility] for suicidal ideation. Patient was recently discharged from [facility] on Monday and he spent the weekend at [facility] due to consuming alcohol while taking medications. Patient tested positive for gonorrhea negative for chlamydia, he was treated with ceftriaxone IM and Flagyl 2 g orally to treat for Trichomonas empirically. He tested negative for syphilis and HIV. His LFTs were elevated likely in the setting of alcohol consumption, urinalysis without evidence of infection. U tox is positive for cocaine EKG revealed a sinus rhythm with no ischemic changes. No leukocytosis or no anemia. No evidence of electrolyte imbalances or renal insufficiency. Per nursing patient has been deciding to the 70s to 80s. On exam patient found to be napping with extreme snoring. No CPAP in place. Review of Systems Review of Systems: Denies any shortness of breath, chest pain, headaches, dysuria, abdominal pain or discomfort, nausea, vomiting or diarrhea. Denies fever or chills. [facility] Medical History (Updated 01/08/25 @ 13:54 by Marcella Crowder DNP) Cannabis use disorder Alcohol use disorder Morbid obesity Medical clearance for psychiatric admission Schizoaffective disorder Diabetes HTN (hypertension) Social History Household Members: None Housing: Apartment Do you presently have visiting nurse or other home services: Yes ([facility] for medication management and BP monitoring) Alcohol intake: current Alcohol intake frequency: 3 or more drinks per day Alcohol type: hard liquor Patient Tobacco Use Status: Current everyday Tobacco user Tobacco use type: Cigarette Cigarette Packs Per Day: 1 Cigarettes Per Day: 20.0 Years Smoked: 15 Smoked in Last 30 Days: Yes e-Cigarette/Vaping Use: Never Used Patient Interested in Nicotine Replacement: Yes Patient Given Instructions on How to Stop Smoking: No Second Hand Smoke Exposure: No Substance Use Type: Marijuana Currently Displaying Signs/Symptoms of Drug Intoxication Withdrawal: No Have you been hit, kicked, punched, or otherwise hurt by someone within the past year? If so, by whom?: No Do you feel safe in your current relationship?: No Current Relationship Is there a partner from a previous relationship who is making you feel unsafe now?: No Are you made to feel afraid or neglected: No Spiritual Healthcare Practices: None Christianity Healthcare Practices: None Cultural Healthcare Practices: None Advance Directives: No Advance Directives Information Provided: No Do you have thoughts of harming others: None Do you have a plan to hurt others: No Plan Recently lost weight without trying: No How much weight loss: Not applicable Eating poorly because of decreased appetite: No Nutrition screen score: 0 Nutrition Risks: No Nutritional Risk Poor oral hygiene: No service: No Sexual orientation: Unable to collect Meds Allergies Allergy/AdvReac Type Severity Reaction Status Date / Time lisinopril Allergy Unknown Cough Verified 01/06/25 15:02 clonidine AdvReac Unknown Unknown Verified 01/06/25 15:02 Active Medications: Current Medications Acetaminophen (Acetaminophen 325 Mg Tablet) 650 mg PO Q6H PRN PRN Reason: Headache/Pain, Scale 1-10 Last Admin: 01/08/25 04:45 Dose: 650 mg Al Hydroxide/Mg Hydroxide (Magnesium Hydrox/Alum Hydrox 30 Ml Oral.Susp) 30 ml PO Q6H PRN PRN Reason: Heartburn/Nausea Albuterol Sulfate (Albuterol Sulfate 90 Mcg 8 Gm Inhaler) 1 puff INHALE QID PRN PRN Reason: Wheezing Amlodipine Besylate (Amlodipine Besylate 10 Mg Tablet) 10 mg PO DAILY REPLACED BY [facility]; Protocol Last Admin: 01/08/25 08:34 Dose: 10 mg Cyclobenzaprine HCl (Cyclobenzaprine Hcl 10 Mg Tablet) 10 mg PO TID PRN PRN Reason: back muscle spasm Folic Acid (Folic Acid 1 Mg Tablet) 1 mg PO DAILY REPLACED BY [facility] Last Admin: 01/08/25 08:34 Dose: 1 mg Gabapentin (Gabapentin 400 Mg Capsule) 800 mg PO TID EDWIGE Last Admin: 01/08/25 08:34 Dose: 800 mg Haloperidol (Haloperidol 5 Mg Tablet) 10 mg PO BEDTIME EDWIGE Last Admin: 01/07/25 21:07 Dose: 10 mg Hydroxyzine HCl (Hydroxyzine Hcl 25 Mg Tablet) 50 mg PO Q6H PRN PRN Reason: mild anxiety Last Admin: 01/07/25 17:41 Dose: 50 mg Lactic Acid (Ammonium Lactate 12 % Lotion 226 Gm Bottle) 1 appl TOPICAL DAILY REPLACED BY [facility]; Protocol Last Admin: 01/08/25 08:35 Dose: 1 appl Lamotrigine (Lamotrigine 25 Mg Tablet) 25 mg PO DAILY REPLACED BY [facility] Last Admin: 01/08/25 08:34 Dose: 25 mg Loratadine (Loratadine 10 Mg Tablet) 10 mg PO DAILY REPLACED BY [facility] Last Admin: 01/08/25 08:35 Dose: 10 mg Lorazepam (Lorazepam 1 Mg Tablet) 1 mg PO Q2H PRN PRN Reason: ciwa 6-10 Last Admin: 01/07/25 15:59 Dose: 1 mg Lorazepam (Lorazepam 1 Mg Tablet) 2 mg PO Q2H PRN PRN Reason: ciwa 11+ Last Admin: 01/07/25 18:30 Dose: 2 mg Losartan Potassium (Losartan Potassium 50 Mg Tablet) 50 mg PO DAILY REPLACED BY [facility]; Protocol Last Admin: 01/08/25 08:34 Dose: 50 mg Magnesium Hydroxide (Milk Of Magnesia 30 Ml Oral.Susp) 30 ml PO DAILY PRN PRN Reason: Constipation Melatonin (Melatonin 3 Mg Tablet) 3 mg PO BEDTIME PRN PRN Reason: Sleep Metformin HCl (Metformin Hcl Er 500 Mg Tab.Er.24h) 500 mg PO BID REPLACED BY [facility] Last Admin: 01/08/25 08:34 Dose: 500 mg Metoprolol Succinate (Metoprolol Succinate Er 50 Mg Tab.Er.24h) 50 mg PO DAILY REPLACED BY [facility]; Protocol Last Admin: 01/08/25 08:34 Dose: 50 mg Multivitamins/Vitamin C (Multivitamin Tablet) 1 tab PO DAILY REPLACED BY [facility] Last Admin: 01/08/25 08:34 Dose: 1 tab Nicotine (Nicotine 21 Mg Patch.Td24) 21 mg TRANSDERMA DAILY REPLACED BY [facility] Last Admin: 01/07/25 09:11 Dose: 21 mg Nicotine Polacrilex (Nicotine Polacrilex 2 Mg Gum) 4 mg BUCCAL Q2H PRN PRN Reason: Nicotine Cravings Pt Own (Tirzepatide [Mounjaro] 2.5 Mg/0. 5 Ml Pen Injector) 2.5 mg SUBCUT Q7D REPLACED BY [facility] Last Admin: 01/07/25 15:59 Dose: 2.5 mg Omeprazole (Omeprazole 20 Mg Capsule.Dr) 20 mg PO DAILY@0630 REPLACED BY [facility] Last Admin: 01/08/25 06:10 Dose: 20 mg Ondansetron HCl (Ondansetron Odt 4 Mg Tab.Rapdis) 4 mg TRANSLINGU Q8H PRN PRN Reason: Nausea and Vomiting Last Admin: 01/07/25 15:59 Dose: 4 mg Prazosin HCl (Prazosin Hcl 1 Mg Capsule) 2 mg PO BID REPLACED BY [facility]; Protocol Last Admin: 01/08/25 08:34 Dose: 2 mg Thiamine HCl (Thiamine Hcl 100 Mg Tablet) 100 mg PO DAILY REPLACED BY [facility] Last Admin: 01/08/25 08:34 Dose: 100 mg Tiotropium [place] (Tiotropium [place] 2.5 Mcg 1 Puff/2.5 Mcg Mist.Inhal) 2 puff INHALE RDAILY REPLACED BY [facility] Last Admin: 01/08/25 08:34 Dose: 2 puff Trazodone HCl (Trazodone Hcl 50 Mg Tablet) 100 mg PO BEDTIME REPLACED BY [facility] Last Admin: 01/07/25 21:08 Dose: 100 mg Home Medications ?Medication ?Instructions ?Recorded ?Confirmed ?Last Taken ?Type ondansetron 4 mg disintegrating 4 mg PO Q8H PRN Nausea And Vomiting 09/12/24 01/06/25 Unknown History tablet ammonium lactate 12 % lotion 1 appl topical DAILY 09/13/24 01/06/25 01/06/25 History umeclidinium 62.5 mcg/actuation 1 inh inhalation DAILY 09/13/24 01/07/25 01/05/25 History blister powder for inhalation (Incruse Ellipta) duloxetine 30 mg capsule,delayed 90 mg PO DAILY 01/07/25 01/07/25 01/05/25 History release haloperidol 10 mg tablet 10 mg PO BEDTIME 01/07/25 01/07/25 01/05/25 History hydroxyzine pamoate 50 mg capsule 50 mg PO Q6-8H PRN Anxiety 01/07/25 01/07/25 Unknown History metoprolol succinate 50 mg 50 mg PO DAILY 01/07/25 01/07/25 01/05/25 History tablet,extended release 24 hr prazosin 2 mg capsule 2 mg PO BID 01/07/25 01/07/25 01/06/25 History trazodone 100 mg tablet 100 mg PO BEDTIME 01/07/25 01/07/25 01/05/25 History Physical Exam Vital Signs and Narrative: Vital Signs: Last Vital Signs Temp 97.0 F 01/08/25 08:00 Pulse 120 H 01/08/25 08:00 Resp 18 01/08/25 08:00 BP 125/68 01/08/25 08:00 Pulse Ox 91 L 01/08/25 08:00 O2 Del Method CPAP 01/08/25 08:00 BMI result Body Mass Index 54.7 Alert when awoken, calm and cooperative. Answers questions. Neuro: CN II-X11 intact, no deficits, visual acuity intact EYES: PERRLA, EOM intact ENT: Hearing intact, MMM Cardiac: S1 S2 RRR, No ectopy Pulmonary: Lungs clear to auscultation, diminished due to body habitus, No increased WOB. Abdominal: BS active in all 4 quadrants, no guarding or tenderness. Obese abdomen. MSK: Strength 5/5 upper and lower extremities : Deferred Extremities: No edema in lower extremities Psych: Sleeping, easily arousable. Cooperative with the exam Skin: Warm and dry, Intact Results Labs 01/06/25 15:22 01/06/25 15:22 Labs: Laboratory Results - last 24 hr 01/07/25 19:31 T.pallidum Ab (EIA) Nonreactive HIV 1&2 Ab/P24 Ag 4thGn Nonreactive Assessment and Plan (1) Sleep related hypoxia: Status: Acute Plan 34-year-old male with past medical history listed below presented to the emergency department with suicidal ideation. Admitted for inpatient stabilization. Schizoaffective disorder/suicidal ideation/substance use disorder/alcohol use disorder Treatment per psychiatric team Type 2 diabetes Continue metformin b.i.d. Continue Mari Recent A1c 5.8 done in August. Hypertension Continue amlodipine and Cozaar, Toprol Blood pressure stable ESHA on CPAP/Sleep-related hypoxia Patient utilizing CPAP at HS Will need CPAP use during nap time or supplemental oxygen to maintain sats greater than 90% Thank you for allowing me to participate in the care of this patient. Will follow with you, please notify medical provider with any changes in condition or concerns.
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
[2025-01-08] MEDS: Nicotine 21 MG PATCH.TD24 TRANSDERMA (13:07)
--- NOTE | 2025-01-08 18:16 | MHC.RECOVRN ---
Addiction consult received for pt with alcohol and marijuana use. TW met with pt with intention to discuss substance use and recovery support/options. Pt was pleasant on approach, walking in the hallway, in no apparent distress. Denies w/d symptoms at this time and none observed? Pt reports drinking two 12 packs of beer every Monday and Monday in addition to smoking 2 ?blunts? per day which he purchases from a dispensary.?He is unable to identify a reason for his ongoing use but states his goal is to completely stop his drug and alcohol use. Pt states he tried to stop drinking on his own in the past and was able to acquire 2 weeks of sobriety before returning to use. He has not attended an ATS or CSS for KIA treatment but states he is open to the idea and willing to discharge to a program. Pt also expressed interest in Naltrexone for AUD which will be discussed w/ Addictions Provider. Pt was counseled on specific harm-reduction strategies including setting a personal limit of no more than 1-2 drinks per occasion, alternating alcohol with water, pacing intake, and eating food prior to and during drinking. Pt also educated on the current drug supply and the importance of only using marjuana purchased from a dispensary. Pt verbalized his understanding and was able to reiterate this information. ACS team available as needed for ongoing support and resources.
[2025-01-08 20:09] VITALS: BP 119/60; PULSE 94; RESP 18; TEMP 36.6; O2SAT 94
[2025-01-08 21:27] VITALS: BP 119/60
[2025-01-09 07:00] VITALS: BMI 56.3
[2025-01-09 08:00] VITALS: BP 130/64; PULSE 86; TEMP 36.8; O2SAT 99
[2025-01-09] MEDS: Tiotropium Bromide 2.5 mcg 1 PUFF/2.5 MCG MIST.INHAL 2 PUFF INHALE (08:44)
[2025-01-09] MEDS: Ammonium Lactate 12 % Lotion 226 GM BOTTLE 1 APPL TOPICAL (08:45)
[2025-01-09] MEDS: Metoprolol Succinate ER 50 MG TAB.ER.24H PO (08:45)
[2025-01-09] MEDS: Nicotine 21 MG PATCH.TD24 TRANSDERMA (08:46)
--- NOTE | 2025-01-09 10:16 | HO.PSYCHPN ---
Subjective Subjective Date of Service: 01/09/25 Reason For Visit: schizoaffective disorder Subjective Notes: Conditional Voluntary Healthcare Proxy: No Guardianship: No Medical Problems Affecting Mental Status: No Interim History: Pt reports sx of conjunctivitis. Hospitalist consult requested. Paged by nursing as there was not a response and pt having increased sx of sinus pressure. SARS/RSV/Flu, sinus xrays and Emycin Opth ordered. Pt continues to report sedation. We decreased Gabapentin to 600 mg tid. CIWAS are lower- detox is resolving. Medication Compliance: Yes Side effects from medications: No Attending Groups: Intermittent Review of Systems as noted Review of Systems: as noted Review of Systems Review of Systems sinus sx, sx of conjunctivitis, fatigue Mental Status Exam Mental Status Exam Patient Appearance: Fatigued Patient Orientation: Person, Place, Time and Situation Level of Consciousness: Alert Patient Behavior: Talkative and Good Eye Contact Mood Description: Flat Affect Description: Flat Patient Cognition Impaired: No Ability to Follow Directions: Good Speech Pattern: Spontaneous Speech Memory Description: Episodic Impaired Hallucinations: None Perceptual Disturbances: Derealization Thought Process: Rumination Thought Content: positive for Circumstantial, positive for Perseveration and positive for Suicidal Ideation (denies) Depressive Symptoms: Increased Fatigue and Low Self Esteem Judgement: Fair Diagnostics Vital Signs (24Hr): Vital Signs - 24 hr 01/08/25 20:09 01/08/25 21:27 01/09/25 08:00 Temperature 97.8 F 98.3 F Pulse Rate 94 86 Respiratory Rate 18 Blood Pressure 119/60 119/60 130/64 Pulse Oximetry 94 99 Oxygen Delivery Method BiPAP Humidified O2 Room Air BMI result Body Mass Index 54.7 Labs 01/06/25 15:22 01/06/25 15:22 Labs: Laboratory Results - last 48 hr 01/07/25 19:31 T.pallidum Ab (EIA) Nonreactive HIV 1&2 Ab/P24 Ag 4thGn Nonreactive Imaging Radiology Impressions: ITS Impressions Chest X-Ray 01/08/25 14:24 IMPRESSION: Low lung volumes without definite active disease. Electronically signed by: Foster Mckinnon MD 01/08/2025 02:37 PM [facility] Medications Medications Current Medications Acetaminophen (Acetaminophen 325 Mg Tablet) 650 mg PO Q6H PRN PRN Reason: Headache/Pain, Scale 1-10 Last Admin: 11/19/25 17:55 Dose: 650 mg Al Hydroxide/Mg Hydroxide (Magnesium Hydrox/Alum Hydrox 30 Ml Oral.Susp) 30 ml PO Q6H PRN PRN Reason: Heartburn/Nausea Albuterol Sulfate (Albuterol Sulfate 90 Mcg 8 Gm Inhaler) 1 puff INHALE QID PRN PRN Reason: Wheezing Amlodipine Besylate (Amlodipine Besylate 10 Mg Tablet) 10 mg PO DAILY [facility]; Protocol Last Admin: 01/09/25 08:45 Dose: 10 mg Cyclobenzaprine HCl (Cyclobenzaprine Hcl 10 Mg Tablet) 10 mg PO TID PRN PRN Reason: back muscle spasm Docusate Sodium (Docusate Sodium 100 Mg Capsule) 100 mg PO BID PRN PRN Reason: Constipation Duloxetine HCl (Duloxetine Hcl 30 Mg Capsule.Dr) 30 mg PO DAILY [facility] Last Admin: 01/09/25 08:46 Dose: 30 mg Folic Acid (Folic Acid 1 Mg Tablet) 1 mg PO DAILY [facility] Last Admin: 01/09/25 08:46 Dose: 1 mg Gabapentin (Gabapentin 400 Mg Capsule) 800 mg PO TID [facility] Last Admin: 01/09/25 08:45 Dose: 800 mg Haloperidol (Haloperidol 5 Mg Tablet) 10 mg PO BEDTIME [facility] Last Admin: 01/08/25 21:26 Dose: 10 mg Haloperidol (Haloperidol 0.5 Mg Tablet) 0.25 mg PO Q6H PRN PRN Reason: Psychosis Last Admin: 01/08/25 17:54 Dose: 0.25 mg Hydroxyzine HCl (Hydroxyzine Hcl 25 Mg Tablet) 50 mg PO Q6H PRN PRN Reason: mild anxiety Last Admin: 01/08/25 13:07 Dose: 50 mg Lactic Acid (Ammonium Lactate 12 % Lotion 226 Gm Bottle) 1 appl TOPICAL DAILY [facility]; Protocol Last Admin: 01/09/25 08:45 Dose: 1 appl Lamotrigine (Lamotrigine 25 Mg Tablet) 25 mg PO DAILY [facility] Last Admin: 01/09/25 08:46 Dose: 25 mg Loratadine (Loratadine 10 Mg Tablet) 10 mg PO DAILY [facility] Last Admin: 01/09/25 08:46 Dose: 10 mg Lorazepam (Lorazepam 1 Mg Tablet) 1 mg PO Q2H PRN PRN Reason: ciwa 6-10 Last Admin: 01/08/25 13:07 Dose: 1 mg Lorazepam (Lorazepam 1 Mg Tablet) 2 mg PO Q2H PRN PRN Reason: ciwa 11+ Last Admin: 01/07/25 18:30 Dose: 2 mg Lorazepam (Lorazepam 0.5 Mg Tablet) 0.5 mg PO Q4H PRN PRN Reason: Anxiety Last Admin: 01/08/25 17:54 Dose: 0.5 mg Losartan Potassium (Losartan Potassium 50 Mg Tablet) 50 mg PO DAILY [facility]; Protocol Last Admin: 01/09/25 08:46 Dose: 50 mg Magnesium Hydroxide (Milk Of Magnesia 30 Ml Oral.Susp) 30 ml PO DAILY PRN PRN Reason: Constipation Melatonin (Melatonin 3 Mg Tablet) 3 mg PO BEDTIME PRN PRN Reason: Sleep Metformin HCl (Metformin Hcl Er 500 Mg Tab.Er.24h) 500 mg PO BID [facility] Last Admin: 01/09/25 08:45 Dose: 500 mg Metoprolol Succinate (Metoprolol Succinate Er 50 Mg Tab.Er.24h) 50 mg PO DAILY [facility]; Protocol Last Admin: 01/09/25 08:45 Dose: 50 mg Multivitamins/Vitamin C (Multivitamin Tablet) 1 tab PO DAILY [facility] Last Admin: 01/09/25 08:46 Dose: 1 tab Naltrexone HCl (Naltrexone Hcl 50 Mg Tablet) 50 mg PO DAILY [facility] Nicotine (Nicotine 21 Mg Patch.Td24) 21 mg TRANSDERMA DAILY [facility] Last Admin: 01/09/25 08:46 Dose: 21 mg Nicotine Polacrilex (Nicotine Polacrilex 2 Mg Gum) 4 mg BUCCAL Q2H PRN PRN Reason: Nicotine Cravings Pt Own (Tirzepatide [Mounjaro] 2.5 Mg/0. 5 Ml Pen Injector) 2.5 mg SUBCUT Q7D [facility] Last Admin: 01/07/25 15:59 Dose: 2.5 mg Omeprazole (Omeprazole 20 Mg Capsule.Dr) 20 mg PO DAILY@0630 [facility] Last Admin: 01/09/25 06:46 Dose: 20 mg Ondansetron HCl (Ondansetron Odt 4 Mg Tab.Rapdis) 4 mg TRANSLINGU Q8H PRN PRN Reason: Nausea and Vomiting Last Admin: 01/09/25 08:55 Dose: 4 mg Polyethylene Glycol (Polyethylene Glycol 3350 17 Gm Powd.Pack) 17 gm PO DAILY [facility] Last Admin: 01/09/25 08:57 Dose: Not Given Prazosin HCl (Prazosin Hcl 1 Mg Capsule) 4 mg PO BEDTIME [facility]; Protocol Last Admin: 01/08/25 21:27 Dose: 4 mg Thiamine HCl (Thiamine Hcl 100 Mg Tablet) 100 mg PO DAILY [facility] Last Admin: 01/09/25 08:46 Dose: 100 mg Tiotropium Meredith (Tiotropium Meredith 2.5 Mcg 1 Puff/2.5 Mcg Mist.Inhal) 2 puff INHALE RDAILY [facility] Last Admin: 01/09/25 08:44 Dose: 2 puff Trazodone HCl (Trazodone Hcl 50 Mg Tablet) 100 mg PO BEDTIME [facility] Last Admin: 01/08/25 21:26 Dose: 100 mg Allergies Allergies Allergy/AdvReac Type Severity Reaction Status Date / Time lisinopril Allergy Unknown Cough Verified 01/06/25 15:02 clonidine AdvReac Unknown Unknown Verified 01/06/25 15:02 Assessment & Plan Assessment & Plan (1) Sleep related hypoxia: Status: Acute Code(s): G47.34 - Idiopathic sleep related nonobstructive alveolar hypoventilation (2) Schizoaffective disorder: Status: Acute Code(s): F25.9 - Schizoaffective disorder, unspecified (3) Depression with suicidal ideation: Status: Acute Code(s): F32.A - Depression, unspecified; R45.851 - Suicidal ideations (4) Alcohol use disorder: Status: Acute Code(s): F10.90 - Alcohol use, unspecified, uncomplicated (5) Cannabis use disorder: Status: Acute Code(s): F12.90 - Cannabis use, unspecified, uncomplicated Plan 34-year-old male with past medical history listed below presented to the emergency department with suicidal ideation. Admitted for inpatient stabilization. Schizoaffective disorder/suicidal ideation/substance use disorder/alcohol use disorder Treatment per psychiatric team Type 2 diabetes Continue metformin b.i.d. Continue Mari Recent A1c 5.8 done in August. Hypertension Continue amlodipine and Cozaar, Toprol Blood pressure stable ESHA on CPAP/Sleep-related hypoxia Patient utilizing CPAP at Will need CPAP use during nap time or supplemental oxygen to maintain sats greater than 90% Thank you for allowing me to participate in the care of this patient. Will follow with you, please notify medical provider with any changes in condition or concerns. 01/09/25: Decrease Gabapentin to 600 mg tid SARS/RSV/Flu EMycin Opth tid to both eyes Patient educated on: medication risk/benefits and therapeutic strategies Informed Consent: understands Reason for continued inpatient stay Substantial Risk for: rapid decompensation and med/psych decompensation Time Spent With Patient Time: Total time managing care of this patient today ____ minutes.
[2025-01-09 18:35] LABS: Resp Syncy Virus RNA Qual PCR NEGATIVE (Negative); SARS COV2 PCR INHOUSE NEGATIVE (Negative)
[2025-01-09 21:13] VITALS: BP 129/71
[2025-01-09] MEDS: Erythromycin Base 0.5% Oph Oin 1 GM TUBE 1 CM EYE-BOTH (21:13)
[2025-01-09 21:24] VITALS: BP 129/71; PULSE 91; RESP 20; TEMP 36.6; O2SAT 95
[2025-01-10 05:34] LABS: CT PCR Urine NOT DETECTED (Not Detect.); NG PCR Urine NOT DETECTED (Not Detect.)
[2025-01-10 08:10] LABS: Cholesterol 150 mg/dL (<200); HDL Cholesterol 32 mg/dL (>40); Magnesium 1.8 mg/dL (1.6-2.6); Triglycerides 239 mg/dL (<150)
[2025-01-10 08:25] LABS: Free T4 (Free Thyroxine) 0.99 ng/dL (0.71-1.85); Thyroid Stimulating Hormone 0.61 uIU/mL (0.32-4.0)
[2025-01-10 08:42] LABS: Folate 11.1 ng/mL (> or = 4.0); Vitamin B12 508 pg/mL (200-900)
[2025-01-10] MEDS: Tiotropium Bromide 2.5 mcg 1 PUFF/2.5 MCG MIST.INHAL 2 PUFF INHALE (08:46)
[2025-01-10] MEDS: Nicotine 21 MG PATCH.TD24 TRANSDERMA (08:47)
[2025-01-10] MEDS: Ammonium Lactate 12 % Lotion 226 GM BOTTLE 1 APPL TOPICAL (08:50)
[2025-01-10] MEDS: Erythromycin Base 0.5% Oph Oin 1 GM TUBE 1 CM EYE-BOTH (08:52)
[2025-01-10 09:05] VITALS: BP 143/92; PULSE 111
[2025-01-10] MEDS: Metoprolol Succinate ER 50 MG TAB.ER.24H PO (09:05)
[2025-01-10 09:06] VITALS: BP 143/92
[2025-01-10 09:36] VITALS: BP 143/92; PULSE 111; RESP 16; TEMP 36.4; O2SAT 96
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
--- NOTE | 2025-01-10 10:55 | PM.EVENT ---
Event Note Date of Service: 01/10/25 Event Note: Conjunctivitis, primarily left eye, started on erythromycin. reports no change in vision. Due to recent history of gonorrhea, we will change to moxifloxacin. Discussed with Dr. Fan of Ophthalmology, no need for ophthalmology evaluation unless patient cornea changes color. reporting cough, requesting cough medication, denies fever or sob. recent cxr negative. Flu, RSV, covid negative 01/09 Time Spent With Patient Time: Total time managing care of this patient today ____ minutes.
[2025-01-10] MEDS: Moxifloxacin HCl 0.5 % Oph Sol 3 ML DRPBTL 1 DROP EYE-BOTH ×2 (11:36→14:06)
[2025-01-10 20:00] VITALS: BP 140/90; PULSE 93; RESP 20; TEMP 36.4; O2SAT 93
[2025-01-10 21:18] VITALS: BP 140/90
[2025-01-11 08:00] VITALS: BP 133/75; PULSE 93; RESP 20; TEMP 36.4; O2SAT 97
[2025-01-11] MEDS: Metoprolol Succinate ER 50 MG TAB.ER.24H PO (08:54)
[2025-01-11] MEDS: Nicotine 21 MG PATCH.TD24 TRANSDERMA (08:57)
[2025-01-11] MEDS: Tiotropium Bromide 2.5 mcg 1 PUFF/2.5 MCG MIST.INHAL 2 PUFF INHALE (09:01)
[2025-01-11] MEDS: Moxifloxacin HCl 0.5 % Oph Sol 3 ML DRPBTL 1 DROP EYE-BOTH ×3 (09:01→20:42)
--- NOTE | 2025-01-11 11:54 | HO.PSYCHPN ---
Subjective Subjective Date of Service: 01/11/25 Reason For Visit: schizoaffective disorder Interim History: Met with patient; discussed with team; reviewed chart Patient says he is overall doing okay but has ongoing AH that Haldol does not seem to help much. Patient and chief underwriter looked in saw that he is due for Haldol decanoate this coming Monday. Patient said that Haldol used to work well but then it seemed to stop working. Discussed other options in the past that he thinks that Clozaril helped before but for some reason he was taken off the and does not know why. Patient agreed to discuss further with primary team provider on returned this Monday Mental Status Exam Mental Status Exam Narrative: Pt is alert and oriented; behavior is cooperative, friendly and calm; patient is not in distress; dressed in casual attire; obese with unkempt hair but adequate hygiene; mood is described as okay and affect congruent; eye contact appropriate; Speech is normal rate, volume and prosody and not pressured; no psychomotor agitation/retardation present; thought process is organized and goal directed; Thought content is on tx and dealing with AH; otherwise pertinent to relevant topics; no delusional ideations expressed; denies any SI/HI. Ongoing bothersome AH Patients insight and judgment appear intact. Diagnostics Vital Signs (24Hr): Vital Signs - 24 hr 01/10/25 20:00 01/10/25 21:18 01/11/25 08:00 Temperature 97.5 F 97.6 F Pulse Rate 93 93 Respiratory Rate 20 20 Blood Pressure 140/90 H 140/90 H 133/75 Pulse Oximetry 93 97 Oxygen Delivery Method Room Air Room Air BMI result Body Mass Index 56.3 Labs 01/06/25 15:22 01/06/25 15:22 Labs: Laboratory Results - last 48 hr 01/09/25 01/10/25 17:50 07:42 Estimat Average Glucose 131 Hemoglobin A1c % 6.2 H Magnesium 1.8 Triglycerides 239 H Cholesterol 150 LDL Cholesterol, Calc 71 HDL Cholesterol 32 L Vitamin B12 508 Folate 11.1 TSH 0.61 Free T4 0.99 Ur N gonorrhoeae DNA (PCR) NOT DETECTED Ur Chlamydia DNA (PCR) NOT DETECTED Influenza Type A (PCR) NEGATIVE Influenza Type B (PCR) NEGATIVE RSV RNA Qual (PCR) NEGATIVE SARS-CoV-2 RNA (RT-PCR) NEGATIVE Imaging Radiology Impressions: ITS Impressions Chest X-Ray 01/08/25 14:24 IMPRESSION: Low lung volumes without definite active disease. Electronically signed by: Foster Mckinnon MD 01/08/2025 02:37 PM [facility] Medications Medications Current Medications Acetaminophen (Acetaminophen 325 Mg Tablet) 650 mg PO Q6H PRN PRN Reason: Headache/Pain, Scale 1-10 Last Admin: 01/10/25 11:23 Dose: 650 mg Al Hydroxide/Mg Hydroxide (Magnesium Hydrox/Alum Hydrox 30 Ml Oral.Susp) 30 ml PO Q6H PRN PRN Reason: Heartburn/Nausea Albuterol Sulfate (Albuterol Sulfate 90 Mcg 8 Gm Inhaler) 1 puff INHALE QID PRN PRN Reason: Wheezing Amlodipine Besylate (Amlodipine Besylate 10 Mg Tablet) 10 mg PO DAILY [facility]; Protocol Last Admin: 01/11/25 08:53 Dose: 10 mg Benztropine Mesylate (Benztropine Mesylate 1 Mg Tablet) 1 mg PO BID [facility] Last Admin: 01/11/25 08:54 Dose: 1 mg Cyclobenzaprine HCl (Cyclobenzaprine Hcl 10 Mg Tablet) 10 mg PO TID PRN PRN Reason: back muscle spasm Last Admin: 01/11/25 09:07 Dose: 10 mg Docusate Sodium (Docusate Sodium 100 Mg Capsule) 100 mg PO BID PRN PRN Reason: Constipation Last Admin: 01/11/25 09:16 Dose: 100 mg Duloxetine HCl (Duloxetine Hcl 30 Mg Capsule.Dr) 30 mg PO DAILY [facility] Last Admin: 01/11/25 08:53 Dose: 30 mg Folic Acid (Folic Acid 1 Mg Tablet) 1 mg PO DAILY [facility] Last Admin: 01/11/25 08:54 Dose: 1 mg Gabapentin (Gabapentin 300 Mg Capsule) 600 mg PO TID [facility] Last Admin: 01/11/25 08:54 Dose: 600 mg Guaifenesin/Dextromethorphan (Guaifenesin Dm 100/10/5 Ml 5 Ml Syrup) 5 ml PO Q6H PRN PRN Reason: Cough Haloperidol (Haloperidol 5 Mg Tablet) 10 mg PO BID [facility] Last Admin: 01/11/25 08:54 Dose: 10 mg Haloperidol (Haloperidol 5 Mg Tablet) 5 mg PO Q6H PRN PRN Reason: Psychosis Last Admin: 01/11/25 09:18 Dose: 5 mg Haloperidol Decanoate (Haloperidol Decanoate 50 Mg/Ml Vial) 100 mg IM ONCE ONE Stop: 01/13/25 09:01 Hydroxyzine HCl (Hydroxyzine Hcl 25 Mg Tablet) 50 mg PO Q6H PRN PRN Reason: mild anxiety Last Admin: 01/11/25 09:20 Dose: 50 mg Lactic Acid (Ammonium Lactate 12 % Lotion 226 Gm Bottle) 1 appl TOPICAL DAILY [facility]; Protocol Last Admin: 01/11/25 09:44 Dose: Not Given Lamotrigine (Lamotrigine 25 Mg Tablet) 25 mg PO DAILY [facility] Last Admin: 01/11/25 08:55 Dose: 25 mg Loratadine (Loratadine 10 Mg Tablet) 10 mg PO DAILY [facility] Last Admin: 01/11/25 08:53 Dose: 10 mg Lorazepam (Lorazepam 1 Mg Tablet) 1 mg PO Q2H PRN PRN Reason: ciwa 6-10 Last Admin: 01/08/25 13:07 Dose: 1 mg Losartan Potassium (Losartan Potassium 50 Mg Tablet) 50 mg PO DAILY [facility]; Protocol Last Admin: 01/11/25 08:54 Dose: 50 mg Magnesium Hydroxide (Milk Of Magnesia 30 Ml Oral.Susp) 30 ml PO DAILY PRN PRN Reason: Constipation Melatonin (Melatonin 3 Mg Tablet) 3 mg PO BEDTIME PRN PRN Reason: Sleep Metformin HCl (Metformin Hcl Er 500 Mg Tab.Er.24h) 500 mg PO BID [facility] Last Admin: 01/11/25 08:54 Dose: 500 mg Metoprolol Succinate (Metoprolol Succinate Er 50 Mg Tab.Er.24h) 50 mg PO DAILY [facility]; Protocol Last Admin: 01/11/25 08:54 Dose: 50 mg Moxifloxacin HCl (Moxifloxacin Hcl 0.5 % Oph Francia 3 Ml Drpbtl) 1 drop EYE-BOTH TID [facility] Stop: 01/17/25 10:30 Last Admin: 01/11/25 09:01 Dose: 1 drop Multivitamins/Vitamin C (Multivitamin Tablet) 1 tab PO DAILY [facility] Last Admin: 01/11/25 08:54 Dose: 1 tab Naltrexone HCl (Naltrexone Hcl 50 Mg Tablet) 50 mg PO DAILY [facility] Last Admin: 01/11/25 08:54 Dose: 50 mg Nicotine (Nicotine 21 Mg Patch.Td24) 21 mg TRANSDERMA DAILY [facility] Last Admin: 01/11/25 08:57 Dose: 21 mg Nicotine Polacrilex (Nicotine Polacrilex 2 Mg Gum) 4 mg BUCCAL Q2H PRN PRN Reason: Nicotine Cravings Last Admin: 01/11/25 09:08 Dose: 4 mg Pt Own (Tirzepatide [Mounjaro] 2.5 Mg/0. 5 Ml Pen Injector) 2.5 mg SUBCUT Q7D [facility] Last Admin: 01/07/25 15:59 Dose: 2.5 mg Omeprazole (Omeprazole 20 Mg Capsule.Dr) 20 mg PO DAILY@0630 [facility] Last Admin: 01/11/25 06:53 Dose: 20 mg Ondansetron HCl (Ondansetron Odt 4 Mg Tab.Rapdis) 4 mg TRANSLINGU Q8H PRN PRN Reason: Nausea and Vomiting Last Admin: 01/09/25 08:55 Dose: 4 mg Polyethylene Glycol (Polyethylene Glycol 3350 17 Gm Powd.Pack) 17 gm PO DAILY [facility] Last Admin: 01/11/25 08:59 Dose: Not Given Prazosin HCl (Prazosin Hcl 1 Mg Capsule) 4 mg PO BEDTIME [facility]; Protocol Last Admin: 01/10/25 21:18 Dose: 4 mg Thiamine HCl (Thiamine Hcl 100 Mg Tablet) 100 mg PO DAILY [facility] Last Admin: 01/11/25 08:54 Dose: 100 mg Tiotropium [place] (Tiotropium [place] 2.5 Mcg 1 Puff/2.5 Mcg Mist.Inhal) 2 puff INHALE RDAILY [facility] Last Admin: 01/11/25 09:01 Dose: 2 puff Trazodone HCl (Trazodone Hcl 50 Mg Tablet) 100 mg PO BEDTIME [facility] Last Admin: 01/10/25 21:19 Dose: 100 mg Allergies Allergies Allergy/AdvReac Type Severity Reaction Status Date / Time lisinopril Allergy Unknown Cough Verified 01/06/25 15:02 clonidine AdvReac Unknown Unknown Verified 01/06/25 15:02 Assessment & Plan Assessment & Plan (1) Sleep related hypoxia: Status: Acute Code(s): G47.34 - Idiopathic sleep related nonobstructive alveolar hypoventilation (2) Schizoaffective disorder: Status: Acute Code(s): F25.9 - Schizoaffective disorder, unspecified (3) Depression with suicidal ideation: Status: Acute Code(s): F32.A - Depression, unspecified; R45.851 - Suicidal ideations (4) Alcohol use disorder: Status: Acute Code(s): F10.90 - Alcohol use, unspecified, uncomplicated (5) Cannabis use disorder: Status: Acute Code(s): F12.90 - Cannabis use, unspecified, uncomplicated Plan 34-year-old male with past medical history listed below presented to the emergency department with suicidal ideation. Admitted for inpatient stabilization. Schizoaffective disorder/suicidal ideation/substance use disorder/alcohol use disorder Treatment per psychiatric team Type 2 diabetes Continue metformin b.i.d. Continue Mounjaro Recent A1c 5.8 done in August. Hypertension Continue amlodipine and Cozaar, Toprol Blood pressure stable ESHA on CPAP/Sleep-related hypoxia Patient utilizing CPAP at HS Will need CPAP use during nap time or supplemental oxygen to maintain sats greater than 90% Thank you for allowing me to participate in the care of this patient. Will follow with you, please notify medical provider with any changes in condition or concerns. 01/09/25: Decrease Gabapentin to 600 mg tid SARS/RSV/Flu EMycin Opth tid to both eyes 01/10/25: Emycin change to moxifloxacin Watch for the color of cornea to change- if this is observed, pt may need culture. Watch for excessive purulent discharge-if this is observed, pt may need culture 01/11 Patient says he is overall doing okay but has ongoing AH that Haldol does not seem to help much. Patient and chief underwriter looked in saw that he is due for Haldol decanoate this coming Monday. Patient said that Haldol used to work well but then it seemed to stop working. Discussed other options in the past that he thinks that Clozaril helped before but for some reason he was taken off the and does not know why. Patient agreed to discuss further with primary team provider on returned this Monday -no change in cornea; no discharge Regarding medications: -will hold Haldol decanoate for now so that patient can discuss this with Anna on her return -patient says Clozaril used to help and it was stopped for some unknown reason; he does not know if there was a medication side effect or not Patient educated on: diagnosis, medication risk/benefits and medical condition Informed Consent: understands Reason for continued inpatient stay Substantial Risk for: rapid decompensation Time Spent With Patient Time: Total time managing care of this patient today ____ minutes.
[2025-01-11 20:00] VITALS: BP 164/90; PULSE 91; TEMP 37.1; O2SAT 93
[2025-01-11 20:42] VITALS: BP 164/90
[2025-01-12 09:05] VITALS: BP 146/80; PULSE 92; RESP 18; TEMP 36.9; O2SAT 97
[2025-01-12] MEDS: Moxifloxacin HCl 0.5 % Oph Sol 3 ML DRPBTL 1 DROP EYE-BOTH ×3 (09:44→21:48)
[2025-01-12] MEDS: Tiotropium Bromide 2.5 mcg 1 PUFF/2.5 MCG MIST.INHAL 2 PUFF INHALE (09:46)
--- NOTE | 2025-01-12 09:46 | HO.PSYCHPN ---
Subjective Subjective Date of Service: 01/12/25 Reason For Visit: schizoaffective disorder Interim History: Met with patient; discussed with team Patient reports ongoing AH which is bothersome; discussed medication options and he agrees to hold off on getting Haldol decanoate tomorrow and instead discuss other options with a p.r.n. including Clozaril which he said helped in the past. Mental Status Exam Mental Status Exam Narrative: Pt is alert and oriented; behavior is cooperative, friendly and calm; patient is not in distress; dressed in casual attire; obese with unkempt hair but adequate hygiene; mood is described as okay and affect congruent; eye contact appropriate; Speech is normal rate, volume and prosody and not pressured; no psychomotor agitation/retardation present; thought process is organized and goal directed; Thought content is on tx and dealing with AH; otherwise pertinent to relevant topics; no delusional ideations expressed; denies any SI/HI. Ongoing bothersome AH Patients insight and judgment appear intact. Diagnostics Vital Signs (24Hr): Vital Signs - 24 hr 01/11/25 20:00 01/11/25 20:42 Temperature 98.8 F Pulse Rate 91 Blood Pressure 164/90 H 164/90 H Pulse Oximetry 93 Oxygen Delivery Method Room Air BMI result Body Mass Index 56.3 Labs 01/06/25 15:22 01/06/25 15:22 Imaging Radiology Impressions: ITS Impressions Chest X-Ray 01/08/25 14:24 IMPRESSION: Low lung volumes without definite active disease. Electronically signed by: Foster Mckinnon MD 01/08/2025 02:37 PM [facility] [place] Medications Medications Current Medications Acetaminophen (Acetaminophen 325 Mg Tablet) 650 mg PO Q6H PRN PRN Reason: Headache/Pain, Scale 1-10 Last Admin: 01/10/25 11:23 Dose: 650 mg Al Hydroxide/Mg Hydroxide (Magnesium Hydrox/Alum Hydrox 30 Ml Oral.Susp) 30 ml PO Q6H PRN PRN Reason: Heartburn/Nausea Albuterol Sulfate (Albuterol Sulfate 90 Mcg 8 Gm Inhaler) 1 puff INHALE QID PRN PRN Reason: Wheezing Amlodipine Besylate (Amlodipine Besylate 10 Mg Tablet) 10 mg PO DAILY [facility]; Protocol Last Admin: 01/11/25 08:53 Dose: 10 mg Benztropine Mesylate (Benztropine Mesylate 1 Mg Tablet) 1 mg PO BID [facility] Last Admin: 01/11/25 20:43 Dose: 1 mg Cyclobenzaprine HCl (Cyclobenzaprine Hcl 10 Mg Tablet) 10 mg PO TID [facility] Last Admin: 01/11/25 20:43 Dose: 10 mg Docusate Sodium (Docusate Sodium 100 Mg Capsule) 100 mg PO BID PRN PRN Reason: Constipation Last Admin: 01/11/25 09:16 Dose: 100 mg Duloxetine HCl (Duloxetine Hcl 30 Mg Capsule.Dr) 30 mg PO DAILY [facility] Last Admin: 01/11/25 08:53 Dose: 30 mg Folic Acid (Folic Acid 1 Mg Tablet) 1 mg PO DAILY [facility] Last Admin: 01/11/25 08:54 Dose: 1 mg Gabapentin (Gabapentin 300 Mg Capsule) 600 mg PO TID [facility] Last Admin: 01/11/25 20:43 Dose: 600 mg Guaifenesin/Dextromethorphan (Guaifenesin Dm 100/10/5 Ml 5 Ml Syrup) 5 ml PO Q6H PRN PRN Reason: Cough Haloperidol (Haloperidol 5 Mg Tablet) 10 mg PO BID [facility] Last Admin: 01/11/25 20:43 Dose: 10 mg Haloperidol (Haloperidol 5 Mg Tablet) 5 mg PO Q6H PRN PRN Reason: Psychosis Last Admin: 01/11/25 09:18 Dose: 5 mg Haloperidol Decanoate (Haloperidol Decanoate 50 Mg/Ml Vial) 100 mg IM ONCE ONE Stop: 01/13/25 09:01 Hydroxyzine HCl (Hydroxyzine Hcl 25 Mg Tablet) 50 mg PO Q6H PRN PRN Reason: mild anxiety Last Admin: 01/11/25 09:20 Dose: 50 mg Ibuprofen (Ibuprofen 600 Mg Tablet) 600 mg PO Q8H PRN PRN Reason: back pain Last Admin: 01/12/25 06:37 Dose: 600 mg Lactic Acid (Ammonium Lactate 12 % Lotion 226 Gm Bottle) 1 appl TOPICAL DAILY [facility]; Protocol Last Admin: 01/11/25 09:44 Dose: Not Given Lamotrigine (Lamotrigine 25 Mg Tablet) 25 mg PO DAILY [facility] Last Admin: 01/11/25 08:55 Dose: 25 mg Loratadine (Loratadine 10 Mg Tablet) 10 mg PO DAILY [facility] Last Admin: 01/11/25 08:53 Dose: 10 mg Lorazepam (Lorazepam 1 Mg Tablet) 1 mg PO Q2H PRN PRN Reason: ciwa 6-10 Last Admin: 01/08/25 13:07 Dose: 1 mg Losartan Potassium (Losartan Potassium 50 Mg Tablet) 50 mg PO DAILY [facility]; Protocol Last Admin: 01/11/25 08:54 Dose: 50 mg Magnesium Hydroxide (Milk Of Magnesia 30 Ml Oral.Susp) 30 ml PO DAILY PRN PRN Reason: Constipation Melatonin (Melatonin 3 Mg Tablet) 3 mg PO BEDTIME PRN PRN Reason: Sleep Metformin HCl (Metformin Hcl Er 500 Mg Tab.Er.24h) 500 mg PO BID [facility] Last Admin: 01/11/25 20:43 Dose: 500 mg Metoprolol Succinate (Metoprolol Succinate Er 50 Mg Tab.Er.24h) 50 mg PO DAILY [facility]; Protocol Last Admin: 01/11/25 08:54 Dose: 50 mg Moxifloxacin HCl (Moxifloxacin Hcl 0.5 % Oph Francia 3 Ml Drpbtl) 1 drop EYE-BOTH TID [facility] Stop: 01/17/25 10:30 Last Admin: 01/11/25 20:42 Dose: 1 drop Multivitamins/Vitamin C (Multivitamin Tablet) 1 tab PO DAILY [facility] Last Admin: 01/11/25 08:54 Dose: 1 tab Naltrexone HCl (Naltrexone Hcl 50 Mg Tablet) 50 mg PO DAILY [facility] Last Admin: 01/11/25 08:54 Dose: 50 mg Nicotine (Nicotine 21 Mg Patch.Td24) 21 mg TRANSDERMA DAILY [facility] Last Admin: 01/11/25 08:57 Dose: 21 mg Nicotine Polacrilex (Nicotine Polacrilex 2 Mg Gum) 4 mg BUCCAL Q2H PRN PRN Reason: Nicotine Cravings Last Admin: 01/11/25 09:08 Dose: 4 mg Pt Own (Tirzepatide [Mounjaro] 2.5 Mg/0. 5 Ml Pen Injector) 2.5 mg SUBCUT Q7D [facility] Last Admin: 01/07/25 15:59 Dose: 2.5 mg Omeprazole (Omeprazole 20 Mg Capsule.Dr) 20 mg PO DAILY@0630 [facility] Last Admin: 01/12/25 06:31 Dose: 20 mg Ondansetron HCl (Ondansetron Odt 4 Mg Tab.Rapdis) 4 mg TRANSLINGU Q8H PRN PRN Reason: Nausea and Vomiting Last Admin: 01/11/25 12:34 Dose: 4 mg Polyethylene Glycol (Polyethylene Glycol 3350 17 Gm Powd.Pack) 17 gm PO DAILY [facility] Last Admin: 01/11/25 08:59 Dose: Not Given Prazosin HCl (Prazosin Hcl 1 Mg Capsule) 4 mg PO BEDTIME [facility]; Protocol Last Admin: 01/11/25 20:42 Dose: 4 mg Thiamine HCl (Thiamine Hcl 100 Mg Tablet) 100 mg PO DAILY [facility] Last Admin: 01/11/25 08:54 Dose: 100 mg Tiotropium [place] (Tiotropium [place] 2.5 Mcg 1 Puff/2.5 Mcg Mist.Inhal) 2 puff INHALE RDAILY [facility] Last Admin: 01/11/25 09:01 Dose: 2 puff Trazodone HCl (Trazodone Hcl 50 Mg Tablet) 100 mg PO BEDTIME [facility] Last Admin: 01/11/25 20:42 Dose: 100 mg Allergies Allergies Allergy/AdvReac Type Severity Reaction Status Date / Time lisinopril Allergy Unknown Cough Verified 01/06/25 15:02 clonidine AdvReac Unknown Unknown Verified 01/06/25 15:02 Assessment & Plan Assessment & Plan (1) Sleep related hypoxia: Status: Acute Code(s): G47.34 - Idiopathic sleep related nonobstructive alveolar hypoventilation (2) Schizoaffective disorder: Status: Acute Code(s): F25.9 - Schizoaffective disorder, unspecified (3) Depression with suicidal ideation: Status: Acute Code(s): F32.A - Depression, unspecified; R45.851 - Suicidal ideations (4) Alcohol use disorder: Status: Acute Code(s): F10.90 - Alcohol use, unspecified, uncomplicated (5) Cannabis use disorder: Status: Acute Code(s): F12.90 - Cannabis use, unspecified, uncomplicated Plan 34-year-old male with past medical history listed below presented to the emergency department with suicidal ideation. Admitted for inpatient stabilization. Schizoaffective disorder/suicidal ideation/substance use disorder/alcohol use disorder Treatment per psychiatric team Type 2 diabetes Continue metformin b.i.d. Continue Mari Recent A1c 5.8 done in August. Hypertension Continue amlodipine and Cozaar, Toprol Blood pressure stable ESHA on CPAP/Sleep-related hypoxia Patient utilizing CPAP at HS Will need CPAP use during nap time or supplemental oxygen to maintain sats greater than 90% Thank you for allowing me to participate in the care of this patient. Will follow with you, please notify medical provider with any changes in condition or concerns. 01/09/25: Decrease Gabapentin to 600 mg tid SARS/RSV/Flu EMycin Opth tid to both eyes 01/10/25: Emycin change to moxifloxacin Watch for the color of cornea to change- if this is observed, pt may need culture. Watch for excessive purulent discharge-if this is observed, pt may need culture 01/11 Patient says he is overall doing okay but has ongoing AH that Haldol does not seem to help much. 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 Patient said that Haldol used to work well but then it seemed to stop working. Discussed other options in the past that he thinks that Clozaril helped before but for some reason he was taken off the and does not know why. Patient agreed to discuss further with primary team provider on returned this Monday -no change in cornea; no discharge Regarding medications: -will hold Haldol decanoate for now so that patient can discuss this with Anna on her return -patient says Clozaril used to help and it was stopped for some unknown reason; he does not know if there was a medication side effect or not 01/12 ongoing bothersome AH; continue treatment plan; holding Haldol deck for now and patient will discuss tomorrow with primary team provider Patient educated on: diagnosis and medication risk/benefits Informed Consent: understands Reason for continued inpatient stay Substantial Risk for: rapid decompensation Time Spent With Patient Time: Total time managing care of this patient today ____ minutes.
[2025-01-12] MEDS: Ammonium Lactate 12 % Lotion 226 GM BOTTLE 1 APPL TOPICAL (09:47)
[2025-01-12] MEDS: Nicotine 21 MG PATCH.TD24 TRANSDERMA (09:48)
[2025-01-12] MEDS: Metoprolol Succinate ER 50 MG TAB.ER.24H PO (09:48)
[2025-01-12 20:00] VITALS: BP 132/66; PULSE 88; RESP 16; TEMP 36.3; O2SAT 94
[2025-01-12 21:43] VITALS: BP 132/66
[2025-01-13 08:00] VITALS: BP 125/80; PULSE 97; RESP 20; TEMP 36.9; O2SAT 94
[2025-01-13] MEDS: Moxifloxacin HCl 0.5 % Oph Sol 3 ML DRPBTL 1 DROP EYE-BOTH ×2 (09:08→21:19)
[2025-01-13 09:10] VITALS: BP 125/80; PULSE 97
[2025-01-13] MEDS: Metoprolol Succinate ER 50 MG TAB.ER.24H PO (09:10)
[2025-01-13 09:11] VITALS: BP 125/80
[2025-01-13] MEDS: Tiotropium Bromide 2.5 mcg 1 PUFF/2.5 MCG MIST.INHAL 2 PUFF INHALE (09:11)
[2025-01-13] MEDS: Nicotine 21 MG PATCH.TD24 TRANSDERMA (09:12)
[2025-01-13 09:14] VITALS: BP 125/80
[2025-01-13] MEDS: Ammonium Lactate 12 % Lotion 226 GM BOTTLE 1 APPL TOPICAL (09:20)
--- NOTE | 2025-01-13 10:03 | HO.PSYCHPN ---
Subjective Subjective Date of Service: 01/13/25 Reason For Visit: schizoaffective disorder Subjective Notes: Conditional Voluntary Healthcare Proxy: No Guardianship: No Medical Problems Affecting Mental Status: No Interim History: Pt appears to have a clearer thought process with Haldol increase. Over the weekend he shares with team that Haldol does not stop voices for him, however, by history, Clozapine does. Discussed initiating Clozapine and he agrees. Flexeril/Ibuprofen ordered over the weekend as well. Pt reports sleep and appetite are intact. He is attending milieu activities. Conjunctivitis is present, resolving, pt reports less eye irritation. Denies SI,HI, +AH, -VH, -SIBS. Continues to believe his home is haunted and possessed and does not want to return there. Expressed fear and concern should he need to return. Tearful at times. Medication Compliance: Yes Side effects from medications: Yes (feels Haldol is ineffective for auditory perceptual alterations) Attending Groups: Yes Review of Systems conjunctivitis Medical Review of Systems: unchanged Review of Systems Review of Systems conjunctivitis Mental Status Exam Mental Status Exam Patient Appearance: Fatigued and Disheveled Patient Orientation: Person, Place and Situation Level of Consciousness: Alert Patient Behavior: Talkative, Good Eye Contact and Crying Mood Description: Depressed Affect Description: Flat Patient Cognition Impaired: No Ability to Follow Directions: Good Speech Pattern: Spontaneous Speech Memory Description: Episodic Impaired Hallucinations: Auditory Delusions: Paranoid Ideation and Present Thought Process: Distracted and Rumination Thought Content: positive for Circumstantial, positive for Perseveration and positive for Suicidal Ideation (denies) Depressive Symptoms: Increased Anxiety, Crying Spells and Increased Fatigue Judgement: Fair Diagnostics Vital Signs (24Hr): Vital Signs - 24 hr 01/12/25 20:00 01/12/25 21:43 01/13/25 08:00 Temperature 97.4 F 98.4 F Pulse Rate 88 97 Respiratory Rate 16 20 Blood Pressure 132/66 132/66 125/80 Pulse Oximetry 94 94 Oxygen Delivery Method Room Air Room Air 01/13/25 09:10 01/13/25 09:11 01/13/25 09:14 Temperature Pulse Rate 97 Respiratory Rate Blood Pressure 125/80 125/80 125/80 Pulse Oximetry Oxygen Delivery Method BMI result Body Mass Index 56.3 Labs 01/06/25 15:22 01/06/25 15:22 Imaging Radiology Impressions: ITS Impressions Chest X-Ray 01/08/25 14:24 IMPRESSION: Low lung volumes without definite active disease. Electronically signed by: Foster Mckinnon MD 01/08/2025 02:37 PM [facility] Medications Medications Current Medications Acetaminophen (Acetaminophen 325 Mg Tablet) 650 mg PO Q6H PRN PRN Reason: Headache/Pain, Scale 1-10 Last Admin: 01/10/25 11:23 Dose: 650 mg Al Hydroxide/Mg Hydroxide (Magnesium Hydrox/Alum Hydrox 30 Ml Oral.Susp) 30 ml PO Q6H PRN PRN Reason: Heartburn/Nausea Albuterol Sulfate (Albuterol Sulfate 90 Mcg 8 Gm Inhaler) 1 puff INHALE QID PRN PRN Reason: Wheezing Amlodipine Besylate (Amlodipine Besylate 10 Mg Tablet) 10 mg PO DAILY [facility]; Protocol Last Admin: 01/13/25 09:11 Dose: 10 mg Benztropine Mesylate (Benztropine Mesylate 1 Mg Tablet) 1 mg PO BID [facility] Last Admin: 01/13/25 09:07 Dose: 1 mg Cyclobenzaprine HCl (Cyclobenzaprine Hcl 10 Mg Tablet) 10 mg PO TID [facility] Last Admin: 01/13/25 09:08 Dose: 10 mg Docusate Sodium (Docusate Sodium 100 Mg Capsule) 100 mg PO BID PRN PRN Reason: Constipation Last Admin: 01/13/25 09:29 Dose: 100 mg Duloxetine HCl (Duloxetine Hcl 30 Mg Capsule.Dr) 30 mg PO DAILY [facility] Last Admin: 01/13/25 09:06 Dose: 30 mg Folic Acid (Folic Acid 1 Mg Tablet) 1 mg PO DAILY [facility] Last Admin: 01/13/25 09:07 Dose: 1 mg Gabapentin (Gabapentin 300 Mg Capsule) 600 mg PO TID [facility] Last Admin: 01/13/25 09:09 Dose: 600 mg Guaifenesin/Dextromethorphan (Guaifenesin Dm 100/10/5 Ml 5 Ml Syrup) 5 ml PO Q6H PRN PRN Reason: Cough Haloperidol (Haloperidol 5 Mg Tablet) 10 mg PO BID [facility] Last Admin: 01/13/25 09:10 Dose: 10 mg Haloperidol (Haloperidol 5 Mg Tablet) 5 mg PO Q6H PRN PRN Reason: Psychosis Last Admin: 01/12/25 13:27 Dose: 5 mg Hydroxyzine HCl (Hydroxyzine Hcl 25 Mg Tablet) 50 mg PO Q6H PRN PRN Reason: mild anxiety Last Admin: 01/12/25 15:48 Dose: 50 mg Ibuprofen (Ibuprofen 600 Mg Tablet) 600 mg PO Q8H PRN PRN Reason: back pain Last Admin: 01/12/25 06:37 Dose: 600 mg Lactic Acid (Ammonium Lactate 12 % Lotion 226 Gm Bottle) 1 appl TOPICAL DAILY [facility]; Protocol Last Admin: 01/13/25 09:20 Dose: 1 appl Lamotrigine (Lamotrigine 25 Mg Tablet) 25 mg PO DAILY [facility] Last Admin: 01/13/25 09:07 Dose: 25 mg Loratadine (Loratadine 10 Mg Tablet) 10 mg PO DAILY [facility] Last Admin: 01/13/25 09:08 Dose: 10 mg Losartan Potassium (Losartan Potassium 50 Mg Tablet) 50 mg PO DAILY [facility]; Protocol Last Admin: 01/13/25 09:14 Dose: 50 mg Magnesium Hydroxide (Milk Of Magnesia 30 Ml Oral.Susp) 30 ml PO DAILY PRN PRN Reason: Constipation Melatonin (Melatonin 3 Mg Tablet) 3 mg PO BEDTIME PRN PRN Reason: Sleep Metformin HCl (Metformin Hcl Er 500 Mg Tab.Er.24h) 500 mg PO BID [facility] Last Admin: 01/13/25 09:10 Dose: 500 mg Metoprolol Succinate (Metoprolol Succinate Er 50 Mg Tab.Er.24h) 50 mg PO DAILY [facility]; Protocol Last Admin: 01/13/25 09:10 Dose: 50 mg Moxifloxacin HCl (Moxifloxacin Hcl 0.5 % Oph Francia 3 Ml Drpbtl) 1 drop EYE-BOTH TID [facility] Stop: 01/17/25 10:30 Last Admin: 01/13/25 09:08 Dose: 1 drop Multivitamins/Vitamin C (Multivitamin Tablet) 1 tab PO DAILY [facility] Last Admin: 01/13/25 09:08 Dose: 1 tab Naltrexone HCl (Naltrexone Hcl 50 Mg Tablet) 50 mg PO DAILY [facility] Last Admin: 01/13/25 09:09 Dose: 50 mg Nicotine (Nicotine 21 Mg Patch.Td24) 21 mg TRANSDERMA DAILY [facility] Last Admin: 01/13/25 09:12 Dose: 21 mg Nicotine Polacrilex (Nicotine Polacrilex 2 Mg Gum) 4 mg BUCCAL Q2H PRN PRN Reason: Nicotine Cravings Last Admin: 01/13/25 09:29 Dose: 4 mg Pt Own (Tirzepatide [Mounjaro] 2.5 Mg/0. 5 Ml Pen Injector) 2.5 mg SUBCUT Q7D [facility] Last Admin: 01/07/25 15:59 Dose: 2.5 mg Omeprazole (Omeprazole 20 Mg Capsule.Dr) 20 mg PO DAILY@0630 [facility] Last Admin: 01/13/25 06:02 Dose: 20 mg Ondansetron HCl (Ondansetron Odt 4 Mg Tab.Rapdis) 4 mg TRANSLINGU Q8H PRN PRN Reason: Nausea and Vomiting Last Admin: 01/11/25 12:34 Dose: 4 mg Polyethylene Glycol (Polyethylene Glycol 3350 17 Gm Powd.Pack) 17 gm PO DAILY [facility] Last Admin: 01/13/25 09:20 Dose: 17 gm Prazosin HCl (Prazosin Hcl 1 Mg Capsule) 4 mg PO BEDTIME [facility]; Protocol Last Admin: 01/12/25 21:43 Dose: 4 mg Thiamine HCl (Thiamine Hcl 100 Mg Tablet) 100 mg PO DAILY [facility] Last Admin: 01/13/25 09:22 Dose: 100 mg Tiotropium Imperial (Tiotropium Imperial 2.5 Mcg 1 Puff/2.5 Mcg Mist.Inhal) 2 puff INHALE RDAILY [facility] Last Admin: 01/13/25 09:11 Dose: 2 puff Trazodone HCl (Trazodone Hcl 50 Mg Tablet) 100 mg PO BEDTIME [facility] Last Admin: 01/12/25 21:44 Dose: 100 mg Allergies Allergies Allergy/AdvReac Type Severity Reaction Status Date / Time lisinopril Allergy Unknown Cough Verified 01/06/25 15:02 clonidine AdvReac Unknown Unknown Verified 01/06/25 15:02 Assessment & Plan Assessment & Plan (1) Sleep related hypoxia: Status: Acute Code(s): G47.34 - Idiopathic sleep related nonobstructive alveolar hypoventilation (2) Schizoaffective disorder: Status: Acute Code(s): F25.9 - Schizoaffective disorder, unspecified (3) Depression with suicidal ideation: Status: Acute Code(s): F32.A - Depression, unspecified; R45.851 - Suicidal ideations (4) Alcohol use disorder: Status: Acute Code(s): F10.90 - Alcohol use, unspecified, uncomplicated (5) Cannabis use disorder: Status: Acute Code(s): F12.90 - Cannabis use, unspecified, uncomplicated Plan 34-year-old male with past medical history listed below presented to the emergency department with suicidal ideation. Admitted for inpatient stabilization. Schizoaffective disorder/suicidal ideation/substance use disorder/alcohol use disorder Treatment per psychiatric team Type 2 diabetes Continue metformin b.i.d. Continue Mounjaro Recent A1c 5.8 done in August. Hypertension Continue amlodipine and Cozaar, Toprol Blood pressure stable ESHA on CPAP/Sleep-related hypoxia Patient utilizing CPAP at HS Will need CPAP use during nap time or supplemental oxygen to maintain sats greater than 90% Thank you for allowing me to participate in the care of this patient. Will follow with you, please notify medical provider with any changes in condition or concerns. 01/09/25: Decrease Gabapentin to 600 mg tid SARS/RSV/Flu EMycin Opth tid to both eyes 01/10/25: Emycin change to moxifloxacin Watch for the color of cornea to change- if this is observed, pt may need culture. Watch for excessive purulent discharge-if this is observed, pt may need culture 01/11 Patient says he is overall doing okay but has ongoing AH that Haldol does not seem to help much. 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 Patient said that Haldol used to work well but then it seemed to stop working. Discussed other options in the past that he thinks that Clozaril helped before but for some reason he was taken off the and does not know why. Patient agreed to discuss further with primary team provider on returned this Monday -no change in cornea; no discharge. 01/13:Pt appears to have a clearer thought process with Haldol increase. Over the weekend he shares with team that Haldol does not stop voices for him, however, by history, Clozapine does. Discussed initiating Clozapine and he agrees. Flexeril/Ibuprofen ordered over the weekend as well. Pt reports sleep and appetite are intact. He is attending milieu activities. Conjunctivitis is present, resolving, pt reports less eye irritation. Denies SI,HI, +AH, -VH, -SIBS. Continues to believe his home is haunted and possessed and does not want to return there. Expressed fear and concern should he need to return. Tearful at times. Plan: Begin Haldol tapering Clozapine 25 mg HS Regarding medications: -will hold Haldol decanoate for now so that patient can discuss this with Anna on her return -patient says Clozaril used to help and it was stopped for some unknown reason; he does not know if there was a medication side effect or not Patient educated on: medication risk/benefits and therapeutic strategies Reason for continued inpatient stay Substantial Risk for: rapid decompensation Time Spent With Patient Time: Total time managing care of this patient today ____ minutes.
[2025-01-13 19:51] VITALS: BP 122/63; PULSE 93; TEMP 36.6; O2SAT 95
[2025-01-14 08:00] VITALS: BP 116/69; PULSE 102; TEMP 36.4; O2SAT 95
[2025-01-14 08:17] LABS: Neut%MD 52.5 %; WBCANC 6.3 X10*3/uL
[2025-01-14] MEDS: Tiotropium Bromide 2.5 mcg 1 PUFF/2.5 MCG MIST.INHAL 2 PUFF INHALE (08:26)
[2025-01-14 08:27] VITALS: BP 175/100
[2025-01-14] MEDS: Moxifloxacin HCl 0.5 % Oph Sol 3 ML DRPBTL 1 DROP EYE-BOTH ×3 (08:28→21:30)
[2025-01-14] MEDS: Ammonium Lactate 12 % Lotion 226 GM BOTTLE 1 APPL TOPICAL (08:28)
[2025-01-14] MEDS: Nicotine 21 MG PATCH.TD24 TRANSDERMA (08:30)
[2025-01-14] MEDS: Metoprolol Succinate ER 50 MG TAB.ER.24H PO (08:30)
--- NOTE | 2025-01-14 15:59 | P.PNPSI_ITS ---
Subjective Subjective Date of Service: 01/14/25 Reason For Visit: schizoaffective disorder Subjective Notes: Conditional Voluntary Healthcare Proxy: No Guardianship: No Medical Problems Affecting Mental Status: Yes Interim History: Pt reports vomiting x 1 this a.m. Later in the a.m. reports buring upon urination and urgency- Urine culture ordered along with pyridium. Clozaril increased to 50 mg HS. Pt in agreement. Pt requests we change Haldol as he reports voices, CAH- I am stupid, they will kill me, they will never let me alone, I will be poor, homeless Discussed Olanzapine- No, that does not work . Discussed chlorpromazine-he does not recall but asks to trial today. Checks changes to 5 minutes. Pt in group this afternoon. BP improved from 175/100 this a.m. to 155/61 this afternoon. Medication Compliance: Yes Side effects from medications: No Attending Groups: Yes Review of Systems as noted Review of Systems: as noted Review of Systems Review of Systems vomited x 1 UTI sx Mental Status Exam Mental Status Exam Patient Appearance: Fatigued and Disheveled Patient Orientation: Person, Place and Situation Level of Consciousness: Alert Patient Behavior: Talkative, Good Eye Contact and Crying Mood Description: Depressed Affect Description: Flat Patient Cognition Impaired: No Ability to Follow Directions: Good Speech Pattern: Spontaneous Speech Memory Description: Episodic Impaired Hallucinations: Auditory Delusions: Paranoid Ideation and Present Thought Process: Distracted and Rumination Thought Content: positive for Circumstantial, positive for Perseveration and positive for Suicidal Ideation (denies) Depressive Symptoms: Increased Anxiety, Crying Spells and Increased Fatigue Judgement: Fair Diagnostics Vital Signs (24Hr): Vital Signs - 24 hr 01/13/25 19:51 01/14/25 08:00 01/14/25 08:27 Temperature 97.8 F 97.6 F Pulse Rate 93 102 H Blood Pressure 122/63 116/69 175/100 H Pulse Oximetry 95 95 Oxygen Delivery Method Room Air Room Air BMI result Body Mass Index 56.3 Labs 01/06/25 15:22 01/06/25 15:22 Labs: Laboratory Results - last 48 hr 01/14/25 07:58 Absolute Neuts (auto) 3.3 Imaging Radiology Impressions: ITS Impressions Chest X-Ray 01/08/25 14:24 IMPRESSION: Low lung volumes without definite active disease. Electronically signed by: Foster Mckinnon MD 01/08/2025 02:37 PM [facility] Medications Medications Current Medications Acetaminophen (Acetaminophen 325 Mg Tablet) 650 mg PO Q6H PRN PRN Reason: Headache/Pain, Scale 1-10 Last Admin: 01/13/25 11:33 Dose: 650 mg Al Hydroxide/Mg Hydroxide (Magnesium Hydrox/Alum Hydrox 30 Ml Oral.Susp) 30 ml PO Q6H PRN PRN Reason: Heartburn/Nausea Albuterol Sulfate (Albuterol Sulfate 90 Mcg 8 Gm Inhaler) 1 puff INHALE QID PRN PRN Reason: Wheezing Amlodipine Besylate (Amlodipine Besylate 10 Mg Tablet) 10 mg PO DAILY [facility]; Protocol Last Admin: 01/14/25 08:27 Dose: 10 mg Benztropine Mesylate (Benztropine Mesylate 1 Mg Tablet) 1 mg PO BID [facility] Last Admin: 01/14/25 08:30 Dose: 1 mg Chlorpromazine HCl (Chlorpromazine Hcl 25 Mg Tablet) 50 mg PO QID [facility] Last Admin: 01/14/25 13:29 Dose: 50 mg Chlorpromazine HCl (Chlorpromazine Hcl 100 Mg Tablet) 100 mg PO BID PRN PRN Reason: agitation, psychosis Clozapine (Clozapine 25 Mg Tablet) 50 mg PO BEDTIME [facility] Cyclobenzaprine HCl (Cyclobenzaprine Hcl 10 Mg Tablet) 10 mg PO TID [facility] Last Admin: 01/14/25 14:36 Dose: 10 mg Docusate Sodium (Docusate Sodium 100 Mg Capsule) 100 mg PO BID PRN PRN Reason: Constipation Last Admin: 01/13/25 09:29 Dose: 100 mg Duloxetine HCl (Duloxetine Hcl 30 Mg Capsule.Dr) 30 mg PO DAILY [facility] Last Admin: 01/14/25 08:29 Dose: 30 mg Folic Acid (Folic Acid 1 Mg Tablet) 1 mg PO DAILY [facility] Last Admin: 01/14/25 08:29 Dose: 1 mg Gabapentin (Gabapentin 300 Mg Capsule) 600 mg PO TID [facility] Last Admin: 01/14/25 14:36 Dose: 600 mg Guaifenesin/Dextromethorphan (Guaifenesin Dm 100/10/5 Ml 5 Ml Syrup) 5 ml PO Q6H PRN PRN Reason: Cough Hydroxyzine HCl (Hydroxyzine Hcl 25 Mg Tablet) 50 mg PO Q6H PRN PRN Reason: mild anxiety Last Admin: 01/14/25 11:52 Dose: 50 mg Ibuprofen (Ibuprofen 600 Mg Tablet) 600 mg PO Q8H PRN PRN Reason: back pain Last Admin: 01/12/25 06:37 Dose: 600 mg Lactic Acid (Ammonium Lactate 12 % Lotion 226 Gm Bottle) 1 appl TOPICAL DAILY [facility]; Protocol Last Admin: 01/14/25 08:28 Dose: 1 appl Lamotrigine (Lamotrigine 25 Mg Tablet) 25 mg PO DAILY [facility] Last Admin: 01/14/25 08:29 Dose: 25 mg Loratadine (Loratadine 10 Mg Tablet) 10 mg PO DAILY [facility] Last Admin: 01/14/25 08:28 Dose: 10 mg Losartan Potassium (Losartan Potassium 50 Mg Tablet) 50 mg PO DAILY [facility]; Protocol Last Admin: 01/14/25 08:30 Dose: 50 mg Magnesium Hydroxide (Milk Of Magnesia 30 Ml Oral.Susp) 30 ml PO DAILY PRN PRN Reason: Constipation Melatonin (Melatonin 3 Mg Tablet) 3 mg PO BEDTIME PRN PRN Reason: Sleep Metformin HCl (Metformin Hcl Er 500 Mg Tab.Er.24h) 500 mg PO BID [facility] Last Admin: 01/14/25 08:28 Dose: 500 mg Metoprolol Succinate (Metoprolol Succinate Er 50 Mg Tab.Er.24h) 50 mg PO DAILY [facility]; Protocol Last Admin: 01/14/25 08:30 Dose: 50 mg Moxifloxacin HCl (Moxifloxacin Hcl 0.5 % Oph Francia 3 Ml Drpbtl) 1 drop EYE-BOTH TID [facility] Stop: 01/17/25 10:30 Last Admin: 01/14/25 08:28 Dose: 1 drop Multivitamins/Vitamin C (Multivitamin Tablet) 1 tab PO DAILY [facility] Last Admin: 01/14/25 08:28 Dose: 1 tab Naltrexone HCl (Naltrexone Hcl 50 Mg Tablet) 50 mg PO DAILY [facility] Last Admin: 01/14/25 08:29 Dose: 50 mg Nicotine (Nicotine 21 Mg Patch.Td24) 21 mg TRANSDERMA DAILY [facility] Last Admin: 01/14/25 08:30 Dose: 21 mg Nicotine Polacrilex (Nicotine Polacrilex 2 Mg Gum) 4 mg BUCCAL Q2H PRN PRN Reason: Nicotine Cravings Last Admin: 01/13/25 09:29 Dose: 4 mg Pt Own (Tirzepatide [Mounjaro] 2.5 Mg/0. 5 Ml Pen Injector) 2.5 mg SUBCUT Q7D [facility] Last Admin: 01/07/25 15:59 Dose: 2.5 mg Omeprazole (Omeprazole 20 Mg Capsule.Dr) 20 mg PO DAILY@0630 [facility] Last Admin: 01/14/25 08:26 Dose: 20 mg Ondansetron HCl (Ondansetron Odt 4 Mg Tab.Rapdis) 4 mg TRANSLINGU Q8H PRN PRN Reason: Nausea and Vomiting Last Admin: 01/14/25 10:54 Dose: 4 mg Polyethylene Glycol (Polyethylene Glycol 3350 17 Gm Powd.Pack) 17 gm PO DAILY [facility] Last Admin: 01/14/25 08:36 Dose: Not Given Prazosin HCl (Prazosin Hcl 1 Mg Capsule) 4 mg PO BEDTIME [facility]; Protocol Last Admin: 01/13/25 21:17 Dose: 4 mg Thiamine HCl (Thiamine Hcl 100 Mg Tablet) 100 mg PO DAILY [facility] Last Admin: 01/14/25 08:29 Dose: 100 mg Tiotropium [place] (Tiotropium [place] 2.5 Mcg 1 Puff/2.5 Mcg Mist.Inhal) 2 puff INHALE RDAILY [facility] Last Admin: 01/14/25 08:26 Dose: 2 puff Trazodone HCl (Trazodone Hcl 50 Mg Tablet) 100 mg PO BEDTIME [facility] Last Admin: 01/13/25 21:18 Dose: 100 mg Allergies Allergies Allergy/AdvReac Type Severity Reaction Status Date / Time lisinopril Allergy Unknown Cough Verified 01/06/25 15:02 clonidine AdvReac Unknown Unknown Verified 01/06/25 15:02 Assessment & Plan Assessment & Plan (1) Sleep related hypoxia: Status: Acute Code(s): G47.34 - Idiopathic sleep related nonobstructive alveolar hypoventilation (2) Schizoaffective disorder: Status: Acute Code(s): F25.9 - Schizoaffective disorder, unspecified (3) Depression with suicidal ideation: Status: Acute Code(s): F32.A - Depression, unspecified; R45.851 - Suicidal ideations (4) Alcohol use disorder: Status: Acute Code(s): F10.90 - Alcohol use, unspecified, uncomplicated (5) Cannabis use disorder: Status: Acute Code(s): F12.90 - Cannabis use, unspecified, uncomplicated Plan 34-year-old male with past medical history listed below presented to the emergency department with suicidal ideation. Admitted for inpatient stabilization. Schizoaffective disorder/suicidal ideation/substance use disorder/alcohol use disorder Treatment per psychiatric team Type 2 diabetes Continue metformin b.i.d. Continue Mounjaro Recent A1c 5.8 done in August. Hypertension Continue amlodipine and Cozaar, Toprol Blood pressure stable ESHA on CPAP/Sleep-related hypoxia Patient utilizing CPAP at HS Will need CPAP use during nap time or supplemental oxygen to maintain sats greater than 90% Thank you for allowing me to participate in the care of this patient. Will follow with you, please notify medical provider with any changes in condition or concerns. 01/09/25: Decrease Gabapentin to 600 mg tid SARS/RSV/Flu EMycin Opth tid to both eyes 01/10/25: Emycin change to moxifloxacin Watch for the color of cornea to change- if this is observed, pt may need culture. Watch for excessive purulent discharge-if this is observed, pt may need culture 01/11 Patient says he is overall doing okay but has ongoing AH that Haldol does not seem to help much. 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 Patient said that Haldol used to work well but then it seemed to stop working. Discussed other options in the past that he thinks that Clozaril helped before but for some reason he was taken off the and does not know why. Patient agreed to discuss further with primary team provider on returned this Monday -no change in cornea; no discharge. 01/13:Pt appears to have a clearer thought process with Haldol increase. Over the weekend he shares with team that Haldol does not stop voices for him, however, by history, Clozapine does. Discussed initiating Clozapine and he agrees. Flexeril/Ibuprofen ordered over the weekend as well. Pt reports sleep and appetite are intact. He is attending milieu activities. Conjunctivitis is present, resolving, pt reports less eye irritation. Denies SI,HI, +AH, -VH, -SIBS. Continues to believe his home is haunted and possessed and does not want to return there. Expressed fear and concern should he need to return. Tearful at times. Plan: Begin Haldol tapering Clozapine 25 mg HS 01/14:Pt reports vomiting x 1 this a.m. Later in the a.m. reports buring upon urination and urgency- Urine culture ordered along with pyridium. Clozaril increased to 50 mg HS. Pt in agreement. Pt requests we change Haldol as he reports voices, CAH- I am stupid, they will kill me, they will never let me alone, I will be poor, homeless Discussed Olanzapine- No, that does not work . Discussed chlorpromazine-he does not recall but asks to trial today. Checks changes to 5 minutes. Pt in group this afternoon. BP improved from 175/100 this a.m. to 155/61 this afternoon. Plan: DC Haldol Chlorpromazine trial Urine Culture Pyridium prn Regarding medications: -will hold Haldol decanoate for now so that patient can discuss this with Woody Morrison on her return -patient says Clozaril used to help and it was stopped for some unknown reason; he does not know if there was a medication side effect or not Patient educated on: medication risk/benefits and medical condition Reason for continued inpatient stay Substantial Risk for: rapid decompensation and med/psych decompensation Time Spent With Patient Time: Total time managing care of this patient today ____ minutes.
--- NOTE | 2025-01-14 18:58 | PC.NURSE ---
Pharmacy was called so that p's manjaro injection is brought upstairs.
[2025-01-15 07:58] VITALS: BP 158/88; PULSE 93; RESP 16; TEMP 36.1; O2SAT 99
[2025-01-15] MEDS: Metoprolol Succinate ER 50 MG TAB.ER.24H PO (08:52)
[2025-01-15] MEDS: Tiotropium Bromide 2.5 mcg 1 PUFF/2.5 MCG MIST.INHAL 2 PUFF INHALE (08:53)
[2025-01-15] MEDS: Nicotine 21 MG PATCH.TD24 TRANSDERMA (08:53)
[2025-01-15] MEDS: Ammonium Lactate 12 % Lotion 226 GM BOTTLE 1 APPL TOPICAL (08:53)
[2025-01-15] MEDS: Moxifloxacin HCl 0.5 % Oph Sol 3 ML DRPBTL 1 DROP EYE-BOTH ×3 (08:53→21:04)
--- NOTE | 2025-01-15 10:42 | HO.PSYCHPN ---
Subjective Subjective Date of Service: 01/15/25 Reason For Visit: schizoaffective disorder Subjective Notes: Conditional Voluntary Healthcare Proxy: No Guardianship: No Medical Problems Affecting Mental Status: No Interim History: Reports improvement in AH. Much better than yesterday however still present. Slept through the night with JEAN and prns needed. Attending groups Reports penile pain, frequency, burning, Urine culture negative. Requested hospitalist consult for further guidance. Pt did not try pyridium however will do so this afternoon. Medication Compliance: Yes Side effects from medications: No Attending Groups: Yes Review of Systems as noted Medical Review of Systems: unchanged Review of Systems Review of Systems Reports penile pain, frequency, burning when urinating. Mental Status Exam Mental Status Exam Patient Appearance: Appropriate Patient Orientation: Person, Place, Time and Situation Level of Consciousness: Alert Patient Behavior: Talkative and Good Eye Contact Mood Description: Constricted Affect Description: Flat Patient Cognition Impaired: No Ability to Follow Directions: Good Speech Pattern: Spontaneous Speech Memory Description: Episodic Impaired Hallucinations: Auditory Delusions: Present Thought Process: Rumination Thought Content: positive for Circumstantial, positive for Perseveration and positive for Suicidal Ideation (denies) Depressive Symptoms: Thoughts of /Suicide (denies) Judgement: Fair Diagnostics Vital Signs (24Hr): Vital Signs - 24 hr 01/15/25 07:58 Temperature 97.0 F Pulse Rate 93 Respiratory Rate 16 Blood Pressure 158/88 H Pulse Oximetry 99 Oxygen Delivery Method Room Air BMI result Body Mass Index 56.3 Labs 01/06/25 15:22 01/15/25 10:06 Labs: Laboratory Results - last 48 hr 01/14/25 07:58 Absolute Neuts (auto) 3.3 Imaging Radiology Impressions: ITS Impressions Chest X-Ray 01/08/25 14:24 IMPRESSION: Low lung volumes without definite active disease. Electronically signed by: Foster Mckinnon MD 01/08/2025 02:37 PM [facility] [place] Medications Medications Current Medications Acetaminophen (Acetaminophen 325 Mg Tablet) 650 mg PO Q6H PRN PRN Reason: Headache/Pain, Scale 1-10 Last Admin: 01/15/25 02:32 Dose: 650 mg Al Hydroxide/Mg Hydroxide (Magnesium Hydrox/Alum Hydrox 30 Ml Oral.Susp) 30 ml PO Q6H PRN PRN Reason: Heartburn/Nausea Albuterol Sulfate (Albuterol Sulfate 90 Mcg 8 Gm Inhaler) 1 puff INHALE QID PRN PRN Reason: Wheezing Amlodipine Besylate (Amlodipine Besylate 10 Mg Tablet) 10 mg PO DAILY [facility]; Protocol Last Admin: 01/15/25 08:51 Dose: 10 mg Benztropine Mesylate (Benztropine Mesylate 1 Mg Tablet) 1 mg PO BID [facility] Last Admin: 01/15/25 08:51 Dose: 1 mg Chlorpromazine HCl (Chlorpromazine Hcl 25 Mg Tablet) 50 mg PO QID [facility] Last Admin: 01/15/25 08:52 Dose: 50 mg Chlorpromazine HCl (Chlorpromazine Hcl 100 Mg Tablet) 100 mg PO BID PRN PRN Reason: agitation, psychosis Clozapine (Clozapine 25 Mg Tablet) 50 mg PO BEDTIME [facility] Last Admin: 01/14/25 21:30 Dose: 50 mg Cyclobenzaprine HCl (Cyclobenzaprine Hcl 10 Mg Tablet) 10 mg PO TID [facility] Last Admin: 01/15/25 08:52 Dose: 10 mg Docusate Sodium (Docusate Sodium 100 Mg Capsule) 100 mg PO BID PRN PRN Reason: Constipation Last Admin: 01/13/25 09:29 Dose: 100 mg Duloxetine HCl (Duloxetine Hcl 30 Mg Capsule.Dr) 30 mg PO DAILY [facility] Last Admin: 01/15/25 08:52 Dose: 30 mg Folic Acid (Folic Acid 1 Mg Tablet) 1 mg PO DAILY [facility] Last Admin: 01/15/25 08:52 Dose: 1 mg Gabapentin (Gabapentin 300 Mg Capsule) 600 mg PO TID [facility] Last Admin: 01/15/25 08:52 Dose: 600 mg Guaifenesin/Dextromethorphan (Guaifenesin Dm 100/10/5 Ml 5 Ml Syrup) 5 ml PO Q6H PRN PRN Reason: Cough Hydroxyzine HCl (Hydroxyzine Hcl 25 Mg Tablet) 50 mg PO Q6H PRN PRN Reason: mild anxiety Last Admin: 01/14/25 11:52 Dose: 50 mg Ibuprofen (Ibuprofen 600 Mg Tablet) 600 mg PO Q8H PRN PRN Reason: back pain Last Admin: 01/12/25 06:37 Dose: 600 mg Lactic Acid (Ammonium Lactate 12 % Lotion 226 Gm Bottle) 1 appl TOPICAL DAILY [facility]; Protocol Last Admin: 01/15/25 08:53 Dose: 1 appl Lamotrigine (Lamotrigine 25 Mg Tablet) 25 mg PO DAILY [facility] Last Admin: 01/15/25 08:53 Dose: 25 mg Loratadine (Loratadine 10 Mg Tablet) 10 mg PO DAILY [facility] Last Admin: 01/15/25 08:59 Dose: 10 mg Losartan Potassium (Losartan Potassium 50 Mg Tablet) 50 mg PO DAILY [facility]; Protocol Last Admin: 01/15/25 08:51 Dose: 50 mg Magnesium Hydroxide (Milk Of Magnesia 30 Ml Oral.Susp) 30 ml PO DAILY PRN PRN Reason: Constipation Melatonin (Melatonin 3 Mg Tablet) 3 mg PO BEDTIME PRN PRN Reason: Sleep Last Admin: 01/15/25 02:32 Dose: 3 mg Metformin HCl (Metformin Hcl Er 500 Mg Tab.Er.24h) 500 mg PO BID [facility] Last Admin: 01/15/25 08:52 Dose: 500 mg Metoprolol Succinate (Metoprolol Succinate Er 50 Mg Tab.Er.24h) 50 mg PO DAILY [facility]; Protocol Last Admin: 01/15/25 08:52 Dose: 50 mg Moxifloxacin HCl (Moxifloxacin Hcl 0.5 % Oph Francia 3 Ml Drpbtl) 1 drop EYE-BOTH TID [facility] Stop: 01/17/25 10:30 Last Admin: 01/15/25 08:53 Dose: 1 drop Multivitamins/Vitamin C (Multivitamin Tablet) 1 tab PO DAILY [facility] Last Admin: 01/15/25 08:51 Dose: 1 tab Naltrexone HCl (Naltrexone Hcl 50 Mg Tablet) 50 mg PO DAILY [facility] Last Admin: 01/15/25 08:52 Dose: 50 mg Nicotine (Nicotine 21 Mg Patch.Td24) 21 mg TRANSDERMA DAILY [facility] Last Admin: 01/15/25 08:53 Dose: 21 mg Nicotine Polacrilex (Nicotine Polacrilex 2 Mg Gum) 4 mg BUCCAL Q2H PRN PRN Reason: Nicotine Cravings Last Admin: 01/13/25 09:29 Dose: 4 mg Pt Own (Tirzepatide [Mounjaro] 2.5 Mg/0. 5 Ml Pen Injector) 2.5 mg SUBCUT Q7D [facility] Last Admin: 01/15/25 08:51 Dose: 2.5 mg Omeprazole (Omeprazole 20 Mg Capsule.Dr) 20 mg PO DAILY@0630 [facility] Last Admin: 01/15/25 08:51 Dose: 20 mg Ondansetron HCl (Ondansetron Odt 4 Mg Tab.Rapdis) 4 mg TRANSLINGU Q8H PRN PRN Reason: Nausea and Vomiting Last Admin: 01/14/25 10:54 Dose: 4 mg Phenazopyridine HCl (Phenazopyridine Hcl 100 Mg Tablet) 100 mg PO TIDWM PRN PRN Reason: uti Stop: 01/16/25 16:00 Polyethylene Glycol (Polyethylene Glycol 3350 17 Gm Powd.Pack) 17 gm PO DAILY [facility] Last Admin: 01/15/25 08:54 Dose: 17 gm Prazosin HCl (Prazosin Hcl 1 Mg Capsule) 4 mg PO BEDTIME [facility]; Protocol Last Admin: 01/14/25 21:30 Dose: 4 mg Thiamine HCl (Thiamine Hcl 100 Mg Tablet) 100 mg PO DAILY [facility] Last Admin: 01/15/25 08:52 Dose: 100 mg Tiotropium Altus (Tiotropium Altus 2.5 Mcg 1 Puff/2.5 Mcg Mist.Inhal) 2 puff INHALE RDAILY [facility] Last Admin: 01/15/25 08:53 Dose: 2 puff Trazodone HCl (Trazodone Hcl 50 Mg Tablet) 100 mg PO BEDTIME [facility] Last Admin: 01/14/25 21:30 Dose: 100 mg Allergies Allergies Allergy/AdvReac Type Severity Reaction Status Date / Time lisinopril Allergy Unknown Cough Verified 01/06/25 15:02 clonidine AdvReac Unknown Unknown Verified 01/06/25 15:02 Assessment & Plan Assessment & Plan (1) Sleep related hypoxia: Status: Acute Code(s): G47.34 - Idiopathic sleep related nonobstructive alveolar hypoventilation (2) Schizoaffective disorder: Status: Acute Code(s): F25.9 - Schizoaffective disorder, unspecified (3) Depression with suicidal ideation: Status: Acute Code(s): F32.A - Depression, unspecified; R45.851 - Suicidal ideations (4) Alcohol use disorder: Status: Acute Code(s): F10.90 - Alcohol use, unspecified, uncomplicated (5) Cannabis use disorder: Status: Acute Code(s): F12.90 - Cannabis use, unspecified, uncomplicated Plan 34-year-old male with past medical history listed below presented to the emergency department with suicidal ideation. Admitted for inpatient stabilization. Schizoaffective disorder/suicidal ideation/substance use disorder/alcohol use disorder Treatment per psychiatric team Type 2 diabetes Continue metformin b.i.d. Continue Mounjaro Recent A1c 5.8 done in August. Hypertension Continue amlodipine and Cozaar, Toprol Blood pressure stable ESHA on CPAP/Sleep-related hypoxia Patient utilizing CPAP at HS Will need CPAP use during nap time or supplemental oxygen to maintain sats greater than 90% Thank you for allowing me to participate in the care of this patient. Will follow with you, please notify medical provider with any changes in condition or concerns. 01/09/25: Decrease Gabapentin to 600 mg tid SARS/RSV/Flu EMycin Opth tid to both eyes 01/10/25: Emycin change to moxifloxacin Watch for the color of cornea to change- if this is observed, pt may need culture. Watch for excessive purulent discharge-if this is observed, pt may need culture 01/11 Patient says he is overall doing okay but has ongoing AH that Haldol does not seem to help much. 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 Patient said that Haldol used to work well but then it seemed to stop working. Discussed other options in the past that he thinks that Clozaril helped before but for some reason he was taken off the and does not know why. Patient agreed to discuss further with primary team provider on returned this Monday -no change in cornea; no discharge. 01/13:Pt appears to have a clearer thought process with Haldol increase. Over the weekend he shares with team that Haldol does not stop voices for him, however, by history, Clozapine does. Discussed initiating Clozapine and he agrees. Flexeril/Ibuprofen ordered over the weekend as well. Pt reports sleep and appetite are intact. He is attending milieu activities. Conjunctivitis is present, resolving, pt reports less eye irritation. Denies SI,HI, +AH, -VH, -SIBS. Continues to believe his home is haunted and possessed and does not want to return there. Expressed fear and concern should he need to return. Tearful at times. Plan: Begin Haldol tapering Clozapine 25 mg HS 01/14:Pt reports vomiting x 1 this a.m. Later in the a.m. reports buring upon urination and urgency- Urine culture ordered along with pyridium. Clozaril increased to 50 mg HS. Pt in agreement. Pt requests we change Haldol as he reports voices, CA[facility]- I am stupid, they will kill me, they will never let me alone, I will be poor, homeless Discussed Olanzapine- No, that does not work . Discussed chlorpromazine-he does not recall but asks to trial today. Checks changes to 5 minutes. Pt in group this afternoon. BP improved from 175/100 this a.m. to 155/61 this afternoon. Plan: DC Haldol Chlorpromazine trial Urine Culture Pyridium prn 01/15:Reports improvement in AH. Much better than yesterday however still present. Slept through the night with JEAN and prns needed. Attending groups Reports penile pain, frequency, burning, Urine culture negative. Requested hospitalist consult for further guidance. Pt did not try pyridium however will do so this afternoon. Plan: Hospitalist Consult Continue Clozapine titration. Regarding medications: -will hold Haldol decanoate for now so that patient can discuss this with Anna on her return -patient says Clozaril used to help and it was stopped for some unknown reason; he does not know if there was a medication side effect or not Reason for continued inpatient stay Substantial Risk for: rapid decompensation Time Spent With Patient Time: Total time managing care of this patient today ____ minutes.
[2025-01-15 10:51] LABS: Creatinine Clr Calc Pharmacy 174.7; Estimated Glomerular Filt Rate > 60
[2025-01-15 19:38] VITALS: BP 174/90; PULSE 99; TEMP 37.2; O2SAT 92
--- NOTE | 2025-01-15 20:11 | PM.EVENT ---
Event Note Date of Service: 01/15/25 Event Note: Pt seen for follow up to penile/ urethral pain and was prescribed pyridium earlier today with good effect. pt denies any further urethral pain and has no abnormal discharge. Reassurred pt that the orange urine is due to the treatment. Pt did complete ABX tx for STD and overall, pt states he is doing better. Repeat testing is now negative for STD. Pt educated to let nursing staff know if symptoms return. Animal Biologist present for interview. Time Spent With Patient Time: Total time managing care of this patient today ____ minutes.
[2025-01-16] VITALS (8 sets, daily range): BP systolic 133–145; BP diastolic 76–87; PULSE 101–108; RESP 19; TEMP 36.8; O2SAT 92–99
[2025-01-16] MEDS: Metoprolol Succinate ER 50 MG TAB.ER.24H PO (08:24)
[2025-01-16] MEDS: Tiotropium Bromide 2.5 mcg 1 PUFF/2.5 MCG MIST.INHAL 2 PUFF INHALE (09:28)
[2025-01-16] MEDS: Nicotine 21 MG PATCH.TD24 TRANSDERMA (09:28)
[2025-01-16] MEDS: Ammonium Lactate 12 % Lotion 226 GM BOTTLE 1 APPL TOPICAL (09:31)
[2025-01-16] MEDS: Moxifloxacin HCl 0.5 % Oph Sol 3 ML DRPBTL 1 DROP EYE-BOTH ×3 (09:31→20:24)
[2025-01-16 12:05] LABS: Glucose, Whole Blood 143 mg/dL (60-115)
[2025-01-16] MEDS: Milk of Magnesia 30 ML ORAL.SUSP PO (13:40)
--- NOTE | 2025-01-16 22:54 | P.PNPSI_ITS ---
Subjective Subjective Date of Service: 01/16/25 Reason For Visit: schizoaffective disorder Subjective Notes: Conditional Voluntary Healthcare Proxy: No Guardianship: No Medical Problems Affecting Mental Status: No Interim History: Medical record and nursing notes reviewed; case discussed during rounds with team/nursing staff, and met with patient for supportive therapy/psychoeducation, as well as medication management. Visible, pleasant and cooperative. Report CAH a little bit but he tries to ignore them. Report back pain an 09/29. No other complaint. Denies SI/SIB/VH. Very pleasant and cooperative. He says he needs to lose weight. Per nursing, slept for 6 hours, compliant with meds. No side effects, using Bipap at night. U/A negative. Medication Compliance: Yes Side effects from medications: No Review of Systems Acute medical concerns: No Medical Review of Systems: unchanged Review of Systems Review of Systems No physical complaint but report back pain 09/29. U/A negative Mental Status Exam Mental Status Exam Narrative: Visible, pleasant and cooperative. +CAH but albe to ingore the voices. No SI/SIB/HI. No irirtable mood. Fair judgment and insight. Diagnostics Vital Signs (24Hr): Vital Signs - 24 hr 01/16/25 08:00 01/16/25 08:24 01/16/25 08:25 Temperature 98.2 F Pulse Rate 104 H 104 H Respiratory Rate 19 Blood Pressure 137/82 137/82 137/82 Pulse Oximetry 99 Oxygen Delivery Method Room Air 01/16/25 08:26 01/16/25 12:07 01/16/25 20:00 Temperature 98.2 F Pulse Rate 108 H 101 H Respiratory Rate Blood Pressure 137/82 145/76 H 133/87 Pulse Oximetry 94 92 Oxygen Delivery Method Room Air Room Air 01/16/25 20:25 01/16/25 22:18 Temperature Pulse Rate Respiratory Rate 19 Blood Pressure 133/87 Pulse Oximetry Oxygen Delivery Method BMI result Body Mass Index 56.3 Labs 01/06/25 15:22 01/15/25 10:06 Labs: Laboratory Results - last 48 hr 01/15/25 01/16/25 10:06 11:59 Creatinine 0.95 Estim Creat Clear Calc 174.7 Estimated GFR > 60 POC Glucose 143 H Imaging Radiology Impressions: ITS Impressions Chest X-Ray 11/19/25 14:24 IMPRESSION: Low lung volumes without definite active disease. Electronically signed by: Foster Mckinnon MD 01/08/2025 02:37 PM [facility] Medications Medications Current Medications Acetaminophen (Acetaminophen 325 Mg Tablet) 650 mg PO Q6H PRN PRN Reason: Headache/Pain, Scale 1-10 Last Admin: 01/16/25 13:40 Dose: 650 mg Al Hydroxide/Mg Hydroxide (Magnesium Hydrox/Alum Hydrox 30 Ml Oral.Susp) 30 ml PO Q6H PRN PRN Reason: Heartburn/Nausea Albuterol Sulfate (Albuterol Sulfate 90 Mcg 8 Gm Inhaler) 1 puff INHALE QID PRN PRN Reason: Wheezing Amlodipine Besylate (Amlodipine Besylate 10 Mg Tablet) 10 mg PO DAILY [facility]; Protocol Last Admin: 01/16/25 08:25 Dose: 10 mg Benztropine Mesylate (Benztropine Mesylate 1 Mg Tablet) 1 mg PO BID [facility] Last Admin: 01/16/25 20:25 Dose: 1 mg Chlorpromazine HCl (Chlorpromazine Hcl 25 Mg Tablet) 50 mg PO QID [facility] Last Admin: 01/16/25 20:24 Dose: 50 mg Chlorpromazine HCl (Chlorpromazine Hcl 100 Mg Tablet) 100 mg PO BID PRN PRN Reason: agitation, psychosis Last Admin: 01/15/25 11:34 Dose: 100 mg Clozapine (Clozapine 25 Mg Tablet) 75 mg PO BEDTIME [facility] Last Admin: 01/16/25 20:25 Dose: 75 mg Cyclobenzaprine HCl (Cyclobenzaprine Hcl 10 Mg Tablet) 10 mg PO TID [facility] Last Admin: 01/16/25 20:24 Dose: 10 mg Docusate Sodium (Docusate Sodium 100 Mg Capsule) 100 mg PO BID PRN PRN Reason: Constipation Last Admin: 01/16/25 13:40 Dose: 100 mg Duloxetine HCl (Duloxetine Hcl 30 Mg Capsule.Dr) 30 mg PO DAILY [facility] Last Admin: 01/16/25 08:24 Dose: 30 mg Folic Acid (Folic Acid 1 Mg Tablet) 1 mg PO DAILY [facility] Last Admin: 01/16/25 08:26 Dose: 1 mg Gabapentin (Gabapentin 300 Mg Capsule) 600 mg PO TID [facility] Last Admin: 01/16/25 20:24 Dose: 600 mg Guaifenesin/Dextromethorphan (Guaifenesin Dm 100/10/5 Ml 5 Ml Syrup) 5 ml PO Q6H PRN PRN Reason: Cough Hydroxyzine HCl (Hydroxyzine Hcl 25 Mg Tablet) 50 mg PO Q6H PRN PRN Reason: mild anxiety Last Admin: 01/16/25 07:21 Dose: 50 mg Ibuprofen (Ibuprofen 600 Mg Tablet) 600 mg PO Q8H PRN PRN Reason: back pain Last Admin: 01/16/25 13:40 Dose: 600 mg Lactic Acid (Ammonium Lactate 12 % Lotion 226 Gm Bottle) 1 appl TOPICAL DAILY [facility]; Protocol Last Admin: 01/16/25 09:31 Dose: 1 appl Lamotrigine (Lamotrigine 25 Mg Tablet) 25 mg PO DAILY [facility] Last Admin: 01/16/25 08:24 Dose: 25 mg Loratadine (Loratadine 10 Mg Tablet) 10 mg PO DAILY [facility] Last Admin: 01/16/25 08:26 Dose: 10 mg Losartan Potassium (Losartan Potassium 50 Mg Tablet) 50 mg PO DAILY [facility]; Protocol Last Admin: 01/16/25 08:26 Dose: 50 mg Magnesium Hydroxide (Milk Of Magnesia 30 Ml Oral.Susp) 30 ml PO DAILY PRN PRN Reason: Constipation Last Admin: 01/16/25 13:40 Dose: 30 ml Melatonin (Melatonin 3 Mg Tablet) 3 mg PO BEDTIME PRN PRN Reason: Sleep Last Admin: 01/16/25 03:46 Dose: 3 mg Metformin HCl (Metformin Hcl Er 500 Mg Tab.Er.24h) 500 mg PO BID [facility] Last Admin: 01/16/25 20:24 Dose: 500 mg Metoprolol Succinate (Metoprolol Succinate Er 50 Mg Tab.Er.24h) 50 mg PO DAILY [facility]; Protocol Last Admin: 01/16/25 08:24 Dose: 50 mg Moxifloxacin HCl (Moxifloxacin Hcl 0.5 % Oph Francia 3 Ml Drpbtl) 1 drop EYE-BOTH TID [facility] Stop: 01/17/25 10:30 Last Admin: 01/16/25 20:24 Dose: 1 drop Multivitamins/Vitamin C (Multivitamin Tablet) 1 tab PO DAILY [facility] Last Admin: 01/16/25 08:24 Dose: 1 tab Naltrexone HCl (Naltrexone Hcl 50 Mg Tablet) 50 mg PO DAILY [facility] Last Admin: 01/16/25 08:24 Dose: 50 mg Nicotine (Nicotine 21 Mg Patch.Td24) 21 mg TRANSDERMA DAILY [facility] Last Admin: 01/16/25 09:28 Dose: 21 mg Nicotine Polacrilex (Nicotine Polacrilex 2 Mg Gum) 4 mg BUCCAL Q2H PRN PRN Reason: Nicotine Cravings Last Admin: 01/13/25 09:29 Dose: 4 mg Pt Own (Tirzepatide [Mounjaro] 2.5 Mg/0. 5 Ml Pen Injector) 2.5 mg SUBCUT Q7D [facility] Last Admin: 01/15/25 08:51 Dose: 2.5 mg Omeprazole (Omeprazole 20 Mg Capsule.Dr) 20 mg PO DAILY@0630 [facility] Last Admin: 01/16/25 06:29 Dose: 20 mg Ondansetron HCl (Ondansetron Odt 4 Mg Tab.Rapdis) 4 mg TRANSLINGU Q8H PRN PRN Reason: Nausea and Vomiting Last Admin: 01/14/25 10:54 Dose: 4 mg Polyethylene Glycol (Polyethylene Glycol 3350 17 Gm Powd.Pack) 17 gm PO DAILY [facility] Last Admin: 01/16/25 08:28 Dose: 17 gm Prazosin HCl (Prazosin Hcl 1 Mg Capsule) 4 mg PO BEDTIME [facility]; Protocol Last Admin: 01/16/25 20:25 Dose: 4 mg Thiamine HCl (Thiamine Hcl 100 Mg Tablet) 100 mg PO DAILY [facility] Last Admin: 01/16/25 08:25 Dose: 100 mg Tiotropium [place] (Tiotropium [place] 2.5 Mcg 1 Puff/2.5 Mcg Mist.Inhal) 2 puff INHALE RDAILY [facility] Last Admin: 01/16/25 09:28 Dose: 2 puff Trazodone HCl (Trazodone Hcl 50 Mg Tablet) 100 mg PO BEDTIME [facility] Last Admin: 01/16/25 20:25 Dose: 100 mg Allergies Allergies Allergy/AdvReac Type Severity Reaction Status Date / Time lisinopril Allergy Unknown Cough Verified 01/06/25 15:02 clonidine AdvReac Unknown Unknown Verified 01/06/25 15:02 Assessment & Plan Assessment & Plan (1) Sleep related hypoxia: Status: Acute Code(s): G47.34 - Idiopathic sleep related nonobstructive alveolar hypoventilation (2) Schizoaffective disorder: Status: Acute Code(s): F25.9 - Schizoaffective disorder, unspecified (3) Depression with suicidal ideation: Status: Acute Code(s): F32.A - Depression, unspecified; R45.851 - Suicidal ideations (4) Alcohol use disorder: Status: Acute Code(s): F10.90 - Alcohol use, unspecified, uncomplicated (5) Cannabis use disorder: Status: Acute Code(s): F12.90 - Cannabis use, unspecified, uncomplicated Plan 34-year-old male with past medical history listed below presented to the emergency department with suicidal ideation. Admitted for inpatient stabilization. Schizoaffective disorder/suicidal ideation/substance use disorder/alcohol use disorder Treatment per psychiatric team Type 2 diabetes Continue metformin b.i.d. Continue Mounjaro Recent A1c 5.8 done in August. Hypertension Continue amlodipine and Cozaar, Toprol Blood pressure stable ESHA on CPAP/Sleep-related hypoxia Patient utilizing CPAP at HS Will need CPAP use during nap time or supplemental oxygen to maintain sats greater than 90% Thank you for allowing me to participate in the care of this patient. Will follow with you, please notify medical provider with any changes in condition or concerns. 01/09/25: Decrease Gabapentin to 600 mg tid SARS/RSV/Flu EMycin Opth tid to both eyes 01/10/25: Emycin change to moxifloxacin Watch for the color of cornea to change- if this is observed, pt may need culture. Watch for excessive purulent discharge-if this is observed, pt may need culture 01/11 Patient says he is overall doing okay but has ongoing AH that Haldol does not seem to help much. Patient and signwriter looked in saw that he is due for Haldol decanoate this coming Monday. Patient said that Haldol used to work well but then it seemed to stop working. Discussed other options in the past that he thinks that Clozaril helped before but for some reason he was taken off the and does not know why. Patient agreed to discuss further with primary team provider on returned this Monday -no change in cornea; no discharge. 01/13:Pt appears to have a clearer thought process with Haldol increase. Over the weekend he shares with team that Haldol does not stop voices for him, however, by history, Clozapine does. Discussed initiating Clozapine and he agrees. Flexeril/Ibuprofen ordered over the weekend as well. Pt reports sleep and appetite are intact. He is attending milieu activities. Conjunctivitis is present, resolving, pt reports less eye irritation. Denies SI,HI, +AH, -VH, -SIBS. Continues to believe his home is haunted and possessed and does not want to return there. Expressed fear and concern should he need to return. Tearful at times. Plan: Begin Haldol tapering Clozapine 25 mg HS 01/14:Pt reports vomiting x 1 this a.m. Later in the a.m. reports buring upon urination and urgency- Urine culture ordered along with pyridium. Clozaril increased to 50 mg HS. Pt in agreement. Pt requests we change Haldol as he reports voices, CAH- I am stupid, they will kill me, they will never let me alone, I will be poor, homeless Discussed Olanzapine- No, that does not work . Discussed chlorpromazine-he does not recall but asks to trial today. Checks changes to 5 minutes. Pt in group this afternoon. BP improved from 175/100 this a.m. to 155/61 this afternoon. Plan: DC Haldol Chlorpromazine trial Urine Culture Pyridium prn 01/15:Reports improvement in AH. Much better than yesterday however still present. Slept through the night with JEAN and prns needed. Attending groups Reports penile pain, frequency, burning, Urine culture negative. Requested hospitalist consult for further guidance. Pt did not try pyridium however will do so this afternoon. Plan: Hospitalist Consult Continue Clozapine titration. 01/16/25: Visible, pleasant and cooperative. Report CAH a little bit but he tries to ignore them. Report back pain an 09/29. No other complaint. Denies SI/SIB/VH. Very pleasant and cooperative. He says he needs to lose weight. Per nursing, slept for 6 hours, compliant with meds. No side effects, using Bipap at night. U/A negative. Regarding medications: -will hold Haldol decanoate for now so that patient can discuss this with Woody Morrison on her return -patient says Clozaril used to help and it was stopped for some unknown reason; he does not know if there was a medication side effect or not Patient educated on: diagnosis, medication risk/benefits and therapeutic strategies Informed Consent: understands and further education needed Reason for continued inpatient stay Substantial Risk for: med/psych decompensation Time Spent With Patient Time: Total time managing care of this patient today ____ minutes.
[2025-01-17 09:00] VITALS: BP 131/63; PULSE 97; RESP 18; TEMP 36.2; O2SAT 97
[2025-01-17] MEDS: Tiotropium Bromide 2.5 mcg 1 PUFF/2.5 MCG MIST.INHAL 2 PUFF INHALE (09:06)
[2025-01-17 09:13] VITALS: BP 131/63; PULSE 97
[2025-01-17] MEDS: Metoprolol Succinate ER 50 MG TAB.ER.24H PO (09:13)
[2025-01-17] MEDS: Moxifloxacin HCl 0.5 % Oph Sol 3 ML DRPBTL 1 DROP EYE-BOTH (09:14)
[2025-01-17] MEDS: Nicotine 21 MG PATCH.TD24 TRANSDERMA (09:14)
[2025-01-17] MEDS: Ammonium Lactate 12 % Lotion 226 GM BOTTLE 1 APPL TOPICAL (09:14)
--- NOTE | 2025-01-17 10:17 | HO.PSYCHPN ---
Subjective Subjective Date of Service: 01/17/25 Reason For Visit: schizoaffective disorder Subjective Notes: Conditional Voluntary Healthcare Proxy: No Guardianship: No Medical Problems Affecting Mental Status: No Interim History: Pt reports feeling better. Denies SI,HI. Mild AH, Denies VH Continues to report sedation-discussed decreasing Gabapentin to 300 mg tid which he asks to do. Will decrease Chlorpromazine to 50 mg tid from QID Will increase Clozapine to 100 mg HS Pyridium re-started as pt continues to report burning, penile pain- cleared by medicine on 01/15 for UTI and further STD infection. Encouraged increase in fluids/water to help manage sx. Attending groups. States he believes he is on the appropriate treatment track and is talking about going home soon. Medication Compliance: Yes Side effects from medications: No Attending Groups: Yes Review of Systems UTI sx Medical Review of Systems: unchanged Review of Systems Review of Systems UTI sx. Mental Status Exam Mental Status Exam Patient Appearance: Appropriate Patient Orientation: Person, Place, Time and Situation Level of Consciousness: Alert Patient Behavior: Talkative and Good Eye Contact Mood Description: Constricted Affect Description: Flat Patient Cognition Impaired: No Ability to Follow Directions: Good Speech Pattern: Spontaneous Speech Memory Description: Episodic Impaired Hallucinations: Auditory Delusions: Present Thought Process: Rumination Thought Content: positive for Circumstantial, positive for Perseveration and positive for Suicidal Ideation (denies) Depressive Symptoms: Thoughts of /Suicide (denies) Judgement: Fair Diagnostics Vital Signs (24Hr): Vital Signs - 24 hr 01/16/25 12:07 01/16/25 20:00 01/16/25 20:25 Temperature 98.2 F Pulse Rate 108 H 101 H Respiratory Rate Blood Pressure 145/76 H 133/87 133/87 Pulse Oximetry 94 92 Oxygen Delivery Method Room Air Room Air 01/16/25 22:18 01/17/25 09:00 01/17/25 09:13 Temperature 97.2 F Pulse Rate 97 97 Respiratory Rate 19 18 Blood Pressure 131/63 131/63 Pulse Oximetry 97 Oxygen Delivery Method Room Air 01/17/25 09:13 01/17/25 09:13 Temperature Pulse Rate Respiratory Rate Blood Pressure 131/63 131/63 Pulse Oximetry Oxygen Delivery Method BMI result Body Mass Index 56.3 Labs 01/06/25 15:22 01/15/25 10:06 Labs: Laboratory Results - last 48 hr 01/15/25 01/16/25 10:06 11:59 Creatinine 0.95 Estim Creat Clear Calc 174.7 Estimated GFR > 60 POC Glucose 143 H Imaging Radiology Impressions: ITS Impressions Chest X-Ray 01/08/25 14:24 IMPRESSION: Low lung volumes without definite active disease. Electronically signed by: Foster Mckinnon MD 01/08/2025 02:37 PM [facility] Medications Medications Current Medications Acetaminophen (Acetaminophen 325 Mg Tablet) 650 mg PO Q6H PRN PRN Reason: Headache/Pain, Scale 1-10 Last Admin: 01/16/25 13:40 Dose: 650 mg Al Hydroxide/Mg Hydroxide (Magnesium Hydrox/Alum Hydrox 30 Ml Oral.Susp) 30 ml PO Q6H PRN PRN Reason: Heartburn/Nausea Albuterol Sulfate (Albuterol Sulfate 90 Mcg 8 Gm Inhaler) 1 puff INHALE QID PRN PRN Reason: Wheezing Amlodipine Besylate (Amlodipine Besylate 10 Mg Tablet) 10 mg PO DAILY [facility]; Protocol Last Admin: 01/17/25 09:13 Dose: 10 mg Benztropine Mesylate (Benztropine Mesylate 1 Mg Tablet) 1 mg PO BID [facility] Last Admin: 01/17/25 09:13 Dose: 1 mg Chlorpromazine HCl (Chlorpromazine Hcl 25 Mg Tablet) 50 mg PO QID [facility] Last Admin: 01/17/25 09:12 Dose: 50 mg Chlorpromazine HCl (Chlorpromazine Hcl 100 Mg Tablet) 100 mg PO BID PRN PRN Reason: agitation, psychosis Last Admin: 01/15/25 11:34 Dose: 100 mg Clozapine (Clozapine 25 Mg Tablet) 75 mg PO BEDTIME [facility] Last Admin: 01/16/25 20:25 Dose: 75 mg Cyclobenzaprine HCl (Cyclobenzaprine Hcl 10 Mg Tablet) 10 mg PO TID [facility] Last Admin: 01/17/25 09:11 Dose: 10 mg Docusate Sodium (Docusate Sodium 100 Mg Capsule) 100 mg PO BID PRN PRN Reason: Constipation Last Admin: 01/16/25 13:40 Dose: 100 mg Duloxetine HCl (Duloxetine Hcl 30 Mg Capsule.Dr) 30 mg PO DAILY [facility] Last Admin: 01/17/25 09:12 Dose: 30 mg Folic Acid (Folic Acid 1 Mg Tablet) 1 mg PO DAILY [facility] Last Admin: 01/17/25 09:50 Dose: 1 mg Gabapentin (Gabapentin 300 Mg Capsule) 600 mg PO TID [facility] Last Admin: 01/17/25 09:12 Dose: 600 mg Guaifenesin/Dextromethorphan (Guaifenesin Dm 100/10/5 Ml 5 Ml Syrup) 5 ml PO Q6H PRN PRN Reason: Cough Hydroxyzine HCl (Hydroxyzine Hcl 25 Mg Tablet) 50 mg PO Q6H PRN PRN Reason: mild anxiety Last Admin: 01/16/25 07:21 Dose: 50 mg Ibuprofen (Ibuprofen 600 Mg Tablet) 600 mg PO Q8H PRN PRN Reason: back pain Last Admin: 01/16/25 13:40 Dose: 600 mg Lactic Acid (Ammonium Lactate 12 % Lotion 226 Gm Bottle) 1 appl TOPICAL DAILY [facility]; Protocol Last Admin: 01/17/25 09:14 Dose: 1 appl Lamotrigine (Lamotrigine 25 Mg Tablet) 25 mg PO DAILY [facility] Last Admin: 01/17/25 09:11 Dose: 25 mg Loratadine (Loratadine 10 Mg Tablet) 10 mg PO DAILY [facility] Last Admin: 01/17/25 09:13 Dose: 10 mg Losartan Potassium (Losartan Potassium 50 Mg Tablet) 50 mg PO DAILY [facility]; Protocol Last Admin: 01/17/25 09:13 Dose: 50 mg Magnesium Hydroxide (Milk Of Magnesia 30 Ml Oral.Susp) 30 ml PO DAILY PRN PRN Reason: Constipation Last Admin: 01/16/25 13:40 Dose: 30 ml Melatonin (Melatonin 3 Mg Tablet) 3 mg PO BEDTIME PRN PRN Reason: Sleep Last Admin: 01/16/25 03:46 Dose: 3 mg Metformin HCl (Metformin Hcl Er 500 Mg Tab.Er.24h) 500 mg PO BID [facility] Last Admin: 01/17/25 09:13 Dose: 500 mg Metoprolol Succinate (Metoprolol Succinate Er 50 Mg Tab.Er.24h) 50 mg PO DAILY [facility]; Protocol Last Admin: 01/17/25 09:13 Dose: 50 mg Moxifloxacin HCl (Moxifloxacin Hcl 0.5 % Oph Francia 3 Ml Drpbtl) 1 drop EYE-BOTH TID [facility] Stop: 01/17/25 10:30 Last Admin: 01/17/25 09:14 Dose: 1 drop Multivitamins/Vitamin C (Multivitamin Tablet) 1 tab PO DAILY [facility] Last Admin: 01/17/25 09:12 Dose: 1 tab Naltrexone HCl (Naltrexone Hcl 50 Mg Tablet) 50 mg PO DAILY [facility] Last Admin: 01/17/25 09:12 Dose: 50 mg Nicotine (Nicotine 21 Mg Patch.Td24) 21 mg TRANSDERMA DAILY [facility] Last Admin: 01/17/25 09:14 Dose: 21 mg Nicotine Polacrilex (Nicotine Polacrilex 2 Mg Gum) 4 mg BUCCAL Q2H PRN PRN Reason: Nicotine Cravings Last Admin: 01/13/25 09:29 Dose: 4 mg Pt Own (Tirzepatide [Mounjaro] 2.5 Mg/0. 5 Ml Pen Injector) 2.5 mg SUBCUT Q7D [facility] Last Admin: 01/15/25 08:51 Dose: 2.5 mg Omeprazole (Omeprazole 20 Mg Capsule.Dr) 20 mg PO DAILY@0630 [facility] Last Admin: 01/17/25 06:38 Dose: 20 mg Ondansetron HCl (Ondansetron Odt 4 Mg Tab.Rapdis) 4 mg TRANSLINGU Q8H PRN PRN Reason: Nausea and Vomiting Last Admin: 01/14/25 10:54 Dose: 4 mg Polyethylene Glycol (Polyethylene Glycol 3350 17 Gm Powd.Pack) 17 gm PO DAILY [facility] Last Admin: 01/17/25 09:15 Dose: 17 gm Prazosin HCl (Prazosin Hcl 1 Mg Capsule) 4 mg PO BEDTIME [facility]; Protocol Last Admin: 01/16/25 20:25 Dose: 4 mg Thiamine HCl (Thiamine Hcl 100 Mg Tablet) 100 mg PO DAILY [facility] Last Admin: 01/17/25 09:12 Dose: 100 mg Tiotropium [place] (Tiotropium [place] 2.5 Mcg 1 Puff/2.5 Mcg Mist.Inhal) 2 puff INHALE RDAILY [facility] Last Admin: 01/17/25 09:06 Dose: 2 puff Trazodone HCl (Trazodone Hcl 50 Mg Tablet) 100 mg PO BEDTIME [facility] Last Admin: 01/16/25 20:25 Dose: 100 mg Allergies Allergies Allergy/AdvReac Type Severity Reaction Status Date / Time lisinopril Allergy Unknown Cough Verified 01/06/25 15:02 clonidine AdvReac Unknown Unknown Verified 01/06/25 15:02 Assessment & Plan Assessment & Plan (1) Sleep related hypoxia: Status: Acute Code(s): G47.34 - Idiopathic sleep related nonobstructive alveolar hypoventilation (2) Schizoaffective disorder: Status: Acute Code(s): F25.9 - Schizoaffective disorder, unspecified (3) Depression with suicidal ideation: Status: Acute Code(s): F32.A - Depression, unspecified; R45.851 - Suicidal ideations (4) Alcohol use disorder: Status: Acute Code(s): F10.90 - Alcohol use, unspecified, uncomplicated (5) Cannabis use disorder: Status: Acute Code(s): F12.90 - Cannabis use, unspecified, uncomplicated Plan 34-year-old male with past medical history listed below presented to the emergency department with suicidal ideation. Admitted for inpatient stabilization. Schizoaffective disorder/suicidal ideation/substance use disorder/alcohol use disorder Treatment per psychiatric team Type 2 diabetes Continue metformin b.i.d. Continue Mounjaro Recent A1c 5.8 done in August. Hypertension Continue amlodipine and Cozaar, Toprol Blood pressure stable ESHA on CPAP/Sleep-related hypoxia Patient utilizing CPAP at HS Will need CPAP use during nap time or supplemental oxygen to maintain sats greater than 90% Thank you for allowing me to participate in the care of this patient. Will follow with you, please notify medical provider with any changes in condition or concerns. 01/09/25: Decrease Gabapentin to 600 mg tid SARS/RSV/Flu EMycin Opth tid to both eyes 01/10/25: Emycin change to moxifloxacin Watch for the color of cornea to change- if this is observed, pt may need culture. Watch for excessive purulent discharge-if this is observed, pt may need culture 01/11 Patient says he is overall doing okay but has ongoing AH that Haldol does not seem to help much. Patient and mortgage or loan underwriter looked in saw that he is due for Haldol decanoate this coming Monday. Patient said that Haldol used to work well but then it seemed to stop working. Discussed other options in the past that he thinks that Clozaril helped before but for some reason he was taken off the and does not know why. Patient agreed to discuss further with primary team provider on returned this Monday -no change in cornea; no discharge. 01/13:Pt appears to have a clearer thought process with Haldol increase. Over the weekend he shares with team that Haldol does not stop voices for him, however, by history, Clozapine does. Discussed initiating Clozapine and he agrees. Flexeril/Ibuprofen ordered over the weekend as well. Pt reports sleep and appetite are intact. He is attending milieu activities. Conjunctivitis is present, resolving, pt reports less eye irritation. Denies SI,HI, +AH, -VH, -SIBS. Continues to believe his home is haunted and possessed and does not want to return there. Expressed fear and concern should he need to return. Tearful at times. Plan: Begin Haldol tapering Clozapine 25 mg HS 01/14:Pt reports vomiting x 1 this a.m. Later in the a.m. reports buring upon urination and urgency- Urine culture ordered along with pyridium. Clozaril increased to 50 mg HS. Pt in agreement. Pt requests we change Haldol as he reports voices, CAH- I am stupid, they will kill me, they will never let me alone, I will be poor, homeless Discussed Olanzapine- No, that does not work . Discussed chlorpromazine-he does not recall but asks to trial today. Checks changes to 5 minutes. Pt in group this afternoon. BP improved from 175/100 this a.m. to 155/61 this afternoon. Plan: DC Haldol Chlorpromazine trial Urine Culture Pyridium prn 01/15:Reports improvement in AH. Much better than yesterday however still present. Slept through the night with JEAN and prns needed. Attending groups Reports penile pain, frequency, burning, Urine culture negative. Requested hospitalist consult for further guidance. Pt did not try pyridium however will do so this afternoon. Plan: Hospitalist Consult Continue Clozapine titration. 01/16/25: Visible, pleasant and cooperative. Report CAH a little bit but he tries to ignore them. Report back pain an 8/10. No other complaint. Denies SI/SIB/VH. Very pleasant and cooperative. He says he needs to lose weight. Per nursing, slept for 6 hours, compliant with meds. No side effects, using Bipap at night. U/A negative. 01/17/25:Pt reports feeling better. Denies SI,HI. Mild AH, Denies VH Continues to report sedation-discussed decreasing Gabapentin to 300 mg tid which he asks to do. Will decrease Chlorpromazine to 50 mg tid from QID Will increase Clozapine to 100 mg HS Pyridium re-started as pt continues to report burning, penile pain- cleared by medicine on 01/15 for UTI and further STD infection. Encouraged increase in fluids/water to help manage sx. Attending groups. States he believes he is on the appropriate treatment track and is talking about going home soon. Regarding medications: -will hold Haldol decanoate for now so that patient can discuss this with Anna on her return -patient says Clozaril used to help and it was stopped for some unknown reason; he does not know if there was a medication side effect or not Reason for continued inpatient stay Substantial Risk for: rapid decompensation Time Spent With Patient Time: Total time managing care of this patient today ____ minutes.
[2025-01-17] MEDS: Milk of Magnesia 30 ML ORAL.SUSP PO (14:06)
[2025-01-17 20:00] VITALS: BP 129/85; PULSE 75; RESP 16; TEMP 36.6; O2SAT 95
[2025-01-17 20:15] VITALS: BP 129/85
[2025-01-18 06:30] VITALS: O2SAT 84
--- NOTE | 2025-01-18 06:46 | PC.NURSE ---
Addendum entered by Heather Gomez RN 01/18/25 07:22: Randee Quarles is the industrial controller provider and was notified via text at 0713. Addendum entered by Heather Gomez RN 01/18/25 06:52: Correction: O2 sats were evaluated at 0630 not 0530. Original Note: At 0530 patient was noted to have taken off his BIPAP mask and did not want it back on. Bipap and compressor removed from patient's room. At 0630 this fiction writer checked patient's O2 sats on room air and his saturation via O2 monitor ranged between 84-86%. This fiction writer will text information to Dr. Lee, industrial controller provider.
[2025-01-18 08:00] VITALS: BP 120/67; PULSE 95; RESP 16; TEMP 36.4; O2SAT 96
[2025-01-18] MEDS: Tiotropium Bromide 2.5 mcg 1 PUFF/2.5 MCG MIST.INHAL 2 PUFF INHALE (08:07)
[2025-01-18] MEDS: Ammonium Lactate 12 % Lotion 226 GM BOTTLE 1 APPL TOPICAL (08:07)
[2025-01-18] MEDS: Metoprolol Succinate ER 50 MG TAB.ER.24H PO (08:09)
[2025-01-18] MEDS: Nicotine 21 MG PATCH.TD24 TRANSDERMA (08:21)
[2025-01-18 20:00] VITALS: BP 124/74; PULSE 98; RESP 16; TEMP 36.5; O2SAT 98
[2025-01-18 20:05] VITALS: BP 124/74
--- NOTE | 2025-01-18 21:47 | HO.PSYCHPN ---
Subjective Subjective Date of Service: 01/18/25 Reason For Visit: schizoaffective disorder Subjective Notes: Conditional Voluntary Healthcare Proxy: No Guardianship: No Medical Problems Affecting Mental Status: No Interim History: Medical record and nursing notes reviewed; case discussed during rounds with team/nursing staff, and met with patient for supportive therapy/psychoeducation, as well as medication management. Met with patient in group room B where he is resided. Patient was sleeping but arousable. Denies anxiety or depression. Denies suicidal thoughts or voices today not now . Reports pain 7/10 in the groin area is much better today . Nursing reports that oxygen dropped this morning to 84%. Encourage elevated of head of the bed which I observed patient slept with bed elevated using pillows and blankets. Patient needs medical bed but not sure what we can do to accommodate. In addition, patient is overweight which affect is breathing and obstruction from sleep. Nursing to continue to monitor for VSs, especially O2 Sat level. Medication Compliance: Yes Side effects from medications: No Attending Groups: No Review of Systems Acute medical concerns: No Medical Review of Systems: unchanged Review of Systems Review of Systems No physical complaint but report pain in groin area. Monitor for Oxygen level. Mental Status Exam Mental Status Exam Narrative: Resting in room, pleasant and cooperative. Denies SI/SIB/HI/AVH. Fair judgment and insight. Diagnostics Vital Signs (24Hr): Vital Signs - 24 hr 01/18/25 06:30 01/18/25 08:00 01/18/25 20:00 Temperature 97.5 F 97.7 F Pulse Rate 95 98 Respiratory Rate 16 16 Blood Pressure 120/67 124/74 Pulse Oximetry 84 L 96 98 Oxygen Delivery Method Room Air Room Air Room Air 01/18/25 20:05 Temperature Pulse Rate Respiratory Rate Blood Pressure 124/74 Pulse Oximetry Oxygen Delivery Method BMI result Body Mass Index 56.3 Labs 01/06/25 15:22 01/15/25 10:06 Imaging Radiology Impressions: ITS Impressions Chest X-Ray 01/08/25 14:24 IMPRESSION: Low lung volumes without definite active disease. Electronically signed by: Foster Mckinnon MD 01/08/2025 02:37 PM [facility] Medications Medications Current Medications Acetaminophen (Acetaminophen 325 Mg Tablet) 650 mg PO Q6H PRN PRN Reason: Headache/Pain, Scale 1-10 Last Admin: 01/16/25 13:40 Dose: 650 mg Al Hydroxide/Mg Hydroxide (Magnesium Hydrox/Alum Hydrox 30 Ml Oral.Susp) 30 ml PO Q6H PRN PRN Reason: Heartburn/Nausea Albuterol Sulfate (Albuterol Sulfate 90 Mcg 8 Gm Inhaler) 1 puff INHALE QID PRN PRN Reason: Wheezing Amlodipine Besylate (Amlodipine Besylate 10 Mg Tablet) 10 mg PO DAILY [facility]; Protocol Last Admin: 01/18/25 08:09 Dose: 10 mg Benztropine Mesylate (Benztropine Mesylate 1 Mg Tablet) 1 mg PO BID [facility] Last Admin: 01/18/25 20:06 Dose: 1 mg Chlorpromazine HCl (Chlorpromazine Hcl 100 Mg Tablet) 100 mg PO BID PRN PRN Reason: agitation, psychosis Last Admin: 01/17/25 13:39 Dose: 100 mg Chlorpromazine HCl (Chlorpromazine Hcl 25 Mg Tablet) 50 mg PO TID [facility] Last Admin: 01/18/25 20:05 Dose: 50 mg Clozapine (Clozapine 100 Mg Tablet) 100 mg PO BEDTIME [facility] Last Admin: 01/18/25 20:05 Dose: 100 mg Cyclobenzaprine HCl (Cyclobenzaprine Hcl 10 Mg Tablet) 10 mg PO TID [facility] Last Admin: 01/18/25 20:05 Dose: 10 mg Docusate Sodium (Docusate Sodium 100 Mg Capsule) 100 mg PO BID PRN PRN Reason: Constipation Last Admin: 01/17/25 14:06 Dose: 100 mg Duloxetine HCl (Duloxetine Hcl 30 Mg Capsule.Dr) 30 mg PO DAILY [facility] Last Admin: 01/18/25 08:09 Dose: 30 mg Folic Acid (Folic Acid 1 Mg Tablet) 1 mg PO DAILY [facility] Last Admin: 01/18/25 08:09 Dose: 1 mg Gabapentin (Gabapentin 300 Mg Capsule) 300 mg PO TID [facility] Last Admin: 01/18/25 20:05 Dose: 300 mg Guaifenesin/Dextromethorphan (Guaifenesin Dm 100/10/5 Ml 5 Ml Syrup) 5 ml PO Q6H PRN PRN Reason: Cough Hydroxyzine HCl (Hydroxyzine Hcl 25 Mg Tablet) 50 mg PO Q6H PRN PRN Reason: mild anxiety Last Admin: 01/16/25 07:21 Dose: 50 mg Ibuprofen (Ibuprofen 600 Mg Tablet) 600 mg PO Q8H PRN PRN Reason: back pain Last Admin: 01/16/25 13:40 Dose: 600 mg Lactic Acid (Ammonium Lactate 12 % Lotion 226 Gm Bottle) 1 appl TOPICAL DAILY [facility]; Protocol Last Admin: 01/18/25 08:07 Dose: 1 appl Lamotrigine (Lamotrigine 25 Mg Tablet) 25 mg PO DAILY [facility] Last Admin: 01/18/25 08:09 Dose: 25 mg Loratadine (Loratadine 10 Mg Tablet) 10 mg PO DAILY [facility] Last Admin: 01/18/25 08:09 Dose: 10 mg Losartan Potassium (Losartan Potassium 50 Mg Tablet) 50 mg PO DAILY [facility]; Protocol Last Admin: 01/18/25 08:08 Dose: 50 mg Magnesium Hydroxide (Milk Of Magnesia 30 Ml Oral.Susp) 30 ml PO DAILY PRN PRN Reason: Constipation Last Admin: 01/17/25 14:06 Dose: 30 ml Melatonin (Melatonin 3 Mg Tablet) 3 mg PO BEDTIME PRN PRN Reason: Sleep Last Admin: 01/18/25 02:40 Dose: 3 mg Metformin HCl (Metformin Hcl Er 500 Mg Tab.Er.24h) 500 mg PO BID [facility] Last Admin: 01/18/25 20:05 Dose: 500 mg Metoprolol Succinate (Metoprolol Succinate Er 50 Mg Tab.Er.24h) 50 mg PO DAILY [facility]; Protocol Last Admin: 01/18/25 08:09 Dose: 50 mg Multivitamins/Vitamin C (Multivitamin Tablet) 1 tab PO DAILY [facility] Last Admin: 01/18/25 08:09 Dose: 1 tab Naltrexone HCl (Naltrexone Hcl 50 Mg Tablet) 50 mg PO DAILY [facility] Last Admin: 01/18/25 08:08 Dose: 50 mg Nicotine (Nicotine 21 Mg Patch.Td24) 21 mg TRANSDERMA DAILY [facility] Last Admin: 01/18/25 08:21 Dose: 21 mg Nicotine Polacrilex (Nicotine Polacrilex 2 Mg Gum) 4 mg BUCCAL Q2H PRN PRN Reason: Nicotine Cravings Last Admin: 01/18/25 08:20 Dose: 4 mg Pt Own (Tirzepatide [Mounjaro] 2.5 Mg/0. 5 Ml Pen Injector) 2.5 mg SUBCUT Q7D [facility] Last Admin: 01/15/25 08:51 Dose: 2.5 mg Omeprazole (Omeprazole 20 Mg Capsule.Dr) 20 mg PO DAILY@0630 [facility] Last Admin: 01/18/25 06:33 Dose: 20 mg Ondansetron HCl (Ondansetron Odt 4 Mg Tab.Rapdis) 4 mg TRANSLINGU Q8H PRN PRN Reason: Nausea and Vomiting Last Admin: 01/14/25 10:54 Dose: 4 mg Phenazopyridine HCl (Phenazopyridine Hcl 100 Mg Tablet) 100 mg PO TIDWM PRN PRN Reason: penile, urinary pain Stop: 01/19/25 14:28 Last Admin: 01/17/25 17:32 Dose: 100 mg Polyethylene Glycol (Polyethylene Glycol 3350 17 Gm Powd.Pack) 17 gm PO DAILY [facility] Last Admin: 01/18/25 08:10 Dose: Not Given Prazosin HCl (Prazosin Hcl 1 Mg Capsule) 4 mg PO BEDTIME [facility]; Protocol Last Admin: 01/18/25 20:05 Dose: 4 mg Thiamine HCl (Thiamine Hcl 100 Mg Tablet) 100 mg PO DAILY [facility] Last Admin: 01/18/25 08:09 Dose: 100 mg Tiotropium [place] (Tiotropium [place] 2.5 Mcg 1 Puff/2.5 Mcg Mist.Inhal) 2 puff INHALE RDAILY [facility] Last Admin: 01/18/25 08:07 Dose: 2 puff Trazodone HCl (Trazodone Hcl 50 Mg Tablet) 100 mg PO BEDTIME [facility] Last Admin: 01/18/25 20:05 Dose: 100 mg Allergies Allergies Allergy/AdvReac Type Severity Reaction Status Date / Time lisinopril Allergy Unknown Cough Verified 01/06/25 15:02 clonidine AdvReac Unknown Unknown Verified 01/06/25 15:02 Assessment & Plan Assessment & Plan (1) Sleep related hypoxia: Status: Acute Code(s): G47.34 - Idiopathic sleep related nonobstructive alveolar hypoventilation (2) Schizoaffective disorder: Status: Acute Code(s): F25.9 - Schizoaffective disorder, unspecified (3) Depression with suicidal ideation: Status: Acute Code(s): F32.A - Depression, unspecified; R45.851 - Suicidal ideations (4) Alcohol use disorder: Status: Acute Code(s): F10.90 - Alcohol use, unspecified, uncomplicated (5) Cannabis use disorder: Status: Acute Code(s): F12.90 - Cannabis use, unspecified, uncomplicated Plan 34-year-old male with past medical history listed below presented to the emergency department with suicidal ideation. Admitted for inpatient stabilization. Schizoaffective disorder/suicidal ideation/substance use disorder/alcohol use disorder Treatment per psychiatric team Type 2 diabetes Continue metformin b.i.d. Continue Mounjaro Recent A1c 5.8 done in August. Hypertension Continue amlodipine and Cozaar, Toprol Blood pressure stable ESHA on CPAP/Sleep-related hypoxia Patient utilizing CPAP at HS Will need CPAP use during nap time or supplemental oxygen to maintain sats greater than 90% Thank you for allowing me to participate in the care of this patient. Will follow with you, please notify medical provider with any changes in condition or concerns. 01/09/25: Decrease Gabapentin to 600 mg tid SARS/RSV/Flu EMycin Opth tid to both eyes 01/10/25: Emycin change to moxifloxacin Watch for the color of cornea to change- if this is observed, pt may need culture. Watch for excessive purulent discharge-if this is observed, pt may need culture 01/11 Patient says he is overall doing okay but has ongoing AH that Haldol does not seem to help much. Patient and instructional writer looked in saw that he is due for Haldol decanoate this coming Monday. Patient said that Haldol used to work well but then it seemed to stop working. Discussed other options in the past that he thinks that Clozaril helped before but for some reason he was taken off the and does not know why. Patient agreed to discuss further with primary team provider on returned this Monday -no change in cornea; no discharge. 01/13:Pt appears to have a clearer thought process with Haldol increase. Over the weekend he shares with team that Haldol does not stop voices for him, however, by history, Clozapine does. Discussed initiating Clozapine and he agrees. Flexeril/Ibuprofen ordered over the weekend as well. Pt reports sleep and appetite are intact. He is attending milieu activities. Conjunctivitis is present, resolving, pt reports less eye irritation. Denies SI,HI, +AH, -VH, -SIBS. Continues to believe his home is haunted and possessed and does not want to return there. Expressed fear and concern should he need to return. Tearful at times. Plan: Begin Haldol tapering Clozapine 25 mg HS 01/14:Pt reports vomiting x 1 this a.m. Later in the a.m. reports buring upon urination and urgency- Urine culture ordered along with pyridium. Clozaril increased to 50 mg HS. Pt in agreement. Pt requests we change Haldol as he reports voices, CAH- I am stupid, they will kill me, they will never let me alone, I will be poor, homeless Discussed Olanzapine- No, that does not work . Discussed chlorpromazine-he does not recall but asks to trial today. Checks changes to 5 minutes. Pt in group this afternoon. BP improved from 175/100 this a.m. to 155/61 this afternoon. Plan: DC Haldol Chlorpromazine trial Urine Culture Pyridium prn 01/15:Reports improvement in AH. Much better than yesterday however still present. Slept through the night with JEAN and prns needed. Attending groups Reports penile pain, frequency, burning, Urine culture negative. Requested hospitalist consult for further guidance. Pt did not try pyridium however will do so this afternoon. Plan: Hospitalist Consult Continue Clozapine titration. 01/16/25: Visible, pleasant and cooperative. Report CAH a little bit but he tries to ignore them. Report back pain an 8/10. No other complaint. Denies SI/SIB/VH. Very pleasant and cooperative. He says he needs to lose weight. Per nursing, slept for 6 hours, compliant with meds. No side effects, using Bipap at night. U/A negative. 01/17/25:Pt reports feeling better. Denies SI,HI. Mild AH, Denies VH Continues to report sedation-discussed decreasing Gabapentin to 300 mg tid which he asks to do. Will decrease Chlorpromazine to 50 mg tid from QID Will increase Clozapine to 100 mg HS Pyridium re-started as pt continues to report burning, penile pain- cleared by medicine on 01/15 for UTI and further STD infection. Encouraged increase in fluids/water to help manage sx. Attending groups. States he believes he is on the appropriate treatment track and is talking about going home soon. 01/18/25: Met with patient in group room B where he is resided. Patient was sleeping but arousable. Denies anxiety or depression. Denies suicidal thoughts or voices today not now . Reports pain 7/10 in the groin area is much better today . Nursing reports that oxygen dropped this morning to 84%. Encourage elevated of head of the bed which I observed patient slept with bed elevated using pillows and blankets. Patient needs medical bed but not sure what we can do to accommodate. In addition, patient is overweight which affect is breathing and obstruction from sleep. Nursing to continue to monitor for VSs, especially O2 Sat level. Regarding medications: -will hold Haldol decanoate for now so that patient can discuss this with Anna on her return -patient says Clozaril used to help and it was stopped for some unknown reason; he does not know if there was a medication side effect or not Patient educated on: diagnosis, medication risk/benefits and therapeutic strategies Informed Consent: understands and further education needed Reason for continued inpatient stay Substantial Risk for: med/psych decompensation Time Spent With Patient Time: Total time managing care of this patient today ____ minutes.
--- NOTE | 2025-01-19 00:42 | PC.NURSE ---
Stef c/o having issues with breathing due to mattress still to flat. This proposal lead writer obtained a wedge pillow from OT office and placed it on patient's bed. He stated This is much better, thank you .
[2025-01-19 06:57] VITALS: PULSE 104; O2SAT 91
[2025-01-19 07:55] VITALS: BP 173/89; PULSE 103; RESP 18; TEMP 36.4; O2SAT 91
[2025-01-19] MEDS: Metoprolol Succinate ER 50 MG TAB.ER.24H PO (09:18)
[2025-01-19] MEDS: Ammonium Lactate 12 % Lotion 226 GM BOTTLE 1 APPL TOPICAL (09:23)
[2025-01-19] MEDS: Nicotine 21 MG PATCH.TD24 TRANSDERMA (09:27)
[2025-01-19] MEDS: Tiotropium Bromide 2.5 mcg 1 PUFF/2.5 MCG MIST.INHAL 2 PUFF INHALE (09:27)
[2025-01-19] MEDS: guaiFENesin DM 100/10/5 ML 5 ML SYRUP PO (13:55)
[2025-01-19 19:56] VITALS: BP 136/95; PULSE 96; RESP 15; TEMP 36.8; O2SAT 95
[2025-01-19] MEDS: Throat Lozenge, Medicated LOZENGE 1 LOZENGE MUCOUS MEM (20:52)
--- NOTE | 2025-01-19 21:37 | HO.PSYCHPN ---
Subjective Subjective Date of Service: 01/19/25 Reason For Visit: schizoaffective disorder Subjective Notes: Conditional Voluntary Healthcare Proxy: No Guardianship: No Medical Problems Affecting Mental Status: No Interim History: Medical record and nursing notes reviewed; case discussed during rounds with team/nursing staff, and met with patient for supportive therapy/psychoeducation, as well as medication management. Patient report AH is so so not disclose what AH is about. Report to RN bad voices in the morning, took PRN with good effects. Report that they are trying to find me a respite . He asks about Vitamin B12 shot and asked if he needs to use oxygen at night for sleep upon discharge. Report sore throat and request Cepacol. Patient was medication compliant but refused Miralax. No change in behavior. Voices are still there but he is able to distract himself. Sleep and appetite are good. Denies SI/SIB/HI/VH Medication Compliance: Yes Side effects from medications: No Attending Groups: Intermittent Review of Systems Acute medical concerns: No Medical Review of Systems: unchanged Review of Systems Review of Systems No physical complaint but report sore throat. Monitor for Oxygen level. only one episode of low at 84% after waking up. Mental Status Exam Mental Status Exam Narrative: pleasant and cooperative. Denies SI/SIB/HI/AH. +AH. Fair judgment and insight. Diagnostics Vital Signs (24Hr): Vital Signs - 24 hr 01/19/25 06:57 01/19/25 07:55 01/19/25 19:56 Temperature 97.6 F 98.2 F Pulse Rate 104 H 103 H 96 Respiratory Rate 18 15 Blood Pressure 173/89 H 136/95 H Pulse Oximetry 91 L 91 L 95 Oxygen Delivery Method BiPAP Room Air BMI result Body Mass Index 56.3 Labs 01/06/25 15:22 01/15/25 10:06 Imaging Radiology Impressions: ITS Impressions Chest X-Ray 01/08/25 14:24 IMPRESSION: Low lung volumes without definite active disease. Electronically signed by: Foster Mckinnon MD 01/08/2025 02:37 PM [facility] Medications Medications Current Medications Acetaminophen (Acetaminophen 325 Mg Tablet) 650 mg PO Q6H PRN PRN Reason: Headache/Pain, Scale 1-10 Last Admin: 01/16/25 13:40 Dose: 650 mg Al Hydroxide/Mg Hydroxide (Magnesium Hydrox/Alum Hydrox 30 Ml Oral.Susp) 30 ml PO Q6H PRN PRN Reason: Heartburn/Nausea Albuterol Sulfate (Albuterol Sulfate 90 Mcg 8 Gm Inhaler) 1 puff INHALE QID PRN PRN Reason: Wheezing Amlodipine Besylate (Amlodipine Besylate 10 Mg Tablet) 10 mg PO DAILY [facility]; Protocol Last Admin: 01/19/25 09:18 Dose: 10 mg Benzocaine (Throat Lozenge, Medicated Lozenge) 1 lozenge MUCOUS MEM Q2H PRN PRN Reason: Sore Throat Last Admin: 01/19/25 20:52 Dose: 1 lozenge Benztropine Mesylate (Benztropine Mesylate 1 Mg Tablet) 1 mg PO BID [facility] Last Admin: 01/19/25 20:52 Dose: 1 mg Chlorpromazine HCl (Chlorpromazine Hcl 100 Mg Tablet) 100 mg PO BID PRN PRN Reason: agitation, psychosis Last Admin: 01/19/25 10:21 Dose: 100 mg Chlorpromazine HCl (Chlorpromazine Hcl 25 Mg Tablet) 50 mg PO TID [facility] Last Admin: 01/19/25 20:52 Dose: 50 mg Clozapine (Clozapine 100 Mg Tablet) 100 mg PO BEDTIME [facility] Last Admin: 01/19/25 20:52 Dose: 100 mg Cyclobenzaprine HCl (Cyclobenzaprine Hcl 10 Mg Tablet) 10 mg PO TID [facility] Last Admin: 01/19/25 20:52 Dose: 10 mg Docusate Sodium (Docusate Sodium 100 Mg Capsule) 100 mg PO BID PRN PRN Reason: Constipation Last Admin: 01/17/25 14:06 Dose: 100 mg Duloxetine HCl (Duloxetine Hcl 30 Mg Capsule.Dr) 30 mg PO DAILY [facility] Last Admin: 01/19/25 09:18 Dose: 30 mg Folic Acid (Folic Acid 1 Mg Tablet) 1 mg PO DAILY [facility] Last Admin: 01/19/25 09:18 Dose: 1 mg Gabapentin (Gabapentin 300 Mg Capsule) 300 mg PO TID [facility] Last Admin: 01/19/25 20:52 Dose: 300 mg Guaifenesin/Dextromethorphan (Guaifenesin Dm 100/10/5 Ml 5 Ml Syrup) 5 ml PO Q6H PRN PRN Reason: Cough Last Admin: 01/19/25 13:55 Dose: 5 ml Hydroxyzine HCl (Hydroxyzine Hcl 25 Mg Tablet) 50 mg PO Q6H PRN PRN Reason: mild anxiety Last Admin: 01/19/25 10:21 Dose: 50 mg Ibuprofen (Ibuprofen 600 Mg Tablet) 600 mg PO Q8H PRN PRN Reason: back pain Last Admin: 01/19/25 17:06 Dose: 600 mg Lactic Acid (Ammonium Lactate 12 % Lotion 226 Gm Bottle) 1 appl TOPICAL DAILY [facility]; Protocol Last Admin: 01/19/25 09:23 Dose: 1 appl Lamotrigine (Lamotrigine 25 Mg Tablet) 25 mg PO DAILY [facility] Last Admin: 01/19/25 09:18 Dose: 25 mg Loratadine (Loratadine 10 Mg Tablet) 10 mg PO DAILY [facility] Last Admin: 01/19/25 09:19 Dose: 10 mg Losartan Potassium (Losartan Potassium 50 Mg Tablet) 50 mg PO DAILY [facility]; Protocol Last Admin: 01/19/25 09:18 Dose: 50 mg Magnesium Hydroxide (Milk Of Magnesia 30 Ml Oral.Susp) 30 ml PO DAILY PRN PRN Reason: Constipation Last Admin: 01/17/25 14:06 Dose: 30 ml Melatonin (Melatonin 3 Mg Tablet) 3 mg PO BEDTIME PRN PRN Reason: Sleep Last Admin: 01/18/25 02:40 Dose: 3 mg Metformin HCl (Metformin Hcl Er 500 Mg Tab.Er.24h) 500 mg PO BID [facility] Last Admin: 01/19/25 20:51 Dose: 500 mg Metoprolol Succinate (Metoprolol Succinate Er 50 Mg Tab.Er.24h) 50 mg PO DAILY [facility]; Protocol Last Admin: 01/19/25 09:18 Dose: 50 mg Multivitamins/Vitamin C (Multivitamin Tablet) 1 tab PO DAILY [facility] Last Admin: 01/19/25 09:18 Dose: 1 tab Naltrexone HCl (Naltrexone Hcl 50 Mg Tablet) 50 mg PO DAILY [facility] Last Admin: 01/19/25 09:18 Dose: 50 mg Nicotine (Nicotine 21 Mg Patch.Td24) 21 mg TRANSDERMA DAILY [facility] Last Admin: 01/19/25 09:27 Dose: 21 mg Nicotine Polacrilex (Nicotine Polacrilex 2 Mg Gum) 4 mg BUCCAL Q2H PRN PRN Reason: Nicotine Cravings Last Admin: 01/19/25 13:55 Dose: 4 mg Pt Own (Tirzepatide [Mounjaro] 2.5 Mg/0. 5 Ml Pen Injector) 2.5 mg SUBCUT Q7D [facility] Last Admin: 01/15/25 08:51 Dose: 2.5 mg Omeprazole (Omeprazole 20 Mg Capsule.Dr) 20 mg PO DAILY@0630 [facility] Last Admin: 01/19/25 06:42 Dose: 20 mg Ondansetron HCl (Ondansetron Odt 4 Mg Tab.Rapdis) 4 mg TRANSLINGU Q8H PRN PRN Reason: Nausea and Vomiting Last Admin: 01/14/25 10:54 Dose: 4 mg Polyethylene Glycol (Polyethylene Glycol 3350 17 Gm Powd.Pack) 17 gm PO DAILY [facility] Last Admin: 01/19/25 09:30 Dose: Not Given Prazosin HCl (Prazosin Hcl 1 Mg Capsule) 4 mg PO BEDTIME [facility]; Protocol Last Admin: 01/19/25 20:51 Dose: 4 mg Thiamine HCl (Thiamine Hcl 100 Mg Tablet) 100 mg PO DAILY [facility] Last Admin: 01/19/25 09:18 Dose: 100 mg Tiotropium [place] (Tiotropium [place] 2.5 Mcg 1 Puff/2.5 Mcg Mist.Inhal) 2 puff INHALE RDAILY [facility] Last Admin: 01/19/25 09:27 Dose: 2 puff Trazodone HCl (Trazodone Hcl 50 Mg Tablet) 100 mg PO BEDTIME [facility] Last Admin: 01/19/25 20:51 Dose: 100 mg Allergies Allergies Allergy/AdvReac Type Severity Reaction Status Date / Time lisinopril Allergy Unknown Cough Verified 01/06/25 15:02 clonidine AdvReac Unknown Unknown Verified 01/06/25 15:02 Assessment & Plan Assessment & Plan (1) Sleep related hypoxia: Status: Acute Code(s): G47.34 - Idiopathic sleep related nonobstructive alveolar hypoventilation (2) Schizoaffective disorder: Status: Acute Code(s): F25.9 - Schizoaffective disorder, unspecified (3) Depression with suicidal ideation: Status: Acute Code(s): F32.A - Depression, unspecified; R45.851 - Suicidal ideations (4) Alcohol use disorder: Status: Acute Code(s): F10.90 - Alcohol use, unspecified, uncomplicated (5) Cannabis use disorder: Status: Acute Code(s): F12.90 - Cannabis use, unspecified, uncomplicated Plan 34-year-old male with past medical history listed below presented to the emergency department with suicidal ideation. Admitted for inpatient stabilization. Schizoaffective disorder/suicidal ideation/substance use disorder/alcohol use disorder Treatment per psychiatric team Type 2 diabetes Continue metformin b.i.d. Continue Mounjaro Recent A1c 5.8 done in August. Hypertension Continue amlodipine and Cozaar, Toprol Blood pressure stable ESHA on CPAP/Sleep-related hypoxia Patient utilizing CPAP at HS Will need CPAP use during nap time or supplemental oxygen to maintain sats greater than 90% Thank you for allowing me to participate in the care of this patient. Will follow with you, please notify medical provider with any changes in condition or concerns. 01/09/25: Decrease Gabapentin to 600 mg tid SARS/RSV/Flu EMycin Opth tid to both eyes 01/10/25: Emycin change to moxifloxacin Watch for the color of cornea to change- if this is observed, pt may need culture. Watch for excessive purulent discharge-if this is observed, pt may need culture 01/11 Patient says he is overall doing okay but has ongoing AH that Haldol does not seem to help much. Patient and abstract writer looked in saw that he is due for Haldol decanoate this coming Monday. Patient said that Haldol used to work well but then it seemed to stop working. Discussed other options in the past that he thinks that Clozaril helped before but for some reason he was taken off the and does not know why. Patient agreed to discuss further with primary team provider on returned this Monday -no change in cornea; no discharge. 01/13:Pt appears to have a clearer thought process with Haldol increase. Over the weekend he shares with team that Haldol does not stop voices for him, however, by history, Clozapine does. Discussed initiating Clozapine and he agrees. Flexeril/Ibuprofen ordered over the weekend as well. Pt reports sleep and appetite are intact. He is attending milieu activities. Conjunctivitis is present, resolving, pt reports less eye irritation. Denies SI,HI, +AH, -VH, -SIBS. Continues to believe his home is haunted and possessed and does not want to return there. Expressed fear and concern should he need to return. Tearful at times. Plan: Begin Haldol tapering Clozapine 25 mg HS 01/14:Pt reports vomiting x 1 this a.m. Later in the a.m. reports buring upon urination and urgency- Urine culture ordered along with pyridium. Clozaril increased to 50 mg HS. Pt in agreement. Pt requests we change Haldol as he reports voices, CAH- I am stupid, they will kill me, they will never let me alone, I will be poor, homeless Discussed Olanzapine- No, that does not work . Discussed chlorpromazine-he does not recall but asks to trial today. Checks changes to 5 minutes. Pt in group this afternoon. BP improved from 175/100 this a.m. to 155/61 this afternoon. Plan: DC Haldol Chlorpromazine trial Urine Culture Pyridium prn 01/15:Reports improvement in AH. Much better than yesterday however still present. Slept through the night with JEAN and prns needed. Attending groups Reports penile pain, frequency, burning, Urine culture negative. Requested hospitalist consult for further guidance. Pt did not try pyridium however will do so this afternoon. Plan: Hospitalist Consult Continue Clozapine titration. 01/16/25: Visible, pleasant and cooperative. Report CAH a little bit but he tries to ignore them. Report back pain an 8/10. No other complaint. Denies SI/SIB/VH. Very pleasant and cooperative. He says he needs to lose weight. Per nursing, slept for 6 hours, compliant with meds. No side effects, using Bipap at night. U/A negative. 01/17/25:Pt reports feeling better. Denies SI,HI. Mild AH, Denies VH Continues to report sedation-discussed decreasing Gabapentin to 300 mg tid which he asks to do. Will decrease Chlorpromazine to 50 mg tid from QID Will increase Clozapine to 100 mg HS Pyridium re-started as pt continues to report burning, penile pain- cleared by medicine on 01/15 for UTI and further STD infection. Encouraged increase in fluids/water to help manage sx. Attending groups. States he believes he is on the appropriate treatment track and is talking about going home soon. 01/18/25: Met with patient in group room B where he is resided. Patient was sleeping but arousable. Denies anxiety or depression. Denies suicidal thoughts or voices today not now . Reports pain 7/10 in the groin area is much better today . Nursing reports that oxygen dropped this morning to 84%. Encourage elevated of head of the bed which I observed patient slept with bed elevated using pillows and blankets. Patient needs medical bed but not sure what we can do to accommodate. In addition, patient is overweight which affect is breathing and obstruction from sleep. Nursing to continue to monitor for VSs, especially O2 Sat level. 01/19/25: Patient report AH is so so not disclose what AH is about. Report to RN bad voices in the morning, took PRN with good effects. Report that they are trying to find me a respite . He asks about Vitamin B12 shot and asked if he needs to use oxygen at night for sleep upon discharge. Report sore throat and request Cepacol. Patient was medication compliant but refused Miralax. No change in behavior. Voices are still there but he is able to distract himself. Sleep and appetite are good. Denies SI/SIB/HI/VH Regarding medications: -will hold Haldol decanoate for now so that patient can discuss this with Anna on her return -patient says Clozaril used to help and it was stopped for some unknown reason; he does not know if there was a medication side effect or not Patient educated on: diagnosis, medication risk/benefits and therapeutic strategies Informed Consent: understands and further education needed Reason for continued inpatient stay Substantial Risk for: med/psych decompensation Time Spent With Patient Time: Total time managing care of this patient today ____ minutes.
[2025-01-20 10:03] VITALS: BP 134/68; PULSE 101; RESP 16; TEMP 36.7; O2SAT 93
[2025-01-20] MEDS: Ammonium Lactate 12 % Lotion 226 GM BOTTLE 1 APPL TOPICAL (10:04)
[2025-01-20] MEDS: Tiotropium Bromide 2.5 mcg 1 PUFF/2.5 MCG MIST.INHAL 2 PUFF INHALE (10:04)
[2025-01-20] MEDS: Metoprolol Succinate ER 50 MG TAB.ER.24H PO (10:05)
[2025-01-20] MEDS: Nicotine 21 MG PATCH.TD24 TRANSDERMA (10:23)
[2025-01-20] MEDS: Throat Lozenge, Medicated LOZENGE 1 LOZENGE MUCOUS MEM (13:49)
[2025-01-20] MEDS: guaiFENesin DM 100/10/5 ML 5 ML SYRUP PO (13:49)
[2025-01-20] MEDS: Artificial Tears 15 ML DROPS 2 DROP EYE-BOTH (15:51)
[2025-01-20 16:13] VITALS: BP 141/80; PULSE 95; O2SAT 93
[2025-01-20 20:00] VITALS: BP 150/84; PULSE 90; RESP 18; TEMP 37.1; O2SAT 99
[2025-01-20 21:54] VITALS: BP 150/84
--- NOTE | 2025-01-20 23:26 | HO.PSYCHPN ---
Subjective Subjective Date of Service: 01/20/25 Reason For Visit: schizoaffective disorder Subjective Notes: Conditional Voluntary Healthcare Proxy: No Guardianship: No Medical Problems Affecting Mental Status: No Interim History: Medical record and nursing notes reviewed; case discussed during rounds with team/nursing staff, and met with patient for supportive therapy/psychoeducation, as well as medication management. Visible, pleasant, cooperative.Denies pain. Denies voices but report it comes and goes and when experienced, it is usually CAH to kill myself but report safe and not listen to the voices. Agree with Clozaril increased up to 125mg at HS. Artificial tear drop ordered for dry eye. Denies SI/SIB/HI. Medication Compliance: Yes Side effects from medications: No Attending Groups: Intermittent Review of Systems Acute medical concerns: No Medical Review of Systems: unchanged Review of Systems Review of Systems No physical complaint but report dry eye. Monitor for Oxygen level. only one episode of low at 84% after waking up a couple days ago. Mental Status Exam Mental Status Exam Narrative: pleasant and cooperative. Denies SI/SIB/HI/AH. CAH comes and goes. Fair judgment and insight. Diagnostics Vital Signs (24Hr): Vital Signs - 24 hr 01/20/25 10:03 01/20/25 16:13 01/20/25 20:00 Temperature 98.1 F 98.7 F Pulse Rate 101 H 95 90 Respiratory Rate 16 18 Blood Pressure 134/68 141/80 H 150/84 H Pulse Oximetry 93 93 99 Oxygen Delivery Method Room Air Room Air Room Air 01/20/25 21:54 Temperature Pulse Rate Respiratory Rate Blood Pressure 150/84 H Pulse Oximetry Oxygen Delivery Method BMI result Body Mass Index 56.3 Labs 01/06/25 15:22 01/15/25 10:06 Imaging Radiology Impressions: ITS Impressions Chest X-Ray 01/08/25 14:24 IMPRESSION: Low lung volumes without definite active disease. Electronically signed by: Foster Mckinnon MD 01/08/2025 02:37 [place] [facility] [place] Medications Current Medications Acetaminophen (Acetaminophen 325 Mg Tablet) 650 mg PO Q6H PRN PRN Reason: Headache/Pain, Scale 1-10 Last Admin: 01/20/25 15:52 Dose: 650 mg Al Hydroxide/Mg Hydroxide (Magnesium Hydrox/Alum Hydrox 30 Ml Oral.Susp) 30 ml PO Q6H PRN PRN Reason: Heartburn/Nausea Albuterol Sulfate (Albuterol Sulfate 90 Mcg 8 Gm Inhaler) 1 puff INHALE QID PRN PRN Reason: Wheezing Amlodipine Besylate (Amlodipine Besylate 10 Mg Tablet) 10 mg PO DAILY [facility]; Protocol Last Admin: 01/20/25 10:05 Dose: 10 mg Artificial Tears (Artificial Tears 15 Ml Drops) 2 drop EYE-BOTH Q4H PRN PRN Reason: Dry Eyes Last Admin: 01/20/25 15:51 Dose: 2 drop Benzocaine (Throat Lozenge, Medicated Lozenge) 1 lozenge MUCOUS MEM Q2H PRN PRN Reason: Sore Throat Last Admin: 01/20/25 13:49 Dose: 1 lozenge Benztropine Mesylate (Benztropine Mesylate 1 Mg Tablet) 1 mg PO BID [facility] Last Admin: 01/20/25 21:55 Dose: 1 mg Chlorpromazine HCl (Chlorpromazine Hcl 100 Mg Tablet) 100 mg PO BID PRN PRN Reason: agitation, psychosis Last Admin: 01/20/25 13:28 Dose: 100 mg Chlorpromazine HCl (Chlorpromazine Hcl 25 Mg Tablet) 50 mg PO TID [facility] Last Admin: 01/20/25 21:54 Dose: 50 mg Clozapine 100 mg/ Clozapine 25 (mg) 125 mg PO BEDTIME [facility] Last Admin: 01/20/25 21:55 Dose: 125 mg Cyclobenzaprine HCl (Cyclobenzaprine Hcl 10 Mg Tablet) 10 mg PO TID [facility] Last Admin: 01/20/25 21:55 Dose: 10 mg Docusate Sodium (Docusate Sodium 100 Mg Capsule) 100 mg PO BID PRN PRN Reason: Constipation Last Admin: 01/17/25 14:06 Dose: 100 mg Duloxetine HCl (Duloxetine Hcl 30 Mg Capsule.Dr) 30 mg PO DAILY [facility] Last Admin: 01/20/25 10:06 Dose: 30 mg Folic Acid (Folic Acid 1 Mg Tablet) 1 mg PO DAILY [facility] Last Admin: 01/20/25 10:05 Dose: 1 mg Gabapentin (Gabapentin 300 Mg Capsule) 300 mg PO TID [facility] Last Admin: 01/20/25 21:55 Dose: 300 mg Guaifenesin/Dextromethorphan (Guaifenesin Dm 100/10/5 Ml 5 Ml Syrup) 5 ml PO Q6H PRN PRN Reason: Cough Last Admin: 01/20/25 13:49 Dose: 5 ml Hydroxyzine HCl (Hydroxyzine Hcl 25 Mg Tablet) 50 mg PO Q6H PRN PRN Reason: mild anxiety Last Admin: 01/20/25 10:31 Dose: 50 mg Ibuprofen (Ibuprofen 600 Mg Tablet) 600 mg PO Q8H PRN PRN Reason: back pain Last Admin: 01/19/25 17:06 Dose: 600 mg Lactic Acid (Ammonium Lactate 12 % Lotion 226 Gm Bottle) 1 appl TOPICAL DAILY [facility]; Protocol Last Admin: 01/20/25 10:04 Dose: 1 appl Lamotrigine (Lamotrigine 25 Mg Tablet) 25 mg PO DAILY [facility] Last Admin: 01/20/25 10:05 Dose: 25 mg Loratadine (Loratadine 10 Mg Tablet) 10 mg PO DAILY [facility] Last Admin: 01/20/25 10:06 Dose: 10 mg Losartan Potassium (Losartan Potassium 50 Mg Tablet) 50 mg PO DAILY [facility]; Protocol Last Admin: 01/20/25 10:05 Dose: 50 mg Magnesium Hydroxide (Milk Of Magnesia 30 Ml Oral.Susp) 30 ml PO DAILY PRN PRN Reason: Constipation Last Admin: 01/17/25 14:06 Dose: 30 ml Melatonin (Melatonin 3 Mg Tablet) 3 mg PO BEDTIME PRN PRN Reason: Sleep Last Admin: 01/18/25 02:40 Dose: 3 mg Metformin HCl (Metformin Hcl Er 500 Mg Tab.Er.24h) 500 mg PO BID [facility] Last Admin: 01/20/25 21:55 Dose: 500 mg Metoprolol Succinate (Metoprolol Succinate Er 50 Mg Tab.Er.24h) 50 mg PO DAILY [facility]; Protocol Last Admin: 01/20/25 10:05 Dose: 50 mg Multivitamins/Vitamin C (Multivitamin Tablet) 1 tab PO DAILY [facility] Last Admin: 01/20/25 10:05 Dose: 1 tab Naltrexone HCl (Naltrexone Hcl 50 Mg Tablet) 50 mg PO DAILY [facility] Last Admin: 01/20/25 10:05 Dose: 50 mg Nicotine (Nicotine 21 Mg Patch.Td24) 21 mg TRANSDERMA DAILY [facility] Last Admin: 01/20/25 10:23 Dose: 21 mg Nicotine Polacrilex (Nicotine Polacrilex 2 Mg Gum) 4 mg BUCCAL Q2H PRN PRN Reason: Nicotine Cravings Last Admin: 01/19/25 13:55 Dose: 4 mg Pt Own (Tirzepatide [Mounjaro] 2.5 Mg/0. 5 Ml Pen Injector) 2.5 mg SUBCUT Q7D [facility] Last Admin: 01/15/25 08:51 Dose: 2.5 mg Omeprazole (Omeprazole 20 Mg Capsule.Dr) 20 mg PO DAILY@0630 [facility] Last Admin: 01/20/25 06:45 Dose: 20 mg Ondansetron HCl (Ondansetron Odt 4 Mg Tab.Rapdis) 4 mg TRANSLINGU Q8H PRN PRN Reason: Nausea and Vomiting Last Admin: 01/14/25 10:54 Dose: 4 mg Polyethylene Glycol (Polyethylene Glycol 3350 17 Gm Powd.Pack) 17 gm PO DAILY [facility] Last Admin: 01/20/25 10:04 Dose: 17 gm Prazosin HCl (Prazosin Hcl 1 Mg Capsule) 4 mg PO BEDTIME [facility]; Protocol Last Admin: 01/20/25 21:54 Dose: 4 mg Thiamine HCl (Thiamine Hcl 100 Mg Tablet) 100 mg PO DAILY [facility] Last Admin: 01/20/25 10:05 Dose: 100 mg Tiotropium Hotchkiss (Tiotropium [place]iss 2.5 Mcg 1 Puff/2.5 Mcg Mist.Inhal) 2 puff INHALE RDAILY [facility] Last Admin: 01/20/25 10:04 Dose: 2 puff Trazodone HCl (Trazodone Hcl 50 Mg Tablet) 100 mg PO BEDTIME [facility] Last Admin: 01/20/25 21:54 Dose: 100 mg Allergies Allergies Allergy/AdvReac Type Severity Reaction Status Date / Time lisinopril Allergy Unknown Cough Verified 01/06/25 15:02 clonidine AdvReac Unknown Unknown Verified 01/06/25 15:02 Assessment & Plan Assessment & Plan (1) Sleep related hypoxia: Status: Acute Code(s): G47.34 - Idiopathic sleep related nonobstructive alveolar hypoventilation (2) Schizoaffective disorder: Status: Acute Code(s): F25.9 - Schizoaffective disorder, unspecified (3) Depression with suicidal ideation: Status: Acute Code(s): F32.A - Depression, unspecified; R45.851 - Suicidal ideations (4) Alcohol use disorder: Status: Acute Code(s): F10.90 - Alcohol use, unspecified, uncomplicated (5) Cannabis use disorder: Status: Acute Code(s): F12.90 - Cannabis use, unspecified, uncomplicated Plan 34-year-old male with past medical history listed below presented to the emergency department with suicidal ideation. Admitted for inpatient stabilization. Schizoaffective disorder/suicidal ideation/substance use disorder/alcohol use disorder Treatment per psychiatric team Type 2 diabetes Continue metformin b.i.d. Continue Mounjaro Recent A1c 5.8 done in August. Hypertension Continue amlodipine and Cozaar, Toprol Blood pressure stable ESHA on CPAP/Sleep-related hypoxia Patient utilizing CPAP at HS Will need CPAP use during nap time or supplemental oxygen to maintain sats greater than 90% Thank you for allowing me to participate in the care of this patient. Will follow with you, please notify medical provider with any changes in condition or concerns. 01/09/25: Decrease Gabapentin to 600 mg tid SARS/RSV/Flu EMycin Opth tid to both eyes 01/10/25: Emycin change to moxifloxacin Watch for the color of cornea to change- if this is observed, pt may need culture. Watch for excessive purulent discharge-if this is observed, pt may need culture 01/11 Patient says he is overall doing okay but has ongoing AH that Haldol does not seem to help much. 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 Patient said that Haldol used to work well but then it seemed to stop working. Discussed other options in the past that he thinks that Clozaril helped before but for some reason he was taken off the and does not know why. Patient agreed to discuss further with primary team provider on returned this Monday -no change in cornea; no discharge. 01/13:Pt appears to have a clearer thought process with Haldol increase. Over the weekend he shares with team that Haldol does not stop voices for him, however, by history, Clozapine does. Discussed initiating Clozapine and he agrees. Flexeril/Ibuprofen ordered over the weekend as well. Pt reports sleep and appetite are intact. He is attending milieu activities. Conjunctivitis is present, resolving, pt reports less eye irritation. Denies SI,HI, +AH, -VH, -SIBS. Continues to believe his home is haunted and possessed and does not want to return there. Expressed fear and concern should he need to return. Tearful at times. Plan: Begin Haldol tapering Clozapine 25 mg HS 01/14:Pt reports vomiting x 1 this a.m. Later in the a.m. reports buring upon urination and urgency- Urine culture ordered along with pyridium. Clozaril increased to 50 mg HS. Pt in agreement. Pt requests we change Haldol as he reports voices, CAH- I am stupid, they will kill me, they will never let me alone, I will be poor, homeless Discussed Olanzapine- No, that does not work . Discussed chlorpromazine-he does not recall but asks to trial today. Checks changes to 5 minutes. Pt in group this afternoon. BP improved from 175/100 this a.m. to 155/61 this afternoon. Plan: DC Haldol Chlorpromazine trial Urine Culture Pyridium prn 01/15:Reports improvement in AH. Much better than yesterday however still present. Slept through the night with JEAN and prns needed. Attending groups Reports penile pain, frequency, burning, Urine culture negative. Requested hospitalist consult for further guidance. Pt did not try pyridium however will do so this afternoon. Plan: Hospitalist Consult Continue Clozapine titration. 01/16/25: Visible, pleasant and cooperative. Report CAH a little bit but he tries to ignore them. Report back pain an 8/10. No other complaint. Denies SI/SIB/VH. Very pleasant and cooperative. He says he needs to lose weight. Per nursing, slept for 6 hours, compliant with meds. No side effects, using Bipap at night. U/A negative. 01/17/25:Pt reports feeling better. Denies SI,HI. Mild AH, Denies VH Continues to report sedation-discussed decreasing Gabapentin to 300 mg tid which he asks to do. Will decrease Chlorpromazine to 50 mg tid from QID Will increase Clozapine to 100 mg HS Pyridium re-started as pt continues to report burning, penile pain- cleared by medicine on 01/15 for UTI and further STD infection. Encouraged increase in fluids/water to help manage sx. Attending groups. States he believes he is on the appropriate treatment track and is talking about going home soon. 01/18/25: Met with patient in group room B where he is resided. Patient was sleeping but arousable. Denies anxiety or depression. Denies suicidal thoughts or voices today not now . Reports pain 7/10 in the groin area is much better today . Nursing reports that oxygen dropped this morning to 84%. Encourage elevated of head of the bed which I observed patient slept with bed elevated using pillows and blankets. Patient needs medical bed but not sure what we can do to accommodate. In addition, patient is overweight which affect is breathing and obstruction from sleep. Nursing to continue to monitor for VSs, especially O2 Sat level. 01/19/25: Patient report AH is so so not disclose what AH is about. Report to RN bad voices in the morning, took PRN with good effects. Report that they are trying to find me a respite . He asks about Vitamin B12 shot and asked if he needs to use oxygen at night for sleep upon discharge. Report sore throat and request Cepacol. Patient was medication compliant but refused Miralax. No change in behavior. Voices are still there but he is able to distract himself. Sleep and appetite are good. Denies SI/SIB/HI/VH 01/20/25: Visible, pleasant, cooperative.Denies pain. Denies voices but report it comes and goes and when experienced, it is usually CAH to kill myself but report safe and not listen to the voices. Agree with Clozaril increased up to 125mg at HS. Artificial tear drop ordered for dry eye. Denies SI/SIB/HI. Regarding medications: -will hold Haldol decanoate for now so that patient can discuss this with Anna on her return -patient says Clozaril used to help and it was stopped for some unknown reason; he does not know if there was a medication side effect or not Patient educated on: diagnosis, medication risk/benefits and therapeutic strategies Informed Consent: understands and further education needed Reason for continued inpatient stay Substantial Risk for: med/psych decompensation Time Spent With Patient Time: Total time managing care of this patient today ____ minutes.
[2025-01-21 07:56] LABS: Neut%MD 52.0 %; WBCANC 5.6 X10*3/uL
[2025-01-21 08:07] LABS: Creatinine Clr Calc Pharmacy 186.5; Estimated Glomerular Filt Rate > 60
[2025-01-21 08:39] VITALS: BP 148/79; PULSE 112; RESP 18; TEMP 36.5; O2SAT 94
[2025-01-21] MEDS: Tiotropium Bromide 2.5 mcg 1 PUFF/2.5 MCG MIST.INHAL 2 PUFF INHALE (09:04)
[2025-01-21 09:06] VITALS: BP 148/79
[2025-01-21] MEDS: Ammonium Lactate 12 % Lotion 226 GM BOTTLE 1 APPL TOPICAL (09:06)
[2025-01-21 09:11] VITALS: BP 148/79; PULSE 112
[2025-01-21] MEDS: Metoprolol Succinate ER 50 MG TAB.ER.24H PO (09:11)
[2025-01-21] MEDS: Nicotine 21 MG PATCH.TD24 TRANSDERMA (09:17)
[2025-01-21] MEDS: Artificial Tears 15 ML DROPS 2 DROP EYE-BOTH (11:56)
--- NOTE | 2025-01-21 12:32 | P.PNPSI_ITS ---
Subjective Subjective Date of Service: 01/21/25 Reason For Visit: schizoaffective disorder Subjective Notes: Conditional Voluntary Healthcare Proxy: No Guardianship: No Medical Problems Affecting Mental Status: No Interim History: Preparing for discharge. Tolerating Clozapine titration. Chlorpromazine decreased today. BP still running high- Hospitalist team increased Cozaar. Today, denies SI, HI, no voices!, denies VH. [facility] visited however, pt as he does not know her did not talk much he reports. Reports feeling good, does feel a.m. sedation when awakening- decrease in chlorpromazine may help this. Medication Compliance: Yes Side effects from medications: Yes (a.m. sedation) Attending Groups: Intermittent Review of Systems Acute medical concerns: No Medical Review of Systems: unchanged Review of Systems Review of Systems good, good Mental Status Exam Mental Status Exam Patient Appearance: Appropriate Patient Orientation: Person, Place, Time and Situation Level of Consciousness: Alert Patient Behavior: Talkative Mood Description: Calm and Appropriate Affect Description: Calm and Appropriate Ability to Follow Directions: Good Speech Pattern: Spontaneous Speech Memory Description: Episodic Impaired Hallucinations: None Delusions: Not Present Thought Process: Goal Oriented Thought Content: positive for Goal Oriented Judgement: Fair Diagnostics Vital Signs (24Hr): Vital Signs - 24 hr 01/20/25 16:13 01/20/25 20:00 01/20/25 21:54 Temperature 98.7 F Pulse Rate 95 90 Respiratory Rate 18 Blood Pressure 141/80 H 150/84 H 150/84 H Pulse Oximetry 93 99 Oxygen Delivery Method Room Air Room Air 01/21/25 08:39 01/21/25 09:06 01/21/25 09:11 Temperature 97.7 F Pulse Rate 112 H Respiratory Rate 18 Blood Pressure 148/79 H 148/79 H 148/79 H Pulse Oximetry 94 Oxygen Delivery Method Room Air 01/21/25 09:11 Temperature Pulse Rate 112 H Respiratory Rate Blood Pressure 148/79 H Pulse Oximetry Oxygen Delivery Method BMI result Body Mass Index 56.3 Labs 01/06/25 15:22 01/21/25 07:33 Labs: Laboratory Results - last 48 hr 01/21/25 07:33 Absolute Neuts (auto) 2.9 Creatinine 0.89 Estim Creat Clear Calc 186.5 Estimated GFR > 60 Imaging Radiology Impressions: ITS Impressions Chest X-Ray 01/08/25 14:24 IMPRESSION: Low lung volumes without definite active disease. Electronically signed by: Foster Mckinnon MD 01/08/2025 02:37 PM [facility] [place] Medications Current Medications Acetaminophen (Acetaminophen 325 Mg Tablet) 650 mg PO Q6H PRN PRN Reason: Headache/Pain, Scale 1-10 Last Admin: 01/21/25 01:18 Dose: 650 mg Al Hydroxide/Mg Hydroxide (Magnesium Hydrox/Alum Hydrox 30 Ml Oral.Susp) 30 ml PO Q6H PRN PRN Reason: Heartburn/Nausea Albuterol Sulfate (Albuterol Sulfate 90 Mcg 8 Gm Inhaler) 1 puff INHALE QID PRN PRN Reason: Wheezing Amlodipine Besylate (Amlodipine Besylate 10 Mg Tablet) 10 mg PO DAILY [facility]; Protocol Last Admin: 01/21/25 09:06 Dose: 10 mg Artificial Tears (Artificial Tears 15 Ml Drops) 2 drop EYE-BOTH Q4H PRN PRN Reason: Dry Eyes Last Admin: 01/21/25 11:56 Dose: 2 drop Benzocaine (Throat Lozenge, Medicated Lozenge) 1 lozenge MUCOUS MEM Q2H PRN PRN Reason: Sore Throat Last Admin: 01/20/25 13:49 Dose: 1 lozenge Benztropine Mesylate (Benztropine Mesylate 1 Mg Tablet) 1 mg PO BID [facility] Last Admin: 01/21/25 09:07 Dose: 1 mg Chlorpromazine HCl (Chlorpromazine Hcl 100 Mg Tablet) 100 mg PO BID PRN PRN Reason: agitation, psychosis Last Admin: 01/20/25 13:28 Dose: 100 mg Chlorpromazine HCl (Chlorpromazine Hcl 25 Mg Tablet) 25 mg PO TID [facility] Clozapine 100 mg/ Clozapine 25 (mg) 125 mg PO BEDTIME [facility] Last Admin: 01/20/25 21:55 Dose: 125 mg Cyclobenzaprine HCl (Cyclobenzaprine Hcl 10 Mg Tablet) 10 mg PO TID [facility] Last Admin: 01/21/25 09:08 Dose: 10 mg Docusate Sodium (Docusate Sodium 100 Mg Capsule) 100 mg PO BID PRN PRN Reason: Constipation Last Admin: 01/17/25 14:06 Dose: 100 mg Duloxetine HCl (Duloxetine Hcl 30 Mg Capsule.Dr) 30 mg PO DAILY [facility] Last Admin: 01/21/25 09:09 Dose: 30 mg Folic Acid (Folic Acid 1 Mg Tablet) 1 mg PO DAILY [facility] Last Admin: 01/21/25 09:09 Dose: 1 mg Gabapentin (Gabapentin 300 Mg Capsule) 300 mg PO TID [facility] Last Admin: 01/21/25 09:10 Dose: 300 mg Guaifenesin/Dextromethorphan (Guaifenesin Dm 100/10/5 Ml 5 Ml Syrup) 5 ml PO Q6H PRN PRN Reason: Cough Last Admin: 01/20/25 13:49 Dose: 5 ml Hydroxyzine HCl (Hydroxyzine Hcl 25 Mg Tablet) 50 mg PO Q6H PRN PRN Reason: mild anxiety Last Admin: 01/20/25 10:31 Dose: 50 mg Ibuprofen (Ibuprofen 600 Mg Tablet) 600 mg PO Q8H PRN PRN Reason: back pain Last Admin: 01/19/25 17:06 Dose: 600 mg Lactic Acid (Ammonium Lactate 12 % Lotion 226 Gm Bottle) 1 appl TOPICAL DAILY [facility]; Protocol Last Admin: 01/21/25 09:06 Dose: 1 appl Lamotrigine (Lamotrigine 25 Mg Tablet) 25 mg PO DAILY [facility] Last Admin: 01/21/25 09:10 Dose: 25 mg Loratadine (Loratadine 10 Mg Tablet) 10 mg PO DAILY [facility] Last Admin: 01/21/25 09:10 Dose: 10 mg Losartan Potassium (Losartan Potassium 50 Mg Tablet) 100 mg PO DAILY [facility]; Protocol Magnesium Hydroxide (Milk Of Magnesia 30 Ml Oral.Susp) 30 ml PO DAILY PRN PRN Reason: Constipation Last Admin: 01/17/25 14:06 Dose: 30 ml Melatonin (Melatonin 3 Mg Tablet) 3 mg PO BEDTIME PRN PRN Reason: Sleep Last Admin: 01/21/25 01:19 Dose: 3 mg Metformin HCl (Metformin Hcl Er 500 Mg Tab.Er.24h) 500 mg PO BID [facility] Last Admin: 01/21/25 09:11 Dose: 500 mg Metoprolol Succinate (Metoprolol Succinate Er 50 Mg Tab.Er.24h) 50 mg PO DAILY [facility]; Protocol Last Admin: 01/21/25 09:11 Dose: 50 mg Multivitamins/Vitamin C (Multivitamin Tablet) 1 tab PO DAILY [facility] Last Admin: 01/21/25 09:12 Dose: 1 tab Naltrexone HCl (Naltrexone Hcl 50 Mg Tablet) 50 mg PO DAILY [facility] Last Admin: 01/21/25 09:12 Dose: 50 mg Nicotine (Nicotine 21 Mg Patch.Td24) 21 mg TRANSDERMA DAILY [facility] Last Admin: 01/21/25 09:17 Dose: 21 mg Nicotine Polacrilex (Nicotine Polacrilex 2 Mg Gum) 4 mg BUCCAL Q2H PRN PRN Reason: Nicotine Cravings Last Admin: 01/21/25 09:17 Dose: 4 mg Pt Own (Tirzepatide [Mounjaro] 2.5 Mg/0. 5 Ml Pen Injector) 2.5 mg SUBCUT Q7D [facility] Last Admin: 01/15/25 08:51 Dose: 2.5 mg Omeprazole (Omeprazole 20 Mg Capsule.Dr) 20 mg PO DAILY@0630 [facility] Last Admin: 01/21/25 07:51 Dose: 20 mg Ondansetron HCl (Ondansetron Odt 4 Mg Tab.Rapdis) 4 mg TRANSLINGU Q8H PRN PRN Reason: Nausea and Vomiting Last Admin: 01/14/25 10:54 Dose: 4 mg Polyethylene Glycol (Polyethylene Glycol 3350 17 Gm Powd.Pack) 17 gm PO DAILY [facility] Last Admin: 01/21/25 09:18 Dose: 17 gm Prazosin HCl (Prazosin Hcl 1 Mg Capsule) 4 mg PO BEDTIME [facility]; Protocol Last Admin: 01/20/25 21:54 Dose: 4 mg Thiamine HCl (Thiamine Hcl 100 Mg Tablet) 100 mg PO DAILY [facility] Last Admin: 01/21/25 09:13 Dose: 100 mg Tiotropium [place] (Tiotropium [place] 2.5 Mcg 1 Puff/2.5 Mcg Mist.Inhal) 2 puff INHALE RDAILY [facility] Last Admin: 01/21/25 09:04 Dose: 2 puff Trazodone HCl (Trazodone Hcl 50 Mg Tablet) 100 mg PO BEDTIME [facility] Last Admin: 01/20/25 21:54 Dose: 100 mg Allergies Allergies Allergy/AdvReac Type Severity Reaction Status Date / Time lisinopril Allergy Unknown Cough Verified 01/06/25 15:02 clonidine AdvReac Unknown Unknown Verified 01/06/25 15:02 Assessment & Plan Assessment & Plan (1) Sleep related hypoxia: Status: Acute Code(s): G47.34 - Idiopathic sleep related nonobstructive alveolar hypoventilation (2) Schizoaffective disorder: Status: Acute Code(s): F25.9 - Schizoaffective disorder, unspecified (3) Depression with suicidal ideation: Status: Acute Code(s): F32.A - Depression, unspecified; R45.851 - Suicidal ideations (4) Alcohol use disorder: Status: Acute Code(s): F10.90 - Alcohol use, unspecified, uncomplicated (5) Cannabis use disorder: Status: Acute Code(s): F12.90 - Cannabis use, unspecified, uncomplicated Plan 34-year-old male with past medical history listed below presented to the emergency department with suicidal ideation. Admitted for inpatient stabilization. Schizoaffective disorder/suicidal ideation/substance use disorder/alcohol use disorder Treatment per psychiatric team Type 2 diabetes Continue metformin b.i.d. Continue Mounjaro Recent A1c 5.8 done in August. Hypertension Continue amlodipine and Cozaar, Toprol Blood pressure stable ESHA on CPAP/Sleep-related hypoxia Patient utilizing CPAP at Will need CPAP use during nap time or supplemental oxygen to maintain sats greater than 90% Thank you for allowing me to participate in the care of this patient. Will follow with you, please notify medical provider with any changes in condition or concerns. 01/09/25: Decrease Gabapentin to 600 mg tid SARS/RSV/Flu EMycin Opth tid to both eyes 01/10/25: Emycin change to moxifloxacin Watch for the color of cornea to change- if this is observed, pt may need culture. Watch for excessive purulent discharge-if this is observed, pt may need culture 01/11 Patient says he is overall doing okay but has ongoing AH that Haldol does not seem to help much. Patient and technical report writer looked in saw that he is due for Haldol decanoate this coming Monday. Patient said that Haldol used to work well but then it seemed to stop working. Discussed other options in the past that he thinks that Clozaril helped before but for some reason he was taken off the and does not know why. Patient agreed to discuss further with primary team provider on returned this Monday -no change in cornea; no discharge. 01/13:Pt appears to have a clearer thought process with Haldol increase. Over the weekend he shares with team that Haldol does not stop voices for him, however, by history, Clozapine does. Discussed initiating Clozapine and he agrees. Flexeril/Ibuprofen ordered over the weekend as well. Pt reports sleep and appetite are intact. He is attending milieu activities. Conjunctivitis is present, resolving, pt reports less eye irritation. Denies SI,HI, +AH, -VH, -SIBS. Continues to believe his home is haunted and possessed and does not want to return there. Expressed fear and concern should he need to return. Tearful at times. Plan: Begin Haldol tapering Clozapine 25 mg HS 01/14:Pt reports vomiting x 1 this a.m. Later in the a.m. reports buring upon urination and urgency- Urine culture ordered along with pyridium. Clozaril increased to 50 mg HS. Pt in agreement. Pt requests we change Haldol as he reports voices, CAH- I am stupid, they will kill me, they will never let me alone, I will be poor, homeless Discussed Olanzapine- No, that does not work . Discussed chlorpromazine-he does not recall but asks to trial today. Checks changes to 5 minutes. Pt in group this afternoon. BP improved from 175/100 this a.m. to 155/61 this afternoon. Plan: DC Haldol Chlorpromazine trial Urine Culture Pyridium prn 01/15:Reports improvement in AH. Much better than yesterday however still present. Slept through the night with JEAN and prns needed. Attending groups Reports penile pain, frequency, burning, Urine culture negative. Requested hospitalist consult for further guidance. Pt did not try pyridium however will do so this afternoon. Plan: Hospitalist Consult Continue Clozapine titration. 01/16/25: Visible, pleasant and cooperative. Report CAH a little bit but he tries to ignore them. Report back pain an 8/10. No other complaint. Denies SI/SIB/VH. Very pleasant and cooperative. He says he needs to lose weight. Per nursing, slept for 6 hours, compliant with meds. No side effects, using Bipap at night. U/A negative. 01/17/25:Pt reports feeling better. Denies SI,HI. Mild AH, Denies VH Continues to report sedation-discussed decreasing Gabapentin to 300 mg tid which he asks to do. Will decrease Chlorpromazine to 50 mg tid from QID Will increase Clozapine to 100 mg HS Pyridium re-started as pt continues to report burning, penile pain- cleared by medicine on 01/15 for UTI and further STD infection. Encouraged increase in fluids/water to help manage sx. Attending groups. States he believes he is on the appropriate treatment track and is talking about going home soon. 01/18/25: Met with patient in group room B where he is resided. Patient was sleeping but arousable. Denies anxiety or depression. Denies suicidal thoughts or voices today not now . Reports pain /10 in the groin area is much better today . Nursing reports that oxygen dropped this morning to 84%. Encourage elevated of head of the bed which I observed patient slept with bed elevated using pillows and blankets. Patient needs medical bed but not sure what we can do to accommodate. In addition, patient is overweight which affect is breathing and obstruction from sleep. Nursing to continue to monitor for VSs, especially O2 Sat level. 01/19/25: Patient report AH is so so not disclose what AH is about. Report to RN bad voices in the morning, took PRN with good effects. Report that they are trying to find me a respite . He asks about Vitamin B12 shot and asked if he needs to use oxygen at night for sleep upon discharge. Report sore throat and request Cepacol. Patient was medication compliant but refused Miralax. No change in behavior. Voices are still there but he is able to distract himself. Sleep and appetite are good. Denies SI/SIB/HI/VH 01/20/25: Visible, pleasant, cooperative.Denies pain. Denies voices but report it comes and goes and when experienced, it is usually CAH to kill myself but report safe and not listen to the voices. Agree with Clozaril increased up to 125mg at HS. Artificial tear drop ordered for dry eye. Denies SI/SIB/HI. 01/21/25: Preparing for discharge. Tolerating Clozapine titration. Chlorpromazine decreased today. BP still running high- Hospitalist team increased Cozaar. Today, denies SI, HI, no voices!, denies VH. [facility] visited however, pt as he does not know her did not talk much he reports. Reports feeling good, does feel a.m. sedation when awakening- decrease in chlorpromazine may help this. Plan: Decrease Chlorpromazine to 25 mg tid. Regarding medications: -will hold Haldol decanoate for now so that patient can discuss this with Woody Morrison on her return -patient says Clozaril used to help and it was stopped for some unknown reason; he does not know if there was a medication side effect or not Reason for continued inpatient stay Substantial Risk for: rapid decompensation Time Spent With Patient Time: Total time managing care of this patient today ____ minutes.
[2025-01-21 20:00] VITALS: BP 141/81; PULSE 98; RESP 20; TEMP 36.6; O2SAT 98
[2025-01-22] MEDS: guaiFENesin DM 100/10/5 ML 5 ML SYRUP PO (06:03)
[2025-01-22 08:00] VITALS: BP 125/77; PULSE 106; RESP 18; TEMP 36.8; O2SAT 95
[2025-01-22] MEDS: Tiotropium Bromide 2.5 mcg 1 PUFF/2.5 MCG MIST.INHAL 2 PUFF INHALE (08:22)
[2025-01-22] MEDS: Metoprolol Succinate ER 50 MG TAB.ER.24H PO (08:24)
[2025-01-22] MEDS: Ammonium Lactate 12 % Lotion 226 GM BOTTLE 1 APPL TOPICAL (08:30)
[2025-01-22] MEDS: Artificial Tears 15 ML DROPS 2 DROP EYE-BOTH (08:33)
[2025-01-22] MEDS: Nicotine 21 MG PATCH.TD24 TRANSDERMA (08:34)
--- NOTE | 2025-01-22 10:37 | P.PNPSI_ITS ---
Subjective Subjective Date of Service: 01/22/25 Reason For Visit: schizoaffective disorder Subjective Notes: Conditional Voluntary Healthcare Proxy: No Guardianship: No Medical Problems Affecting Mental Status: No Interim History: Denies AH,VH, SI,HI. Reporting constipation and abdominal pain. KUB affirms constipation. Pt consulted by hospitalist team, laxative regime re-started, prilosec increased. Chlorpromazine changed to prn. Pt/team met with his [facility] team today to discuss needs for discharge. Recommendations for application for residential care were given. VNA will meet with pt twice per day to ensure medication support. He is very pleased with this plan. Discharge planned for 01/24. Medication Compliance: Yes Side effects from medications: No Attending Groups: Intermittent Review of Systems as noted Review of Systems Review of Systems constipation GERD sx Mental Status Exam Mental Status Exam Patient Appearance: Appropriate Patient Orientation: Person, Place, Time and Situation Level of Consciousness: Alert Patient Behavior: Talkative Mood Description: Calm and Appropriate Affect Description: Calm and Appropriate Ability to Follow Directions: Good Speech Pattern: Spontaneous Speech Memory Description: Episodic Impaired Hallucinations: None Delusions: Not Present Thought Process: Goal Oriented Thought Content: positive for Goal Oriented Judgement: Fair Diagnostics Vital Signs (24Hr): Vital Signs - 24 hr 01/21/25 20:00 01/22/25 08:00 Temperature 97.9 F 98.3 F Pulse Rate 98 106 H Respiratory Rate 20 18 Blood Pressure 141/81 H 125/77 Pulse Oximetry 98 95 Oxygen Delivery Method Room Air Room Air BMI result Body Mass Index 56.3 Labs 01/22/25 17:15 01/22/25 17:15 Labs: Laboratory Results - last 48 hr 01/21/25 07:33 Absolute Neuts (auto) 2.9 Creatinine 0.89 Estim Creat Clear Calc 186.5 Estimated GFR > 60 Imaging Radiology Impressions: ITS Impressions Chest X-Ray 01/08/25 14:24 IMPRESSION: Low lung volumes without definite active disease. Electronically signed by: Foster Mckinnon MD 01/08/2025 02:37 PM [facility] Medications Medications Current Medications Acetaminophen (Acetaminophen 325 Mg Tablet) 650 mg PO Q6H PRN PRN Reason: Headache/Pain, Scale 1-10 Last Admin: 01/21/25 01:18 Dose: 650 mg Al Hydroxide/Mg Hydroxide (Magnesium Hydrox/Alum Hydrox 30 Ml Oral.Susp) 30 ml PO Q6H PRN PRN Reason: Heartburn/Nausea Albuterol Sulfate (Albuterol Sulfate 90 Mcg 8 Gm Inhaler) 1 puff INHALE QID PRN PRN Reason: Wheezing Amlodipine Besylate (Amlodipine Besylate 10 Mg Tablet) 10 mg PO DAILY [facility]; Protocol Last Admin: 01/22/25 08:24 Dose: 10 mg Artificial Tears (Artificial Tears 15 Ml Drops) 2 drop EYE-BOTH Q4H PRN PRN Reason: Dry Eyes Last Admin: 01/22/25 08:33 Dose: 2 drop Benzocaine (Throat Lozenge, Medicated Lozenge) 1 lozenge MUCOUS MEM Q2H PRN PRN Reason: Sore Throat Last Admin: 01/20/25 13:49 Dose: 1 lozenge Benztropine Mesylate (Benztropine Mesylate 1 Mg Tablet) 1 mg PO BID [facility] Last Admin: 01/22/25 08:25 Dose: 1 mg Chlorpromazine HCl (Chlorpromazine Hcl 100 Mg Tablet) 100 mg PO BID PRN PRN Reason: agitation, psychosis Last Admin: 01/20/25 13:28 Dose: 100 mg Chlorpromazine HCl (Chlorpromazine Hcl 25 Mg Tablet) 25 mg PO TID [facility] Last Admin: 01/22/25 08:24 Dose: 25 mg Clozapine 100 mg/ Clozapine 25 (mg) 125 mg PO BEDTIME [facility] Last Admin: 01/21/25 20:30 Dose: 125 mg Cyclobenzaprine HCl (Cyclobenzaprine Hcl 10 Mg Tablet) 10 mg PO TID [facility] Last Admin: 01/22/25 08:24 Dose: 10 mg Docusate Sodium (Docusate Sodium 100 Mg Capsule) 100 mg PO BID PRN PRN Reason: Constipation Last Admin: 01/22/25 05:56 Dose: 100 mg Duloxetine HCl (Duloxetine Hcl 30 Mg Capsule.Dr) 30 mg PO DAILY [facility] Last Admin: 01/22/25 08:24 Dose: 30 mg Folic Acid (Folic Acid 1 Mg Tablet) 1 mg PO DAILY [facility] Last Admin: 01/22/25 08:24 Dose: 1 mg Gabapentin (Gabapentin 300 Mg Capsule) 300 mg PO TID [facility] Last Admin: 01/22/25 08:24 Dose: 300 mg Guaifenesin/Dextromethorphan (Guaifenesin Dm 100/10/5 Ml 5 Ml Syrup) 5 ml PO Q6H PRN PRN Reason: Cough Last Admin: 01/22/25 06:03 Dose: 5 ml Hydroxyzine HCl (Hydroxyzine Hcl 25 Mg Tablet) 50 mg PO Q6H PRN PRN Reason: mild anxiety Last Admin: 01/22/25 00:23 Dose: 50 mg Ibuprofen (Ibuprofen 600 Mg Tablet) 600 mg PO Q8H PRN PRN Reason: back pain Last Admin: 01/22/25 00:23 Dose: 600 mg Lactic Acid (Ammonium Lactate 12 % Lotion 226 Gm Bottle) 1 appl TOPICAL DAILY [facility]; Protocol Last Admin: 01/22/25 08:30 Dose: 1 appl Lamotrigine (Lamotrigine 25 Mg Tablet) 25 mg PO DAILY [facility] Last Admin: 01/22/25 08:25 Dose: 25 mg Loratadine (Loratadine 10 Mg Tablet) 10 mg PO DAILY [facility] Last Admin: 01/22/25 08:24 Dose: 10 mg Losartan Potassium (Losartan Potassium 50 Mg Tablet) 100 mg PO DAILY [facility]; Protocol Last Admin: 01/22/25 08:25 Dose: 100 mg Magnesium Hydroxide (Milk Of Magnesia 30 Ml Oral.Susp) 30 ml PO DAILY PRN PRN Reason: Constipation Last Admin: 01/17/25 14:06 Dose: 30 ml Melatonin (Melatonin 3 Mg Tablet) 3 mg PO BEDTIME PRN PRN Reason: Sleep Last Admin: 01/22/25 00:24 Dose: 3 mg Metformin HCl (Metformin Hcl Er 500 Mg Tab.Er.24h) 500 mg PO BID [facility] Last Admin: 01/22/25 08:25 Dose: 500 mg Metoprolol Succinate (Metoprolol Succinate Er 50 Mg Tab.Er.24h) 50 mg PO DAILY [facility]; Protocol Last Admin: 01/22/25 08:24 Dose: 50 mg Multivitamins/Vitamin C (Multivitamin Tablet) 1 tab PO DAILY [facility] Last Admin: 01/22/25 08:24 Dose: 1 tab Naltrexone HCl (Naltrexone Hcl 50 Mg Tablet) 50 mg PO DAILY [facility] Last Admin: 01/22/25 08:24 Dose: 50 mg Nicotine (Nicotine 21 Mg Patch.Td24) 21 mg TRANSDERMA DAILY [facility] Last Admin: 01/22/25 08:34 Dose: 21 mg Nicotine Polacrilex (Nicotine Polacrilex 2 Mg Gum) 4 mg BUCCAL Q2H PRN PRN Reason: Nicotine Cravings Last Admin: 01/21/25 09:17 Dose: 4 mg Pt Own (Tirzepatide [Mounjaro] 2.5 Mg/0. 5 Ml Pen Injector) 2.5 mg SUBCUT Q7D [facility] Last Admin: 01/21/25 17:56 Dose: 2.5 mg Omeprazole (Omeprazole 20 Mg Capsule.Dr) 20 mg PO DAILY@0630 [facility] Last Admin: 01/22/25 06:33 Dose: 20 mg Ondansetron HCl (Ondansetron Odt 4 Mg Tab.Rapdis) 4 mg TRANSLINGU Q8H PRN PRN Reason: Nausea and Vomiting Last Admin: 01/22/25 05:39 Dose: 4 mg Polyethylene Glycol (Polyethylene Glycol 3350 17 Gm Powd.Pack) 17 gm PO DAILY [facility] Last Admin: 01/22/25 08:25 Dose: 17 gm Prazosin HCl (Prazosin Hcl 1 Mg Capsule) 4 mg PO BEDTIME [facility]; Protocol Last Admin: 01/21/25 20:29 Dose: 4 mg Thiamine HCl (Thiamine Hcl 100 Mg Tablet) 100 mg PO DAILY [facility] Last Admin: 01/22/25 08:25 Dose: 100 mg Tiotropium [place] (Tiotropium [place] 2.5 Mcg 1 Puff/2.5 Mcg Mist.Inhal) 2 puff INHALE RDAILY [facility] Last Admin: 01/22/25 08:22 Dose: 2 puff Trazodone HCl (Trazodone Hcl 50 Mg Tablet) 100 mg PO BEDTIME [facility] Last Admin: 01/21/25 20:30 Dose: 100 mg Allergies Allergies Allergy/AdvReac Type Severity Reaction Status Date / Time lisinopril Allergy Unknown Cough Verified 01/06/25 15:02 clonidine AdvReac Unknown Unknown Verified 01/06/25 15:02 Assessment & Plan Assessment & Plan (1) Sleep related hypoxia: Status: Acute Code(s): G47.34 - Idiopathic sleep related nonobstructive alveolar hypoventilation (2) Schizoaffective disorder: Status: Acute Code(s): F25.9 - Schizoaffective disorder, unspecified (3) Depression with suicidal ideation: Status: Acute Code(s): F32.A - Depression, unspecified; R45.851 - Suicidal ideations (4) Alcohol use disorder: Status: Acute Code(s): F10.90 - Alcohol use, unspecified, uncomplicated (5) Cannabis use disorder: Status: Acute Code(s): F12.90 - Cannabis use, unspecified, uncomplicated Plan 34-year-old male with past medical history listed below presented to the emergency department with suicidal ideation. Admitted for inpatient stabilization. Schizoaffective disorder/suicidal ideation/substance use disorder/alcohol use disorder Treatment per psychiatric team Type 2 diabetes Continue metformin b.i.d. Continue Mounjaro Recent A1c 5.8 done in August. Hypertension Continue amlodipine and Cozaar, Toprol Blood pressure stable ESHA on CPAP/Sleep-related hypoxia Patient utilizing CPAP at HS Will need CPAP use during nap time or supplemental oxygen to maintain sats greater than 90% Thank you for allowing me to participate in the care of this patient. Will follow with you, please notify medical provider with any changes in condition or concerns. 01/09/25: Decrease Gabapentin to 600 mg tid SARS/RSV/Flu EMycin Opth tid to both eyes 01/10/25: Emycin change to moxifloxacin Watch for the color of cornea to change- if this is observed, pt may need culture. Watch for excessive purulent discharge-if this is observed, pt may need culture 01/11 Patient says he is overall doing okay but has ongoing AH that Haldol does not seem to help much. Patient and pattern chart writer looked in saw that he is due for Haldol decanoate this coming Monday. Patient said that Haldol used to work well but then it seemed to stop working. Discussed other options in the past that he thinks that Clozaril helped before but for some reason he was taken off the and does not know why. Patient agreed to discuss further with primary team provider on returned this Monday -no change in cornea; no discharge. 01/13:Pt appears to have a clearer thought process with Haldol increase. Over the weekend he shares with team that Haldol does not stop voices for him, however, by history, Clozapine does. Discussed initiating Clozapine and he agrees. Flexeril/Ibuprofen ordered over the weekend as well. Pt reports sleep and appetite are intact. He is attending milieu activities. Conjunctivitis is present, resolving, pt reports less eye irritation. Denies SI,HI, +AH, -VH, -SIBS. Continues to believe his home is haunted and possessed and does not want to return there. Expressed fear and concern should he need to return. Tearful at times. Plan: Begin Haldol tapering Clozapine 25 mg HS 01/14:Pt reports vomiting x 1 this a.m. Later in the a.m. reports buring upon urination and urgency- Urine culture ordered along with pyridium. Clozaril increased to 50 mg HS. Pt in agreement. Pt requests we change Haldol as he reports voices, CAH- I am stupid, they will kill me, they will never let me alone, I will be poor, homeless Discussed Olanzapine- No, that does not work . Discussed chlorpromazine-he does not recall but asks to trial today. Checks changes to 5 minutes. Pt in group this afternoon. BP improved from 175/100 this a.m. to 155/61 this afternoon. Plan: DC Haldol Chlorpromazine trial Urine Culture Pyridium prn 01/15:Reports improvement in AH. Much better than yesterday however still present. Slept through the night with JEAN and prns needed. Attending groups Reports penile pain, frequency, burning, Urine culture negative. Requested hospitalist consult for further guidance. Pt did not try pyridium however will do so this afternoon. Plan: Hospitalist Consult Continue Clozapine titration. 01/16/25: Visible, pleasant and cooperative. Report CAH a little bit but he tries to ignore them. Report back pain an 8/10. No other complaint. Denies SI/SIB/VH. Very pleasant and cooperative. He says he needs to lose weight. Per nursing, slept for 6 hours, compliant with meds. No side effects, using Bipap at night. U/A negative. 01/17/25:Pt reports feeling better. Denies SI,HI. Mild AH, Denies VH Continues to report sedation-discussed decreasing Gabapentin to 300 mg tid which he asks to do. Will decrease Chlorpromazine to 50 mg tid from QID Will increase Clozapine to 100 mg HS Pyridium re-started as pt continues to report burning, penile pain- cleared by medicine on 01/15 for UTI and further STD infection. Encouraged increase in fluids/water to help manage sx. Attending groups. States he believes he is on the appropriate treatment track and is talking about going home soon. 01/18/25: Met with patient in group room B where he is resided. Patient was sleeping but arousable. Denies anxiety or depression. Denies suicidal thoughts or voices today not now . Reports pain 7/10 in the groin area is much better today . Nursing reports that oxygen dropped this morning to 84%. Encourage elevated of head of the bed which I observed patient slept with bed elevated using pillows and blankets. Patient needs medical bed but not sure what we can do to accommodate. In addition, patient is overweight which affect is breathing and obstruction from sleep. Nursing to continue to monitor for VSs, especially O2 Sat level. 01/19/25: Patient report AH is so so not disclose what AH is about. Report to RN bad voices in the morning, took PRN with good effects. Report that they are trying to find me a respite . He asks about Vitamin B12 shot and asked if he needs to use oxygen at night for sleep upon discharge. Report sore throat and request Cepacol. Patient was medication compliant but refused Miralax. No change in behavior. Voices are still there but he is able to distract himself. Sleep and appetite are good. Denies SI/SIB/HI/VH 01/20/25: Visible, pleasant, cooperative.Denies pain. Denies voices but report it comes and goes and when experienced, it is usually CAH to kill myself but report safe and not listen to the voices. Agree with Clozaril increased up to 125mg at HS. Artificial tear drop ordered for dry eye. Denies SI/SIB/HI. 01/21/25: Preparing for discharge. Tolerating Clozapine titration. Chlorpromazine decreased today. BP still running high- Hospitalist team increased Cozaar. Today, denies SI, HI, no voices!, denies VH. Lily of [facility] visited however, pt as he does not know her did not talk much he reports. Reports feeling good, does feel a.m. sedation when awakening- decrease in chlorpromazine may help this. Plan: Decrease Chlorpromazine to 25 mg tid. 01/22/25: Denies AH,VH, SI,HI. Reporting constipation and abdominal pain. KUB affirms constipation. Pt consulted by hospitalist team, laxative regime re- started, prilosec increased. Chlorpromazine changed to prn. Pt/team met with his [facility] team today to discuss needs for discharge. Recommendations for application for residential care were given. VNA will meet with pt twice per day to ensure medication support. He is very pleased with this plan. Discharge planned for 01/24. Regarding medications: -will hold Haldol decanoate for now so that patient can discuss this with Woody Morrison on her return -patient says Clozaril used to help and it was stopped for some unknown reason; he does not know if there was a medication side effect or not Reason for continued inpatient stay Substantial Risk for: rapid decompensation and med/psych decompensation Time Spent With Patient Time: Total time managing care of this patient today ____ minutes.
--- NOTE | 2025-01-22 15:11 | P.PNIM_ITS ---
Subjective Subjective Date of Service: 01/22/25 Interval History: Patient is seen for reported abdominal discomfort. Patient had a KUB done with no findings to suggest a bowel obstruction, had moderate amount of stool load noted. Abdomen very obese difficult to examine, however he has no right upper quadrant pain. Appears to have localized pain to the mid epigastric region. Also left side of abdomen. Patient reports a significant amount of reflux. No nausea or vomiting noted. Denies any blood in his stool. Appetite within normal limits. Denies chest pain or shortness of breath. Review of Systems Patient has no acute medical complaints at this time All other systems are reviewed and are negative Physical Exam 2 Exam: Exam: Alert and oriented x4 calm and cooperative. Answers questions. Neuro: CN II-X11 intact, no deficits, visual acuity intact EYES: PERRLA, EOM intact ENT: Hearing intact, MMM Cardiac: S1 S2 RRR, No ectopy Pulmonary: Lungs clear to auscultation, diminished due to body habitus, No increased WOB. Abdominal: BS active in all 4 quadrants, no guarding or tenderness to right upper quadrant. Obese abdomen. Mild tenderness to epigastric region and left side of abdomen. MSK: Strength 5/5 upper and lower extremities : Deferred Extremities: No edema in lower extremities Psych: Alert and cooperative Skin: Warm and dry, Intact Vital Signs: Vital Signs: Last Vital Signs Temp 98.3 F 01/22/25 08:00 Pulse 106 H 01/22/25 08:00 Resp 18 01/22/25 08:00 BP 125/77 01/22/25 08:00 Pulse Ox 95 01/22/25 08:00 O2 Del Method Room Air 01/22/25 08:00 BMI result Body Mass Index 56.3 Objective Data Active Medications Acetaminophen (Acetaminophen 325 Mg Tablet) 650 mg PO Q6H PRN PRN Reason: Headache/Pain, Scale 1-10 Last Admin: 01/21/25 01:18 Dose: 650 mg Documented By: KRISTINE Al Hydroxide/Mg Hydroxide (Magnesium Hydrox/Alum Hydrox 30 Ml Oral.Susp) 30 ml PO Q6H PRN PRN Reason: Heartburn/Nausea Albuterol Sulfate (Albuterol Sulfate 90 Mcg 8 Gm Inhaler) 1 puff INHALE QID PRN PRN Reason: Wheezing Amlodipine Besylate (Amlodipine Besylate 10 Mg Tablet) 10 mg PO DAILY [facility]; Protocol Last Admin: 01/22/25 08:24 Dose: 10 mg Documented By: PATRICK Artificial Tears (Artificial Tears 15 Ml Drops) 2 drop EYE-BOTH Q4H PRN PRN Reason: Dry Eyes Last Admin: 01/22/25 08:33 Dose: 2 drop Documented By: PATRICK Benzocaine (Throat Lozenge, Medicated Lozenge) 1 lozenge MUCOUS MEM Q2H PRN PRN Reason: Sore Throat Last Admin: 01/20/25 13:49 Dose: 1 lozenge Documented By: GARTH Benztropine Mesylate (Benztropine Mesylate 1 Mg Tablet) 1 mg PO BID [facility] Last Admin: 01/22/25 08:25 Dose: 1 mg Documented By: PATRICK Chlorpromazine HCl (Chlorpromazine Hcl 25 Mg Tablet) 25 mg PO Q6H PRN PRN Reason: anxiety, agitation Clozapine 100 mg/ Clozapine 25 (mg) 125 mg PO BEDTIME [facility] Last Admin: 01/21/25 20:30 Dose: 125 mg Documented By: CAROL Cyclobenzaprine HCl (Cyclobenzaprine Hcl 10 Mg Tablet) 10 mg PO TID [facility] Last Admin: 01/22/25 08:24 Dose: 10 mg Documented By: PATRICK Docusate Sodium (Docusate Sodium 100 Mg Capsule) 100 mg PO BID PRN PRN Reason: Constipation Last Admin: 01/22/25 05:56 Dose: 100 mg Documented By: CAROL Duloxetine HCl (Duloxetine Hcl 30 Mg Capsule.) 30 mg PO DAILY [facility] Last Admin: 01/22/25 08:24 Dose: 30 mg Documented By: PATRICK Folic Acid (Folic Acid 1 Mg Tablet) 1 mg PO DAILY [facility] Last Admin: 01/22/25 08:24 Dose: 1 mg Documented By: PATRICK Gabapentin (Gabapentin 300 Mg Capsule) 300 mg PO TID [facility] Last Admin: 01/22/25 08:24 Dose: 300 mg Documented By: PATRICK Guaifenesin/Dextromethorphan (Guaifenesin Dm 100/10/5 Ml 5 Ml Syrup) 5 ml PO Q6H PRN PRN Reason: Cough Last Admin: 01/22/25 06:03 Dose: 5 ml Documented By: CAROL Hydroxyzine HCl (Hydroxyzine Hcl 25 Mg Tablet) 50 mg PO Q6H PRN PRN Reason: mild anxiety Last Admin: 01/22/25 12:42 Dose: 50 mg Documented By: KRISTINE Ibuprofen (Ibuprofen 600 Mg Tablet) 600 mg PO Q8H PRN PRN Reason: back pain Last Admin: 01/22/25 00:23 Dose: 600 mg Documented By: CAROL Lactic Acid (Ammonium Lactate 12 % Lotion 226 Gm Bottle) 1 appl TOPICAL DAILY [facility]; Protocol Last Admin: 01/22/25 08:30 Dose: 1 appl Documented By: PATRICK Lamotrigine (Lamotrigine 25 Mg Tablet) 25 mg PO DAILY [facility] Last Admin: 01/22/25 08:25 Dose: 25 mg Documented By: PATRICK Loratadine (Loratadine 10 Mg Tablet) 10 mg PO DAILY [facility] Last Admin: 01/22/25 08:24 Dose: 10 mg Documented By: PATRICK Losartan Potassium (Losartan Potassium 50 Mg Tablet) 100 mg PO DAILY [facility]; Protocol Last Admin: 01/22/25 08:25 Dose: 100 mg Documented By: PATRICK Magnesium Hydroxide (Milk Of Magnesia 30 Ml Oral.Susp) 30 ml PO DAILY PRN PRN Reason: Constipation Last Admin: 01/17/25 14:06 Dose: 30 ml Documented By: ONEIL Melatonin (Melatonin 3 Mg Tablet) 3 mg PO BEDTIME PRN PRN Reason: Sleep Last Admin: 01/22/25 00:24 Dose: 3 mg Documented By: CAROL Metformin HCl (Metformin Hcl Er 500 Mg Tab.Er.24h) 500 mg PO BID [facility] Last Admin: 01/22/25 08:25 Dose: 500 mg Documented By: PATRICK Metoprolol Succinate (Metoprolol Succinate Er 50 Mg Tab.Er.24h) 50 mg PO DAILY [facility]; Protocol Last Admin: 01/22/25 08:24 Dose: 50 mg Documented By: PATRICK Multivitamins/Vitamin C (Multivitamin Tablet) 1 tab PO DAILY [facility] Last Admin: 01/22/25 08:24 Dose: 1 tab Documented By: PATRICK Naltrexone HCl (Naltrexone Hcl 50 Mg Tablet) 50 mg PO DAILY [facility] Last Admin: 01/22/25 08:24 Dose: 50 mg Documented By: PATRICK Nicotine (Nicotine 21 Mg Patch.Td24) 21 mg TRANSDERMA DAILY [facility] Last Admin: 01/22/25 08:34 Dose: 21 mg Documented By: PATRICK Nicotine Polacrilex (Nicotine Polacrilex 2 Mg Gum) 4 mg BUCCAL Q2H PRN PRN Reason: Nicotine Cravings Last Admin: 01/21/25 09:17 Dose: 4 mg Documented By: AILCIA Pt Own (Tirzepatide [Mounjaro] 2.5 Mg/0. 5 Ml Pen Injector) 2.5 mg SUBCUT Q7D [facility] Last Admin: 01/21/25 17:56 Dose: 2.5 mg Documented By: ALICIA Omeprazole (Omeprazole 20 Mg Capsule.Dr) 20 mg PO DAILY@0630 [facility] Last Admin: 01/22/25 06:33 Dose: 20 mg Documented By: CAROL Ondansetron HCl (Ondansetron Odt 4 Mg Tab.Rapdis) 4 mg TRANSLINGU Q8H PRN PRN Reason: Nausea and Vomiting Last Admin: 01/22/25 05:39 Dose: 4 mg Documented By: CAROL Polyethylene Glycol (Polyethylene Glycol 3350 17 Gm Powd.Pack) 17 gm PO DAILY [facility] Last Admin: 01/22/25 08:25 Dose: 17 gm Documented By: PATRICK Prazosin HCl (Prazosin Hcl 1 Mg Capsule) 4 mg PO BEDTIME [facility]; Protocol Last Admin: 01/21/25 20:29 Dose: 4 mg Documented By: CAROL Thiamine HCl (Thiamine Hcl 100 Mg Tablet) 100 mg PO DAILY [facility] Last Admin: 01/22/25 08:25 Dose: 100 mg Documented By: PATRICK Tiotropium [place] (Tiotropium [place] 2.5 Mcg 1 Puff/2.5 Mcg Mist.Inhal) 2 puff INHALE RDAILY [facility] Last Admin: 01/22/25 08:22 Dose: 2 puff Documented By: PATRICK Trazodone HCl (Trazodone Hcl 50 Mg Tablet) 100 mg PO BEDTIME [facility] Last Admin: 01/21/25 20:30 Dose: 100 mg Documented By: CAROL Labs 01/06/25 15:22 01/21/25 07:33 Assessment and Plan (1) Constipation: Status: Acute Plan 34-year-old male with past medical history listed below presented to the emergency department with suicidal ideation. Admitted for inpatient stabilization. Schizoaffective disorder/suicidal ideation/substance use disorder/alcohol use disorder Treatment per psychiatric team Type 2 diabetes Continue metformin b.i.d. Continue Mounjaro Recent A1c 5.8 done in August. Hypertension Continue amlodipine and Cozaar, Toprol Blood pressure stable ESHA on CPAP/Sleep-related hypoxia Patient utilizing CPAP at HS Will need CPAP use during nap time or supplemental oxygen to maintain sats greater than 90% GERD We will increase omeprazole to 20 mg b.i.d. Check CMP and CBC to rule out infection Constipation Colace b.i.d. and senna at HS MiraLax daily Encourage water and fiber intake. Thank you for allowing me to participate in the care of this patient. Will follow with you, please notify medical provider with any changes in condition or concerns. Quality Stroke Does the patient have a stroke diagnosis?: No VTE Prior VTE?: No VTE Risk Level:: Medical - low VTE Device Contraindication: Treatment Not Indicated VTE Drug Contraindication: Treatment Not Indicated
[2025-01-22 17:30] LABS: MANUAL DIFF FLAG NO
[2025-01-22 17:31] LABS: Hematocrit 43.3 % (42.0-52.0); Hemoglobin 13.2 g/dl (14.0-18.0); Imm Gran Abs Auto 0.05 X10*3/uL (0.00-0.03); Imm Gran Pct Auto 0.7 % (0.0-0.4); Lymphocytes Absolute Auto 1.5 X10*3/uL (1.2-4.9); Mean Corpuscular HGB Conc 30.5 g/dl (31.0-36.0); Mean Corpuscular Hemoglobin 26.1 pg (27.0-33.0); Mean Corpuscular Volume 85.6 fL (80.0-98.0); NRBC Abs Auto 0.000 X10*3/uL (0.0-0.012); NRBC Pct Auto 0.0 /100WBC (0.0-0.2); Platelet Count 245 X10*3/uL (160-400); Red Blood Count 5.06 X10*6/uL (4.60-5.80); White Blood Count 6.8 X10*3/uL (4.8-10.8)
[2025-01-22 17:45] LABS: Anion Gap 11 (12-20); Blood Urea Nitrogen 13 mg/dL (9-16); Calcium 9.7 mg/dL (8.4-10.2); Carbon Dioxide 34 mmol/L (22-29); Chloride 102 mmol/L (96-108); Creatinine Clr Calc Pharmacy 169.4; Estimated Glomerular Filt Rate > 60; Potassium 4.4 mmol/L (3.3-5.1); Sodium 143 mmol/L (135-145)
[2025-01-22 19:49] VITALS: BP 121/56; PULSE 105; RESP 18; TEMP 2.8; TEMP 37.1; O2SAT 95
[2025-01-23] MEDS: Throat Lozenge, Medicated LOZENGE 1 LOZENGE MUCOUS MEM (04:39)
[2025-01-23 07:00] VITALS: BMI 59.7
[2025-01-23 08:00] VITALS: BP 121/59; PULSE 83; RESP 16; TEMP 37.1; O2SAT 100
[2025-01-23] MEDS: Metoprolol Succinate ER 50 MG TAB.ER.24H PO (08:39)
[2025-01-23] MEDS: Tiotropium Bromide 2.5 mcg 1 PUFF/2.5 MCG MIST.INHAL 2 PUFF INHALE (08:56)
[2025-01-23] MEDS: Nicotine 21 MG PATCH.TD24 TRANSDERMA (08:56)
[2025-01-23] MEDS: Ammonium Lactate 12 % Lotion 226 GM BOTTLE 1 APPL TOPICAL (08:56)
--- NOTE | 2025-01-23 09:09 | P.PNPSI_ITS ---
Subjective Subjective Date of Service: 01/23/25 Reason For Visit: schizoaffective disorder Subjective Notes: Conditional Voluntary Healthcare Proxy: No Guardianship: No Medical Problems Affecting Mental Status: No Interim History: Denies SI,HI,AH,VH. Denies physical sx of illness I am excited to go home Review of medications, plan of care, need for weekly labs for clozapine Smiling, social with team and peers today. Medication Compliance: Yes Side effects from medications: No Attending Groups: Intermittent Review of Systems Acute medical concerns: No Medical Review of Systems: unchanged Review of Systems Review of Systems Denies Mental Status Exam Mental Status Exam Patient Appearance: Appropriate Patient Orientation: Person, Place, Time and Situation Level of Consciousness: Alert Patient Behavior: Talkative Mood Description: Calm and Appropriate Affect Description: Calm and Appropriate Ability to Follow Directions: Good Speech Pattern: Spontaneous Speech Memory Description: Episodic Impaired Hallucinations: None Delusions: Not Present Thought Process: Goal Oriented Thought Content: positive for Goal Oriented Judgement: Fair Diagnostics Vital Signs (24Hr): Vital Signs - 24 hr 01/22/25 19:49 01/23/25 08:00 Temperature 37.1 F L 98.8 F Pulse Rate 105 H 83 Respiratory Rate 18 16 Blood Pressure 121/56 L 121/59 L Pulse Oximetry 95 100 Oxygen Delivery Method Room Air Room Air BMI result Body Mass Index 56.3 Labs 01/22/25 17:15 01/22/25 17:15 Labs: Laboratory Results - last 48 hr 01/22/25 17:15 WBC 6.8 RBC 5.06 Hgb 13.2 L Hct 43.3 MCV 85.6 MCH 26.1 L MCHC 30.5 L RDW 13.4 Plt Count 245 MPV 9.7 Immature Gran % (Auto) 0.7 H Neut % (Auto) 61.0 Lymph % (Auto) 22.2 [place] % (Auto) 12.5 H Eos % (Auto) 3.2 Baso % (Auto) 0.4 Lymph # (Auto) 1.5 [place] # (Auto) 0.9 Eos # (Auto) 0.2 Baso # (Auto) 0.0 Abs Immat Gran (auto) 0.05 H Absolute Neuts (auto) 4.2 Absolute Nucleated RBC 0.000 Nucleated RBC % (auto) 0.0 Sodium 143 Potassium 4.4 Chloride 102 Carbon Dioxide 34 H Anion Gap 11 L BUN 13 Creatinine 0.98 Estim Creat Clear Calc 169.4 Estimated GFR > 60 Random Glucose 114 Calcium 9.7 Imaging Radiology Impressions: ITS Impressions Chest X-Ray 01/08/25 14:24 IMPRESSION: Low lung volumes without definite active disease. Electronically signed by: Foster Mckinnon MD 01/08/2025 02:37 PM EST RP KUB X-Ray 01/22/25 13:59 IMPRESSION: Limited examination. No obvious findings to suggest bowel obstruction. Moderate stool load at the expected location of the colonic loops. Electronically signed by: Carmen Chowdhury MD 01/22/2025 02:17 PM EST RP Medications Medications Current Medications Acetaminophen (Acetaminophen 325 Mg Tablet) 650 mg PO Q6H PRN PRN Reason: Headache/Pain, Scale 1-10 Last Admin: 01/23/25 08:54 Dose: 650 mg Al Hydroxide/Mg Hydroxide (Magnesium Hydrox/Alum Hydrox 30 Ml Oral.Susp) 30 ml PO Q6H PRN PRN Reason: Heartburn/Nausea Albuterol Sulfate (Albuterol Sulfate 90 Mcg 8 Gm Inhaler) 1 puff INHALE QID PRN PRN Reason: Wheezing Amlodipine Besylate (Amlodipine Besylate 10 Mg Tablet) 10 mg PO DAILY [facility]; Protocol Last Admin: 01/23/25 08:40 Dose: 10 mg Artificial Tears (Artificial Tears 15 Ml Drops) 2 drop EYE-BOTH Q4H PRN PRN Reason: Dry Eyes Last Admin: 01/22/25 08:33 Dose: 2 drop Benzocaine (Throat Lozenge, Medicated Lozenge) 1 lozenge MUCOUS MEM Q2H PRN PRN Reason: Sore Throat Last Admin: 01/23/25 04:39 Dose: 1 lozenge Benztropine Mesylate (Benztropine Mesylate 1 Mg Tablet) 1 mg PO BID [facility] Last Admin: 01/23/25 08:40 Dose: 1 mg Chlorpromazine HCl (Chlorpromazine Hcl 25 Mg Tablet) 25 mg PO Q6H PRN PRN Reason: anxiety, agitation Clozapine 100 mg/ Clozapine 25 (mg) 125 mg PO BEDTIME [facility] Last Admin: 01/22/25 20:06 Dose: 125 mg Cyclobenzaprine HCl (Cyclobenzaprine Hcl 10 Mg Tablet) 10 mg PO TID [facility] Last Admin: 01/23/25 08:40 Dose: 10 mg Docusate Sodium (Docusate Sodium 100 Mg Capsule) 100 mg PO BID [facility] Last Admin: 01/23/25 08:45 Dose: 100 mg Duloxetine HCl (Duloxetine Hcl 30 Mg Capsule.Dr) 30 mg PO DAILY [facility] Last Admin: 01/23/25 08:40 Dose: 30 mg Folic Acid (Folic Acid 1 Mg Tablet) 1 mg PO DAILY [facility] Last Admin: 01/23/25 08:39 Dose: 1 mg Gabapentin (Gabapentin 300 Mg Capsule) 300 mg PO TID [facility] Last Admin: 01/23/25 08:40 Dose: 300 mg Guaifenesin/Dextromethorphan (Guaifenesin Dm 100/10/5 Ml 5 Ml Syrup) 5 ml PO Q6H PRN PRN Reason: Cough Last Admin: 01/22/25 06:03 Dose: 5 ml Hydroxyzine HCl (Hydroxyzine Hcl 25 Mg Tablet) 50 mg PO Q6H PRN PRN Reason: mild anxiety Last Admin: 01/23/25 04:39 Dose: 50 mg Ibuprofen (Ibuprofen 600 Mg Tablet) 600 mg PO Q8H PRN PRN Reason: back pain Last Admin: 01/22/25 20:15 Dose: 600 mg Lactic Acid (Ammonium Lactate 12 % Lotion 226 Gm Bottle) 1 appl TOPICAL DAILY [facility]; Protocol Last Admin: 01/23/25 08:56 Dose: 1 appl Lamotrigine (Lamotrigine 25 Mg Tablet) 25 mg PO DAILY [facility] Last Admin: 01/23/25 08:39 Dose: 25 mg Loratadine (Loratadine 10 Mg Tablet) 10 mg PO DAILY [facility] Last Admin: 01/23/25 08:41 Dose: 10 mg Losartan Potassium (Losartan Potassium 50 Mg Tablet) 100 mg PO DAILY [facility]; Protocol Last Admin: 01/23/25 08:40 Dose: 100 mg Magnesium Hydroxide (Milk Of Magnesia 30 Ml Oral.Susp) 30 ml PO DAILY PRN PRN Reason: Constipation Last Admin: 01/17/25 14:06 Dose: 30 ml Melatonin (Melatonin 3 Mg Tablet) 3 mg PO BEDTIME PRN PRN Reason: Sleep Last Admin: 01/23/25 01:51 Dose: 3 mg Metformin HCl (Metformin Hcl Er 500 Mg Tab.Er.24h) 500 mg PO BID [facility] Last Admin: 01/23/25 08:39 Dose: 500 mg Metoprolol Succinate (Metoprolol Succinate Er 50 Mg Tab.Er.24h) 50 mg PO DAILY [facility]; Protocol Last Admin: 01/23/25 08:39 Dose: 50 mg Multivitamins/Vitamin C (Multivitamin Tablet) 1 tab PO DAILY [facility] Last Admin: 01/23/25 08:40 Dose: 1 tab Naltrexone HCl (Naltrexone Hcl 50 Mg Tablet) 50 mg PO DAILY [facility] Last Admin: 01/23/25 08:40 Dose: 50 mg Nicotine (Nicotine 21 Mg Patch.Td24) 21 mg TRANSDERMA DAILY [facility] Last Admin: 01/23/25 08:56 Dose: 21 mg Nicotine Polacrilex (Nicotine Polacrilex 2 Mg Gum) 4 mg BUCCAL Q2H PRN PRN Reason: Nicotine Cravings Last Admin: 01/21/25 09:17 Dose: 4 mg Pt Own (Tirzepatide [Mounjaro] 2.5 Mg/0. 5 Ml Pen Injector) 2.5 mg SUBCUT Q7D [facility] Last Admin: 01/21/25 17:56 Dose: 2.5 mg Omeprazole (Omeprazole 20 Mg Capsule.Dr) 20 mg PO BID@0630,1630 [facility] Last Admin: 01/23/25 06:27 Dose: 20 mg Ondansetron HCl (Ondansetron Odt 4 Mg Tab.Rapdis) 4 mg TRANSLINGU Q8H PRN PRN Reason: Nausea and Vomiting Last Admin: 01/23/25 04:39 Dose: 4 mg Polyethylene Glycol (Polyethylene Glycol 3350 17 Gm Powd.Pack) 17 gm PO DAILY [facility] Last Admin: 01/23/25 08:56 Dose: 17 gm Prazosin HCl (Prazosin Hcl 1 Mg Capsule) 4 mg PO BEDTIME [facility]; Protocol Last Admin: 01/22/25 20:06 Dose: 4 mg Senna (Sennosides 8.6 Mg Tablet) 17.2 mg PO BEDTIME [facility] Last Admin: 01/22/25 20:06 Dose: 17.2 mg Thiamine HCl (Thiamine Hcl 100 Mg Tablet) 100 mg PO DAILY [facility] Last Admin: 01/23/25 08:40 Dose: 100 mg Tiotropium [place] (Tiotropium [place] 2.5 Mcg 1 Puff/2.5 Mcg Mist.Inhal) 2 puff INHALE RDAILY [facility] Last Admin: 01/23/25 08:56 Dose: 2 puff Trazodone HCl (Trazodone Hcl 50 Mg Tablet) 100 mg PO BEDTIME [facility] Last Admin: 01/22/25 20:06 Dose: 100 mg Allergies Allergies Allergy/AdvReac Type Severity Reaction Status Date / Time lisinopril Allergy Unknown Cough Verified 01/06/25 15:02 clonidine AdvReac Unknown Unknown Verified 01/06/25 15:02 Assessment & Plan Assessment & Plan (1) Sleep related hypoxia: Status: Acute Code(s): G47.34 - Idiopathic sleep related nonobstructive alveolar hypoventilation (2) Schizoaffective disorder: Status: Acute Code(s): F25.9 - Schizoaffective disorder, unspecified (3) Depression with suicidal ideation: Status: Acute Code(s): F32.A - Depression, unspecified; R45.851 - Suicidal ideations (4) Alcohol use disorder: Status: Acute Code(s): F10.90 - Alcohol use, unspecified, uncomplicated (5) Cannabis use disorder: Status: Acute Code(s): F12.90 - Cannabis use, unspecified, uncomplicated Plan 34-year-old male with past medical history listed below presented to the emergency department with suicidal ideation. Admitted for inpatient stabilization. Schizoaffective disorder/suicidal ideation/substance use disorder/alcohol use disorder Treatment per psychiatric team Type 2 diabetes Continue metformin b.i.d. Continue Mounjaro Recent A1c 5.8 done in August. Hypertension Continue amlodipine and Cozaar, Toprol Blood pressure stable ESHA on CPAP/Sleep-related hypoxia Patient utilizing CPAP at Will need CPAP use during nap time or supplemental oxygen to maintain sats greater than 90% Thank you for allowing me to participate in the care of this patient. Will follow with you, please notify medical provider with any changes in condition or concerns. 01/09/25: Decrease Gabapentin to 600 mg tid SARS/RSV/Flu EMycin Opth tid to both eyes 01/10/25: Emycin change to moxifloxacin Watch for the color of cornea to change- if this is observed, pt may need culture. Watch for excessive purulent discharge-if this is observed, pt may need culture 01/11 Patient says he is overall doing okay but has ongoing AH that Haldol does not seem to help much. 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 Patient said that Haldol used to work well but then it seemed to stop working. Discussed other options in the past that he thinks that Clozaril helped before but for some reason he was taken off the and does not know why. Patient agreed to discuss further with primary team provider on returned this Monday -no change in cornea; no discharge. 01/13:Pt appears to have a clearer thought process with Haldol increase. Over the weekend he shares with team that Haldol does not stop voices for him, however, by history, Clozapine does. Discussed initiating Clozapine and he agrees. Flexeril/Ibuprofen ordered over the weekend as well. Pt reports sleep and appetite are intact. He is attending milieu activities. Conjunctivitis is present, resolving, pt reports less eye irritation. Denies SI,HI, +AH, -VH, -SIBS. Continues to believe his home is haunted and possessed and does not want to return there. Expressed fear and concern should he need to return. Tearful at times. Plan: Begin Haldol tapering Clozapine 25 mg HS 01/14:Pt reports vomiting x 1 this a.m. Later in the a.m. reports buring upon urination and urgency- Urine culture ordered along with pyridium. Clozaril increased to 50 mg HS. Pt in agreement. Pt requests we change Haldol as he reports voices, CAH- I am stupid, they will kill me, they will never let me alone, I will be poor, homeless Discussed Olanzapine- No, that does not work . Discussed chlorpromazine-he does not recall but asks to trial today. Checks changes to 5 minutes. Pt in group this afternoon. BP improved from 175/100 this a.m. to 155/61 this afternoon. Plan: DC Haldol Chlorpromazine trial Urine Culture Pyridium prn 01/15:Reports improvement in AH. Much better than yesterday however still present. Slept through the night with JEAN and prns needed. Attending groups Reports penile pain, frequency, burning, Urine culture negative. Requested hospitalist consult for further guidance. Pt did not try pyridium however will do so this afternoon. Plan: Hospitalist Consult Continue Clozapine titration. 01/16/25: Visible, pleasant and cooperative. Report CAH a little bit but he tries to ignore them. Report back pain an 8/10. No other complaint. Denies SI/SIB/VH. Very pleasant and cooperative. He says he needs to lose weight. Per nursing, slept for 6 hours, compliant with meds. No side effects, using Bipap at night. U/A negative. 01/17/25:Pt reports feeling better. Denies SI,HI. Mild AH, Denies VH Continues to report sedation-discussed decreasing Gabapentin to 300 mg tid which he asks to do. Will decrease Chlorpromazine to 50 mg tid from QID Will increase Clozapine to 100 mg HS Pyridium re-started as pt continues to report burning, penile pain- cleared by medicine on 01/15 for UTI and further STD infection. Encouraged increase in fluids/water to help manage sx. Attending groups. States he believes he is on the appropriate treatment track and is talking about going home soon. 01/18/25: Met with patient in group room B where he is resided. Patient was sleeping but arousable. Denies anxiety or depression. Denies suicidal thoughts or voices today not now . Reports pain 7/10 in the groin area is much better today . Nursing reports that oxygen dropped this morning to 84%. Encourage elevated of head of the bed which I observed patient slept with bed elevated using pillows and blankets. Patient needs medical bed but not sure what we can do to accommodate. In addition, patient is overweight which affect is breathing and obstruction from sleep. Nursing to continue to monitor for VSs, especially O2 Sat level. 01/19/25: Patient report AH is so so not disclose what AH is about. Report to RN bad voices in the morning, took PRN with good effects. Report that they are trying to find me a respite . He asks about Vitamin B12 shot and asked if he needs to use oxygen at night for sleep upon discharge. Report sore throat and request Cepacol. Patient was medication compliant but refused Miralax. No change in behavior. Voices are still there but he is able to distract himself. Sleep and appetite are good. Denies SI/SIB/HI/VH 01/20/25: Visible, pleasant, cooperative.Denies pain. Denies voices but report it comes and goes and when experienced, it is usually CAH to kill myself but report safe and not listen to the voices. Agree with Clozaril increased up to 125mg at HS. Artificial tear drop ordered for dry eye. Denies SI/SIB/HI. 01/21/25: Preparing for discharge. Tolerating Clozapine titration. Chlorpromazine decreased today. BP still running high- Hospitalist team increased Cozaar. Today, denies SI, HI, no voices!, denies VH. Lily of [facility] visited however, pt as he does not know her did not talk much he reports. Reports feeling good, does feel a.m. sedation when awakening- decrease in chlorpromazine may help this. Plan: Decrease Chlorpromazine to 25 mg tid. 01/22/25: Denies AH,VH, SI,HI. Reporting constipation and abdominal pain. KUB affirms constipation. Pt consulted by hospitalist team, laxative regime re- started, prilosec increased. Chlorpromazine changed to prn. Pt/team met with his [facility] team today to discuss needs for discharge. Recommendations for application for residential care were given. [facility] will meet with pt twice per day to ensure medication support. He is very pleased with this plan. Discharge planned for 01/24. 01/23/25: Discharge 01/24. Regarding medications: -will hold Haldol decanoate for now so that patient can discuss this with Woody Morrison on her return -patient says Clozaril used to help and it was stopped for some unknown reason; he does not know if there was a medication side effect or not Reason for continued inpatient stay Substantial Risk for: stable for discharge Time Spent With Patient Time: Total time managing care of this patient today ____ minutes.
[2025-01-23 10:55] LABS: Alanine Aminotransferase 92 U/L (0-40); Albumin Level 4.3 g/dL (3.5-5.0); Alkaline Phosphatase 102 U/L (39-117); Aspartate Amino Transferase 56 U/L (5-37); Total Protein 7.1 g/dL (6.5-8.0)
[2025-01-23 20:00] VITALS: BP 166/89; PULSE 100; RESP 18; TEMP 36.7; O2SAT 95
[2025-01-24 08:00] VITALS: BP 132/80; PULSE 100; RESP 16; TEMP 36.9; O2SAT 91
[2025-01-24] MEDS: Metoprolol Succinate ER 50 MG TAB.ER.24H PO (09:09)
[2025-01-24] MEDS: Artificial Tears 15 ML DROPS 2 DROP EYE-BOTH (10:03)
[2025-01-24] MEDS: Tiotropium Bromide 2.5 mcg 1 PUFF/2.5 MCG MIST.INHAL 2 PUFF INHALE (10:03)
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
== END 2025-01-24 11:13 | disposition home or self-care (01) | DRG 885 ==
LOC: HO.ED 17:35 → HO.PM5 01-07 11:49
PROVIDERS: Emergency Medicine; Emergency Medicine Emergency Medical Services; Nurse Practitioner; Nurse Practitioner Family; Admitting Provider Clinical Nurse Specialist Psychiatric/Mental Health, Adult; Emergency Provider Emergency Medicine; PCP Internal Medicine; Visit Provider Clinical Nurse Specialist Psychiatric/Mental Health, Adult
DX: F25.1 Schizoaffective disorder, depressive type (principal); R45.851 Suicidal ideations; A54.01 Gonococcal cystitis and urethritis, unspecified; F17.210 Nicotine dependence, cigarettes, uncomplicated; Z71.6 Tobacco abuse counseling; Z23 Encounter for immunization; F12.90 Cannabis use, unspecified, uncomplicated; G47.33 Obstructive sleep apnea (adult) (pediatric); H10.9 Unspecified conjunctivitis; F10.10 Alcohol abuse, uncomplicated; I10 Essential (primary) hypertension; Z20.822 Contact with and (suspected) exposure to COVID-19; Z79.84 Long term (current) use of oral hypoglycemic drugs; Z79.899 Other long term (current) drug therapy
CPT/HCPCS: 36415; 70220; 71046; 74018; 80048; 80053; 80061; 80076; 80143; 80179; 80307; 81001; 82565; 82607; 82746; 82947; 83036; 83735; 84439; 84443; 85025; 85048; 86780; 87086; 87389; 87491; 87591; 87637; 90656; 93005; 99285; J0696; J2003

== ENCOUNTER → 2025-01-06 15:04 | Outpatient (BNV) | payer OTHER, SELFPAY | PROVIDERS: Admitting Provider Clinical Nurse Specialist Psychiatric/Mental Health, Adult; Emergency Provider Emergency Medicine; PCP Internal Medicine; Visit Provider Internal Medicine | DX: Z13.6 Encounter for screening for cardiovascular disorders (principal) | CPT/HCPCS: 93010 ==

== ENCOUNTER 2025-01-07 11:45 | Outpatient (BNV) | payer OTHER, SELFPAY | END 2025-01-09 18:13 | PROVIDERS: Admitting Provider Clinical Nurse Specialist Psychiatric/Mental Health, Adult; Emergency Provider Emergency Medicine; PCP Internal Medicine; Visit Provider Student in an Organized Health Care Education/Training Program | DX: R09.81 Nasal congestion (principal) | CPT/HCPCS: 70220 ==

== ENCOUNTER 2025-01-07 11:45 | Outpatient (BNV) | payer OTHER, SELFPAY | END 2025-01-22 13:59 | PROVIDERS: Admitting Provider Clinical Nurse Specialist Psychiatric/Mental Health, Adult; Emergency Provider Emergency Medicine; PCP Internal Medicine; Visit Provider Radiology Body Imaging | DX: K59.00 Constipation, unspecified (principal) | CPT/HCPCS: 74018 ==

== ENCOUNTER 2025-01-07 11:45 | Outpatient (BNV) | payer OTHER, SELFPAY | END 2025-01-08 14:28 | PROVIDERS: Admitting Provider Clinical Nurse Specialist Psychiatric/Mental Health, Adult; Emergency Provider Emergency Medicine; PCP Internal Medicine; Visit Provider Radiology Diagnostic Radiology | DX: J98.4 Other disorders of lung (principal) | CPT/HCPCS: 71046 ==

== ENCOUNTER → 2025-01-07 11:45 | Outpatient (BNV) | payer OTHER, SELFPAY | PROVIDERS: Admitting Provider Clinical Nurse Specialist Psychiatric/Mental Health, Adult; Emergency Provider Emergency Medicine; PCP Internal Medicine; Visit Provider Clinical Nurse Specialist Psychiatric/Mental Health, Adult | DX: F25.9 Schizoaffective disorder, unspecified (principal); F10.90 Alcohol use, unspecified, uncomplicated; F12.90 Cannabis use, unspecified, uncomplicated | CPT/HCPCS: 90792; 99232 ==

== ENCOUNTER → 2025-01-07 11:45 | Outpatient (BNV) | payer OTHER, SELFPAY | PROVIDERS: Admitting Provider Clinical Nurse Specialist Psychiatric/Mental Health, Adult; Emergency Provider Emergency Medicine; PCP Internal Medicine; Visit Provider Nurse Practitioner Family | DX: G47.34 Idiopathic sleep related nonobstructive alveolar hypoventilation (principal) | CPT/HCPCS: 99221; 99499 ==

== ENCOUNTER 2025-01-26 11:35 | Inpatient (IN) | payer OTHER, SELFPAY ==
--- NOTE | ~2025-01-26 | CT_ITS ---
CLINICAL HISTORY: ongoing diffuse L sided abdominal pain CT abdomen and pelvis with contrast Comparison: CT/SR - CT ABDOMEN PELVIS WITH IV CONTRAST - 11/19/22 16:29 EDT Findings: Left lung base subpleural 6 mm pulmonary nodule. Lung bases are otherwise clear. Spleen, adrenal glands, pancreas, gallbladder and liver are unremarkable. No bowel obstruction, pneumoperitoneum, or pneumatosis. No bowel wall thickening. Moderately large amount of fecal loading within the right colon and transverse colon. Pelvic contents unremarkable. Normal appendix. No acute fracture. IMPRESSION: No acute findings. 6 mm pulmonary nodule at the left lung base. Per Fleischner recommendations, 6-8 mm nodules have optional [address] follow-up in low risk, and 6-[address] follow-up followed by 18-[address] follow-up if no change in high risk patients. This document has been electronically signed by: Loki Austin MD on 01/26/2025 19:58:54
--- NOTE | ~2025-01-26 | XR_ITS ---
CLINICAL HISTORY: uri sx, fever, 2 view chest x-ray Comparison: Chest x-ray from 01/08/2025 Findings: Mild bibasilar atelectasis/pneumonitis. No pneumothorax or pleural effusion accounting for artifacts. Mild cardiomegaly accentuated by technique. Mild degenerative changes include right AC joint. IMPRESSION: Mild bibasilar atelectasis/pneumonitis. This document has been electronically signed by: Vahid Ramsey MD on 01/31/2025 00:29:17
--- NOTE | 2025-01-26 11:43 | ED.PSYCH ---
HPI - Psych General Chief Complaint: Psychiatric Symptoms Stated Complaint: crisis? Time Seen by Provider: 01/26/25 12:33 Source: patient, RN notes reviewed and old records reviewed History of Present Illness ED Provider: MENDEL Miller HPI Narrative: 34-year-old male with medical history of NAFLD, GERD, anxiety, schizoaffective disorder, depression, HTN, T2DM, alcohol use disorder presents to the ED due to L sided abdominal pain and concerns of blood in his urine. Patient states one of his CHD providers told him he has cancer and thinks it may have to do with his prostate but does not know for sure. Patient states this news has brought him extreme distress and he has been depressed and anxious causing him to have passive suicidal thoughts without a plan, with auditory hallucinations telling him negative things . Denies chest pain, SOB, nausea, vomiting, diarrhea, pain with urination, HI, VH Related Data Home Medications ?Medication ?Instructions ?Recorded ?Confirmed ondansetron 4 mg disintegrating 4 mg PO Q8H PRN Nausea And Vomiting 09/12/24 01/27/25 tablet ammonium lactate 12 % lotion 1 appl topical DAILY 09/13/24 01/27/25 clozapine 100 mg tablet 100 mg PO BEDTIME 01/27/25 01/27/25 clozapine 25 mg tablet 25 mg PO BEDTIME 01/27/25 01/27/25 tirzepatide 2.5 mg/0.5 mL 2.5 mg subcut SA 01/27/25 01/27/25 subcutaneous pen injector (Mari) Previous Rx's ?Medication ?Instructions ?Recorded acetaminophen 325 mg tablet 650 mg (2 x 325 mg) PO Q6H PRN 09/18/24 Headache/Pain, Scale 1-10 #0 tabs albuterol sulfate 90 mcg/actuation 1 inh inhalation QID PRN Wheezing 01/23/25 aerosol inhaler #1 inhaler amlodipine 10 mg tablet 10 mg PO DAILY #30 tabs 01/23/25 benzocaine 15 mg-menthol 3.6 mg 1 evelyn mucous membrane Q2H PRN Sore 01/23/25 lozenges (Sore Throat (benzocaine Throat #30 evelyn with menthol)) benztropine 1 mg tablet 1 mg PO BID #60 tabs 01/23/25 chlorpromazine 25 mg tablet 25 mg PO Q6H PRN anxiety, 01/23/25 agitation #90 tabs cyclobenzaprine 10 mg tablet 10 mg PO TID PRN back muscle spasm 01/23/25 30 days #90 tabs docusate sodium 100 mg capsule 100 mg PO BID #60 caps 01/23/25 duloxetine 30 mg capsule,delayed 30 mg PO DAILY #30 caps 01/23/25 release folic acid 1 mg tablet 1 mg PO DAILY #30 tabs 01/23/25 gabapentin 300 mg capsule 300 mg PO TID #90 caps 01/23/25 hydroxyzine HCl 25 mg tablet 50 mg (2 x 25 mg) PO Q6H PRN mild 01/23/25 anxiety #60 tabs ibuprofen 600 mg tablet 600 mg PO Q8H PRN back pain #30 01/23/25 tabs lamotrigine 25 mg tablet 25 mg PO DAILY #30 tabs 01/23/25 lanolin alcohols-mineral 1 appl topical QID PRN Dry Skin 01/23/25 oil-w.petrolatum-ceresin topical #226 grams cream (Eucerin topical cream) loratadine 10 mg tablet 10 mg PO DAILY #30 tabs 01/23/25 losartan 50 mg tablet 100 mg PO DAILY #60 tabs 01/23/25 melatonin 3 mg tablet 3 mg PO BEDTIME PRN Sleep #30 tabs 01/23/25 metformin 500 mg tablet,extended 500 mg PO BID #60 tabs 01/23/25 release 24 hr metoprolol succinate 50 mg 50 mg PO DAILY #30 tabs 01/23/25 tablet,extended release 24 hr naltrexone 50 mg tablet 50 mg PO DAILY #30 tabs 01/23/25 nicotine (polacrilex) 2 mg gum 4 mg buccal Q2H PRN Nicotine 01/23/25 Cravings #200 ea nicotine 21 mg/24 hr daily 1 patch transdermal DAILY #30 ea 01/23/25 transdermal patch peg [id number] 1 2 drp ophthalmic (eye) Q4H PRN Dry 01/23/25 %-0.2 %-0.2 % eye drops Eyes #10 mL (Artificial Tears ([id number])) polyethylene glycol 3350 17 gram 17 g PO DAILY #30 ea 01/23/25 oral powder packet prazosin 1 mg capsule 4 mg PO BEDTIME #120 caps 01/23/25 sennosides 8.6 mg tablet (Senna 17.2 mg (2 x 8.6 mg) PO BEDTIME 01/23/25 Lax) #30 tabs thiamine mononitrate (vit B1) 100 100 mg PO DAILY #30 tabs 01/23/25 mg tablet trazodone 100 mg tablet 100 mg PO BEDTIME #30 tabs 01/23/25 umeclidinium 62.5 mcg/actuation 1 inh inhalation DAILY #1 inhaler 01/23/25 blister powder for inhalation (Incruse Ellipta) Allergies Allergy/AdvReac Type Severity Reaction Status Date / Time lisinopril Allergy Unknown Cough Verified 01/26/25 11:49 clonidine AdvReac Unknown Unknown Verified 01/26/25 11:49 Review of Systems Review of Systems: Yes all other systems are reviewed and are negative [facility] Past Medical History Attestation statement: The following information was validated with the patient. Source: old records reviewed and nursing notes reviewed Medical History Cannabis use disorder Alcohol use disorder Morbid obesity Medical clearance for psychiatric admission Schizoaffective disorder Diabetes HTN (hypertension) Social History Social History Household Members: None Housing: Apartment Do you presently have visiting nurse or other home services: Yes (SPIN TABLE OPERATOR and RN to help with medications) Alcohol intake: current Alcohol intake frequency: 3 or more drinks per day Alcohol type: hard liquor Patient Tobacco Use Status: Current everyday Tobacco user Tobacco use type: Cigarette Cigarette Packs Per Day: 2 Cigarettes Per Day: 40.0 Years Smoked: 15 Smoked in Last 30 Days: Yes e-Cigarette/Vaping Use: Currently Using Frequency of e-Cigarette/Vaping Use: 1 vape every 2 weeks Patient Given Instructions on How to Stop Smoking: No Second Hand Smoke Exposure: No Use of substances other than those prescribed or required for medical reasons: No Substance Use Type: Marijuana Currently Displaying Signs/Symptoms of Drug Intoxication Withdrawal: No Have you been hit, kicked, punched, or otherwise hurt by someone within the past year? If so, by whom?: No Do you feel safe in your current relationship?: No Current Relationship Is there a partner from a previous relationship who is making you feel unsafe now?: No Are you made to feel afraid or neglected: No [facility] Practices: Sabian[facility] Advance Directives: No Advance Directives Information Provided: No Do you have thoughts of harming others: None Do you have a plan to hurt others: No Plan Recently lost weight without trying: No How much weight loss: Not applicable Eating poorly because of decreased appetite: No Nutrition screen score: 0 Poor oral hygiene: Yes service: No Sexual orientation: Straight/Heterosexual Physical Exam Vital Signs: Vital Signs: Last Vital Signs Temp 98.5 F 01/28/25 20:00 Pulse 94 01/28/25 20:00 Resp 16 01/28/25 08:00 BP 160/96 H 01/28/25 21:14 Pulse Ox 94 01/28/25 20:00 O2 Del Method Room Air 01/28/25 20:00 O2 Flow Rate 2 01/27/25 10:58 BMI result Body Mass Index 58.8 GENERAL APPEARANCE: ?AxOx4, generally well-appearing, no acute distress. HEENT: ?NC, AT. MMM. EOMI, clear conjunctiva, oropharynx clear. NECK: ?Supple without lymphadenopathy.? No stiffness or restricted ROM. HEART:? Normal rate and regular rhythm, normal S1/S2, no m/r/g LUNGS:? CTAB, moving air well. No crackles or wheezes are heard. ABDOMEN: Large, rotund, soft, nondistended, no rigidity, no guarding, negative Frost's sign, no rebound tenderness, diffuse tenderness of entire left side of abdomen BACK: No CVAT, no obvious deformity. EXTREMITIES: ?Without cyanosis, clubbing or edema. NEUROLOGICAL: ?Grossly nonfocal. Alert and oriented, moving all 4 extremities. Skin: ?Warm and dry without any rash. Course Course Course Narrative: This is a Rapid Medical Exam performed in triage by Salud Faye PA-C. Full HPI, ROS and PE to be performed by primary ED provider. 34-year-old male with a medical history significant for diabetes type 2, hypertension, schizoaffective disorder, alcohol abuse, substance use presents to the ED c/o gross hematuria & +SI - admits to punching a door. States his provider just told me I had cancer. Admits to . Denies HI. Denies taking any medications since hospital discharge - [place] [facility] [place] PE: NAD, nontoxic appearing, +SI Plan: Labs, UA, HARTMAN, CARE team consult Time: 05:53 Date: 01/27/25 Provider: Maral Alvares, DO Patient in physician observation for psychiatric evaluation.? No acute events reported overnight. No current complaints. VS stable.? Patient is in bed search status/pending CARE team evaluation. Will continue to monitor. Medications Administered Generic Name Dose Route Start Last Admin Trade Name Freq PRN Reason Stop Dose Admin Amlodipine Besylate 10 mg 01/28/25 09:00 01/28/25 09:18 Amlodipine Besylate 10 Mg Tablet PO 10 mg DAILY EDWIGE Administration Protocol Benztropine Mesylate 1 mg 01/27/25 21:00 01/28/25 21:13 Benztropine Mesylate 1 Mg Tablet PO 1 mg BID EDWIGE Administration Chlorpromazine HCl 25 mg 01/27/25 15:14 01/28/25 21:14 Chlorpromazine Hcl 25 Mg Tablet PO 25 mg Q6H PRN Administration anxiety, agitation Clozapine 100 mg/ Clozapine 25 125 mg 01/28/25 21:00 01/28/25 21:13 mg PO 125 mg BEDTIME EDWIGE Administration Docusate Sodium 100 mg 01/27/25 21:00 01/28/25 21:14 Docusate Sodium 100 Mg Capsule PO 100 mg BID EDWIGE Administration Duloxetine HCl 30 mg 01/28/25 09:00 01/28/25 09:19 Duloxetine Hcl 30 Mg Capsule.Dr PO 30 mg DAILY EDWIGE Administration Folic Acid 1 mg 01/28/25 09:00 01/28/25 09:19 Folic Acid 1 Mg Tablet PO 1 mg DAILY EDWIGE Administration Gabapentin 300 mg 01/27/25 15:14 01/28/25 21:13 Gabapentin 300 Mg Capsule PO 300 mg TID EDWIGE Administration Hydroxyzine HCl 50 mg 01/27/25 15:14 01/28/25 17:58 Hydroxyzine Hcl 50 Mg Tablet PO 50 mg Q6H PRN Administration mild anxiety Lactic Acid 1 appl 01/28/25 09:00 01/28/25 09:20 Ammonium Lactate 12 % Lotion 226 Gm Bottle TOPICAL 1 appl DAILY EDWIGE Administration Protocol Lamotrigine 25 mg 01/28/25 09:00 01/28/25 09:18 Lamotrigine 25 Mg Tablet PO 25 mg DAILY EDWIGE Administration Loratadine 10 mg 01/28/25 09:00 01/28/25 09:19 Loratadine 10 Mg Tablet PO 10 mg DAILY EDWIGE Administration Losartan Potassium 100 mg 01/28/25 09:00 01/28/25 09:19 Losartan Potassium 50 Mg Tablet PO 100 mg DAILY EDWIGE Administration Protocol Metformin HCl 500 mg 01/27/25 21:00 01/28/25 21:13 Metformin Hcl Er 500 Mg Tab.Er.24h PO 500 mg BID EDWIGE Administration Metoprolol Succinate 50 mg 01/28/25 09:00 01/28/25 09:19 Metoprolol Succinate Er 50 Mg Tab.Er.24h PO 50 mg DAILY EDWIGE Administration Protocol Naltrexone HCl 50 mg 01/28/25 09:00 01/28/25 09:18 Naltrexone Hcl 50 Mg Tablet PO 50 mg DAILY EDWIGE Administration Nicotine 21 mg 01/28/25 09:00 01/28/25 09:17 Nicotine 21 Mg Patch.Td24 TRANSDERMA 21 mg DAILY EDWIGE Administration Polyethylene Glycol 17 gm 01/28/25 09:00 01/28/25 09:20 Polyethylene Glycol 3350 17 Gm Powd.Pack PO 17 gm DAILY EDWIGE Administration Prazosin HCl 4 mg 01/27/25 21:00 01/28/25 21:14 Prazosin Hcl 1 Mg Capsule PO 4 mg BEDTIME EDWIGE Administration Protocol Senna 17.2 mg 01/27/25 21:00 01/28/25 21:14 Sennosides 8.6 Mg Tablet PO 17.2 mg BEDTIME EDWIGE Administration Thiamine HCl 100 mg 01/28/25 09:00 01/28/25 09:19 Thiamine Hcl 100 Mg Tablet PO 100 mg DAILY EDWIGE Administration Tiotropium [place] 2 puff 01/28/25 08:00 01/28/25 09:20 Tiotropium [place] 2.5 Mcg 1 Puff/2.5 Mcg Mist.Inhal INHALE Not Given RDAILY COUNT INCLUDES THE [facility] Trazodone HCl 100 mg 01/27/25 21:00 01/28/25 21:13 Trazodone Hcl 100 Mg Tablet PO 100 mg BEDTIME EDWIGE Administration Discontinued Medications Generic Name Dose Route Start Last Admin Trade Name Freq PRN Reason Stop Dose Admin Albuterol Sulfate 2 puff 01/26/25 13:38 01/26/25 13:42 Albuterol Sulfate 90 Mcg 8 Gm Inhaler INHALE 01/26/25 13:39 2 puff ONCE ONE Administration Clozapine 75 mg 01/27/25 21:00 01/27/25 20:12 Clozapine 25 Mg Tablet PO 75 mg BEDTIME EDWIGE Administration Iohexol 100 ml 01/26/25 19:36 01/26/25 19:37 Iohexol 350 Mg/Ml 100 Ml Infus..Btl IV 01/26/25 19:37 85 ml ONCE ONE Administration Olanzapine 10 mg 01/26/25 20:48 01/26/25 21:47 Olanzapine 10 Mg Tablet PO 01/26/25 20:49 10 mg ONCE ONE Administration Medical Decision Making Medical Decision Making MDM Narrative: 34-year-old male with medical history of NAFLD, GERD, anxiety, schizoaffective disorder, depression, HTN, T2DM, alcohol use disorder presents to the ED due to L sided abdominal pain and concerns of blood in his urine. Patient states one of his CHD providers told him he has cancer and thinks it may have to do with his prostate but does not know for sure. Patient states this news has brought him extreme distress and he has been depressed and anxious causing him to have passive suicidal thoughts without a plan, with auditory hallucinations telling him negative things VS on initial observation-BP 183/95, pulse rate of 113, respiratory rate of 18, afebrile with oral temp of 98? degrees, O2 saturation 94% on room air. On physical exam lungs clear to auscultation bilaterally, cardiac exam reveals normal rate and rhythm without murmurs/rubs/gallops, abdomen is large, with diffuse tenderness of the entire left side of the abdomen, no overlying skin changes or rashes noted Course 20:05- Patient complaining of negative voices and is requesting something to make them stop Patient is calm, he is being medicated with 10mg po zyprexa to manage auditory hallucinations. Labs without leukocytosis/leukopenia, normocytic stable anemia with a hemoglobin of 12.5, hematocrit of 40.2, mild transaminitis with AST of 77, ALT of 61 however patient with history of NAFLD most likely causing these elevations, no electrolyte abnormalities. UA with 1+ urine protein, urine ketones, but negative urine blood or bacteria. U tox negative CT abdomen and pelvis reveals 6 mm pulmonary nodule at the left lung base, with recommendations with CT follow up in high risk patients. Patient has history of smoking and COPD. I have discussed theses findings with him. I have spoken with care team behavioral health specialist Kajal Hale and patient will be section 12 for IPLOC due to suicidal ideation and command auditory hallucinations. 21:30- Patient entering phys obs as he awaits psych eval in the morning Differential Diagnosis Differential Diagnoses: The differential diagnosis associated with the presentation includes Diverticulitis Constipation Increased depression Schizoaffective disorder Psychosis Suicidal ideation Admission/Observation Consideration of admission/observation: Escalation of care including admission/observation considered Consult Healthcare Provider Management of the patient was discussed with: Mechanic Driver (Care team) Lab Data MDM Lab Attestation statement: I reviewed the patient's lab results. 01/26/25 12:49 01/28/25 08:25 Labs: Lab Results 01/26/25 01/26/25 01/26/25 Range/Units 12:49 12:52 13:24 WBC 7.7 (4.8-10.8) X10*3/uL RBC 4.87 (4.60-5.80) X10*6/uL Hgb 12.5 L (14.0-18.0) g/dl Hct 40.2 L (42.0-52.0) % MCV 82.5 (80.0-98.0) fL MCH 25.7 L (27.0-33.0) pg MCHC 31.1 (31.0-36.0) g/dl RDW 14.1 (11.0-16.0) % Plt Count 256 (160-400) X10*3/uL MPV 9.7 (9.4-12.4) fL Immature Gran % (Auto) 0.5 H (0.0-0.4) % Neut % (Auto) 72.8 (45-73) % Lymph % (Auto) 17.2 L (20-40) % [place] % (Auto) 7.7 (2-11) % Eos % (Auto) 1.4 (0-4) % Baso % (Auto) 0.4 (0-2) % Lymph # (Auto) 1.3 (1.2-4.9) X10*3/uL [place] # (Auto) 0.6 (0.1-1.2) X10*3/uL Eos # (Auto) 0.1 (0.0-0.4) X10*3/uL Baso # (Auto) 0.0 (0.0-0.2) X10*3/uL Abs Immat Gran (auto) 0.04 H (0.00-0.03) X10*3/uL Absolute Neuts (auto) 5.6 (2.0-8.3) x10*3/uL Absolute Nucleated RBC 0.000 (0.0-0.012) X10*3/uL Nucleated RBC % (auto) 0.0 (0.0-0.2) /100WBC Sodium 142 (135-145) mmol/L Potassium 3.9 (3.3-5.1) mmol/L Chloride 108 (96-108) mmol/L Carbon Dioxide 25 (22-29) mmol/L Anion Gap 13 (12-20) BUN 12 (9-16) mg/dL Creatinine 0.79 (0.5-1.4) mg/dL Estim Creat Clear Calc 216.0 Estimated GFR > 60 POC Glucose 103 (60-115) mg/dL Random Glucose 103 (60-115) mg/dL Calcium 9.0 D (8.4-10.2) mg/dL Magnesium 1.9 (1.6-2.6) mg/dL Total Bilirubin 0.3 (0.0-1.0) mg/dL Direct Bilirubin 0.1 (0.0-0.5) mg/dL AST 77 H (5-37) U/L ALT 61 H (0-40) U/L Alkaline Phosphatase 91 (39-117) U/L Total Protein 7.4 (6.5-8.0) g/dL Albumin 4.5 (3.5-5.0) g/dL Lipase 7 L (8-78) U/L Urine Color Yellow Urine Appearance Clear Urine pH 7.5 (5.0-9.0) Ur Specific [place] 1.025 (1.005-1.025) Urine Protein 30 (1+) H (Neg-Trace) mg/dL Urine Glucose (UA) Negative (Negative) mg/dL Urine Ketones 15 (Negative) mg/dL Urine Blood Negative (Negative) Urine Nitrite Negative (Negative) Ur Leukocyte Esterase Negative (Negative) Urine RBC 0-2 (0-2) /HPF Urine WBC 0-5 (0-5) /HPF Ur Squamous Epith Cells 0-2 (0-2) /HPF Urine Bacteria None Seen (None Seen) Hyaline Casts 0-2 (0-2) /LPF Urine Opiates Screen Not Detected (Not Detect) Ur Buprenorphine Scrn Not Detected (Not Detect) ng/mL Ur Oxycodone Screen Not Detected (Not Detect) ng/mL Urine Methadone Screen Not Detected (Not Detect) ng/mL Urine Fentanyl Screen Not Detected (Not Detect) Ur Barbiturates Screen Not Detected (Not Detect) Ur Phencyclidine Scrn Not Detected (Not Detect) Ur Amphetamines Screen Not Detected (Not Detect) U Benzodiazepines Scrn Not Detected (Not Detect) Urine Cocaine Screen Not Detected (Not Detect) U Marijuana (THC) Screen Not Detected (Not Detect) Independent Interpretation I performed an independent interpretation of an: CT Scan Interpretation: I personally interpreted the CT abdomen and pelvis which was negative for acute intra abdominal pathology however does reveal small nodules of the left lung base, I agree with the radiologist's interpretation Radiology Impression Discussion of test interpretation with radiology: I have reviewed the radiologist's reading. Radiologist Impression: CT abdomen and pelvis Findings: Left lung base subpleural 6 mm pulmonary nodule. Lung bases are otherwise clear. Spleen, adrenal glands, pancreas, gallbladder and liver are unremarkable. No bowel obstruction, pneumoperitoneum, or pneumatosis. No bowel wall thickening. Moderately large amount of fecal loading within the right colon and transverse colon. Pelvic contents unremarkable. Normal appendix. No acute fracture. IMPRESSION: No acute findings. 6 mm pulmonary nodule at the left lung base. Per Fleischner recommendations, 6-8 mm nodules have optional [address] follow-up in low risk, and 6-[address] follow-up followed by 18-[address] follow-up if no change in high risk patients. This document has been electronically signed by: Loki Austin MD on 01/26/2025 19:58:54 Dictated By: Loki Austin MD Signed By: <Electronically signed by Loki Austin MD in OV> 01/26/251958 External Record Review External record reviewed: Inpatient record, Office record, Outpatient record and Prior outpatient labs Chronic Conditions Patient?s care impacted by: Other (NAFLD, GERD, anxiety, schizoaffective disorder, depression, HTN, T2DM, alcohol use disorder) Discharge Plan Discharge Clinical Impression: Depression with suicidal ideation Patient Disposition: Admitted As Inpatient Interventions: Admission Worksheet (ED) Last Done: 01/27/25 14:30 Discharge Date/Time: 01/27/25 14:46
[2025-01-26 11:46] VITALS: BP 183/95; PULSE 113; RESP 18; TEMP 36.6; O2SAT 94; BMI 58.8
--- OUTSIDE RECORDS SUMMARY | 2025-01-26 12:36 | XMS_ITS | Clinical Summary ---
Author Organization [facility] Prior to 07/20/24 Address [address] [place] [address] Care Team Providers Care Supervisor Communications And Signals Name Role Phone Unavailable Primary Care Provider [...] Advance Directives For more information, please contact: [phone] Latest Code Status on File Code Status Date Activated Date Inactivated Comments Full Code 09/30/2020 1:54 AM 10/05/2020 9:45 PM This code status was ascertained in the following way: per unit protocol.
--- OUTSIDE RECORDS SUMMARY | 2025-01-26 12:36 | XMS_ITS | Data Portability ---
Author Organization [employer], [facility] [place] [facility] Address [address] [place] [address] Care Team Providers Care Supervisor Electronics Inspection Name Role Phone [facility] Primary Care Provider HIM CCA OTHER Assessment Encounter Date Assessment Date Assessment LastModified by Organization Details LastModified Time 08/18/2024 08/18/2024 I have reviewed and agree with the assessment and plan as documented by the wheel press operator. I provided real-time medical direction for this encounter and was immediately available to provide additional phone-based assistance as needed. HPI: 34 M presenting with nausea/diarrhea x few days. Pt recently restarted ozempic after two weeks of not taking it. States that his symptoms has improved today. T 99.5, no chills or sweats. No blood in stool O/E: Bp 210/140, HR 110. T 99.5. Exam otherwise unremarkable per the wheel press operator. EKG reveals QTC within normal limits. Impression/Plan : Pt with likely side effects from GLP1 medication, states that it is improving. His BP is elevated, however he indicates that is his baseline. He does not have evidence of clinical dehydration. Will proceed with zofran 4mg SL. Advised to maintain adequate hydration and to use BP meds as prescribed. Red flags and return precautions discussed. We discussed the diagnostic uncertainty of home visits and the risk associated with this. In this case, the patient and I felt this to be an acceptable and reasonable amount of risk given the benefit of avoiding an ED visit. We discussed the need to seek care urgently/emerge ntly in the setting of any new or worsening serious symptoms, particularly weakness, dizziness, fever, chills, CP, SOB, worsening diarrhea, nausea, vomiting or any other concerns. paysola Not available 08/18/2024 19:42:26 Plan of Treatment Reminders Order Date Submit Date Provider Last Modified By Organization Details Last Modified Time Details Appointments None recorded. Lab BMP, serum or plasma [facility]24 [facility] [address] [place] [address], [id number] 5 08:57:35 Referral None recorded. Procedures None recorded. Surgeries None recorded. Imaging electrocard iogram [address] [facility], [address] [place] [address], [id number] 21:09:11 Medication Orders ondansetron 4 mg disintegrat ing tablet 2024 025 [facility] [id number], [address] [place], [address], 5 19:42:46 lactated Ringers intravenous solution [address] [id number], [address] [place], [address], 5 19:34:30 ondansetron HCl (PF) 4 mg/2 mL injection solution [address] [id number], [address] [place], [address], 5 19:34:30 Patient TargetsNo targets recorded. Patient InstructionsNo instructions recorded. Reason for Referral None Reported. Results Created Date Observation Date Name Description Value Unit Range Abnormal Flag Note LastModifiedBy Organization Detail LastModifiedTime 08/19/19 25 08/18/2024 anni hardwick am No observ ation record ed. [email or web address] [address], [phone] 08/18/2024 21:43:22 Result Notes None recorded. Medical Equipment None Reported. Allergies Allergen ID Allergen Name Allergen Category Reaction Reaction Severity Criticality Documentation Date Start Date Code Code System Note Provider Name and Address Organization Details Recorded Time 35217 lisinopri l medicatio n Not available Not available Not available 08/18/2024 30556 Rx[facility] 17:31:21 11658 clonidine medicatio n Not available Not available Not available 08/18/2024 2599 Rx[facility] Available [facility] 17:31:21 42875 Substance with sulfonami de structure and antibacte rial mechanism of action (substanc e) medicatio n Not available Not available Not available 08/18/2024 94109 8003 SNOMED Not Available [facility] - production 17:31:21 Medications Name Sig Start Date Stop Date Status Note LastModified by Organization Details LastModified Time haloperidol 0.5 mg tablet TAKE 5 TAB BY MOUTH ONCE DAILY active Not Available Not Available N ot Available metformin 500 mg tablet TAKE 1 TABLET BY MOUTH two (2) times a day active Not Available Not Available No t Available venlafaxine ER 75 mg capsule,exten ded release 24 hr TAKE 3 CAPSULES BY MOUTH ONCE DAILY active Not Available Not Available N ot Available gabapentin 600 mg tablet TAKE 1 TABLET BY MOUTH 3 (THREE) TIMES A DAY active Not Available Not Available No t Available benztropine 0.5 mg tablet TAKE 1 TABLET BY MOUTH two (2) times a day active Not Available Not Available No t Available haloperidol 5 mg tablet TAKE 1 TABLET BY MOUTH ONCE DAILY active Not Available Not Available No t Available trazodone 50 mg tablet TAKE 1 TABLET BY MOUTH ONCE DAILY AT BEDTIME FOR insomnia active Not Available Not Available No t Available risperidone 4 mg tablet TAKE 1 TABLET BY MOUTH ONCE DAILY AT BEDTIME active Not Available Not Available No t Available prazosin 1 mg capsule TAKE 1 CAPSULE BY MOUTH AT BEDTIME active Not Available Not Available No t Available famotidine 40 mg tablet TAKE 1 TABLET BY MOUTH ONCE DAILY NEEDED FOR upset stomach active Not Available Not Available No t Available gabapentin 400 mg capsule TAKE 1 CAPSULE BY MOUTH 3 (THREE) TIMES A DAY active Not Available Not Available No t Available sertraline 100 mg tablet TAKE 1 TABLET BY MOUTH ONCE DAILY active Not Available Not Available No t Available venlafaxine ER 150 mg capsule,exten ded release 24 hr TAKE 1 CAPSULE BY MOUTH EVERY MORNING active Not Available Not Available No t Available hydroxyzine pamoate 50 mg capsule TAKE 1 CAPSULE BY MOUTH ONCE DAILY NEEDED ANXIETY active Not Available Not Available No t Available lithium carbonate ER 300 mg tablet,extend ed release TAKE 2 TABLETS BY MOUTH EVERY MORNING active Not Available Not Available No t Available risperidone 0.25 mg tablet TAKE 1 TABLET BY MOUTH AT BEDTIME active Not Available Not Available No t Available amlodipine 2.5 mg tablet TAKE 3 TABLETS BY MOUTH ONCE DAILY active Not Available Not Available No t Available melatonin 3 mg tablet TAKE 1 TABLET BY MOUTH AT BEDTIME NEEDED FOR insomnia active Not Available Not Available No t Available chlorthalidon e 25 mg tablet TAKE 1/2 TABLETS BY MOUTH EVERY MORNING. TAKE WITH A MEAL active Not Available Not Available No t Available amlodipine 5 mg tablet TAKE 1 & 1/2 TAB BY MOUTH EVERY MORNING active Not Available Not Available No t Available risperidone 3 mg tablet TAKE 1 TABLET BY MOUTH two (2) times a day active Not Available Not Available No t Available triamcinolone acetonide 0.1 % topical cream APPLY TOPICALLY 3 (THREE) TIMES A DAY active Not Available Not Available No t Available lithium carbonate ER 450 mg tablet,extend ed release TAKE 1 TABLET BY MOUTH two (2) times a day active Not Available Not Available No t Available risperidone 2 mg tablet TAKE 1 TABLET BY MOUTH ONCE DAILY active Not Available Not Available No t Available prazosin 5 mg capsule TAKE 1 CAPSULE BY MOUTH ONCE DAILY AT BEDTIME active Not Available Not Available No t Available trazodone 100 mg tablet TAKE 1 TABLET BY MOUTH ONCE DAILY AT BEDTIME active Not Available Not Available No t Available lithium carbonate 600 mg capsule TAKE 1 CAPSULE BY MOUTH ONCE DAILY active Not Available Not Available No t Available pantoprazole 40 mg tablet,delaye d release TAKE 1 TABLET BY MOUTH ONCE DAILY active Not Available Not Available No t Available trazodone 150 mg tablet TAKE 1 TABLET BY MOUTH ONCE DAILY AT BEDTIME active Not Available Not Available No t Available ferrous sulfate 325 mg (65 mg iron) tablet active Not Available Not Available Not Available haloperidol 10 mg tablet TAKE 1 TABLET BY MOUTH ONCE DAILY AT BEDTIME active Not Available Not Available No t Available losartan 25 mg tablet TAKE 1 TABLET BY MOUTH ONCE DAILY AT BEDTIME active Not Available Not Available No t Available benztropine 1 mg tablet TAKE 1 TABLET BY MOUTH two (2) times a day active Not Available Not Available No t Available docusate sodium 100 mg capsule TAKE 1 CAPSULE BY MOUTH two (2) times a day active Not Available Not Available No t Available gabapentin 300 mg capsule active Not Available Not Available Not Available folic acid 1 mg tablet TAKE 1 TABLET BY MOUTH ONCE DAILY active Not Available Not Available No t Available hydroxyzine HCl 25 mg tablet TAKE 1 TABLET BY MOUTH two (2) times a day NEEDED FOR ANXIETY active Not Available Not Available No t Available capsaicin 0.025 % topical cream APPLY TO THE AFFECTED AREA TOPICALLY 3 (THREE) TIMES A DAY NEEDED FOR PAIN moderato (scale 4-6) active Not Available Not Available No t Available gabapentin 100 mg capsule TAKE TWO CAPSULES BY MOUTH 3 (THREE) TIMES A DAY active Not Available Not Available No t Available polyethylene glycol 3350 17 gram/dose oral powder DISSOLVE 17gramos IN WATER AND DRINK ONCE DAILY active Not Available Not Available N ot Available albuterol sulfate HFA 90 mcg/actuation aerosol inhaler active Not Available Not Available Not Available ondansetron [address] 1 TAB UNDER THE TONGUE TO DISSOLVE 3 (THREE) TIMES A DAY NEEDED FOR NAUSEA active Not Available Not Available No t Available lithium carbonate 300 mg tablet TAKE 3 TABLETS BY MOUTH ONCE DAILY AT BEDTIME active Not Available Not Available No t Available fluticasone propionate 50 mcg/actuation nasal spray,suspens ion SPRAY ONCE IN EACH NOSTRIL ONCE DAILY active Not Available Not Available N ot Available metformin ER 500 mg tablet,extend ed release 24 hr TAKE 1 TABLET BY MOUTH ONCE DAILY FOR 1 WEEK; THEN 1 TAB two (2) times a day FOR 1 WEEK; THEN 2 TAB two (2) times a day active Not Available Not Available No t Available betamethasone dipropionate 0.05 % lotion active Not Available Not Availabl e Not Available loratadine 10 mg tablet TAKE 1 TABLET BY MOUTH ONCE DAILY active Not Available Not Available No t Available risperidone 0.5 mg tablet TAKE 1 TABLET BY MOUTH two (2) times a day NEEDED FOR bipolar active Not Available Not Available No t Available prazosin 2 mg capsule TAKE 1 CAPSULE BY MOUTH ONCE DAILY AT BEDTIME active Not Available Not Available No t Available hydroxyzine pamoate 25 mg capsule active Not Available Not Available Not Available ferrous fumarate 324 mg (106 mg iron) tablet TAKE 1 TABLET BY MOUTH EVERY 48 HOUR active Not Available Not Available No t Available paliperidone ER 6 mg tablet,extend ed release 24 hr TAKE 1 TABLET BY MOUTH ONCE DAILY active Not Available Not Available No t Available FreeStyle Lite Meter kit USE TO TEST FINGER STICK BLOOD SUGAR ONCE DAILY DIRECTED active Not Available Not Available No t Available FreeStyle Lite Strips USE TO TEST FINGER STICK BLOOD SUGAR ONCE DAILY AND FOR symptoms of sweats, dizziness, confusion active Not Available Not Available No t Available ferrous sulfate 324 mg (65 mg iron) tablet,delaye d release TAKE 1 TABLET BY MOUTH EVERY OTHER DAY active Not Available Not Available No t Available amlodipine 5 mg-olmesartan 20 mg tablet TAKE 1 TABLET BY MOUTH ONCE DAILY active Not Available Not Available No t Available diclofenac 1 % topical gel APPLY 2 gramos TOPICALLY TO elbow, wrist, or hand. APPLY 4 gramos TOPICALLY TO knee, ankle, or foot. APPLY 4 (FOUR) TIMES DAILY active Not Available Not Available No t Available melatonin 5 mg tablet active Not Available Not Available No t Available Inject Ease Lancets 28 gauge USE TO TEST FINGER STICK BLOOD SUGAR ONCE DAILY active Not Available Not Available No t Available Senna-Time S 8.6 mg-50 mg tablet TAKE 1 TABLET BY MOUTH two (2) times a day active Not Available Not Available No t Available True Comfort Lancet 30 gauge USE TO TEST FINGER STICK BLOOD SUGAR 3 (THREE) TIMES A DAY BEFORE MEALS AND AT BEDTIME active Not Available Not Available N ot Available Daily-Usha (with folic acid) 400 mcg tablet TAKE 1 TABLET BY MOUTH ONCE DAILY active Not Available Not Available No t Available Vitals Date Recorded Oxygen saturation Body temperature Respiratory rate Heart rate Systolic And Diastolic Provider Name and Address Organization Details Last Updated DateTime 5 97 % 97.9 [degF] 16 /min 94 /min 186/98 mm[Hg] Not Available [facility] 5 18:56:06 Date Recorded Heart rate Oxygen saturation Body height Body weight Respiratory rate Body temperature Systolic And Diastolic Provider Name and Address Organization Details Last Updated DateTime 4 98 /min 98 % 177.8 cm 168153. 24 g 18 /min 98 [degF] 153/91 mm[Hg] Not Available [facility] 4 16:12:21 Date Recorded Heart rate Oxygen saturation Respiratory rate Body temperature Systolic And Diastolic Provider Name and Address Organization Details Last Updated DateTime 5 111 /min 98 % 18 /min 99.5 [degF] 210/140 mm[Hg] Not Available [facility] 5 18:52:04 Social History None recorded. Functional Status None recorded. Mental Status None recorded. Family History Nothing Reported. Medical History No medical history recorded. Past Encounters Encounter ID Performer Location Encounter Start Date Encounter Closed Date Diagnosis/Indication Diagnosis SNOMED-CT Code Diagnosis ICD10 Code Diagnosis IMO Codes Diagnosis Note Delicia Lutz MD [facility] - [address] [phone] 04/18/2023 16:12:19 04/19/2023 17:20:20 Uncontrolled type 2 diabetes mellitus [id number] E11.65 Evaluation in the field was performed by my wheel press operator colleague, as noted above, I provided real-time direction and supervisio n for this visit. 32yo M PMHx T2DM, HTN, and behaviora l problems , visit requested today for wellness check. Pt reports he was discharged from hospital yesterday and that is why VNA has not been coming. He does not have all of his psych meds but has psych appt tomorrow which he will attend to get refills. Pt denies any complaints at time of visit. VS wnl, POC electrolyt es w/ glucose 93 and rest without sig abnormalit ies. Exam notable for elevated mood but without e/o psychosis, denies SI/HI. Given lack of access to psych diagnoses, discharge summaries, and informatio n from requestor very limited ability for us to provide more guidance than to encourage f/up with regular care team. We discussed the diagnostic uncertaint y of home visits and the risk associated with this. In this case, the patient and I felt this to be an acceptable and reasonable amount of risk given the benefit of avoiding an ED visit. We discussed the need to seek care urgently/e mergently in the setting of any new or worsening serious symptoms, shortness of breath, cough, chest pain, fever. [id number] Michael Schwartz MD [facility] - [address] [address] 02/27/2024 18:56:04 02/28/2024 22:23:25 Infectious gastroenteritis [id number] A09 As noted, we were called to see this patient regarding concerns of acute gastroente ritis following ingestion of some bad collins. Evaluation in the field was performed by my wheel press operator colleague, as noted above, I provided real-time direction and supervisio n for this visit. The evaluation revealed reassuring labs, VS notable for HTN and high HR, both seemingly in setting of mildly agitated patient, and a story fairly classic for ingestion of contaminat ed food with preformed toxin. Impression :Typical food poisoning in a patient without other worrisome features, likely to experience quick recovery but currently feeling symptomati c and dehydrated . Plan:Suppo rtive treatment - fluids and zofran as orderedRea ssurance Primary care, considerch addie in call this week. Dispositio n: We discussed the diagnostic uncertaint y of home visits and the risk associated with this. In this case, the patient and I felt this to be an acceptable and reasonable amount of risk given the benefit of avoiding an ED visit. We discussed the need to seek care urgently/e mergently in the setting of any new or worsening serious symptoms, particular ly LH, hematemesi s. [id number] Ignacia Felipe MD [facility] ED Medical [address] [address] 08/18/2024 18:52:02 08/18/2024 23:16:44 Nausea [id number] R11.0 34190 Health Concerns Section Related Observation LastModified by Organization Detai ls LastModified Time None Recorded Concern Status LastModified by Organization Details LastModified Time None Recorded Advance Directives Directive None Recorded Payers Insurance Date Sequence Insurance Name Policy Number Policy Snow Covered Member ID Snow Member ID Guarantor Name 08/18/2024 1 [facility] - DOS ON OR AFTER 2022 - DUAL ELIGIBLE - [employer] OPTIONS AND ONE CARE (MEDICARE REPLACEMENT/A DVANTAGE - HMO) Stef Lopez [id number] Stef Lopez Notes Date Note Type Note Provider Name and Address Organization Details Recorded Time 04/18/2023 text/html HPI: BHN reporting mbr to have blood sugar checked w/o medication and for vitals o be checked>feeling shakey and not himself ...................... ...................... ...................... ...................... ...................... ...................... ......... [facility] Nurse Triage Notes (Nelida Stearns): Comments: 32 year old member w/ PMH: DM, HTN (Norvasc), Behavioral issues. Allergies to Sulfa, Clonidine. NAFISA Robertsya w/ member and calling [facility], he has been without his meds and the VNA services have not shown up for 2 days. Asked member to check POC glucose, which was 135. [facility] states member has been in/out of hospital for medical and behavioral problems. Requesting an [facility] visit. Dori HOOKER ...................... ...................... ...................... ...................... ...................... ...................... ......... [facility] Note From Shmuel Kelly: Pt sts he returned home from [facility] yesterday where he was being treated for psychiatric issues. VNA requested visit. Pt sts he felt a little shaky this morning but feels ok now. Pt has psych f/u tomorrow. Pt is alert, NAD. VSS. Afebrile. Non focal neuro exam. Normal gait. Lungs CTA. Benign ABD exam. Unremarkable POC labs. Pt encouraged to stay well hydrated and to keep tomorrows appointment. ...................... ...................... ...................... ...................... ...................... ...................... ......... Disposition: Fulfilled Delicia Lutz MD [address] [place] [address],[address], [place], [phone], [employer] 04/18/2023 17:23:43 02/27/2024 text/html [facility] Nurse Triage Notes (Candace Hurley - RN): Patient Reports: Vague abdominal pain greater than 24 hours; Diarrhea no blood in stool; Nausea with or without vomiting Denies: Sharp focal or diffuse abdominal pain Vomiting blood/coffee ground material Bloating, jaundice new onset with pain Nausea and vomiting greater than 2 hours with abdominal pain Tearing pain that radiates to back Food Impaction Constipation Inability to tolerate foods, fluids or daily medications Chief Complaints: Abdominal pain PMH: Severe Persistent Mental Illness (SPMI), Hypertension PMH Reviewed at 02/27/2024 - :33 Allergies Reviewed at 02/27/2024 - :33 Comments: [employer] verified the name//address and phone number. Pt calling for abd pain for since this am. He was using his sleep apnea machine and caused the pain. He has nausea, no vomiting. He went to the ER yesterday but then they d/c him. He is unsure what they did for him for testing. He has had loose stool that started today. He has been able to eat and drink. He has never had this in the past. Pt has allergies but unsure what they are . Pt did not give full details became frustrated with the bed placement coordinator and started speaking [facility]. Pt is unsure why he is using a CPAP machine as he says he does not have ESHA Possible hyper ventilation , during sleep Education provided on the response time and the Patient was advised to monitor reported s/s and seek emergency treatment if needed [facility] Organization Information for Shmuel Kelly [employer] Legal Name: [facility] Address: [address] [place] [address], [place] [address], Die Finisher: Galileo Anderson MD CLIA No.: [id number] [facility] POC Test Results from Shmuel Kelly - [facility] (18:41:37) pH: 7.37 pH units pCO2: 58.8 mmHg pO2: 26.3 mmHg Na: 142 mmol/L K: 3.7 mmol/L iCa: 1.14 mmol/L Cl: 101 mmol/L TCO2: 33.2 mEq/L Hct: 45 % Hb: 15.1 g/dL Glu: 106 mg/dL Lac: 1.14 mmol/L Cr: 0.86 mg/dL BUN: 15 mg/dL A Rapid COVID antigen (18:41:38) COVID: - Rapid influenza antigen (18:41:39) Flu: - ...................... ...................... ...................... ...................... ...................... ...................... ......... [facility] Note From Shmuel Kelly: This 33-year-old male with a history including but not limited to depression and hypertension requested a visit today to address more than 10 episodes of watery diarrhea since last night, nausea and one episode of vomiting which he believes is directly related to spoiled mayonnaiseeating some potentially six hours earlier. Patient also endorses some mild epigastric discomfort. Patient denies any chest pain, shortness of breath, fevers. Patient states he is not had anything to eat or drink today. Patient presents awake and alert, in no acute distress. He is mildly hypertensive but he states his baseline, vital signs are otherwise stable and he is afebrile. Nonfocal neurological exam. Normal gait. Lungs are clear throughout auscultation. Epigastric region is mildly tender to palpation, abdomen is otherwise benign. Rapid COVID and flu testing are both negative. POC labs are unremarkable. I treated this patient with lactated ringers 1 L IV, ondansetron 4 mg IVP and loperamide 4 mg. I provided education on the importance of staying well hydrated and to follow up with his primary care if symptoms persist. I instructed him to present to the emergency department for any new or worsening severe symptoms such as chest pain, severe shortness of breath, black/bloody stools or emesis, high fever. The patient was given the opportunity to ask questions and is agreeable to this plan. ...................... ...................... ...................... ...................... ...................... ...................... ......... [facility] Consulted: Taqueria Schwartz ...................... ...................... ...................... ...................... ...................... ...................... ......... Disposition: Fulfilled Michael Schwartz MD [address] [place] [address],[address], [place], [phone], [employer] 02/28/2024 21:00:31 08/18/2024 text/html [facility] Nurse Triage Notes (Monika Sanders): Reason For Request: BP 150/89, Body aches - headache. Patient Reports: Cough Denies: Increased work of breathing/labored with or without fever Unable to speak in full sentences without distress Discoloration of skin -cyanosis Needs to sleep sitting up, can t catch breath Shortness of breath in setting of confusion Chief Complaints: Fever, Nausea / Vomiting PMH: Severe Persistent Mental Illness (SPMI), Hypertension PMH Reviewed at 08/18/2024: Allergies Reviewed at 08/18/2024: Comments: VNA calling for member to report fever, chills, body aches, and vomiting. Symptoms started a few days ago. Complaining of cough as well at night. Denies SOB. Denies chest pain. Has not taken any over the counter medication. Denies abd pain. Requesting visit for assessment. 34 y.o male complains of Fever, Nausea / Vomiting I provided information on the mobile health provider response time and advised the patient and/or caregiver to monitor reported signs and symptoms. I discussed the warning signs of when to seek emergency care. Samuel Sanders RN [facility] Organization Information for [employer] Legal Name: [employer]. Address: [address] [place] [address], Die Finisher: Yoni Wagoner MD [place] No.: [id number] [facility] POC Test Results from [facility] Blood Glucose Measurement (18:47:28) Blood Glucose: 110 mg/dL Rapid COVID antigen (18:52:04) COVID: - Attachments uploaded as part of this test result can be found under Documents section. Rapid influenza antigen (18:52:06) Flu: - Attachments uploaded as part of this test result can be found under Documents section. EKG (19:05:53) EKG test performed. Attachments uploaded as part of this test result can be found under Documents section. ...................... ...................... ...................... ...................... ...................... ...................... ......... Channel Layer Note From Fern Sellers: Pt answered the door, A/O x3. Pt is ambulating w/o limp or assistance. Pt is pink/warm/dry and not in any immediate respiratory distress. Pt states that he was in the hospital for 2 weeks during a mental health crisis and was released on Monday (5 days ago). While in the hospital, pt did not receive his ozempic. On Monday (3 days ago) pt began taking his ozempic once again. Yesterday began to suffer from nausea/vomiting and diarrhea. Today pt states he vomited once but denies diarrhea. When asked if pt had these same symptoms when he first started his ozempic medication 4 months ago, pt replied he did. Pt denies any CP, [...] was noted. Pt denies any abdominal pain. [facility] contacted and ordered an EKG. Results were uploaded. Pt was then ordered 4mg sublingual zofran. Pt was advised that if he experiences increased vomiting and/or diarrhea to contact his PCP. If pt experiences any CP, SOB, dizziness or fever to call 911. Call was then cleared. ...................... ...................... ...................... ...................... ...................... ...................... ......... [facility] Consulted: Ignacia Felipe ...................... ...................... ...................... ...................... ...................... ...................... ......... Disposition: Fulfilled Ignacia Felipe MD [address], [place], [address], [place] - AMANDA PARADA 08/18/2024 21:15:19
--- OUTSIDE RECORDS SUMMARY | 2025-01-26 12:36 | XMS_ITS ---
Author Name [facility] Organization Unknown Results Test Name/Text Value Interpretation Date Range Source [place] SerPl-sCnc 0.2 mEq/L Below low normal 04/08/2024 0.6 - 1.2 [facility] Glucose Bld-mCnc 87.0 mg/dL Normal 04/07/2024 70 - 199 C [facility] Est. average glucose Bld gHb Est-mCnc 120.0 mg/dL Normal 04/07/2024 [facility] HbA1c MFr Bld 5.8 % Above high normal 04/07/2024 - 5.7 [facility] Sodium SerPl-sCnc 138.0 mmol/L Normal 04/03/2024 135 - 14 5 [facility] Creat SerPl-mCnc 1.16 mg/dL Normal 04/03/2024 0.7 - 1.3 C [facility] Chloride SerPl-sCnc 100.0 mmol/L Normal 04/03/2024 98 - 1 07 [facility] eGFRcr SerPlBld CKD-EPI 2020 84.0 mL/min/1.73m2 Normal 04/03/2024 - [facility] Glucose SerPl-mCnc 96.0 mg/dL Normal 04/03/2024 70 - 199 [facility] Calcium SerPl-mCnc 9.5 mg/dL Normal 04/03/2024 8.4 - 10.2 [facility] CO2 SerPl-sCnc 34.0 mmol/L Above high normal 04/03/2024 24 - 32 [facility] Anion Gap SerPl-sCnc 4.0 Below low normal 04/03/2024 5 - 14 [facility] BUN SerPl-mCnc 13.0 mg/dL Normal 04/03/2024 9 - 20 [facility] Potassium SerPl-sCnc 4.0 mmol/L Normal 04/03/2024 3.5 - 5 .1 [facility] BUN/Creat SerPl 11.2 Below low normal 04/03/2024 12 - 2 0 [facility] D dimer DDU PPP-mCnc <150.0 ng/mL DDU Normal 04/03/2024 - 231 [facility] MCV RBC Auto 84.5 FL Normal 04/03/2024 78 - 100 [facility] Eosinophil # Bld Auto 0.19 K/mcL Normal 04/03/2024 0 - 0. 5 [facility] RBC # Bld Auto 5.11 M/mcL Normal 04/03/2024 4.7 - 6 [facility] Lymphocytes/leuk NFr Bld Auto 16.7 % Below low normal 04/03/2024 20 - 48 [facility] PMV Bld Auto 9.5 FL Normal 04/03/2024 7.4 - 11.4 [facility] Hct VFr Bld Auto 43.2 % Normal 04/03/2024 40 - 54 [facility] MCHC RBC Auto-mCnc 30.1 g/dL Below low normal 04/03/2024 32 - 36 [facility] RDW RBC Auto-Rto 13.3 % Normal 04/03/2024 12.1 - 17.7 [facility] MCH RBC Qn Auto 25.4 pcg Normal 04/03/2024 25 - 33 [facility] Monocytes/leuk NFr Bld Auto 8.1 % Normal 04/03/2024 2 - 12 [facility] Eosinophil/leuk NFr Bld Auto 2.0 % Normal 04/03/2024 0 - 6 [facility] Neutrophils/leuk NFr Bld Auto 72.6 % Normal 04/03/2024 44 - 74 [facility] Hgb Bld-mCnc 13.0 g/dL Below low normal 04/03/2024 13.5 - 18 [facility] Lymphocytes # Bld Auto 1.56 K/mcL Normal 04/03/2024 1 - 3.2 [facility] Basophils # Bld Auto 0.03 K/mcL Normal 04/03/2024 0 - 0.2 [facility] Neutrophils # Bld Auto 6.77 K/mcL Normal 04/03/2024 1.8 - 7.8 [facility] WBC # Bld Auto 9.3 K/mcL Normal 04/03/2024 4 - 10.5 [facility] Basophils/leuk NFr Bld Auto 0.3 % Normal 04/03/2024 0 - 2 [facility] Platelet # Bld Auto 318.0 K/mcL Normal 04/03/2024 150 - 4 50 [facility] Monocytes # Bld Auto 0.76 K/mcL Normal 04/03/2024 0 - 0.8 [facility] HCO3 BldA-sCnc 28.3 mmol/L Above high normal 04/03/2024 22 - 26 [facility] pCO2 BldA 63.0 mmHg Above high normal 04/03/2024 35 - 45 C [facility] pH BldA 7.32 pH Below low normal 04/03/2024 7.35 - 7.45 [facility] Hemant index Bld+IhG-Rto 40.0 Normal 04/03/2024 [facility] Base excess BldA Calc-sCnc 4.5 mmol/L Above high normal 04/03/2024 0 - 2 [facility] pO2 BldA 72.0 mmHg Below low normal 04/03/2024 80 - 105 [facility] SaO2 % BldA 96.4 % Normal 04/03/2024 95 - 98 [facility] History of Medication Use Medication Directions Dispensed Refills Start Date End Date Stat lithium 600 mg capsule Take 1 capsule (600 mg total) by mouth at bedtime. 04/09/2024 04/09/2024 active melatonin 10 mg tablet Take 1 tablet (10 mg total) by mouth at bedtime. 04/09/2024 active naloxone (NARCAN) 4 mg/0.1 mL nasal spray Administer 1 each (4 mg total) into affected nostril(s) if needed for opioid reversal. Give 4 mg (1 spray) into one nostril. May repeat every 2-3 minutes if needed, alternating nostrils, until medical assistance becomes available. 04/09/2024 active polyvinyl alcohol-povidone (Artificial Tears,pvalch-povid,) 0.5-0.6 % opthalmic solution Administer 2 drops into both eyes 2 (two) times a day. 04/08/2024 active melatonin tablet 10.5 mg 10.5 mg (rounded from 10 mg), oral, Nightly, First dose (after last modification) on Mon04/06/24 at 2100 04/07/2024 active traZODone (DESYREL) 100 mg tablet Take 1 tablet (100 mg total) by mouth at bedtime as needed for sleep. 04/06/2024 active lamoTRIgine (LaMICtal) 25 mg tablet Take 1 tablet (25 mg total) by mouth at bedtime. 04/05/2024 active acetaminophen (TYLENOL) tablet 650 mg 650 mg, oral, Every 6 hours PRN, mild pain, Starting on Mon04/03/24 at 0123 04/03/2024 active albuterol 2.5 mg /3 mL (0.083 %) nebulizer solution 2.5 mg 2.5 mg, nebulization, Every 6 hours PRN, wheezing, Starting on Mon04/03/24 at 0136 04/03/2024 active amLODIPine (NORVASC) tablet 10 mg 10 mg, oral, Daily, First dose on Mon04/03/24 at 0900 04/03/2024 active calcium carbonate (TUMS) chewable tablet 1,000 mg 1,000 mg, oral, 4 times daily PRN, indigestion, heartburn, Starting on Mon04/03/24 at 0126, Ordered as calcium carbonate. 500 mg calcium carbonate = 200 mg elemental calcium. 04/03/2024 active ferrous sulfate tablet 325 mg 325 mg, oral, Every other day, First dose on Mon04/03/24 at 0900, Take on an empty stomach with a full glass of water, at least 1 hour before or 2 hours after a meal. May be taken with food if causes an upset stomach. Avoid taking antacids or antibiotics within 2 hours before or after. Ordered as f 04/03/2024 active gabapentin (NEURONTIN) capsule 600 mg 600 mg, oral, 3 times daily, First dose on Mon04/03/24 at 0900 04/03/2024 active haloperidoL (HALDOL) tablet 10 mg 10 mg, oral, Nightly, First dose on Mon04/03/24 at 0200 04/03/2024 active hydrOXYzine HCL (ATARAX) tablet 50 mg 50 mg, oral, Every 6 hours PRN, anxiety, Starting on Mon04/03/24 at 0123 04/03/2024 active lithium (LITHOBID) CR tablet 600 mg 600 mg, oral, Nightly, First dose on Mon04/03/24 at 0200, Do not crush, chew, or split. 04/03/2024 active losartan (COZAAR) tablet 25 mg 25 mg, oral, Daily, First dose on Mon04/03/24 at 0900 04/03/2024 active magnesium hydroxide (MILK OF MAGNESIA) 400 mg/5 mL suspension 30 mL 30 mL, oral, Daily PRN, constipation, Starting on Mon04/03/24 at 0124, 1st line for treatment of constipation - give scheduled if no bowel movement in past 24 hours 04/03/2024 active metFORMIN (GLUCOPHAGE) tablet 1,000 mg 1,000 mg, oral, 2 times daily with meals, First dose on Mon04/03/24 at 0800 04/03/2024 active multivitamin tablet 1 tablet 1 tablet (1 each), oral, Daily, First dose on Mon04/03/24 at 0900 04/03/2024 active nicotine (NICODERM CQ) 21 mg/24 hr patch 1 patch 1 patch, transdermal, Administer over 24 Hours, Daily, First dose on Mon04/03/24 at 0900 04/03/2024 active QUEtiapine (SEROquel) tablet 50 mg 50 mg, oral, Every 6 hours PRN, Agitation, Starting on Mon04/03/24 at 0126 04/03/2024 active revefenacin (YUPELRI) 175 mcg/3 mL nebulizer solution 175 mcg 175 mcg, nebulization, Daily, First dose on Mon04/03/24 at 0800 04/03/2024 active Daily-Usha, with folic acid, 400 mcg tablet Take 1 tablet by mouth 1 (one) time each day. 03/21/2024 active benztropine (COGENTIN) 1 mg tablet Take 1 tablet (1 mg total) by mouth 2 (two) times a day. 02/22/2024 04/09/2024 active haloperidoL (HALDOL) 10 mg tablet Take 1 tablet (10 mg total) by mouth at bedtime. 02/22/2024 04/09/2024 active hydrOXYzine pamoate (VISTARIL) 50 mg capsule Take 1 capsule (50 mg total) by mouth 3 (three) times a day if needed for anxiety. 02/22/2024 04/09/2024 active prazosin (MINIPRESS) 5 mg capsule Take 2 capsules (10 mg total) by mouth at bedtime. 02/22/2024 04/09/2024 active traZODone (DESYREL) tablet 50 mg 50 mg, oral, Nightly PRN, sleep, Starting on Mon04/03/24 at 0125 02/22/2024 04/09/2024 aborted amLODIPine (NORVASC) 10 mg tablet 1 tablet (10 mg total) 1 (one) time each day at the same time. 02/22/2024 active docusate sodium (COLACE) capsule 100 mg 100 mg, oral, Daily, First dose on Mon04/03/24 at 0900 02/22/2024 active losartan (COZAAR) 25 mg tablet Take 1 tablet (25 mg total) by mouth 1 (one) time each day. 02/22/2024 active pantoprazole (PROTONIX) EC tablet 40 mg 40 mg, oral, Every morning before breakfast, First dose on Mon04/03/24 at 0700, Do not crush, chew, or split. 02/22/2024 active nicotine polacrilex (NICORETTE) [address] 1 each (2 mg total) into mouth between cheek and gum every 2 (two) hours if needed for smoking cessation. 01/05/2024 04/09/2024 active ferrous sulfate 324 mg (65 mg elemental iron) EC tablet Take 1 tablet (324 mg total) by mouth every other day. active metFORMIN XR (GLUCOPHAGE-XR) 500 mg 24 hr tablet Take 2 tablets (1,000 mg total) by mouth 2 (two) times a day. active Spiriva Respimat 1.25 mcg/actuation inhalation spray Inhale 2 puffs by mouth 1 (one) time each day at the same time. active Allergies Allergen Reaction Severity Comment Documented Date Source Statu s SULFA (SULFONAMIDE ANTIBIOTICS) 04/02/2024 [facility] active MILK NAUSEA AND VOMITING 10/02/2020 [facility] active CLONIDINE DISORIENTATED [facility] LISINOPRIL COUGH [facility] Problems Problem Status Onset Date Problem Type Date of Resoluti on Source HLD (hyperlipidemia) active 2024-04-03 ProblemAct [facility] Schizoaffective disorder, bipolar type active 2024-04-03 ProblemAct [facility] GERD (gastroesophageal reflux disease) active 2024-04-03 ProblemAct [facility] Type 2 diabetes mellitus without complication, without long-term current use of insulin active 2024-04-03 ProblemAct [facility] Cannabis use disorder, mild, abuse active 2024-04-03 ProblemAct [facility] Morbid obesity active 2024-04-03 ProblemAct [facility] PTSD (post-traumatic stress disorder) active 2024-04-03 ProblemAct [facility] Iron deficiency anemia active 2024-04-03 ProblemAct [facility] MORRIS (generalized anxiety disorder) active 2024-04-03 ProblemAct [facility] COPD (chronic obstructive pulmonary disease) active 2024-04-03 ProblemAct [facility] HTN (hypertension) active 2024-04-03 ProblemAct [facility] Alcohol use disorder, moderate, dependence active 2024-04-03 ProblemAct [facility] ESHA (obstructive sleep apnea) active 2024-04-03 ProblemAct [facility] Heart failure active 2024-04-03 ProblemAct [facility] Encounters Encounter Type Encounter Reason Primary Diagnosis Location Date Inpatient Generalized anxiety disorder Generalized anxiety disorder [facility] 04/03/2024 Care Team Organization Name Specialty Phone Email Start Date End Da te [facility] PHYSICIAN Primary Care 05/01/2024 [facility] NO PHYSICIAN Primary Care 04/03/2024
--- OUTSIDE RECORDS SUMMARY | 2025-01-26 12:36 | XMS_ITS | Clinical Summary ---
Author Organization [facility] Address [address] [place] [id number] Phone Care Team Providers Care Material Flow Engineer Name Role Phone Pcp, Unknown Primary [...] EDT) SODIUM 138 133 - 146 mmol/L [facility] CHLORIDE 99 96 - 108 mmol/L [facility] POTASSIUM 3.5 3.3 - 5.1 mmol/L [facility] CO2 30 21 - 35 mmol/L [facility] BUN 12 6 - 19 mg/dL [facility] CREATININE 0.90 0.5 - 1.5 mg/dL [facility] GLUCOSE 91 70 - 99 mg/dL [facility] CALCIUM 9.8 8.4 - 10.3 mg/dL [facility] EGFR 116 >59 mL/min/1.7 3m2 [facility] Comment:Estimated glomerular filtration rate calculated using the CKD-EPI refit equation. ANION GAP 13 10 - 20 mmol/L [facility] Blood 07/20/2021 1:43 PM EDT 07/20/2021 2:13 PM EDT us Alex Wolf MD LAB BLOOD BKR ORD ERABLES Final Result [facility] [address] [place] [address] from Last 3 Months or Most Recently Relevant to Health Maintenance [facility] MEDICARE REPLACEMENT [facility] MEDICARE PART A & B [facility] MEDICARE REPLACEMENT [facility] MEDICARE PART A & B [facility] C[facility] MEDIC[facility]PL[facility] MEDICARE [facility]PLACEMENT [facility] MEDIC[facility]PLACEMENT [facility] MEDICARE PART A & B [facility] MEDICARE [facility]PLACEMENT [facility] MEDICARE PART A & B [facility] CARE MEDICARE [facility]PLACEMENT [facility] MEDICARE PART A & B [facility] MEDICARE REPLACEMENT [facility] MEDICARE PART A & B [facility] MEDICARE REPLACEMENT Care Teams Material Flow Engineer Relationship Specialty Start Date End Date Pcp, Unknown PCP - General 07/16/21 Additional Source Comments The information contained in this document represents components of the legal health record. It is not the complete legal health record.[facility]
--- OUTSIDE RECORDS SUMMARY | 2025-01-26 12:36 | XMS_ITS | Encounter Summary ---
Author Organization [facility] Address [address] [place] [id number] Phone Care Team Providers Care Medical Equipment Technician Name Role Phone Pcp, Unknown Primary Care Provider Unavailabl e Encounter Details Date Type Department Care Team (Late st Contact Info) Description 07/20/2021 Procedure [facility], Ct Scan - [address] [address] Social History Tobacco Use Types Packs/Day Years [...] 12:36 PM EDT Suzi Lee RN * [place] Suicide Severity Rating Scale (Screener/Recent Self-Report) Question [...] on filedocumented in this encounter Care Teams Medical Equipment Technician Relationship Specialty Start Date End Date Pcp, Unknown PCP - General 07/16/21 documented as of this encounter Additional Source Comments The information contained in this document represents components of the legal health record. It is not the complete legal health record.[facility]
[2025-01-26 12:56] LABS: Glucose, Whole Blood 103 mg/dL (60-115)
[2025-01-26 12:57] LABS: MANUAL DIFF FLAG NO
[2025-01-26 13:07] LABS: Hematocrit 40.2 % (42.0-52.0); Hemoglobin 12.5 g/dl (14.0-18.0); Imm Gran Abs Auto 0.04 X10*3/uL (0.00-0.03); Imm Gran Pct Auto 0.5 % (0.0-0.4); Lymphocytes Absolute Auto 1.3 X10*3/uL (1.2-4.9); Mean Corpuscular HGB Conc 31.1 g/dl (31.0-36.0); Mean Corpuscular Hemoglobin 25.7 pg (27.0-33.0); Mean Corpuscular Volume 82.5 fL (80.0-98.0); NRBC Abs Auto 0.000 X10*3/uL (0.0-0.012); NRBC Pct Auto 0.0 /100WBC (0.0-0.2); Platelet Count 256 X10*3/uL (160-400); Red Blood Count 4.87 X10*6/uL (4.60-5.80); White Blood Count 7.7 X10*3/uL (4.8-10.8)
[2025-01-26 13:13] LABS: Alanine Aminotransferase 61 U/L (0-40); Albumin Level 4.5 g/dL (3.5-5.0); Alkaline Phosphatase 91 U/L (39-117); Anion Gap 13 (12-20); Aspartate Amino Transferase 77 U/L (5-37); Blood Urea Nitrogen 12 mg/dL (9-16); Calcium 9.0 mg/dL (8.4-10.2); Carbon Dioxide 25 mmol/L (22-29); Chloride 108 mmol/L (96-108); Creatinine Clr Calc Pharmacy 216.0; Estimated Glomerular Filt Rate > 60; Magnesium 1.9 mg/dL (1.6-2.6); Potassium 3.9 mmol/L (3.3-5.1); Sodium 142 mmol/L (135-145); Total Protein 7.4 g/dL (6.5-8.0)
[2025-01-26 13:31] LABS: Appearance Urine Clear; Glucose Urine UA Negative (Negative); PH 7.5 (5.0-9.0); Specific Gravity - Urine 1.025 (1.005-1.025); UMIC TRIGGER UACC YES
[2025-01-26 13:38] VITALS: PULSE 100; RESP 18; O2SAT 97
[2025-01-26 13:41] LABS: Cannabinoid Screen Urine Not Detected (Not Detect)
[2025-01-26] MEDS: Albuterol Sulfate 90 MCG 8 GM INHALER 2 PUFF INHALE (13:42)
[2025-01-26 14:12] LABS: Lipase 7 U/L (8-78)
[2025-01-26 15:42] VITALS: BP 142/82; PULSE 98; RESP 16; TEMP 36.8; O2SAT 96
[2025-01-26] MEDS: iohexoL 350 MG/ML 100 ML INFUS..BTL IV (19:37)
[2025-01-26 20:52] VITALS: BP 126/88; PULSE 101; RESP 16; TEMP 36.6; O2SAT 91
--- NOTE | 2025-01-27 | ECG_ITS ---
Test Reason : sob Blood Pressure : */* mmHG Vent. Rate : 82 BPM Atrial Rate : 82 BPM P-R Int : 162 ms QRS Dur : 88 ms QT Int : 368 ms P-R-T Axes : 33 19 41 degrees QTcB Int : 429 ms Normal sinus rhythm Normal ECG When compared with ECG of 06-Jan-2025 17:08, No significant change was found Referred By: Ash Miller Electronically Signed By: LEDY WEINBERG MD
[2025-01-27 06:26] VITALS: BP 159/84; PULSE 91; RESP 12; TEMP 36.8; O2SAT 78
--- NOTE | 2025-01-27 06:26 | PC.NURSE ---
pt SPO2 noted to be 78% on room air, pt placed on 3L via NC w/ improvement to 98%
--- NOTE | 2025-01-27 08:13 | PC.RT ---
placed on home cpap with 3 l 02. sats 97% hr 93. pt is a psych pt readmitted today. pt has angie and also requiring 3 l 02 on last admission when on M5. pt now in rm 15 Ed with a sitter. no resp distress pt just wants to sleep.
[2025-01-27 10:58] VITALS: BP 153/73; PULSE 88; O2SAT 95
--- NOTE | 2025-01-27 10:59 | MHC.EDTECH ---
pt was placed n cpap, mask fit problems. this tech has repositioned mask varies time x5 rn/pt/rt aware. pt requested to remove cpap/now on NC02
--- NOTE | 2025-01-27 11:41 | PC.NURSE ---
Patient sleeping at this time. Respirations even/unlabored. 3L oxygen via nasal cannula continues. Sitter present. No acute distress. Care ongoing by this RN.
--- NOTE | 2025-01-27 12:43 | PC.NURSE ---
Pharmacist at bedside speaking with patient. Sitter present.
--- NOTE | 2025-01-27 12:50 | PHA.MEDREC ---
Pharmacy Consult ? Medication Reconciliation Pharmacy has reviewed the medication reconciliation completed by nursing. Pt was recently admitted at [facility]. Pt was started on clozapine, has not taken this outpatient, or picked up rx written 01/25 for 7 days. Pt's last dose inpatient was 01/23 @2673.
--- NOTE | 2025-01-27 14:34 | PC.NURSE ---
CV signed. Plan to admit to M5.
[2025-01-27 15:00] VITALS: BP 170/91; PULSE 99; RESP 18; TEMP 36.7; O2SAT 92
--- NOTE | 2025-01-27 18:56 | PC.ADMIT ---
Patient is a 34 year old, Japanese, Turkmen and Montserratian speaking male who was admitted to at 15:10 from the ED on a CV for treatment of Major Depression, Anxiety Disorder, and Schizoaffective Disorder. Stef was alert and oriented x4 and reported bringing himself to the ED due to an increase of suicidal ideation and command auditory hallucinations to kill/hurt himself since discharge from on 01/24. He also presented to the ED for concerns of hematuria for which he was medically cleared and admitted to .? Patient reports feeling anxious and depressed following the receipt of upsetting news that ?I almost have cancer? about which this screen writer was unable to clarify. Patient reported ?the outside is for real? and that he would like to relearn his coping mechanisms of smoking cigarettes and marijuana as well as drinking. Patient denied SI/HI and VH at the time of assessment, however endorsed the AH of commands to hurt/kill himself which he reported he was able to block out.? He was pleasant and engaged in the interview with his thoughts and expressions logical and relevant to the conversation. Patient?s tox screen was negative. He reports feeling restless and unable to sit still. He is on 5 minute checks while sleeping while using the CPAP machine.
[2025-01-27 20:00] VITALS: BP 159/94; PULSE 113; RESP 20; TEMP 36.4; O2SAT 95
[2025-01-28 08:00] VITALS: BP 135/91; PULSE 97; RESP 16; TEMP 36.4; O2SAT 93
[2025-01-28 08:52] LABS: Alanine Aminotransferase 53 U/L (0-40); Albumin Level 4.3 g/dL (3.5-5.0); Alkaline Phosphatase 86 U/L (39-117); Aspartate Amino Transferase 52 U/L (5-37); Blood Urea Nitrogen 12 mg/dL (9-16); Calcium 9.3 mg/dL (8.4-10.2); Creatinine Clr Calc Pharmacy 183.5; Estimated Glomerular Filt Rate > 60; Total Protein 7.1 g/dL (6.5-8.0)
[2025-01-28 09:03] LABS: Anion Gap 10 (12-20); Carbon Dioxide 32 mmol/L (22-29); Chloride 104 mmol/L (96-108); Potassium 4.3 mmol/L (3.3-5.1); Sodium 142 mmol/L (135-145)
[2025-01-28] MEDS: Nicotine 21 MG PATCH.TD24 TRANSDERMA (09:17)
[2025-01-28 09:18] VITALS: BP 136/88
[2025-01-28 09:19] VITALS: BP 136/88; PULSE 120
[2025-01-28] MEDS: Metoprolol Succinate ER 50 MG TAB.ER.24H PO (09:19)
[2025-01-28] MEDS: Ammonium Lactate 12 % Lotion 226 GM BOTTLE 1 APPL TOPICAL (09:20)
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
--- NOTE | 2025-01-28 13:52 | HO.PM.IMCN ---
History of Present Illness Data of Consult Service Date: 01/28/25 Primary Care Provider: Unknown Physician HPI Reason for consult: Medical consult 34-year-old male with past medical history of nonalcoholic fatty liver disease, GERD, anxiety, schizoaffective disorder, depression, hypertension, type 2 diabetes and alcohol use disorder presents to the ED due to persistent left-sided abdominal pain and concerns of blood in his urine. Patient was reportedly told that 1 of his [facility] providers total that he has cancer and this has caused him extreme distress along with increased depression anxiety, this resulted in passive suicidal thoughts without a plan. In the ED his labs were without leukocytosis, he has a stable anemia with a hemoglobin of 12.4 and hematocrit 40.2. Mild transaminitis likely due to his NAFLD, no electrolyte abnormalities, in his urine with no blood or bacteria. Tox screen was negative. Patient did have a CT of his abdomen and pelvis which revealed a 6 mm pulmonary nodule of the left lung base with recommendations for follow up CT. Patient smokes both marijuana and cigarettes, now has a NRT patch on. On exam he reports that his abdominal pain has resolved, he feels well. Review of Systems Review of Systems: Denies any shortness of breath, chest pain, dizziness, lightheadedness, abdominal pain or discomfort, nausea vomiting or diarrhea PMFSH Medical History Cannabis use disorder Alcohol use disorder Morbid obesity Medical clearance for psychiatric admission Schizoaffective disorder Diabetes HTN (hypertension) Social History Household Members: None Housing: Apartment Do you presently have visiting nurse or other home services: Yes (FORGESMITH and RN to help with medications) Alcohol intake: current Alcohol intake frequency: 3 or more drinks per day Alcohol type: hard liquor Patient Tobacco Use Status: Current everyday Tobacco user Tobacco use type: Cigarette Cigarette Packs Per Day: 2 Cigarettes Per Day: 40.0 Years Smoked: 15 Smoked in Last 30 Days: Yes e-Cigarette/Vaping Use: Currently Using Frequency of e-Cigarette/Vaping Use: 1 vape every 2 weeks Patient Given Instructions on How to Stop Smoking: No Second Hand Smoke Exposure: No Use of substances other than those prescribed or required for medical reasons: No Substance Use Type: Marijuana Currently Displaying Signs/Symptoms of Drug Intoxication Withdrawal: No Have you been hit, kicked, punched, or otherwise hurt by someone within the past year? If so, by whom?: No Do you feel safe in your current relationship?: No Current Relationship Is there a partner from a previous relationship who is making you feel unsafe now?: No Are you made to feel afraid or neglected: No Jehovah'S Witness Healthcare Practices: Gnosticist Advance Directives: No Advance Directives Information Provided: No Do you have thoughts of harming others: None Do you have a plan to hurt others: No Plan Recently lost weight without trying: No How much weight loss: Not applicable Eating poorly because of decreased appetite: No Nutrition screen score: 0 Poor oral hygiene: Yes service: No Sexual orientation: Straight/Heterosexual Meds Allergies Allergy/AdvReac Type Severity Reaction Status Date / Time lisinopril Allergy Unknown Cough Verified 01/26/25 11:49 clonidine AdvReac Unknown Unknown Verified 01/26/25 11:49 Active Medications: Current Medications Acetaminophen (Acetaminophen 325 Mg Tablet) 650 mg PO Q6H PRN PRN Reason: Headache/Pain, Scale 1-10 Al Hydroxide/Mg Hydroxide (Magnesium Hydrox/Alum Hydrox 30 Ml Oral.Susp) 30 ml PO Q6H PRN PRN Reason: Heartburn/Nausea Albuterol Sulfate (Albuterol Sulfate 90 Mcg 8 Gm Inhaler) 1 puff INHALE QID PRN PRN Reason: Wheezing Amlodipine Besylate (Amlodipine Besylate 10 Mg Tablet) 10 mg PO DAILY [facility]; Protocol Last Admin: 01/28/25 09:18 Dose: 10 mg Artificial Tears (Artificial Tears 15 Ml Drops) 2 drop EYE-BOTH Q4H PRN PRN Reason: Dry Eyes Benzocaine (Throat Lozenge, Medicated Lozenge) 1 lozenge MUCOUS MEM Q2H PRN PRN Reason: Sore Throat Benztropine Mesylate (Benztropine Mesylate 1 Mg Tablet) 1 mg PO BID [facility] Last Admin: 01/28/25 09:19 Dose: 1 mg Chlorpromazine HCl (Chlorpromazine Hcl 25 Mg Tablet) 25 mg PO Q6H PRN PRN Reason: anxiety, agitation Last Admin: 01/27/25 18:26 Dose: 25 mg Clozapine 100 mg/ Clozapine 25 (mg) 125 mg PO BEDTIME [facility] Cyclobenzaprine HCl (Cyclobenzaprine Hcl 10 Mg Tablet) 10 mg PO TID PRN PRN Reason: back muscle spasm Docusate Sodium (Docusate Sodium 100 Mg Capsule) 100 mg PO BID [facility] Last Admin: 01/28/25 09:19 Dose: 100 mg Duloxetine HCl (Duloxetine Hcl 30 Mg Capsule.Dr) 30 mg PO DAILY [facility] Last Admin: 01/28/25 09:19 Dose: 30 mg Folic Acid (Folic Acid 1 Mg Tablet) 1 mg PO DAILY [facility] Last Admin: 01/28/25 09:19 Dose: 1 mg Gabapentin (Gabapentin 300 Mg Capsule) 300 mg PO TID [facility] Last Admin: 01/28/25 09:19 Dose: 300 mg Hydroxyzine HCl (Hydroxyzine Hcl 50 Mg Tablet) 50 mg PO Q6H PRN PRN Reason: mild anxiety Ibuprofen (Ibuprofen 600 Mg Tablet) 600 mg PO Q8H PRN PRN Reason: back pain Lactic Acid (Ammonium Lactate 12 % Lotion 226 Gm Bottle) 1 appl TOPICAL DAILY [facility]; Protocol Last Admin: 01/28/25 09:20 Dose: 1 appl Lamotrigine (Lamotrigine 25 Mg Tablet) 25 mg PO DAILY [facility] Last Admin: 01/28/25 09:18 Dose: 25 mg Loratadine (Loratadine 10 Mg Tablet) 10 mg PO DAILY [facility] Last Admin: 01/28/25 09:19 Dose: 10 mg Losartan Potassium (Losartan Potassium 50 Mg Tablet) 100 mg PO DAILY [facility]; Protocol Last Admin: 01/28/25 09:19 Dose: 100 mg Magnesium Hydroxide (Milk Of Magnesia 30 Ml Oral.Susp) 30 ml PO DAILY PRN PRN Reason: Constipation Melatonin (Melatonin 3 Mg Tablet) 3 mg PO BEDTIME PRN PRN Reason: Sleep Metformin HCl (Metformin Hcl Er 500 Mg Tab.Er.24h) 500 mg PO BID [facility] Last Admin: 01/28/25 09:18 Dose: 500 mg Metoprolol Succinate (Metoprolol Succinate Er 50 Mg Tab.Er.24h) 50 mg PO DAILY [facility]; Protocol Last Admin: 01/28/25 09:19 Dose: 50 mg Multi-Ingred Cream/Lotion/Oil/Oint (Mineral Oil/Petrolatum,White 113 Gm Jar) 1 appl TOPICAL QID PRN; Protocol PRN Reason: Dry Skin Naltrexone HCl (Naltrexone Hcl 50 Mg Tablet) 50 mg PO DAILY [facility] Last Admin: 01/28/25 09:18 Dose: 50 mg Nicotine (Nicotine 21 Mg Patch.Td24) 21 mg TRANSDERMA DAILY [facility] Last Admin: 01/28/25 09:17 Dose: 21 mg Nicotine Polacrilex (Nicotine Polacrilex 2 Mg Gum) 4 mg BUCCAL Q2H PRN PRN Reason: Nicotine Cravings Non-Formulary Medication (Tirzepatide [Mounjaro]) 2.5 mg SUBCUT SA [facility] Ondansetron HCl (Ondansetron Odt 4 Mg Tab.Rapdis) 4 mg TRANSLINGU Q8H PRN PRN Reason: Nausea and Vomiting Polyethylene Glycol (Polyethylene Glycol 3350 17 Gm Powd.Pack) 17 gm PO DAILY [facility] Last Admin: 01/28/25 09:20 Dose: 17 gm Prazosin HCl (Prazosin Hcl 1 Mg Capsule) 4 mg PO BEDTIME [facility]; Protocol Last Admin: 01/27/25 20:13 Dose: 4 mg Senna (Sennosides 8.6 Mg Tablet) 17.2 mg PO BEDTIME [facility] Last Admin: 01/27/25 20:12 Dose: 17.2 mg Thiamine HCl (Thiamine Hcl 100 Mg Tablet) 100 mg PO DAILY [facility] Last Admin: 01/28/25 09:19 Dose: 100 mg Tiotropium [place] (Tiotropium [place] 2.5 Mcg 1 Puff/2.5 Mcg Mist.Inhal) 2 puff INHALE RDAILY [facility] Last Admin: 01/28/25 09:20 Dose: Not Given Trazodone HCl (Trazodone Hcl 50 Mg Tablet) 50 mg PO BEDTIME MRX1 PRN PRN Reason: Insomnia Trazodone HCl (Trazodone Hcl 100 Mg Tablet) 100 mg PO BEDTIME [facility] Last Admin: 01/27/25 20:13 Dose: 100 mg Home Medications ?Medication ?Instructions ?Recorded ?Confirmed ?Last Taken ?Type ondansetron 4 mg disintegrating 4 mg PO Q8H PRN Nausea And Vomiting 09/12/24 01/27/25 Unknown History tablet ammonium lactate 12 % lotion 1 appl topical DAILY 09/13/24 01/27/25 01/06/25 History clozapine 100 mg tablet 100 mg PO BEDTIME 01/27/25 01/27/25 01/23/25 22:45 History clozapine 25 mg tablet 25 mg PO BEDTIME 1201/27/25 01/23/25 22:45 History tirzepatide 2.5 mg/0.5 mL 2.5 mg subcut SA 01/27/25 01/27/25 Unknown History subcutaneous pen injector (Mari) Physical Exam Vital Signs and Narrative: Vital Signs: Last Vital Signs Temp 97.6 F 01/28/25 08:00 Pulse 120 H 01/28/25 09:19 Resp 16 01/28/25 08:00 BP 136/88 01/28/25 09:19 Pulse Ox 93 01/28/25 08:00 O2 Del Method Room Air 01/28/25 08:00 O2 Flow Rate 2 01/27/25 10:58 BMI result Body Mass Index 58.8 Alert when awoken, calm and cooperative. Answers questions. Sitting at the table in the dining room. In no apparent distress Neuro: CN II-X11 intact, no deficits, visual acuity intact EYES: PERRLA, EOM intact ENT: Hearing intact, MMM Cardiac: S1 S2 RRR, No ectopy Pulmonary: Lungs clear to auscultation, diminished due to body habitus, No increased WOB. Abdominal: BS active in all 4 quadrants, no guarding or tenderness. Obese abdomen. MSK: Strength 5/5 upper and lower extremities : Deferred Extremities: No edema in lower extremities Psych: Cooperative with the exam. Pleasant Skin: Warm and dry, Intact Results Labs 01/26/25 12:49 01/28/25 08:25 Labs: Laboratory Results - last 24 hr 01/28/25 08:25 Anion Gap 10 L Estim Creat Clear Calc 183.5 Estimated GFR > 60 Random Glucose 106 Calcium 9.3 Total Bilirubin 0.2 AST 52 H ALT 53 H Alkaline Phosphatase 86 Total Protein 7.1 Albumin 4.3 Assessment and Plan (1) Sleep related hypoxia: Status: Acute (2) Type 2 diabetes mellitus: Qualifiers: Diabetes mellitus climate change analyst insulin use: without climate change analyst use Diabetes mellitus complication status: with circulatory complication Status: Acute Plan 34-year-old male with past medical history listed below presented to the emergency department with suicidal ideation. Admitted for inpatient stabilization. Schizoaffective disorder/suicidal ideation/substance use disorder/alcohol use disorder Treatment per psychiatric team Pulmonary nodule 6 mm pulmonary nodule of the left lung base Due to patient's smoking history and COPD is recommended that he have a follow up CT in 6-12 months. We will need PCP follow-up. Type 2 diabetes Continue metformin b.i.d. Continue Onesimounmyah Recent A1c 6.2 12/2024 Hypertension Continue amlodipine and Cozaar, Toprol Blood pressure stable ESHA on CPAP/Sleep-related hypoxia/COPD Patient utilizing CPAP at HS Will need CPAP use during nap time or supplemental oxygen to maintain sats greater than 90% Continue Spiriva and albuterol Thank you for allowing me to participate in the care of this patient. Will follow with you, please notify medical provider with any changes in condition or concerns.
--- NOTE | 2025-01-28 15:03 | PC.NURSE ---
Flu vaccine administered by Yael Smith with patient's admission earlier this month.
[2025-01-28 16:19] LABS: Resp Syncy Virus RNA Qual PCR NEGATIVE (Negative); SARS COV2 PCR INHOUSE NEGATIVE (Negative)
--- NOTE | 2025-01-28 18:19 | PC.NURSE ---
Pt reports that he has burning and small amount of blood, upon urination. Reported to provider.
[2025-01-28 20:00] VITALS: BP 160/96; PULSE 94; TEMP 36.9; O2SAT 94
[2025-01-28 21:14] VITALS: BP 160/96
[2025-01-29 08:00] VITALS: BP 132/69; PULSE 99; TEMP 36.6; O2SAT 93
[2025-01-29 09:05] VITALS: BP 151/67
[2025-01-29 09:06] VITALS: BP 151/67
[2025-01-29] MEDS: Metoprolol Succinate ER 50 MG TAB.ER.24H PO (09:07)
[2025-01-29] MEDS: Ammonium Lactate 12 % Lotion 226 GM BOTTLE 1 APPL TOPICAL (09:07)
[2025-01-29] MEDS: Tiotropium Bromide 2.5 mcg 1 PUFF/2.5 MCG MIST.INHAL 2 PUFF INHALE (09:08)
[2025-01-29] MEDS: Nicotine 21 MG PATCH.TD24 TRANSDERMA (09:10)
[2025-01-29] MEDS: Throat Lozenge, Medicated LOZENGE 1 LOZENGE MUCOUS MEM (09:17)
--- NOTE | 2025-01-29 10:08 | P.PNPSI_ITS ---
Subjective Subjective Date of Service: 01/29/25 Reason For Visit: SI Subjective Notes: Conditional Voluntary Healthcare Proxy: No Guardianship: No Medical Problems Affecting Mental Status: No Interim History: Reports URI sx- resp panel negative, throat culture pending. Discussed preciptants to admit with pt. Pt told crisis he was not ready to leave on Monday-that regime was not working and he was hearing voices. Today he reports CAH, no sleep in 3 days, +SI, anxiety and feeling unable to cope. Reviewed our meeting prior to discharge and discussd with pt what has changed. He discussed not being able to feel safe staying alone in the home- I don't want to live there . I want to go to respite and a jail. Discussed this as the reason for his return. We also discussed his pharmacy not having Clozaril in stock, however the unit was not informed as the rx had been sent the day before discharge. [place] [facility] [place] a safe place with others to live. Medication Compliance: Yes Side effects from medications: No Attending Groups: No Review of Systems URI sx, throat culture pending Medical Review of Systems: unchanged Review of Systems Review of Systems URI sx Mental Status Exam Mental Status Exam Patient Appearance: Fatigued and Disheveled Patient Orientation: Person, Place, Time and Situation Level of Consciousness: Alert Patient Behavior: Talkative, Anxious and Good Eye Contact Mood Description: Anxious and Apprehensive Affect Description: Anxious and Apprehensive Patient Cognition Impaired: No Ability to Follow Directions: Fair Speech Pattern: Spontaneous Speech Memory Description: Episodic Impaired Hallucinations: Auditory Delusions: Paranoid Ideation Thought Process: Distracted and Rumination Thought Content: positive for Circumstantial, positive for Perseveration and positive for Suicidal Ideation Depressive Symptoms: Increased Anxiety and Thoughts of /Suicide Judgement: Poor Diagnostics Vital Signs (24Hr): Vital Signs - 24 hr 01/28/25 20:00 01/28/25 21:14 01/29/25 09:05 Temperature 98.5 F Pulse Rate 94 Blood Pressure 160/96 H 160/96 H 151/67 H Pulse Oximetry 94 Oxygen Delivery Method Room Air 01/29/25 09:06 Temperature Pulse Rate Blood Pressure 151/67 H Pulse Oximetry Oxygen Delivery Method BMI result Body Mass Index 58.8 Labs 01/26/25 12:49 01/28/25 08:25 Labs: Laboratory Results - last 48 hr 01/28/25 01/28/25 08:25 15:20 Sodium 142 Potassium 4.3 Chloride 104 Carbon Dioxide 32 H Anion Gap 10 L BUN 12 Creatinine 0.93 Estim Creat Clear Calc 183.5 Estimated GFR > 60 Random Glucose 106 Calcium 9.3 Total Bilirubin 0.2 AST 52 H ALT 53 H Alkaline Phosphatase 86 Total Protein 7.1 Albumin 4.3 Influenza Type A (PCR) NEGATIVE Influenza Type B (PCR) NEGATIVE RSV RNA Qual (PCR) NEGATIVE SARS-CoV-2 RNA (RT-PCR) NEGATIVE Medications Medications Current Medications Acetaminophen (Acetaminophen 325 Mg Tablet) 650 mg PO Q6H PRN PRN Reason: Headache/Pain, Scale 1-10 Al Hydroxide/Mg Hydroxide (Magnesium Hydrox/Alum Hydrox 30 Ml Oral.Susp) 30 ml PO Q6H PRN PRN Reason: Heartburn/Nausea Albuterol Sulfate (Albuterol Sulfate 90 Mcg 8 Gm Inhaler) 1 puff INHALE QID PRN PRN Reason: Wheezing Amlodipine Besylate (Amlodipine Besylate 10 Mg Tablet) 10 mg PO DAILY [facility]; Protocol Last Admin: 01/29/25 09:06 Dose: 10 mg Artificial Tears (Artificial Tears 15 Ml Drops) 2 drop EYE-BOTH Q4H PRN PRN Reason: Dry Eyes Benzocaine (Throat Lozenge, Medicated Lozenge) 1 lozenge MUCOUS MEM Q2H PRN PRN Reason: Sore Throat Last Admin: 01/29/25 09:17 Dose: 1 lozenge Benztropine Mesylate (Benztropine Mesylate 1 Mg Tablet) 1 mg PO BID [facility] Last Admin: 01/29/25 09:07 Dose: 1 mg Chlorpromazine HCl (Chlorpromazine Hcl 25 Mg Tablet) 25 mg PO Q6H PRN PRN Reason: anxiety, agitation Last Admin: 01/28/25 21:14 Dose: 25 mg Clozapine 100 mg/ Clozapine 25 (mg) 125 mg PO BEDTIME [facility] Last Admin: 01/28/25 21:13 Dose: 125 mg Cyclobenzaprine HCl (Cyclobenzaprine Hcl 10 Mg Tablet) 10 mg PO TID PRN PRN Reason: back muscle spasm Docusate Sodium (Docusate Sodium 100 Mg Capsule) 100 mg PO BID [facility] Last Admin: 01/29/25 09:06 Dose: 100 mg Duloxetine HCl (Duloxetine Hcl 30 Mg Capsule.Dr) 30 mg PO DAILY [facility] Last Admin: 01/29/25 09:06 Dose: 30 mg Folic Acid (Folic Acid 1 Mg Tablet) 1 mg PO DAILY [facility] Last Admin: 01/29/25 09:07 Dose: 1 mg Gabapentin (Gabapentin 300 Mg Capsule) 300 mg PO TID [facility] Last Admin: 01/29/25 09:07 Dose: 300 mg Hydroxyzine HCl (Hydroxyzine Hcl 50 Mg Tablet) 50 mg PO Q6H PRN PRN Reason: mild anxiety Last Admin: 01/28/25 17:58 Dose: 50 mg Ibuprofen (Ibuprofen 600 Mg Tablet) 600 mg PO Q8H PRN PRN Reason: back pain Lactic Acid (Ammonium Lactate 12 % Lotion 226 Gm Bottle) 1 appl TOPICAL DAILY [facility]; Protocol Last Admin: 01/29/25 09:07 Dose: 1 appl Lamotrigine (Lamotrigine 25 Mg Tablet) 25 mg PO DAILY [facility] Last Admin: 01/29/25 09:07 Dose: 25 mg Loratadine (Loratadine 10 Mg Tablet) 10 mg PO DAILY [facility] Last Admin: 01/29/25 09:07 Dose: 10 mg Losartan Potassium (Losartan Potassium 50 Mg Tablet) 100 mg PO DAILY [facility]; Protocol Last Admin: 01/29/25 09:05 Dose: 100 mg Magnesium Hydroxide (Milk Of Magnesia 30 Ml Oral.Susp) 30 ml PO DAILY PRN PRN Reason: Constipation Melatonin (Melatonin 3 Mg Tablet) 3 mg PO BEDTIME PRN PRN Reason: Sleep Metformin HCl (Metformin Hcl Er 500 Mg Tab.Er.24h) 500 mg PO BID [facility] Last Admin: 01/29/25 09:06 Dose: 500 mg Metoprolol Succinate (Metoprolol Succinate Er 50 Mg Tab.Er.24h) 50 mg PO DAILY [facility]; Protocol Last Admin: 01/29/25 09:07 Dose: 50 mg Multi-Ingred Cream/Lotion/Oil/Oint (Mineral Oil/Petrolatum,White 113 Gm Jar) 1 appl TOPICAL QID PRN; Protocol PRN Reason: Dry Skin Naltrexone HCl (Naltrexone Hcl 50 Mg Tablet) 50 mg PO DAILY [facility] Last Admin: 01/29/25 09:06 Dose: 50 mg Nicotine (Nicotine 21 Mg Patch.Td24) 21 mg TRANSDERMA DAILY [facility] Last Admin: 01/29/25 09:10 Dose: 21 mg Nicotine Polacrilex (Nicotine Polacrilex 2 Mg Gum) 4 mg BUCCAL Q2H PRN PRN Reason: Nicotine Cravings Non-Formulary Medication (Tirzepatide [Mounjaro]) 2.5 mg SUBCUT SA [facility] Ondansetron HCl (Ondansetron Odt 4 Mg Tab.Rapdis) 4 mg TRANSLINGU Q8H PRN PRN Reason: Nausea and Vomiting Polyethylene Glycol (Polyethylene Glycol 3350 17 Gm Powd.Pack) 17 gm PO DAILY [facility] Last Admin: 01/29/25 09:10 Dose: 17 gm Prazosin HCl (Prazosin Hcl 1 Mg Capsule) 4 mg PO BEDTIME [facility]; Protocol Last Admin: 01/28/25 21:14 Dose: 4 mg Senna (Sennosides 8.6 Mg Tablet) 17.2 mg PO BEDTIME [facility] Last Admin: 01/28/25 21:14 Dose: 17.2 mg Sodium Chloride (Sodium Chloride 0.65 % Nasal 44 Ml Sprbtl) 1 spray NOSTRIL-B Q4H PRN PRN Reason: Nasal Congestion Thiamine HCl (Thiamine Hcl 100 Mg Tablet) 100 mg PO DAILY [facility] Last Admin: 01/29/25 09:07 Dose: 100 mg Tiotropium [place] (Tiotropium [place] 2.5 Mcg 1 Puff/2.5 Mcg Mist.Inhal) 2 puff INHALE RDAILY [facility] Last Admin: 01/29/25 09:08 Dose: 2 puff Trazodone HCl (Trazodone Hcl 50 Mg Tablet) 50 mg PO BEDTIME MRX1 PRN PRN Reason: Insomnia Trazodone HCl (Trazodone Hcl 100 Mg Tablet) 100 mg PO BEDTIME [facility] Last Admin: 01/28/25 21:13 Dose: 100 mg Allergies Allergies Allergy/AdvReac Type Severity Reaction Status Date / Time lisinopril Allergy Unknown Cough Verified 01/26/25 11:49 clonidine AdvReac Unknown Unknown Verified 01/26/25 11:49 Assessment & Plan Assessment & Plan (1) Sleep related hypoxia: Status: Acute Code(s): G47.34 - Idiopathic sleep related nonobstructive alveolar hypoventilation (2) Schizoaffective disorder: Status: Acute Code(s): F25.9 - Schizoaffective disorder, unspecified (3) Anxiety: Status: Acute Code(s): F41.9 - Anxiety disorder, unspecified Plan 34-year-old male with past medical history listed below presented to the emergency department with suicidal ideation. Admitted for inpatient stabilization. Schizoaffective disorder/suicidal ideation/substance use disorder/alcohol use disorder Treatment per psychiatric team Pulmonary nodule 6 mm pulmonary nodule of the left lung base Due to patient's smoking history and COPD is recommended that he have a follow up CT in 6-12 months. We will need PCP follow-up. Type 2 diabetes Continue metformin b.i.d. Continue Mounjaro Recent A1c 6.2 12/2024 Hypertension Continue amlodipine and Cozaar, Toprol Blood pressure stable ESHA on CPAP/Sleep-related hypoxia/COPD Patient utilizing CPAP at HS Will need CPAP use during nap time or supplemental oxygen to maintain sats greater than 90% Continue Spiriva and albuterol Thank you for allowing me to participate in the care of this patient. Will follow with you, please notify medical provider with any changes in condition or concerns. 01/29/25: Reports URI sx- resp panel negative, throat culture pending. Discussed preciptants to admit with pt. Pt told crisis he was not ready to leave on Monday-that regime was not working and he was hearing voices. Today he reports CAH, no sleep in 3 days, +SI, anxiety and feeling unable to cope. Reviewed our meeting prior to discharge and discussd with pt what has changed. He discussed not being able to feel safe staying alone in the home- I don't want to live there . I want to go to respite and a jail. Discussed this as the reason for his return. We also discussed his pharmacy not having Clozaril in stock, however the unit was not informed as the rx had been sent the day before discharge. [place] [facility] [place] a safe place with others to live. Plan: Increase Clozapine to 125 mg hs Throat culture, sore throat drops and spray prn Reason for continued inpatient stay Substantial Risk for: rapid decompensation Time Spent With Patient Time: Total time managing care of this patient today ____ minutes.
[2025-01-29 16:17] LABS: IDNOW Serial# 55D5AD1C; Strep A Nucleic Acid Negative (Negative)
[2025-01-29 20:00] VITALS: BP 128/58; PULSE 111; TEMP 37.2; O2SAT 95
[2025-01-29 21:03] VITALS: BP 128/81
[2025-01-29] MEDS: Throat Spray, Medicated 177 ML BOTTLE 1 SPRAY MUCOUS MEM (21:09)
[2025-01-30 08:00] VITALS: BP 131/63; PULSE 109; RESP 18; TEMP 36.7; O2SAT 93
[2025-01-30 09:40] VITALS: BP 131/63; PULSE 109
[2025-01-30] MEDS: Metoprolol Succinate ER 50 MG TAB.ER.24H PO (09:40)
[2025-01-30] MEDS: Nicotine 21 MG PATCH.TD24 TRANSDERMA (09:42)
[2025-01-30] MEDS: Tiotropium Bromide 2.5 mcg 1 PUFF/2.5 MCG MIST.INHAL 2 PUFF INHALE (09:42)
[2025-01-30] MEDS: Ammonium Lactate 12 % Lotion 226 GM BOTTLE 1 APPL TOPICAL (09:42)
[2025-01-30] MEDS: Throat Lozenge, Medicated LOZENGE 1 LOZENGE MUCOUS MEM (09:42)
--- NOTE | 2025-01-30 10:02 | HO.PSYCHPN ---
Subjective Subjective Date of Service: 01/30/25 Reason For Visit: SI Subjective Notes: Conditional Voluntary and 3 Day Healthcare Proxy: No Guardianship: No Medical Problems Affecting Mental Status: No Interim History: Team reports pt slept eight hours with one awakening for a prn and a snack. Not attending groups. Reports URI sx. Throat culture is negative. Met with pt and Venus DIEGOW. Discussed precipitants to admit and parameters set by OP team and ACCS-no current housing options other than home although they are looking for future options for pt. Discussed with pt that while here he needs to attend all groups and participate in his treatment. He argued that because of URI sx, he needed to remain in bed, resting. He expressed distress that these parameters were set and has signed a three day notice of intent this afternoon. Medication Compliance: Yes Side effects from medications: No Attending Groups: No Review of Systems URI Medical Review of Systems: unchanged Review of Systems Review of Systems URI sx Mental Status Exam Mental Status Exam Patient Appearance: Fatigued and Disheveled Patient Orientation: Person, Place, Time and Situation Level of Consciousness: Alert Patient Behavior: Talkative, Anxious and Good Eye Contact Mood Description: Anxious and Apprehensive Affect Description: Anxious and Apprehensive Patient Cognition Impaired: No Ability to Follow Directions: Fair Speech Pattern: Spontaneous Speech Memory Description: Episodic Impaired Hallucinations: Auditory Delusions: Paranoid Ideation Thought Process: Distracted and Rumination Thought Content: positive for Circumstantial, positive for Perseveration and positive for Suicidal Ideation Depressive Symptoms: Increased Anxiety and Thoughts of /Suicide Judgement: Poor Diagnostics Vital Signs (24Hr): Vital Signs - 24 hr 01/29/25 20:00 01/29/25 21:03 01/30/25 09:40 Temperature 99.0 F Pulse Rate 111 H 109 H Blood Pressure 128/58 L 128/81 131/63 Pulse Oximetry 95 Oxygen Delivery Method Room Air BMI result Body Mass Index 58.8 Labs 01/26/25 12:49 01/28/25 08:25 Labs: Laboratory Results - last 48 hr 01/28/25 01/29/25 15:20 15:35 Influenza Type A (PCR) NEGATIVE Influenza Type B (PCR) NEGATIVE RSV RNA Qual (PCR) NEGATIVE SARS-CoV-2 RNA (RT-PCR) NEGATIVE S. pyogenes GrpA LOUISA Negative Medications Medications Current Medications Acetaminophen (Acetaminophen 325 Mg Tablet) 650 mg PO Q6H PRN PRN Reason: Headache/Pain, Scale 1-10 Al Hydroxide/Mg Hydroxide (Magnesium Hydrox/Alum Hydrox 30 Ml Oral.Susp) 30 ml PO Q6H PRN PRN Reason: Heartburn/Nausea Albuterol Sulfate (Albuterol Sulfate 90 Mcg 8 Gm Inhaler) 1 puff INHALE QID PRN PRN Reason: Wheezing Amlodipine Besylate (Amlodipine Besylate 10 Mg Tablet) 10 mg PO DAILY [facility]; Protocol Last Admin: 01/30/25 09:41 Dose: 10 mg Artificial Tears (Artificial Tears 15 Ml Drops) 2 drop EYE-BOTH Q4H PRN PRN Reason: Dry Eyes Benzocaine (Throat Lozenge, Medicated Lozenge) 1 lozenge MUCOUS MEM Q2H PRN PRN Reason: Sore Throat Last Admin: 01/30/25 09:42 Dose: 1 lozenge Benztropine Mesylate (Benztropine Mesylate 1 Mg Tablet) 1 mg PO BID [facility] Last Admin: 01/30/25 09:41 Dose: 1 mg Chlorpromazine HCl (Chlorpromazine Hcl 25 Mg Tablet) 25 mg PO Q6H PRN PRN Reason: anxiety, agitation Last Admin: 01/28/25 21:14 Dose: 25 mg Clozapine 100 mg/ Clozapine 25 (mg) 125 mg PO BEDTIME [facility] Last Admin: 01/29/25 21:06 Dose: 125 mg Cyclobenzaprine HCl (Cyclobenzaprine Hcl 10 Mg Tablet) 10 mg PO TID PRN PRN Reason: back muscle spasm Docusate Sodium (Docusate Sodium 100 Mg Capsule) 100 mg PO BID [facility] Last Admin: 01/30/25 09:41 Dose: 100 mg Duloxetine HCl (Duloxetine Hcl 30 Mg Capsule.Dr) 30 mg PO DAILY [facility] Last Admin: 01/30/25 09:41 Dose: 30 mg Folic Acid (Folic Acid 1 Mg Tablet) 1 mg PO DAILY [facility] Last Admin: 01/30/25 09:41 Dose: 1 mg Gabapentin (Gabapentin 300 Mg Capsule) 300 mg PO TID [facility] Last Admin: 01/30/25 09:41 Dose: 300 mg Hydroxyzine HCl (Hydroxyzine Hcl 50 Mg Tablet) 50 mg PO Q6H PRN PRN Reason: mild anxiety Last Admin: 01/29/25 15:22 Dose: 50 mg Ibuprofen (Ibuprofen 600 Mg Tablet) 600 mg PO Q8H PRN PRN Reason: back pain Lactic Acid (Ammonium Lactate 12 % Lotion 226 Gm Bottle) 1 appl TOPICAL DAILY [facility]; Protocol Last Admin: 01/30/25 09:42 Dose: 1 appl Lamotrigine (Lamotrigine 25 Mg Tablet) 25 mg PO DAILY [facility] Last Admin: 01/30/25 09:41 Dose: 25 mg Loratadine (Loratadine 10 Mg Tablet) 10 mg PO DAILY [facility] Last Admin: 01/30/25 09:42 Dose: 10 mg Losartan Potassium (Losartan Potassium 50 Mg Tablet) 100 mg PO DAILY [facility]; Protocol Last Admin: 01/30/25 09:42 Dose: 100 mg Magnesium Hydroxide (Milk Of Magnesia 30 Ml Oral.Susp) 30 ml PO DAILY PRN PRN Reason: Constipation Melatonin (Melatonin 3 Mg Tablet) 3 mg PO BEDTIME PRN PRN Reason: Sleep Last Admin: 01/30/25 01:18 Dose: 3 mg Metformin HCl (Metformin Hcl Er 500 Mg Tab.Er.24h) 500 mg PO BID [facility] Last Admin: 01/30/25 09:40 Dose: 500 mg Metoprolol Succinate (Metoprolol Succinate Er 50 Mg Tab.Er.24h) 50 mg PO DAILY [facility]; Protocol Last Admin: 01/30/25 09:40 Dose: 50 mg Multi-Ingred Cream/Lotion/Oil/Oint (Mineral Oil/Petrolatum,White 113 Gm Jar) 1 appl TOPICAL QID PRN; Protocol PRN Reason: Dry Skin Multi-Ingred Medicated Throat [place] (Throat [place], Medicated 177 Ml Bottle) 1 spray MUCOUS MEM Q2H PRN PRN Reason: Sore Throat Last Admin: 01/29/25 21:09 Dose: 1 spray Naltrexone HCl (Naltrexone Hcl 50 Mg Tablet) 50 mg PO DAILY [facility] Last Admin: 01/30/25 09:40 Dose: 50 mg Nicotine (Nicotine 21 Mg Patch.Td24) 21 mg TRANSDERMA DAILY [facility] Last Admin: 01/30/25 09:42 Dose: 21 mg Nicotine Polacrilex (Nicotine Polacrilex 2 Mg Gum) 4 mg BUCCAL Q2H PRN PRN Reason: Nicotine Cravings Last Admin: 01/30/25 09:42 Dose: 4 mg Non-Formulary Medication (Tirzepatide [Mounjaro]) 2.5 mg SUBCUT SA [facility] Ondansetron HCl (Ondansetron Odt 4 Mg Tab.Rapdis) 4 mg TRANSLINGU Q8H PRN PRN Reason: Nausea and Vomiting Polyethylene Glycol (Polyethylene Glycol 3350 17 Gm Powd.Pack) 17 gm PO DAILY [facility] Last Admin: 01/30/25 09:43 Dose: 17 gm Prazosin HCl (Prazosin Hcl 1 Mg Capsule) 4 mg PO BEDTIME [facility]; Protocol Last Admin: 01/29/25 21:03 Dose: 4 mg Senna (Sennosides 8.6 Mg Tablet) 17.2 mg PO BEDTIME [facility] Last Admin: 01/29/25 21:03 Dose: 17.2 mg Sodium Chloride (Sodium Chloride 0.65 % Nasal 44 Ml Sprbtl) 1 spray NOSTRIL-B Q4H PRN PRN Reason: Nasal Congestion Thiamine HCl (Thiamine Hcl 100 Mg Tablet) 100 mg PO DAILY [facility] Last Admin: 01/30/25 09:41 Dose: 100 mg Tiotropium [place] (Tiotropium [place] 2.5 Mcg 1 Puff/2.5 Mcg Mist.Inhal) 2 puff INHALE RDAILY [facility] Last Admin: 01/30/25 09:42 Dose: 2 puff Trazodone HCl (Trazodone Hcl 50 Mg Tablet) 50 mg PO BEDTIME MRX1 PRN PRN Reason: Insomnia Last Admin: 01/30/25 01:18 Dose: 50 mg Trazodone HCl (Trazodone Hcl 100 Mg Tablet) 100 mg PO BEDTIME [facility] Last Admin: 01/29/25 21:06 Dose: 100 mg Allergies Allergies Allergy/AdvReac Type Severity Reaction Status Date / Time lisinopril Allergy Unknown Cough Verified 01/26/25 11:49 clonidine AdvReac Unknown Unknown Verified 01/26/25 11:49 Assessment & Plan Assessment & Plan (1) Schizoaffective disorder: Status: Acute Code(s): F25.9 - Schizoaffective disorder, unspecified (2) Diabetes: Status: Acute Code(s): E11.9 - Type 2 diabetes mellitus without complications (3) Severe obesity: Status: Acute Code(s): E66.01 - Morbid (severe) obesity due to excess calories Plan 34 yo male, known to our service, with a history of schizoaffective disorder, depressed, DMII, HTN. Patient was recently discharged from on 01/24 and represents now in the face of not getting Clozaril. Patient reports that for some reason clozapine was not available and he did not get a least 1 day. He said that his neighbors were causing problems for him, saying rude things to him and he started to get a little suicidal so he came to the emergency room. Patient reports that AH also returned. Denies any substance abuse Formulation/clinical reasoning: Patient has been off clozapine for 1 maybe 2 days at most; will restart at 75 mg then quickly titrate back to home dose of 125 mg 01/29/25: 01/29/25: Reports URI sx- resp panel negative, throat culture pending. Discussed preciptants to admit with pt. Pt told crisis he was not ready to leave on Monday-that regime was not working and he was hearing voices. Today he reports CAH, no sleep in 3 days, +SI, anxiety and feeling unable to cope. Reviewed our meeting prior to discharge and discussd with pt what has changed. He discussed not being able to feel safe staying alone in the home- I don't want to live there . I want to go to respite and a penitentiary. Discussed this as the reason for his return. We also discussed his pharmacy not having Clozaril in stock, however the unit was not informed as the rx had been sent the day before discharge. [place] [facility] a safe place with others to live. Plan: Increase Clozapine to 125 mg hs Throat culture, sore throat drops and spray prn 01/30/25: Team reports pt slept eight hours with one awakening for a prn and a snack. Not attending groups. Reports URI sx. Throat culture is negative. Met with pt and Venus DIEGOW. Discussed precipitants to admit and parameters set by OP team and ACCS-no current housing options other than home although they are looking for future options for pt. Discussed with pt that while here he needs to attend all groups and participate in his treatment. He argued that because of URI sx, he needed to remain in bed, resting. He expressed distress that these parameters were set and has signed a three day notice of intent this afternoon. Plan: Increase Clozapine to 150 mg HS Plan: CV Q 15 minute checks Increase Clozaril to 125 mg tonight; patient received Clozaril 75 mg last night Continue other home medications Reason for continued inpatient stay Substantial Risk for: rapid decompensation Time Spent With Patient Time: Total time managing care of this patient today ____ minutes.
[2025-01-30] MEDS: Throat Spray, Medicated 177 ML BOTTLE 1 SPRAY MUCOUS MEM (11:25)
[2025-01-30 19:53] VITALS: BP 135/89; PULSE 122; TEMP 36.6; O2SAT 90
[2025-01-30] MEDS: Albuterol Sulfate 90 MCG 8 GM INHALER 1 PUFF INHALE (20:03)
[2025-01-30 21:10] VITALS: BP 138/84; PULSE 123; RESP 20; TEMP 39.4; O2SAT 88
[2025-01-30 22:40] LABS: Hematocrit 40.2 % (42.0-52.0); Hemoglobin 12.4 g/dl (14.0-18.0); Imm Gran Abs Auto 0.06 X10*3/uL (0.00-0.03); Imm Gran Pct Auto 0.8 % (0.0-0.4); Lymphocytes Absolute Auto 1.1 X10*3/uL (1.2-4.9); MANUAL DIFF FLAG NO; Mean Corpuscular HGB Conc 30.8 g/dl (31.0-36.0); Mean Corpuscular Hemoglobin 25.7 pg (27.0-33.0); Mean Corpuscular Volume 83.2 fL (80.0-98.0); NRBC Abs Auto 0.000 X10*3/uL (0.0-0.012); NRBC Pct Auto 0.0 /100WBC (0.0-0.2); Platelet Count 231 X10*3/uL (160-400); Red Blood Count 4.83 X10*6/uL (4.60-5.80); White Blood Count 7.5 X10*3/uL (4.8-10.8)
[2025-01-30 22:54] LABS: Alanine Aminotransferase 53 U/L (0-40); Albumin Level 4.1 g/dL (3.5-5.0); Alkaline Phosphatase 87 U/L (39-117); Anion Gap 8 (12-20); Aspartate Amino Transferase 53 U/L (5-37); Blood Urea Nitrogen 10 mg/dL (9-16); Calcium 9.0 mg/dL (8.4-10.2); Carbon Dioxide 32 mmol/L (22-29); Chloride 102 mmol/L (96-108); Creatinine Clr Calc Pharmacy 151.0; Estimated Glomerular Filt Rate > 60; Potassium 4.3 mmol/L (3.3-5.1); Sodium 138 mmol/L (135-145); Total Protein 7.0 g/dL (6.5-8.0)
[2025-01-30] MEDS: Albuterol Sulfate (0.083%) 2.5 MG/3 ML VIAL.NEB INHALE (23:00)
[2025-01-30 23:05] VITALS: PULSE 123; RESP 20
--- NOTE | 2025-01-30 23:46 | P.EN_ITS ---
Event Note Date of Service: 01/31/25 Event Note: Dr. Morales and this investment underwriter notified by nursing that pt Stef Kolby in 515 c/o not feeling well, cough, sore throat, unwitnessed vomiting at 2100. Lungs diminished. Temp 103.6, O2 88-96% worse if supine, P 123, 138/84, Respiratory panel done 01/28 negative. Psychaitry had stopped the Clozaril and Thorazine. CBC, CMP, LA, Total CK ordered. CXR and UA also added once pt was seen. pt has evidence of conjunctivits and thrush. Pt states he often times develops conjunctivitis especially of the right eye when he is using his CPAP as his saliva enters his right eye accidentally. Could be more inflammatory versus infectious. In addition patient does use inhalers and does not often times rinse out his mouth after use and currently has a case of thrush. Patient is seen and examined at the bedside and is currently alert and orientated x3, using CPAP without unusual distress. Lungs are diminished bilaterally but no adventitious sounds noted. S1-S2 RRR tachycardic 103 bpm. Respiratory rate 22. Patient is reporting a productive cough of yellow sputum. Patient noted to be febrile but down to 102.5. Lactic acid 0.9. Patient does have a leukocytosis of 13.3. Neutrophils are normal. CO2 32. Renal function stable. AST 53, ALT 53 baseline for this patient. Total creatinine kinase 385. 0.9 NS 125 mls per hour X1 bag. Fever/ Pneumonitis Chest x-ray pending, pneumonitis and atelectasis noted, IS ordered , pt received 50 mgs of prednisone po Prednisone 40 mgs daily X4D Sputum culture requested Duonebs prn, supportive care Swab for strep (throat culture), COVID, FLU and RSV (will resend noting high fever) Blood cultures X2 ordered UA pending Ibuprofen prn Temp down to 98.5, pt currently resting comfortably LA 0.9 Psychiatry held clozapine and thorazine (per nursing) Thrush Nystatin swish and swallow ordered for thrush Pt educated to rinse mouth after use of inhalers, nebs Conjunctiivits Erythromycin ointment ordered for right eye conjunctivitis Elevated CK 0.9 normal saline at 125 an hour for 1 bag (noted elevation in total CK) ESHA CPAP in place Hospitalist will continue to monitor and follow patient. Reviewed plan with nursing and requested that they contact this provider with any changes in patient's status. Patient can remain on M5 at this time. (0009 AM, 01/31/25) Time Spent With Patient Time: Total time managing care of this patient today ____ minutes.
[2025-01-31 00:16] LABS: NT Pro B Type Natriuretic Pept < 15.8 pg/mL (<300)
[2025-01-31] MEDS: Magnesium Hydrox/Alum Hydrox 30 ML ORAL.SUSP PO (02:21)
[2025-01-31] MEDS: Erythromycin Base 0.5% Oph Oin 1 GM TUBE 1 CM EYE-RIGHT ×2 (02:23→09:24)
[2025-01-31] MEDS: Throat Spray, Medicated 177 ML BOTTLE 1 SPRAY MUCOUS MEM (05:30)
[2025-01-31 06:23] LABS: Appearance Urine Clear; Glucose Urine UA Negative (Negative); PH 8.0 (5.0-9.0); Specific Gravity - Urine <= 1.005 (1.005-1.025)
[2025-01-31 09:11] VITALS: BP 131/68; PULSE 114; RESP 16; TEMP 36.9; O2SAT 90
[2025-01-31] MEDS: Tiotropium Bromide 2.5 mcg 1 PUFF/2.5 MCG MIST.INHAL 2 PUFF INHALE (09:16)
[2025-01-31] MEDS: Metoprolol Succinate ER 50 MG TAB.ER.24H PO (09:26)
[2025-01-31] MEDS: Ammonium Lactate 12 % Lotion 226 GM BOTTLE 1 APPL TOPICAL (09:26)
[2025-01-31] MEDS: Nicotine 21 MG PATCH.TD24 TRANSDERMA (09:26)
[2025-01-31] MEDS: Nystatin Oral Susp 500,000 UNIT/5 ML ORAL.SUSP 400000 UNIT PO ×2 (09:33→12:22)
--- NOTE | 2025-01-31 10:19 | P.PNPSI_ITS ---
Subjective Subjective Reason For Visit: SI Diagnostics Vital Signs (24Hr): Vital Signs - 24 hr 01/30/25 19:53 01/30/25 21:10 01/30/25 23:05 Temperature 97.9 F 102.9 F H Pulse Rate 122 H 123 H 123 H Respiratory Rate 20 20 Blood Pressure 135/89 138/84 Pulse Oximetry 90 L 88 L Oxygen Delivery Method Room Air Room Air 01/31/25 09:11 Temperature 98.4 F Pulse Rate 114 H Respiratory Rate 16 Blood Pressure 131/68 Pulse Oximetry 90 L Oxygen Delivery Method BiPAP BMI result Body Mass Index 58.8 Labs 01/30/25 22:35 01/30/25 22:35 Labs: Laboratory Results - last 48 hr 01/29/25 01/30/25 01/31/25 15:35 22:35 05:46 WBC 7.5 RBC 4.83 Hgb 12.4 L Hct 40.2 L MCV 83.2 MCH 25.7 L MCHC 30.8 L RDW 13.9 Plt Count 231 MPV 9.2 L Immature Gran % (Auto) 0.8 H Neut % (Auto) 70.0 Lymph % (Auto) 14.4 L [place] % (Auto) 11.9 H Eos % (Auto) 2.4 Baso % (Auto) 0.5 Lymph # (Auto) 1.1 L [place] # (Auto) 0.9 Eos # (Auto) 0.2 Baso # (Auto) 0.0 Abs Immat Gran (auto) 0.06 H Absolute Neuts (auto) 5.2 Absolute Nucleated RBC 0.000 Nucleated RBC % (auto) 0.0 Sodium 138 Potassium 4.3 Chloride 102 Carbon Dioxide 32 H Anion Gap 8 L BUN 10 Creatinine 1.13 Estim Creat Clear Calc 151.0 Estimated GFR > 60 Random Glucose 114 Lactic Acid 0.9 Calcium 9.0 Total Bilirubin 0.2 AST 53 H ALT 53 H Alkaline Phosphatase 87 Total Creatine Kinase 385 H NT-Pro-B Natriuret Pep < 15.8 Total Protein 7.0 Albumin 4.1 Urine Color Yellow Urine Appearance Clear Urine pH 8.0 Ur Specific [place] <= 1.005 Urine Protein Negative Urine Glucose (UA) Negative Urine Ketones Negative Urine Blood Negative Urine Nitrite Negative Ur Leukocyte Esterase Negative Influenza Type A (PCR) Influenza Type B (PCR) RSV RNA Qual (PCR) SARS-CoV-2 RNA (RT-PCR) S. pyogenes GrpA LOUISA Negative 01/31/25 09:47 WBC RBC Hgb Hct MCV MCH MCHC RDW Plt Count MPV Immature Gran % (Auto) Neut % (Auto) Lymph % (Auto) [place] % (Auto) Eos % (Auto) Baso % (Auto) Lymph # (Auto) [place] # (Auto) Eos # (Auto) Baso # (Auto) Abs Immat Gran (auto) Absolute Neuts (auto) Absolute Nucleated RBC Nucleated RBC % (auto) Sodium Potassium Chloride Carbon Dioxide Anion Gap BUN Creatinine Estim Creat Clear Calc Estimated GFR Random Glucose Lactic Acid Calcium Total Bilirubin AST ALT Alkaline Phosphatase Total Creatine Kinase NT-Pro-B Natriuret Pep Total Protein Albumin Urine Color Urine Appearance Urine pH Ur Specific [place] Urine Protein Urine Glucose (UA) Urine Ketones Urine Blood Urine Nitrite Ur Leukocyte Esterase Influenza Type A (PCR) Cancelled Influenza Type B (PCR) Cancelled RSV RNA Qual (PCR) Cancelled SARS-CoV-2 RNA (RT-PCR) Cancelled S. pyogenes GrpA LOUISA Medications Medications Current Medications Acetaminophen (Acetaminophen 325 Mg Tablet) 650 mg PO Q6H PRN PRN Reason: Headache/Pain, Scale 1-10 Last Admin: 01/30/25 20:14 Dose: 650 mg Al Hydroxide/Mg Hydroxide (Magnesium Hydrox/Alum Hydrox 30 Ml Oral.Susp) 30 ml PO Q6H PRN PRN Reason: Heartburn/Nausea Last Admin: 01/31/25 02:21 Dose: 30 ml Albuterol Sulfate (Albuterol Sulfate 90 Mcg 8 Gm Inhaler) 1 puff INHALE QID PRN PRN Reason: Wheezing Last Admin: 01/30/25 20:03 Dose: 1 puff Albuterol/Ipratropium (Albuterol/Iprat 2.5/0.5mg 3 Ml Ampul.Neb) 3 ml INHALE RQ6H WHILE AWAKE [facility] Amlodipine Besylate (Amlodipine Besylate 10 Mg Tablet) 10 mg PO DAILY [facility]; Protocol Last Admin: 01/31/25 09:26 Dose: 10 mg Artificial Tears (Artificial Tears 15 Ml Drops) 2 drop EYE-BOTH Q4H PRN PRN Reason: Dry Eyes Benzocaine (Throat Lozenge, Medicated Lozenge) 1 lozenge MUCOUS MEM Q2H PRN PRN Reason: Sore Throat Last Admin: 01/30/25 09:42 Dose: 1 lozenge Benztropine Mesylate (Benztropine Mesylate 1 Mg Tablet) 1 mg PO BID [facility] Last Admin: 01/31/25 09:26 Dose: 1 mg Chlorpromazine HCl (Chlorpromazine Hcl 25 Mg Tablet) 25 mg PO Q6H PRN On Hold: 01/30/25 22:16 PRN Reason: anxiety, agitation Last Admin: 01/30/25 16:44 Dose: 25 mg Clozapine (Clozapine 25 Mg Tablet) 150 mg PO BEDTIME [facility] On Hold: 01/30/25 22:16 Last Admin: 01/30/25 21:17 Dose: 150 mg Cyclobenzaprine HCl (Cyclobenzaprine Hcl 10 Mg Tablet) 10 mg PO TID PRN PRN Reason: back muscle spasm Last Admin: 01/30/25 11:20 Dose: 10 mg Docusate Sodium (Docusate Sodium 100 Mg Capsule) 100 mg PO BID [facility] Last Admin: 01/31/25 09:26 Dose: 100 mg Duloxetine HCl (Duloxetine Hcl 30 Mg Capsule.Dr) 30 mg PO DAILY [facility] Last Admin: 01/31/25 09:26 Dose: 30 mg Erythromycin (Erythromycin Base 0.5% Oph Oin 1 Gm Tube) 1 cm EYE-RIGHT TID [facility] Last Admin: 01/31/25 09:24 Dose: 1 cm Folic Acid (Folic Acid 1 Mg Tablet) 1 mg PO DAILY [facility] Last Admin: 01/31/25 09:26 Dose: 1 mg Gabapentin (Gabapentin 300 Mg Capsule) 300 mg PO TID [facility] Last Admin: 01/31/25 09:26 Dose: 300 mg Guaifenesin (Guaifenesin 100 Mg/5 Ml 5 Ml Liquid) 5 ml PO Q4H PRN PRN Reason: Cough Hydroxyzine HCl (Hydroxyzine Hcl 50 Mg Tablet) 50 mg PO Q6H PRN PRN Reason: mild anxiety Last Admin: 01/29/25 15:22 Dose: 50 mg Ibuprofen (Ibuprofen 600 Mg Tablet) 600 mg PO Q8H PRN PRN Reason: back pain Lactic Acid (Ammonium Lactate 12 % Lotion 226 Gm Bottle) 1 appl TOPICAL DAILY [facility]; Protocol Last Admin: 01/31/25 09:26 Dose: 1 appl Lamotrigine (Lamotrigine 25 Mg Tablet) 25 mg PO DAILY [facility] Last Admin: 01/31/25 09:26 Dose: 25 mg Loratadine (Loratadine 10 Mg Tablet) 10 mg PO DAILY [facility] Last Admin: 01/31/25 09:26 Dose: 10 mg Losartan Potassium (Losartan Potassium 50 Mg Tablet) 100 mg PO DAILY [facility]; Protocol Last Admin: 01/31/25 09:25 Dose: 100 mg Magnesium Hydroxide (Milk Of Magnesia 30 Ml Oral.Susp) 30 ml PO DAILY PRN PRN Reason: Constipation Melatonin (Melatonin 3 Mg Tablet) 3 mg PO BEDTIME PRN PRN Reason: Sleep Last Admin: 01/30/25 23:37 Dose: 3 mg Metformin HCl (Metformin Hcl Er 500 Mg Tab.Er.24h) 500 mg PO BID [facility] Last Admin: 01/31/25 09:26 Dose: 500 mg Metoprolol Succinate (Metoprolol Succinate Er 50 Mg Tab.Er.24h) 50 mg PO DAILY [facility]; Protocol Last Admin: 01/31/25 09:26 Dose: 50 mg Multi-Ingred Cream/Lotion/Oil/Oint (Mineral Oil/Petrolatum,White 113 Gm Jar) 1 appl TOPICAL QID PRN; Protocol PRN Reason: Dry Skin Multi-Ingred Medicated Throat [place] (Throat [place], Medicated 177 Ml Bottle) 1 spray MUCOUS MEM Q2H PRN PRN Reason: Sore Throat Last Admin: 01/31/25 05:30 Dose: 1 spray Naltrexone HCl (Naltrexone Hcl 50 Mg Tablet) 50 mg PO DAILY [facility] Last Admin: 01/31/25 09:26 Dose: 50 mg Nicotine (Nicotine 21 Mg Patch.Td24) 21 mg TRANSDERMA DAILY [facility] Last Admin: 01/31/25 09:26 Dose: 21 mg Nicotine Polacrilex (Nicotine Polacrilex 2 Mg Gum) 4 mg BUCCAL Q2H PRN PRN Reason: Nicotine Cravings Last Admin: 01/30/25 09:42 Dose: 4 mg Non-Formulary Medication (Tirzepatide [Mounjaro]) 2.5 mg SUBCUT SA [facility] Nystatin (Nystatin Oral Susp 500,000 Unit/5 Ml Oral.Susp) 400,000 unit PO QID [facility]; Protocol Stop: 02/02/25 23:54 Last Admin: 01/31/25 09:33 Dose: 400,000 unit Ondansetron HCl (Ondansetron Odt 4 Mg Tab.Rapdis) 4 mg TRANSLINGU Q8H PRN PRN Reason: Nausea and Vomiting Polyethylene Glycol (Polyethylene Glycol 3350 17 Gm Powd.Pack) 17 gm PO DAILY [facility] Last Admin: 01/31/25 09:33 Dose: 17 gm Prazosin HCl (Prazosin Hcl 1 Mg Capsule) 4 mg PO BEDTIME [facility]; Protocol Last Admin: 01/30/25 21:19 Dose: 4 mg Prednisone (Prednisone 20 Mg Tablet) 40 mg PO DAILY [facility] Stop: 02/04/25 08:59 Senna (Sennosides 8.6 Mg Tablet) 17.2 mg PO BEDTIME [facility] Last Admin: 01/30/25 21:16 Dose: 17.2 mg Sodium Chloride (Sodium Chloride 0.65 % Nasal 44 Ml Sprbtl) 1 spray NOSTRIL-B Q4H PRN PRN Reason: Nasal Congestion Thiamine HCl (Thiamine Hcl 100 Mg Tablet) 100 mg PO DAILY [facility] Last Admin: 01/31/25 09:26 Dose: 100 mg Tiotropium [place] (Tiotropium [place] 2.5 Mcg 1 Puff/2.5 Mcg Mist.Inhal) 2 puff INHALE RDAILY [facility] Last Admin: 01/31/25 09:16 Dose: 2 puff Trazodone HCl (Trazodone Hcl 50 Mg Tablet) 50 mg PO BEDTIME MRX1 PRN PRN Reason: Insomnia Last Admin: 01/30/25 23:36 Dose: 50 mg Trazodone HCl (Trazodone Hcl 100 Mg Tablet) 100 mg PO BEDTIME [facility] Last Admin: 01/30/25 21:21 Dose: 100 mg Allergies Allergies Allergy/AdvReac Type Severity Reaction Status Date / Time lisinopril Allergy Unknown Cough Verified 01/26/25 11:49 clonidine AdvReac Unknown Unknown Verified 01/26/25 11:49 Assessment & Plan Assessment & Plan (1) Schizoaffective disorder: Status: Acute Code(s): F25.9 - Schizoaffective disorder, unspecified (2) Diabetes: Status: Acute Code(s): E11.9 - Type 2 diabetes mellitus without complications (3) Severe obesity: Status: Acute Code(s): E66.01 - Morbid (severe) obesity due to excess calories Plan 34 yo male, known to our service, with a history of schizoaffective disorder, depressed, DMII, HTN. Patient was recently discharged from on 01/24 and represents now in the face of not getting Clozaril. Patient reports that for some reason clozapine was not available and he did not get a least 1 day. He said that his neighbors were causing problems for him, saying rude things to him and he started to get a little suicidal so he came to the emergency room. Patient reports that AH also returned. Denies any substance abuse Formulation/clinical reasoning: Patient has been off clozapine for 1 maybe 2 days at most; will restart at 75 mg then quickly titrate back to home dose of 125 mg 01/29/25: 01/29/25: Reports URI sx- resp panel negative, throat culture pending. Discussed preciptants to admit with pt. Pt told crisis he was not ready to leave on Monday-that regime was not working and he was hearing voices. Today he reports CAH, no sleep in 3 days, +SI, anxiety and feeling unable to cope. Reviewed our meeting prior to discharge and discussd with pt what has changed. He discussed not being able to feel safe staying alone in the home- I don't want to live there . I want to go to respite and a retirement. Discussed this as the reason for his return. We also discussed his pharmacy not having Clozaril in stock, however the unit was not informed as the rx had been sent the day before discharge. Pt asks to live at [facility] until he can find a safe place with others to live. Plan: Increase Clozapine to 125 mg hs Throat culture, sore throat drops and spray prn 01/30/25: Team reports pt slept eight hours with one awakening for a prn and a snack. Not attending groups. Reports URI sx. Throat culture is negative. Met with pt and Venus Maria LCSW. Discussed precipitants to admit and parameters set by OP team and ACCS-no current housing options other than home although they are looking for future options for pt. Discussed with pt that while here he needs to attend all groups and participate in his treatment. He argued that because of URI sx, he needed to remain in bed, resting. He expressed distress that these parameters were set and has signed a three day notice of intent this afternoon. Plan: Increase Clozapine to 150 mg HS Plan: CV Q 15 minute checks Increase Clozaril to 125 mg tonight; patient received Clozaril 75 mg last night Continue other home medications Time Spent With Patient Time: Total time managing care of this patient today ____ minutes.
[2025-01-31 10:32] LABS: Chlamydia pneumoniae PCR Not Detected (Not Detect.); Coronavirus 229E PCR Not Detected (Not Detect.); Coronavirus HKU1 PCR Not Detected (Not Detect.); Coronavirus NL63 PCR Not Detected (Not Detect.); Coronavirus OC43 PCR Not Detected (Not Detect.); Influenza A H3 PCR Detected (Not Detect.); RSV PCR Not Detected (Not Detect.); Rhino/Enterovirus PCR Not Detected (Not Detect.)
[2025-01-31 10:58] LABS: Influenza A H1 PCR Not Detected (Not Detect.); Influenza A H1-2009 PCR Not Detected (Not Detect.); SARS-CoV-2 PCR Not Detected (Not Detect.)
--- NOTE | 2025-01-31 11:09 | P.PNIM_ITS ---
Subjective Subjective Date of Service: 01/31/25 Interval History: Patient seen and examined, continues with diffuse wheezing. Oxygen saturation high 80s to low 90s. Patient positive for influenza A. At baseline patient has severe sleep apnea uses CPAP machine. Tamiflu ordered. On exam he has diffuse wheezing, no acute distress. Frequent nonproductive cough. Review of Systems + shortness of breath. No chest pain, headaches, dysuria, abdominal pain or discomfort, nausea, vomiting or diarrhea. Denies fever or chills. Physical Exam 2 Exam: Exam: Alert and oriented X3, calm and cooperative. Answers questions. Neuro: CN II-X11 intact, no deficits, visual acuity intact EYES: PERRLA, EOM intact ENT: Hearing intact, MMM Cardiac: S1 S2 RRR, No ectopy Pulmonary: lungs with wheezes throughout. + [employer] cough No increased WOB. Abdominal: BS active in all 4 quadrants, no guarding or tenderness MSK: Strength 5/5 upper and lower extremities : Deferred Extremities: No edema in lower extremities Psych: Mood stable. Skin: Warm and dry, Intact. No cyanosis. Vital Signs: Vital Signs: Last Vital Signs Temp 98.4 F 01/31/25 09:11 Pulse 114 H 01/31/25 09:11 Resp 16 01/31/25 09:11 BP 131/68 01/31/25 09:11 Pulse Ox 90 L 01/31/25 09:11 O2 Del Method BiPAP 01/31/25 09:11 O2 Flow Rate 2 01/27/25 10:58 BMI result Body Mass Index 58.8 Objective Data Active Medications Acetaminophen (Acetaminophen 325 Mg Tablet) 650 mg PO Q6H PRN PRN Reason: Headache/Pain, Scale 1-10 Last Admin: 01/30/25 20:14 Dose: 650 mg Documented By: GENNY Al Hydroxide/Mg Hydroxide (Magnesium Hydrox/Alum Hydrox 30 Ml Oral.Susp) 30 ml PO Q6H PRN PRN Reason: Heartburn/Nausea Last Admin: 01/31/25 02:21 Dose: 30 ml Documented By: GENNY Albuterol Sulfate (Albuterol Sulfate 90 Mcg 8 Gm Inhaler) 1 puff INHALE QID PRN PRN Reason: Wheezing Last Admin: 01/30/25 20:03 Dose: 1 puff Documented By: GENNY Albuterol/Ipratropium (Albuterol/Iprat 2.5/0.5mg 3 Ml Ampul.Neb) 3 ml INHALE RQ6H WHILE AWAKE [facility] Amlodipine Besylate (Amlodipine Besylate 10 Mg Tablet) 10 mg PO DAILY [facility]; Protocol Last Admin: 01/31/25 09:26 Dose: 10 mg Documented By: PATRICK Artificial Tears (Artificial Tears 15 Ml Drops) 2 drop EYE-BOTH Q4H PRN PRN Reason: Dry Eyes Benzocaine (Throat Lozenge, Medicated Lozenge) 1 lozenge MUCOUS MEM Q2H PRN PRN Reason: Sore Throat Last Admin: 01/30/25 09:42 Dose: 1 lozenge Documented By: DORA Benztropine Mesylate (Benztropine Mesylate 1 Mg Tablet) 1 mg PO BID [facility] Last Admin: 01/31/25 09:26 Dose: 1 mg Documented By: PATRICK Chlorpromazine HCl (Chlorpromazine Hcl 25 Mg Tablet) 25 mg PO Q6H PRN On Hold: 01/30/25 22:16 PRN Reason: anxiety, agitation Last Admin: 01/30/25 16:44 Dose: 25 mg Documented By: KINSEY Clozapine (Clozapine 25 Mg Tablet) 150 mg PO BEDTIME [facility] On Hold: 01/30/25 22:16 Last Admin: 01/30/25 21:17 Dose: 150 mg Documented By: GENNY Cyclobenzaprine HCl (Cyclobenzaprine Hcl 10 Mg Tablet) 10 mg PO TID PRN PRN Reason: back muscle spasm Last Admin: 01/30/25 11:20 Dose: 10 mg Documented By: DORA Docusate Sodium (Docusate Sodium 100 Mg Capsule) 100 mg PO BID [facility] Last Admin: 01/31/25 09:26 Dose: 100 mg Documented By: PATRICK Duloxetine HCl (Duloxetine Hcl 30 Mg Capsule.) 30 mg PO DAILY [facility] Last Admin: 01/31/25 09:26 Dose: 30 mg Documented By: PATRICK Erythromycin (Erythromycin Base 0.5% Oph Oin 1 Gm Tube) 1 cm EYE-RIGHT TID [facility] Last Admin: 01/31/25 09:24 Dose: 1 cm Documented By: PATRICK Folic Acid (Folic Acid 1 Mg Tablet) 1 mg PO DAILY [facility] Last Admin: 01/31/25 09:26 Dose: 1 mg Documented By: PATRICK Gabapentin (Gabapentin 300 Mg Capsule) 300 mg PO TID [facility] Last Admin: 01/31/25 09:26 Dose: 300 mg Documented By: PATRICK Guaifenesin (Guaifenesin 100 Mg/5 Ml 5 Ml Liquid) 5 ml PO Q4H PRN PRN Reason: Cough Hydroxyzine HCl (Hydroxyzine Hcl 50 Mg Tablet) 50 mg PO Q6H PRN PRN Reason: mild anxiety Last Admin: 01/29/25 15:22 Dose: 50 mg Documented By: DORA Ibuprofen (Ibuprofen 600 Mg Tablet) 600 mg PO Q8H PRN PRN Reason: back pain Lactic Acid (Ammonium Lactate 12 % Lotion 226 Gm Bottle) 1 appl TOPICAL DAILY [facility]; Protocol Last Admin: 01/31/25 09:26 Dose: 1 appl Documented By: PATRICK Lamotrigine (Lamotrigine 25 Mg Tablet) 25 mg PO DAILY [facility] Last Admin: 01/31/25 09:26 Dose: 25 mg Documented By: PATRICK Loratadine (Loratadine 10 Mg Tablet) 10 mg PO DAILY [facility] Last Admin: 01/31/25 09:26 Dose: 10 mg Documented By: PATRICK Losartan Potassium (Losartan Potassium 50 Mg Tablet) 100 mg PO DAILY [facility]; Protocol Last Admin: 01/31/25 09:25 Dose: 100 mg Documented By: PATRICK Magnesium Hydroxide (Milk Of Magnesia 30 Ml Oral.Susp) 30 ml PO DAILY PRN PRN Reason: Constipation Melatonin (Melatonin 3 Mg Tablet) 3 mg PO BEDTIME PRN PRN Reason: Sleep Last Admin: 01/30/25 23:37 Dose: 3 mg Documented By: GENNY Metformin HCl (Metformin Hcl Er 500 Mg Tab.Er.24h) 500 mg PO BID [facility] Last Admin: 01/31/25 09:26 Dose: 500 mg Documented By: PATRICK Metoprolol Succinate (Metoprolol Succinate Er 50 Mg Tab.Er.24h) 50 mg PO DAILY [facility]; Protocol Last Admin: 01/31/25 09:26 Dose: 50 mg Documented By: PATRICK Multi-Ingred Cream/Lotion/Oil/Oint (Mineral Oil/Petrolatum,White 113 Gm Jar) 1 appl TOPICAL QID PRN; Protocol PRN Reason: Dry Skin Multi-Ingred Medicated Throat [place] (Throat [place], Medicated 177 Ml Bottle) 1 spray MUCOUS MEM Q2H PRN PRN Reason: Sore Throat Last Admin: 01/31/25 05:30 Dose: 1 spray Documented By: CAROL Naltrexone HCl (Naltrexone Hcl 50 Mg Tablet) 50 mg PO DAILY [facility] Last Admin: 01/31/25 09:26 Dose: 50 mg Documented By: PATRICK Nicotine (Nicotine 21 Mg Patch.Td24) 21 mg TRANSDERMA DAILY [facility] Last Admin: 01/31/25 09:26 Dose: 21 mg Documented By: PATRICK Nicotine Polacrilex (Nicotine Polacrilex 2 Mg Gum) 4 mg BUCCAL Q2H PRN PRN Reason: Nicotine Cravings Last Admin: 01/31/25 09:46 Dose: 4 mg Documented By: PATRICK Non-Formulary Medication (Tirzepatide [Mounjaro]) 2.5 mg SUBCUT SA [facility] Nystatin (Nystatin Oral Susp 500,000 Unit/5 Ml Oral.Susp) 400,000 unit PO QID [facility]; Protocol Stop: 02/02/25 23:54 Last Admin: 01/31/25 09:33 Dose: 400,000 unit Documented By: PATRICK Ondansetron HCl (Ondansetron Odt 4 Mg Tab.Rapdis) 4 mg TRANSLINGU Q8H PRN PRN Reason: Nausea and Vomiting Oseltamivir Phosphate (Oseltamivir Phosphate 75 Mg Capsule) 75 mg PO Q12H [facility] Stop: 02/04/25 23:16 Polyethylene Glycol (Polyethylene Glycol 3350 17 Gm Powd.Pack) 17 gm PO DAILY [facility] Last Admin: 01/31/25 09:33 Dose: 17 gm Documented By: PATRICK Prazosin HCl (Prazosin Hcl 1 Mg Capsule) 4 mg PO BEDTIME [facility]; Protocol Last Admin: 01/30/25 21:19 Dose: 4 mg Documented By: GENNY Prednisone (Prednisone 20 Mg Tablet) 40 mg PO DAILY [facility] Stop: 02/04/25 08:59 Senna (Sennosides 8.6 Mg Tablet) 17.2 mg PO BEDTIME [facility] Last Admin: 01/30/25 21:16 Dose: 17.2 mg Documented By: GENNY Sodium Chloride (Sodium Chloride 0.65 % Nasal 44 Ml Sprbtl) 1 spray NOSTRIL-B Q4H PRN PRN Reason: Nasal Congestion Thiamine HCl (Thiamine Hcl 100 Mg Tablet) 100 mg PO DAILY [facility] Last Admin: 01/31/25 09:26 Dose: 100 mg Documented By: PATRICK Tiotropium [place] (Tiotropium [place] 2.5 Mcg 1 Puff/2.5 Mcg Mist.Inhal) 2 puff INHALE RDAILY [facility] Last Admin: 01/31/25 09:16 Dose: 2 puff Documented By: PATRICK Trazodone HCl (Trazodone Hcl 50 Mg Tablet) 50 mg PO BEDTIME MRX1 PRN PRN Reason: Insomnia Last Admin: 01/30/25 23:36 Dose: 50 mg Documented By: GENNY Trazodone HCl (Trazodone Hcl 100 Mg Tablet) 100 mg PO BEDTIME [facility] Last Admin: 01/30/25 21:21 Dose: 100 mg Documented By: GENNY Labs 01/30/25 22:35 01/30/25 22:35 Labs: Laboratory Results - last 24 hr 01/30/25 01/30/25 01/31/25 22:35 23:55 05:46 MCV 83.2 MCH 25.7 L MCHC 30.8 L RDW 13.9 Plt Count 231 MPV 9.2 L Immature Gran % (Auto) 0.8 H Neut % (Auto) 70.0 Lymph % (Auto) 14.4 L [place] % (Auto) 11.9 H Eos % (Auto) 2.4 Baso % (Auto) 0.5 Lymph # (Auto) 1.1 L [place] # (Auto) 0.9 Eos # (Auto) 0.2 Baso # (Auto) 0.0 Abs Immat Gran (auto) 0.06 H Absolute Neuts (auto) 5.2 Absolute Nucleated RBC 0.000 Nucleated RBC % (auto) 0.0 Anion Gap 8 L Estim Creat Clear Calc 151.0 Estimated GFR > 60 Random Glucose 114 Lactic Acid 0.9 Calcium 9.0 Total Bilirubin 0.2 AST 53 H ALT 53 H Alkaline Phosphatase 87 Total Creatine Kinase 385 H NT-Pro-B Natriuret Pep < 15.8 Total Protein 7.0 Albumin 4.1 Urine Color Yellow Urine Appearance Clear Urine pH 8.0 Ur Specific [place] <= 1.005 Urine Protein Negative Urine Glucose (UA) Negative Urine Ketones Negative Urine Blood Negative Urine Nitrite Negative Ur Leukocyte Esterase Negative Respiratory Panel White See Note Adenovirus (Rapid PCR) Detected A B.pert (TEM-PCR) Not Detected B.parapertussis DNA PCR Not Detected C. pneumoniae DNA (PCR) Not Detected Coronavirus OC43 (PCR) Not Detected Coronavirus HKU1 (PCR) Not Detected Coronavirus 229E (PCR) Not Detected Coronavirus NL63 (PCR) Not Detected Human Metapneumovir PCR Not Detected Influenza A (RT-PCR) Detected A Influenza A (H1) PCR Not Detected Influ A (H1/09) PCR Not Detected Influenza A (H3) PCR Detected A Influenza Type A (PCR) Influenza B (RT-PCR) Not Detected Influenza Type B (PCR) M. pneumoniae (PCR) Not Detected Parainfluenza 1 (PCR) Not Detected Parainfluenza 2 (PCR) Not Detected Parainfluenza 3 (PCR) Not Detected Parainfluenza 4 (PCR) Not Detected RSV (PCR) Not Detected RSV RNA Qual (PCR) Entero/Rhino (PCR) Not Detected SARS-CoV-2 RNA (RT-PCR) Not Detected 01/31/25 09:47 MCV MCH MCHC RDW Plt Count MPV Immature Gran % (Auto) Neut % (Auto) Lymph % (Auto) [place] % (Auto) Eos % (Auto) Baso % (Auto) Lymph # (Auto) [place] # (Auto) Eos # (Auto) Baso # (Auto) Abs Immat Gran (auto) Absolute Neuts (auto) Absolute Nucleated RBC Nucleated RBC % (auto) Anion Gap Estim Creat Clear Calc Estimated GFR Random Glucose Lactic Acid Calcium Total Bilirubin AST ALT Alkaline Phosphatase Total Creatine Kinase NT-Pro-B Natriuret Pep Total Protein Albumin Urine Color Urine Appearance Urine pH Ur Specific [place] Urine Protein Urine Glucose (UA) Urine Ketones Urine Blood Urine Nitrite Ur Leukocyte Esterase Respiratory Panel White Adenovirus (Rapid PCR) B.pert (TEM-PCR) B.parapertussis DNA PCR C. pneumoniae DNA (PCR) Coronavirus OC43 (PCR) Coronavirus HKU1 (PCR) Coronavirus 229E (PCR) Coronavirus NL63 (PCR) Human Metapneumovir PCR Influenza A (RT-PCR) Influenza A (H1) PCR Influ A (H1/09) PCR Influenza A (H3) PCR Influenza Type A (PCR) Cancelled Influenza B (RT-PCR) Influenza Type B (PCR) Cancelled M. pneumoniae (PCR) Parainfluenza 1 (PCR) Parainfluenza 2 (PCR) Parainfluenza 3 (PCR) Parainfluenza 4 (PCR) RSV (PCR) RSV RNA Qual (PCR) Cancelled Entero/Rhino (PCR) SARS-CoV-2 RNA (RT-PCR) Cancelled Assessment and Plan (1) Constipation: Status: Acute Plan 34-year-old male with past medical history listed below presented to the emergency department with suicidal ideation. Admitted for inpatient stabilization. Schizoaffective disorder/suicidal ideation/substance use disorder/alcohol use disorder Treatment per psychiatric team Influenza A Duo nebs q.6 hours Requested RT evaluate patient Start Tamiflu Type 2 diabetes Continue metformin b.i.d. Continue Mounjaro Recent A1c 5.8 done in August. Hypertension Continue amlodipine and Cozaar, Toprol Blood pressure stable Severe ESHA on CPAP/Sleep-related hypoxia Patient utilizing CPAP at HS Will need CPAP use during nap time or supplemental oxygen to maintain sats greater than 90% GERD We will increase omeprazole to 20 mg b.i.d. Check CMP and CBC to rule out infection Constipation Colace b.i.d. and senna at HS MiraLax daily Encourage water and fiber intake. Thank you for allowing me to participate in the care of this patient. Will follow with you, please notify medical provider with any changes in condition or concerns. Quality Stroke Does the patient have a stroke diagnosis?: No VTE Prior VTE?: No VTE Risk Level:: Medical - low VTE Device Contraindication: Treatment Not Indicated VTE Drug Contraindication: Treatment Not Indicated
[2025-01-31] MEDS: Albuterol/Iprat 2.5/0.5MG 3 ML AMPUL.NEB INHALE (12:27)
[2025-01-31 12:28] VITALS: PULSE 98; RESP 24; O2SAT 84
--- NOTE | 2025-01-31 12:28 | PC.RT ---
Addendum entered by Jaun Ricrado, RT 01/31/25 12:37: pt was a rapid last night per zhane crowder Original Note: CHIEF INFORMATION OFFICER asked RT tp assess pt . This RT went up to M% found pt on his bipa machine without the 02 hooked up. Sats were 84%. 02 concentrator was in room but the line was not on pt mask deliveringhim oxygen. Pt has been on room air also with low sats. Pt donna has Flu A and requiring more oxygen needs as well as nebulizer treatments. Recommended to Zhane Crowder that pt be chmaged to a medica floor as oxygen needs are increase and nebs added. pt was an RT last night due to hypoxia.
--- NOTE | 2025-01-31 12:52 | PM.PSYDC ---
DS: Providers Provider Date of admission: 01/27/25 13:49 Date of discharge: 01/31/25 Primary care physician: Unknown Physician Admitting clinician: Vahid Lee Attending physician on admission: Vahid Lee Consults: 01/30/25 21:44 Consult to Hospitalist Stat Comment: vomiting, sore throat, lung sounds diminished Consulting Provider[place] [facility] Reason For Exam: T 103.5; P123, 138/84, O2 88-96, CPAP poor respons Attending physician on discharge: Dayron Moreau Discharging clinician: Manasa Hutchison DS: Diagnosis Discharge Diagnosis (1) Constipation: Status: Acute (2) Schizoaffective disorder: Status: Acute (3) Influenza A: Status: Acute (4) Acute hypoxic respiratory failure: Status: Acute DS: Medications Discharge Medications Home Medications: Home Medications ?Medication ?Instructions ?Recorded ?Confirmed ondansetron 4 mg disintegrating 4 mg PO Q8H PRN Nausea And Vomiting 09/12/24 01/27/25 tablet ammonium lactate 12 % lotion 1 appl topical DAILY 09/13/24 01/27/25 tirzepatide 2.5 mg/0.5 mL 2.5 mg subcut SA 01/27/25 01/27/25 subcutaneous pen injector (Mari) Previous Rx's ?Medication ?Instructions ?Recorded albuterol sulfate 90 mcg/actuation 1 inh inhalation QID PRN Wheezing 01/23/25 aerosol inhaler #1 inhaler amlodipine 10 mg tablet 10 mg PO DAILY #30 tabs 01/23/25 benzocaine 15 mg-menthol 3.6 mg 1 evelyn mucous membrane Q2H PRN Sore 01/23/25 lozenges (Sore Throat (benzocaine Throat #30 evelyn with menthol)) benztropine 1 mg tablet 1 mg PO BID #60 tabs 01/23/25 chlorpromazine 25 mg tablet 25 mg PO Q6H PRN anxiety, 01/23/25 agitation #90 tabs cyclobenzaprine 10 mg tablet 10 mg PO TID PRN back muscle spasm 01/23/25 30 days #90 tabs docusate sodium 100 mg capsule 100 mg PO BID #60 caps 01/23/25 duloxetine 30 mg capsule,delayed 30 mg PO DAILY #30 caps 01/23/25 release folic acid 1 mg tablet 1 mg PO DAILY #30 tabs 01/23/25 gabapentin 300 mg capsule 300 mg PO TID #90 caps 01/23/25 hydroxyzine HCl 25 mg tablet 50 mg (2 x 25 mg) PO Q6H PRN mild 01/23/25 anxiety #60 tabs ibuprofen 600 mg tablet 600 mg PO Q8H PRN back pain #30 01/23/25 tabs lamotrigine 25 mg tablet 25 mg PO DAILY #30 tabs 01/23/25 lanolin alcohols-mineral 1 appl topical QID PRN Dry Skin 01/23/25 oil-w.petrolatum-ceresin topical #226 grams cream (Eucerin topical cream) loratadine 10 mg tablet 10 mg PO DAILY #30 tabs 01/23/25 losartan 50 mg tablet 100 mg PO DAILY #60 tabs 01/23/25 melatonin 3 mg tablet 3 mg PO BEDTIME PRN Sleep #30 tabs 01/23/25 metformin 500 mg tablet,extended 500 mg PO BID #60 tabs 01/23/25 release 24 hr metoprolol succinate 50 mg 50 mg PO DAILY #30 tabs 01/23/25 tablet,extended release 24 hr naltrexone 50 mg tablet 50 mg PO DAILY #30 tabs 01/23/25 nicotine (polacrilex) 2 mg gum 4 mg buccal Q2H PRN Nicotine 01/23/25 Cravings #200 ea nicotine 21 mg/24 hr daily 1 patch transdermal DAILY #30 ea 01/23/25 transdermal patch peg [id number] 1 2 drp ophthalmic (eye) Q4H PRN Dry 01/23/25 %-0.2 %-0.2 % eye drops Eyes #10 mL (Artificial Tears ([id number])) polyethylene glycol 3350 17 gram 17 g PO DAILY #30 ea 01/23/25 oral powder packet prazosin 1 mg capsule 4 mg PO BEDTIME #120 caps 01/23/25 sennosides 8.6 mg tablet (Senna 17.2 mg (2 x 8.6 mg) PO BEDTIME 01/23/25 Lax) #30 tabs thiamine mononitrate (vit B1) 100 100 mg PO DAILY #30 tabs 01/23/25 mg tablet trazodone 100 mg tablet 100 mg PO BEDTIME #30 tabs 01/23/25 umeclidinium 62.5 mcg/actuation 1 inh inhalation DAILY #1 inhaler 01/23/25 blister powder for inhalation (Incruse Ellipta) acetaminophen 325 mg tablet 650 mg (2 x 325 mg) PO Q6H PRN 01/31/25 Headache/Pain, Scale 1-10 #0 tabs aluminum-magnesium hydroxide 200 30 ml PO Q6H PRN Heartburn/Nausea 01/31/25 mg-200 mg/5 mL oral suspension #0 mL (MAG-AL) clozapine 25 mg tablet 150 mg (6 x 25 mg) PO BEDTIME #0 01/31/25 tabs erythromycin 5 mg/gram (0.5 %) eye 1 cm ophthalmic-Right TID #0 grams 01/31/25 ointment guaifenesin 100 mg/5 mL oral liquid 100 mg (5 mL) PO Q4H PRN Cough 01/31/25 #1,000 mL ipratropium 0.5 mg-albuterol 3 mg 3 ml inhalation RQ6H WHILE AWAKE 01/31/25 (2.5 mg base)/3 mL nebulization #0 mL soln magnesium hydroxide 400 mg/5 mL 30 ml PO DAILY PRN Constipation #0 01/31/25 oral suspension (Milk of Magnesia) mL nystatin 100,000 unit/mL oral 400,000 unit (4 mL) PO QID #0 mL 01/31/25 suspension oseltamivir 75 mg capsule (Tamiflu) 75 mg PO Q12H #0 caps 01/31/25 phenol 1.4 % mucosal aerosol spray 1 spray mucous membrane Q2H PRN 01/31/25 (Chloraseptic Throat Poyen) Sore Throat #0 mL prednisone 20 mg tablet 40 mg (2 x 20 mg) PO DAILY #0 tabs 01/31/25 sodium chloride 0.65 % nasal spray 1 spray intranasal Q4H PRN Nasal 01/31/25 aerosol (Deep Sea Nasal) Congestion #0 mL Mental Status Exam Mental Status Exam Patient Appearance: Fatigued and Disheveled Patient Orientation: Person, Place, Time and Situation Level of Consciousness: Alert Patient Behavior: Talkative, Anxious and Good Eye Contact Mood Description: Anxious and Apprehensive Affect Description: Anxious and Apprehensive Patient Cognition Impaired: No Ability to Follow Directions: Fair Speech Pattern: Spontaneous Speech Memory Description: Episodic Impaired Hallucinations: Auditory Delusions: Paranoid Ideation Thought Process: Distracted and Rumination Thought Content: positive for Circumstantial, positive for Perseveration and positive for Suicidal Ideation Depressive Symptoms: Increased Anxiety and Thoughts of /Suicide Judgement: Poor Data Data Completed and Pending Completed studies during hospitalization [Text1]: 01/26/25 01/26/25 01/26/25 12:49 12:52 13:24 WBC 7.7 RBC 4.87 Hgb 12.5 L Hct 40.2 L MCV 82.5 MCH 25.7 L MCHC 31.1 RDW 14.1 Plt Count 256 MPV 9.7 Immature Gran % (Auto) 0.5 H Neut % (Auto) 72.8 Lymph % (Auto) 17.2 L [place]undy % (Auto) 7.7 Eos % (Auto) 1.4 Baso % (Auto) 0.4 Lymph # (Auto) 1.3 [place] # (Auto) 0.6 Eos # (Auto) 0.1 Baso # (Auto) 0.0 Abs Immat Gran (auto) 0.04 H Absolute Neuts (auto) 5.6 Absolute Nucleated RBC 0.000 Nucleated RBC % (auto) 0.0 Sodium 142 Potassium 3.9 Chloride 108 Carbon Dioxide 25 Anion Gap 13 BUN 12 Creatinine 0.79 Estim Creat Clear Calc 216.0 Estimated GFR > 60 POC Glucose 103 Random Glucose 103 Lactic Acid Calcium 9.0 D Magnesium 1.9 Total Bilirubin 0.3 Direct Bilirubin 0.1 AST 77 H ALT 61 H Alkaline Phosphatase 91 Total Creatine Kinase NT-Pro-B Natriuret Pep Total Protein 7.4 Albumin 4.5 Lipase 7 L Urine Color Yellow Urine Appearance Clear Urine pH 7.5 Ur Specific [place] 1.025 Urine Protein 30 (1+) H Urine Glucose (UA) Negative Urine Ketones 15 Urine Blood Negative Urine Nitrite Negative Ur Leukocyte Esterase Negative Urine RBC 0-2 Urine WBC 0-5 Ur Squamous Epith Cells 0-2 Urine Bacteria None Seen Hyaline Casts 0-2 Urine Opiates Screen Not Detected Ur Buprenorphine Scrn Not Detected Ur Oxycodone Screen Not Detected Urine Methadone Screen Not Detected Urine Fentanyl Screen Not Detected Ur Barbiturates Screen Not Detected Ur Phencyclidine Scrn Not Detected Ur Amphetamines Screen Not Detected U Benzodiazepines Scrn Not Detected Urine Cocaine Screen Not Detected U Marijuana (THC) Screen Not Detected Respiratory Panel White Adenovirus (Rapid PCR) B.pert (TEM-PCR) B.parapertussis DNA PCR C. pneumoniae DNA (PCR) Coronavirus OC43 (PCR) Coronavirus HKU1 (PCR) Coronavirus 229E (PCR) Coronavirus NL63 (PCR) Human Metapneumovir PCR Influenza A (RT-PCR) Influenza A (H1) PCR Influ A (H1/) PCR Influenza A (H3) PCR Influenza Type A (PCR) Influenza B (RT-PCR) Influenza Type B (PCR) M. pneumoniae (PCR) Parainfluenza 1 (PCR) Parainfluenza 2 (PCR) Parainfluenza 3 (PCR) Parainfluenza 4 (PCR) RSV (PCR) RSV RNA Qual (PCR) Entero/Rhino (PCR) SARS-CoV-2 RNA (RT-PCR) S. pyogenes GrpA LOUISA 01/28/25 01/28/25 01/29/25 08:25 15:20 15:35 WBC RBC Hgb Hct MCV MCH MCHC RDW Plt Count MPV Immature Gran % (Auto) Neut % (Auto) Lymph % (Auto) [place] % (Auto) Eos % (Auto) Baso % (Auto) Lymph # (Auto) [place] # (Auto) Eos # (Auto) Baso # (Auto) Abs Immat Gran (auto) Absolute Neuts (auto) Absolute Nucleated RBC Nucleated RBC % (auto) Sodium 142 Potassium 4.3 Chloride 104 Carbon Dioxide 32 H Anion Gap 10 L BUN 12 Creatinine 0.93 Estim Creat Clear Calc 183.5 Estimated GFR > 60 POC Glucose Random Glucose 106 Lactic Acid Calcium 9.3 Magnesium Total Bilirubin 0.2 Direct Bilirubin AST 52 H ALT 53 H Alkaline Phosphatase 86 Total Creatine Kinase NT-Pro-B Natriuret Pep Total Protein 7.1 Albumin 4.3 Lipase Urine Color Urine Appearance Urine pH Ur Specific [place] Urine Protein Urine Glucose (UA) Urine Ketones Urine Blood Urine Nitrite Ur Leukocyte Esterase Urine RBC Urine WBC Ur Squamous Epith Cells Urine Bacteria Hyaline Casts Urine Opiates Screen Ur Buprenorphine Scrn Ur Oxycodone Screen Urine Methadone Screen Urine Fentanyl Screen Ur Barbiturates Screen Ur Phencyclidine Scrn Ur Amphetamines Screen U Benzodiazepines Scrn Urine Cocaine Screen U Marijuana (THC) Screen Respiratory Panel White Adenovirus (Rapid PCR) B.pert (TEM-PCR) B.parapertussis DNA PCR C. pneumoniae DNA (PCR) Coronavirus OC43 (PCR) Coronavirus HKU1 (PCR) Coronavirus 229E (PCR) Coronavirus NL63 (PCR) Human Metapneumovir PCR Influenza A (RT-PCR) Influenza A (H1) PCR Influ A (H1/) PCR Influenza A (H3) PCR Influenza Type A (PCR) NEGATIVE Influenza B (RT-PCR) Influenza Type B (PCR) NEGATIVE M. pneumoniae (PCR) Parainfluenza 1 (PCR) Parainfluenza 2 (PCR) Parainfluenza 3 (PCR) Parainfluenza 4 (PCR) RSV (PCR) RSV RNA Qual (PCR) NEGATIVE Entero/Rhino (PCR) SARS-CoV-2 RNA (RT-PCR) NEGATIVE S. pyogenes GrpA LOUISA Negative 01/30/25 01/30/25 01/31/25 22:35 23:55 05:46 WBC 7.5 RBC 4.83 Hgb 12.4 L Hct 40.2 L MCV 83.2 MCH 25.7 L MCHC 30.8 L RDW 13.9 Plt Count 231 MPV 9.2 L Immature Gran % (Auto) 0.8 H Neut % (Auto) 70.0 Lymph % (Auto) 14.4 L [place] % (Auto) 11.9 H Eos % (Auto) 2.4 Baso % (Auto) 0.5 Lymph # (Auto) 1.1 L [place] # (Auto) 0.9 Eos # (Auto) 0.2 Baso # (Auto) 0.0 Abs Immat Gran (auto) 0.06 H Absolute Neuts (auto) 5.2 Absolute Nucleated RBC 0.000 Nucleated RBC % (auto) 0.0 Sodium 138 Potassium 4.3 Chloride 102 Carbon Dioxide 32 H Anion Gap 8 L BUN 10 Creatinine 1.13 Estim Creat Clear Calc 151.0 Estimated GFR > 60 POC Glucose Random Glucose 114 Lactic Acid 0.9 Calcium 9.0 Magnesium Total Bilirubin 0.2 Direct Bilirubin AST 53 H ALT 53 H Alkaline Phosphatase 87 Total Creatine Kinase 385 H NT-Pro-B Natriuret Pep < 15.8 Total Protein 7.0 Albumin 4.1 Lipase Urine Color Yellow Urine Appearance Clear Urine pH 8.0 Ur Specific [place] <= 1.005 Urine Protein Negative Urine Glucose (UA) Negative Urine Ketones Negative Urine Blood Negative Urine Nitrite Negative Ur Leukocyte Esterase Negative Urine RBC Urine WBC Ur Squamous Epith Cells Urine Bacteria Hyaline Casts Urine Opiates Screen Ur Buprenorphine Scrn Ur Oxycodone Screen Urine Methadone Screen Urine Fentanyl Screen Ur Barbiturates Screen Ur Phencyclidine Scrn Ur Amphetamines Screen U Benzodiazepines Scrn Urine Cocaine Screen U Marijuana (THC) Screen Respiratory Panel White See Note Adenovirus (Rapid PCR) Detected A B.pert (TEM-PCR) Not Detected B.parapertussis DNA PCR Not Detected C. pneumoniae DNA (PCR) Not Detected Coronavirus OC43 (PCR) Not Detected Coronavirus HKU1 (PCR) Not Detected Coronavirus 229E (PCR) Not Detected Coronavirus NL63 (PCR) Not Detected Human Metapneumovir PCR Not Detected Influenza A (RT-PCR) Detected A Influenza A (H1) PCR Not Detected Influ A (H1/09) PCR Not Detected Influenza A (H3) PCR Detected A Influenza Type A (PCR) Influenza B (RT-PCR) Not Detected Influenza Type B (PCR) M. pneumoniae (PCR) Not Detected Parainfluenza 1 (PCR) Not Detected Parainfluenza 2 (PCR) Not Detected Parainfluenza 3 (PCR) Not Detected Parainfluenza 4 (PCR) Not Detected RSV (PCR) Not Detected RSV RNA Qual (PCR) Entero/Rhino (PCR) Not Detected SARS-CoV-2 RNA (RT-PCR) Not Detected S. pyogenes GrpA LOUISA 01/31/25 09:47 WBC RBC Hgb Hct MCV MCH MCHC RDW Plt Count MPV Immature Gran % (Auto) Neut % (Auto) Lymph % (Auto) [place] % (Auto) Eos % (Auto) Baso % (Auto) Lymph # (Auto) [place] # (Auto) Eos # (Auto) Baso # (Auto) Abs Immat Gran (auto) Absolute Neuts (auto) Absolute Nucleated RBC Nucleated RBC % (auto) Sodium Potassium Chloride Carbon Dioxide Anion Gap BUN Creatinine Estim Creat Clear Calc Estimated GFR POC Glucose Random Glucose Lactic Acid Calcium Magnesium Total Bilirubin Direct Bilirubin AST ALT Alkaline Phosphatase Total Creatine Kinase NT-Pro-B Natriuret Pep Total Protein Albumin Lipase Urine Color Urine Appearance Urine pH Ur Specific [place] Urine Protein Urine Glucose (UA) Urine Ketones Urine Blood Urine Nitrite Ur Leukocyte Esterase Urine RBC Urine WBC Ur Squamous Epith Cells Urine Bacteria Hyaline Casts Urine Opiates Screen Ur Buprenorphine Scrn Ur Oxycodone Screen Urine Methadone Screen Urine Fentanyl Screen Ur Barbiturates Screen Ur Phencyclidine Scrn Ur Amphetamines Screen U Benzodiazepines Scrn Urine Cocaine Screen U Marijuana (THC) Screen Respiratory Panel White Adenovirus (Rapid PCR) B.pert (TEM-PCR) B.parapertussis DNA PCR C. pneumoniae DNA (PCR) Coronavirus OC43 (PCR) Coronavirus HKU1 (PCR) Coronavirus 229E (PCR) Coronavirus NL63 (PCR) Human Metapneumovir PCR Influenza A (RT-PCR) Influenza A (H1) PCR Influ A () PCR Influenza A (H3) PCR Influenza Type A (PCR) Cancelled Influenza B (RT-PCR) Influenza Type B (PCR) Cancelled M. pneumoniae (PCR) Parainfluenza 1 (PCR) Parainfluenza 2 (PCR) Parainfluenza 3 (PCR) Parainfluenza 4 (PCR) RSV (PCR) RSV RNA Qual (PCR) Cancelled Entero/Rhino (PCR) SARS-CoV-2 RNA (RT-PCR) Cancelled S. pyogenes GrpA LOUISA 01/31/25 09:47 Sputum - Expectorated Gram Stain - Final 01/31/25 09:47 Sputum - Expectorated Sputum Culture - Pending 01/31/25 00:22 Blood - Venous Blood Culture - Pending 01/31/25 00:22 Blood - Venous Blood Culture - Pending DS: Summary Hospital Course Hospital Course: 34 yo male, known to our service, with a history of schizoaffective disorder, depressed, DMII, HTN. Patient was recently discharged from on 01/24 and represents now in the face of not getting Clozaril. Patient reports that for some reason clozapine was not available and he did not get a least 1 day. He said that his neighbors were causing problems for him, saying rude things to him and he started to get a little suicidal so he came to the emergency room. Patient reports that also returned. Denies any substance abuse Medications were re-evaluated and adjusted. Clozapine was restarted. Pt presented with respiratory sx. Initial respiratory panel was negative. He developed fever last evening of 102.9 and progressive respiratory distress. Chest xray positive for pneumonia. Pt will discharge from psychiatry and admit to medicine. When medically cleared he should return to psychiatry to complete his treatment course. Status at Discharge Functional status at discharge: independent ambulation Overall status at discharge: patient is not back to baseline Time Spent with Patient Time attestation: Total time managing care of this patient today ____ minutes. Time spent: Less than 30 minutes Discharge Plan Discharge Anticipated Discharge Date/Time: 01/31/25 13:00 Patient Disposition: Xfer Acute Care Hospital Discharge Diagnosis: Acute Hypoxic Respiratory Failure Influenza Type A Referrals: [facility] [Other] - 1 Week Referral Note: Visiting RN to restart at D/C Physician,Unknown J [Primary Care Provider, Medical] - 1 Week Discharge Medications: New acetaminophen 325 mg Tablet 650 mg PO Q6H PRN (Reason: Headache/Pain, Scale 1-10) Qty: 0 0RF ipratropium-albuterol 0.5 mg-3 mg(2.5 mg base)/3 mL Solution For Nebulization 3 ml inhalation RQ6H WHILE AWAKE Qty: 0 0RF oseltamivir [Tamiflu] 75 mg Capsule 75 mg PO Q12H Qty: 0 0RF clozapine 25 mg Tablet 150 mg PO BEDTIME Qty: 0 0RF nystatin 100,000 unit/mL Suspension 400,000 unit PO QID Qty: 0 0RF prednisone 20 mg Tablet 40 mg PO DAILY Qty: 0 0RF guaifenesin 100 mg/5 mL Liquid 100 mg PO Q4H PRN (Reason: Cough) Qty: 1000 0RF magnesium hydroxide [Milk of Magnesia] 400 mg/5 mL Suspension 30 ml PO DAILY PRN (Reason: Constipation) Qty: 0 0RF erythromycin 5 mg/gram (0.5 %) Ointment 1 cm ophthalmic-Right TID Qty: 0 0RF Chloraseptic Throat Poy[place] 1.4 % Aerosol,[place] 1 spray mucous membrane Q2H PRN (Reason: Sore Throat) Qty: 0 0RF Deep Sea Nasal 0.65 % Aerosol,[place]oy[place] 1 spray intranasal Q4H PRN (Reason: Nasal Congestion) Qty: 0 0RF MAG-AL 200-200 mg/5 mL Suspension 30 ml PO Q6H PRN (Reason: Heartburn/Nausea) Qty: 0 0RF Continued losartan 50 mg Tablet 100 mg PO DAILY Qty: 60 0RF Protocol: Hold for SBP< HOLD for SBP < : 90 nicotine (polacrilex) 2 mg Gum 4 mg buccal Q2H PRN (Reason: Nicotine Cravings) Qty: 200 0RF prazosin 1 mg Capsule 4 mg PO BEDTIME Qty: 120 0RF Protocol: Hold for SBP< HOLD for SBP < : 90 chlorpromazine 25 mg Tablet 25 mg PO Q6H PRN (Reason: anxiety, agitation) Qty: 90 0RF benztropine 1 mg Tablet 1 mg PO BID Qty: 60 0RF duloxetine 30 mg Capsule,Delayed Release(Dr/Ec) 30 mg PO DAILY Qty: 30 0RF polyethylene glycol 3350 17 gram Powder In Packet 17 g PO DAILY Qty: 30 0RF naltrexone 50 mg Tablet 50 mg PO DAILY Qty: 30 0RF docusate sodium 100 mg Capsule 100 mg PO BID Qty: 60 0RF gabapentin 300 mg Capsule 300 mg PO TID Qty: 90 0RF hydroxyzine HCl 25 mg Tablet 50 mg PO Q6H PRN (Reason: mild anxiety) Qty: 60 0RF ibuprofen 600 mg Tablet 600 mg PO Q8H PRN (Reason: back pain) Qty: 30 0RF Artificial Tears(sm-xtcl-unlg) 1-0.2-0.2 % Drops 2 drp ophthalmic (eye) Q4H PRN (Reason: Dry Eyes) Qty: 10 0RF Sore Throat (benzocaine-menth) 15-3.6 mg Lozenge 1 evelyn mucous membrane Q2H PRN (Reason: Sore Throat) Qty: 30 0RF sennosides [Senna Lax] 8.6 mg Tablet 17.2 mg PO BEDTIME Qty: 30 0RF folic acid 1 mg Tablet 1 mg PO DAILY Qty: 30 0RF Eucerin Cream 1 appl topical QID PRN (Reason: Dry Skin) Qty: 226 0RF Protocol: Apply to: Apply to: affected areas thiamine mononitrate (vit B1) 100 mg Tablet 100 mg PO DAILY Qty: 30 0RF cyclobenzaprine 10 mg Tablet 10 mg PO TID PRN (Reason: back muscle spasm) 30 Days Qty: 90 0RF metoprolol succinate 50 mg tablet extended release 24 hr 50 mg PO DAILY Qty: 30 0RF melatonin 3 mg Tablet 3 mg PO BEDTIME PRN (Reason: Sleep) Qty: 30 0RF lamotrigine 25 mg Tablet 25 mg PO DAILY Qty: 30 0RF trazodone 100 mg tablet 100 mg PO BEDTIME Qty: 30 0RF amlodipine 10 mg tablet 10 mg PO DAILY Qty: 30 0RF nicotine 21 mg/24 hr Patch 24 Hour 1 patch TRANSDERMAL DAILY Qty: 30 0RF albuterol sulfate 90 mcg/actuation Hfa Aerosol Inhaler 1 inh INHALATION QID PRN (Reason: Wheezing) Qty: 1 0RF metformin 500 mg tablet extended release 24 hr 500 mg PO BID Qty: 60 0RF loratadine 10 mg Tablet 10 mg PO DAILY Qty: 30 0RF Incruse Ellipta 62.5 mcg/actuation Blister With Device 1 inh INHALATION DAILY Qty: 1 0RF ondansetron 4 mg Tablet,Disintegrating 4 mg PO Q8H PRN (Reason: Nausea And Vomiting) ammonium lactate 12 % Lotion 1 appl TOPICAL DAILY Mounjaro 2.5 mg/0.5 mL pen injector 2.5 mg subcut SA Discontinued clozapine 100 mg tablet 100 mg PO BEDTIME clozapine 25 mg tablet 25 mg PO BEDTIME acetaminophen 325 mg Tablet 650 mg PO Q6H PRN (Reason: Headache/Pain, Scale 1-10) Qty: 0 0RF Discharge Orders: Discharge Order (Routine); Ordered 01/31/25 Ordered By: Manasa Hutchison Diet: Advance to usual diet Activity on Discharge: As tolerated Stand Alone Forms: Patient Portal Discharge page Print Language: Mongolian Activity Restrictions/Additional Instructions: You were evaluated in the ED today. The CT of your abdomen and pelvis revealed 6 mm nodule in the left lung base. You are recommended to have a follow up CT scan in six-months for further evaluation as you were high risk due to smoking history and COPD. Please follow up with your primary care doctor on these findings as they will be able to help you get follow up imaging for further evaluation. Care Plan Goals: Medical stabilization Health Concerns: Influenza A Acute hypoxic respiratory failure Plan of Treatment: Discharge from [facility] Admit to medicine Assessment: Pt is accepting of treatment.
[2025-02-03 12:14] LABS: Glucose, Whole Blood 174 mg/dL (60-115)
== END 2025-01-31 13:46 | disposition short-term general hospital (02) | DRG 885 ==
LOC: HO.ED 12:33 → HO.PM5 01-27 14:21
PROVIDERS: Clinical Nurse Specialist Psychiatric/Mental Health, Adult; Internal Medicine; Nurse Practitioner Family; Physician Assistant; Admitting Provider Psychiatry & Neurology Psychiatry; Emergency Provider Emergency Medicine; Visit Provider Psychiatry & Neurology Psychiatry
DX: F25.9 Schizoaffective disorder, unspecified (principal); J10.00 Influenza due to other identified influenza virus with unspecified type of pneumonia; J96.01 Acute respiratory failure with hypoxia; R45.851 Suicidal ideations; Z68.43 Body mass index [BMI] 50.0-59.9, adult; F17.210 Nicotine dependence, cigarettes, uncomplicated; K76.0 Fatty (change of) liver, not elsewhere classified; T42.4X6A Underdosing of benzodiazepines, initial encounter; E11.9 Type 2 diabetes mellitus without complications; Z71.6 Tobacco abuse counseling; E66.01 Morbid (severe) obesity due to excess calories; Z79.84 Long term (current) use of oral hypoglycemic drugs; Z79.899 Other long term (current) drug therapy
CPT/HCPCS: 36415; 71046; 74177; 80048; 80053; 80076; 80307; 81001; 81003; 82550; 82947; 83605; 83690; 83735; 83880; 85025; 87040; 87070; 87205; 87633; 87637; 87651; 93005; 94640; 94664; 99285; J0737; Q9967; S9485

== ENCOUNTER → 2025-01-26 13:43 | Outpatient (BNV) | payer OTHER, SELFPAY | PROVIDERS: Emergency Provider Emergency Medicine; Visit Provider Radiology Diagnostic Radiology | DX: R10.9 Unspecified abdominal pain (principal); R91.1 Solitary pulmonary nodule | CPT/HCPCS: 74177 ==

== ENCOUNTER → 2025-01-27 10:08 | Outpatient (BNV) | payer OTHER, SELFPAY | PROVIDERS: Emergency Provider Emergency Medicine; Visit Provider Internal Medicine Cardiovascular Disease | DX: R06.02 Shortness of breath (principal) | CPT/HCPCS: 93010 ==

== ENCOUNTER 2025-01-27 13:49 | Outpatient (BNV) | payer OTHER, SELFPAY | END 2025-01-30 23:23 | PROVIDERS: Admitting Provider Psychiatry & Neurology Psychiatry; Emergency Provider Emergency Medicine; Visit Provider Radiology Neuroradiology | DX: R05.9 Cough, unspecified (principal) | CPT/HCPCS: 71046 ==

== ENCOUNTER → 2025-01-27 13:49 | Outpatient (BNV) | payer OTHER, SELFPAY | PROVIDERS: Admitting Provider Psychiatry & Neurology Psychiatry; Emergency Provider Emergency Medicine; Visit Provider Psychiatry & Neurology Psychiatry | DX: F25.1 Schizoaffective disorder, depressive type (principal); E11.9 Type 2 diabetes mellitus without complications; E66.01 Morbid (severe) obesity due to excess calories | CPT/HCPCS: 90792 ==

== ENCOUNTER → 2025-01-27 13:49 | Outpatient (BNV) | payer OTHER, SELFPAY | PROVIDERS: Admitting Provider Psychiatry & Neurology Psychiatry; Emergency Provider Emergency Medicine; Visit Provider Nurse Practitioner Family | DX: G47.34 Idiopathic sleep related nonobstructive alveolar hypoventilation (principal); E11.9 Type 2 diabetes mellitus without complications | CPT/HCPCS: 99221 ==

== ENCOUNTER 2025-01-31 14:10 | Inpatient (IN) | payer OTHER, SELFPAY ==
--- OUTSIDE RECORDS SUMMARY | 2023-09-08 17:19 | XMS_ITS ---
Author Organization [facility] Address [address] [place] [address] Care Team Providers Care Assistant Toddler Teacher Name Role Phone Lamine Lin Primary Care Provider Unavailabl e Clinical, Operations Unavailable Unavailable Allergies Allergen (clinical drug ingredient) Drug/Non Drug Allergy documented on EMR Reaction Allergy Type Onset Date Status lisinopril Lisinopril Unknown Drug Allergy Activ e clonidine Clonidine Unknown Drug Allergy Active Milk-related Compounds Unknown Drug Allergy Active REASON FOR VISIT Hospital Discharge med rec Medications Medication SIG (Take, Route, Frequency, Duration) Notes Start Date End Date Status Capsaicin 0.025 % as directed Externally Unknown Artificial Tear Solution - as directed Ophthalmic Unknown Chlorthalidone 25 MG 0.5 tablet in the morning with food Orally Once a day Unknown Haloperidol 5 MG take 3 tablets Orall y at bedtime Active Colace 100 MG 2 capsules Orally Tw ice a day Active Gabapentin 400 MG 1 tablet Orally Thre e times a day Active Pantoprazole Sodium 40 MG 1 tablet Orall y Once a day Active Loratadine 10 MG 1 tablet Orally Once a day as needed Active Multivitamin - 1 tablet Orally Once a day Active Losartan Potassium 25 MG 1 tablet Orally Once a day Unknown traZODone HCl 50 MG 3 tablets at bedtime Orally Once a day Active Haldol Decanoate 100 MG/ML 1 mL Intramuscular first dose 05/16/23 Unknown hydrOXYzine HCl 50 MG 1 tablet Orally th ree times a day as needed for anxiety Active Haloperidol 5 MG 1 tablet as needed Orally Once a day Active Zoloft 100 MG 1 tablet Orally Once a day Unknown Prazosin HCl 5 MG 1 capsule at bedtime Orally Once a day Active amLODIPine Besylate 10 MG 1 tablet Orall y Once a day Active Benztropine Mesylate 1 MG 1 tablet Orall y twice a day Active Fluticasone Propionate 50 MCG/ACT 1 spray in each nostril Nasally Once a day Active Folic Acid 1 MG 1 tablet Orally Once a day Unknown [place] Carbonate 300 MG 2 tablets Orall y twice a day Active Metoprolol Succinate 25 MG 1 capsule Ora lly Once a day Unknown metFORMIN HCl 1000 MG 1 tablet with a me al Orally twice a day Active Albuterol Sulfate 108 (90 Base) MCG/ACT 1 puff as needed Inhalation every 4 hrs Active Ferrous Fumarate 325 (106 Fe) MG 1 tablet Orally Three times a Week Active Melatonin 5 MG 1 tablet in the even ing Orally Once a day Active Encounters Encounter Location Date Provider Diagnosis [facility] ([facility]) [address] [place] [address] [address] [place] [address] 09/08/2023 Operations Clinical Plan Of Treatment No Information Progress Notes * HELLEN MUSTAFA WDOB: (34 yo M)Acc No.[id number]:09/08/2023 BLOCKED FROM THE PATIENT Patient: HELLEN VALADEZ :1990 A ge:33 Y S ex:Male Address:[address] [place] [id number] Subjective: * Chief Complaints: * H ospital Discharge med rec * Medical History: * Surgical History: * Hospitalization/Major Diagno stic Procedure: * Medications: T akingFerrous Fumarate 325 (106 Fe) MG Tablet 1 tablet Orally Three times a Week Melatonin 5 MG Tablet 1 tablet in the evening Orally Once a day metFORMIN HCl 1000 MG Tablet 1 tablet with a meal Orally twice a day Albuterol Sulfate 108 (90 Base) MCG/ACT Aerosol Powder Breath Activated 1 puff as needed Inhalation every 4 hrs [place] Carbonate 300 MG Capsule 2 tablets Orally twice a day Fluticasone Propionate 50 MCG/ACT Suspension 1 spray in each nostril Nasally Once a day amLODIPine Besylate 10 MG Tablet 1 tablet Orally Once a day Prazosin HCl 5 MG Capsule 1 capsule at bedtime Orally Once a day Benztropine Mesylate 1 MG Tablet 1 tablet Orally twice a day hydrOXYzine HCl 50 MG Tablet 1 tablet Orally three times a day as needed for anxiety Haloperidol 5 MG Tablet 1 tablet as needed Orally Once a day traZODone HCl 50 MG Tablet 3 tablets at bedtime Orally Once a day Loratadine 10 MG Tablet 1 tablet Orally Once a day as needed Gabapentin 400 MG Capsule 1 tablet Orally Three times a day Pantoprazole Sodium 40 MG Tablet Delayed Release 1 tablet Orally Once a day Multivitamin - Tablet 1 tablet Orally Once a day Haloperidol 5 MG Tablet take 3 tablets Orally at bedtime Colace 100 MG Capsule 2 capsules Orally Twice a day Taking Ferrous Fumarate 325 (106 Fe) MG Tablet 1 tablet Orally Three times a Week Taking Melatonin 5 MG Tablet 1 tablet in the evening Orally Once a day Taking metFORMIN HCl 1000 MG Tablet 1 tablet with a meal Orally twice a day Taking Albuterol Sulfate 108 (90 Base) MCG/ACT Aerosol Powder Breath Activated 1 puff as needed Inhalation every 4 hrs Taking [place] Carbonate 300 MG Capsule 2 tablets Orally twice a day Taking Fluticasone Propionate 50 MCG/ACT Suspension 1 spray in each nostril Nasally Once a day Taking amLODIPine Besylate 10 MG Tablet 1 tablet Orally Once a day Taking Prazosin HCl 5 MG Capsule 1 capsule at bedtime Orally Once a day Taking Benztropine Mesylate 1 MG Tablet 1 tablet Orally twice a day Taking hydrOXYzine HCl 50 MG Tablet 1 tablet Orally three times a day as needed for anxiety Taking Haloperidol 5 MG Tablet 1 tablet as needed Orally Once a day Taking traZODone HCl 50 MG Tablet 3 tablets at bedtime Orally Once a day Taking Loratadine 10 MG Tablet 1 tablet Orally Once a day as needed Taking Gabapentin 400 MG Capsule 1 tablet Orally Three times a day Taking Pantoprazole Sodium 40 MG Tablet Delayed Release 1 tablet Orally Once a day Taking Multivitamin - Tablet 1 tablet Orally Once a day Taking Haloperidol 5 MG Tablet take 3 tablets Orally at bedtime Taking Colace 100 MG Capsule 2 capsules Orally Twice a day DiscontinuedFerrous Sulfate 325 (65 Fe) MG Tablet 1 tablet Orally Three times a Week metFORMIN HCl ER 500 MG Tablet Extended Release 24 Hour 1 tablet Orally twice a day Ferrous Gluconate 324 (38 Fe) MG Tablet 1 tablet Orally daily Discontinued Ferrous Sulfate 325 (65 Fe) MG Tablet 1 tablet Orally Three times a Week Discontinued metFORMIN HCl ER 500 MG Tablet Extended Release 24 Hour 1 tablet Orally twice a day Discontinued Ferrous Gluconate 324 (38 Fe) MG Tablet 1 tablet Orally daily UnknownMetoprolol Succinate 25 MG Capsule ER 24 Hour Sprinkle 1 capsule Orally Once a day Folic Acid 1 MG Tablet 1 tablet Orally Once a day Zoloft 100 MG Tablet 1 tablet Orally Once a day Losartan Potassium 25 MG Tablet 1 tablet Orally Once a day Haldol Decanoate 100 MG/ML Solution 1 mL Intramuscular first dose 05/16/23Capsaicin 0.025 % Lotion as directed Externally Artificial Tear Solution - Solution as directed Ophthalmic Chlorthalidone 25 MG Tablet 0.5 tablet in the morning with food Orally Once a day Medication List reviewed and reconciled with the patientUnknown Metoprolol Succinate 25 MG Capsule ER 24 Hour Sprinkle 1 capsule Orally Once a day Unknown Folic Acid 1 MG Tablet 1 tablet Orally Once a day Unknown Zoloft 100 MG Tablet 1 tablet Orally Once a day Unknown Losartan Potassium 25 MG Tablet 1 tablet Orally Once a day Unknown Haldol Decanoate 100 MG/ML Solution 1 mL Intramuscular first dose 05/16/23Unknown Capsaicin 0.025 % Lotion as directed Externally Unknown Artificial Tear Solution - Solution as directed Ophthalmic Unknown Chlorthalidone 25 MG Tablet 0.5 tablet in the morning with food Orally Once a day Medication List reviewed and reconciled with the patient * Allergies: C lonidineMilk-related CompoundsLisinopril: Allergyno[Allergies Verified] Objective: * Vitals: * Physical Examination: Assessment: Plan: * Treatment: * Procedure Codes: * * Date:
--- OUTSIDE RECORDS SUMMARY | 2023-11-06 05:49 | XMS_ITS ---
Author Organization [facility] Address [address] [place] [address] Care Team Providers Care Mop Maker Name Role Phone Lamine Lin Primary Care Provider Unavailabl e Clinical, Operations Unavailable Unavailable Allergies Allergen (clinical drug ingredient) Drug/Non Drug Allergy documented on EMR Reaction Allergy Type Onset Date Status lisinopril Lisinopril Unknown Drug Allergy Activ e clonidine Clonidine Unknown Drug Allergy Active Milk-related Compounds Unknown Drug Allergy Active REASON FOR VISIT Hospital discharge med Rec Medications Medication SIG (Take, Route, Frequency, Duration) Notes Start Date End Date Status Pantoprazole Sodium 40 MG 1 tablet Orall y Once a day Active Gabapentin 400 MG 1 tablet Orally Thre e times a day Active Loratadine 10 MG 1 tablet Orally Once a day as needed Active traZODone HCl 50 MG 1 tablet Orally Once a day at bedtime Active Multivitamin - 1 tablet Orally Once a day Active Haloperidol 5 MG 1 tablet as needed Orally Once a day Active Benztropine Mesylate 1 MG 1 tablet Orall y twice a day Active Prazosin HCl 2 MG 1 capsule at bedtime Orally Once a day Active amLODIPine Besylate 10 MG 1 tablet Orall y Once a day Active Albuterol Sulfate 108 (90 Base) MCG/ACT 1 puff as needed Inhalation every 4 hrs Active metFORMIN HCl 500 MG 1 tablet Orally wit h dinner Active Melatonin 5 MG 1 tablet in the evening Orally Once a day Active Fluticasone Propionate 50 MCG/ACT 1 spray in each nostril Nasally Once a day Active [place] Carbonate 300 MG 2 tablets every day 3 tablets with dinner Orally as ordered Active Artificial Tear Solution - as directed Ophthalmic Unknown Ferrous Fumarate 325 (106 Fe) MG 1 tablet Orally Three times a Week Not-Taking Naltrexone HCl 50 MG 1 tablet Orally Onc e a day Active Ferrous Gluconate 324 (38 Fe) MG 1 tablet Orally daily Active Chlorthalidone 25 MG 0.5 tablet in the morning with food Orally Once a day Unknown Capsaicin 0.025 % as directed Externally Unknown Losartan Potassium 25 MG 1 tablet Orally Once a day Unknown Zoloft 100 MG 1 tablet Orally Once a day Unknown Folic Acid 1 MG 1 tablet Orally Once a day Unknown Metoprolol Succinate 25 MG 1 capsule Ora lly Once a day Unknown Colace 100 MG 2 capsules Orally Twice a day Unknown Haloperidol 5 MG take 3 tablets Orall y at bedtime Active Encounters Encounter Location Date Provider Diagnosis [facility] ([facility]) [address] [place] [id number] 11/06/2023 Operations Clinical Plan Of Treatment No Information Progress Notes * HELLEN MUSTAFA WDOB: (34 yo M)Acc No.[id number]:11/06/2023 BLOCKED FROM THE PATIENT Patient: Silver HELLEN HERRERA [place] :1990 A ge:33 Y S ex:Male Address:[address] [place] [id number] Subjective: * Chief Complaints: * H ospital discharge med Rec * Medical History: * Surgical History: * Hospitalization/Major Diagno stic Procedure: * Medications: T akingFerrous Gluconate 324 (38 Fe) MG Tablet 1 tablet Orally daily Naltrexone HCl 50 MG Tablet 1 tablet Orally Once a day Melatonin 5 MG Tablet 1 tablet in the evening Orally Once a day metFORMIN HCl 500 MG Tablet 1 tablet Orally with dinner Albuterol Sulfate 108 (90 Base) MCG/ACT Aerosol Powder Breath Activated 1 puff as needed Inhalation every 4 hrs [place] Carbonate 300 MG Capsule 2 tablets every day 3 tablets with dinner Orally as ordered Fluticasone Propionate 50 MCG/ACT Suspension 1 spray in each nostril Nasally Once a day amLODIPine Besylate 10 MG Tablet 1 tablet Orally Once a day Prazosin HCl 2 MG Capsule 1 capsule at bedtime Orally Once a day Benztropine Mesylate 1 MG Tablet 1 tablet Orally twice a day Haloperidol 5 MG Tablet 1 tablet as needed Orally Once a day traZODone HCl 50 MG Tablet 1 tablet Orally Once a day at bedtime Loratadine 10 MG Tablet 1 tablet Orally Once a day as needed Gabapentin 400 MG Capsule 1 tablet Orally Three times a day Pantoprazole Sodium 40 MG Tablet Delayed Release 1 tablet Orally Once a day Multivitamin - Tablet 1 tablet Orally Once a day Haloperidol 5 MG Tablet take 3 tablets Orally at bedtime Taking Ferrous Gluconate 324 (38 Fe) MG Tablet 1 tablet Orally daily Taking Naltrexone HCl 50 MG Tablet 1 tablet Orally Once a day Taking Melatonin 5 MG Tablet 1 tablet in the evening Orally Once a day Taking metFORMIN HCl 500 MG Tablet 1 tablet Orally with dinner Taking Albuterol Sulfate 108 (90 Base) MCG/ACT Aerosol Powder Breath Activated 1 puff as needed Inhalation every 4 hrs Taking [place] Carbonate 300 MG Capsule 2 tablets every day 3 tablets with dinner Orally as ordered Taking Fluticasone Propionate 50 MCG/ACT Suspension 1 spray in each nostril Nasally Once a day Taking amLODIPine Besylate 10 MG Tablet 1 tablet Orally Once a day Taking Prazosin HCl 2 MG Capsule 1 capsule at bedtime Orally Once a day Taking Benztropine Mesylate 1 MG Tablet 1 tablet Orally twice a day Taking Haloperidol 5 MG Tablet 1 tablet as needed Orally Once a day Taking traZODone HCl 50 MG Tablet 1 tablet Orally Once a day at bedtime Taking Loratadine 10 MG Tablet 1 tablet Orally Once a day as needed Taking Gabapentin 400 MG Capsule 1 tablet Orally Three times a day Taking Pantoprazole Sodium 40 MG Tablet Delayed Release 1 tablet Orally Once a day Taking Multivitamin - Tablet 1 tablet Orally Once a day Taking Haloperidol 5 MG Tablet take 3 tablets Orally at bedtime Not-TakingFerrous Fumarate 325 (106 Fe) MG Tablet 1 tablet Orally Three times a Week Not-Taking Ferrous Fumarate 325 (106 Fe) MG Tablet 1 tablet Orally Three times a Week DiscontinuedhydrOXYzine HCl 50 MG Tablet 1 tablet Orally three times a day as needed for anxiety Haldol Decanoate 100 MG/ML Solution 1 mL Intramuscular first dose 05/16/23Discontinued hydrOXYzine HCl 50 MG Tablet 1 tablet Orally three times a day as needed for anxiety Discontinued Haldol Decanoate 100 MG/ML Solution 1 mL Intramuscular first dose 05/16/23UnknownColace 100 MG Capsule 2 capsules Orally Twice a day Metoprolol Succinate 25 MG Capsule ER 24 Hour Sprinkle 1 capsule Orally Once a day Folic Acid 1 MG Tablet 1 tablet Orally Once a day Zoloft 100 MG Tablet 1 tablet Orally Once a day Losartan Potassium 25 MG Tablet 1 tablet Orally Once a day Capsaicin 0.025 % Lotion as directed Externally Artificial Tear Solution - Solution as directed Ophthalmic Chlorthalidone 25 MG Tablet 0.5 tablet in the morning with food Orally Once a day Medication List reviewed and reconciled with the patientUnknown Colace 100 MG Capsule 2 capsules Orally Twice a day Unknown Metoprolol Succinate 25 MG Capsule ER 24 Hour Sprinkle 1 capsule Orally Once a day Unknown Folic Acid 1 MG Tablet 1 tablet Orally Once a day Unknown Zoloft 100 MG Tablet 1 tablet Orally Once a day Unknown Losartan Potassium 25 MG Tablet 1 tablet Orally Once a day Unknown Capsaicin 0.025 % Lotion as directed Externally [...]
--- OUTSIDE RECORDS SUMMARY | 2023-12-12 07:41 | XMS_ITS ---
Author Organization [facility] Address [address] [place] [address] Care Team Providers Care All Around Presser Name Role Phone Lamine Lin Primary Care Provider Unavailabl e Clinical, Operations Unavailable Unavailable Allergies Allergen (clinical drug ingredient) Drug/Non Drug Allergy documented on EMR Reaction Allergy Type Onset Date Status mushrooms (uncoded) Unknown Allergy Active Substance with sulfonamide structure and antibacterial mechanism of action (substance) sulfonomide (uncoded) Unknown Allergy Active lisinopril Lisinopril Unknown Drug Allergy Activ e clonidine Clonidine Unknown Drug Allergy Active Milk-related Compounds Unknown Drug Allergy Active REASON FOR VISIT hospital discharge med rec Medications Medication SIG (Take, Route, Frequency, Duration) Notes Start Date End Date Status Clotrimazole-Betamethasone 1-0.05 % 1 application Externally Twice a day Active Capsaicin 0.025 % as directed Externally Unknown Artificial Tear Solution - as directed Ophthalmic Unknown Chlorthalidone 25 MG 0.5 tablet in the morning with food Orally Once a day Unknown Colace 100 MG 1 capsule Orally Onc e a day in the morning Active Metoprolol Succinate 25 MG 1 capsule Ora lly Once a day Unknown Folic Acid 1 MG 1 tablet Orally Once a day Unknown Zoloft 100 MG 1 tablet Orally Once a day Active Gabapentin 400 MG 1 tablet Orally Thre e times a day Active Pantoprazole Sodium 40 MG 1 tablet Orall y Once a day Active Multivitamin - 1 tablet Orally Once a day Active Haloperidol 5 MG take 3 tablets Orall y at bedtime Active Prazosin HCl 5 MG 1 capsule at bedtime Orally Once a day Active traZODone HCl 50 MG 2 tablets Orally Onc e a day at bedtime Active Loratadine 10 MG 1 tablet Orally Once a day as needed Active Fluticasone Propionate 50 MCG/ACT 1 spray in each nostril Nasally Once a day Active metFORMIN HCl 500 MG 1 tablet Orally wit h dinner Active Albuterol Sulfate 108 (90 Base) MCG/ACT 1 puff as needed Inhalation every 4 hrs Active [place] Carbonate 300 MG 1 tablet Orally twice a day Active Ferrous Sulfate 325 (65 Fe) MG 1 tablet Orally Three times a Week Active Dulcolax 1200 MG/15ML take 30ml by mouth at bedtime as needed Orally Once a day As needed fpr asthma shorness of breath/wheeze Active Naltrexone HCl 50 MG 1 tablet Orally Onc e a day Unknown Encounters Encounter Location Date Provider Diagnosis [facility] ([facility]) [address] [place] [phone] 12/12/2023 Operations Clinical Plan Of Treatment No Information Progress Notes * HELLEN MUSTAFA WDOB: (34 yo M)Acc No.[id number]:12/12/2023 BLOCKED FROM THE PATIENT Patient: Silver HELLEN HERRERA Garland :1990 A ge:33 Y S ex:Male Address:[address] [place] [id number] Subjective: * Chief Complaints: * H ospital discharge med rec * Medical History: * Surgical History: * Hospitalization/Major Diagno stic Procedure: * Medications: T akingClotrimazole-Betamethasone 1-0.05 % Cream 1 application Externally Twice a day Ferrous Sulfate 325 (65 Fe) MG Tablet 1 tablet Orally Three times a Week Dulcolax 1200 MG/15ML Suspension take 30ml by mouth at bedtime as needed Orally Once a day As needed fpr asthma shorness of breath/wheezemetFORMIN HCl 500 MG Tablet 1 tablet Orally with dinner Albuterol Sulfate 108 (90 Base) MCG/ACT Aerosol Powder Breath Activated 1 puff as needed Inhalation every 4 hrs [place] Carbonate 300 MG Capsule 1 tablet Orally twice a day Fluticasone Propionate 50 MCG/ACT Suspension 1 spray in each nostril Nasally Once a day Prazosin HCl 5 MG Capsule 1 capsule at bedtime Orally Once a day traZODone HCl 50 MG Tablet 2 tablets Orally Once a day at bedtime Loratadine [...] Orally at bedtime Colace 100 MG Capsule 1 capsule Orally Once a day in the morning Zoloft 100 MG Tablet 1 tablet Orally Once a day Taking Clotrimazole-Betamethasone 1-0.05 % Cream 1 application Externally Twice a day Taking Ferrous Sulfate 325 (65 Fe) MG Tablet 1 tablet Orally Three times a Week Taking Dulcolax 1200 MG/15ML Suspension take 30ml by mouth at bedtime as needed Orally Once a day As needed fpr asthma shorness of breath/wheezeTaking metFORMIN HCl 500 MG Tablet 1 tablet Orally with dinner Taking Albuterol Sulfate 108 (90 Base) MCG/ACT Aerosol Powder Breath Activated 1 puff as needed Inhalation every 4 hrs Taking [place] Carbonate 300 MG Capsule 1 tablet Orally twice a day Taking Fluticasone Propionate 50 MCG/ACT Suspension 1 spray in each nostril Nasally Once a day Taking Prazosin HCl 5 MG Capsule 1 capsule at bedtime Orally Once a day Taking traZODone HCl 50 MG Tablet 2 tablets Orally Once a day at bedtime Taking [...] at bedtime Taking Colace 100 MG Capsule 1 capsule Orally Once a day in the morning Taking Zoloft 100 MG Tablet 1 tablet Orally Once a day DiscontinuedFerrous Gluconate 324 (38 Fe) MG Tablet 1 tablet Orally daily Melatonin 5 MG Tablet 1 tablet in the evening Orally Once a day amLODIPine Besylate 10 MG Tablet 1 tablet Orally Once a day Benztropine Mesylate 1 MG Tablet 1 tablet Orally twice a day Haloperidol 5 MG Tablet 1 tablet as needed Orally Once a day Ferrous Fumarate 325 (106 Fe) MG Tablet 1 tablet Orally Three times a Week Losartan Potassium 25 MG Tablet 1 tablet Orally Once a day Discontinued Ferrous Gluconate 324 (38 Fe) MG Tablet 1 tablet Orally daily Discontinued Melatonin 5 MG Tablet 1 tablet in the evening Orally Once a day Discontinued amLODIPine Besylate 10 MG Tablet 1 tablet Orally Once a day Discontinued Benztropine Mesylate 1 MG Tablet 1 tablet Orally twice a day Discontinued Haloperidol 5 MG Tablet 1 tablet as needed Orally Once a day Discontinued Ferrous Fumarate 325 (106 Fe) MG Tablet 1 tablet Orally Three times a Week Discontinued Losartan Potassium 25 MG Tablet 1 tablet Orally Once a day UnknownNaltrexone HCl 50 MG Tablet 1 tablet Orally Once a day Metoprolol Succinate 25 MG Capsule [...] Medication List reviewed and reconciled with the patientErnestowalyssia Naltrexone HCl 50 MG Tablet 1 tablet [...] the patient * Allergies: C lonidineMilk-related CompoundsLisinopril: Allergymushrooms: Allergysulfonomide: Allergyno[Allergies Verified] Objective: * Vitals: * Physical Examination: Assessment: Plan: * Treatment: * Procedure Codes: * * Date:
--- OUTSIDE RECORDS SUMMARY | 2024-01-30 12:05 | XMS_ITS ---
Author Organization [facility] Address [address] [place] [address] Care Team Providers Care Home Sales Service Professional Name Role Phone Lamine Lin Primary Care [...] Active REASON FOR VISIT Hospital discharge med rec Medications Medication SIG (Take, Route, Frequency, Duration) Notes Start Date End Date Status Capsaicin 0.025 % as directed Externally Unknown Artificial Tear Solution - as directed Ophthalmic Unknown Metoprolol Succinate 25 MG 1 capsule Ora lly Once a day Active Folic Acid 1 MG 1 tablet Orally Once a day Unknown Chlorthalidone 25 MG 0.5 tablet in the morning with food Orally Once a day Unknown Zoloft 100 MG 1 tablet Orally Once a day Active Naltrexone HCl 50 MG 1 tablet Orally Onc e a day Unknown Colace 100 MG 1 capsule Orally Onc e a day in the morning Active Multivitamin - 1 tablet Orally Once a day Active Haloperidol 5 MG take 3 tablets at be d time, may take 1/2 pill as needed for agitation Orally daily Active Loratadine 10 MG 1 tablet Orally Once a day as needed Active Prazosin HCl 5 MG 1 capsule at bedtime Orally Once a day Active Gabapentin 400 MG 1 tablet Orally Thre e times a day Active Pantoprazole Sodium 40 MG 1 tablet Orall y Once a day Active metFORMIN HCl 500 MG 1 tablet Orally wit h dinner Active Albuterol Sulfate 108 (90 Base) MCG/ACT 1 puff as needed Inhalation every 4 hrs Unknown [place] Carbonate 600 MG 1 tablet Orally twice a day Active Fluticasone Propionate 50 MCG/ACT 1 spray in each nostril Nasally Once a day Active Dulcolax 1200 MG/15ML take 30ml by mouth at bedtime as needed Orally Once a day As needed fpr asthma shorness of breath/wheeze Unknown Diclofenac Sodium 1 % as directed Enrolled Agent ally four times a day 2g per application Active Benztropine Mesylate 1 MG 1 tablet Orall y twice a day Active amLODIPine Besylate 10 MG 1 tablet Orall y Once a day Active Clotrimazole-Betamethasone 1-0.05 % 1 application Externally Twice a day Unknown hydrOXYzine HCl 50 MG 1 tablet as needed Orally four times a day as needed for anxiety Active Ferrous Gluconate 324 (38 Fe) MG 1 tablet Orally daily Active Encounters Encounter Location Date Provider Diagnosis [facility] ([facility]) [address] [place] [phone] 01/30/2024 Operations Clinical Plan Of Treatment No Information Progress Notes * HELLEN MUSTAFA WDOB: (34 yo M)Acc No.[id number]:01/30/2024 BLOCKED FROM THE PATIENT Patient: HELLEN VALADEZ :1990 A ge:33 Y S ex:Male Address:[address] [place] [phone] Subjective: * Chief Complaints: * H ospital discharge med rec * Medical History: * Surgical History: * Hospitalization/Major Diagno stic Procedure: * Medications: T akinghydrOXYzine HCl 50 MG Tablet 1 tablet as needed Orally four times a day as needed for anxiety Ferrous Gluconate 324 (38 Fe) MG Tablet 1 tablet Orally daily Diclofenac Sodium 1 % Gel as directed Externally four times a day 2g per application Benztropine Mesylate 1 MG Tablet 1 tablet Orally twice a day amLODIPine Besylate 10 MG Tablet 1 tablet Orally Once a day metFORMIN HCl 500 MG Tablet 1 tablet Orally with dinner [place] Carbonate 600 MG Capsule 1 tablet Orally twice a day Fluticasone Propionate 50 MCG/ACT Suspension 1 spray in each nostril Nasally Once a day Prazosin HCl 5 MG Capsule 1 capsule at bedtime Orally Once a day Loratadine 10 MG Tablet 1 tablet Orally Once a day as needed Gabapentin 400 MG Capsule 1 tablet Orally Three times a day Pantoprazole Sodium 40 MG Tablet Delayed Release 1 tablet Orally Once a day Multivitamin - Tablet 1 tablet Orally Once a day Haloperidol 5 MG Tablet take 3 tablets at bed time, may take 1/2 pill as needed for agitation Orally daily Colace 100 MG Capsule 1 capsule Orally Once a day in the morning Zoloft 100 MG Tablet 1 tablet Orally Once a day Metoprolol Succinate 25 MG Capsule ER 24 Hour Sprinkle 1 capsule Orally Once a day Taking hydrOXYzine HCl 50 MG Tablet 1 tablet as needed Orally four times a day as needed for anxiety Taking Ferrous Gluconate 324 (38 Fe) MG Tablet 1 tablet Orally daily Taking Diclofenac Sodium 1 % Gel as directed Externally four times a day 2g per application Taking Benztropine Mesylate 1 MG Tablet 1 tablet Orally twice a day Taking amLODIPine Besylate 10 MG Tablet 1 tablet Orally Once a day Taking metFORMIN HCl 500 MG Tablet 1 tablet Orally with dinner Taking [place] Carbonate 600 MG Capsule 1 tablet Orally twice a [...] Haloperidol 5 MG Tablet take 3 tablets at bed time, may take 1/2 pill as needed for agitation Orally daily Taking Colace 100 MG Capsule 1 capsule Orally Once a day in the morning Taking Zoloft 100 MG Tablet 1 tablet Orally Once a day Taking Metoprolol Succinate 25 MG Capsule ER 24 Hour Sprinkle 1 capsule Orally Once a day DiscontinuedFerrous Sulfate 325 (65 Fe) MG Tablet 1 tablet Orally Three times a Week traZODone HCl 50 MG Tablet 2 tablets Orally Once a day at bedtime Discontinued Ferrous Sulfate 325 (65 Fe) MG Tablet 1 tablet Orally Three times a Week Discontinued traZODone HCl 50 MG Tablet 2 tablets Orally Once a day at bedtime UnknownClotrimazole-Betamethasone 1-0.05 % Cream 1 application Externally Twice a day Dulcolax 1200 MG/15ML Suspension take 30ml by mouth at bedtime as needed Orally Once a day As needed fpr asthma shorness of breath/wheezeAlbuterol Sulfate 108 (90 Base) MCG/ACT Aerosol Powder Breath Activated 1 puff as needed Inhalation every 4 hrs Naltrexone HCl 50 MG Tablet 1 tablet Orally Once a day Folic Acid 1 MG Tablet 1 tablet Orally Once a day Capsaicin 0.025 % Lotion as directed Externally Artificial Tear Solution - Solution as directed Ophthalmic Chlorthalidone 25 MG Tablet 0.5 tablet in the morning with food Orally Once a day Medication List reviewed and reconciled with the patientUnknown Clotrimazole-Betamethasone 1-0.05 % Cream 1 application Externally Twice a day Unknown Dulcolax 1200 MG/15ML Suspension take 30ml by mouth at bedtime as needed Orally Once a day As needed fpr asthma shorness of breath/wheezeUnknown Albuterol Sulfate 108 (90 Base) MCG/ACT Aerosol Powder Breath Activated 1 puff as needed Inhalation every 4 hrs Unknown Naltrexone HCl 50 MG Tablet 1 tablet [...]
--- OUTSIDE RECORDS SUMMARY | 2024-10-28 06:24 | XMS_ITS ---
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 Phone Lamine Lin Primary Care Provider Unavailabl e Clinical, Operations Unavailable Unavailable Allergies Allergen (clinical drug ingredient) Drug/Non Drug Allergy documented on EMR Reaction Allergy Type Onset Date Status mushrooms (uncoded) Unknown Allergy Active Substance with sulfonamide structure and antibacterial mechanism of action (substance) sulfa drugs (uncoded) Unknown Allergy Active Substance with sulfonamide structure and antibacterial mechanism of action (substance) sulfonomide (uncoded) Unknown Allergy Active lisinopril Lisinopril Unknown Drug Allergy Activ e clonidine Clonidine Unknown Drug Allergy Active Milk-related Compounds Unknown Drug Allergy Active REASON FOR VISIT hospital discharge med rec Medications Medication SIG (Take, Route, Frequency, Duration) Notes Start Date End Date Status Breo Ellipta 100-25 MCG/ACT 1 puff Inhalation Once a day Active Diclofenac Sodium 1 % as directed Externally four times a day 2g per application Unknown Clotrimazole-Betamethas one 1-0.05 % 1 application Externally Twice a day Unknown Naltrexone HCl 50 MG 1 tablet Orally Onc e a day Active Metoprolol Succinate 25 MG 2 capsules Orally Once a day Unknown Ferrous Gluconate 324 (38 Fe) MG 1 tablet Orally daily Unknow n Fluticasone Propionate 50 MCG/ACT 1 spray in each nostril Nasally Once a day Unknown Artificial Tear Solution - as directed Ophthalmic Unknown Loratadine 10 MG 1 tablet Orally Once a day as needed Active Ozempic (0.25 or 0.5 MG/DOSE) 2 MG/3ML as directed Subcutaneous 0.5mg/weekly Unknown Nicotine Polacrilex 4 MG 1 piece chew for 30 minutes as needed Mouth/Throat every 8 hrs Active Colace 100 MG 1 capsule Orally Onc e a day in the morning Unknown Spiriva Respimat 1.25 MCG/ACT 2 puffs Inhalation Once a day Unknown traZODone HCl 50 MG 1 tablet at bedtime Orally daily Active Haloperidol 10 MG 10mg Orally at bedtime Unknown Prazosin HCl 2 MG 1 capsule at bedtime Orally Once a day Unknown Gabapentin 800 MG 1 tablet Orally 3 times a day Active Multivitamin - 1 tablet Orally Once a day Active Losartan Potassium 25 MG 1 tablet Orally Once a day Active Pantoprazole Sodium 40 MG 1 tablet Orally Once a day Unknown metFORMIN HCl 500 MG 2 tablets Orally Twice a day Active [place] Carbonate 600 MG 1 tablet Orally at bedtime Unknown Benztropine Mesylate 1 MG 1 tablet Orally twice a day Unknown amLODIPine Besylate 10 MG 1 tablet Orally Once a day Active Ferrous Sulfate 325 (65 Fe) MG 1 tablet Orally Three times a Week Unknown Melatonin 3 MG 1 tablet Orally at bedtime Active lamoTRIgine 25 MG 2 tablets Orally daily Active Acetaminophen 325 MG 2 tablets as needed Orally every 6 hrs Active Naloxone HCl 4 MG/0.1ML as directed Nasally Active hydrOXYzine Pamoate 50 MG 1 capsule Orally three times a day as needed for anxiety Active Haloperidol Decanoate 100 MG/ML 2ml Intramuscular every 28 days Active Cholecalciferol 25 MCG (1000 UT) 1 capsule Orally Once a day Active Ammonium Lactate 12 % 1 application Externally Twice a day Active DULoxetine HCl 30 MG 1 capsule Orally On ce a day Active Cyanocobalamin 1000 MCG 1 tablet Orally Once a day Active Thiamine HCl 100 MG 1 tablet Orally Once a day Active Ondansetron 4 MG 1 tablet on the tongue and allow to dissolve Orally every 6 hours as needed for nausea and vomiting Active Incruse Ellipta 62.5 MCG/ACT 1 puff Inhalation Once a day Active Omeprazole 20 MG 1 capsule 1/2 to 1 hour before morning meal Orally Once a day Active Lutein-Zeaxanthin - as directed Orally Active Zoloft 100 MG 1 tablet Orally Once a day Unknown Folic Acid 1 MG 1 tablet Orally Once a day Unknown Albuterol Sulfate 108 (90 Base) MCG/ACT 1 puff as needed Inhalation every 4 hrs Active Capsaicin 0.025 % as directed Externally Unknown Chlorthalidone 25 MG 0.5 tablet in the morning with food Orally Once a day Unknown Dulcolax 1200 MG/15ML take 30ml by mouth at bedtime as needed Orally Once a day As needed fpr asthma shorness of breath/wheeze Unknown Encounters Encounter Location Date Provider Diagnosis [facility] ([facility]) [address] [place] [id number] 10/28/2024 Operations Clinical Plan Of Treatment No Information Progress Notes * HELLEN MUSTAFA WDOB: (34 yo M)Acc No.[id number]:10/28/2024 BLOCKED FROM THE PATIENT Patient: HELLEN VALADEZ :1990 A ge:34 Y S ex:Male Address:[address] [place] [address], [address] [address] Subjective: * Chief Complaints: * H ospital discharge med rec * Medical History: * Surgical History: * Hospitalization/Major Diagno stic Procedure: * Medications: T akingIncruse Ellipta 62.5 MCG/ACT Aerosol Powder Breath Activated 1 puff Inhalation Once a day Thiamine HCl 100 MG Tablet 1 tablet Orally Once a day Ondansetron 4 MG Tablet Disintegrating 1 tablet on the tongue and allow to dissolve Orally every 6 hours as needed for nausea and vomiting Omeprazole 20 MG Capsule Delayed Release 1 capsule 1/2 to 1 hour before morning meal Orally Once a day Lutein-Zeaxanthin - Tablet as directed Orally Haloperidol Decanoate 100 MG/ML Solution 2ml Intramuscular every 28 days DULoxetine HCl 30 MG Capsule Delayed Release Particles 1 capsule Orally Once a day Cyanocobalamin 1000 MCG Tablet 1 tablet Orally Once a day Cholecalciferol 25 MCG (1000 UT) Capsule 1 capsule Orally Once a day Ammonium Lactate 12 % Lotion 1 application Externally Twice a day Acetaminophen 325 MG Tablet 2 tablets as needed Orally every 6 hrs Naloxone HCl 4 MG/0.1ML Liquid as directed Nasally Melatonin 3 MG Capsule 1 tablet Orally at bedtime lamoTRIgine 25 MG Tablet 2 tablets Orally daily hydrOXYzine Pamoate 50 MG Capsule 1 capsule Orally three times a day as needed for anxiety amLODIPine Besylate 10 MG Tablet 1 tablet Orally Once a day metFORMIN HCl 500 MG Tablet 2 tablets Orally Twice a day Gabapentin 800 MG Tablet 1 tablet Orally 3 times a day Losartan Potassium 25 MG Tablet 1 tablet Orally Once a day Multivitamin - Tablet 1 tablet Orally Once a day traZODone HCl 50 MG Tablet 1 tablet at bedtime Orally daily Nicotine Polacrilex 4 MG Gum 1 piece chew for 30 minutes as needed Mouth/Throat every 8 hrs Loratadine 10 MG Tablet 1 tablet Orally Once a day as needed Breo Ellipta 100-25 MCG/ACT Aerosol Powder Breath Activated 1 puff Inhalation Once a day Naltrexone HCl 50 MG Tablet 1 tablet Orally Once a day Albuterol Sulfate 108 (90 Base) MCG/ACT Aerosol Powder Breath Activated 1 puff as needed Inhalation every 4 hrs Taking Incruse Ellipta 62.5 MCG/ACT Aerosol Powder Breath Activated 1 puff Inhalation Once a day Taking Thiamine HCl 100 MG Tablet 1 tablet Orally Once a day Taking Ondansetron 4 MG Tablet Disintegrating 1 tablet on the tongue and allow to dissolve Orally every 6 hours as needed for nausea and vomiting Taking Omeprazole 20 MG Capsule Delayed Release 1 capsule 1/2 to 1 hour before morning meal Orally Once a day Taking Lutein-Zeaxanthin - Tablet as directed Orally Taking Haloperidol Decanoate 100 MG/ML Solution 2ml Intramuscular every 28 days Taking DULoxetine HCl 30 MG Capsule Delayed Release Particles 1 capsule Orally Once a day Taking Cyanocobalamin 1000 MCG Tablet 1 tablet Orally Once a day Taking Cholecalciferol 25 MCG (1000 UT) Capsule 1 capsule Orally Once a day Taking Ammonium Lactate 12 % Lotion 1 application Externally Twice a day Taking Acetaminophen 325 MG Tablet 2 tablets as needed Orally every 6 hrs Taking Naloxone HCl 4 MG/0.1ML Liquid as directed Nasally Taking Melatonin 3 MG Capsule 1 tablet Orally at bedtime Taking lamoTRIgine 25 MG Tablet 2 tablets Orally daily Taking hydrOXYzine Pamoate 50 MG Capsule 1 capsule Orally three times a day as needed for anxiety Taking amLODIPine Besylate 10 MG Tablet 1 tablet Orally Once a day Taking metFORMIN HCl 500 MG Tablet 2 tablets Orally Twice a day Taking Gabapentin 800 MG Tablet 1 tablet Orally 3 times a day Taking Losartan Potassium 25 MG Tablet 1 tablet Orally Once a day Taking Multivitamin - Tablet 1 tablet Orally Once a day Taking traZODone HCl 50 MG Tablet 1 tablet at bedtime Orally daily Taking Nicotine Polacrilex 4 MG Gum 1 piece chew for 30 minutes as needed Mouth/Throat every 8 hrs Taking Loratadine 10 MG Tablet 1 tablet Orally Once a day as needed Taking Breo Ellipta 100-25 MCG/ACT Aerosol Powder Breath Activated 1 puff Inhalation Once a day Taking Naltrexone HCl 50 MG Tablet 1 tablet Orally Once a day Taking Albuterol Sulfate 108 (90 Base) MCG/ACT Aerosol Powder Breath Activated 1 puff as needed Inhalation every 4 hrs UnknownFerrous Sulfate 325 (65 Fe) MG Tablet 1 tablet Orally Three times a Week Benztropine Mesylate 1 MG Tablet 1 tablet Orally twice a day [place] Carbonate 600 MG Capsule 1 tablet Orally at bedtime Prazosin HCl 2 MG Capsule 1 capsule at bedtime Orally Once a day Pantoprazole Sodium 40 MG Tablet Delayed Release 1 tablet Orally Once a day Haloperidol 10 MG Tablet 10mg Orally at bedtime Colace 100 MG Capsule 1 capsule Orally Once a day in the morning Spiriva Respimat 1.25 MCG/ACT Aerosol Solution 2 puffs Inhalation Once a day Artificial Tear Solution - Solution as directed Ophthalmic Ferrous Gluconate 324 (38 Fe) MG Tablet 1 tablet Orally daily Fluticasone Propionate 50 MCG/ACT Suspension 1 spray in each nostril Nasally Once a day Ozempic (0.25 or 0.5 MG/DOSE) 2 MG/3ML Solution Pen-injector as directed Subcutaneous , Notes to Pharmacist: 0.5mg/weeklyMetoprolol Succinate 25 MG Capsule ER 24 Hour Sprinkle 2 capsules Orally Once a day Diclofenac Sodium 1 % Gel as directed Externally four times a day 2g per application Clotrimazole-Betamethasone 1-0.05 % Cream 1 application Externally Twice a day Dulcolax 1200 MG/15ML Suspension take 30ml by mouth at bedtime as needed Orally Once a day As needed fpr asthma shorness of breath/wheezeZoloft 100 MG Tablet 1 tablet Orally Once a day Folic Acid 1 MG Tablet 1 tablet Orally Once a day Capsaicin 0.025 % Lotion as directed Externally Chlorthalidone 25 MG Tablet 0.5 tablet in the morning with food Orally Once a day Medication List reviewed and reconciled with the patientUnknown Ferrous Sulfate 325 (65 Fe) MG Tablet 1 tablet Orally Three times a Week Unknown Benztropine Mesylate 1 MG Tablet 1 tablet Orally twice a day Unknown [place] Carbonate 600 MG Capsule 1 tablet Orally at bedtime Unknown Prazosin HCl 2 MG Capsule 1 capsule at bedtime Orally Once a day Unknown Pantoprazole Sodium 40 MG Tablet Delayed Release 1 tablet Orally Once a day Unknown Haloperidol 10 MG Tablet 10mg Orally at bedtime Unknown Colace 100 MG Capsule 1 capsule Orally Once a day in the morning Unknown Spiriva Respimat 1.25 MCG/ACT Aerosol Solution 2 puffs Inhalation Once a day Unknown Artificial Tear Solution - Solution as directed Ophthalmic Unknown Ferrous Gluconate 324 (38 Fe) MG Tablet 1 tablet Orally daily Unknown Fluticasone Propionate 50 MCG/ACT Suspension 1 spray in each nostril Nasally Once a day Unknown Ozempic (0.25 or 0.5 MG/DOSE) 2 MG/3ML Solution Pen-injector as directed Subcutaneous , Notes to Pharmacist: 0.5mg/weeklyUnknown Metoprolol Succinate 25 MG Capsule ER 24 Hour Sprinkle 2 capsules Orally Once a day Unknown Diclofenac Sodium 1 % Gel as directed Externally four times a day 2g per application Unknown Clotrimazole-Betamethasone 1-0.05 % Cream 1 application Externally Twice a day Unknown Dulcolax 1200 MG/15ML Suspension take 30ml by mouth at bedtime as needed Orally Once a day As needed fpr asthma shorness of breath/wheezeUnknown Zoloft 100 MG Tablet 1 tablet Orally Once a day Unknown Folic Acid 1 MG Tablet 1 tablet Orally Once a day Unknown Capsaicin 0.025 % Lotion as directed Externally Unknown Chlorthalidone 25 MG Tablet 0.5 tablet in the morning with food Orally Once a day Medication List reviewed and reconciled with the patient * Allergies: C lonidineMilk-related CompoundsLisinopril: Allergymushrooms: Allergysulfonomide: Allergysulfa drugs: Allergyno[Allergies Verified] Objective: * Vitals: * Physical Examination: Assessment: Plan: * Treatment: * Procedure Codes: * * Date:
--- NOTE | 2025-01-31 14:38 | PM.IMHP ---
History of Present Illness Date of Service: 01/31/25 Chief Complaint: Acute hypoxic respiratory failure, FLU A 34-year-old male with past medical history of nonalcoholic fatty liver disease, GERD, anxiety, schizoaffective disorder, depression, hypertension, type 2 diabetes and alcohol use disorder presented to the ED due to persistent left-sided abdominal pain and concerns of blood in his urine. Patient was reportedly told that one of his [facility] providers total that he has cancer and this has caused him extreme distress along with increased depression anxiety, this resulted in passive suicidal thoughts without a plan. Admitted to the inpatient psych psychiatric unit for treatment. Overnight patient developed a temperature of 103.6 with decreased oxygen saturations 80s to 90s. Patient was also tachycardic. His workup revealed a leukocytosis of 13.3 with normal neutrophil count. SGOT of 32, renal function was stable, his AST and ALT were slightly elevated baseline for this patient, his CK was noted to be 385, received a Liter of normal saline. Chest x-ray revealed pneumonitis and atelectasis. His respiratory panel revealed positive influenza A. ProBNP was normal less than 15.8 lactic acid was 0.9. Blood cultures were collected, sputum was collected, results pending. Urinalysis negative. Notably patient has severe sleep apnea and uses a CPAP. While in inpatient psych Tamiflu was started, patient received a total of 90 mg of prednisone and updraft nebulizer treatments. Review of Systems Review of Systems: + shortness of breath, chest pain, dizziness, lightheadedness, abdominal pain or discomfort, nausea vomiting or diarrhea PMFSH Medical History Cannabis use disorder Alcohol use disorder Morbid obesity Medical clearance for psychiatric admission Schizoaffective disorder Diabetes HTN (hypertension) Social History Household Members: None Housing: Apartment Do you presently have visiting nurse or other home services: Yes (MAINTENANCE TECHNICIAN and RN to help with medications) Alcohol intake: current Alcohol intake frequency: 3 or more drinks per day Alcohol type: hard liquor Patient Tobacco Use Status: Current everyday Tobacco user Tobacco use type: Cigarette Cigarette Packs Per Day: 2 Cigarettes Per Day: 40.0 Years Smoked: 15 e-Cigarette/Vaping Use: Currently Using Second Hand Smoke Exposure: No Substance Use Type: Marijuana Advance Directives: No Advance Directives Information Provided: No service: No Sexual orientation: Straight/Heterosexual Meds Allergies Allergy/AdvReac Type Severity Reaction Status Date / Time lisinopril Allergy Unknown Cough Verified 01/26/25 11:49 clonidine AdvReac Unknown Unknown Verified 01/26/25 11:49 Active Medications: Current Medications Acetaminophen (Acetaminophen 325 Mg Tablet) 650 mg PO Q6H PRN PRN Reason: Pain, Mild 1-3,fever,headache Albuterol/Ipratropium (Albuterol/Iprat 2.5/0.5mg 3 Ml Ampul.Neb) 3 ml INHALE RQ6H WHILE AWAKE EDWIGE Calcium Carbonate (Calcium Carbonate 750 Mg Tab.Chew) 750 mg PO Q4H PRN PRN Reason: Heartburn Docusate Sodium (Docusate Sodium 100 Mg Capsule) 100 mg PO BID EDWIGE Enoxaparin Sodium (Enoxaparin Sodium 40 Mg/0.4 Ml Syringe) 40 mg SUBCUT Q24H EDWIGE Magnesium Hydroxide (Milk Of Magnesia 30 Ml Oral.Susp) 30 ml PO DAILY PRN PRN Reason: Constipation Melatonin (Melatonin 3 Mg Tablet) 6 mg PO BEDTIME PRN PRN Reason: Insomnia Methylprednisolone Sodium Succinate (Methylprednisolone Sod Succ 125 Mg/2 Ml Vial) 60 mg IVPUSH Q12H EDWIGE Oseltamivir Phosphate (Oseltamivir Phosphate 75 Mg Capsule) 75 mg PO Q12H EDWIGE Stop: 02/04/25 21:01 Polyethylene Glycol (Polyethylene Glycol 3350 17 Gm Powd.Pack) 17 gm PO DAILY PRN PRN Reason: Constipation Sodium Chloride (0.9 % Sodium Chloride Flush 3 Ml Syringe) 3 ml IVFLUSH QSHIFT [facility] Home Medications ?Medication ?Instructions ?Recorded ?Confirmed ?Last Taken ?Type ondansetron 4 mg disintegrating 4 mg PO Q8H PRN Nausea And Vomiting 09/12/24 01/27/25 Unknown History tablet ammonium lactate 12 % lotion 1 appl topical DAILY 09/13/24 01/27/25 01/06/25 History tirzepatide 2.5 mg/0.5 mL 2.5 mg subcut SA 01/27/25 01/27/25 Unknown History subcutaneous pen injector (Mari) Physical Exam Vital Signs and Narrative: Alert and oriented X3, calm and cooperative. Answers questions. Neuro: CN II-X11 intact, no deficits, visual acuity intact EYES: PERRLA, EOM intact ENT: Hearing intact, MMM Cardiac: S1 S2 RRR, No ectopy Pulmonary: lungs with wheezes throughout. Frequent cough No increased WOB. Abdominal: BS active in all 4 quadrants, no guarding or tenderness MSK: Strength 5/5 upper and lower extremities : Deferred Extremities: No edema in lower extremities Psych: Mood stable. Skin: Warm and dry, Intact. No cyanosis. Assessment and Plan (1) Acute hypoxic respiratory failure: Status: Acute Plan 34-year-old male with past medical history listed below presented to the emergency department with suicidal ideation. Admitted for inpatient psychiatric stabilization. Developed hypoxia and temp overnight. Positive for influenza A. Now admitted to [facility] for further care and treatment. Acute hypoxic respiratory failure secondary to FLU A Solu-Medrol b.i.d. Updraft nebulizers QID while awake Chest x-ray without evidence of pneumonia Continue Tamiflu x9 more doses. Sepsis ruled out due to lactic acid within normal limits. Droplet precautions. Oxygen to maintain sats greater than 90% Schizoaffective disorder/suicidal ideation/substance use disorder/alcohol use disorder We will need CARE team consult when medically stable Type 2 diabetes Continue metformin b.i.d. Continue Mari Recent A1c 5.8 done in August. Insulin sliding scale due to steroid use. Hypertension Continue amlodipine and Cozaar, Toprol Blood pressure stable Severe ESHA on CPAP/Sleep-related hypoxia Patient utilizing CPAP at HS Should use CPAP during nap time or supplemental oxygen to maintain sats greater than 90% GERD Continue Omeprazole to 20 mg b.i.d. Constipation Colace b.i.d. and senna at HS MiraLax daily Encourage water and fiber intake. Code status: Full DVT prophylaxis: Lovenox Need for stay: Acute hypoxic respiratory failure, Influenza A Quality Stroke Does the patient have a stroke diagnosis?: No VTE Prior VTE?: No VTE Risk Level:: Medical - moderate - high VTE Device Contraindication: Treatment Not Indicated VTE Drug Contraindication: N/A - Med Ordered
[2025-01-31 14:41] VITALS: BMI 57.2
[2025-01-31 14:51] VITALS: BP 154/93; PULSE 112; RESP 18; TEMP 36.3; O2SAT 91
[2025-01-31 15:14] LABS: MANUAL DIFF FLAG NO
[2025-01-31 15:22] LABS: Hematocrit 40.4 % (42.0-52.0); Hemoglobin 12.1 g/dl (14.0-18.0); Imm Gran Abs Auto 0.09 X10*3/uL (0.00-0.03); Imm Gran Pct Auto 1.0 % (0.0-0.4); Lymphocytes Absolute Auto 1.3 X10*3/uL (1.2-4.9); Mean Corpuscular HGB Conc 30.0 g/dl (31.0-36.0); Mean Corpuscular Hemoglobin 25.3 pg (27.0-33.0); Mean Corpuscular Volume 84.5 fL (80.0-98.0); NRBC Abs Auto 0.000 X10*3/uL (0.0-0.012); NRBC Pct Auto 0.0 /100WBC (0.0-0.2); Platelet Count 251 X10*3/uL (160-400); Red Blood Count 4.78 X10*6/uL (4.60-5.80); White Blood Count 8.7 X10*3/uL (4.8-10.8)
--- NOTE | 2025-01-31 15:30 | PHA.MEDREC ---
Pharmacy Consult ? Medication Reconciliation Pharmacy has completed the medication reconciliation. Pt transferred from ([id number]). Utilized med list from previous admission.
[2025-01-31 16:00] VITALS: BP 158/87; RESP 20; TEMP 36.2; O2SAT 92
[2025-01-31 16:14] VITALS: PULSE 112; RESP 20; O2SAT 91
[2025-01-31 17:03] LABS: Glucose, Whole Blood 161 mg/dL (60-115)
[2025-01-31] MEDS: 0.9 % Sodium Chloride Flush 3 ML SYRINGE IVFLUSH (17:13)
--- OUTSIDE RECORDS SUMMARY | 2025-01-31 19:36 | XMS_ITS | Clinical Summary ---
Author Organization [facility] Address [address] [place] [phone] Phone Care Team Providers Care Composition Professor Name Role Phone Pcp, Unknown Primary Care [...] EDT) SODIUM 138 133 - 146 mmol/L [facility] CHLORIDE 99 96 - 108 mmol/L [facility] POTASSIUM 3.5 3.3 - 5.1 mmol/L [facility] CO2 30 21 - 35 mmol/L [facility] BUN 12 6 - 19 mg/dL [facility] CREATININE 0.90 0.5 - 1.5 mg/dL [facility] GLUCOSE 91 70 - 99 mg/dL [facility] CALCIUM 9.8 8.4 - 10.3 mg/dL [facility] EGFR 116 >59 mL/min/1.7 3m2 [facility] Comment:Estimated glomerular filtration rate calculated using the CKD-EPI refit equation. ANION GAP 13 10 - 20 mmol/L [facility] Blood 07/20/2021 1:43 PM EDT 07/20/2021 2:13 PM EDT us Alex Wolf MD LAB BLOOD BKR ORD ERABLES Final Result [facility] [address] [place] [address] from Last 3 Months or Most Recently Relevant to Health Maintenance [facility] & B [facility] ONE CARE MEDICARE REPLACEMENT [facility] MEDIC[facility] PART A & B [facility] ONE CARE MEDICARE [facility]PLACEMENT [facility] MEDICARE PART A & B [facility] CARE MEDICARE REPLACEMENT [facility] & B [facility] ONE CARE MEDICARE REPLACEMENT [facility] & B [facility] MEDICARE [facility]PLACEMENT [facility] MEDICARE PART A & B [facility] ONE CARE MEDICARE [facility]PLACEMENT [facility] MEDICARE PART A & B [facility] CARE MEDICARE [facility]PLACEMENT [facility] MEDICARE PART A & B [facility] ONE CARE MEDICARE REPLACEMENT [facility] MEDICARE PART A & B [facility] ONE CARE MEDICARE REPLACEMENT Care Teams Composition Professor Relationship Specialty Start Date End Date Pcp, Unknown PCP - General 07/16/21 Additional Source Comments The information contained in this document represents components of the legal health record. It is not the complete legal health record.[facility]
--- OUTSIDE RECORDS SUMMARY | 2025-01-31 19:36 | XMS_ITS | Continuity of Care Document ---
Author Name Taqueria Schwartz Address [address] [place] [id number] Organization Unknown Address [address] [place] [address] Medications No known medications Problems No known problems
--- OUTSIDE RECORDS SUMMARY | 2025-01-31 19:36 | XMS_ITS | Encounter Summary ---
Author Organization [employer] [facility] Address [address] [place] [phone] Phone Care Team Providers Care Vice President Fixed Income Name Role Phone Pcp, Unknown Primary Care Provider Unavailabl e Encounter Details Date Type Department Care Team (Late st Contact Info) Description 07/20/2021 Procedure Pass [facility], Ct Scan - [address] [address] Social History Tobacco Use Types Packs/Day Years [...] 12:36 PM EDT Suzi Lee RN * [place] Suicide Severity Rating Scale (Screener/Recent Self-Report) Question [...] on filedocumented in this encounter Care Teams Vice President Fixed Income Relationship Specialty Start Date End Date Pcp, Unknown PCP - General 07/16/21 documented as of this encounter Additional Source Comments The information contained in this document represents components of the legal health record. It is not the complete legal health record.[facility]
--- OUTSIDE RECORDS SUMMARY | 2025-01-31 19:36 | XMS_ITS | Clinical Summary ---
Author Organization [facility] Address [address] [place] [address] Phone Care Team Providers Care Wallpaper Hanger Helper Name Role Phone Physician, Pcp Unknown Primary [...] Problem Noted Date Diagnosed Date Schizoaffective disorder, bipolar type MORRIS (generalized anxiety disorder) 04/03/2024 PTSD (post-traumatic stress disorder) 04/03/2024 Alcohol use disorder, moderate, dependence 04/03 Cannabis use disorder, mild, abuse 04/03/2024 Type 2 diabetes mellitus wit hout complication, without long-term current use of insulin 04/03/2024 Heart failure 04/03/2024 COPD (chronic obstructive pulmonary disease) 01/2025 GERD (gastroesophageal reflux disease) HTN (hypertension) 04/03/2024 HLD (hyperlipidemia) 04/03/2024 ESHA (obstructive sleep apnea) 04/03/2024 Morbid obesity 04/03/2024 Iron deficiency anemia 04/03/2024 Medical History Medical History Date Comments Diabetes mellitus (CMS/HCC V 24, CMS/HCC V28) DX:Diabetes mellitus (HCC) Hypertension DX:Hypertension GERD (gastroesophageal reflux disease) DX:GERD (gastroesophageal reflux disease) Sleep apnea DX:Sleep apnea COPD (chronic obstructive pu lmonary disease) ([facility] V24, [facility] V28) Depression Anxiety Social History Tobacco Use [...] on file Sexual Orientation Not on file Last Filed [...] mmol/L LAB CHEMISTRY METHOD 09/10/2024 1:26 AM [facility] Potassium 4.5 3.5 - 5.5 mmol/L LAB CHEMISTRY METHOD 09/10/2024 1:26 AM [facility] Chloride 106 96 - 110 mmol/L LAB CHEMISTRY METHOD 09/10/2024 1:26 AM [facility] CO2 30 21 - 32 mmol/L LAB CHEMISTRY METHOD 09/10/2024 1:26 AM [facility] Anion Gap 3 3 - 11 LAB CHEMISTRY METHOD 09/10/2024 1:26 AM [facility] Glucose 96 70 - 100 mg/dL LAB CHEMISTRY METHOD 09/10/2024 1:26 AM [facility] BUN 12 5 - 25 mg/dL LAB CHEMISTRY METHOD 09/10/2024 1:26 AM [facility] Creatinine 0.98 0.70 - 1.30 mg/dL LAB CHEMISTRY METHOD 09/10/2024 1:26 AM [facility] eGFR 102 >=60 mL/min/1. 73m2 LAB CHEMISTRY METHOD 09/10/2024 1:26 AM [facility] Comment:Calculation based on the Chronic Kidney Disease Epidemiology Collaboration (CKD-EPI) equation refit without adjustment for race. BUN/Creatinine Ratio 12.2 LAB CHEMISTRY METHOD 09/10/2024 1:26 AM [facility] Calcium 9.1 8.5 - 10.5 mg/dL LAB CHEMISTRY METHOD 09/10/2024 1:26 AM [facility] AST (SGOT) 37 10 - 42 unit/L LAB CHEMISTRY METHOD 09/10/2024 1:26 AM [facility] ALT (SGPT) 41 10 - 60 unit/L LAB CHEMISTRY METHOD 09/10/2024 1:26 AM [facility] Alkaline Phosphatase 78 42 - 121 unit/L LAB CHEMISTRY METHOD 09/10/2024 1:26 AM EDT [facility] Total Protein 7.1 6.0 - 8.0 g/dL LAB CHEMISTRY METHOD 09/10/2024 1:26 AM EDT [facility] Albumin 4.0 3.2 - 5.0 g/dL LAB CHEMISTRY METHOD 09/10/2024 1:26 AM EDT [facility] Total Bilirubin 0.3 0.0 - 1.4 mg/dL LAB CHEMISTRY METHOD 09/10/2024 1:26 AM EDT [facility] Blood Venous blood specimen / Unknown Venipuncture / Unknown 09/10/2024 12:17 AM EDT 09/10/2024 12:54 AM EDT us Clark Fischer MD LAB BLOOD ORDERABLES Final Resu lt [facility] [address] [place] [address], * (ABNORMAL) Hemoglobin A1c (04/07/2024 7:57 AM EST) Hemoglobin A1C 5.8(H) <5.7 % LAB CHEMISTRY METHOD 04/07/2024 2:26 PM EST [facility] Mean Bld Glu Estim. 120 mg/dL LAB CHEMISTRY METHOD 04/07/2024 2:26 PM EST [facility] Blood Venous blood specimen / Unknown Venipuncture / Unknown 04/07/2024 7:57 AM EST 04/07/2024 8:01 AM EST Narrative [facility] - 04/07/2024 2:26 PM EST ADA Guidelines: Increased risk Diabetes Mellitus A1C 5.7 - 6.4% and Fasting Blood Glucose 100 - 125 mg/dl Diabetes Mellitus: A1C >6.5% and Fasting Blood Glucose >125 mg/dl us Alcides Garner MD LAB BLOOD ORDERABL ES Final Result [facility] [address] [place] [address], [place] [phone] from Last 3 Months or Most Recently Relevant to Health Maintenance Insurance [employer] MEDICARE Member Subscriber Plan / Payer (Ef fective 2019-Present) Name:STEF MUSTAFA Relation to Subscriber:Self Name:Stef Lugo Payer ID:[id number] Group ID:[id number] Type:Not on file Address: [place] [address] [place] [place] [id number] Advance Directives * Full Code - Default [...] currently active code status orders. Care Teams Wallpaper Hanger Helper Relationship Specialty Start Date End Date Physician, Pcp Unknown PCP - General 09/09/24
--- OUTSIDE RECORDS SUMMARY | 2025-01-31 19:37 | XMS_ITS | Encounter Summary ---
Author Organization [facility] Address [address] [place] [address] Encounters * CPT with Taqueria Schwartz at [employer] on 2024-08-18 { reasonForRequest : BP 150/89, [...] was noted. Pt denies any abdominal pain. [facility] contacted and ordered an EKG. Results were [...]
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
--- OUTSIDE RECORDS SUMMARY | 2025-01-31 19:38 | XMS_ITS | Clinical Summary ---
Author Organization [facility] Prior to 07/20/24 Address [address] [place] [address] Care Team Providers Care Silk Screen Processor Name Role Phone Unavailable Primary Care Provider [...] Advance Directives For more information, please contact: [phone] Latest Code Status on File Code Status Date Activated Date Inactivated Comments Full Code 09/30/2020 1:54 AM 10/05/2020 9:45 PM This code status was ascertained in the following way: per unit protocol.
[2025-01-31 19:58] VITALS: PULSE 100; RESP 20; O2SAT 95
[2025-01-31] MEDS: Albuterol/Iprat 2.5/0.5MG 3 ML AMPUL.NEB INHALE (19:58)
[2025-01-31 20:00] VITALS: BP 138/79; PULSE 101; RESP 19; TEMP 36.3; O2SAT 92
[2025-01-31 20:37] LABS: Glucose, Whole Blood 183 mg/dL (60-115)
[2025-01-31] MEDS: Nystatin Oral Susp 500,000 UNIT/5 ML ORAL.SUSP 400000 UNIT PO (20:39)
[2025-01-31] MEDS: Erythromycin Base 0.5% Oph Oin 1 GM TUBE 1 CM EYE-RIGHT (20:50)
[2025-01-31 21:22] VITALS: O2SAT 92
[2025-02-01] VITALS (11 sets, daily range): BP systolic 122–144; BP diastolic 56–85; PULSE 82–97; RESP 16–19; TEMP 36–37; O2SAT 85–98
[2025-02-01 06:04] LABS: MANUAL DIFF FLAG NO
[2025-02-01 06:08] LABS: Hematocrit 41.8 % (42.0-52.0); Hemoglobin 12.5 g/dl (14.0-18.0); Imm Gran Abs Auto 0.09 X10*3/uL (0.00-0.03); Imm Gran Pct Auto 0.9 % (0.0-0.4); Lymphocytes Absolute Auto 1.4 X10*3/uL (1.2-4.9); Mean Corpuscular HGB Conc 29.9 g/dl (31.0-36.0); Mean Corpuscular Hemoglobin 25.3 pg (27.0-33.0); Mean Corpuscular Volume 84.6 fL (80.0-98.0); NRBC Abs Auto 0.000 X10*3/uL (0.0-0.012); NRBC Pct Auto 0.0 /100WBC (0.0-0.2); Platelet Count 268 X10*3/uL (160-400); Red Blood Count 4.94 X10*6/uL (4.60-5.80); White Blood Count 10.2 X10*3/uL (4.8-10.8)
[2025-02-01 06:27] LABS: Alanine Aminotransferase 49 U/L (0-40); Albumin Level 4.5 g/dL (3.5-5.0); Alkaline Phosphatase 86 U/L (39-117); Anion Gap 12 (12-20); Aspartate Amino Transferase 43 U/L (5-37); Blood Urea Nitrogen 16 mg/dL (9-16); Calcium 9.1 mg/dL (8.4-10.2); Carbon Dioxide 30 mmol/L (22-29); Chloride 102 mmol/L (96-108); Creatinine Clr Calc Pharmacy 197.4; Estimated Glomerular Filt Rate > 60; Potassium 4.9 mmol/L (3.3-5.1); Sodium 139 mmol/L (135-145); Total Protein 7.6 g/dL (6.5-8.0)
[2025-02-01 07:36] LABS: Glucose, Whole Blood 144 mg/dL (60-115)
[2025-02-01] MEDS: Albuterol/Iprat 2.5/0.5MG 3 ML AMPUL.NEB INHALE ×3 (08:48→20:20)
[2025-02-01] MEDS: Tiotropium Bromide 2.5 mcg 1 PUFF/2.5 MCG MIST.INHAL 2 PUFF INHALE (08:49)
--- NOTE | 2025-02-01 08:50 | PC.RT ---
pt in bed. sats 84% on room air. will add 2 l n/c. will let hopsitalist aware. pt using 3 l with cpap at night and prn. pt will need 02 most likely for home use.
[2025-02-01] MEDS: Nicotine 21 MG PATCH.TD24 TRANSDERMA (08:54)
[2025-02-01] MEDS: Nystatin Oral Susp 500,000 UNIT/5 ML ORAL.SUSP 400000 UNIT PO ×4 (08:54→20:55)
[2025-02-01] MEDS: Metoprolol Succinate ER 50 MG TAB.ER.24H PO (08:55)
[2025-02-01] MEDS: 0.9 % Sodium Chloride Flush 3 ML SYRINGE IVFLUSH ×3 (08:56→21:02)
[2025-02-01] MEDS: Erythromycin Base 0.5% Oph Oin 1 GM TUBE 1 CM EYE-RIGHT ×3 (08:56→20:53)
[2025-02-01] MEDS: Ammonium Lactate 12 % Lotion 226 GM BOTTLE 1 APPL TOPICAL (08:59)
[2025-02-01 11:18] LABS: Glucose, Whole Blood 214 mg/dL (60-115)
--- NOTE | 2025-02-01 11:39 | PC.NURSE ---
Valuables and belongings list filled out, belongings stored in 4th floor locker. CPAP at bedside.
--- NOTE | 2025-02-01 15:45 | MHC.CM.PN ---
CM MET WITH PT WITH A DEVELOPMENT PLANNER PT REPORTS HE LIVES ALONE AND HAS OUTREACH SUPPORT FROM [facility] OTHER MH SERVICES (SEE BELOW) HE ALSO HAS [facility] FOR BID MED ADMINISTRATION HE USES A CPAP FOR DME BUT SAYS HE WAS TOLD HE WOULD NEED O2 AT DC DECLINES A HCP PCP: JEAN PIERRE WILCOX IMM DELIVERED DCP: PT REPORTS HOPING TO DC HOME WITH RESUMPTION OF SUPPORTS TRANSPORT: [facility] CTS PROVIDERS: [facility]-LUZ COTTON [phone] [facility] [phone] RN SENIOR SOLUTIONS CONSULTANT- STACI DEL VALLE [phone] [facility] PROVID[facility]-MIRIAM VELASQUEZ ([email or web address] REJI NAYAK ([email or web address])
--- NOTE | 2025-02-01 16:01 | HO.PM.IMPN ---
Subjective Subjective Date of Service: 02/01/25 Interval History: Patient reports feeling significantly better as compared to yesterday. Reports that his breathing has improved, is more comfortable No dyspnea or tachypnea Review of Systems Review of Systems: Yes all other systems are reviewed and are negative Physical Exam Exam: Exam: General: A&O x3, oriented to time place person and situation, comfortable, no pain, MO habitus Cardiac: S1, S2 auscultated with no S3/4, no MRG. Well perfused. Respiratory: Normal breath sounds auscultated throughout all lung zones, without wheezing, rales. Normal rate. 2 L NC O2 GI/ : No abdominal pain on palpation, no masses or distentions. MSK: Normal ambulation without pain at bony prominences or musculature Neurological: Normal neurological examination on overview, without obvious CN II-XII abnormalities. Vital Signs: Vital Signs: Last Vital Signs Temp 96.8 F 02/01/25 15:38 Pulse 91 02/01/25 15:58 Resp 17 02/01/25 15:58 BP 133/73 02/01/25 15:38 Pulse Ox 93 02/01/25 15:38 O2 Del Method Nasal Cannula 02/01/25 15:38 O2 Flow Rate 2 02/01/25 15:38 BMI result Body Mass Index 57.2 Objective Data Active Medications Acetaminophen (Acetaminophen 325 Mg Tablet) 650 mg PO Q6H PRN PRN Reason: Pain, Mild 1-3,fever,headache Al Hydroxide/Mg Hydroxide (Magnesium Hydrox/Alum Hydrox 30 Ml Oral.Susp) 30 ml PO Q6H PRN PRN Reason: Heartburn/Nausea Albuterol Sulfate (Albuterol Sulfate 90 Mcg 8 Gm Inhaler) 1 puff INHALE QID PRN PRN Reason: Wheezing Albuterol/Ipratropium (Albuterol/Iprat 2.5/0.5mg 3 Ml Ampul.Neb) 3 ml INHALE RQ6H WHILE AWAKE [facility] Last Admin: 02/01/25 15:57 Dose: 3 ml Documented By: EVERARDO Amlodipine Besylate (Amlodipine Besylate 10 Mg Tablet) 10 mg PO DAILY [facility]; Protocol Last Admin: 02/01/25 08:55 Dose: 10 mg Documented By: ELIZ Artificial Tears (Artificial Tears 15 Ml Drops) 2 drop EYE-BOTH Q4H PRN PRN Reason: Dry Eyes Benzocaine (Throat Lozenge, Medicated Lozenge) 1 lozenge MUCOUS MEM Q2H PRN PRN Reason: Sore Throat Benztropine Mesylate (Benztropine Mesylate 1 Mg Tablet) 1 mg PO BID [facility] Last Admin: 02/01/25 08:55 Dose: 1 mg Documented By: ELIZ Calcium Carbonate (Calcium Carbonate 750 Mg Tab.Chew) 750 mg PO Q4H PRN PRN Reason: Heartburn Chlorpromazine HCl (Chlorpromazine Hcl 25 Mg Tablet) 25 mg PO Q6H PRN PRN Reason: anxiety, agitation Clozapine (Clozapine 100 Mg Tablet) 150 mg PO BEDTIME [facility] Last Admin: 01/31/25 20:36 Dose: 150 mg Documented By: CRIS Cyclobenzaprine HCl (Cyclobenzaprine Hcl 10 Mg Tablet) 10 mg PO TID PRN PRN Reason: back muscle spasm Docusate Sodium (Docusate Sodium 100 Mg Capsule) 100 mg PO BID [facility] Last Admin: 02/01/25 08:55 Dose: 100 mg Documented By: ELIZ Duloxetine HCl (Duloxetine Hcl 30 Mg Capsule.Dr) 30 mg PO DAILY [facility] Last Admin: 02/01/25 08:55 Dose: 30 mg Documented By: ELIZ Enoxaparin Sodium (Enoxaparin Sodium 40 Mg/0.4 Ml Syringe) 40 mg SUBCUT Q24H [facility] Last Admin: 01/31/25 17:12 Dose: 40 mg Documented By: ISAÍAS Erythromycin (Erythromycin Base 0.5% Oph Oin 1 Gm Tube) 1 cm EYE-RIGHT TID [facility] Last Admin: 02/01/25 14:19 Dose: 1 cm Documented By: ELIZ Folic Acid (Folic Acid 1 Mg Tablet) 1 mg PO DAILY [facility] Last Admin: 02/01/25 08:54 Dose: 1 mg Documented By: ELIZ Gabapentin (Gabapentin 300 Mg Capsule) 300 mg PO TID [facility] Last Admin: 02/01/25 14:19 Dose: 300 mg Documented By: ELIZ Guaifenesin (Guaifenesin 200 Mg/10 Ml 10 Ml Liquid) 10 ml PO Q4H PRN PRN Reason: Cough Hydroxyzine HCl (Hydroxyzine Hcl 50 Mg Tablet) 50 mg PO Q6H PRN PRN Reason: mild anxiety Last Admin: 01/31/25 20:34 Dose: 50 mg Documented By: CRIS Ibuprofen (Ibuprofen 600 Mg Tablet) 600 mg PO Q8H PRN PRN Reason: back pain Insulin Human Lispro (Insulin Lispro 100 Unit/Ml 3 Ml Vial) 0 unit SUBCUT QIDACHS [facility]; Protocol Last Admin: 02/01/25 11:31 Dose: 4 unit Documented By: ELIZ Lactic Acid (Ammonium Lactate 12 % Lotion 226 Gm Bottle) 1 appl TOPICAL DAILY [facility]; Protocol Last Admin: 02/01/25 08:59 Dose: 1 appl Documented By: ELIZ Lamotrigine (Lamotrigine 25 Mg Tablet) 25 mg PO DAILY [facility] Last Admin: 02/01/25 08:55 Dose: 25 mg Documented By: ELIZ Loratadine (Loratadine 10 Mg Tablet) 10 mg PO DAILY [facility] Last Admin: 02/01/25 08:55 Dose: 10 mg Documented By: ELIZ Losartan Potassium (Losartan Potassium 50 Mg Tablet) 100 mg PO DAILY [facility]; Protocol Last Admin: 02/01/25 08:54 Dose: 100 mg Documented By: ELIZ Magnesium Hydroxide (Milk Of Magnesia 30 Ml Oral.Susp) 30 ml PO DAILY PRN PRN Reason: Constipation Magnesium Hydroxide (Milk Of Magnesia 30 Ml Oral.Susp) 30 ml PO DAILY PRN PRN Reason: Constipation Melatonin (Melatonin 3 Mg Tablet) 6 mg PO BEDTIME PRN PRN Reason: Insomnia Melatonin (Melatonin 3 Mg Tablet) 3 mg PO BEDTIME PRN PRN Reason: Sleep Metformin HCl (Metformin Hcl Er 500 Mg Tab.Er.24h) 500 mg PO BID [facility] Last Admin: 02/01/25 08:55 Dose: 500 mg Documented By: ELIZ Methylprednisolone Sodium Succinate (Methylprednisolone Sod Succ 125 Mg/2 Ml Vial) 60 mg IVPUSH Q12H [facility] Last Admin: 02/01/25 04:52 Dose: 60 mg Documented By: CRIS Metoprolol Succinate (Metoprolol Succinate Er 50 Mg Tab.Er.24h) 50 mg PO DAILY [facility]; Protocol Last Admin: 02/01/25 08:55 Dose: 50 mg Documented By: ELIZ Multi-Ingred Cream/Lotion/Oil/Oint (Mineral Oil/Petrolatum,White 113 Gm Jar) 1 appl TOPICAL QID PRN; Protocol PRN Reason: Dry Skin Multi-Ingred Medicated Throat [place] (Throat [place], Medicated 177 Ml Bottle) 1 spray MUCOUS MEM Q2H PRN PRN Reason: Sore Throat Naltrexone HCl (Naltrexone Hcl 50 Mg Tablet) 50 mg PO DAILY [facility] Last Admin: 02/01/25 08:54 Dose: 50 mg Documented By: ELIZ Nicotine (Nicotine 21 Mg Patch.Td24) 21 mg TRANSDERMA DAILY [facility] Last Admin: 02/01/25 08:54 Dose: 21 mg Documented By: ELIZ Nicotine Polacrilex (Nicotine Polacrilex 2 Mg Gum) 4 mg BUCCAL Q2H PRN PRN Reason: Nicotine Cravings Nystatin (Nystatin Oral Susp 500,000 Unit/5 Ml Oral.Susp) 400,000 unit PO QID [facility]; Protocol Last Admin: 02/01/25 14:18 Dose: 400,000 unit Documented By: ELIZ Ondansetron HCl (Ondansetron Odt 4 Mg Tab.Rapdis) 4 mg TRANSLINGU Q8H PRN PRN Reason: Nausea and Vomiting Last Admin: 02/01/25 11:35 Dose: 4 mg Documented By: ELIZ Oseltamivir Phosphate (Oseltamivir Phosphate 75 Mg Capsule) 75 mg PO Q12H [facility] Last Admin: 02/01/25 08:55 Dose: 75 mg Documented By: ELIZ Polyethylene Glycol (Polyethylene Glycol 3350 17 Gm Powd.Pack) 17 gm PO DAILY PRN PRN Reason: Constipation Polyethylene Glycol (Polyethylene Glycol 3350 17 Gm Powd.Pack) 17 gm PO DAILY [facility] Last Admin: 02/01/25 08:54 Dose: 17 gm Documented By: ELIZ Prazosin HCl (Prazosin Hcl 1 Mg Capsule) 4 mg PO BEDTIME [facility]; Protocol Last Admin: 01/31/25 20:34 Dose: 4 mg Documented By: CRIS Senna (Sennosides 8.6 Mg Tablet) 17.2 mg PO BEDTIME [facility] Last Admin: 01/31/25 20:34 Dose: 17.2 mg Documented By: CRIS Sodium Chloride (0.9 % Sodium Chloride Flush 3 Ml Syringe) 3 ml IVFLUSH QSHIFT [facility] Last Admin: 02/01/25 08:56 Dose: 3 ml Documented By: ELIZ Sodium Chloride (Sodium Chloride 0.65 % Nasal 44 Ml Sprbtl) 1 spray NOSTRIL-B Q4H PRN PRN Reason: Nasal Congestion Thiamine HCl (Thiamine Hcl 100 Mg Tablet) 100 mg PO DAILY [facility] Last Admin: 02/01/25 08:55 Dose: 100 mg Documented By: ELIZ Tiotropium [place] (Tiotropium [place] 2.5 Mcg 1 Puff/2.5 Mcg Mist.Inhal) 2 puff INHALE RDAILY [facility] Last Admin: 02/01/25 08:49 Dose: 2 puff Documented By: SIMONE Trazodone HCl (Trazodone Hcl 100 Mg Tablet) 100 mg PO BEDTIME [facility] Last Admin: 01/31/25 20:35 Dose: 100 mg Documented By: CRIS Labs 02/01/25 05:59 02/01/25 06:00 Labs: Laboratory Results - last 24 hr 01/31/25 01/31/25 02/01/25 16:59 20:21 05:59 MCV 84.6 MCH 25.3 L MCHC 29.9 L RDW 13.9 Plt Count 268 MPV 9.9 Immature Gran % (Auto) 0.9 H Neut % (Auto) 75.3 H Lymph % (Auto) 13.5 L [place] % (Auto) 10.1 Eos % (Auto) 0.0 Baso % (Auto) 0.2 Lymph # (Auto) 1.4 [place] # (Auto) 1.0 Eos # (Auto) 0.0 Baso # (Auto) 0.0 Abs Immat Gran (auto) 0.09 H Absolute Neuts (auto) 7.7 Absolute Nucleated RBC 0.000 Nucleated RBC % (auto) 0.0 Anion Gap Estim Creat Clear Calc Estimated GFR POC Glucose 161 H 183 H Random Glucose Calcium Total Bilirubin AST ALT Alkaline Phosphatase Total Protein Albumin 02/01/25 02/01/25 02/01/25 06:00 07:32 11:05 MCV MCH MCHC RDW Plt Count MPV Immature Gran % (Auto) Neut % (Auto) Lymph % (Auto) [place] % (Auto) Eos % (Auto) Baso % (Auto) Lymph # (Auto) [place] # (Auto) Eos # (Auto) Baso # (Auto) Abs Immat Gran (auto) Absolute Neuts (auto) Absolute Nucleated RBC Nucleated RBC % (auto) Anion Gap 12 Estim Creat Clear Calc 197.4 Estimated GFR > 60 POC Glucose 144 H 214 H Random Glucose 153 H Calcium 9.1 Total Bilirubin 0.1 AST 43 H ALT 49 H Alkaline Phosphatase 86 Total Protein 7.6 Albumin 4.5 Assessment and Plan (1) Schizoaffective disorder: Status: Acute (2) Alcohol use disorder: Status: Acute (3) Cannabis use disorder: Status: Acute (4) HTN (hypertension): Status: Acute (5) Type 2 diabetes mellitus: Status: Acute (6) Severe obesity: Status: Acute (7) Gastroesophageal reflux disease: Status: Acute (8) NAFLD (nonalcoholic fatty liver disease): Status: Acute (9) Influenza A: Status: Acute (10) Acute hypoxic respiratory failure: Status: Acute Plan 34-year-old male with past medical history listed below presented to the emergency department with suicidal ideation. Admitted for inpatient psychiatric stabilization. Developed hypoxia and temp 01/31/2025. Positive for influenza A. Now admitted to [facility] for further care and treatment 01/31/25 for acute hypoxic respiratory failure secondary to influenza A. Acute hypoxic respiratory failure secondary to FLU A Solu-Medrol b.i.d. Updraft nebulizers QID while awake Chest x-ray without evidence of pneumonia Continue Tamiflu x9 more doses. Sepsis ruled out due to lactic acid within normal limits. Droplet precautions. Oxygen to maintain sats greater than 90% Schizoaffective disorder/suicidal ideation/substance use disorder/alcohol use disorder We will need CARE team consult when medically stable Type 2 diabetes Continue metformin b.i.d. Continue Mounjaro Recent A1c 5.8 done in August. Insulin sliding scale due to steroid use. Hypertension Continue amlodipine and Cozaar, Toprol Blood pressure stable Severe ESHA on CPAP/Sleep-related hypoxia Patient utilizing CPAP at HS Should use CPAP during nap time or supplemental oxygen to maintain sats greater than 90% GERD Continue Omeprazole to 20 mg b.i.d. Constipation Colace b.i.d. and senna at HS MiraLax daily Encourage water and fiber intake. Code status: Full DVT prophylaxis: Lovenox Total time managing care of this patient today: 35 minutes. Quality Stroke Does the patient have a stroke diagnosis?: No VTE Prior VTE?: No VTE Risk Level:: Medical - moderate - high VTE Device Contraindication: Treatment Not Indicated VTE Drug Contraindication: N/A - Med Ordered
[2025-02-01 16:21] LABS: Glucose, Whole Blood 132 mg/dL (60-115)
[2025-02-01 20:14] LABS: Glucose, Whole Blood 207 mg/dL (60-115)
[2025-02-02] VITALS (9 sets, daily range): BP systolic 127–145; BP diastolic 72–87; PULSE 80–99; RESP 16–18; TEMP 36.1–36.4; O2SAT 91–94
[2025-02-02 07:36] LABS: Glucose, Whole Blood 114 mg/dL (60-115)
[2025-02-02] MEDS: Nicotine 21 MG PATCH.TD24 TRANSDERMA (08:28)
[2025-02-02] MEDS: Erythromycin Base 0.5% Oph Oin 1 GM TUBE 1 CM EYE-RIGHT ×3 (08:29→20:29)
[2025-02-02] MEDS: Nystatin Oral Susp 500,000 UNIT/5 ML ORAL.SUSP 400000 UNIT PO ×4 (08:29→20:29)
[2025-02-02] MEDS: Metoprolol Succinate ER 50 MG TAB.ER.24H PO (08:29)
[2025-02-02] MEDS: Ammonium Lactate 12 % Lotion 226 GM BOTTLE 1 APPL TOPICAL (08:30)
[2025-02-02] MEDS: 0.9 % Sodium Chloride Flush 3 ML SYRINGE IVFLUSH ×3 (08:30→20:29)
[2025-02-02] MEDS: guaiFENesin 200 MG/10 ML 10 ML LIQUID PO (08:38)
[2025-02-02] MEDS: Tiotropium Bromide 2.5 mcg 1 PUFF/2.5 MCG MIST.INHAL 2 PUFF INHALE (09:20)
[2025-02-02] MEDS: Albuterol/Iprat 2.5/0.5MG 3 ML AMPUL.NEB INHALE ×3 (09:20→19:27)
[2025-02-02 11:38] LABS: Glucose, Whole Blood 235 mg/dL (60-115)
--- NOTE | 2025-02-02 13:01 | P.PNIM_ITS ---
Subjective Subjective Date of Service: 02/02/25 Interval History: Reports breathing much easier as compared to yesterday. Patient is close to his clinical baseline. Denies chest pain, dyspnea, phlegm or mucus production. No cough. Utilizing home CPAP by bedside. Review of Systems Review of Systems: Yes all other systems are reviewed and are negative Physical Exam 2 Exam: Exam: General: A&O x3, oriented to time place person and situation, comfortable, no pain, MO habitus Cardiac: S1, S2 auscultated with no S3/4, no MRG. Well perfused. Respiratory: Normal breath sounds auscultated throughout all lung zones, without wheezing, rales. Normal rate. 2 L NC O2 GI/ : No abdominal pain on palpation, no masses or distentions. MSK: Normal ambulation without pain at bony prominences or musculature Neurological: Normal neurological examination on overview, without obvious CN II-XII abnormalities. Vital Signs: Vital Signs: Last Vital Signs Temp 97.2 F 02/02/25 07:10 Pulse 88 02/02/25 09:24 Resp 16 02/02/25 09:24 BP 141/83 H 02/02/25 07:10 Pulse Ox 92 02/02/25 07:10 O2 Del Method Nasal Cannula 02/02/25 07:10 O2 Flow Rate 2 02/02/25 07:10 BMI result Body Mass Index 57.2 Objective Data Active Medications Acetaminophen (Acetaminophen 325 Mg Tablet) 650 mg PO Q6H PRN PRN Reason: Pain, Mild 1-3,fever,headache Last Admin: 02/02/25 10:43 Dose: 650 mg Documented By: ELIZ Al Hydroxide/Mg Hydroxide (Magnesium Hydrox/Alum Hydrox 30 Ml Oral.Susp) 30 ml PO Q6H PRN PRN Reason: Heartburn/Nausea Albuterol Sulfate (Albuterol Sulfate 90 Mcg 8 Gm Inhaler) 1 puff INHALE QID PRN PRN Reason: Wheezing Albuterol/Ipratropium (Albuterol/Iprat 2.5/0.5mg 3 Ml Ampul.Neb) 3 ml INHALE RQ6H WHILE AWAKE REPLACED BY [facility] Last Admin: 02/02/25 09:20 Dose: 3 ml Documented By: GABRIEL Amlodipine Besylate (Amlodipine Besylate 10 Mg Tablet) 10 mg PO DAILY [facility]; Protocol Last Admin: 02/02/25 08:29 Dose: 10 mg Documented By: ELIZ Artificial Tears (Artificial Tears 15 Ml Drops) 2 drop EYE-BOTH Q4H PRN PRN Reason: Dry Eyes Benzocaine (Throat Lozenge, Medicated Lozenge) 1 lozenge MUCOUS MEM Q2H PRN PRN Reason: Sore Throat Benztropine Mesylate (Benztropine Mesylate 1 Mg Tablet) 1 mg PO BID [facility] Last Admin: 02/02/25 08:28 Dose: 1 mg Documented By: ELIZ Calcium Carbonate (Calcium Carbonate 750 Mg Tab.Chew) 750 mg PO Q4H PRN PRN Reason: Heartburn Chlorpromazine HCl (Chlorpromazine Hcl 25 Mg Tablet) 25 mg PO Q6H PRN PRN Reason: anxiety, agitation Clozapine (Clozapine 100 Mg Tablet) 150 mg PO BEDTIME [facility] Last Admin: 02/01/25 20:53 Dose: 150 mg Documented By: CRIS Cyclobenzaprine HCl (Cyclobenzaprine Hcl 10 Mg Tablet) 10 mg PO TID PRN PRN Reason: back muscle spasm Docusate Sodium (Docusate Sodium 100 Mg Capsule) 100 mg PO BID [facility] Last Admin: 02/02/25 08:29 Dose: 100 mg Documented By: ELIZ Duloxetine HCl (Duloxetine Hcl 30 Mg Capsule.Dr) 30 mg PO DAILY [facility] Last Admin: 02/02/25 08:28 Dose: 30 mg Documented By: ELIZ Enoxaparin Sodium (Enoxaparin Sodium 40 Mg/0.4 Ml Syringe) 40 mg SUBCUT Q24H [facility] Last Admin: 02/01/25 16:25 Dose: 40 mg Documented By: ELIZ Erythromycin (Erythromycin Base 0.5% Oph Oin 1 Gm Tube) 1 cm EYE-RIGHT TID REPLACED BY [facility] Last Admin: 02/02/25 08:29 Dose: 1 cm Documented By: ELIZ Folic Acid (Folic Acid 1 Mg Tablet) 1 mg PO DAILY [facility] Last Admin: 02/02/25 08:28 Dose: 1 mg Documented By: LEIZ Gabapentin (Gabapentin 300 Mg Capsule) 300 mg PO TID [facility] Last Admin: 02/02/25 08:29 Dose: 300 mg Documented By: ELIZ Guaifenesin (Guaifenesin 200 Mg/10 Ml 10 Ml Liquid) 10 ml PO Q4H PRN PRN Reason: Cough Last Admin: 02/02/25 08:38 Dose: 10 ml Documented By: ELIZ Hydroxyzine HCl (Hydroxyzine Hcl 50 Mg Tablet) 50 mg PO Q6H PRN PRN Reason: mild anxiety Last Admin: 01/31/25 20:34 Dose: 50 mg Documented By: CRIS Ibuprofen (Ibuprofen 600 Mg Tablet) 600 mg PO Q8H PRN PRN Reason: back pain Insulin Human Lispro (Insulin Lispro 100 Unit/Ml 3 Ml Vial) 0 unit SUBCUT QIDACHS [facility]PL[facility]ED [facility]; Protocol Last Admin: 02/02/25 11:54 Dose: 4 unit Documented By: ELIZ Lactic Acid (Ammonium Lactate 12 % Lotion 226 Gm Bottle) 1 appl TOPICAL DAILY [facility]; Protocol Last Admin: 02/02/25 08:30 Dose: 1 appl Documented By: ELIZ Lamotrigine (Lamotrigine 25 Mg Tablet) 25 mg PO DAILY [facility] Last Admin: 02/02/25 08:29 Dose: 25 mg Documented By: ELIZ Loratadine (Loratadine 10 Mg Tablet) 10 mg PO DAILY [facility] Last Admin: 02/02/25 08:28 Dose: 10 mg Documented By: ELIZ Losartan Potassium (Losartan Potassium 50 Mg Tablet) 100 mg PO DAILY [facility]; Protocol Last Admin: 02/02/25 08:28 Dose: 100 mg Documented By: ELIZ Magnesium Hydroxide (Milk Of Magnesia 30 Ml Oral.Susp) 30 ml PO DAILY PRN PRN Reason: Constipation Magnesium Hydroxide (Milk Of Magnesia 30 Ml Oral.Susp) 30 ml PO DAILY PRN PRN Reason: Constipation Melatonin (Melatonin 3 Mg Tablet) 6 mg PO BEDTIME PRN PRN Reason: Insomnia Melatonin (Melatonin 3 Mg Tablet) 3 mg PO BEDTIME PRN PRN Reason: Sleep Metformin HCl (Metformin Hcl Er 500 Mg Tab.Er.24h) 500 mg PO BID [facility] Last Admin: 02/02/25 08:28 Dose: 500 mg Documented By: ELIZ Methylprednisolone Sodium Succinate (Methylprednisolone Sod Succ 125 Mg/2 Ml Vial) 60 mg IVPUSH Q12H [facility]PLACED BY [facility] Last Admin: 02/02/25 05:11 Dose: 60 mg Documented By: CRIS Metoprolol Succinate (Metoprolol Succinate Er 50 Mg Tab.Er.24h) 50 mg PO DAILY [facility]; Protocol Last Admin: 02/02/25 08:29 Dose: 50 mg Documented By: ELIZ Multi-Ingred Cream/Lotion/Oil/Oint (Mineral Oil/Petrolatum,White 113 Gm Jar) 1 appl TOPICAL QID PRN; Protocol PRN Reason: Dry Skin Multi-Ingred Medicated Throat [place] (Throat [place], Medicated 177 Ml Bottle) 1 spray MUCOUS MEM Q2H PRN PRN Reason: Sore Throat Naltrexone HCl (Naltrexone Hcl 50 Mg Tablet) 50 mg PO DAILY [facility] Last Admin: 02/02/25 08:28 Dose: 50 mg Documented By: ELIZ Nicotine (Nicotine 21 Mg Patch.Td24) 21 mg TRANSDERMA DAILY REPLACED BY [facility] Last Admin: 02/02/25 08:28 Dose: 21 mg Documented By: ELIZ Nicotine Polacrilex (Nicotine Polacrilex 2 Mg Gum) 4 mg BUCCAL Q2H PRN PRN Reason: Nicotine Cravings Last Admin: 02/02/25 10:44 Dose: 4 mg Documented By: ELIZ Nystatin (Nystatin Oral Susp 500,000 Unit/5 Ml Oral.Susp) 400,000 unit PO QID [facility]; Protocol Last Admin: 02/02/25 11:53 Dose: 400,000 unit Documented By: ELIZ Ondansetron HCl (Ondansetron Odt 4 Mg Tab.Rapdis) 4 mg TRANSLINGU Q8H PRN PRN Reason: Nausea and Vomiting Last Admin: 02/02/25 08:47 Dose: 4 mg Documented By: ELIZ Oseltamivir Phosphate (Oseltamivir Phosphate 75 Mg Capsule) 75 mg PO Q12H [facility] Last Admin: 02/02/25 08:29 Dose: 75 mg Documented By: ELIZ Polyethylene Glycol (Polyethylene Glycol 3350 17 Gm Powd.Pack) 17 gm PO DAILY PRN PRN Reason: Constipation Polyethylene Glycol (Polyethylene Glycol 3350 17 Gm Powd.Pack) 17 gm PO DAILY [facility] Last Admin: 02/02/25 08:28 Dose: 17 gm Documented By: ELIZ Prazosin HCl (Prazosin Hcl 1 Mg Capsule) 4 mg PO BEDTIME [facility]; Protocol Last Admin: 02/01/25 20:53 Dose: 4 mg Documented By: CRIS Senna (Sennosides 8.6 Mg Tablet) 17.2 mg PO BEDTIME REPLACED BY [facility] Last Admin: 02/01/25 20:54 Dose: 17.2 mg Documented By: CRIS Sodium Chloride (0.9 % Sodium Chloride Flush 3 Ml Syringe) 3 ml IVFLUSH QSHIFT REPLACED BY [facility] Last Admin: 02/02/25 08:30 Dose: 3 ml Documented By: ELIZ Sodium Chloride (Sodium Chloride 0.65 % Nasal 44 Ml Sprbtl) 1 spray NOSTRIL-B Q4H PRN PRN Reason: Nasal Congestion Thiamine HCl (Thiamine Hcl 100 Mg Tablet) 100 mg PO DAILY REPLACED BY [facility] Last Admin: 02/02/25 08:28 Dose: 100 mg Documented By: ELIZ Tiotropium [place] (Tiotropium [place] 2.5 Mcg 1 Puff/2.5 Mcg Mist.Inhal) 2 puff INHALE RDAILY REPLACED BY [facility] Last Admin: 02/02/25 09:20 Dose: 2 puff Documented By: GABRIEL Trazodone HCl (Trazodone Hcl 100 Mg Tablet) 100 mg PO BEDTIME REPLACED BY [facility] Last Admin: 02/01/25 20:54 Dose: 100 mg Documented By: CRIS Labs 02/01/25 05:59 02/01/25 06:00 Labs: Laboratory Results - last 24 hr 02/01/25 02/01/25 02/02/25 16:16 20:08 07:17 POC Glucose 132 H 207 H 114 02/02/25 11:07 POC Glucose 235 H Assessment and Plan (1) Schizoaffective disorder: Status: Acute (2) Alcohol use disorder: Status: Acute (3) Cannabis use disorder: Status: Acute (4) HTN (hypertension): Status: Acute (5) Diabetes: Status: Acute (6) Type 2 diabetes mellitus: Status: Acute (7) Severe obesity: Status: Acute (8) Influenza A: Status: Acute (9) Acute hypoxic respiratory failure: Status: Acute (10) Obesity hypoventilation syndrome: Status: Acute (11) Obstructive sleep apnea: Status: Inactive (12) Morbid obesity: Status: Inactive Plan 34-year-old male with past medical history listed below presented to the emergency department with suicidal ideation. Admitted for inpatient psychiatric stabilization. Developed hypoxia and temp 01/31/2025. Positive for influenza A. Now admitted to [facility] for further care and treatment 01/31/25 for acute hypoxic respiratory failure secondary to influenza A. Acute hypoxic respiratory failure secondary to FLU A Solu-Medrol b.i.d. Updraft nebulizers QID while awake Chest x-ray without evidence of pneumonia Continue Tamiflu x9 more doses. Sepsis ruled out due to lactic acid within normal limits. Droplet precautions. Oxygen to maintain sats greater than 90% Schizoaffective disorder/suicidal ideation/substance use disorder/alcohol use disorder We will need CARE team consult when medically stable Type 2 diabetes Continue metformin b.i.d. Continue [place] Recent A1c 5.8 done in August. Insulin sliding scale due to steroid use. Hypertension Continue amlodipine and Cozaar, Toprol Blood pressure stable Severe ESHA on CPAP/Sleep-related hypoxia Patient utilizing CPAP at HS Should use CPAP during nap time or supplemental oxygen to maintain sats greater than 90% GERD Continue Omeprazole to 20 mg b.i.d. Constipation Colace b.i.d. and senna at HS MiraLax daily Encourage water and fiber intake. [employer] - Code status: Full - DVT prophylaxis: Lovenox - Disposition: Pending CARE team clearance - discharge home vs return to inpatient psychiatry Total time managing care of this patient today: 35 minutes. Quality Stroke Does the patient have a stroke diagnosis?: No VTE Prior VTE?: No VTE Risk Level:: Medical - moderate - high VTE Device Contraindication: Treatment Not Indicated VTE Drug Contraindication: N/A - Med Ordered
[2025-02-02 16:16] LABS: Glucose, Whole Blood 184 mg/dL (60-115)
--- NOTE | 2025-02-02 17:41 | P.DS_ITS ---
DS: Providers Provider Date of admission: 01/31/25 14:10 Date of discharge: 02/03/25 Primary care physician: Unknown Physician Consults: 02/02/25 12:59 In CARE Team Crisis Consult Routine Comment: Reason for consultation: psychiatric disposition- medically cleared DS: Diagnosis Discharge Diagnosis (1) Schizoaffective disorder: Status: Acute (2) Alcohol use disorder: Status: Acute (3) Cannabis use disorder: Status: Acute (4) HTN (hypertension): Status: Acute (5) Diabetes: Status: Acute (6) Type 2 diabetes mellitus: Status: Acute (7) Severe obesity: Status: Acute (8) Influenza A: Status: Acute (9) Acute hypoxic respiratory failure: Status: Acute (10) Obesity hypoventilation syndrome: Status: Acute (11) Obstructive sleep apnea: Status: Inactive (12) Morbid obesity: Status: Inactive DS: Summary Hospital Course Hospital Course: 34-year-old male with schizoaffective disorder, type 2 diabetes, hypertension, severe obesity, ESHA, and substance use disorders, admitted initially for suicidal ideation and psychosis, subsequently developed acute hypoxic respiratory failure secondary to Influenza A, managed on the medical floor with steroids, antivirals, and supportive care; now medically and psychiatrically stabilized, cleared for discharge with outpatient follow-up. Problem List with Clinical Course and Plan 1.?Acute Hypoxic Respiratory Failure secondary to Influenza A * Course:?Developed fever, hypoxia, and respiratory distress during psychiatric admission; positive for Influenza A; required transfer to medical floor. Treated with steroids (methylprednisolone/prednisone), oseltamivir, and supportive oxygen. No evidence of bacterial pneumonia or sepsis. Gradual improvement in respiratory status; now stable on room air/2L NC, no distress. * Plan: * Complete oseltamivir course if not already finished. * Taper and discontinue steroids as per protocol. * Continue inhaled bronchodilators as needed for wheezing. * Encourage use of incentive spirometry at home. * Monitor for recurrence of respiratory symptoms; follow up with PCP for any new or worsening symptoms. * Outpatient follow-up for 6 mm left lower lobe pulmonary nodule (repeat CT in 6-12 months due to smoking history). 2.?Schizoaffective Disorder / Suicidal Ideation / Substance Use Disorders (Alcohol, Cannabis) * Course:?Presented with SI and command AH; history of medication nonadherence. Restarted home antipsychotic regimen (clozapine, chlorpromazine, benztropine, etc.) with improvement in mood and resolution of SI/AH. Cleared by CARE team for discharge; plans in place for VNA and outpatient psychiatry/therapy. * Plan: * Continue current psychiatric medication regimen as prescribed. * Ensure VNA follow-up for medication management. * Outpatient follow-up with [facility] [place][NOTE 3] Psychiatry and therapist (contact info provided). * Safety plan reviewed and provided; patient/family educated on crisis resources. * Encourage ongoing substance use counseling and harm reduction. 3.?Type 2 Diabetes Mellitus * Course:?Well-controlled prior to admission (A1c 5.8% in August); mild hyperglycemia during steroid therapy, managed with metformin, tirzepatide (Mounjaro), and sliding scale insulin as needed. * Plan: * Continue metformin 500 mg BID and tirzepatide as home regimen. * Monitor blood glucose at home, especially if steroids continued. * Resume sliding scale insulin only if hyperglycemia persists. * Outpatient follow-up for diabetes management. 4.?Hypertension * Course:?Chronic, well-controlled on amlodipine, losartan, and metoprolol; no hypertensive emergencies during admission. * Plan: * Resume home antihypertensive regimen (amlodipine 10 mg daily, losartan 100 mg daily, metoprolol succinate 50 mg daily). * Monitor BP at home; hold medications for SBP <90. * Outpatient follow-up for ongoing management. 5.?Severe Obesity / Obesity Hypoventilation Syndrome / ESHA * Course:?BMI >57; known ESHA on home CPAP, used during hospitalization. No acute obesity-related complications. * Plan: * Continue nightly CPAP use; encourage use during naps if needed. * Weight management counseling and referral to [facility] as outpatient. * Monitor for symptoms of hypoventilation or worsening ESHA. 6.?Constipation * Course:?Chronic, managed with bowel regimen; no evidence of ileus or obstruction. * Plan: * Continue docusate, senna, and polyethylene glycol as needed. * Encourage high fiber diet and adequate hydration. * Outpatient follow-up if symptoms persist. 7.?Gastroesophageal Reflux Disease (GERD) * Course:?Chronic, no acute exacerbation during admission. * Plan: * Continue omeprazole 20 mg BID. * Avoid late meals and known triggers. 8.?Nonalcoholic Fatty Liver Disease (NAFLD) / Mild Transaminitis * Course:?Mildly elevated AST/ALT at baseline; no evidence of acute liver injury. * Plan: * Monitor LFTs as outpatient. * Floor Associate on weight loss and avoidance of hepatotoxins. 9.?Pulmonary Nodule (Incidental) * Course:?6 mm left lower lobe nodule found on CT; high risk due to smoking. * Plan: * Outpatient repeat chest CT in 6-12 months. * Smoking cessation counseling. 10.?Other Chronic Psychiatric and Medical Issues * Course:?Anxiety, depression, history of multiple psychiatric admissions, substance use. * Plan: * Continue current psychiatric medications. * Outpatient follow-up with mental health providers. * Safety plan and crisis resources provided. Status at Discharge Functional status at discharge: independent ambulation Overall status at discharge: patient is back to baseline Time Attestation Total time managing care of this patient today: 45 mintues. Discharge Coordination Time (in mins): 35 Quality: Safe Use of Opioids Does Pt have an Active Cancer Diagnosis on the Problem List?: No Quality: Stroke Does the patient have a stroke diagnosis?: No Physical Exam Exam: Exam: General: male, MO habitus, appears stated age, alert and oriented ?3, in no acute distress. Conversant and cooperative. HEENT: * Normocephalic, atraumatic * Pupils equal, round, reactive to light * Extraocular movements intact * Sclera anicteric, conjunctivae pink * Oropharynx clear, moist mucous membranes, no lesions * No thyromegaly or lymphadenopathy Neck: * Supple, no JVD, no carotid bruits * Trachea midline Cardiovascular: * Regular rate and rhythm * Normal S1, S2, no murmurs, rubs, or gallops * No peripheral edema Respiratory: * Lungs clear to auscultation bilaterally * No rales, wheezes, or rhonchi * No increased work of breathing * Good air movement * No use of accessory muscles Abdomen: * Obese, soft, non-tender, non-distended * Normoactive bowel sounds * No hepatosplenomegaly * No rebound or guarding Extremities: * No cyanosis, clubbing, or edema * Peripheral pulses 2+ and symmetric * No calf tenderness Skin: * Warm, dry, intact * No rashes, ulcers, or lesions Neurologic: * Alert and oriented ?3 * Cranial nerves II-XII grossly intact * Strength 5/5 throughout * Sensation intact to light touch * No tremor or abnormal movements * Gait not directly assessed (if bedbound, note as such) Psychiatric: * Mood euthymic * Affect appropriate * Thought process linear * No evidence of acute psychosis or suicidal ideation * Insight and judgment fair Vital Signs: Vital Signs: Last Vital Signs Temp 97.6 F 02/02/25 15:41 Pulse 98 02/02/25 15:41 Resp 16 02/02/25 15:41 BP 145/72 H 02/02/25 15:41 Pulse Ox 93 02/02/25 15:41 O2 Del Method Room Air 02/02/25 15:41 O2 Flow Rate 2 02/02/25 07:10 BMI result Body Mass Index 57.2 DS: Data Data Completed and Pending Labs on day of discharge: Laboratory Results - last 24 hr 02/01/25 02/02/25 02/02/25 20:08 07:17 11:07 POC Glucose 207 H 114 235 H 02/02/25 16:04 POC Glucose 184 H Discharge Plan Discharge Anticipated Discharge Date/Time: 02/03/25 09:02 Patient Disposition: Home, Self-Care Discharge Diagnosis: Acute hypoxic respiratory failure 2/2 influenza a Referrals: Physician,Unknown J [Primary Care Provider, Medical] - 1 Week Discharge Medications: Continued losartan 50 mg Tablet 100 mg PO DAILY Qty: 60 0RF Protocol: Hold for SBP< HOLD for SBP < : 90 nicotine (polacrilex) 2 mg Gum 4 mg buccal Q2H PRN (Reason: Nicotine Cravings) Qty: 200 0RF prazosin 1 mg Capsule 4 mg PO BEDTIME Qty: 120 0RF Protocol: Hold for SBP< HOLD for SBP < : 90 chlorpromazine 25 mg Tablet 25 mg PO Q6H PRN (Reason: anxiety, agitation) Qty: 90 0RF benztropine 1 mg Tablet 1 mg PO BID Qty: 60 0RF duloxetine 30 mg Capsule,Delayed Release(Dr/Ec) 30 mg PO DAILY Qty: 30 0RF polyethylene glycol 3350 17 gram Powder In Packet 17 g PO DAILY Qty: 30 0RF naltrexone 50 mg Tablet 50 mg PO DAILY Qty: 30 0RF docusate sodium 100 mg Capsule 100 mg PO BID Qty: 60 0RF gabapentin 300 mg Capsule 300 mg PO TID Qty: 90 0RF hydroxyzine HCl 25 mg Tablet 50 mg PO Q6H PRN (Reason: mild anxiety) Qty: 60 0RF ibuprofen 600 mg Tablet 600 mg PO Q8H PRN (Reason: back pain) Qty: 30 0RF Artificial Tears([id number]) 1-0.2-0.2 % Drops 2 drp ophthalmic (eye) Q4H PRN (Reason: Dry Eyes) Qty: 10 0RF Sore Throat (benzocaine-menth) 15-3.6 mg Lozenge 1 evelyn mucous membrane Q2H PRN (Reason: Sore Throat) Qty: 30 0RF sennosides [Senna Lax] 8.6 mg Tablet 17.2 mg PO BEDTIME Qty: 30 0RF folic acid 1 mg Tablet 1 mg PO DAILY Qty: 30 0RF Eucerin Cream 1 appl topical QID PRN (Reason: Dry Skin) Qty: 226 0RF Protocol: Apply to: Apply to: affected areas thiamine mononitrate (vit B1) 100 mg Tablet 100 mg PO DAILY Qty: 30 0RF cyclobenzaprine 10 mg Tablet 10 mg PO TID PRN (Reason: back muscle spasm) 30 Days Qty: 90 0RF metoprolol succinate 50 mg tablet extended release 24 hr 50 mg PO DAILY Qty: 30 0RF melatonin 3 mg Tablet 3 mg PO BEDTIME PRN (Reason: Sleep) Qty: 30 0RF lamotrigine 25 mg Tablet 25 mg PO DAILY Qty: 30 0RF trazodone 100 mg tablet 100 mg PO BEDTIME Qty: 30 0RF amlodipine 10 mg tablet 10 mg PO DAILY Qty: 30 0RF nicotine 21 mg/24 hr Patch 24 Hour 1 patch TRANSDERMAL DAILY Qty: 30 0RF albuterol sulfate 90 mcg/actuation Hfa Aerosol Inhaler 1 inh INHALATION QID PRN (Reason: Wheezing) Qty: 1 0RF metformin 500 mg tablet extended release 24 hr 500 mg PO BID Qty: 60 0RF loratadine 10 mg Tablet 10 mg PO DAILY Qty: 30 0RF Incruse Ellipta 62.5 mcg/actuation Blister With Device 1 inh INHALATION DAILY Qty: 1 0RF ondansetron 4 mg Tablet,Disintegrating 4 mg PO Q8H PRN (Reason: Nausea And Vomiting) ammonium lactate 12 % Lotion 1 appl TOPICAL DAILY Mounjaro 2.5 mg/0.5 mL pen injector 2.5 mg subcut SA acetaminophen 325 mg Tablet 650 mg PO Q6H PRN (Reason: Headache/Pain, Scale 1-10) Qty: 0 0RF ipratropium-albuterol 0.5 mg-3 mg(2.5 mg base)/3 mL Solution For Nebulization 3 ml inhalation RQ6H WHILE AWAKE Qty: 0 0RF clozapine 25 mg Tablet 150 mg PO BEDTIME Qty: 0 0RF nystatin 100,000 unit/mL Suspension 400,000 unit PO QID Qty: 0 0RF guaifenesin 100 mg/5 mL Liquid 100 mg PO Q4H PRN (Reason: Cough) Qty: 1000 0RF magnesium hydroxide [Milk of Magnesia] 400 mg/5 mL Suspension 30 ml PO DAILY PRN (Reason: Constipation) Qty: 0 0RF erythromycin 5 mg/gram (0.5 %) Ointment 1 cm ophthalmic-Right TID Qty: 0 0RF Chloraseptic Throat [place] 1.4 % Aerosol,[place] 1 spray mucous membrane Q2H PRN (Reason: Sore Throat) Qty: 0 0RF [place] Nasal 0.65 % Aerosol,[place] 1 spray intranasal Q4H PRN (Reason: Nasal Congestion) Qty: 0 0RF MAG-AL 200-200 mg/5 mL Suspension 30 ml PO Q6H PRN (Reason: Heartburn/Nausea) Qty: 0 0RF prednisone 20 mg Tablet 40 mg PO DAILY 7 Days Qty: 14 0RF oseltamivir [Tamiflu] 75 mg Capsule 75 mg PO Q12H 3 Days Qty: 6 0RF Discharge Orders: Discharge Order (Routine); Ordered 02/03/25 Ordered By: Chase Fallon Diet: Advance to usual diet Activity on Discharge: As tolerated Stand Alone Forms: Patient Portal Discharge page Print Language: Kazakh Care Plan Goals: As above Health Concerns: As above Plan of Treatment: As above Assessment: Hemodynamically stable for discharge, psychiatrically cleared for SI
--- NOTE | 2025-02-02 19:11 | PC.NURSE ---
Essence Eisenberg at bedside, [facility] through [facility] [phone], requesting CM to touch base with her before discharge.
[2025-02-02 19:55] LABS: Glucose, Whole Blood 226 mg/dL (60-115)
[2025-02-03 03:20] VITALS: BP 118/62; PULSE 100; RESP 18; TEMP 36.2; O2SAT 94
[2025-02-03 07:32] LABS: Glucose, Whole Blood 95 mg/dL (60-115)
[2025-02-03] MEDS: Albuterol/Iprat 2.5/0.5MG 3 ML AMPUL.NEB INHALE (07:35)
[2025-02-03 07:38] VITALS: PULSE 95; RESP 18; O2SAT 99
[2025-02-03] MEDS: Tiotropium Bromide 2.5 mcg 1 PUFF/2.5 MCG MIST.INHAL 2 PUFF INHALE (07:38)
[2025-02-03] MEDS: Nystatin Oral Susp 500,000 UNIT/5 ML ORAL.SUSP 400000 UNIT PO (07:42)
[2025-02-03] MEDS: 0.9 % Sodium Chloride Flush 3 ML SYRINGE IVFLUSH (07:43)
[2025-02-03] MEDS: Erythromycin Base 0.5% Oph Oin 1 GM TUBE 1 CM EYE-RIGHT (07:43)
[2025-02-03] MEDS: Metoprolol Succinate ER 50 MG TAB.ER.24H PO (07:43)
[2025-02-03] MEDS: Ammonium Lactate 12 % Lotion 226 GM BOTTLE 1 APPL TOPICAL (07:45)
[2025-02-03 07:56] VITALS: PULSE 91; RESP 18; TEMP 36.3; O2SAT 95
[2025-02-03 09:28] VITALS: BP 160/100; PULSE 94; RESP 18; TEMP 36.2; O2SAT 90
== END 2025-02-03 09:38 | disposition home health service (06) | DRG 193 ==
PROVIDERS: Admitting Provider Nurse Practitioner Family; PCP Internal Medicine; Visit Provider Hospitalist
DX: J10.1 Influenza due to other identified influenza virus with other respiratory manifestations (principal); J96.01 Acute respiratory failure with hypoxia; R45.851 Suicidal ideations; E66.2 Morbid (severe) obesity with alveolar hypoventilation; Z68.43 Body mass index [BMI] 50.0-59.9, adult; F25.9 Schizoaffective disorder, unspecified; K59.00 Constipation, unspecified; K21.9 Gastro-esophageal reflux disease without esophagitis; F19.90 Other psychoactive substance use, unspecified, uncomplicated; F10.90 Alcohol use, unspecified, uncomplicated; E11.9 Type 2 diabetes mellitus without complications; R91.1 Solitary pulmonary nodule; K76.0 Fatty (change of) liver, not elsewhere classified; I10 Essential (primary) hypertension; Z71.3 Dietary counseling and surveillance; F17.210 Nicotine dependence, cigarettes, uncomplicated; Z71.6 Tobacco abuse counseling; Z79.84 Long term (current) use of oral hypoglycemic drugs; Z79.85 Long-term (current) use of injectable non-insulin antidiabetic drugs; Z79.899 Other long term (current) drug therapy
CPT/HCPCS: 36415; 80053; 82550; 82947; 85025; 94640; J1650; J2919; S9485

== ENCOUNTER → 2025-01-31 14:10 | Outpatient (BNV) | payer OTHER, SELFPAY | PROVIDERS: Admitting Provider Nurse Practitioner Family; Visit Provider Hospitalist | DX: J96.01 Acute respiratory failure with hypoxia (principal) | CPT/HCPCS: 99222; 99232 ==